=== PATIENT | female | born 1955 | race Caucasian/White ===

== ENCOUNTER 2018-01-08 11:45 | Outpatient (REF) | payer BC, SELFPAY ==
[2018-01-08 23:28] LABS: Cholesterol 207 mg/dL (50-200); HDL Cholesterol 63 mg/dL (40-60); LDL CHOLESTEROL 131 mg/dL (<100); Triglyceride 142 mg/dL (30-150)
== END 2018-01-08 12:05 ==
LOC: NCHCN 11:45
PROVIDERS: PCP Physician Assistant Medical; Visit Provider Physician Assistant Medical
DX: Z00.00 Encounter for general adult medical examination without abnormal findings (principal); Z13.220 Encounter for screening for lipoid disorders
CPT/HCPCS: 80061; 83721

== ENCOUNTER 2018-09-03 14:01 | Outpatient (CLI) | payer BC, SELFPAY ==
[2018-09-03 15:24] LABS: Ferritin 51 ng/mL (8-388)
[2018-09-04 09:58] LABS: Hepatitis C Ab w Rflx HCV PCR Negative (NEGAT)
[2018-09-04 10:57] LABS: HBs Antibody, Quant 13.7 mIU/mL; Hepatitis B Surface Ab Positive
[2018-09-04 11:11] LABS: Hep B Core Antibody Negative (NEGAT)
[2018-09-04 11:29] LABS: Hepatitis B Surface Ag Negative (NEGAT)
== END 2018-09-03 14:21 ==
PROVIDERS: PCP Physician Assistant Medical; Visit Provider Internal Medicine Gastroenterology
DX: K76.0 Fatty (change of) liver, not elsewhere classified (principal)
CPT/HCPCS: 36415; 86704; 86706; 86803; 87340; 82728

== ENCOUNTER 2018-10-24 00:35 | Outpatient (CLI) | payer BC, SELFPAY ==
--- NOTE | 2018-10-24 12:00 | DI.US_ITS ---
SYMPTOMS/DIAGNOSIS: KIDNEY STONES, N20.0, RENAL CYSTS, N28.1 RENAL ULTRASOUND: Comparison is made with CT of the abdomen dated August,. The exam is limited by patient body habitus. The right kidney measures 10.1 cm in length. The left kidney measures 10.0 cm in length. There is normal parenchymal thickness and echogenicity. There is a 10 mm cyst near the lower pole of the right kidney. No calcifications or hydronephrosis is seen. There are no perinephric collections. The prevoid bladder volume measures 238 cc. There is a 5 cc postvoid residual. Both ureteral jets were visualized. No bladder mass or wall thickening is seen. Fatty infiltration of the liver is noted. IMPRESSION: A 10 mm cyst at the lower pole of the right kidney. No stones or hydronephrosis are visible.
== END 2018-10-24 00:55 ==
PROVIDERS: PCP Physician Assistant Medical; Visit Provider Nurse Practitioner Gerontology
DX: N20.0 Calculus of kidney (principal); N28.1 Cyst of kidney, acquired; K76.0 Fatty (change of) liver, not elsewhere classified
CPT/HCPCS: 76770

== ENCOUNTER 2018-11-12 21:27 | Outpatient (REF) | payer BC, SELFPAY | END 2018-11-12 21:47 | LOC: NCHCN 21:27 | PROVIDERS: PCP Physician Assistant Medical; Visit Provider Physician Assistant Medical | DX: R10.9 Unspecified abdominal pain (principal); E03.9 Hypothyroidism, unspecified | CPT/HCPCS: 84443; 87086 ==

== ENCOUNTER 2018-11-19 00:50 | Outpatient (CLI) | payer BC, SELFPAY ==
--- NOTE | 2018-11-19 09:26 | DI.RAD_ITS ---
EXAM: XR LUMBAR SPINE COMPLETE INDICATION: BACK PAIN M54.9. COMPARISON: No exams were available for comparison TECHNIQUE: 2D digital imaging was performed. FINDINGS: There are 5 lumbar type vertebral bodies. There is normal alignment. No spondylolysis or spondyloli sthesis is present. No acute fracture or subluxation is present. There are small endplate osteophyt es present throughout the lumbar spine. Disc heights are well maintained. Mild degenerative changes are seen at the facets from L3-4 through L5-S1 IMPRESSION: Degenerative changes in the lumbar spine.
== END 2018-11-19 01:10 ==
PROVIDERS: PCP Physician Assistant Medical; Visit Provider Physician Assistant Medical
DX: M54.5 Low back pain (principal); M47.816 Spondylosis without myelopathy or radiculopathy, lumbar region
CPT/HCPCS: 72110

== ENCOUNTER 2018-11-26 08:48 | Day surgery (SDC) | payer BC, SELFPAY ==
--- NOTE | 2018-11-26 06:56 | W.COLOREPORT ---
Date of service: 11/26/18 Time of Service: 09:56 Colonoscopy Report Date of procedure: 11/26/18 Pre-op diagnosis general: Colon Cancer Screening Post-op diagnosis procedure note: same Procedure: Colonoscopy Surgeon: Dotty Street Anesthesia proc note operative: other (general/ ASA 2/Valentín Ruiz, ZEB) Estimated blood loss (mL): 0 Pathology: none sent Complications: None Disposition: same day Indications: Mrs. Marx is a pleasant 63 year old female seen in the office for a screening Colonoscopy. Risks, benefits and complications have been reviewed. Complications include but are not limited to bleeding, pain, perforation, missed small lesion/polyp, sore throat, aspiration and adverse reaction to the medications. Questions were entertained and answered to their satisfaction and they wished to proceed. No guarantees were given or implied. Prep: Miralax/Dulcolax Procedure Start Time: :56 Procedure End Time: 10:14 Retraction Time: 12 minutes Findings: Descending and sigmoid diverticulosis Procedure Description: After informed consent was obtained the patient was taken to the procedure room and placed in a left decubitous position. Monitors were applied and a time out was done. The patients name, date of , procedure, allergies to medications and metal in their body was reviewed. The patient was then sedated. Once sedated and comfortable a rectal exam was done. External exam was normal. Internal exam revealed a normal sphincter tone and no palpable masses. The scope was then introduced and retro-flexed. No internal hemorrhoids, masses or polyps were identified on retro-flexion. The scope was then advanced to the cecum without difficulty. The TI and appendiceal orifice were identified. The prep was good. The scope was then slowly retracted over 12 minutes back into the rectum. There were no polyps identified. There was moderate diverticulosis of the descending and sigmoid colon. The scope was removed and the patient was woken up and taken back to Same day surgery in stable condition. The patient tolerated the procedure well and there were no immediate complications. Follow up: The patient should follow up in 10 years unless they develop changes in bowel habits or other new gastrointestinal complaints.
--- NOTE | 2018-11-26 06:58 | W.PM.DSUDISC ---
Discharge Plan Disposition Patient Disposition: HOME Condition: Good Discharge Details Reason For Visit: Colon Cancer Screening Attending Provider: Dotty Street Primary Care Provider: Christine Fuentes Home Meds and New Rx's Prescriptions: Continued Adult 50+ Probiotic 4 billion cell capsule 4,000 mmu cells PO DAILY RF: 0 aspirin [Aspir-81] 81 MG tablet,delayed release (DR/EC) 81 mg PO DAILY RF: 0 levothyroxine 75 MCG tablet 88 mcg PO DAILY RF: 0 amitriptyline 10 MG tablet 20 mg PO DAILY RF: 0 escitalopram oxalate [Lexapro] 10 MG tablet 10 mg PO DAILY RF: 0 multivitamin [Daily Multi-Vitamin] 1 EACH tablet 1 ea PO DAILY RF: 0 fish oil-dha-epa 1 EACH capsule 1 ea PO DAILY RF: 0 cholecalciferol (vitamin D3) [Vitamin D3] 2,000 UNIT capsule 2,000 unit PO DAILY RF: 0 magnesium citrate 100 MG tablet 200 mg PO DAILY RF: 0 bupropion HCl [Wellbutrin] 75 MG tablet 100 mg PO DAILY RF: 0 Discontinued polyethylene glycol 3350 17 gram/dose powder 238 g PO ONCE Qty: 238 RF: 0 bisacodyl [Dulcolax (bisacodyl)] 5 mg tablet,delayed release (DR/EC) 5 mg PO ONCE Qty: 4 RF: 0 Discharge Instructions Instructions: Colonoscopy (DC), Diverticulosis (DC) Additional Instructions: Findings: Diverticulosis Follow up: 10 years Please call if you develop: fevers >101.5 Nausea or Vomiting Abdominal pain that is not transient DAY SURGERY UNIT POST ENDOSCOPY INSTRUCTIONS 1. Because there will be medication in your system for the next 24 hours, you may feel a little sleepy. Your coordination will be affected. Therefore: a. Do not drive or operate dangerous equipment for 24 hours. b. Do not drink alcohol beverages for 24 hours (not even beer). c. Plan to go home and rest for the day. 2. Generally there are no restrictions on your activity after a day or so has gone by, but you may feel a bit fatigued for a few days. 3 After you arrive home you may have a light meal and return to a normal diet as you can tolerate it without feeling sick to your stomach. 4. After surgery, you may feel pain or discomfort. This should be only transient, but if it persists please contact your doctor. 5. If there are any questions regarding the findings of your procedure, please feel free to contact your doctor. 6. If you are unable to contact your doctor with a problem, contact the hospital at [phone]. 7. Continue all your regular medications unless directed otherwise. I understand the above instructions and have no questions. Signature of Patient or Responsible Adult Escort Date/Time Name of Responsible Adult Escort Signature of Nurse Date/Time Activity:: Activity as Tolerated Diet:: High Fiber diet Discharge Orders Discharge Orders: Discharge Order (Routine); Ordered 11/26/18 Ordered By: Dotyt Street DS: Diagnosis Discharge Diagnosis (1) S/P colonoscopy: Status: Acute (2) Diverticulosis: Status: Acute
[2018-11-26 09:01] VITALS: BP 125/91; PULSE 86; RESP 16; TEMP 35.7; O2SAT 96
[2018-11-26] MEDS: Lactated Ringers 1,000 ML 80 ML IV (09:29)
[2018-11-26 10:52] VITALS: BP 117/87; PULSE 81; RESP 16; TEMP 36.2; O2SAT 96
== END 2018-11-26 11:10 | disposition home or self-care (01) ==
LOC: SUR 08:48
PROVIDERS: PCP Physician Assistant Medical; Visit Provider Surgery
PROC: 0DJD8ZZ Inspection of Lower Intestinal Tract, Via Natural or Artificial Opening Endoscopic (ICD-10-PCS; CPT 45378; principal; 2018-11-26 10:15)
DX: Z12.11 Encounter for screening for malignant neoplasm of colon (principal)
CPT/HCPCS: 45378; J2250; J3010

== ENCOUNTER 2019-01-14 10:44 | Outpatient (REF) | payer BC, SELFPAY ==
[2019-01-14 22:28] LABS: ALT 45 U/L (14-59); AST 26 U/L (15-37); Albumin 3.9 g/dL (3.4-5.0); Alkaline Phosphatase 74 U/L (46-116); Anion Gap 11.4 mmol/L (3-11); BUN 19 mg/dL (7-18); Bilirubin, Total 0.3 mg/dL (0.2-1.0); CO2 24.6 mmol/L (21.0-32.0); CREATININE 0.99 mg/dL (0.55-1.02); Calcium 9.2 mg/dL (8.5-10.1); Calculated LDL 142 mg/dL; Chloride 107 mmol/L (98-107); Cholesterol 228 mg/dL (<200); Estimated GFR 56.84 (mL/min/1.73m2); Glucose 95 mg/dL (74-106); HDL Cholesterol 61 mg/dL (40-60); Potassium 4.4 mmol/L (3.5-5.1); Sodium 143 mmol/L (136-145); Total Protein 7.7 g/dL (6.4-8.2); Triglyceride 129 mg/dL (<150)
== END 2019-01-14 11:04 ==
LOC: NCHCN 10:44
PROVIDERS: PCP Physician Assistant Medical; Visit Provider Physician Assistant Medical
DX: Z00.00 Encounter for general adult medical examination without abnormal findings (principal); Z13.220 Encounter for screening for lipoid disorders
CPT/HCPCS: 80053; 80061

== ENCOUNTER 2019-04-15 14:47 | Outpatient (REF) | payer BC, SELFPAY ==
[2019-04-15 19:58] LABS: Bilirubin Negative (Negative); Blood Small (Negative); Clarity Clear (Clear); Glucose Negative (Negative); Ketones Negative (Negative); Leukocyte Esterase Trace (Negative); Nitrite Negative (Negative); Specific Gravity >= 1.030 (1.005-1.025); Urobilinogen 0.2 EU/dL (Up TO 0.2)
[2019-04-15 20:00] LABS: C & S Indicated? C&S Done As Ordered
[2019-04-15 20:03] LABS: Anion Gap 12.4 mmol/L (3-11); BUN 20 mg/dL (7-18); CO2 23.6 mmol/L (21.0-32.0); Calcium 9.3 mg/dL (8.5-10.1); Calculated LDL 105 mg/dL (<100); Chloride 106 mmol/L (98-107); Cholesterol 205 mg/dL (<200); Glucose 96 mg/dL (74-106); HDL Cholesterol 65 mg/dL (40-60); Potassium 4.5 mmol/L (3.5-5.1); Sodium 142 mmol/L (136-145); Triglyceride 176 mg/dL (<150)
[2019-04-15 20:09] LABS: Bacteria Few HPF (Negative); Casts Negative LPF (Negative); Crystals Moderate Amorphous HPF (Negative); Epithelial Cells Many HPF (Negative); Mucus Negative (Negative)
== END 2019-04-15 15:07 ==
LOC: NCHCN 14:47
PROVIDERS: PCP Physician Assistant Medical; Visit Provider Nurse Practitioner Family
DX: R10.9 Unspecified abdominal pain (principal); Z13.220 Encounter for screening for lipoid disorders
CPT/HCPCS: 80048; 80061; 81003; 81015; 87086

== ENCOUNTER 2019-06-20 20:18 | Emergency (ER) | payer BC, SELFPAY ==
[2019-06-20 20:22] VITALS: BP 158/104; PULSE 94; RESP 14; TEMP 36.9; O2SAT 95
--- NOTE | 2019-06-20 20:39 | W.ED.GENAD ---
Discharge Plan Disposition Patient Disposition: HOME Condition: Stable Discharge Details Chief Complaint: EyeProblem Clinical Impression: Subconjunctival hemorrhage of left eye Primary Care Provider: Christine Fuentes ED Provider: Yael Hodge Home Meds and New Rx's Prescriptions: Continued Adult 50 Plus Probiotic 4 billion cell capsule 4,000 mmu cells PO DAILY RF: 0 aspirin [Aspir-81] 81 MG tablet,delayed release (DR/EC) 81 mg PO DAILY RF: 0 levothyroxine 75 MCG tablet 88 mcg PO DAILY RF: 0 amitriptyline 10 MG tablet 20 mg PO DAILY RF: 0 escitalopram oxalate [Lexapro] 10 MG tablet 10 mg PO DAILY RF: 0 multivitamin [Daily Multi-Vitamin] 1 EACH tablet 1 ea PO DAILY RF: 0 fish oil-dha-epa 1 EACH capsule 1 ea PO DAILY RF: 0 cholecalciferol (vitamin D3) [Vitamin D3] 2,000 UNIT capsule 2,000 unit PO DAILY RF: 0 magnesium citrate 100 MG tablet 200 mg PO DAILY RF: 0 bupropion HCl [Wellbutrin] 75 MG tablet 100 mg PO DAILY RF: 0 Liver Complex 250-250 mg Tablet PO DAILY RF: 0 Discharge Instructions Instructions: Subconjunctival Hemorrhage (ED) Additional Instructions: Consider cool compresses to your eye. Avoid irritating rubbing your eye. Expect resolution in the next 2 to 3 weeks. For any vision change, eye pain, drainage from the eye, worsening or alarming symptoms have immediate reevaluation in the emergency room as discussed. Return sooner if needed Medical Decision Making This is a 64-year-old patient presenting to the emergency room for complaints of a mild sensation of foreign body in left eye then patient rubbed her eye, looked in the mirror and noted an area of blood on the medial aspect of her left eye. Patient denies any vision changes, eye pain, headaches or dizziness. Denies any hypertensive symptoms at this time. On exam patient is a notable left subconjunctival hemorrhage with chemosis. Patient's visual acuity preformed. Patient's extraocular motions intact, PERRLA. Funduscopic exam is normal. Patient denies any history of easy bleeding or bruising. Patient does take a daily aspirin. Denies any obvious trauma outside of rubbing her eye. Patient does report feeling extremely anxious regarding coming to the emergency room and does report some underlying anxiety regarded Covid isolation. Patient's only medication change recently was increasing her magnesium from 200 mg daily to 600 mg daily to help assist with some difficulty sleeping at night due to anxiety. On initial exam patient does have a notable sub-conjunctiva hemorrhage. Patient's visual acuity is 20/40 bilaterally. Patient is noted to be mildly hypertensive at 158/104 with a heart rate of 94 on evaluation but again reports feeling quite anxious reports she is typically normotensive and takes no blood pressure medications. Her daily medications were reviewed. We will plan to recheck blood pressure. Dr. Reyes did also evaluate this patient; patient exam consistent with subconjunctival hemorrhage with chemosis. Recommended compresses and conservative treatment. Patient's blood pressure reevaluated and noted to be 140/95 heart rate improved to 88. Nothing to indicate hypertensive emergency at this time. Blood pressure improved likely mildly elevated on arrival due to anxiety. Likely spontaneous of conjunctival hemorrhage to the use of aspirin or secondary to rubbing her eye. we will plan to discharge home with recommendation for cool compresses, sensation of improvement in the next few weeks and return for any worsening or concerns. Patient refused plan of care. The patient was stable and requested discharge. Prior to discharge, my usual and customary return precautions were reviewed with the patient - this included follow-up instructions and reasons to return to the Emergency Department if conditions worsens, does not improve as expected, or other new concerns arise. HPI General Date/Time Provider Initiated Documentation: 06/20/19 20:18. HPI Narrative: Is a 64-year-old patient presenting to the emergency room for 1 hour of concerns of left eye. Patient reports she was sitting in her chair rubbed her eye after noting mild foreign body sensation. Patient looked in the mirror and noted an area of swelling and a blood spot to the medial aspect of her left eye. Patient denies any eye pain. Patient denies vision change, blurred vision or double vision. Patient denies headache or dizziness. Denies any balance changes. Patient denies chest pain, difficulty beating shortness of breath or wheezing. Patient denies history of similar. Does use daily aspirin. Denies additional blood thinners. Patient reports only medication change recently was increasing magnesium dose from 200 mg to 600 mg due to difficulty sleeping and anxiety regarding Covid isolation. Patient denies any foreign body sensation. Patient denies easy bruising, gum bleeding when brushing teeth, vaginal bleeding. Denies known GI bleeding. Related Data Home Medications Medication Instructions Recorded Confirmed amitriptyline 20 mg PO DAILY tab-cap NS 07/13/12 06/20/19 aspirin [Aspir-81] 81 mg PO DAILY tab-cap NS 07/13/12 06/20/19 escitalopram oxalate [Lexapro] 10 mg PO DAILY tab-cap NS 07/13/12 06/20/19 levothyroxine 88 mcg PO DAILY NS 07/13/12 06/20/19 bupropion HCl [Wellbutrin] 100 mg PO DAILY 09/05/17 06/20/19 cholecalciferol (vitamin D3) 2,000 unit PO DAILY 09/11/17 06/20/19 [Vitamin D3] fish oil-dha-epa 1 ea PO DAILY 09/11/17 06/20/19 magnesium citrate 200 mg PO DAILY 09/11/17 06/20/19 multivitamin [Daily Multi-Vitamin] 1 ea PO DAILY 09/11/17 06/20/19 lactobacillus combination no.9 4 4,000 mmu cells PO DAILY 11/08/18 06/20/19 billion cell capsule Liver Complex mg PO DAILY 06/20/19 Allergies Allergy/AdvReac Type Severity Reaction Status Date / Time nitrofurantoin Allergy Intermediate Rash, Verified 06/20/19 20:31 [From Macrobid] doesn't feel well nitrofurantoin Allergy Intermediate Rash, Verified 06/20/19 20:31 macrocrystalline doesn't [From Macrobid] feel well zolpidem [From Ambien] Allergy Intermediate unknown Verified 06/20/19 20:31 General Stated Complaint: EyeProblem KUSHAL: 3 Review of Systems All systems reviewed & are unremarkable except as noted in HPI and below Constitutional Constitutional: Denies fatigue, Denies frequent falls, Denies headache(s) and Denies malaise Eyes Eyes: Denies blind spots, Denies blurry vision, Denies change in vision, Denies diplopia, Denies eye discharge, Reports irritation, Denies itchy eyes, Denies other visual disturbances, Denies eye pain, Denies seeing flashes and Denies photophobia ENT Ears, Nose, Mouth, and Throat: Denies abnormal hearing, Denies vertigo, Denies dizziness, Denies headache(s), Denies neck pain and Denies disequilibrium Cardiovascular Cardiovascular: Denies chest pain, Denies syncope, Denies lightheadedness, Denies palpitations and Denies dyspnea Respiratory Respiratory: Denies chest congestion, Reports cough and Denies dyspnea Gastrointestinal Gastrointestinal: Denies nausea and Denies vomiting Musculoskeletal Musculoskeletal: Denies neck pain and Denies tingling Neurologic Neurologic: Denies abnormal hearing, Denies vertigo, Denies dizziness, Denies syncope, Denies frequent falls, Denies headache(s), Denies tingling and Denies disequilibrium Endocrine Endocrine: Denies fatigue and Denies palpitations Allergic/Immunologic Allergic/Immunologic: Denies itchy eyes [facility] Medical History Atypical hyperplasia of left breast (Acute) Diverticulosis (Acute) Diverticulosis (Acute) Ductal carcinoma in situ (DCIS) of right breast (Acute) Fatty liver disease, nonalcoholic (Acute) Hernia (Chronic) umbilical hernia History of kidney stones (Acute) IBS (irritable bowel syndrome) (Chronic) Surgical History H/O bilateral mastectomy (Acute) History of section (Chronic) S/P colonoscopy (Acute ~11/26/18) Social History Smoking/Tobacco Use Status: Never Alcohol Intake: current Alcohol Intake frequency: holidays/special occasions only Substance use type: does not use Current gender identity: female Do you feel safe at home: Yes Do you feel safe in your relationship?: Yes Exam Narrative Exam Narrative: CONST: Healthy appearing patient, in no acute distress. Well hydrated. Alert and oriented. HENMT: Head nomocephalic, normal to inspection. Atraumatic. Hearing grossly normal. TMs appear normal bilaterally, pharynx appears normal. EYES: General normal appearance. Alignment normal. Eyelids normal. Some conjunctival hemorrhage noted to the medial aspect of the left eye with chemosis. PERRLA. No peripheral field loss. Funduscopic exam normal. Extraocular motion intact. NECK: Normal visual inspection. FROM. Trachea midline. CHEST: Normal insepection of the chest. RESP: Normal respiratory effort. Speaking full sentences. No cough. No audible wheezing. No retractions. CARDIO: No JVD. SKIN: Normal. Dry. No rashes. NEURO: Alert and awake. Speech clear. PSYCH: Normal affect. Cooperative. Course Vital Signs Vital signs: Vital Signs Temperature 36.9 C 06/20/19 20:22 Pulse 94 H 06/20/19 20:22 Respiratory Rate 14 06/20/19 20:22 Blood Pressure 158/104 H 06/20/19 20:22 Pulse Oximetry 95 06/20/19 20:22 Temperature 36.9 C 06/20/19 20:22 Temperature Source Skin 06/20/19 20:22 Pulse 94 H 06/20/19 20:22 Respiratory Rate 14 06/20/19 20:22 Blood Pressure 158/104 H 06/20/19 20:22 Blood Pressure Position Sitting 06/20/19 20:22 Pulse Oximetry 95 06/20/19 20:22 Oxygen Delivery Method Room Air 06/20/19 20:22 Oxygen Flow Rate 0 06/20/19 20:22 Comment 06/20/19 20:22
[2019-06-20 21:03] VITALS: BP 140/95; PULSE 88; RESP 16; O2SAT 98
== END 2019-06-20 21:30 | disposition home or self-care (01) ==
PROVIDERS: Emergency Provider Physician Assistant; PCP Physician Assistant Medical
DX: H11.32 Conjunctival hemorrhage, left eye (principal); Z79.82 Long term (current) use of aspirin
CPT/HCPCS: 99283; 99281

== ENCOUNTER 2019-10-29 11:21 | Emergency (ER) | payer BC, SELFPAY ==
--- NOTE | 2019-10-29 11:30 | RT.EKG_ITS ---
APPROVED REPORT Exam: Resting ECG Patient Location: E HR:81 bpm ECG Measurements Heart Rate 81 AXIS TN 153 P 38 QRSd 88 QRS 24 QT 393 T 12 QTc 457 Conclusion Sinus rhythm...normal P axis, V-rate 60- 99
[2019-10-29 11:38] VITALS: BP 157/95; PULSE 78; TEMP 36.6; O2SAT 99
--- NOTE | 2019-10-29 11:45 | DI.CT_ITS ---
EXAM: CT HEAD WO CLINICAL HISTORY: Headache, vomiting. TECHNIQUE: Imaging Protocol: Axial computed tomography images with coronal and sagittal reformatted images were created and reviewed COMPARISON: No exams were available for comparison FINDINGS: Ventricles and Extra axial spaces: Normal in size and morphology for the patient's age. Hemorrhage: None. Cerebral parenchyma: Normal. Midline shift: None. Brainstem/Cerebellum: Normal. Calvarium: Normal. Visualized Paranasal sinuses/Mastoids: Clear. Soft Tissues: Unremarkable. IMPRESSION: No acute intracranial process. RADIATION DOSE DELIVERED: Total DLP DATA REPOSITORY: All CT scans at this facility are submitted to the National Radiology Data Registry (NRDR) Dose Index Registry (DIR) with the [employer] ([employer]). RADIATION OPTIMIZATION: All CT scans at this facility use at least one of these dose optimization te chniques: automated exposure control; mA and/or kV adjustment per patient size (includes targeted exa ms where dose is matched to clinical indication); or iterative reconstruction.
--- NOTE | 2019-10-29 12:15 | W.ED.GENAD ---
Discharge Plan Disposition Patient Disposition: HOME Condition: Stable Discharge Details Chief Complaint: Headache Clinical Impression: Headache Primary Care Provider: Christine Fuentes ED Provider: Anabell Nicole Home Meds and New Rx's Prescriptions: New prochlorperazine maleate 5 mg tablet 5 mg PO TID PRN (Reason: nausea and vomiting) Qty: 10 RF: 0 No Action Adult 50 Plus Probiotic 4 billion cell capsule 4,000 mmu cells PO DAILY RF: 0 aspirin [Aspir-81] 81 MG tablet,delayed release (DR/EC) 81 mg PO DAILY RF: 0 levothyroxine 75 MCG tablet 88 mcg PO DAILY RF: 0 amitriptyline 10 MG tablet 20 mg PO DAILY RF: 0 escitalopram oxalate [Lexapro] 10 MG tablet 10 mg PO DAILY RF: 0 multivitamin [Daily Multi-Vitamin] 1 EACH tablet 1 ea PO DAILY RF: 0 fish oil-dha-epa 1 EACH capsule 1 ea PO DAILY RF: 0 cholecalciferol (vitamin D3) [Vitamin D3] 2,000 UNIT capsule 2,000 unit PO DAILY RF: 0 magnesium citrate 100 MG tablet 200 mg PO DAILY RF: 0 bupropion HCl [Wellbutrin] 75 MG tablet 100 mg PO DAILY RF: 0 Liver Complex 250-250 mg Tablet 250 mg PO DAILY RF: 0 Discharge Instructions Instructions: General Headache (ED) Additional Instructions: Follow up with primary care provider in 3-5 days. Return to ED sooner if any worsening or concerns. Increase oral fluids. Please take Tylenol or Ibuprofen with food every 4-6 hours as needed for pain and swelling. Take prescribed medications as directed. Return to the ED for any worsening headache, confusion, fever, return of vomiting, any concerns. Referrals: Christine Fuentes PA [Primary Care Provider] - Discharge Data Discharge Date/Time-TO BE ENTERED AT DEPARTURE: 10/29/19 15:13 Medical Decision Making 64-year-old female presents to the ER with chief complaint of headache associated with nausea vomiting and diarrhea began at 3:00 this morning. She does have a history of migraines. She has no focal neuro deficits on exam, no facial droop no numbness tingling in her extremities. 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 At this time CT head ordered labs and will give medications. Differential diagnosis includes migraine headache, tension headache, CVA EXAM: CT HEAD WO CLINICAL HISTORY: Headache, vomiting. TECHNIQUE: Imaging Protocol: Axial computed tomography images with coronal and sagittal reformatted images were created and reviewed COMPARISON: No exams were available for comparison FINDINGS: Ventricles and Extra axial spaces: Normal in size and morphology for the patient's age. Hemorrhage: None. Cerebral parenchyma: Normal. Midline shift: None. Brainstem/Cerebellum: Normal. Calvarium: Normal. Visualized Paranasal sinuses/Mastoids: Clear. Soft Tissues: Unremarkable. IMPRESSION: No acute intracranial process. 1348: Patient reevaluation, states that her headache is better she appears much more comfortable. Discussed head CT results and labs, verbalized understanding. Discussed home care and follow-up with PCP. Patient has received approximately 800 cc of normal saline at this time. Will order 1 additional pain medications prior to discharge. Patient remained hemodynamically stable throughout stay discuss strict return instructions, verbalized understanding. This text was generated using [employer] dictation system, please disregard any oddities of phrase or misspellings. HPI General Mode of arrival: ambulatory. Date/Time Provider Initiated Documentation: 10/29/19 11:25. Limitations to Documentation: no limitations. Information obtained by: patient. HPI Narrative: 64-year-old female presents to the ER with chief complaint of headache. She does have a history of migraines but has not had one for a while. She states that the head pain awoke her up out of sleep she reports frontal headache which radiates down the sides of her face and into the back of her neck. She does usually have neck pain with her migraines. Associated with vomiting and diarrhea. Denies any fever chills or any recent illnesses. She did not take any medications prior to arrival. Related Data Home Medications Medication Instructions Recorded Confirmed amitriptyline 20 mg PO DAILY tab-cap NS 07/13/12 10/29/19 aspirin [Aspir-81] 81 mg PO DAILY tab-cap NS 07/13/12 10/29/19 escitalopram oxalate [Lexapro] 10 mg PO DAILY tab-cap NS 07/13/12 10/29/19 levothyroxine 88 mcg PO DAILY NS 07/13/12 10/29/19 bupropion HCl [Wellbutrin] 100 mg PO DAILY 09/05/17 10/29/19 cholecalciferol (vitamin D3) 2,000 unit PO DAILY 09/11/17 10/29/19 [Vitamin D3] fish oil-dha-epa 1 ea PO DAILY 09/11/17 10/29/19 magnesium citrate 200 mg PO DAILY 09/11/17 10/29/19 multivitamin [Daily Multi-Vitamin] 1 ea PO DAILY 09/11/17 10/29/19 lactobacillus combination no.9 4 4,000 mmu cells PO DAILY 11/08/18 10/29/19 billion cell capsule Liver Complex 250 mg PO DAILY 06/20/19 prochlorperazine maleate 5 mg PO TID PRN #10 tab 10/29/19 Previous Rx's Medication Instructions Recorded prochlorperazine maleate 5 mg PO TID PRN #10 tab 10/29/19 Allergies Allergy/AdvReac Type Severity Reaction Status Date / Time nitrofurantoin Allergy Intermediate Rash, Verified 10/29/19 11:45 [From Macrobid] doesn't feel well nitrofurantoin Allergy Intermediate Rash, Verified 10/29/19 11:45 macrocrystalline doesn't [From Macrobid] feel well zolpidem [From Ambien] Allergy Intermediate unknown Verified 10/29/19 11:45 General Stated Complaint: Headache KUSHAL: 3 Review of Systems Narrative: Constitutional: Negative for weight loss, alert and oriented, well groomed, normal body habitus, appears comfortable. HEENT: Denies trauma, blurry vision, nasal discharge, sore throat, trouble swallowing. Headache which began today 3 in the morning does have a history of migraines. Chest: Denies chest pain, palpitations, irregular rhythm, hypertension. Respiratory: Denies Shortness of breath, cough, hemoptysis. GI: Denies abdominal pain, constipation. Positive nausea vomiting diarrhea. : Denies dysuria, hematuria, flank pain, rectal bleeding. Neuro: Denies dizziness, blurry vision, weakness, syncope, or facial numbness. Hematologic: Denies easy bruising, intolerance to heat or cold, hair loss. 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) Fatty liver disease, nonalcoholic (Acute) Hernia (Chronic) umbilical hernia History of kidney stones (Acute) IBS (irritable bowel syndrome) (Chronic) Surgical History H/O bilateral mastectomy (Acute) History of section (Chronic) S/P colonoscopy (Acute ~11/26/18) Social History Smoking/Tobacco Use Status: Never Alcohol Intake: current Alcohol Intake frequency: holidays/special occasions only Substance use type: does not use Current gender identity: female Do you feel safe at home: Yes Do you feel safe in your relationship?: Yes Exam Narrative Exam Narrative: Constitutional: Alert and oriented x3. Appears stated age. Normal body habitus. Head: Normocephalic, no trauma. Eyes: Pupils PERRLA, Red reflex noted, EOM's intact. Eyelids symmetrical without lesions, discharge, or swelling. ENT: Bilateral TM's WNL, External ear normal to inspection, no mastoid TTP, swelling, or erythema, Nasal turbinates WNL, no nasal discharge. Normal dentition, Posterior pharynx WNL, no exudate. Chest: RRR, Normal S1, S2, distal pulses intact. Resp: Lungs clear to auscultation bilaterally, no wheezes, rales, or rhonchi. Musculoskeletal: Normal gait, 5/5 strength to all four extremities. Skin: No suspicious rashes or lesions. Capillary refill less than 2 sec. Neurologic: Cranial nerves II-XII intact. Alert and oriented x 3. DTR's intact. Hematologic/Lymphatic: No ecchymosis, no lymphadenopathy. Course Vital Signs Vital signs: Vital Signs Temperature 36.6 C 10/29/19 11:38 Pulse 78 10/29/19 11:38 Blood Pressure 157/95 H 10/29/19 11:38 Pulse Oximetry 99 10/29/19 11:38 Temperature 36.6 C 10/29/19 11:38 Temperature Source Oral 10/29/19 11:38 Pulse 78 10/29/19 11:38 Respiratory Effort Non-Labored 10/29/19 11:56 Blood Pressure 157/95 H 10/29/19 11:38 Pulse Oximetry 99 10/29/19 11:38 Oxygen Delivery Method Room Air 10/29/19 11:38 Oxygen Flow Rate 0 10/29/19 11:38 Pain Level 10 10/29/19 11:38
[2019-10-29 13:00] LABS: Abs Immature Grans 0.02 10^3/uL (0.0-0.06); Absolute Basophil Count 0.02 10^3/uL (0.0-0.2); Absolute Lymphocyte Count 1.12 10^3/uL (1.2-3.4); Absolute Monocyte Count 0.14 10^3/uL (0.1-0.8); Absolute Neutrophil Count 4.86 10^3/uL (1.2-6.7); Basophils % 0.3; HCT 43.1 % (36.0-46.0); HGB 14.7 g/dL (11.2-15.7); Immature Grans % 0.3; Lymphocytes % 18.2; MCH 31.1 pg (27.0-33.0); MCHC 34.1 % (32.0-36.0); MCV 91.3 fL (80-95); MPV 11.2 fL (8.0-11.0); Monocytes % 2.3; Neutrophils % 78.9; Nucleated RBC 0 %; Platelet Count 210 10^3/uL (130-400); RBC 4.72 10^6/uL (3.93-5.22); RDW 13.2 % (11.7-14.6); RDW-SD 44.7 fL; WBC 6.16 10^3/uL (4.4-10.8)
[2019-10-29] MEDS: Normal Saline 1,000 ML 1000 ML IV (13:16)
[2019-10-29] MEDS: diphenhydrAMINE 50 MG/ML VIAL 25 MG IVP (13:16)
[2019-10-29] MEDS: Normal Saline Flush 10 ML SYR IVP ×2 (13:16→14:12)
[2019-10-29] MEDS: Ketorolac 30 MG/ML VIAL IVP (13:16)
[2019-10-29] MEDS: Prochlorperazine 10 MG/2 ML VIAL IVP (13:17)
[2019-10-29 13:26] LABS: ALT 47 U/L (14-59); AST 27 U/L (15-37); Albumin 3.6 g/dL (3.4-5.0); Alkaline Phosphatase 74 U/L (46-116); BUN 27 mg/dL (7-18); Bilirubin, Total 0.3 mg/dL (0.2-1.0); CREATININE 0.96 mg/dL (0.55-1.02); Calcium 9.3 mg/dL (8.5-10.1); Chloride 104 mmol/L (98-107); Glucose 146 mg/dL (74-106); Potassium 4.1 mmol/L (3.5-5.1); Sodium 137 mmol/L (136-145)
[2019-10-29] MEDS: fentaNYL 100 MCG/2 ML VIAL 25 MCG IVP (14:11)
[2019-10-29 15:15] VITALS: BP 131/82; PULSE 91; O2SAT 95
== END 2019-10-29 15:13 | disposition home or self-care (01) ==
PROVIDERS: Emergency Provider Registered Nurse Emergency; PCP Physician Assistant Medical
DX: R51 Headache (principal)
CPT/HCPCS: 80053; 93005; 96361; 96374; 96375; 99284; 70450; 85025; 93010; J0780; J1200; J1885; J3010

== ENCOUNTER 2019-11-05 00:42 | Outpatient (CLI) | payer BC, SELFPAY ==
--- NOTE | 2019-11-05 08:20 | DI.RAD_ITS ---
EXAM: XR ABDOMEN FLAT PLATE CLINICAL HISTORY: MONITORING KIDNEY STONES,H/O RENAL CALCULI,Z87.442 TECHNIQUE: COMPARISON: CT ABD/PELVIS WO W CONTRAST from 09/14/2017 FINDINGS: Three views were obtained. Bowel gas pattern is unremarkable. There are faint calcifications overly ing the lower pole of the left kidney probably representing nephrolithiasis and these appear to have been present on prior CT of August 2017. No other significant findings. IMPRESSION: RADIATION DOSE DELIVERED: Total DLP
== END 2019-11-05 01:02 ==
PROVIDERS: PCP Physician Assistant Medical; Visit Provider Nurse Practitioner Gerontology
DX: N20.0 Calculus of kidney (principal)
CPT/HCPCS: 74018

== ENCOUNTER 2019-11-18 03:07 | Outpatient (CLI) | payer BC, SELFPAY ==
[2019-11-18 08:37] LABS: Hemoglobin A1C 5.4 % (<5.7)
[2019-11-18 09:47] LABS: ALT 45 U/L (14-59); AST 28 U/L (15-37); Albumin 3.5 g/dL (3.4-5.0); Alkaline Phosphatase 66 U/L (46-116); Anion Gap 10.1 mmol/L (3-11); BUN 22 mg/dL (7-18); Bilirubin, Total 0.5 mg/dL (0.2-1.0); CO2 23.9 mmol/L (21.0-32.0); CREATININE 1.13 mg/dL (0.55-1.02); Calcium 9.3 mg/dL (8.5-10.1); Chloride 106 mmol/L (98-107); Estimated GFR 48.63 (mL/min/1.73m2); Glucose 103 mg/dL (74-106); Potassium 4.6 mmol/L (3.5-5.1); Sodium 140 mmol/L (136-145); Total Protein 7.1 g/dL (6.4-8.2)
[2019-11-19 18:00] LABS: TSH 2.57 uIU/mL (0.36-3.74)
== END 2019-11-18 03:27 ==
PROVIDERS: PCP Physician Assistant Medical; Visit Provider Naturopath
DX: R73.09 Other abnormal glucose (principal); E03.9 Hypothyroidism, unspecified
CPT/HCPCS: 36415; 80053; 83036; 84443

== ENCOUNTER 2019-12-11 01:00 | Outpatient (CLI) | payer BC, SELFPAY ==
--- NOTE | 2019-12-11 | DI.CT_ITS ---
EXAM: CT ABDOMEN PELVIS W CLINICAL HISTORY: ABD PAIN, R10.9, DCIS RT BREAST, D05.11. TECHNIQUE: Imaging Protocol: Axial computed tomography images with coronal and sagittal reformatted images were created and reviewed CONTRAST MATERIAL: Intravenous: Omnipaque 350 Contrast volume:100 Oral: yes / COMPARISON: CT ABD/PELVIS WO W CONTRAST from 09/14/2017 FINDINGS: ABDOMEN: Lung Bases: Normal where visualized. Liver: Normal density. No measurable mass. Gallbladder and biliary tract: No radiodense calculus or dilation. Pancreas: Normal density, no abnormal calcifications or inflammatory process. Spleen: Normal. Kidneys: Normal size, contour and axis. No r obstructive uropathy. No masses seen. Small cyst lower p ole right kidney. Two tiny stones lower pole left kidney. Adrenal glands: No masses seen. Abdominal Aorta: Abdominal portion non-dilated. Minimal calcification. Soft tissues: There is a small hernia at the umbilicus containing mostly fat. A small portion of sma ll bowel enters the hernia and does not appear obstructed. PELVIS: Bladder: Symmetric distention, no gross wall thickening. Bowel: No obstruction or bowel wall thickening. There is mild diverticulosis of the lower descending and sigmoid colon. Normal appendix. Peritoneal cavity: No ascites, collection or mesenteric inflammatory response. Bones: Within normal limits. Reproductive organs: Within normal limits. Lymph nodes: Unremarkable. Impression: Small umbilical hernia containing a small portion of bowel.. RADIATION DOSE DELIVERED: 1,352.96mGy.cm Total DLP DATA REPOSITORY: All CT scans at this facility are submitted to the National Radiology Data Registry (NRDR) Dose Index Registry (DIR) with the [employer] (ACR). RADIATION OPTIMIZATION: All CT scans at this facility use at least one of these dose optimization te chniques: automated exposure control; mA and/or kV adjustment per patient size (includes targeted exa ms where dose is matched to clinical indication); or iterative reconstruction.
[2019-12-11] MEDS: Omnipaque 350 MG/ML 50 ML BTL IJ (09:03)
[2019-12-11] MEDS: Breeza Beverage 473 ML BTL PO ×2 (09:04→09:05)
[2019-12-11] MEDS: Omnipaque 350 MG/ML 100 ML BTL IV (09:24)
== END 2019-12-11 01:20 ==
PROVIDERS: PCP Physician Assistant Medical; Visit Provider Physician Assistant Medical
DX: K42.9 Umbilical hernia without obstruction or gangrene (principal); D05.11 Intraductal carcinoma in situ of right breast
CPT/HCPCS: 74177; J3490; Q9967

== ENCOUNTER 2020-01-13 03:37 | Outpatient (CLI) | payer BC, SELFPAY ==
[2020-01-13 10:40] LABS: ALT 32 U/L (14-59); AST 23 U/L (15-37); Albumin 3.6 g/dL (3.4-5.0); Alkaline Phosphatase 70 U/L (46-116); Anion Gap 12.1 mmol/L (3-11); BUN 21 mg/dL (7-18); Bilirubin, Total 0.3 mg/dL (0.2-1.0); CO2 24.9 mmol/L (21.0-32.0); CREATININE 0.98 mg/dL (0.55-1.02); Calcium 9.1 mg/dL (8.5-10.1); Chloride 106 mmol/L (98-107); Estimated GFR 57.32 (mL/min/1.73m2); Glucose 94 mg/dL (74-106); Potassium 4.4 mmol/L (3.5-5.1); Sodium 143 mmol/L (136-145); Total Protein 7.2 g/dL (6.4-8.2)
== END 2020-01-13 03:57 ==
PROVIDERS: PCP Physician Assistant Medical; Visit Provider Naturopath
DX: K58.8 Other irritable bowel syndrome (principal); R94.4 Abnormal results of kidney function studies; K42.9 Umbilical hernia without obstruction or gangrene
CPT/HCPCS: 36415; 80053

== ENCOUNTER 2020-04-10 19:52 | Outpatient (REF) | payer BC, SELFPAY | END 2020-04-10 19:53 | disposition home or self-care (01) | LOC: NCHCN 19:52 | PROVIDERS: PCP Physician Assistant Medical; Visit Provider Physician Assistant Medical | DX: N39.0 Urinary tract infection, site not specified (principal) | CPT/HCPCS: 87086 ==

== ENCOUNTER 2020-11-02 02:50 | Outpatient (CLI) | payer BC, SELFPAY ==
--- NOTE | 2020-11-02 07:30 | DI.RAD_ITS ---
Exam(s) XR ABDOMEN FLAT PLATE EXAM: 2D digital imaging was performed. CLINICAL HISTORY: monitoring stones/cyst, HX RENAL CALCULI, Z87.442, N28.1, N20.0. COMPARISON: CT CT ABDOMEN PELVIS W from 12/11/2019 TECHNIQUE: Supine views of the abdomen performed. FINDINGS: BOWEL GAS PATTERN: Nondistended. CALCIFICATIONS: Kidneys partially obscured by stool and bowel gas. 4 millimeter stone projects over lower pole left kidney. OSSEOUS STRUCTURES: Normal for age. OTHER FINDINGS: No organomegaly. IMPRESSION: 1. Nonobstructive bowel gas pattern. 2. Small stone lower pole left kidney. DATA REPOSITORY: RADIATION DOSE DELIVERED:
== END 2020-11-02 03:10 ==
PROVIDERS: PCP Physician Assistant Medical; Visit Provider Nurse Practitioner Gerontology
DX: N20.0 Calculus of kidney (principal); N28.1 Cyst of kidney, acquired; Z87.442 Personal history of urinary calculi
CPT/HCPCS: 74018

== ENCOUNTER 2020-12-08 13:07 | Outpatient (REF) | payer BC, SELFPAY ==
--- OUTSIDE RECORDS SUMMARY | 2020-12-08 13:19 | XMS_ITS ---
:1955 Author Organization [facility] Address [address], [address] [place] [address] Care Team Providers Name Role Phone Drea Vargas Unavailable Unavailable PROBLEMS Type Condition ICD9-CM Code [id number] Onset Condition SNOMED Code Code Dates Status Problem Postmenopausal N95.2 Active 32324 000 atrophic vaginitis Problem Rectocele N81.6 Active [id number] ALLERGIES Substance Reaction Event Type Date Status Macrobid Unknown Drug Allergy Aug, Active Ambien Unknown Drug Allergy Aug, Active ENCOUNTERS Encounter Location Date Diagnosis [facility] [address] [place] [address], [address] Aug, 2018 Rect ocele N81.6 [address] [place], [place] Postmeno pausal atrophic [address] vaginitis N95.2 IMMUNIZATIONS No Known Immunizations SOCIAL HISTORY Qualifiers Date Never Smoker REASON FOR REFERRAL FUNCTIONAL STATUS PLAN OF CARE Activity Details Follow Up prn Reason: VITAL SIGNS Height 63 in 2018-09-05 Weight 171 lbs 2018-09-05 BMI 30.29 kg/m2 2018-09-05 Blood pressure systolic 122 2018-09-05 Blood pressure diastolic 82 2018-09-05 MEDICATIONS Medication Instructions Dosage Frequency Start Date End Date Duration S tatus Fish Oil Active Multivitamin Active Hydrocortisone Active Probiotic Active Ketoconazole Active Wellbutrin Active Levothyroxine Sodium Act jorje Baby Aspirin Active Magnesium Active Lexapro Active Amitriptyline HCl Active Vitamin D Active PROCEDURES No Known procedures RESULTS No Results REASON FOR VISIT new pt; rectocele consult Insurance Providers Formerly [facility] Health Member Patient Patient Patient Patient Patient Subscriber Subscriber Subscriber Group Insurance Plan Plan Plan Plan ID Relationship Address Phone Name Date of ID Name Date of No Type Insurance Insurance Insurance Coverage to Subscriber Address Phone Name Dates [place] [phone] [place] self Cecilia [id number] [address] [address] [place] [address]
== END 2020-12-08 13:08 | disposition home or self-care (01) ==
LOC: NCHCN 13:07
PROVIDERS: PCP Physician Assistant Medical; Visit Provider Nurse Practitioner Family
DX: N39.0 Urinary tract infection, site not specified (principal)
CPT/HCPCS: 87086

== ENCOUNTER 2020-12-14 13:54 | Outpatient (REF) | payer BC, SELFPAY ==
[2020-12-14 21:50] LABS: Abs Immature Grans 0.02 10^3/uL (0.0-0.06); Absolute Basophil Count 0.04 10^3/uL (0.0-0.2); Absolute Eosinophil Count 0.09 10^3/uL (0.0-0.7); Absolute Lymphocyte Count 3.22 10^3/uL (1.2-3.4); Absolute Monocyte Count 0.41 10^3/uL (0.1-0.8); Absolute Neutrophil Count 2.59 10^3/uL (1.2-6.7); Basophils % 0.6; Eosinophils % 1.4; HCT 42.9 % (36.0-46.0); HGB 14.1 g/dL (11.2-15.7); Immature Grans % 0.3; Lymphocytes % 50.5; MCH 30.3 pg (27.0-33.0); MCHC 32.9 % (32.0-36.0); MCV 92.3 fL (80-95); MPV 11.6 fL (8.0-11.0); Monocytes % 6.4; Neutrophils % 40.8; Nucleated RBC 0 %; Platelet Count 239 10^3/uL (130-400); RBC 4.65 10^6/uL (3.93-5.22); RDW 12.9 % (11.7-14.6); RDW-SD 43.7 fL; WBC 6.37 10^3/uL (4.4-10.8)
[2020-12-14 22:23] LABS: ALT 30 U/L (14-59); AST 26 U/L (15-37); Albumin 4.2 g/dL (3.4-5.0); Alkaline Phosphatase 74 U/L (46-116); Anion Gap 11.4 mmol/L (3-11); BUN 23 mg/dL (7-18); Bilirubin, Total 0.2 mg/dL (0.2-1.0); CO2 24.6 mmol/L (21.0-32.0); CREATININE 1.2 mg/dL (0.55-1.02); Calcium 9.9 mg/dL (8.5-10.1); Chloride 104 mmol/L (98-107); Estimated GFR 45.23 (mL/min/1.73m2); Glucose 95 mg/dL (74-106); Potassium 4.4 mmol/L (3.5-5.1); Sodium 140 mmol/L (136-145); Total Protein 7.8 g/dL (6.4-8.2)
== END 2020-12-14 13:55 | disposition home or self-care (01) ==
LOC: NCHCN 13:54
PROVIDERS: PCP Physician Assistant Medical; Visit Provider Physician Assistant Medical
DX: R10.2 Pelvic and perineal pain (principal); N39.0 Urinary tract infection, site not specified
CPT/HCPCS: 80053; 85025; 87480; 87510; 87660

== ENCOUNTER 2021-01-21 10:01 | Outpatient (REF) | payer BC, SELFPAY ==
--- NOTE | 2021-01-21 09:45 | PAPFT_PTH ---
PATIENT: Cecilia Marx LOC: [facility] U#:[id number] AGE/SX: 65/F ROOM: RE01/21/[address]: Katie Gonzalez : 1955 BED: DIS: 01/21/2021 SPEC #: [id number] RECD: 01/21/21 12:38 STATUS: LENCHO REQ #: [id number] RUTH: 01/21/21 09:[address]: Katie Gonzalez DEPT: [facility] Cytology RECD BY: Barby Shafer ENTERED: 01/21/21 12:38 SP TYPE: PAPFT OTHR DR: Christine Fuentes Tissues: 1 - CX/ENDOCX FOR PAP SMEARS Procedures: PAP THIN PREP/UVM Screening HPV DNA PROBE Comments: [id number]
== END 2021-01-21 10:02 | disposition home or self-care (01) ==
LOC: LBN 10:01
PROVIDERS: PCP Physician Assistant Medical; Visit Provider Obstetrics & Gynecology Gynecology
DX: Z12.4 Encounter for screening for malignant neoplasm of cervix (principal); Z11.51 Encounter for screening for human papillomavirus (HPV)
CPT/HCPCS: 88142; 87624

== ENCOUNTER 2021-01-26 16:30 | Outpatient (REF) | payer BC, SELFPAY ==
[2021-01-26 17:43] LABS: Calculated LDL 162 mg/dL (<100); Cholesterol 252 mg/dL (<200); HDL Cholesterol 58 mg/dL (40-60); TSH 5.82 uIU/mL (0.36-3.74); Triglyceride 160 mg/dL (<150)
== END 2021-01-26 16:31 | disposition home or self-care (01) ==
LOC: NCHCN 16:30
PROVIDERS: PCP Physician Assistant Medical; Visit Provider Physician Assistant Medical
DX: E03.9 Hypothyroidism, unspecified (principal); Z00.8 Encounter for other general examination
CPT/HCPCS: 80061; 84443

== ENCOUNTER 2021-03-23 16:49 | Outpatient (REF) | payer MEDICARE, SELFPAY ==
[2021-03-23 14:33] LABS: TSH 0.73 uIU/mL (0.36-3.74)
== END 2021-03-23 16:50 | disposition home or self-care (01) ==
LOC: NCHCN 16:49
PROVIDERS: PCP Physician Assistant Medical; Visit Provider Physician Assistant Medical
DX: E03.9 Hypothyroidism, unspecified (principal)
CPT/HCPCS: 84443

== ENCOUNTER → 2021-05-11 10:21 | Outpatient (BNVA) | payer MEDICARE, SELFPAY | PROVIDERS: PCP Physician Assistant Medical; Referring Provider Physician Assistant Medical; Visit Provider Surgery | DX: K62.5 Hemorrhage of anus and rectum (principal) | CPT/HCPCS: 99213 ==

== ENCOUNTER 2021-06-25 16:20 | Outpatient (CLI) | payer MEDICARE, SELFPAY ==
--- NOTE | 2021-06-25 | DI.CT_ITS ---
Exam(s) CT ABDOMEN PELVIS WO EXAM: CT ABDOMEN PELVIS WO INDICATION: LT ABD PAIN, R10.32, HX DIVERTICULOSIS ON COLONOSCOPY. COMPARISON: CT CT ABDOMEN PELVIS W from 12/11/2019 TECHNIQUE: FINDINGS: CT examination of the abdomen and pelvis was performed without IV contrast administration, oral contr ast was administered period. Images obtained through the lung bases are unremarkable. The liver is unremarkable in appearance. Gallbladder and bile ducts are CT normal. Pancreas appears normal. Spleen is unremarkable in appearance. Adrenals appear normal. The kidneys are normal in size and shape. There is no hydronephrosis or renal mass. There is a nono bstructing left lower pole 2 millimeter renal calculus. There is a 2 millimeter in diameter stone which lies at the junction of the distal left ureter and th e urinary bladder, this may be an intramural stone in the distal ureter, or may lie within the lumen of the bladder. No other ureteral calcification identified on either side.. Abdominal aorta is of normal diameter and no major vascular abnormality is seen. No abdominal wall hernia. No abdominal or pelvic adenopathy. 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 Appendix is normal. No evidence of diverticulitis or bowel obstruction. IMPRESSION: 2 millimeter stone which appears to be nonobstructing, this may lie either in the urinary bladder or in the intramural portion of the distal left ureter period. RADIATION DOSE DELIVERED: 931.98mGy.cm Total DLP 931.98mGy.cm Total DLP !Error CTDIvol RADIATION OPTIMIZATION: All CT scans at this facility use at least one of these dose optimization te chniques: automated exposure control; mA and/or kV adjustment per patient size (includes targeted exa ms where dose is matched to clinical indication); or iterative reconstruction.
[2021-06-25] MEDS: Barium Sulfate 2% W/V-Berry Smoothie 450 ML BTL 900 ML PO (15:31)
--- NOTE | 2021-06-25 17:53 | DI.VRAD_ITS ---
PROCEDURE INFORMATION: Exam: CT Abdomen And Pelvis Without Contrast Exam date and time: 06/25/2021 17:25 Age: 66 years old Clinical indication: Localized; Left; Patient HX: L abdominal pain TECHNIQUE: Imaging protocol: Computed tomography of the abdomen and pelvis without contrast. Other contrast: Oral, Redi-Cat Barium; COMPARISON: CT ABDOMEN PELVIS W 12/11/2019 09:25 FINDINGS: Liver: No hepatic masses on noncontrast imaging. Gallbladder and bile ducts: No calcified stones. No ductal dilation. Pancreas: No gross pathology in the pancreas on noncontrast imaging. Spleen: No splenomegaly or focal lesions. Adrenal glands: No mass. Kidneys and ureters: Punctate left nephrolithiasis. No right nephrolithiasis. No right hydronephrosis. Stomach and bowel: Colonic diverticulosis without diverticulitis. No gross pathology in the small bowel on noncontrast imaging. Appendix: No evidence of appendicitis. Intraperitoneal space: No free air. No significant fluid collection. Vasculature: No abdominal aortic aneurysm. Lymph nodes: No significantly enlarged lymph nodes. Urinary bladder: 2 mm calculus in the region of the left ureteral vesicular junction versus intraluminal urinary bladder. No left hydronephrosis; favors the stone has passed into the bladder. No urinary bladder wall thickening. Reproductive: Unremarkable as visualized. Bones/joints: No acute fracture. Soft tissues: No suspicious lesions. IMPRESSION: 1. 2 mm calculus in the region of the left ureteral vesicular junction versus intraluminal urinary bladder. No left hydronephrosis; favors the stone has passed into the bladder. 2. Punctate left nephrolithiasis. 3. Incidental findings as described. Dictated and Authenticated by: Francine Hoskins MD. Ordering:WANDA Kuo MD
== END 2021-06-25 16:40 ==
PROVIDERS: PCP Physician Assistant Medical; Visit Provider Physician Assistant Medical
DX: R10.32 Left lower quadrant pain (principal); N20.1 Calculus of ureter
CPT/HCPCS: 74176

== ENCOUNTER 2021-06-25 18:19 | Outpatient (REF) | payer MEDICARE, SELFPAY ==
[2021-06-25 15:32] LABS: Abs Immature Grans 0.03 10^3/uL (0.0-0.06); Absolute Basophil Count 0.04 10^3/uL (0.0-0.2); Absolute Eosinophil Count 0.13 10^3/uL (0.0-0.7); Absolute Lymphocyte Count 2.31 10^3/uL (1.2-3.4); Absolute Monocyte Count 0.61 10^3/uL (0.1-0.8); Absolute Neutrophil Count 3.38 10^3/uL (1.2-6.7); Anion Gap 9.8 mmol/L (3-11); BUN 21 mg/dL (7-18); Basophils % 0.6; CO2 24.2 mmol/L (21.0-32.0); Calcium 9.1 mg/dL (8.5-10.1); Chloride 108 mmol/L (98-107); Estimated GFR 55.64 (mL/min/1.73m2); Glucose 107 mg/dL (74-106); HCT 41.4 % (36.0-46.0); HGB 13.8 g/dL (11.2-15.7); Immature Grans % 0.5; Lymphocytes % 35.5; MCH 30.5 pg (27.0-33.0); MCHC 33.3 % (32.0-36.0); MCV 91 fL (80-95); Monocytes % 9.4; Platelet Count 255 10^3/uL (130-400); Potassium 4.2 mmol/L (3.5-5.1); RBC 4.53 10^6/uL (3.93-5.22); RDW-SD 43.9 fL; Sodium 142 mmol/L (136-145)
== END 2021-06-25 18:20 | disposition home or self-care (01) ==
LOC: LBN 18:19
PROVIDERS: PCP Physician Assistant Medical; Visit Provider Physician Assistant Medical
DX: R31.9 Hematuria, unspecified (principal); R10.32 Left lower quadrant pain
CPT/HCPCS: 80048; 85025; 87086

== ENCOUNTER → 2021-07-12 14:56 | Outpatient (BNVA) | payer MEDICARE, SELFPAY | PROVIDERS: PCP Physician Assistant Medical; Referring Provider Physician Assistant Medical; Visit Provider Urology | DX: N20.1 Calculus of ureter (principal) | CPT/HCPCS: 81003; 99214 ==

== ENCOUNTER → 2021-07-29 09:16 | Outpatient (BNVA) | payer MEDICARE, SELFPAY | PROVIDERS: PCP Physician Assistant Medical; Referring Provider Physician Assistant Medical; Visit Provider Urology | DX: N20.1 Calculus of ureter (principal) | CPT/HCPCS: 99214 ==

== ENCOUNTER → 2021-11-16 14:11 | Outpatient (BNVA) | payer MEDICARE, SELFPAY | PROVIDERS: PCP Physician Assistant Medical; Referring Provider Physician Assistant Medical; Visit Provider Nurse Practitioner Gerontology | DX: N28.1 Cyst of kidney, acquired (principal); N20.0 Calculus of kidney; Z87.442 Personal history of urinary calculi | CPT/HCPCS: 99214 ==

== ENCOUNTER → 2021-12-24 14:46 | Outpatient (CLI) | payer MEDICARE, SELFPAY ==
--- NOTE | 2021-12-24 11:30 | DI.RAD_ITS ---
Exam(s) XR WRIST RT COMPLETE EXAM: XR WRIST RT COMPLETE CLINICAL HISTORY: WRIST SPRAIN-S63.509A. TECHNIQUE: 2D digital imaging was performed. COMPARISON: No exams were available for comparison FINDINGS: 3 views No evidence of fracture nor dislocation nor significant ulnar variance. Bone density normal. No oss eous lesions. Scaphoid appears unremarkable as does the scapholunate distance. IMPRESSION: No fracture evident. DATA REPOSITORY: RADIATION DOSE DELIVERED:
--- OUTSIDE RECORDS SUMMARY | 2021-12-24 14:48 | XMS_ITS | Encounter Summary ---
:1955 Author Organization [facility] [place] [address] Care Team Providers Name Role Phone Christine Fuentes Primary Care Provider Encounter Details Date Type Department Care Team Description 01/28/2019 Telephone Hematology [place] [address] Social History Tobacco Use Types Packs/Day Years Used Date Former Smoker Quit: 10/19/19 12 Smokeless Tobacco: Never Used Alcohol Use Standard Drinks/Week Comments Yes 1 (1 standard drink = 0.6 oz pure alcoho l) very rare Alcohol Habits Answer Date Recorded How often do you have a drink containing alcohol? Not asked How many drinks containing alcohol do you have on a typical Not asked day when you are drinking? How often do you have six or more drinks on one occasion? No t asked Comment: very rare 03/23/2017 Sex Assigned at Date Recorded Not on file documented as of this encounter Miscellaneous Notes Telephone Encounter - Serena Tran - 01/28/2019 4:35 PM EST Spoke to patient about new referral that came to us from PCP. Patient is not having any new issues. She wants to be followed in the breast program, but since Destinee retired, she wanted to make sure she was on the recall list for 07/2019. 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
--- OUTSIDE RECORDS SUMMARY | 2021-12-24 14:48 | XMS_ITS | Encounter Summary ---
:1955 Author Organization [facility] Address [address] [place] [address] Care Team Providers Name Role Phone Unavailable Primary Care Provider Unavailable Encounter Details Date Type Department Care Team Description 01/28/2010 Results Only [facility] Kane Forrester , Laboratory Services - [address] AGAPITO MORENO [address] [place] [address] [place], [place] [id number] [phone] Social History Tobacco Use Types Packs/Day Years Used Date Never Assessed Sex Assigned at Date Recorded Not on file documented as of this encounter Plan of Treatment Not on filedocumented as of this encounter Procedures Procedure Name Priority Date/Time Associated Diagnosis Comme [facility] SURGICAL PATHOLOGY Routine 01/28/2010 0:00 EST Re sults for this procedure are i n the results section. documented in this encounter Results SURGICAL PATHOLOGY (01/28/2010 0:00 EST) Pathology SURGICAL PATHOLOGY REPORT ? [facility] Report: ? LAB Reports generated via [employer] interface contain original data; ? however they are lacking the format of the original report. ? Caution should be taken when reading/interpreting unformatted reports. ? Name: ? CECILIA MARX Arian ? Accession #: ? [id number] ? : ? 1955 (Age: 54) ??F ?Collect Date: ? 01/28/2010 ? Location: ? [facility] ? Re ceive Date: ? 01/29/2010 ? Provider: KANE GUERO SON DO ? Copy to: KAYLI LUNDBERG SENIOR APPLICATIONS ANALYST ? Final Pathologic Diagnosis: ? A. ?Breast, rig ht, wire localization excisional biopsy: ? 1. ?? 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 ??See comment. ? - Specimen i ntegrity: ??Intact. ?- Tumor location: ? ?Location not specified. ?- Tumor position: ? ?Position not specified. ?- Area of involveme nt by DCIS is approximately 0.22 cm. ? - DCIS invol ves one level out a total of thirteen levels submitted ?? for microscopic evaluation. ?- Surgical resectio n margins: ??Negative; DCIS present: ?- 6.0 mm from an terior margin. ?- 8.0 mm from po sterior margin. ?- Greater than 1 .0 cm from remaining margins. ? 2. ?Fibrocystic changes including: ??Usual ductal hyperplasia, sclerosing adenosis, columnar cell zarate ge, microcyst formation, apocrine metaplasia, ? interlobular fibrosis, papil rafael. ?3. ?? Microca lcifications associated with fibrocystic changes. ? 4. ?? Prior biopsy si te identified. ? B. ??Breast, right, firm sp ecimens adjacent to specimen A, excisional biopsy: ? 1. ?? No fibrocystic change. ? - Usual duct al hyperplasia. ? - Columnar c ell change. ? - Apocrine metaplasia. ? - Microcyst formation. ? - Adenosis. ? 2. ?? Intraductal pap illoma. ? C. ?? Breast, right, two ot her firm areas inferior to specimen A, excisional ?? biopsy: ? 1. ?? Fibrocystic merrill nge including: ? - Sclerosing adenosis with microcalcifications. ? - Columnar c ell change. ? - Microcyst formation. ? 2. ?? Intraductal pap illoma. ? 3. ?? Biopsy site jose r ntified. ? Comment: ? This case has been shown at the intradepartmental consultation ? conference. ??(Dr. Cabrera )/mpl ? Document reviewed and electr onically signed by: ? LEE MIMS MD ? Report ??Date: 02/03/ 2009 16:52 ? By the signature above, the attending physician certifies that he/she has ? personally conducted a gross and/or microscopic examination of the described ? specimens and rendered or co nfirmed the above diagnosis. ? Specimen(s) Received: ? A. ?R breast ma ss ??silk suture inferior, short Prolene suture superior, and long Prolene suture late ral ? B. ? Firm specimens neva cent to specimen #1 ??silk suture adjacent to silk ? suture in #1 ? C. ? Two other firm area s inferior to specimen #1 ??sutures adjacent to ? specimen #1 ? Clinical History: ? R breast mass; atypic al ductal hyperplasia ? Gross Description: ? Received in formalin labelled Cecilia Marx and #1 breast mass, right ?? is a 46.6 gram oriented prod uct of a right lumpectomy which measures 4.7 cm from superior to inferior, 7.0 cm from medial to lateral, and 2.4 cm from anterior to posterior. ??The specimen is oriented as per the requisition, which designates ?? the silk suture as inferior, the short Prolene suture as superior, and the long Prolene suture as lateral. ? ?There is a needle localization wire which enters on the lateral aspect of the br east and has an exit clip on the medial side of the posterior aspect. ??This loc alization wire is removed. ??The specimen is inked as follows: anterior yellow, po sterior black, superior blue, inferior green, medial red, and lateral orange. ??T he specimen is sectioned from medial (level 1) to ? lateral (level 13). ??The cu t sections reveal a firm, heterogeneous area in the ?? medial aspect, in levels 1 a nd 2, with an area that may represent the biopsy ? cavity. ??This firm area has james-white fibrous areas admixed with two yellow ? nodular areas which measure 0.5 cm and 0.4 cm in greatest dimension. ??Also ? within this fibrous area, is a 0.5 cm hemorrhagic area. ??The total fibrous area measures 2.5 x 1.8 x 1.9 cm. ??It appears to abut the medial and inferior ? margins. ??The remaining livia ast tissue is primarily yellow, lobular adipose ? tissue, which is slightly fr agmented. ??[employer] sections are submitted as follows: ? BLOCK SEN ? A1-A5 ?Level 1, medial margin, perpendicular sections (inferior to ? superior) ? A6 ?Level 2, in ferior half ? A7 ?Level 2, khan perior half ? A8 ?Level 3, in ferior half ? A9 ?Level 3, khan perior half ? A10 ?Level 4, i nferior one-third ? A11 ?Level 4, m iddle one-third ? A12 ?Level 5, s uperior half ? A13 ?Level 6, i nferior half ? A14 ?Level 7, i nferior half ? A15 ?Level 8, m iddle one-third (anterior and posterior margins) ? A16 ?Level 9, i nferior half ? A17 ?Level 10, superior half ? A18 ?Level 11, inferior half ? A19 ?Level 12, superior half ? A20, A21 ? Level 13, lat eral margin, medical claims representative perpendicular sections ? Received in formalin thomas d Cecilia Marx and #2 firm specimens adjacent to specimen #1 is a 4.4 gram o riented piece of firm, yellow, focally brown tissue which measures 2.5 x 2.5 x 1 .1 cm. ??The specimen is oriented as per the ? requisition, which designate s the silk suture as adjacent to silk suture in #1 ?? (silk suture #1 represented inferior margin). ??The aspect with the suture is ? inked blue and all remaining margins are inked black. ??The specimen is serially sectioned in seven levels re vealing fibrous tissue and focal areas that are more firm than the surrounding ti ssue. ??There are no definitive nodules or masses. ?? There are focal areas of bro wn, which may represent hemorrhage. ??The specimen is submitted entirely as follow s: ? BLOCK SEN ? B1, B2 ?Level 1 , perpendicular sections ? B3 ?Level 2 ? B4 ?Level 3 ? B5 ?Level 4 ? B6 ?Level 5 ? B7 ?Level 6 ? B8, B9 ?Level 7 , perpendicular sections ? Received in formalin thomas Cecilia Regalado and #3 firm area inferior to ? specimen #1 are two pieces of tissue which weigh 0.6 grams and 0.2 grams, ? respectively. ??The specimen s are oriented as per the requisition, designating ?? the sutures are adjacent to specimen #1. ??The larger specimen measures 2.0 x 1.1 x 0.8 cm and the smaller spe cimen measures 1.0 x 0.9 x 0.7 cm. ??The larger ? specimen is yellow and lobul ated, with focal fibrous tissue and hemorrhage. ??The smaller specimen is yellow, admixed with james-brown fibrous tissue. ??The ? specimens are both inked wit h the suture aspect blue and the remaining margins ?? black. ??The larger fragment is trisected and submitted as (C1) and (C2). ??The ?? smaller fragment is bisected and submitted as (C3). ??(Dr. Cabrera)/antwon ? ESTROGEN AND PROGESTERONE RE CEPTOR IMMUNOPEROXIDASE STAINS ? Date Ordered: ? 04/07/2009 ? Status: ?? Signed Out ?Date Complete: ? 02/04/2010 ? By: ??[place] Robert Arredondo ? Date Reported: ? 02/04/2010 ? Interpretation ? Breast, right, wire l ocalization excisional biopsy: ? - Ductal carcinoma in situ. ? 1. ?Positive fo r estrogen receptors (in greater than 90% of tumor ? cells). ? 2. ?Positive fo r progesterone receptors (in greater than 90% of tumor ?? cells). ? Description ? Tissue submitted: Par affin embedded tissue block labelled [id number] (A10) ?? from [facility] are ? An immunohistochemical assay for estrogen receptors (ER1D5, Dako) and ? progesterone receptors (PgR1 294, Dako) has been performed on this specimen. ? Standard heat activated anti gen retrieval protocol (EDTA buffer at pH 8.0 and 98 C x 30 minutes) was employed followed by automated immunostaining. Intranuclear receptor complexes were visu alized on tissue sections using an HRP polymer ? immunohistochemical techniqu e. ? Results are reported as negative (no nuclear staining) or positive with the proportion of positive cells noted. ??Estrogen receptor expression in <5% of ? tumor cells may not have a s robin interaction with estrogen receptor modulators such as Tamoxifen. ??(Dr. Fabio herrera)/antwon ? NOTE: ??One or more of the reagents used in immunohistochemical testing in this case may not have been cleared or approved by the U.S. Food and Drug ? Administration (FDA). ??The FDA has determined that such clearance or approval is not necessary. ??These tests are used for clinical purposes. ??They should not be regarded as investigational or for research. ??These reagents' ??performance ? characteristics have been de termined by [facility]. ??This ? laboratory is certified unde r the Clinical Laboratory Improvement Amendments of 1988 (CLIA-88) as qualified to perform high complexity clinical laboratory ? testing. ? Document reviewed and electr onically signed by: ? NARENDRA POE MD ? Report date: 16/ 10 ? By the signature above, the attending physician certifies that he/she has ? personally conducted a gross and/or microscopic examination of the described ? specimens and rendered or co nfirmed the above diagnosis. ? End of Report ? Specimen Performing Organization Address City/State/ZIP Code Phon e Number [facility] [address] [place] [address] SERVICES [facility] [address] [place] [address] documented in this encounter Visit Diagnoses Not on filedocumented in this encounter
--- OUTSIDE RECORDS SUMMARY | 2021-12-24 14:48 | XMS_ITS | Encounter Summary ---
:1955 Author Organization [facility] Address [address] [place] [address] Care Team Providers Name Role Phone Unavailable Primary Care Provider Unavailable Encounter Details Date Type Department Care Team Description 03/27/2006 Results Only [facility] - Kayli Castanon FNP conversion [address] [place] [address] [place] [address] (Wo rk) Social History Tobacco Use Types Packs/Day Years Used Date Never Assessed Sex Assigned at Date Recorded Not on file documented as of this encounter Plan of Treatment Not on filedocumented as of this encounter Procedures Procedure Name Priority Date/Time Associated Comments Diagnosis HPV DETECTION, HIGH Routine 03/27/2006 8:18 Resul ts for this RISK TYPES EST procedure are i n the results section. CYTOPATHOLOGY Routine 03/27/2006 0:00 Results for this EST procedure are i n the results section. documented in this encounter Results HUMAN PAPILLOMA VIRUS DNA TEST (03/27/2006 8:18 EST) Specimen Description Cervix, ThinPrep [facility] AB vial Result Negative for HPV [facility] types 16, 18, 31, 33, 35, 39, 45, 51, 52, 56, 58, 59, and 68. Report Status Final [facility] [id number] Specimen Performing Organization Address City/State/ZIP Code Phon e Number [facility] [address] [place] [address] SERVICES [facility] [address] [place] [address] CYTOPATHOLOGY (03/27/2006 0:00 EST) Pathology Report: CYTOPATHOLOGY REPORT [facility] Reports generated via electronic interface contain lee ginal data; however they are lacking the format of the original re port. Caution should be taken when reading/interpreting unfo rmatted reports. Name: ? STEVE MARX ? Accession #: ? [id number] : ? 1955 (Age: 51) ??F ?Collect Date: ? 06/2006 Location: ? [facility] ? Receive Date : ? 03/29/2006 Provider: ?KAYLI LUNDBERG FLIGHT OPERATIONS ENGINEER Copy to: ? Specimen/Source: ? ThinPrep Pap Test, Cervix/Endocervix, processed on [employer] ThinPrep Imaging System, with manual evaluation Last Menstrual Period: ? DILLON Other: ? HPVDX - HPV testing requested regardless of diag nosis on current ThinPrep Pap test. ? SPECIMEN ADEQUACY ? Satisfactory for Evaluation - transformation zone component present GENERAL CATEGORIZATION ? Negative for Intraepithelial Lesion or Malignan cy ? Document reviewed and electronically signed by: ? NILDA Decker(ASCP) ? Report Date: ??03/30/2006 16:00 End of Report Specimen Performing Organization Address City/State/ZIP Code Phon e Number [facility] [address] [place] [id number] SERVICES [facility] [address] [place] [address] documented in this encounter Visit Diagnoses Not on filedocumented in this encounter
--- OUTSIDE RECORDS SUMMARY | 2021-12-24 14:48 | XMS_ITS | Encounter Summary ---
:[address] [facility] Address [address] [place] [address] Care Team Providers Name Role Phone Unknown, Provider Primary Care Provider Encounter Details Date Type Department Care Team Description 11/29/[address] [facility] Kayli Engel FNP Laboratory Services - [place] [address] [address] [place] [address] [phone] Social History Tobacco Use Types Packs/Day Years Used Date Never Assessed Sex Assigned at Date Recorded Not on file documented as of this encounter Plan of Treatment Not on filedocumented as of this encounter Procedures Procedure Name Priority Date/Time Associated Diagnosis Comme nts PAP TEST- RESULT Routine 11/29/2010 0:00 EDT Resu lts for this ONLY procedure are i n the results section. documented in this encounter Results PAP TEST- RESULT ONLY (11/29/2010 0:00 EDT) Pathology Report: CYTOPATHOLOGY REPORT [facility] Reports generated via electronic interface contain lee ginal data; however they are lacking the format of the original re port. Caution should be taken when reading/interpreting unfo rmatted reports. Name: ? STEVE MARX ? Accession #: ? [id number] ? : ? 1955 (Age: 55) ??F ?Collect Da te: ? 11/29/2010 ? Location: ? [facility] ? Receive Date: ? 011 ? Provider: KAYLI ENGEL LEGAL PROCESS SPECIALIST Copy to: ? Final Report SPECIMEN ADEQUACY ? Satisfactory for Evaluation - transformation zone component present GENERAL CATEGORIZATION ? Epithelial Cell Abnormality INTERPRETATION ? Squamous Cell Abnormality - Atypical squamous c ells, undetermined significance (ASC-US). EDUCATIONAL NOTES/RECOMMENDATIONS ? [facility] recommends sung allen the 2006 Consensus Guidelines for the Management of Women with Abnormal Cervical Cancer Screening Tests (JLGTD, 2007;11(4):201-222). ??Consensus guidelines are availa ble online at www.ASCCP.org. Last Menstural Period: 15 yrs ago Previous Gynecologic Pathology: JODI: yrs ago dysplasia Specimen/Source: ??Pap Test, Cervix/Endocervix, ThinPr ep Imaging System with manual evaluation Document reviewed and electronically signed by: ? PHILOMENA PEARL MD ? Report ??Date: 12/07/2010 16:48 HPV with Pap Test ? Date Ordered: ? 12/07/2010 ? Status: ?? Signed Out ?Date Complete: ? 12/09/2010 ? By: ??S ystem Interface ? Date Reported: ? 12/09/2010 ? Interpretation RESULT: Negative for HPV types 16, 18, 31, 33, 35, 39, 45, 51, 52, 56, 58, 59, and 68. Comments Document reviewed and electronically signed by: ? System Interface ? Report date: 12/09/2010 By the signature above, the attending physician certif ies that he/she has personally conducted a gross and/or microscopic examin ation of the described specimens and rendered or confirmed the above diagnosi s. End of Report Specimen Performing Organization Address City/State/ZIP Code Phon e Number [facility] [address] [place] [address] SERVICES [facility] [address] [place] [address] documented in this encounter Visit Diagnoses Not on filedocumented in this encounter Care Teams Solder Sprayer Relationship Specialty Start Date End Date Unknown, Provider, PCP - General 02/02/10 10/22/16 documented as of this encounter
--- OUTSIDE RECORDS SUMMARY | 2021-12-24 14:48 | XMS_ITS | Encounter Summary ---
:1955 Author Organization [facility] [place] [address] Care Team Providers Name Role Phone Christine Fuentes Primary Care Provider Encounter Details Date Type Department Care Team Description 08/29/2018 Telephone Gastroenterology at [facility] Kiersten Dean, [facility] [place] [address] Social History Tobacco Use Types Packs/Day Years [...] this encounter Miscellaneous Notes Telephone Encounter - Kiersten Dean RN - 09/03/2018 10:23 AM EDT Call placed to [facility] has lab results not scanned in. Per Danyell, patient has not come in for lab. Call placed to Diane. FLORES reminding she's due for labs. Asked her to call back or send [employer] message Telephone Encounter - Kiersten Dean RN - 08/29/2018 3:20 PM EDT Bautista Mcgrath MD sent to Kiersten Dean RN ?? Debbie, I am not sure if you are the right person to send this to. I saw this patient in clinic this week but want additional labs. She lives close to [facility] and would be reasonable to have them done there. I ordered the labs as external and called to patient to let her know. Do we fax the orders to [facility]? Is this something that I should send to the secretaries? Thanks, James Lab orders faxed to [facility] at [phone]. Reminder set to f/u on results. documented in this encounter Plan of Treatment Not on filedocumented as of this encounter Visit Diagnoses Not on filedocumented in this encounter Care Teams Hospital Admissions Officer Relationship Specialty Start Date End Date Christine Fuentes PA PCP - General Family Medicine 01/24/17 10/08/19 [address] [place] [address] documented as of this encounter
--- OUTSIDE RECORDS SUMMARY | 2021-12-24 14:48 | XMS_ITS | Encounter Summary ---
:1955 Author Organization [facility] [place] [address] Care Team Providers Name Role Phone Christine Fuentes Primary Care Provider Encounter Details Date Type Department Care Team Description 02/26/2019 Notes Only [facility] [place] [address] Social History Tobacco Use Types Packs/Day Years [...] on file documented as of this encounter Progress Notes January Davis - 02/26/2019 2:30 PM EST Cecilia comes in to day wanting a Camisole. We fit her to the [id number]. She likes it. She is ready for new bras and forms but will come back in March to do that. $50.00 Paid by CC to [facility] documented in this encounter Plan of Treatment Not on filedocumented as of this encounter Visit Diagnoses Not on filedocumented in this encounter Care Teams Special Education Aide Relationship Specialty Start Date End Date Christine Fuentes PA PCP - General Family Medicine 01/24/17 10/08/19 [address] [place] [address] documented as of this encounter
--- OUTSIDE RECORDS SUMMARY | 2021-12-24 14:48 | XMS_ITS | Encounter Summary ---
:1955 Author Organization [facility] Address [address] [place] [address] Care Team Providers Name Role Phone Unavailable Primary Care Provider Unavailable Encounter Details Date Type Department Care Team Description 11/13/2008 Orders Only [facility] Kayli Engel FNP Laboratory Services - [place] [address] [address] [place], [place] [address] [phone] Social History Tobacco Use Types Packs/Day Years Used Date Never Assessed Sex Assigned at Date Recorded Not on file documented as of this encounter Plan of Treatment Not on filedocumented as of this encounter Procedures Procedure Name Priority Date/Time Associated Diagnosis Comme [facility] CYTOPATHOLOGY Routine 11/13/2008 0:00 EDT Results for this procedure are i n the results section . documented in this encounter Results CYTOPATHOLOGY (11/13/2008 0:00 EDT) Pathology Report: CYTOPATHOLOGY REPORT ? [facility] ? LAB Reports generated via [employer] interface contain original data; ? however they are lacking the format of the original report. ? Caution should be taken when reading/interpreting unformatted reports. ? Name: ? STEVE MARX ? Accession #: ? [id number] ? : ? 1955 (Age: 53) ??F ?Collect Date: ? 11/13/2008 ? Location: ? [facility] ? Receive Date: ? 11/14/2008 ? Provider: ?KAYLI HES S STUDENT ACTIVITIES DIRECTOR ? Copy to: ? Specimen/Source: ? Pap Test, Cervix/Endocervix, ThinPrep Imaging System ? with manual evaluation ? Last Menstrual Period: ? Other: ? HPVA - HPV testing requested if ASC-US on the current ThinPrep Pap test. ? SPECIMEN ADEQUACY ? Satisfactory for Eval uation ? - transformation zone compon ent present ? GENERAL CATEGORIZATION ? Negative for Intraepi thelial Lesion or Malignancy ? Document reviewed and electr onically signed by: ? Lynan Fortunato, [place](ASCP) ? Report Date: ??10/01/ 2009 16:03 ? End of Report ? Specimen Performing Organization Address City/State/[facility] Code Phon e Number [facility] [address] [place] [address] SERVICES [facility] [address] [place] [address] documented in this encounter Visit Diagnoses Not on filedocumented in this encounter
--- OUTSIDE RECORDS SUMMARY | 2021-12-24 14:48 | XMS_ITS | Encounter Summary ---
:1955 Author Organization [facility] Address [address] [place] [address] Care Team Providers Name Role Phone Unavailable Primary Care Provider Unavailable Encounter Details Date Type Department Care Team Description 09/29/2005 Results Only [facility] - Costa Selby MD Maple conversion [address] [place] [address] [place] [address] Social History Tobacco Use Types Packs/Day Years Used Date Never Assessed Sex Assigned at Date Recorded Not on file documented as of this encounter Plan of Treatment Not on filedocumented as of this encounter Procedures Procedure Name Priority Date/Time Associated Diagnosis Comme nts SURGICAL PATHOLOGY Routine 09/29/2005 0:00 EDT Re sults for this procedure are i n the results section. documented in this encounter Results SURGICAL PATHOLOGY (09/29/2005 0:00 EDT) Pathology Report: SURGICAL PATHOLOGY REPORT [facility] Reports generated via electronic interface contain lee ginal data; LAB however they are lacking the format of the original re port. Caution should be taken when reading/interpreting unfo rmatted reports. Name: ? STEVE MARX ? Accession #: ? [id number] ? : ? 1955 (Age: 50) ??F ? Collect Date: ? 09/29/2005 ? Location: ? [facility] ? Receive Date: ? 006 ? Provider: ALONSO SELBY MD Copy to: ERNIE COTO ? Final Pathologic Diagnosis: A. ?Cervix, 12 o'clock, biopsy: 1. ?Squamous mucosa with mild to moderate chronic inflammation. 2. ?Squamous at ypia suggestive but not diagnostic of low grade squamous intraepithelial lesion. B. ?Endocervix, curettage: 1. ?Scant squamous epithelium with reacti ve changes. 2. ?No endocervical tissue seen. Comment: ? Deeper levels of (A) and (B) are also examined. Previous Pap smear ([id number]) was reviewed by Dr. Sally Pablo, and the presence of low grade squamous intraepithelial les ion was confirmed. However, the atypical cells seen on the Pap smear are not seen in the current cervical biopsy or endocervical curettage specimen. This case was reviewed by Dr. Curtis Pablo, and was also presented at the intradepartmental consultation confer ence. ??(Dr. Zambrano)/[facility] Document reviewed and electronically signed by: Jameson Zambrano MD Report ??Date: 10/05/2005 16:40 By the signature above, the attending physician certif ies that he/she has personally conducted a gross and/or microscopic examin ation of the described specimens and rendered or confirmed the above diagnosi s. Specimen(s) Received: ? A. Cx bx @ 12:00 B. Endocervical curettage Clinical History: ? Pt states h/o abnorma l Pap in 1982. ??08/25 Pap LSIL. ??Pt on Synthroid. ??LMP 1995. ?? Gross Description: ? Received in formalin labelled Araseli richardson viky cx bx @ 12:00 is a single fragment of james-pink soft tissue measuring 0.3 x 0.2 x 0.1 cm. ??Entirely submitted as (A). Received in formalin labelled Araseli a nd endocervical curettage is a scant amount of tissue which, afte r filtration, measures 0.2 x 0.1 x 0.1 cm. ??Entirely submitted as (B). ??(Dr. Swift)/[place] End of Report Specimen Performing Organization Address City/State/ZIP Code Phon e Number [facility] [address] [place] [address] SERVICES [facility] [address] [place] [address] documented in this encounter Visit Diagnoses Not on filedocumented in this encounter
--- OUTSIDE RECORDS SUMMARY | 2021-12-24 14:48 | XMS_ITS | Encounter Summary ---
:1955 Author Organization [facility] Address [address] [place] [address] Care Team Providers Name Role Phone HarishdrewChristine Arian REDD Primary Care Provider [phone] Encounter Details Date Type Department Care Team Description 04/10/2017 Results Only [facility]- [facility]ISM Arjun Ivan, [address], [place] [phone] (Wo rk) Social History Tobacco Use Types Packs/Day Years Used Date Never Smoker Smokeless Tobacco: Never Used Alcohol Use Standard Drinks/Week Comments Yes 6 (1 standard drink = 0.6 oz pure alcoho l) Sex Assigned at Date Recorded Not on file documented as of this encounter Plan of Treatment Not on filedocumented as of this encounter Procedures Procedure Name Priority Date/Time Associated Diagnosis Comme [facility] SURGICAL PATHOLOGY Routine 04/10/2017 16:02 Resul ts for this EST procedure are i n the results section. documented in this encounter Results SURGICAL PATHOLOGY (04/10/2017 16:02 EST) Pathology Report: SURGICAL PATHOLOGY REPORT [facility] Reports generated via electronic interface contain lee ginal data; LABORATORY however they are lacking the format of the original re port. SERVICES Caution should be taken when reading/interpreting unfo rmatted reports. Name: ? STEVE MARX ? Accession #: ? [id number] ? : ? 1955 (Age: [age]) ??F ? Collect Date: ? 04/10/2017 ? Location: ? [facility] ? Receive Date: ? 04/11/19 18 ? Provider: ARJUN IVAN PAC Copy to: ? Final Pathologic Diagnosis: SKIN OF NECK, LEFT, SHAVE BIOPSY: - Seborrheic keratosis. Document reviewed and electronically signed by: OG BRADSHAW MD Report ??Date: 04/12/2017 14:18 By the signature above, the attending physician certif ies that he/she has personally conducted a gross and/or microscopic examin ation of the described specimens and rendered or confirmed the above diagnosi s. Specimen(s) Received: Shave biopsy left neck Clinical History: 4.0 mm, 3D lesion, scaly, brown in color , recently increased in size after 10+ yrs monitoring per patient; likely a seborrheic kerato sis Gross Description: ? Received in formalin labelled with proper patient identification (initials R, D) and left neck lesion is an unoriented el liptical excision of james-choe keratotic skin (0.5 x 0.3 cm and is exci sed to a depth of 0.2 cm). The margins are inked blue. The specimen is bisected and entirely submitted in 1. NNAMDI Faith (ASCP) 04/11/2017 5:10 PM End of Report Specimen Performing Organization Address City/State/ZIP Code Phon e Number [facility] [address] [place] [address] SERVICES documented in this encounter Visit Diagnoses Not on filedocumented in this encounter Care Teams Entry Operator Relationship Specialty Start Date End Date Christine Fuentes PA-C PCP - General 10/23/16 [address] [place] [address] documented as of this encounter
--- OUTSIDE RECORDS SUMMARY | 2021-12-24 14:48 | XMS_ITS | Encounter Summary ---
:1955 Author Organization [facility] Address [address] [place] [address] Care Team Providers Name Role Phone Unknown, Provider Primary Care Provider Encounter Details Date Type Department Care Team Description 12/05/2011 Results Only [facility] Kayli Engel FNP Laboratory Services - [place] [address] [address] [place], [place] [address] [phone] Social History Tobacco Use Types Packs/Day Years Used Date Never Assessed Sex Assigned at Date Recorded Not on file documented as of this encounter Plan of Treatment Not on filedocumented as of this encounter Procedures Procedure Name Priority Date/Time Associated Diagnosis Comme nts PAP TEST- RESULT Routine 12/05/2011 0:00 EDT Resu lts for this ONLY procedure are i n the results section. documented in this encounter Results PAP TEST- RESULT ONLY (12/05/2011 0:00 EDT) Pathology Report: CYTOPATHOLOGY REPORT [facility] Reports generated via electronic interface contain lee ginal data; however they are lacking the format of the original re port. Caution should be taken when reading/interpreting unfo rmatted reports. Name: ? STEVE MARX ? Accession #: ? [id number] : ? 1955 (Age: 56) ??F ?Collect Date: ? 11/20 Location: ? [facility] ? Receive Date : ? 12/07/2011 Provider: ?KAYLI ENGEL STREET OPENINGS INSPECTOR Copy to: ? Specimen/Source: ? Pap Test, Cervix/Endocervix, ThinPrep Imaging System with manual evaluation Last Menstrual Period: ? DILLON Previous Gynecologic Pathology: ? ASC-US: last pap with -HPV ? SPECIMEN ADEQUACY ? Satisfactory for Evaluation - transformation zone component present GENERAL CATEGORIZATION ? Negative for Intraepithelial Lesion or Malignan cy ? Document reviewed and electronically signed by: ? NILDA De La Torre(ASCP) ? Report Date: ??12/13/2011 15:26 End of Report Specimen Performing Organization Address City/State/ZIP Code Phon e Number [facility] [address] [place] [address] SERVICES [facility] [address] [place] [address] documented in this encounter Visit Diagnoses Not on filedocumented in this encounter Care Teams Veneer Drier Feeder Relationship Specialty Start Date End Date Unknown, Provider, PCP - General 02/02/10 10/22/16 documented as of this encounter
--- OUTSIDE RECORDS SUMMARY | 2021-12-24 14:48 | XMS_ITS | Encounter Summary ---
:1955 Author Organization [facility] Address [address] [place] [address] Care Team Providers Name Role Phone Unavailable Primary Care Provider Unavailable Encounter Details Date Type Department Care Team Description 10/29/2007 Before PRISM Converted [facility] - Kayli Engel FNP Visit (Maple) Maple conversion [address] [place] [address] [place], [place] [phone] Social History Tobacco Use Types Packs/Day Years Used Date Never Assessed Sex Assigned at Date Recorded Not on file documented as of this encounter Plan of Treatment Not on filedocumented as of this encounter Procedures Procedure Name Priority Date/Time Associated Diagnosis Comme [facility] CYTOPATHOLOGY Routine 10/29/2007 0:00 EDT Results for this procedure are i n the results section . documented in this encounter Results CYTOPATHOLOGY (10/29/2007 0:00 EDT) Pathology Report: CYTOPATHOLOGY REPORT ? [facility] ? LAB Reports generated via electr onic interface contain original data; ? however they are lacking the format of the original report. ? Caution should be taken when reading/interpreting unformatted reports. ? Name: ? STEVE MARX ? Accession #: ? [id number] ? : ? 1955 (Age: 52) ??F ?Collect Date: ? 10/29/2007 ? Location: ? [facility] ? Receive Date: ? 10/30/2007 ? Provider: ?KAYLI HES S ECHOCARDIOGRAPHY TECHNOLOGIST ? Copy to: ? Specimen/Source: ? ThinPrep Pap Test, Source Not Provided, processed on ? Cytyc ThinPrep Imaging Syste m, with manual evaluation ? Last Menstrual Period: ? Previous Gynecologic Patholo gy: ? Yes: Abnormal a few yrs ago ? Treatment History: ? Colposcopy: inconclusive res ults ? Other: ? HPVA - HPV testing requested if ASC-US on the current ThinPrep Pap test. ? SPECIMEN ADEQUACY ? Satisfactory for Eval uation ? - transformation zone compon ent present ? GENERAL CATEGORIZATION ? Negative for Intraepi thelial Lesion or Malignancy ? Document reviewed and electr onically signed by: ? Sowmya B. Armando, SCT( ASCP) ? Report Date: ??09/11/ 2008 09:25 ? End of Report ? Specimen Performing Organization Address City/State/ZIP Code Phon e Number [facility] [address] [place] [address] SERVICES [facility] [address] [place] [address] documented in this encounter Visit Diagnoses Not on filedocumented in this encounter
--- OUTSIDE RECORDS SUMMARY | 2021-12-24 14:48 | XMS_ITS | Encounter Summary ---
:1955 Author Organization [facility] [place] [address] Care Team Providers Name Role Phone Unknown Primary Care Provider Unavailable Encounter Details Date Type Department Care Team Description 04/07/2021 Telephone [facility] [place] [address] Social History Tobacco Use Types Packs/Day Years [...] this encounter Miscellaneous Notes Telephone Encounter - January Davis - 04/07/2021 8:45 AM EST Returned Cecilia's call. Explained transition to [facility]. All info given and she will contact them. documented in this encounter Plan of Treatment Not on filedocumented as of this encounter Visit Diagnoses Not on filedocumented in this encounter Care Teams Special Education Para Professional Relationship Specialty Start Date End Date Unknown PCP - General 10/09/19 None documented as of this encounter
--- OUTSIDE RECORDS SUMMARY | 2021-12-24 14:48 | XMS_ITS | Encounter Summary ---
:[address] [facility] Address [address] [place] [address] Care Team Providers Name Role Phone Christine Fuentes PA-C Primary Care Provider [phone] Encounter Details Date Type Department Care Team Description 01/22/2021 Lab Requisition [facility] Katie Leyva, En counter for other Pathology & MD general examination Laboratory Medicine [address] [facility] [address] [place] [address] Social History Tobacco Use Types Packs/Day Years Used Date Never Smoker Smokeless Tobacco: Never Used Alcohol Use Standard Drinks/Week Comments Yes 6 (1 standard drink = 0.6 oz pure alcoho l) Sex Assigned at Date Recorded Not on file documented as of this encounter Plan of Treatment Not on filedocumented as of this encounter Procedures Procedure Name Priority Date/Time Associated Comments Diagnosis PAP TEST Today 01/21/2021 9:45 Encounter for other Resul ts for this EST general examination procedur e are in the results section. HUMAN PAPILLOMAVIRUS Today 01/21/2021 9:45 Encounter for oth er Results for this (HPV) DETECTION-HIGH EST general examination procedure are in RISK TYPES the results section. documented in this encounter Results HUMAN PAPILLOMAVIRUS (HPV) DETECTION-HIGH RISK TYPES (01/21/2021 9:45 EST) Human Papillomavirus NegativeComment: No Negative [facility] (HPV) Detection-High E6 or E7 mRNA is CENTER LABORATOR Y Types detected from HPV SERVICES types 16,18,31,33,35,39,45 ,51,52,56,58,59,66, and 68 by brush washer mediated amplification. Specimen Pap Test - Cervix and/or Endocervix Performing Organization Address City/State/ZIP Code Phon e Number [facility] [address] [place] [address] SERVICES PAP TEST (01/21/2021 9:45 EST) Specimens A. Cervix and/or [facility] Endocervix , ThinPrep CENTER Imaging System with LABORATORY Manual Evaluation SERVICES Specimen Adequacy Satisfactory for [facility] Evaluation - CENTER transformation zone LABORATORY component present SERVICES General Negative for [facility] intraepithelial ARVERNE lesion or malignancy LABORATORY SERVICES Attestation . [facility] Electronically CENTER signed by Anam perdomo LABORATORY NILDA Pitts(ASCP) o n SERVICES 02/02/2021 at 1 104 Clinical History See below [facility] SERVICES HPV The result for the Human Pap illomavirus (HPV) Detection-High Risk Types is Negative. No E6 or E7 mRNA is detected from HPV types 16,18,31,33,35,39,45,51,52,56,58,59,66, and 68 by brush washer mediated [facility] amplification.Testing was pe rformed on specimen [id number] and was resulted on 02/02/2021 0921 EST by IVORY, LAB INSTRUMENT RESULTS IN [facility] SERVICES Performing Lab [facility] LAB [facility] SERVICES Scanned Images [facility] SERVICES Specimen Pap Test - Cervix and/or Endocervix Performing Organization Address City/State/ZIP Code Phon e Number [facility] [address] [place] [address] SERVICES documented in this encounter Visit Diagnoses Diagnosis Encounter for other general examination documented in this encounter Care Teams Steel Placer Relationship Specialty Start Date End Date Christine Fuentes PA-C PCP - General 10/23/16 [address] [place] [address] documented as of this encounter
--- OUTSIDE RECORDS SUMMARY | 2021-12-24 14:48 | XMS_ITS | Encounter Summary ---
:1955 Author Organization [facility] Address [address] [place] [address] Care Team Providers Name Role Phone Unknown, Provider Primary Care Provider Encounter Details Date Type Department Care Team Description 08/08/2016 Hospital Encounter [facility]- [place] Unknown, Provider, [facility] [address] [place] [address] [place] [address] (Work) [phone] Social History Tobacco Use Types Packs/Day Years Used Date Never Assessed Sex Assigned at Date Recorded Not on file documented as of this encounter Discharge Disposition Disposition Code Departure Means Destination Home or Self [facility] documented in this encounter Plan of Treatment Not on filedocumented as of this encounter Visit Diagnoses Not on filedocumented in this encounter Care Teams Sweat Box Attendant Relationship Specialty Start Date End Date Unknown, Provider, PCP - General 02/02/10 10/22/16 documented as of this encounter
--- OUTSIDE RECORDS SUMMARY | 2021-12-24 14:48 | XMS_ITS | Encounter Summary ---
:1955 Author Organization [facility] [place] [address] Care Team Providers Name Role Phone Christine Fuentes Primary Care Provider Encounter Details Date Type Department Care Team Description 04/19/2019 Notes Only [facility] [place] [address] Social History Tobacco Use Types Packs/Day Years [...] this encounter Progress Notes January Davis - 04/19/2019 9:30 AM EST Cecilia Marx [id number] 1955 Referring Physician: Shazia Boyd APN Previous Fitting: [facility] 04/10/18 Insurance: of [place] Prescription: Yes Diagnoses:right breast cancer Date of Diagnoses: 02.21.18 Date of Surgery: 03.15.18 Type of Surgery: bilateral mastec Additional Treatment:no Pain/Sensitivity: none Skin Condition: Good Range of motion: Good Lymphedema: No Lymph Nodes Removed: yes Assessment for Refill: Cecilia comes in for fitting today . Her bras and forms and no longer functioning. Measurements:42 Plan: New forms and new bras. Form - Our goal is to restore balance & Symmetry and we determine with our client that the breast form described below is meeting her needs according to her type of surgery. Delivered today:04.19.[address] [facility] Manufacture Model L/R Quantity L8030 ABC [id number] L 1 L8030 ABC 39828-31 R 1 Bra - Our goal is to provide adequate measurement to reach the best comfort possible for different life styles, and we determine that with our client that the bra described below are meeting her needs according to her type of surgery and life style. Delivered today: [facility] Manufacture Model L/R Quantity L8000 ABC 960-XL-BH 1 L8000 ABC 960-XL-BK 1 L8000 ABC [id number] 1 L8000 ABC [id number] 1 L8000 ABC [id number] 1 To Order:N/A Follow up: PRN Payment Info: paid $879.19 w/ CC to [facility], This will be submitted toward deductible. Retail: $100.00 for the sonia's -paid with cc to [facility]. (This was paid all in one transaction of $979.19) Delivery date: 04.19.2019 Cecilia agrees to this plan. documented in this encounter Plan of Treatment Not on filedocumented as of this encounter Visit Diagnoses Not on filedocumented in this encounter Care Teams Dairy Equipment Repairer Relationship Specialty Start Date End Date Christine Fuentes PA PCP - General Family Medicine 01/24/17 10/08/19 [address] [place] [address] documented as of this encounter
--- OUTSIDE RECORDS SUMMARY | 2021-12-24 14:48 | XMS_ITS | Encounter Summary ---
:[address] [facility] Address [address] [place] [address] Care Team Providers Name Role Phone Ernie Marcos PA-C Primary Care Provider [phone] Encounter Details Date Type Department Care Team Description 01/06/2017 Results Only [facility]- [facility] HarishdrewMaricarmenleigh Don, [address] [place], [place] [phone] (Wo rk) Social History Tobacco Use Types [...] Diagnosis Comme nts PAP TEST- RESULT Routine 01/06/2017 0:00 EST Resu lts for this ONLY procedure are i n the results section. documented in this encounter Results PAP TEST- RESULT ONLY (01/06/2017 0:00 EST) Pathology Report: CYTOPATHOLOGY REPORT [facility] Reports generated via electronic interface contain lee ginal data; SERVICES however they are lacking the format of the original re port. Caution should be taken when reading/interpreting unfo rmatted reports. Name: ? STEVE MARX ? Accession #: ? [id number] ? : ? 1955 (Age: 7 0) ??F ?Collect Da te: ? 01/06/2017 ? Location: ? [facility] ? Receive Date: ? 017 ? Provider: ERINE MARCOS PA-C Copy to: ? Final Report SPECIMEN ADEQUACY ? Satisfactory for Evaluation - transformation zone component present GENERAL CATEGORIZATION ? Negative for Intraepithelial Lesion or Malignan cy ?? Menstrual/ Status: ??Post Menopausal Specimen/Source: ??Pap Test, Cervix/Endocervix, ThinPr ep Imaging System with manual evaluation Document reviewed and electronically signed by: ? Whitney You, [facility](ASCP) ? Report ??Date: 01/20/2017 13:37 HPV with Pap Test ? Date Ordered: ? 01/20/2017 ? Status: ?? Signed Out ?Date Complete: ? 01/23/2017 ? By: ??Sy stem Interface ? Date Reported: ? 01/23/2017 ? Interpretation RESULT: Negative for HPV. No E6 or E7 mRNA is detected from HPV types 16,18,31,3 3,35, 39,45,51,52,56,58,59,66, and 68 by roving hauler media rajiv amplification. Comments Document reviewed and electronically signed by: ? System Interface ? Report date: 01/23/2017 By the signature above, the attending physician certif ies that he/she has personally conducted a gross and/or microscopic examin ation of the described specimens and rendered or confirmed the above diagnosi s. End of Report Specimen Performing Organization Address City/State/ZIP Code Phon e Number [facility] [address] [place] [address] SERVICES documented in this encounter Visit Diagnoses Not on filedocumented in this encounter Care Teams Core Dropper Relationship Specialty Start Date End Date Ernie Marcos PA-C PCP - General 10/23/[address] [place] [phone] documented as of this encounter
--- OUTSIDE RECORDS SUMMARY | 2021-12-24 14:48 | XMS_ITS | Encounter Summary ---
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 Hx of kidney stones Encounter Details Date Type Department Care Team Description 10/23/2016 Emergency [facility] Luis Orantes MD [address] [facility], [address] [place] [address] Flank pain (Primary Emergency Department Emergency, MD Tolu Dx) - [address] [address] Social History Tobacco Use Types Packs/Day Years Used Date Never Smoker Smokeless Tobacco: Never Used Alcohol Use Standard Drinks/Week Comments Yes 6 (1 standard drink = 0.6 oz pure alcoho l) Sex Assigned at Date Recorded Not on file documented as of this encounter Last Filed Vital Signs Vital Sign Reading Time Taken Comments Blood Pressure 136/88 10/23/2016 1927 EDT Pulse 88 10/23/2016 1930 EDT Temperature 35.8 ??C (96.4 ??F) 10/23/2016 1930 EDT Respiratory Rate 18 10/23/2016 1629 EDT Oxygen Saturation 96% 10/23/2016 1927 EDT Inhaled Oxygen Concentration - - Weight 74.8 kg (165 lb) 10/23/2016 1629 EDT Height 161.3 cm (5' 3.5) 10/23/2016 1629 EDT Body Mass Index 28.77 10/23/2016 1629 EDT documented in this encounter Discharge Diagnoses Diagnosis R10.9 Unspecified abdominal pain-R10.9[I CD-10-CM] R10.32 Left lower quadrant pain-R10.32[I CD-10-CM] F32.9 Major depressive disorder, single episode, unspecified-F32.9[ICD-10-CM] Z87.442 Personal history of urinary calc sage-Z87.442[ICD-10-CM] 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 Drink plenty of fluids. Initially retrict diet to clear fluids, then add solids as tolerated. 2. Continue all of your medications as prescribed. 3. Ibuprofen 600mg every 6 hours as needed for pain. Hydromorphone 2-4 mg every 4 hours as needed for pain. Return to the Emergency Department (ED) if your condition worsens, does not improve as expected, or for any other concerns. Specifically return if you have new or uncontrolled pain, worsening fever, difficulty breathing, vomiting, or are unable to drink fluids. AttachmentsThe following attachments cannot be sent through Care Everywhere. ABDOMINAL PAIN (MONTENEGRIN)documented in this encounter Medications at Time of Discharge Medication Sig Dispensed Refills Start Date End Date AMITRIPTYLINE HCL Take by mouth 0 (AMITRIPTYLINE ORAL) daily. aspirin chewable 81 mg Take 81 mg by mouth 0 tablet daily. BUPROPION HCL ORAL Take by mouth 0 daily. ESCITALOPRAM OXALATE Take by mouth 0 (LEXAPRO ORAL) daily. escitalopram oxalate Take 10 mg by mouth 0 (LEXAPRO) 10 mg tablet daily. LEVOTHYROXINE SODIUM Take by mouth 0 (LEVOTHYROXINE ORAL) daily. documented as of this encounter Discharge Disposition Disposition Code Departure Means Destination Home or Self Care Walk-out Home documented in this encounter ED Notes Luis Orantes MD - 10/23/2016 1645 EDT DOS: 10/23/2016 Chief Complaint Patient presents with ??? 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 Hx of kidney stones HPI The patient is a 61 y.o. 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 Hx of kidney stones) HPI Comments: I, Natty Kennedy, am scribing for Luis Orantes MD while he/she is personallyperforming the service. Natty Kennedy 10/23/2016 16:46 Cecilia Marx is a 61 y.o. female with a remote history of renal colic who presents with 30 minutesof sudden onset of left flank pain. At onset, patient was in heated argument with [id number]-vs-ndi. Sheendorses several days of subjective inability to empty bladder completely. Assocaited symptoms include nausea, weakness, dry heaves, and feeling bloated. Denies fever, chills, and dysuria. Pain radiates to back. She took usual medications this morning. The history is provided by the patient and the spouse. Review of Systems Review of Systems Constitutional: Negative for chills and fever. HENT: Negative. Negative for congestion, sore throat and trouble swallowing. Eyes: Negative. Negative for visual disturbance. Respiratory: Negative. Negative for chest tightness and shortness of breath. Cardiovascular: Negative. Negative for chest pain, palpitations and leg swelling. Gastrointestinal: Positive for nausea. Negative for abdominal distention and abdominal pain. Endocrine: Negative. Genitourinary: Positive for difficulty urinating (unable to empty bladder entirely ) and flank pain.Negative for dysuria and frequency. Musculoskeletal: Positive for back pain. Negative for arthralgias. Skin: Negative. Negative for rash. Allergic/Immunologic: Negative. Negative for immunocompromised state. Neurological: Positive for weakness. Negative for dizziness and headaches. Hematological: Negative. Negative for adenopathy. Does not bruise/bleed easily. Psychiatric/Behavioral: Negative. Negative for confusion. All other systems reviewed and are negative. Allergies Allergen Reactions ??? Macrobid [Nitrofurantoin Monohyd/M-Cryst] Rash Vital Signs Temp: 35.8 ??C (96.4 ??F) Temp src: Oral Pulse: 88 Resp: 18 SpO2: 96 % BP: 136/88 BP MAP: 99 mm Hg BP Device: BP Machine Patient Position: Sitting BP Cuff Location: Left arm Physical Exam Constitutional: She is oriented to person, place, and time. She appears well- developed and well-nourished. Localized pain to left flank and left lower quadrant with no tenderness. HENT: Head: Normocephalic and atraumatic. Eyes: Conjunctivae and EOM are normal. Pupils are equal, round, and reactive to light. Right eye exhibits no discharge. Left eye exhibits no discharge. Neck: Normal range of motion. Neck supple. No tracheal deviation present. Cardiovascular: Normal rate, regular rhythm and normal heart sounds. No murmur heard. Pulmonary/Chest: Effort normal and breath sounds normal. No respiratory distress. Abdominal: Soft. Bowel sounds are normal. She exhibits no distension. There is no tenderness. Musculoskeletal: Normal range of motion. She exhibits no edema. Neurological: She is alert and oriented to person, place, and time. Skin: Skin is warm and dry. No rash noted. Psychiatric: She has a normal mood and affect. Nursing note and vitals reviewed. RESULTS EKG orders: None Radiology orders: POCT US RENAL POCT US AORTA I performed a bedside renal US which was diagnostic for equal bilateral kidneys with no obvious UVJ.Patient also had aortic US, which was negative for aortic aneurism. Images obtained, reviewed, and interpreted independently by myself. Please see formal report in the [facility] Images section. Images saved in PACS. ED Lab Results Labs Reviewed POCT URINE DIPSTICK - Abnormal Result Value Status Blood 2+ (*) Final Leuk Esterase Trace (*) Final Color YELLOW Final Clarity, UA Clear Final Glucose Neg Final Bilirubin Neg Final Ketones Neg Final Specific Neoga 1.025 Final pH 5.5 Final Protein Neg Final Urobilinogen 0.2 Final Nitrite Neg Final Tech ID [id number] Final Relevant Data Procedures ED COURSE A medical screening exam was performed. The patient is a 61 y.o. 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 She has history of passing a kidney stone years ago. On exam, she has localized pain to left flank andleft lower quadrant with no tenderness. I preformed a bedside renal US, which was diagnostic for equal bilateral kidneys with no obvious UVJ. Aortic US was negative for aortic aneurism. Clinically improved after receiving IV toradol, dilaudid, LR, and reglan. Reviewed clinical and ultrasound findings. Given hydromorphone starter pack (2mg tablets) for discharge. Reviewed opioid consent with patient prior to discharge. Pt re-evaluated immediately prior to discharge with Good symptoms, normal vital signs, and tolerating PO. Pain level prior discharge: 9. The patient feels this is appropriate for outpatient management with oral analgesia. Discussed clinical/diagnostic findings. Discharged with a clear plan for outpatient follow up. Given usual and customary return instructions prior to discharge. ASSESSMENT AND PLAN Final diagnoses: Flank pain DISPOSITION: Discharged PCP: Christine ATKINS Number of Diagnoses or Management Options new, needed workup Amount and/or Complexity of Data Reviewed Clinical lab tests: ordered and reviewed Tests in the radiology section of CPT??: ordered and reviewed Discussion of test results with the performing providers: no Decide to obtain previous medical records or to obtain history from someone other than the patient: yes Obtain history from someone other than the patient: yes Review and summarize past medical records: yes Discuss the patient with other providers: no Independent visualization of images, tracings, or specimens: yes Risk of Complications, Morbidity, and/or Mortality Presenting problems: high Diagnostic procedures: high Management options: high General comments: 5 Patient Progress Patient progress: improved 10/26/2016 11:05 No flowsheet data found. This documentation is recorded by Natty Kennedy acting as Scribe under the direction and presence of Luis Orantes MD. Luis Orantes MD: I personally performed the services recorded by the scribe in my presence. I confirm the scribe's documentation has been reviewed by me to accurately and completely record my work, treatment, procedures, and medical decision making. documented in this encounter Plan of Treatment Not on filedocumented as of this encounter Procedures Procedure Name Priority Date/Time Associated Diagnosis Comme nts POCT US AORTA STAT 10/23/2016 19:26 Results fo r this EDT procedure are i n the results section. POCT URINE STAT 10/23/2016 18:10 Results for this DIPSTICK, CLINITEK EDT procedure are in the results section. POCT US RENAL STAT 10/23/2016 17:43 Results fo r this EDT procedure are i n the results section. documented in this encounter Results POCT US AORTA (10/23/2016 19:26 EDT) Anatomical Region Laterality Modality Other Specimen Narrative [facility] - 10/25/2016 11:35 EDT [facility] - Ultrasound Exam Date: 10/23/2016 Exam Type: POCT US ARTERIAL Behavioral Therapy Coordinator: Luis Orantes MD Attending: Luis Orantes MD Worksheet: POCUS_Aorta Exam Information: Indication(s) for Exam: ?? The exam was performed with the foll owing indications: Abdominal pain Views Obtained ?? Physician Signature: ALL OF THE ABOV E VIEWS OBTAINED Findings: ?? Exam of the above structures reveale d the following findings: No aneurysm ?? Aorta, tapering: Normal Interpretation: ?? Normal abdominal aorta exam, no aneu rysm Confirmatory study: ?? What confirmatory study was done?: N ot applicable Physician Signature: ?? I review and approve of the document ation above.: Signed by Luis Orantes MD on October at 11:35:27 AM This exam was performed and interpreted by the Emergency Department Staff Procedure Note Luis Orantes MD - 10/25/2016 [facility] - Ultrasoun d Exam Date: 10/23/2016 Exam Type: POCT US ARTERIAL Behavioral Therapy Coordinator: Luis Orantes MD Attending: Luis Orantes MD Worksheet: POCUS_Aorta Exam Information: Indication(s) for Exam: The exam was performed with the followi ng indications: Abdominal pain Views Obtained Physician Signature: ALL OF THE ABOVE V IEWS OBTAINED Findings: Exam of the above structures revealed t he following findings: No aneurysm Aorta, tapering: Normal Interpretation: Normal abdominal aorta exam, no aneurys m Confirmatory study: What confirmatory study was done?: Not applicable Physician Signature: I review and approve of the documentati on above.: Signed by Luis Orantes MD on October at 11:35:27 AM This exam was performed and interpreted by the Emergency Department Staff Performing Organization Address City/State/ZIP Code Phon e Number [facility] (ABNORMAL) POCT URINE DIPSTICK (10/23/2016 18:10 EDT) Color YELLOW [facility] Clarity, UA Clear [facility] Glucose Neg Neg [facility] Bilirubin Neg Neg [facility] Ketones Neg Neg [facility] Specific [place] 1.025 1.001 - 1.035 [facility] Blood 2+ (A) [facility] LABORATORY SERVICES pH 5.5 4.6 - 8.0 [facility] Protein Neg Neg [facility] Urobilinogen 0.2 0.2 - 1.0 [facility] Nitrite Neg Neg [facility] Leuk Esterase Trace (A) [facility] LABORATORY audiology director ID [id number]: [facility] Test performed at LABORATORY Emergency SERVICES Department Specimen Urine (substance) - Urine Performing Organization Address City/State/ZIP Code Phon e Number [facility] [address] [place] [address] SERVICES POCT US RENAL (10/23/2016 17:43 EDT) Anatomical Region Laterality Modality Other Specimen Narrative [facility] - 10/25/2016 11:34 EDT [facility] - Ultrasound Exam Date: 10/23/2016 Exam Type: POCT US RENAL Behavioral Therapy Coordinator: Luis Orantes MD Attending: Luis Orantes MD Worksheet: POCUS_Renal Exam Information: ?? A focused (limited) ultrasound of th e kidneys was performed to evaluate for hydronephrosis and nephroli thiasis. ?? Exam type: Clinically indicated Indication(s) for Exam: ?? The exam was performed with the foll owing indications: Abdominal pain, Flank pain Findings: ?? Hydronephrosis of the LEFT kidney: N one ?? Hydronephrosis of the RIGHT kidney: None ?? Ureteral calculi on the RIGHT: Absen t ?? Ureteral caculi on the LEFT: Absent Interpretation: ?? Normal limited renal ultrasound, no evidence of hydronephrosis or calculi Views Obtained ?? The following structures were examin ed in two orthogonal planes from a transabdominal approach: ALL OF T HE VIEWS ABOVE WERE OBTAINED Confirmatory study: ?? What confirmatory study was done?: N ot applicable Physician Signature: ?? I review and approve of the document ation above.: Signed by Luis Orantes MD on October at 11:34:18 AM This exam was performed and interpreted by the Emergency Department Staff Procedure Note Luis Orantes MD - 10/25/2016 [facility] - Ultrasoun d Exam Date: 10/23/2016 Exam Type: POCT US RENAL Behavioral Therapy Coordinator: Luis Orantes MD Attending: Luis Orantes MD Worksheet: POCUS_Renal Exam Information: A focused (limited) ultrasound of the k idneys was performed to evaluate for hydronephrosis and nephroli thiasis. Exam type: Clinically indicated Indication(s) for Exam: The exam was performed with the followi ng indications: Abdominal pain, Flank pain Findings: Hydronephrosis of the LEFT kidney: None Hydronephrosis of the RIGHT kidney: Non e Ureteral calculi on the RIGHT: Absent Ureteral caculi on the LEFT: Absent Interpretation: Normal limited renal ultrasound, no celia dence of hydronephrosis or calculi Views Obtained The following structures were examined in two orthogonal planes from a transabdominal approach: ALL OF T HE VIEWS ABOVE WERE OBTAINED Confirmatory study: What confirmatory study was done?: Not applicable Physician Signature: I review and approve of the documentati on above.: Signed by Luis Orantes MD on October at 11:34:18 AM This exam was performed and interpreted by the Emergency Department Staff Performing Organization Address City/State/ZIP Code Phon e Number [facility] documented in this encounter Visit Diagnoses Diagnosis Flank pain - Primary Abdominal pain, unspecified site documented in this encounter Administered Medications Inactive Administered Medications - up to 3 most recent administrations Medication Order MAR Action Action Date Dose Rate Site HYDROmorphone (DILAUDID) injection 1 Given 10/23/2016 17:14 EDT 1 mg mg 1 mg, intravenous, NOW X1, 1 dose, On 10/23/16 at 1700, STAT Hydromorphone 2 mg Tab STARTER PACK Given 10/23/2016 19:35 EDT 2 Packages 2 Package, oral, NOW X1, 1 dose, On 10/23/16 at 1930, STAT ketOROLAC (TORADOL) injection 15 mg Given 10/23/2016 17:14 EDT 15 mg 15 mg, intravenous, NOW X1, 1 dose, On 10/23/16 at 1700, STAT lactated ringers BOLUS 1,000 mL New Bag 10/23/2016 18:01 EDT 1,000 mL 1,000 mL, intravenous, NOW X1, 1 dose, On 10/23/16 at 1800, STAT metoCLOPramide (REGLAN) injection 10 mg Given 10/23/2016 18:41 EDT 10 mg 10 mg, intravenous, NOW X1, 1 dose, On 10/23/16 at 1830, STAT documented in this encounter Historical Medications This list may reflect changes made after this encounter. Medication Sig Dispensed Refills Start Date End Date BUPROPION HCL ORAL Take by mouth 0 daily. aspirin chewable 81 mg Take 81 mg by mouth 0 tablet daily. ESCITALOPRAM OXALATE Take by mouth 0 (LEXAPRO ORAL) daily. escitalopram oxalate Take 10 mg by mouth 0 (LEXAPRO) 10 mg tablet daily. AMITRIPTYLINE HCL Take by mouth 0 (AMITRIPTYLINE ORAL) daily. LEVOTHYROXINE SODIUM Take by mouth 0 (LEVOTHYROXINE ORAL) daily. added in this encounter Active and Recently Administered Medications Times are shown in EDT. Scheduled Medication Order 10/21/2016 10/22/2016 10/23/2016 HYDROmorphone (DILAUDID) injection 1 mg (COMPLETED) 1713 (Given - Provider: Vahid Del Toro RN) 1 mg, intravenous, NOW X1, 1 dose, 10/23/16 at 1700, STAT Hydromorphone 2 mg Tab STARTER PACK (COMPLETED) 1934 (Given - Provider: Valentín Florez RN) 2 Package, oral, NOW X1, 1 dose, 10/23/16 at 1930, STAT ketOROLAC (TORADOL) injection 15 mg (COMPLETED) 171 (Given - Provider: Vahid Del Toro RN) 15 mg, intravenous, NOW X1, 1 dose, 10/23/16 at 1700, STAT lactated ringers BOLUS 1,000 mL (COMPLETED) 180 (New Bag - Provider: Serena Agosto RN) 1,000 mL, intravenous, NOW X1, 1 dose, 10/23/16 at 1800, STAT metoCLOPramide (REGLAN) injection 10 mg (COMPLETED) 184 (Given - Provider: Valentín Florez, RN) 10 mg, intravenous, NOW X1, 1 dose, 10/23/16 at 1830, STAT documented in this encounter Orders Nursing Count Last Ordered Date First Ordered Date INSERT PERIPHERAL IV 1 10/23/2016 documented in this encounter Care Teams Product Marketing Consultant Relationship Specialty Start Date End Date Christine Fuentes PA-C PCP - General 10/23/[address] [place] [phone] documented as of this encounter
--- OUTSIDE RECORDS SUMMARY | 2021-12-24 14:48 | XMS_ITS | Encounter Summary ---
:1955 Author Organization [facility] Address [address] [place] [address] Care Team Providers Name Role Phone Unknown, Provider Primary Care Provider Encounter Details Date Type Department Care Team Description 09/08/2005 Results Only [facility] - Paulette Sarmiento, conversion PA-C [address] [place] [address] [place] [address] [phone] (Wo rk) Social History Tobacco Use Types Packs/Day Years Used Date Never Assessed Sex Assigned at Date Recorded Not on file documented as of this encounter Plan of Treatment Not on filedocumented as of this encounter Procedures Procedure Name Priority Date/Time Associated Diagnosis Comme nts CYTOPATHOLOGY Routine 09/08/2005 0:00 EDT Results for this procedure are i n the results section . documented in this encounter Results CYTOPATHOLOGY (09/08/2005 0:00 EDT) Pathology Report: CYTOPATHOLOGY REPORT [facility] Reports generated via electronic interface contain lee ginal data; however they are lacking the format of the original re port. Caution should be taken when reading/interpreting unfo rmatted reports. Name: ? STEVE MARX ? Accession #: ? [id number] : ? 1955 (Age: 50) ??F ?Collect Date: ? 08/21 Location: ? [facility] ? Receive Date : ? 09/13/2005 Provider: ?ERNIE COTO Copy to: ? Specimen/Source: ? ThinPrep Pap Test, Cervix/Endocervix, processed on [employer] ThinPrep Imaging System, with manual evaluation Last Menstrual Period: ? DILLON Previous Gynecologic Pathology: ? Yes: abnormal x1 Other: ? HPVA - HPV testing requested if ASC-US on the current ThinPrep Pap test. ? SPECIMEN ADEQUACY ? Satisfactory for Evaluation - transformation zone component present GENERAL CATEGORIZATION ? Epithelial Cell Abnormality INTERPRETATION ? Squamous Cell Abnormality - Low grade squamous intraepithelial lesion (LSIL). EDUCATIONAL NOTES/RECOMMENDATIONS ? [facility] recommends sung wing the 2001 Consensus Guidelines for the Management of Women with Cervical Cytological Abnormalities (SAMUEL Reeves,2002;287:2120-9). Management algorithms have b een distributed by [facility] and are available online at www.ASCCP.org. ? Document reviewed and electronically signed by: ? PHILOMENA PEARL MD ? Report Date: ??09/15/2005 14:56 End of Report Specimen Performing Organization Address City/State/ZIP Code Phon e Number [facility] [address] [place] [address] SERVICES [facility] [address] [place] [address] documented in this encounter Visit Diagnoses Not on filedocumented in this encounter Care Teams Splicing Technician Relationship Specialty Start Date End Date Unknown, Provider, PCP - General 02/02/10 10/22/16 documented as of this encounter
--- OUTSIDE RECORDS SUMMARY | 2021-12-24 14:48 | XMS_ITS | Encounter Summary ---
:1955 Author Organization [facility] [place] [address] Care Team Providers Name Role Phone Christine Fuentes Primary Care Provider Encounter Details Date Type Department Care Team Description 08/29/2018 Orders Only [place] [facility] [place]ath, Fatty liver [facility] [place] [address] [facility] [phone] GASTROENTEROLOGY DEPT [place], [place] [address] (Wo rk) Social History Tobacco Use Types [...] filedocumented as of this encounter Visit Diagnoses Diagnosis Fatty liver Other chronic nonalcoholic liver disease documented in this encounter Care Teams Build Master Relationship Specialty Start Date End Date Christine Fuentes PA PCP - General Family Medicine 01/24/17 10/08/19 [address] [place] [address] documented as of this encounter
--- OUTSIDE RECORDS SUMMARY | 2021-12-24 14:48 | XMS_ITS | Encounter Summary ---
:1955 Author Organization [facility] Address [address] [place] [address] Care Team Providers Name Role Phone Unknown, Provider Primary Care Provider Encounter Details Date Type Department Care Team Description 08/08/2016 Results Only [facility]- Sirena Tellez, [address] [place], [place] [id number] (Wo rk) Social History Tobacco Use Types Packs/Day Years Used Date Never Assessed Sex Assigned at Date Recorded Not on file documented as of this encounter Plan of Treatment Not on filedocumented as of this encounter Procedures Procedure Name Priority Date/Time Associated Diagnosis Comme nts SURGICAL PATHOLOGY Routine 08/08/2016 10:58 Resul ts for this EDT procedure are i n the results section. documented in this encounter Results SURGICAL PATHOLOGY (08/08/2016 10:58 EDT) Pathology SURGICAL PATHOLOGY REPORT [facility] Report: Reports generated via electronic interface conta in original data; CENTER however they are lacking the format of the original re port. LABORATORY Caution should be taken when reading/interpretin g unformatted reports. SERVICES Name: ? STEVE MARX ? Accession #: ? [id number] ? : ? 1955 (Age: 7 0) ??F ? Collect Date: ? 08/08/2016 ? Location: ? [facility] ? Receive Date: ? 08/10/19 17 ? Provider: SIRENA TINAJERO DO Copy to: ERNIE MARCOS PA-C ? Final Pathologic Diagnosis: A. ??SKIN OF FOREHEAD, MID, SHAVE BIOPSY: - Melanocytic nevus, intradermal type. B. ??SKIN OF CHEEK, LEFT LATERAL, SHAVE BIOPSY: - Actinic keratosis. ?? Microscopic Description: A-Sections are of a papule with mild epi dermal hyperplasia and hyperkeratosis. There is a proliferation of melanocytes within the dermis. ??The proliferation consists of nests, cords, and strands that dimin callie in size with descent into the dermis. ??The melanocyte s are slightly enlarged but generally have round-oval nuclei and a moderate amount of cytoplasm. ??The melan ocytes show camera operator maturation. ? B-The stratum corneum is thickened by orthohyperkerato sis with foci of parakeratosis. ??The epidermis is focally thicke malgorzata with elongate and bulbous rete ridges. ??The basal ker atinocytes show a variable degree of atypia including nuclear enlargement, dispola rity, and hyperchromasia. ??The dermis is marked by solar elastosis, vascular ectasia and a lymphohistiocy tic infiltrate. ??(Dr. Horner)/ljn Document reviewed and electronically signed by: DINA HORNER MD Report ??Date: 08/10/2016 12:37 By the signature above, the attending physician certif ies that he/she has personally conducted a gross and/or microscopic examin ation of the described specimens and rendered or confirmed the above diagnosi s. Specimen(s) Received: A. ??Mid forehead B. ??Left lateral cheek Clinical History: Enlarging/changing skin lesion(s); clinical diagnosis code: ??D49.2 Gross Description: A. ?Received in formalin labelled with proper p atient identification (initials R, D) and mid forehead is a 0.4 x 0.3 x 0. 1 cm circular shave granular white skin. The mar gin is inked blue. The specimen is submitted in toto in A1. B. ?Received in formalin labelled with proper p atient identification (initials R, D) and left la teral cheek are two irregular shaves of choe-white skin (0.6 x 0.5 x 0.1 cm and 0.8 x 0.8 x 0.1 cm) . The smaller tissue contains slight james discoloration but is otherwise unrema rkable. The margins are inked blue. The specimen is entire ly submitted in B1 (larger tissue, trisected) and B2 (smaller tissue, bisected). NNAMDI Hoyos ([facility]) 08/09/2016 2:33 PM End of Report Specimen Performing Organization Address City/State/ZIP Code Phon e Number [facility] [address] [place] [address] SERVICES documented in this encounter Visit Diagnoses Not on filedocumented in this encounter Care Teams Heat Treat Worker Relationship Specialty Start Date End Date Unknown, Provider, PCP - General 02/02/10 10/22/16 documented as of this encounter
--- OUTSIDE RECORDS SUMMARY | 2021-12-24 14:48 | XMS_ITS | Encounter Summary ---
:1955 Author Organization [facility] [place] [address] Care Team Providers Name Role Phone Christine Fuentes Primary Care Provider Encounter Details Date Type Department Care Team Description 09/11/2018 Telephone [facility] [place] [id number] Social History Tobacco Use Types Packs/Day [...] Notes Telephone Encounter - January Davis - 09/11/2018 3:59 PM EDT Cecilia Marx comes in today and would like to purchase some new bras just like the ones we fit herwith in March. Delivered to her today: ?? 110-L-C/D- white ?? We ordered her 3 more, Desert Edge,Sivleira, and Star flower. ?? She paid for all 4 of them today with CC $145.56 ?? F/up: 08/28/18 to black pickler the 3 we ordered today. ??Desert Edge,Silveira, and Star flower were mailed to pt and she confirmed she received them. documented in this encounter Plan of Treatment Not on filedocumented as of this encounter Visit Diagnoses Not on filedocumented in this encounter Care Teams Ceo & Board Director Relationship Specialty Start Date End Date Christine Fuentes PA PCP - General Family Medicine 01/24/17 10/08/19 [address] [place] [address] documented as of this encounter
--- OUTSIDE RECORDS SUMMARY | 2021-12-24 14:48 | XMS_ITS | Clinical Summary ---
:1955 Author Organization [facility] Address [address] [place] [address] Care Team Providers Name Role Phone Christine Fuentes PA-C Primary Care Provider [phone] Allergies Active Allergy Reactions Severity Noted Date Comments Nitrofurantoin Monohyd/M-Cryst Rash 10/23/2016 Medications Medication Sig Dispensed Refills Start Date End Date Status LEVOTHYROXINE SODIUM Take by mouth 0 Active (LEVOTHYROXINE ORAL) daily. AMITRIPTYLINE HCL Take by mouth 0 Active (AMITRIPTYLINE ORAL) daily. escitalopram oxalate Take 10 mg by 0 Active (LEXAPRO) 10 mg tablet mouth daily. ESCITALOPRAM OXALATE Take by mouth 0 Active (LEXAPRO ORAL) daily. aspirin chewable 81 mg Take 81 mg by 0 Active tablet mouth daily. BUPROPION HCL ORAL Take by mouth 0 Active daily. Medical History Medical History Date Comments Depression Social History Tobacco Use Types Packs/Day Years Used Date Never Smoker Smokeless Tobacco: Never Used Alcohol Use Standard Drinks/Week Comments Yes 6 (1 standard drink = 0.6 oz pure alcoho l) Sex Assigned at Date Recorded Not on file Last Filed Vital Signs Vital Sign Reading Time Taken Comments Blood Pressure 136/88 10/23/2016 1927 EDT Pulse 88 10/23/2016 1930 EDT Temperature 35.8 ??C (96.4 ??F) 10/23/2016 1930 EDT Respiratory Rate 18 10/23/2016 162 EDT Oxygen Saturation 96% 10/23/2016 192 EDT Inhaled Oxygen Concentration - - Weight 74.8 kg (165 lb) 10/23/2016 162 EDT Height 161.3 cm (5' 3.5) 10/23/2016 162 EDT Body Mass Index 28.77 10/23/2016 1629 EDT Plan of Treatment Health Maintenance Due Date Last Done Comments Hepatitis C Screen 1955 COVID-19 Vaccine (1) 1960 Care Teams Hospital Medicine Director Relationship Specialty Start Date End Date Christine Fuentes PA-C PCP - General 10/23/[address] [place] [id number]
--- OUTSIDE RECORDS SUMMARY | 2021-12-24 14:48 | XMS_ITS | Encounter Summary ---
:1955 Author Organization [facility] Address [address] [place] [address] Care Team Providers Name Role Phone Unknown, Provider Primary Care Provider Encounter Details Date Type Department Care Team Description 12/11/2013 Results Only [facility] Kayli Engel FNP Laboratory Services - [place] [address] [address] [place], [place] [id number] [phone] Social History Tobacco Use Types Packs/Day Years Used Date Never Assessed Sex Assigned at Date Recorded Not on file documented as of this encounter Plan of Treatment Not on filedocumented as of this encounter Procedures Procedure Name Priority Date/Time Associated Diagnosis Comme nts PAP TEST- RESULT Routine 12/11/2013 0:00 EDT Resu lts for this ONLY procedure are i n the results section. documented in this encounter Results PAP TEST- RESULT ONLY (12/11/2013 0:00 EDT) Pathology Report: CYTOPATHOLOGY REPORT [facility] Reports generated via electronic interface contain lee ginal data; however they are lacking the format of the original re port. Caution should be taken when reading/interpreting unfo rmatted reports. Name: ? STEVE MARX ? Accession #: ? [id number] : ? 1955 (Age: 58) ??F ?Collect Date: ? 11/21 Location: ? [facility] ? Receive Date : ? 12/13/2013 Provider: ?KAYLI ENGEL ELECTRONICS ENGINEERING PROFESSOR Copy to: ? Specimen/Source: ? Pap Test, Cervix/Endocervix, ThinPrep Imaging System with manual evaluation Last Menstrual Period: ? Many years ago Previous Gynecologic Pathology: ? ASC-US: Hx in 2010 ? SPECIMEN ADEQUACY ? Satisfactory for Evaluation - transformation zone component present GENERAL CATEGORIZATION ? Negative for Intraepithelial Lesion or Malignan cy ? Document reviewed and electronically signed by: ? NILDA Koroma(ASCP)(IAC) ? Report Date: ??12/18/2013 11:05 End of Report Specimen Performing Organization Address City/State/ZIP Code Phon e Number [facility] [address] [place] [address] SERVICES [facility] [address] [place] [address] documented in this encounter Visit Diagnoses Not on filedocumented in this encounter Care Teams Claims Administrator Relationship Specialty Start Date End Date Unknown, Provider, PCP - General 02/02/10 10/22/16 documented as of this encounter
--- OUTSIDE RECORDS SUMMARY | 2021-12-24 14:48 | XMS_ITS | Encounter Summary ---
:1955 Author Organization [facility] [place] [address] Care Team Providers Name Role Phone Unknown Primary Care Provider Unavailable Encounter Details Date Type Department Care Team Description 11/26/2019 Office Visit General Surgery at Shazia Boyd, J[place] ory of breast [facility], [facility] [place] [facility]GERY [address] [place] [address] [phone] Social History Tobacco Use Types Packs/Day Years [...] documented as of this encounter Progress Notes Shazia Boyd, MIRIAN - 11/26/2019 11:10 AM EDT Cecilia Marx is a [address] y[address] Brice, here for annual follow up. 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 She has no complaints today. She wonders if she has to follow up annually as she has no breast tissue. PE: She has a well-healed mastectomy incisions on bilateral chest wall. No erythema or seroma. No lymphedema of arms No adenopathy. Redundant tissue laterally on the left. Small amount of soft tissue/redundant tissue medially. Not tense or fluctuant. Imp: Cecilia Marx is a 64 y.o. female with history of right breast DCIS s/p PM and RT in 2010 s/p bilateral mastectomy and right SLNB. Well healed mastectomy sites with redundant soft tissue on the left medially and laterally. No evidence of seroma or persistent hematoma. Plan: Cecilia does not wish to have scheduled follow up at this time. She has a good PCP and will get chest wall exams annually. She knows to call for any concerns in the future and I would be happy to see her. Shazia Boyd APRN documented in this encounter Plan of Treatment Not on filedocumented as of this encounter Visit Diagnoses Diagnosis History of breast cancer Personal history of malignant neoplasm o f breast documented in this encounter Care Teams Alterations Manager Relationship Specialty Start Date End Date Unknown PCP - General 10/09/19 None documented as of this encounter
--- OUTSIDE RECORDS SUMMARY | 2021-12-24 14:49 | XMS_ITS | Encounter Summary ---
:1955 Author Organization [facility] [place] [address] Care Team Providers Name Role Phone Christine Fuentes Primary Care Provider Reason for Visit Auth/Cert Specialty Diagnoses / Procedures Referred By Contact Refer red To Contact Diagnoses breast cancer Procedures PRO MASTECTOMY, SIMPLE, COMPLETE PRO BX/REMV, LYMPH NODE, DEEP AXILL PRO INTRAOP SENTINEL LYMPH ID W/DYE INJECTION MASTECTOMY, SIMPLE, COMPLETE-CARITO (WRVU 15.85) BIOPSY OR EXCISION OF LYMPH NODE(S), OPEN, DEEP AXILLARY NODE(S) (WRVU 6.43) INTRAOPERATIVE ID (MAPPING) SENTINEL LYMPH NODE,INCLUDES INJECTION (VU 2.5) Referral ID Status Reason Start Date Expiration Date Visits Requ ested Visits Authorized [id number] 1 1 Encounter Details Date Type Department Care Team Description 03/15/2018 Surgery Main Operating Room Marla Zepeda V, MASTECTOMY, SIMPLE, Ashley Shaw MD COMPLETE-CARITO ([facility] [address]) [place] [address] [place] [address] [phone] Social History Tobacco Use Types Packs/Day Years [...] Sign Reading Time Taken Comments Blood Pressure 141/82 03/15/2018 2:32 PM EST Pulse 86 03/15/2018 2:32 PM EST Temperature 36.9 ??C (98.4 ??F) 03/15/2018 2:32 PM EST Respiratory Rate 16 03/15/2018 2:32 PM EST Oxygen Saturation 99% 03/15/2018 2:32 PM EST Inhaled Oxygen Concentration - - Weight 75.8 kg (167 lb) 03/15/2018 2:32 PM EST Height 162.6 cm (5' 4) 03/15/2018 2:32 PM EST Body Mass Index 28.67 03/15/2018 2:32 PM EST documented in this encounter Discharge Summaries Aleah Vigil, PEDIATRIC PHYSICAL THERAPY ASSISTANT - 03/16/2018 10:42 AM EST General Surgery Inpatient - Discharge Summary Patient Name: Cecilia Marx Patient Age: 62 y.o. Birthdate: 1955 Admit date: 03/15/2018 Discharge date: 03/16/18 Admitting Physician: Marla Blue MD Primary Diagnosis: Breast cancer Secondary Diagnosis: Active Hospital Problems Diagnosis ??? Breast cancer Resolved Hospital Problems No resolved problems to display. Active Non-Hospital Problems Diagnosis ??? Atypical ductal hyperplasia of left breast ??? DCIS (ductal carcinoma in situ) of breast HPI: Obtained from Dr. Marla Zepeda's Office Visit Note dated 02/21/18. Reason for Visit: Cecilia Marx is a 62 y.o. female referred back to me by Christine Fuentes for evaluation of right breast DCIS. ?? 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 She has had call backs in the past without any abdnormaliites. The most recent there was a new asymmetry with associated 0.8cm spiculated mass in the left breast. She underwent biopsy which came back with path complex sclerosing lesion and intraductal papilomw, not completely sampled. She is here today to discuss next steps in management. ?? Cecilia does not self breast exams but her PCP does. Prior to breast biopsy, she denies any pain in either breast, no skin changes, no breast or axillary lumps, no nipple discharge. The patient has gone through menopause at age 41s. She did take hormonal therapy for 2-4 years. She had 2 children, one son age 36 and one daughter age 31. She did not breast feed. She does have a history of previous DCIScontralateral breast w surgery and RT. Positive family history of breast cancer in her mother (age 50s) and great aunt. ?? Overall she feels quite well. Weight is stable and appetite is good. Denies fatigue. No recent migraines. No chest pain or SOB. No abd pain or blood in the stool. No new bony pain or tenderness.stoppeddrinking wine around Elisabet time due to depression. ?? Reports a left breast infection about 2-3 weeks after biopsy. Had redness, pain and inverted nipple.She was started on augmentin for 21 days and symptoms resolved. ?? Here today with her . Operations/Major Procedures: Operations: 03/15/2018 Surgeon(s) and Role: * Marla Zepeda MD - Primary * Sera Weller MD - Resident-Director Of Consulting Services * Vu Angela MD - Resident-Surgeon Tonny * Richie Szymanski MD - Resident-Surgeon Tonny: Procedure(s): MASTECTOMY, SIMPLE, COMPLETE-CARITO (WRVU 15.85) BIOPSY OR EXCISION OF LYMPH NODE(S), OPEN, DEEP AXILLARY NODE(S) (WRVU 6.43) INTRAOPERATIVE ID (MAPPING) SENTINEL LYMPH NODE,INCLUDES INJECTION (WRVU 2.5) Operative Findings: Right mastectomy performed and a palpable axillary node taken. No hot nodes identified via radiotracer. Left mastectomy preformed. JEFFRY drains left in both mastectomy sites. Hospital Course: Cecilia Marx was taken to the operating room where the above procedures were performed. She tolerated the operation well and without complication. She was admitted post-operatively for clinical monitoring and further management. The patient's hospital course was uncomplicated and she was deemed stable for discharge on post-operative day one. Important Studies and Lab Data: See below. Pathology: Final Surgical Pathology pending. Microbiology: None. Labs: No results found for: WBC, HGB, HCT, PLATELET No results found for: NA, K, CL, CO2, BUN, CREATININE, GLUCOSE Pending Lab Data at Discharge: Final Surgical Pathology pending. Studies: NM [place] Node Injection Breast wo Imaging (03/16): IMPRESSION [place] node injections performed without complication. Discharge Exam: Last value Range last 12 hrs Temperature Temp: 37 ??C (98.6 ??F) Temp: [37 ??C (98.6 ??F)] Heart Rate Heart Rate: 95 Heart Rate: -- Blood Pressure BP: 104/58 BP: (104-110)/(58-66) Respiratory Rate Resp: 16 Resp: [16] SpO2 SpO2: 95 % SpO2: [94 %-96 %] I/Os: I/O last 3 completed shifts: In: 2251 [P.O.:460; I.V.:1781; IV Piggyback:10] Out: 940 [Urine:650; Other:220; Blood:70] I/O this shift: In: - Out: 80 [Other:80] Gen: NAD, alert & oriented x3, pain well-controlled. Pulm: CTAB, no crackles/wheezes, no SOB. IS encouraged - pt reaching 1750 on IS. Card: RRR, no CP. Abd: + flatus, LBM 03/15 prior to surgery. Wound: Bilateral CW incisions with kerlex fluff dressing and KALYN wrap dressing in place - mild soft fullness noted to right axilla; bilateral JEFFRY drains with thin, sanguinous output. Ext: no edema, 2+ peripheral pulses Discharge Plans: Discharge to: Home VNA: Yes Name of facility: [facility] Contact information: PHONE: [phone] Discharge Conditions/Prognosis: Stable Discharge Medications: The following medications have been prescribed for you. If you notice any adverse reactions to your medications, please contact your primary care physician immediately or go to the nearest Emergency Department. Your Medications New Medications Dose Details magnesium citrate 100 mg Tab Take 2 tablets by mouth daily. 200 mg Refills: 0 multivitamin Tab Commonly known as: THERAGRAN Take 1 tablet by mouth daily. 1 tablet Refills: 0 oxyCODONE 5 mg Tab Commonly known as: ROXICODONE Take 1 tablet by mouth every 6 hours as needed for Pain (FOR PAIN UNCONTROLLED BY TYLENOL). 5 mg Quantity: 5 tablet Refills: 0 Continued medications with new dosing Dose Details acetaminophen 500 mg Tab Commonly known as: TYLENOL Take 2 tablets by mouth every 8 hours as needed for Pain. Indications: Pain What changed: when to take this 1000 mg Refills: 0 amitriptyline 10 mg Tab Commonly known as: ELAVIL Take 2 tablets by mouth nightly. What changed: how much to take 20 mg Refills: 0 buPROPion 100 mg Sr12 Commonly known as: WELLBUTRIN SR Take 1 tablet by mouth daily. What changed: ?? medication strength ?? how much to take ?? when to take this 100 mg Refills: 0 cholecalciferol (Vitamin D3) 2,000 unit Cap Take 1 capsule by mouth daily. What changed: ?? how much to take ?? when to take this 1 capsule Refills: 0 escitalopram 10 mg Tab Commonly known as: LEXAPRO Take 1 tablet by mouth daily. What changed: ?? how much to take ?? how to take this ?? when to take this 10 mg Refills: 0 fish oil-omega-3 fatty acids 1,000 mg Cap Take 1 capsule by mouth daily. What changed: how much to take 1200 mg Refills: 0 levothyroxine 88 mcg Tab Commonly known as: SYNTHROID Take 1 tablet by mouth daily. What changed: ?? medication strength ?? how much to take 88 mcg Refills: 0 Continued medications, unchanged Dose Details aspirin 81 mg Tbec Take 81 mg by mouth daily. 81 mg Refills: 0 hydrocortisone 2.5 % Crea Mix with ketoconazole and apply to affected areas in the groin twice daily as needed, then decrease to twice weekly. Quantity: 30 g Refills: 3 ketoconazole 2 % Crea Commonly known as: NIZORAL Mix with hydrocortisone and apply to affected areas in the groin twice daily as needed, then decrease to twice weekly Quantity: 30 g Refills: 3 STOPPED Medications ibuprofen 200 mg Tab Commonly known as: ADVIL;MOTRIN magnesium 250 mg Tab Updated Allergies/ADRs: Allergies Allergen Reactions ??? Adhesive Rash ??? Nitrofurantoin Monohyd/M-Cryst Rash,( Macrobid) Scheduled Appointments: Future Appointments Date Time Provider Department Center 03/30/2018 1:30 PM Marla Zepeda MD [facility] 03/30/2018 2:00 PM Avi Talbot MD [facility] Hem Onc [facility] 03/30/2018 3:15 PM Magdalena Madrigal, ANNABEL PT Rehab [facility] Outpatient Services/Studies: Referral to Home Health - at DISCHARGE Order Comments: DOCUMENTATION FOR VNA SERVICES (INCLUDING THOSE PATIENTS WITH MEDICARE COVERAGE REQUIRING HOME VNA SERVICES AND/OR HOSPICE SERVICES) PATIENT'S LOCATION: Cecilia Marx [address] [place] [address] [phone] (home) [phone] (cell) [employer]er's Name: Self In discussion with the attending physician, it is certified that this patient is under their care and that they, or a Nurse Practitioner,Clinical Nurse specialist or Physician Hand Profiler who is working directly with them, had a face to face encounter that meets the physician face to face encounter requirements with this patient on 03/16 The encounter with the patient was in whole, or in part, for the following medical condition, which is the primary reason for home health care services: 03/16 In discussion with the provider, it is certified that, based on their findings, the following services are medically necessary for home health services. To provide the following care/treatments with the clinical findings supporting the need for servicesas follows: HOME CARE ORDERS: RN ORDERS:Assess wound or incision, vital signs, cardiopulmonary status, nutrition, hydration, elimination, meds effectiveness and management; reinforce education re health issues. JEFFRY Drain care x 2. PT ORDERS: Continue rehab for endurance, gait stability and strength with mobility and transfers. Home safety evaluation only. Home exercise program if appropriate. HOME HEALTH CARE AGENCY: [facility]. PHONE: [phone] FAX: [phone] Start of care: 24-48 hrs after discharge Please note that any additional orders needs or changes will need to be obtained from this patient'sPCP: NNAMDI Nicole [address] / [place] [address] All A agencies which cover the area of patient's residence have been reviewed, either verbally or in writing, and patient/family have chosen the home health care agency noted Question Response Notes Agency name and contact information [facility] Patient location post discharge Home What services are requested Registered Nurse What services are requested Physical Therapy Start date 2018 Responsible MD post discharge contact info PCP, Dr. Zepeda Instructions Given to Patient at Discharge:. An After Visit Summary was printed and given to the patient. Patient Instructions Instructions following Mastectomy Without Reconstruction You had a bilateral mastectomy with RIGHT sentinel lymph node biopsy on 03/15/18. What to Expect Following Surgery: Swelling and/or bruising under and around the incision is normal. It is usually greatest on the second or third day following surgery. If swelling continues or becomes hard with worse pain, call to discuss your symptoms. Your sutures are dissolvable. Your scar will be most visible for 1-2 months following your operation and will gradually fade. As it heals, a scar looks more pink or red than the skinaround it. You may feel a ???healing ridge?? directly under the incision. This is normal and will go away when healing is complete. The skin above and below your incision will feel numb. This will improve over several months but some patients may have long-term decrease in sensation over these areas. Incision Care: Keep dressing on your incision for the next 2 days, then you may remove dressing/surgibra and leave incision open to air. You have surgical glue on your incision which has a purplish hue. This will flake off on its own. Once dressing is removed in 2 days you may shower and get incision wet. Pat dry immediately following. Do not scrub area vigorously for the next 2 weeks. Do not soak incision under water (i.e. bath or swimming) for the next 4 weeks to prevent a wound infection. Do not use any ointments/salves/Vitamin E on the incision until after your first follow-up appointment as these may impair early wound healing. Drain Care: Strip drain(s) at least 2 times per day. Empty drain(s) twice daily and record output. Call for drain removal when output less than 30cc per day for 2 consecutive days. [phone] You may shower with the drains in place. You can put a towel around your neck and pin drains to it. [facility] Drain Nursing Discharge Instructions: Inspect the skin around the insertion site daily for signs of infection such as: ??? Redness or swelling ??? Pus or drainage ??? Fever over 100 F (38 C) or chills ??? Increased pain or discomfort at the insertion site Washing instructions: ??? Gently wash the skin with tap water and pat dry ??? Rinse and air dry the skin before wearing clothes Tube Maintenance: ??? Make sure the tube is properly secured to prevent accidental removal. ??? Strip tubing and empty your drain in the morning and evening Record the drainage amount in a chart. Contact your physician if: ??? There is a significant change in drainage amount or color. ??? If the tube becomes dislodged. ??? If you notice signs of infection (see above). Diet & Activity: No restrictions in your diet are necessary. Activity as tolerated by your comfort level. You may return to work in 7 - 14 depending on your recovery. NO DRIVING for at least 8 hours following any dose of an opioid pain medication if one was prescribed for you. Pain Management: Take acetaminophen (Tylenol) 1000mg every 8 hours for the first 3-5 days following surgery to help minimize pain. NO Ibuprofen / NSAID's due to risk of bleeding post-operatively. Use opioid (Percocet, Vicodin, Tylenol #3) pain medications for severe pain, and do not take with alcohol. To prevent Tylenol overdose do not take Tylenol doses within 4-6 hours before or after these medications (they contain Tylenol as well) Opioid medications typically cause constipation, so we suggest using a stool softener in addition (metamucil, colace...etc.) You may apply ice or cold packs to the incision for 15-20 minutes several times a day for the first 2-3 days following surgery to help with discomfort Follow-up Appointment: Will be scheduled with Dr. Zepeda in 2-3 weeks Please call [phone] to confirm date and time of your appointment if you do not hear from us in the week. Call Doctor for: Worsening redness or drainage from your incision lasting longer than 5 days following surgery Any foul-smelling drainage from the incision Fevers greater than 101 degrees F Persistent nausea or vomiting (this may be related to opioid pain medications) Phone number for questions: [phone] before 5 PM weekdays [phone] after 5 PM and on weekends/holidays Future Appointments Date Time Provider Department Center 03/30/2018 1:30 PM Marla Zepeda MD [facility] 03/30/2018 2:00 PM Avi Talbot MD [facility] 03/30/2018 3:15 PM Magdaelna Madrigal, PT PT Rehab [facility] General Instructions None Acute Opioid Prescribing: Opioid PDMP 02/23/2018 [place] PDMP Query Date 03/16/2018 [place] PDMP Query Date 03/16/2018 Opioid Risk Assessment 02/23/2018 ORT Risk Assessment Moderate (4-7) Acute Opioid Specific Questions 02/23/2018 Date Acute Consent signed 03/16/2018 Considered the risk of opioid misuse, abuse, diversion? Yes Considered options for non-pharmacological modalities and non-opioid therapy? Yes Some recent data might be hidden Cecilia aMrx is being prescribed a prescription opioid for the treatment of acute post-operative pain related to surgery. Cecilia Marx has been advised to take the smallest dose possible to controltheir pain and as their pain improves to take smaller doses and increase the time between doses.The patient's risk for opioid misuse, abuse or diversion have been considered. In addition to this medication, non-opioid therapies and non-pharmacologic modalities such as heating pad, ice, and activity modification have been recommended as appropriate for adjunct treatment of their pain. I have discussed the risks and potential side effects of opioid medications, that include but are not limited to, addiction, overdose and , dependence, tolerance, osteoporosis, constipation, sexual dysfunction, hyperalgesia and crime victimization. The patient is also informed of: - the risks of keeping unused medication -counseled on keeping opioids locked -counseled on safe disposal of unused medication -dangers of operating a motor vehicle or heavy machinery -if a renewal is required, they shall return for an in-office follow up for reevaluation. The Acute Opioid Therapy Informed Consent form has been completed and sent to medical records for scanning to chart. Follow-up Recommendations for Providers: - Routine post-operative care. CC: NNAMDI Nicole Signed: Aleah Vigil APRN [facility] Surgical Oncology Service Team Pager #[phone] 03/16/2018 11:44 AM documented in this encounter Discharge Instructions Patient InstructionsAleah VigilMIRIAN - 03/16/2018 9:03 AM EST Instructions following Mastectomy Without Reconstruction You had a bilateral mastectomy with RIGHT sentinel lymph node biopsy on 03/15/18. What to Expect Following Surgery: Swelling and/or bruising under and around the incision is normal. It is usually greatest on the second or third day following surgery. If swelling continues or becomes hard with worse pain, call to discuss your symptoms. Your sutures are dissolvable. Your scar will be most visible for 1-2 months following your operation and will gradually fade. As it heals, a scar looks more pink or red than the skinaround it. You may feel a ???healing ridge?? directly under the incision. This is normal and will go away when healing is complete. The skin above and below your incision will feel numb. This will improve over several months but some patients may have long-term decrease in sensation over these areas. Incision Care: Keep dressing on your incision for the next 2 days, then you may remove dressing/surgibra and leave incision open to air. You have surgical glue on your incision which has a purplish hue. This will flake off on its own. Once dressing is removed in 2 days you may shower and get incision wet. Pat dry immediately following. Do not scrub area vigorously for the next 2 weeks. Do not soak incision under water (i.e. bath or swimming) for the next 4 weeks to prevent a wound infection. Do not use any ointments/salves/Vitamin E on the incision until after your first follow-up appointment as these may impair early wound healing. Drain Care: Strip drain(s) at least 2 times per day. Empty drain(s) twice daily and record output. Call for drain removal when output less than 30cc per day for 2 consecutive days. [phone] You may shower with the drains in place. You can put a towel around your neck and pin drains to it. [facility] Nursing Discharge Instructions: Inspect the skin around the insertion site daily for signs of infection such as: ??? Redness or swelling ??? Pus or drainage ??? Fever over 100 F (38 C) or chills ??? Increased pain or discomfort at the insertion site Washing instructions: ??? Gently wash the skin with tap water and pat dry ??? Rinse and air dry the skin before wearing clothes Tube Maintenance: ??? Make sure the tube is properly secured to prevent accidental removal. ??? Strip tubing and empty your drain in the morning and evening Record the drainage amount in a chart. Contact your physician if: ??? There is a significant change in drainage amount or color. ??? If the tube becomes dislodged. ??? If you notice signs of infection (see above). Diet & Activity: No restrictions in your diet are necessary. Activity as tolerated by your comfort level. You may return to work in 7 - 14 depending on your recovery. NO DRIVING for at least 8 hours following any dose of an opioid pain medication if one was prescribed for you. Pain Management: Take acetaminophen (Tylenol) 1000mg every 8 hours for the first 3-5 days following surgery to help minimize pain. NO Ibuprofen / NSAID's due to risk of bleeding post-operatively. Use opioid (Percocet, Vicodin, Tylenol #3) pain medications for severe pain, and do not take with alcohol. To prevent Tylenol overdose do not take Tylenol doses within 4-6 hours before or after these medications (they contain Tylenol as well) Opioid medications typically cause constipation, so we suggest using a stool softener in addition (metamucil, colace...etc.) You may apply ice or cold packs to the incision for 15-20 minutes several times a day for the first 2-3 days following surgery to help with discomfort Follow-up Appointment: Will be scheduled with Dr. Zepeda in 2-3 weeks Please call [phone] to confirm date and time of your appointment if you do not hear from us in the week. Call Doctor for: Worsening redness or drainage from your incision lasting longer than 5 days following surgery Any foul-smelling drainage from the incision Fevers greater than 101 degrees F Persistent nausea or vomiting (this may be related to opioid pain medications) Phone number for questions: [phone] before 5 PM weekdays [phone] after 5 PM and on weekends/holidays Future Appointments Date Time Provider Department Center 03/30/2018 1:30 PM Marla Zepeda MD [facility] 03/30/2018 2:00 PM Avi Talbot MD [facility] Hem Onc [facility] 03/30/2018 3:15 PM Magdalena Madrigal, PT PT Rehab [facility] AttachmentsThe following attachments cannot be sent through Care Everywhere. Surgical Drain Care (Latvian)documented in this encounter Medications at Time of Discharge Medication Sig Dispensed Refills Start Date End Date cholecalciferol, Take 1 capsule by 0 03/16/2018 Vitamin D3, 2,000 unit mouth daily. Capsule fish oil-omega-3 fatty Take 1 capsule by 0 2018 acids 1,000 mg Capsule mouth daily. acetaminophen (TYLENOL) Take 2 tablets by 0 03/16 500 mg mouth every 8 hours as TabletIndications: pain needed for Pain. Indications: Pain amitriptyline (ELAVIL) Take 2 tablets by 0 2018 10 mg Tablet mouth nightly. buPROPion (WELLBUTRIN Take 1 tablet by mouth 0 SR) 100 mg tablet daily. sustained-release 12 hr escitalopram (LEXAPRO) Take 1 tablet by mouth 0 0 03/16/2018 10 mg Tablet daily. levothyroxine Take 1 tablet by mouth 0 03/16/2018 (SYNTHROID) 88 mcg daily. Tablet multivitamin Take 1 tablet by mouth 0 03/16/2018 (THERAGRAN) Tablet daily. oxyCODONE (ROXICODONE) Take 1 tablet by mouth 5 tablet 0 0 03/16/2018 5 mg Tablet every 6 hours as needed for Pain (FOR PAIN UNCONTROLLED BY TYLENOL). hydrocortisone 2.5 % Mix with ketoconazole 30 g 3 06/20 Cream and apply to affected areas in the groin twice daily as needed, then decrease to twice weekly. ketoconazole (NIZORAL) Mix with 30 g 3 07/03/2017 2 % Cream hydrocortisone and apply to affected areas in the groin twice daily as needed, then decrease to twice weekly aspirin 81 mg EC tablet Take 81 mg by mouth 0 daily. magnesium citrate 100 Take 2 tablets by 0 019 03/30/2018 mg Tablet mouth daily. 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 A letter describing our affiliations was reviewed with them and they were educated about their right to choose where referrals are placed. Patient requests referral to [facility] [employer]. PHONE: [phone] FAX: [phone]. Expected date of discharge: 03/16/18. Referral routed to the [employer] for matching with agency/vendor and to provide any required information. Teresa Carcamo RN - 03/16/2018 7:55 AM EST 0700 assumed care of patient Assisted with breakfast tray Self sufficient No c/o pain Resting on andoff For d/c today Seen by Dr Zepeda 1000 J/P drains emptied and pnt demonstrated ability to empty and record drainage Seen by care mgt to set up VNA services Reviewed AVS 1030 Called Aleah COTO for d/c order Will wait until RX Given 1100 instructions by Aleah reviewed IV removed Wheeled to exit with Brad Pa MD - 03/16/2018 12:45 AM EST Post-Operative Progress Note Cecilia Marx 03/16/2018 Surgery/Issue: Procedure(s): MASTECTOMY, SIMPLE, COMPLETE-CARITO (WRVU 15.85) BIOPSY OR EXCISION OF LYMPH NODE(S), OPEN, DEEP AXILLARY NODE(S) (WRVU 6.43) INTRAOPERATIVE ID (MAPPING) SENTINEL LYMPH NODE,INCLUDES INJECTION (WRVU 2.5) Attending: Marla Zepeda MD Date of surgery: 03/15/2018 Preoperative diagnosis: breast cancer Findings: Right mastectomy performed and a palpable axillary node taken. No hot nodes identified via radiotracer. Left mastectomy preformed. JEFFRY drains left in both mastectomy sites. Subjective/Events: Pt was seen and examined. Pain well controlled. Noted to have post-operative nausea, but it has improved. Denies vomiting, chest pain, shortness of breath, numbness/weakness. Objcetive: Temp: [36.5 ??C (97.7 ??F)-36.9 ??C (98.4 ??F)] Heart Rate: [86-95] Resp: [14-21] BP: (101-141)/(55-87) Intake/Output Summary (Last 24 hours) at 03/16/2018 0021 Last data filed at 03/16/2018 0000 Gross per 24 hour Intake 2011 ml Output 445 ml Net 1566 ml No results found for: WBC, HGB, HCT, MCV, PLATELET Exam: General: appears in no acute distress, A/O x 3 HEENT: NC/AT Chest: CTA b/l, Left and Right JEFFRY drain to bulb suction with serosanguinous output Cardiac: RRR Abdomen: soft, NT/ND A/P: Cecilia Marx is a 62 y.o. female patient s/p bilateral mastectomy.Pain well controlled, denies nausea / vomiting, tolerating diet, ambulating, and voiding adequate UOP. Hemodynamically stable. Continue post-op management plan per primary team. Brad Ruano MD 03/16/18 General Surgery Resident, PGY-1 [place], Mackenzie Bazan RN - 03/15/2018 10:14 PM EST 5 - pt to pacu bay 14 via bed. Monitor and o2 attached with alarms set per pacu protocols. Pt identified with id band and per anesthesia. Report received and care resumed. Pt wakes easily to voice. naida Schafer. Oriented x 4. Pain in chest describes as burning 5/10 - iv meds started. sats good on mask and weaned to rooma ir - lujngs clear. Good cough on command. Vss. ivf infusing via left arm piv.No BP right arm. bilat venodynes on. Skin intact - pale pink, warm and dry,a febrile. bilat breast dressing with kalyn wrap intact - cdi. JEFFRY x 2 - right and left - both with scant serosang, both tubings stripped. Pt denies nausea. Scop patch noted behind left ear. No fernandez. Bladder scanned for 340 cc - pt denies urge to void at this time. Will check in 30 min. Pt in bed with head up. No belongings at bedside. Family updated in waiting room by MD. obs level of care admit - bed requested. 2229 - at bedside and updated - supportive. He will be staying in the [facility] overnight and will keep all pt belongings until the am. Pt having pain in breast area - po meds given. Slight nausea - iv zofran preventative. 2244 - left for hotel 2315 - pt stable. Nausea improved. Pain tolerable. Vss. Floor ready, no beds, will board overnight her ein pacu - moved to pacu 22. 2330 - ambulated to br - voided into toilet hat - 300 cc clear light blue urine. Pt rachell well. 0200 - stable and assessment unchanged. Pt sleeping well. 0600 - ambulated to BR - voided with ease and washed up in bathroom on own. Steady on ffet. Vss. Pain controlled. Dressing cdi. Small JEFFRY drainage - serosang bilat. rachell po fluids. scopalamine patch behind left ear remains intact. 0625 - team at bedside to discuss. 0700 - report to DAVID Ghosh and care transferred. documented in this encounter H&P Notes Vu Angela MD - 03/15/2018 5:38 PM EST General Surgery Interval H&P HPI: Cecilia Marx is a 62 y.o. 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 She now presents with complex sclerosing lesion and intraductal papilloma of the left breast. She is here for right mastectomy with SLNB and prophylactic left mastectomy. She denies anychanges in her health since being seen in clinic. She denies fevers, chills, cough, cold or rashes. O: Most Recent Vitals: 03/15/18 1432 BP: 141/82 Pulse: 86 Resp: 16 Temp: 36.9 ??C (98.4 ??F) SpO2: 99% Physical Exam: General: NAD, resting comfortably, pleasant, conversant HEENT: NCAT, EOMI CVS: Regular rate Pulm: nonlabored breathing Abd: soft, nontender, nondistended Skin: warm, dry Ext: no cyanosis, cap refill <2sec Neuro: grossly intact, nonfocal, moving all four extremities spontaneously ASSESSMENT/PLAN: Cecilia Marx is a 62 y.o. here for right mastectomy with SLNB and prophylactic left mastectomy. A consent was signed all questions were answered and she would like to proceed as planned. Vu Angela MD documented in this encounter Nursing Notes Lilliam Gill RN - 03/15/2018 7:41 PM EST Contacted Andrey Cordova at the research lab at 1925 and was instructed to leave them at the chargedesk in the main OR. #1 right breast tissue #2 left breast tissue. The specimen for research were taken to the desk and verified by Noemi. Pathology: #1 right breast taken out of the room to the front end developer designer by Rachana Leary RN at 2009, verified with Noemi and lab informed at 2012. #2 right axillary node #3 left breast tissue out at 2057 and sent to the front end developer designer at 2113 on 03/15/18, verified by Luis Womack and noemi that there were two specimens in the bag , right sentinal node andleft breast tissue. Contact the patient to update him on the procedure at 2025 on 03/15/18. documented in this encounter Miscellaneous Notes Op Note - Marla Zepeda MD - 03/16/2018 11:45 AM EST [facility] Operative Note Patient Name: Cecilia Marx : [id number] MR#: [id number] Case Date: 03/15/2018 Surgeon: Surgeon(s) and Role: * Marla Zepeda MD - Primary * Sera Weller MD - Resident-Director Of Consulting Services * Vu Angela MD - Resident-Surgeon Tonny * Richie Szymanski MD - Resident-Surgeon Tonny Preoperative diagnosis: breast cancer Postoperative diagnosis: breast cancer Procedure(s) (LRB): MASTECTOMY, SIMPLE, COMPLETE-CARITO (WRVU 15.85) (Bilateral) BIOPSY OR EXCISION OF LYMPH NODE(S), OPEN, DEEP AXILLARY NODE(S) (WRVU 6.43) (Right) INTRAOPERATIVE ID (MAPPING) SENTINEL LYMPH NODE,INCLUDES INJECTION (WRVU 2.5) (Right) Anesthesia: General Estimated Blood Loss: 70 mL Specimens removed during surgery: Order Name Source Comment Collection Info Order Time SPECIMEN TO PATHOLOGY Short stitch nielsen superior, long stitch nielsen lateral. breast cancer right breast excision Yes 03/15/2018 8:06 PM Number of tissue samples (in container) 1 Time specimen removed from patient: 8:04 PM SPECIMEN TO PATHOLOGY breast cancer RIGHT AXILLARY SENTINAL NODE excision 03/15/2018 9:00 PM Number of tissue samples (in container) 1 Time specimen removed from patient: 8:37 PM SPECIMEN TO PATHOLOGY SHORT STITCH SUPERIOR; LONG STITCH LATERAL breast cancer LEFT BREAST excision 03/15/2018 9:00 PM Number of tissue samples (in container) 1 Time specimen removed from patient: 8:58 PM Drains: Drain/Device Site 03/15/182048 Left breast collapsible closed device (Active) Insertion Site clean and dry;dressing intact 03/16/2018 6:00 AM Drain Device Number 2 03/16/2018 10:00 AM Drainage Characteristics/Odor sanguineous 03/16/2018 10:00 AM Drainage Amount small 03/16/2018 6:00 AM General Output (mL) 60 03/16/2018 10:00 AM Drain/Device Site 03/15/182053 Right breast collapsible closed device (Active) Insertion Site clean and dry;dressing intact 03/16/2018 6:00 AM Drain Device Number 1 03/16/2018 10:00 AM Drainage Characteristics/Odor serosanguineous 03/16/2018 10:00 AM Drainage Amount small 03/16/2018 6:00 AM General Output (mL) 20 03/16/2018 10:00 AM Surgical Closure: Primary Closure - skin incision is completely closed without any wires, evaristo, drains or other devices Disposition: awakened from anesthesia, extubated and taken to the recovery room in a stable condition, having suffered no apparent untoward event. Condition: doing well without problems (Please see the Surgical Encounter Summary for any Implant and Specimen details pertinent to this patient.) Operative Findings: Right Simple mastectomy was performed without evidence of immediate complications. Both radiotracer and isosulfan blue was used for mapping and there were no hot of blue nodes identified. There was one large palpable node that was identified and sent as SLN. It had a count of 40. Left prophylactic mastectomy was performed without complications. Operative Indications: Cecilia Marx is a 63 y.o. with history of right breast DCIS s/p PM and RT in 2009 now with a 8mm spiculated mass in the right breast with path showing complex sclerosing lesionand intraductal papilloma concern for DCIS. Plan for mastectomy and SLN, and left prophylactic mastectomy. Risks and benefits discussed. Consent signed. Operative Procedure: Cecilia Marx was admitted through Same Day Surgery. She was brought up to Radiology where technesium was injected in the right breast. She was brought to the Operating Room and laid supine on the operating table. General anesthetics were administered, and an LMA was placed for airway protection. Lymphozurin was injected in the retroareolar breast and massage was carried out for5 minutes. The chest was prepped and draped in a sterile fashion with chloroprep. Time-out confirmedthe patient's identity, the correct surgical site, and the administration of prophylactic antibiotics. Once this had been confirmed, attention was turned to the right breast. An elliptical incision inclusive the nipple-areolar complex was made sharply. This was brought through the dermis using electrocautery. Skin flaps were elevated circumferentially inferiorly to the inframammary fold, laterally to the latissimus border, medially to the sternal border, and superiorly to the infraclavicular border. The breast was then mobilized inclusive of the underlying pectoralis major fascia. Throught the mastectomy incisions, using the gamma probe the right axilla was probed to identify an area of uptake. Dissection was carried down through the clavipectoral fascia to expose the axillary lymph node basin. The gamma probe did not identify a signal in any specific area. We did careful searhcing through level I and II and did not identify any hot or blue nodes. There was on large, palpable and distinguinable node that was removed and sent at SLN. It had a low count of 40 (not more than background) and no blue dye. The wound was irrigated and hemostasis achieced. Moist lap placed and we proceded to the other side. We brought our attention to the left breast. An elliptical incision inclusive the nipple-areolar complex was made sharply. This was brought through the dermis using electrocautery. Skin flaps were elevated circumferentially inferiorly to the inframammary fold, laterally to the latissimus border, medially to the sternal border, and superiorly to the infraclavicular border. The breast was then mobilized inclusive of the underlying pectoralis major fascia. A 15Fr bard channel drain was placed and secured with a 2-0 prolene suture to the skin on both sides, exciting out the lateral inferior flap.. The wound was irrigated and hemostasis was achieved. The dermis was reapproximated with a complex layer of numerous interrupted 3-0 Vicryl deep dermal stiches followed by running 4-0 Monocryl suture. The incisions were covered with dermabond and a sterile gauze fluffs followed by a compressive kalyn wrap dressing. A time out for closure was performed. All counts were reported to me verbally as correct. She was awakened from anesthesia, extubated in the OR and brought to the recovery room in hemodynamically stable condition. Infection Bundle used? N/A Attestation: Case Date: 03/15/2018 I was present and I participated during the entire procedure. MARLA ZEPEDA MD Brief Op Note - Marla Zepeda MD - 03/15/2018 8:53 PM EST Brief Operative Note Patient Name: Cecilia Marx : [id number] MR#: [id number] Case Date: 03/15/2018 Surgeon: Surgeon(s) and Role: * Marla Zepeda MD - Primary * Sera Weller MD - Resident-Director Of Consulting Services * Vu Angela MD - Resident-Surgeon Tonny Preoperative diagnosis: breast cancer Postoperative diagnosis: breast cancer Procedure(s) (LRB): MASTECTOMY, SIMPLE, COMPLETE-CARITO (WRVU 15.85) (Bilateral) BIOPSY OR EXCISION OF LYMPH NODE(S), OPEN, DEEP AXILLARY NODE(S) (WRVU 6.43) (Right) INTRAOPERATIVE ID (MAPPING) SENTINEL LYMPH NODE,INCLUDES INJECTION (WRVU 2.5) (Right) Anesthesia: General Findings: Right mastectomy performed and a palpable axillary node taken. No hot or blue nodes identified. Left mastectomy preformed. Complications: non apparent. Estimated Blood Loss: 75cc Specimens removed during surgery: Order Name Source Comment Collection Info Order Time SPECIMEN TO PATHOLOGY Short stitch nielsen superior, long stitch nielsen lateral. breast cancer right breast excision Yes 03/15/2018 8:06 PM Number of tissue samples (in container) 1 Time specimen removed from patient: 8:04 PM Fluids: per anesthesia record PRBCs: none (See Anesthesia Record/Report for Other Blood Products) Urine Output: No fernandez Drains: 2 15 Fr bard channel drains Disposition: awakened from anesthesia, extubated and taken to the recovery room in a stable condition, having suffered no apparent untoward event. Condition: doing well without problems (Please see the Surgical Encounter Summary for any Implant and Specimen details pertinent to this patient.) Infection Bundle used? N/A Attestation: Case Date: 03/15/2018 I was present and I participated during the entire procedure. MARLA ZEPEDA MD documented in this encounter Plan of Treatment Not on filedocumented as of this encounter Procedures Procedure Name Priority Date/Time Associated Comments Diagnosis SPECIMEN TO PATHOLOGY Routine 03/15/2018 9:00 PM Results for this EST procedure are i n the results section. SPECIMEN TO PATHOLOGY Routine 03/15/2018 9:00 PM Results for this EST procedure are i n the results section. SPECIMEN TO PATHOLOGY Routine 03/15/2018 8:06 PM Results for this EST procedure are i n the results section. SURGICAL PATHOLOGY Routine 03/15/2018 8:04 PM Res ults for this REPORT EST procedure are i n the results section. INTRAOPERATIVE ID 03/15/2018 6:17 PM breast cancer (MAPPING) SENTINEL EST LYMPH NODE,INCLUDES INJECTION (WRVU 2.5) BIOPSY OR EXCISION OF 03/15/2018 6:17 PM breast cancer LYMPH NODE(S), OPEN, EST DEEP AXILLARY NODE(S) (WRVU 6.43) MASTECTOMY, SIMPLE, 03/15/2018 6:17 PM breast cancer COMPLETE-CARITO (WRVU EST 15.85) documented in this encounter Results Specimen to Pathology (03/15/2018 9:00 PM EST) Specimen Anatomical Collection Method Collection Time Receive d Time (Source) Location / / Volume Laterality AP Specimen 03/15/2018 9:00 PM 9 9:38 EST PM [address] [facility] [place]15/2018 9:38 PM EST Specimen requisition ordered. ??Separate Pathology report to follow Resulting Agency Comment Spec In Lab Marla Blue MD PATHOLOGY/CYTOLOGY ORDERABLE S Performing Organization Address City/[facility]/[place] [address] Specimen to Pathology (03/15/2018 9:00 PM EST) Specimen Anatomical Collection Method Collection Time Receive d Time (Source) Location / / Volume Laterality AP Specimen 03/15/2018 9:00 PM 9 9:37 EST PM [address] [facility] [place] 03/15/2018 9:38 PM EST Specimen requisition ordered. ??Separate Pathology report to follow Resulting Agency Comment Spec In Lab Marla Blue MD PATHOLOGY/CYTOLOGY ORDERABLE S Performing Organization Address City/[facility] [place] [address] Specimen to Pathology (03/15/2018 8:06 PM EST) Specimen Anatomical Collection Method Collection Time Receive d Time (Source) Location / / Volume Laterality AP Specimen 03/15/2018 8:06 PM 9 8:06 EST PM [address] [facility] [place] 03/15/2018 8:06 PM EST Specimen requisition ordered. ??Separate Pathology report to follow Marla Blue MD PATHOLOGY/CYTOLOGY ORDERABLE S Performing Organization Address City/State/ZIP Code Phon e Number [place] [address] Surgical Pathology Report (03/15/2018 8:04 PM EST) Component Value Ref Test Analysis Performed At [facility] gist Range Method Time Signature Surgical [id number] ? Location: PACU; PA22; A [facility]SH[facility] Pathology YG Report The signing pathologist has (i) examined the relevant preparation(s) for the [facility] specimen(s) and (ii) rendered or confirmed the diagnosis(es) . HOSPITAL LABORATORY . ?Surgic al Pathology DIAGNOSIS A - Right breast, mastectomy: - Ductal carcinoma in-situ (see Synoptic Report and Discussi on) - Atypical ductal hyperplasia and flat epithelial atypia - Usual ductal hyperplasia - Changes consistent with prior surgical site - Recent biopsy site changes B - Right axillary sentinel node, excision: Four lymph nodes, no malignancy identified (0/4) C - Left breast, mastectomy: - Focal atypical lobular hyperplasia - Intraductal papillomas, sc lerosing adenosis, columnar cell change/hyperplasia, usual ductal hyperplasia, and apocrine cysts - Changes consistent with prior surgical site Synoptic Report Specimen ? Procedure: ??Total mastectomy ? Specimen Laterality: ?? Right Tumor ? Histologic Type: ?? Ductal carcinoma in situ ? Size (Extent) of DCIS: ?? 50 Millimeters (mm) ? Architectural Patterns: ?? [place], Micropapilla ry, Solid ? Nuclear Grade: ?? Grade II (intermediate) ? Accessory Findings ?Necrosis: ??Present, central (expans jorje comedo necrosis) ?Microcalci fications: ?? Present in DCIS, Present in nonneoplastic tissue Margins ? Margins: ??Uninvolved by DCIS ?Distance o f DCIS from Posterior Margin: ?1.5 Millimeters (mm) Lymph Nodes ? Regional Lymph Nodes: ?? Uninvolved by tumor ce lls ?Number of [place] Nodes Examined: ?4 Pathologic Stage Classification (pTNM, AJCC 8th Edition) ? Primary Tumor (pT): ?? pTis (DCIS) ? Regional Lymph Nodes (pN) ?Modifier: ??(sn): [place] node(s) evaluat ed. ?Category (pN): ?? pN0 Tumor Block(s): ?? A11 CAP eCC February 2017 Agile Release ER and MN studies (performed on prior biopsy, [id number] ): ER: Positive (>90%, strong) MN: Positive (50%, moderate to strong) Electronically signed by: ??Antonio BANGURA, Delon Lewis Verified: ??03/22/2018 ?Pathologist Performed at: ??-[facility] Dept. of Pathology, [place], [place] . DISCUSSION An admixture of atypical augusta finn hyperplasia and ductal carcinoma in-situ is present within a 5.0 cm grossly jose r ntified mass, which also contains scar and recent biopsy site changes. CLINICAL INFORMATION Specimen Submitted: A - Right breast B - Right axillary sentinel node C - Left breast Clinical History and Diagnosis: Breast cancer SPECIMEN PROCESSING A - Labeled/Fixative: Right breast, fresh. Quantity/Size/Weight: Single, 25 x 20.5 x 6.8 cm, 906 g. SPECIMEN DESCRIPTION Resection Specimen: Intact, right, simple mastectomy. A short suture designates superior and a long suture designates lateral. Skin: 16 x 7.4 cm, with no identifiable scars or lesions. Nipple: 1.0 cm diameter, rubbery, everted. Deep Margin: Focally irregul ar at the central deep margin, at the site of prior excision. LESION (1) ??Radiologic Correlation: date: 02/16/18. ??Description: 5.0 x 2.5 x 0.7 cm, red-james, firm, biopsy cavity, with ill-defined borders. ??Location: Deep central. ??Distance from nipple: 6 cm. ??Clip: Not identified. ??Margins: 0.1 cm to the deep margin. ??Distance from lesion 2: Lesion 1 appears contiguous with lesion 2. LESION (2) ??Radiologic Correlation: date: 02/16/18. ??Description: 1.5 x 1.0 x 0.7 cm, pink-red, firm, biopsy site, with ill-defined borders. ??Location: Deep central. ??Distance from nipple: 5.8 cm. ??Clip: Identified. ??Margins: 0.2 cm to the deep margin. OTHER Parenchyma: Yellow lobulated adipose tissue with scant white fibrous tissue. Ink Designation: Superficial is blue, deep is black. Sections/Processing: Cloth Cutting Machine Operator sections in 22 cassettes as follows: ? A1: ??Serially sectioned nipple ? A2: ??Cross section at base of nipple ? A3-A17: ??Entire lesi on 1 from lateral to medial, (10) cylinder clip, (9-14) with lesion 2 ? A18: ??Closest perpendicular superficial margin ? A19: ??Fibrous tissue upper outer quadrant ? A20: ??Fibrous tissue lower outer quadrant ? A21: ??Fibrous tissue lower inner quadrant ? A22: ??Fibrous tissue upper inner quadrant Ischemic Time: 1.2 hours ?chinyere B - Labeled/Fixative: Right axillary sentinel node, fresh. Quantity/Size: Fragments, aggregating 5.6 x 1.2 x 0.9 cm. Tissue Description: Adipose tissue with 4 possible nodes, up to 2.5 cm. . SPECIMEN PROCESSING Sections/Processing: ??Cloth Cutting Machine Operator sections in 6 cassette s as follows: ? B1: ??Single node ? B2: ??Single node ? B3: ??Single node ? B4-B6: ??Largest node serially sectioned with a djacent adipose tissue C - Labeled/Fixative: Left breast, fresh. Quantity/Size/Weight: Single, 25.0 x 22.0 x 5.8 cm, 1029 g. SPECIMEN DESCRIPTION Resection Specimen: Intact, left, simple ??mastectomy. Orientation: Short stitch superior, long stitch lateral. Skin: 16 x 7 cm, unremarkable, james-pink. Nipple: 1.1 cm diameter, rubbery, everted. Deep Margin: Smooth. OTHER Parenchyma: Sections reveal focally dense white breast tissue interspersed amongst lobules of adipose tissue. In some sections, soft cystic structures are noted. Ink Designation: Deep/black; superficial/blue. Sections/Processing: Cloth Cutting Machine Operator sections in 12 cassettes as follows: ? C1: ? Nipple ? C2: ? Base of nipple ? C3-C4: ?Cloth Cutting Machine Operator upper outer quadrant ? C5-C6: ?Cloth Cutting Machine Operator lower inner quadrant ? C7-C8: ?Cloth Cutting Machine Operator central ? C9-C10: ?? Cloth Cutting Machine Operator upper inner quadrant ? C11-C12: ??Cloth Cutting Machine Operator lower inner quadrant Ischemic Time: 0.8 hours ??pps Specimen (Source) Anatomical Collection Method Collection Time Re ceived Time Location / / Volume Laterality 03/15/2018 8:04 PM EST Marla Blue MD PATHOLOGY/CYTOLOGY ORDERABLE S Performing Organization Address City/State/[place] [address] documented in this encounter Visit Diagnoses Not on filedocumented in this encounter Admitting Diagnoses Diagnosis Breast cancer Malignant neoplasm of breast (female), u nspecified site documented in this encounter Administered Medications Inactive Administered Medications - up to 3 most recent administrations Medication Order MAR Action Action Date Dose Rate Site acetaminophen (TYLENOL) tablet Given 03/16/2018 6:11 AM EST 1,00 0 mg 1,000 mg 1,000 mg, Oral, EVERY 8 HOURS SCHEDULED, First dose on Arpita 03/15/18 at 2245, Until Discontinued, Maximum dose of acetaminophen is 4000 mg from all sources in 24 hours., Routine Given 03/15/2018 10:27 PM EST 1,000 mg escitalopram (LEXAPRO) tablet 10 mg Given 03/16/2018 9:00 AM EST 10 mg 10 mg, Oral, DAILY, First dose on Mon03/16/18 at 0900, Until Discontinued, Routine fentaNYL (PF) 50mcg/mL injection Given 03/15/2018 10:52 PM EST 50 mcg 25-50 mcg, Intravenous, EVERY 5 MIN PRN, Starting on Arpita 03/15/18 at 2117, Until Arpita 03/15/18 at 2319, Pain, Give 25 mcg every 5 minutes PRN for mild to moderate pain (1-5) Give 50 mcg every 5 minutes PRN for moderate to severe pain (6-10). Hold for respiratory rate less than 10 per minute. Maximum dose 250 mcg over one hour. If ordered with hydromorphone or morphine, give hydromorphone or morphine first and use fentanyl for breakthrough pain., PACU Recovery, Routine Given 03/15/2018 10:18 PM EST 25 mcg Given 03/15/2018 10:06 PM EST 25 mcg lactated Ringers infusion 1,000 New Bag 03/15/2018 10:08 PM ES T 1,000 mLs 100 mL/hr mL 1,000 mL, at 100 mL/hr, Intravenous, CONTINUOUS, Starting on Arpita 03/15/18 at 1500, Until Arpita 03/15/18 at 2220, Day of Surgery (Day of Procedure) New Bag 03/15/2018 7:30 PM EST New Bag 03/15/2018 6:13 PM EST levothyroxine (SYNTHROID) tablet 88 mcg Given 03/16/2018 9:00 AM EST 88 mcg 88 mcg, Oral, DAILY, First dose on Mon03/16/18 at 0900, Until Discontinued, Routine ondansetron (ZOFRAN) injection 4 mg Given 03/15/2018 10:31 PM EST 4 mg 4 mg, Intravenous, EVERY 30 MIN PRN, Starting on Arpita 03/15/18 at 2117, Until Arpita 03/15/18 at 2319, Nausea, May repeat 4 mg once in 30 minutes. If multiple antiemetics ordered, use ondansetron first and if ineffective use prochlorperazine second and if ineffective use promethazine, PACU Recovery ondansetron (ZOFRAN) injection 4 mg 4 mg, Intravenous, EVERY 8 HOURS PRN, St arting on Arpita 03/15/18 at 2319, Until Mon03/16/18 at 1349, Nausea, May repeat time s one in 30 minutes if ineffective. If multiple antiemetics are ordered, use ondansetron firs t, Recovery (Recovery-Hospital Unit) ondansetron (ZOFRAN) tablet 4 mg 4 mg, Oral, EVERY 8 HOURS PRN, Starting on Arpita 03/15/18 at 2319, Until Mon03/16/18 at 1349, Nausea, Vomiting, If multipl e antiemetics are ordered, use ondansetron first. PO Preferred. If patient unable to take PO, may give IV if ordered. May repeat times one in 45 minutes if ineffe ctive., Recovery (Recovery-Hospital Unit), Routine oxyCODONE (ROXICODONE) immediate release Given 03/15/2018 10:27 PM EST 5 mg tablet 5 mg 5 mg, Oral, EVERY 6 HOURS PRN, Starting on Mon03/15/18 at 2220, Until Mon03/15/18 at 2256, Pain, for severe pain (8-10), Routine oxyCODONE (ROXICODONE) immediate release tablet Given 03/16/2018 1:52 AM EST 5 mg 5-10 mg 5-10 mg, Oral, EVERY 6 HOURS PRN, Starting on Mon03/15/18 at 2220, Until Mon03/16/18 at 1349, Pain, 5mg for pain scale 5 or greater not relieved by Tylenol. Repeat 5mg if no improvement after 1 hour., Routine scopolamine (TRANSDERM-SCOP) Patch Applied 03/15/2018 6:15 PM EST 1 p atch Left Ear 1 mg over 3 days patch 1 patch 1 patch, Transdermal, EVERY 72 HOURS, First dose on Mon03/15/18 at 2000, Until Discontinued, Day of Surgery (Day of Procedure), Routine Given 03/15/2018 6:13 PM EST 1 patch scopolamine (TRANSDERM-SCOP) 1 mg over 3 days patch 1 dose, Starting on Mon03/15/18 at 1812, Until Mon03/15/18 at 1815, Francisca Olmos (lasha): cabinet override sodium chloride 0.9 % flush 5 mL Given 03/16/2018 9:00 AM EST 5 mLs 5 mL, Intravenous, 2 TIMES DAILY, First dose on Mon03/15/18 at 2345, Until Discontinued, Recovery (Recovery-Hospital Unit), Routine Given 03/15/2018 11:41 PM EST 5 mLs documented in this encounter Active and Recently Administered Medications Times are shown in EST. Scheduled Medication Order 03/14/2018 03/15/2018 03/16/2018 acetaminophen (TYLENOL) tablet 1,000 mg 2227 (Given - Provider: Mackenzie Strickland RN) 0611 (Given - Provider: Mackenzie Strickland RN) 1,000 mg, Oral, EVERY 8 HOURS SCHEDULED, First dose on Mon03/15/18 at 2245, Until Discontinued, Maximum dose of acetaminophen is 4000 mg from all sources in 24 hours., Routine aspirin EC tablet 81 mg 899 (Du e) 81 mg, Oral, DAILY, First dose on Mon at 0900, Until Discontinued, Routine buPROPion (WELLBUTRIN SR or ZYBAN) SR tablet 150 mg 899 (Due) 150 mg, Oral, DAILY, First dose on Mon at 0900, Until Discontinued, DO NOT CRUSH OR OPEN, Routine ceFAZolin (ANCEF) 2g in dextrose 5% 100 mL (COMPLETED) 1836 (Given - Provider: Francisca Olmos)2136 (Given - Provider: Francisca Olmos) 2 g, Intravenous, EVERY 3 HOURS, 1 dose, First dose on Mon03/15/18 at 1500, Administer over 30 Minutes, Intra-Operative (Intra-Procedure), Indication for (Active or Suspected): Prophylaxis escitalopram (LEXAPRO) tablet 10 mg 0900 (Given - Provider: Teresa Johnson RN) 10 mg, Oral, DAILY, First dose on Mon at 0900, Until Discontinued, Routine levothyroxine (SYNTHROID) tablet 88 mcg 899 (Given - Provider: Teresa Johnson RN) 88 mcg, Oral, DAILY, First dose on Mon at 0900, Until Discontinued, Routine scopolamine (TRANSDERM-SCOP) 1 mg over 3 days patch 1 patch (CANCELED) 1812 (Given - Provider: Francisca Olmos)1814 (Patch Applied - Provider: Francisca Olmos) 1 patch, Transdermal, EVERY 72 HOURS, Fi rst dose on Mon03/15/18 at 2000, Until Discontinued, Day of Surgery (Day of Procedure), Routine sodium chloride 0.9 % flush 5 mL 2341 (Given - P rovider: Mackenzie Strickland RN) 0900 (Given - Provider: Teresa Johnson RN) 5 mL, Intravenous, 2 TIMES DAILY, First dose on Arpita 03/15/18 at 2345, Until Discontinued, Recovery (Recovery-Hospital Unit), Routine Continuous Medication Order 03/14/2018 03/15/2018 03/16/2018 lactated Ringers infusion 1,000 mL (CANCELED) 181 (New Bag - Provider: Francisca Olmos)193 (New Bag - Provider: Francisca Olmos)2150 (Stopped - Provider: Sanjuana Loja CRNA)2207 (New Bag - Provider: Mackenzie Strickland RN) 1,000 mL, at 100 mL/hr, Intravenous, CON TINUOUS, Starting Arpita 03/15/18 at 1500, Until Arpita 03/15/18 at 2220, Day of Surgery (Day of Procedure) PRN Medication Order 03/14/2018 03/15/2018 03/16/2018 amitriptyline (ELAVIL) tablet 20 mg 20 mg, Oral, NIGHTLY PRN, Starting Arpita at 2220, Until Mon03/16/18 at 1349, Sleep, Routine fentaNYL (PF) 50mcg/mL injection (CANCELED) 2205 (Given - Provider: Mackenzie Strickland RN)221 (Given - Provider: Mackenzie Strickland RN)225 (Given - Provider: aMckenzie Strickland RN) 25-50 mcg, Intravenous, EVERY 5 MIN PRN, Starting Arpita 03/15/18 at 2117, Until Arpita 03/15/18 at 2319, Pain, Give 25 mcg every 5 minutes PRN for mild to moderate pain (1-5) Give 50 mcg every 5 minutes PRN fo r moderate to severe pain (6-10). Hold f or respiratory rate less than 10 per minute. Maximum dose 250 mcg over one hour. If ordered with hydromorphone or morphine, give hydromorphone or morphine first a nd use fentanyl for breakthrough pain., PACU Recovery, Routine ibuprofen (ADVIL;MOTRIN) tablet 600 mg 600 mg, Oral, EVERY 6 HOURS PRN, Startin g Arpita 03/15/18 at 2220, Until 03/16/18 at 1349, Pain, for moderate pain (5-7), Administer orally with milk or food to minimize GI irritation. Maximum dose of 3200 mg from all sources in 24 hours, Routine lidocaine (XYLOCAINE) 10 mg/mL (1 %) injection 3 mg 3 mg (0.3 mL), Subcutaneous, ONCE PRN, 1 dose, Starting Arpita 03/15/18 at 2319, Until Mon03/16/18 at 1349, for discomfort with PIV insertion, Recovery (Recovery-Hospital Unit), Routine ondansetron (ZOFRAN) injection 4 mg (CANCELED) 2230 (Given - Provider: Mackenzie Strickland RN) 4 mg, Intravenous, EVERY 30 MIN PRN, Sta rting Arpita 03/15/18 at 2117, Until Arpita 03/15/18 at 2319, Nausea, May repeat 4 mg once in 30 minutes. If multiple antiemetics ordered, use ondansetron first and if ineffective use prochlorperazine second and if ineffective use promethazine, PACU Recovery ondansetron (ZOFRAN) injection 4 mg(Linked Group 1) 4 mg, Intravenous, EVERY 8 HOURS PRN, St arting Arpita 03/15/18 at 2319, Until Mon03/16/18 at 1349, Nausea, May repeat times one in 30 minutes if ineffective. If multiple antiemetics are ordered, use onda nsetron first, Recovery (Recovery-Hospital Unit) ondansetron (ZOFRAN) tablet 4 mg(Linked Group 1) 4 mg, Oral, EVERY 8 HOURS PRN, Starting Arpita 03/15/18 at 2319, Until Mon03/16/18 at 1349, Nausea, Vomiting, If multiple antiemetics are ordered, use ondansetron first. PO Preferred. If patient unable to take PO, may give IV if ordered. May repeat times one in 45 minutes if ineffective., Recovery (Recovery-Hospital Unit), Routine oxyCODONE (ROXICODONE) immediate release tablet 5 mg (CANCEL ED) 2226 (Given - Provider: Mackenzie Strickland RN) 5 mg, Oral, EVERY 6 HOURS PRN, Starting Arpita 03/15/18 at 2220, Until Arpita 03/15/18 at 2256, Pain, for severe pain (8-10), Routine oxyCODONE (ROXICODONE) immediate release tablet 5-10 mg 0152 (Given - Provider: Ceferino Irvin RN) 5-10 mg, Oral, EVERY 6 HOURS PRN, Starti ng Arpita 03/15/18 at 2220, Until 03/16/18 at 1349, Pain, 5mg for pain scale 5 or greater not relieved by Tylenol. Repeat 5mg if no improvement after 1 hour., Routine sodium chloride 0.9 % flush 5-20 mL 5-20 mL, Intravenous, EVERY 1 MIN PRN, S tarting Arpita 03/15/18 at 2319, Until 03/16/18 at 1349, flush, Flush pertains to all indwelling lines. Flush per protocol found in the job aid using the link prov ided on this medication record., Recovery (Recovery-Hospital Uni t), Routine Linked Groups Order Group 1: ondansetron (ZOFRAN) tablet 4 mgJump to med 4 mg, Oral, EVERY 8 HOURS PRN, Starting Arpita 03/15/18 at 2319, Until 03/16/18 at 1349, Nausea, Vomiting
If multiple antiemetics are ordered, use ondansetron first. PO Preferred. If patient unable to take PO, may give IV if ordered. May repeat times one in 45 minutes if ineffective.
Recovery (Recovery-Hospital Unit), Routine Or ondansetron (ZOFRAN) injection 4 mgJump to med 4 mg, Intravenous, EVERY 8 HOURS PRN, St arting Arpita 03/15/18 at 2319, Until 03/16/18 at 1349, Nausea
May repeat times one in 30 minutes if ineffective. If multiple antiemetics are ordered, use ondansetron first
[facility] (Recovery-Hospital Unit) documented in this encounter Care Teams Painter Airbrush Relationship Specialty Start Date End Date Christine Fuentes PA PCP - General Family Medicine 01/24/17 10/08/19 [address] [place] [address] documented as of this encounter
--- OUTSIDE RECORDS SUMMARY | 2021-12-24 14:49 | XMS_ITS | Encounter Summary ---
:1955 Author Organization [facility] [place] [address] Care Team Providers Name Role Phone Christine Fuentes Primary Care Provider Encounter Details Date Type Department Care Team Description 03/01/2018 Orders Only Hematology and Aliyah Connors Research subject Oncology at [facility] (Primary Dx) [facility] [place] [address] [place] [address] [phone] Social History Tobacco Use Types Packs/Day Years Used Date Former Smoker Quit: 10/19/19 12 Smokeless Tobacco: Never Used Alcohol Habits Answer Date Recorded How often [...] documented as of this encounter Miscellaneous Notes Addendum Note - Aliyah Connors RN - 03/01/2018 9:19 AM EST Addended by: ALIYAH CONNORS on: 03/14/2018 11:17 AM Modules accepted: Orders documented in this encounter Plan of Treatment Not on filedocumented as of this encounter Visit Diagnoses Diagnosis Research subject - Primary 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
--- OUTSIDE RECORDS SUMMARY | 2021-12-24 14:49 | XMS_ITS | Encounter Summary ---
:1955 Author Organization [facility] [place] [address] Care Team Providers Name Role Phone Christine Fuentes Primary Care Provider Encounter Details Date Type Department Care Team Description 05/10/2018 Telephone General Surgery at [facility] Christina Fay, [place] [address] Social History Tobacco Use Types Packs/Day Years [...] this encounter Miscellaneous Notes Telephone Encounter - Christina Fay, RN - 05/10/2018 11:28 AM EDT Nursing Triage - Phone Note DATE OF CALL: 05/10/2018 TIME OF CALL: 11:29 AM PATIENT DATE OF : 1955 CALLER: Pt to the General Surgery [facility] Learning Needs Assessment Reviewed: Yes SUBJECTIVE - I had a double mastectomy and I need a root canal is that okay? PERTINENT PAST MEDICAL HISTORY: PT is s/p Patient Name: Cecilia Marx : [id number] MR#: [id number] ?? Case Date: 03/15/2018 ?? Surgeon: Surgeon(s) and Role: * Marla Brice MD - Primary * Sera Weller MD - Resident-Lead Ramp Service Man * Vu Angela MD - Resident-Surgeon Tonny * Richie Szymanski MD - Resident-Surgeon Tonny ?? Preoperative diagnosis: breast cancer ?? Postoperative diagnosis: breast cancer ?? Procedure(s) (LRB): MASTECTOMY, SIMPLE, COMPLETE-CARITO (WRVU 15.85) (Bilateral) BIOPSY OR EXCISION OF LYMPH NODE(S), OPEN, DEEP AXILLARY NODE(S) (WRVU 6.43) (Right) INTRAOPERATIVE ID (MAPPING) SENTINEL LYMPH NODE,INCLUDES INJECTION (WRVU 2.5) (Right) ?? NURSING OBJECTIVE/ASSESSMENT: Okay to have a root canal INTERVENTION/PLAN/ FOLLOW UP: left a message If your symptoms do not improve, or they worsen, report to your local emergency department. CALLER AGREES: Yes PCP: NNAMDI Nicole documented in this encounter Plan of Treatment Not on filedocumented as of this encounter Visit Diagnoses Not on filedocumented in this encounter Care Teams Dry Starch Supervisor Relationship Specialty Start Date End Date Christine Fuentes PA PCP - General Family Medicine 01/24/17 10/08/19 [address] [place] [address] documented as of this encounter
--- OUTSIDE RECORDS SUMMARY | 2021-12-24 14:49 | XMS_ITS | Encounter Summary ---
:1955 Author Organization [place] [address] Care Team Providers Name Role Phone Christine Fuentes Primary Care Provider Encounter Details Date Type Department Care Team Description 08/09/2018 Notes Only [facility] [place] [address] Social History Tobacco Use Types Packs/Day Years [...] this encounter Progress Notes January Davis - 08/09/2018 11:00 AM EDT Cecilia Marx comes in today and would like to purchase some new bras just like the ones we fit herwith in March. Delivered to her today: 110-L-C/D- white We ordered her 3 more, Regino Ramirez,Silveira, and Star flower. She paid for all 4 of them today with CC $145.56 F/up: 08/28/18 to vegetable picker the 3 we ordered today. documented in this encounter Plan of Treatment Not on filedocumented as of this encounter Visit Diagnoses Not on filedocumented in this encounter Care Teams Mini Shifter Relationship Specialty Start Date End Date Christine Fuentes PA PCP - General Family Medicine 01/24/17 10/08/19 [address] [place] [address] documented as of this encounter
--- OUTSIDE RECORDS SUMMARY | 2021-12-24 14:49 | XMS_ITS | Encounter Summary ---
:1955 Author Organization [facility] [place] [address] Care Team Providers Name Role Phone Christine Fuentes Primary Care Provider Encounter Details Date Type Department Care Team Description 02/22/2018 Telephone General Surgery at [facility] [place] [address] Social History Tobacco Use Types Packs/Day Years [...] this encounter Miscellaneous Notes Telephone Encounter - Elaine Snog - 02/22/2018 2:47 PM EST Cecilia called to inform Dr Brice she has decided not to have breast reconstruction and has cancelled her Plastic Surgery appointment. She would like to be scheduled for surgery with Dr Brice as soonas possible. Will inform Dr Brice. documented in this encounter Plan of Treatment Not on filedocumented as of this encounter Visit Diagnoses Not on filedocumented in this encounter Care Teams Yeast Fermentation Attendant Relationship Specialty Start Date End Date Christine Fuentes PA PCP - General Family Medicine 01/24/17 10/08/19 [address] [place] [address] documented as of this encounter
--- OUTSIDE RECORDS SUMMARY | 2021-12-24 14:49 | XMS_ITS | Encounter Summary ---
:1955 Author Organization [facility] [place] [address] Care Team Providers Name Role Phone Christine Fuentes Primary Care Provider Encounter Details Date Type Department Care Team Description 01/22/2018 Hospital Encounter Mammography at [facility] Rhoda Brumfield Breast cancer screening, hig h risk patient; [facility] B, DIRECTOR ALUMNI RELATIONS History of breast cancer Drive [facility] [id number] GENERAL SURGERY [phone] [place], [place] [address] Social History Tobacco Use Types Packs/Day Years [...] on file documented as of this encounter Medications at Time of Discharge Medication Sig Dispensed Refills Start Date End Date hydrocortisone 2.5 % Mix with ketoconazole 30 [...] Take 81 mg by mouth 0 daily. buPROPion (WELLBUTRIN Take by mouth. 0 03/16/2018 SR OR ZYBAN) 150 mg Tablet Sustained Release 12 hr fish oil-omega-3 fatty Take 2 g by mouth 0 03/16/2018 acids 1,000 mg Capsule daily. ibuprofen Take 200 mg by mouth 0 02/21 (ADVIL;MOTRIN) 200 mg every 6 hours as Tablet needed for Pain. magnesium 250 mg Tablet Take by mouth. 0 03/16/2018 escitalopram (LEXAPRO) 0 12/26/2016 10 mg Tablet levothyroxine Take 75 mcg by mouth 0 0 03/16/2018 (SYNTHROID) 75 mcg daily. Tablet Cholecalciferol, Take by mouth. 0 02/21 Vitamin D3, 2,000 unit Capsule amitriptyline (ELAVIL) 30mg, PO, QHS 0 05/04/2010 03/16/2018 10 mg tablet documented as of this encounter Plan of Treatment Not on filedocumented as of this encounter Procedures Procedure Name Priority Date/Time Associated Diagnosis Comme nts MAMMO SCREENING CAD Routine 01/22/2018 10:07 AM Breast cancer Results for this AND IMMANUEL BILATERAL EST screening, high risk p rocedure are in patient the results History of breast section. cancer documented in this encounter Results Mammo Screening Cad and Immanuel Bilateral (01/22/2018 10:07 AM EST) Anatomical Region Laterality Modality Breast Bilateral Mammography Specimen (Source) Anatomical Location Collection Method / Collectio n Time Received Time / Laterality Volume Impressions 01/22/2018 10:44 AM EST BIRADS CATEGORY 0: INCOMPLETE MAMMOGRAM. Needs additional imaging evaluation. RECOMMENDATION: The patient will be contacted regarding the additional imaging. Narrative 01/22/2018 10:44 AM EST REASON FOR EXAM: Screening TECHNIQUE: CC and MLO views were obtaine d of the Bilateral breast.Computer aided detection was used. 3D tomosynthesis jay ges were obtained in addition to 2D images. FINDINGS: Breast density:There are scattered areas of fibroglandular density. Left breast. ??There are no suspicious m icrocalcifications, masses, or areas of distortion. New postsurgical changes The Right breast is abnormal and additio nal imaging is required. There is a ??1.2 cm of note microcalcifications in the de ep central RIGHT breast, 8 cm from the nipple Rhoda Brumfield APRN IMG MAMMO ORDERABLES documented in this encounter Visit Diagnoses Diagnosis Breast cancer screening, high risk patie nt Screening mammogram for high-risk patien t History of breast cancer Personal history of malignant neoplasm o f breast documented in this encounter Care Teams Hospice Admitting Clerk Relationship Specialty Start Date End Date Christine Fuentes PA PCP - General Family Medicine 01/24/17 10/08/19 [address] [place] [address] documented as of this encounter
--- OUTSIDE RECORDS SUMMARY | 2021-12-24 14:49 | XMS_ITS | Encounter Summary ---
:1955 Author Organization [facility] [place] [address] Care Team Providers Name Role Phone Christine Fuentes Primary Care Provider Encounter Details Date Type Department Care Team Description 03/30/2017 Notes Only Mammography at [facility] Evans Almanzar MD [facility] [place] [address] DIAGNOSTIC RADIOLOGY [phone] [place] [id number] (Wo rk) Social History Tobacco Use Types [...] documented as of this encounter Progress Notes Evans Almanzar MD - 03/30/2017 7:59 AM EST Pre-procedure note for needle breast biopsies performed in radiology. Procedure date: Today Procedure type: left breast NLOC Allergies: Nitrofurantoin monohyd/m-cryst Medications: Current Outpatient Prescriptions: ??? buPROPion (WELLBUTRIN SR OR ZYBAN) 150 mg Tablet Sustained Release 12 hr, Take by mouth., Disp: , Rfl: ??? fish oil-omega-3 fatty acids 1,000 mg Capsule, Take 2 g by mouth daily., Disp: , Rfl: ??? ibuprofen (ADVIL;MOTRIN) 200 mg Tablet, Take 200 mg by mouth every 6 hours as needed for Pain., Disp: , Rfl: ??? magnesium 250 mg Tablet, Take by mouth., Disp: , Rfl: ??? amoxicillin-clavulanate (AUGMENTIN) 500-125 mg Tablet, take 1 tablet by mouth twice a day, Disp:, Rfl: 0 ??? escitalopram (LEXAPRO) 10 mg Tablet, , Disp: , Rfl: ??? levothyroxine (SYNTHROID) 75 mcg Tablet, Take 75 mcg by mouth daily., Disp: , Rfl: ??? Cholecalciferol, Vitamin D3, 2,000 unit Capsule, Take by mouth., Disp: , Rfl: ??? aspirin 81 mg EC tablet, Take 81 mg by mouth daily., Disp: , Rfl: ??? amitriptyline (ELAVIL) 10 mg tablet, 30mg, PO, QHS, Disp: , Rfl: Anticoagulation status: low dose aspirin stopped on: N/A Imaging reviewed and procedural plan approved by Dr. EVANS ALMANZAR MD documented in this encounter Plan of Treatment Not on filedocumented as of this encounter Visit Diagnoses Not on filedocumented in this encounter Care Teams Marine Engineer Cpvec Relationship Specialty Start Date End Date Christine Fuentes PA PCP - General Family Medicine 01/24/17 10/08/19 [address] [place] [address] documented as of this encounter
--- OUTSIDE RECORDS SUMMARY | 2021-12-24 14:49 | XMS_ITS | Encounter Summary ---
:1955 Author Organization [facility] [place] [address] Care Team Providers Name Role Phone Christine Fuentes Primary Care Provider Reason for Visit Consultation (Routine) - Closed Specialty Diagnoses / Procedures Referred By Contact Refer red To Contact Hematology and Diagnoses Breast cancer screening, high risk patient History of breast cancer Rhoda Brumfield, William Hem Onc Office Oncology MONORAIL HELPER [address] [place] [address] D R Sullivan, [place] GENERAL SURGERY [address] [place] [address] Referral ID Status Reason Start Date Expiration Date Visits V isits Requested Authorized [id number] Closed Consult, 04/13/2017 04/13/2018 1 1 Test & Treat Encounter Details Date Type Department Care Team Description 04/20/2017 Office Visit Hematology/Oncology Amaury Stack Aty pical ductal at [facility] MD hyperplasia of left [address] [place] [address] [place] [address] [phone] (Wo rk) Social History Tobacco Use Types [...] Sign Reading Time Taken Comments Blood Pressure 127/89 04/20/2017 3:06 PM EST Pulse 93 04/20/2017 3:06 PM EST Temperature 36.8 ??C (98.2 ??F) 04/20/2017 3:06 PM EST Respiratory Rate 16 04/20/2017 3:06 PM EST Oxygen Saturation 98% 04/20/2017 3:06 PM EST Inhaled Oxygen Concentration - - Weight 77.6 kg (171 lb) 04/20/2017 3:06 PM EST Height 160.5 cm (5' 3.19) 04/20/2017 3:06 PM actual, n o shoes EST Body Mass Index 30.11 04/20/2017 3:06 PM EST documented in this encounter Progress Notes Yasemin Smith, RN - 04/20/2017 3:00 PM EST MEDICAL ONCOLOGY INITIAL NURSING ASSESSMENT ADVANCE DIRECTIVES: In EDH [ ] Has documents [ ] Will bring in [ ] None IF NO: Advance Directive pamphlet provided : Referral to Care Management : PRESENTING SYSTEMS and PATHOLOGY: as per Dr. Stack REVIEW OF SYSTEMS: as per Dr. Stack Prior Radiotherapy: no[ ] Yes[ x ]Site _R breast Date 2009 Facility Prior Chemotherapy: no[x ] Yes[ ] Drug: Oncologist- LastTreatment: NO: YES: Claustrophobia or requires sedation for MRIs x Allergy to CT or MRI contrast agent or iodine or shellfish x Diabetic and on metformin x Metal in body, implanted device, worked with metal, body piercings,braces x Dentures or hearing device x Pacemaker x Difficulty breathing while lying flat x Kidney problems/creatinine x Balance difficulty: [ x ]no [ ]yes At risk for fall: [x ] no [ ] yes If yes, actions implemented to prevent fall. Patient/family instructed to avoid independent ambulation. Use wheelchair and ask for assistance of staff while in the clinic. ADL [x ] no limits [ ] needs dressing assistance [ ] needs meal assistance Assistive device:[ ]none [ ]cane [ ]walker [ ]wheelchair [ ]other: explain PAIN ASSESSMENT: [ 0 ] out of 10 Location: Description: [ ] Dull [ ] Sharp [ ] Burning [ ] Throbbing [ ] Radiating [ ] Continuous [ ]Intermittent Aggravating Factors: [ ] Movement [ ] Position [ ]Immobility [ ]Other Alleviating Factors: [ ]Medication [ ] Positioning [ ] Other Current Pain Management Plan: [ x ]Satisfied [ ] Not satisfied SOCIAL ASSESSMENT: See [facility] social assessment information entered. Support Systems: transportation plan: [ x]private vehicle [ ] RCT needs Social Work referral [ ] Unknown at this time needs Social Work referral Barriers to treatment: Referrals/Interventions: LEARNING STYLE: Visual and verbal, wants written material and verbal discussion. TEACHING: __ NCI ???Chemotherapy and You?? 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 Newly diagnosed atypical ductal hyperplasia with other atypia findings left breast Subjective: Cecilia comes in today for medical oncology discussion in regards to her newly diagnosed atypia and ductal hyperplasia. She has a good understanding of the situation and knows that she does not have cancer. She is here today to discuss whether or not she wants to consider taking tamoxifen for risk reduction as far as future development of a breast cancer. We discussed the situation in detail went over her pathology. She has questions including whether one would ever consider bilateral mastectomies in this situation which I told her I did not think that was the case. She does have a slight increase inrisk by the Shana model and as such could benefit from prophylactic tamoxifen for 5 years as far as reducing that risk. Additional subjective was whether or not she should do genetic testing. She has several relatives with breast cancer and I believe testing would be indicated but she has no interest in doing that even though she knows if she was positive for the bracketing one would consider prophylactic mastectomies but certainly one would consider oophorectomies. She has discussed this with her daughter who is also not interested in being tested or having her mother tested. She is accompanied today by her who also has very good questions is very supportive of his and I believe aftertoday's discussions they left with a very good understanding of the situation. Past Medical History: Diagnosis Date ??? Breast cancer ??? Depression ??? Headache(784.0) migraines ??? Hypothyroidism ??? Migraines ??? Sleep disturbance Past Surgical History: Procedure Laterality Date ??? BREAST LUMPECTOMY Right 2009 DCIS s/p PM and RT ??? PRO EXCISE BREAST LES W XRAY MARKER Left 03/30/2017 EXCISION LESION, BREAST W/ PREOP.MARKER (NEEDLE LOC.) (WRVU 6.69) performed by Marla Brice MD at [facility] Allergies Allergen Reactions ??? Nitrofurantoin Monohyd/M-Cryst Rash,( Macrobid) Current Outpatient Prescriptions on File Prior to Visit Medication Sig Dispense Refill ??? buPROPion (WELLBUTRIN SR OR ZYBAN) 150 mg Tablet Sustained Release 12 hr Take by mouth. ??? fish oil-omega-3 fatty acids 1,000 mg Capsule Take 2 g by mouth daily. ??? ibuprofen (ADVIL;MOTRIN) 200 mg Tablet Take 200 mg by mouth every 6 hours as needed for Pain. ??? magnesium 250 mg Tablet Take by mouth. ??? escitalopram (LEXAPRO) 10 mg Tablet ??? levothyroxine (SYNTHROID) 75 mcg Tablet Take 75 mcg by mouth daily. ??? Cholecalciferol, Vitamin D3, 2,000 unit Capsule Take by mouth. ??? aspirin 81 mg EC tablet Take 81 mg by mouth daily. ??? amitriptyline (ELAVIL) 10 mg tablet 30mg, PO, QHS (Patient taking differently: 20 mg PO at HS) No current facility-administered medications on file prior to visit. Family History Problem Relation Age of Onset ??? Breast Cancer Mother age 53 ??? Breast Cancer Maternal Aunt Social History Social History ??? Marital status: Spouse name: N/A ??? Number of children: N/A ??? Years of education: N/A Occupational History ??? Not on file. Social History Main Topics ??? Smoking status: Former Smoker Quit date: 10/19/2011 ??? Smokeless tobacco: Never Used ??? Alcohol use Not on file Comment: very rare ??? Drug use: No ??? Sexual activity: Not on file Other Topics Concern ??? Not on file Social History Narrative Review of Systems Constitutional: Negative for fever, chills, activity change, fatigue and unexpected weight change. HENT: Negative for sore throat, mouth sores and trouble swallowing. Eyes: Negative. Respiratory: Negative for cough, shortness of breath and wheezing. Cardiovascular: Negative for chest pain, palpitations and leg swelling. Gastrointestinal: Negative for nausea, vomiting, abdominal pain, diarrhea, constipation and abdominal distention. Genitourinary: Negative for dysuria and difficulty urinating. Musculoskeletal: Negative. Skin: Negative. Neurological: Negative. Hematological: Negative for adenopathy. Head: Normocephalic, without obvious abnormality, atraumatic Eyes: PERRL, conjunctiva/corneas clear, EOM's intact, fundi benign, both eyes Ears: Normal TM's and external ear canals, both ears Nose: Nares normal, septum midline, mucosa normal, no drainage or sinus tenderness Throat: Lips, mucosa, and tongue normal; teeth and gums normal Neck: Supple, symmetrical, trachea midline, no adenopathy, thyroid: not enlarged, symmetric, no tenderness/mass/nodules, no carotid bruit or JVD Back: Symmetric, no curvature, ROM normal, no CVA tenderness Lungs: Clear to auscultation bilaterally, respirations unlabored Chest Wall: No tenderness or deformity Breast exam not done today Heart: Regular rate and rhythm, S1, S2 normal, no murmur, rub or gallop Abdomen: Soft, non-tender, bowel sounds active all four quadrants, no masses, no organomegaly Extremities: Extremities normal, atraumatic, no cyanosis or edema Pulses: 2+ and symmetric Skin: Skin color, texture, turgor normal, no rashes or lesions Lymph nodes: Cervical, supraclavicular, and axillary nodes normal Neurologic: Normal INTERPRETATION OF OUTSIDE BREAST IMAGING ?? I have been asked to consult on this patient by Dr. dang because he/she believes a review of this study may change or alter the care of this patient. ?? STUDIES FROM: [facility] ?? DATES: 01/06/2017 ?? CLINICAL HISTORY: ABNORMAL IMAGIN-LEFT BREAST, CAT 3; ? BX; ? MORE IMAGING; What Modality is the exam? Mammography; Body Part (please add comments as necessary): LEFT BREAST; I believe a reinterpretation of this exam may alter care of Patient. Yes. ?? COMPARISONS: [id number] ?? FINDINGS: The breasts of scattered fiber glandular density. The patient has history of right-sided breast cancer ?? RIGHT breast: Stable postsurgical changes in the upper outer quadrant RIGHT breast with no mammographic concerns malignancy LEFT breast: In the 12:00 position 6 cm the nipple there is a 0.8 cm area of architectural distortion, possibly a small spiculated mass and punctate microcalcifications. This persists on the additional cone compression views and is suspicious for a small malignancy versus a radial scar. No Ultrasound performed. Multiple tiny well-defined masses scattered throughout the LEFT breast consistent with cysts. ?? IMPRESSION LEFT BREAST LESION #1 ?? 0.8 cm Mass deep central Quadrant 12 OClock 6 cm from the nipple ?? BI-RADS Category 4: Suspicious Finding - Biopsy Should Be Considered ?? RECOMMENDATION: ?? LEFT breast ultrasound to decide biopsy method. This is amenable to a rita guided biopsy if not visible by ultrasound ? Surgical Pathology DIAGNOSIS Left breast, excision: 1. Atypical ductal hyperplasia, two foci (see Discussion) 2. Focal atypical lobular hyperplasia 3. Flat epithelial atypia 4. Complex sclerosing lesion 5. Benign sclerosing papillary lesions 6. Columnar cell change and columnar cell hyperplasia 7. Sclerosing adenosis, usual ductal hyperplasia, and cysts 8. Biopsy site changes 9. Calcifications associated with atypical ductal hyperplasia, complex sclerosing ??lesion, and sclerosing adenosis Electronically signed by: ??Antonio BANGURA, Delon Lewis Verified: ??04/05/2017 ?Pathologist Performed at: ??-[facility] Dept. of Pathology, [place], [place] DISCUSSION Two separate foci of atypical ductal hyperplasia are seen - one adjacent to the ??previously biopsied complex sclerosing lesion (tissue slice XIV) and one in tissue ??slices VII/VIII. Assessment/plan: Cecilia has a completely resected abnormality that contained a couple areas of atypical ductal hyperplasia. Although the Shana model does not apply to her because of the previous history of DCIS if one was not to consider that she has about a 13% lifetime risk of developing a breast cancer. 5 years of tamoxifen or perhaps an aromatase inhibitor could reduce her risk by about 40%. I discussed this in detail with her and she is inclined not to take a perla or an aromatase inhibitor. She is going to talk to her about that. I went over the risks and side effects of both tamoxifen and the aromatase inhibitors and explained the difference between them so she has a good understanding of the low percentage of side effects and the difference between the side effects between the 2 types of medication. At the end of the discussion she told me she was leaning against taking treatment but would call if she changes her mind and I told her that was fine. If we do start the medication she can give a phone call and I would recommend tamoxifen in view of her history of osteoporosis. As far as genetic counseling goes I definitely would recommended in her situation but it is a valid reason not to do genetic testing if one does not want to consider the implications of a positive test. She is not interested in considering mastectomies or a oophorectomy if her BCRA testing was positive. documented in this encounter Plan of Treatment Scheduled Referrals Name Type Priority Associated Order Schedule Diagnoses Referral to Outpatient Referral Routine Breast cancer Ordered : Hematology and screening, high 04/13/2017 Oncology risk patient History of breast cancer documented as of this encounter Visit Diagnoses Diagnosis Atypical ductal hyperplasia of left sarah st documented in this encounter Care Teams Soft Metals Hand Engraver Relationship Specialty Start Date End Date Christine Fuentes PA PCP - General Family Medicine 01/24/17 10/08/19 [address] [place] [address] documented as of this encounter
--- OUTSIDE RECORDS SUMMARY | 2021-12-24 14:49 | XMS_ITS | Encounter Summary ---
:1955 Author Organization [facility] [place] [address] Care Team Providers Name Role Phone Christine Fuentes Primary Care Provider Encounter Details Date Type Department Care Team Description 01/30/2018 Notes Only Radiology at [facility] Evans Almanzar MD [place] [address] DIAGNOSTIC RADIOLOGY [phone] [place] [id number] (Wo rk) Social History Tobacco Use Types [...] encounter Progress Notes Evans Almanzar MD - 01/30/2018 12:56 PM EST Pre-procedure note for needle breast biopsies performed in radiology. Procedure date: Today Procedure type: right breast stereotactic biopsy Allergies: Nitrofurantoin monohyd/m-cryst Medications: Current Outpatient Medications: ??? hydrocortisone 2.5 % Cream, Mix with ketoconazole and apply to affected areas in the groin twicedaily as needed, then decrease to twice weekly., Disp: 30 g, Rfl: 3 ??? ketoconazole (NIZORAL) 2 % Cream, Mix with hydrocortisone and apply to affected areas in the groin twice daily as needed, then decrease to twice weekly, Disp: 30 g, Rfl: 3 ??? buPROPion (WELLBUTRIN SR OR ZYBAN) 150 [...] Take by mouth., Disp: , Rfl: ??? escitalopram (LEXAPRO) 10 mg Tablet, , Disp: , Rfl: ??? levothyroxine (SYNTHROID) 75 mcg Tablet, Take 75 mcg by mouth daily., Disp: , Rfl: ??? Cholecalciferol, Vitamin D3, 2,000 unit Capsule, Take by mouth., Disp: , Rfl: ??? aspirin 81 mg EC tablet, Take 81 mg by mouth daily., Disp: , Rfl: ??? amitriptyline (ELAVIL) 10 mg tablet, 30mg, PO, QHS (Patient taking differently: 20 mg PO at HS),Disp: , Rfl: Anticoagulation status: low dose aspirin stopped on: N/A Imaging reviewed and procedural plan approved by Dr. EVANS ALMANZAR MD documented in this encounter Plan of Treatment Not on filedocumented as of this encounter Visit Diagnoses Not on filedocumented in this encounter Care Teams Pumper Head Relationship Specialty Start Date End Date Christine Fuentes PA PCP - General Family Medicine 01/24/17 10/08/19 [address] [place] [address] documented as of this encounter
--- OUTSIDE RECORDS SUMMARY | 2021-12-24 14:49 | XMS_ITS | Encounter Summary ---
:1955 Author Organization [facility] [place] [address] Care Team Providers Name Role Phone Christine Fuentes Primary Care Provider Encounter Details Date Type Department Care Team Description 04/24/2018 Notes Only [facility] [place] [address] Social History Tobacco Use Types Packs/Day Years [...] this encounter Progress Notes January Davis - 04/24/2018 3:30 PM EST Cecilia Marx comes in for f/up today. She is here to pick out hand items ordered for her on 04/10/18 Patient Cecilia Marx 1.24.57 DX Right br ca C50.911 [facility] L8020 Products 929-08 Quantity 1 Ordering Marla Brice Self Pay steel die press set up operator date 04.24.18 Delivered today: 110 bra beige 110 bra black 929-08 X2 See 04/10/18 note for fitting details Paid with card on 04.10.18 $180.52 documented in this encounter Plan of Treatment Not on filedocumented as of this encounter Visit Diagnoses Not on filedocumented in this encounter Care Teams Shell Molder Relationship Specialty Start Date End Date Christine Fuentes PA PCP - General Family Medicine 01/24/17 10/08/19 [address] [place] [address] documented as of this encounter
--- OUTSIDE RECORDS SUMMARY | 2021-12-24 14:49 | XMS_ITS | Encounter Summary ---
:1955 Author Organization [facility] Address [facility] [place] [address] Care Team Providers Name Role Phone Christine Fuentes Primary Care Provider Reason for Visit Consultation (Routine) - Closed Specialty Diagnoses / Procedures Referred By Contact Refer red To Contact Dermatology Diagnoses intertrigo Christine Fuentes PA [facility] [address] [place] [address] [place] [address] Fax: Referral ID Status Reason Start Date Expiration Date Visits V isits Requested Authorized [id number] Closed Consult, 05/05/2017 05/05/2018 1 1 Test & Treat Connection Center Encounter Details Date Type Department Care Team Description 07/03/2017 Office Visit Dermatology at Krystyna Gerard MD [facility] [address] [facility] [place] [address] [facility] [phone] [place], [place] [address] (Wo rk) Social History Tobacco [...] documented as of this encounter Progress Notes EstradaKrystyna W - 07/03/2017 10:30 AM EDT Images from the original note were not included. DERMATOLOGY - NEW PATIENT NOTE Date of service: 07/03/2017 Cecilia Marx : 1955, 62 y.o. Chief Complaint: Rash HPI: Cecilia Marx is a 62 y.o. female referred by Christine Fuentes with the following concerns: Rash in her inguinal creases and pannus, that waxes and wanes. Today she is not flaring. She does sweat a lot in the area, and reports recent weight gain. Has tried Desitin and miconazole cream, which helps some. No personal history of diabetes. Relevant Skin History: - Skin cancer (including type): None - intertrigo Meds: Current Outpatient Prescriptions Medication Sig Dispense Refill ??? buPROPion (WELLBUTRIN [...] PO at HS) No current facility-administered medications for this visit. Allergies: Allergies Allergen Reactions ??? Nitrofurantoin Monohyd/M-Cryst Rash,( Macrobid) Review of Systems: - General: Feels well. - Skin: No other skin concerns. Examination: - Constitutional: Patient was alert, well-appearing and in no noticeable distress. - Skin: Skin examination of the abdomen, upper thighs, inguinal creases was performed. Diagnosis/Skin findings/Assessment/Plan: 1. Probable intertrigo - History of rash in the inguinal creases, but skin clear on examination today. - discussed likely diagnosis and treatment options. - recommended drying the skin with a physics department chair after bathing - Rx: ketoconazole cream - Rx: hydrocortisone 2.5% cream - Mix above medications and apply bid prn, then decrease to twice weekly for maintenance - encouraged weight loss RTC: prn Note initiated by MANOLO EDWARD LPN. I performed the above scribed service and agree with the accuracy of the documentation in this encounter. Reviewed and signed by Krystyna Estrada MD Resident in Dermatology [facility] Patient seen in conjunction with staff sheeter machine operator: Huang Keller MD Section of Dermatology [facility] Huang Keller MD - 07/03/2017 10:30 AM EDT I was the supervising physician working with Dermatology resident, Dr. Estrada, in the Dermatology Clinic during this patient visit. The level of resident supervision for this patient visit was indirect supervision with direct supervision immediately available (definition: [facility] Policy Statement on Graduate Medical Education, Supervision of Graduate Medical Trainees). I was immediately available to Dr. Estrada for questions and discussion regarding this visit. I have reviewed his encounter note details and level of service. HUANG KELLER MD [facility] Staff Physician documented in this encounter Plan of Treatment Not on filedocumented as of this encounter Visit Diagnoses Diagnosis Intertrigo Other specified erythematous condition documented in this encounter Care Teams Automobile Rental Agent Relationship Specialty Start Date End Date Christine Fuentes PA PCP - General Family Medicine 01/24/17 10/08/19 [address] [facility] [place] [address] documented as of this encounter
--- OUTSIDE RECORDS SUMMARY | 2021-12-24 14:49 | XMS_ITS | Encounter Summary ---
:1955 Author Organization [place] [address] Care Team Providers Name Role Phone Christine Fuentes Primary Care Provider Reason for Visit Reason Onset Date Comments Follow-up 04/11/2017 Encounter Details Date Type Department Care Team Description 04/11/2017 Telephone General Surgery at [facility] Rhoda Brumfield, ACCOUNTING CLERKS SUPERVISOR Follow-up [facility] [place] [address] GENERAL SURGERY [phone] [place], [place] [address] (Wo rk) Social History Tobacco [...] this encounter Miscellaneous Notes Telephone Encounter - Rhoda Brumfield, MIRIAN - 04/11/2017 8:15 AM EST I called Cecilia with herpathology report (ADH). She doing well. I answered her questions and will return for a follow up appointment on 04/13 with me. We agreed that we will talk more on about possible appointments with medical oncology to discuss chemo prevention and genetics to discuss genetic testing. She agrees. documented in this encounter Plan of Treatment Not on filedocumented as of this encounter Visit Diagnoses Not on filedocumented in this encounter Care Teams Transport Nurse Relationship Specialty Start Date End Date Christine Fuentes PA PCP - General Family Medicine 01/24/17 10/08/19 [address] [place] [address] documented as of this encounter
--- OUTSIDE RECORDS SUMMARY | 2021-12-24 14:49 | XMS_ITS | Encounter Summary ---
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, unspecified laterality Marla Brice V, [facility] [place] [place] [phone] Fax: Referral ID Status Reason Start Date Expiration Date Visits V isits Requested Authorized [id number] Closed Consult, 02/02/2018 02/02/2019 1 1 Test & Treat Encounter Details Date Type Department Care Team Description 02/02/2018 Telephone Hematology and [place]cology [place] [phone] Social History Tobacco Use Types Packs/Day [...] this encounter Miscellaneous Notes Telephone Encounter - SteveKiersten RN - 02/02/2018 11:12 AM EST Comprehensive Breast Program (CBP) Note ?? Reason for call: Contacted patient after Dr. Duvall informed her that her breast biopsy results indicated she has ductal carcinoma in situ, to introduce her to the CBP. Cecilia Marx is a 62 y.o. female with newly diagnosed ER/MN+ right breast DCIS (right breast stereotactic guided biopsy [place] [facility] PERSONAL HISTORY of BREAST CANCER Cecilia Marx has a history of right breast DCIS treated with partial mastectomy ([address] Forrester) and radiotherapy (2010 at [facility]). Cecilia has a history of left breast wide local excision 03/30/[address] Morales (for ADH, ALH, benign papillary lesion, etc.). She met with Dr. Stack in [facility] after this to discuss chemoprevention whichshe declined. We discussed whether she would want reconstruction should Cecilia decide upon or should mastectomy be recommended. She will consider this and let us know if she would like to meet with a plastic surgeon. Cecilia sounds positive and has support. Her will accompany her to appointment with Dr. Brice.She will spend some time thinking and praying about the information she recently received, including this new diagnosis. She appears to be coping well but is anxious to meet with a breast surgeon to determine a treatment plan. We discussed meeting with a genetic counselor, given her personal and family history of breast cancer, and she is in agreement. Referral for urgent apt.with P counselor sent. She prefers to be seen in [facility] over [place], but will take the earliest appt. She is interested in having a trained volunteer from [employer] ([employer] patient support corps accompany her to provider apt. Requested someone from [employer] meet with her at her consultation. Plan: Appointments for breast MRI and surgical consult with a breast surgeon have been scheduled. She was introduced to the CBP and told she would receive information about her diagnosis and treatment for her review (the Breast Cancer Treatment Handbook; link and access code to the EMMIDuctal Carcinoma in Situ (DCIS): Surgical Treatment Options program provided). Plan to meet with Cecilia on the day of her consult apt. Addressed her questions and encouraged her to contact me with any additional questions or concerns. She has our contact information. FAMILY HISTORY Breast Cancer: Mother at age 53 MGR Aunt - postmenopausally Laterality:Right Is this a recurrence:Yes Family history of breast cancer:Yes Family history of ovarian cancer: No Personal history or breast cancer:Yes Method of detection: Mammogram Method of diagnosis: Stereotactic Biopsy documented in this encounter Plan of Treatment Scheduled Referrals Name Type Priority Associated Diagnoses Order S chedule Referral to Outpatient Referral Routine Hormone receptor Orde red: Familial Cancer positive malignant 2017 neoplasm of breast, unspecified laterality documented as of this encounter Visit Diagnoses Diagnosis Hormone receptor positive malignant neop lasm of breast, unspecified laterality documented in this encounter Care Teams Delphi Programmer Relationship Specialty Start Date End Date Christine Fuentes PA PCP - General Family Medicine 01/24/17 10/08/19 [address] [place] [address] documented as of this encounter
--- OUTSIDE RECORDS SUMMARY | 2021-12-24 14:49 | XMS_ITS | Encounter Summary ---
:1955 Author Organization [facility] [place] [address] Care Team Providers Name Role Phone Christine Fuentes Primary Care Provider Encounter Details Date Type Department Care Team Description 04/10/2018 Notes Only [facility] [place] [address] Social History Tobacco Use Types Packs/Day Years [...] this encounter Progress Notes January Davis - 04/10/2018 9:30 AM EST Cecilia Marx 1955 [id number] Prescription Received:Yes Insurance: Private Previous Fitting: First Fitting Diagnosis: right breast cancer Date of Diagnosis: 02.21.18 Date of Surgery: 03.15.18 Type of Surgery: Mastectomy Bilateral Lymph Nodes: Yes Additional Treatment: no additional tx Allergies Allergen Reactions ??? Adhesive Rash ??? Nitrofurantoin Monohyd/M-Cryst Rash,( Macrobid) Skin Condition: Fair Range of Motion: Fair Pain and Sensitivity Scale: 0 [facility] Manu- facturer Model Quantity In Stock Ordered Delivery Date Type L8030 ABC [id number] 2 Y 2.19.19 Iota L8020 ABC [id number] 2 N 2.19.19 3.5.19 Iota L8000 ABC [id number] 1 Y 2.19.19 BRA L8000 ABC [id number] 1 Y 2.19.19 BRA L8000 ABC 110-L-C/D-MINT 1 Y 2.19.19 BRA Referring: Marla Brice MD Assessment and Plan: Cecilia Marx comes in today for her first mastectomy fitting following her mastectomy. Our goal is to achieve balance, symmetry, posture and overall appearance. Today we fit her with the products above. Measurement: 42 inches. Cecilia is happy with today's fitting and will call me with questions and conerns F/up: 04/24/18 documented in this encounter Plan of Treatment Not on filedocumented as of this encounter Visit Diagnoses Not on filedocumented in this encounter Care Teams Sexual Assault Nurse Relationship Specialty Start Date End Date Christine Fuentes PA PCP - General Family Medicine 01/24/17 10/08/19 [address] [place] [address] documented as of this encounter
--- OUTSIDE RECORDS SUMMARY | 2021-12-24 14:49 | XMS_ITS | Encounter Summary ---
:1955 Author Organization [place] [address] Care Team Providers Name Role Phone Christine Fuentes Primary Care Provider Encounter Details Date Type Department Care Team Description 01/30/2018 Hospital Encounter Mammography at [facility] [place], Abnormal mammogram [facility] Babs Reeves MD [facility] [phone] DIAGNOSTIC [phone] [place] [address] Social History Tobacco Use Types Packs/Day Years [...] Procedure Name Priority Date/Time Associated Comments Diagnosis MAMMO STEREOTACTIC Routine 01/30/2018 1:50 PM Abnormal mammogr am Results for this BIOPSY RIGHT EST procedure are i n the results section. SPECIMEN TO PATHOLOGY Routine 01/30/2018 1:33 PM Results for this EST procedure are i n the results section. SURGICAL PATHOLOGY Routine 01/30/2018 1:25 PM Res ults for this REPORT EST procedure are i n the results section. documented in this encounter Results Mammo Stereotactic Biopsy Right (01/30/2018 1:50 PM EST) Anatomical Region Laterality Modality Breast N/A Mammography Specimen (Source) Anatomical Location Collection Method / Collectio n Time Received Time / Laterality Volume Impressions 02/01/2018 1:30 PM EST Concordant malignant result. I suspect that the patient has more extensive DCIS since only sparse calcifi cations were harvested and the microcalcifications are associated with both DCIS and ADH. RECOMMENDATION: Definitive surgical management. I discus sed these results and recommendations with the patient, established already wi Dr. Brice, on 02/01/2018 at 1330 hours. REVIEW PATH CONFERENCE?: No Narrative 02/01/2018 1:30 PM EST STEREOTACTIC GUIDED VACUUM ASSISTED BIOPSY OF THE RIGHT BREAST CLINICAL HISTORY: abnormal mammogram rig ht breast microcalcifications deep central aspect 8.5 cm from the nipple sp anning 1 cm Procedural details: Informed consent was obtained and a davin e out procedure was performed per protocol. The patient gave permission to proceed. Using sterile technique and local anesthetic (less than 20cc's of 1% lidocaine) a biopsy was performed using tomographic guidance. Multiple core biop sy specimens were obtained using a 9g vacuum assist device. 21 core biopsy specimens were obtained u sing a Suros Eviva 9g device. Biopsy specimens were radiographed. ??Th e abnormality was present on the specimen digital radiograph. A Tap2printrk Eviva cylinder marker clip was p laced. Cranio-caudal and lateral digital mammography was performed to determine b iopsy marker placement. ??The marker was shown to be at the biopsy site. COMPLICATIONS: None. PROCEDURAL ATTESTATION: Resident: None I performed the procedure without a resi dent. IMAGING DIFFERENTIAL DIAGNOSIS: Ductal carcinoma in situ, fibrocystic ch deangelo PATHOLOGIC DIAGNOSIS: Focal ductal carcinoma in situ in a back ground of diffuse atypical duct hyperplasia. Babs Duvall MD IMG MAMMO ORDERABLES Specimen to Pathology (01/30/2018 1:33 PM EST) Specimen Anatomical Collection Method Collection Time Receive d Time (Source) Location / / Volume Laterality AP Specimen 01/30/2018 1:33 PM 8 1:33 EST PM EST Narrative [facility] - 01/30/2018 1:33 PM EST Specimen requisition ordered. ??Separate Pathology report to follow Babs Duvall MD PATHOLOGY/CYTOLOGY ORDERABLE S Performing Organization Address City/State/[place] [address] Surgical Pathology Report (01/30/2018 1:25 PM EST) Component Value Ref Test Analysis Performed At [facility] Range Method Time Signature Surgical [id number] ? Location: 3L [facility] Report The signing pathologist has (i) examined the relevant preparation(s) for the [facility]IAL specimen(s) and (ii) rendered or confirmed the diagnosis(es) . HOSPITAL LABOR[facility]ORY . ?Surgic al Pathology DIAGNOSIS Needle biopsies: ?Right breast. Diagnosis: Ductal carcinoma in-situ, focal, in a background of diffus e atypical ductal hyperplasia, flat epithelial atypia, adenosis and stromal s clerosis. (see Discussion.) Microcalcifications: ??Associated with DCIS and ADH. On A2 Immunohistochemistry Studies ER immunoreactivity: Positive ( ??>90% cancer cells with imm unostaining) Stain intensity: Strong PA immunoreactivity: Positive (~50% cancer cells with immuno staining) Stain intensity: Strong adn focal moderate ? *Diagnostic [place] for hormone receptors (ASCO/CAP GUIDELINES, 2010): ?Negative immunoreactivity: ?? <1% tumor cells with imm unostaining ?Positive immunoreactivity: ?? >=1% tumor cells with im munostaining Immunohistochemical assays w ere performed on paraffin-embedded tissue sections fixed in 10% neutral buffered for melvi for 6-72 hours using the polymer system technique with appropriate controls. The assays were performed according to the tip puncher ? 's instructions using Anti-ER (SP1) and Anti-PA (16) antibodie s. Electronically signed by: ??Kamryn Gregory DO Verified: ??02/01/2018 ?Pathologist Performed at: ??-[facility] Dept. of Pathology, [place], [place] DISCUSSION The DCIS shows a micropapillary pattern with intermediate nuclear grade and comdeonecrosis. ??A solid l ow nuclear grade pattern without necrosis is also focally present. ADDITIONAL STUDIES Immunohistochemistry Studies: Formalin-fixed, paraffin-emb edded tissue sections are studied using the polymer technique with appropriate positive and negative controls. ?These IHC studies provide the pathologist wit h adjunctive diagnostic information. Antibody specificity has been verified by testin g antibodies on a series of in-house tissues with known immunohistochemical perform ance characteristics. The clinical interpretation of any antibody positive stain ing or its absence is evaluated within the context of clinical presentation, morp hology, histopathological criteria and other diagnostic tests. Block ? Antibody ?Result (Positive /Negative) A1 ? Calponin ? Positive CLINICAL INFORMATION Specimen Submitted: A - Right breast stereo bx with and without calcs . CLINICAL INFORMATION Clinical History and Diagnosis: Right breast calcifications; DCIS, FCC SPECIMEN PROCESSING A - Received in two containers: 1 - Labeled/Fixative: Stereo biopsy with calcs, formalin Quantity/Size: Multiple, 0.2-2.2 cm. Tissue Description: Yellow-james fibrofatty needle core biopsi es. Submitted in: A1-A4 2 - Labeled/Fixative: Right breast stereo biopsy no calcs, f ormalin. Quantity/Size: Multiple, 0.2-2.5 cm. Tissue Description: Yellow-james fibrofatty needle core biopsi es. Submitted in: A5-A 10 Sections/Processing: Entirely submitted in 10 cassettes labeled A1-A10. Ischemic Time: 7 minutes ??ejr Specimen (Source) Anatomical Collection Method Collection Time Re ceived Time Location / / Volume Laterality 01/30/2018 1:25 PM EST Babs Duvall MD PATHOLOGY/CYTOLOGY ORDERABLE S Performing Organization Address City/State/[place] [address] documented in this encounter Visit Diagnoses Diagnosis Abnormal mammogram Abnormal mammogram, unspecified documented in this encounter Administered Medications Inactive Administered Medications - up to 3 most recent administrations Medication Order MAR Action Action Date Dose Rate Site lidocaine (XYLOCAINE) 10 mg/mL (1 Given 01/30/2018 1:25 PM EST 2 0 mg %) injection 20 mg 20 mg, Intradermal, ONCE, 1 dose, On Mon01/30/18 at 1400, Routine documented in this encounter Care Teams Network Planner Relationship Specialty Start Date End Date Christine Fuentes PA PCP - General Family Medicine 01/24/17 10/08/19 [address] [place] [address] documented as of this encounter
--- OUTSIDE RECORDS SUMMARY | 2021-12-24 14:49 | XMS_ITS | Encounter Summary ---
:1955 Author Organization [facility] [address] Care Team Providers Name Role Phone Christine Fuentes Primary Care Provider Encounter Details Date Type Department Care Team Description 04/10/2018 Orders Only General Surgery at [facility] neoplasm of [facility] A, RN right female breast, [facility] unspecifi ed estrogen Drive receptor status, [place] [phone] breast [phone] Social History Tobacco Use Types Packs/Day Years [...] as of this encounter Visit Diagnoses Diagnosis Malignant neoplasm of right female breas t, unspecified estrogen receptor status, unspecified site of breast documented in this encounter Care Teams Metaphysicist Relationship Specialty Start Date End Date Christine Fuentes PA PCP - General Family Medicine 01/24/17 10/08/19 [address] [place] [address] documented as of this encounter
--- OUTSIDE RECORDS SUMMARY | 2021-12-24 14:49 | XMS_ITS | Encounter Summary ---
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, unspecified laterality Marla Brice V, [facility] Hem [facility]c 3k Oncology [facility] [place] [phone] Fax: Referral ID Status Reason Start Date Expiration Date Visits V isits Requested Authorized [id number] Closed Consult, 02/02/2018 02/02/2019 1 1 Test & Treat Encounter Details Date Type Department Care Team Description 02/21/2018 Office Visit Hematology and Domenica Lama, Ductal carcinoma in situ (DCIS) of breast, unspecified laterality; Oncology at [facility] Family history of malignant neoplasm of breast [facility] [address] [place] HEMATOLOGY/ONCOLOGY [id number] DEPT. [phone] [place], [place] [address] (Wo rk) Social History Tobacco [...] documented as of this encounter Progress Notes Domenica Lama L[facility] - 02/21/2018 1:00 PM EST Ms. Marx was seen by Lazara Lama MS [facility] in consultation at the request of Dr. Marla Brice to advise regarding possible heritable predisposition to cancer. I spent 40 minutes of this face to face encounter with the patient gathering medical and family history and discussing the likelihood of a genetic predisposition to cancer and the option of genetic testing. Reason for referral/Chief complaint Personal history of ductal carcinoma in situ (DCIS) and family history of breast cancer. Medical history Cancer hx and treatment: Cecilia was diagnosed with DCIS of the right breast at age 54. At that time, she underwent a partial mastectomy and radiation therapy. More recently in March of 2017, at age 62, she was found to have ADH and ALH of the left breast which was treated with a wide excision. Hormonal therapy in the form of Tamoxifen was declined. In January of 2018, Cecilia was also found to have additional DCIS in the right breast. Cecilia is planning on having bilateral mastectomy. She would consider having her ovaries removed if she was found to carry a genetic predisposition to ovarian cancer. Age at 1st menses: ? Age at 1st child: ? Menopause status: Postmenopausal Hormone replacement therapy use: In the past, for a total of 2 years. Family History of Cancer Problem Relation Age of Onset ??? Breast Cancer Mother 50 ??? Breast Cancer Maternal Great Aunt (grandmother's sister) 45 Maternal ethnic background is [place] Citizen. Paternal ethnic background is unknown. Genetic risk assessment Panel genetic testing for an inherited predisposition to breast, gynecologic and gastrointestinal cancers was discussed. The risks, benefits and limitations of panel genetic testing were reviewed. Cecilia opted for testing with the STAT 9- gene Breast Panel, (reflex to standard 47-gene Common Hereditary Cancers Panel), a next generation sequencing panel including BRCA1 and BRCA2. Cecilia opted for testingand was consented. Her blood sample was drawn today and sent to [facility]. ?? The results of the STAT panel will be available in 5-12 calendar days. If that is normal, follow-up testing will take another 2-3 weeks. Cecilia will be contacted via telephone once her test results become available. If positive, we will schedule an in person follow-up appointment. At that time, we willdiscuss with Cecilia the implications that this test result may have for her, as well as her family members. We will also provide Cecilia with screening guidelines for cancer prevention and early detection, as well as answer any questions she may have. ?? documented in this encounter Plan of Treatment Not on filedocumented as of this encounter Results Research Venipuncture (02/21/2018 2:11 PM EST) [facility] gist Method Time Signature Research Complete [facility] Venipuncture [facility] Specimen Anatomical Collection Method Collection Time Receive d Time (Source) Location / / Volume Laterality Blood specimen 02/21/2018 2:11 PM 019 2:18 (specimen) EST PM EST Resulting Agency Comment Spec In Lab Avi Talbot MD CHEMISTRY ORDERABLES Performing Organization Address City/State/[place] [address] documented in this encounter Visit Diagnoses Diagnosis Ductal carcinoma in situ (DCIS) of breas t, unspecified laterality Family history of malignant neoplasm of breast documented in this encounter Care Teams Can Inspector Relationship Specialty Start Date End Date Christine Fuentes PA PCP - General Family Medicine 01/24/17 10/08/19 [address] [place] [address] documented as of this encounter
--- OUTSIDE RECORDS SUMMARY | 2021-12-24 14:49 | XMS_ITS | Encounter Summary ---
:1955 Author Organization [facility] [address] Care Team Providers Name Role Phone Christine Fuentes Primary Care Provider Reason for Visit Physical Therapy (Routine) - Closed Specialty Diagnoses / Procedures Referred By Contact Refer red To Contact Physical Therapy Diagnoses Breast cancer Marla Brice V [facility] Pt Rehab MD [facility] [place] [phone] Fax: Referral ID Status Reason Start Date Expiration Date Visits Requ ested Visits Authorized [id number] Closed 03/13/2018 03/13/2019 1 1 Encounter Details Date Type Department Care Team Description 03/30/2018 Office Visit Physical Therapy at Danielle Madrigal PT Decreased ROM of right shoulder; [facility] Decreased ROM of left should er; [facility] Pain of right upper arm; [facility] PHYSICAL MEDICINE & Bilateral arm weakness [place], [place] [facility] [phone] [place] [address] Social History Tobacco Use Types Packs/Day Years [...] documented as of this encounter Miscellaneous Notes Initial Evaluation - Debra Mardigal, PT - 03/30/2018 3:15 PM EST Images from the original note were not included. PHYSICAL THERAPY EVALUATION Date of Exam/First treatment: 03/30/18 Date of Onset : OR 03/15/18 Referring Provider: Marla Brice V Primary Insurance: Payor: [employer] [place] / Plan[place]ANGE / Product Type: *No Product type* / Diagnosis and pertinent co-morbidities: total treatment time: 45 minutes total timed code treatment minutes: 45 min eval CURRENT HISTORY: eCcilia Marx is a 63 y.o. female With h/o right breast cancer DCIS and partial Mastectomy and RT in 2009. now with intraductal papilloma of the left breast s/p right mastectomy with SLNB 0/4 LNP and prophylactic left mastectomy 03/15/18. Drains out today S: feels tight pulling sensation R anterior medial arm Adjuvant Treatment pending: none Social: , pt. 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 Function/exercise history: walking when weather is good or treadmill Walking distance/frequency: 1 hr 3x/week Other exercise:bicycling Hobbies: snow machining, motor cyling, bicyling, gardening Pain: R arm pulling, taught/ache FUNCTIONAL LIMITATIONS: On a difficulty scale with 0 being unable to perform an activity, and 10 being able to perform at a pre injury level she rates 6-7/10 CLINICAL FINDINGS: Posture: Sl rounded shoulders Active Range of motion: supine right left Sh flexion 140 150 Sh abduction 80 110 Sh ER 70 70 Sh IR 80 80 Strength: N/T Palpation/inspection: appropriate level of healing bilateral breast , possible axillary cord in R axilla and upper arm Flexibility: decreased at: pectoralis CLINICAL EVALUATION AND DIAGNOSIS: 63 yo female s/p bilateral mastectomy, 0/4 LNP. Pt with pain and decreased ROM shoulders limiting function. Pt would benefit from skilled PT to improve mobility and strength.Pt at low risk for lymphedema. Pt would like to FU with PT closer to home. Clinical presentation: Stable Evolving Unstable x Notes: Today Eval Pt education- education about lymphedema and precautions for those at risk Instruction in post op exercise progression. Pt instructed in 1-5 to start in 48 hrs (drain pulled today) Clinical decision making of low complexity using standardized patient assessment instrument and measurable assessment of functional outcome. The patient's rehabilitation potential is good. GOALS: Therapy Short Term Goals: 2 weeks 1. Increase ROM to allow reaching above shoulder level 2. Ind and consistent in home Ex program Therapy Usp Goals: 6 weeks 1. Full functional use of UE without discomfort 2. Begin gentle strengthening exercises INITIAL TREATMENT INCLUDED: Plan: FU closer to home Treatment: progression of HEP, soft tissue techniques to pecs bilateral, scar massage when appropriate Frequency and Duration: like 1x every 1-2 weeks x 4-5 treatments then wean as appropriate The plan has been discussed with the patient and she has agreed with it. DEBRA MADRIGAL, PT documented in this encounter Plan of Treatment Not on filedocumented as of this encounter Visit Diagnoses Diagnosis Decreased ROM of right shoulder Decreased ROM of left shoulder Pain of right upper arm Pain in limb Bilateral arm weakness Other musculoskeletal symptoms referable to limbs documented in this encounter Care Teams Roll Edge Stitcher Hand Relationship Specialty Start Date End Date Christine Fuentes PA PCP - General Family Medicine 01/24/17 10/08/19 [address] [place] [address] documented as of this encounter
--- OUTSIDE RECORDS SUMMARY | 2021-12-24 14:49 | XMS_ITS | Encounter Summary ---
:1955 Author Organization [facility] [address] Care Team Providers Name Role Phone Christine Fuentes Primary Care Provider Encounter Details Date Type Department Care Team Description 02/21/2018 Notes Only Care [place] [phone] Social History Tobacco Use Types Packs/Day Years [...] documented as of this encounter Progress Notes Olga Guan MSW - 02/21/2018 2:32 PM EST CCM met briefly with pt and introduced myself and explained my role in the breast program. Pt had anappt with the genetic counseling program and was not available to meet. I gave pt my contact information and encouraged her to call with any questions or concerns. [facility] will Continue to provide support and resources. documented in this encounter Plan of Treatment Not on filedocumented as of this encounter Visit Diagnoses Not on filedocumented in this encounter Care Teams Product Line Manager Relationship Specialty Start Date End Date Christine Fuentes PA PCP - General Family Medicine 01/24/17 10/08/19 [address] [place] [address] documented as of this encounter
--- OUTSIDE RECORDS SUMMARY | 2021-12-24 14:49 | XMS_ITS | Encounter Summary ---
:1955 Author Organization [facility] [address] Care Team Providers Name Role Phone Christine Fuentes Primary Care Provider Encounter Details Date Type Department Care Team Description 04/30/2018 Telephone General Surgery at [facility] [place] [phone] Social History Tobacco Use Types Packs/Day [...] this encounter Miscellaneous Notes Telephone Encounter - Chantelle Alcala RN - 04/30/2018 10:20 AM EDT Images from the original note were not included. I called Cecilia after she left a message on the General Surgery Nurses line. [place] in [place], [place] She notes she has an area at her sternum where she had a hematoma post operatively. She reports that area does not have any skin discoloration at this time. She reports having ridges of healing at the level of her incisions, and areas below the incisions with some pinkness that blanches with touch quickly returning with a pink flush. She denies any fever, chills, nausea or vomiting. She denies any increase in pain, warmth or any drainage. She has some cording in her right arm and has been working with physical therapy noting she has almost all of her range of motion back. She had her therapist have been using massage in her treatment. She reports when she wears her post mastectomy bra it rubs on the area where she has her ridges fromhealing. She notes wearing the bra causes the area to be reddened but it is also pink even days after going without the bra for days. Cecilia is to ester the areas where she has noted the pink flush under her incisions and to monitor theareas to see if it retracts or extends beyond the marking. She is to monitor for any signs and symptoms of infection. She is to send in pictures of what she describes in the phone conversation so it can be passed on toDr. Brice to allow for a plan of care. Cecilia has my d-h and will use the portal for this. We discussed the potential of seroma, and of resolution of hematomas. She notes the areas have remained consistent. She reports after her surgery In February she did have an episode where she had cold symptoms that coincided with a temperature of 100.3. She said she has a question of a sinus infection but is not sure because she recently has been told she needs to have a root canal at one of her upper tooth and this is the same area where she questions pressure from her sinus. I was able to speak to Dr. Brice in clinic and show her the photos Cecilia sent in. She advises to monitor the areas over the next 48 hours. If the redness increases or if she developsany signs or symptoms of infection ( increased swelling, increased pain, increased redness in intensity or extending beyond the lines drawn) she should seek care. She can go locally or she can come to [facility]. She notes some times wearing the bra can put pressure on the healing areas increasing irritation. I called Cecilia back and let her know all of this information, she agrees with the plan. I will sharethis note with Cecilia's primary care provider also. Delon Tyson MD routed this conversation to Marla Brice MD ??? [facility] General Surgery Nurse Delon Tyson MD ?? 04/29/18 11:55 AM Telephone Note - Received call from Cecilia Marx who underwent bilateral mastectomy with sentinel lymph node on 03/16/2018. Patient doing well but states she noticed new pink skin changes around andunder her incision. She states this is not warm and not painful. No fevers or drainage. As this is anew change I recommended that the patient be seen. I offered to evaluate the patient in the ED but the patient preferred to be seen in clinic tomorrow. I will route this note to appropriate secretariesand patient has been instructed to call at 0800 tomorrow. ?? She will also call back should she develop any fevers, chills, drainage, pain or with any questions or concerns. ?? Robert Tyson Vascular Surgery, PGY3 Pager #[phone] documented in this encounter Plan of Treatment Not on filedocumented as of this encounter Visit Diagnoses Not on filedocumented in this encounter Care Teams Technical Data Analyst Relationship Specialty Start Date End Date Christine Fuentes PA PCP - General Family Medicine 01/24/17 10/08/19 [address] [place] [address] documented as of this encounter
--- OUTSIDE RECORDS SUMMARY | 2021-12-24 14:49 | XMS_ITS | Encounter Summary ---
:1955 Author Organization [facility] [place] [address] Care Team Providers Name Role Phone Christine Fuentes Primary Care Provider Encounter Details Date Type Department Care Team Description 03/18/2018 Telephone General Surgery at [facility] Nick Hodges MD [place] [phone] GENERAL SURGERY [phone] [place], [place] [address] (Wo rk) Social History Tobacco [...] this encounter Miscellaneous Notes Telephone Encounter - Nick Hodges MD - 03/18/2018 1:40 PM EST I called the patient at 1:40 PM. Cecilia Marx is a 63 y.o. female who is s/p bilateral mastectomy last with Dr. Brice. She was discharged on Monday. She un-bandaged herself today. She has two round bandages which got wet in the shower. She wanted guidance on redressing it which I gave Cecilia Marx agrees with this plan. This note will be routed to the provider mentioned above. Nick Hodges MD documented in this encounter Plan of Treatment Not on filedocumented as of this encounter Visit Diagnoses Not on filedocumented in this encounter Care Teams Plant Hr Manager Relationship Specialty Start Date End Date Christine Fuentes PA PCP - General Family Medicine 01/24/17 10/08/19 [address] [place] [address] documented as of this encounter
--- OUTSIDE RECORDS SUMMARY | 2021-12-24 14:49 | XMS_ITS | Encounter Summary ---
:1955 Author Organization [facility] [place] [address] Care Team Providers Name Role Phone Christine Fuentes Primary Care Provider Encounter Details Date Type Department Care Team Description 02/21/2018 Office Visit Hematology and Babs, Aide Blue MD [facility] [place] [address] Ductal carcinoma in Oncology at [facility] Kiersten Wilson RN situ (DCIS) of [facility] [place] [phone] Social History Tobacco Use Types Packs/Day Years [...] Sign Reading Time Taken Comments Blood Pressure - - Pulse - - Temperature 37.3 ??C (99.2 ??F) 02/21/2018 10:53 AM EST Respiratory Rate - - Oxygen Saturation - - Inhaled Oxygen Concentration - - Weight - - Height - - Body Mass Index - - documented in this encounter Progress Notes Kiersten Wilson RN - 02/21/2018 10:45 AM EST Comprehensive Breast Program Note Cecilia Marx is a 62 y.o. female with right breast cancer. I met with the patient and her ,Tigre, in clinic. She is aware of plastic surgery consultation on 02/[address] Lenz and genetic counselor Today. SPECIFIC TEACHIN. Breast Cancer Treatment Handbook (Elba Rodriguez, 2012) was sent via mail. 2. Information from our Shared Decision-Marking Program on Ductal Carcinoma in Situ previously provided. 3. She understands she will meet with a medical oncologist after surgery. 4. Contact phone number for questions or concerns in the immediate post- operative period. 5. Comprehensive Breast Program Binder provided. 6. Post Breast Surgery Exercises handout created by physical therapists at [facility]. She understands shemay begin the first two to three exercises gently after mastectomy and will meet with a physical therapist post-operatively who will customize her ROM routine. 7. Breast Cancer Treatment Process care map (DCIS) provided and reviewed. 8. Things to Consider...What I Wish I Knew advice from breast cancer patients handout provided. 9. Contact information for the General Surgery Clinic Nurses was given and the Doctor brand protection manager systemexplained. 10. We discussed the recommended 150 minutes of aerobic exercise and two strength training sessions per week after a breast cancer diagnosis. She verbalized understanding of the plan of care and states all her questions were answered. Fifteenminutes was spent in education and providing support. Cecilia has our contact information. She will schedule surgery after her plastics consultation. Pre-op MRI: Yes Abnormalities detected No (other than index lesion) Referral to familial counseling: Yes Marla Butler MD - 02/21/2018 10:45 AM EST Surgical Oncology Follow Up Note - New diagnosis of DCIS Reason for Visit: Cecilia Marx is a 62 y.o. female referred back to me by Christine Fuentes for evaluation of right breast DCIS. 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).She was followed by surgeon for 5 years [...] today to discuss next steps in management. Cecilia does not self breast exams but [...] her mother (age 50s) and great aunt. Overall she feels quite well. Weight is stable and appetite is good. Denies fatigue. No recent migraines. No chest pain or SOB. No abd pain or blood in the stool. No new bony pain or tenderness.stoppeddrinking wine around [place] time due to depression. Reports a left breast infection about 2-3 weeks after biopsy. Had redness, pain and inverted nipple.She was started on augmentin for 21 days and symptoms resolved. Here today with her . Active Ambulatory Problems Diagnosis Date Noted ??? DCIS (ductal carcinoma in situ) of breast 06/14/2010 ??? Atypical ductal hyperplasia of left breast 04/13/2017 Resolved Ambulatory Problems Diagnosis Date Noted ??? No Resolved Ambulatory Problems Past Medical History: Diagnosis Date ??? Breast cancer ??? Depression ??? Headache(784.0) ??? Hypothyroidism ??? Migraines ??? Sleep disturbance Past Surgical History: Procedure Laterality Date ??? BREAST BIOPSY Right 01/06/2010 ADH 9:30 ??? BREAST BIOPSY Left 02/01/2017 Complex sclerosing lesion probably not completely removed ??? BREAST LUMPECTOMY Right 2009 DCIS s/p PM and RT ??? MAMMO STEREOTACTIC BIOPSY RIGHT N/A 01/30/2018 Mammo Stereotactic Biopsy Right 01/30/2018 Babs Duvall MD [facility] RAD MAMMOGRAPHY ??? PRO EXCISE BREAST LES W XRAY MARKER Left 03/30/2017 EXCISION LESION, BREAST W/ PREOP.MARKER (NEEDLE LOC.) (WRVU 6.69) performed by Marla Brice MD at [facility] OSC Current Outpatient Medications: ??? hydrocortisone 2.5 % [...] by mouth daily., Disp: , Rfl: ??? magnesium 250 mg [...] 20 mg PO at HS),Disp: , Rfl: ??? ibuprofen (ADVIL;MOTRIN) 200 mg Tablet, Take 200 mg by mouth every 6 hours as needed for Pain., Disp: , Rfl: DRUG ALLERGIES: Allergies as of 02/21/2018 - Review Complete 02/21/2018 Allergen Reaction Noted ??? Adhesive Rash 02/21/2018 ??? Nitrofurantoin monohyd/m-cryst SOCIAL HISTORY: Social History Socioeconomic History ??? Marital status: Spouse name: Not on file ??? Number of children: Not on file ??? Years of education: Not on file ??? Highest education level: Not on file Social Needs ??? Financial resource strain: Not on file ??? Food insecurity - worry: Not on file ??? Food insecurity - inability: Not on file ??? Transportation needs - medical: Not on file ??? Transportation needs - non-medical: Not on file Occupational History ??? Not on file Tobacco Use ??? Smoking status: Former Smoker Last attempt to quit: 10/19/2011 Years since quittin.3 ??? Smokeless tobacco: Never Used Substance and Sexual Activity ??? Alcohol use: Not on file Comment: very rare ??? Drug use: No ??? Sexual activity: Not on file Other Topics Concern ??? Not on file Social History Narrative ??? Not on file Family History Problem Relation Age of Onset ??? Breast Cancer Mother 50 ??? Breast Cancer Other 45 REVIEW OF SYSTEMS: A 12 point complete review of systems was obtained from the patient and confirmedby me. It was negative except for what was stated in the HPI She otherwise denies high blood pressure, heart disease, lung disease, diabetes, and infectious diseases. PHYSICAL EXAMINATION: Constitutional: This is a 62 y.o. female in no apparent distress Temp 37.3 ??C (99.2 ??F) (Temporal) There is no height or weight on file to calculate BMI. Eyes: anicteric, extra ocular movements are intact Neuro: No focal deficits. Hearing and speech intact Psych: the patient is alert and oriented. Normal affect. Breast Exam: radiation tattoos in place. right breast with well healed incision at upper outer breast. normal without mass, skin or nipple changes or axillary nodes, left breast with biopsy site at 12 oclock with small palpable nodule at 12 oclock, 3cm from the nipple, without dominant mass, skin or nipple changes or axillary nodes. No erythema. Heart: Regular rate and rhythm.No peripheral edema Lungs: Clear bilaterally with good air intake Nodes: No palpable lymph nodes in the groin or neck. Abdomen: Soft, non-tender, non-distended. Musculoskeletal: The patient has normal gait, range of motion, and muscle strength Skin: warm, dry, good turgor, non-icteric. DATA REVIEWED: 1) Imaging reviewed by me with the radiologist: 01/06/2017 FINDINGS: The breasts of scattered fiber glandular [...] nipple ?? BI-RADS Category 4: Suspicious Finding 2) Pathology Needle biopsies: ?Left breast Diagnosis: ?1. Complex sclerosing lesion(s) with usual ? ductal hyperplasia, sclerosing adenosis, cysts, ?columnar cell change, and apocrine metaplasia ? 2. Intraductal papilloma and clustered apocrine cysts Microcalcifications: ??Associated with complex sclerosing lesion Multiple foci of complex sclerosing lesion(s) are present in multiple tissue ??cores making it difficult to approximate an overall size. The largest microscopic ??measurement is 6.0 mm. The lesion is likely only partially sampled/excised. Impression: Cecilia Marx is a 62 y.o. 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 We had a long discussion about these biopsy results. Based on biopsy path andimaging, the lesion was partially sampled. Regarding this diagnosis, it is not cancer or precancerous, yet there could be a risk of sampling error with about a 10% risk of having ADH or DCIS in the lesion since it was a spiculated mass. We discussed options of surgical excision to confirm diagnosis versus surveillance imaging. We discussed surveillance options which include yearly mammogram (after new baseline) and possible MRI. MRI increases the risk of false positives and biopsies, but may detect cancer earlier. In addition, we discussed her family history of breast cancer in her mother and great aunt along with her personal history of DCIS at age 53. We reviewed the risk of having a genetic mutation. We reviewed what BRCA mutation is and what she would be at risk for and the possible recommendation of prophylactic breast and ovarian surgery. The patient and her had multiple questions which were answered to their satisfaction. The patient would like to take time to think about the above and let me know her decision. At this time she is leaning towards undergoing genetic counseling for possible testing. Plan: 1) Referral to familial genetics 2) referral to plastic surgery 3) right mastectomy with SLNB, possible prophylactic left mastectomy. Marla Brice MD Surgical Oncology documented in this encounter Plan of Treatment Not on filedocumented as of this encounter Visit Diagnoses Diagnosis Ductal carcinoma in situ (DCIS) of right breast documented in this encounter Care Teams Decorator Mannequin Relationship Specialty Start Date End Date Christine Fuentes PA PCP - General Family Medicine 01/24/17 10/08/19 [address] [place] [address] documented as of this encounter
--- OUTSIDE RECORDS SUMMARY | 2021-12-24 14:49 | XMS_ITS | Encounter Summary ---
:1955 Author Organization [facility] [place] [address] Care Team Providers Name Role Phone Christine Fuentes Primary Care Provider Reason for Referral Diagnostic Test (Routine) - Closed Specialty Diagnoses / Procedures Referred By Contact Refer red To Contact Radiology Diagnoses Ductal carcinoma in situ (DCIS) of right breast Marla Brice MD [facility] Rad Nuclear Med Procedures NM [place] Node Injection Breast wo Imaging [facility] [place] [address] [place] [address] Referral ID Status Reason Start Date Expiration Date Visits V isits Requested Authorized [id number] Closed Specialty 02/23/2018 02/23/2019 1 1 Service Requested Encounter Details Date Type Department Care Team Description 02/23/2018 Orders Only General Surgery at Marla Brice finn carcinoma in [facility] MD Mirza situ (DCIS) of right [facility] [address] [place], [place] GENERAL SURGERY [address] [place] [address] [phone] (Wo rk) Social History Tobacco Use Types [...] on filedocumented as of this encounter Results NM [place] Node Injection Breast wo Imaging (03/15/2018 1:11 PM EST) Anatomical Region Laterality Modality Nuclear Medicine Specimen (Source) Anatomical Location Collection Method / Collectio n Time Received Time / Laterality Volume Impressions 03/15/2018 1:50 PM EST [place] node injections performed without complication. Thank you for letting us participate in the care of this patient. For questions regarding this report, please contact e number below. ? Electronically signed by: Joshua Carney [facility] ([phone]), at 03/15/2018 1:50 PM Narrative 03/15/2018 1:50 PM EST EXAMINATION: NM SENTIN[place] NODE INJECTION BREAST WO IMAGING CLINICAL HISTORY: PLEASE INJECT THE RIGH T BREAST FOR LYMPHATIC MAPPING TECHNIQUE: Technetium-99m filtered sulfu r colloid was administered in divided doses totaling 1.4 mCi in the right [address]. COMPARISON: None FINDINGS: No imaging was performed. The patient left the department in good condition. Procedure Note Aleksandar Ibanez MD - 03/15/2018 EXAMINATION: NM SENTINEL NODE INJECTION BREAST WO IMAGING CLINICAL HISTORY: PLEASE INJECT THE RIGH T BREAST FOR LYMPHATIC MAPPING TECHNIQUE: Technetium-99m filtered sulfu r colloid was administered in divided doses totaling 1.4 mCi in the right sar[address]. COMPARISON: None FINDINGS: No imaging was performed. The patient left the department in good condition. IMPRESSION [place] node injections performed witho ut complication. Thank you for letting us participate in the care of this patient. For questions regarding this report, please contact e number below. Electronically signed by: Joshua Carney [facility] ([phone]), at 03/15/2018 1:50 PM Marla Blue MD IMG NM ORDERABLES documented in this encounter Visit Diagnoses Diagnosis Ductal carcinoma in situ (DCIS) of right breast Ductal carcinoma in situ (DCIS) of right breast documented in this encounter Care Teams Showcase Maker Relationship Specialty Start Date End Date Christine Fuentes PA PCP - General Family Medicine 01/24/17 10/08/19 [address] [place] [address] documented as of this encounter
--- OUTSIDE RECORDS SUMMARY | 2021-12-24 14:49 | XMS_ITS | Encounter Summary ---
:1955 Author Organization [facility] [place] [address] Care Team Providers Name Role Phone Christine Fuentes Primary Care Provider Reason for Referral Diagnostic Test (Routine) - Closed Specialty Diagnoses / Procedures Referred By Contact Refer red To Contact Radiology Diagnoses Malignant neoplasm of right breast in female, estrogen receptor positive, unspecified site of breast Marla Brice MD [facility] Rad Mri Procedures MRI Breast wwo Contrast Bilat [facility] GENERAL SURGERY [address] [address] Referral ID Status Reason Start Date Expiration Date Visits V isits Requested Authorized [id number] Closed Specialty 02/10/2018 04/10/2018 1 1 Service Requested Encounter Details Date Type Department Care Team Description 02/01/2018 Orders Only General Surgery at Marla Brice ign[place] [facility] [place] Mirza [place] breast in [facility] fem laura, estrogen Drive DR receptor positive, [place], [place] GENER[place] [address] [place] [address] breast [phone] (Wo rk) Social History Tobacco Use Types [...] on filedocumented as of this encounter Results MRI Breast wwo Contrast Bilat (02/16/2018 12:10 PM EST) Anatomical Region Laterality Modality Breast N/A Magnetic Resonance Specimen (Source) Anatomical Location Collection Method / Collectio n Time Received Time / Laterality Volume Addenda Addendum by Babs Duvall MD on 1 04/19/2017 1:50 PM EST --------ADDENDUM #1-------- Left breast BI-RADS Category 1: Negative --------ORIGINAL REPORT -------- BILATERAL BREAST MRI CLINICAL INDICATION: Breast staging stud y, newly diagnosed breast cancer deep central right breast spanning 1.3 cm, 8 cm posterior to the nipple. TECHNIQUE: Multiplanar sequences were obtained pre- and post- Dotarem enhancement, to include SPGR weighted dynamic run-off an d subtraction sequences obtained after the intravenous administration of 16 ccs of Dotarem. Computer algorithm analysis for lesion detection and kinetic contras t enhancement curve analysis was performed, using Ritani software. COMPARISON STUDIES: Compared and/or correlated with prior st udies including mammogram and core biopsy 01/22/2018, 01/30/2018. FINDINGS: Background Enhancement Pattern (first po st Dotarem image): Mild (25-50% breast) Amount of Fibroglandular Tissue: Predomi nantly fatty density LEFT Breast:There are scattered foci in the left breast but no abnormal enhancing masses or morphologic abnormal ities are identified. RIGHT Breast:There is a 2 cm post proced ure complex in the right breast posterior deep central aspect. Directly anterior is a 1.5 cm area of clumped nonmass enhancement, corresponding to th e area of microcalcifications mammographically. Deep central O'Clock 7.5 cm from the nip ple by MRI Non mass enhancement: Distribution: Line ar Enhancement: Initial upslope: Fast Delayed phase: Plateau Lymph Node Basins/Other: There is no celia dence of internal mammary or axillary adenopathy.. No significant abnormalitie s are seen in the chest wall or skin.. IMPRESSION: 1.5 cm area of clumped nonma ss enhancement in the biopsy bed. No evidence of multifocal or multicentric d isease. No contralateral disease. RECOMMENDATION:Definitive surgical manag ement. LEFT BREAST BIRADS RIGHT BREAST BIRADS 6. Known malignancy Impressions 02/16/2018 1:06 PM EST 1.5 cm area of clumped nonmass enhancement in the biopsy bed. No evidence of multifocal or multicentric d isease. No contralateral disease. RECOMMENDATION:Definitive surgical manag ement. LEFT BREAST BIRADS RIGHT BREAST BIRADS 6. Known malignancy Narrative 02/16/2018 1:06 PM EST BILATERAL BREAST MRI CLINICAL INDICATION: Breast staging stud y, newly diagnosed breast cancer deep central right breast spanning 1.3 cm, 8 cm posterior to the nipple. TECHNIQUE: Multiplanar sequences were obtained pre- and post- Dotarem enhancement, to include SPGR weighted dynamic run-off an d subtraction sequences obtained after the intravenous administration of 16 ccs of Dotarem. Computer algorithm analysis for lesion detection and kinetic contras t enhancement curve analysis was performed, using Ritani software. COMPARISON STUDIES: Compared and/or correlated with prior st udies including mammogram and core biopsy 01/22/2018, 01/30/2018. FINDINGS: Background Enhancement Pattern (first po st Dotarem image): Mild (25-50% breast) Amount of Fibroglandular Tissue: Predomi nantly fatty density LEFT Breast:There are scattered foci in the left breast but no abnormal enhancing masses or morphologic abnormal ities are identified. RIGHT Breast:There is a 2 [address] post proced ure complex in the right breast posterior deep central aspect. Directly anterior is a 1.5 cm area of clumped nonmass enhancement, corresponding to th e area of microcalcifications mammographically. Deep central O'Clock 7.5 cm from the nip ple by MRI Non mass enhancement: Distribution: Line ar Enhancement: Initial upslope: Fast Delayed phase: Plateau Lymph Node Basins/Other: There is no celia dence of internal mammary or axillary adenopathy.. No significant abnormalitie s are seen in the chest wall or skin.. Marla Blue MD [facility] MRI ORDERABLES documented in this encounter Visit Diagnoses Diagnosis Malignant neoplasm of right breast in fe male, estrogen receptor positive, unspecified site of breast Malignant neoplasm of right breast in fe male, estrogen receptor positive, unspecified site of breast documented in this encounter Care Teams Assistant Program Manager Relationship Specialty Start Date End Date Christine Fuentes PA PCP - General Family Medicine 01/24/17 10/08/19 [address] [place] [address] documented as of this encounter
--- OUTSIDE RECORDS SUMMARY | 2021-12-24 14:49 | XMS_ITS | Encounter Summary ---
:1955 Author Organization [facility] [place] [address] Care Team Providers Name Role Phone Christine Fuentes Primary Care Provider Encounter Details Date Type Department Care Team Description 05/08/2018 Telephone Hematology and [place] [facility] [place] [address] Social History Tobacco Use Types Packs/Day Years [...] this encounter Miscellaneous Notes Telephone Encounter - Trinh Lira - 05/08/2018 8:44 AM EDT Age at diagnosis: 62 Date of diagnosis: February 01, 2018 Place of diagnosis: Internal Date of initial appointment: 02/21/18 Surgeon: Babs Referral to Medical Oncology: yes Medical Oncologist:deshaun Referral to Radiation Oncology:Yes External Radiation Oncologist: Other Referral to Plastic Surgery: No documented in this encounter Plan of Treatment Not on filedocumented as of this encounter Visit Diagnoses Not on filedocumented in this encounter Care Teams City Planning Engineer Relationship Specialty Start Date End Date Christine Fuentes PA PCP - General Family Medicine 01/24/17 10/08/19 [address] [place] [address] documented as of this encounter
--- OUTSIDE RECORDS SUMMARY | 2021-12-24 14:49 | XMS_ITS | Encounter Summary ---
:1955 Author Organization [facility] Address [facility] [place] [address] Care Team Providers Name Role Phone Christine Fuentes Primary Care Provider Reason for Referral Physical Therapy (Routine) - Specialty Diagnoses / Procedures Referred By Contact Refer red To Contact Physical Therapy Diagnoses Decreased range of motion of shoulder, unspecified laterality Marla Brice MD [facility] [place] [address] Referral ID Status Reason Start Date Expiration Date Visits V isits Requested Authorized [id number] Evaluate and 04/09/2018 10/06/2018 1 1 Treat Encounter Details Date Type Department Care Team Description 04/09/2018 Orders Only General Surgery at Marla Brice reased range of [facility] MD Mirza motion of shoulder, [facility] [address] laterality (Primary [place], [place] GENERAL SURGERY Dx) [address] [place] [address] [phone] (Wo rk) Social History Tobacco Use Types [...] as of this encounter Plan of Treatment Scheduled Referrals Name Type Priority Associated Diagnoses Order S chedule Referral to Outpatient Referral Routine Decreased range of Or dered: Physical Therapy motion of shoulder, 03/23 unspecified laterality documented as of this encounter Visit Diagnoses Diagnosis Decreased range of motion of shoulder, u nspecified laterality - Primary documented in this encounter Care Teams Utilization Management Um Nurse Relationship Specialty Start Date End Date Christine Fuentes PA PCP - General Family Medicine 01/24/17 10/08/19 [address] [place] [address] documented as of this encounter
--- OUTSIDE RECORDS SUMMARY | 2021-12-24 14:49 | XMS_ITS | Encounter Summary ---
:1955 Author Organization [facility] [place] [address] Care Team Providers Name Role Phone Christine Fuentes Primary Care Provider Reason for Visit Reason Comments GI Problem Consultation (Routine) - Specialty Diagnoses / Procedures Referred By Contact Refer red To Contact Gastroenterology Diagnoses abdominal pain, fatty liver Christine Fuentes Tormey, Lauren K, MD Procedures consult [facility] Dr BREANN MARTIN [address] [place], [place] [id number] [place] [phone] Fax: Referral ID Status Reason Start Date Expiration Date Visits V isits Requested Authorized [id number] 07/26/2018 07/26/2019 1 1 Encounter Details Date Type Department Care Team Description 08/28/2018 Office Visit Gastroenterology at [facility] Bautista Mcgrath Fatty liver; [facility] Joshua Albarran MD Irritable [place], [place] [address] [facility] [phone] GASTROENTEROLOGY DEPT [place], [place] [address] (Wo rk) Social History Tobacco [...] Sign Reading Time Taken Comments Blood Pressure 143/97 08/28/2018 8:24 AM EDT Pulse 77 08/28/2018 8:24 AM EDT Temperature - - Respiratory Rate - - Oxygen Saturation - - Inhaled Oxygen Concentration - - Weight 77.7 kg (171 lb 6.4 oz) 08/28/2018 8:24 AM EDT Height 160.5 cm (5' 3.19) 08/28/2018 8:24 AM EDT Body Mass Index 30.18 08/28/2018 8:24 AM EDT documented in this encounter Progress Notes Bautista Mcgrath MD - 08/28/2018 8:30 AM EDT [facility] Division of Gastroenterology and Hepatology Outpatient Consultation Reason for Visit: fatty liver and diverticula seen on CT imaging Referred by Christine Fuentes History of Present Illness: Cecilia Marx is a 63 y.o. female with past medical history significantfor breast cancer (s/p bilateral mastectomy (2018) and radiation (2009), depression, hypothyroidism,and Irritable bowel syndrome (mixed) who is referred to GI for evaluation of fatty liver disease. Ms Marx presents today for evaluation of fatty liver as well as chronic abdominal pain and mixed bowel movements. Cecilia reports that she was first told she has irritable bowel syndrome about 10 yearsago. She believes that over the last 2 years she has a worsening of her underlying symptoms. She describes almost daily abdominal discomfort that is gnawing in nature, it varies in location as it can be in the upper abdomen or lower abdomen, it lasts anywhere from a few minutes to hours, it is always associated with bowel movements (pain presents before she moves her bowels and tends to improve after), it is also associated with food intake as she needs to move her bowels about 30 minutes after eating. She moves her bowels about 3 times a day (normal solid stool 60% of the time, loose stool 30%, constipation 10% of the time). She denies any blood or black stool. She has tried taking a probiotic prescribed by her doctor with some imptovement but her symptoms still persist. She had tried the FODMAP diet for a few months last year and lost about 10 lbs however when she was diagnosed with breast cancer earlier this year she stopped this diet. About a year ago she developed a sudden onset of abdominal pain that doubled her over following an emotional encounter. She was evaluated in the ED of her local hospital where her work-up was unrevealing but a CT of her abdomen (08/2017) was notable for fatty appearing liver. She has not had any work-up for this as far as she knows but had been evaluated once by a GI doctor in [place] where she was diagnosed with a rectocele. She denies any history of hematemesis, increased abdominal distension or encephalopathy. She denies any family history of liver disease. She currently drinks 1 alcoholic drink every 1-3 days on average but about 10 years ago consumed significantly more. She is not on any newmedication. She has never had an endoscopy and her last colonoscopy was in 2009. Review of Systems: 10 systems reviewed and notable for those in HPI. Past Medical History: Diagnosis Date ??? Breast [...] Stereotactic Biopsy Right 01/30/[address] [facility] RAD MAMMOGRAPHY ??? PRO BX/REMV, LYMPH NODE, DEEP AXILL Right 03/15/2018 BIOPSY OR EXCISION OF LYMPH NODE(S), OPEN, DEEP AXILLARY NODE(S) (WRVU 6.43) performed by Marla Brice MD at [facility] MAIN OR ??? PRO EXCISE BREAST LES W XRAY MARKER Left 03/30/2017 EXCISION LESION, BREAST W/ PREOP.MARKER (NEEDLE LOC.) (WRVU 6.69) performed by Marla Brice MD at [facility] OSC ??? PRO INTRAOP SENTINEL LYMPH ID W/DYE INJECTION Right 03/15/2018 INTRAOPERATIVE ID (MAPPING) SENTINEL LYMPH NODE,INCLUDES INJECTION (WRVU 2.5) performed by Marla Brice MD at [facility] MAIN OR ??? PRO MASTECTOMY, SIMPLE, COMPLETE Bilateral 03/15/2018 MASTECTOMY, SIMPLE, COMPLETE-CARITO (WRVU 15.85) performed by Marla Brice MD at [facility] MAIN OR -- section x 2 in the Social History: reports that she quit smoking about 6 years ago. She has never used smokeless tobacco. She reports that she drinks about 0.6 oz of alcohol per week. She reports that she does not use drugs. never smoker, No IVDU or marijuanna use Family History: family history includes Breast Cancer (age of onset: 45) in an other family member; Breast Cancer (age of onset: 50) in her mother. Current Outpatient Medications Medication Sig Dispense Refill ??? magnesium citrate 100 mg Tablet Take by mouth nightly. ??? cholecalciferol, Vitamin D3, 2,000 unit Capsule Take 1 capsule by mouth daily. ??? fish oil-omega-3 fatty acids 1,000 mg Capsule Take 1 capsule by mouth daily. ??? acetaminophen (TYLENOL) 500 mg Tablet Take 2 tablets by mouth every 8 hours as needed for Pain. Indications: Pain ??? amitriptyline (ELAVIL) 10 mg Tablet Take 2 tablets by mouth nightly. ??? buPROPion (WELLBUTRIN SR) 100 mg tablet sustained-release 12 hr Take 1 tablet by mouth daily. ??? escitalopram (LEXAPRO) 10 mg Tablet Take 1 tablet by mouth daily. ??? levothyroxine (SYNTHROID) 88 mcg Tablet Take 1 tablet by mouth daily. ??? multivitamin (THERAGRAN) Tablet Take 1 tablet by mouth daily. ??? oxyCODONE (ROXICODONE) 5 mg Tablet Take 1 tablet by mouth every 6 hours as needed for Pain (FOR PAIN UNCONTROLLED BY TYLENOL). 5 tablet 0 ??? hydrocortisone 2.5 % Cream Mix with ketoconazole and apply to affected areas in the groin twice daily as needed, then decrease to twice weekly. (Patient not taking: Reported on 03/30/2018) 30 g 3 ??? ketoconazole (NIZORAL) 2 % Cream Mix with hydrocortisone and apply to affected areas in the groin twice daily as needed, then decrease to twice weekly (Patient not taking: Reported on 03/30/2018) 30 g 3 ??? aspirin 81 mg EC tablet Take 81 mg by mouth daily. No current facility-administered medications for this visit. Allergies Allergen Reactions ??? Adhesive Rash ??? Nitrofurantoin Monohyd/M-Cryst Rash,( Macrobid) Physical Examination: There were no vitals taken for this visit. General: Pleasant, cooperative, no acute distress HEENT: NC/AT, anicteric sclera, MMM Chest: CTAB, no wheeze, rale or rhonchi CVS: Regular rate and rhythm, normal s1/s2, No murmurs, rubs or gallops ABD: soft, normoactive bowel sounds, non-tender, non-distended, no hepatosplenomegaly appreciated Rectal: patient deferred Extremities: Warm and well perfused. No edema Skin: No rash or lesion, no jaundice Neuro: Grossly intact, moves all extremities. No asterixis Labs: Reviewed in EDH/Scan Docs No results found for: WBC, HGB, HCT, MCV, PLATELET Chemistry No results found for: NA, K, CL, CO2, BUN, CREATININE No results found for: CALCIUM, ALKPHOS, AST, ALT, BILITOT TTG-IgA - negative 2017 Fecal calprotectin - negative 2017 Past Endoscopy: Last colonoscopy 2009 (no records available) Relevant Studies/Imaging: CT abdomen and pelvis 08/2017 notable for fatty appearing liver IMPRESSION: Cecilia Marx is a 63 y.o. female with past medical history significant for breast cancer (s/p bilateral mastectomy (2018) and radiation (2010), depression, hypothyroidism, and Irritable bowel syndrome (mixed) who is referred to GI for evaluation of fatty liver disease as well as chronic a bdominal pain and mixed bowel movements. These are two separate problems and we have discussed both in detail. She has evidence of fatty liver on CT imaging and likely has metabolic syndrome. We have thoroughly reviewed, drug, herbal supplement, alcohol histories. We will obtain labs today to assess liver function as well as insulin sensitivity and lipids. FIB-4 score 1.46 based on today's labs. She has been fasting for this exam and therefore we are able to perform a fibroscan today in the office. We discussed weight loss and diet are the initial approaches to fatty liver disease. She has had somesuccess with the FODMAP diet and is willing to explore this again but if not this diet she will ultimately try to limit carbohydrates. Her other symptoms fit the [place] IV criteria for irritable bowel syndrome based on the abdominal pain on average of 1 day a week for at least the last 3 months that is related to defecation and associated with change in stool form. We discussed trial of peppermint oil (such as IBgard) following meals for postprandial symptoms. She has had some improvement with the FODMAP diet although this diet is challenging, she can consider. She is already on amitriptyline for migraines and may benefit from increasing the dose to help control her abdominal pain. RECOMMENDATIONS: --Labs today: CMP, BMP, INR, PTT, lipids, HA1C --Fibroscan today in office --Restart FODMAP diet or low carbohydrate diet aiming for 7-10% body weight loss --Physical activity 20 to 60 minutes a day of moderate to vigorous activity 3-5 days a week (has been shown to improve IBS symptoms in a small study) --Screening colonoscopy (she is due for screening colonoscopy, she would like to set this up closer to her home) --Peppermint or IBgard (encapsulated peppermint) for postprandial symptoms. --Consider increase in amitriptyline from 10 mg to 25 mg This case was discussed with Dr Nella Mcgrath MD Fellow in Gastroenterology and Hepatology [place] [id number] P: [phone] F: [phone] CC NNAMDI Nicole [address] [place] [address] Nella Acevedo MD - 08/28/2018 8:30 AM EDT I have seen and evaluated the patient with Dr. Mcgrath and agree with his note. Fibroscan fortunately showed no fibrosis. For fatty liver we recommend working on weight loss, treating features of the metabolic syndrome if present (diabetes, hyperlipidemia, htn). Her gi symptoms are not related to fatty liver as noted in Dr. Mcgrath' note. Nella Acevedo MD Section of Gastroenterology & Hepatology [address] [place] [phone] documented in this encounter Procedure Notes Nella Acevedo MD - 08/28/2018 8:30 AM EDTAssociated Order(s): FIBROSCAN Procedure(s): FIBROSCAN Pre-Procedure Diagnose(s): Fatty liver [facility] Liver Fibrosis Assessment Report Indication: Fatty liver on imaging Performed by: Nella Acevedo MD Procedure: Vibration Controlled Transient Elastography (VCTE) or Fibroscan Pratt Protocol: Patient's identity, procedure and site were verified, confirmatory pause performed. Discussed procedure including risks and potential complications. Questions answered. Patient verbalizes understanding and wishes to proceed with Fibroscan assessment. Patient was placed in the supine position with right arm in maximum abduction to allow optimal exposure of right lateral abdomen. Patient was briefly assessed. Testing was performed in the mid-axillarylocation. 50Hz Shear Wave pulses were applied and the resulting Shear Wave and Propagation Speed wasdetected with a 3.5MHz ultrasonic signal, using the Fibroscan probe. Skin to liver capsule distance and liver parenchyma were accessed during the entire examination with the Fibroscan probe. Patient was instructed to breathe normally and abstain from sudden movements during the procedure. At least tenSheer Waves were produced; individual measurements of each Shear Wave were calculated. Patient tolerated the procedure well with no complications. Fibroscan Results: Median kPa: 3.6 Mean IQR: 17% (goal is <30 %) Number of valid measurements: 10 (at least 10 required) Number of invalid measurements: 1 Predicted fibrosis stage: F0 CAP (dB/m): 346 Estimated steatosis grade:3 /3 % hepatocytes affected: > 66 % Interpretation: Based on this Fibroscan result, history, clinical examination and review of laboratory and radiological data, this patient likely has stage 0 liver fibrosis with significant steatosis. documented in this encounter Plan of Treatment Not on filedocumented as of this encounter Procedures Procedure Name Priority Date/Time Associated Comments Diagnosis HEMOGRAM Routine 08/28/2018 10:30 Fatty liver Results for this AM EDT procedure are i n the results section. DIFFERENTIAL, Routine 08/28/2018 10:30 Fatty liver Results fo r this AUTOMATED AM EDT procedure are i n the results section. IRON AND TIBC Routine 08/28/2018 10:30 Results fo r this AM EDT procedure are i n the results section. PROTHROMBIN TIME Routine 08/28/2018 10:30 Fatty liver Results for this AM EDT procedure are i n the results section. CBC (WITH DIFF) Routine 08/28/2018 10:30 Fatty liver AM EDT HEMOGLOBIN A1C Routine 08/28/2018 10:30 Fatty liver Results f or this AM EDT procedure are i n the results section. HEPATIC FUNCTION Routine 08/28/2018 10:30 Fatty liver Results for this PANEL AM EDT procedure are i n the results section. LIPID PANEL (REFLEX Routine 08/28/2018 10:30 Fatty liver Resu lts for this DIRECT LDL) AM EDT procedure are i n the results section. BASIC METABOLIC PANEL Routine 08/28/2018 10:30 Fatty liver Re sults for this (NON-FASTING) AM EDT procedure are in the results section. EGI003 Routine 08/28/2018 8:30 AM Fatty liver Results f or this EDT procedure are i n the results section. documented in this encounter Results Iron and TIBC (08/28/2018 10:30 AM EDT) P athologist Signature Iron 118 30 - 150 [facility]/dL [facility] TIBC 342 250 - 450 [facility]/dL [facility] Iron Saturation 35 20 - 50 % [facility] Specimen Anatomical Collection Method Collection Time Receive d Time (Source) Location / / Volume Laterality Blood specimen Venous Draw / 08/28/2018 10:30 08/29/19 19 1:12 (specimen) Unknown AM EDT PM EDT Resulting Agency Comment Spec In Lab Bautista Mcgrath MD CHEMISTRY ORDERABLES Performing Organization Address City/State/[place] [address] Differential, Automated (08/28/2018 10:30 AM EDT) P athologist Signature Neutrophils % 44.8 % [facility] Neutr Abs (ANC) 2.50 1.70 - [facility] 6.10 [facility] x10(3)/[facility] LABORATORY Lymphocytes % 43.9 % [facility] Lymphocytes Abs 2.4 0.9 - 3.2 [facility] x10(3)/[facility] LABORATORY Monocytes % 7.7 % [facility] Monocyte Abs 0.4 0.3 - 0.9 [facility] x10(3)/[facility] LABORATORY Eosinophils % 2.3 % [facility] Eosinophils Abs 0.1 0.0 - 0.4 [facility] x10(3)/[facility] LABORATORY Basophils % 0.9 % [facility] Basophils Abs 0.0 0.0 - 0.1 [facility] x10(3)/[facility] LABORATORY Immature Gran % 0.40 % [facility] Comment: Immature granulocytes(IG's)percentage an d absolute count will include metamyelocytes, myelocytes, and promyelo cytes. Blood smears from CBCs yielding IG's will be scanned manually for concor dance. If this scan disagrees with the automated IG or if promyelocytes are not ed, a manual differential will be performed. Kendy Gran Abs 0.02 0.00 - 0.04 x10(3)/[facility] Specimen Anatomical Collection Method Collection Time Receive d Time (Source) Location / / Volume Laterality Blood specimen 08/28/2018 10:30 9 (specimen) AM EDT 10:39 AM EDT Resulting Agency Comment Spec In Lab Bautista Mcgrath MD HEMATOLOGY ORDERABLES Performing Organization Address City/State/[place] [address] (ABNORMAL) Hemogram (08/28/2018 10:30 AM EDT) Analysis Performed At Patho logist Time Signature WBC 5.6 4.0 - 9.5 [facility] x10(3)/[facility] LABORATORY RBC 4.68 4.00 - [place] [place] 5.21 [facility] x10(6)/[facility] LABORATORY Hemoglobin 13.7 11.7 - [facility] YG 15.5 gm/dL [facility] Hematocrit 42.8 35.7 - [facility] YG 45.8 % [facility] MCV 91.5 82.6 - [facility] 94.4 [facility] MCH 29.3 27.1 - [facility] YG 32.0 pg [facility] MCHC 32.0 31.7 - [facility] YG 35.0 gm/dL [facility] Platelets 229 145 - 357 [facility] x10(3)/[facility] LABORATORY RDWSD 50.4 (H) 37.0 - [facility] YG 46.0 [facility] LABOR[facility]ORY RDWCV 14.9 (H) 11.5 - [facility] 14.1 % [facility] MPV 10.5 7.6 - 12.9 [facility] LABORATORY nRBC % Auto 0.0 % [facility] nRBC Abs Auto 0.000 0.000 - [place] YG 0.000 [facility] x10(3)/[facility] LABORATORY Specimen Anatomical Collection Method Collection Time Receive d Time (Source) Location / / Volume Laterality Blood specimen 08/28/2018 10:30 9 (specimen) AM EDT 10:39 AM EDT Resulting Agency Comment Spec In Lab Bautista Mcgrath MD HEMATOLOGY ORDERABLES Performing Organization Address City/State/[place] [address] Prothrombin Time (08/28/2018 10:30 AM EDT) P athologist Signature PT 11.1 9.4 - 12.5 [facility]ORATORY INR 1.0 [facility] Comment: An INR <2.0 indicates adequate procoagul ant activity for hemostasis in most patients without underlying bleeding dis orders, though the INR may not adequately reflect hemostatic capacity i n patients with liver disease and synthetic impairment. The recommended ta rget INR range for therapeutic anticoagulation is 2.0 ? 3.0 for most applications, though lower and higher ranges may be appropriate depending on c linical circumstances. Specimen Anatomical Collection Method Collection Time Receive d Time (Source) Location / / Volume Laterality Blood specimen 08/28/2018 10:30 9 (specimen) AM EDT 10:39 AM EDT Resulting Agency Comment Spec In Lab Nella Acevedo MD HEMATOLOGY ORDERABLES Performing Organization Address City/State/[place] [address] Lipid Panel (08/28/2018 10:30 AM EDT) athologist Signature Chol, Total 220 mg/dL [facility] Comment: Lower Risk: <200 mg/dL Average Risk: 200-239 mg/dL Higher Risk: >zn=377 mg/dL Triglycerides 172 mg/dL [facility] Comment: Average Risk/Lower Risk: <150 mg/dL Borderline High Risk: 150-199 mg/dL High Risk: 200-499 mg/dL Very High Risk: >ss=062 mg/dL HDL 62 mg/dL [facility] Comment: Males: ?? Higher Risk: <40 mg/dL Females: ?? HIgher Risk: <50 mg/dL LDL Cholesterol 124 mg/dL [facility] Comment: Lowest Risk: <100 mg/dL Lower Risk: 100-129 mg/dL Borderline High Risk: 130-159 mg/dL High Risk: 160-189 mg/dL Very High Risk: >yg=005 mg/dL Chol/HDL Ratio 3.5 ratio [facility] Lipid Interpretation See Note [facility] Comment: Lipid management should be guided by a p atient? s ASCVD risk, goals and preferences. ACC/AHA Guidelines recommend high intens ity statin if clinical ASCVD or LDL greater than or equal to 190 mg/dL. http://tinyurl.com/YTZ-TYR-Frqluazkc Adults aged 40-75 with LDL 70-189 mg/dL should have their 10 year ASCVD risk estimated with the ACC/AHA ASCVD risk es timator http://tools.acc.org/STPBH-Ries-Hmsgedmm r/ Statin should be discussed if risk great er than or equal to 7.5% in non-diabetics. With diabetes, moderate i ntensity statin is recommended if risk less than 7.5%, high intensity if risk g reater than or equal to 7.5%. Annual lipid monitoring on statins is no t necessary. Evaluate secondary causes of Triglycerid es greater than 500 mg/dL or LDL greater than 190 mg/dL: See table 6 of A CC/AHA Guideline. Lifestyle modification is a critical com ponent of ASCVD risk reduction. Specimen Anatomical Collection Method Collection Time Receive d Time (Source) Location / / Volume Laterality Blood specimen 08/28/2018 10:30 9 (specimen) AM EDT 10:39 AM EDT Resulting Agency Comment Spec In Lab Nella Acevedo MD CHEMISTRY ORDERABLES Performing Organization Address City/State/[place] [address] Hemoglobin A1c (08/28/2018 10:30 AM EDT) athologist Signature Hemoglobin A1C 5.4 4.3 - 5.6 [facility] Comment: Reference Range: 4.3 - 5.6% 5.7 - 6.4% - Increased Risk of Developin g Diabetes Mellitus >= 6.5% - Consistent with diagnosis of D iabetes Mellitus In the absence of hyperglycemia (i.e. pl asma glucose > 200 mg/dL) or classic symptoms of hyperglycemia a repeat measu rement of HbA1c should be performed on a separate sample to confirm the diagnos is. Diagnosis and Classification of Diabetes Mellitus, Diabetes Care 2013; 36: Suppl. 1, S67-74 Est Avg Gluc 109 mg/dL [facility] Comment: eAG equivalents for HbA1c percentages: HbA1c(%) ?eAG(mg/dL) 6.0 ?126 6.5 ?140 7.0 ?154 7.5 ?169 8.0 ?183 8.5 ?197 9.0 ?212 9.5 ?226 10.0 ? 240 Limitations: The eAG calculation has not been validated on women, individuals below 18 years old and above 70 years old, and individuals with hemoglobinopathies. Additional resources are available on [facility] ADA website. Willie KAUFMAN, Trenton J, Dorothy R, et al. ??Tr anslating the A1C assay into estimated average glucose values. ??Diabetes Care 2008:31(8):3192-2487. Specimen Anatomical Collection Method Collection Time Receive d Time (Source) Location / / Volume Laterality Blood specimen 08/28/2018 10:30 9 (specimen) AM EDT 10:39 AM EDT Resulting Agency Comment Spec In Lab Nella Acevedo MD CHEMISTRY ORDERABLES Performing Organization Address City/State/[place] [address] (ABNORMAL) Basic Metabolic Panel (non-fasting) (08/28/2018 10:30 AM EDT) P athologist Signature Glucose Lvl 102 65 - 199 [facility] mg/dL [facility] Comment: Diabetes: >=200 mg/dL plus symp toms BUN 21 (H) 8 - 18 mg/dL [facility] Creatinine 0.93 0.70 - 1.20 mg/dL [facility] Sodium 142 135 - 145 mmol/L [facility] Potassium 4.5 3.5 - 5.0 mmol/L [facility] Comment: Please note: ??Patients with WBC >100,00 0 may have falsely elevated Potassium levels. ??For accurate Potassium quantif ication in these patients send serum separator tube (gold top) for subsequent determinations. ??Contact the Clinical Chemistry Laboratory if there are any qu estions. Chloride 107 98 - 107 mmol/L [facility] CO2 22 22 - 31 mmol/L [facility] Anion Gap 13 5 - 15 mmol/L [facility] Calcium 9.3 8.5 - 10.5 mg/dL [facility] Estimated GFR 66 >=60 mL/min/1.73 m?? [facility] Comment: The eGFR was calculated using the CKD-EP I equation. As with all creatinine based estimates of kidney function, eGFR values calculated with the CKD-EPI equation are not accurate in patients wi th acute kidney failure, extremes of body mass or the acutely ill. http://GLSS/[facility] eGFR 76 >=60 mL/min/1.73 m?? [facility] Comment: The eGFR was calculated using the CKD-EP I equation. As with all creatinine based estimates of kidney function, eGFR values calculated with the CKD-EPI equation are not accurate in patients wi th acute kidney failure, extremes of body mass or the acutely ill. http://GLSS/[facility]LL[facility]f Specimen Anatomical Collection Method Collection Time Receive d Time (Source) Location / / Volume Laterality Blood specimen 08/28/2018 10:30 9 (specimen) AM EDT 10:39 AM EDT Resulting Agency Comment Spec In Lab Nella Acevedo MD CHEMISTRY ORDERABLES Performing Organization Address City/State/[place] [address] (ABNORMAL) Hepatic Function Panel (08/28/2018 10:30 AM EDT) P athologist Signature Total Protein 7.7 6.1 - 8.0 [facility] Albumin 4.3 3.2 - 5.2 [facility] YG gm/dL [facility] AST 31 (H) 0 - 30 [facility] unit/L [facility] ALT 33 (H) 0 - 30 [facility] YG unit/L [facility] Alk Phos 74 40 - 104 [facility]L [facility] Total 0.4 0.2 - 1.3 [facility] Bilirubin mg/dL [facility] Bili, Direct 0.1 0.0 - 0.3 [facility] mg/dL [facility] Specimen Anatomical Collection Method Collection Time Receive d Time (Source) Location / / Volume Laterality Blood specimen 08/28/2018 10:30 9 (specimen) AM EDT 10:39 AM EDT Resulting Agency Comment Spec In Lab Nella Acevedo MD CHEMISTRY ORDERABLES Performing Organization Address City/State/[place] [address] [id number] (08/28/2018 8:30 AM EDT) Narrative Bautista Mcgrath MD - 08/28/2018 8: 30 AM EDT Nella Acevedo MD ? 08/28/2018 ??1:08 PM [facility] Liver Fibrosis Asses sment Report Indication: ??Fatty liver on imaging Performed by: ??Nella Acevedo MD Procedure: Vibration Controlled Transien t Elastography (VCTE) or Fibroscan Pratt Protocol: Patient's identity, procedure and site were verified, confirmatory pause performed. Discussed procedure including risks and potential complicati ons. Questions answered. Patient verbalizes understanding and wis hes to proceed with Fibroscan assessment. Patient was placed in the supine positio n with right arm in maximum abduction to allow optimal expos ure of right lateral abdomen. Patient was briefly assessed. T esting was performed in the mid-axillary location. 50Hz Shear Wa ve pulses were applied and the resulting Shear Wave and Propaga tion Speed was detected with a 3.5MHz ultrasonic signal, using t he Fibroscan probe. Skin to liver capsule distance and liver pare nchyma were accessed during the entire examination with the F ibroscan probe. Patient was instructed to breathe normally and a bstain from sudden movements during the procedure. At least ten Sheer Waves were produced; individual measurements of eac h Shear Wave were calculated. Patient tolerated the proced ure well with no complications. Fibroscan Results: Median kPa: 3.6 Mean IQR: 17% (goal is <30 %) Number of valid measurements: ??10 (at l east 10 required) Number of invalid measurements: 1 Predicted fibrosis stage: F0 CAP (dB/m): 346 Estimated steatosis grade:3 /3 % hepatocytes affected: > 66 % Interpretation: Based on this Fibroscan result, history, clinical examination and review of laboratory and radiological da ta, this patient likely has stage 0 liver fibrosis with signific ant steatosis. Nella Acevedo MD PROCEDURE/MINOR SURGICAL ORD ERABLES documented in this encounter Visit Diagnoses Diagnosis Fatty liver Other chronic nonalcoholic liver disease Irritable bowel syndrome, unspecified ty pe documented in this encounter Care Teams Drug Abuse Program Coordinator Relationship Specialty Start Date End Date Christine Fuentes PA PCP - General Family Medicine 01/24/17 10/08/19 [address] [place] [address] documented as of this encounter
--- OUTSIDE RECORDS SUMMARY | 2021-12-24 14:49 | XMS_ITS | Encounter Summary ---
:1955 Author Organization [place] [address] Care Team Providers Name Role Phone Christine [...] (MAPPING) SENTINEL LYMPH NODE,INCLUDES INJECTION (WRVU 2.5) Referral ID Status Reason Start Date Expiration Date Visits Requ ested Visits Authorized [id number] 1 1 Encounter Details Date Type Department Care Team Description 03/15/2018 - Hospital Encounter PACU at [facility], Malignant neoplasm 03/16/2018 [facility] Marla Blue MD of female breast, [facility] unspecified [facility] DR dalila Munoz GENERAL SURGERY status, unspecified [place], [place] [address] laterality, [id number] unspecified site of breast Social History Tobacco Use Types Packs/Day Years [...] Sign Reading Time Taken Comments Blood Pressure 104/58 03/16/2018 10:00 AM EST Pulse 95 03/15/2018 11:15 PM EST Temperature 37 ??C (98.6 ??F) 03/16/2018 6:00 AM EST Respiratory Rate 16 03/16/2018 10:00 AM EST Oxygen Saturation 95% 03/16/2018 10:00 AM EST Inhaled Oxygen Concentration - - Weight 75.8 kg (167 lb) 03/15/2018 2:32 PM EST Height 162.6 cm (5' 4) 03/15/2018 2:32 PM EST Body Mass Index 28.67 03/15/2018 2:32 PM EST documented in this encounter Discharge Summaries Aleah Vigil APRN - 03/16/2018 10:42 AM EST General Surgery [...] s/p partial mastectomy and RT in 2009 ([facility]).She was followed by surgeon for 5 years [...] new bony pain or tenderness.stoppeddrinking wine around [place] time due to depression. ?? Reports a left breast infection about 2-3 weeks after biopsy. Had redness, pain and inverted nipple.She was started on augmentin for 21 days and symptoms resolved. ?? Here today with her . Operations/Major Procedures: Operations: 03/15/2018 Surgeon(s) and Role: * Marla Zepeda MD - Primary * Sera Weller MD - Resident-Sailing Officer * Vu Angela MD - Resident-Surgeon Tonny [...] Discharge: Final Surgical Pathology pending. Studies: NM [place] Node Injection Breast wo Imaging (03/16): IMPRESSION [place] node injections performed without complication. Discharge Exam: [...] to: Home VNA: Yes Name of facility: [facility] Contact information: PHONE: [phone] Discharge Conditions/Prognosis: Stable Discharge Medications: The following [...] Avi Talbot MD Leb Hem Onc [facility] 03/30/2018 3:15 PM Magdalena Madrigal, PT PT Rehab [facility] Outpatient Services/Studies: Referral to Home Health - at DISCHARGE Order Comments: DOCUMENTATION FOR VNA SERVICES (INCLUDING THOSE PATIENTS WITH MEDICARE COVERAGE REQUIRING HOME VNA SERVICES AND/OR HOSPICE SERVICES) PATIENT'S LOCATION: Cecilia Marx [address] [place] [id number] (home) [phone] (cell) Thermal Technician's Name: Self In discussion with the attending physician, it is certified that this patient is under their care and that they, or a Nurse Practitioner,Clinical Nurse specialist or Physician Steel Rigger who is working directly with them, had [...] program if appropriate. HOME HEALTH CARE AGENCY: [facility]. PHONE: [phone] FAX: [phone] Start of care: 24-48 hrs after discharge Please note that any additional orders needs or changes will need to be obtained from this patient'sPCP: NNAMDI Nicole [address] / [place] [id number] All VNA agencies which cover the area of patient's residence have been reviewed, either verbally or in writing, and patient/family have chosen the home health care agency noted Question Response Notes Agency name and contact information [facility] Patient location post discharge Home What [...] 30cc per day for 2 consecutive days. [phone] You may shower with the drains in [...] Dr. Zepeda in 2-3 weeks Please call [phone] to confirm date and time of your appointment if you do not hear from us in the week. Call Doctor for: Worsening redness or drainage from your incision lasting longer than 5 days following surgery Any foul-smelling drainage from the incision Fevers greater than 101 degrees F Persistent nausea or vomiting (this may be related to opioid pain medications) Phone number for questions: [phone] before 5 PM weekdays [phone] after 5 PM and on weekends/holidays Future Appointments Date Time Provider Department Center 03/30/2018 1:30 PM Marla Zepeda MD Leb Surg [facility] 03/30/2018 2:00 PM Avi Talbot MD Leb Hem Onc [facility] 03/30/2018 3:15 PM Magdalena Madrigal, PT PT Rehab [facility] General Instructions None Acute Opioid Prescribing: [...] Some recent data might be hidden Cecilia Marx is being prescribed a prescription opioid for [...] CC: NNAMDI Nicole Signed: Aleah Vigil APRN [facility] Surgical Oncology Service Team Pager #[phone] 03/16/2018 11:44 AM documented in this encounter Discharge Instructions Patient InstructionsAleah Vigil APRN - 03/16/2018 9:03 AM EST Instructions following [...] 30cc per day for 2 consecutive days. [phone] You may shower with the drains in [...] Dr. Zepeda in 2-3 weeks Please call [phone] to confirm date and time of your appointment if you do not hear from us in the week. Call Doctor for: Worsening redness or drainage from your incision lasting longer than 5 days following surgery Any foul-smelling drainage from the incision Fevers greater than 101 degrees F Persistent nausea or vomiting (this may be related to opioid pain medications) Phone number for questions: [phone] before 5 PM weekdays [phone] after 5 PM and on weekends/holidays Future Appointments Date Time Provider Department Center 03/30/2018 1:30 PM Marla Zepeda MD Leb Surg [facility] 03/30/2018 2:00 PM Avi Talbot MD Leb Hem Onc [facility] 03/30/2018 3:15 PM Magdalena Madrigal, PT PT Rehab [facility] AttachmentsThe following attachments cannot be sent through Care Everywhere. 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 A letter describing our affiliations was reviewed with them and they were educated about their right to choose where referrals are placed. Patient requests referral to [facility] [place]. PHONE: [phone] FAX: [phone]. Expected date of discharge: 03/16/18. Referral routed to the Account Resolution Expert for matching with agency/vendor and to provide [...] Ruano MD 03/16/18 General Surgery Resident, PGY-1 Mackenzie Strickland RN - 03/15/2018 10:14 PM EST 2155 - pt to pacu bay 14 via [...] and dry,a febrile. bilat breast dressing with klayn wrap intact - cdi. JEFFRY x 2 [...] level of care admit - bed requested. 0 - at bedside and updated - supportive. He will be staying in the [facility] hot overnight and will keep all pt belongings until the am. Pt having pain in breast area - po meds given. Slight nausea - iv zofran preventative. 2245 - left for hotel 2315 - pt [...] Andrey Cordova at the research lab at 1926 and was instructed to leave them at the chargedesk in the main OR. #1 right breast tissue #2 left breast tissue. The specimen for research were taken to the desk and verified by Noemi. Pathology: #1 right breast taken out of the room to the front end software developer by Rachana Leary RN at 2009, verified with Noemi and lab informed at 2012. #2 right axillary node #3 left breast tissue out at 2057 and sent to the front end software developer at 2113 on 03/15/18, verified by Luis Womack and noemi that there were two specimens in the bag , right sentinal node andleft breast tissue. Contact the patient to update him on the procedure at 2025 on 03/15/18. documented in this encounter Miscellaneous Notes Op Note - Marla Zepeda MD - 03/16/2018 11:45 AM EST [facility] Operative Note Patient Name: Cecilia Marx : [id number] MR#: [id number] Case Date: 03/15/2018 Surgeon: Surgeon(s) and Role: * Marla Zepeda MD - Primary * Sera Weller MD - Resident-Sailing Officer * Vu Angela MD - Resident-Surgeon Tonny [...] Operative Note Patient Name: Cecilia Marx : [id number] MR#: [id number] Case Date: 03/15/2018 Surgeon: Surgeon(s) and Role: * Marla Zepeda MD - Primary * Sera Weller MD - Resident-Sailing Officer * Vu Angela MD - Resident-Surgeon Tonny [...] PM 9 9:38 EST PM EST Narrative [facility] - 03/15/2018 9:38 PM EST Specimen requisition ordered. ??Separate Pathology report to follow Resulting Agency Comment Spec In Lab Marla Blue MD PATHOLOGY/CYTOLOGY ORDERABLE S Performing Organization Address City/[facility]/[place] [address] Specimen to Pathology (03/15/2018 9:00 PM EST) Specimen Anatomical Collection Method Collection Time Receive d Time (Source) Location / / Volume Laterality AP Specimen 03/15/2018 9:00 PM 9 9:37 EST PM EST Narrative [facility] - 03/15/2018 9:38 PM EST Specimen requisition ordered. ??Separate Pathology report to follow Resulting Agency Comment Spec In Lab Marla Blue MD PATHOLOGY/CYTOLOGY ORDERABLE S Performing Organization Address City/[facility] [place] [address] Specimen to Pathology (03/15/2018 8:06 PM EST) Specimen Anatomical Collection Method Collection Time Receive d Time (Source) Location / / Volume Laterality AP Specimen 03/15/2018 8:06 PM 9 8:06 EST PM EST Narrative [facility] - 03/15/2018 8:06 PM EST Specimen requisition ordered. ??Separate Pathology report to follow Marla Blue MD PATHOLOGY/CYTOLOGY ORDERABLE S Performing Organization Address City/State/ZIP Code Phon e Number [place] [address] Surgical Pathology Report (03/15/2018 8:04 PM EST) Component Value Ref Test Analysis Performed At [facility] gist Range Method Time Signature Surgical [id number] ? Location: PACU; [facility]; [facility] Pathology ELEROY Report The signing pathologist has (i) examined [...] Uninvolved by tumor ce lls ?Number of [place] Nodes Examined: ?4 Pathologic Stage Classification (pTNM, AJCC 8th Edition) ? Primary Tumor (pT): ?? pTis (DCIS) ? Regional Lymph Nodes (pN) ?Modifier: ??(sn): [place] node(s) evaluat ed. ?Category (pN): ?? pN0 Tumor Block(s): ?? A11 CAP eCC February 2017 Agile Release ER and RI studies (performed on prior biopsy, [id number] ): ER: Positive (>90%, strong) RI: Positive (50%, moderate to strong) Electronically signed by: ??Antonio BANGURA, Delon Lewis Verified: ??03/22/2018 ?Pathologist Performed at: ??-[facility] Dept. of Pathology, [place], [place] . DISCUSSION An admixture of atypical [...] Superficial is blue, deep is black. Sections/Processing: Cashier Receptionist sections in 22 cassettes as follows: ? [...] to 2.5 cm. . SPECIMEN PROCESSING Sections/Processing: ??Cashier Receptionist sections in 6 cassette s as follows: [...] are noted. Ink Designation: Deep/black; superficial/blue. Sections/Processing: Cashier Receptionist sections in 12 cassettes as follows: ? C1: ? Nipple ? C2: ? Base of nipple ? C3-C4: ?Cashier Receptionist upper outer quadrant ? C5-C6: ?Cashier Receptionist lower inner quadrant ? C7-C8: ?Cashier Receptionist central ? C9-C10: ?? Cashier Receptionist upper inner quadrant ? C11-C12: ??Cashier Receptionist lower inner quadrant Ischemic Time: 0.8 hours ??pps Specimen (Source) Anatomical Collection Method Collection Time Re ceived Time Location / / Volume Laterality 03/15/2018 8:04 PM EST Marla Blue MD PATHOLOGY/CYTOLOGY ORDERABLE S Performing Organization Address City/State/ZIP Code Phon e Number [address] documented in this encounter Visit Diagnoses Diagnosis Breast cancer - Primary Malignant neoplasm of breast (female), u nspecified site Malignant neoplasm of female breast, uns pecified estrogen receptor status, unspecified laterality, unspecified site of breast documented in this encounter Admitting Diagnoses Diagnosis Breast [...] Oral, EVERY 6 HOURS PRN, Starting on Arpita 03/15/18 at 2220, Until Mon03/16/18 at 1349, Pain, [...] 03/15/2018 03/16/2018 acetaminophen (TYLENOL) tablet 1,000 mg 2226 (Given - Provider: Mackenzie Strickland, RN) 0611 (Given - Provider: Mackenzie Strickland , RN) 1,000 mg, Oral, EVERY 8 HOURS [...] 3 HOURS, 1 dose, First dose on Arpita 03/15/18 at 1500, Administer over 30 Minutes, Intra-Operative (Intra-Procedure), Indication for (Active or Suspected): Prophylaxis escitalopram (LEXAPRO) tablet 10 mg 899 (Given - Provider: Teresa Johnson, DAVID) 10 mg, Oral, DAILY, First dose on Mon at 0900, Until Discontinued, Routine levothyroxine (SYNTHROID) tablet 88 mcg 899 (Given - Provider: Teresa Johnson, DAVID) 88 mcg, Oral, DAILY, First dose on Mon at 0900, Until Discontinued, Routine scopolamine (TRANSDERM-SCOP) 1 mg over 3 days patch 1 patch (CANCELED) 1812 (Given - Provider: Francisca Olmos)1815 (Patch Applied - Provider: Francisca Olmos) 1 patch, Transdermal, EVERY 72 HOURS, Fi rst dose on Arpita 03/15/18 at 2000, Until Discontinued, Day of Surgery (Day of Procedure), Routine sodium chloride 0.9 % flush 5 mL 2341 (Given - P rovider: Mackenzie Strickland RN) 0900 (Given - Provider: Teresa Johnson, DAVID) 5 mL, Intravenous, 2 TIMES DAILY, First dose on Arpita 03/15/18 at 2345, Until Discontinued, Recovery (Recovery-Hospital Unit), Routine Continuous Medication Order 03/14/2018 03/15/2018 03/16/2018 lactated Ringers infusion 1,000 mL (CANCELED) 1812 (New Bag - Provider: Francisca Olmos)193 (New [...] injection (CANCELED) 2205 (Given - Provider: Mackenzie Strickland, DAVID)2217 (Given - Provider: Mackenzie Strickland, RN)2251 (Given - Provider: Mackenzie Strickland, RN) 25-50 mcg, Intravenous, EVERY 5 MIN [...] Startin g Arpita 03/15/18 at 2220, Until Mon03/16/18 at 1349, Pain, for moderate pain (5-7), [...] at 2319, Until 03/16/18 at 1349, Nausea, Vomiting, If multiple antiemetics are ordered, use ondansetron first. PO Preferred. If patient unable to take PO, may give IV if ordered. May repeat times one in 45 minutes if ineffective., Recovery (Recovery-Hospital Unit), Routine oxyCODONE (ROXICODONE) immediate release tablet 5 mg (CANCEL ED) 2227 (Given - Provider: Mackenzie Strickland RN) 5 [...] S tarting Arpita 03/15/18 at 2319, Until Mon03/16/18 at 1349, flush, Flush pertains to all [...] Unit) documented in this encounter Care Teams Cotton Cleaner Relationship Specialty Start Date End Date Christine Fuentes PA PCP - General Family Medicine 01/24/17 10/08/19 [address] [place] [address] documented as of this encounter
--- OUTSIDE RECORDS SUMMARY | 2021-12-24 14:49 | XMS_ITS | Encounter Summary ---
:1955 Author Organization [facility] [place] [address] Care Team Providers Name Role Phone Christine Fuentes Primary Care Provider Encounter Details Date Type Department Care Team Description 02/21/2018 Notes Only [facility] [place] [address] [place] [address] [phone] (Wo rk) Social History Tobacco Use Types [...] Pressure - - Pulse - - Temperature - - Respiratory Rate - - Oxygen Saturation - - Inhaled Oxygen Concentration - - Weight 76 kg (167 lb 8 oz) 02/21/2018 12:17 PM EST Height 161.9 cm (5' 3.75) 02/21/2018 12:17 PM EST Body Mass Index 28.98 02/21/2018 12:17 PM EST documented in this encounter Progress Notes Aliyah Maynard RN - 02/21/2018 12:17 PM EST [id number]: Preclinical study of the aryl hydrocarbon receptor and other biomarkers in human adipose tissue and their potential links among obesity and breast cancer Date: 02/21/2018 Objective of visit: Meet with patient in 3K clinic to provide information regarding protocol [id number],answer questions or concerns about study plan and evaluate interest in study participation. Information Provided: Protocol was reviewed with patient including, a description of the proposed blood, tissue and questionnaires and follow-up including duration of subject???s participation in study. Potential discomforts and risks were reviewed. The patient was informed regarding the uncertainties, both in terms of benefit as well as risks that are part of participation in this clinical trial. Discussed confidentiality of patient???s health information as specified in the protocol. Pt was advised that she may discontinue treatment at any time and that refusing to participate or discontinuing treatment will not compromise the patient???s access to treatment options or care. The patient was given written information regarding the protocol and was offered adequate time to review the information. The patient was given adequate time to ask questions and review concerns, all of which were answeredto the patient???s satisfaction. She asked if Dr. Brice is supportive of this study and I assured her that she is there is just a lot already for her to discuss with patients. Oncology Vitals 02/21/2018 Weight (kg) 75.978 kg Weight (lb) 167 lb 8 oz Height 161.9 cm BSA (Calculated - sq m) 1.85 BMI (Calculated) 28.97 Temp 99.2 Temp src 101 Pulse Heart Rate Source Resp BP BP Location Patient Position SpO2 Pain Level 0 Karnofsky Score Motor Neuropathy Sensory Neuropathy 6.1 Inclusion Criteria A. Male or female patients Female B. Age of 18 years to 75 years old 62 yo C. A clinical indication for breast or abdominal surgery breast ca D. A body mass index (BMI) equal to or greater than 19 30.1 E. Medical condition and performance status appropriate for surgery. yes 6.2 Exclusion Criteria A. Current diagnosis of unresected GI malignancy No B. Inability or unwillingness to have surgery No C. Unable to consent No D. or lactating female patients No E. Ongoing or active systemic infection No F. Subjects who have had a >10% weight loss in the previous 3 months or have received chemotherapy in the previous month so as to minimize perturbed metabolic states. No G. Men who are having surgery for breast cancer.n/a Assessment/Outcome: Consent to participate language: Patient verbalized understanding of protocol and consents for treatment. Patient signed and dated consent, copy given to patient. She consents to have a tissue sample from the affected breast biopsy from bilateral sites. After signing consent she completed study questionnaire. Waist measurement was 40.5 inches. Original, signed informed consent document scanned into patient???s electronic medical record and original hard copy given to Eleonora Mercedes, CRC. Written informed consent was obtained prior to any study procedures being done. Plan: 1. Eligibility will be reviewed and patient will be enrolled on study [id number] per her consent. 2. Orders will be placed for study lab and tissue sample to be taken day of procedure; which will conclude her participation in the study. Dr. Cordova's lab notified. documented in this encounter Plan of Treatment Not on filedocumented as of this encounter Visit Diagnoses Not on filedocumented in this encounter Care Teams Presser Automatic Relationship Specialty Start Date End Date Christine Fuentes PA PCP - General Family Medicine 01/24/17 10/08/19 [address] [place] [address] documented as of this encounter
--- OUTSIDE RECORDS SUMMARY | 2021-12-24 14:49 | XMS_ITS | Encounter Summary ---
:1955 [place] [address] Care Team Providers Name Role Phone Christine [...] Expiration Date Visits Requ ested Visits Authorized [id number] 1 1 Encounter Details Date Type Department Care Team Description 03/15/2018 Anesthesia Event Main Operating Room Zhou Edge MD [facility] [address] [facility] (Former[facility])[3] Natty Henriquez MD [facility] [place] [address] [facility] [place] [address] Anesthesia Record Procedure Summary Procedure Name Responsible Anesthesia Start Anesthesia Stop Time Anesthesiologist Time MASTECTOMY, SIMPLE, Zhou De Jesus MD 03/15/18 1813 01/24/19 2156 COMPLETE-CARITO (WRVU 15.85) (Bilateral Breast) Events Date Time Event Comment 03/15/2018 1501 1813 Start 1818 AN Verify 1818 An Start Data 182 An Induction 1824 An Intubation 1830 Quick Note Bilateral pector arnulfo blocks performed per block team 1845 Anesthesia Ready 1907 Procedure Start 2142 Extubation/LMA Out 2145 an stop data 2149 an stop data 2152 Recovery or ICU Handoff Patient care was transferred to the destination unit staff after review of the patient's medica l history, current anesthetic/surgi chel status and plan, according to the Provider Handoff Checklist. 2155 Stop Name Total Propofol 150 mg Propofol INF 685.99 mg fentaNYL 100 mcg Midazolam 2 mg IV Lidocaine 80 mg Dexamethasone 8 mg Ondansetron 8 mg ePHEDrine 20 mg PHENYLephrine 600 mcg ceFAZolin (ANCEF) 2g in dextrose 5% 100 mL 4 g BUpivacaine 0.25% 40 mL PHENYLephrine INF 4,420 mcg scopolamine (TRANSDERM-SCOP) 1 mg over 3 days patch 1 patch 1 patch Dexmedetomidine 12 mcg lactated Ringers infusion 1,000 mL 1,600 mL Agents Name O2 Air N2O Sevoflurane (et) Blood No blood administrations on file. Lines, Drains, and Airways Type Details Placement Removal Drain/Device Site 03/15/18; 2048; Left; 03/15/182048 by breast; Lilliam Craig RN closed device (15 fr. drain); Dr. Brice Drain/Device Site 03/15/18; 2053; Right; 03/15/182053 by breast; Lilliam Craig RN closed device (15 fr. drain); Dr. Brice Incision 03/30/17; 1304; breast; 03/30/17 1304 by 2 1715 by 10/18/21 (LDA cleanup Francesca Mead, [place] Patricio utility RA#[id number]); 1715 (LDA cleanup utility RA#[id number]) Supraglottic Mask Ventilation: Easy 03/15/189 by 03/15/182142 by (1); LMA Type: iGel; LMA Francisca Olmos, Sanjuana Gann, Size: 3; Inserted by: ZEB Saini SRNA Incision 03/15/18; 1841; breast; 03/15/18 1841 by 2 1715 by 10/18/21 (LDA cleanup Lilliam Gill, RN Jina Sherleyrubina Don utility RA#[id number]); 1715 (LDA cleanup utility RA#[id number]) PIV 03/15/18; 1856; 03/15/18 1856 by 03/16/18 1121 b y metacarpal vein (top of [place], Francisca Lewis, OFFICE MOVER Teresa Babcock, hand), left; RN utuh-otf-[id number] catheter system; 20 gauge; 03/16/18; 1121 documented in this encounter Social History Tobacco Use Types Packs/Day Years [...] on file documented as of this encounter OR Notes Anesthesia Postprocedure Evaluation - Zhou De Jesus MD - 03/15/2018 11:23 PM EST [facility] Department of Anesthesiology Post-procedure Note Patient: Cecilia Marx Procedure Summary Date: 03/15/18 Room / Location: [facility] OR [address] [place] [address] MAIN OR Anesthesia Start: 1812 Anesthesia Stop: 2155 Procedures: MASTECTOMY, SIMPLE, COMPLETE-CARITO (WRVU 15.85) (Bilateral Breast) BIOPSY OR EXCISION OF LYMPH NODE(S), OPEN, DEEP AXILLARY NODE(S) (WRVU 6.43) (Right Axilla) INTRAOPERATIVE ID (MAPPING) SENTINEL LYMPH NODE,INCLUDES INJECTION (WRVU 2.5) (Right ) Diagnosis: (breast cancer) Surgeon: Marla Brice MD Responsible Provider: Zhou De Jesus MD Anesthesia Type: general ASA Status: 2 All Anesthesia Providers: Anesthesiologist: David Weston MD; Zhou De Jesus MD OFFICE MOVER: Sanjuana Loja CRNA Student Nurse Fine Dining Server: Francisca Olmos Vitals Value Taken Time BP 129/87 03/15/2018 11:15 PM Temp 36.8 ??C (98.2 ??F) 03/15/2018 11:15 PM Pulse 95 03/15/2018 11:15 PM Resp 16 03/15/2018 11:15 PM SpO2 97 % 03/15/2018 11:17 PM Pain Level 5 03/15/2018 10:52 PM Vitals shown include unvalidated device data. Patient Location: PACU/[facility] Level of Consciousness: Awake and Alert Pain Management: PONV: Ongoing PONV/Being Treated Cardiovascular Status: At Baseline Respiratory Status: At Baseline Postoperative Fluid Status: Intravascular EUvolemia Possible Anesthetic Complications: NONE apparent at time of evaluation Final Primary Anesthesia Type: General (The anesthetic type performed was the same as planned.) Comments: I have evaluated the patient in the postoperative period. The time of my evaluation may not match the note time. The patient is getting opioid therapy for pain. There are no serious complications evident. Anesthesia Procedure Notes - Spike Miranda - 03/15/2018 7:27 PM EST Associated Order(s): Anesthesia Block Anesthesia Block Performed by: Spike Miranda DO Authorized by: Zhou De Jesus MD Start Time: 03/15/2018 6:30 PM End Time: 03/15/2018 6:45 PM Patient Location: Main OR Indication: Post-op Pain Control Post-op pain management at the request of surgeon. Block Type: PEC block Laterality: Bilateral Position: Supine Prep: Chlorhexidine, patient draped, gown and mask, cap, sterile gloves, hand hygeine W-eghjs-eyibi 21 10 cm Ultrasound Guided: Live and in-plane Ultrasound guidance was used to identify the targeted neuronal structure. Ultrasound was also used to identify needle position and to identify tissue (bone, muscle, and blood vessels) to prevent inadvertent intraneural or intravascular needle placement and injection. The spread of local anesthetic was confirmed with live ultrasound imaging. Single-Shot: Single-shot BUpivacaine 0.25%, 40 mL no complications Resident/OFFICE MOVER:: Spike Miranda DO Attending Physician:: Zhou De Jesus MD 20cc 0.25% infiltrated each side. 10cc for PEC 1 block and 10cc for PEC 2 block. Anesthesia Preprocedure Evaluation - David Weston MD - 03/15/2018 12:10 PM EST Pre-Anesthesia Evaluation for: Cecilia Marx a 62 y.o. female. Procedure(s): MASTECTOMY, SIMPLE, COMPLETE-CARITO (WRVU 15.85) BIOPSY OR EXCISION OF LYMPH NODE(S), OPEN, DEEP AXILLARY NODE(S) (WRVU 6.43) INTRAOPERATIVE ID (MAPPING) SENTINEL LYMPH NODE,INCLUDES INJECTION (WRVU 2.5) Patient Active Problem List Diagnosis ??? Atypical ductal hyperplasia of left breast ??? DCIS (ductal carcinoma in situ) of breast Past Medical History: Diagnosis Date ??? Breast [...] Stereotactic Biopsy Right 01/30/2018 Babs Duvall MD [facility] RAD MAMMOGRAPHY ??? PRO EXCISE BREAST LES W XRAY MARKER Left 03/30/2017 EXCISION LESION, BREAST W/ PREOP.MARKER (NEEDLE LOC.) (WRVU 6.69) performed by Marla Brice MD at [facility] Social History Tobacco Use ??? Smoking status: Former Smoker Last attempt to quit: 10/19/2011 Years since quittin.4 ??? Smokeless tobacco: Never Used Substance Use Topics ??? Alcohol use: Not on file Comment: very rare Social History Substance and Sexual Activity Drug Use No Allergies Allergen Reactions ??? Adhesive Rash ??? Nitrofurantoin Monohyd/M-Cryst Rash,( Macrobid) Medications: MAR and/or home medications have been reviewed. Physical Exam: There were no vitals filed for this visit. There is no height or weight on file to calculate BMI. Airway Assessment: Mallampati: II TM distance: >3 FB Neck ROM: full Cardiovascular Assessment: Pulmonary Assessment: Dental Assessment: - normal exam Misc Assessment: Anesthesia Plan: ASA 2 general, with a(n) intravenous induction Attending Assessment: Patient personally seen and examined. 62yo F with DCIS of right breast, presenting for b/l simple mastectomy and right sentinel lymph nodedissection. PMH: former smoker (quit 2011), hypothyroidism, migraines No cardiac or pulmonary problems. No recent URI. No GERD (asymptomatic in preop). No problems with anesthesia in the past. Tolerated MAC for L breast lesion excision in 03/2017. Meds: reviewed, includes amitriptyline, lexapro, ASA 81 (has held for ~3 weeks, patient was started on it by PCP for migraines) NPO status adequate Plan: - preop Tylenol, b/l pectoralis block post-induction - standard ASA monitors, PIV - GA with LMA The patient was informed of the risks, benefits and alternatives of anesthesia. These risks included, but were not limited to, post-operative nausea and/or vomiting, pain, sore throat, dental/lip injury, and other rare but serious complications such as cardiac instability/arrest, neurologic event, awareness, severe allergic reactions, position-related nerve injuries, and need blood transfusions. All questions sought and answered. Consent was signed and placed in chart. David Weston MD 03/15/2018 Region - Other Informed Consent: Anesthetic plan and risks discussed with patient. Plan discussed with OFFICE MOVER. PAT Staff Note documented in this encounter Plan of Treatment Not on filedocumented as of this encounter Procedures Procedure Name Priority Date/Time Associated Diagnosis Comme nts ANESTHESIA BLOCK Routine 03/15/2018 7:27 PM Resul ts for this EST procedure are i n the results section. documented in this encounter Results Anesthesia Block (03/15/2018 7:27 PM EST) Narrative Sites, Zhou Lewis MD - 03/15/2018 7:27 PM EST Spike Miranda, DO ? 03/15/2018 ??7:29 PM Anesthesia Block Performed by: Spike Miranda DO Authorized by: Zhou De Jesus MD Start Time: ??03/15/2018 6:30 PM End Time: ??03/15/2018 6:45 PM Patient Location: ??Main OR Indication: ??Post-op Pain Control Post-op pain management at the request o f surgeon. ?? Block Type: ??PEC block Laterality: ??Bilateral Position: ??Supine Prep: ??Chlorhexidine, patient draped, g own and mask, cap, sterile gloves, hand hygeine A-ryfgr-tngrl 21 10 cm Ultrasound Guided: ??Live and in-plane Ultrasound guidance was used to identify the targeted neuronal structure. Ultrasound was also used to identify nee dle position and to identify tissue (bone, muscle, and blood vessels) to prevent inadvertent intraneural or intravascular needle plac ement and injection. The spread of local anesthetic was confirmed with live ultrasound imaging. ?? Single-Shot: ??Single-shot BUpivacaine 0.25%, 40 mL no complications ?? Resident/OFFICE MOVER:: ??Spike Miranda DO Attending Physician:: ??Zhou De Jesus MD 20cc 0.25% infiltrated each side. 10cc for PEC 1 block and 10cc for PEC 2 block. Zhou De Jesus MD BOATBUILDER SUPERVIS[employer] documented in this encounter Visit Diagnoses Not on filedocumented in this encounter Administered Medications Inactive Administered Medications - up to 3 most recent administrations Medication Order MAR Action Action Date Dose Rate Site BUpivacaine (MARACAINE) 0.25% Given 03/15/2018 7:27 PM EST 40 mL s bolus injection (Anesthesia) Epidural, Starting on Arpita 03/15/18 at 1927, Until Arpita 03/15/18 at 1927, Anesthesia Intra-op, Routine ceFAZolin (ANCEF) 2g in dextrose 5% 100 mL Given 03/15/2018 9:37 PM EST 2 g 2 g, Intravenous, EVERY 3 HOURS, 1 dose, First dose on Arpita 03/15/18 at 1500, Administer over 30 Minutes, Intra-Operative (Intra-Procedure), Indication for (Active or Suspected): Prophylaxis Given 03/15/2018 6:37 PM EST 2 g dexamethasone (DECADRON) injection Given 03/15/2018 6:24 PM EST 8 mg Intravenous, PRN, Starting on Arpita 03/15/18 at 1824, Until Arpita 03/15/18 at 2200, Anesthesia Intra-op, Routine dexmedetomidine (PRECEDEX) injection Given 03/15/2018 7:48 PM EST 4 mcg PRN, Starting on Arpita 03/15/18 at 1948, Until Arpita 03/15/18 at 2200, Anesthesia Intra-op, Routine Given 03/15/2018 7:09 PM EST 4 mcg Given 03/15/2018 6:33 PM EST 4 mcg ePHEDrine 5 mg/mL multi-dose injection Given 03/15/2018 7:29 PM EST 10 mg Intravenous, PRN, Starting on Arpita 03/15/18 at 1900, Until Arpita 03/15/18 at 2200, Anesthesia Intra-op, Routine Given 03/15/2018 7:18 PM EST 5 mg Given 03/15/2018 7:00 PM EST 5 mg fentaNYL 50 mcg/mL multi-dose injection Given 03/15/2018 7:54 PM EST 25 mcg Intravenous, PRN, Starting on Arpita 03/15/18 at 1829, Until Arpita 03/15/18 at 2200, Anesthesia Intra-op, Routine Given 03/15/2018 7:41 PM EST 25 mcg Given 03/15/2018 7:08 PM EST 25 mcg lactated Ringers infusion 1,000 New Bag 03/15/2018 10:08 PM ES T 1,000 mLs 100 mL/hr mL 1,000 mL, at 100 mL/hr, Intravenous, CONTINUOUS, Starting on Arpita 03/15/18 at 1500, Until Arpita 03/15/18 at 2220, Day of Surgery (Day of Procedure) New Bag 03/15/2018 7:30 PM EST New Bag 03/15/2018 6:13 PM EST lidocaine (PF) (XYLOCAINE) 100 mg/5 mL (2 %) Given 9 6:22 PM EST 80 mg injection Intravenous, PRN, Starting on Arpita 03/15/18 at 1822, Until Arpita 03/15/18 at 2200, Anesthesia Intra-op, Routine midazolam (PF) (VERSED) multi-dose injec tion Given 03/15/2018 6:13 PM EST 2 mg Intravenous, PRN, Starting on Arpita 03/15/18 at 1813, Until Arpita 03/15/18 at 2200, Anesthesia Intra-op, Routine ondansetron (ZOFRAN) injection Given 03/15/2018 9:11 PM EST 8 mg Intravenous, PRN, Starting on Arpita 03/15/18 at 2111, Until Arpita 03/15/18 at 2200, Anesthesia Intra-op, Routine PHENYLephrine Rate/Dose Change 03/15/2018 9:22 PM 20 mcg/min 15 mL/hr (ALAYNA-SYNEPHRINE) 20 mg in EST sodium chloride 250 mL (standard ADULT & Pedi greater than 20kg) infusion CONTINUOUS PRN, Starting on Arpita 03/15/18 at 1918, Until Arpita 03/15/18 at 2200, Anesthesia Intra-op, Routine Rate/Dose Change 03/15/2018 8:49 PM EST 40 mcg/min 30 mL/hr Rate/Dose Change 03/15/2018 7:58 PM EST 30 mcg/min 22.5 mL/hr PHENYLephrine in NS (PF) (ALAYNA-SYNEPHRINE) 0.8 Given 8:00 PM EST 40 mcg mg/10 mL (80 mcg/mL) multi-dose injection Syrg Intravenous, PRN, Starting on Arpita 03/15/18 at 1845, Until Arpita 03/15/18 at 2200, Anesthesia Intra-op, Routine Given 03/15/2018 7:18 PM EST 160 mcg Given 03/15/2018 7:00 PM EST 160 mcg propofol (DIPRIVAN) 10 mg/mL bolus injection Given 6:23 PM EST 150 mg (Anesthesia) Intravenous, PRN, Starting on Arpita 03/15/18 at 1823, Until Arpita 03/15/18 at 2200, Anesthesia Intra-op propofol (DIPRIVAN) infusion Rate/Dose 03/15/2018 6:45 50 mcg/kg/min 22.7 mL/hr Intravenous, CONTINUOUS PRN, Change PM EST Starting on Arpita 03/15/18 at 1824, Until Arpita 03/15/18 at 2200, Anesthesia Intra-op, Routine New Bag 03/15/2018 6:24 PM EST 100 mcg/kg/min 45.5 mL/hr scopolamine (TRANSDERM-SCOP) Patch Applied 03/15/2018 6:15 PM EST 1 p atch Left Ear 1 mg over 3 days patch 1 patch 1 patch, Transdermal, EVERY 72 HOURS, First dose on Arpita 03/15/18 at 2000, Until Discontinued, Day of Surgery (Day of Procedure), Routine Given 03/15/2018 6:13 PM EST 1 patch documented in this encounter Care Teams Antique Collector Relationship Specialty Start Date End Date Christine Fuentes PA PCP - General Family Medicine 01/24/17 10/08/19 [address] [place] [address] documented as of this encounter
--- OUTSIDE RECORDS SUMMARY | 2021-12-24 14:49 | XMS_ITS | Encounter Summary ---
:1955 Author Organization [facility] [place] [address] Care Team Providers Name Role Phone Christine Fuentes Primary Care Provider Reason for Referral Diagnostic Test (Routine) - Closed Specialty Diagnoses / Procedures Referred By Contact Refer red To Contact Radiology Diagnoses Ductal carcinoma in situ (DCIS) of right breast Marla Brice MD [facility] Rad Nuclear Med Procedures NM [place] Node [place] [address] [place] [address] Referral ID Status Reason Start Date Expiration Date Visits V isits Requested Authorized [id number] Closed Specialty 02/23/2018 02/23/2019 1 1 Service Requested Reason for Visit Diagnostic Test (Routine) - Closed Specialty Diagnoses / Procedures Referred By Contact Refer red To Contact Radiology Diagnoses Ductal carcinoma in situ (DCIS) of right breast Marla Brice MD [facility] Rad Nuclear Med Procedures NM [place] Node [place] [address] [place] [address] Referral ID Status Reason Start Date Expiration Date Visits V isits Requested Authorized [id number] Closed Specialty 02/23/2018 02/23/2019 1 1 Service Requested Encounter Details Date Type Department Care Team Description 03/15/2018 Hospital Encounter Nuclear Medicine at [facility] Ductal carcinoma in Ashley Shaw MD Mirza situ (DCIS) of [facility] rig ht breast Drive [address] [place], [place] [facility]ERY [address] [place] [address] [phone] Social History Tobacco Use Types Packs/Day Years [...] 0 019 03/30/2018 mg Tablet mouth daily. acetaminophen (TYLENOL) Take 1,000 mg by mouth 0 03/16/2018 500 mg every 6 hours as TabletIndications: pain needed for Pain. Indications: Pain buPROPion (WELLBUTRIN Take by mouth. 0 03/16/2018 [...] Name Priority Date/Time Associated Diagnosis Comme nts NM SENTINEL NODE Routine 03/15/2018 1:11 PM Ductal carcinoma i n Results for this INJECTION BREAST EST situ (DCIS) of right pro cedure are in WITHOUT IMAGING breast the results section. documented in this encounter Results NM [place] Node Injection Breast wo Imaging (03/15/2018 1:11 PM EST) Anatomical Region Laterality Modality Nuclear Medicine Specimen (Source) Anatomical Location Collection Method / Collectio n Time Received Time / Laterality Volume Impressions 03/15/2018 1:50 PM EST [place] node injections performed without complication. Thank you for letting us participate in the care of this patient. For questions regarding this report, please contact e number below. ? Narrative 03/15/2018 1:50 PM EST EXAMINATION: NM [...] left the department in good condition. IMPRESSION [place] node injections performed witho ut complication. Thank you for letting us participate in the care of this patient. For questions regarding this report, please contact e number below. Marla Blue MD IM [place] ORDERABLES documented in this encounter Visit Diagnoses Diagnosis Ductal carcinoma in situ (DCIS) of right breast documented in this encounter Administered Medications Inactive Administered Medications - up to 3 most recent administrations Medication Order MAR Action Action Date Dose Rate Site technetium (Tc-99m) sulfur Given 03/15/2018 1:05 PM EST 1.4 mCi colloid injection 1.4 mCi 1.4 mCi, Intravenous, ONCE PRN, 1 dose, Starting on Arpita 03/15/18 at 1305, Until Arpita 03/15/18 at 1305, Per Protocol, RT Breast, Routine documented in this encounter Care Teams Camera Control Operator Relationship Specialty Start Date End Date Christine Fuentes PA PCP - General Family Medicine 01/24/17 10/08/19 [address] [place] [address] documented as of this encounter
--- OUTSIDE RECORDS SUMMARY | 2021-12-24 14:49 | XMS_ITS | Encounter Summary ---
:1955 Author Organization [facility] [place] [address] Care Team Providers Name Role Phone Christine Fuentes Primary Care Provider Encounter Details Date Type Department Care Team Description 08/09/2018 Office Visit General Surgery at [facility] of breast cancer; [facility] Silvia, MIRIAN Seroma of breast [facility] [place] [address] [place] [address] [phone] (Wo rk) Social History Tobacco Use Types [...] documented as of this encounter Progress Notes Rhoda Brumfield APRN - 08/09/2018 9:30 AM EDT Cecilia returns for today for evaluation of a possible seroma over the medial aspect of her left mastectomy site . She is a patient of Dr Brice who is s/p bilateral mastectomy and right SLNB. She healed well after surgery but did develop a small hematoma over the medial aspect of her left mastectomy site.She was advised by Dr Brice that it would take time to break down and resorb. She has been monitoring the area and reports that it is smaller but still causes her some awareness and wonders if it can be aspirated. She wears prostheses without any trouble. No skin irritation or redness. Breast Cancer Summary Right breast DCIS s/p bilateral mastectomy (no recon) and right SLNB Date: 03/15/18 5 cm, intermediate grade 0 of 4 LNs positive cells,, ER+/IA+ pTNM: ---(m)Tis N0 (AJCC) RIght breast DCIS s/p partial mastectomy and RT in 2009 ([facility]) Left breast, mastectomy: - Focal atypical lobular hyperplasia - Intraductal papillomas, sclerosing adenosis, columnar cell change/hyperplasia, ??usual ductal hyperplasia, and apocrine cysts - Changes consistent with prior surgical site PE: She has a well-healed mastectomy incisions on bilateral chest wall. No erythema or seroma. Skin flaps healthy and pink with good cap refill. No lymphedema of arms No adenopathy. Redundant tissue laterally on the left.Small amount of soft tissue/redundant tissue medially.Not tense or fluctuant. Imp: Cecilia Marx is a 63 y.o. female with history of right breast DCIS s/p PM and RT in 2010 s/p bilateral mastectomy and right SLNB. Well healed mastectomy sites with redundant soft tissue on the left medially and laterally. No evidence of seroma or persistent hematoma. Plan: I reviewed my assessment with Cecilia. Suggest massage and or heat as she may have a small amount of associated edema but no clear evidenceof seroma so no indication for aspiration.Return in 12 months for CBE. I told Cecilia that I will be retiring in December and that her next follow up surgical appointment will be with a new provider.She knows that Dr Brice will be leaving at the end of July as well.She agrees. documented in this encounter Plan of Treatment Not on filedocumented as of this encounter Visit Diagnoses Diagnosis History of breast cancer Personal history of malignant neoplasm o f breast Seroma of breast documented in this encounter Care Teams [employer] Supervisor Relationship Specialty Start Date End Date Christine Fuentes PA PCP - General Family Medicine 01/24/17 10/08/19 [address] [place] [address] documented as of this encounter
--- OUTSIDE RECORDS SUMMARY | 2021-12-24 14:49 | XMS_ITS | Encounter Summary ---
:1955 Author Organization [facility] [place] [address] Care Team Providers Name Role Phone Christine Fuentes Primary Care Provider Encounter Details Date Type Department Care Team Description 03/01/2018 Telephone Hematology and Oncology at Domenica Lama L[facility] Joshua pineda HEMATOLOGY/[place] [address] [place] [address] [phone] (Wo rk) Social History Tobacco Use Types [...] this encounter Miscellaneous Notes Telephone Encounter - Domenica Lama LGC - 03/01/2018 12:46 PM EST This test result was discussed with the patient by phone. A copy of a letter sent to the patient containing these results is provided below. Please be advised that [place] law requires that all health care workers respect the confidentiality of this information and not pass it along to other health care providers, insurance companies, or individuals without the written permission of the patient. The [facility] welcomes any questions about these matters. Our phone number is: [phone]. On February 21, 2018, Cecilia underwent genetic testing for a hereditary predisposition to common hereditary cancers, including breast, gynecologic and gastrointestinal. Following are the results of this test. Result: [facility]'s Common Hereditary Cancers Panel showed no mutation was detected. This means that Cecilia does not carry a mutation in the genes detectable by this test. The following genes were evaluated for sequence changes and exonic deletions/duplications: APC, MARTINA, AXIN2, BARD1, BMPR1A, BRCA1, BRCA2, BRIP1, CDH1, CDK4, CDKN2A (p14ARF), CDKN2A ([id number]), CHEK2, CTNNA1, DICER1, EPCAM (EPCAM: Deletion/duplication testing only ([id number]), GREM1 (GREM1: Promoter region deletion/duplication testing only.), KIT, MEN1, MLH1, MSH2, MSH3, MSH6, MUTYH, NBN, NF1, PALB2, PDGFRA, PMS2, POLD1, POLE, PTEN, RAD50, RAD51C, RAD51D, SDHB, SDHC, SDHD, SMAD4, SMARCA4, STK11, TP53, TSC1, TSC2, VHL. The following genes were evaluated for sequence changes only: HOXB13 (c.251G>A, p.Vbs97Lya variant only), NTHL1 (NTHL1:Deletion/duplication analysis is not offered for this gene ([id number]), and SDHA. A variant of uncertain significance in the STK11 gene, specifically c.992G>A ([id number]), was detected. We are enclosing a printed copy of Cecilia's test results. Interpretation: It is unclear at this time whether the STK11 variant of uncertain significance identified in Cecilia is a cancer associated mutation or is a benign change in the gene with no increased cancer risks. [facility] is continually collecting and analyzing their data, in an effort to reclassify these variants as either cancer causing mutations or benign changes in a gene (also called polymorphisms). We will be contacted by the laboratory when reclassification is made and we would then notify Cecilia. Because the genetic basis, if any, of the breast cancers in Cecilia and her family has not been identified, this negative test result does not necessarily mean that Cecilia's cancers were sporadic (i.e. not attributable to an inherited predisposition). This is because of two important limitations of the test. First, not all inherited predisposition to cancer is attributable to the genes tested by this panel. Research has identified other genes that when mutated can increase one???s risk of cancer. Second, a small percentage of mutations in genes tested by this panel may be missed by current technology.Additional genetic testing for Cecilia or other family members is not recommended at this time. Specifically, family members should NOT be tested for the STK11 variant of uncertain significance identified to find out their cancer risk. However, we recommend that Cecilia recontact us from time to time to see if additional information has become available that could clarify her personal and family history. Screening Recommendations Based on genetic test results and personal and family history, upon completion of treatment, we recommend: Breast cancer screening ?? No established breast cancer screening recommended is post bilateral mastectomy which you are scheduled to have on March 15, 2018. Ovarian cancer screening ?? We do not recommend any special screening studies in addition to an annual SENIOR ACCOUNTS PAYABLE SPECIALIST exam at this time. Other cancer screening ?? Periodic colonoscopy screening as recommended by Cecilia's benzene operator. ?? Periodic skin exams documented in this encounter Plan of Treatment Not on filedocumented as of this encounter Visit Diagnoses Not on filedocumented in this encounter Care Teams Program Engagement Director Relationship Specialty Start Date End Date Christine Fuentes PA PCP - General Family Medicine 01/24/17 10/08/19 [address] [place] [address] documented as of this encounter
--- OUTSIDE RECORDS SUMMARY | 2021-12-24 14:49 | XMS_ITS | Encounter Summary ---
:1955 Author Organization [facility] [place] [address] Care Team Providers Name Role Phone Christine Fuentes Primary Care Provider Encounter Details Date Type Department Care Team Description 01/22/2018 Office Visit [facility] at [facility] [employer]ADER AND MARKER screening, high risk [facility] [address] [place] GENERAL SURGERY [id number] [place] [address] [phone] (Wo rk) Social History Tobacco Use Types [...] encounter Progress Notes Rhoda Brumfield APRN - 01/22/2018 10:45 AM EST Ms. Marx returns to clinic today for a post operative Check.On 03/30/17 she underwent a left breast wide local excision with after having a stereotactic biopsy for a complex sclerosing lesion (01/2017). Her pathology report was consistent with: Left breast, excision: 1. Atypical ductal hyperplasia, two foci (see Discussion) 2. Focal atypical lobular hyperplasia 3. Flat epithelial atypia 4. Complex sclerosing lesion 5. Benign sclerosing papillary lesions 6. Columnar cell change and columnar cell hyperplasia 7. Sclerosing adenosis, usual ductal hyperplasia, and cysts 8. Biopsy site changes 9. Calcifications associated with atypical ductal hyperplasia, complex sclerosing ??lesion, and sclerosing adenosis Her post operative course was uneventful. She met with Dr Stack to discuss chemoprevention and they mutually agreed to no chemoprevention She declined an appt with genetics despite a family history of breast cancer On physical exam, her incision is intact,without disruption. No axillary adenopathy. Good ROM both arms. Left breast with a well healed incision, no masses. Right breast soft,no masses. Mammogram today pending Assessment/Plan: Doing well after left breast WLE for ADH. We discussed risks associated with an ADH pathology To be an increase by 1% per year. We discussed high risk follow up in light of ADH pathology to include semi annual breast exams, annual mammography and consideration of a med onc referral to discuss chemo prevention. In light of her family and personal history we discussed genetics appt. We will see her back in January 2019 for a mammogram and CBE. Her PCP will Perform an alternate CBE. She agrees. documented in this encounter Plan of Treatment Not on filedocumented as of this encounter Visit Diagnoses Diagnosis Breast cancer screening, high risk patie nt Screening mammogram for high-risk patien t documented in this encounter Care Teams Document Scanner Relationship Specialty Start Date End Date Christine Fuentes PA PCP - General Family Medicine 01/24/17 10/08/19 [address] [place] [address] documented as of this encounter
--- OUTSIDE RECORDS SUMMARY | 2021-12-24 14:49 | XMS_ITS | Encounter Summary ---
:1955 Author Organization [facility] [place] [address] Care Team Providers Name Role Phone Christine Fuentes Primary Care Provider Encounter Details Date Type Department Care Team Description 03/11/2018 Telephone Pediatric General Fraire Concetta Johnson MD [facility] [place] [address] GENERAL SURGERY [phone] [place] [id number] (Wo rk) Social History Tobacco Use Types [...] this encounter Miscellaneous Notes Telephone Encounter - Concetta Mullen MD - 03/11/2018 12:20 PM EST Mrs. Marx called in today concerned that she has a tooth infection for which her dentist is prescribing her an antibiotic and that this might have an effect on her mastectomy scheduled for this week.I explained that this should not effect on her surgery, especially since she is not planning on having reconstruction or prosthesis implanted. I also explained that if the infection were to get worse then she might want to consider postponing the mastectomy, but that we could wait and see how she doesover the next couple of days. She voiced understanding. Concetta Mullen MD 03/11/2018 documented in this encounter Plan of Treatment Not on filedocumented as of this encounter Visit Diagnoses Not on filedocumented in this encounter Care Teams Provider Relations Manager Relationship Specialty Start Date End Date Christine Fuentes PA PCP - General Family Medicine 01/24/17 10/08/19 [address] [place] [address] documented as of this encounter
--- OUTSIDE RECORDS SUMMARY | 2021-12-24 14:49 | XMS_ITS | Encounter Summary ---
:1955 Author Organization [facility] [place] [address] Care Team Providers Name Role Phone Christine Fuentes Primary Care Provider Encounter Details Date Type Department Care Team Description 02/27/2018 Telephone Hematology and Oncology at Domenica Lama L[facility] Joshua pineda HEMATOLOGY/[place] [address] [place] [address] [phone] (Wo rk) Social History Tobacco Use Types [...] Telephone Encounter - Domenica Lama LGC - 02/27/2018 12:47 PM EST Informed Cecilia of her negative or normal STAT Breast Cancer Panel (MARTINA, BRCA1, BRCA2, CDH1, CHEK2, PALB2, PTEN, STK11, TP53) genetic test results. STK11 c.992G>A (p.[id number]) variant of uncertain significance was identified. It is unclear at this time whether the STK11 variant of uncertain significance identified is a cancer associated mutation or is a benign change in the gene with no increased cancer risks. [facility] is continually collecting and analyzing their data, in an effort to reclassify these variants as either cancer causing mutations or benign changes in a gene (also called polymorphisms). We will be contacted by the laboratory when reclassification is made and we would then notify Cecilia. Cecilia is aware that I reflexed to a larger panel that includes other genes known to be associated with a moderate increased risk for breast cancer. I will contact Cecilia as soon as additional genetic test results become available. documented in this encounter Plan of Treatment Not on filedocumented as of this encounter Visit Diagnoses Not on filedocumented in this encounter Care Teams Full Time Relationship Specialty Start Date End Date Christine Fuentes PA PCP - General Family Medicine 01/24/17 10/08/19 [address] [place] [address] documented as of this encounter
--- OUTSIDE RECORDS SUMMARY | 2021-12-24 14:50 | XMS_ITS | Encounter Summary ---
:1955 [place] [address] Care Team Providers Name Role Phone Unavailable Primary Care Provider Unavailable Encounter Details Date Type Department Care Team Description 12/04/2009 Hospital Encounter Radiology Library at Landen Nicolas, [facility] [place] [address] DIAGNOSIC RADIOLOGY [phone] [place], [place] [address] (Wo rk) Social History Tobacco Use Types Packs/Day Years Used Date Never Assessed Sex Assigned at Date Recorded Not on file documented as of this encounter Plan of Treatment Not on filedocumented as of this encounter Procedures Procedure Name Priority Date/Time Associated Diagnosis Comme nts FILM LIBRARY Routine 12/04/2009 12:00 AM Results for this STORAGE ONLY MAMMO EDT procedure are in the results section. documented in this encounter Results Film Library- Storage Only Mammo (12/04/2009 12:00 AM EDT) Specimen (Source) Anatomical Location Collection Method / Collectio n Time Received Time / Laterality Volume Narrative RAD - 01/13/2017 9:15 AM EST This exam is for storage only and is aut o-finalizing. Spike Nicolas MD G FILM LIBRARY ORDERABLES Performing Organization Address City/State/ZIP Code Phon e Number RAD [place], [place] documented in this encounter Visit Diagnoses Not on filedocumented in this encounter
--- OUTSIDE RECORDS SUMMARY | 2021-12-24 14:50 | XMS_ITS | Encounter Summary ---
:1955 Author [place] [address] Care Team Providers Name Role Phone Spike Sierra MD Primary Care Provider Encounter Details Date Type Department Care Team Description 12/31/2014 Hospital Encounter Radiology Library Spike Nicolas creening breast at [facility] BMD examination [facility] [address] [place] DIAGNOSIC [address] RADIOLOGY [phone] [place] [address] Social History Tobacco Use Types Packs/Day Years Used Date Former Smoker Quit: 10/19/19 12 Sex Assigned at Date Recorded Not on file documented as of this encounter Medications at Time of Discharge Medication Sig Dispensed Refills Start Date End Date aspirin 81 mg EC tablet Take 81 mg by 0 mouth daily. levothyroxine (SYNTHROID) Take 75 mcg by 0 03/16/2018 75 mcg Tablet mouth daily. Cholecalciferol, Vitamin Take by mouth. 0 03/16/2018 D3, 2,000 unit Capsule amitriptyline (ELAVIL) 10 30mg, PO, QHS 0 011 03/16/2018 mg tablet escitalopram (LEXAPRO) 10 0 05/04/2010 03/08/2017 mg tablet alendronate (FOSAMAX) 70 mg 0 05/05/19 11 03/08/2017 tablet documented as of this encounter Plan of Treatment Not on filedocumented as of this encounter Procedures Procedure Name Priority Date/Time Associated Diagnosis Comme nts FILM LIBRARY Routine 12/31/2014 12:05 AM Screening breast Resu lts for this STORAGE ONLY MAMMO EST examination procedure are in the results section. documented in this encounter Results Film Library- Storage Only Mammo (12/31/2014 12:05 AM EST) Specimen (Source) Anatomical Location Collection Method / Collectio n Time Received Time / Laterality Volume Narrative DH RAD - 01/11/2017 4:48 PM EST This exam is for storage only and is aut o-finalizing. Spike Nicolas MD G FILM LIBRARY ORDERABLES Performing Organization Address City/State/ZIP Code Phon e Number RAD [place], [place] documented in this encounter Visit Diagnoses Diagnosis Screening breast examination (Not by Delores tristan) Other screening breast examination documented in this encounter Care Teams Groover And Turner Relationship Specialty Start Date End Date Spike Sierra MD PCP - General 01/12/10 01/23/17 [address] [place] [address] documented as of this encounter
--- OUTSIDE RECORDS SUMMARY | 2021-12-24 14:50 | XMS_ITS | Encounter Summary ---
:1955 [place] [address] Care Team Providers Name Role Phone Spike Sierra MD Primary Care Provider Encounter Details Date Type Department Care Team Description 05/04/2010 [facility] [address] RADIATION ONCOLOGY [place], [place] [address] [phone] Social History Tobacco Use Types Packs/Day Years Used Date Never Assessed Sex Assigned at Date Recorded Not on file documented as of this encounter Plan of Treatment Not on filedocumented as of this encounter Visit Diagnoses Not on filedocumented in this encounter Care Teams Skill Training Program Coordinator Relationship Specialty Start Date End Date Spike Sierra MD PCP - General 01/12/10 01/23/17 [address] [place] [address] documented as of this encounter
--- OUTSIDE RECORDS SUMMARY | 2021-12-24 14:50 | XMS_ITS | Encounter Summary ---
:1955 Author Organization [facility] [place] [address] Care Team Providers Name Role Phone Spike Sierra MD Primary Care Provider Encounter Details Date Type Department Care Team Description 03/31/2010 Follow-Up ZLEB DEP Ema Durbin MD [facility] [place] [address] RADIATION ONCO [place] [id number] (Wo rk) Social History Tobacco Use Types Packs/Day Years Used Date Never Assessed Sex Assigned at Date Recorded Not on file documented as of this encounter Plan of Treatment Not on filedocumented as of this encounter Visit Diagnoses Not on filedocumented in this encounter Care Teams Community Engagement Manager Relationship Specialty Start Date End Date Spike Sierra MD PCP - General 01/12/10 01/23/17 [address] [place] [address] documented as of this encounter
--- OUTSIDE RECORDS SUMMARY | 2021-12-24 14:50 | XMS_ITS | Encounter Summary ---
:1955 Author Organization [facility] [place] [address] Care Team Providers Name Role Phone Spike Sierra MD Primary Care Provider Encounter Details Date Type Department Care Team Description 03/07/2014 Ancillary Appointment Hematology Oncology at Denzel Payne [facility] [address] [place] [id number] Social History Tobacco Use Types Packs/Day Years Used Date Former Smoker Quit: 10/19/19 12 Sex Assigned at Date Recorded Not on file documented as of this encounter Progress Notes Denzel Payne, MUMTAZ - 03/07/2014 8:59 AM EST [facility] Dietitian Follow Up Assessment Seen By: Elida Payne, , RD, SERVICES COORDINATOR, LD Reason for visit: Wanting to lose weight. Patient and diagnosis: Cecilia Marx is a 58 y.o. female who was treated with lumpectomy followed by radiation therapy for breast cancer. Assessment: HPI: Dx in Oct 2009, surgery in Jan and treatment in Feb 2010. Patient Active Problem List Diagnosis Code ??? 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 Previous Wts: Down 3 lbs last week, weighed today and was the same (163 lbs) on 01/31/14. Weighing herself at home. Went from 173 lbs on 01/10/14 to 166 lbs on 01/17/14. Wt Hx: UBW: Slender during younger years, weight gain w/ menopause. Lifetime member of [employer] and comfort eater. Doesn't want to be a fat old lady. Would like to get 140 - 145 lbs. Happy with 150 lbs. % UBW: IBW: 50.9 kg +/- 10% % IBW: BMI: ___ Edema ___ Ascites ___Muscle wasting Calorie needs: 1200 kcals Protein needs: 57 g Fluid needs: 1.5 - 2 L Food Intake: Her Thanksgiving was good. Spent it with friends. Had small portions of everything offered. Am: cereal (Life) skim milk, raspberries, herbal tea. May have eggs and toast Noon: can of Shuttersongo lite soup and pickels Pm: lean cuisine and milk Snacks: typically 2 snacks/d. Fluids: Forces it when she has to. May take 3, 8 oz/d. Drinks 5-6 herbal teas/d. Milk with two meals, at least. Supplements/Frequency: ___ Ensure/Plus ___ Boost/Plus ___ CIB ___ Other: Teas, vitamins, or other nutritional supplements: Vit D3, Gummy MVI Food allergies or avoidances: nkfa Bowels: change somewhat, has had IBS in the past and fluctuates. The healthier she eats the better. When eating sweets/poor choices it will flare up. Food availability/purchasing, meal planning and preparation: Shares with , Tigre. He's a wonderful cook and loves to do it. Physical Activity: Jignesh treadmill, but has gotten up to 15 min. Wants to get up to 30 min. Walked Caesar T. 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 Level of Motivation/Readiness to Change: Contemplation/Action Nutrition Diagnosis: Weighing herself at home. Lost 10 lbs total. Her has lost 16 lbs so far. (now up to 17 min/treadmill). Logging calories, likes [place] and [place] and the meal suggestions, but didn't feel she could follow it to the T. She likes the suggestions, but wants more of the control (i.e. Menu says salmon, but she wants left overs). Walking on the treadmill (l8 min/X 4 d), wine only on the weekends, not logging food, but trying to be more aware. Wants to increase her exercise. We discussed the concept of food as fuel for metabolism the importance of eating small, frequent, calorically dense, protein-rich meals and snacks throughout the day not only to meet her body's needs, but also to help with weight loss. Also discussed the benefits of physical activity, 20-30 minutes, most days of the week to help with fatigue, stimulate appetite, and preserve muscle mass during treatment. We also discussed healthy weight loss parameters of no greater that 2 pounds of loss/week. Reviewed ACS' survivorship guidelines for reducing risk of cancer recurrance: -- Obtain and maintain a healthy weight. -- Physical activity: 150 min/wk of moderate-vigorous physical activity with 2 days resistance/strength training. -- Adopt a plant-based diet: this would include lean meat sources (fish, skinless poultry, eggs, low-fat dairy), fruits, vegetables, and whole grains. Minimize processed foods. -- Dietary Fat Restriction - the WINS study showed a 10% decreased risk of breast cancer recurrencein women with ER positive breast cancer who were randomized to cut their dietary fat intake from 30%to 20% of calories as fat -- Alcohol in moderation (one drink for women, 1-2 for males/d) -- Soy is safe to consume, yet choose foods in whole, most-complete form (i.e. Soy milk, tofu, edemame) -- Daily multivitamin use is also safe. -- Vitamin D3 levels has been shown to be low in BrCa patients, thus recommended getting levels checked (either by PCP or oncologists) supplementing 1,000 IU/d and then retesting levels, if suboptimal in 3-6 mos. The [facility] series from [facility] September 2008 showed a lower risk of breast cancer recurrence in women with 25-hydroxy Vitamin D levels of 35 ng/mL or higher Nutrition Intervention: ? Decrease caloric needs: reviewed small changes in daily diet to reduce intake ? Modify diet consistency: ? Increase frequency of meals and snacks ? Need for supplements Nutrition Goals: -- Continue to drink up water intake to 4 glasses/d. -- Snacks: will eat fruit. This is hard for her, and she is doing better -- She lost 1 lb during [place] holidays, which her goal was to maintain. Would like to be out of the 160s when she returns in Mar. -- Increasing time on treadmill. She wants to move more. We reviewed workout dvds, websites with videos. -- Holding herself accountable -- Reviewed NAP challenge, which starts on 03/17. Educational Handouts provided: -- Healthier substitutions: A Dietitian's Guide -- Healthy holiday substitutions chart -- smart snacking for Adults and Teens (AND) -- Stop Stress Eating -- Healthy service worker helper (Parature) Other Recommendations: Monitoring and Evaluation: Will follow up with Mrs. Marx in one week (s) to re-evaluate. documented in this encounter Plan of Treatment Not on filedocumented as of this encounter Visit Diagnoses Not on filedocumented in this encounter Care Teams Behavioral Scientist Relationship Specialty Start Date End Date Spike Sierra MD PCP - General 01/12/10 01/23/17 [address] [place] [address] documented as of this encounter
--- OUTSIDE RECORDS SUMMARY | 2021-12-24 14:50 | XMS_ITS | Encounter Summary ---
:1955 Author Organization [facility] [place] [address] Care Team Providers Name Role Phone Christine Fuentes Primary Care Provider Reason for Visit Auth/Cert Specialty Diagnoses / Procedures Referred By Contact Refer red To Contact Diagnoses LEFT BREAST COMPLEX SCLEROSING LESION Procedures PRO EXCISE BREAST LES W XRAY MARKER EXCISION LESION, BREAST W/ PREOP.MARKER (NEEDLE LOC.) (WRVU 6.69) MODIFIER WITH NEEDLE LOC., LESION #1 Referral ID Status Reason Start Date Expiration Date Visits Requ ested Visits Authorized [id number] 1 1 Encounter Details Date Type Department Care Team Description 03/30/2017 Surgery Outpatient Surgery Savana Zepeda V, EXCISION LESION, BREAST Center Ashley Shwa MD W/ PREOP.MARKER ([facility] DR LOC.) (WRVU 6.69) [place] [address] [place] [address] [phone] Social History Tobacco Use Types Packs/Day Years [...] Sign Reading Time Taken Comments Blood Pressure 143/89 03/30/2017 9:57 AM EST Pulse 86 03/30/2017 9:57 AM EST Temperature 36.9 ??C (98.4 ??F) 03/30/2017 9:57 AM EST Respiratory Rate 18 03/30/2017 9:57 AM EST Oxygen Saturation 98% 03/30/2017 9:57 AM EST Inhaled Oxygen Concentration - - Weight 77.1 kg (170 lb) 03/30/2017 9:57 AM EST Height 161.3 cm (5' 3.5) 03/30/2017 9:57 AM EST Body Mass Index 29.64 03/30/2017 9:57 AM EST documented in this encounter Discharge Instructions Discharge InstructionsVahid Jurado RN - 03/30/2017 9:53 AM EST General Anesthesia Discharge Instructions Go home and rest. You may be sleepy for several hours. Take it easy as sudden position changes may cause nausea and/or dizziness. Use caution on stairs. Do not smoke if you are alone. Follow a light to regular diet as tolerated today. If nausea occurs, start with clear liquids, and progress slowly to a regular diet. Do not drive, operate machinery, drink alcoholic beverages or make any legal decisions after having general anesthesia. The medications given change your reaction time and alter your judgement. IV site -- slight redness is normal, you can use warm compresses. If tenderness and redness increases or foul drainage occurs, please contact your M.D. Patients who have had endotracheal tubes/LMA (tubes used by the anesthesia staff to ensure a safe airway during your operation) may have a sore throat. This is normal and cold liquids or soothing lozengers will help ease this discomfort. Narcotic pain medications can cause constipation, please ask the surgeons office what they recommendfor prevention of this. Some non-pharmaceutical means of constipation prevention include increasing intake of fluids, eating more fruits and vegetables as well as fruit juices. If you are uncomfortable and/or unable to urinate within 8 hours of discharge and it is before 5 pm,call your physician. If it is after 5pm go to the closest emergency room or call the hospital grinder set up operator at [phone] and ask for physician community recreation programmer covering for your physician. Questions or problems after 5pm or on a weekend: Call the [facility] grinder set up operator at and ask for the physician community recreation programmer covering for your doctor. Patient Iris Pedro MD - 03/30/2017 1:54 PM EST Instructions following Breast Surgery What to Expect Following Surgery: Swelling and/or bruising under and around the incision is normal. It is usually greatest on the second or third day following surgery. If swelling continue or becomes hard with worse pain, call to discuss your symptoms. Your sutures are dissolvable. Your scar will be most visible for 1-2 months following your operation and will gradually fade. As it heals, a scar looks more pink or red than the skin around it. You may feel a ???healing ridge?? directly under the incision. This is normal and will goaway when healing is complete. The skin above and below your incision will feel numb. This will improve over several months but some patients may have long-term decrease in sensation over these areas. Incision Care: Keep dressing on your incision for the next 2 days, then you may remove dressing/surgibra and leave incision open to air. If there are pieces of tape directly on the skin (steri-strips), please leave them on until they fall off on their own. You may trim them back as they peel up, or just remove them after 2 weeks. Or youmay have surgical glue on your incision which has a purplish hue. Once dressing is removed in 2 days [...] as these may impair early wound healing. Diet & Activity: No restrictions in your diet are necessary. Activity as tolerated by your comfort level. NO repetitive movements with left arm for one week. You may return to work in 3-5 days or sooner depending on your recovery. NO DRIVING for at least 8 hours following any dose of an opioid pain medication if one was prescribed for you. Pain Management: Take acetaminophen (Tylenol) 1000mg every 8 hours for the first 3-5 days following surgery to help minimize pain. You may also use NSAIDS like ibuprofen (motrin, advil), naproxen (Naprosyn, Aleve). You may apply ice or cold packs to the incision for 15-20 minutes several times a day for the first 2-3 days following surgery to help with discomfort Follow-up Appointment: Future Appointments Date Time Provider Department Center 04/13/2017 10:45 AM Rhoda Brumfield APRN [facility] Call Doctor for: Worsening redness or drainage from your incision lasting longer than 5 days following surgery Any foul-smelling drainage from the incision Fevers greater than 101 degrees F Persistent nausea or vomiting (this may be related to opioid pain medications) Phone number for questions: [phone] before 5 PM weekdays [phone] after 5 PM and on weekends/holidays documented in this encounter Medications at Time of Discharge Medication Sig Dispensed Refills Start Date End Date aspirin 81 mg EC tablet Take 81 mg by mouth 0 daily. buPROPion (WELLBUTRIN SR Take by mouth. 0 03/16/2018 OR ZYBAN) 150 mg Tablet Sustained Release 12 hr fish oil-omega-3 fatty Take 2 g by mouth 0 03/16/2018 acids 1,000 mg Capsule daily. ibuprofen (ADVIL;MOTRIN) Take 200 mg by 0 03/16/2018 200 mg Tablet mouth every 6 hours as needed for Pain. magnesium 250 mg Tablet Take by mouth. 0 03/16/2018 amoxicillin-clavulanate take 1 tablet by 0 201704/20/2017 (AUGMENTIN) 500-125 mg mouth twice a day Tablet escitalopram (LEXAPRO) 10 0 12/26/2016 03/16/2018 mg Tablet levothyroxine (SYNTHROID) Take 75 mcg by 0 03/16/2018 75 mcg Tablet mouth daily. Cholecalciferol, Vitamin Take by mouth. 0 03/16/2018 D3, 2,000 unit Capsule amitriptyline (ELAVIL) 10 30mg, PO, QHS 0 011 03/16/2018 mg tablet documented as of this encounter H&P Notes Iris Macdonald MD - 03/30/2017 12:24 PM EST Surgery Interval H&P ID: Cecilia Marx is a 62 y.o. female with a history of 0.8cm spiculated mass of LEFT breast that biopsy showed intraductal papilloma but was incompletely sampled who is here for left breast partial mastectomy with needle localization. No changes in health since her last clinic visit. Patient Vitals for the past 24 hrs: BP Temp Temp src Pulse Resp SpO2 Height Weight 03/30/17 0957 143/89 36.9 ??C (98.4 ??F) Temporal 86 18 98 % 161.3 cm (5' 3.5) 77.1 kg (170 lb) NAD, A&O Regular rate Unlabored on RA Soft, NTND Well perfused extremities A/P: Cecilia Marx is a 62 y.o. female who presents for the reasons listed above. Procedure and risks have been explained to the patient and all questions were answered. Informed consent has been obtained. Pt is ready for the OR. Iris Macdonald MD documented in this encounter Miscellaneous Notes Op Note - Savana Zepeda MD - 03/30/2017 1:48 PM EST [facility] [place] Patient Name: Cecilia Marx : [id number] MR#: [id number] Case Date: 03/30/2017 Surgeon: Surgeon(s) and Role: * Savana Zepeda MD - Primary * Iris Macdonald MD Preoperative diagnosis: LEFT BREAST COMPLEX SCLEROSING LESION Postoperative diagnosis: LEFT BREAST COMPLEX SCLEROSING LESION Procedure(s) (LRB): EXCISION LESION, BREAST W/ PREOP.MARKER (NEEDLE LOC.) (WRVU 6.69) (Left) MODIFIER WITH NEEDLE LOC., LESION #1 (Left) Anesthesia: MAC Estimated Blood Loss: 20cc Specimens removed during surgery: Order Name Source Comment Collection Info Order Time SPECIMEN TO PATHOLOGY LEFT BREAST COMPLEX SCLEROSING LESION, LEFT BREAST COMPLEX SCLEROSING LESION Left Breast Lesion Other (enter in comments) Yes 03/30/2017 1:24 PM Time removed from patient: 1:22 PM Drains: Surgical Closure: Primary Closure - closure of ALL tissue levels during the original surgery regardless of wires, wickes, drains, or other devices extruding through the incision Disposition: aroused from sedation, and taken to the recovery room in a stable condition Condition: doing well without problems (Please see the Surgical Encounter Summary for any Implant and Specimen details pertinent to this patient.) Operative Indications: Cecilia Marx is a 61 y.o. 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 Plan for wide excision with needle localization. I explained the implications, indications and alternatives to the proposed treatment plan as well as the risks, including infection, bleeding/hematoma, need for additional surgery, seroma. Consent was signed. Operative Procedure: Cecilia Marx was admitted through Same-Day Surgery. She was brought up to Radiology where wire localization was performed in the left breast. She was then brought to the Operating Room and laid supine on the operating table. The correct site and allergies were reviewed with the patient prior to sedation. Sedation was administered. The left breast was prepped and draped in sterile fashion. Time-out confirmed the patient's identity, the correct surgical site, and the administration of prophylactic antibiotics. Once this had been confirmed, attention was turned to the left breast. Lidocaine 1% and Marcaine 0.5% mixed 1:1 was injected into the area and an incision was made at 12oclock radially. The wire was brought into the wound and a core of tissue circumferential was widelyexcised. The wire had fallen out of the specimen while removing it from the breast. The tissue was inked on the anatomic margins and sent to Radiology where the lesion and clip were confirmed to be in the surgical specimen. The wound was irrigated and hemostasis was achieved with electrocautery. Additional Lidocaine 1% and Marcaine 0.5% mixed 1:1 was injected into the surrounding tissue. The wound was closed in multiple layers: 3-0 vicryl interrupted to reconstruct the form of the breast tissue, followed by 3-0 vicryl deep dermal sutures followed by 4-0 running monocryl. The surgical areas were cleaned and dried. Surgical glue was applied to the wounds and allowed to dry. A sterile compressive dressing was applied. All counts reported to me as correct at the end of thecase. Infection Bundle used? N/A Attestation: Case Date: 03/30/2017 I was present and I participated during the entire procedure (does not need to include opening and closing). SAVANA ZEPEDA MD 03/30/2017 Brief Op Note - Savana Zepeda MD - 03/30/2017 1:46 PM EST Brief Operative Note Patient Name: Cecilia Marx : [id number] MR#: [id number] Case Date: 03/30/2017 Surgeon: Surgeon(s) and Role: * Savana Zepeda MD - Primary * Iris Macdonald MD Preoperative diagnosis: LEFT BREAST COMPLEX SCLEROSING LESION Postoperative diagnosis: LEFT BREAST COMPLEX SCLEROSING LESION Procedure(s) (LRB): EXCISION LESION, BREAST W/ PREOP.MARKER (NEEDLE LOC.) (WRVU 6.69) (Left) MODIFIER WITH NEEDLE LOC., LESION #1 (Left) Anesthesia: MAC Findings: left breast mammo specimen with clip and adequate margins. Complications: none Intake: 950cc Output: Estimated Blood Loss: 20cc Drains: NA Specimens removed during surgery: Order Name Source Comment Collection Info Order Time SPECIMEN TO PATHOLOGY LEFT BREAST COMPLEX SCLEROSING LESION, LEFT BREAST COMPLEX SCLEROSING LESION Left Breast Lesion Other (enter in comments) Yes 03/30/2017 1:24 PM Time removed from patient: 1:22 PM Disposition: awakened from anesthesia, extubated and taken to the recovery room in a stable condition, having suffered no apparent untoward event. Condition: doing well without problems Attestation: Case Date: 03/30/2017 I was present and I participated during the entire procedure (does not need to include opening and closing). (Please see the Surgical Encounter Summary for any Implant and Specimen details pertinent to this patient.) documented in this encounter Plan of Treatment Not on filedocumented as of this encounter Procedures Procedure Name Priority Date/Time Associated Diagnosis Comme nts SPECIMEN TO Routine 03/30/2017 1:24 PM Results f or this PATHOLOGY EST procedure are i n the results section. SURGICAL PATHOLOGY Routine 03/30/2017 1:22 PM Res ults for this REPORT EST procedure are i n the results section. MODIFIER WITH 03/30/2017 12:45 PM LEFT BREAST COMPLEX NEEDLE LOC., LESION EST SCLEROSING LESION #1 EXCISION LESION, 03/30/2017 12:45 PM LEFT BREAST COMPL EX BREAST W/ EST SCLEROSING LESION PREOP.MARKER (NEEDLE LOC.) (WRVU 6.69) documented in this encounter Results Specimen to Pathology (03/30/2017 1:24 PM EST) Specimen Anatomical Collection Method Collection Time Receive d Time (Source) Location / / Volume Laterality AP Specimen 03/30/2017 1:24 PM 8 2:20 EST PM EST Narrative [facility] - 03/30/2017 2:20 PM EST Specimen requisition ordered. ??Separate Pathology report to follow Resulting Agency Comment Spec In Lab Savana Blue MD PATHOLOGY/CYTOLOGY ORDERABLE S Performing Organization Address City/State/[place] [address] Surgical Pathology Report (03/30/2017 1:22 PM EST) Component Value Ref Test Analysis Performed At [facility] gist Range Method Time Signature Surgical [id number] ? Location: [facility] Report The signing pathologist has (i) examined the relevant preparation(s) for the [facility] specimen(s) and (ii) rendered or confirmed the diagnosis(es) . H[facility] . ?Surgic al Pathology DIAGNOSIS Left breast, excision: 1. Atypical ductal hyperplasia, two foci (see Discussion) 2. Focal atypical lobular hyperplasia 3. Flat epithelial atypia 4. Complex sclerosing lesion 5. Benign sclerosing papillary lesions 6. Columnar cell change and columnar cell hyperplasia 7. Sclerosing adenosis, usual ductal hyperplasia, and cysts 8. Biopsy site changes 9. Calcifications associated with atypical ductal hyperplasia, complex sclerosing lesion, and sclerosing adenosis Electronically signed by: ??Antonio BANGURA, Delon Lewis Verified: ??04/05/2017 ?Pathologist Performed at: ??[place] [place], [place], [place] DISCUSSION Two separate foci of atypica l ductal hyperplasia are seen - one adjacent to the previously biopsied complex sclerosing lesion (tissue slice XIV) and one in tissue slices VII/VIII. ADDITIONAL STUDIES Immunohistochemistry Studies: Formalin-fixed, paraffin-emb edded [...] tests. Block ? Antibody ?Result (Positive /Negative) A2 ? E-cadherin ? Negative in focal A LH A9 ? E-cadherin ? Positive CLINICAL INFORMATION Specimen Submitted: A - Left breast lesion Clinical History: Left breast complex sclerosing lesion Clinical Diagnosis: Same SPECIMEN PROCESSING A - ??Labeled/Fixative: Left breast lesion, fresh. SPECIMEN DESCRIPTION Resection Specimen: Intact, inked and oriented partial mas tectomy specimen. Qty/Size/Weight: Single, 5.2 cm (cranial to caudal) x 3.3 cm (medial to lateral) x 1.7 cm (superficial to deep), 18 grams. Radiograph: The intact wire and clip are in the specimen. . SPECIMEN PROCESSING Specimen Description: Accord ing to the established protocol the ink designations are red (medial), yellow (later al), orange (cranial), green (caudal), black (deep) and blue (superficial). Tissue Sections: The specime n is serially sectioned perpendicular to the long axis from cranial-orange to caudal-green int o XV slices, each averaging 0.35 cm in thickness. LESION Description: Mass. Size: 0.8 x 0.5 x 0.3 cm. Color: Yellow-white. Consistency: Firm. Location: Slice XIII-XIV. Nearest Margin: 0.5 cm to the caudal margin. Other Margins: 0.6 cm to the deep margin, 1.0 cm to the lateral margin, 1.7 cm to the medial margin, 1.8 cm to th e superficial margin, 4.2 cm to the cranial margin. OTHER Parenchyma: Focally hemorrhagic white fibrous ti ssue admixed with soft yellow lobulated adipose tissue. T he entire lesion and entire area of hemorrhagic fibrous tissue is submitted. Wire/Clip: The needle locali zation wire enters the superficial-medial aspect of the specimen, with the tip cranial. The cylinder clip is within slice XII. SECTIONS/PROCESSING: (1) rep resentative perpendicular slice I, orange-cranial margin; (2) financial sales representative slice II; (3) financial sales representative slice IX; (4) financial sales representative slice X; (5) financial sales representative slice XI; (6) financial sales representative slice XII, with cylinder clip; (7) slice XIII, with lesion; (8) slice XIV, with lesion; (9) financial sales representative perpendicular slice XV. (R9) Ischemic Time: 85 minutes ??chinyere Additional sections: (10) re maining slice VIII; (11) slice III; (12) fibrous tissue central slice V; (13-14) bisected slice VII. (R14) chinyere Specimen (Source) Anatomical Collection Method Collection Time Re ceived Time Location / / Volume Laterality 03/30/2017 1:22 PM EST Savana Blue MD PATHOLOGY/CYTOLOGY ORDERABLE S Performing Organization Address City/State/[place] [address] documented in this encounter Visit Diagnoses Not on filedocumented in this encounter Administered Medications Inactive Administered Medications - up to 3 most recent administrations Medication Order MAR Action Action Date Dose Rate Site BUpivacaine (PF) Given 03/30/2017 1:45 PM 3.5 mLs 19- Surgical Site (MARCAINE) 0.5 % (5 EST mg/mL) injection ONCE PRN, Starting on Arpita 03/30/17 at 1304, Until Arpita 03/30/17 at 1702, Intra-Operative (Intra-Procedure), Routine Given 03/30/2017 1:04 PM EST 10 mLs 19- S urgical Site lactated Ringers infusion 1,000 mL New Bag 03/30/2017 1:51 PM EST 1,000 mL, at 100 mL/hr, Intravenous, CONTINUOUS, Starting on Arpita 03/30/17 at 1030, Until Arpita 03/30/17 at 1702, Day of Surgery (Day of Procedure) New Bag 03/30/2017 10:23 AM EST 1,000 mLs 100 mL/hr New Bag 03/30/2017 10:14 AM EST 1,000 mLs 100 mL/hr lidocaine (XYLOCAINE) 10 mg/mL (1 %) inj ection 3 mg 3 mg (0.3 mL), Subcutaneous, ONCE PRN, 1 dose, Startin g on Arpita 03/30/17 at 1002, Until Arpita 03/30/17 at 1702, for discomfort with PIV insertion, Day of Surgery (Day of Procedure), Routine lidocaine (XYLOCAINE) 10 mg/mL Given 03/30/2017 1:45 PM 3.5 mLs 19- Surgical Site (1 %) injection EST ONCE PRN, Starting on Arpita 03/30/17 at 1304, Until Arpita 03/30/17 at 1702, Intra-Operative (Intra-Procedure), Routine Given 03/30/2017 1:04 PM EST 10 mLs 19- S urgical Site sodium chloride 0.9 % flush 5-20 mL 5-20 mL, Intravenous, EVERY 1 MIN PRN, S tarting on Arpita 03/30/17 at 1002, Until Arpita 03/30/17 at 1702, flush, Flush pertains to all indwelling lines. Flush per protocol found in the job aid using the link provided on this m edication record., Day of Surgery (Day of Procedure), Routine documented in this encounter Active and Recently Administered Medications Times are shown in EST. Scheduled Medication Order 03/28/2017 03/29/2017 03/30/2017 ceFAZolin (ANCEF) 2g in dextrose 5% 100 mL (COMPLETED) 1246 (Given - Provider: Chapis Santoro CRNA) 2 g, Intravenous, INSPECTOR PAWNSHOP DETAIL TO O.R., 1 dos e, Arpita 03/30/17 at 1300, Administer over 30 Minutes, Indication for (Active or Suspected): Prophylaxis Continuous Medication Order 03/28/2017 03/29/2017 03/30/2017 lactated Ringers infusion 1,000 mL 1014 (New Bag - Provider: Vahid Jurado RN)1023 (New Bag - Provider: Vahid Jurado RN)1306 (Anesthesia Volume Adjustment - Provider: Chapis Santoro CRNA)1351 (New Bag - Provider: Chapis Santoro CRNA) 1,000 mL, at 100 mL/hr, Intravenous, CON TINUOUS, Starting Arpita 28/18 at 1030, Until Arpita 28/18 at 1702, Day of Surgery (Day of Procedure) PRN Medication Order 03/28/2017 03/29/2017 03/30/2017 BUpivacaine (PF) (MARCAINE) 0.5 % (5 mg/mL) injection (CANCELED) 1304 (Given - Provider: Savana Blue MD - Comment: 1% lidocaine mixed 1:1 with 0.5% bupivacaine, Total of 20 ml's given at this time.)1345 (Given - Provider: Savana Blue MD) ONCE PRN, Starting Arpita 2/8/18 at 1304, U ntil Arpita 2/8/18 at 1702, Intra-Operative (Intra-Procedure), Routine lidocaine (XYLOCAINE) 10 mg/mL (1 %) injection 3 mg 3 mg (0.3 mL), Subcutaneous, ONCE PRN, 1 dose, Starting Arpita 218 at 1002, Until Arpita 2/8/18 at 1702, for discomfort with PIV insertion, Day of Surgery (Day of Procedure), Routine lidocaine (XYLOCAINE) 10 mg/mL (1 %) injection (CANCELED) 1304 (Given - Provider: Savana Blue MD - Comment: 1% lidocaine mixed 1:1 with 0.5% bupivacaine, Total of 20 ml's given at this time.)1345 (Given - Provider: Savana Blue MD) ONCE PRN, Starting Arpita 2/8/18 at 1304, U ntil Arpita 2/8/18 at 1702, Intra-Operative (Intra-Procedure), Routine sodium chloride 0.9 % flush 5-20 mL 5-20 mL, Intravenous, EVERY 1 MIN PRN, S tarting Arpita 28/18 at 1002, Until Arpita 03/30/17 at 1702, flush, Flush pertains to all indwelling lines. Flush per protocol found in the job aid using the link provid ed on this medication record., Day of Surgery (Day of Procedure) , Routine documented in this encounter Care Teams Stock Layer Relationship Specialty Start Date End Date Christine Fuentes PA PCP - General Family Medicine 01/24/17 10/08/19 [address] [place] [address] documented as of this encounter
--- OUTSIDE RECORDS SUMMARY | 2021-12-24 14:50 | XMS_ITS | Encounter Summary ---
:1955 Author Organization [facility] [place] [address] Care Team Providers Name Role Phone Spike Sierra MD Primary Care Provider Reason for Visit Reason Comments Radiation Follow-up Encounter Details Date Type Department Care Team Description 12/13/2010 Follow-Up Radiation Oncology at Danielle Fair MD Breast ca (Primary Dx) [address] [place], [place] RADIATION ONCOL OGY [address] [place] [address] [phone] (Wo rk) Social History Tobacco Use Types Packs/Day Years Used Date Never Assessed Sex Assigned at Date Recorded Not on file documented as of this encounter Last Filed Vital Signs Vital Sign Reading Time Taken Comments Blood Pressure 115/73 12/13/2010 1:00 PM EDT Pulse 84 12/13/2010 1:00 PM EDT Temperature - - Respiratory Rate - - Oxygen Saturation 96% 12/13/2010 1:00 PM EDT room ai r Inhaled Oxygen Concentration - - Weight - - Height - - Body Mass Index - - documented in this encounter Progress Notes Ivana Armstrong - 01/28/2011 11:35 AM EST Ema Fair MD - 12/13/2010 1:52 PM EDT Subjective: Patient ID: Cecilia Marx is a 55 y.o. female who is 7 mos s/p xrt. 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 Hormonal tx not rec'd. MRI not rec'd. Sched'd FU today. 11/08/10 B mmg: No evidence for malignancy. Yearly mmg rec'd. Review of Systems: Periodic sense of pulling @ lumpectomy scar when moves a certain way; not intolerable; not interested in PT referral. R breast also smaller. Energy level good. Objective: Physical Exam Constitutional: She is oriented to person, place, and time. She appears well- developed and well-nourished. No distress. HENT: Head: Normocephalic. Eyes: Conjunctivae and EOM are normal. Right eye exhibits no discharge. Left eye exhibits no discharge. No scleral icterus. Pulmonary/Chest: Effort normal and breath sounds normal. No stridor. No respiratory distress. She has no wheezes. She has no rales. She exhibits no tenderness. Right breast exhibits no inverted nipple,no mass, no nipple discharge, no skin change and no tenderness. Left breast exhibits no inverted nipple, no mass, no nipple discharge, no skin change and no tenderness. R breast is smaller than L, but there is no hyperpigmentation/fibrosis of R breast. Abdominal: Soft. She exhibits no distension and no mass. No tenderness. She has no rebound and no guarding. Musculoskeletal: Normal range of motion. She exhibits no edema and no tenderness. Lymphadenopathy: She has no cervical adenopathy. She has no axillary adenopathy. Right: No supraclavicular adenopathy present. Left: No supraclavicular adenopathy present. Neurological: She is alert and oriented to person, place, and time. No cranial nerve deficit. She exhibits normal muscle tone. Coordination normal. Skin: She is not diaphoretic. Psychiatric: She has a normal mood and affect. Her behavior is normal. Judgment and thought content normal. Assessment and Plan: MILEY. FU 6 mos. No problem-specific visit notes found for this encounter. documented in this encounter Plan of Treatment Not on filedocumented as of this encounter Visit Diagnoses Diagnosis Breast CA - Primary Malignant neoplasm of breast (female), u nspecified site documented in this encounter Care Teams Director Of Women'S Services Relationship Specialty Start Date End Date Spike Sierra MD PCP - General 01/12/10 01/23/17 [address] [place] [address] documented as of this encounter
--- OUTSIDE RECORDS SUMMARY | 2021-12-24 14:50 | XMS_ITS | Encounter Summary ---
:1955 [place] [address] Care Team Providers Name Role Phone Spike Sierra MD Primary Care Provider Encounter Details Date Type Department Care Team Description 03/09/2010 [facility] [address] RADIATION ONCOLOGY [place], [place] [id number] [phone] Social History Tobacco Use Types Packs/Day Years Used Date Never Assessed Sex Assigned at Date Recorded Not on file documented as of this encounter Plan of Treatment Not on filedocumented as of this encounter Visit Diagnoses Not on filedocumented in this encounter Care Teams Portable Trackman Relationship Specialty Start Date End Date Spike Sierra MD PCP - General 01/12/10 01/23/17 [address] [place] [address] documented as of this encounter
--- OUTSIDE RECORDS SUMMARY | 2021-12-24 14:50 | XMS_ITS | Encounter Summary ---
:1955 Author Organization [facility] [place] [address] Care Team Providers Name Role Phone Unavailable Primary Care Provider Unavailable Encounter Details Date Type Department Care Team Description 01/06/2010 Procedure visit [place] [address] Social History Tobacco Use Types Packs/Day Years Used Date Never Assessed Sex Assigned at Date Recorded Not on file documented as of this encounter Plan of Treatment Not on filedocumented as of this encounter Visit Diagnoses Not on filedocumented in this encounter
--- OUTSIDE RECORDS SUMMARY | 2021-12-24 14:50 | XMS_ITS | Encounter Summary ---
:1955 Author Organization [facility] [address] Care Team Providers Name Role Phone Spike Sierra MD Primary Care Provider Encounter Details Date Type Department Care Team Description 01/17/2014 Unscheduled Encounter Hematology Oncology Denzel Payne Dietary surveillance at [facility] MUMTAZ Marrero and counseling [address] [place] [phone] Social History Tobacco Use Types Packs/Day Years Used Date Former Smoker Quit: 10/19/19 12 Sex Assigned at Date Recorded Not on file documented as of this encounter Progress Notes Denzel Payne RD - 01/17/2014 1:00 PM EST [facility] Dietitian Follow Up Assessment Seen By: Elida Payne MS, RD, HEAD GREENSKEEPER, LD Reason for visit: Wanting to lose [...] 12/26/2013 Weight 77.565 kg Temp 97.9 Wt: Weighing herself at home. Went from 173 [...] have eggs and toast Noon: can of progresso lite soup and pickels Pm: lean cuisine [...] Nutrition Diagnosis: Weighing herself at home. Lost 7 lbs this week. Stopped drinking wine at night, increased water intake, and physical activity (now up to 17 min/treadmill). Logging calories, likes [employer] and [employer] and the meal suggestions, but didn't feel she could follow it to the T. She likes the suggestions, but wants more of the control (i.e. Menu says salmon, but she wants left overs We discussed the concept of food as [...] levels, if suboptimal in 3-6 mos. The [facility] series from [facility] September 2008 showed a lower risk of breast cancer recurrence in women with 25-hydroxy Vitamin D levels of 35 ng/mL or higher Nutrition Intervention: ? Decrease caloric needs: reviewed small changes in daily diet to reduce intake ? Modify diet consistency: ? Increase frequency of meals and snacks ? Need for supplements Nutrition Goals: -- Up water intake to 4 glasses/d. -- Snacks: will eat fruit. This is hard for her, but she will do it. Educational Handouts provided: -- Healthier substitutions: A Dietitian's Guide -- Healthy holiday substitutions chart -- smart snacking for Adults and Teens (AND) -- Stop Stress Eating Other Recommendations: Monitoring and Evaluation: Will follow up with Mrs. Marx in one week (s) to re-evaluate. documented in this encounter Plan of Treatment Not on filedocumented as of this encounter Visit Diagnoses Diagnosis Dietary surveillance and counseling documented in this encounter Care Teams Train Conductor Relationship Specialty Start Date End Date Spike Sierra MD PCP - General 01/12/10 01/23/17 [address] [place] [address] documented as of this encounter
--- OUTSIDE RECORDS SUMMARY | 2021-12-24 14:50 | XMS_ITS | Encounter Summary ---
:1955 Author Organization [facility] [place] [address] Care Team Providers Name Role Phone Spike Sierra MD Primary Care Provider Reason for Visit Reason Comments Radiation Follow-up breast cancer Encounter Details Date Type Department Care Team Description 12/13/2012 Follow-Up Radiation Oncology at Molly Waldrop APRN Breast cancer (Primary [address] Dx) [address] [place] [address] [place] [phone] (Wo rk) Social History Tobacco Use Types Packs/Day Years Used Date Former Smoker Quit: 10/19/19 12 Sex Assigned at Date Recorded Not on file documented as of this encounter Last Filed Vital Signs Vital Sign Reading Time Taken Comments Blood Pressure 125/65 12/13/2012 1:57 PM EDT Pulse 78 12/13/2012 1:57 PM EDT Temperature 36.8 ??C (98.2 ??F) 12/13/2012 1:57 PM EDT Respiratory Rate 18 12/13/2012 1:57 PM EDT Oxygen Saturation 99% 12/13/2012 1:57 PM EDT Inhaled Oxygen Concentration - - Weight 62.6 kg (138 lb) 12/13/2012 1:57 PM EDT Height - - Body Mass Index - - documented in this encounter Progress Notes Yolette Waldrop APRN - 12/13/2012 2:17 PM EDT Subjective: Patient ID: Cecilia Marx is a 57 y.o. female who was treated with lumpectomy followed by radiationtherapy for breast cancer. She is in clinic for scheduled follow up. HPI At age 54 y/o Ms Marx underwent B screening mmg 12/03/09: A couple of new microcalcs associated w/a group of otherwise largely unchanged microcalcs in UOQ R breast. Grouping of microcalcs now numbers6 or 7 & contains some conor shaped microcalcs. 12/04/09 spot mag views R breast & R breast U/S: Spot mag views show increase in number of several calcs. Coarse calcs again noted. Also an area of generalized increased density in UOQ R breast in area of calcs. U/S shows no mass. Cyst identified by U/S. 12/15/[address] Forrester & he referred her to [facility] for stereotactic bx. 01/06/10 limited U/S R breast: FINDINGS: Ultrasound of the upper, outer aspect of the Right breast showed clusters of multiple cysts ranging in size from 2mm to 7mm, a couple of which contained calcifications. There was no solid mass seen. Review of the patient's mammogram shows that many of these calcifications are very coarse and clearly dystrophic and as I wished to obtain sampling of the more fine and pleomorphic microcalcifications I elected to perform a stereotactic biopsy as detailed in a separate note. 01/06/10 vacuum assisted stereotactic bx R breast: of calcifications in the upper, outer quadrant [id number], 8.5cm from the nipple. Size: 37mm. The specimen was X-rayed. The calcifications are present on specimen X-ray Path: Sclerosing papillary lesion. ADH. 01/28/10 excision of mass using wire localization. 01/28/10 specimen xray showed calcs & bx clip to be in specimen. Path: DCIS, 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 Dr. Forrester has spoken w/Dr. Stack,who does not rec hormonal tx. Dr. Forrester has spoken w/Dr. Anita Valentine, who does not rec MRI. 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 1st child @ age 29 yrs. Menopause age 37 yrs. Was on HRT for several yrs, & has been off of it for several yrs. Dyspareunia. Migraines. Hypothyroidism. Xrt to R breast after lumpectomy for DCIS, ERPR+. STAGE: 0, pTis cN0 GRADE: low TREATMENT STARTED: 03/17/10 TREATMENT COMPLETED: 05/04/10 TREATMENT: The total maximum dose was 6040 cGy in 33 fractions to tumor cavity. 5040 cGy in 28 fractions to R breast. Hormonal tx not rec'd. Surveillance: ----11/21/11 B mmg, done @ [facility], requested by Dr. Forrester, whom she recently saw in . She reportsthat the mmg was ok. Patient Active Problem List Diagnosis Code ??? DCIS (ductal carcinoma in situ) of breast 233.0 Past Medical History Diagnosis Date ??? Breast cancer ??? Headache migraines ??? Hypothyroidism Allergies Allergen Reactions ??? Nitrofurantoin Monohyd/M-Cryst Rash,( Macrobid) Current Outpatient Prescriptions on File Prior to Visit Medication Sig Dispense Refill ??? amitriptyline (ELAVIL) 10 mg tablet 30mg, PO, QHS ??? levothyroxine (SYNTHROID) 100 mcg tablet ??? escitalopram (LEXAPRO) 10 mg tablet ??? alendronate (FOSAMAX) 70 mg tablet Advance Directive: Not on file. Interim History: Mrs Marx reports that she is doing well at this time. She has no complaints.She denies any issues with her breast. She has no lymphedema, no restriction in ROM, no tenderness, no pain, no shortness of breath, no chest tightness, no persistent headaches or skeletal pain. 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 She doesnot have other regular exercise. She wants to limit the number of appointments that she has due to her insurance limitations and her high deductible. Review of Systems Constitutional: Negative. Negative for fever, chills, diaphoresis, activity change, appetite change,fatigue and unexpected weight change. HENT: Negative. Eyes: Negative. Respiratory: Negative. Cardiovascular: Negative. Gastrointestinal: Negative. Genitourinary: Negative. Musculoskeletal: Negative. Skin: Negative. Neurological: Negative. Hematological: Negative. Psychiatric/Behavioral: Negative. Oncology Vitals 12/13/2012 Weight 62.596 kg Temp 98.2 Temp src 1 Pulse 78 Heart Rate Source Left;NIBP Resp 18 BP 125/65 BP Location Left arm Patient Position Sitting SpO2 99 Pain Level 0 Karnofsky Score Physical Exam Constitutional: She is oriented to person, place, and time. She appears well- developed and well-nourished. HENT: Head: Normocephalic and atraumatic. Eyes: Conjunctivae normal and EOM are normal. No scleral icterus. Neck: Normal range of motion. Neck supple. Cardiovascular: Normal rate, regular rhythm and normal heart sounds. Exam reveals no gallop and no friction rub. No murmur heard. Pulmonary/Chest: Effort normal and breath sounds normal. No respiratory distress. She has no wheezes. She has no rales. She exhibits no tenderness. Abdominal: Soft. Bowel sounds are normal. Musculoskeletal: Normal range of motion. She exhibits no edema and no tenderness. Lymphadenopathy: Head (right side): No submental, no submandibular, no tonsillar, no preauricular, no posterior auricular and no occipital adenopathy present. Head (left side): No submental, no submandibular, no tonsillar, no preauricular, no posterior auricular and no occipital adenopathy present. She has no cervical adenopathy. She has no axillary adenopathy. Right: No supraclavicular adenopathy present. Left: No supraclavicular adenopathy present. Neurological: She is alert and oriented to person, place, and time. She exhibits normal muscle tone.Coordination normal. Skin: Skin is warm and dry. No rash noted. No erythema. No pallor. Psychiatric: She has a normal mood and affect. Her behavior is normal. Judgment and thought content normal. Breast___X_ no nipple discharge, no dryness, no erythema, no lymphedema, no tendernss Treated site: __X__Right or ____Left, __X__Breast or Chest wall Telangectasias: __X__None, ____Few; Moderate; Many and confluent Hypopigmentation: __X__None; ____Slight or localized; ____Marked or generalized Hyperpigmentation: __X__None; ____Slight or localized; ____Marked or generalized Fibrosis: _X____None; Increased density; ____Marked increased density + retraction; ____ Very marked Dry skin: __X__None; ____Asymptomatic; symptomatic; Interferes with ADL Cosmetic Result: Excellent; _X____Good;____ Fair; ____Poor Assessment Plan: Ms Marx was treated for right breast cancer. She reports she is doing well. She had a normal mammogram at [facility] (we will request a copy). We reviewed signs and symptoms of late effect of radiation therapy including tissue fibrosis, need to do regular stretching exercises, need to report edema to breast or arm and any persistent symptoms including persistent cough, headache, skeletal pain, skin changes. We discussed the survivor benefitsof regular exercise and weight control. We will see her again in one year. She is to call if she hasany questions or concerns in the interim. We discussed the benefit of vitamin D and she has not had it checked. Next mammogram in November 2013. She will be seeing Dr Forrester in the interim. Addendum: serum vitamin D is 27. Instructed patient to start vitamin D 3 at 2000 IU a day. documented in this encounter Procedure Notes Provider, Scanning - 12/20/2012 6:04 AM EDTAssociated Order(s): SCAN DOC: LAB documented in this encounter Plan of Treatment Not on filedocumented as of this encounter Procedures Procedure Name Priority Date/Time Associated Diagnosis Comme nts LAB SCAN 12/20/2012 6:04 AM Results f or this EDT procedure are i n the results section . documented in this encounter Results SCAN DOC: LAB (12/20/2012 6:04 AM EDT) Narrative 12/20/2012 6:04 AM EDT Procedure Note Provider, Scanning - 12/20/2012 6:04 AM EDT Scanning Provider MEDIA MGR SCAN EXT ORDR/RSLT documented in this encounter Visit Diagnoses Diagnosis Breast cancer - Primary Malignant neoplasm of breast (female), u nspecified site documented in this encounter Care Teams Manager Material Relationship Specialty Start Date End Date Spike Sierra MD PCP - General 01/12/10 01/23/17 [address] [place] [address] documented as of this encounter
--- OUTSIDE RECORDS SUMMARY | 2021-12-24 14:50 | XMS_ITS | Encounter Summary ---
:1955 Author Organization [facility] [place] [address] Care Team Providers Name Role Phone Spike Sierra MD Primary Care Provider Encounter Details Date Type Department Care Team Description 03/09/2010 Initial consult Hematology Oncology at [address] [phone] Social History Tobacco Use Types Packs/Day Years Used Date Never Assessed Sex Assigned at Date Recorded Not on file documented as of this encounter Plan of Treatment Not on filedocumented as of this encounter Visit Diagnoses Not on filedocumented in this encounter Care Teams Hand Worker Relationship Specialty Start Date End Date Spike Sierra MD PCP - General 01/12/10 01/23/17 [address] [place] [address] documented as of this encounter
--- OUTSIDE RECORDS SUMMARY | 2021-12-24 14:50 | XMS_ITS | Encounter Summary ---
:1955 Author Organization [facility] [place] [address] Care Team Providers Name Role Phone Spike Sierra MD Primary Care Provider Encounter Details Date Type Department Care Team Description 04/14/2010 [facility] [address] RADIATION ONCOLOGY [place], [place] [phone] [place] [address] [phone] (Wo rk) Social History Tobacco Use Types Packs/Day Years Used Date Never Assessed Sex Assigned at Date Recorded Not on file documented as of this encounter Plan of Treatment Not on filedocumented as of this encounter Visit Diagnoses Not on filedocumented in this encounter Care Teams Medical Review Specialist Relationship Specialty Start Date End Date Spike Sierra MD PCP - General 01/12/10 01/23/17 [address] [place] [address] documented as of this encounter
--- OUTSIDE RECORDS SUMMARY | 2021-12-24 14:50 | XMS_ITS | Encounter Summary ---
:1955 Author Organization [facility] [place] [address] Care Team Providers Name Role Phone Spike Sierra MD Primary Care Provider Encounter Details Date Type Department Care Team Description 01/02/2014 Telephone Radiation Oncology at Yolette Pritchard APRN [address] [place] [address] [place] [address] [phone] (Wo rk) Social History Tobacco Use Types Packs/Day Years Used Date Former Smoker Quit: 10/19/19 12 Sex Assigned at Date Recorded Not on file documented as of this encounter Miscellaneous Notes Telephone Encounter - Yolette Waldrop APRN - 01/02/2014 11:53 AM EST Call to patient. He serum vitamin D level was 27. Goal is 35-45. We will increase her vitamin D3 to 3000 IU a day. documented in this encounter Plan of Treatment Not on filedocumented as of this encounter Visit Diagnoses Not on filedocumented in this encounter Care Teams Dub Room Engineer Relationship Specialty Start Date End Date Spike Sierra MD PCP - General 01/12/10 01/23/17 [address] [place], [place] [address] (work) documented as of this encounter
--- OUTSIDE RECORDS SUMMARY | 2021-12-24 14:50 | XMS_ITS | Encounter Summary ---
:1955 Author Organization [facility] [place] [address] Care Team Providers Name Role Phone Christine [...] Expiration Date Visits Requ ested Visits Authorized [id number] 1 1 Encounter Details Date Type Department Care Team Description 03/30/2017 Hospital Encounter Outpatient Surgery Aide Zepeda V, [place] Ashley Shaw MD [place], [place] [id number] [place] [phone] Social History Tobacco Use Types Packs/Day Years [...] Sign Reading Time Taken Comments Blood Pressure 128/72 03/30/2017 2:46 PM EST Pulse 79 03/30/2017 2:46 PM EST Temperature 36.8 ??C (98.2 ??F) 03/30/2017 2:04 PM EST Respiratory Rate 16 03/30/2017 2:46 PM EST Oxygen Saturation 94% 03/30/2017 2:46 PM EST Inhaled Oxygen Concentration - - [...] closest emergency room or call the hospital semiautomatic stitcher operator at [phone] and ask for physician instrumentation and controls technician covering for your physician. Questions or problems after 5pm or on a weekend: Call the [facility] semiautomatic stitcher operator at and ask for the physician instrumentation and controls technician covering for your doctor. Patient Iris Pedro [...] 04/13/2017 10:45 AM Rhoda Brumfield APRN [facility] Call Doctor for: Worsening redness or drainage from your incision lasting longer than 5 days following surgery Any foul-smelling drainage from the incision Fevers greater than 101 degrees F Persistent nausea or vomiting (this may be related to opioid pain medications) Phone number for questions: [phone] before 5 PM weekdays [phone] after 5 PM and on weekends/holidays documented [...] Zepeda MD - 03/30/2017 1:48 PM EST [facility] [place] Note Patient Name: Cecilia Marx : [id number] MR#: [id number] Case Date: 03/30/2017 Surgeon: Surgeon(s) and Role: [...] Operative Note Patient Name: Cecilia Marx : [id number] MR#: [id number] Case Date: 03/30/2017 Surgeon: Surgeon(s) and Role: [...] PM 8 2:20 EST PM EST Narrative [facility] - 03/30/2017 2:20 PM EST Specimen requisition ordered. ??Separate Pathology report to follow Resulting Agency Comment Spec In Lab Savana Blue MD PATHOLOGY/CYTOLOGY ORDERABLE S Performing Organization Address City/State/[place] [address] Surgical Pathology Report (03/30/2017 1:22 PM EST) Component Value Ref Test Analysis Performed At [facility] Range Method Time Signature Surgical [id number] ? Location: [facility] Report The signing pathologist has (i) examined the relevant preparation(s) for the [facility] specimen(s) and (ii) rendered or confirmed the [...] sclerosing adenosis Electronically signed by: ??Antonio BANGURA, Dleon Lewis Verified: ??04/05/2017 ?Pathologist Performed at: ??-[facility] [place]. [place], [place], [place] DISCUSSION Two separate foci of atypica [...] resentative perpendicular slice I, orange-cranial margin; (2) utility sales representative slice II; (3) utility sales representative slice IX; (4) utility sales representative slice X; (5) utility sales representative slice XI; (6) utility sales representative slice XII, with cylinder clip; (7) slice XIII, with lesion; (8) slice XIV, with lesion; (9) utility sales representative perpendicular slice XV. (R9) Ischemic [...] Organization Address City/State/[place] [address] documented in this encounter Visit Diagnoses Not on filedocumented in this encounter Administered Medications Inactive Administered Medications - up to 3 most recent administrations Medication Order MAR Action Action Date Dose Rate Site lactated Ringers infusion 1,000 mL New Bag 03/30/2017 1:51 PM EST 1,000 mL, at 100 mL/hr, Intravenous, CONTINUOUS, Starting on Arpita 03/30/17 at 1030, Until Arpita 18 at 1702, Day of Surgery (Day of Procedure) New Bag 03/30/2017 10:23 AM EST 1,000 mLs 100 mL/hr New Bag 03/30/2017 10:14 AM EST 1,000 mLs 100 mL/hr lidocaine (XYLOCAINE) 10 mg/mL (1 %) inj ection 3 mg 3 mg (0.3 mL), Subcutaneous, ONCE PRN, 1 dose, Startin g on Arpita 03/30/17 at 1002, Until Arpita 218 at 1702, for discomfort with PIV insertion, Day of Surgery (Day of Procedure), Routine sodium chloride 0.9 % flush 5-20 mL 5-20 mL, Intravenous, EVERY 1 MIN PRN, S tarting on Arpita 03/30/17 at 1002, Until Arpita 218 at 1702, flush, Flush pertains to all [...] Provider: Chapis Santoro CRNA) 2 g, Intravenous, ROTATING FIELD ASSEMBLER TO O.R., 1 dos e, Arpita 03/30/17 [...] 100 mL/hr, Intravenous, CON TINUOUS, Starting Arpita 03/30/17 at 1030, Until Arpita 18 at 1702, Day of Surgery (Day of Procedure) PRN Medication Order 03/28/2017 03/29/2017 03/30/2017 BUpivacaine (PF) (MARCAINE) 0.5 % (5 mg/mL) injection (CANCELED) 1304 (Given - Provider: Savana Blue MD - Comment: 1% lidocaine mixed 1:1 with 0.5% bupivacaine, Total of 20 ml's given at this time.)1345 (Given - Provider: Savana Blue MD) ONCE PRN, Starting Arpita 218 at 1304, U ntil Arpita 2//18 at 1702, Intra-Operative (Intra-Procedure), Routine lidocaine (XYLOCAINE) 10 mg/mL (1 %) injection 3 mg 3 mg (0.3 mL), Subcutaneous, ONCE PRN, 1 dose, Starting Arpita 03/30/17 at 1002, Until Arpita 218 at 1702, for discomfort with PIV insertion, Day of Surgery (Day of Procedure), Routine lidocaine (XYLOCAINE) 10 mg/mL (1 %) injection (CANCELED) 1304 (Given - Provider: Savana Blue MD - Comment: 1% lidocaine mixed 1:1 with 0.5% bupivacaine, Total of 20 ml's given at this time.)1345 (Given - Provider: Savana Blue MD) ONCE PRN, Starting Arpita 18 at 1304, U ntil Arpita 218 at 1702, Intra-Operative (Intra-Procedure), Routine sodium chloride 0.9 % flush 5-20 mL 5-20 mL, Intravenous, EVERY 1 MIN PRN, S tarting Arpita 18 at 1002, Until Arpita 18 at 1702, flush, Flush pertains to all indwelling lines. Flush per protocol found in the job aid using the link provid ed on this medication record., Day of Surgery (Day of Procedure) , Routine documented in this encounter Care Teams Regional Sales Consultant Relationship Specialty Start Date End Date Christine Fuentes PA PCP - General Family Medicine 01/24/17 10/08/19 [address] [place] [address] documented as of this encounter
--- OUTSIDE RECORDS SUMMARY | 2021-12-24 14:50 | XMS_ITS | Encounter Summary ---
:1955 Author Organization [place] [address] Care Team Providers Name Role Phone Christine Fuentes Primary Care Provider Encounter Details Date Type Department Care Team Description 03/10/2017 Orders Only General Surgery at [facility] Marla Brice V, Breast lesion [facility] [place] [address] [facility] [phone] GENERAL SURGERY [place], [place] [address] (Wo rk) Social History Tobacco Use Types Packs/Day Years Used Date Former Smoker Quit: 10/19/19 12 Sex Assigned at Date Recorded Not on file documented as of this encounter Plan of Treatment Not on filedocumented as of this encounter Results Mammo Specimen (03/30/2017 1:34 PM EST) Anatomical Region Laterality Modality Breast N/A Mammography Specimen (Source) Anatomical Location Collection Method / Collectio n Time Received Time / Laterality Volume Impressions 03/30/2017 1:40 PM EST Positive specimen x-ray as described. Results phoned to the operating surgeon intraoperatively. Narrative 03/30/2017 1:40 PM EST EXAMINATION: Specimen x-ray INDICATION: Intraoperative specimen imag e for adequacy of lesion and/or clip removal TECHNIQUE: A single projection specimen x-ray from the left breast is obtained superimposed on alphanumeric grid COMPARISON: This is correlated with preo perative imaging FINDINGS: The intact wire and clip are i n the specimen. There are no close margins. MD NIGEL Ryder MAMMO ORDERABLES Mammo Needle Localization Left (03/30/2017 9:11 AM EST) Anatomical Region Laterality Modality Breast Left Mammography Specimen (Source) Anatomical Location Collection Method / Collectio n Time Received Time / Laterality Volume Impressions 03/30/2017 9:41 AM EST Status post successful preoperative wire placement for cylinder clip associated with complex sclerosing lesion left sarah st. Preliminary report signed by: Asher donovan at 03/30/2017 9:32 AM I have personally reviewed the image(s) and the residents interpretation and agree with the findings, EVANS Bazan at 03/30/2017 9:41 AM Narrative 03/30/2017 9:41 AM EST Examination: NEEDLE LOCALIZATION OF ??LEFT BREAST Indication: PLEASE NEEDLE LOCALIZE LEFT BREAST SCLEROSING LESION. Technique:Informed consent was confirmed and a timeout procedure was performed per protocol. Using sterile technique and local anesth etic ??(less than 5 cc's of 1% lidocaine) a needle localization of the clip and ma ss ??in the deep central left breast was performed from the cranial approach with mammographic guidance. The wire was deployed. After confirming satisfactory positionin g in orthogonal views the wire was deployed and a final image was obtained. There were no complications. Images were annotated on PACS for the op erating surgeon. Procedural attestation: Resident: Asher Marrero I was present with the resident for the salamanca component(s) of the procedure and otherwise remained immediately available for the duration of the procedure. I attest to having personally viewed the i mages/test and approve the above interpretation. MD NIGEL Ryder MAMMO ORDERABLES documented in this encounter Visit Diagnoses Diagnosis Breast lesion Unspecified breast disorder Breast lesion Unspecified breast disorder Breast lesion Unspecified breast disorder documented in this encounter Care Teams Offset Assistant Press Operator Relationship Specialty Start Date End Date Christine Fuentes PA PCP - General Family Medicine 01/24/17 10/08/19 [address] [place] [address] (work) documented as of this encounter
--- OUTSIDE RECORDS SUMMARY | 2021-12-24 14:50 | XMS_ITS | Encounter Summary ---
:1955 Author Organization [facility] [place] [address] Care Team Providers Name Role Phone Christine Fuentes Primary Care Provider Encounter Details Date Type Department Care Team Description 03/30/2017 Hospital Encounter Mammography at [facility] Marla Brice Breast lesion [facility] [place] [address] GENERAL SURGERY [place], [place] [address] (Wo rk) Social History Tobacco [...] mg tablet documented as of this encounter Progress Notes Asher Marrero, DO - 03/30/2017 7:41 AM EST Pre-procedure note for needle breast [...] PO, QHS, Disp: , Rfl: Anticoagulation status: none stopped on: N/A Imaging reviewed and procedural plan approved by Dr. ASHER MARRERO DO documented in this encounter Plan of Treatment Not on filedocumented as of this encounter Procedures Procedure Name Priority Date/Time Associated Comments Diagnosis MAMMO NEEDLE Routine 03/30/2017 9:11 AM Breast lesion Results for this LOCALIZATION LEFT EST procedure are in the results section. documented in this encounter Results Mammo Needle Localization Left (03/30/2017 9:11 AM [...] i mages/test and approve the above interpretation. Marla Blue MD IMG MAMMO ORDERABLES documented in this encounter Visit Diagnoses Diagnosis Breast lesion Unspecified breast disorder documented in this encounter Administered Medications Inactive Administered Medications - up to 3 most recent administrations Medication Order MAR Action Action Date Dose Rate Site lidocaine (XYLOCAINE) 10 mg/mL (1 Given 03/30/2017 9:04 AM EST 1 0 mg %) injection 10 mg 10 mg, Intradermal, ONCE, 1 dose, On Arpita 03/30/17 at 0915, Routine documented in this encounter Care Teams Inside Sales Account Manager Relationship Specialty Start Date End Date Christine Fuentes PA PCP - General Family Medicine 01/24/17 10/08/19 [address] [place] [address] documented as of this encounter
--- OUTSIDE RECORDS SUMMARY | 2021-12-24 14:50 | XMS_ITS | Encounter Summary ---
:1955 [place] [address] Care Team Providers Name Role Phone Spike Sierra MD Primary Care Provider Encounter Details Date Type Department Care Team Description 11/28/2011 Hospital Encounter Radiology Library Spike Nicolas creening breast at [facility] BMD examination [facility] [address] [place] [phone] RADIOLOGY [phone] [place] [address] Social History Tobacco Use Types Packs/Day Years Used Date Never Assessed Sex Assigned at Date Recorded Not on file documented as of this encounter Medications at Time of Discharge Medication Sig Dispensed Refills Start Date End Date Estradiol (VAGIFEM) 10 Place 10 mcg 0 12/19/2011 mcg vaginal tablet vaginally twice a week. CIS Free Text Med - 0 05/04/201012/13 Aspirin amitriptyline (ELAVIL) 10 30mg, PO, QHS 0 011 03/16/2018 mg tablet levothyroxine (SYNTHROID) 0 05/04/2010 12/26/2013 100 mcg tablet escitalopram (LEXAPRO) 10 0 05/04/2010 03/08/2017 mg tablet SUMAtriptan (IMITREX) 100 0 05/04/2010 12/13/2012 mg tablet alendronate (FOSAMAX) 70 0 05/04/2010 03/08/2017 mg tablet documented as of this encounter Plan of Treatment Not on filedocumented as of this encounter Procedures Procedure Name Priority Date/Time Associated Diagnosis Comme nts FILM LIBRARY Routine 11/28/2011 12:00 AM Screening breast Resu lts for this STORAGE ONLY MAMMO EDT examination procedure are in the results section. documented in this encounter Results Film Library- Storage Only Mammo (11/28/2011 12:00 AM EDT) Specimen (Source) Anatomical Location Collection Method / Collectio n Time Received Time / Laterality Volume Narrative RAD - 01/11/2017 4:30 PM EST This exam is for storage only and is aut o-finalizing. Spike Nicolas MD [facility] FILM LIBRARY ORDERABLES Performing Organization Address City/State/ZIP Code Phon e Number [place], [place] documented in this encounter Visit Diagnoses Diagnosis Screening breast examination (Not by Delores tristan) Other screening breast examination documented in this encounter Care Teams Grade And Center Marker Relationship Specialty Start Date End Date Spike Sierra MD PCP - General 01/12/10 01/23/17 [address] [place] [address] documented as of this encounter
--- OUTSIDE RECORDS SUMMARY | 2021-12-24 14:50 | XMS_ITS | Encounter Summary ---
:1955 Author Organization [facility] [place] [address] Care Team Providers Name Role Phone Spike Sierra MD Primary Care Provider Reason for Referral Consultation (Routine) - Closed Specialty Diagnoses / Procedures Referred By Contact Refer red To Contact Hematology and Oncology Diagnoses Breast cancer, right Yolette Waldrop APRN [facility] [address] RADIATION ONCOLOGY [phone] [place] [address] Referral ID Status Reason Start Date Expiration Visits Visits Date Requested Authorized [id number] Closed Continuity of 12/27/2013 06/25/2014 1 1 Care Reason for Visit Reason Comments Radiation Follow-up breast cancer Encounter Details Date Type Department Care Team Description 12/26/2013 Follow-Up Radiation Oncology at Molly Waldrop APRN Breast cancer, right [address] (Primary Dx) [address] [place] [address] [place] [address] [phone] (Wo rk) Social History Tobacco Use Types Packs/Day Years Used Date Former Smoker Quit: 10/19/19 12 Sex Assigned at Date Recorded Not on file documented as of this encounter Last Filed Vital Signs Vital Sign Reading Time Taken Comments Blood Pressure 124/82 12/26/2013 8:47 AM EST Pulse 87 12/26/2013 8:47 AM EST Temperature 36.6 ??C (97.9 ??F) 12/26/2013 8:47 AM EST Respiratory Rate 18 12/26/2013 8:47 AM EST Oxygen Saturation 96% 12/26/2013 8:47 AM EST Inhaled Oxygen Concentration - - Weight 77.6 kg (171 lb) 12/26/2013 8:47 AM EST Height - - Body Mass Index - - documented in this encounter Patient Instructions Patient InstructionsPaYolette donnelly APRN - 12/26/2013 9:10 AM EST Please go to the lab to get the serum Vitamin D level done and call here after you have it drawn so I can check for results Take vitamin D3 2000 units a day ongoing. Filed Vitals: 12/26/13 0847 BP: 124/82 Pulse: 87 Temp: 36.6 ??C (97.9 ??F) TempSrc: Oral Resp: 18 Weight: 77.565 kg (171 lb) SpO2: 96% documented in this encounter Progress Notes Yolette Waldrop APRN - 12/26/2013 8:27 AM EST Subjective: Patient ID: Cecilia Marx is a 58 y.o. female [...] Dr. Forrester & he referred her to [facility] for stereotactic bx. 01/06/10 limited U/S R [...] of calcifications in the upper, outer quadrant [id number], 8.5cm from the nipple. Size: 37mm. The [...] Valentine, who does not rec MRI. Prior TRACK PATROL history: w/4 miscarriages. 1st child @ age [...] to R breast. Hormonal tx not rec'd. + ca - breast in mo, dx'd @ age 54 yrs. Breast cancer summary BREAST CANCER NOTES 12/26/2013 Method of Cancer Detection abnormal mammogram Date of Diagnostic Biopsy 01/06/2010 --vacuum stereotactic biopsy Local Surgery Lumpectomy 01/28/2010 Radiotherapy Radiotherapy was planned Axillary Management None--you had no lymph nodes removed Histology DCIS--ductal carcinoma in situ Tumor Staging from Staging System [id number] You had stage 0 breast cancer with a good prognosis Size of Primary Malignancy 0.22 cm Grade Low grade Margin Negative--localized breast cancer ER positive [facility] positive Family history Mother with history of breast cancer at age 53 Hormone therapy none Chemotherapy none Radiation therapy Total dose of radiation 60.4 Gy Surveillance: ----11/21/11 B mmg, done @ [facility], requested by Dr. Forrester, whom she [...] to Visit Medication Sig Dispense Refill ??? 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 HENT: Negative. Eyes: Negative. Respiratory: Negative. Negative for cough. Cardiovascular: Negative. Negative for chest pain and leg swelling. Gastrointestinal: Negative. Genitourinary: Negative. Negative for vaginal bleeding. Currently being treated for UTI Taking septra Musculoskeletal: Positive for arthralgias. Negative for back pain. Intermittent arthralgias Skin: Negative. Neurological: Negative. Hematological: Negative. Psychiatric/Behavioral: Negative. Filed Vitals: 12/26/13 0847 BP: 124/82 Pulse: 87 Temp: 36.6 ??C (97.9 ??F) TempSrc: Oral Resp: 18 Weight: 77.565 kg (171 lb) SpO2: 96% KPS: 100 Physical Exam Vitals reviewed. Constitutional: She is oriented to person, place, [...] no dryness, no erythema, no lymphedema, no tenderness Treated site: __X__Right or ____Left, __X__Breast or Chest wall Telangectasias: __X__None, ____Few; Moderate; Many and confluent Hypopigmentation: __X__None; ____Slight or localized; ____Marked or generalized Hyperpigmentation: __X__None; ____Slight or localized; ____Marked or generalized Fibrosis: _X____None; Increased density; ____Marked increased density + retraction; ____ Very marked Dry skin: __X__None; ____Asymptomatic; symptomatic; Interferes with ADL Cosmetic Result: Excellent; _X____Good;____ Fair; ____Poor Assessment Plan: Ms Marx is a very pleasant 58 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 She was treated with adjuvant XRT for total dose of 60.4 Gy completed on 05/04/2010. She reports she is doing well. She had a normal mammogram at [facility] (we will request a copy). We reviewed signs and symptoms of late effect of radiation therapy including tissue fibrosis, need to do regular stretching exercises, need to report edema to breast or arm and any persistent symptoms including persistent cough, headache, skeletal pain, skin changes. We discussed the survivor benefitsof regular exercise and weight control. Due to insurance issues we will not plan additional follow up in radiation oncology. Patient will have her vitamin D level rechecked--we again reviewed the benefit of keeping this between 35 and 45 given that she is a breast cancer survivor. We will main her breast cancer summary to her. Patient will call if she has any questions or concerns. She would like to meet with solder making laborer to discuss weight loss --referral made. documented in this encounter Plan of Treatment Scheduled Referrals Name Type Priority Associated Diagnoses Order S chedule Referral to Outpatient Referral Routine Breast Cancer, Right Ordered: Nutrition Services 4 documented as of this encounter Visit Diagnoses Diagnosis Breast cancer, right - Primary Malignant neoplasm of breast (female), u nspecified site documented in this encounter Care Teams Chicken Tender Relationship Specialty Start Date End Date Spike Sierra MD PCP - General 01/12/10 01/23/17 [address] [place] [address] documented as of this encounter
--- OUTSIDE RECORDS SUMMARY | 2021-12-24 14:50 | XMS_ITS | Encounter Summary ---
:1955 [place] [address] Care Team Providers Name Role Phone Spike Sierra MD Primary Care Provider Encounter Details Date Type Department Care Team Description 12/24/2013 Hospital Encounter Radiology Library Spike Nicolas creening breast [place] [facility] [place] [facility] [address] [place] DIAGNOSIC [phone] RADIOLOGY [phone] [place] [address] Social History Tobacco Use Types Packs/Day Years Used Date Former Smoker Quit: 10/19/19 12 Sex Assigned at Date Recorded Not on file documented as of this encounter Medications at Time of Discharge Medication Sig Dispensed Refills Start Date End Date aspirin 81 mg EC tablet Take 81 mg by 0 mouth daily. amitriptyline (ELAVIL) 10 30mg, PO, QHS 0 011 03/16/2018 mg tablet levothyroxine (SYNTHROID) 0 05/04/2010 12/26/2013 100 mcg tablet escitalopram (LEXAPRO) 10 0 05/04/2010 03/08/2017 mg tablet alendronate (FOSAMAX) 70 mg 0 05/05/19 11 03/08/2017 tablet documented as of this encounter Plan of Treatment Not on filedocumented as of this encounter Procedures Procedure Name Priority Date/Time Associated Diagnosis Comme nts FILM LIBRARY Routine 12/24/2013 12:00 AM Screening breast Resu lts for this STORAGE ONLY MAMMO EST examination procedure are in the results section. documented in this encounter Results Film Library- Storage Only Mammo (12/24/2013 12:00 AM EST) Specimen (Source) Anatomical Location Collection Method / Collectio n Time Received Time / Laterality Volume Narrative RAD - 01/11/2017 4:45 PM EST This exam is for storage only and is aut o-finalizing. Spike Nicolas MD IMG FILM LIBRARY ORDERABLES Performing Organization Address City/State/ZIP Code Phon e Number [place], [place] documented in this encounter Visit Diagnoses Diagnosis Screening breast examination (Not by Delores mogram) Other screening breast examination documented in this encounter Care Teams Credit Negotiator Relationship Specialty Start Date End Date Spike Sierra MD PCP - General 01/12/10 01/23/17 [address] [place] [address] documented as of this encounter
--- OUTSIDE RECORDS SUMMARY | 2021-12-24 14:50 | XMS_ITS | Encounter Summary ---
:1955 [place] [address] Care Team Providers Name Role Phone Spike Sierra MD Primary Care Provider Reason for Visit Reason Comments Breast Cancer f/u Encounter Details Date Type Department Care Team Description 06/14/2010 Follow-Up Radiation Oncology at Danielle Fair MD DCIS (duct[facility] [place] [facility] [place] [facility] of [address] (Primary Dx) [place], [place] RADIATION ONCOL OGY [address] [place] [address] [phone] (Wo rk) Social History Tobacco Use Types Packs/Day Years Used Date Never Assessed Sex Assigned at Date Recorded Not on file documented as of this encounter Last Filed Vital Signs Vital Sign Reading Time Taken Comments Blood Pressure 130/86 06/14/2010 10:58 AM EDT Pulse 74 06/14/2010 10:58 AM EDT Temperature - - Respiratory Rate - - Oxygen Saturation 98% 06/14/2010 10:58 AM EDT ROOM A IR Inhaled Oxygen Concentration - - Weight 69.9 kg (154 lb) 06/14/2010 10:58 AM EDT Height - - Body Mass Index - - documented in this encounter Progress Notes Ivana Armstrong - 08/24/2010 7:39 PM EDT Ema Fair MD - 06/14/2010 11:17 AM EDT Subjective: Patient ID: Cecilia Marx is a 55 y.o. female who is here for FU, now 1 mo s/p xrt to R breast. 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 Hormonal tx not rec'd. MRI not rec'd. Review of Systems: Occasional discomfort when bumps irradiated breast; no pain. Energy level good. No swelling of hand. Good ROM of arms around shoulders. Objective: Physical Exam Constitutional: She is oriented to person, place, and time. She appears well- developed and well-nourished. No distress. HENT: Head: Normocephalic and atraumatic. Eyes: EOM are normal. Right eye exhibits no discharge. Left eye exhibits no discharge. No scleral icterus. Neck: Normal range of motion. Neck supple. No tracheal deviation present. No thyromegaly present. Pulmonary/Chest: Effort normal and breath sounds normal. No stridor. No respiratory distress. She has no wheezes. She has no rales. She exhibits no tenderness. Right breast exhibits skin change (Mild hyperpigmentation of R breast; skin intact.). Right breast exhibits no inverted nipple (R nipple invert ed during xrt, is no longer inverted.), no mass, no nipple discharge and no tenderness. Left breast exhibits no inverted nipple, no mass, no nipple discharge, no skin change and no tenderness. Breasts are symmetrical. Abdominal: Soft. Bowel sounds are normal. She exhibits no distension and no mass. No tenderness. Shehas no rebound and no guarding. Musculoskeletal: Normal range of motion. She exhibits no edema and no tenderness. Lymphadenopathy: She has no cervical adenopathy. Neurological: She is alert and oriented to person, place, and time. No cranial nerve deficit. She exhibits normal muscle tone. Coordination normal. Skin: Skin is warm and dry. No rash noted. She is not diaphoretic. No erythema. Psychiatric: She has a normal mood and affect. Her behavior is normal. Judgment and thought content normal. Assessment and Plan: No problem-specific visit notes found for this encounter. MILEY. She has FU w/Dr. Forrester in near future & will return to see me in 6 mos. documented in this encounter Procedure Notes Provider, Scanning - 11/09/2010 9:10 AM EDTAssociated Order(s): SCAN DOC: MAMMOGRAM documented in this encounter Plan of Treatment Not on filedocumented as of this encounter Procedures Procedure Name Priority Date/Time Associated Diagnosis Comme nts MAMMOGRAM SCAN 11/09/2010 9:10 AM Results for this EDT procedure are i n the results section . documented in this encounter Results SCAN DOC: MAMMOGRAM (11/09/2010 9:10 AM EDT) Narrative 11/09/2010 9:22 AM EDT Procedure Note Provider, Scanning - 11/09/2010 9:10 AM EDT Scanning Provider MEDIA MGR SCAN EXT ORDR/RSLT documented in this encounter Visit Diagnoses Diagnosis DCIS (ductal carcinoma in situ) of breas t - Primary Carcinoma in situ of breast documented in this encounter Care Teams Lsw Relationship Specialty Start Date End Date Spike Sierra MD PCP - General 01/12/10 01/23/17 [address] [place] [address] documented as of this encounter
--- OUTSIDE RECORDS SUMMARY | 2021-12-24 14:50 | XMS_ITS | Encounter Summary ---
:1955 [place] [address] Care Team Providers Name Role Phone Spike Sierra MD Primary Care Provider Encounter Details Date Type Department Care Team Description 03/08/2010 [facility] [address] RADIATION ONCOLOGY [place], [place] [id number] [phone] Social History Tobacco Use Types Packs/Day Years Used Date Never Assessed Sex Assigned at Date Recorded Not on file documented as of this encounter Plan of Treatment Not on filedocumented as of this encounter Visit Diagnoses Not on filedocumented in this encounter Care Teams Product Specialist Relationship Specialty Start Date End Date Spike Sierra MD PCP - General 01/12/10 01/23/17 [address] [place] [address] documented as of this encounter
--- OUTSIDE RECORDS SUMMARY | 2021-12-24 14:50 | XMS_ITS | Encounter Summary ---
:1955 Author Organization [facility] [place] [address] Care Team Providers Name Role Phone Christine Fuentes Primary Care Provider Encounter Details Date Type Department Care Team Description 03/30/2017 Hospital Encounter Mammography at [facility] Marla Brice Breast lesion [facility] [place] [address] GENERAL SURGERY [place], [place] [address] (Wo rk) Social History Tobacco [...] Priority Date/Time Associated Diagnosis Comme nts MAMMO SPECIMEN Routine 03/30/2017 1:34 PM Breast lesion Result s for this EST procedure are i n the results section . documented in this encounter Results Mammo Specimen (03/30/2017 1:34 [...] the specimen. There are no close margins. Marla Blue MD [facility] MAMMO ORDERABLES documented in this encounter Visit Diagnoses Diagnosis Breast lesion Unspecified breast disorder documented in this encounter Care Teams Mcat Tutor Relationship Specialty Start Date End Date Christine Fuentes PA PCP - General Family Medicine 01/24/17 10/08/19 [address] [place] [address] documented as of this encounter
--- OUTSIDE RECORDS SUMMARY | 2021-12-24 14:50 | XMS_ITS | Encounter Summary ---
:1955 Author Organization [facility] [place] [address] Care Team Providers Name Role Phone Spike Sierra MD Primary Care Provider Encounter Details Date Type Department Care Team Description 01/31/2014 Ancillary Appointment Hematology Oncology at Denzel Payne [facility] [address] [place] [phone] Social History Tobacco Use Types Packs/Day Years Used Date Former Smoker Quit: 10/19/19 12 Sex Assigned at Date Recorded Not on file documented as of this encounter Progress Notes Denzel Payne, MUMTAZ - 01/31/2014 9:02 AM EST [facility] Dietitian Follow Up Assessment Seen By: Elida Payne, , RD, MOLD TECHNICIAN, LD Reason for visit: Wanting to lose [...] 12/26/2013 Weight 77.565 kg Temp 97.9 Wt: Previous Wts: Down 3 lbs last week, weighed today and was the same (163 bls) on 01/31/14. Weighing herself at home. Went [...] up to 17 min/treadmill). Logging calories, likes [employer] and [employer] and the meal suggestions, but didn't feel she could follow it to the T. She likes the suggestions, but wants more of the control (i.e. Menu says salmon, but she wants left overs). Walking on the treadmill (l7 min/d), wine only on the weekends, not logging food, but trying to be more aware. We discussed the concept of food as [...] levels, if suboptimal in 3-6 mos. The [facility] series from [facility] September 2008 showed a lower risk of [...] for her, but she will do it. -- Maintain wt (163 lbs) during Elisabet holidays. -- Increasing time on treadmill -- Holding herself accountable Educational Handouts provided: -- Healthier substitutions: A [...] on filedocumented in this encounter Care Teams Business Continuity Consultant Relationship Specialty Start Date End Date Spike Sierra MD PCP - General 01/12/10 01/23/17 [address] [place] [address] documented as of this encounter
--- OUTSIDE RECORDS SUMMARY | 2021-12-24 14:50 | XMS_ITS | Encounter Summary ---
:1955 Author Organization [facility] [place] [address] Care Team Providers Name Role Phone Spike Sierra MD Primary Care Provider Reason for Visit Reason Onset Date Comments Other 03/07/2011 question regarding h ormone suppository Encounter Details Date Type Department Care Team Description 03/07/2011 Telephone Radiation Oncology at Jessica Boyer er (question [facility] Arian RN regarding hormone [address] [facility] suppository) [place] [phone] Social History Tobacco Use Types Packs/Day Years Used Date Never Assessed Sex Assigned at Date Recorded Not on file documented as of this encounter Miscellaneous Notes Telephone Encounter - Jessica Womack RN - 03/07/2011 5:51 PM EST Radiation Oncology Nurse Phone Note Patient calls stating that she recently saw her OPERATIONS CLERK physician, Dr Yasemin Selby, for c/o vaginal dryness and painful intercourse. She is recommending a low dose estrogen suppository for this, but stressed that she check with her oncologist first due to her H/O breast cancer ( DCIS) This was shared with Dr Fair who recommend that she see Dr Stack regarding this. This patient hasnot seen Dr Stack in the past, but her surgeon, Dr Forrester, did consult with Dr Stack prior to Radiation oncology consult and was told that this patient did not require hormonal therapy to treat her breast cancer. I called patient and left a brief message on her answer machine that Dr Fair has suggested that she meet with Dr Stack here at [facility] to discuss her question. Will ask typing secretary to contact pt w/ this appt. documented in this encounter Plan of Treatment Not on filedocumented as of this encounter Visit Diagnoses Not on filedocumented in this encounter Care Teams Catalyst Operator Gasoline Relationship Specialty Start Date End Date Spike Sierra MD PCP - General 01/12/10 01/23/17 [address] [place] [address] documented as of this encounter
--- OUTSIDE RECORDS SUMMARY | 2021-12-24 14:50 | XMS_ITS | Encounter Summary ---
:1955 Author Organization [facility] [place] [address] Care Team Providers Name Role Phone Spike Sierra MD Primary Care Provider Reason for Visit Reason Onset Date Comments Other 07/05/2011 answer patient quest ion Encounter Details Date Type Department Care Team Description 07/05/2011 Telephone Radiation Oncology at Daniel Boyer [facility] er (answer patient [facility] Arian RN question) [address] [place] [phone] Social History Tobacco Use Types Packs/Day Years Used Date Never Assessed Sex Assigned at Date Recorded Not on file documented as of this encounter Miscellaneous Notes Telephone Encounter - Daniel Jimenez RN - 07/05/2011 8:50 AM EDT Radiation Oncology Nurse Phone Note Message copied by DANIEL JIMENEZ on MonJuly 05, 2011 8:50 AM ------ Message from: RAQUEL LOWRY Created: MonJuly 04, 2011 11:53 AM Regarding: re:upcoming appt Contact: [phone] Please call pt back. She said there was some confusion with what she thought the upcoming appt was going to be about. I called patient and she confirmed that she received appt to see the nurse practitioner,Yolette Coon 07/13, but she feels it is too soon after seeing Dr Fair in May. She states she is now seeing a Gnosticism counselor through her worship and this is helping with her depression. She is agreeable toseeing the nurse practitioner, but prefers to wait until the routine follow up appt would be. She wishes to cancel the 07/13 appointment. She voiced that she will call this clinic if she feels the current arrangement w/ her worship is not helpful. Plan: Will cancel the 07/13 appt w/ C. Pace. I will ask Dr Fair in this week's team meeting, when she wishes for the appt to be rescheduled to. documented in this encounter Plan of Treatment Not on filedocumented as of this encounter Visit Diagnoses Not on filedocumented in this encounter Care Teams Engineering Librarian Relationship Specialty Start Date End Date Spike Sierra MD PCP - General 01/12/10 01/23/17 [address] [place] [address] documented as of this encounter
--- OUTSIDE RECORDS SUMMARY | 2021-12-24 14:50 | XMS_ITS | Encounter Summary ---
:1955 Author Organization [facility] [place] [address] Care Team Providers Name Role Phone Spike Sierra MD Primary Care Provider Encounter Details Date Type Department Care Team Description 01/20/2017 Hospital Encounter Radiology Library Ashwin Fuentes finding on [place] [facility] breast imaging [facility] [address] [place] [phone] Social History Tobacco Use Types Packs/Day Years Used Date Former Smoker Quit: 10/19/19 12 Sex Assigned at Date Recorded Not on file documented as of this encounter Medications at Time of Discharge Medication Sig Dispensed Refills Start Date End Date aspirin 81 mg EC tablet Take 81 mg by 0 mouth daily. escitalopram (LEXAPRO) 10 0 12/26/2016 03/16/2018 mg [...] Name Priority Date/Time Associated Diagnosis Comme nts REQUEST FOR 2ND Routine 01/20/2017 4:53 PM Abnormal finding on Results for this READ MAMMO EST breast imaging procedure are in the results section. documented in this encounter Results Request for 2nd read Mammo (01/20/2017 4:53 PM EST) Anatomical Region Laterality Modality SO Specimen (Source) Anatomical Location Collection Method / Collectio n Time Received Time / Laterality Volume Impressions 01/23/2017 5:03 PM EST LEFT BREAST LESION #1 0.8 cm Mass ??deep central Quadrant 12 O Clock 6 cm from the nipple BI-RADS Category 4: Suspicious Finding - Biopsy Should Be Considered RECOMMENDATION: LEFT breast ultrasound to decide biopsy method. This is amenable to a rita guided biopsy if not visible by ultrasou nd Please note: The interpretation of the [facility] Breast Imaging Radiologist subspecialist may differ fro m the original radiologists interpretation. This is usually not due to a deficiency of the original interpreting radiologist, rather due to the greater skill level afforded by sub-specialization in the field and/or r easonable variations in interpretations. If you have a concern regarding the [facility] interpretation you may contact the [facility] Breast Pocket Creaser Office at . Narrative 01/23/2017 5:03 PM EST INTERPRETATION OF OUTSIDE BREAST IMAGING I have been asked to consult on this pat ient by Dr. dang because he/she believes a review of this study may zarate ge or alter the care of this patient. STUDIES FROM: [facility] DATES: 01/06/2017 ? CLINICAL HISTORY: ABNORMAL IMAGIN-LEFT B REAST, CAT 3; ? BX; ? MORE IMAGING; What Modality is the exam? Mammography; Body Part (please add comments as necessary): LEFT BREAST; I believe a reinterpretatio n of this exam may alter care of Patient. Yes. ?? COMPARISONS: [id number] FINDINGS: The breasts of scattered fiber glandular density. The patient has history of right-sided breast cancer RIGHT breast: Stable postsurgical change s in the upper outer quadrant RIGHT breast with no mammographic concerns mal ignancy LEFT breast: In the 12:00 position 6 cm the nipple there is a 0.8 cm area of architectural distortion, possibly a sma ll spiculated mass and punctate microcalcifications. This persists on th e additional cone compression views and is suspicious for a small malignancy sonia justin a radial scar. No Ultrasound performed. Multiple tiny well-defined ma sses scattered throughout the LEFT breast consistent with cysts. Procedure Note Anita Valentine MD - 01/23/2017Formattin g of this note might be different from the original. INTERPRETATION OF OUTSIDE BREAST IMAGING I have been asked to consult on this pat ient by Dr. dang because he/she believes a review of this study may zarate ge or alter the care of this patient. STUDIES FROM: [facility] DATES: 01/06/2017 CLINICAL HISTORY: ABNORMAL IMAGIN-LEFT B REAST, CAT 3; ? BX; ? MORE IMAGING; What Modality is the exam? Mammography; Body Part (please add comments as necessary): LEFT BREAST; I believe a reinterpretatio n of this exam may alter care of Patient. Yes. COMPARISONS: [id number] FINDINGS: The breasts of scattered fiber glandular density. The patient has history of right-sided breast cancer RIGHT breast: Stable postsurgical change s in the upper outer quadrant RIGHT breast with no mammographic concerns mal ignancy LEFT breast: In the 12:00 position 6 cm the nipple there is a 0.8 cm area of architectural distortion, possibly a sma ll spiculated mass and punctate microcalcifications. This persists on th e additional cone compression views and is suspicious for a small malignancy sonia justin a radial scar. No Ultrasound performed. Multiple tiny well-defined ma sses scattered throughout the LEFT breast consistent with cysts. IMPRESSION LEFT BREAST LESION #1 0.8 cm Mass deep central Quadrant 12 OCl ock 6 cm from the nipple BI-RADS Category 4: Suspicious Finding - Biopsy Should Be Considered RECOMMENDATION: LEFT breast ultrasound to decide biopsy method. This is amenable to a rita guided biopsy if not visible by ultrasou nd Please note: The interpretation of the [facility] Breast Imaging Radiologist subspecialist may differ fro m the original radiologists interpretation. This is usually not due to a deficiency of the original interpreting radiologist, rather due to the greater skill level afforded by sub-specialization in the field and/or r easonable variations in interpretations. If you have a concern regarding the [facility] interpretation you may contact the [facility] Breast Pocket Creaser Office at . Christine COTO [facility] OUTSIDE INTERPRETATION O RDERABLES documented in this encounter Visit Diagnoses Diagnosis Abnormal finding on breast imaging Other (abnormal) findings on radiologica l examination of breast documented in this encounter Care Teams Layboy Operator Relationship Specialty Start Date End Date Spike Sierra MD PCP - General 01/12/10 01/23/17 [address] [place] [address] documented as of this encounter
--- OUTSIDE RECORDS SUMMARY | 2021-12-24 14:50 | XMS_ITS | Encounter Summary ---
:1955 Author Organization [facility] [address] Care Team Providers Name Role Phone Spike Sierra MD Primary Care Provider Encounter Details Date Type Department Care Team Description 03/30/2010 Follow-Up ZLEB DEP Ema Durbin MD Canceled (DH Cancelled) [facility] [place] [address] RADIATION ONCO [place] [phone] (Wo rk) Social History Tobacco Use Types Packs/Day Years Used Date Never Assessed Sex Assigned at Date Recorded Not on file documented as of this encounter Plan of Treatment Not on filedocumented as of this encounter Visit Diagnoses Not on filedocumented in this encounter Care Teams Dairy Farm Manager Relationship Specialty Start Date End Date Spike Sierra MD PCP - General 01/12/10 01/23/17 [address] [place] [address] documented as of this encounter
--- OUTSIDE RECORDS SUMMARY | 2021-12-24 14:50 | XMS_ITS | Encounter Summary ---
:1955 [place] [address] Care Team Providers Name Role Phone Spike Sierra MD Primary Care Provider Encounter Details Date Type Department Care Team Description 01/06/2017 Hospital Encounter Radiology Library at Landen Nicolas, [facility] [place] [address] DIAGNOSIC RADIOLOGY [phone] [place] [phone] (Wo rk) Social History Tobacco Use Types [...] Associated Diagnosis Comme nts FILM LIBRARY Routine 01/06/2017 12:00 AM Results for this STORAGE ONLY MAMMO EST procedure are in the results section. documented in this encounter Results Film Library- Storage Only Mammo (01/06/2017 12:00 AM EST) Specimen (Source) Anatomical Location Collection Method / Collectio n Time Received Time / Laterality Volume Narrative RAD - 01/10/2017 4:30 PM EST This exam is for storage only and is aut o-finalizing. Spike Nicolas MD [facility] FILM LIBRARY ORDERABLES Performing Organization Address City/State/ZIP Code Phon e Number [place], [place] documented in this encounter Visit Diagnoses Not on filedocumented in this encounter Care Teams Stock Fitter Relationship Specialty Start Date End Date Spike Sierra MD PCP - General 01/12/10 01/23/17 [address] [place] [address] documented as of this encounter
--- OUTSIDE RECORDS SUMMARY | 2021-12-24 14:50 | XMS_ITS | Encounter Summary ---
:1955 Author Organization [facility] [place] [address] Care Team Providers Name Role Phone Christine Fuentes Primary Care Provider Encounter Details Date Type Department Care Team Description 03/08/2017 Office Visit Hematology and Marla Brice ing adenosis Oncology at [facility] [place] Mirza of left breast [facility] [address] [place], [place] GENERAL SURGERY [address] [place] [address] [phone] (Wo rk) Social History Tobacco Use Types Packs/Day Years Used Date Former Smoker Quit: 10/19/19 12 Sex Assigned at Date Recorded Not on file documented as of this encounter Last Filed Vital Signs Vital Sign Reading Time Taken Comments Blood Pressure 138/95 03/08/2017 10:12 AM EST Pulse 85 03/08/2017 10:12 AM EST Temperature 36.8 ??C (98.2 ??F) 03/08/2017 10:12 AM EST Respiratory Rate 18 03/08/2017 10:12 AM EST Oxygen Saturation 97% 03/08/2017 10:12 AM EST Inhaled Oxygen Concentration - - Weight 77.6 kg (171 lb) 03/08/2017 10:12 AM EST Height 162 cm (5' 3.78) 03/08/2017 10:12 AM EST Body Mass Index 29.55 03/08/2017 10:12 AM EST documented in this encounter Progress Notes Marla Brice MD - 03/08/2017 10:15 AM EST Surgical Oncology New Visit Note Reason for Visit: Cecilia Marx is a 61 y.o. female was referred by Christine Fuentes for evaluation of left breast sclerosing lesion. 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 Reports a left breast infection about 2-3 weeks after biopsy. Had redness, pain and inverted nipple.She was started on augmentin for 21 days and symptoms resolved. Here today with her . Active Ambulatory Problems Diagnosis Date Noted ??? DCIS (ductal carcinoma in situ) of breast 06/14/2010 Resolved Ambulatory Problems Diagnosis Date Noted ??? No Resolved Ambulatory Problems Past Medical History: Diagnosis Date ??? Breast cancer ??? Depression ??? Headache(784.0) ??? Hypothyroidism ??? Migraines ??? Sleep disturbance Past Surgical History: Procedure Laterality Date ??? BREAST LUMPECTOMY Right 2009 DCIS s/p PM and RT Current Outpatient Prescriptions: ??? buPROPion (WELLBUTRIN SR [...] Take by mouth., Disp: , Rfl: ??? levothyroxine (SYNTHROID) 75 mcg Tablet, Take 75 mcg by mouth daily., Disp: , Rfl: ??? Cholecalciferol, Vitamin D3, 2,000 unit Capsule, Take by mouth., Disp: , Rfl: ??? aspirin 81 mg EC tablet, Take 81 mg by mouth daily., Disp: , Rfl: ??? amitriptyline (ELAVIL) 10 mg tablet, 30mg, PO, QHS, Disp: , Rfl: ??? amoxicillin-clavulanate (AUGMENTIN) 500-125 mg Tablet, take 1 tablet by mouth twice a day, Disp:, Rfl: 0 ??? escitalopram (LEXAPRO) 10 mg Tablet, , Disp: , Rfl: DRUG ALLERGIES: Allergies as of 03/08/2017 - Review Complete 03/08/2017 Allergen Reaction Noted ??? Nitrofurantoin monohyd/m-cryst SOCIAL HISTORY: Social History Social History ??? Marital status: Spouse name: N/A ??? Number of children: N/A ??? Years of education: N/A Occupational History ??? Not on file. Social History Main Topics ??? Smoking status: Former Smoker Quit date: 10/19/2011 ??? Smokeless tobacco: Not on file ??? Alcohol use Not on file ??? Drug use: Not on file ??? Sexual activity: Not on file Other Topics Concern ??? Not on file Social History Narrative Family History Problem Relation Age of Onset ??? Breast Cancer Mother age 53 ??? Breast Cancer Maternal Aunt REVIEW OF SYSTEMS: A 12 point complete review of systems was obtained from the patient and confirmedby me. It was negative except for what was stated in the HPI She otherwise denies high blood pressure, heart disease, lung disease, diabetes, and infectious diseases. PHYSICAL EXAMINATION: Constitutional: This is a 61 y.o. female in no apparent distress BP (!) 138/95 (Patient Position: Sitting) Pulse 85 Temp 36.8 ??C (98.2 ??F) (Temporal) Resp 18 Ht 162 cm (5' 3.78) Wt 77.6 kg (171 lb) SpO2 97% BMI 29.55 kg/m2 Body mass index is 29.55 kg/(m^2). Eyes: anicteric, extra ocular movements are intact [...] partially sampled/excised. Impression: Cecilia Marx is a 61 y.o. female [...] Plan: 1) Referral to familial genetics 2) patient to decide in regards to surgical excision biopsy vs surveillance and let me know. If she wants excsion, plant for left breast wide excision with needle localizaton. Same day surgery. Marla Brice MD Surgical Oncology documented in this encounter Plan of Treatment Not on filedocumented as of this encounter Visit Diagnoses Diagnosis Sclerosing adenosis of left breast documented in this encounter Care Teams Turpentine Distiller Relationship Specialty Start Date End Date Christine Fuentes PA PCP - General Family Medicine 01/24/17 10/08/19 [address] [place] [address] documented as of this encounter
--- OUTSIDE RECORDS SUMMARY | 2021-12-24 14:50 | XMS_ITS | Encounter Summary ---
:1955 Author Organization [facility] [place] [address] Care Team Providers Name Role Phone Christine Fuentes Primary Care Provider Encounter Details Date Type Department Care Team Description 02/01/2017 Hospital Encounter Mammography at [facility] [place] Anita Valentine, Abnormal finding on [facility] MD breast imaging [facility] [address] NUCLEAR MEDICINE [phone] [place] [address] Social History Tobacco Use Types Packs/Day Years [...] 03/08/2017 tablet documented as of this encounter Progress Notes Britney Swanson MD - 02/01/2017 11:59 PM EST Patient called at 6:30pm on 02/27/2017 to report new erythema and inversion of the L nipple at the site of prior biopsy. She states the breast had always been sore following the procedure, today it became bright red with nipple inversion. She does not have a fever or fluctuant mass at the site. This does not sound like an abscess and I explained it is unlikely to require emergent intervention, but she should be seen by her primary physician as soon as possible. Patient would like to see her physician Dr. Fuentes tomorrow rather than come to or go to the ER. She also has an appointment with Dr. Brice on 03/08/2017 for her biopsied breast lesion. She knows to call again if symptoms progress. documented in this encounter Plan of Treatment Not on filedocumented as of this encounter Procedures Procedure Name Priority Date/Time Associated Diagnosis Comme nts SURGICAL PATHOLOGY Routine 02/01/2017 1:46 PM Res ults for this REPORT EST procedure are i n the results section. MAMMO BREAST US Routine 02/01/2017 1:09 PM Abnormal finding on Results for this LIMITED LEFT EST breast imaging procedure are in the results section. documented in this encounter Results Surgical Pathology Report (02/01/2017 1:46 PM EST) Component Value Ref Test Analysis Performed At [facility] Method Time Signature Surgical [id number] ? Location: [address] [place] [address] Pathology [place] Report The signing pathologist has (i) examined the relevant preparation(s) for the [facility] specimen(s) and (ii) rendered or confirmed the diagnosis(es) . HOSPITAL LABORATORY . ?Surgic al Pathology DIAGNOSIS Needle biopsies: ?Left breast Diagnosis: ?1. Complex sclerosing lesion(s) with usual ?ductal hyperplasia, sclerosing adeno sis, cysts, ? columnar cell change, and apocrine metaplasia ? (see Discussion) ?2. Intraductal papilloma and clustered apocrine cysts Microcalcifications: ??Associated with complex sclerosing le elvira Electronically signed by: ??Alayna Muro DO Verified: ??02/02/2017 ?Pathologist Performed at: ??-[facility] Dept. of Pathology, [place], [place] DISCUSSION Multiple foci of complex sclerosing lesion(s) are pres ent in multiple tissue cores making it difficult t o approximate an overall size. The largest microscopic measurement is 6.0 mm. The lesion is likely only part ially sampled/excised. CLINICAL INFORMATION Specimen Submitted: A - Left breast stereo bx 9g Clinical History: Architectural distortion Clinical Diagnosis: 1. CA, 2. Radial scar SPECIMEN PROCESSING A - ??Labeled/Fixative: Left breast stereo BX, 9G, formalin. Quantity/Size: Six, averaging 3.5 x 0.3 cm. Tissue Description: Varigate d pink to yellow-white, fibrofatty needle core biopsies. Ischemic Time: 5 minutes. Sections/Processing: (T2) ??shb Specimen (Source) Anatomical Collection Method Collection Time Re ceived Time Location / / Volume Laterality 02/01/2017 1:46 PM EST Evans Duvall MD PATHOLOGY/CYTOLOGY ORDERABLE S Performing Organization Address City/State/[place] [address] Mammo Breast Us Limited Left (02/01/2017 1:09 PM EST) Anatomical Region Laterality Modality Breast Left Mammography Specimen (Source) Anatomical Location Collection Method / Collectio n Time Received Time / Laterality Volume Addenda Addendum by Evans Duvall MD on 1 04/12/2016 2:34 PM EST ADDENDUM #1 EXAMINATION: MAMMO BREAST US LIMITED LEF T CLINICAL HISTORY: abnormal finding. 4 di rected ultrasound to establish best modality for guiding core biopsy. TECHNIQUE: High-resolution ultrasound wa s performed of the left breast 12:00 radian middle third. COMPARISON: Breast, FINDINGS: There is no evidence of discrete solid l esion, abnormal acoustical shadowing, or cyst. IMPRESSION: No sonographic correlate for mammographi c finding. Recommend rita guided core biopsy perfor med and dictated below. BI-RADS Category 4: Suspicious Finding - Biopsy Should Be Considered ORIGINAL REPORT STEREOTACTIC GUIDED VACUUM ASSISTED BIOP SY OF THE LEFT BREAST(S) CLINICAL HISTORY: abnormal finding. ??Ma ss/distortion left breast 12:00 radian 6 cm from the nipple measuring 0.8 cm. Procedural details: Informed consent was obtained and a davin e out procedure was performed per hospital protocol. The patient gave perm ission to proceed. Using sterile technique and local anesthetic (less aissatou n 20 cc's of 1% lidocaine) a biopsy was performed from the craniocaudal approach using tomographic guidance and direct digital imaging. The patient was in the upright position. Multiple core biopsy specimens were obta ined using a [employer] Eviva 9g 20mm device. A specimen radiograph confirms the mass with distorted edges to be contained within it. This also contains the incide ntal microcalcifications associated with the area of concern. A [employer] Eviva cylinder marker clip was d eployed. A follow-up mammogram was performed in t he CC and True Lateral projections and demonstrates the clip in the biopsy bed COMPLICATIONS: None. PROCEDURAL ATTESTATION: Resident: None I performed the procedure without a resi dent. IMAGING DIFFERENTIAL DIAGNOSIS: Radial scar, invasive carcinoma, focal f ibrosis PATHOLOGIC DIAGNOSIS: Complex sclerosing lesion probably not c ompletely removed IMPRESSION: Concordant result RECOMMENDATION: Surgical consultation. I discussed these results and recommendations with the patient on 02/03/2017 at 0915 hours. REVIEW PATH CONFERENCE?: No Impressions 02/03/2017 9:17 AM EST Concordant result RECOMMENDATION: Surgical consultation. I discussed these results and recommendations with the patient on 02/03/2017 at 0915 hours. REVIEW PATH CONFERENCE?: No Narrative 02/03/2017 9:17 AM EST STEREOTACTIC GUIDED VACUUM ASSISTED BIOPSY OF THE LEFT BREAST(S) CLINICAL HISTORY: abnormal finding. ??Ma ss/distortion left breast 12:00 radian 6 cm from the nipple measuring 0.8 cm. Procedural details: Informed consent was obtained and a davin e out procedure was performed per hospital protocol. The patient gave perm ission to proceed. Using sterile technique and local anesthetic (less aissatou n 20 cc's of 1% lidocaine) a biopsy was performed from the craniocaudal approach using tomographic guidance and direct digital imaging. The patient was in the upright position. Multiple core biopsy specimens were obta ined using a [employer] Eviva 9g 20mm device. A specimen radiograph confirms the mass with distorted edges to be contained within it. This also contains the incide ntal microcalcifications associated with the area of concern. A [employer] Eviva cylinder marker clip was d eployed. A follow-up mammogram was performed in t he CC and True Lateral projections and demonstrates the clip in the biopsy bed COMPLICATIONS: None. PROCEDURAL ATTESTATION: Resident: None I performed the procedure without a resi dent. IMAGING DIFFERENTIAL DIAGNOSIS: Radial scar, invasive carcinoma, focal f ibrosis PATHOLOGIC DIAGNOSIS: Complex sclerosing lesion probably not c ompletely removed Procedure Note Evans Duvall MD - 02/03/2017Form atting of this note might be different from the original. STEREOTACTIC GUIDED VACUUM ASSISTED BIOP SY OF THE LEFT BREAST(S) CLINICAL HISTORY: abnormal finding. Mass /distortion left breast 12:00 radian 6 cm from the nipple measuring 0.8 cm. Procedural details: Informed consent was obtained and a davin e out procedure was performed per hospital protocol. The patient gave perm ission to proceed. Using sterile technique and local anesthetic (less aissatou n 20 cc's of 1% lidocaine) a biopsy was performed from the craniocaudal approach using tomographic guidance and direct digital imaging. The patient was in the upright position. Multiple core biopsy specimens were obta ined using a S[employer] Eviva 9g 20mm device. A specimen radiograph confirms the mass with distorted edges to be contained within it. This also contains the incide ntal microcalcifications associated with the area of concern. A [employer] Eviva cylinder marker clip was d eployed. A follow-up mammogram was performed in t he CC and True Lateral projections and demonstrates the clip in the biopsy bed COMPLICATIONS: None. PROCEDURAL ATTESTATION: Resident: None I performed the procedure without a resi dent. IMAGING DIFFERENTIAL DIAGNOSIS: Radial scar, invasive carcinoma, focal f ibrosis PATHOLOGIC DIAGNOSIS: Complex sclerosing lesion probably not c ompletely removed IMPRESSION Concordant result RECOMMENDATION: Surgical consultation. I discussed these results and recommendations with the patient on 02/03/2017 at 0915 hours. REVIEW PATH CONFERENCE?: No Anita Valentine MD IMG MAMMO ORDERABLES documented in this encounter Visit Diagnoses Diagnosis Abnormal finding on breast imaging Other (abnormal) findings on radiologica l examination of breast documented in this encounter Care Teams Pipe Threading Machine Operator Relationship Specialty Start Date End Date Christine Fuentes PA PCP - General Family Medicine 01/24/17 10/08/19 [address] [place] [address] documented as of this encounter
--- OUTSIDE RECORDS SUMMARY | 2021-12-24 14:50 | XMS_ITS | Encounter Summary ---
:1955 [place] [address] Care Team Providers Name Role Phone Unavailable Primary Care Provider Unavailable Encounter Details Date Type Department Care Team Description 12/03/2009 Hospital Encounter Radiology Library at [facility], [facility] [place] [address] DIAGNOSIC RADIOLOGY [phone] [place], [place] [address] (Wo rk) Social History Tobacco Use Types Packs/Day Years Used Date Never Assessed Sex Assigned at Date Recorded Not on file documented as of this encounter Plan of Treatment Not on filedocumented as of this encounter Procedures Procedure Name Priority Date/Time Associated Diagnosis Comme nts FILM LIBRARY Routine 12/03/2009 12:00 AM Results for this STORAGE ONLY MAMMO EDT procedure are in the results section. documented in this encounter Results Film Library- Storage Only Mammo (12/03/2009 12:00 AM EDT) Specimen (Source) Anatomical Location Collection Method / Collectio n Time Received Time / Laterality Volume Narrative RAD - 01/13/2017 9:12 AM EST This exam is for storage only and is aut o-finalizing. Spike Nicolas MD G FILM LIBRARY ORDERABLES Performing Organization Address City/State/ZIP Code Phon e Number RAD [place], [place] documented in this encounter Visit Diagnoses Not on filedocumented in this encounter
--- OUTSIDE RECORDS SUMMARY | 2021-12-24 14:50 | XMS_ITS | Encounter Summary ---
:1955 Author Organization [facility] [place] [address] Care Team Providers Name Role Phone Spike Sierra MD Primary Care Provider Encounter Details Date Type Department Care Team Description 04/20/2010 [facility] [address] RADIATION ONCOLOGY [place], [place] [address] [place] [address] [phone] (Wo rk) Social History Tobacco Use Types Packs/Day Years Used Date Never Assessed Sex Assigned at Date Recorded Not on file documented as of this encounter Plan of Treatment Not on filedocumented as of this encounter Visit Diagnoses Not on filedocumented in this encounter Care Teams Stitch Rubber Relationship Specialty Start Date End Date Spike Sierra MD PCP - General 01/12/10 01/23/17 [address] [place] [address] documented as of this encounter
--- OUTSIDE RECORDS SUMMARY | 2021-12-24 14:50 | XMS_ITS | Encounter Summary ---
:1955 Author Organization [facility] [place] [address] Care Team Providers Name Role Phone Christine Fuentes Primary Care Provider Reason for Visit Consultation (Routine) - Closed Specialty Diagnoses / Procedures Referred By Contact Refer red To Contact Hematology and Oncology Diagnoses Abnormal magnetic resonance imaging of left breast Christine Fuentes, [facility] c Hem Onc 3k PA [facility] [address] [place] [address] [place] [address] Phone: Fax: Referral ID Status Reason Start Date Expiration Date Visits V isits Requested Authorized [id number] Closed Consult, Test 01/20/2017 01/20/2018 1 1 & Treat PCP Updated and/or Approved Encounter Details Date Type Department Care Team Description 02/01/2017 Hospital Encounter Mammography at [facility] [place] Anita Valentine, Abnormal finding on [facility] breast imaging [place], [place] [address] NUCLEAR MEDICINE [phone] [place] [address] Social History Tobacco Use Types Packs/Day Years [...] documented as of this encounter Progress Notes Richie Grant DO - 02/01/2017 8:16 AM EST Pre-procedure note for needle breast biopsies performed in radiology. Procedure date: Today Procedure type: left breast stereotactic biopsy Allergies: Nitrofurantoin monohyd/m-cryst Medications: Current Outpatient Prescriptions: ??? levothyroxine (SYNTHROID) 75 mcg Tablet, Take 75 mcg by mouth daily., Disp: , Rfl: ??? Cholecalciferol, Vitamin D3, 2,000 unit Capsule, Take by mouth., Disp: , Rfl: ??? aspirin 81 mg EC tablet, Take 81 mg by mouth daily., Disp: , Rfl: ??? amitriptyline (ELAVIL) 10 mg tablet, 30mg, PO, QHS, Disp: , Rfl: ??? escitalopram (LEXAPRO) 10 mg tablet, , Disp: , Rfl: ??? alendronate (FOSAMAX) 70 mg tablet, , Disp: , Rfl: Anticoagulation status: none stopped on: N/A Imaging reviewed and procedural plan approved by Dr. Richie Grant DO documented in this encounter Plan of Treatment Not on filedocumented as of this encounter Procedures Procedure Name Priority Date/Time Associated Comments Diagnosis MAMMO STEREOTACTIC Routine 02/01/2017 1:59 PM Abnormal finding on Results for this BIOPSY EST breast imaging procedure are in the results section. SPECIMEN TO PATHOLOGY Routine 02/01/2017 1:46 PM Results for this EST procedure are i n the results section. documented in this encounter Results Mammo Stereotactic (02/01/2017 1:59 PM EST) Anatomical Region Laterality Modality Breast [...] biopsy specimens were obta ined using a [employer] Eviva 9g 20mm device. A specimen radiograph confirms the mass with distorted edges to be contained within it. This also contains the incide ntal microcalcifications associated with the area of concern. A [employer] Eviva cylinder marker clip was d eployed. [...] biopsy specimens were obta ined using a [employer] Systemsiva 9g 20mm device. A specimen radiograph confirms the mass with distorted edges to be contained within it. This also contains the incide ntal microcalcifications associated with the area of concern. A Baros[employer] Eviva cylinder marker clip was d eployed. [...] biopsy specimens were obta ined using a [employer] Eviva 9g 20mm device. A specimen radiograph confirms the mass with distorted edges to be contained within it. This also contains the incide ntal microcalcifications associated with the area of concern. A [employer] Eviva cylinder marker clip was d eployed. [...] No Anita Valentine MD IMG MAMMO ORDERABLES Specimen to Pathology (surgical or derm) (02/01/2017 1:46 PM EST) Specimen Anatomical Collection Method Collection Time Receive d Time (Source) Location / / Volume Laterality AP Specimen 02/01/2017 1:46 PM 7 1:46 EST PM EST Narrative [facility] - 02/01/2017 1:46 PM EST Specimen requisition ordered. ??Separate Pathology report to follow Evans Duvall MD PATHOLOGY/CYTOLOGY ORDERABLE S Performing Organization Address City/State/[place] [address] documented in this encounter Visit Diagnoses Diagnosis Abnormal finding on breast imaging Other (abnormal) findings on radiologica l examination of breast documented in this encounter Administered Medications Inactive Administered Medications - up to 3 most recent administrations Medication Order MAR Action Action Date Dose Rate Site lidocaine (XYLOCAINE) 10 mg/mL (1 Given 02/01/2017 1:35 PM EST 1 0 mg %) injection 10 mg 10 mg, Intradermal, ONCE, 1 dose, On Mon02/01/17 at 1345, Routine documented in this encounter Care Teams Activity Aid Relationship Specialty Start Date End Date Christine Fuentes PA PCP - General Family Medicine 01/24/17 10/08/19 [address] [place] [address] documented as of this encounter
--- OUTSIDE RECORDS SUMMARY | 2021-12-24 14:50 | XMS_ITS | Encounter Summary ---
:1955 Author Organization [facility] [place] [address] Care Team Providers Name Role Phone Unavailable Primary Care Provider Unavailable Encounter Details Date Type Department Care Team Description 01/06/2010 Procedure visit [place] [address] Social History Tobacco Use Types Packs/Day Years Used Date Never Assessed Sex Assigned at Date Recorded Not on file documented as of this encounter Plan of Treatment Not on filedocumented as of this encounter Visit Diagnoses Not on filedocumented in this encounter
--- OUTSIDE RECORDS SUMMARY | 2021-12-24 14:50 | XMS_ITS | Encounter Summary ---
:1955 Author Organization [facility] [place] [address] Care Team Providers Name Role Phone Spike Sierra MD Primary Care Provider Encounter Details Date Type Department Care Team Description 03/08/2010 Office Visit [facility] DEP TBD Rad Nurse, [place] [address] Social History Tobacco Use Types Packs/Day Years Used Date Never Assessed Sex Assigned at Date Recorded Not on file documented as of this encounter Plan of Treatment Not on filedocumented as of this encounter Visit Diagnoses Not on filedocumented in this encounter Care Teams Moulder Operator Relationship Specialty Start Date End Date Spike Sierra MD PCP - General 01/12/10 01/23/17 [address] [place] [address] documented as of this encounter
--- OUTSIDE RECORDS SUMMARY | 2021-12-24 14:50 | XMS_ITS | Encounter Summary ---
:1955 [place] [address] Care Team Providers Name Role Phone Spike Sierra MD Primary Care Provider Encounter Details Date Type Department Care Team Description 12/04/2012 Hospital Encounter Radiology Library Spike Nicolas [place] [facility] [place] [facility] [address] [place] [phone] RADIOLOGY [phone] [place] [address] Social History Tobacco Use Types Packs/Day Years Used Date Former Smoker Quit: 10/19/19 12 Sex Assigned at Date Recorded Not on file documented as of this encounter Medications at Time of Discharge Medication Sig Dispensed Refills Start Date End Date CIS Free Text Med - Aspirin 0 05/05/19 11 12/13/2012 amitriptyline (ELAVIL) 10 mg 30mg, PO, QHS 0 04/2003/16/2018 tablet levothyroxine (SYNTHROID) 100 0 201012/26/2013 mcg tablet escitalopram (LEXAPRO) 10 mg 0 011 03/08/2017 tablet SUMAtriptan (IMITREX) 100 mg 0 011 12/13/2012 tablet alendronate (FOSAMAX) 70 mg 0 05/05/19 11 03/08/2017 tablet documented as of this encounter Plan of Treatment Not on filedocumented as of this encounter Procedures Procedure Name Priority Date/Time Associated Diagnosis Comme nts FILM LIBRARY Routine 12/04/2012 12:00 AM Screening breast Resu lts for this STORAGE ONLY MAMMO EDT examination procedure are in the results section. documented in this encounter Results Film Library- Storage Only Mammo (12/04/2012 12:00 AM EDT) Specimen (Source) Anatomical Location Collection Method / Collectio n Time Received Time / Laterality Volume Narrative RAD - 01/11/2017 4:43 PM EST This exam is for storage only and is aut o-finalizing. Spike Nicolas [place] [facility] [place] ORDERABLES Performing Organization Address City/State/ZIP Code Phon e Number [place], [place] documented in this encounter Visit Diagnoses Diagnosis Screening breast examination (Not by Delores tristan) Other screening breast examination documented in this encounter Care Teams Pcb Design Engineer Relationship Specialty Start Date End Date Spike Sierra MD PCP - General 01/12/10 01/23/17 [address] [place] [address] documented as of this encounter
--- OUTSIDE RECORDS SUMMARY | 2021-12-24 14:50 | XMS_ITS | Encounter Summary ---
:1955 Author Organization [facility] [address] Care Team Providers Name Role Phone Spike Sierra MD Primary Care Provider Encounter Details Date Type Department Care Team Description 01/23/2014 Ancillary Appointment Hematology Oncology at Denzel Payne [facility] [address] [place] [address] Social History Tobacco Use Types Packs/Day Years Used Date Former Smoker Quit: 10/19/19 12 Sex Assigned at Date Recorded Not on file documented as of this encounter Progress Notes Denzel Payne RD - 01/23/2014 10:57 AM EST Pt cx appointment. Will follow up in one week. documented in this encounter Plan of Treatment Not on filedocumented as of this encounter Visit Diagnoses Not on filedocumented in this encounter Care Teams Unemployment Benefits Claims Taker Relationship Specialty Start Date End Date Spike Sierra MD PCP - General 01/12/10 01/23/17 [address] [place] [address] documented as of this encounter
--- OUTSIDE RECORDS SUMMARY | 2021-12-24 14:50 | XMS_ITS | Encounter Summary ---
:1955 [place] [address] Care Team Providers Name Role Phone Christine [...] Expiration Date Visits Requ ested Visits Authorized [id number] 1 1 Encounter Details Date Type Department Care Team Description 03/30/2017 Anesthesia Event Outpatient Surgery Joey Pham MD [facility] [place] [address] [place] Vahid Roe MD [facility] [place] [address] [facility] [place] [address] Anesthesia Record Procedure Summary Procedure Name Responsible Anesthesia Start Anesthesia Stop Time Anesthesiologist Time EXCISION LESION, Joey Pham MD 03/30/17 1244 03/30/17 140 8 BREAST W/ PREOP.MARKER (NEEDLE LOC.) (WRVU 6.69) (Left Axilla) Events Date Time Event Comment 03/30/2017 1107 1244 Start 1245 AN Verify 1245 An Start Data 1249 Anesthesia Ready 1305 Skin Incision Local infiltrate d by surgeon prior to incision 1401 an stop data 1407 Recovery or ICU Handoff Patient care was transferred to the destination unit staff after review of the patient's medica l history, current anesthetic/surgi chel status and plan, according to the Provider Handoff Checklist. 1408 Stop Name Total Midazolam 2 mg fentaNYL 100 mcg Propofol INF 589.82 mg ceFAZolin (ANCEF) 2g in dextrose 5% 100 mL 2 g Dexmedetomidine 16 mcg PHENYLephrine 320 mcg lactated Ringers infusion 1,000 mL 1,000 mL Agents Name O2 Air N2O O2 Auxiliary Flowmeter 1 Blood No blood administrations on file. Lines, Drains, and Airways Type Details Placement Removal PIV 03/30/17; 1011; median 03/30/17 1011 by 03/30/17 1450 by cubital vein (antecubital Vahid Jurado R N MacDonald, Kenneth A, fossa), right; 20 gauge; RN intradermal injection, tolerated well; 03/30/17; 1450 Incision 03/30/17; 1304; breast; 03/30/17 1304 by [place], 10/18/21 1715 by 10/18/21 (LDA cleanup DAVID Barragan Di erdre L utility RA#[id number]); 1715 (LDA cleanup utility RA#[id number]) documented in this encounter Social History Tobacco [...] encounter OR Notes Anesthesia Postprocedure Evaluation - Joey Pham MD - 03/30/2017 2:19 PM EST [facility] [place] Department of Anesthesiology Post-procedure Note Patient: Cecilia Marx Procedure Summary Date Anesthesia Start Anesthesia Stop Room / Location 03/30/17 1244 1408 [facility] OR / [facility] Procedure Diagnosis Surgeon Responsible Provider EXCISION LESION, BREAST W/ PREOP.MARKER (NEEDLE LOC.) (WRVU 6.69) (Left Axilla); MODIFIER WITH NEEDLE LOC., LESION #1 (Left Breast) (LEFT BREAST COMPLEX SCLEROSING LESION) Marla Brice MD Nguyen, Tung T, MD All Anesthesia Providers: Anesthesiologist: Joey Pham MD SOFTWARE COMPUTER SPECIALIST: Chapis Santoro CRNA Most Recent Vitals: 03/30/17 1404 BP: 115/79 Pulse: 89 Resp: 16 Temp: 36.8 ??C (98.2 ??F) SpO2: 93% Pain 0 (03/30/17 1404) Patient Location: PACU/[facility] Level of Consciousness: Awake and Alert Pain Management: Satisfactory Analgesia PONV: None Cardiovascular Status: At Baseline Respiratory Status: At Baseline Postoperative Fluid Status: Intravascular EUvolemia Possible Anesthetic Complications: NONE apparent at time of evaluation Final Primary Anesthesia Type: MAC (The anesthetic type performed was the same as planned.) Comments: Anesthesia Preprocedure Evaluation - Joey Pham MD - 03/30/2017 10:47 AM EST Pre-Anesthesia Evaluation for: Cecilia Marx a 62 y.o. female. Procedure(s): EXCISION LESION, BREAST W/ PREOP.MARKER (NEEDLE LOC.) (WRVU 6.69) MODIFIER WITH NEEDLE LOC., LESION #1 Past Surgical History: Procedure Laterality Date ??? 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 Smoking status: Former Smoker Quit date: 10/19/2011 ??? Smokeless tobacco: Never Used ??? Alcohol use Not on file Comment: very rare History Drug Use No Allergies Allergen Reactions ??? Nitrofurantoin Monohyd/M-Cryst Rash,( Macrobid) Medications: MAR and/or home medications have been reviewed. Physical Exam: Most Recent Vitals: 03/30/17 0957 BP: 143/89 Pulse: 86 Resp: 18 Temp: 36.9 ??C (98.4 ??F) SpO2: 98% Body mass index is 29.64 kg/(m^2). Height: 161.3 cm (5' 3.5) Weight: 77.1 kg (170 lb) Airway Assessment: Mallampati: II TM distance: >3 FB Neck ROM: full Cardiovascular Assessment: Rhythm: regular Rate: normal Pulmonary Assessment: breath sounds clear to auscultation Dental Assessment: - normal exam Misc Assessment: Patient is wearing No contact(s). IV access: Peripheral line Anesthesia Plan: ASA 2 MAC, with a(n) intravenous induction Region - Other Informed Consent: Anesthetic plan and risks discussed with patient and spouse. Plan discussed with SOFTWARE COMPUTER SPECIALIST. PAT Staff Note Attending NOTE Brief HPI: 62 y.o. with LEFT breast lesion to OR for excision Diagnosis ??? Breast cancer ??? Depression ??? Hypothyroidism ??? Migraines METS:>4 Cardiac Symptoms: denies EKG: none ECHO: none LABS: none Type and Screen: No results found for: ABORH Past anesthetic problems: denies Previous airway notes (on eDH): none NPO status: Reviewed and appropriate Anesthetic Plan: MAC; GA backup Monitoring: Standard ASA monitors documented in this encounter Plan of Treatment Not on filedocumented as of this encounter Visit Diagnoses Not on filedocumented in this encounter Administered Medications Inactive Administered Medications - up to 3 most recent administrations Medication Order MAR Action Action Date Dose Rate Site ceFAZolin (ANCEF) 2g in dextrose 5% Given 03/30/2017 12:46 PM ES T 2 g 100 mL 2 g, Intravenous, BLACK TOP ROLLER TO O.R., 1 dose, On Arpita 03/30/17 at 1300, Administer over 30 Minutes, Indication for (Active or Suspected): Prophylaxis dexmedetomidine (PRECEDEX) injection Given 03/30/2017 1:01 PM EST 4 mcg PRN, Starting on Arpita 218 at 1246, Until Arpita 2 at 1412, Anesthesia Intra-op, Routine Given 03/30/2017 12:58 PM EST 4 mcg Given 03/30/2017 12:51 PM EST 4 mcg fentaNYL 50 mcg/mL multi-dose injection Given 03/30/2017 1:01 PM EST 25 mcg PRN, Starting on Arpita 18 at 1246, Until Arpita 03/30/17 at 1412, Pain, Anesthesia Intra-op, Routine Given 03/30/2017 12:58 PM EST 25 mcg Given 03/30/2017 12:51 PM EST 25 mcg lactated Ringers infusion 1,000 mL New Bag 03/30/2017 1:51 PM EST 1,000 mL, at 100 mL/hr, Intravenous, CONTINUOUS, Starting on Arpita 03/30/17 at 1030, Until Arpita 03/30/17 at 1702, Day of Surgery (Day of Procedure) New Bag 03/30/2017 10:23 AM EST 1,000 mLs 100 mL/hr New Bag 03/30/2017 10:14 AM EST 1,000 mLs 100 mL/hr midazolam (PF) (VERSED) 1 mg/mL multi-dose Given 03/30/2017 12:5 4 PM EST 2 mg injection PRN, Starting on Arpita 03/30/17 at 1254, Until Arpita 18 at 1412, Sleep, Anesthesia Intra-op, Routine PHENYLephrine in NS (PF) (ALAYNA-SYNEPHRINE) Given 03/30/2017 1:41 PM EST 160 mcg 0.8 mg/10 mL (80 mcg/mL) multi-dose injection Syrg PRN, Starting on Arpita 218 at 1313, Until Arpita 18 at 1412, Anesthesia Intra-op, Routine Given 03/30/2017 1:13 PM EST 160 mcg propofol (DIPRIVAN) Rate/Dose 03/30/2017 1:36 75 mcg/kg/min 34.7 mL/ hr infusion Change PM EST CONTINUOUS PRN, Starting on Arpita 03/30/17 at 1247, Until Arpita 2/8/18 at 1412, Anesthesia Intra-op, Routine Rate/Dose Change 03/30/2017 1:16 PM EST 100 mcg/kg/min 46.3 mL/hr Rate/Dose Change 03/30/2017 1:07 PM EST 125 mcg/kg/min 57.8 mL/hr documented in this encounter Care Teams Print Finisher Relationship Specialty Start Date End Date Christine Fuentes PA PCP - General Family Medicine 01/24/17 10/08/19 [address] [place] [address] documented as of this encounter
--- OUTSIDE RECORDS SUMMARY | 2021-12-24 14:50 | XMS_ITS | Encounter Summary ---
:1955 Author Organization [facility] [place] [address] Care Team Providers Name Role Phone Spike Sierra MD Primary Care Provider Reason for Visit Reason Comments Radiation Follow-up Encounter Details Date Type Department Care Team Description 12/19/2011 Follow-Up Radiation Oncology at Danielle Fair MD Breast CA (Primary Dx) [address] [place], [place] RADIATION ONCOL OGY [address] [place] [address] [phone] (Wo rk) Social History Tobacco Use Types Packs/Day Years Used Date Former Smoker Quit: 10/19/19 12 Sex Assigned at Date Recorded Not on file documented as of this encounter Last Filed Vital Signs Vital Sign Reading Time Taken Comments Blood Pressure 116/80 12/19/2011 3:00 PM EDT Pulse 76 12/19/2011 3:00 PM EDT Temperature - - Respiratory Rate - - Oxygen Saturation 97% 12/19/2011 3:00 PM EDT Inhaled Oxygen Concentration - - Weight - - Height - - Body Mass Index - - documented in this encounter Patient Instructions Patient InstructionsEma Fair MD - 12/19/2011 3:40 PM EDT Your exam today is good. We will mail you a letter in 11 months with an appointment to see me in 1 year. documented in this encounter Progress Notes Nathaniel, Project Manager Senior - 12/20/2011 7:11 PM EDT Ema Fair MD - 12/19/2011 3:23 PM EDT Subjective: Patient ID: Cecilia Marx is a 56 y.o. female who is 19.5 mos s/p xrt. 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 Hormonal tx not rec'd. MRI not rec'd. Sched'd FU today. 11/21/11 B mmg, done @ [facility], requested by Dr. Forrester, whom she recently saw in FU. She reports that the mmg was ok. Review of Systems: No pain. No problem w/breasts. Appetite ok. Energy level ok. Objective: Physical Exam Constitutional: She is oriented [...] discharge, no skin change and no tenderness. Minimal hyperpigmentation of R breast. Abdominal: Soft. She exhibits [...] thought content normal. Assessment and Plan: [place]. Request mmg report from [facility]. I rec'd FU in 6 mos, however, she says she will be seeing Dr. Forrester in 6 mos & asks if she can return to see me in 1 yr, & I informed her this would be ok provided she is doing well & continues FU w/Dr. Forrester. No problem-specific visit notes found for this encounter. documented in this encounter Plan of Treatment Not on filedocumented as of this encounter Visit Diagnoses Diagnosis Breast CA - Primary Malignant neoplasm of breast (female), u nspecified site documented in this encounter Care Teams Crosstie Inspector Relationship Specialty Start Date End Date Spike Sierra MD PCP - General 01/12/10 01/23/17 [address] [place] [address] documented as of this encounter
--- OUTSIDE RECORDS SUMMARY | 2021-12-24 14:50 | XMS_ITS | Encounter Summary ---
:1955 [place] [address] Care Team Providers Name Role Phone Spike Sierra MD Primary Care Provider Encounter Details Date Type Department Care Team Description 07/01/2015 Hospital Encounter Radiology Library at Landen Nicolas [facility] [place] [facility] [address] DIAGNOSIC RADIOLOGY [phone] [place] [address] (Wo rk) Social History Tobacco Use Types [...] Associated Diagnosis Comme nts FILM LIBRARY Routine 07/01/2015 12:00 AM Results for this STORAGE ONLY MAMMO EDT procedure are in the results section. documented in this encounter Results Film Library- Storage Only Mammo (07/01/2015 12:00 AM EDT) Specimen (Source) Anatomical Location Collection Method / Collectio n Time Received Time / Laterality Volume Narrative RAD - 01/13/2017 9:05 AM EST This exam is for storage only and is aut o-finalizing. Spike Nicolas MD IMG FILM LIBRARY ORDERABLES Performing Organization Address City/State/ZIP Code Phon e Number [place], [place] documented in this encounter Visit Diagnoses Not on filedocumented in this encounter Care Teams Trial Attorney Relationship Specialty Start Date End Date Spike Sierra MD PCP - General 01/12/10 01/23/17 [address] [place] [address] documented as of this encounter
--- OUTSIDE RECORDS SUMMARY | 2021-12-24 14:50 | XMS_ITS | Encounter Summary ---
:1955 [place] [address] Care Team Providers Name Role Phone Spike Sierra MD Primary Care Provider Encounter Details Date Type Department Care Team Description 01/06/2017 Hospital Encounter Radiology Library at Landen Nicolas, [facility] [place] [place] [place] [address] DIAGNOSIC RADIOLOGY [phone] [place] [address] (Wo rk) Social History Tobacco Use Types [...] Diagnosis Comme nts FILM LIBRARY Routine 01/06/2017 12:05 AM Results for this STORAGE ONLY MAMMO EST procedure are in the results section. documented in this encounter Results Film Library- Storage Only Mammo (01/06/2017 12:05 AM EST) Specimen (Source) Anatomical Location Collection Method / Collectio n Time Received Time / Laterality Volume Narrative RAD - 01/10/2017 4:31 PM EST This exam is for storage only and is aut o-finalizing. Spike Nicolas MD [facility] FILM LIBRARY ORDERABLES Performing Organization Address City/State/ZIP Code Phon e Number [place], [place] documented in this encounter Visit Diagnoses Not on filedocumented in this encounter Care Teams Temporary Help Agency Referral Clerk Relationship Specialty Start Date End Date Spike Sierra MD PCP - General 01/12/10 01/23/17 [address] [place] [address] documented as of this encounter
--- OUTSIDE RECORDS SUMMARY | 2021-12-24 14:50 | XMS_ITS | Encounter Summary ---
:1955 Author Organization [facility] [place] [address] Care Team Providers Name Role Phone Spike Sierra MD Primary Care Provider Encounter Details Date Type Department Care Team Description 04/08/2014 Ancillary Appointment Hematology Oncology at [facility]zel Payne [facility] [address] [place] [id number] Social History Tobacco Use Types Packs/Day Years Used Date Former Smoker Quit: 10/19/19 12 Sex Assigned at Date Recorded Not on file documented as of this encounter Progress Notes Denzel Payne, MUMTAZ - 04/08/2014 1:10 PM EST [facility] Dietitian Follow Up Assessment Seen By: Elida Payne, , RD, INCENDIARY POWDER MIXER, LD Reason for visit: Wanting to lose [...] 12/26/2013 Weight 77.565 kg Temp 97.9 Wt: 160 lbs on 04/08/14; down 2 lbs Previous Wts: 162 lbs on 03/07/14; down 1 lbs. Down 3 lbs last week, weighed today [...] needs: 1.5 - 2 L Food Intake: [place] she fell off the wagon in February with her birthday, super bowl, and winter. She then got the flu for 2 weeks and hasn't been moving. She is also depressed and this doesn't help. Am: cereal (Life) skim milk, raspberries, herbal tea. May have eggs and toast. Noon: can of Anti-Microbial Solutionso lite soup and pickels Pm: lean cuisine [...] Jignesh treadmill, but has gotten up to 20 min. Wants to get up to 30 min. Walked Caesar T. 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 Level of Motivation/Readiness to Change: Contemplation/Action Nutrition Diagnosis: Weighing herself at home. Lost 13 lbs total. Her has lost 16 lbs so far. Wants to get back on track with eating and exercise (now up to 20 min/treadmill). She was logging calories for about thest , likes BringIt and LookSharp (powering InternMatch) and the meal suggestions, but didn't feel she could follow it to the T. She likes the suggestions, but wants more of the control (i.e. Menu says shelley eduardo wants left overs). Walking on the treadmill [...] levels, if suboptimal in 3-6 mos. The [facility] series from [facility] [place] September 2008 showed a lower risk of [...] her, and she is doing better -- Would like to be out of the 160s when she returns in April. -- Increasing time on treadmill. She wants to move more. We reviewed workout dvds, websites with videos (Snap Fitness) -- Holding herself accountable. Log/Count calories (using calorieking) - will try for 1200 and if too hungry will go to 1400. -- pedometer was given on 04/08/14. She will track 3 days of steps and build from there for steps to a goal of 10,000. Educational Handouts provided: -- Healthier substitutions: A Dietitian's Guide -- Healthy holiday substitutions chart -- Smart snacking for Adults and Teens (AND) -- Stop Stress Eating -- Healthy millwright helper (PrivateFly) -- pedometer Other Recommendations: Monitoring and Evaluation: Will follow up with Mrs. Marx in one week (s) to re-evaluate. documented in this encounter Plan of Treatment Not on filedocumented as of this encounter Visit Diagnoses Not on filedocumented in this encounter Care Teams Director Music Relationship Specialty Start Date End Date Spike Sierra MD PCP - General 01/12/10 01/23/17 [address] [place] [address] documented as of this encounter
--- OUTSIDE RECORDS SUMMARY | 2021-12-24 14:53 | XMS_ITS ---
:1955 Author Organization [facility] Address [address], [address] [place] [address] Care Team Providers Name Role Phone Drea Argueta Unavailable Unavailable PROBLEMS Type Condition ICD9-CM Code [id number] Onset Condition SNOMED Code Code Dates Status Problem Postmenopausal N95.2 Active 48151 000 atrophic vaginitis Problem Rectocele N81.6 Active [id number] ALLERGIES Substance Reaction Event Type Date Status Macrobid Unknown Drug Allergy Aug, Active Ambien Unknown Drug Allergy Aug, Active ENCOUNTERS Encounter Location Date Diagnosis [facility] [address] [place] [address], [address] Aug, 2018 Rect ocele N81.6 [address] [place], [place] Postmenop ausal atrophic [id number] vaginitis N95.2 IMMUNIZATIONS No Known Immunizations SOCIAL [...] VISIT new pt; rectocele consult Insurance Providers [facility] Member Patient Patient Patient Patient Patient Subscriber Subscriber Subscriber Group Insurance Plan Plan Plan Plan ID Relationship Address Phone Name Date of ID Name Date of No Type Insurance Insurance Insurance Coverage to Subscriber Address Phone Name Dates [place] [phone] [place] self Cecilia [id number] [address] [place] [address]
== END ==
PROVIDERS: PCP Physician Assistant Medical; Visit Provider Physician Assistant
DX: S63.501A Unspecified sprain of right wrist, initial encounter (principal); X58.XXXA Exposure to other specified factors, initial encounter
CPT/HCPCS: 73110

== ENCOUNTER 2022-01-10 09:10 | Outpatient (CLI) | payer MEDICARE, SELFPAY ==
--- NOTE | 2022-01-10 08:30 | DI.RAD_ITS ---
Exam(s) XR WRIST RT COMPL NAVICULAR EXAM: XR WRIST RT COMPL NAVICULAR CLINICAL HISTORY: RIGHT WRIST INJURY. TECHNIQUE: 2D digital imaging was performed. Three views. COMPARISON: CR XR WRIST RT COMPLETE from 12/24/2021 FINDINGS: BONES: No acute fracture is present. Navicular appears intact. No bony destructive lesion is seen. JOINTS: The carpal bones are normally aligned. SOFT TISSUE: Normal. IMPRESSION: Unremarkable radiographs of the right wrist. DATA REPOSITORY: RADIATION DOSE DELIVERED:
== END 2022-01-10 09:11 | disposition home or self-care (01) ==
LOC: DIORS 09:10
PROVIDERS: PCP Physician Assistant Medical; Referring Provider Physician Assistant Medical; Visit Provider Student in an Organized Health Care Education/Training Program
DX: S69.91XA Unspecified injury of right wrist, hand and finger(s), initial encounter (principal); W19.XXXA Unspecified fall, initial encounter
CPT/HCPCS: 99213; 73110

== ENCOUNTER 2022-02-10 10:06 | Outpatient (CLI) | payer MEDICARE, SELFPAY ==
--- NOTE | 2022-02-10 08:00 | DI.RAD_ITS ---
Exam(s) XR WRIST RT COMPL NAVICULAR EXAM: XR WRIST RT COMPL NAVICULAR CLINICAL HISTORY: right wrist f/u. TECHNIQUE: 2D digital imaging was performed. Three views. COMPARISON: CR XR WRIST RT COMPL NAVICULAR from 01/10/2022 FINDINGS: BONES: There is mildly increased sclerosis in the distal radius which is consistent with some callus formation around a nondisplaced fracture. The navicular appears normal. No bony destructive lesion is seen. JOINTS: The carpal bones are normally aligned. SOFT TISSUE: Normal. IMPRESSION: Healing subacute fracture distal radius. DATA REPOSITORY: RADIATION DOSE DELIVERED:
== END 2022-02-10 10:07 | disposition home or self-care (01) ==
LOC: DIORS 10:07
PROVIDERS: PCP Physician Assistant Medical; Referring Provider Physician Assistant Medical; Visit Provider Student in an Organized Health Care Education/Training Program
DX: S69.91XD Unspecified injury of right wrist, hand and finger(s), subsequent encounter (principal); X58.XXXD Exposure to other specified factors, subsequent encounter
CPT/HCPCS: 99213; 73110

== ENCOUNTER 2022-02-22 04:04 | Outpatient (CLI) | payer MEDICARE, SELFPAY ==
[2022-02-22 08:44] LABS: HCT 42.5 % (36.0-46.0); HGB 14.1 g/dL (11.2-15.7); MCH 30.3 pg (27.0-33.0); MCHC 33.2 % (32.0-36.0); MCV 91 fL (80-95); MPV 10.3 fL (8.0-11.0); Platelet Count 226 10^3/uL (130-400); RBC 4.65 10^6/uL (3.93-5.22); RDW 12.3 % (11.7-14.6); RDW-SD 41.5 fL; WBC 5.08 10^3/uL (4.4-10.8)
[2022-02-22 09:22] LABS: ALT 22 U/L (14-59); AST 19 U/L (15-37); Albumin 3.8 g/dL (3.4-5.0); Alkaline Phosphatase 80 U/L (46-116); Anion Gap 7.5 mmol/L (3-11); BUN 16 mg/dL (7-18); Bilirubin, Total 0.4 mg/dL (0.2-1.0); CO2 28.5 mmol/L (21.0-32.0); CREATININE 1.1 mg/dL (0.55-1.02); Calcium 9.6 mg/dL (8.5-10.1); Calculated LDL 170 mg/dL (<100); Chloride 105 mmol/L (98-107); Cholesterol 276 mg/dL (<200); Estimated GFR 55.76 (mL/min/1.73m2); Glucose 105 mg/dL (74-106); HDL Cholesterol 64 mg/dL (40-60); Potassium 4.3 mmol/L (3.5-5.1); Sodium 141 mmol/L (136-145); TSH 0.21 uIU/mL (0.36-3.74); Total Protein 7.7 g/dL (6.4-8.2); Triglyceride 214 mg/dL (<150)
[2022-02-22 10:31] LABS: Hemoglobin A1C 5.6 % (<5.7)
== END 2022-02-22 04:05 | disposition home or self-care (01) ==
LOC: LBO 04:04
PROVIDERS: PCP Physician Assistant Medical; Visit Provider Physician Assistant Medical
DX: R79.89 Other specified abnormal findings of blood chemistry (principal); E03.9 Hypothyroidism, unspecified
CPT/HCPCS: 36415; 80053; 80061; 85027; 83036; 84443

== ENCOUNTER → 2022-03-10 08:02 | Outpatient (BNVA) | payer MEDICARE, SELFPAY | PROVIDERS: PCP Physician Assistant Medical; Referring Provider Physician Assistant Medical; Visit Provider Student in an Organized Health Care Education/Training Program | DX: S52.501D Unspecified fracture of the lower end of right radius, subsequent encounter for closed fracture with routine healing (principal); W19.XXXD Unspecified fall, subsequent encounter | CPT/HCPCS: 99212 ==

== ENCOUNTER 2022-04-20 16:35 | Outpatient (REF) | payer MEDICARE, SELFPAY ==
[2022-04-20 15:11] LABS: TSH (W/Ref FT4) 0.25 uIU/mL (0.36-3.74)
[2022-04-20 15:31] LABS: FREE T4 0.96 ng/dL (0.76-1.46)
== END 2022-04-20 16:36 | disposition home or self-care (01) ==
LOC: NCHCN 16:35
PROVIDERS: PCP Physician Assistant Medical; Visit Provider Family Medicine
DX: E03.9 Hypothyroidism, unspecified (principal)
CPT/HCPCS: 84439; 84443

== ENCOUNTER 2022-06-30 10:49 | Outpatient (CLI) | payer MEDICARE, SELFPAY ==
[2022-06-30 11:15] LABS: TSH 0.41 uIU/mL (0.36-3.74)
== END 2022-06-30 10:50 | disposition home or self-care (01) ==
LOC: LBO 10:56
PROVIDERS: PCP Family Medicine; Visit Provider Family Medicine
DX: E03.9 Hypothyroidism, unspecified (principal)
CPT/HCPCS: 36415; 84443

== ENCOUNTER 2022-08-31 09:57 | Outpatient (REF) | payer MEDICARE, SELFPAY ==
--- NOTE | 2022-08-31 08:30 | SKI_PTH ---
PATIENT: Cecilia Marx LOC: NCN #:[id number] AGE/SX: 67/F ROOM: RE08/31/[address]: Treva De Jesus : 1955 BED: DIS: 08/31/2022 SPEC #: [id number] RECD: 08/31/22 16:56 STATUS: LENCHO MARTIN #: [id number] RUTH: 08/31/22 08:[address]: Treva De Jesus DEPT: Surgical Specimen RECD BY: Barby Shafer Tissues: 1 - SKIN BIOPSY(SHAVE/PUNCH) 2 - SKIN BIOPSY(SHAVE/PUNCH) Procedures: SKIN LEVEL 4 Comments: [id number]
[2022-08-31 15:40] LABS: TSH (W/Ref FT4) 0.57 uIU/mL (0.36-3.74)
== END 2022-08-31 09:58 | disposition home or self-care (01) ==
LOC: NCHCN 09:57
PROVIDERS: PCP Family Medicine; Visit Provider Family Medicine
DX: L82.1 Other seborrheic keratosis (principal); E03.9 Hypothyroidism, unspecified; D22.5 Melanocytic nevi of trunk
CPT/HCPCS: 84443; 88305

== ENCOUNTER 2023-02-08 13:21 | Outpatient (REF) | payer MEDICARE, SELFPAY ==
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
[2023-02-08 21:13] LABS: ALT 31 U/L (14-59); AST 19 U/L (15-37); Albumin 3.9 g/dL (3.4-5.0); Alkaline Phosphatase 75 U/L (46-116); Anion Gap 8.7 mmol/L (3-11); BUN 24 mg/dL (7-18); Bilirubin, Total 0.2 mg/dL (0.2-1.0); CO2 25.3 mmol/L (21.0-32.0); Calcium 9.4 mg/dL (8.5-10.1); Calculated LDL 148 mg/dL (<100); Chloride 105 mmol/L (98-107); Cholesterol 255 mg/dL (<200); Estimated GFR 62.13 (mL/min/1.73m2); Glucose 96 mg/dL (74-106); HDL Cholesterol 55 mg/dL (40-60); Potassium 4.4 mmol/L (3.5-5.1); Sodium 139 mmol/L (136-145); TSH (W/Ref FT4) 1.12 uIU/mL (0.36-3.74); Total Protein 7.6 g/dL (6.4-8.2); Triglyceride 263 mg/dL (<150)
[2023-02-08 21:29] LABS: Vitamin D 25 Total 22.4 ng/mL (30-100)
== END 2023-02-08 13:22 | disposition home or self-care (01) ==
LOC: NCHCN 13:21
PROVIDERS: PCP Family Medicine; Visit Provider Family Medicine
DX: E03.9 Hypothyroidism, unspecified (principal); M81.0 Age-related osteoporosis without current pathological fracture; R10.9 Unspecified abdominal pain; Z13.220 Encounter for screening for lipoid disorders
CPT/HCPCS: 80053; 80061; 82306; 84443

== ENCOUNTER → 2023-03-08 01:47 | Outpatient (CLI) | payer MEDICARE, SELFPAY ==
--- OUTSIDE RECORDS SUMMARY | 2023-03-07 15:56 | XMS_ITS | Patient Health Record ---
Author Name Unknown Organization [facility] Address [address] [place] [address] Care Team Providers Care Sales Producer Name Role Phone Christine Fuentes Primary Care Provider Unavaila Drea Vogel MD Unavailable ALLERGIES Allergen (clinical drug ingredient) Drug/Non Drug [...] confirmed Everette iation of rectum into vagina ([id number]) Problem Postmenopausal atrophic vaginitis (N95.2) Active confirmed Postmenopa usal atrophic vaginitis ([id number]) PLAN OF TREATMENT No Information Insurance Providers Payer Name Payer Address Payer Phone Subscriber Number Group Number Insured Name Patient Relationship to Insured Coverage Start Date Coverage End Date [place] [address] [place] [phone] [id number] 1000 Araseli Cecilia Self - patient is [...]
--- NOTE | 2023-03-08 | DI.MRI_ITS ---
Exam(s) MR BRAIN WO EXAM: MR BRAIN WO CLINICAL HISTORY: R90.82 White matter disease,unspecified TECHNIQUE: Multiplanar multisequence MRI of the brain was performed. COMPARISON: CT CT HEAD WO from 10/29/2019 FINDINGS: CEREBRAL PARENCHYMA: There is no evidence of intracranial hemorrhage, mass effect, or shift of midline structures. There are no extra-axial fluid collections. Ventricles are not enlarged or shifted. There is no significant focal signal abnormality in the cerebellar hemispheres nor within the lachelle, m idbrain, and thalami. There are bilateral areas of FLAIR bright signal abnormality in the periventricular regions, not asso ciated with hemorrhage, surrounding edema, nor restricted diffusion. The largest of these abnormal s ignal foci correspond to subtle areas of bilateral hypodensity on brain CT scan of 10/29/2019. Appea rs similar size to that CT scan. There is no significant focal signal abnormality evident on diffusion imaging to suggest acute ischem ic event. PITUITARY GLAND: No mass nor parasellar abnormality. No obvious abnormality in the cavernous sinuses. FLOW VOIDS: The expected flow void are noted. No evidence of obvious aneurysm nor obvious vascular ma lformation. PARANASAL SINUSES: The visualized paranasal sinuses appear unremarkable. No obvious finding ORBITS: No obvious findings. IMPRESSION: There are bilateral FLAIR bright foci of periventricular white matter which are not associated with h emorrhage, surrounding edema nor restricted diffusion to suggest acute ischemic event. Indeed, these findings appear to have been present on CT scan of 10/29/2019. probably related to chronic ischemic changes. Demyelinating disease starting at this age group would be somewhat unconventional. Recommend follow-up MRI in 6 months. DATA REPOSITORY:
== END ==
PROVIDERS: PCP Family Medicine; Visit Provider Family Medicine
DX: R90.82 White matter disease, unspecified (principal)
CPT/HCPCS: 70551

== ENCOUNTER → 2023-03-09 01:30 | Outpatient (CLI) | payer MEDICARE, SELFPAY ==
--- NOTE | 2023-03-09 | ETT_ITS ---
APPROVED REPORT Exam: Pharmacologic Patient Location: Out-Patient Room/Bed: Stress Nurse: Deb Austin RN Ordering Provider:YEHUDA MERY, Contact Number: [phone] BMI: 27.45 Baseline Rhythm: Sinus Rhythm Indications: RODRIGUEZ Medical History Medical History: IBS, Diverticulosis, hypoglycemia, depression, non-alcoholic fatty liver disease, ki dney stones, hypothyroidism, HLD, bilateral masectomy, exertional dizziness Cardiac Medications: Amitriptyline, buproprion, escitalopram, estradiol, levothyroxine, magnesium Allergies: Nitrofurantoin, zolpidem Cardiac Risk Factors: HLD Previous Cardiac Procedures: None Pretest Chest Pain Characteristics: None Exercise History: Indeterminate Physical Disabilities: None Lung Sounds: Clear to auscultation Heart Sounds: Regular Stress Test Details Test: Exercise stress testing was performed using a Lupillo protocol. Rest Stress HR Resting HR Supine: 72 bpm Max Heart Rate (APMHR): 154 bpm Resting HR Standin bpm Target HR (85% APMHR): 131 bpm Max HR Achieved: 135 bpm % of APMHR: 88 Recovery HR: 83 bpm HR response to stress: Normal HR response to stress BP Resting BP Supine: 110/80 mmHg Resting BP Standin/86 mmHg Max BP: 162/90 mmHg Recovery BP: 120/84 mmHg BP response to stress: Normal blood pressure response to stress. ECG Resting ECG: Sinus Rhythm Ectopy: None Stress ECG: Sinus Rhythm, Sinus Tachycardia ST Change: No significant ST segment changes noted Arrhythmia: None Recovery ECG: Sinus Rhythm Recovery ST Change: No significant ST segment changes noted Recovery Arrhythmia: None Clinical Reason for Termination: Fatigue Stress Symptoms: None Exercise duration: 7 min11 sec Highest Stage Reached: Stage 3: 3.4 mph at 14% grade. Exercise capacity: 8.88 METs Angina Score: None Haider Treadmill Score: 6.1 Rate Pressure Product: 31588 Stress ECG Conclusion 1. Normal clinical,HR,BP and ECG responses to exercise. 2. Impression: Negative for inducible ischemia. Haider Treadmill Score is 6.1 which is Low risk. Stress Test Summary STAGE Time (mins) Speed (mph) Grade (%) HR BP SpO2 SYMPTOMS METS Supine 72 110/80 96 Standing 80 124/86 1 3 1.7 10 106 112/86 97 4.5 2 6 2.5 12 120 138/84 96 7 1 min recovery 125 140/82 94 3 min recovery 94 162/90 98 6 min recovery 83 120/84 98
--- OUTSIDE RECORDS SUMMARY | 2023-03-10 11:20 | XMS_ITS | Patient Health Record ---
Author Name Unknown Organization [facility] Address [address] [place] [address] Care Team Providers Care Wire Rigger Name Role Phone Christine Fuentes Primary Care [...] confirmed Everette iation of rectum into vagina ([id number]) Problem Postmenopausal atrophic vaginitis (N95.2) Active confirmed Postmenopa usal atrophic vaginitis ([id number]) PLAN OF TREATMENT No Information Insurance Providers Payer Name Payer Address Payer Phone Subscriber Number Group Number Insured Name Patient Relationship to Insured Coverage Start Date Coverage End Date [place] [address] [place] [phone] [id number] [address]eli Cecilia Self - patient is [...]
== END ==
PROVIDERS: PCP Family Medicine; Visit Provider Family Medicine
DX: R06.09 Other forms of dyspnea (principal)
CPT/HCPCS: 93016; 93018; 93017

== ENCOUNTER 2023-05-10 14:50 | Outpatient (REF) | payer MEDICARE, SELFPAY ==
[2023-05-10 14:29] LABS: HCT 42.8 % (36.0-46.0); HGB 14.2 g/dL (11.2-15.7); MCH 30.3 pg (27.0-33.0); MCHC 33.2 % (32.0-36.0); MCV 92 fL (80-95); MPV 11.3 fL (8.0-11.0); Platelet Count 233 10^3/uL (130-400); RBC 4.68 10^6/uL (3.93-5.22); RDW 13.2 % (11.7-14.6); RDW-SD 44.2 fL; WBC 6.12 10^3/uL (4.4-10.8)
[2023-05-10 14:36] LABS: Iron 67 ug/dL (50-170); Total Iron Binding Capacity 340 ug/dL (250-450); Transferrin Sat 20 % (15-50)
[2023-05-10 15:00] LABS: Ferritin 135 ng/mL (8-252); TSH 2.73 uIU/Ml (0.36-3.74)
[2023-05-10 16:26] LABS: FREE T4 0.86 ng/dL (0.76-1.46)
[2023-05-10 22:28] LABS: T3, Total 119 ng/dL (97-169)
== END 2023-05-10 14:51 | disposition home or self-care (01) ==
LOC: NCHCN 14:50
PROVIDERS: PCP Family Medicine; Visit Provider Family Medicine
DX: E03.9 Hypothyroidism, unspecified (principal)
CPT/HCPCS: 85027; 82728; 83540; 83550; 84439; 84443; 84480

== ENCOUNTER 2023-06-29 13:35 | Outpatient (REF) | payer MEDICARE, SELFPAY ==
[2023-06-29 21:19] LABS: Abs Immature Grans 0.06 10^3/uL (0.0-0.06); Absolute Basophil Count 0.06 10^3/uL (0.0-0.2); Absolute Eosinophil Count 0.09 10^3/uL (0.0-0.7); Absolute Lymphocyte Count 3.27 10^3/uL (1.2-3.4); Absolute Monocyte Count 0.52 10^3/uL (0.1-0.8); Absolute Neutrophil Count 4.53 10^3/uL (1.2-6.7); Basophils % 0.7 %; Eosinophils % 1.1 %; HCT 38.7 % (36.0-46.0); HGB 13.1 g/dL (11.2-15.7); Immature Grans % 0.7 %; Lymphocytes % 38.3 %; MCH 30.5 pg (27.0-33.0); MCHC 33.9 % (32.0-36.0); MCV 90 fL (80-95); Monocytes % 6.1 %; Neutrophils % 53.1 %; Platelet Count 356 10^3/uL (130-400); RDW 12.6 % (11.7-14.6); WBC 8.53 10^3/uL (4.4-10.8)
[2023-06-29 21:50] LABS: ALT 32 U/L (14-59); AST 22 U/L (15-37); Albumin 3.6 g/dL (3.4-5.0); Alkaline Phosphatase 75 U/L (46-116); Anion Gap 10.9 mmol/L (3-11); BUN 25 mg/dL (7-18); Bilirubin, Total 0.2 mg/dL (0.2-1.0); C-Reactive Protein 0.79 mg/dL (<or=0.5); CO2 25.1 mmol/L (21.0-32.0); CREATININE 0.9 mg/dL (0.55-1.02); Calcium 9.2 mg/dL (8.5-10.1); Chloride 107 mmol/L (98-107); Estimated GFR 70.07 (mL/min/1.73m2); Glucose 95 mg/dL (74-106); Potassium 4.1 mmol/L (3.5-5.1); Sodium 143 mmol/L (136-145); Total Protein 7.2 g/dL (6.4-8.2)
== END 2023-06-29 13:36 | disposition home or self-care (01) ==
LOC: NCHCN 13:35
PROVIDERS: PCP Family Medicine; Visit Provider Family Medicine
DX: R10.9 Unspecified abdominal pain (principal); E03.9 Hypothyroidism, unspecified
CPT/HCPCS: 80053; 84443; 85025; 86140

== ENCOUNTER → 2023-09-06 13:42 | Outpatient (BNVA) | payer MEDICARE, SELFPAY | PROVIDERS: PCP Family Medicine; Referring Provider Family Medicine; Visit Provider Psychiatry & Neurology Neurology | DX: G25.0 Essential tremor (principal) | CPT/HCPCS: 99214 ==

== ENCOUNTER 2023-12-26 13:08 | Outpatient (REF) | payer MEDICARE, SELFPAY ==
--- OUTSIDE RECORDS SUMMARY | 2023-12-26 13:16 | XMS_ITS | Encounter Summary ---
Author Organization [facility] Address [address] [place] [address] Care Team Providers Care Manager Collection Name Role Phone Christine Fuentes PA-C Primary Care Provider + Encounter Details Date Type Department Care Team (Late st Contact Info) Description 04/10/2017 Results Only [facility] [phone] Luis Ivan PA-C [address] [place] [address] Social History Tobacco Use Types Packs/Day Years Used Date Smoking Tobacco: Never Smokeless Tobacco: Never Alcohol Use Standard Drinks/Week Comments Yes 6 (1 standard drink = 0.6 oz pur e alcohol) Sex and Gender Information Value Date Recorded Sex Assigned at Not on file Gender Identity Not on file Sexual Orientation Not on file documented as of this encounter Plan of Treatment Not on file documented as of this encounter Procedures Procedure Name Priority Date/Time Associated Diagnosis Comments SURGICAL PATHOLOGY Routine 04/10/2017 16 :02 EST documented in this encounter Results * SURGICAL PATHOLOGY (04/10/2017 16:02 EST) Pathology Report: SURGICAL PATHOLOGY REPORT Reports generated via electronic interface contain original data; however they are lacking the format of the original report. Caution should be taken when reading/interpret ing unformatted reports. Name: ? STEVE MARX ? Accession #: ? [id number] ? : ? 1955 (Age: 62) ??F ? Collect Date: ? 04/10/2017 ? Location: ? [facility] ? Receive Date: ? 04/11/2017 ? Provider: LUIS IVAN PAC Copy to: ? Final Pathologic Diagnosis: SKIN OF NECK, LEFT, SHAVE BIOPSY: - Seborrheic keratosis. Document reviewed and electronically signed by: OG BRADSHAW MD Report ??Date: 04/12/2017 14:18 By the signature above, the attending physician certifies that he/she has personally conducted a gross and/or microscopic examination of the described specimens and rendered or confirmed the above diagnosis. Specimen(s) Received: Shave biopsy left neck Clinical History: 4.0 mm, 3D lesion, scaly, brown in color, recently increased in size after 10+ yrs monitoring per patient; likely a seborrheic keratosis Gross Description: ? Received in formalin labelled with proper patient identification (initials R, D) and left neck lesion is an unoriented elliptical excision of james-choe keratotic skin (0.5 x 0.3 cm and is excised to a depth of 0.2 cm). The margins are inked blue. The specimen is bisected and entirely submitted in 1. NNAMDI Faith (ASCP) 04/11/2017 5:10 PM End of Report [facility] 04/10/2017 16:0 2 EST 04/11/2017 16:02 EST Luis Ivan PA-C PATHOLOGY ORDERAB LES [facility] [address] [place] [address] documented in this encounter Visit Diagnoses Not on filedocumented in this encounter Care Teams Manager Collection Relationship Specialty Start Date End Date Christine Fuentes PA-C [address] [place] [address] PCP - General 10/23/16 documented as of this encounter
--- OUTSIDE RECORDS SUMMARY | 2023-12-26 13:16 | XMS_ITS | Encounter Summary ---
Author Organization [facility] Address [address] [place] [address] Care Team Providers Care Hotel Or Motel Cleaning Supervisor Name Role Phone Unknown, Provider Primary Care Provider Unausha ilable Encounter Details Date Type Department Care Team (Late st Contact Info) Description 12/05/2011 Results Only [facility] - [facility] [place] [address] [place], [place] [address] Kayli Engel FNP [address] [place], [place] [address] Social History Tobacco Use Types Packs/Day Years Used Date Smoking Tobacco: Never Assessed Sex and Gender Information Value Date Recorded Sex Assigned at Not on file Gender Identity Not on file Sexual Orientation Not on file documented as of this encounter Plan of Treatment Not on file documented as of this encounter Procedures Procedure Name Priority Date/Time Associated Diagnosis Comments PAP TEST- RESULT ONLY Routine 12/05/2011 0:00 EDT documented in this encounter Results * PAP TEST- RESULT ONLY (12/05/2011 0:00 EDT) Pathology Report: CYTOPATHOLOGY REPORT Reports generated via electronic interface contain original data; however they are lacking the format of the original report. Caution should be taken when reading/interpreti ng unformatted reports. Name: ? STEVE MARX ? Accession #: ? [id number] : ? 1955 (Age: 56) ??F ?Collect Date: ? 12/05/2011 Location: ? [facility] ? Receive Date: ? 12/07/2011 Provider: ?[facility] Copy to: ? Specimen/Source: ?Pap Test, Cervix/Endocervix, ThinPrep Imaging System with manual evaluation Last Menstrual Period: ? DILLON Previous Gynecologic Pathology: ? ASC-US: last pap with -HPV ? SPECIMEN ADEQUACY ? Satisfactory for Evaluation - transformation zone component present GENERAL CATEGORIZATION ? Negative for Intraepithelial Lesion or Malignancy ? Document reviewed and electronically signed by: ? Sharonda Sumner, [place](ASCP) ? Report Date: ??12/13/2011 15:26 End of Report [facility] 12/05/2011 12/07/2011 Kayli Engel [facility] PATHOLOGY ORDERABLES [facility] [address] [place] [address] documented in this encounter Visit Diagnoses Not on filedocumented in this encounter Care Teams Hotel Or Motel Cleaning Supervisor Relationship Specialty Start Date End Date Unknown, Provider, PCP - General 02/02/10 10/22/16 documented as of this encounter
--- OUTSIDE RECORDS SUMMARY | 2023-12-26 13:16 | XMS_ITS | Encounter Summary ---
Author Organization [facility] Address [address] [place] [address] Care Team Providers Care Medical Review Coordinator Name Role Phone Unavailable Primary Care Provider Unavailabl e Encounter Details Date Type Department Care Team (Late st Contact Info) Description 01/28/2010 Results Only [facility] Laboratory Services - [facility] [place] [address] [place], [place] [address] Bautista Emerson, DO [address] [facility] [address] [place], [place] [id number] Social History Tobacco Use Types Packs/Day Years Used Date Smoking Tobacco: Never Assessed Sex and Gender Information Value Date Recorded Sex Assigned at Not on file Gender Identity Not on file Sexual Orientation Not on file documented as of this encounter Plan of Treatment Not on file documented as of this encounter Procedures Procedure Name Priority Date/Time Associated Diagnosis Comments SURGICAL PATHOLOGY Routine 01/28/2010 0:00 EST documented in this encounter Results * SURGICAL PATHOLOGY (01/28/2010 0:00 EST) Pathology Report: SURGICAL PATHOLOGY REPORT ? Reports generated via electronic interface contain original data; ? however they are lacking the format of the original report. ? Caution should be taken when reading/interpreting unformatted reports. ? Name: ? STEVE MARX ? Accession #: ? [id number] ? : ? 1955 (Age: 54) ??F ?Collect Date: ? 01/28/2010 ? Location: ? [facility] ? Receive Date: ? 01/29/2010 ? Provider: BAUTISTA EMERSON DO ? Copy to: KAYLI LUNDBERG MACHINE CLOTH TRIMMER ? Final Pathologic Diagnosis: ? A. ?Breast, right, wire localization excisional biopsy: ? 1. ?? 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 ??See comment. ? - Specimen integrity: ??Intact. ?- Tumor location: ??Location not specified. ?- Tumor position: ??Position not specified. ?- Area of involvement by DCIS is approximately 0.22 cm. ? - DCIS involves one level out a total of thirteen levels submitted ?? for microscopic evaluation. ?- Surgical resection margins: ??Negative; DCIS present: ?- 6.0 mm from anterior margin. ?- 8.0 mm from posterior margin. ?- Greater than 1.0 cm from remaining margins. ? 2. ?Fibrocystic changes including: ??Usual ductal hyperplasia, sclerosing adenosis, columnar cell change, microcyst formation, apocrine metaplasia, ? interlobular fibrosis, papilloma. ?3. ?? Microcalcifications associated with fibrocystic changes. ? 4. ?? Prior biopsy site identified. ? B. ??Breast, right, firm specimens adjacent to specimen A, excisional biopsy: ? 1. ?? No fibrocystic change. ? - Usual ductal hyperplasia. ? - Columnar cell change. ? - Apocrine metaplasia. ? - Microcyst formation. ? - Adenosis. ? 2. ?? Intraductal papilloma. ? C. ?? Breast, right, two other firm areas inferior to specimen A, excisional ?? biopsy: ? 1. ?? Fibrocystic change including: ? - Sclerosing adenosis with microcalcifications. ? - Columnar cell change. ? - Microcyst formation. ? 2. ?? Intraductal papilloma. ? 3. ?? Biopsy site identified. ? Comment: ? This case has been shown at the intradepartmental consultation ? conference. ??( Threlkeld)/mpl ? Document reviewed and electronically signed by: ? LEE MIMS MD ? Report ??Date: 02/03/2010 16:52 ? By the signature above, the attending physician certifies that he/she has ? personally conducted a gross and/or microscopic examination of the described ? specimens and rendered or confirmed the above diagnosis. ? Specimen(s) Received: ? A. ?R breast mass ??silk suture inferior, short Prolene suture superior, and long Prolene suture lateral ? B. ? Firm specimens adjacent to specimen #1 ??silk suture adjacent to silk ? suture in #1 ? C. ? Two other firm areas inferior to specimen #1 ??sutures adjacent to ? specimen #1 ? Clinical History: ? R breast mass; atypical ductal hyperplasia ? Gross Description: ? Received in formalin labelled Steve Marx and #1 breast mass, right ?? is a 46.6 gram oriented product of a right lumpectomy which measures 4.7 cm from superior to inferior, 7.0 cm from medial to lateral, and 2.4 cm from anterior to posterior. ??The specimen is oriented as per the requisition, which designates ?? the silk suture as inferior, the short Prolene suture as superior, and the long Prolene suture as lateral. ??There is a needle localization wire which enters on the lateral aspect of the breast and has an exit clip on the medial side of the posterior aspect. ??This localization wire is removed. ??The specimen is inked as follows: anterior yellow, posterior black, superior blue, inferior green, medial red, and lateral orange. ??The specimen is sectioned from medial (level 1) to ? lateral (level 13). ??The cut sections reveal a firm, heterogeneous area in the ?? medial aspect, in levels 1 and 2, with an area that may represent [...] medial and inferior ? margins. ??The remaining breast tissue is primarily yellow, lobular adipose ? tissue, which is slightly fragmented. ??Leather Softener sections are submitted as follows: ? BLOCK SEN ? A1-A5 ?Level 1, medial margin, perpendicular sections (inferior to ? superior) ? A6 ?Level 2, inferior half ? A7 ?Level 2, superior half ? A8 ?Level 3, inferior half ? A9 ?Level 3, superior half ? A10 ?Level 4, inferior one-third ? A11 ?Level 4, middle one-third ? A12 ?Level 5, superior half ? A13 ?Level 6, inferior half ? A14 ?Level 7, inferior half ? A15 ?Level 8, middle one-third (anterior and posterior margins) ? A16 ?Level 9, inferior half ? A17 ?Level 10, superior half ? A18 ?Level 11, inferior half ? A19 ?Level 12, superior half ? A20, A21 ? Level 13, lateral margin, sales representatives perpendicular sections ? Received in formalin labelled Steve Marx and #2 firm specimens adjacent to specimen #1 is a 4.4 gram oriented piece of firm, yellow, focally brown tissue which measures 2.5 x 2.5 x 1.1 cm. ??The specimen is oriented as per the ? requisition, which designates the silk suture as adjacent to silk suture in #1 ?? (silk suture #1 represented inferior margin). ??The aspect with the suture is ? inked blue and all remaining margins are inked black. ??The specimen is serially sectioned in seven levels revealing fibrous tissue and focal areas that are more firm than the surrounding tissue. ??There are no definitive nodules or masses. ?? There are focal areas of brown, which may represent hemorrhage. ??The specimen is submitted entirely as follows: ? BLOCK SEN ? B1, B2 ?Level 1, perpendicular sections ? B3 ?Level 2 ? B4 ?Level 3 ? B5 ?Level 4 ? B6 ?Level 5 ? B7 ?Level 6 ? B8, B9 ?Level 7, perpendicular sections ? Received in formalin labelled Araseli, Steve and #3 firm area inferior to ? specimen #1 are two pieces of tissue which weigh 0.6 grams and 0.2 grams, ? respectively. ??The specimens are oriented as per the requisition, designating ?? the sutures are adjacent to specimen #1. ??The larger specimen measures 2.0 x 1.1 x 0.8 cm and the smaller specimen measures 1.0 x 0.9 x 0.7 cm. ??The larger ? specimen is yellow and lobulated, with focal fibrous tissue and hemorrhage. ??The smaller specimen is yellow, admixed with james-brown fibrous tissue. ??The ? specimens are both inked with the suture aspect blue and the remaining margins ?? black. ??The larger fragment is trisected and submitted as (C1) and (C2). ??The ?? smaller fragment is bisected and submitted as (C3). ??(Dr. Cabrera)/antwon ? ESTROGEN AND PROGESTERONE RECEPTOR IMMUNOPEROXIDASE STAINS ? Date Ordered: ? 02/04/2010 ? Status: ?? Signed Out ?Date Complete: ? 02/04/2010 ? By: ??Michelle Arredondo ? Date Reported: ? 02/04/2010 ? Interpretation ? Breast, right, wire localization excisional biopsy: ? - Ductal carcinoma in situ. ? 1. ?Positive for estrogen receptors (in greater than 90% of tumor ? cells). ? 2. ?Positive for progesterone receptors (in greater than 90% of tumor ?? cells). ? Description ? Tissue submitted: Paraffin embedded tissue block labelled [id number] (A10) ?? from [facility] ? An immunohistochemical assay for estrogen receptors (ER1D5, Dako) and ? progesterone receptors ([id number], Dako) has been performed on this specimen. ? Standard heat activated antigen retrieval protocol (EDTA buffer at pH 8.0 and 98 C x 30 minutes) was employed followed by automated immunostaining. Intranuclear receptor complexes were visualized on tissue sections using an HRP polymer ? immunohistochemical technique. ? Results are reported as negative (no nuclear staining) or positive with the proportion of positive cells noted. ??Estrogen receptor expression in <5% of ? tumor cells may not have a strong interaction with estrogen receptor modulators such as Tamoxifen. ??(Dr. Lobato)/antwon ? NOTE: ??One or more of the [...] ??These reagents' ??performance ? characteristics have been determined by [facility]. ??This ? laboratory is certified under the Clinical Laboratory Improvement Amendments of 1988 (CLIA-88) as qualified to perform high complexity clinical laboratory ? testing. ? Document reviewed and electronically signed by: ? NARENDRA LOBATO MD ? Report date: 02/04/2010 ? By the signature above, the attending physician certifies that he/she has ? personally conducted a gross and/or microscopic examination of the described ? specimens and rendered or confirmed the above diagnosis. ? End of Report ? [facility] 01/28/2010 01/29/2010 17: 05 EST Bautista Emerson DO PATHOLOGY ORDER HAIDER [facility] [address] [place] [address] documented in this encounter Visit Diagnoses Not on filedocumented in this encounter
--- OUTSIDE RECORDS SUMMARY | 2023-12-26 13:16 | XMS_ITS | Encounter Summary ---
Author Organization [facility] Address [address] [place] [address] Care Team Providers Care Slunk Skin Curer Name Role Phone Unknown, Provider Primary Care Provider Unava ilable Encounter Details Date Type Department Care Team (Late st Contact Info) Description 11/29/2010 Results Only [facility] Laboratory Services - [facility] ([facility]) [address] [place], [place] [id number] Kayli Engel FNP [address] [place], [place] [address] Social History Tobacco Use Types Packs/Day Years [...] Diagnosis Comments PAP TEST- RESULT ONLY Routine 11/29/2010 0:00 EDT documented in this encounter Results * PAP TEST- RESULT ONLY (11/29/2010 0:00 EDT) Pathology Report: CYTOPATHOLOGY REPORT Reports generated via electronic interface contain original data; however they are lacking the format of the original report. Caution should be taken when reading/interpreti ng unformatted reports. Name: ? STEVE MARX ? Accession #: ? [id number] ? : ? 1955 (Age: 55) ??F ?Collect Date: ? 11/29/2010 ? Location: ? [facility] ? Receive Date: ? 11/30/2010 ? Provider: KAYLI ENGEL AIR DUCT MECHANIC Copy to: ? Final Report SPECIMEN ADEQUACY ? Satisfactory for Evaluation - transformation zone component present GENERAL CATEGORIZATION ? Epithelial Cell Abnormality INTERPRETATION ? Squamous Cell Abnormality - Atypical squamous cells, undetermined significance (ASC-US). EDUCATIONAL NOTES/RECOMMENDATI ONS ? [facility] recommends following the 2006 Consensus Guidelines for the Management of Women with Abnormal Cervical Cancer Screening Tests (JLGTD, 2007;11(4):201-222 ). ??Consensus guidelines are available online at www.ASCCP.org. Last Menstural Period: 15 yrs ago Previous Gynecologic Pathology: JODI: yrs ago dysplasia Specimen/Source: ??Pap Test, Cervix/Endocervix, ThinPrep Imaging System with manual evaluation Document reviewed and electronically signed by: ? PHILOMENA PEARL MD ? Report ??Date: 12/07/2010 16:48 HPV with Pap Test ? Date Ordered: ? 12/07/2010 ? Status: ?? Signed Out ?Date Complete: ? 12/09/2010 ? By: ??System Interface ? Date Reported: ? 12/09/2010 ? [...] and rendered or confirmed the above diagnosis. End of Report [facility] 11/29/2010 11/30/2010 Kayli Engel [facility] PATHOLOGY ORDERABLES Performing Organization Address City/State/[facility] Co de Phone Number DAMON DER[facility] [address] [place] [address] documented in this encounter Visit Diagnoses Not on filedocumented in this encounter Care Teams Slunk Skin Curer Relationship Specialty Start Date End Date Unknown, Provider, PCP - General 02/02/10 10/22/16 documented as of this encounter
--- OUTSIDE RECORDS SUMMARY | 2023-12-26 13:16 | XMS_ITS | Continuity of Care Document ---
Author Organization [facility] Address [address] [place] [address] Care Team Providers Care Cycle Liaison Name Role Phone Treva De Jesus Primary Care Physician [facility] [id number] Date(s): 09/20/23 - 09/20/23 [facility] [address] [place] [address] Discharge Disposition: Home Allergies, Adverse Reactions, Alerts Substance Reaction Severity Status Ambien Mild Active Macrobid Mild Active Assessment and Plan Future Appointments Medications buPROPion 150 mg/24 hours (XL) oral tablet, extended release 150 mg 1 tab, Oral, every 24 hr, # 30 tab, 0 Refill(s) Start Date: 08/21/23 Status: Ordered escitalopram 10 mg oral tablet 10 mg = 1 tab, Oral, Daily, # 30 tab, 0 Refill(s) Start Date: 08/21/23 Status: Ordered Fish Oil oral capsule 1 cap, Oral, Daily, # 100 cap, 0 Refill(s) Start Date: 09/20/23 Status: Ordered Gummi vitamins Gummi vitamins, 4, Daily, 0 Refill(s) Start Date: 09/20/23 Status: Ordered ketoconazole 2% topical cream 1 feliciano, Topical, BID, 0 Refill(s) Start Date: 08/21/23 Status: Ordered levothyroxine 88 mcg (0.088 mg) oral capsule 100 mcg =, Oral, Daily, # 30 cap, 0 Refill(s) Start Date: 08/21/23 Status: Ordered magnesium oxide 400 mg (241.3 mg elemental magnesium) oral tablet 200 mg =, Oral, BID Start Date: 08/21/23 Status: Ordered Vitamin D3 1000 intl units oral capsule 25 mcg = 1 cap, Oral, Daily, # 75 cap, 0 Refill(s) Start Date: 09/20/23 Status: Ordered Problem List Condition Confirmation Course Effective Dates Status H ealth Status Informant Atrophic vaginitis Confirmed Active Daytime somnolence Confirmed Active Depressive disorder Confirmed Active Hyperlipemia Confirmed Active Hypothyroidism Confirmed Active Insomnia Confirmed Active IBS (irritable bowel syndrome) Confirmed Active Kidney stone Confirmed Active Overweight Confirmed Active Restless legs syndrome (RLS) Confirmed Active Senile osteoporosis Confirmed Active Snoring Confirmed Active Social History Social History Type Response Tobacco Never tobacco user T obacco Use:. Sex Female Patient Care team information Care Team Personnel Name: Treva De Jesus MD Position: No Access Member Role: Primary Care Physician Address: Address: [address] [place] [id number]- Care Team Related Persons Name: JANN MCCULLOUGH Address: Home [address] [place], [place] [id number] Address: Mailing [address] [place], [place] [id number]
--- OUTSIDE RECORDS SUMMARY | 2023-12-26 13:16 | XMS_ITS | Encounter Summary ---
[place] [address] Care Team Providers Care Ui Lead Developer Name Role Phone Christine Fuentes Primary Care Provider +1- [phone] Encounter Details Date Type Department Care Team (Late st Contact Info) Description 04/19/2019 Orders [place] [address] Christina Fay, RN Malignant neoplasm of right female breast, unspecified estrogen receptor status, unspecified site of breast Social History Tobacco Use Types Packs/Day Years Used Date Smoking Tobacco: Former Cigarettes Q uit: 10/19/2011 Smokeless Tobacco: Never Alcohol Use Standard Drinks/Week Comments Yes 1 (1 standard drink = 0.6 oz pur e alcohol) very rare Sex and Gender Information Value Date Recorded Sex Assigned at Not on file Gender Identity Not on file Sexual Orientation Not on file documented as of this encounter Plan of Treatment Not on file documented as of this encounter Visit Diagnoses Diagnosis Malignant neoplasm of right female breast, unspecified estrogen receptor status, unspecified site of breast documented in this encounter Care Teams Ui Lead Developer Relationship Specialty Start Date End Date Christine Fuentes PA [address] [place] [address] PCP - General Family Medicine 01/24/17 10/08/19 documented as of this encounter
--- OUTSIDE RECORDS SUMMARY | 2023-12-26 13:16 | XMS_ITS | Encounter Summary ---
[place] [address] Care Team Providers Care Bridge Club Manager Name Role Phone Christine Fuentes Primary Care Provider +1- [phone] Encounter Details Date Type Department Care Team (Late st Contact Info) Description 04/19/2019 9:30 AM [place] [address] January Davis Social History Tobacco Use Types Packs/Day Years [...] documented as of this encounter Progress Notes * January Davis - 04/19/2019 9:30 AM EST Cecilia Marx [id number] Referring Physician: Shazia Boyd APN Previous Fitting: [facility] 04/10/18 Insurance: of [place] Prescription: Yes Diagnoses:right breast cancer Date of [...] to her type of surgery. Delivered today:04.19.2019 [facility] Manufacture Model L/R Quantity L8030 ABC 50705-82 L 1 L8030 ABC 23215-37 R 1 Bra - Our goal is to provide adequate measurement to reach the best comfort possible for different life styles, and we determine that with our client that the bra described below are meeting her needs according to her type of surgery and life style. Delivered today: [facility] Manufacture Model L/R Quantity L8000 ABC 960-XL-BH 1 L8000 ABC 960-XL-BK 1 L8000 ABC [id number] 1 L8000 ABC 525-42B-BK 1 L8000 ABC [id number] 1 To Order:N/A Follow up: PRN Payment Info: paid $879.19 w/ CC to [facility], This will be submitted toward deductible. Retail: $100.00 for the sonia's -paid with cc to [facility]. (This was paid all in one transaction of $979.19) Delivery date: 04.19.2019 Cecilia agrees to this plan. documented in this encounter Plan of Treatment Not on file documented as of this encounter Visit Diagnoses Not on filedocumented in this encounter Care Teams Bridge Club Manager Relationship Specialty Start Date End Date Christine Fuentes PA [address] [place] [address] PCP - General Family Medicine 01/24/17 10/08/19 documented as of this encounter
--- OUTSIDE RECORDS SUMMARY | 2023-12-26 13:16 | XMS_ITS | Encounter Summary ---
[place] [address] Care Team Providers Care Sliver Lap Tender Name Role Phone Unknown Primary Care Provider Unavailabl e Reason for Referral * Consultation (Routine) - Closed Specialty Diagnoses / Procedures Referred By Contac t Referred To Contact Neurology Diagnoses Tremor Treva De Jesus MD [address] [place] [address] [facility] Neurology [address] [place] [phone] Referral ID Status Reason Start Date Expiration Date V isits Requested Visits Authorized [id number] Closed Consult, Test & Treat PCP Updated and/or Approved 03/16/2023 03/15/2024 6 6 Encounter Details Date Type Department Care Team (Late st Contact Info) Description 03/16/2023 Transcribe Orders eDH Incoming Referrals [phone] Treva De Jesus MD [address] [place] [address] Tremor Social History Tobacco Use Types Packs/Day Years [...] Scheduled Referrals Name Type Priority Associated Diagnoses Orde r Schedule Referral to Neurology Outpatient Referral Routine Tremor Ordered: 03/16/2023 documented as of this encounter Visit Diagnoses Diagnosis Tremor Abnormal involuntary movements documented in this encounter Care Teams Sliver Lap Tender Relationship Specialty Start Date End Date Unknown None PCP - General 10/09/19 documented as of this encounter
--- OUTSIDE RECORDS SUMMARY | 2023-12-26 13:16 | XMS_ITS | Encounter Summary ---
Author Organization [facility] Address [address] [place] [address] Care Team Providers Care Urban And Regional Planner Name Role Phone Christine Fuentes PA-C Primary Care Provider + Encounter Details Date Type Department Care Team (Late st Contact Info) Description 09/01/2022 Lab Requisition [facility] Pathology & Laboratory Medicine - [address] [address] Treva De Jesus MD [address] [place] [phone] Encounter for other general examination Social History Tobacco Use Types Packs/Day Years Used Date Smoking Tobacco: Never Smokeless Tobacco: Never Alcohol Use Standard Drinks/Week Comments Yes 6 (1 standard drink = 0.6 oz pur e alcohol) Interpersonal Safety Answer Date Record ed Physically Hurt Never 09/22/2019 Verbally Threaten Not on file 09/22/2019 Sex and Gender Information Value Date Recorded Sex Assigned at Not on file Gender Identity Not on file Sexual Orientation Not on file documented as of this encounter Plan of Treatment Not on file documented as of this encounter Procedures Procedure Name Priority Date/Time Associated Diagnosis Comments SURGICAL PATHOLOGY Today 08/31/2022 8: 30 EDT Encounter for other general examination documented in this encounter Results * SURGICAL PATHOLOGY (08/31/2022 8:30 EDT) Note to Patient The following pathology results have been interpreted by your pathologist and may be available to you before your health provider has had the opportunity to review them. Please allow time for your provider to receive these results and explore management options, if applicable. 09/02/2022 8:16 [facility] Final Diagnosis A. SKIN OF UMBILICUS, LEFT SIDE, SHAVE BIOPSY: - Seborrheic keratosis. B. SKIN OF THIGH, LEFT, SHAVE BIOPSY: - Squamous cell carcinoma, well-differentiat ed, superficially invasive, encompassed within the examined sections. 09/02/2022 8:16 [facility] Attestation By the signature below, the attending physician certifies that they have 1) personally conducted a gross and/or microscopic examination of the described specimen(s), and/or personally interpreted the results of laboratory testing of the described specimen(s), and 2) personally rendered or confirmed the above diagnosis. 09/02/2022 8:16 [facility] at 0816 Clinical History Nevus L side umbilicus, pedunculated; Neoplasm of uncertain behavior L thigh 09/02/2022 8:16 [facility] Gross Description A. Received in formalin labelled with proper patient identification (initials R, D) and 1. Umbilicus is a shave biopsy of choe-james verrucoid to mammillated skin (0.6 x 0.5 x 0.4 cm). The margin is inked blue. The tissue is bisected and entirely submitted in A1. B. Received in formalin labelled with proper patient identification (initials R, D) and 2. L thigh is a shave biopsy of james-choe skin (0.8 x 0.8 x 0.2 cm). There is a white centrally brown and speckled black keratotic papule (0.6 x 0.6 x 0.4 cm). The margin is inked black. The tissue is trisected and entirely submitted in B1. NNAMDI JONES(ASCP) 09/01/2022 11:51 09/02/2022 8:16 [facility] Performing Lab [facility] 09/02/2022 8:16 [facility] Scanned Images 09/02/2022 8:16 EDT [facility] Tissue TISSUE SPECIMEN FROM SKIN / Unknown 08/31/2022 8:30 EDT 09/01/2022 7:50 EDT Tissue specimen (specimen) SPECIMEN FROM SKIN / Unknown 08/31/2022 8:30 EDT 09/01/2022 7:50 EDT Treva De Jesus MD PATHOLOGY ORDERABLES [facility] [address] [place] [address] documented in this encounter Visit Diagnoses Diagnosis Encounter for other general examination documented in this encounter Care Teams Urban And Regional Planner Relationship Specialty Start Date End Date Christine Fuentes PA-C [address] [place] [phone] PCP - General 10/23/16 documented as of this encounter
--- OUTSIDE RECORDS SUMMARY | 2023-12-26 13:16 | XMS_ITS | Encounter Summary ---
[place] [address] Care Team Providers Care Director Technical Name Role Phone Christine Fuentes Primary Care Provider +1- [phone] Encounter Details Date Type Department Care Team (Late st Contact Info) Description 08/29/2018 Telephone [place] [phone] Kiersten Dean RN Social History Tobacco Use Types Packs/Day Years [...] documented as of this encounter Miscellaneous Notes * Telephone Encounter - Kiersten Dean RN - 09/03/2018 10:23 AM EDT Call placed to [facility] has lab results not scanned in. Per Danyell, patient has not come in for lab. Call placed to Diane. FLORES reminding she's due for labs. Asked her to call back or send [facility] message * Telephone Encounter - Kiersten Dean RN - 08/29/2018 3:20 PM EDT Bautista Mcgrath MD sent to Kiersten Dean RN ?? Dbebie, I am not sure if you are the right person to send this to. I saw this patient in clinic this week but want additional labs. She lives close to [facility] and would be reasonable to have them done there. I ordered the labs as external and called to patient to let her know. Do we fax the orders to [facility]? Isthis something that I should send to the secretaries? Thanks, James Lab orders faxed to [facility] at [phone]. Reminder set to f/u on results. documented in this encounter Plan of Treatment Not on file documented as of this encounter Visit Diagnoses Not on filedocumented in this encounter Care Teams Director Technical Relationship Specialty Start Date End Date Christine Fuentes PA [address] [place] [address] PCP - General Family Medicine 01/24/17 10/08/19 documented as of this encounter
--- OUTSIDE RECORDS SUMMARY | 2023-12-26 13:16 | XMS_ITS | Encounter Summary ---
[place] [address] Care Team Providers Care Shipper/Receiver Name Role Phone Christine Fuentes Primary Care Provider +1- [phone] Encounter Details Date Type Department Care Team (Late st Contact Info) Description 09/11/2018 [place] [phone] January Davis Social History Tobacco Use Types [...] encounter Miscellaneous Notes * Telephone Encounter - January Davis - 09/11/2018 3:59 PM EDT Cecilia Marx comes in today and would like to purchase some new bras just like the ones we fit her with in March. Delivered to her today: ?? 110-L-C/D- white ?? We ordered her 3 more, [place],Silveira, and Star flower. ?? She paid for all 4 of them today with CC $145.56 ?? F/up: 08/28/18 to picker packer the 3 we ordered today. ??[place],Silveira, and Star flower were mailed to pt and she confirmed she received them. documented in this encounter Plan of Treatment Not on file documented as of this encounter Visit Diagnoses Not on filedocumented in this encounter Care Teams Shipper/Receiver Relationship Specialty Start Date End Date Christine Fuentes PA [address] [place] [address] PCP - General Family Medicine 01/24/17 10/08/19 documented as of this encounter
--- OUTSIDE RECORDS SUMMARY | 2023-12-26 13:16 | XMS_ITS | Encounter Summary ---
Author Organization [facility] Address [address] [place] [address] Care Team Providers Care Child Development Director Name Role Phone Unknown, Provider Primary Care Provider Unava ilable Encounter Details Date Type Department Care Team ([facility] st Contact Info) Description 09/08/2005 Results Only [facility] [address] [place] [address] Ernie Fuentes PA-C [address] [place] [address] Social History Tobacco Use Types Packs/Day Years Used Date Smoking Tobacco: Never Assessed Sex and Gender Information Value Date Recorded Sex Assigned at Not on file Gender Identity Not on file Sexual Orientation Not on file documented as of this encounter Plan of Treatment Not on file documented as of this encounter Procedures Procedure Name Priority Date/Time Associated Diagnosis Comments CYTOPATHOLOGY Routine 09/08/2005 0:00 EDT documented in this encounter Results * CYTOPATHOLOGY (09/08/2005 0:00 EDT) Pathology Report: CYTOPATHOLOGY REPORT Reports generated via electronic interface contain original data; however they are lacking the format of the original report. Caution should be taken when reading/interpreti ng unformatted reports. Name: ? STEVE MARX ? Accession #: ? [id number] : ? 1955 (Age: 50) ??F ?Collect Date: ? 09/08/2005 Location: ? [facility] ? Receive Date: ? 09/13/2005 Provider: ?ERNIE COTO Copy to: ? Specimen/Source: ?ThinPrep Pap Test, Cervix/Endocervix, processed on [employer] ThinPrep Imaging System, with manual evaluation Last [...] Low grade squamous intraepithelial lesion (LSIL). EDUCATIONAL NOTES/RECOMMENDATI ONS ? [facility] recommends following the 2001 Consensus Guidelines for the Management of Women with Cervical Cytological Abnormalities (UGO,2002;287:212 0-9). Management algorithms have been distributed by [facility] and are available online at www.ASCCP.org. ? Document reviewed and electronically signed by: ? PHILOMENA PEARL MD ? Report Date: ??09/15/2005 14:56 End of Report [facility] 09/08/2005 09/13/2005 Ernie Fuentes PA-C [facility]Y [facility] [address] [place] [address] documented in this encounter Visit Diagnoses Not on filedocumented in this encounter Care Teams Child Development Director Relationship Specialty Start Date End Date Unknown, Provider, PCP - General 02/02/10 10/22/16 documented as of this encounter
--- OUTSIDE RECORDS SUMMARY | 2023-12-26 13:16 | XMS_ITS | Encounter Summary ---
Author Organization [facility] Address [address] [place] [address] Care Team Providers Care Expanded Function Dental Assistant Name Role Phone Christine Fuentes PA-C Primary Care Provider + Reason for Visit * Reason Comments Flank Pain sudden onset 20 min PRODUCT ARCHITECT of severe L flank pain. 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 Hx of kidney stones Encounter Details Date Type Department Care Team (Late st Contact Info) Description 10/23/2016 16:20 EDT - 10/23/2016 19:42 EDT Emergency [facility] Emergency Department - [address] [address] Luis Orantes MD [address] [place] [address], [address] [place] [address] Emergency, MD Tolu Flank pain (Primary Dx) Discharge Disposition: Home or Self Care Social History Tobacco Use Types Packs/Day Years [...] encounter Discharge Diagnoses Diagnosis R10.9 Unspecified abdominal pain-R10.9[ICD-10-CM] R10.32 Left lower quadrant pain-R10.32[ICD-10-CM] F32.9 Major depressive disorder, single episode, unspecified-F32.9[ICD-10-CM] Z87.442 Personal history of urinary calculi-Z87.442[ICD-10-CM] Z79.899 Other alf (current) drug therapy-Z79.899[ICD-10-CM] Z79.82 senior care (current) use of aspirin-Z79.82[ICD-10-CM] Z88.3 Allergy status to other anti-infective agents status-Z88.3[ICD-10-CM] documented in this encounter Discharge Instructions * Discharge Instructions* Luis Orantes MD - 10/23/2016 19:26 EDT 1. Drink plenty of fluids. Initially retrict diet to clear fluids, then add solids as tolerated. 2. Continue all of your medications as prescribed. 3. Ibuprofen 600mg every 6 hours as needed for pain. Hydromorphone 2-4 mg every 4 hours as needed for pain. Return to the Emergency Department (ED) if your condition worsens, does not improve as expected, orfor any other concerns. Specifically return if you have new or uncontrolled pain, worsening fever, difficulty breathing, vomiting, or are unable to drink fluids. * Attachments The following attachments cannot be sent through Care Everywhere. * ABDOMINAL PAIN (CAMEROONIAN) documented in this encounter Medications at Time of Discharge Medication Sig Dispensed Refills Start Date End Date AMITRIPTYLINE HCL (AMITRIPTYLINE ORAL) Take by mouth daily. aspirin chewable 81 mg tablet Take 81 mg by mouth daily. BUPROPION HCL ORAL Take by mouth daily. ESCITALOPRAM OXALATE (LEXAPRO ORAL) Take by mouth daily. escitalopram oxalate (LEXAPRO) 10 mg tablet Take 10 mg by mouth daily. LEVOTHYROXINE SODIUM (LEVOTHYROXINE ORAL) Take by mouth daily. documented as of this encounter Discharge Disposition Disposition Code Departure Means Destination Home or Self Care Walk-out Home documented in this encounter ED Notes * Luis Orantes MD - 10/23/2016 1645 EDT DOS: 10/23/2016 Chief Complaint Patient presents with ??? Flank Pain sudden onset 20 min PRODUCT ARCHITECT of severe L flank pain. 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 Hx of kidney stones HPI The patient is a 61 y.o. female who presents today with Flank Pain (sudden onset 20 min PRODUCT ARCHITECT of severe L flank pain. 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 Hx of kidney stones) HPI Comments: I, Natty Kennedy, am scribing for Luis Orantes MD while he/she is personally performing the service. Natty Kennedy 10/23/2016 16:46 Cecilia Marx is a 61 y.o. female with a remote history of renal colic who presents with 30 minutes of sudden onset of left flank pain. At onset, patient was in heated argument with [id number]. She endorses several days of subjective inability to empty [...] to empty bladder entirely ) and flank pain. Negative for dysuria and frequency. Musculoskeletal: Positive for [...] equal bilateral kidneys with no obvious UVJ. Patient also had aortic US, which was negative for aortic aneurism. Images obtained, reviewed, andinterpreted independently by myself. Please see formal report in the [facility] Images section. Images saved in PACS. ED Lab Results Labs Reviewed POCT URINE DIPSTICK - Abnormal Result Value Status Blood 2+ (*) Final Leuk Esterase Trace (*) Final Color YELLOW Final Clarity, UA Clear Final Glucose Neg Final Bilirubin Neg Final Ketones Neg Final Specific [place] 1.025 Final pH 5.5 Final Protein Neg Final Urobilinogen 0.2 Final Nitrite Neg Final Tech ID [id number] Final Relevant Data Procedures ED COURSE A medical screening exam was performed. The patient is a 61 y.o. female, who presents with sudden onset of left flank pain 30 minutes PRODUCT ARCHITECT. She has history of passing a kidney stone years ago. On exam, she has localized pain to left flank and left lower quadrant with no tenderness. I preformed [...] obtain history from someone other than the patient:yes Obtain history from someone other than the [...] as Scribe under the direction and presence ofLuis Orantes MD. Luis Orantes MD: I personally performed the services recorded by the scribe in my presence. I confirm the scribe's documentation has been reviewed by me to accurately and completely recordmy work, treatment, procedures, and medical decision making. documented in this encounter Plan of Treatment Not on file documented as of this encounter Procedures Procedure Name Priority Date/Time Associated Diagnosis Comments POCT US AORTA STAT 10/23/2016 19:26 EDT POCT URINE DIPSTICK, CLINITEK STAT 10/23/2016 18:10 EDT POCT US RENAL STAT 10/23/2016 17:43 EDT documented in this encounter Results * POCT US AORTA (10/23/2016 19:26 EDT) Anatomical Region Laterality Modality Other 10/23/2016 19:2 6 EDT 10/25/2016 11:35 EDT Narrative 10/25/2016 11:35 EDT [facility] - Ultrasound Exam Date: 10/23/2016 Exam Type: POCT US ARTERIAL Hand Tool Filer: Luis Orantes MD Attending: Luis Orantes MD Worksheet: POCUS_Aorta Exam Information: Indication(s) for Exam: ?? The exam was performed with the following indications: Abdominal pain Views Obtained ?? Physician Signature: ALL OF THE ABOVE VIEWS OBTAINED Findings: ?? Exam of the above structures revealed the following findings: No aneurysm ?? Aorta, tapering: Normal Interpretation: ?? Normal abdominal aorta exam, no aneurysm Confirmatory study: ?? What confirmatory study was done?: Not applicable Physician Signature: ?? I review and approve of the documentation above.: Signed by Luis Orantes MD on Tuesday, October 25, 2016 at 11:35:27 AM This exam was performed and interpreted by the Emergency Department Staff Procedure Note Luis Orantes MD - 10/25/2016 [facility] - Ultrasound Exam Date: 10/23/2016 Exam Type: POCT US ARTERIAL Hand Tool Filer: Luis Orantes MD Attending: Luis Orantes MD Worksheet: POCUS_Aorta Exam Information: Indication(s) for Exam: The exam was performed with the following indications: Abdominal pain Views Obtained Physician Signature: ALL OF THE ABOVE VIEWS OBTAINED Findings: Exam of the above structures revealed the following findings: No aneurysm Aorta, tapering: Normal Interpretation: Normal abdominal aorta exam, no aneurysm Confirmatory study: What confirmatory study was done?: Not applicable Physician Signature: I review and approve of the documentation above.: Signed by Luis Orantes MD on Tuesday, October 25, 2016 at 11:35:27 AM This exam was performed and interpreted by the Emergency Department Staff Luis Orantes MD IMG POCT US ORDER HAIDER * (ABNORMAL) POCT URINE DIPSTICK (10/23/2016 18:10 EDT) Color YELLOW 10/23/2016 18:19 T [facility] Clarity, UA Clear 10/23/2016 18:19 T [facility] Glucose Neg Neg 10/23/2016 18:19 [facility] Bilirubin Neg Neg 10/23/2016 18:19 [facility] Ketones Neg Neg 10/23/2016 18:19 [facility] Specific [place] 1.025 1.001 - 1.035 10/23/2016 18:19 [facility] Blood 2+(A) Neg 10/23/2016 18:19 [facility] pH 5.5 4.6 - 8.0 10/23/2016 18:19 [facility] Protein Neg Neg 10/23/2016 18:19 [facility] Urobilinogen 0.2 0.2 - 1.0 E.U./dl 10/23/2016 18:19 [facility] Nitrite Neg Neg 10/23/2016 18:19 [facility] Leuk Esterase Trace(A) Neg 10/23/2016 18:19 [facility] elderly caregiver ID [id number] 10/23/2016 18:19 [facility] Comment:Test performed at Em ergency Department Urine specimen (specimen) URINE / Unknown 10/23/2016 18:10 EDT 10/23/2016 18:19 EDT Luis Orantes MD POINT OF CARE CAMILA T ORDERABLES [facility] [address] [place] [id number] * POCT US RENAL (10/23/2016 17:43 EDT) Anatomical Region Laterality Modality Other 10/23/2016 17:4 3 EDT 10/25/2016 11:34 EDT Narrative 10/25/2016 11:34 EDT [facility] - Ultrasound Exam Date: 10/23/2016 Exam Type: POCT US RENAL Hand Tool Filer: Luis Orantes MD Attending: Luis Orantes MD Worksheet: POCUS_Renal Exam Information: ?? A focused (limited) ultrasound of the kidneys was performed to evaluate for hydronephrosis and nephrolithiasis. ?? Exam type: Clinically indicated Indication(s) for Exam: ?? The exam was performed with the following indications: Abdominal pain, Flank pain Findings: ?? Hydronephrosis of the LEFT kidney: None ?? Hydronephrosis of the RIGHT kidney: None ?? Ureteral calculi on the RIGHT: Absent ?? Ureteral caculi on the LEFT: Absent Interpretation: ?? Normal limited renal ultrasound, no evidence of hydronephrosis or calculi Views Obtained ?? The following structures were examined in two orthogonal planes from a transabdominal approach: ALL OF THE VIEWS ABOVE WERE OBTAINED Confirmatory study: ?? What confirmatory study was done?: Not applicable Physician Signature: ?? I review and approve of the documentation above.: Signed by Luis Orantes MD on Tuesday, October 25, 2016 at 11:34:18 AM This exam was performed and interpreted by the Emergency Department Staff Procedure Note Luis Orantes MD - 10/25/2016 [facility] - Ultrasound Exam Date: 10/23/2016 Exam Type: POCT US RENAL Hand Tool Filer: Luis Orantes MD Attending: Luis Orantes MD Worksheet: POCUS_Renal Exam Information: A focused (limited) ultrasound of the kidneys was performed to evaluate for hydronephrosis and nephrolithiasis. Exam type: Clinically indicated Indication(s) for Exam: The exam was performed with the following indications: Abdominal pain, Flank pain Findings: Hydronephrosis of the LEFT kidney: None Hydronephrosis of the RIGHT kidney: None Ureteral calculi on the RIGHT: Absent Ureteral caculi on the LEFT: Absent Interpretation: Normal limited renal ultrasound, no evidence of hydronephrosis or calculi Views Obtained The following structures were examined in two orthogonal planes from a transabdominal approach: ALL OF THE VIEWS ABOVE WERE OBTAINED Confirmatory study: What confirmatory study was done?: Not applicable Physician Signature: I review and approve of the documentation above.: Signed by Luis Orantes MD on Tuesday, October 25, 2016 at 11:34:18 AM This exam was performed and interpreted by the Emergency Department Staff Luis Orantes MD IMG POCT US ORDER HAIDER documented in this encounter Visit Diagnoses Diagnosis Flank pain- Primary Abdominal pain, unspecified site documented in this encounter Administered Medications Inactive Administered Medications - up to 3 most recent administrations Medication Order MAR Action Action Date Dose Rate Site HYDROmorphone (DILAUDID) injection 1 mg 1 mg, intravenous, NOW X1, 1 dose, On 10/23/16 at 1700, STAT Given 10/23/2016 17:14 EDT 1 mg Hydromorphone 2 mg Tab STARTER PACK 2 Package, oral, NOW X1, 1 dose, On 10/23/16 at 1930, STAT Given 10/23/2016 19:35 EDT 2 Packages ketOROLAC (TORADOL) injection 15 mg 15 mg, intravenous, NOW X1, 1 dose, On 10/23/16 at 1700, STAT Given 10/23/2016 17:14 EDT 15 mg lactated ringers BOLUS 1,000 mL 1,000 mL, intravenous, NOW X1, 1 dose, On 10/23/16 at 1800, STAT New Bag 10/23/2016 18:01 EDT 1,000 mL metoCLOPramide (REGLAN) injection 10 mg 10 mg, intravenous, NOW X1, 1 dose, On 10/23/16 at 1830, STAT Given 10/23/2016 18:41 EDT 10 mg documented in this encounter Historical Medications * This list may reflect changes made after this encounter. Medication Sig Dispensed Refills Start Date End Date BUPROPION HCL ORAL Take by mouth daily. aspirin chewable 81 mg tablet Take 81 mg by mouth daily. ESCITALOPRAM OXALATE (LEXAPRO ORAL) Take by mouth daily. escitalopram oxalate (LEXAPRO) 10 mg tablet Take 10 mg by mouth daily. AMITRIPTYLINE HCL (AMITRIPTYLINE ORAL) Take by mouth daily. LEVOTHYROXINE SODIUM (LEVOTHYROXINE ORAL) Take by mouth daily. added in this encounter Active and Recently Administered Medications Times are shown in EDT. Scheduled Medication Order 10/21/2016 10/22/2016 10/23/2016 HYDROmorphone (DILAUDID) injection 1 mg (COMPLETED) 1 mg, intravenous, NOW X1, 1 dose, On 10/23/16 at 1700, STAT 1714 (Given - Provid er: Vahid Del Toro RN) Hydromorphone 2 mg Tab STARTER PACK (COMPLETED) 2 Package, oral, NOW X1, 1 dose, On 10/23/16 at 1930, STAT 1935 (Given - Provid er: Valentín Florez RN) ketOROLAC (TORADOL) injection 15 mg (COMPLETED) 15 mg, intravenous, NOW X1, 1 dose, On 10/23/16 at 1700, STAT 1714 (Given - Provid er: Vahid Del Toro RN) lactated ringers BOLUS 1,000 mL (COMPLETED) 1,000 mL, intravenous, NOW X1, 1 dose, On 10/23/16 at 1800, STAT 1801 (New Bag - Prov ider: Serena Agosto RN) metoCLOPramide (REGLAN) injection 10 mg (COMPLETED) 10 mg, intravenous, NOW X1, 1 dose, On 10/23/16 at 1830, STAT 1841 (Given - Provid er: Valentín Florez RN) documented in this encounter Orders Nursing Count Last Ordered Date First Orde red Date INSERT PERIPHERAL IV 1 10/23/2016 documented in this encounter Care Teams Expanded Function Dental Assistant Relationship Specialty Start Date End Date Christine Fuentes PA-C [address] [place] [id number] PCP - General 10/23/16 documented as of this encounter
--- OUTSIDE RECORDS SUMMARY | 2023-12-26 13:16 | XMS_ITS | Encounter Summary ---
Author Organization [facility] Address [address] [place] [address] Care Team Providers Care Television News Video Editor Name Role Phone Unknown, Provider Primary Care Provider Unava ilable Encounter Details Date Type Department Care Team (Latest Contact Info) Description 08/08/2016 8:25 EDT - 08/08/2016 23:59 EDT Hospital Encounter [address] [address] Unknown, Provider, Discharge Disposition: Home or Self Care Social History Tobacco Use Types Packs/Day Years Used Date Smoking Tobacco: Never Assessed Sex and Gender Information Value Date Recorded Sex Assigned at Not on file Gender Identity Not on file Sexual Orientation Not on file documented as of this encounter Discharge Disposition Disposition Code Departure Means Destination Home or Self Group Home documented in this encounter Plan of Treatment Not on file documented as of this encounter Visit Diagnoses Not on filedocumented in this encounter Care Teams Television News Video Editor Relationship Specialty Start Date End Date Unknown, ProviderMD PCP - General 02/02/10 10/22/16 documented as of this encounter
--- OUTSIDE RECORDS SUMMARY | 2023-12-26 13:16 | XMS_ITS | Clinical Summary ---
Author Organization [facility] Address [address] [place] [address] Care Team Providers Care Synthetic Filament Extruder Name Role Phone Christine Fuentes PA-C Primary Care Provider + Allergies Active Allergy Reactions Criticality Noted Date Comments Nitrofurantoin Monohyd/M-Cryst Rash 10/23 Medications Medication Sig Dispensed Refills Start Date End Date Status LEVOTHYROXINE SODIUM (LEVOTHYROXINE ORAL) Take by mouth daily. Active AMITRIPTYLINE HCL (AMITRIPTYLINE ORAL) Take by mouth daily. Active escitalopram oxalate (LEXAPRO) 10 mg tablet Take 10 mg by mouth daily. Active ESCITALOPRAM OXALATE (LEXAPRO ORAL) Take by mouth daily. Active aspirin chewable 81 mg tablet Take 81 mg by mouth daily. Active BUPROPION HCL ORAL Take by mouth daily. Active Medical History Medical History Date Comments Depression [...] on file Sexual Orientation Not on file Obstetrics History Last Filed Vital Signs Vital Sign Reading [...] Last Done Comments Hepatitis C Screen 1955 RSV Immunization ( o r 60+ Years) (1 - 1-dose 60+ series) 2016 Fall Risk Screening 2021 COVID-19 Vaccine (2022-24 season) 2022 Care Teams Synthetic Filament Extruder Relationship Specialty Start Date End Date Christine Fuentes PA-C [address] [place] [address] PCP - General 10/23/16
--- OUTSIDE RECORDS SUMMARY | 2023-12-26 13:16 | XMS_ITS | Encounter Summary ---
Author Organization [facility] [place] [address] Care Team Providers Care Food Beverage Server Name Role Phone Christine Fuentes Primary Care Provider [phone] Encounter Details Date Type Department Care Team (Late st Contact Info) Description 08/29/2018 Orders [place] [address] Bautista Mishra MD [facility] [address] [place] [address] Fatty liver Social History Tobacco Use Types Packs/Day Years [...] as of this encounter Miscellaneous Notes * Addendum Note - Bautista Mishra - 08/29/2018 2:58 PM EDTAddended by: BAUTISTA MISHRA on: 08/29/2018 03:05 PM Modules accepted: Orders documented in this encounter Plan of Treatment Not on file documented as of this encounter Visit Diagnoses Diagnosis Fatty liver Other chronic nonalcoholic liver disease documented in this encounter Care Teams Food Beverage Server Relationship Specialty Start Date End Date Christine Fuentes PA [address] [place] [address] PCP - General Family Medicine 01/24/17 10/08/19 documented as of this encounter
--- OUTSIDE RECORDS SUMMARY | 2023-12-26 13:16 | XMS_ITS | Encounter Summary ---
Author Organization [facility] Address [address] [place] [address] Care Team Providers Care Director Translational Name Role Phone Unavailable Primary Care Provider Unavailabl e Encounter Details Date Type Department Care Team (Late st Contact Info) Description 10/10/2006 Results Only [facility] [address] [place] [address] Kayli Engel FNP [address] [place], [place] [id number] Social History Tobacco Use Types Packs/Day Years Used Date Smoking Tobacco: Never Assessed Sex and Gender Information Value Date Recorded Sex Assigned at Not on file Gender Identity Not on file Sexual Orientation Not on file documented as of this encounter Plan of Treatment Not on file documented as of this encounter Procedures Procedure Name Priority Date/Time Associated Diagnosis Comments CYTOPATHOLOGY Routine 10/10/2006 0:00 EDT documented in this encounter Results * CYTOPATHOLOGY (10/10/2006 0:00 EDT) Pathology Report: CYTOPATHOLOGY REPORT Reports generated via electronic interface contain original data; however they are lacking the format of the original report. Caution should be taken when reading/interpreti ng unformatted reports. Name: ? STEVE MARX ? Accession #: ? [id number] : ? 1955 (Age: 51) ??F ?Collect Date: ? 10/10/2006 Location: ? [facility] ? Receive Date: ? 10/12/2006 Provider: ?KAYLI ENGEL BLASTING ENTRY SPECIALIST Copy to: ? Specimen/Source: ?ThinPrep Pap Test, Cervix/Endocervix, processed on [employer] ThinPrep Imaging System, with manual evaluation Last Menstrual Period: ? DILLON Previous Gynecologic Pathology: ? JODI: hx of with colpo. and bx Treatment History: ? Colposcopy: and bx Other: ? HPVA - HPV testing requested if ASC-US on the current ThinPrep Pap test. ? SPECIMEN ADEQUACY ? Satisfactory for Evaluation - transformation zone component present GENERAL CATEGORIZATION ? Negative for Intraepithelial Lesion or Malignancy INTERPRETATION ? Reactive cellular changes associated with inflammation present (includes repair). ? Document reviewed and electronically signed by: ? Aliyah Griffiths MD ? Report Date: ??10/18/2006 15:40 End of Report [facility] 10/10/2006 10/12/2006 Kayli Engel [facility] PATH[facility] ORDERABLES [facility] [address] [place] [address] documented in this encounter Visit Diagnoses Not on filedocumented in this encounter
--- OUTSIDE RECORDS SUMMARY | 2023-12-26 13:16 | XMS_ITS | Encounter Summary ---
Author Organization [facility] Address [address] [place] [address] Care Team Providers Care Teacher Education Director Name Role Phone Unknown, Provider Primary Care Provider Unava ilable Encounter Details Date Type Department Care Team (Late st Contact Info) Description 08/08/2016 Results Only [facility] [phone] Sirena Tinajero, [address] [place], [place] [id number] Social History Tobacco Use Types Packs/Day Years Used Date Smoking Tobacco: Never Assessed Sex and Gender Information Value Date Recorded Sex Assigned at Not on file Gender Identity Not on file Sexual Orientation Not on file documented as of this encounter Plan of Treatment Not on file documented as of this encounter Procedures Procedure Name Priority Date/Time Associated Diagnosis Comments SURGICAL PATHOLOGY Routine 08/08/2016 10 :58 EDT documented in this encounter Results * SURGICAL PATHOLOGY (08/08/2016 10:58 EDT) Pathology Report: SURGICAL PATHOLOGY REPORT Reports generated via electronic interface contain original data; however they are lacking the format of the original report. Caution should be taken when reading/interpreting unformatted reports. Name: ? STEVE MARX ? Accession #: ? [id number] ? : ? 1955 (Age: 61) ??F ? Collect Date: ? 08/08/2016 ? Location: ? [facility] ? Receive Date: ? 08/09/2016 ? Provider: SIRENA TINAJERO DO Copy to: ERNIE MARCOS PA-C ? Final Pathologic Diagnosis: A. ??SKIN OF FOREHEAD, MID, SHAVE BIOPSY: - Melanocytic nevus, intradermal type. B. ??SKIN OF CHEEK, LEFT LATERAL, SHAVE BIOPSY: - Actinic keratosis. ?? Microscopic Description: A-Sections are of a papule with mild epidermal hyperplasia and hyperkeratosis. There is a proliferation of melanocytes within the dermis. ??The proliferation consists of nests, cords, and strands that diminish in size with descent into the dermis. ??The melanocytes are slightly enlarged but generally have round-oval nuclei and a moderate amount of cytoplasm. ??The melanocytes show packing and final assembly supervisor maturation. ? B-The stratum corneum is thickened by orthohyperkeratosis with foci of parakeratosis. ??The epidermis is focally thickened with elongate and bulbous rete ridges. ??The basal keratinocytes show a variable degree of atypia including nuclear enlargement, dispolarity, and hyperchromasia. ??The dermis is marked by solar elastosis, vascular ectasia and a lymphohistiocytic infiltrate. ??(Dr. Horner)/ljn Document reviewed and electronically signed by: DINA HORNER MD Report ??Date: 08/10/2016 12:37 By the signature above, the attending physician certifies that he/she has personally conducted a gross and/or microscopic examination of the described specimens and rendered or confirmed the above diagnosis. Specimen(s) Received: A. ??Mid forehead B. ??Left lateral cheek Clinical History: Enlarging/changing skin lesion(s); clinical diagnosis code: ??D49.2 Gross Description: A. ?Received in formalin labelled with proper patient identification (initials R, D) and mid forehead is a 0.4 x 0.3 x 0.1 cm circular shave granular white skin. The margin is inked blue. The specimen is submitted in toto in A1. B. ?Received in formalin labelled with proper patient identification (initials R, D) and left lateral cheek are two irregular shaves of choe-white skin (0.6 x 0.5 x 0.1 cm and 0.8 x 0.8 x 0.1 cm). The smaller tissue contains slight james discoloration but is otherwise unremarkable. The margins are inked blue. The specimen is entirely submitted in B1 (larger tissue, trisected) and B2 (smaller tissue, bisected). NNAMDI Hoyos (ASCP) 08/09/2016 2:33 PM End of Report [facility] 08/08/2016 10:5 8 EDT 08/09/2016 10:58 EDT Sirena Tinajero DO PATHOLOGY ORDER HAIDER [facility] [address] [place] [address] documented in this encounter Visit Diagnoses Not on filedocumented in this encounter Care Teams Teacher Education Director Relationship Specialty Start Date End Date Unknown, Provider, PCP - General 02/02/10 10/22/16 documented as of this encounter
--- OUTSIDE RECORDS SUMMARY | 2023-12-26 13:16 | XMS_ITS | Encounter Summary ---
Author Organization [facility] Address [address] [place] [address] Care Team Providers Care Supervisor Wet End Name Role Phone Unavailable Primary Care Provider Unavailabl e Encounter Details Date Type Department Care Team (Late st Contact Info) Description 09/29/2005 Results Only [facility] [address] [place] [address] Yasemin Selby MD [address] [place] [address] [place] [address] Social History Tobacco Use Types Packs/Day Years Used Date Smoking Tobacco: Never Assessed Sex and Gender Information Value Date Recorded Sex Assigned at Not on file Gender Identity Not on file Sexual Orientation Not on file documented as of this encounter Plan of Treatment Not on file documented as of this encounter Procedures Procedure Name Priority Date/Time Associated Diagnosis Comments SURGICAL PATHOLOGY Routine 09/29/2005 0:00 EDT documented in this encounter Results * SURGICAL PATHOLOGY (09/29/2005 0:00 EDT) Pathology Report: SURGICAL PATHOLOGY REPORT Reports generated via electronic interface contain original data; however they are lacking the format of the original report. Caution should be taken when reading/interpreting unformatted reports. Name: ? STEVE MARX ? Accession #: ? [id number] ? : ? 1955 (Age: 50) ??F ? Collect Date: ? 09/29/2005 ? Location: ? [facility] ? Receive Date: ? 09/29/2005 ? Provider: YASEMIN SELBY MD Copy to: ERNIE COTO ? Final Pathologic Diagnosis: A. ?Cervix, 12 o'clock, biopsy: 1. ?Squamous mucosa with mild to moderate chronic inflammation. 2. ?Squamous atypia suggestive but not diagnostic of low grade squamous intraepithelial lesion. B. ?Endocervix, curettage: 1. ?Scant squamous epithelium with reactive changes. 2. ?No endocervical tissue seen. Comment: ? Deeper levels of (A) and (B) are also examined. Previous Pap smear ([id number]) was reviewed by Dr. Sally Pablo, and the presence of low grade squamous intraepithelial lesion was confirmed. However, the atypical cells seen on the Pap smear are not seen in the current cervical biopsy or endocervical curettage specimen. This case was reviewed by Dr. Sally Pablo, and was also presented at the intradepartmental consultation conference. ??(Dr. Zambrano)/[facility] Document reviewed and electronically signed by: Jameson Zambrano MD Report ??Date: 10/05/2005 16:40 By the signature above, the attending physician certifies that he/she has personally conducted a gross and/or microscopic examination of the described specimens and rendered or confirmed the above diagnosis. Specimen(s) Received: ? A. Cx bx @ 12:00 B. Endocervical curettage Clinical History: ? Pt states h/o abnormal Pap in 1982. ??08/25 Pap LSIL. ??Pt on Synthroid. ??LMP 1995. ?? Gross Description: ? Received in formalin labelled Araseli and cx bx @ 12:00 is a single fragment of james-pink soft tissue measuring 0.3 x 0.2 x 0.1 cm. ??Entirely submitted as (A). Received in formalin labelled Araseli and endocervical curettage is a scant amount of tissue which, after filtration, measures 0.2 x 0.1 x 0.1 cm. ??Entirely submitted as (B). ??(Dr. Swift)/lgk End of Report [facility] 09/29/2005 09/29/2005 10: 00 EDT Yasemin Selby MD PATHOLOGY ORDERABLES [facility] [address] [place] [address] documented in this encounter Visit Diagnoses Not on filedocumented in this encounter
--- OUTSIDE RECORDS SUMMARY | 2023-12-26 13:16 | XMS_ITS | Encounter Summary ---
[place] [address] Care Team Providers Care Electrical Mechanic Name Role Phone Christine Fuentes Primary Care Provider +1- [phone] Encounter Details Date Type Department Care Team (Late st Contact Info) Description 02/26/2019 2:30 [place] [address] January Davis Social History Tobacco Use Types [...] encounter Progress Notes * January Davis - 02/26/2019 2:30 PM EST Cecilia comes in to day wanting a Camisole. We fit her to the [id number]. She likes it. She is ready for new bras and forms but will come back in March to do that. $50.00 Paid by to [facility] documented in this encounter Plan of Treatment Not on file documented as of this encounter Visit Diagnoses Not on filedocumented in this encounter Care Teams Electrical Mechanic Relationship Specialty Start Date End Date Christine Fuentes PA [address] [place] [address] PCP - General Family Medicine 01/24/17 10/08/19 documented as of this encounter
--- OUTSIDE RECORDS SUMMARY | 2023-12-26 13:16 | XMS_ITS | Encounter Summary ---
Author Organization [facility] Address [address] [place] [address] Care Team Providers Care Director Of Business Continuity Name Role Phone Unavailable Primary Care Provider Unavailabl e Encounter Details Date Type Department Care Team (Late st Contact Info) Description 11/13/2008 Orders Only [facility] - [facility] ([facility] [address] [place], [place] [address] Kayli Engel FNP [address] [place], [place] [id number] Social History Tobacco Use Types Packs/Day Years Used Date Smoking Tobacco: Never Assessed Sex and Gender Information Value Date Recorded Sex Assigned at Not on file Gender Identity Not on file Sexual Orientation Not on file documented as of this encounter Plan of Treatment Not on file documented as of this encounter Procedures Procedure Name Priority Date/Time Associated Diagnosis Comments CYTOPATHOLOGY Routine 11/13/2008 0:00 EDT documented in this encounter Results * CYTOPATHOLOGY (11/13/2008 0:00 EDT) Pathology Report: CYTOPATHOLOGY REPORT ? Reports generated via electronic interface contain original data; ? however they are lacking the format of the original report. ? Caution should be taken when reading/interpreti ng unformatted reports. ? Name: ? STEVE MARX ? Accession #: ? [id number] ? : ? 1955 (Age: 53) ??F ?Collect Date: ? 11/13/2008 ? Location: ? [facility] ? Receive Date: ? 11/14/2008 ? Provider: ?KAYLI OSULLIVAN ? Copy to: ? Specimen/Source: ?Pap Test, Cervix/Endocervix, ThinPrep Imaging System ? with manual evaluation ? Last Menstrual Period: ? Other: ? HPVA - HPV testing requested if ASC-US on the current ThinPrep Pap test. ? SPECIMEN ADEQUACY ? Satisfactory for Evaluation ? - transformation zone component present ? GENERAL CATEGORIZATION ? Negative for Intraepithelial Lesion or Malignancy ? Document reviewed and electronically signed by: ? Lynan Fortunato, CT(ASCP) ? Report Date: ??11/20/2008 16:03 ? End of Report ? [facility] 11/13/2008 11/14/2008 Kayli Engel [employer] PATHOLOGY ORDERABLES [facility] [address] [place] [address] documented in this encounter Visit Diagnoses Not on filedocumented in this encounter"
--- OUTSIDE RECORDS SUMMARY | 2023-12-26 13:16 | XMS_ITS | Encounter Summary ---
[place] [address] Care Team Providers Care Shower Room Attendant Name Role Phone Christine Fuentes Primary Care Provider +1- [phone] Encounter Details Date Type Department Care Team (Late st Contact Info) Description 01/28/2019 Telephone Hematology [place] [phone] Serena Tran Social History Tobacco Use Types Packs/Day Years [...] encounter Miscellaneous Notes * Telephone Encounter - Serena Tran - 01/28/2019 4:35 PM EST Spoke to patient about new referral that came to us from PCP. Patient is not having any new issues. She wants to be followed in the breast program, but since Barbara has retired, she wanted to make sure she was on the recall list for 07/2019. documented in this encounter Plan of Treatment Not on file documented as of this encounter Visit Diagnoses Not on filedocumented in this encounter Care Teams Shower Room Attendant Relationship Specialty Start Date End Date Christine Fuentes PA [address] [place] [address] PCP - General Family Medicine 01/24/17 10/08/19 documented as of this encounter
--- OUTSIDE RECORDS SUMMARY | 2023-12-26 13:16 | XMS_ITS | Encounter Summary ---
Author Organization [facility] Address [address] [place] [address] Care Team Providers Care Auto Hiker Name Role Phone Christine Fuentes PA-C Primary Care Provider + Encounter Details Date Type Department Care Team (Late st Contact Info) Description 01/22/2021 Lab Requisition [facility] Pathology & Laboratory Medicine - [address] [address] Katie Leyva MD [address] [place] [address] [address] [place], [place] [address] Encounter for other general examination Social History [...] Name Priority Date/Time Associated Diagnosis Comments PAP TEST Today 01/21/2021 9:45 EST Encounter for other general examination HPV DNA DETECTION WITH GENOTYPING, PCR Today 01/21/2021 9:45 EST Encounter for other general examination documented in this encounter Results * HUMAN PAPILLOMAVIRUS (HPV) DETECTION-HIGH RISK TYPES (01/21/2021 9:45 EST) HPV other High Risk types, PCR Negative Negative 02/02/2021 11:04 [facility] Comment:No E6 or E7 mRNA is detected from HPV types 16,18,31,33,35,39,45,51,52,56,58,59,66, and 68 by farmworker turkey farm mediated amplification. Papanicolaou smear specimen (specimen) CERVIX UTERI STRUCTURE / Unknown 01/21/2021 9:45 EST 01/28/2021 12:05 EST Katie Leyva MD MICROBIOLOGY - GENER AL ORDERABLES [facility] [address] [place] [address] * PAP TEST (01/21/2021 9:45 EST) Specimens A. Cervix and/or Endocervix , ThinPrep Imaging System with Manual Evaluation 02/02/2021 11:04 [facility] Specimen Adequacy Satisfactory for Evaluation - transformation zone component present 02/02/2021 11:04 [facility] General Categorization Negative for intraepithelial lesion or malignancy 02/02/2021 11:04 [facility] Attestation . 02/02/2021 11:04 [facility] at [address] Clinical History See below 02/03/20 11:04 [facility] HPV The result for the Human Papillomavirus (HPV) Detection-High Risk Types is Negative. No E6 or E7 mRNA is detected from HPV types 16,18,31,33,35,39 ,45,51,52,56,58,5 9,66, and 68 by farmworker turkey farm mediated amplification.Harriett ting was performed on specimen [id number] and was resulted on 02/02/2021 0921 EST by IVORY, LAB INSTRUMENT RESULTS IN 02/02/2021 11:04 [facility] Performing Lab [facility] 02/02/2021 11:04 [facility] Scanned Images 02/02/2021 11:04 EST [facility] Papanicolaou smear specimen (specimen) CERVIX UTERI STRUCTURE / Unknown 01/21/2021 9:45 EST 01/22/2021 13:54 EST Katie Leyva MD PATHOLOGY ORDERABLES [facility] [address] [place] [address] documented in this encounter Visit Diagnoses Diagnosis Encounter for other general examination documented in this encounter Care Teams Auto Hiker Relationship Specialty Start Date End Date Christine Fuentes PA-C [address] [place] [address] PCP - General 10/23/16 documented as of this encounter
--- OUTSIDE RECORDS SUMMARY | 2023-12-26 13:16 | XMS_ITS | Encounter Summary ---
Author Organization [facility] [place] [address] Care Team Providers Care Hydraulic Repairer Name Role Phone Christine Fuentes Primary Care Provider +1- [phone] Encounter Details Date Type Department Care Team (Late st Contact Info) Description 08/29/2018 Orders [place] [address] Bautista Mcgrath MD [facility] [place] [address] Fatty liver Social History Tobacco Use Types [...] disease documented in this encounter Care Teams Hydraulic Repairer Relationship Specialty Start Date End Date Christine Fuentes PA [address] [place] [address] PCP - General Family Medicine 01/24/17 10/08/19 documented as of this encounter
--- OUTSIDE RECORDS SUMMARY | 2023-12-26 13:16 | XMS_ITS | Referral Summary ---
Author Organization [facility] Address [address] [place] [address] Care Team Providers Care Sleep Manager Name Role Phone Christine Fuentes PA-C Primary [...] HCL ORAL Take by mouth daily. Active Social History Tobacco Use Types Packs/Day Years [...] on file Sexual Orientation Not on file Last Filed Vital Signs Vital Sign Reading Time Taken Comments Blood Pressure 136/88 10/23/2016 1927 EDT Pulse 88 10/23/2016 1930 EDT Temperature 35.8 ??C (96.4 ??F) 10/23/2016 1930 EDT Respiratory Rate 18 10/23/2016 1629 EDT Oxygen Saturation 96% 10/23/20161926 EDT Inhaled Oxygen Concentration - - Weight 74.8 kg (165 lb) 10/23/2016 1629 EDT Height 161.3 cm (5' 3.5) 10/23/2016 1629 EDT Body Mass Index 28.77 10/23/2016 1629 EDT Plan of Treatment Not on file Care Teams Sleep Manager Relationship Specialty Start Date End Date Christine Fuentes PA-C [address] [place] [address] PCP - General 10/23/16
--- OUTSIDE RECORDS SUMMARY | 2023-12-26 13:16 | XMS_ITS | Encounter Summary ---
Author Organization [facility] Address [address] [place] [address] Care Team Providers Care Morgue Librarian Name Role Phone Christine Fuentes PA-C Primary Care Provider + Encounter Details Date Type Department Care Team (Latest Contact Info) Description 04/10/2017 9:46 EST - 04/10/2017 23:59 EST Hospital Encounter [address] [address] Unknown, Provider, MD Discharge Disposition: Home or Self Care Social [...] Code Departure Means Destination Home or Self Prison documented in this encounter Plan of Treatment Not on file documented as of this encounter Visit Diagnoses Not on filedocumented in this encounter Care Teams Morgue Librarian Relationship Specialty Start Date End Date Christine Fuentes PA-C [address] [place] [address] PCP - General 10/23/16 documented as of this encounter
--- OUTSIDE RECORDS SUMMARY | 2023-12-26 13:16 | XMS_ITS | Encounter Summary ---
Author Organization [facility] Address [address] [place] [address] Care Team Providers Care Asphalt Blender Name Role Phone Ernie Marcos PA-C Primary Care Provider + Encounter Details Date Type Department Care Team ([facility] st Contact Info) Description 01/06/2017 Results Only [facility] [phone] Ernie Marcos PA-C [address] [place] [address] Social History Tobacco Use Types Packs/Day Years [...] Diagnosis Comments PAP TEST- RESULT ONLY Routine 01/06/2017 0:00 EST documented in this encounter Results * PAP TEST- RESULT ONLY (01/06/2017 0:00 EST) Pathology Report: CYTOPATHOLOGY REPORT Reports generated via electronic interface contain original data; however they are lacking the format of the original report. Caution should be taken when reading/interpreti ng unformatted reports. Name: ? STEVE MARX ? Accession #: ? [id number] ? : ? 1955 (Age: 61) ??F ?Collect Date: ? 01/06/2017 ? Location: ? [facility] ? Receive Date: ? 01/10/2017 ? Provider: ERNIE MARCOS PA-C Copy to: ? Final Report SPECIMEN ADEQUACY ? Satisfactory for Evaluation - transformation zone component present GENERAL CATEGORIZATION ? Negative for Intraepithelial Lesion or Malignancy ?? Menstrual/Pregnanc y Status: ??Post Menopausal Specimen/Source: ??Pap Test, Cervix/Endocervix, ThinPrep Imaging System with manual evaluation Document reviewed and electronically signed by: ? Whitney You RUST(ASCP) ? Report ??Date: 01/20/2017 13:37 HPV with Pap Test ? Date Ordered: ? 01/20/2017 ? Status: ?? Signed Out ?Date Complete: ? 01/23/2017 ? By: ??System Interface ? Date Reported: ? 01/23/2017 ? Interpretation RESULT: Negative for HPV. No E6 or E7 mRNA is detected from HPV types 16,18,31,33,35, 39,45,51,52,56,58, 59,66, and 68 by buckle sewer mediated amplification. Comments Document reviewed and electronically signed by: ? System Interface ? Report date: 01/23/2017 By the signature above, the attending physician certifies that he/she has personally conducted a gross and/or microscopic examination of the described specimens and rendered or confirmed the above diagnosis. End of Report [facility] 01/06/2017 01/10/2017 Ernie Marcos PA-C PATHOLOGY ORDERA [facility] [address] [place] [address] documented in this encounter Visit Diagnoses Not on filedocumented in this encounter Care Teams Asphalt Blender Relationship Specialty Start Date End Date Ernie Marcos PA-C [address] [place] [address] PCP - General 10/23/16 documented as of this encounter
--- OUTSIDE RECORDS SUMMARY | 2023-12-26 13:16 | XMS_ITS | Clinical Summary ---
Author Organization [facility] Address [facility] [place] [address] Care Team Providers Care Operating Room Technologist Name Role Phone Unknown Primary Care Provider Unavailabl e Allergies Active Allergy Reactions Criticality Noted Date Comments Adhesive Rash High 02/21/2018 Nitrofurantoin Monohyd/M-Cryst Medium Rash,( Macrobid) Medications Medication Sig Dispensed Refills Start Date End Date Status aspirin 81 mg EC tablet Take 81 mg by mouth daily. Active hydrocortisone 2.5 % Cream Mix with ketoconazole and apply to affected areas in the groin twice daily as needed, then decrease to twice weekly. 30 g 3 07/03/2017 Active Additional Information Patient not taking.Reported on 03/30/2018 ketoconazole (NIZORAL) 2 % Cream Mix with hydrocortisone and apply to affected areas in the groin twice daily as needed, then decrease to twice weekly 30 g 3 07/03/2017 Active Additional Information Patient not taking.Reported on 03/30/2018 cholecalciferol, Vitamin D3, 2,000 unit Capsule Take 1 capsule by mouth daily. 03/16/2018 Active fish oil-omega-3 fatty acids 1,000 mg Capsule Take 1 capsule by mouth daily. 03/16/2018 Active acetaminophen (TYLENOL) 500 mg TabletIndications: pain Take 2 tablets by mouth every 8 hours as needed for Pain. Indications: Pain 03/16/2018 Active Additional Information Patient not taking.Reported on 08/28/2018 amitriptyline (ELAVIL) 10 mg Tablet Take 2 tablets by mouth nightly. 03/16/2018 Active buPROPion (WELLBUTRIN SR) 100 mg tablet sustained-release 12 hr Take 1 tablet by mouth daily. 03/16/2018 Active escitalopram (LEXAPRO) 10 mg Tablet Take 1 tablet by mouth daily. 03/16/2018 Active levothyroxine (SYNTHROID) 88 mcg Tablet Take 1 tablet by mouth daily. 03/16/2018 Active multivitamin (THERAGRAN) Tablet Take 1 tablet by mouth daily. 03/16/2018 Active oxyCODONE (ROXICODONE) 5 mg Tablet Take 1 tablet by mouth every 6 hours as needed for Pain (FOR PAIN UNCONTROLLED BY TYLENOL). 5 tablet 03/16/2018 Active Additional Information Patient not taking.Reported on 08/28/2018 magnesium citrate 100 mg Tablet Take by mouth nightly. Active lactobacillus rhamnosus, GG, (CULTURELLE) 10 billion cell Capsule Take 1 capsule by mouth daily. Active Active Problems Problem Noted Date Diagnosed Date Breast cancer 03/15/2018 Atypical ductal hyperplasia of left breast 04/13 DCIS (ductal carcinoma in situ) of breast 2010 Family History Medical History Relation Comments Breast Cancer Mother Breast Cancer Other Relation Status Comments Brother Alive Father (Age 85) Maternal Grandfather (Age 45) Maternal Grandmother (Age 75) Mother (Age 68) Other (Age 70) Paternal Grandfather (Age 45) Paternal Grandmother (Age 80) Sister Alive Social History Tobacco Use Types Packs/Day Years [...] Pulse 77 08/28/2018 8:24 AM EDT Temperature 36.8 ??C (98.3 ??F) 03/30/2018 1:59 PM ES T Respiratory Rate 16 03/30/2018 1:59 PM EST Oxygen Saturation 98% 03/30/2018 1:59 PM EST Inhaled Oxygen Concentration - - Weight 77.7 kg (171 lb 6.4 oz) 08/28/2018 8:24 A M EDT Height 160.5 cm (5' 3.19) 08/28/2018 8:24 AM ED T Body Mass Index 30.18 08/28/2018 8:24 AM EDT Plan of Treatment Health Maintenance Due Date Last Done Comments CT Colonography 1955 Colonoscopy 1955 Colorectal Cancer Screening 1955 FIT DNA 1955 FIT 1955 Sigmoidoscopy (10 year) with FIT yearly 1955 Sigmoidoscopy 1955 Hepatitis C Screening 1974 Tetanus/Diphtheria/Pertussis Vaccines (1 - Tdap) 1975 Breast Cancer Share Decision Needed 1996 Zoster vaccine (1 of 2) 2006 Advance Directive 2011 Breast Cancer screening 01/23/2020 01/22/2018 Bone Density Scan 2021 Pneumoccocal Vaccine: 65+ (1 of 1 - PCV) 2021 Covid-19 Vaccine (4 - 2022-2 4 season) 2023 12/28/2022, 11/29/2021, 12/28/2020 Influenza (Flu) vaccine (1 o f 1 - Influenza standard series) 10/22/2023 Diabetes Screening (HgbA1C o r Glucose) Discontinued 08/28/2018, 08/28/2018 Lipid Screening Discontinued 08/28/2018 Medical Devices Implanted Type Area Addiction Specialist Device Identifier Shelf Expiration Date Model / Serial / Lot Breast Clip-02/02/20 17 Implanted: by Babs Duvall MD (Quantity not on file) Breast Clip Left: Breast [employer] - [employer] FOR EVIVA TITANIUM BIOPSY SITE MARKER / / [id number] Description:cylinder Breast Clip-01/31/20 18 Implanted:12/2017 by Babs Duvall MD (Quantity not on file) Breast Clip Breast Cylinder 09/14/2018 SMARK-EVIVA- 13 / [id number] Procedures Procedure Name Priority Date/Time Associated Diagnosis Comments LIPID PANEL (REFLEX DIRECT LDL) Routine 08/28/2018 10:30 AM EDT Fatty liver HEMOGLOBIN A1C Routine 08/28/2018 10:30 AM EDT Fatty liver MAMMO SCREENING CAD AND IMMANUEL BILATERAL Routine 01/22/2018 10:07 AM EST Breast cancer screening, high risk patient History of breast cancer from Last 3 Months or Most Recently Relevant to Health Maintenance Results * Hemoglobin A1c (08/28/2018 10:30 AM EDT) Hemoglobin A1c 5.4 4.3 - 5.6 % [facility] Comment: Reference Range: 4.3 - 5.6% 5.7 - 6.4% - Increased Risk of Developing Diabetes Mellitus >= 6.5% - Consistent with diagnosis of Diabetes Mellitus In the absence of hyperglycemia (i.e. plasma glucose > 200 mg/dL) or classic symptoms of hyperglycemia a repeat measurement of HbA1c should be performed on a separate sample to confirm the diagnosis. Diagnosis and Classification of Diabetes Mellitus, Diabetes Care 2013; 36: Suppl. 1, N57-61 Estimated Average Glucose 109 mg/dL [facility] Comment: eAG equivalents for HbA1c percentages: HbA1c(%) ?eAG(mg/dL) 6.0 ?126 6.5 ?140 7.0 ?154 7.5 ?169 8.0 ?183 8.5 ?197 9.0 ?212 9.5 ?226 10.0 ? 240 Limitations: The eAG calculation has not been validated on women, individuals below 18 years old and above 70 years old, and individuals with hemoglobinopathies. Additional resources are available on the ADA website. Willie KAUFMAN, Trenton J, Dorothy R, et al. ??Translating the A1C assay into estimated average glucose values. ??Diabetes Care 2008:31(8):9574-0157. Blood specimen (specimen) 08/28/2018 10:30 AM EDT 08/28/2018 10:39 AM EDT Narrative Resulting Agency Comment Spec In Lab Nella Acevedo MD CHEMISTRY ORDERABLES [facility] [place] [address] * Lipid Panel (08/28/2018 10:30 AM EDT) Cholesterol, Total 220 mg/dL [facility] Comment: Lower Risk: <200 mg/dL Average Risk: 200-239 mg/dL Higher Risk: >gk=667 mg/dL Triglyceride 172 mg/dL [facility] Comment: Average Risk/Lower Risk: <150 mg/dL Borderline High Risk: 150-199 mg/dL High Risk: 200-499 mg/dL Very High Risk: >sd=152 mg/dL HDL Cholesterol 62 mg/dL [facility] Comment: Males: ?? Higher Risk: <40 mg/dL Females: ?? HIgher Risk: <50 mg/dL LDL Cholesterol 124 mg/dL [facility] Comment: Lowest Risk: <100 mg/dL Lower Risk: 100-129 mg/dL Borderline High Risk: 130-159 mg/dL High Risk: 160-189 mg/dL Very High Risk: >sl=241 mg/dL Cholesterol/HDL Ratio 3.5 ratio [facility] Lipid Interpretation See Note [facility] Comment: Lipid management should be guided by a patient? s ASCVD risk, goals and preferences. ACC/AHA Guidelines recommend high intensity statin if clinical ASCVD or LDL greater than or equal to 190 mg/dL. http://CADFORCEurl.com/BRG-XAY-Nolcmyfkx Adults aged 40-75 with LDL 70-189 mg/dL should have their 10 year ASCVD risk estimated with the ACC/AHA ASCVD risk steel estimator http://tools.acc.org/EJXET-Jhpq-Bknofjmgp/ Statin should be discussed if risk greater than or equal to 7.5% in non-diabetics. With diabetes, moderate intensity statin is recommended if risk less than 7.5%, high intensity if risk greater than or equal to 7.5%. Annual lipid monitoring on statins is not necessary. Evaluate secondary causes of Triglycerides greater than 500 mg/dL or LDL greater than 190 mg/dL: See table 6 of ACC/AHA Guideline. Lifestyle modification is a critical component of ASCVD risk reduction. Blood specimen (specimen) 08/28/2018 10:30 AM EDT 08/28/2018 10:39 AM EDT Narrative Resulting Agency Comment Spec In Lab Nella Acevedo MD CHEMISTRY ORDERABLES [facility] [place] [address] * Mammo Screening Cad and Immanuel Bilateral (01/22/2018 10:07 AM EST) Anatomical Region Laterality Modality Breast Bilateral Mammography Impressions 01/22/2018 10:44 AM EST BIRADS CATEGORY 0: INCOMPLETE MAMMOGRAM. Needs additional imaging evaluation. RECOMMENDATION: The patient will be contacted regarding the additional imaging. Narrative 01/22/2018 10:44 AM EST REASON FOR EXAM: Screening TECHNIQUE: CC and MLO views were obtained of the Bilateral breast.Computer aided detection was used. 3D tomosynthesis images were obtained in addition to 2D images. FINDINGS: Breast density:There are scattered areas of fibroglandular density. Left breast. ??There are no suspicious microcalcifications, masses, or areas of distortion. New postsurgical changes The Right breast is abnormal and additional imaging is required. There is a ??1.2 cm of note microcalcifications in the deep central RIGHT breast, 8 cm from the nipple Rhoda Brumfield APRN IMG MAMMO ORDERA BLES from Last 3 Months or Most Recently Relevant to Health Maintenance Advance Directives * Full Code (Latest Code Status on File) Date Activated Date Inactivated Comments 03/15/2018 10:21 PM 03/16/2018 1:55 PM Question Answer Comments Does patient have capacity to make decision: Yes * Full Code Date Activated Date Inactivated Comments 03/15/2018 5:59 PM 03/15/2018 10:20 PM Question Answer Comments Does patient have capacity to make decision: Yes * Full Code Date Activated Date Inactivated Comments 03/30/2017 12:31 PM 03/30/2017 5:07 PM Question Answer Comments Does patient have capacity to make decision: Yes Care Teams Operating Room Technologist Relationship Specialty Start Date End Date Unknown None PCP - General 10/09/19
--- OUTSIDE RECORDS SUMMARY | 2023-12-26 13:16 | XMS_ITS | Encounter Summary ---
Author Organization [facility] Address [address] [place] [address] Care Team Providers Care Drywall Taper Helper Name Role Phone Unavailable Primary Care Provider Unavailabl e Encounter Details Date Type Department Care Team (Late st Contact Info) Description 10/29/2007 Before PRISM Converted Visit (Maple) [facility] - Maple conversion [address] [place] [address] Kayli Engel FNP [address] [place], [place] [id number] Social History Tobacco Use Types Packs/Day Years Used Date Smoking Tobacco: Never Assessed Sex and Gender Information Value Date Recorded Sex Assigned at Not on file Gender Identity Not on file Sexual Orientation Not on file documented as of this encounter Plan of Treatment Not on file documented as of this encounter Procedures Procedure Name Priority Date/Time Associated Diagnosis Comments CYTOPATHOLOGY Routine 10/29/2007 0:00 EDT documented in this encounter Results * CYTOPATHOLOGY (10/29/2007 0:00 EDT) Pathology Report: CYTOPATHOLOGY REPORT ? Reports generated via electronic interface contain original data; ? however they are lacking the format of the original report. ? Caution should be taken when reading/interpreti ng unformatted reports. ? Name: ? STEVE MARX ? Accession #: ? [id number] ? : ? 1955 (Age: 52) ??F ?Collect Date: ? 10/29/2007 ? Location: ? [facility] ? Receive Date: ? 10/30/2007 ? Provider: ?KAYLI OSULLIVAN ? Copy to: ? Specimen/Source: ?ThinPrep Pap Test, Source Not Provided, processed on ? Cytyc ThinPrep Imaging System, with manual evaluation ? Last Menstrual Period: ? Previous Gynecologic Pathology: ? Yes: Abnormal a few yrs ago ? Treatment History: ? Colposcopy: inconclusive results ? Other: ? HPVA - HPV testing requested if ASC-US on the current ThinPrep Pap test. ? SPECIMEN ADEQUACY ? Satisfactory for Evaluation ? - transformation zone component present ? GENERAL CATEGORIZATION ? Negative for Intraepithelial Lesion or Malignancy ? Document reviewed and electronically signed by: ? Sowmya Roberts, SCT(ASCP) ? Report Date: ??11/01/2007 09:25 ? End of Report ? [facility] 10/29/2007 10/30/2007 Kayli Engel STIFF LEG DERRICK OPERATOR PATHOLOGY ORDERABLES [facility] [address] [place] [address] documented in this encounter Visit Diagnoses Not on filedocumented in this encounter
--- OUTSIDE RECORDS SUMMARY | 2023-12-26 13:16 | XMS_ITS | Encounter Summary ---
Author Organization [facility] Address [address] [place] [address] Care Team Providers Care Timber Repairer Name Role Phone Unknown, Provider Primary Care Provider Unausha ilable Encounter Details Date Type Department Care Team (Late st Contact Info) Description 12/11/2013 Results Only [facility] - [facility] ([facility]) [address] [place], [place] [address] Kayli Engel FNP [address] [place], [place] [address] Social History Tobacco Use Types Packs/Day Years [...] Diagnosis Comments PAP TEST- RESULT ONLY Routine 12/11/2013 0:00 EDT documented in this encounter Results * PAP TEST- RESULT ONLY (12/11/2013 0:00 EDT) Pathology Report: CYTOPATHOLOGY REPORT Reports generated via electronic interface contain original data; however they are lacking the format of the original report. Caution should be taken when reading/interpreti ng unformatted reports. Name: ? STEVE MARX ? Accession #: ? [id number] : ? 1955 (Age: 58) ??F ?Collect Date: ? 12/11/2013 Location: ? [facility] ? Receive Date: ? 12/13/2013 Provider: ?KAYLI ENGEL CRAFT DEMONSTRATOR Copy to: ? Specimen/Source: ?Pap Test, Cervix/Endocervix, ThinPrep Imaging System with manual evaluation Last Menstrual Period: ? Many years ago Previous Gynecologic Pathology: ? ASC-US: Hx in 2010 ? SPECIMEN ADEQUACY ? Satisfactory for Evaluation - transformation zone component present GENERAL CATEGORIZATION ? Negative for Intraepithelial Lesion or Malignancy ? Document reviewed and electronically signed by: ? Olga Marquez, CT(ASCP)(IAC) ? Report Date: ??12/18/2013 11:05 End of Report [facility] 12/11/2013 12/13/2013 Kaylijuan f Engel CRAFT DEMONSTRATOR PATHOLOGY ORDERABLES Performing Organization Address City/State/[facility] Co de Phone Number [facility] [address] [place] [address] documented in this encounter Visit Diagnoses Not on filedocumented in this encounter Care Teams Timber Repairer Relationship Specialty Start Date End Date Unknown, Provider, PCP - General 02/02/10 10/22/16 documented as of this encounter
--- OUTSIDE RECORDS SUMMARY | 2023-12-26 13:16 | XMS_ITS | Encounter Summary ---
Author Organization [facility] Address [address] [place] [address] Care Team Providers Care Market Development Director Name Role Phone Christine Fuentes PA-C Primary Care Provider + Encounter Details Date Type Department Care Team (Late st Contact Info) Description 05/10/2023 Lab Requisition [facility] - [address] [address] Outr Resulting Lab, Provider Social History Tobacco Use Types Packs/Day Years [...] Procedure Name Priority Date/Time Associated Diagnosis Comments T3, TOTAL Routine 05/10/2023 9:05 EDT documented in this encounter Results * T3, TOTAL (05/10/2023 9:05 EDT) T3, Total 119 97 - 169 ng/dL 05/10/2023 22:23 EDT [facility] Blood VENOUS BLOOD / Unknown 05/10/2023 9:05 EDT 05/10/2023 21:33 EDT Provider Outr Resulting Lab CHEMISTRY & BLOOD GAS ORDERABLES [facility] [address] [place] [address] documented in this encounter Visit Diagnoses Not on filedocumented in this encounter Care Teams Market Development Director Relationship Specialty Start Date End Date Christine Fuentes PA-C [address] [place] [phone] PCP - General 10/23/16 documented as of this encounter
--- OUTSIDE RECORDS SUMMARY | 2023-12-26 13:16 | XMS_ITS | Encounter Summary ---
[place] [address] Care Team Providers Care Skin Fitter Name Role Phone Unknown Primary Care Provider Unavailabl e Encounter Details Date Type Department Care Team (Late st Contact Info) Description 04/07/2021 [place] [phone] January Davis Social History Tobacco Use Types [...] * Telephone Encounter - January Davis - 04/07/2021 8:45 AM EST Returned Cecilia's call. Explained transition to ATB. All info given and she will contact them. documented in this encounter Plan of Treatment Not on file documented as of this encounter Visit Diagnoses Not on filedocumented in this encounter Care Teams Skin Fitter Relationship Specialty Start Date End Date Unknown None PCP - General 10/09/19 documented as of this encounter
--- OUTSIDE RECORDS SUMMARY | 2023-12-26 13:16 | XMS_ITS | Encounter Summary ---
Author Organization [facility] [place] [address] Care Team Providers Care Electric Motor Control Assembler Name Role Phone Unknown Primary Care Provider Unavailabl e Encounter Details Date Type Department Care Team (Late st Contact Info) Description 11/26/2019 11:10 AM EDT Office [place] [address] Shazia Boyd, UNIFORM CAP OPERATOR [facility] [place] [address] History of breast cancer Social History Tobacco Use Types Packs/Day Years [...] as of this encounter Progress Notes * Shazia Boyd, MIRIAN - 11/26/2019 11:10 AM EDT Cecilia Marx is a [address] y[address] Brice, here for annual follow up. Breast Cancer Summary Right breast DCIS s/p bilateral mastectomy (no recon) and right SLNB Date: 03/15/18 5 cm, intermediate grade 0 of 4 LNs positive cells,, ER+/TX+ pTNM: ---(m)Tis N0 ([facility]) Left breast, mastectomy: - Focal atypical lobular hyperplasia - Intraductal papillomas, sclerosing adenosis, columnar cell change/hyperplasia, ??usual ductal hyperplasia, and apocrine cysts - Changes consistent with prior surgical site History of Right breast DCIS s/p partial mastectomy and RT in 2010 ([facility]) Cecilia has been feeling well. She has [...] DCIS s/p PM and RT in 2010 s/pbilateral mastectomy and right SLNB. Well healed mastectomy sites with redundant soft tissue on the left medially and laterally. No evidence of seroma or persistent hematoma. Plan: Cecilia does not wish to have scheduled follow up at this time. She has a good PCP and will getchest wall exams annually. She knows to call for any concerns in the future and I would be happy tosee her. Shazia Boyd APRN documented in this encounter Plan of Treatment Not on file documented as of this encounter Visit Diagnoses Diagnosis History of breast cancer Personal history of malignant neoplasm of breast documented in this encounter Care Teams Electric Motor Control Assembler Relationship Specialty Start Date End Date Unknown None PCP - General 10/09/19 documented as of this encounter
--- OUTSIDE RECORDS SUMMARY | 2023-12-26 13:17 | XMS_ITS | Encounter Summary ---
Author Organization [facility] Address [facility] [place] [address] Care Team Providers Care Lip Cutter And Scorer Name Role Phone Christine Fuentes Primary Care Provider [phone] Encounter Details Date Type Department Care Team (Latest Contact Info) Description 01/30/2018 12:39 PM EST - 01/30/2018 1:02 PM EST Hospital [place] [address] Anita Valentine MD [facility] DR DIAGNOST[place] [address] Abnormal finding on breast imaging Discharge Disposition: Home Social History Tobacco Use Types Packs/Day Years Used Date Smoking Tobacco: Former Cigarettes Q uit: 10/19/2011 Smokeless Tobacco: Never Sex and Gender Information Value Date Recorded Sex Assigned at Not on file Gender Identity Not on file Sexual Orientation Not on file documented as of this encounter Medications at Time of Discharge Medication Sig Dispensed Refills Start Date End Date hydrocortisone 2.5 % Cream Mix with ketoconazole and apply to affected areas in the groin twice daily as needed, then decrease to twice weekly. 30 g 3 07/03/2017 ketoconazole (NIZORAL) 2 % Cream Mix with hydrocortisone and apply to affected areas in the groin twice daily as needed, then decrease to twice weekly 30 g 3 07/03/2017 aspirin 81 mg EC tablet Take 81 mg by mouth daily. buPROPion (WELLBUTRIN SR OR ZYBAN) 150 mg Tablet Sustained Release 12 hr Take by mouth. 03/16/2018 fish oil-omega-3 fatty acids 1,000 mg Capsule Take 2 g by mouth daily. ibuprofen (ADVIL;MOTRIN) 200 mg Tablet Take 200 mg by mouth every 6 hours as needed for Pain. 03/16/2018 magnesium 250 mg Tablet Take by mouth. 03/16/2018 escitalopram (LEXAPRO) 10 mg Tablet 12/26/2016 03/16/2018 levothyroxine (SYNTHROID) 75 mcg Tablet Take 75 mcg by mouth daily. 03/16/2018 Cholecalciferol, Vitamin D3, 2,000 unit Capsule Take by mouth. 03/16/2018 amitriptyline (ELAVIL) 10 mg tablet 30mg, PO, QHS 05/04/201003/16 documented as of this encounter Plan of Treatment Not on file documented as of this encounter Procedures Procedure Name Priority Date/Time Associated Diagnosis Comments MAMMO CALL BACK DIAGNOSTIC CAD RIGHT Routine 01/30/2018 1:05 PM EST Abnormal finding on breast imaging documented in this encounter Results * Mammo Call Back Diagnostic Cad Right (01/30/2018 1:05 PM EST) Anatomical Region Laterality Modality Breast Right Mammography Impressions 01/30/2018 3:27 PM EST Suspicious fine pleomorphic calcifications right deep central breast for which core biopsy is recommended. This is performed and dictated separately on the day of the patient's visit. BI-RADS Category 4: Suspicious Finding - Biopsy Should Be Considered Narrative 01/30/2018 3:27 PM EST EXAMINATION: MAMMO CALL BACK DIAGNOSTIC CAD RIGHT CLINICAL HISTORY: abnormal finding TECHNIQUE: True lateral, spot compression magnification CC and spot compression magnification true lateral views were obtained of the right breast deep central aspect. COMPARISON: This study was compared with prior images. FINDINGS: There are fine pleomorphic calcifications in a linear distribution in the deep central right breast, difficult to identify due to the location of the far posterior breast. These span 1 cm and there may be a faint grouping of sparse particles just lateral and posterior, within 1 cm. The aggregate diameter of this grouping is 1.3 cm. These are 8 cm posterior to the nipple. Anita Valentine MD IMG MAMMO ORDERABLES documented in this encounter Visit Diagnoses Diagnosis Abnormal finding on breast imaging Other (abnormal) findings on radiological examination of breast documented in this encounter Care Teams Lip Cutter And Scorer Relationship Specialty Start Date End Date Christine Fuentes PA [address] [place] [address] PCP - General Family Medicine 01/24/17 10/08/19 documented as of this encounter
--- OUTSIDE RECORDS SUMMARY | 2023-12-26 13:17 | XMS_ITS | Encounter Summary ---
Author Organization Formerly [facility], [facility] [place] [address] Care Team Providers Care Resident Care Supervisor Name Role Phone Christine Fuentes Primary Care Provider +1- [phone] Encounter Details Date Type Department Care Team (Latest Contact Info) Description 02/21/2018 1:54 PM EST - 02/21/2018 11:59 PM EST Hospital Encounter Hematology [place] [address] Ductal carcinoma in situ (DCIS) of breast, unspecified laterality; Family history of malignant neoplasm of breast Discharge Disposition: Home Social History Tobacco Use [...] Procedure Name Priority Date/Time Associated Diagnosis Comments RESEARCH VENIPUNCTURE Routine 02/21/2018 2:11 PM EST Ductal carcinoma in situ (DCIS) of breast, unspecified laterality Family history of malignant neoplasm of breast documented in this encounter Results * Research Venipuncture (02/21/2018 2:11 PM EST) Research Venipuncture Complete [facility] Blood specimen (specimen) 02/21/2018 2:11 PM EST 02/21/2018 2:18 PM EST Narrative Resulting Agency Comment Spec In Lab Avi Talbot MD CHEMISTRY ORDERABLES [facility] [place] [address] documented in this encounter Visit Diagnoses Diagnosis Ductal carcinoma in situ (DCIS) of breast, unspecified laterality Family history of malignant neoplasm of breast documented in this encounter Care Teams Resident Care Supervisor Relationship Specialty Start Date End Date Christine Fuentes PA [address] [place] [address] PCP - General Family Medicine 01/24/17 10/08/19 documented as of this encounter
--- OUTSIDE RECORDS SUMMARY | 2023-12-26 13:17 | XMS_ITS | Encounter Summary ---
[place] [address] Care Team Providers Care Executive Producer Name Role Phone Christine Fuentes Primary Care Provider +1- [phone] Encounter Details Date Type Department Care Team (Late st Contact Info) Description 04/10/2018 9:30 [place] [address] January Davis Social History Tobacco Use Types [...] encounter Progress Notes * January Davis - 04/10/2018 9:30 AM EST Cecilia Marx 1955 [id number] Prescription Received:Yes Insurance: Private Previous Fitting: First Fitting Diagnosis: right breast cancer Date of Diagnosis: 02.21.18 Date of Surgery: 03.15.18 Type of Surgery: Mastectomy Bilateral Lymph Nodes: Yes Additional Treatment: no additional tx Allergies Allergen Reactions ??? Adhesive Rash ??? Nitrofurantoin Monohyd/M-Cryst Rash,( Macrobid) Skin Condition: Fair Range of Motion: Fair Pain and Sensitivity Scale: 0 [facility] Manu- facturer Model Quantity In Stock Ordered Delivery Date Type L8030 ABC [id number] 2 Y 2.19.19 Sublimity L8020 ABC [id number] 2 N 2.19.19 3.5.19 Sublimity L8000 ABC [id number] 1 Y 2.19.19 BRA L8000 ABC [id number] 1 Y 2.19.19 BRA L8000 ABC 110-L-C/D-MINT [...] on filedocumented in this encounter Care Teams Executive Producer Relationship Specialty Start Date End Date Christine Fuentes PA [address] [place] [address] PCP - General Family Medicine 01/24/17 10/08/19 documented as of this encounter
--- OUTSIDE RECORDS SUMMARY | 2023-12-26 13:17 | XMS_ITS | Encounter Summary ---
[place] [address] Care Team Providers Care Surplus Property Disposal Agent Name Role Phone Christine Fuentes Primary Care Provider +1- [phone] Reason for Referral * Consultation (Urgent) - Closed Specialty Diagnoses / Procedures Referred By Contperez t Referred To Contact Hematology and Oncology Diagnoses Hormone receptor positive malignant neoplasm of breast, unspecified laterality Marla Brice MD [facility] [place] [address] [facility] [address] [place] [address] Referral ID Status Reason Start Date Expiration Date V isits Requested Visits Authorized [id number] Closed Consult, Test & Treat 02/02/2018 02/02/2019 1 1 Encounter Details Date Type Department Care Team (Late st Contact Info) Description 02/02/2018 Telephone Hematology [place] [address] Kiersten Wilson RN Social History Tobacco Use Types Packs/Day Years Used Date Smoking Tobacco: Former Cigarettes Q uit: 10/19/2011 Smokeless Tobacco: Never Sex and Gender Information Value Date Recorded Sex Assigned at Not on file Gender Identity Not on file Sexual Orientation Not on file documented as of this encounter Miscellaneous Notes * Telephone Encounter - Kiersten Wilson RN - 02/02/2018 11:12 AM EST Comprehensive Breast Program (CBP) Note ?? Reason for call: Contacted patient after Dr. Duvall informed her that her breast biopsy results indicated she has ductal carcinoma in situ, to introduce her to the CBP. Cecilia Marx is a 62 y.o. female with newly diagnosed ER/PA+ right breast DCIS (right breast stereotactic guided biopsy 01/30/2018 at [facility]). PERSONAL HISTORY of BREAST CANCER Cecilia Marx has a history of right breast DCIS treated with partial mastectomy ([address] Forrester) and radiotherapy (2010 at [facility], [facility]). Cecilia has a history of left breast wide local excision 03/30/[address] Morales (for ADH, ALH, benignpapillary lesion, etc.). She met with Dr. Stack in [facility] after this to discuss chemoprevention which she declined. We discussed whether she would want reconstruction should Cecilia decide upon or should mastectomy berecommended. She will consider this and let us [...] sent. She prefers to be seen in [facility] over [facility], but will take the earliest appt. She is interested in having a trained volunteer from [employer] patient support[employer] accompany her to provider apt. Requested someone [...] contact me with any additional questions or concerns.She has our contact information. FAMILY HISTORY Breast [...] Associated Diagnoses Orde r Schedule Referral to Familial Cancer Outpatient Referral Routine Hormone receptor positive malignant neoplasm of breast, unspecified laterality Ordered: 02/02/2018 documented as of this encounter Visit Diagnoses Diagnosis Hormone receptor positive malignant neoplasm of breast, unspecified laterality documented in this encounter Care Teams Surplus Property Disposal Agent Relationship Specialty Start Date End Date Christine Fuentes PA [address] [place] [address] PCP - General Family Medicine 01/24/17 10/08/19 documented as of this encounter
--- OUTSIDE RECORDS SUMMARY | 2023-12-26 13:17 | XMS_ITS | Encounter Summary ---
Author Organization [facility] [place] [address] Care Team Providers Care Coal Carrier Name Role Phone Christine Fuentes Primary Care Provider +1- [phone] Reason for Referral * Diagnostic Test (Routine) - Closed Specialty Diagnoses / Procedures Referred By Cherie abdul Referred To Contact Radiology Diagnoses Malignant neoplasm of right breast in female, estrogen receptor positive, unspecified site of breast Procedures MRI Breast wwo Contrast Marla Pearce MD [facility] [place] [address] [place] [address] Referral ID Status Reason Start Date Expiration Date V isits Requested Visits Authorized [id number] Closed Specialty Service Requested 02/10/2018 04/10/2018 1 1 Encounter Details Date Type Department Care Team (Late st Contact Info) Description 02/01/2018 Orders [place] [address] Marla Brice MD [facility] [place] [address] Malignant neoplasm of right breast in female, estrogen receptor positive, unspecified site of breast Social History Tobacco Use Types Packs/Day Years Used Date Smoking Tobacco: Former Cigarettes Q uit: 10/19/2011 Smokeless Tobacco: Never Sex and Gender Information Value Date Recorded Sex Assigned at Not on file Gender Identity Not on file Sexual Orientation Not on file documented as of this encounter Plan of Treatment Not on file documented as of this encounter Results * MRI Breast wwo Contrast Bilat (02/16/2018 12:10 PM EST) Anatomical Region Laterality Modality Breast Bilateral Magnetic Resonan ce Addenda Addendum by Babs Duvall MD on 02/16/2018 1:50 PM EST --------ADDENDUM #1-------- Left breast BI-RADS Category 1: Negative --------ORIGINAL REPORT -------- BILATERAL BREAST MRI CLINICAL INDICATION: Breast staging study, newly diagnosed breast cancer deep central right breast spanning 1.3 cm, 8 cm posterior to the nipple. TECHNIQUE: Multiplanar sequences were obtained pre- and post- Dotarem enhancement, to include SPGR weighted dynamic run-off and subtraction sequences obtained after the intravenous administration of 16 ccs of Dotarem. Computer algorithm analysis for lesion detection and kinetic contrast enhancement curve analysis was performed, using R[employer] software. COMPARISON STUDIES: Compared and/or correlated with prior studies including mammogram and core biopsy 01/22/2018, 01/30/2018. FINDINGS: Background Enhancement Pattern (first post Dotarem image): Mild (25-50% breast) Amount of Fibroglandular Tissue: Predominantly fatty density LEFT Breast:There are scattered foci in the left breast but no abnormal enhancing masses or morphologic abnormalities are identified. RIGHT Breast:There is a 2 cm post procedure complex in the right breast posterior deep central aspect. Directly anterior is a 1.5 cm area of clumped nonmass enhancement, corresponding to the area of microcalcifications mammographically. Deep central O'Clock 7.5 cm from the nipple by MRI Non mass enhancement: Distribution: Linear Enhancement: Initial upslope: Fast Delayed phase: Plateau Lymph Node Basins/Other: There is no evidence of internal mammary or axillary adenopathy.. No significant abnormalities are seen in the chest wall or skin.. IMPRESSION: 1.5 cm area of clumped nonmass enhancement in the biopsy bed. No evidence of multifocal or multicentric disease. No contralateral disease. RECOMMENDATION:Definitive surgical management. LEFT BREAST BIRADS RIGHT BREAST BIRADS 6. Known malignancy Impressions 02/16/2018 1:06 PM EST 1.5 cm area of clumped nonmass enhancement in the biopsy bed. No evidence of multifocal or multicentric disease. No contralateral disease. RECOMMENDATION:Definitive surgical management. LEFT BREAST BIRADS RIGHT BREAST BIRADS 6. Known malignancy Narrative 02/16/2018 1:06 PM EST BILATERAL BREAST MRI CLINICAL INDICATION: Breast staging study, newly diagnosed breast cancer deep central right breast spanning 1.3 cm, 8 cm posterior to the nipple. TECHNIQUE: Multiplanar sequences were obtained pre- and post- Dotarem enhancement, to include SPGR weighted dynamic run-off and subtraction sequences obtained after the intravenous administration of 16 ccs of Dotarem. Computer algorithm analysis for lesion detection and kinetic contrast enhancement curve analysis was performed, using RNDOMN software. COMPARISON STUDIES: Compared and/or correlated with prior studies including mammogram and core biopsy 01/22/2018, 01/30/2018. FINDINGS: Background Enhancement Pattern (first post Dotarem image): Mild (25-50% breast) Amount of Fibroglandular Tissue: Predominantly fatty density LEFT Breast:There are scattered foci in the left breast but no abnormal enhancing masses or morphologic abnormalities are identified. RIGHT Breast:There is a 2 cm post procedure complex in the right breast posterior deep central aspect. Directly anterior is a 1.5 cm area of clumped nonmass enhancement, corresponding to the area of microcalcifications mammographically. Deep central O'Clock 7.5 cm from the nipple by MRI Non mass enhancement: Distribution: Linear Enhancement: Initial upslope: Fast Delayed phase: Plateau Lymph Node Basins/Other: There is no evidence of internal mammary or axillary adenopathy.. No significant abnormalities are seen in the chest wall or skin.. Marla Blue MD IMG MRI ORDERABL ES documented in this encounter Visit Diagnoses Diagnosis Malignant neoplasm of right breast in female, estrogen receptor positive, unspecified site of breast Malignant neoplasm of right breast in female, estrogen receptor positive, unspecified site of breast documented in this encounter Care Teams Coal Carrier Relationship Specialty Start Date End Date Christine Fuentes PA [address] [place] [address] PCP - General Family Medicine 01/24/17 10/08/19 documented as of this encounter
--- OUTSIDE RECORDS SUMMARY | 2023-12-26 13:17 | XMS_ITS | Encounter Summary ---
Author Organization [place] [address] Care Team Providers Care Head Refrigeration Engineer Name Role Phone Christine Fuentes Primary Care Provider +1- [phone] Encounter Details Date Type Department Care Team (Late st Contact Info) Description 04/29/2018 Telephone [place] [address] Delon Tyson MD [facility] [place] [address] Social History Tobacco Use Types Packs/Day Years [...] encounter Miscellaneous Notes * Telephone Encounter - Delon Tyson MD - 04/29/2018 11:55 AM EDT Telephone Note Received call from Cecilia Arian Araseli who underwent bilateral mastectomy with sentinel lymph node on 03/16/2018. Patient doing well but states she noticed new pink skin changes around and under her incision. She states this is not warm and not painful. No fevers or drainage. As this is a new change I recommended that the patient be seen. I offered to evaluate the patient in the ED but the patient preferred to be seen in clinic tomorrow. I will route this note to appropriate secretaries and patienthas been instructed to call at [phone] tomorrow. She will also call back should she develop any fevers, chills, drainage, pain or with any questionsor concerns. Robert Tyson Vascular Surgery, PGY3 Pager #[phone] documented in this encounter Plan of Treatment Not on file documented as of this encounter Visit Diagnoses Not on filedocumented in this encounter Care Teams Head Refrigeration Engineer Relationship Specialty Start Date End Date Christine Fuentes PA [address] [place] [address] PCP - General Family Medicine 01/24/17 10/08/19 documented as of this encounter
--- OUTSIDE RECORDS SUMMARY | 2023-12-26 13:17 | XMS_ITS | Encounter Summary ---
[place] [address] Care Team Providers Care Ager Operator Name Role Phone Christine Fuentes Primary Care Provider +1- [phone] Encounter Details Date Type Department Care Team (Late st Contact Info) Description 05/08/2018 Telephone [place]ology [place] [id number] Trinh Lira Social History Tobacco Use Types Packs/Day Years [...] encounter Miscellaneous Notes * Telephone Encounter - Trinh Lira - 05/08/2018 [...] on filedocumented in this encounter Care Teams Ager Operator Relationship Specialty Start Date End Date Christine Fuentes PA [address] [place] [address] PCP - General Family Medicine 01/24/17 10/08/19 documented as of this encounter
--- OUTSIDE RECORDS SUMMARY | 2023-12-26 13:17 | XMS_ITS | Encounter Summary ---
Author Organization [facility] Address [facility] [place] [address] Care Team Providers Care Emissions Technician Name Role Phone Christine Fuentes Primary Care Provider +1- [phone] Reason for Visit * Reason Comments Follow-up Encounter Details Date Type Department Care Team (Late st Contact Info) Description 03/30/2018 1:30 PM EST Office [place] [address] Marla Brice MD [facility] [place] [address] Ductal carcinoma in situ (DCIS) of right breast Social History Tobacco Use Types Packs/Day [...] Sign Reading Time Taken Comments Blood Pressure 140/81 03/30/2018 1:59 PM EST Pulse 104 03/30/2018 1:59 PM EST Temperature 36.8 ??C (98.3 ??F) 03/30/2018 1:59 PM ES T Respiratory Rate 16 03/30/2018 1:59 PM EST Oxygen Saturation 98% 03/30/2018 1:59 PM EST Inhaled Oxygen Concentration - - Weight 75.3 kg (166 lb) 03/30/2018 1:59 PM EST Height - - Body Mass Index 28.49 03/15/2018 2:32 PM EST documented in this encounter Progress Notes * Marla Brice MD - 03/30/2018 1:30 PM EST [facility] Breast [facility] Surgical Oncology Postop Visit Reason for Visit: Cecilia Marx returns for postoperative visit. s/p bilateral mastectomy and right SLNB Breast Cancer Summary Right breast DCIS s/p bilateral mastectomy (no recon) and right SLNB Date: 03/15/18 5 cm, intermediate grade 0 of 4 LNs positive cells,, ER+/PA+ pTNM: ---(m)Tis N0 (AJCC) RIght breast DCIS s/p partial mastectomy and RT in 2009 ([facility]) Left breast, mastectomy: - Focal atypical lobular hyperplasia - Intraductal papillomas, sclerosing adenosis, columnar cell change/hyperplasia, ??usual ductal hyperplasia, and apocrine cysts - Changes consistent with prior surgical site History of Present Illness: Cecilia Marx has done well s/p surgery. Has drains in place puttin gout about 25-25 per day of serous fluid. Some discomfort. Not using narcotics. No fevers or chills. No redness. Current Outpatient Medications on File Prior to Visit Medication Sig Dispense Refill ??? magnesium citrate 100 mg Tablet Take by mouth nightly. ??? cholecalciferol, Vitamin D3, 2,000 unit Capsule Take 1 capsule by mouth daily. ??? fish oil-omega-3 fatty acids 1,000 mg Capsule Take 1 capsule by mouth daily. ??? acetaminophen (TYLENOL) 500 mg Tablet Take 2 tablets by mouth every 8 hours as needed for Pain.Indications: Pain ??? amitriptyline (ELAVIL) 10 mg Tablet [...] every 6 hours as needed for Pain (FORPAIN UNCONTROLLED BY TYLENOL). 5 tablet 0 ??? aspirin 81 mg EC tablet Take 81 mg by mouth daily. ??? hydrocortisone 2.5 % Cream Mix with ketoconazole and apply to affected areas in the groin twicedaily as needed, then decrease to twice weekly. (Patient not taking: Reported on 03/30/2018) 30 g 3 ??? ketoconazole (NIZORAL) 2 % Cream Mix with hydrocortisone and apply to affected areas in the groin twice daily as needed, then decrease to twice weekly (Patient not taking: Reported on 03/30/2018) 30 g 3 No current facility-administered medications on file prior to visit. Allergies as of 03/30/2018 - Review Complete 03/16/2018 Allergen Reaction Noted ??? Adhesive Rash 02/21/2018 ??? Nitrofurantoin monohyd/m-cryst PE: Cecilia has a well-healing mastectomy incisions on bilateral chest wall. Drains bilatearl with serousfluid. Left drain site with mild erythema. Incisions with surgical glue in place. No erythema or seroma. Skin flaps healthy and pink with good cap refill. Healing well. No lymphedema of bl arms Imp: Cecilia Marx is a 62 y.o. female with history of right breast DCIS s/p PM and RT in 2009 nowwith possible recurrence of DCIS in the right breast s/p bilateral mastectomy and right SLNB. 5cm of DCIS found, negative SLNB. Healing well. We discussed no role for radiation. In discussion with medical oncologist, would not recommend anti-estrogen as well. Plan: - Return in 6 months for CBE with Barbara Brumfield PERINATAL COORDINATOR - drains to be removed today - physical therapy Marla Brice MD Surgical Oncology documented in this encounter Plan of Treatment Not on file documented as of this encounter Visit Diagnoses Diagnosis Ductal carcinoma in situ (DCIS) of right breast documented in this encounter Care Teams Emissions Technician Relationship Specialty Start Date End Date Christine Fuentes PA [address] [place] [address] PCP - General Family Medicine 01/24/17 10/08/19 documented as of this encounter
--- OUTSIDE RECORDS SUMMARY | 2023-12-26 13:17 | XMS_ITS | Encounter Summary ---
[place] [address] Care Team Providers Care Palm And Back Forger Name Role Phone Christine Fuentes Primary Care Provider +1- [phone] Reason for Referral * Diagnostic Test (Routine) - Closed Specialty Diagnoses / Procedures Referred By Contac t Referred To Contact Radiology Diagnoses Malignant neoplasm of right breast in female, estrogen receptor positive, unspecified site of breast Procedures MRI Breast wwo Contrast Marla Pearce MD [facility] [place] [address] [place] [address] Referral ID Status Reason Start Date Expiration Date V isits Requested Visits Authorized [id number] Closed Specialty Service Requested 02/10/2018 04/10/2018 1 1 Reason for Visit * Diagnostic Test (Routine) - Closed Specialty Diagnoses / Procedures Referred By Contperez t Referred To Contact Radiology Diagnoses Malignant neoplasm of right breast in female, estrogen receptor positive, unspecified site of breast Procedures MRI Breast wwo Contrast Marla Pearce MD [facility] [place] [address] [place] [address] Referral ID Status Reason Start Date Expiration Date V isits Requested Visits Authorized [id number] Closed Specialty Service Requested 02/10/2018 04/10/2018 1 1 Encounter Details Date Type Department Care Team (Late st Contact Info) Description 02/16/2018 10:27 AM EST - 02/16/2018 11:59 PM EST Hospital Encounter MRI at [facility] [place] [address] Marla Brice MD [facility] [place] [address] Malignant neoplasm of right breast in female, estrogen receptor positive, unspecified site of breast Discharge Disposition: Home Social History [...] Procedure Name Priority Date/Time Associated Diagnosis Comments MRI BREAST WWO CONTRAST BILAT Routine 02/16/2018 12:10 PM EST Malignant neoplasm of right breast in female, estrogen receptor positive, unspecified site of breast documented in this encounter Results * MRI Breast wwo [...] contrast enhancement curve analysis was performed, using [employer] software. COMPARISON STUDIES: Compared and/or correlated with [...] contrast enhancement curve analysis was performed, using [employer] software. COMPARISON STUDIES: Compared and/or correlated with [...] site of breast documented in this encounter Administered Medications Inactive Administered Medications - up to 3 most recent administrations Medication Order MAR Action Action Date Dose Rate Site gadoterate meglumine (DOTAREM) 0.5 mmol/mL (376.9 mg/mL) injection 0-100 mL 0-100 mL, Intravenous, ONCE PRN, 1 dose, Starting on Mon02/16/18 at 1145, Until Mon02/16/18 at 1147, Per Protocol, Radiology Contrast, Routine Given 02/16/2018 11:47 AM EST 16 mLs documented in this encounter Care Teams Palm And Back Forger Relationship Specialty Start Date End Date Christine Fuentes PA [address] [place] [address] PCP - General Family Medicine 01/24/17 10/08/19 documented as of this encounter
--- OUTSIDE RECORDS SUMMARY | 2023-12-26 13:17 | XMS_ITS | Encounter Summary ---
[place] [address] Care Team Providers Care Pipe Finishing Supervisor Name Role Phone Christine Fuentes Primary Care Provider +1- [phone] Reason for Referral * Diagnostic Test (Routine) - Closed Specialty Diagnoses / Procedures Referred By Contac t Referred To Contact Radiology Diagnoses Ductal carcinoma in situ (DCIS) of right breast Procedures NM [place] Node Injection Breast Marla Reed MD [facility] [place] [address] [place] [address] Referral ID Status Reason Start Date Expiration Date V isits Requested Visits Authorized [id number] Closed Specialty Service Requested 02/23/2018 02/23/2019 1 1 Reason for Visit * Diagnostic Test (Routine) - Closed Specialty Diagnoses / Procedures Referred By Contac t Referred To Contact Radiology Diagnoses Ductal carcinoma in situ (DCIS) of right breast Procedures NM [place] Node Injection Breast Marla Reed MD [facility] [place] [address] [place] [address] Referral ID Status Reason Start Date Expiration Date V isits Requested Visits Authorized [id number] Closed Specialty Service Requested 02/23/2018 02/23/2019 1 1 Encounter Details Date Type Department Care Team (Late st Contact Info) Description 03/15/2018 12:28 PM EST - 03/15/2018 1:10 PM [facility] Hospital [place] [address] Marla Brice MD [facility] [place] [address] Ductal carcinoma in situ (DCIS) of right breast Discharge Disposition: Home Social History Tobacco [...] Dispensed Refills Start Date End Date cholecalciferol, Vitamin D3, 2,000 unit Capsule Take 1 capsule by mouth daily. 03/16/2018 fish oil-omega-3 fatty acids 1,000 mg Capsule Take 1 capsule by mouth daily. 03/16/2018 acetaminophen (TYLENOL) 500 mg TabletIndications:pa in Take 2 tablets by mouth every 8 hours as needed for Pain. Indications: Pain 03/16/2018 amitriptyline (ELAVIL) 10 mg Tablet Take 2 tablets by mouth nightly. 03/16/2018 buPROPion (WELLBUTRIN SR) 100 mg tablet sustained-release 12 hr Take 1 tablet by mouth daily. 03/16/2018 escitalopram (LEXAPRO) 10 mg Tablet Take 1 tablet by mouth daily. 03/16/2018 levothyroxine (SYNTHROID) 88 mcg Tablet Take 1 tablet by mouth daily. 03/16/2018 multivitamin (THERAGRAN) Tablet Take 1 tablet by mouth daily. 03/16/2018 oxyCODONE (ROXICODONE) 5 mg Tablet Take 1 tablet by mouth every 6 hours as needed for Pain (FOR PAIN UNCONTROLLED BY TYLENOL). 5 tablet 03/16/2018 hydrocortisone 2.5 % Cream Mix with ketoconazole [...] tablet Take 81 mg by mouth daily. magnesium citrate 100 mg Tablet Take 2 tablets by mouth daily. 03/16/2018 03/30/2018 acetaminophen (TYLENOL) 500 mg TabletIndications:pa in Take 1,000 mg by mouth every 6 hours as needed for Pain. Indications: Pain 03/16/2018 buPROPion (WELLBUTRIN SR OR ZYBAN) 150 mg [...] (ELAVIL) 10 mg tablet 30mg, PO, QHS 05/04/2010 03/16/2018 documented as of this encounter Plan of Treatment Not on file documented as of this encounter Procedures Procedure Name Priority Date/Time Associated Diagnosis Comments NM SENTINEL NODE INJECTION BREAST WITHOUT IMAGING Routine 03/15/2018 1:11 PM EST Ductal carcinoma in situ (DCIS) of right breast documented in this encounter Results * NM [place] Node Injection Breast wo Imaging (03/15/2018 1:11 PM EST) Anatomical Region Laterality Modality Nuclear Medicine Impressions 03/15/2018 1:50 PM EST [place] node injections performed without complication. Thank you for letting us participate in the care of this patient. For questions regarding this report, please contact the number below. ? Narrative 03/15/2018 1:50 PM EST EXAMINATION: NM SENTINEL NODE INJECTION BREAST WO IMAGING CLINICAL HISTORY: PLEASE INJECT THE RIGHT BREAST FOR LYMPHATIC MAPPING TECHNIQUE: Technetium-99m filtered sulfur colloid was administered in divided doses totaling 1.4 mCi in the right breast. COMPARISON: None FINDINGS: No imaging was performed. The patient left the department in good condition. Procedure Note Aleksandar Ibanez MD - 03/15/2018 EXAMINATION: NM SENTINEL NODE INJECTION BREAST WO IMAGING CLINICAL HISTORY: PLEASE INJECT THE RIGHT BREAST FOR LYMPHATIC MAPPING TECHNIQUE: Technetium-99m filtered sulfur colloid was administered individed doses totaling 1.4 mCi in the right breast. COMPARISON: None FINDINGS: No imaging was performed. The patient left the department ingood condition. IMPRESSION [place] node injections performed without complication. Thank you for letting us participate in the care of this patient. Forquestions regarding this report, please contact the number below. MD OCTAVIA Ryder NM ORDERABLE S documented in this encounter Visit Diagnoses Diagnosis Ductal carcinoma in situ (DCIS) of right breast documented in this encounter Administered Medications Inactive Administered Medications - up to 3 most recent administrations Medication Order MAR Action Action Date Dose Rate Site technetium (Tc-99m) sulfur colloid injection 1.4 mCi 1.4 mCi, Intravenous, ONCE PRN, 1 dose, Starting on Arpita 03/15/18 at 1305, Until Arpita 03/15/18 at 1305, Per Protocol, RT Breast, Routine Given 03/15/2018 1:05 PM EST 1.4 mCi documented in this encounter Care Teams Pipe Finishing Supervisor Relationship Specialty Start Date End Date Christine Fuentes PA [address] [place] [address] PCP - General Family Medicine 01/24/17 10/08/19 documented as of this encounter
--- OUTSIDE RECORDS SUMMARY | 2023-12-26 13:17 | XMS_ITS | Encounter Summary ---
Author Organization [facility] [place] [address] Care Team Providers Care Kiln Door Builder Name Role Phone Christine Fuentes Primary Care Provider +1- [phone] Reason for Visit * Auth/Cert Specialty Diagnoses / Procedures Referred By Cherie abdul Referred To Contact Diagnoses breast cancer Procedures PRO MASTECTOMY, SIMPLE, COMPLETE PRO BX/REMV, LYMPH NODE, DEEP AXILL PRO INTRAOP SENTINEL LYMPH ID W/DYE INJECTION MASTECTOMY, SIMPLE, COMPLETE-CARITO (WRVU 15.85) BIOPSY OR EXCISION OF LYMPH NODE(S), OPEN, DEEP AXILLARY NODE(S) (WRVU 6.43) INTRAOPERATIVE ID (MAPPING) SENTINEL LYMPH NODE,INCLUDES INJECTION (WRVU 2.5) Referral ID Status Reason Start Date Expiration Date Visits Re quested Visits Authorized [id number] 1 1 Encounter Details Date Type Department Care Team (Late st Contact Info) Description 03/15/2018 6:13 PM EST Anesthesia Event [place] [address] [facility] [place] [address] [facility] [place] [address] Anesthesia Record Procedure Summary Procedure Name Responsible Anesthesiologist Anesthesia Start Time Anesthesia Stop Time MASTECTOMY, SIMPLE, COMPLETE-CARITO (WRVU 15) (Bilateral: Breast) Sites, Zhou Lewis MD 03/15/18 1813 03/15/182155 Events Date Time Event Comment 03/15/2018 1501 1813 Start 1818 AN Verify 1818 An Start Data 1822 An Induction 1824 An Intubation 1830 Quick Note Bilateral pecto ralis blocks performed per block team 1845 Anesthesia Ready 1907 Procedure Start 214 Extubation/LMA Out 214 an stop data 2149 an stop data 2152 Recovery or ICU Handoff Rivka ent care was transferred to the destination unit staff after review of the patient's medical history, current anesthetic/surgical status and plan, according to the Provider Handoff Checklist. 2155 Stop Meds Name Total Propofol 150 mg Propofol INF [...] lactated Ringers infusion 1,000 mL 1,600 mL * Agents Name O2 Air N2O Sevoflurane (et) * Blood No blood administrations on file. Lines, Drains, and Airways Type Details Placement Removal Drain/Device Site 03/15/18; 2048; Left ; breast; collapsible closed device (15 fr. drain); Dr. Brice 03/15/182048 by Lilliam Gill RN Drain/Device Site 03/15/18; 2053; Righ t; breast; collapsible closed device (15 fr. drain); Dr. Brice 03/15/182053 by Lilliam Gill RN Incision 03/30/17; 1304; [address]ah [address]; 10/18/21 (LDA cleanup utility RA#[id number]); 1715 (LDA cleanup utility RA#[id number]) 03/30/17 1304 by Francesca Mead RN 10/18/21 1715 by Glen Muro Supraglottic Mask Ventilation: Ea sy (1); LMA Type: iGel; LMA Size: 3; Inserted by: Yeny BENNETT; Removal Date: 03/15/18; Removal Time: 214203/15/18 1829 by Francisca Olmos, MECHANICAL DESIGN TECHNICIAN 03/15/18 2143 by Sanjuana Loja CRNA Incision 03/15/18; 184; [address]ah st; 10/18/21 (LDA cleanup utility RA#[id number]); 1715 (LDA cleanup utility RA#[id number]) 03/15/18 1841 by Lilliam Gill RN 10/18/21 171 by Glen Muro (RETIRED) Peripheral IV Line - Single Lumen 03/15/18; 185; metacarpal vein (top of hand), left; [id number] catheter system; 20 gauge; 03/16/18; 1121 03/15/18 185 by Francisca Olmos, MECHANICAL DESIGN TECHNICIAN 03/16/18 112 by Teresa Johnson RN documented in this encounter Social History Tobacco [...] documented as of this encounter OR Notes * Anesthesia Postprocedure Evaluation - Zhou De Jesus MD - 03/15/2018 11:23 PM EST [facility] [place] Department of Anesthesiology Post-procedure Note Patient: Cecilia Marx Procedure Summary Date: 03/15/18 Room / Location: [address] MAIN OR Anesthesia Start: 1812 Anesthesia Stop: 2155 Procedures: MASTECTOMY, SIMPLE, COMPLETE-CARITO (WRVU 15.85) (Bilateral Breast) BIOPSY OR EXCISION OF LYMPH NODE(S), OPEN, DEEP AXILLARY NODE(S) (WRVU 6.43) (Right Axilla) INTRAOPERATIVE ID (MAPPING) SENTINEL LYMPH NODE,INCLUDES INJECTION (WRVU 2.5) (Right ) Diagnosis: (breast cancer) Surgeon: Marla Brice MD Responsible Provider: Zhuo De Jesus MD Anesthesia Type: general ASA Status: 2 All Anesthesia Providers: Anesthesiologist: David Weston MD; Zhou De Jesus MD MECHANICAL DESIGN TECHNICIAN: Sanjuana Loja CRNA Student Nurse Agricultural Equipment Mechanic: Francisca Olmos Vitals Value Taken Time BP 129/87 03/15/2018 11:15 PM Temp 36.8 ??C (98.2 ??F) 03/15/2018 11:15 PM Pulse 95 03/15/2018 11:15 PM Resp 16 03/15/2018 11:15 PM SpO2 97 % 03/15/2018 11:17 PM Pain Level 5 03/15/2018 10:52 PM Vitals shown include unvalidated device data. Patient Location: PACU/[facility] Level of Consciousness: Awake and Alert Pain [...] pain. There are no serious complications evident. * Anesthesia Procedure Notes - Spike Miranda - [...] and mask, cap, sterile gloves, hand hygeine [id number] 21 10 cm Ultrasound Guided: Live and [...] Single-shot BUpivacaine 0.25%, 40 mL no complications Resident/MECHANICAL DESIGN TECHNICIAN:: Spike Miranda DO Attending Physician:: Liza, Zhou Lewis MD 20cc 0.25% infiltrated each side. 10cc for PEC 1 block and 10cc for PEC 2 block. * Anesthesia Preprocedure Evaluation - David Weston MD [...] Stereotactic Biopsy Right 01/30/2018 Babs Duvall MD [facility] RAD MAMMOGRAPHY ??? PRO EXCISE BREAST LES W XRAY MARKER Left 03/30/2017 EXCISION LESION, BREAST W/ PREOP.MARKER (NEEDLE LOC.) (WRVU 6.69) performed by Marla Brice MD at [facility] Social History Tobacco Use ??? Smoking [...] b/l simple mastectomy and right sentinel lymph node dissection. PMH: former smoker (quit 2011), hypothyroidism, migraines No cardiac or pulmonary problems. No recent URI. No GERD (asymptomatic in preop). No problems with anesthesia in the past. Tolerated MAC for L breast lesion excision in 03/2017. Meds: reviewed, includes amitriptyline, lexapro, ASA 81 (has held for ~3 weeks, patient was startedon it by PCP for migraines) NPO status [...] risks discussed with patient. Plan discussed with MECHANICAL DESIGN TECHNICIAN. PAT Staff Note documented in this encounter Plan of Treatment Not on file documented as of this encounter Procedures Procedure Name Priority Date/Time Associated Diagnosis Comments ANESTHESIA BLOCK Routine 03/15/2018 7:27 PM EST documented in this encounter Results * Anesthesia Block (03/15/2018 7:27 PM EST) Narrative Sites, Zhou Lewis MD - 03/15/2018 7:27 PM EST Spike Miranda, DO ? 03/15/2018 ??7:29 PM Anesthesia Block Performed by: Spike Miranda DO Authorized by: Zhou De Jesus MD Start Time: ??03/15/2018 6:30 PM End Time: ??03/15/2018 6:45 PM Patient Location: ??Main OR Indication: ??Post-op Pain Control Post-op pain management at the request of surgeon. ?? Block Type: ??PEC block Laterality: ??Bilateral Position: ??Supine Prep: ??Chlorhexidine, patient draped, gown and mask, cap, sterile gloves, hand hygeine [id number] 21 10 cm Ultrasound Guided: ??Live and [...] BUpivacaine 0.25%, 40 mL no complications ?? Resident/MECHANICAL DESIGN TECHNICIAN:: ??Spike Miranda, Attending Physician:: ??Zhou De Jesus MD 20cc 0.25% infiltrated each side. 10cc for PEC 1 block and 10cc for PEC 2 block. Zhou De Jesus MD TOWER CRANE OPERATOR [facility] documented in this encounter Visit Diagnoses Not on filedocumented in this encounter Administered Medications Inactive Administered Medications - up to 3 most recent administrations Medication Order MAR Action Action Date Dose Rate Site BUpivacaine (MARACAINE) 0.25% bolus injection (Anesthesia) Epidural, Starting on Arpita 03/15/18 at 1927, Until Arpita 03/15/18 at 192, Anesthesia Intra-op, Routine Given 03/15/2018 7:27 PM EST 40 mLs ceFAZolin (ANCEF) 2g in dextrose 5% 100 mL 2 g, Intravenous, EVERY 3 HOURS, 1 dose, First dose on Arpita 03/15/18 at 1500, Administer over 30 Minutes, Intra-Operative (Intra-Procedure), Indication for (Active or Suspected): Prophylaxis Given 03/15/2018 9:37 PM EST 2 g Given 03/15/2018 6:37 PM EST 2 g dexamethasone (DECADRON) injection Intravenous, PRN, Starting on Arpita 03/15/18 at 1824, Until Arpita 03/15/18 at 2200, Anesthesia Intra-op, Routine Given 03/15/2018 6:24 PM EST 8 mg dexmedetomidine (PRECEDEX) injection PRN, Starting on Arpita 03/15/18 at 1948, Until Arpita 03/15/18 at 2200, Anesthesia Intra-op, Routine Given 03/15/2018 7:48 PM EST 4 mcg Given 03/15/2018 7:09 PM EST 4 mcg Given 03/15/2018 6:33 PM EST 4 mcg ePHEDrine 5 mg/mL multi-dose injection Intravenous, PRN, Starting on Arpita 03/15/18 at 1900, Until Arpita 03/15/18 at 2200, Anesthesia Intra-op, Routine Given 03/15/2018 7:29 PM EST 10 mg Given 03/15/2018 7:18 PM EST 5 mg Given 03/15/2018 7:00 PM EST 5 mg fentaNYL 50 mcg/mL multi-dose injection Intravenous, PRN, Starting on Arpita 03/15/18 at 1829, Until Arpita 03/15/18 at 2200, Anesthesia Intra-op, Routine Given 03/15/2018 7:54 PM EST 25 mcg Given 03/15/2018 7:41 PM EST 25 mcg Given 03/15/2018 7:08 PM EST 25 mcg lactated Ringers infusion 1,000 mL 1,000 mL, at 100 mL/hr, Intravenous, CONTINUOUS, Starting on Arpita 03/15/18 at 1500, Until Arpita 03/15/18 at 2220, Day of Surgery (Day of Procedure) New Bag 03/15/2018 10:08 PM EST 1,000 mLs 100 mL/hr New Bag 03/15/2018 7:30 PM EST New Bag 03/15/2018 6:13 PM EST lidocaine (PF) (XYLOCAINE) 100 mg/5 mL (2 %) injection Intravenous, PRN, Starting on Arpita 03/15/18 at 1822, Until Arpita 03/15/18 at 2200, Anesthesia Intra-op, Routine Given 03/15/2018 6:22 PM EST 80 mg midazolam (PF) (VERSED) multi-dose injection Intravenous, PRN, Starting on Arpita 03/15/18 at 1813, Until Arpita 03/15/18 at 2200, Anesthesia Intra-op, Routine Given 03/15/2018 6:13 PM EST 2 mg ondansetron (ZOFRAN) injection Intravenous, PRN, Starting on Arpita 03/15/18 at 2111, Until Arpita 03/15/18 at 2200, Anesthesia Intra-op, Routine Given 03/15/2018 9:11 PM EST 8 mg PHENYLephrine (ALAYNA-SYNEPHRINE) 20 mg in sodium chloride 250 mL (standard ADULT & Pedi greater than 20kg) infusion CONTINUOUS PRN, Starting on Arpita 03/15/18 at 1918, Until Arpita 03/15/18 at 2200, Anesthesia Intra-op, Routine Rate/Dose Change 03/15/2018 9:22 PM EST 20 mcg/min 15 mL/hr Rate/Dose Change 03/15/2018 8:49 PM EST 40 mcg/min 30 mL/h r Rate/Dose Change 03/15/2018 7:58 PM EST 30 mcg/min 22.5 mL /hr PHENYLephrine in NS (PF) (ALAYNA-SYNEPHRINE) 0.8 mg/10 mL (80 mcg/mL) multi-dose injection Syrg Intravenous, PRN, Starting on Arpita 03/15/18 at 1845, Until Arpita 03/15/18 at 2200, Anesthesia Intra-op, Routine Given 03/15/2018 8:00 PM EST 40 mcg Given 03/15/2018 7:18 PM EST 160 mcg Given 03/15/2018 7:00 PM EST 160 mcg propofol (DIPRIVAN) 10 mg/mL bolus injection (Anesthesia) Intravenous, PRN, Starting on Arpita 03/15/18 at 1823, Until Arpita 03/15/18 at 2200, Anesthesia Intra-op Given 03/15/2018 6:23 PM EST 150 mg propofol (DIPRIVAN) infusion Intravenous, CONTINUOUS PRN, Starting on Arpita 03/15/18 at 1824, Until Arpita 03/15/18 at 2200, Anesthesia Intra-op, Routine Rate/Dose Change 03/15/2018 6:45 PM EST 50 mcg/kg/min 22.7 mL/hr New Bag 03/15/2018 6:24 PM EST 100 mcg/kg/min 45.5 mL/h r scopolamine (TRANSDERM-SCOP) 1 mg over 3 days patch 1 patch 1 patch, Transdermal, EVERY 72 HOURS, First dose on Arpita 03/15/18 at 2000, Until Discontinued, Day of Surgery (Day of Procedure), Routine Patch Applied 03/15/2018 6:15 PM EST 1 patch Left Ear Given 03/15/2018 6:13 PM EST 1 patch documented in this encounter Care Teams Kiln Door Builder Relationship Specialty Start Date End Date Christine Fuentes PA [address] [place] [address] PCP - General Family Medicine 01/24/17 10/08/19 documented as of this encounter
--- OUTSIDE RECORDS SUMMARY | 2023-12-26 13:17 | XMS_ITS | Encounter Summary ---
[place] [address] Care Team Providers Care Healthcare Corporate Account Director Name Role Phone Christine Fuentes Primary Care Provider +1- [phone] Reason for Visit * Physical Therapy (Routine) - Closed Specialty Diagnoses / Procedures Referred By Cherie abdul Referred To Contact Physical Therapy Diagnoses Breast cancer Marla Brice MD [facility] [place] [address] [facility] [place] [address] Referral ID Status Reason Start Date Expiration Date Visits Re quested Visits Authorized [id number] Closed 03/13/2018 03/13/2019 1 1 Encounter Details Date Type Department Care Team (Late st Contact Info) Description 03/30/2018 3:15 PM EST Office Visit [place] [address] Debra Madrigal, PT [facility] PHYSICAL MEDICINE & [place] [address] Decreased ROM of right shoulder; Decreased ROM of left shoulder; Pain of right upper arm; Bilateral arm weakness Social History Tobacco Use Types Packs/Day Years [...] as of this encounter Miscellaneous Notes * Initial Evaluation - Debra Madrigal, PT - 03/30/2018 3:15 PM EST Images from the original note were not included. PHYSICAL THERAPY EVALUATION Date of Exam/First treatment: 03/30/18 Date of Onset : OR 03/15/18 Referring Provider: Marla Brice V Primary Insurance: Payor: [employer] [place] / Plan: [place] EX[place]ANGE / Product Type: *No Product type* / Diagnosis and pertinent co-morbidities: total treatment time: 45 minutes total timed code treatment minutes: 45 min eval CURRENT HISTORY: Cecilia Marx is a 63 y.o. female With h/o right breast cancer DCIS and partial Mastectomy and RT in 2009. now with intraductal papilloma of the left breast s/p right mastectomy with SLNB 0/4 LNP and prophylactic left mastectomy 03/15/18. Drains out today S: feels tight pulling sensation R anterior medial arm Adjuvant Treatment pending: none Social: , pt. 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 Pt with pain anddecreased ROM shoulders limiting function. Pt would benefit from skilled PT to improve mobility andstrength.Pt at low risk for lymphedema. Pt would [...] and consistent in home Ex program Therapy [facility] Goals: 6 weeks 1. Full functional use [...] limbs documented in this encounter Care Teams Healthcare Corporate Account Director Relationship Specialty Start Date End Date Christine Fuentes PA [address] [place] [address] PCP - General Family Medicine 01/24/17 10/08/19 documented as of this encounter
--- OUTSIDE RECORDS SUMMARY | 2023-12-26 13:17 | XMS_ITS | Encounter Summary ---
[place] [address] Care Team Providers Care Manager Of Compliance Name Role Phone Christine Fuentes Primary Care Provider +1- [phone] Encounter Details Date Type Department Care Team (Late st Contact Info) Description 02/22/2018 Telephone [place] [address] Elaine Song Social History Tobacco Use Types Packs/Day Years Used Date Smoking Tobacco: Former Cigarettes Q uit: 10/19/2011 Smokeless Tobacco: Never Sex and Gender Information Value Date Recorded Sex Assigned at Not on file Gender Identity Not on file Sexual Orientation Not on file documented as of this encounter Miscellaneous Notes * Telephone Encounter - Elaine Song - 02/22/2018 2:47 PM EST Cecilia called to inform Dr Brice she has decided not to have breast reconstruction and has cancelled her Plastic Surgery appointment. She would like to be scheduled for surgery with Dr Brice as soon as possible. Will inform Dr Brice. documented in this encounter Plan of Treatment Not on file documented as of this encounter Visit Diagnoses Not on filedocumented in this encounter Care Teams Manager Of Compliance Relationship Specialty Start Date End Date Christine Fuentes PA [address] [place], [place] [address] PCP - General Family Medicine 01/24/17 10/08/19 documented as of this encounter
--- OUTSIDE RECORDS SUMMARY | 2023-12-26 13:17 | XMS_ITS | Encounter Summary ---
Author Organization [facility] [place] [address] Care Team Providers Care Offset Platemaker Name Role Phone Christine Fuentes Primary Care Provider [phone]- [phone] Encounter Details Date Type Department Care Team (Late st Contact Info) Description 03/01/2018 Telephone Hematology [place] [address] [facility] [address] HEMATOLOGY/[place] [address] Social History Tobacco Use Types Packs/Day Years Used Date Smoking Tobacco: Former Cigarettes Q uit: 10/19/2011 Smokeless Tobacco: Never Sex and Gender Information Value Date Recorded Sex Assigned at Not on file Gender Identity Not on file Sexual Orientation Not on file documented as of this encounter Miscellaneous Notes * Telephone Encounter - Domenica Lama [facility] - 03/01/2018 12:46 PM EST This test result was discussed with the patient by phone. A copy of a letter sent to the patient containing these results is provided below. Please be advised that [place] law requires that allhealth care workers respect the confidentiality of this information and not pass it along to other health care providers, insurance companies, or individuals without the written permission of the patient. The [facility] welcomes any questions about these matters. Our phone number is: [phone]. On February 21, 2018, Cecilia underwent genetic testing for a hereditary predisposition to common hereditary cancers, including breast, gynecologic and gastrointestinal. Following are the results of thistest. Result: [facility] Common Hereditary Cancers Panel showed no mutation was detected. This means that Cecilia does not carry a mutation in the genes detectable by this test. The following genes were evaluated forsequence changes and exonic deletions/duplications: APC, MARTINA, AXIN2, BARD1, BMPR1A, BRCA1, BRCA2, BRIP1, CDH1, CDK4, CDKN2A (p14ARF), CDKN2A ([id number]), CHEK2, CTNNA1, DICER1, EPCAM (EPCAM: Deletion/duplication testing only ([id number]), GREM1 (GREM1: Promoter region deletion/duplication testing only.), KIT, MEN1, MLH1, MSH2, MSH3, MSH6, MUTYH, NBN, NF1, PALB2, PDGFRA, PMS2, POLD1, POLE, PTEN, RAD50, RAD51C, RAD51D, SDHB, SDHC, SDHD, SMAD4, SMARCA4, STK11, TP53, TSC1, TSC2, VHL. The following g saira were evaluated for sequence changes only: HOXB13 (c.251G>A, p.Uup80Aat variant only), NTHL1(NTHL1: Deletion/duplication analysis is not offered for this gene ([id number]), and SDHA. A variant of uncertain significance in the STK11 gene, specifically c.992G>A (p.Zss157Xqj), was detected. We are enclosing a printed copy of Cecilia's test results. Interpretation: It is unclear at this time whether the STK11 variant of uncertain significance identified in Cecilia is a cancer associated mutation or is a benign change in the gene with no increased cancer risks. [facility] is continually collecting and analyzing their data, [...] this panel may be missed by current technology. Additional genetic testing for Cecilia or other family members is not recommended at this time.Specifically, family members should NOT be tested for [...] screening studies in addition to an annual CONTINUOUS IMPROVEMENT CONSULTANT exam at this time. Other cancer screening ?? Periodic colonoscopy screening as recommended by Cecilia's chief nurse. ?? Periodic skin exams documented in this encounter Plan of Treatment Not on file documented as of this encounter Visit Diagnoses Not on filedocumented in this encounter Care Teams Offset Platemaker Relationship Specialty Start Date End Date Christine Fuentes PA [address] [place] [address] PCP - General Family Medicine 01/24/17 10/08/19 documented as of this encounter
--- OUTSIDE RECORDS SUMMARY | 2023-12-26 13:17 | XMS_ITS | Encounter Summary ---
Author Organization [facility] Address [facility] [place] [address] Care Team Providers Care Educational Aide Name Role Phone Christine Fuentes Primary Care Provider [phone]- [phone] Reason for Referral * Physical Therapy (Routine) - Specialty Diagnoses / Procedures Referred By Cherie abdul Referred To Contact Physical Therapy Diagnoses Decreased range of motion of shoulder, unspecified laterality Marla Brice MD [facility] [address] Referral ID Status Reason Start Date Expiration Date V isits Requested Visits Authorized [id number] Evaluate and Treat 04/09/2018 10/06/2018 1 1 Encounter Details Date Type Department Care Team (Late st Contact Info) Description 04/09/2018 Orders [place] [address] Marla Brice MD [facility] [place] [address] Decreased range of motion of shoulder, unspecified laterality (Primary Dx) Social History Tobacco Use Types Packs/Day Years [...] Associated Diagnoses Orde r Schedule Referral to Physical Therapy Outpatient Referral Routine Decreased range of motion of shoulder, unspecified laterality Ordered: 04/09/2018 documented as of this encounter Visit Diagnoses Diagnosis Decreased range of motion of shoulder, unspecified laterality- Primary documented in this encounter Care Teams Educational Aide Relationship Specialty Start Date End Date Christine Fuentes PA [address] [place] [address] PCP - General Family Medicine 01/24/17 10/08/19 documented as of this encounter
--- OUTSIDE RECORDS SUMMARY | 2023-12-26 13:17 | XMS_ITS | Encounter Summary ---
Author Organization [facility] Address [facility] [place] [address] Care Team Providers Care Co Founder And Ceo Name Role Phone Christine Fuentes Primary Care Provider [phone] Reason for Visit * Auth/Cert Specialty Diagnoses [...] Expiration Date Visits Re quested Visits Authorized [id number] 1 1 Encounter Details Date Type Department Care Team (Late st Contact Info) Description 03/15/2018 1:11 PM EST - 03/16/2018 11:45 AM [facility] Encounter [place] [address] Marla Zepeda MD [facility] [place] [address] Malignant neoplasm of female breast, unspecified estrogen receptor status, unspecified laterality, unspecified site of breast Discharge Disposition: Home with VNA Social History Tobacco Use Types Packs/Day Years [...] EST documented in this encounter Discharge Summaries * Aleah Vigil, CAN FILLER - 03/16/2018 10:42 AM EST General Surgery [...] female referred back to me by Christine Fuetnes forevaluation of right breast DCIS. ?? 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 She was followed by surgeon for 5 years [...] She does have a history of previous DCIS contralateral breast w surgery and RT. Positive family history of breast cancer in her mother (age 50s) and great aunt. ?? Overall she feels quite well. Weight is stable and appetite is good. Denies fatigue. No recent migraines. No chest pain or SOB. No abd pain or blood in the stool. No new bony pain or tenderness.stopped drinking wine around Elisabet time due to depression. ?? Reports a left breast infection about 2-3 weeks after biopsy. Had redness, pain and inverted nipple. She was started on augmentin for 21 days and symptoms resolved. ?? Here today with her . Operations/Major Procedures: Operations: 03/15/2018 Surgeon(s) and Role: * Marla Zepeda MD - Primary * Sera Weller MD - Resident-Drop Forger Helper * Vu Angela MD - Resident-Surgeon Tonny [...] well and without complication. She was admitted post-operativelyfor clinical monitoring and further management. The patient's hospital course was uncomplicated andshe was deemed stable for discharge on post-operative day one. Important Studies and Lab Data: See below. Pathology: Final Surgical Pathology pending. Microbiology: None. Labs: No results found for: WBC, HGB, HCT, PLATELET No results found for: NA, K, CL, CO2, BUN, CREATININE, GLUCOSE Pending Lab Data at Discharge: Final Surgical Pathology pending. Studies: NM Varney Node Injection Breast wo Imaging (03/16): IMPRESSION Varney node injections performed without complication. Discharge Exam: [...] KALYN wrap dressing in place - mild softfullness noted to right axilla; bilateral JEFFRY drains with thin, sanguinous output. Ext: no edema, 2+ peripheral pulses Discharge Plans: Discharge to: Home VNA: Yes Name of facility: [facility] Contact information: PHONE: [phone] Discharge Conditions/Prognosis: Stable Discharge Medications: The following medications have been prescribed for you. If you notice any adverse reactions to your medications, please contact your primary care physician immediately or go tothe nearest Emergency Department. Your Medications New Medications [...] the groin twice daily as needed, then decreaseto twice weekly. Quantity: 30 g Refills: 3 [...] PM Avi Talbot MD Leb [facility] 03/30/2018 3:15 PM Magdalena Madrigal, PT PT Rehab [facility] Outpatient Services/Studies: Referral to Home Health - at DISCHARGE Order Comments: DOCUMENTATION FOR VNA SERVICES (INCLUDING THOSE PATIENTS WITH MEDICARE COVERAGE REQUIRING HOME VNA SERVICES AND/OR HOSPICE SERVICES) PATIENT'S LOCATION: Cecilia Marx [address] [place] [id number] (home) [phone] (cell) Hvac Manager's Name: Self In discussion with the attending physician, it is certified that this patient is under their care and that they, or a Nurse Practitioner,Clinical Nurse specialist or Physician Day Trader who is working directly with them, had a face to face encounter that meets the physician face to face encounter requirements with this patient on 03/16 The encounter with the patient was in whole, or in part, for the following medical condition, whichis the primary reason for home health care services: 03/16 In discussion with the provider, it is certified that, based on their findings, the following services are medically necessary for home health services. To provide the following care/treatments with the clinical findings supporting the need for services as follows: HOME CARE ORDERS: RN ORDERS:Assess wound or incision, vital signs, cardiopulmonary status, nutrition, hydration, elimination, meds effectiveness and management; reinforce education re health issues. JEFFRY Drain care x 2. PT ORDERS: Continue rehab for endurance, gait stability and strength with mobility and transfers. Home safety evaluation only. Home exercise program if appropriate. HOME HEALTH CARE AGENCY: [facility]. PHONE: [phone] FAX: [phone] Start of care: 24-48 hrs after discharge Please note that any additional orders needs or changes will need to be obtained from this patient's PCP: NNAMDI Nicole [address] / [place] [address] All A agencies which cover the area of patient's residence have been reviewed, either verbally stacia writing, and patient/family have chosen the home health care agency noted Question Response Notes Agency name and contact information [facility] Patient location post discharge Home [...] days, then you may remove dressing/surgibra and leaveincision open to air. You have surgical glue [...] drain removal when output less than 30cc perday for 2 consecutive days. [phone] You may shower with the drains in [...] doses within 4-6 hours before or after thesemedications (they contain Tylenol as well) Opioid medications typically cause constipation, so we suggest using a stool softener in addition (metamucil, colace...etc.) You may apply ice or cold packs to the incision for 15-20 minutes several times a day for the first2-3 days following surgery to help with discomfort Follow-up Appointment: Will be scheduled with Dr. Zepeda in 2-3 weeks Please call [phone] to confirm date and time of your appointment if you do not hear from us inthe week. Call Doctor for: Worsening redness or drainage from your incision lasting longer than 5 days following surgery Any foul-smelling drainage from the incision Fevers greater than 101 degrees F Persistent nausea or vomiting (this may be related to opioid pain medications) Phone number for questions: [phone] before 5 PM weekdays [phone] after 5 PM and on weekends/holidays Future Appointments Date Time Provider Department Center 03/30/2018 1:30 PM Marla Zepeda MD Leb Surg [facility] 03/30/2018 2:00 PM Avi Talbot MD Leb Hem Onc [facility] 03/30/2018 3:15 PM Magdalena Madrigal, PT PT Rehab [facility] General Instructions None Acute Opioid Prescribing: [...] to take the smallest dose possible to control their pain and as their pain improves to take smaller doses and increase the time between doses.The patient's risk for opioid misuse, abuse or diversion have been considered. In addition to this medication, non-opioid therapies and non-pharmacologic modalities such as heating pad, ice, and activity modification have been recommended as appropriate for adjunct treatment oftheir pain. I have discussed the risks and [...] CC: NNAMDI Nicole Signed: Aleah Vigil APRN [facility] Surgical Oncology Service Team Pager #[phone] 03/16/2018 11:44 AM documented in this encounter Discharge Instructions * Patient Instructions* Aleah Vigil APRN - 03/16/2018 9:03 AM EST [...] days, then you may remove dressing/surgibra and leaveincision open to air. You have surgical glue [...] drain removal when output less than 30cc perday for 2 consecutive days. [phone] You may shower with the drains in [...] doses within 4-6 hours before or after thesemedications (they contain Tylenol as well) Opioid medications typically cause constipation, so we suggest using a stool softener in addition (metamucil, colace...etc.) You may apply ice or cold packs to the incision for 15-20 minutes several times a day for the first2-3 days following surgery to help with discomfort Follow-up Appointment: Will be scheduled with Dr. Zepeda in 2-3 weeks Please call [phone] to confirm date and time of your appointment if you do not hear from us inthe week. Call Doctor for: Worsening redness or drainage from your incision lasting longer than 5 days following surgery Any foul-smelling drainage from the incision Fevers greater than 101 degrees F Persistent nausea or vomiting (this may be related to opioid pain medications) Phone number for questions: [phone] before 5 PM weekdays [phone] after 5 PM and on weekends/holidays Future Appointments Date Time Provider Department Center 03/30/2018 1:30 PM Marla Zepeda MD Leb Surg [facility] 03/30/2018 2:00 PM Avi Talbot MD Leb Hem [facility]c [facility] 03/30/2018 3:15 PM Magdalena Madrigal, PT PT Rehab [facility] * Attachments The following attachments cannot be sent through Care Everywhere. * Surgical Drain Care (Bermudian) documented in this encounter Medications at Time [...] 2 tablets by mouth daily. 03/16/2018 03/30/2018 documented as of this encounter Progress Notes * Yolette Lares RN - 03/16/2018 9:46 AM EST The patient/factory representative has been provided a list of Home Health Agencies which serve their preferred geographic area. A letter describing our affiliations was reviewed with them and they were educated about their right to choose where referrals are placed. Patient requests referral to [facility]. PHONE: [phone] FAX: [phone]. Expected date of discharge: 03/16/18. Referral routed to the Service Station Attendant for matching with agency/vendor and to provide any required information. * Teresa Johnson RN - 03/16/2018 7:55 AM EST 0700 assumed care of patient Assisted with breakfast tray Self sufficient No c/o pain Resting on and off For d/c today Seen by Dr Zepeda 1000 J/P drains emptied and pnt demonstrated ability to empty and record drainage Seen by care mgt to set up VNA services Reviewed AVS 1030 Called Aleah COTO for d/c order Will wait until RX Given 1100 instructions by Aleah reviewed IV removed Wheeled to exit with * Brad Ruano MD - 03/16/2018 12:45 AM EST Post-Operative [...] 03/16/2018 0000 Gross per 24 hour Intake 2010 ml Output 445 ml Net 1566 ml [...] diet, ambulating, and voiding adequate UOP. Hemodynamically stable.Continue post-op management plan per primary team. Brad Ruano MD 03/16/18 General Surgery Resident, PGY-1 * Mackenzie Strickland RN - 03/15/2018 10:14 PM [...] command. Vss. ivf infusing via left arm piv. No BP right arm. bilat venodynes on. Skin [...] supportive. He will be staying in the [facility] overnight and will keep all pt belongings until the am. Pt having pain in breast area - po meds given. Slight nausea - iv zofran preventative. 5 - left for hotel 2315 - pt [...] transferred. documented in this encounter H&P Notes * Vu Angela MD - 03/15/2018 5:38 PM EST General Surgery Interval H&P HPI: Cecilia Marx is a 62 y.o. with a history of DCIS of right breast s/p right partial mastectomy and RT in 2009. She now presents with complex sclerosing lesion and intraductal papilloma of the left breast. She is here for right mastectomy with SLNB and prophylactic left mastectomy. She denies any changes in her health since being seen in [...] MD documented in this encounter Nursing Notes * Lilliam Gill RN - 03/15/2018 7:41 PM EST Contacted Andrey Cordova at the research lab at 1925 and was instructed to leave them at the charge desk in the main OR. #1 right breast tissue #2 left breast tissue. The specimen for research were taken to the desk and verified by Noemi. Pathology: #1 right breast taken out of the room to the front tender by Rachana Leary RN at 2009, verified with Noemi and lab informed at 2012. #2 right axillary node #3 left breast tissue out at 2057 and sent to the front tender at 2113 on 03/15/18, verified by Luis Womack and noemi that there were two specimens in the bag , right sentinal node and left breast tissue. Contact the patient to update him on the procedure at 2025 on 03/15/18. documented in this encounter Miscellaneous Notes * Op Note - Marla Zepeda MD - 03/16/2018 11:45 AM EST [facility] [place] Patient Name: Cecilia Marx : [id number] MR#: [id number] Case Date: 03/15/2018 Surgeon: Surgeon(s) and Role: * Marla Zepeda MD - Primary * Sera Weller MD - Resident-Drop Forger Helper * Vu Angela MD - Resident-Surgeon Tonny [...] right breast with path showing complex sclerosing lesion and intraductal papilloma concern for DCIS. Plan for mastectomy and SLN, and left prophylactic mastectomy. Risks and benefits discussed. Consent signed. Operative Procedure: Cecilia Marx was admitted through Same Day Surgery. She was brought up to Radiology where technesium was injected in the right breast. She was brought to the Operating Room andlaid supine on the operating table. General anesthetics were administered, and an LMA was placed for airway protection. Lymphozurin was injected in the retroareolar breast and massage was carried outfor 5 minutes. The chest was prepped and draped in a sterile fashion with chloroprep. Time-out confirmed the patient's identity, the correct [...] the right axilla was probed to identify anarea of uptake. Dissection was carried down through the clavipectoral fascia to expose the axillarylymph node basin. The gamma probe did not [...] irrigated and hemostasis achieced. Moist lap placed andwe proceded to the other side. We brought [...] wound was irrigated and hemostasis was achieved. Thedermis was reapproximated with a complex layer of [...] during the entire procedure. MARLA ZEPEDA MD * Brief Op Note - Marla Zepeda MD - 03/15/2018 8:53 PM EST Brief Operative Note Patient Name: Cecilia Marx : [id number] MR#: [id number] Case Date: 03/15/2018 Surgeon: Surgeon(s) and Role: * Marla Zepeda MD - Primary * Sera Weller MD - Resident-Drop Forger Helper * Vu Angela MD - Resident-Surgeon Tonny [...] Procedure Name Priority Date/Time Associated Diagnosis Comments SPECIMEN TO PATHOLOGY Routine 03/15/2018 9:00 PM EST SPECIMEN TO PATHOLOGY Routine 03/15/2018 9:00 PM EST SPECIMEN TO PATHOLOGY Routine 03/15/2018 8:06 PM EST SURGICAL PATHOLOGY REPORT Routine 03/15/2018 8:04 PM EST INTRAOPERATIVE ID (MAPPING) SENTINEL LYMPH NODE,INCLUDES INJECTION (WRVU 2.5) 03/15/2018 6:17 PM EST breast cancer BIOPSY OR EXCISION OF LYMPH NODE(S), OPEN, DEEP AXILLARY NODE(S) (WRVU 6.43) 03/15/2018 6:17 PM EST breast cancer MASTECTOMY, SIMPLE, COMPLETE-CARITO (WRVU 15) 03/15/2018 6:17 PM EST breast cancer documented in this encounter Results * Specimen to Pathology (03/15/2018 9:00 PM EST) AP Specimen 03/15/2018 9:00 PM EST 03/15/2018 9:38 PM EST Narrative [facility] - 03/15/2018 9:38 PM EST Specimen requisition ordered. ??Separate Pathology report to follow Resulting Agency Comment Spec In Lab Marla Blue MD PATHOLOGY/CYTOLO GY ORDERABLES Performing Organization Address [facility] Co de Phone Number [facility] [place] [address] * Specimen to Pathology (03/15/2018 9:00 PM EST) AP Specimen 03/15/2018 9:00 PM EST 03/15/2018 9:37 PM EST Narrative [facility] - 03/15/2018 9:38 PM EST Specimen requisition ordered. ??Separate Pathology report to follow Resulting Agency Comment Spec In Lab Marla Blue MD PATHOLOGY/CYTOLO GY ORDERABLES Performing Organization Address [facility] Co de Phone Number [facility] [place] [address] * Specimen to Pathology (03/15/2018 8:06 PM EST) AP Specimen 03/15/2018 8:06 PM EST 03/15/2018 8:06 PM EST Narrative [facility] - 03/15/2018 8:06 PM EST Specimen requisition ordered. ??Separate Pathology report to follow Marla Blue MD PATHOLOGY/CYTOLO GY ORDERABLES Performing Organization Address [facility] Co de Phone Number [facility] [place] [address] * Surgical Pathology Report (03/15/2018 8:04 PM EST) Final Diagnosis [id number] ? [facility]; A The signing pathologist has (i) examined the relevant preparation(s) for the specimen(s) and (ii) rendered or confirmed the diagnosis(es). . ?Surgical Pathology DIAGNOSIS A - Right breast, mastectomy: - Ductal carcinoma in-situ (see Synoptic Report and Discussion) - Atypical ductal hyperplasia and flat epithelial atypia - Usual ductal hyperplasia - Changes consistent with prior surgical site - Recent biopsy site changes B - Right axillary sentinel node, excision: Four lymph nodes, no malignancy identified (0/4) C - Left breast, mastectomy: - Focal atypical lobular hyperplasia - Intraductal papillomas, sclerosing adenosis, columnar cell change/hyperplasi a, usual ductal hyperplasia, and apocrine cysts - Changes consistent with prior surgical site Synoptic Report Specimen ? Procedure: ??Total mastectomy ? Specimen Laterality: ?? Right Tumor ? Histologic Type: ?? Ductal carcinoma in situ ? Size (Extent) of DCIS: ?? 50 Millimeters (mm) ? Architectural Patterns: ?? Comedo, Micropapillary, Solid ? Nuclear Grade: ?? Grade II (intermediate) ? Accessory Findings ?Necrosis: ??Present, central (expansive comedo necrosis) ?Microcalcificat ions: ?? Present in DCIS, Present in nonneoplastic tissue Margins ? Margins: ??Uninvolved by DCIS ?Distance of DCIS from Posterior Margin: ?1.5 Millimeters (mm) Lymph Nodes ? Regional Lymph Nodes: ?? Uninvolved by tumor cells ?Number of Varney Nodes Examined: ?4 Pathologic Stage Classification (pTNM, AJCC 8th Edition) ? Primary Tumor (pT): ?? pTis (DCIS) ? Regional Lymph Nodes (pN) ?Modifier: ??(sn): Varney node(s) evaluated. ?Category (pN): ?? pN0 Tumor Block(s): ?? A11 CAP eCC February 2017 Agile Release ER and MD studies (performed on prior biopsy, [id number]): ER: Positive (>90%, strong) MD: Positive (50%, moderate to strong) Electronically signed by: ??Antonio BANGURA, Delon Lewis Verified: ??03/22/2018 ?Pathologist Performed at: ??[facility]. [place], [place], [place] . DISCUSSION An admixture of atypical ductal hyperplasia and ductal carcinoma in-situ is present within a 5.0 cm grossly identified mass, which also contains scar and recent biopsy site changes. CLINICAL INFORMATION Specimen Submitted: A - Right breast B - Right axillary sentinel node C - Left breast Clinical History and Diagnosis: Breast cancer SPECIMEN PROCESSING A - Labeled/Fixative: Right breast, fresh. Quantity/Size/[place] ght: Single, 25 x 20.5 x 6.8 cm, 906 g. SPECIMEN DESCRIPTION Resection Specimen: Intact, right, simple mastectomy. A short suture designates superior and a long suture designates lateral. Skin: 16 x 7.4 cm, with no identifiable scars or lesions. Nipple: 1.0 cm diameter, rubbery, everted. Deep Margin: Focally irregular at the central deep margin, at the [...] Designation: Superficial is blue, deep is black. Sections/Processi ng: Blueprint Cutter sections in 22 cassettes as follows: ? A1: ??Serially sectioned nipple ? A2: ??Cross section at base of nipple ? A3-A17: ??Entire lesion 1 from lateral to medial, (10) cylinder [...] up to 2.5 cm. . SPECIMEN PROCESSING Sections/Processi ng: ??Blueprint Cutter sections in 6 cassettes as follows: ? B1: ??Single node ? B2: ??Single node ? B3: ??Single node ? B4-B6: ??Largest node serially sectioned with adjacent adipose tissue C - Labeled/Fixative: Left breast, fresh. Quantity/Size/[place] ght: Single, 25.0 x 22.0 x 5.8 cm, [...] structures are noted. Ink Designation: Deep/black; superficial/blue. Sections/Processi ng: Blueprint Cutter sections in 12 cassettes as follows: ? C1: ? Nipple ? C2: ? Base of nipple ? C3-C4: ?Blueprint Cutter upper outer quadrant ? C5-C6: ?Blueprint Cutter lower inner quadrant ? C7-C8: ?Blueprint Cutter central ? C9-C10: ?? Blueprint Cutter upper inner quadrant ? C11-C12: ??Blueprint Cutter lower inner quadrant Ischemic Time: 0.8 hours ??pps 03/22/2018 4:03 PM EST [facility] BREAST STRUCTURE / Unknown 03/15/2018 8:04 PM EST 03/15/2018 8:04 PM EST SENTINEL LYMPH NODE / Unknown 03/15/2018 8:04 PM EST 03/15/2018 8:04 PM EST BREAST STRUCTURE / Unknown 03/15/2018 8:04 PM EST 03/15/2018 8:04 PM EST Marla Blue MD PATHOLOGY/CYTOLO GY ORDERABLES Performing Organization Address City/State/[facility] Co de Phone Number [facility] [place] [address] documented in this encounter Visit Diagnoses Diagnosis Breast cancer- Primary Malignant neoplasm of breast (female), unspecified site Malignant neoplasm of female breast, unspecified estrogen receptor status, unspecified laterality, unspecified site of breast documented in this encounter Admitting Diagnoses Diagnosis Breast cancer Malignant neoplasm of breast (female), unspecified site documented in this encounter Administered Medications Inactive Administered Medications - up to 3 most recent administrations Medication Order MAR Action Action Date Dose Rate Site acetaminophen (TYLENOL) tablet 1,000 mg 1,000 mg, Oral, EVERY 8 HOURS SCHEDULED, First dose on Arpita 03/15/18 at 2245, Until Discontinued, Maximum dose of acetaminophen is 4000 mg from all sources in 24 hours., Routine Given 03/16/2018 6:11 AM EST 1,000 mg Given 03/15/2018 10:27 PM EST 1,000 mg escitalopram (LEXAPRO) tablet 10 mg 10 mg, Oral, DAILY, First dose on Mon03/16/18 at 0900, Until Discontinued, Routine Given 03/16/2018 9:00 AM EST 10 mg fentaNYL (PF) 50mcg/mL injection 25-50 mcg, Intravenous, EVERY 5 MIN PRN, [...] breakthrough pain., PACU Recovery, Routine Given 03/15/2018 10:52 PM EST 50 mcg Given 03/15/2018 10:18 PM EST 25 mcg [...] PM EST levothyroxine (SYNTHROID) tablet 88 mcg 88 mcg, Oral, DAILY, First dose on Mon03/16/18 at 0900, Until Discontinued, Routine Given 03/16/2018 9:00 AM EST 88 mcg ondansetron (ZOFRAN) injection 4 mg 4 mg, Intravenous, EVERY 30 MIN PRN, Starting on Arpita 03/15/18 at 2117, Until Arpita 03/15/18 at 2319, Nausea, May repeat 4 mg once in 30 minutes. If multiple antiemetics ordered, use ondansetron first and if ineffective use prochlorperazine second and if ineffective use promethazine, PACU Recovery Given 03/15/2018 10:31 PM EST 4 mg ondansetron (ZOFRAN) injection 4 mg 4 mg, Intravenous, EVERY 8 HOURS PRN, Starting on Arpita 03/15/18 at 2319, Until Mon03/16/18 at 1349, Nausea, May repeat times one in 30 minutes if ineffective. If multiple antiemetics are ordered, use ondansetron first, Recovery (Recovery-Hospital Unit) ondansetron (ZOFRAN) tablet [...] oxyCODONE (ROXICODONE) immediate release tablet 5 mg 5 mg, Oral, EVERY 6 HOURS PRN, Starting on Arpita 03/15/18 at 2220, Until Arpita 03/15/18 at 2256, Pain, for severe pain (8-10), Routine Given 03/15/2018 10:27 PM EST 5 mg oxyCODONE (ROXICODONE) immediate release tablet 5-10 mg 5-10 mg, Oral, EVERY 6 HOURS PRN, Starting on Arpita 03/15/18 at 2220, Until Mon03/16/18 at 1349, Pain, 5mg for pain scale 5 or greater not relieved by Tylenol. Repeat 5mg if no improvement after 1 hour., Routine Given 03/16/2018 1:52 AM EST 5 mg scopolamine (TRANSDERM-SCOP) 1 mg over 3 days [...] 1812, Until Mon03/15/18 at 1815, Francisca Olmos (srna): cabinet override sodium chloride 0.9 % flush 5 mL 5 mL, Intravenous, 2 TIMES DAILY, First dose on Arpita 03/15/18 at 2345, Until Discontinued, Recovery (Recovery-Hospital Unit), Routine Given 03/16/2018 9:00 AM EST 5 mLs Given 03/15/2018 11:41 PM EST 5 mLs documented in this encounter Active and Recently Administered Medications Times are shown in EST. Scheduled Medication Order 03/14/2018 03/15/2018 03/16/2018 acetaminophen (TYLENOL) tablet 1,000 mg 1,000 mg, Oral, EVERY 8 HOURS SCHEDULED, First dose on Arpita 03/15/18 at 2245, Until Discontinued, Maximum dose of acetaminophen is 4000 mg from all sources in 24 hours., Routine 2227 (Given - Provider: Mackenzie Strickland RN) 0611 (Given - Provider: Mackenzie Strickland RN) aspirin EC tablet 81 mg 81 mg, Oral, DAILY, First dose on Mon03/16/18 at 0900, Until Discontinued, Routine 0900 (Due) buPROPion (WELLBUTRIN SR or ZYBAN) SR tablet 150 mg 150 mg, Oral, DAILY, First dose on Mon03/16/18 at 0900, Until Discontinued, DO NOT CRUSH OR OPEN, Routine 0900 (Due) ceFAZolin (ANCEF) 2g in dextrose 5% 100 mL (COMPLETED) 2 g, Intravenous, EVERY 3 HOURS, 1 dose, First dose on Arpita 03/15/18 at 1500, Administer over 30 Minutes, Intra-Operative (Intra-Procedure), Indication for (Active or Suspected): Prophylaxis 1836 (Given - Provider: Francisca Olmos)2136 (Given - Provider: Francisca Olmos) escitalopram (LEXAPRO) tablet 10 mg 10 mg, Oral, DAILY, First dose on Mon03/16/18 at 0900, Until Discontinued, Routine 0900 (Given - Provid er: Teresa Johnson RN) levothyroxine (SYNTHROID) tablet 88 mcg 88 mcg, Oral, DAILY, First dose on Mon03/16/18 at 0900, Until Discontinued, Routine 0900 (Given - Provid er: Teresa Johnson RN) scopolamine (TRANSDERM-SCOP) 1 mg over 3 days patch 1 patch (CANCELED) 1 patch, Transdermal, EVERY 72 HOURS, First dose on Arpita 03/15/18 at 2000, Until Discontinued, Day of Surgery (Day of Procedure), Routine 181 (Given - Provider: Francisca Olmos)181 (Patch Applied - Provider: Francisca Olmos) sodium chloride 0.9 % flush 5 mL 5 mL, Intravenous, 2 TIMES DAILY, First dose on Arpita 03/15/18 at 2345, Until Discontinued, Recovery (Recovery-Hospital Unit), Routine 2341 (Given - Provider: Mackenzie Strickland, DAVID) 0900 (Given - Provider: Teresa Johnson RN) Continuous Medication Order 03/14/2018 03/15/2018 03/16/2018 lactated Ringers infusion 1,000 mL (CANCELED) 1,000 mL, at 100 mL/hr, Intravenous, CONTINUOUS, Starting on Arpita 03/15/18 at 1500, Until Arpita 03/15/18 at 2220, Day of Surgery (Day of Procedure) 181 (New Bag - Provider: Francisca Olmos)193 (New Bag - Provider: Francisca Olmos)215 (Stopped - Provider: Sanjuana Loja CRNA)2207 (New Bag - Provider: Mackenzie Strickland, DAVID) PRN Medication Order 03/14/2018 03/15/2018 03/16/2018 amitriptyline (ELAVIL) tablet 20 mg 20 mg, Oral, NIGHTLY PRN, Starting on Arpita 03/15/18 at 2220, Until Mon03/16/18 at 1349, Sleep, Routine fentaNYL (PF) 50mcg/mL injection (CANCELED) 25-50 mcg, Intravenous, EVERY 5 MIN PRN, [...] fentanyl for breakthrough pain., PACU Recovery, Routine 2205 (Given - Provider: Mackenzie Strickland RN)2217 (Given - Provider: Mackenzie Strickland, RN)2251 (Given - Provider: Mackenzie Strickland RN) ibuprofen (ADVIL;MOTRIN) tablet 600 mg 600 mg, Oral, EVERY 6 HOURS PRN, Starting on Arpita 03/15/18 at 2220, Until 03/16/18 at 1349, Pain, for moderate pain (5-7), Administer orally with milk or food to minimize GI irritation. Maximum dose of 3200 mg from all sources in 24 hours, Routine lidocaine (XYLOCAINE) 10 mg/mL (1 %) injection 3 mg 3 mg (0.3 mL), Subcutaneous, ONCE PRN, 1 dose, Starting on Arpita 03/15/18 at 2319, Until Mon03/16/18 at 1349, for discomfort with PIV insertion, Recovery (Recovery-Hospital Unit), Routine ondansetron (ZOFRAN) injection 4 mg (CANCELED) 4 mg, Intravenous, EVERY 30 MIN PRN, Starting on Arpita 03/15/18 at 2117, Until Arpita 03/15/18 at 2319, Nausea, May repeat 4 mg once in 30 minutes. If multiple antiemetics ordered, use ondansetron first and if ineffective use prochlorperazine second and if ineffective use promethazine, PACU Recovery 2230 (Given - Provider: Mackenzie Strickland RN) ondansetron (ZOFRAN) injection 4 mg(Linked Group 1) 4 mg, Intravenous, EVERY 8 HOURS PRN, Starting on Arpita 03/15/18 at 2319, Until Mon03/16/18 at 1349, Nausea, May repeat times one in 30 minutes if ineffective. If multiple antiemetics are ordered, use ondansetron first, Recovery (Recovery-Hospital Unit) ondansetron (ZOFRAN) tablet 4 mg(Linked Group 1) 4 mg, Oral, EVERY 8 HOURS PRN, Starting on Arpita 03/15/18 at 2319, Until 03/16/18 at 1349, Nausea, Vomiting, If multiple antiemetics are ordered, use ondansetron first. PO Preferred. If patient unable to take PO, may give IV if ordered. May repeat times one in 45 minutes if ineffective., Recovery (Recovery-Hospital Unit), Routine oxyCODONE (ROXICODONE) immediate release tablet 5 mg (CANCELED) 5 mg, Oral, EVERY 6 HOURS PRN, Starting on Arpita 03/15/18 at 2220, Until Arpita 03/15/18 at 2256, Pain, for severe pain (8-10), Routine 2227 (Given - Provider: Mackenzie Strickland RN) oxyCODONE (ROXICODONE) immediate release tablet 5-10 mg 5-10 mg, Oral, EVERY 6 HOURS PRN, Starting on Arpita 03/15/18 at 2220, Until 03/16/18 at 1349, Pain, 5mg for pain scale 5 or greater not relieved by Tylenol. Repeat 5mg if no improvement after 1 hour., Routine 0152 (Given - Provider: Ceferino Irvin RN) sodium chloride 0.9 % flush 5-20 mL 5-20 mL, Intravenous, EVERY 1 MIN PRN, Starting on Arpita 03/15/18 at 2319, Until Mon03/16/18 at 1349, flush, Flush pertains to all indwelling lines. Flush per protocol found in the job aid using the link provided on this medication record., Recovery (Recovery-Hospital Unit), Routine Linked Groups Order Group 1: ondansetron (ZOFRAN) tablet 4 mgJump to med 4 mg, Oral, EVERY 8 HOURS PRN, Starting on Arpita 03/15/18 at 2319, Until 03/16/18 at 1349, Nausea, Vomiting, If multiple antiemetics are ordered, use ondansetron first. PO Preferred. If patient unable to take PO, may give IV if ordered. May repeat times one in 45 minutes if ineffective., Recovery (Recovery-Hospital Unit), Routine Or ondansetron (ZOFRAN) injection 4 mgJump to med 4 mg, Intravenous, EVERY 8 HOURS PRN, Starting on Arpita 03/15/18 at 2319, Until 03/16/18 at 1349, Nausea, May repeat times one in 30 minutes if ineffective. If multiple antiemetics are ordered, use ondansetron first, Recovery (Recovery-Hospital Unit) documented in this encounter Care Teams Co Founder And Ceo Relationship Specialty Start Date End Date Christine Fuentes PA [address] [place] [address] PCP - General Family Medicine 01/24/17 10/08/19 documented as of this encounter
--- OUTSIDE RECORDS SUMMARY | 2023-12-26 13:17 | XMS_ITS | Encounter Summary ---
[place] [address] Care Team Providers Care Wardrobe Attendant Name Role Phone Christine Fuentes Primary Care Provider +1- [phone] Encounter Details Date Type Department Care Team (Late st Contact Info) Description 04/10/2018 Orders Only [place] [address] Whitney Lewis RN Malignant neoplasm of right female breast, [...] breast documented in this encounter Care Teams Wardrobe Attendant Relationship Specialty Start Date End Date Christine Fuentes PA [address] [place] [address] PCP - General Family Medicine 01/24/17 10/08/19 documented as of this encounter
--- OUTSIDE RECORDS SUMMARY | 2023-12-26 13:17 | XMS_ITS | Encounter Summary ---
[place] [address] Care Team Providers Care General Manager Road Production Name Role Phone Christine Fuentes Primary Care Provider +1- [phone] Encounter Details Date Type Department Care Team (Late st Contact Info) Description 08/09/2018 9:30 AM EDT Office [place] [address] Rhoda Brumfield, COMPUTER EDUCATION TEACHER [facility] [place] [address] History of breast cancer; Seroma of breast Social History Tobacco Use Types [...] as of this encounter Progress Notes * Rhoda Brumfield, MIRIAN - 08/09/2018 9:30 AM EDT Cecilia returns [...] is smaller but still causes her some awarenessand wonders if it can be aspirated. She wears prostheses without any trouble. No skin irritation or redness. 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 No erythema or seroma. Skinflaps healthy and pink with good cap refill. [...] amount of associated edema but no clear evidence of seroma so no indication for aspiration.Return in [...] Personal history of malignant neoplasm of breast Seroma of breast documented in this encounter Care Teams General Manager Road Production Relationship Specialty Start Date End Date Christine Fuentes PA [address] [place] [address] PCP - General Family Medicine 01/24/17 10/08/19 documented as of this encounter
--- OUTSIDE RECORDS SUMMARY | 2023-12-26 13:17 | XMS_ITS | Encounter Summary ---
Author Organization [facility] [place] [address] Care Team Providers Care Infectious Disease Physician Name Role Phone Christine Fuentes Primary Care Provider +1- [phone] Encounter Details Date Type Department Care Team (Late st Contact Info) Description 02/27/2018 Telephone [place]ematology [place] [address] [facility] [facility] [address] Social History Tobacco Use Types Packs/Day Years Used Date Smoking Tobacco: Former Cigarettes Q uit: 10/19/2011 Smokeless Tobacco: Never Sex and Gender Information Value Date Recorded Sex Assigned at Not on file Gender Identity Not on file Sexual Orientation Not on file documented as of this encounter Miscellaneous Notes * Telephone Encounter - Domenica Lama [facility] - 02/27/2018 12:47 PM EST Informed Cecilia of her negative or normal STAT Breast Cancer Panel (MARTINA, BRCA1, BRCA2, CDH1, CHEK2, PALB2, PTEN, STK11, TP53) genetic test results. 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 It is unclear at this time whether the STK11 variant of uncertain significance identified is a cancer associated mutation or is a benign change in the gene with no increased cancer risks. [facility] is continually collecting and analyzing their data, in an effort to reclassify these variants as either cancer causing mutations or benign changes in a gene (also called polymorphisms). We will be contacted by the laboratory when reclassification is made and we would then no [place]. Cecilia is aware that I reflexed to [...] on filedocumented in this encounter Care Teams Infectious Disease Physician Relationship Specialty Start Date End Date Christine Fuentes PA [address] [place] [address] PCP - General Family Medicine 01/24/17 10/08/19 documented as of this encounter
--- OUTSIDE RECORDS SUMMARY | 2023-12-26 13:17 | XMS_ITS | Encounter Summary ---
[place] [address] Care Team Providers Care Assistant Professor Of German Name Role Phone Christine Fuentes Primary Care Provider +1- [phone] Encounter Details Date Type Department Care Team (Late st Contact Info) Description 03/12/2018 Telephone Hematology [place] [address] Kiersten Wilson RN Social History Tobacco Use Types Packs/Day Years Used Date Smoking Tobacco: Former Cigarettes Q uit: 10/19/2011 Smokeless Tobacco: Never Sex and Gender Information Value Date Recorded Sex Assigned at Not on file Gender Identity Not on file Sexual Orientation Not on file documented as of this encounter Miscellaneous Notes * Telephone Encounter - Kiersten Wilson RN - 03/12/2018 3:36 PM EST Comprehensive Breast Program ([facility]) Note ?? Cecilia Marx is a 62 y.o. female with recently diagnosed right breast DCIS with history of right breast DCIS in 2010 and left breast ADH, ALH in 2018. Bilateral mastectomy and SLNB is planned for 03/15/[address] Brice. ?? Reason for call: Contacted patient to check in with her before upcoming surgery. Plan: Cecilia Marx plans for surgery on 03/15/18 and states she has the information she needs at this time. She understands she will receive a call from one of our SDP nurse this Monday to discuss time/where to report and when to stop eating/drinking. She would like [facility] to come to her home postoperatively and will discuss this prior to her discharge. She plans for one overnight stay. Cecilia states she has been in touch with Dr. Brice' office and they are aware that she will undergo root canal (in [facility]) on 03/13. She has been on penicillin and Tylenol for pain for toothache since 03/10. She is aware [facility] will schedule her post operative appts. with Dr. Birce, a medical oncologist, and PT. Cecilia has our contact numbers. documented in this encounter Plan of Treatment Not on file documented as of this encounter Visit Diagnoses Not on filedocumented in this encounter Care Teams Assistant Professor Of German Relationship Specialty Start Date End Date Christine Fuentes PA [address] [place] [address] PCP - General Family Medicine 01/24/17 10/08/19 documented as of this encounter
--- OUTSIDE RECORDS SUMMARY | 2023-12-26 13:17 | XMS_ITS | Encounter Summary ---
Author Organization [facility] [place] [address] Care Team Providers Care Contaminated Land Consultant Name Role Phone Christine Fuentes Primary Care Provider +1- [phone] Encounter Details Date Type Department Care Team (Late st Contact Info) Description 03/18/2018 Telephone [place] [address] Nick [place] MD [facility] [place] [address] Social History Tobacco Use Types Packs/Day Years [...] encounter Miscellaneous Notes * Telephone Encounter - Nick [place] MD - [...] on filedocumented in this encounter Care Teams Contaminated Land Consultant Relationship Specialty Start Date End Date Christine Fuentes PA [address] [place] [address] PCP - General Family Medicine 01/24/17 10/08/19 documented as of this encounter
--- OUTSIDE RECORDS SUMMARY | 2023-12-26 13:17 | XMS_ITS | Encounter Summary ---
Author Organization [facility] Address [facility] [place] [address] Care Team Providers Care Project Crew Worker Name Role Phone Christine Fuentes Primary Care Provider +1- [phone] Reason for Visit * Consultation (Routine) - Closed Specialty Diagnoses / Procedures Referred By Cherie abdul Referred To Contact Dermatology Diagnoses intertrigo Christine Fuentes PA [address] [place] [address] [facility] Dermatology [address] [place] [address] Referral ID Status Reason Start Date Expiration Date V isits Requested Visits Authorized [id number] Closed Consult, Test & Treat Connection Center 05/05/2017 05/05/2018 1 1 Encounter Details Date Type Department Care Team (Late st Contact Info) Description 07/03/2017 10:30 AM EDT Office Visit Dermatology at [facility] [address] [place] [address] Krystyna Estrada MD [facility] [address] [place] [address] [facility] Social History Tobacco Use Types Packs/Day Years Used Date Smoking Tobacco: Former Cigarettes Q uit: 10/19/2011 Smokeless Tobacco: Never Sex and Gender Information Value Date Recorded Sex Assigned at Not on file Gender Identity Not on file Sexual Orientation Not on file documented as of this encounter Progress Notes * Krystyna Estrada W - 07/03/2017 10:30 AM EDT Images [...] - recommended drying the skin with a chair and couch maker after bathing - Rx: ketoconazole cream - [...] by Krystyna Estrada MD Resident in Dermatology [facility] Patient seen in conjunction with staff bet taker: Huang Keller MD Section of Dermatology [facility] * Huang Keller MD - 07/03/2017 10:30 AM EDT I was the supervising physician working with Dermatology resident, Dr. Estrada, in the Dermatology Clinic during this patient visit. The level of resident supervision for this patient visit was indirect supervision with direct supervision immediately available (definition: [facility] GME Policy Statement on Graduate Medical Education, Supervision of Graduate Medical Trainees). I was immediately available to Dr. Estrada for questions and discussion regarding this visit. I have reviewed his encounter note details and level of service. HUANG KELLER MD [facility] Staff Physician documented in this encounter Plan of Treatment Not on file documented as of this encounter Visit Diagnoses Diagnosis Intertrigo Other specified erythematous condition documented in this encounter Care Teams Project Crew Worker Relationship Specialty Start Date End Date Christine Fuentes PA [address] [place] [address] PCP - General Family Medicine 01/24/17 10/08/19 documented as of this encounter
--- OUTSIDE RECORDS SUMMARY | 2023-12-26 13:17 | XMS_ITS | Encounter Summary ---
Author Organization [facility] [place] [address] Care Team Providers Care Warehouse Order Picker Name Role Phone Christine Fuentes Primary Care Provider +1- [phone] Encounter Details Date Type Department Care Team (Late st Contact Info) Description 03/11/2018 Telephone Pediatric [place] [address] Concetta Mullen MD [facility] [place] [address] Social History Tobacco Use Types Packs/Day Years Used Date Smoking Tobacco: Former Cigarettes Q uit: 10/19/2011 Smokeless Tobacco: Never Sex and Gender Information Value Date Recorded Sex Assigned at Not on file Gender Identity Not on file Sexual Orientation Not on file documented as of this encounter Miscellaneous Notes * Telephone Encounter - Concetta Mullen MD - 03/11/2018 12:20 PM EST Mrs. Marx called in today concerned that she has a tooth infection for which her dentist is prescribing her an antibiotic and that this might have an effect on her mastectomy scheduled for this week. I explained that this should not effect on her surgery, especially since she is not planning on having reconstruction or prosthesis implanted. I also explained that if the infection were to get worse then she might want to consider postponing the mastectomy, but that we could wait and see how shedoes over the next couple of days. She voiced understanding. Concetta Mullen MD 03/11/2018 documented in this encounter Plan of Treatment Not on file documented as of this encounter Visit Diagnoses Not on filedocumented in this encounter Care Teams Warehouse Order Picker Relationship Specialty Start Date End Date Christine Fuentes PA [address] [place] [address] PCP - General Family Medicine 01/24/17 10/08/19 documented as of this encounter
--- OUTSIDE RECORDS SUMMARY | 2023-12-26 13:17 | XMS_ITS | Encounter Summary ---
[place] [address] Care Team Providers Care Control Operator Flow Coat Name Role Phone Christine Fuentes Primary Care Provider +1- [phone] Encounter Details Date Type Department Care Team (Late st Contact Info) Description 05/10/2018 Telephone [place] [phone] Christina Fay, RN Social History Tobacco Use Types Packs/Day [...] encounter Miscellaneous Notes * Telephone Encounter - Christina Fay, RN - 05/10/2018 11:28 AM EDT Nursing Triage - Phone Note DATE OF CALL: 05/10/2018 TIME OF CALL: 11:29 AM PATIENT DATE OF : 1955 CALLER: Pt to the General Surgery [facility] Learning Needs Assessment Reviewed: Yes SUBJECTIVE - I had a double mastectomy and I need a root canal is that okay? PERTINENT PAST MEDICAL HISTORY: PT is s/p Patient Name: Cecilia Lazaroell : [id number] MR#: [id number] ?? Case Date: 03/15/2018 ?? Surgeon: Surgeon(s) and Role: * Marla Brice MD - Primary * Sera Weller MD - Resident-Workday Manager * Vu Angela MD - Resident-Surgeon Tonny [...] on filedocumented in this encounter Care Teams Control Operator Flow Coat Relationship Specialty Start Date End Date Christine Fuentes PA [address] [place] [address] PCP - General Family Medicine 01/24/17 10/08/19 documented as of this encounter
--- OUTSIDE RECORDS SUMMARY | 2023-12-26 13:17 | XMS_ITS | Encounter Summary ---
Author Organization [facility] Address [facility] [place] [address] Care Team Providers Care Prisoner Classification Interviewer Name Role Phone Christine Fuentes Primary Care Provider +1- [phone] Reason for Visit * Reason Comments GI Problem * Consultation (Routine) - Specialty Diagnoses / Procedures Referred By Cherie abdul Referred To Contact Gastroenterology Diagnoses abdominal pain, fatty liver Procedures consult Christine Fuentes PA [address] [place] [address] Concetta Adan MD [facility] [place] [address] Referral ID Status Reason Start Date Expiration Date V isits Requested Visits Authorized [id number] 07/26/2018 07/26/2019 1 1 Encounter Details Date Type Department Care Team (Late st Contact Info) Description 08/28/2018 8:30 AM EDT Office [place] [address] Bautista Mcgrath MD [facility] [place] [address] Fatty liver; Irritable bowel syndrome, unspecified type Social History Tobacco Use Types Packs/Day Years [...] EDT documented in this encounter Progress Notes * Bautista Mcgrath - 08/28/2018 8:30 AM EDT [facility] Division of Gastroenterology and Hepatology Outpatient Consultation Reason for Visit: fatty liver and diverticula seen on CT imaging Referred by Christine Fuentes History of Present Illness: Cecilia Marx is a 63 y.o. female with past medical history significant for breast cancer (s/p bilateral mastectomy (2018) and radiation (2009), depression, hypothyroidism, and Irritable bowel syndrome (mixed) who is referred to GI for evaluation of fatty liver disease. Ms Marx presents today for evaluation of fatty liver as well as chronic abdominal pain and mixed bowel movements. Cecilia reports that she was first told she has irritable bowel syndrome about 10 years ago. She believes that over the last 2 [...] she moves her bowels and tends to improveafter), it is also associated with food intake as she needs to move her bowels about 30 minutes after eating. She moves her bowels about 3 times a day (normal solid stool 60% of the time, loose stool30%, constipation 10% of the time). She denies any blood or black stool. She has tried taking a probiotic prescribed by her doctor with some imptovement but her symptoms still persist. She had tried the FODMAP diet for a few months last year and lost about 10 lbs however when she was diagnosed withbreast cancer earlier this year she stopped this [...] evaluated once by a GI doctor in [place] where she w as diagnosed with a rectocele. She denies any history of hematemesis, increased abdominal distension or encephalopathy. She denies any family history of liver disease. She currently drinks 1 alcoholic drink every 1-3 days on average but about 10 years ago consumed significantly more. She is not on any new medication. She has never had an endoscopy and [...] Stereotactic Biopsy Right 01/30/2018 Babs Duvall MD [facility] RAD MAMMOGRAPHY ??? PRO BX/REMV, LYMPH NODE, DEEP AXILL Right 03/15/2018 BIOPSY OR EXCISION OF LYMPH NODE(S), OPEN, DEEP AXILLARY NODE(S) (WRVU 6.43) performed by Marla Brice MD at [facility] MAIN OR ??? PRO EXCISE BREAST LES W XRAY MARKER Left 03/30/2017 EXCISION LESION, BREAST W/ PREOP.MARKER (NEEDLE LOC.) (WRVU 6.69) performed by Marla Brice MD at [facility] OSC ??? PRO INTRAOP SENTINEL LYMPH ID W/DYE INJECTION Right 03/15/2018 INTRAOPERATIVE ID (MAPPING) SENTINEL LYMPH NODE,INCLUDES INJECTION (WRVU 2.5) performed by Marla Brice MD at [facility] MAIN OR ??? PRO MASTECTOMY, SIMPLE, COMPLETE Bilateral 03/15/2018 MASTECTOMY, SIMPLE, COMPLETE-CARITO (WRVU 15.85) performed by Marla Brice MD at [facility] MAIN OR -- section x 2 in [...] of onset: 46) in an other family member;Breast Cancer (age of onset: 51) in her [...] bilateral mastectomy (2018) and radiation (2009), depression, hypothyroidism, and Irritablebowel syndrome (mixed) who is referred to GI for evaluation of fatty liver disease as well as chronic abdominal pain and mixed bowel movements. These are [...] initial approaches to fatty liver disease. She hashad some success with the FODMAP diet and is willing to explore this again but if not this diet shewill ultimately try to limit carbohydrates. Her other symptoms fit the Irvin IV criteria for irritable bowel syndrome based [...] she would like to set this up closerto her home) --Peppermint or IBgard (encapsulated peppermint) for postprandial symptoms. --Consider increase in amitriptyline from 10 mg to 25 mg This case was discussed with Dr Nella Mcgrath MD Fellow in Gastroenterology and Hepatology [place] [id number] P: [phone] F: [phone] CC NNAMDI Nicole [address] [place] [address] * Nella Acevedo MD - 08/28/2018 8:30 AM EDT I have seen and evaluated the patient with Dr. Mcgrath and agree with his note. Fibroscan fortunatelyshowed no fibrosis. For fatty liver we recommend working on weight loss, treating features of the metabolic syndrome if present (diabetes, hyperlipidemia, htn). Her gi symptoms are not related to fatty liver as noted in Dr. Mcgrath' note. Nella Acevedo MD Section of Gastroenterology & Hepatology [address] [place], [place] [id number] documented in this encounter Procedure Notes * Nella Acevedo MD - 08/28/2018 8:30 AM EDTAssociated Order(s): FIBROSCAN Procedure(s): FIBROSCAN Pre-Procedure Diagnose(s): Fatty liver [facility] Liver Fibrosis Assessment Report Indication: Fatty liver on imaging Performed by: Nella Acevedo MD Procedure: Vibration Controlled Transient Elastography (VCTE) or Fibroscan [place] Protocol: Patient's identity, procedure and site were verified, confirmatory pause performed. Discussed procedure including risks and potential complications. Questions answered. Patient verbalizes understanding and wishes to proceed with Fibroscan assessment. Patient was placed in the supine position with right arm in maximum abduction to allow optimal exposure of right lateral abdomen. Patient was briefly assessed. Testing was performed in the mid-axillary location. 50Hz Shear Wave pulses were applied and the resulting Shear Wave and Propagation Speed was detected with a 3.5MHz ultrasonic signal, using the Fibroscan probe. Skin to liver capsule distance and liver parenchyma were accessed during the entire examination with the Fibroscan probe. Patient was instructed to breathe normally and abstain from sudden movements during the procedure. At least ten Sheer Waves were produced; individual measurements of each [...] Procedure Name Priority Date/Time Associated Diagnosis Comments HEMOGRAM Routine 08/28/2018 10:30 AM EDT Fatty liver DIFFERENTIAL, AUTOMATED Routine 08/28/2018 10:30 AM EDT Fatty liver IRON AND TIBC Routine 08/28/2018 10:30 AM EDT PROTHROMBIN TIME Routine 08/28/2018 10:3 0 AM EDT Fatty liver CBC (WITH DIFF) Routine 08/28/2018 10:30 AM EDT Fatty liver HEMOGLOBIN A1C Routine 08/28/2018 10:30 AM EDT Fatty liver HEPATIC FUNCTION PANEL Routine 08/28/2018 10:30 AM EDT Fatty liver LIPID PANEL (REFLEX DIRECT LDL) Routine 08/28/2018 10:30 AM EDT Fatty liver BASIC METABOLIC PANEL Routine 08/28/2018 10:30 AM EDT Fatty liver [id number] Routine 08/28/2018 8:30 AM EDT Fatty liver documented in this encounter Results * Iron and TIBC (08/28/2018 10:30 AM EDT) Iron 118 30 - 150 mcg/dL [facility] TIBC 342 250 - 450 mcg/dL [facility] Iron Saturation 35 20 - 50 % [facility] Blood specimen (specimen) Venous Draw / Unknown 08/28/2018 10:30 AM EDT 08/28/2018 1:12 PM EDT Narrative Resulting Agency Comment Spec In Lab Bautista Mcgrath MD CHEMISTRY ORDERAB LES [facility] [place] [address] * Differential, Automated (08/28/2018 10:30 AM EDT) Neutrophil % 44.8 % [facility] Neutrophil Absolute 2.50 1.70 - 6.10 x10(3)/[facility] LABORATORY Lymph % 43.9 % [facility] Lymphocytes Abs 2.4 0.9 - 3.2 x10(3)/[facility]ORATORY Monocyte % 7.7 % [facility] Monocyte Abs 0.4 0.3 - 0.9 x10(3)/[facility] Eos % 2.3 % [facility] Eosinophils Abs 0.1 0.0 - 0.4 x10(3)/[facility]ATORY Basophil % 0.9 % [facility] Baso Absolute 0.0 0.0 - 0.1 x10(3)/[facility] Immature Gran % 0.40 % [facility] Comment: Immature granulocytes(IG's)percentage and absolute count will include metamyelocytes, myelocytes, and promyelocytes. Blood smears from CBCs yielding IG's will be scanned manually for concordance. If this scan disagrees with the automated IG or if promyelocytes are noted, a manual differential will be performed. Immature Gran Absolute 0.02 0.00 - 0.04 x10(3)/[facility] Blood specimen (specimen) 08/28/2018 10:30 AM EDT 08/28/2018 10:39 AM EDT Narrative Resulting Agency Comment Spec In Lab Bautista Mcgrath MD HEMATOLOGY ORDERA BLES [facility] [place] [address] * (ABNORMAL) Hemogram (08/28/2018 10:30 AM EDT) White Blood Cell 5.6 4.0 - 9.5 x10(3)/[facility]ORAT[facility] Red Blood Cell 4.68 4.00 - 5.21 x10(6)/[facility]ATORY Hemoglobin 13.7 11.7 - 15.5 gm/dL [facility] Hematocrit 42.8 35.7 - 45.8 % [facility] Mean Cell Volume 91.5 82.6 - 94.4 fL [facility] Mean Cell Hemoglobin 29.3 27.1 - 32.0 pg [facility] Mean Cell Hemoglobin Concentration 32.0 31.7 - 35.0 gm/dL [facility] Platelet 229 145 - 357 x10(3)/mc L [facility] RDW Standard Deviation 50.4(H) 37.0 - 46.0 fL [facility] RDW coefficient of variation 14.9(H) 11.5 - 14.1 % [facility] Mean Platelet Volume 10.5 7.6 - 12.9 fL [facility] NRBC% auto 0.0 % [facility] NRBC Absolute 0.000 0.000 - 0.000 x10(3)/mc L [facility] Blood specimen (specimen) 08/28/2018 10:30 AM EDT 08/28/2018 10:39 AM EDT Narrative Resulting Agency Comment Spec In Lab Bautista Mcgrath MD HEMATOLOGY ORDERA BLES [facility] [place] [address] * Prothrombin Time (08/28/2018 10:30 AM EDT) Prothrombin Time 11.1 9.4 - 12.5 sec [facility] International Normalization Ratio 1.0 [facility] Comment: An INR <2.0 indicates adequate procoagulant activity for hemostasis in most patients without underlying bleeding disorders, though the INR may not adequately reflect hemostatic capacity in patients with liver disease and synthetic impairment. The recommended target INR range for therapeutic anticoagulation is 2.0 ? 3.0 for most applications, though lower and higher ranges may be appropriate depending on clinical circumstances. Blood specimen (specimen) 08/28/2018 10:30 AM EDT 08/28/2018 10:39 AM EDT Narrative Resulting Agency Comment Spec In Lab Nella Acevedo MD HEMATOLOGY ORDERABLE S [facility] [place] [address] * Lipid Panel (08/28/2018 10:30 AM EDT) Cholesterol, Total 220 mg/dL [facility] Comment: Lower Risk: <200 mg/dL Average Risk: 200-239 mg/dL Higher Risk: >nd=305 mg/dL Triglyceride 172 mg/dL [facility] Comment: Average Risk/Lower Risk: <150 mg/dL Borderline High Risk: 150-199 mg/dL High Risk: 200-499 mg/dL Very High Risk: >ts=368 mg/dL HDL Cholesterol 62 mg/dL [facility] Comment: Males: ?? Higher Risk: <40 mg/dL Females: ?? HIgher Risk: <50 mg/dL LDL Cholesterol 124 mg/dL [facility] Comment: Lowest Risk: <100 mg/dL Lower Risk: 100-129 mg/dL Borderline High Risk: 130-159 mg/dL High Risk: 160-189 mg/dL Very High Risk: >qr=216 mg/dL Cholesterol/HDL Ratio 3.5 ratio [facility] Lipid Interpretation See Note [facility] Comment: Lipid management should be guided by a patient? s ASCVD risk, goals and preferences. ACC/AHA Guidelines recommend high intensity statin if clinical ASCVD or LDL greater than or equal to 190 mg/dL. http://tinyurl.com/EXH-OUF-Zhwzuiume Adults aged 40-75 with LDL 70-189 mg/dL should have their 10 year ASCVD risk estimated with the ACC/AHA ASCVD risk school leader http://tools.acc.org/EAZCN-Kjji-Alvmoyaor/ Statin should be discussed if risk greater [...] In Lab Nella Acevedo MD CHEMISTRY ORDERABLES [facility] [place] [address] * Hemoglobin A1c (08/28/2018 10:30 AM EDT) Hemoglobin A1c 5.4 4.3 - 5.6 % [facility] Comment: Reference Range: 4.3 - [...] Mellitus, Diabetes Care 2013; 36: Suppl. 1, H77-79 Estimated Average Glucose 109 mg/dL [facility] Comment: eAG equivalents for HbA1c [...] into estimated average glucose values. ??Diabetes Care 2008:31(8):9883-8142. Blood specimen (specimen) 08/28/2018 10:30 AM EDT 08/28/2018 10:39 AM EDT Narrative Resulting Agency Comment Spec In Lab Nella Acevedo MD CHEMISTRY ORDERABLES [facility] [address] * (ABNORMAL) Basic Metabolic Panel (non-fasting) (08/28/2018 10:30 AM EDT) Glucose 102 65 - 199 mg/dL [facility] Comment:Diabetes: >=200 mg/d L plus symptoms Blood Urea Nitrogen 21(H) 8 - 18 mg/dL [facility] Creatinine 0.93 0.70 - 1.20 mg/dL [facility] Sodium 142 135 - 145 mmol/L [facility] Potassium 4.5 3.5 - 5.0 mmol/L [facility] Comment: Please note: ??Patients with WBC >100,000 may have falsely elevated Potassium levels. ??For accurate Potassium quantification in these patients send serum separator tube (gold top) for subsequent determinations. ??Contact the Clinical Chemistry Laboratory if there are any questions. Chloride 107 98 - 107 mmol/L [facility] Carbon Dioxide 22 22 - 31 mmol/L [facility] Anion Gap 13 5 - 15 mmol/L [facility] Calcium 9.3 8.5 - 10.5 mg/dL [facility] Est Glomerular Filtration Rate 66 >=60 mL/min/1. 73 m?? [facility] Comment: The eGFR was calculated using the CKD-EPI equation. As with all creatinine based estimates of kidney function, eGFR values calculated with the CKD-EPI equation are not accurate in patients with acute kidney failure, extremes of body mass or the acutely ill. http://[employer]/[facility]STERnkf eGFR 76 >=60 mL/min/1. 73 m?? [facility] Comment: The eGFR was calculated using the CKD-EPI equation. As with all creatinine based estimates of kidney function, eGFR values calculated with the CKD-EPI equation are not accurate in patients with acute kidney failure, extremes of body mass or the acutely ill. http://[employer]/[facility]f Blood specimen (specimen) 08/28/2018 10:30 AM EDT 08/28/2018 10:39 AM EDT Narrative Resulting Agency Comment Spec In Lab Nella Acevedo MD CHEMISTRY ORDERABLES Performing Organization Address [facility] Co de Phone Number [facility] [place] [address] * (ABNORMAL) Hepatic Function Panel (08/28/2018 10:30 AM EDT) Protein, Total 7.7 6.1 - 8.0 gm/dL [facility] Albumin 4.3 3.2 - 5.2 gm/dL [facility] Aspartate Aminotransferase 31(H) 0 - 30 unit/L [facility] Alanine Aminotransferase 33(H) 0 - 30 unit/L [facility] Alkaline Phosphatase 74 40 - 104 unit/L [facility] Bilirubin, Total 0.4 0.2 - 1.3 mg/dL [facility] Bilirubin, Direct 0.1 0.0 - 0.3 mg/dL [facility] Blood specimen (specimen) 08/28/2018 10:30 AM EDT 08/28/2018 10:39 AM EDT Narrative Resulting Agency Comment Spec In Lab Nella Acevedo MD CHEMISTRY ORDERABLES Performing Organization Address City/[facility] Co de Phone Number [facility] [place] [address] * [id number] (08/28/2018 8:30 AM EDT) Bautista Pendleton - 08/28/2018 8:30 AM EDT Nella Acevedo MD ? 08/28/2018 ??1:08 PM [facility] Liver Fibrosis Assessment Report Indication: ??Fatty liver on imaging Performed by: ??Nella Acevedo MD Procedure: Vibration Controlled Transient Elastography (VCTE) or Fibroscan [place] Protocol: Patient's identity, procedure and site were verified, confirmatory pause performed. Discussed procedure including risks and potential complications. Questions answered. Patient verbalizes understanding and wishes to proceed with Fibroscan assessment. Patient was placed in the supine position with right arm in maximum abduction to allow optimal exposure of right lateral abdomen. Patient was briefly assessed. Testing was performed in the mid-axillary location. 50Hz Shear Wave pulses were applied and the resulting Shear Wave and Propagation Speed was detected with a 3.5MHz ultrasonic signal, using the Fibroscan probe. Skin to liver capsule distance and liver parenchyma were accessed during the entire examination with the Fibroscan probe. Patient was instructed to breathe normally and abstain from sudden movements during the procedure. At least ten Sheer Waves were produced; individual measurements of each Shear Wave were calculated. Patient tolerated the procedure well with no complications. Fibroscan Results: Median kPa: 3.6 Mean IQR: 17% (goal is <30 %) Number of valid measurements: ??10 (at least 10 required) Number of invalid measurements: 1 Predicted fibrosis stage: F0 CAP (dB/m): 346 Estimated steatosis grade:3 /3 % hepatocytes affected: > 66 % Interpretation: Based on this Fibroscan result, history, clinical examination and review of laboratory and radiological data, this patient likely has stage 0 liver fibrosis with significant steatosis. Nella Acevedo MD PROCEDURE/MINOR SURG ICAL ORDERABLES documented in this encounter Visit Diagnoses Diagnosis Fatty liver Other chronic nonalcoholic liver disease Irritable bowel syndrome, unspecified type documented in this encounter Care Teams Prisoner Classification Interviewer Relationship Specialty Start Date End Date Christine Fuentes PA [address] [place] [address] PCP - General Family Medicine 01/24/17 10/08/19 documented as of this encounter
--- OUTSIDE RECORDS SUMMARY | 2023-12-26 13:17 | XMS_ITS | Encounter Summary ---
Author Organization [facility] [place] [address] Care Team Providers Care Automotive Power Electronics Engineer Name Role Phone Christine Fuentes Primary Care Provider +1- [phone] Encounter Details Date Type Department Care Team (Late st Contact Info) Description 01/22/2018 9:23 AM EST - 01/22/2018 11:59 PM EST Hospital Encounter [place] [address] Rhoda Brumfield, BOND TRADER [facility] [place] [address] Breast cancer screening, high risk patient; History of breast cancer Discharge Disposition: Home Social History Tobacco Use [...] Name Priority Date/Time Associated Diagnosis Comments MAMMO SCREENING CAD AND IMMANUEL BILATERAL Routine 01/22/2018 10:07 AM EST Breast cancer screening, high risk patient History of breast cancer documented in this encounter Results * Mammo Screening Cad and Immanuel Bilateral [...] Rhoda Brumfield APRN IMG MAMMO ORDERA BLES documented in this encounter Visit Diagnoses Diagnosis Breast cancer screening, high risk patient Screening mammogram for high-risk patient History of breast cancer Personal history of malignant neoplasm of breast documented in this encounter Care Teams Automotive Power Electronics Engineer Relationship Specialty Start Date End Date Christine Fuentes PA [address] [place] [address] PCP - General Family Medicine 01/24/17 10/08/19 documented as of this encounter
--- OUTSIDE RECORDS SUMMARY | 2023-12-26 13:17 | XMS_ITS | Encounter Summary ---
Author Organization [facility] [place] [address] Care Team Providers Care Transmission Calibration Engineer Name Role Phone Christine Fuentes Primary Care Provider +1- [phone] Encounter Details Date Type Department Care Team (Late st Contact Info) Description 02/21/2018 Notes Only [place] [address] Aliyah Maynard, [facility] DR [place] [address] Social History Tobacco Use Types Packs/Day Years [...] (167 lb 8 oz) 02/21/2018 12:[address] Height 161.9 cm (5' 3.75) 02/21/2018 12:[address] Body Mass Index 28.98 02/21/2018 12:17 PM EST documented in this encounter Progress Notes * Aliyah Maynard, RN - 02/21/2018 12:17 PM EST [id number]: Preclinical study of the aryl hydrocarbon receptor and other biomarkers in human adipose tissue and their potential links among obesity and breast cancer Date: 02/21/2018 Objective of visit: Meet with patient in 3K clinic to provide information regarding protocol [id number], answer questions or concerns about study plan and [...] and review concerns, all of which were answered to the patient???s satisfaction. She asked if Dr. [...] consent she completed study questionnaire. Waist measurement was40.5 inches. Original, signed informed consent document scanned into patient???s electronic medical record and original hard copy given to Eleonora Mercedes, CRC. Written informed consent was obtained prior to any study procedures being done. Plan: 1. Eligibility will be reviewed and patient will be enrolled on study [id number] per her consent. 2. Orders will be placed for study lab and tissue sample to be taken day of procedure; which will conclude her participation in the study. Dr. Cordova's lab notified. documented in this encounter Plan of Treatment Not on file documented as of this encounter Visit Diagnoses Not on filedocumented in this encounter Care Teams Transmission Calibration Engineer Relationship Specialty Start Date End Date Christine Fuentes PA [address] [place] [address] PCP - General Family Medicine 01/24/17 10/08/19 documented as of this encounter
--- OUTSIDE RECORDS SUMMARY | 2023-12-26 13:17 | XMS_ITS | Encounter Summary ---
[place] [address] Care Team Providers Care Plugger Man Name Role Phone Christine Fuentes Primary Care Provider +1- [phone] Encounter Details Date Type Department Care Team (Late st Contact Info) Description 08/09/2018 11:00 [place] [address] January Davis Social History Tobacco Use Types [...] encounter Progress Notes * January Davis - 08/09/2018 11:00 AM EDT Cecilia Marx comes in today and would like to purchase some new bras just like the ones we fit her with in March. Delivered to her today: 110-L-C/D- white We ordered her 3 more, [place], and [place]. She paid for all 4 of them today with [employer] $145.56 F/up: 08/28/18 to oyster picker the 3 we ordered today. documented in this encounter Plan of Treatment Not on file documented as of this encounter Visit Diagnoses Not on filedocumented in this encounter Care Teams Plugger Man Relationship Specialty Start Date End Date Christine Fuentes PA [address] [place] [address] PCP - General Family Medicine 01/24/17 10/08/19 documented as of this encounter
--- OUTSIDE RECORDS SUMMARY | 2023-12-26 13:17 | XMS_ITS | Encounter Summary ---
Author Organization [facility] [place] [address] Care Team Providers Care Credit Administrator Name Role Phone Christine Fuentes Primary Care Provider +1- [phone] Encounter Details Date Type Department Care Team (Late st Contact Info) Description 03/01/2018 Orders Only [place] [address] Aliyah Connors, WELDER APPRENTICE COMBINATION [facility] [place] [address] Research subject (Primary Dx) Social History Tobacco Use Types Packs/Day Years Used Date Smoking Tobacco: Former Cigarettes Q uit: 10/19/2011 Smokeless Tobacco: Never Sex and Gender Information Value Date Recorded Sex Assigned at Not on file Gender Identity Not on file Sexual Orientation Not on file documented as of this encounter Miscellaneous Notes * Addendum Note - Aliyah Connors, RN - 03/01/2018 9:19 AM ESTAddended by: ALIYAH CONNORS on: 03/14/2018 11:17 AM Modules accepted: Orders documented in this encounter Plan of Treatment Not on file documented as of this encounter Visit Diagnoses Diagnosis Research subject- Primary Reserved for inherently not codable concepts WITHOUT codable children documented in this encounter Care Teams Credit Administrator Relationship Specialty Start Date End Date Christine Fuentes PA [address] [place] [address] PCP - General Family Medicine 01/24/17 10/08/19 documented as of this encounter
--- OUTSIDE RECORDS SUMMARY | 2023-12-26 13:17 | XMS_ITS | Encounter Summary ---
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 [address] Ductal carcinoma in situ (DCIS) of breast, unspecified laterality; Family history of malignant neoplasm of breast Social History Tobacco Use Types Packs/Day Years Used Date Smoking Tobacco: Former Cigarettes Q uit: 10/19/2011 Smokeless Tobacco: Never Sex and Gender Information Value Date Recorded Sex Assigned at Not on file Gender Identity Not on file Sexual Orientation Not on file documented as of this encounter Progress Notes * Domenica Lama LGC - 02/21/2018 1:00 PM EST Ms. Marx was seen by Lazara Lama MS [facility] in consultation at the request of [...] right breast at age 54. At that time,she underwent a partial mastectomy and radiation therapy. 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 Hormonal therapy in the form of Tamoxifen was declined. In January of 2018, Cecilia was also found to have additional DCIS in the right breast. Cecilia is planning on having bilateral mastectomy. She wouldconsider having her ovaries removed if she was [...] (grandmother's sister) 45 Maternal ethnic background is [place]. Paternal ethnic background is unknown. Genetic risk [...] including BRCA1 and BRCA2. Cecilia opted for testing and was consented. Her blood sample was drawn today and sent to [facility]. ?? The results of the STAT panel will be available in 5-12 calendar days. If that is normal, follow-uptesting will take another 2-3 weeks. Cecilia will be contacted via telephone once her test results become available. If positive, we will schedule an in person follow-up appointment. At that time, we will discuss with Cecilia the implications that this test result may have for her, as well as her family members. We will also provide Cecilia with screening guidelines for cancer prevention and early detection, as well as answer any questions she may have. ?? documented in this encounter Plan of Treatment Not on file documented as of this encounter Results * Research Venipuncture (02/21/2018 2:11 PM EST) Research Venipuncture Complete [facility] Blood specimen (specimen) 02/21/2018 2:11 PM EST 02/21/2018 2:18 PM EST Narrative Resulting Agency Comment Spec In Lab Avi Talbot MD CHEMISTRY ORDERABLES [facility] [place] [address] documented in this encounter Visit Diagnoses Diagnosis Ductal carcinoma in situ (DCIS) of breast, unspecified laterality Family history of malignant neoplasm of breast documented in this encounter Care Teams Transport Conductor Relationship Specialty Start Date End Date Christine Fuentes PA [address] [place] [address] PCP - General Family Medicine 01/24/17 10/08/19 documented as of this encounter
--- OUTSIDE RECORDS SUMMARY | 2023-12-26 13:17 | XMS_ITS | Encounter Summary ---
[place] [address] Care Team Providers Care Soa Integration Developer Name Role Phone Christine Fuentes Primary Care Provider +1- [phone] Reason for Referral * Diagnostic Test (Routine) - Closed Specialty Diagnoses / Procedures Referred By Cherie abdul Referred To Contact Radiology Diagnoses Ductal carcinoma in situ (DCIS) of right breast Procedures NM Aurora Node Injection Breast wo Imaging Marla Brice MD [facility] [address] [place] [address] Referral ID Status Reason Start Date Expiration Date V isits Requested Visits Authorized [id number] Closed Specialty Service Requested 02/23/2018 02/23/2019 1 1 Encounter Details Date Type Department Care Team (Late st Contact Info) Description 02/23/2018 Orders Only [place] [address] Marla Brice MD [facility] [place] [address] Ductal carcinoma in situ (DCIS) of right [...] documented as of this encounter Results * NM Aurora Node Injection Breast wo Imaging (03/15/2018 1:11 PM EST) Anatomical Region Laterality Modality Nuclear Medicine Impressions 03/15/2018 1:50 PM EST Aurora node injections performed without complication. Thank you for letting us participate in the care of this patient. For questions regarding this report, please contact the number below. ? Electronically signed by: Aleksandar Ibanez [facility] ([phone]), at 03/15/2018 1:50 PM Narrative 03/15/2018 1:50 [...] patient left the department ingood condition. IMPRESSION Aurora node injections performed without complication. Thank you for letting us participate in the care of this patient. Forquestions regarding this report, please contact the number below. 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
--- OUTSIDE RECORDS SUMMARY | 2023-12-26 13:17 | XMS_ITS | Encounter Summary ---
[place] [address] Care Team Providers Care Integrated Pest Management Technician Name Role Phone Christine Fuentes Primary Care Provider +1- [phone] Encounter Details Date Type Department Care Team (Late st Contact Info) Description 02/22/2018 Telephone Hematology [place] [address] Kiersten Wilson RN Social History Tobacco Use Types Packs/Day Years Used Date Smoking Tobacco: Former Cigarettes Q uit: 10/19/2011 Smokeless Tobacco: Never Sex and Gender Information Value Date Recorded Sex Assigned at Not on file Gender Identity Not on file Sexual Orientation Not on file documented as of this encounter Miscellaneous Notes * Telephone Encounter - Kiersten Wilson RN - 02/22/2018 5:55 PM EST Comprehensive Breast Program (CBP) Note Cecilia Marx is a 62 y.o. female with newly diagnosed ER/MN+ right breast DCIS (biopsy 01/30/2018at [facility]). She has a history of right breast partial mastectomy for DCIS and left breast wide local excision. She met with Dr. Brice on 02/21 in surgical consultation. Reason for call: Returned Cecilia's call. After thinking it over, Cecilia decided upon bilateral mastectomies without reconstruction. She cancelled her plastic surgery consultation scheduled for 02/26. She does not need to wait for the results of genetic testing to set up surgery date and requested we proceed with same. Cecilia understood that Dr. Brice would admit her for one overnight admission. She would like to have VNA set up for her at home prior to her discharge. Plan: Her request is communicated to Dr. Brice and to our OR schedulers. Cecilia is interested in post mastectomy bras and prostheses. We discussed that typically fitting would take place 6 weeks or later post surgery and that she may meet with our mastectomy fitter in [place] or someone closer to her home. Will provide information to her on [facility] in [place].. documented in this encounter Plan of Treatment Not on file documented as of this encounter Visit Diagnoses Not on filedocumented in this encounter Care Teams Integrated Pest Management Technician Relationship Specialty Start Date End Date Christine Fuentes PA [address] [place] [address] PCP - General Family Medicine 01/24/17 10/08/19 documented as of this encounter
--- OUTSIDE RECORDS SUMMARY | 2023-12-26 13:17 | XMS_ITS | Encounter Summary ---
[place] [address] Care Team Providers Care Supervisor Pipeline Name Role Phone Christine Fuentes Primary Care Provider +1- [phone] Encounter Details Date Type Department Care Team (Late st Contact Info) Description 04/24/2018 3:30 [place] [address] January Davis Social History Tobacco Use Types [...] encounter Progress Notes * January Davis - 04/24/2018 3:30 PM EST Cecilia Marx comes in for f/up today. She is here to picking supervisor items ordered for her on 04/10/18 Patient Cecilia Marx 1.24.57 DX Right br ca C50.911 [facility] [id number] Products 929-08 Quantity 1 Ordering Marla Brice Self Pay tipple supervisor date 04.24.18 Delivered today: 110 bra beige 110 bra black 929-08 X2 See 04/10/18 note for fitting details Paid with card on 04.10.18 $180.52 documented in this encounter Plan of Treatment Not on file documented as of this encounter Visit Diagnoses Not on filedocumented in this encounter Care Teams Supervisor Pipeline Relationship Specialty Start Date End Date Christine Fuentes PA [address] [place] [address] PCP - General Family Medicine 01/24/17 10/08/19 documented as of this encounter
--- OUTSIDE RECORDS SUMMARY | 2023-12-26 13:17 | XMS_ITS | Encounter Summary ---
Author Organization [facility] [place] [address] Care Team Providers Care Gravity Prospecting Supervisor Name Role Phone Christine Fuentes Primary Care Provider +1- [phone] Encounter Details Date Type Department Care Team (Late st Contact Info) Description 02/21/2018 10:45 AM EST Office Visit Hematology [place] [address] Marla Brice MD [facility] [place] [address] Kiersten Wilson RN Ductal carcinoma in situ (DCIS) of right [...] 37.3 ??C (99.2 ??F) 02/21/2018 10:[address] Respiratory Rate - - Oxygen Saturation - - Inhaled Oxygen Concentration - - Weight - - Height - - Body Mass Index - - documented in this encounter Progress Notes * Kiersten Wilson RN - 02/21/2018 10:45 AM EST Comprehensive Breast Program Note Cecilia Marx is a 62 y.o. female with right breast cancer. I met with the patient and her , Tigre, in clinic. She is aware of plastic surgery consultation on 02/[address] Lenz and genetic counselor neeta. Today. SPECIFIC TEACHIN. Breast Cancer Treatment Handbook [...] Exercises handout created by physical therapists at [facility]. She understands she may begin the first two to three exercises [...] Clinic Nurses was given and the Doctor salmon troll fisher system explained. 10. We discussed the recommended 150 minutes of aerobic exercise and two strength training sessionsper week after a breast cancer diagnosis. She verbalized understanding of the plan of care and states all her questions were answered. Fifteen minutes was spent in education and providing support. Cecilia has our contact information. She will schedule surgery after her plastics consultation. Pre-op MRI: Yes Abnormalities detected No (other than index lesion) Referral to familial counseling: Yes Marla Snell MD - 02/21/2018 10:45 AM EST Surgical Oncology Follow Up Note - New diagnosis of DCIS Reason for Visit: Cecilia Marx is a 62 y.o. female referred back to me by Christine Fuentes for evaluation of right breast DCIS. HPI:Cecilia Marx is a 61F with PMH right breast DCIS s/p partial mastectomy and RT in 2009 ([facility]). She was followed by surgeon [...] bony pain or tenderness.stopped drinking wine around [place] time due to depression. Reports a left [...] Stereotactic Biopsy Right 01/30/2018 Babs Duvall MD [facility] RAD MAMMOGRAPHY ??? PRO EXCISE BREAST LES W XRAY MARKER Left 03/30/2017 EXCISION LESION, BREAST W/ PREOP.MARKER (NEEDLE LOC.) (WRVU 6.69) performed by Marla Brice MD at [facility] OSC Current Outpatient Medications: ??? hydrocortisone 2.5 % Cream, Mix with ketoconazole and apply to affected areas in the groin twice daily as needed, then decrease to twice weekly., Disp: 30 g, Rfl: 3 ??? ketoconazole (NIZORAL) 2 % Cream, Mix with hydrocortisone and apply to affected areas in the groin twice daily as needed, then decrease to twice weekly, Disp: 30 g, Rfl: 3 ??? buPROPion (WELLBUTRIN SR OR ZYBAN) 150 mg Tablet Sustained Release 12 hr, Take by mouth., Disp:, Rfl: ??? fish oil-omega-3 fatty acids 1,000 [...] (Patient taking differently: 20 mg PO at HS), Disp: , Rfl: ??? ibuprofen (ADVIL;MOTRIN) 200 mg Tablet, Take 200 mg by mouth every 6 hours as needed for Pain.,Disp: , Rfl: DRUG ALLERGIES: Allergies as of [...] systems was obtained from the patient and confirmed by me. It was negative except for what [...] these biopsy results. Based on biopsy path and imaging, the lesion was partially sampled. Regarding this [...] risk of false positives and biopsies, but maydetect cancer earlier. In addition, we discussed her [...] time to think about the above and letme know her decision. At this time she [...] breast documented in this encounter Care Teams Gravity Prospecting Supervisor Relationship Specialty Start Date End Date Christine Fuentes PA [address] [place] [address] PCP - General Family Medicine 01/24/17 10/08/19 documented as of this encounter
--- OUTSIDE RECORDS SUMMARY | 2023-12-26 13:17 | XMS_ITS | Encounter Summary ---
Author Organization [facility] [place] [address] Care Team Providers Care Adjunct Trainer Name Role Phone Chirstine Fuentes Primary Care Provider +1- [phone] Encounter Details Date Type Department Care Team (Late st Contact Info) Description 04/30/2018 Telephone [place] [id number] Chantelle Foote RN Social History Tobacco Use Types Packs/Day [...] encounter Miscellaneous Notes * Telephone Encounter - Chantelle Alcala RN - 04/30/2018 10:20 AM EDT Images from the original note were not included. I called Cecilia after she left a message on the General Surgery Nurses line. Cecilia lives in [place], [place] ~ [place] She [...] the area where she has her ridges from healing. She notes wearing the bra causes the area to be reddened but it is also pink even days after going without the bra for days. Cecilia is to ester the areas where she has noted the pink flush under her incisions and to monitor the areas to see if it retracts or extends beyond the marking. She is to monitor for any signs and symptoms of infection. She is to send in pictures of what she describes in the phone conversation so it can be passed on to Dr. Brice to allow for a plan of [...] not sure because she recently has been toldshe needs to have a root canal at one of her upper tooth and this is the same area where she questions pressure from her sinus. I was able to speak to Dr. Brice in clinic and show her the photos Cecilia sent in. She advises to monitor the areas over the next 48 hours. If the redness increases or if she develops any signs or symptoms of infection ( increased swelling, increased pain, increased redness in intensity or extending beyond the lines drawn) she should seek care. She can go locally or she can come to [facility]. She notes some times wearing the bra can put pressure on the healing areas increasing irritation. I called Cecilia back and let her know all of this information, she agrees with the plan. I will share this note with Cecliia's primary care provider also. Delon Tyson MD routed this conversation to Marla Brice MD ??? [facility] [place] Delon Tyson MD ?? 04/29/18 11:55 AM Telephone Note - Received call from Cecilia Marx who underwent bilateral mastectomy with sentinellymph node on 03/16/2018. Patient doing well but [...] route this note to appropriate secretaries and patient has been instructed to call at 0800 tomorrow. ?? She will also call back should she develop any fevers, chills, drainage, pain or with any questionsor concerns. ?? Robert Tyson Vascular Surgery, PGY3 Pager #[phone] documented in this encounter Plan of Treatment Not on file documented as of this encounter Visit Diagnoses Not on filedocumented in this encounter Care Teams Adjunct Trainer Relationship Specialty Start Date End Date Christine Fuentes PA [address] [place] [address] PCP - General Family Medicine 01/24/17 10/08/19 documented as of this encounter
--- OUTSIDE RECORDS SUMMARY | 2023-12-26 13:17 | XMS_ITS | Encounter Summary ---
Author Organization [facility] [place] [address] Care Team Providers Care Bar Supervisor Name Role Phone Christine Fuentes Primary Care Provider +1- [phone] Encounter Details Date Type Department Care Team (Latest Contact Info) Description 01/30/2018 1:03 PM EST - 01/30/2018 11:59 PM EST Hospital En[place] [address] Babs Duvall MD [facility] [place] [address] Abnormal mammogram Discharge Disposition: Home Social History Tobacco Use [...] Name Priority Date/Time Associated Diagnosis Comments MAMMO STEREOTACTIC BIOPSY RIGHT Routine 01/30/2018 1:50 PM EST Abnormal mammogram SPECIMEN TO PATHOLOGY Routine 01/30/2018 1:33 PM EST SURGICAL PATHOLOGY REPORT Routine 01/30/2018 1:25 PM EST documented in this encounter Results * Mammo Stereotactic Biopsy Right (01/30/2018 1:50 PM EST) Anatomical Region Laterality Modality Breast N/A Mammography Impressions 02/01/2018 1:30 PM EST Concordant malignant result. I suspect that the patient has more extensive DCIS since only sparse calcifications were harvested and the microcalcifications are associated with both DCIS and ADH. RECOMMENDATION: Definitive surgical management. I discussed these results and recommendations with the patient, established already with Dr. Brice, on 02/01/2018 at 1330 hours. REVIEW PATH CONFERENCE?: No Narrative 02/01/2018 1:30 PM EST STEREOTACTIC GUIDED VACUUM ASSISTED BIOPSY OF THE RIGHT BREAST CLINICAL HISTORY: abnormal mammogram right breast microcalcifications deep central aspect 8.5 cm from the nipple spanning 1 cm Procedural details: Informed consent was obtained and a time out procedure was performed per protocol. The patient gave permission to proceed. Using sterile technique and local anesthetic (less than 20cc's of 1% lidocaine) a biopsy was performed using tomographic guidance. Multiple core biopsy specimens were obtained using a 9g vacuum assist device. 21 core biopsy specimens were obtained using a Bandwidth Eviva 9g device. Biopsy specimens were radiographed. ??The abnormality was present on the specimen digital radiograph. A Smark Eviva cylinder marker clip was placed. Cranio-caudal and lateral digital mammography was performed to determine biopsy marker placement. ??The marker was shown to be at the biopsy site. COMPLICATIONS: None. PROCEDURAL ATTESTATION: Resident: None I performed the procedure without a resident. IMAGING DIFFERENTIAL DIAGNOSIS: Ductal carcinoma in situ, fibrocystic change PATHOLOGIC DIAGNOSIS: Focal ductal carcinoma in situ in a background of diffuse atypical duct hyperplasia. Babs Duvall MD IMG MAMMO ORDERABL ES * Specimen to Pathology (01/30/2018 1:33 PM EST) AP Specimen 01/30/2018 1:33 PM EST 01/30/2018 1:33 PM EST Narrative [facility] - 01/30/2018 1:33 PM EST Specimen requisition ordered. ??Separate Pathology report to follow Babs Duvall MD PATHOLOGY/CYTOLOGY ORDERABLES Performing Organization Address City/State/[facility] Co de Phone Number [facility] [place] [place] [address] * Surgical Pathology Report (01/30/2018 1:25 PM EST) Final Diagnosis [id number] ? Location: 3L The signing pathologist has (i) examined the relevant preparation(s) for the specimen(s) and (ii) rendered or confirmed the diagnosis(es). . ?Surgical Pathology DIAGNOSIS Needle biopsies: ?Right breast. Diagnosis: Ductal carcinoma in-situ, focal, in a background of diffuse atypical ductal hyperplasia, flat epithelial atypia, adenosis and stromal sclerosis. (see Discussion.) Microcalcifications: ??Associated with DCIS and ADH. On A2 Immunohistochemistry Studies ER immunoreactivity: Positive ( ??>90% cancer cells with immunostaining) Stain intensity: Strong ID immunoreactivity: Positive (~50% cancer cells with immunostaining) Stain intensity: Strong adn focal moderate ? ------ *Diagnostic [place]am[place] for hormone receptors (ASCO/CAP GUIDELINES, 2010): ?Negative immunoreactivity: ?? <1% tumor cells with immunostaining ?Positive immunoreactivity: ?? >=1% tumor cells with immunostaining Immunohistochemical assays were performed on paraffin-embedded tissue sections fixed in 10% neutral buffered formalin for 6-72 hours using the polymer system technique with appropriate controls. The assays were performed according to the executive steward ? 's instructions using Anti-ER (SP1) and Anti-ID (16) antibodies. Electronically signed by: ??Kamryn Gregory DO Verified: ??02/01/2018 ?Pathologist Performed at: ??-[facility]. [place], [place], [place] DISCUSSION The DCIS shows a micropapillary pattern with intermediate nuclear grade and comdeonecrosis. ??A solid low nuclear grade pattern without necrosis is also focally present. ADDITIONAL STUDIES Immunohistochemistry Studies: Formalin-fixed, paraffin-embedded tissue sections are studied using the polymer technique with appropriate positive and negative controls. ?These IHC studies provide the pathologist with adjunctive diagnostic information. Antibody specificity has been verified by testing antibodies on a series of in-house tissues with known immunohistochemical performance characteristics. The clinical interpretation of any antibody positive staining or its absence is evaluated within the context of clinical presentation, morphology, histopathological criteria and other diagnostic tests. Block ? Antibody ?Result (Positive/Negative) A1 ? Calponin ? Positive CLINICAL INFORMATION Specimen Submitted: A - Right breast stereo bx with and without calcs . CLINICAL INFORMATION Clinical History and Diagnosis: Right breast calcifications; DCIS, FCC SPECIMEN PROCESSING A - Received in two containers: 1 - Labeled/Fixative: Stereo biopsy with calcs, formalin Quantity/Size: Multiple, 0.2-2.2 cm. Tissue Description: Yellow-james fibrofatty needle core biopsies. Submitted in: A1-A4 2 - Labeled/Fixative: Right breast stereo biopsy no calcs, formalin. Quantity/Size: Multiple, 0.2-2.5 cm. Tissue Description: Yellow-james fibrofatty needle core biopsies. Submitted in: A5-A 10 Sections/Processing: Entirely submitted in 10 cassettes labeled A1-A10. Ischemic Time: 7 minutes ??ejr 02/01/2018 9:15 AM EST [facility] BREAST STRUCTURE / Unknown 01/30/2018 1:25 PM EST 01/30/2018 1:25 PM EST Babs Duvall MD PATHOLOGY/CYTOLOGY ORDERABLES [facility] [place] [address] documented in this encounter Visit Diagnoses Diagnosis Abnormal mammogram Abnormal mammogram, unspecified documented in this encounter Administered Medications Inactive Administered Medications - up to 3 most recent administrations Medication Order MAR Action Action Date Dose Rate Site lidocaine (XYLOCAINE) 10 mg/mL (1 %) injection 20 mg 20 mg, Intradermal, ONCE, 1 dose, On Mon01/30/18 at 1400, Routine Given 01/30/2018 1:25 PM EST 20 mg documented in this encounter Care Teams Bar Supervisor Relationship Specialty Start Date End Date Christine Fuentes PA [address] [place] [address] PCP - General Family Medicine 01/24/17 10/08/19 documented as of this encounter
--- OUTSIDE RECORDS SUMMARY | 2023-12-26 13:17 | XMS_ITS | Encounter Summary ---
Author Organization [facility] Address [facility] [place] [address] Care Team Providers Care Attic Blower Name Role Phone Christine Fuentes Primary Care Provider +1- [phone] Encounter Details Date Type Department Care Team (Late st Contact Info) Description 01/30/2018 [place] [address] Evans Almanzar MD [facility] [place] [address] Social History Tobacco Use Types Packs/Day Years Used Date Smoking Tobacco: Former Cigarettes Q uit: 10/19/2011 Smokeless Tobacco: Never Sex and Gender Information Value Date Recorded Sex Assigned at Not on file Gender Identity Not on file Sexual Orientation Not on file documented as of this encounter Progress Notes * Evans Almanzar MD - 01/30/2018 12:56 PM [...] hours as needed for Pain.,Disp: , Rfl: ??? magnesium 250 mg Tablet, [...] mg PO at HS), Disp: , Rfl: Anticoagulation status: low dose aspirin stopped on: N/A Imaging reviewed and procedural plan approved by Dr. EVANS ALMANZAR MD documented in this encounter Plan of Treatment Not on file documented as of this encounter Visit Diagnoses Not on filedocumented in this encounter Care Teams Attic Blower Relationship Specialty Start Date End Date Christine Fuentes PA [address] [place] [address] PCP - General Family Medicine 01/24/17 10/08/19 documented as of this encounter
--- OUTSIDE RECORDS SUMMARY | 2023-12-26 13:17 | XMS_ITS | Encounter Summary ---
[place] [address] Care Team Providers Care Preschool Assistant Name Role Phone Christine Fuentes Primary Care Provider +1- [phone] Encounter Details Date Type Department Care Team (Late st Contact Info) Description 01/22/2018 10:45 AM EST Office [place] [address] Rhoda Brumfield, SPORTS NUTRITIONIST [facility] [place] [address] Breast cancer screening, high risk patient Social History Tobacco Use Types Packs/Day Years Used Date Smoking Tobacco: Former Cigarettes Q uit: 10/19/2011 Smokeless Tobacco: Never Sex and Gender Information Value Date Recorded Sex Assigned at Not on file Gender Identity Not on file Sexual Orientation Not on file documented as of this encounter Progress Notes * Rhoda Brumfield, SPORTS NUTRITIONIST - 01/22/2018 10:45 AM EST Ms. Marx [...] to discuss chemo prevention. In light of herfamily and personal history we discussed genetics appt. We will see her back in January 2019 for a mammogram and CBE. Her PCP will Perform an alternate CBE. She agrees. documented in this encounter Plan of Treatment Not on file documented as of this encounter Visit Diagnoses Diagnosis Breast cancer screening, high risk patient Screening mammogram for high-risk patient documented in this encounter Care Teams Preschool Assistant Relationship Specialty Start Date End Date Christine Fuentes PA [address] [place] [address] PCP - General Family Medicine 01/24/17 10/08/19 documented as of this encounter
--- OUTSIDE RECORDS SUMMARY | 2023-12-26 13:17 | XMS_ITS | Encounter Summary ---
Author Organization [facility] [place] [address] Care Team Providers Care Microbiology Analyst Name Role Phone Christine Fuentes Primary Care Provider +1- [phone] Reason for Visit * Auth/Cert Specialty Diagnoses [...] Expiration Date Visits Re quested Visits Authorized [id number] 1 1 Encounter Details Date Type Department Care Team (Late st Contact Info) Description 03/15/2018 2:41 PM EST - 03/15/2018 5:54 PM EST Surgery [place] [address] Marla Zepeda MD [facility] [place] [address] MASTECTOMY, SIMPLE, COMPLETE-CARITO (WRVU 15) Social History Tobacco Use Types Packs/Day Years [...] 36.9 ??C (98.4 ??F) 03/15/2018 2:32 PM ES T Respiratory Rate 16 03/15/2018 2:32 PM EST Oxygen Saturation 99% 03/15/2018 2:32 PM EST Inhaled Oxygen Concentration - - Weight 75.8 kg (167 lb) 03/15/2018 2:32 PM EST Height 162.6 cm (5' 4) 03/15/2018 2:32 PM EST Body Mass Index 28.67 03/15/2018 2:32 PM EST documented in this encounter Discharge Summaries * Aleah Vigil, REORDERING CLERK - 03/16/2018 10:42 AM EST General Surgery [...] referred back to me by Christine Fuentes forevaluation of right breast DCIS. ?? 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 She was followed by surgeon for 5 [...] Operations: 03/15/2018 Surgeon(s) and Role: * Marla Zepdea MD - Primary * Sera Weller MD - Resident-Burr Grinder * Vu Angela MD - Resident-Surgeon Tonny [...] Discharge: Final Surgical Pathology pending. Studies: NM Oatman Node Injection Breast wo Imaging (03/16): IMPRESSION Oatman node injections performed without complication. Discharge Exam: [...] to: Home VNA: Yes Name of facility: [facility] Contact information: PHONE: [phone] Discharge Conditions/Prognosis: Stable Discharge Medications: The following [...] 1:30 PM Marla Zepeda MD Leb Surg [facility] 03/30/2018 2:00 PM Avi Talbot MD Leb Hem Onc [facility] 03/30/2018 3:15 PM Magdalena Madrigal, PT PT Rehab [facility] Outpatient Services/Studies: Referral to Home Health - at DISCHARGE Order Comments: DOCUMENTATION FOR VNA SERVICES (INCLUDING THOSE PATIENTS WITH MEDICARE COVERAGE REQUIRING HOME VNA SERVICES AND/OR HOSPICE SERVICES) PATIENT'S LOCATION: Cecilia Marx [place] [facility] [id number] (home) [phone] (cell) Orchard Sprayer's Name: Self In discussion with the attending physician, it is certified that this patient is under their care and that they, or a Nurse Practitioner,Clinical Nurse specialist or Physician Clam Dredger who is working directly with them, had [...] program if appropriate. HOME HEALTH CARE AGENCY: [facility]. PHONE: [phone] FAX: [phone] Start of care: 24-48 hrs after discharge Please note that any additional orders needs or changes will need to be obtained from this patient's PCP: NNAMDI Nicole [address] / [place] [address] All VNA agencies which cover the area of patient's residence have been reviewed, either verbally stacia writing, and patient/family have chosen the home health care agency noted Question Response Notes Agency name and contact information [facility] Patient location post discharge Home What [...] than 30cc perday for 2 consecutive days. [phone] You may shower with the drains in [...] Dr. Zepeda in 2-3 weeks Please call [phone] to confirm date and time of your appointment if you do not hear from us inthe week. Call Doctor for: Worsening redness or drainage from your incision lasting longer than 5 days following surgery Any foul-smelling drainage from the incision Fevers greater than 101 degrees F Persistent nausea or vomiting (this may be related to opioid pain medications) Phone number for questions: [phone] before 5 PM weekdays [phone] after 5 PM and on weekends/holidays Future Appointments Date Time Provider Department Center 03/30/2018 1:30 PM Marla Zepeda MD Le[facility]urg [facility] 03/30/2018 2:00 PM Avi Talbot MD Leb Hem Onc [facility] 03/30/2018 3:15 PM Magdalena Madrigal, PT PT Rehab [facility] General Instructions None Acute [...] CC: NNAMDI Nicole Signed: Aleah Vigil APRN [facility] Surgical Oncology Service Team Pager #[phone] 03/16/2018 11:44 AM documented in this encounter [...] than 30cc perday for 2 consecutive days. [phone] You may shower with the drains in [...] Dr. Zepeda in 2-3 weeks Please call [phone] to confirm date and time of your appointment if you do not hear from us inthe week. Call Doctor for: Worsening redness or drainage from your incision lasting longer than 5 days following surgery Any foul-smelling drainage from the incision Fevers greater than 101 degrees F Persistent nausea or vomiting (this may be related to opioid pain medications) Phone number for questions: [phone] before 5 PM weekdays [phone] after 5 PM and on weekends/holidays Future Appointments Date Time Provider Department Center 03/30/2018 1:30 PM Marla Zepeda MD Le[facility]urg [facility] 03/30/2018 2:00 PM Avi Talbot MD Leb Hem Onc [facility] 03/30/2018 3:15 PM Magdalena Madrigal, PT PT Rehab [facility] * Attachments The following attachments cannot be sent through Care Everywhere. * Surgical Drain Care (Belarusian) documented in this encounter Medications at Time [...] - 03/16/2018 9:46 AM EST The patient/sales representative advertising has been provided a list of Home Health Agencies which serve their preferred geographic area. A letter describing our affiliations was reviewed with them and they were educated about their right to choose where referrals are placed. Patient requests referral to [facility]. PHONE: [phone] FAX: [phone]. Expected date of discharge: 03/16/18. Referral routed to the Domestic Travel Consultant for matching with agency/vendor and to provide [...] supportive. He will be staying in the [facility] overnight and will keep all pt belongings [...] Andrey Cordova at the research lab at 192 and was instructed to leave them at the charge desk in the main OR. #1 right breast tissue #2 left breast tissue. The specimen for research were taken to the desk and verified by Noemi. Pathology: #1 right breast taken out of the room to the front office assistant by Rachana Leary RN at 2009, verified with Noemi and lab informed at 2012. #2 right axillary node #3 left breast tissue out at 2057 and sent to the front office assistant at 2113 on 03/15/18, verified by Luis Womack and noemi that there were two specimens in the bag , right sentinal node and left breast tissue. Contact the patient to update him on the procedure at 2025 on 03/15/18. documented in this encounter Miscellaneous Notes * Op Note - Marla Zepeda MD - 03/16/2018 11:45 AM EST [facility] Operative Note Patient Name: Cecilia Marx : [id number] MR#: [id number] Case Date: 03/15/2018 Surgeon: Surgeon(s) and Role: * Marla Zepeda MD - Primary * Sera Weller MD - Resident-Burr Grinder * Vu Angela MD - Resident-Surgeon Tonny [...] Operative Note Patient Name: Cecilia Marx : [id number] MR#: [id number] Case Date: 03/15/2018 Surgeon: Surgeon(s) and Role: * Marla Zepeda MD - Primary * Sera Weller MD - Resident-Burr Grinder * Vu Angela MD - Resident-Surgeon Tonny [...] PM EST 03/15/2018 9:38 PM EST Narrative [facility] - 03/15/2018 9:38 PM EST Specimen requisition ordered. ??Separate Pathology report to follow Resulting Agency Comment Spec In Lab Marla Blue MD PATHOLOGY/CYTOLO GY ORDERABLES Performing Organization Address City/[facility]/[place] [address] * Specimen to Pathology (03/15/2018 9:00 PM EST) AP Specimen 03/15/2018 9:00 PM EST 03/15/2018 9:37 PM EST Narrative [facility] - 03/15/2018 9:38 PM EST Specimen requisition ordered. ??Separate Pathology report to follow Resulting Agency Comment Spec In Lab Marla Blue MD PATHOLOGY/CYTOLO GY ORDERABLES Performing Organization Address City/[facility]/ZIP Co de Phone Number [facility] [place] [address] * Specimen to Pathology (03/15/2018 8:06 PM EST) AP Specimen 03/15/2018 8:06 PM EST 03/15/2018 8:06 PM EST Narrative [facility] - 03/15/2018 8:06 PM EST Specimen requisition ordered. ??Separate Pathology report to follow Marla Blue MD PATHOLOGY/CYTOLO [place] [address] * Surgical Pathology Report (03/15/2018 8:04 PM EST) Final Diagnosis [id number] ? Location: [facility]; A The signing pathologist has (i) [...] ?? Uninvolved by tumor cells ?Number of Oatman Nodes Examined: ?4 Pathologic Stage Classification (pTNM, AJCC 8th Edition) ? Primary Tumor (pT): ?? pTis (DCIS) ? Regional Lymph Nodes (pN) ?Modifier: ??(sn): Oatman node(s) evaluated. ?Category (pN): ?? pN0 Tumor Block(s): ?? A11 CAP eCC February 2017 Agile Release ER and RI studies (performed on prior biopsy, [id number]): ER: Positive (>90%, strong) RI: Positive (50%, moderate to strong) Electronically signed by: ??Antonio BANGURA, Delon Lewis Verified: ??03/22/2018 ?Pathologist Performed at: ??-[facility] Dept. of Pathology, [place], [place] . DISCUSSION An admixture of atypical [...] is blue, deep is black. Sections/Processi ng: Cook Helper Juice sections in 22 cassettes as follows: ? [...] 2.5 cm. . SPECIMEN PROCESSING Sections/Processi ng: ??Cook Helper Juice sections in 6 cassettes as follows: ? [...] noted. Ink Designation: Deep/black; superficial/blue. Sections/Processi ng: Cook Helper Juice sections in 12 cassettes as follows: ? C1: ? Nipple ? C2: ? Base of nipple ? C3-C4: ?Cook Helper Juice upper outer quadrant ? C5-C6: ?Cook Helper Juice lower inner quadrant ? C7-C8: ?Cook Helper Juice central ? C9-C10: ?? Cook Helper Juice upper inner quadrant ? C11-C12: ??Cook Helper Juice lower inner quadrant Ischemic Time: 0.8 hours ??pps 03/22/2018 4:03 PM EST [facility] BREAST STRUCTURE / Unknown 03/15/2018 8:04 PM EST 03/15/2018 8:04 PM EST SENTINEL LYMPH NODE / Unknown 03/15/2018 8:04 PM EST 03/15/2018 8:04 PM EST BREAST STRUCTURE / Unknown 03/15/2018 8:04 PM EST 03/15/2018 8:04 PM EST Marla Blue MD PATHOLOGY/CYTOLO GY ORDERABLES [facility] [place] [id number] documented in this encounter Visit Diagnoses Not [...] PRN, Starting on Mon03/15/18 at 2220, Until Arpita 03/15/18 at 2256, [...] Procedure), Routine 181 (Given - Provider: Francisca Olmos)1815 (Patch Applied - Provider: Francisca Olmos) sodium chloride 0.9 % flush 5 mL 5 mL, Intravenous, 2 TIMES DAILY, First dose on Arpita 03/15/18 at 2345, Until Discontinued, Recovery (Recovery-Hospital Unit), Routine 2341 (Given - Provider: Mackenzie Strickland RN) 0900 (Given - Provider: Teresa Johnson RN) Continuous Medication Order 03/14/2018 03/15/2018 03/16/2018 lactated Ringers infusion 1,000 mL (CANCELED) 1,000 mL, at 100 mL/hr, Intravenous, CONTINUOUS, Starting on Arpita 03/15/18 at 1500, Until Arpita 03/15/18 at 2220, Day of Surgery (Day of Procedure) 181 (New Bag - Provider: Francisca Olmos)1930 (New Bag - Provider: Francisca Olmos)215 (Stopped - Provider: Sanjuana Loja CRNA)2207 (New Bag - Provider: Mackenzie Strickland RN) PRN Medication Order 03/14/2018 03/15/2018 03/16/2018 amitriptyline [...] Routine 2205 (Given - Provider: Mackenzie Strickland RN)2218 (Given - Provider: Mackenzie Strickland RN)2252 (Given - Provider: Mackenzie Strickland RN) ibuprofen [...] and if ineffective use promethazine, PACU Recovery 223 (Given - Provider: Mackenzie Strickland RN) ondansetron [...] (8-10), Routine 2227 (Given - Provider: Mackenzie Strickland, DAVID) oxyCODONE (ROXICODONE) immediate release tablet 5-10 mg [...] Unit) documented in this encounter Care Teams Microbiology Analyst Relationship Specialty Start Date End Date Christine Fuentes PA [address] [place] [address] PCP - General Family Medicine 01/24/17 10/08/19 documented as of this encounter
--- OUTSIDE RECORDS SUMMARY | 2023-12-26 13:18 | XMS_ITS | Encounter Summary ---
Author Organization [facility] [place] [address] Care Team Providers Care Cleaning Validation Consultant Name Role Phone Spike Sierra MD Primary Care Provider Encounter Details Date Type Department Care Team (Late st Contact Info) Description 04/08/2014 1:00 PM EST Ancillary Appointment Hematology Oncology at [address] [phone] [facility] [address] [place] [address] Social History Tobacco Use Types Packs/Day Years Used Date Smoking Tobacco: Former Cigarettes Q uit: 10/19/2011 Sex and Gender Information Value Date Recorded Sex Assigned at Not on file Gender Identity Not on file Sexual Orientation Not on file documented as of this encounter Progress Notes * Denzel Payne RD - 04/08/2014 1:10 PM EST [facility] Dietitian Follow Up Assessment Seen By: Elida Payne, MS, RD, CARDIOVASCULAR INVASIVE SPECIALIST, LD Reason for visit: Wanting to lose [...] needs: 1.5 - 2 L Food Intake: [place] she fell off the wagon in February with her birthday, super bowl, and winter. She then got the flu for 2 weeks and hasn't been moving. She is also depressed and this doesn't help. Am: cereal (Life) skim milk, raspberries, herbal tea. May have eggs and toast. Noon: can of progresso lite soup and [...] and fluctuates. The healthier she eats the better.When eating sweets/poor choices it will flare up. Food availability/purchasing, meal planning and preparation: Shares with , [employer]. He's a wonderful cook and loves to do it. Physical Activity: Jignesh treadmill, but has gotten up to 20 min. Wants to get up to 30 min. Walked M and T. 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 Level of Motivation/Readiness to Change: Contemplation/Action Nutrition Diagnosis: Weighing herself at home. Lost 13 lbs total. Her has lost 16 lbs so far. Wants to get back on track with eating and exercise (now up to 20 min/treadmill). She was logging calories for about the first , likes Dot[employer] and Store[employer]ix and the meal suggestions, but didn't feel she could follow it to the T. She likes the suggestions, but wants more of the control (i.e. Menu says salmon,but she wants left overs). Walking on the treadmill (l8 min/X 4 d), wine only on the weekends, not logging food, but trying jesi more aware. Wants to increase her exercise. We discussed the concept of food as fuel for metabolism the importance of eating small, frequent, calorically dense, protein-rich meals and snacks throughout the day not only to meet her body's needs, but also to help with weight loss. Also discussed the benefits of physical activity, 20-30 minutes, most days of the week to help withfatigue, stimulate appetite, and preserve muscle mass during [...] to cut their dietary fat intake from 30% to 20% of calories as fat -- Alcohol in moderation (one drink for women, 1-2 for males/d) -- Soy is safe to consume, yet choose foods in whole, most-complete form (i.e. Soy milk, tofu, edema me) -- Daily multivitamin use is also safe. -- Vitamin D3 levels has been shown to be low in BrCa patients, thus recommended getting levels checked (either by PCP or oncologists) supplementing 1,000 IU/d and then retesting levels, if suboptimal in 3-6 mos. The [facility] series from [facility] 2008 showed a lower risk of breast cancerrecurrence in women with 25-hydroxy Vitamin D levels [...] We reviewed workout dvds, websites with videos (Medaxion) -- Holding herself accountable. Log/Count calories (using calorieking) - will try for 1200 and if too hungry will go to 1400. -- pedometer was given on 04/08/14. She will track 3 days of steps and build from there for steps toa goal of 10,000. Educational Handouts provided: -- Healthier substitutions: A Dietitian's Guide -- Healthy holiday substitutions chart -- Smart snacking for Adults and Teens (AND) -- Stop Stress Eating -- Healthy kitchen operator (Medisse) -- pedometer Other Recommendations: Monitoring and Evaluation: Will follow up with Mrs. Marx in one week (s) to re-evaluate. documented in this encounter Plan of Treatment Not on file documented as of this encounter Visit Diagnoses Not on filedocumented in this encounter Care Teams Cleaning Validation Consultant Relationship Specialty Start Date End Date Spike Sierra MD [address] [place] [address] PCP - General 01/12/10 01/23/17 documented as of this encounter
--- OUTSIDE RECORDS SUMMARY | 2023-12-26 13:18 | XMS_ITS | Encounter Summary ---
[place] [address] Care Team Providers Care Dinkey Engine Firer/Fireman Name Role Phone Spike Sierra MD Primary Care Provider [phone] Encounter Details Date Type Department Care Team (Late st Contact Info) Description 03/09/2010 8:30 AM EST Follow[place] [address] Rad NurseSt Christianson Social History Tobacco Use Types Packs/Day Years Used Date Smoking Tobacco: Never Assessed Sex and Gender Information Value Date Recorded Sex Assigned at Not on file Gender Identity Not on file Sexual Orientation Not on file documented as of this encounter Plan of Treatment Not on file documented as of this encounter Visit Diagnoses Not on filedocumented in this encounter Care Teams Dinkey Engine Firer/Fireman Relationship Specialty Start Date End Date Spike Sierra MD [address] [place] [address] PCP - General 01/12/10 01/23/17 documented as of this encounter
--- OUTSIDE RECORDS SUMMARY | 2023-12-26 13:18 | XMS_ITS | Encounter Summary ---
[facility] [place] [address] Care Team Providers Care Beauty Artist Name Role Phone Christine Fuentes Primary Care Provider [phone] Encounter Details Date Type Department Care Team (Late st Contact Info) Description 03/10/2017 Orders Only [place] [address] Marla Brice MD [facility] [place] [address] Breast lesion Social History Tobacco Use Types Packs/Day Years Used Date Smoking Tobacco: Former Cigarettes Q uit: 10/19/2011 Sex and Gender Information Value Date Recorded Sex Assigned at Not on file Gender Identity Not on file Sexual Orientation Not on file documented as of this encounter Plan of Treatment Not on file documented as of this encounter Results * Mammo Specimen (03/30/2017 1:34 PM EST) Anatomical Region Laterality Modality Breast N/A Mammography Impressions 03/30/2017 1:40 PM EST Positive specimen x-ray as described. Results phoned to the operating surgeon intraoperatively. Narrative 03/30/2017 1:40 PM EST EXAMINATION: Specimen x-ray INDICATION: Intraoperative specimen image for adequacy of lesion and/or clip removal TECHNIQUE: A single projection specimen x-ray from the left breast is obtained superimposed on alphanumeric grid COMPARISON: This is correlated with preoperative imaging FINDINGS: The intact wire and clip are in the specimen. There are no close margins. MD NIGEL Ryder MAMMO LAUREN MIKE * Mammo Needle Localization Left (03/30/2017 9:11 AM EST) Anatomical Region Laterality Modality Breast Left Mammography Impressions 03/30/2017 9:41 AM EST Status post successful preoperative wire placement for cylinder clip associated with complex sclerosing lesion left breast. Preliminary report signed by: Asher Marrero at 03/30/2017 9:32 AM I have personally reviewed the image(s) and the residents interpretation and agree with the findings, EVANS ALMANZAR at 03/30/2017 9:41 AM Narrative 03/30/2017 9:41 AM EST Examination: NEEDLE LOCALIZATION OF ??LEFT BREAST Indication: PLEASE NEEDLE LOCALIZE LEFT BREAST SCLEROSING LESION. Technique:Informed consent was confirmed and a timeout procedure was performed per protocol. Using sterile technique and local anesthetic ??(less than 5 cc's of 1% lidocaine) a needle localization of the clip and mass ??in the deep central left breast was performed from the cranial approach with mammographic guidance. The wire was deployed. After confirming satisfactory positioning in orthogonal views the wire was deployed and a final image was obtained. There were no complications. Images were annotated on PACS for the operating surgeon. Procedural attestation: Resident: Asher Marrero I was present with the resident for the salamanca component(s) of the procedure and otherwise remained immediately available for the duration of the procedure. I attest to having personally viewed the images/test and approve the above interpretation. MD NIGEL Ryder documented in this encounter Visit Diagnoses Diagnosis Breast lesion Unspecified breast disorder Breast lesion Unspecified breast disorder Breast lesion Unspecified breast disorder documented in this encounter Care Teams Beauty Artist Relationship Specialty Start Date End Date Christine Fuentes PA [address] [place] [address] PCP - General Family Medicine 01/24/17 10/08/19 documented as of this encounter
--- OUTSIDE RECORDS SUMMARY | 2023-12-26 13:18 | XMS_ITS | Encounter Summary ---
[place] [address] Care Team Providers Care Eeg Technician Name Role Phone Spike Sierra MD Primary Care Provider [phone] Encounter Details Date Type Department Care Team (Late st Contact Info) Description 03/09/2010 9:00 AM EST Initial consult Hematology Oncology at [address] [phone] Social History Tobacco Use Types Packs/Day Years Used Date Smoking Tobacco: Never Assessed Sex and Gender Information Value Date Recorded Sex Assigned at Not on file Gender Identity Not on file Sexual Orientation Not on file documented as of this encounter Plan of Treatment Not on file documented as of this encounter Visit Diagnoses Not on filedocumented in this encounter Care Teams Eeg Technician Relationship Specialty Start Date End Date Spike Sierra MD [address] [place] [address] PCP - General 01/12/10 01/23/17 documented as of this encounter
--- OUTSIDE RECORDS SUMMARY | 2023-12-26 13:18 | XMS_ITS | Encounter Summary ---
Author Organization [facility] Address [facility] [place] [address] Care Team Providers Care Web Content Producer Name Role Phone Christine Fuentes Primary Care Provider [phone] Encounter Details Date Type Department Care Team (Late st Contact Info) Description 03/08/2017 10:15 AM EST Office Visit Hematology [place] [address] Marla Brice MD [facility] [place] [address] Sclerosing adenosis of left breast Social History Tobacco Use Types Packs/Day [...] 36.8 ??C (98.2 ??F) 03/08/2017 10:[address] Respiratory Rate 18 03/08/2017 10:12 AM EST Oxygen Saturation 97% 03/08/2017 10:12 AM EST Inhaled Oxygen Concentration - - Weight 77.6 kg (171 lb) 03/08/2017 10:12 AM EST Height 162 cm (5' 3.78) 03/08/2017 10:12 AM EST Body Mass Index 29.55 03/08/2017 10:12 AM EST documented in this encounter Progress Notes * Marla Brice MD - 03/08/2017 10:15 AM EST Surgical Oncology New Visit Note Reason for Visit: Cecilia Marx is a 61 y.o. female was referred by Christine Fuentes for evaluation of left breast sclerosing lesion. 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 She was followed by surgeon for 5 [...] wine around Elisabet time due to depression. Reports a left [...] Right 2010 DCIS s/p PM and RT Current Outpatient [...] 1 tablet by mouth twice a day, Disp: , Rfl: 0 ??? escitalopram (LEXAPRO) 10 mg [...] vs surveillance and let me know. If shewants excsion, plant for left breast wide excision with needle localizaton. Same day surgery. Marla Brice MD Surgical Oncology documented in this encounter Plan of Treatment Not on file documented as of this encounter Visit Diagnoses Diagnosis Sclerosing adenosis of left breast documented in this encounter Care Teams Web Content Producer Relationship Specialty Start Date End Date Christine Fuentes PA [address] [place] [address] PCP - General Family Medicine 01/24/17 10/08/19 documented as of this encounter
--- OUTSIDE RECORDS SUMMARY | 2023-12-26 13:18 | XMS_ITS | Encounter Summary ---
Author Organization [facility] Address [facility] [place] [address] Care Team Providers Care Home Care Associate Name Role Phone Spike Sierra MD Primary Care Provider [phone] Encounter Details Date Type Department Care Team (Latest Contact Info) Description 01/06/2017 - 01/06/2017 12:04 AM [facility] Hospital Encounter Radiology Library at [facility] [place] [address] Spike Nicolas MD [facility] [place] [address] Discharge Disposition: Home Social History Tobacco Use [...] tablet Take 81 mg by mouth daily. escitalopram (LEXAPRO) 10 mg Tablet 12/26/2016 03/16/2018 levothyroxine (SYNTHROID) 75 mcg Tablet Take 75 mcg by mouth daily. 03/16/2018 Cholecalciferol, Vitamin D3, 2,000 unit Capsule Take by mouth. amitriptyline (ELAVIL) 10 mg tablet 30mg, PO, QHS 05/04/2010 03/16/2018 escitalopram (LEXAPRO) 10 mg tablet 05/04/2010 03/08/2017 alendronate (FOSAMAX) 70 mg tablet 05/04/2010 03/08/2017 documented as of this encounter Plan of Treatment Not on file documented as of this encounter Procedures Procedure Name Priority Date/Time Associated Diagnosis Comments FILM LIBRARY STORAGE ONLY MAMMO Routine 01/06/2017 12:00 AM EST documented in this encounter Results * Film Library- Storage Only Mammo (01/06/2017 12:00 AM EST) Narrative [facility] - 01/10/2017 4:30 PM EST This exam is for storage only and is auto-finalizing. Spike Nicolas MD IMG FILM LIBRARY ORD ERABLES Performing Organization Address City/State/[facility] Co de Phone Number [place], [place] documented in this encounter Visit Diagnoses Not on filedocumented in this encounter Care Teams Home Care Associate Relationship Specialty Start Date End Date Spike Sierra MD [address] [place] [address] PCP - General 01/12/10 01/23/17 documented as of this encounter
--- OUTSIDE RECORDS SUMMARY | 2023-12-26 13:18 | XMS_ITS | Encounter Summary ---
Author Organization [facility] [place] [address] Care Team Providers Care Melangeur Operator Name Role Phone Spike Sierra MD Primary Care Provider Encounter Details Date Type Department Care Team (Latest Contact Info) Description 11/28/2011 - 11/28/2011 11:59 PM EDT Hospital Encounter Radiology Library at [facility] [place] [address] Spike Nicolas MD [facility] [place] [address] Screening breast examination Discharge Disposition: Home Social History Tobacco Use Types Packs/Day Years Used Date Smoking Tobacco: Never Assessed Sex and Gender Information Value Date Recorded Sex Assigned at Not on file Gender Identity Not on file Sexual Orientation Not on file documented as of this encounter Medications at Time of Discharge Medication Sig Dispensed Refills Start Date End Date Estradiol (VAGIFEM) [address] 10 mcg vaginally twice a week. 12/19/2011 CIS Free Text Med - Aspirin 05/04/2010 12/13/2012 amitriptyline (ELAVIL) 10 mg tablet 30mg, PO, QHS 05/04/2010 03/16/2018 levothyroxine (SYNTHROID) 100 mcg tablet 05/04/2010 12/26/2013 escitalopram (LEXAPRO) 10 mg tablet 05/04/2010 03/08/2017 SUMAtriptan (IMITREX) 100 mg tablet 05/04/2010 12/13/2012 alendronate (FOSAMAX) 70 mg tablet 05/04/2010 03/08/2017 documented as of this encounter Plan of Treatment Not on file documented as of this encounter Procedures Procedure Name Priority Date/Time Associated Diagnosis Comments FILM LIBRARY STORAGE ONLY MAMMO Routine 11/28/2011 12:00 AM EDT Screening breast examination documented in this encounter Results * Film Library- Storage Only Mammo (11/28/2011 12:00 AM EDT) Narrative [facility] - 01/11/2017 4:30 PM EST This exam is for storage only and is auto-finalizing. Spike Nicolas MD G FILM LIBRARY ORD ERABLES [place], [place] documented in this encounter Visit Diagnoses Diagnosis Screening breast examination Other screening breast examination documented in this encounter Care Teams Melangeur Operator Relationship Specialty Start Date End Date Spike Sierra MD [address] [place] [address] PCP - General 01/12/10 01/23/17 documented as of this encounter
--- OUTSIDE RECORDS SUMMARY | 2023-12-26 13:18 | XMS_ITS | Encounter Summary ---
Author Organization [facility] [place] [address] Care Team Providers Care Race And Sports Book Writer Name Role Phone Christine Fuentes Primary Care Provider [phone] Encounter Details Date Type Department Care Team (Late st Contact Info) Description 03/30/2017 8:41 AM EST - 03/30/2017 9:23 AM EST Hospital En[place] [address] Marla Brice MD [facility] [place] [address] Breast lesion Discharge Disposition: Home Social History Tobacco Use [...] Sustained Release 12 hr Take by mouth. fish oil-omega-3 fatty acids 1,000 mg Capsule Take 2 g by mouth daily. 03/16/2018 ibuprofen (ADVIL;MOTRIN) 200 mg Tablet Take 200 mg by mouth every 6 hours as needed for Pain. 03/16/2018 magnesium 250 mg Tablet Take by mouth. amoxicillin-clavulanate (AUGMENTIN) 500-125 mg Tablet take 1 tablet by mouth twice a day 0 02/28/2017 04/20/2017 escitalopram (LEXAPRO) 10 mg Tablet 12/26/2016 03/16/2018 levothyroxine (SYNTHROID) 75 mcg Tablet Take 75 mcg by mouth daily. 03/16/2018 Cholecalciferol, Vitamin D3, 2,000 unit Capsule Take by mouth. amitriptyline (ELAVIL) 10 mg tablet 30mg, PO, QHS 05/04/2010 03/16/2018 documented as of this encounter Progress Notes * Asher Marrero, DO - 03/30/2017 7:41 AM [...] and procedural plan approved by Dr. ASHER MARRERO, DO documented in this encounter Plan of Treatment Not on file documented as of this encounter Procedures Procedure Name Priority Date/Time Associated Diagnosis Comments MAMMO NEEDLE LOCALIZATION LEFT Routine 03/30/2017 9:11 AM EST Breast lesion documented in this encounter Results * Mammo Needle Localization Left (03/30/2017 9:11 [...] the images/test and approve the above interpretation. Marla Blue MD [facility] MAMMO ORDERA BLES documented in this encounter Visit Diagnoses Diagnosis Breast lesion Unspecified breast disorder documented in this encounter Administered Medications Inactive Administered Medications - up to 3 most recent administrations Medication Order MAR Action Action Date Dose Rate Site lidocaine (XYLOCAINE) 10 mg/mL (1 %) injection 10 mg 10 mg, Intradermal, ONCE, 1 dose, On Arpita 03/30/17 at 0915, Routine Given 03/30/2017 9:04 AM EST 10 mg documented in this encounter Care Teams Race And Sports Book Writer Relationship Specialty Start Date End Date Christine Fuentes PA [address] [place] [address] PCP - General Family Medicine 01/24/17 10/08/19 documented as of this encounter
--- OUTSIDE RECORDS SUMMARY | 2023-12-26 13:18 | XMS_ITS | Encounter Summary ---
Author Organization [facility] Address [facility] [place] [address] Care Team Providers Care After School Caregiver Name Role Phone Spike Sierra MD Primary Care Provider [phone] Encounter Details Date Type Department Care Team (Latest Contact Info) Description 12/04/2012 - 12/04/2012 11:59 PM EDT Hospital Encounter Radiology Library at [facility] [place] [address] Spike Nicolas MD [facility] [place] [address] Screening breast examination Discharge Disposition: Home Social [...] Date CIS Free Text Med - Aspirin 05/04/2010 [...] Comments FILM LIBRARY STORAGE ONLY MAMMO Routine 12/04/2012 12:00 AM EDT Screening breast examination documented in this encounter Results * Film Library- Storage Only Mammo (12/04/2012 12:00 AM EDT) Narrative [facility] - 01/11/2017 4:43 PM EST This exam is for storage only and is auto-finalizing. Spike Nicolas MD IMG FILM LIBRARY ORD ERABLES [place], [place] documented in this encounter Visit Diagnoses Diagnosis Screening breast examination Other screening breast examination documented in this encounter Care Teams After School Caregiver Relationship Specialty Start Date End Date Spike Sierra MD [address] [place] [address] PCP - General 01/12/10 01/23/17 documented as of this encounter
--- OUTSIDE RECORDS SUMMARY | 2023-12-26 13:18 | XMS_ITS | Encounter Summary ---
[place] [address] Care Team Providers Care Crystalizer Operator Name Role Phone Christine Fuentes Primary Care Provider +1- [phone] Reason for Visit * Auth/Cert Specialty Diagnoses / Procedures Referred By Cherie abdul Referred To Contact Diagnoses LEFT BREAST COMPLEX SCLEROSING LESION Procedures PRO EXCISE BREAST LES W XRAY MARKER EXCISION LESION, BREAST W/ PREOP.MARKER (NEEDLE LOC.) (WRVU 6.69) MODIFIER WITH NEEDLE LOC., LESION #1 Referral ID Status Reason Start Date Expiration Date Visits Re quested Visits Authorized [id number] 1 1 Encounter Details Date Type Department Care Team (Late st Contact Info) Description 03/30/2017 11:40 AM EST - 03/30/2017 1:17 PM EST Surgery [facility] [place] [address] Savana Zepeda MD [facility] [place] [address] EXCISION LESION, BREAST W/ PREOP.MARKER (NEEDLE LOC.) (WRVU 6.69) Social History Tobacco Use Types Packs/Day Years [...] 36.9 ??C (98.4 ??F) 03/30/2017 9:57 AM ES T Respiratory Rate 18 03/30/2017 9:57 AM EST Oxygen Saturation 98% 03/30/2017 9:57 AM EST Inhaled Oxygen Concentration - - Weight 77.1 kg (170 lb) 03/30/2017 9:57 AM EST Height 161.3 cm (5' 3.5) 03/30/2017 9:57 AM EST Body Mass Index 29.64 03/30/2017 9:57 AM EST documented in this encounter Discharge Instructions * Discharge Instructions* Vahid Jurado RN - 03/30/2017 9:53 AM EST [...] beverages or make any legal decisions after havinggeneral anesthesia. The medications given change your reaction [...] please ask the surgeons office what they recommend for prevention of this. Some non-pharmaceutical means of constipation prevention include increasing intake of fluids, eating more fruits and vegetables as well as fruit juices. If you are uncomfortable and/or unable to urinate within 8 hours of discharge and it is before 5 pm, call your physician. If it is after 5pm go to the closest emergency room or call the hospital chain forming machine operator at [phone] and ask for physician coconut jelly roller covering for your physician. Questions or problems after 5pm or on a weekend: Call the [facility] chain forming machine operator at and ask for the physician coconut jelly roller covering for your doctor. * Patient Instructions* Iris Macdonald MD - 03/30/2017 1:54 PM EST Instructions [...] remove dressing/surgibra and leaveincision open to air. If there are pieces of tape directly on the skin (steri-strips), please leave them on until they fall off on their own. You may trim them back as they peel up, or just remove them after 2 weeks. Or you may have surgical glue on your incision which [...] 04/13/2017 10:45 AM Rhoda Brumfield APRN [facility] Call Doctor for: Worsening redness or drainage from your incision lasting longer than 5 days following surgery Any foul-smelling drainage from the incision Fevers greater than 101 degrees F Persistent nausea or vomiting (this may be related to opioid pain medications) Phone number for questions: [phone] before 5 PM weekdays [phone] after 5 PM and on weekends/holidays documented [...] 05/04/2010 03/16/2018 documented as of this encounter H&P Notes * Iris Macdonald MD - 03/30/2017 12:24 PM EST Surgery Interval H&P ID: Cecilia Marx is a 62 y.o. female with a history of 0.8cm spiculated mass of LEFT breast that biopsy showed intraductal papilloma but was incompletely sampled who is here for left breast partialmastectomy with needle localization. No changes in health [...] MD documented in this encounter Miscellaneous Notes * Op Note - Savana Zepeda MD - 03/30/2017 1:48 PM EST [facility] [place] Patient Name: Cecilia Marx : [id number] MR#: [id number] Case Date: 03/30/2017 Surgeon: Surgeon(s) and Role: [...] details pertinent to this patient.) Operative Indications: Ceiclia Marx is a 61 y.o. female with [...] been confirmed, attention was turned to the leftbreast. Lidocaine 1% and Marcaine 0.5% mixed 1:1 was injected into the area and an incision was made at 12 oclock radially. The wire was brought into the wound and a core of tissue circumferential was widely excised. The wire had fallen out of the specimen while removing it from the breast. The tissue was inked on the anatomic margins and sent to Radiology where the lesion and clip were confirmedto be in the surgical specimen. The wound [...] me as correct at the end of the case. Infection Bundle used? N/A Attestation: Case Date: 03/30/2017 I was present and I participated during the entire procedure (does not need to include opening and closing). SAVANA ZEPEDA MD 03/30/2017 * Brief Op Note - Savana Zepeda MD - 03/30/2017 1:46 PM EST Brief Operative Note Patient Name: Cecilia Marx : [id number] MR#: [id number] Case Date: 03/30/2017 Surgeon: Surgeon(s) and Role: [...] Associated Diagnosis Comments SPECIMEN TO PATHOLOGY Routine 03/30/2017 1:24 PM EST SURGICAL PATHOLOGY REPORT Routine 03/30/2017 1:22 PM EST MODIFIER WITH NEEDLE LOC., LESION #1 03/30/2017 12:45 PM EST LEFT BREAST COMPLEX SCLEROSING LESION EXCISION LESION, BREAST W/ PREOP.MARKER (NEEDLE LOC.) (WRVU 6.69) 03/30/2017 12:45 PM EST LEFT BREAST COMPLEX SCLEROSING LESION documented in this encounter Results * Specimen to Pathology (03/30/2017 1:24 PM EST) AP Specimen 03/30/2017 1:24 PM EST 03/30/2017 2:20 PM EST Narrative [facility] - 03/30/2017 2:20 PM EST Specimen requisition ordered. ??Separate Pathology report to follow Resulting Agency Comment Spec In Lab Savana Blue MD PATHOLOGY/CYTOLO GY ORDERABLES Performing Organization Address City/State/[facility] Co de Phone Number [facility] [place] [address] * Surgical Pathology Report (03/30/2017 1:22 PM EST) Final Diagnosis [id number] ? Location: [facility] The signing pathologist has (i) examined the relevant preparation(s) for the specimen(s) and (ii) rendered or confirmed the diagnosis(es). . ?Surgical Pathology DIAGNOSIS Left breast, excision: 1. Atypical [...] Delon Lewis Verified: ??04/05/2017 ?Pathologist Performed at: ??[place] [place], [place], [place] DISCUSSION Two separate foci of atypical ductal hyperplasia are seen - one adjacent to the previously biopsied complex sclerosing lesion (tissue slice XIV) and one in tissue slices VII/VIII. ADDITIONAL STUDIES Immunohistochemistry Studies: Formalin-fixed, paraffin-embedded tissue [...] diagnostic tests. Block ? Antibody ?Result (Positive/Negative) A2 ? E-cadherin ? Negative in focal ALH A9 ? E-cadherin ? Positive CLINICAL INFORMATION Specimen Submitted: A - Left breast lesion Clinical History: Left breast complex sclerosing lesion Clinical Diagnosis: Same SPECIMEN PROCESSING A - ??Labeled/Fixative: Left breast lesion, fresh. SPECIMEN DESCRIPTION Resection Specimen: Intact, inked and oriented partial mastectomy specimen. Qty/Size/Weight: Single, 5.2 cm (cranial to caudal) x 3.3 cm (medial to lateral) x 1.7 cm (superficial to deep), 18 grams. Radiograph: The intact wire and clip are in the specimen. . SPECIMEN PROCESSING Specimen Description: According to the established protocol the ink designations are red (medial), yellow (lateral), orange (cranial), green (caudal), black (deep) and blue (superficial). Tissue Sections: The specimen is serially sectioned perpendicular to the long axis from cranial-orange to caudal-green into XV slices, each averaging 0.35 cm in thickness. LESION Description: Mass. Size: 0.8 x 0.5 x 0.3 cm. Color: Yellow-white. Consistency: Firm. Location: Slice XIII-XIV. Nearest Margin: 0.5 cm to the caudal margin. Other Margins: 0.6 cm to the deep margin, 1.0 cm to the lateral margin, 1.7 cm to the medial margin, 1.8 cm to the superficial margin, 4.2 cm to the cranial margin. OTHER Parenchyma: Focally hemorrhagic white fibrous tissue admixed with soft yellow lobulated adipose tissue. The entire lesion and entire area of hemorrhagic fibrous tissue is submitted. Wire/Clip: The needle localization wire enters the superficial-medial aspect of the specimen, with the tip cranial. The cylinder clip is within slice XII. SECTIONS/PROCESSING: (1) entry level account representative perpendicular slice I, orange-cranial margin; (2) entry level account representative slice VIII; (3) entry level account representative slice IX; (4) entry level account representative slice X; (5) entry level account representative slice XI; (6) entry level account representative slice XII, with cylinder clip; (7) slice XIII, with lesion; (8) slice XIV, with lesion; (9) entry level account representative perpendicular slice XV. (R9) Ischemic Time: 85 minutes ??chinyere Additional sections: (10) remaining slice VIII; (11) slice III; (12) fibrous tissue central slice V; (13-14) bisected slice VII. (R14) chinyere 04/05/2017 9:19 AM EST [facility] BREAST STRUCTURE / Unknown 03/30/2017 1:22 PM EST 03/30/2017 1:22 PM EST Savana Blue MD PATHOLOGY/CYTOLO GY ORDERABLES Performing Organization Address City/State/[facility] Co de Phone Number [facility] [place] [address] documented in this encounter Visit Diagnoses Not on filedocumented in this encounter Administered Medications Inactive Administered Medications - up to 3 most recent administrations Medication Order MAR Action Action Date Dose Rate Site BUpivacaine (PF) (MARCAINE) 0.5 % (5 mg/mL) injection ONCE PRN, Starting on Arpita 03/30/17 at 1304, Until Arpita 03/30/17 at 1702, Intra-Operative (Intra-Procedure), Routine Given 03/30/2017 1:45 PM EST 3.5 mLs 19- Surgical Site Given 03/30/2017 1:04 PM EST 10 mLs 19 - Surgical Site lactated Ringers infusion 1,000 mL 1,000 mL, at 100 mL/hr, Intravenous, CONTINUOUS, Starting on Arpita 03/30/17 at 1030, Until Arpita 03/30/17 at 1702, Day of Surgery (Day of Procedure) New Bag 03/30/2017 1:51 PM EST New Bag 03/30/2017 10:23 AM EST 1,000 mLs 100 mL/hr New Bag 03/30/2017 10:14 AM EST 1,000 mLs 100 mL/hr lidocaine (XYLOCAINE) 10 mg/mL (1 %) injection 3 mg 3 mg (0.3 mL), Subcutaneous, ONCE PRN, 1 dose, Starting on Arpita 03/30/17 at 1002, Until Arpita 03/30/17 at 1702, for discomfort with PIV insertion, Day of Surgery (Day of Procedure), Routine lidocaine (XYLOCAINE) 10 mg/mL (1 %) injection ONCE PRN, Starting on Arpita 03/30/17 at 1304, Until Arpita 03/30/17 at 1702, Intra-Operative (Intra-Procedure), Routine Given 03/30/2017 1:45 PM EST 3.5 mLs 19- Surgical Site Given 03/30/2017 1:04 PM EST 10 mLs 19 - Surgical Site sodium chloride 0.9 % flush 5-20 mL 5-20 mL, Intravenous, EVERY 1 MIN PRN, Starting on Arpita 03/30/17 at 1002, Until Arpita 03/30/17 at 1702, flush, Flush pertains to all indwelling lines. Flush per protocol found in the job aid using the link provided on this medication record., Day of Surgery (Day of Procedure), Routine documented in this encounter Active and Recently Administered Medications Times are shown in EST. Scheduled Medication Order 03/28/2017 03/29/2017 03/30/2017 ceFAZolin (ANCEF) 2g in dextrose 5% 100 mL (COMPLETED) 2 g, Intravenous, WEATHERIZATION SPECIALIST TO O.R., 1 dose, On Arpita 03/30/17 at 1300, Administer over 30 Minutes, Indication for (Active or Suspected): Prophylaxis 1246 (Given - Provid er: Chapis Santoro CRNA) Continuous Medication Order 03/28/2017 03/29/2017 03/30/2017 lactated Ringers infusion 1,000 mL 1,000 mL, at 100 mL/hr, Intravenous, CONTINUOUS, Starting on Arpita 2/8/18 at 1030, Until Arpita 18 at 1702, Day of Surgery (Day of Procedure) 1014 (New Bag - Prov ider: Vahid Jurado RN)1023 (New Bag - Provider: Vahid Jurado RN)1306 (Anesthesia Volume Adjustment - Provider: Chapis Santoro CRNA)1351 (New Bag - Provider: Chapis Santoro CRNA) PRN Medication Order 03/28/2017 03/29/2017 03/30/2017 BUpivacaine (PF) (MARCAINE) 0.5 % (5 mg/mL) injection (CANCELED) ONCE PRN, Starting on Arpita 18 at 1304, Until Arpita 18 at 1702, Intra-Operative (Intra-Procedure), Routine 1304 (Given - Provid er: Savana Blue MD - Comment: 1% lidocaine mixed 1:1 with 0.5% bupivacaine, Total of 20 ml's given at this time.)1345 (Given - Provider: Savana Blue MD) lidocaine (XYLOCAINE) 10 mg/mL (1 %) injection 3 mg 3 mg (0.3 mL), Subcutaneous, ONCE PRN, 1 dose, Starting on Arpita 18 at 1002, Until Arpita 18 at 1702, for discomfort with PIV insertion, Day of Surgery (Day of Procedure), Routine lidocaine (XYLOCAINE) 10 mg/mL (1 %) injection (CANCELED) ONCE PRN, Starting on Arpita 2/18 at 1304, Until Arpita 03/30/18 at 1702, Intra-Operative (Intra-Procedure), Routine 1304 (Given - Provid er: Savana Blue MD - Comment: 1% lidocaine mixed 1:1 with 0.5% bupivacaine, Total of 20 ml's given at this time.)1345 (Given - Provider: Savana Blue MD) sodium chloride 0.9 % flush 5-20 mL 5-20 mL, Intravenous, EVERY 1 MIN PRN, Starting on Arpita 218 at 1002, Until Arpita 2/18 at 1702, flush, Flush pertains to all indwelling lines. Flush per protocol found in the job aid using the link provided on this medication record., Day of Surgery (Day of Procedure), Routine documented in this encounter Care Teams Crystalizer Operator Relationship Specialty Start Date End Date Christine Fuentes PA [address] [place] [address] PCP - General Family Medicine 01/24/17 10/08/19 documented as of this encounter
--- OUTSIDE RECORDS SUMMARY | 2023-12-26 13:18 | XMS_ITS | Encounter Summary ---
Author Organization [facility] [place] [address] Care Team Providers Care Inside Sales Engineer Name Role Phone Spike Sierra MD Primary Care Provider Encounter Details Date Type Department Care Team (Latest Contact Info) Description 12/24/2013 - 12/24/2013 11:59 PM [facility] Hospital Encounter Radiology Library at [facility] [place] [address] Spike Nicolas MD [facility] DI[facility]NO[facility] [address] Screening breast examination Discharge Disposition: Home Social [...] tablet Take 81 mg by mouth daily. amitriptyline (ELAVIL) 10 mg tablet 30mg, PO, QHS 05/04/2010 03/16/2018 levothyroxine (SYNTHROID) 100 mcg tablet 05/04/2010 12/26/2013 escitalopram (LEXAPRO) 10 mg tablet 05/04/2010 03/08/2017 alendronate (FOSAMAX) 70 mg tablet 05/04/2010 03/08/2017 documented as of this encounter Plan of Treatment Not on file documented as of this encounter Procedures Procedure Name Priority Date/Time Associated Diagnosis Comments FILM LIBRARY STORAGE ONLY MAMMO Routine 12/24/2013 12:00 AM EST Screening breast examination documented in this encounter Results * Film Library- Storage Only Mammo (12/24/2013 12:00 AM EST) Narrative RAD - 01/11/2017 4:45 PM EST This exam is for storage only and is auto-finalizing. Spike Nicolas MD G FILM LIBRARY ORD ERABLES [place], [place] documented in this encounter Visit Diagnoses Diagnosis Screening breast examination Other screening breast examination documented in this encounter Care Teams Inside Sales Engineer Relationship Specialty Start Date End Date Spike Sierra MD [address] [place] [address] PCP - General 01/12/10 01/23/17 documented as of this encounter
--- OUTSIDE RECORDS SUMMARY | 2023-12-26 13:18 | XMS_ITS | Encounter Summary ---
Author Organization [facility] [place] [address] Care Team Providers Care Social Media Manager Name Role Phone Christine Fuentes Primary Care Provider +1- [phone] Reason for Visit * Auth/Cert Specialty Diagnoses / Procedures Referred By Cherie abdul Referred To Contact Diagnoses LEFT BREAST COMPLEX SCLEROSING LESION Procedures PRO EXCISE BREAST LES W XRAY MARKER EXCISION LESION, BREAST W/ PREOP.MARKER (NEEDLE LOC.) (WRVU 6.69) MODIFIER WITH NEEDLE LOC., LESION #1 Referral ID Status Reason Start Date Expiration Date Visits Re quested Visits Authorized [id number] 1 1 Encounter Details Date Type Department Care Team (Late st Contact Info) Description 03/30/2017 12:44 PM EST Anesthesia Event [place] [address] Joey Pham MD [facility] [place] [address] Vahid Osorio MD [facility] [place] [address] Anesthesia Record Procedure Summary Procedure Name Responsible Anesthesiologist Anesthesia Start Time Anesthesia Stop Time EXCISION LESION, BREAST W/ PREOP.MARKER (NEEDLE LOC.) (WRVU 6.69) (Left: Axilla) Joey Pham MD 03/30/17 1244 03/30/17 1408 Events Date Time Event Comment 03/30/2017 1107 1244 Start 1245 AN Verify 1245 An Start Data 1249 Anesthesia Ready 1305 Skin Incision Local infiltra rajiv by surgeon prior to incision 1401 an stop data 1407 Recovery or ICU Handoff Rivka ent care was transferred to the destination unit staff after review of the patient's medical history, current anesthetic/surgical status and plan, according to the Provider Handoff Checklist. 1408 Stop Meds Name Total Midazolam 2 mg fentaNYL 100 mcg Propofol INF 589.82 mg ceFAZolin (ANCEF) 2g in dextrose 5% 100 mL 2 g Dexmedetomidine 16 mcg PHENYLephrine 320 mcg lactated Ringers infusion 1,000 mL 1,000 mL * Agents Name O2 Air N2O O2 Auxiliary Flowmeter 1 * Blood No blood administrations on file. Lines, Drains, and Airways Type Details Placement Removal (RETIRED) Peripheral IV Line - Single Lumen 03/30/17; 1011; median cubital vein (antecubital fossa), right; 20 gauge; intradermal injection, tolerated well; 03/30/17; 1450 03/30/17 1011 by Vahid Jurado 03/30/17 1450 by Claudy Hodge RN Incision 03/30/17; 1304; sarah st; 10/18/21 (LDA cleanup utility RA#[id number]); 1715 (LDA cleanup utility RA#[id number]) 03/30/17 1304 by Francesca Mead RN 10/18/21 1715 by Glen Muro documented in this encounter Social History Tobacco Use Types Packs/Day Years Used Date Smoking Tobacco: Former Cigarettes Q uit: 10/19/2011 Smokeless Tobacco: Never Sex and Gender Information Value Date Recorded Sex Assigned at Not on file Gender Identity Not on file Sexual Orientation Not on file documented as of this encounter OR Notes * Anesthesia Postprocedure Evaluation - Joey Pham MD - 03/30/2017 2:19 PM EST [facility] [place] Department of Anesthesiology Post-procedure Note Patient: Cecilia Marx Procedure Summary Date Anesthesia Start Anesthesia Stop Room / Location 03/30/17 1244 1408 [facility] OR / [facility] Procedure Diagnosis Surgeon Responsible Provider EXCISION LESION, BREAST W/ PREOP.MARKER (NEEDLE LOC.) (WRVU 6.69) (Left Axilla); MODIFIER WITH NEEDLE LOC., LESION #1 (Left Breast) (LEFT BREAST COMPLEX SCLEROSING LESION) Marla Brice MD Nguyen, Tung T, MD All Anesthesia Providers: Anesthesiologist: Joey Pham MD CAR MANAGER: Chapis Santoro CRNA Most Recent Vitals: 03/30/17 1404 BP: 115/79 Pulse: 89 Resp: 16 Temp: 36.8 ??C (98.2 ??F) SpO2: 93% Pain 0 (03/30/17 1404) Patient Location: PACU/[facility] Level of Consciousness: Awake and Alert Pain Management: Satisfactory Analgesia PONV: None Cardiovascular Status: At Baseline Respiratory Status: At Baseline Postoperative Fluid Status: Intravascular EUvolemia Possible Anesthetic Complications: NONE apparent at time of evaluation Final Primary Anesthesia Type: MAC (The anesthetic type performed was the same as planned.) Comments: * Anesthesia Preprocedure Evaluation - Joey Pham MD [...] with patient and spouse. Plan discussed with CAR MANAGER. PAT Staff Note Attending NOTE Brief HPI: [...] Site ceFAZolin (ANCEF) 2g in dextrose 5% 100 mL 2 g, Intravenous, SCREW MACHINE SETTER TO O.R., 1 dose, On Arpita 03/30/17 at 1300, Administer over 30 Minutes, Indication for (Active or Suspected): Prophylaxis Given 03/30/2017 12:46 PM EST 2 g dexmedetomidine (PRECEDEX) injection PRN, Starting on Arpita 03/30/17 at 1246, Until Arpita 03/30/17 at 1412, Anesthesia Intra-op, Routine Given 03/30/2017 1:01 PM EST 4 mcg Given 03/30/2017 12:58 PM EST 4 mcg Given 03/30/2017 12:51 PM EST 4 mcg fentaNYL 50 mcg/mL multi-dose injection PRN, Starting on Arpita 03/30/17 at 1246, Until Arpita 03/30/17 at 1412, Pain, Anesthesia Intra-op, Routine Given 03/30/2017 1:01 PM EST 25 mcg Given 03/30/2017 12:58 PM EST 25 mcg [...] mL/hr midazolam (PF) (VERSED) 1 mg/mL multi-dose injection PRN, Starting on Aprita 03/30/17 at 1254, Until Arpita 03/30/17 at 1412, Sleep, Anesthesia Intra-op, Routine Given 03/30/2017 12:54 PM EST 2 mg PHENYLephrine in NS (PF) (ALAYNA-SYNEPHRINE) 0.8 mg/10 mL (80 mcg/mL) multi-dose injection Syrg PRN, Starting on Arpita 03/30/17 at 1313, Until Arpita 03/30/17 at 1412, Anesthesia Intra-op, Routine Given 03/30/2017 1:41 PM EST 160 mcg Given 03/30/2017 1:13 PM EST 160 mcg propofol (DIPRIVAN) infusion CONTINUOUS PRN, Starting on Arpita 03/30/17 at 1247, Until Arpita 03/30/17 at 1412, Anesthesia Intra-op, Routine Rate/Dose Change 03/30/2017 1:36 PM EST 75 mcg/kg/min 34.7 mL/hr Rate/Dose Change 03/30/2017 1:16 PM EST 100 mcg/kg/min 46. 3 mL/hr Rate/Dose Change 03/30/2017 1:07 PM EST 125 mcg/kg/min 57. 8 mL/hr documented in this encounter Care Teams Social Media Manager Relationship Specialty Start Date End Date Christine Fuentes PA [address] [place] [address] PCP - General Family Medicine 01/24/17 10/08/19 documented as of this encounter
--- OUTSIDE RECORDS SUMMARY | 2023-12-26 13:18 | XMS_ITS | Encounter Summary ---
Author Organization [facility] Address [facility] [place] [address] Care Team Providers Care Junior Account Manager Name Role Phone Christine Fuentes Primary Care Provider [phone]- [phone] Encounter Details Date Type Department Care Team (Latest Contact Info) Description 02/01/2017 12:40 PM EST - 02/01/2017 11:59 PM EST Hospital [place] [address] Anita Valentine MD [facility] [place] [address] Abnormal finding on breast imaging Discharge Disposition: [...] 05/04/2010 03/08/2017 documented as of this encounter Progress Notes * Britney Swanson MD - 02/01/2017 11:59 PM [...] Priority Date/Time Associated Diagnosis Comments SURGICAL PATHOLOGY REPORT Routine 02/01/2017 1:46 PM EST MAMMO BREAST US LIMITED LEFT Routine 02/01/2017 1:09 PM EST Abnormal finding on breast imaging documented in this encounter Results * Surgical Pathology Report (02/01/2017 1:46 PM EST) Final Diagnosis [id number] ? Location: 3L The signing pathologist has (i) examined the relevant preparation(s) for the specimen(s) and (ii) rendered or confirmed the diagnosis(es). . ?Surgical Pathology DIAGNOSIS Needle biopsies: ?Left breast Diagnosis: ?1. Complex sclerosing lesion(s) with usual ?ductal hyperplasia, sclerosing adenosis, cysts, ? columnar cell change, and apocrine metaplasia ? (see Discussion) ?2. Intraductal papilloma and clustered apocrine cysts Microcalcificat ions: ??Associated with complex sclerosing lesion Electronically signed by: ??Jina BENITO, Alayna Valdes Verified: ??02/02/2017 ?Pathologist Performed at: ??-[facility] [place] Dept. [place]ology, [place], [place] DISCUSSION Multiple foci of complex sclerosing lesion(s) are present in multiple tissue cores making it difficult to approximate an overall size. The largest microscopic measurement is 6.0 mm. The lesion is likely only partially sampled/excised . CLINICAL INFORMATION Specimen Submitted: A - Left breast stereo bx 9g Clinical History: Architectural distortion Clinical Diagnosis: 1. CA, 2. Radial scar SPECIMEN PROCESSING A - ??Labeled/Fixat jorje: Left breast stereo BX, 9G, formalin. Quantity/Size: Six, averaging 3.5 x 0.3 cm. Tissue Description: Varigated pink to yellow-white, fibrofatty needle core biopsies. Ischemic Time: 5 minutes. Sections/Proces sing: (T2) ??shb 02/02/2017 2:27 PM EST [facility] BREAST STRUCTURE / Unknown 02/01/2017 1:46 PM EST 02/01/2017 1:46 PM EST Evans Almanzar MD PATHOLOGY/CYTOLOGY ORDERABLES [facility] [place] [address] * Mammo Breast Us Limited Left (02/01/2017 1:09 PM EST) Anatomical Region Laterality Modality Breast Left Mammography Addenda Addendum by Evans Almanzar MD on 02/09/2017 2:34 PM EST ADDENDUM #1 EXAMINATION: MAMMO BREAST US LIMITED LEFT CLINICAL HISTORY: abnormal finding. 4 directed ultrasound to establish best modality for guiding core biopsy. TECHNIQUE: High-resolution ultrasound was performed of the left breast 12:00 radian middle third. COMPARISON: Breast, FINDINGS: There is no evidence of discrete solid lesion, abnormal acoustical shadowing, or cyst. IMPRESSION: No sonographic correlate for mammographic finding. Recommend rita guided core biopsy performed and dictated below. BI-RADS Category 4: Suspicious Finding - Biopsy Should Be Considered ORIGINAL REPORT STEREOTACTIC GUIDED VACUUM ASSISTED BIOPSY OF THE LEFT BREAST(S) CLINICAL HISTORY: abnormal finding. ??Mass/distortion left breast 12:00 radian 6 cm from the nipple measuring 0.8 cm. Procedural details: Informed consent was obtained and a time out procedure was performed per hospital protocol. The patient gave permission to proceed. Using sterile technique and local anesthetic (less than 20 cc's of 1% lidocaine) a biopsy was performed from the craniocaudal approach using tomographic guidance and direct digital imaging. The patient was in the upright position. Multiple core biopsy specimens were obtained using a [employer] Eviva 9g 20mm device. A specimen radiograph confirms the mass with distorted edges to be contained within it. This also contains the incidental microcalcifications associated with the area of concern. A [employer] Eviva cylinder marker clip was deployed. A follow-up mammogram was performed in the CC and True Lateral projections and demonstrates the clip in the biopsy bed COMPLICATIONS: None. PROCEDURAL ATTESTATION: Resident: None I performed the procedure without a resident. IMAGING DIFFERENTIAL DIAGNOSIS: Radial scar, invasive carcinoma, focal fibrosis PATHOLOGIC DIAGNOSIS: Complex sclerosing lesion probably not completely removed IMPRESSION: Concordant result RECOMMENDATION: Surgical consultation. [...] THE LEFT BREAST(S) CLINICAL HISTORY: abnormal finding. ??Mass/distortion left breast 12:00 radian 6 cm from the nipple measuring 0.8 cm. Procedural details: Informed consent was obtained and a time out procedure was performed per hospital protocol. The patient gave permission to proceed. Using sterile technique and local anesthetic (less than 20 cc's of 1% lidocaine) a biopsy was performed from the craniocaudal approach using tomographic guidance and direct digital imaging. The patient was in the upright position. Multiple core biopsy specimens were obtained using a [employer] Eviva 9g 20mm device. A specimen radiograph confirms the mass with distorted edges to be contained within it. This also contains the incidental microcalcifications associated with the area of concern. A [employer] Eviva cylinder marker clip was deployed. A follow-up mammogram was performed in the CC and True Lateral projections and demonstrates the clip in the biopsy bed COMPLICATIONS: None. PROCEDURAL ATTESTATION: Resident: None I performed the procedure without a resident. IMAGING DIFFERENTIAL DIAGNOSIS: Radial scar, invasive carcinoma, focal fibrosis PATHOLOGIC DIAGNOSIS: Complex sclerosing lesion probably not completely removed Procedure Note Evans Almanzar MD - 02/03/2017 STEREOTACTIC GUIDED VACUUM ASSISTED BIOPSY OF THE LEFT BREAST(S) CLINICAL HISTORY: abnormal finding. Mass/distortion left breast 12:00radian 6 cm from the nipple measuring 0.8 cm. Procedural details: Informed consent was obtained and a time out procedure was performedper hospital protocol. The patient gave permission to proceed. Using sterile technique and local anesthetic (less than 20 cc's of 1% lidocaine) abiopsy was performed from the craniocaudal approach using tomographic guidance anddirect digital imaging. The patient was in the upright position. Multiple core biopsy specimens were obtained using a [employer] Eviva 9g 20mmdevice. A specimen radiograph confirms the mass with distorted edges to becontained within it. This also contains the incidental microcalcificationsassociated with the area of concern. A [employer] Eviva cylinder marker clip was deployed. A follow-up mammogram was performed in the CC and True Lateral projectionsand demonstrates the clip in the biopsy bed COMPLICATIONS: None. PROCEDURAL ATTESTATION: Resident: None I performed the procedure without a resident. IMAGING DIFFERENTIAL DIAGNOSIS: Radial scar, invasive carcinoma, focal fibrosis PATHOLOGIC DIAGNOSIS: Complex sclerosing lesion probably not completely removed IMPRESSION Concordant result RECOMMENDATION: Surgical consultation. I discussed these results and recommendations withthe patient on 02/03/2017 at 0915 hours. REVIEW PATH CONFERENCE?: No 9:17 AM Anita Valentine MD IMG MAMMO ORDERABLES documented in this encounter Visit Diagnoses Diagnosis Abnormal finding on breast imaging Other (abnormal) findings on radiological examination of breast documented in this encounter Care Teams Junior Account Manager Relationship Specialty Start Date End Date Christine Fuentes PA [address] [place] [address] PCP - General Family Medicine 01/24/17 10/08/19 documented as of this encounter
--- OUTSIDE RECORDS SUMMARY | 2023-12-26 13:18 | XMS_ITS | Encounter Summary ---
Author Organization [facility] [place] [address] Care Team Providers Care Hvac Sales Representative Name Role Phone Spike Sierra MD Primary Care Provider [phone] Encounter Details Date Type Department Care Team (Late st Contact Info) Description 04/27/2010 8:00 AM EST Follow-Up Radiation Oncology at [address] [phone] Ema Fair MD [facility] [place] [address] Social History Tobacco Use Types Packs/Day Years Used Date Smoking Tobacco: Never Assessed Sex and Gender Information Value Date Recorded Sex Assigned at Not on file Gender Identity Not on file Sexual Orientation Not on file documented as of this encounter Plan of Treatment Not on file documented as of this encounter Visit Diagnoses Not on filedocumented in this encounter Care Teams Hvac Sales Representative Relationship Specialty Start Date End Date Spike Sierra MD [address] [place], [place] [address] PCP - General 01/12/10 01/23/17 documented as of this encounter
--- OUTSIDE RECORDS SUMMARY | 2023-12-26 13:18 | XMS_ITS | Encounter Summary ---
[place] [address] Care Team Providers Care Transfer Controller Name Role Phone Spike Sierra MD Primary Care Provider Encounter Details Date Type Department Care Team (Late st Contact Info) Description 01/02/2014 Telephone [place] [address] Yolette Waldrop APRN [address] [place] [address] DR RADIATION ONCOLOGY [place], [place] [id number] Social History Tobacco Use Types Packs/Day Years Used Date Smoking Tobacco: Former Cigarettes Q uit: 10/19/2011 Sex and Gender Information Value Date Recorded Sex Assigned at Not on file Gender Identity Not on file Sexual Orientation Not on file documented as of this encounter Miscellaneous Notes * Telephone Encounter - Yolette Waldrop APRN - 01/02/2014 11:53 AM EST Call to patient. He serum vitamin D level was 27. Goal is 35-45. We will increase her vitamin D3 [id number] IU a day. documented in this encounter Plan of Treatment Not on file documented as of this encounter Visit Diagnoses Not on filedocumented in this encounter Care Teams Transfer Controller Relationship Specialty Start Date End Date Spike Sierra MD [address] [place] [address] PCP - General 01/12/10 01/23/17 documented as of this encounter
--- OUTSIDE RECORDS SUMMARY | 2023-12-26 13:18 | XMS_ITS | Encounter Summary ---
Author Organization [facility] [place] [address] Care Team Providers Care Continuous Process Coffee Roaster Name Role Phone Spike Sierra MD Primary Care Provider Encounter Details Date Type Department Care Team (Late st Contact Info) Description 04/20/2010 8:00 AM EST Follow-Up Radiation Oncology at [address] [phone] Ema Fair MD [facility] [place] [address] Social History Tobacco Use Types Packs/Day Years Used Date Smoking Tobacco: Never Assessed Sex and Gender Information Value Date Recorded Sex Assigned at Not on file Gender Identity Not on file Sexual Orientation Not on file documented as of this encounter Plan of Treatment Not on file documented as of this encounter Visit Diagnoses Not on filedocumented in this encounter Care Teams Continuous Process Coffee Roaster Relationship Specialty Start Date End Date Spike Sierra MD [address] [place], [place] [address] PCP - General 01/12/10 01/23/17 documented as of this encounter
--- OUTSIDE RECORDS SUMMARY | 2023-12-26 13:18 | XMS_ITS | Encounter Summary ---
Author Organization [facility] Address [facility] [place] [address] Care Team Providers Care Service Greeter Name Role Phone Christine Fuentes Primary Care Provider [phone] Encounter Details Date Type Department Care Team (Late st Contact Info) Description 03/30/2017 Notes [place] [address] Evans Almanzar MD [facility] [place] [place] [address] Social History Tobacco Use Types Packs/Day Years Used Date Smoking Tobacco: Former Cigarettes Q uit: 10/19/2011 Smokeless Tobacco: Never Sex and Gender Information Value Date Recorded Sex Assigned at Not on file Gender Identity Not on file Sexual Orientation Not on file documented as of this encounter Progress Notes * Evans Almanzar MD - 03/30/2017 7:59 AM [...] on filedocumented in this encounter Care Teams Service Greeter Relationship Specialty Start Date End Date Christine Fuentes PA [address] [place] [address] PCP - General Family Medicine 01/24/17 10/08/19 documented as of this encounter
--- OUTSIDE RECORDS SUMMARY | 2023-12-26 13:18 | XMS_ITS | Encounter Summary ---
Author Organization [facility] Address [facility] [place] [address] Care Team Providers Care Reception Agent Name Role Phone Spike Sierra MD Primary Care Provider Encounter Details Date Type Department Care Team (Latest Contact Info) Description 01/04/2016 - 01/04/2016 11:59 PM EST Hospital Encounter Radiology Library [place] [address] Spike Nicolas MD [facility] [place] [address] Discharge Disposition: Home Social History Tobacco Use [...] tablet Take 81 mg by mouth daily. levothyroxine (SYNTHROID) 75 mcg Tablet Take 75 [...] Comments FILM LIBRARY STORAGE ONLY MAMMO Routine 01/04/2016 12:00 AM EST documented in this encounter Results * Film Library- Storage Only Mammo (01/04/2016 12:00 AM EST) Narrative [facility] - 01/13/2017 9:06 AM EST This exam is for storage only and is auto-finalizing. Spike Nicolas MD IMG FILM LIBRARY ORD ERABLES Performing Organization Address City/State/[facility] Co de Phone Number [place], [place] documented in this encounter Visit Diagnoses Not on filedocumented in this encounter Care Teams Reception Agent Relationship Specialty Start Date End Date Spike Sierra MD [address] [place] [address] PCP - General 01/12/10 01/23/17 documented as of this encounter
--- OUTSIDE RECORDS SUMMARY | 2023-12-26 13:18 | XMS_ITS | Encounter Summary ---
Author Organization [facility] [place] [address] Care Team Providers Care Cattle Rancher Name Role Phone Spike Sierra MD Primary Care Provider Encounter Details Date Type Department Care Team (Late st Contact Info) Description 05/04/2010 8:00 AM EDT Office Visit Radiation Oncology at [address] [phone] Ema Fair MD [facility] [place] [address] Discharge Disposition: Home Social History Tobacco Use [...] on filedocumented in this encounter Care Teams Cattle Rancher Relationship Specialty Start Date End Date Spike Sierra MD [address] [place], [place] [address] PCP - General 01/12/10 01/23/17 documented as of this encounter
--- OUTSIDE RECORDS SUMMARY | 2023-12-26 13:18 | XMS_ITS | Encounter Summary ---
Author Organization [facility] [place] [address] Care Team Providers Care Change Management Coordinator Name Role Phone Spike Sierra MD Primary Care Provider [phone] Encounter Details Date Type Department Care Team (Latest Contact Info) Description 01/20/2017 4:53 PM EST - 01/20/2017 11:59 PM EST Hospital Encounter Radiology Library at [facility] [place] [address] Christine Fuentes PA [address] [place] [address] Abnormal finding on breast imaging Discharge Disposition: [...] Procedure Name Priority Date/Time Associated Diagnosis Comments REQUEST FOR 2ND READ MAMMO Routine 01/20/2017 4:53 PM EST Abnormal finding on breast imaging documented in this encounter Results * Request for 2nd read Mammo (01/20/2017 4:53 PM EST) Anatomical Region Laterality Modality SO Impressions 01/23/2017 5:03 PM EST LEFT BREAST LESION #1 0.8 cm Mass ??deep central Quadrant 12 OClock 6 cm from the nipple BI-RADS Category 4: Suspicious Finding - Biopsy Should Be Considered RECOMMENDATION: LEFT breast ultrasound to decide biopsy method. This is amenable to a rita guided biopsy if not visible by ultrasound Please note: The interpretation of the [facility] Breast Imaging Radiologist subspecialist may differ from the original radiologists interpretation. This is usually not due to a deficiency of the original interpreting radiologist, rather due to the greater skill level afforded by sub-specialization in the field and/or reasonable variations in interpretations. If you have a concern regarding the [facility] interpretation you may contact the [facility] Breast Transmissions Systems Operator Office at . Narrative 01/23/2017 5:03 PM EST INTERPRETATION OF OUTSIDE BREAST IMAGING I have been asked to consult on this patient by Dr. dang because he/she believes a review of this study may change or alter the care of this patient. STUDIES FROM: [facility] DATES: 01/06/2017 ? CLINICAL HISTORY: ABNORMAL IMAGIN-LEFT BREAST, CAT 3; ? BX; ? MORE IMAGING; What Modality is the exam? Mammography; Body Part (please add comments as necessary): LEFT BREAST; I believe a reinterpretation of this exam may alter care of Patient. Yes. ?? COMPARISONS: [id number] FINDINGS: The breasts of scattered fiber glandular density. The patient has history of right-sided breast cancer RIGHT breast: Stable postsurgical changes in the [...] cysts. Procedure Note Anita Valentine MD - 01/23/2017 INTERPRETATION OF OUTSIDE BREAST IMAGING I have been asked to consult on this patient by Dr. dang becausehe/she believes a review of this study may change or alter the care of thispatient. STUDIES FROM: [facility] DATES: 01/06/2017 CLINICAL HISTORY: ABNORMAL IMAGIN-LEFT BREAST, CAT 3; ? BX; ? MOREIMAGING; What Modality is the exam? Mammography; Body Part (please add comments asnecessary): LEFT BREAST; I believe a reinterpretation of this exam may alter care of Patient. Yes. COMPARISONS: [id number] FINDINGS: The breasts of scattered fiber glandular density. The patient has historyof right-sided breast cancer RIGHT breast: Stable postsurgical changes in the upper outer quadrantRIGHT breast with no mammographic concerns malignancy LEFT breast: In the 12:00 position 6 cm the nipple there is a 0.8 cm areaof architectural distortion, possibly a small spiculated mass and punctate microcalcifications. This persists on the additional cone compressionviews and is suspicious for a small malignancy versus a radial scar. No Ultrasound performed. Multiple tiny well-defined masses scattered throughout theLEFT breast consistent with cysts. IMPRESSION LEFT BREAST LESION #1 0.8 cm Mass deep central Quadrant 12 OClock 6 cm from the nipple BI-RADS Category 4: Suspicious Finding - Biopsy Should Be Considered RECOMMENDATION: LEFT breast ultrasound to decide biopsy method. This is amenable to atomo guided biopsy if not visible by ultrasound Please note: The interpretation of the [facility] BreastImaging Radiologist subspecialist may differ from the original radiologists interpretation. This is usually not due to a deficiency of the original interpreting radiologist, rather due to the greater skill level affordedby sub-specialization in the field and/or reasonable variations ininterpretations. If you have a concern regarding the [facility] interpretation [facility] Transmissions Systems Operator [facility] at . Christine COTO IMG OUTSIDE INTERP RETATION ORDERABLES documented in this encounter Visit Diagnoses Diagnosis Abnormal finding on breast imaging Other (abnormal) findings on radiological examination of breast documented in this encounter Care Teams Change Management Coordinator Relationship Specialty Start Date End Date Spike Sierra MD [address] [place] [address] PCP - General 01/12/10 01/23/17 documented as of this encounter
--- OUTSIDE RECORDS SUMMARY | 2023-12-26 13:18 | XMS_ITS | Encounter Summary ---
Author Organization [facility] Address [facility] [place] [address] Care Team Providers Care Block Out Machine Operator Name Role Phone Spike Sierra MD Primary Care Provider [phone] Encounter Details Date Type Department Care Team (Latest Contact Info) Description 07/01/2015 - 07/01/2015 11:59 PM EDT Hospital Encounter Radiology Library [place] [facility] [place] [phone] Spike Nicolas MD [facility] DIAGNOSTERI [place] [address] Discharge Disposition: Home Social History Tobacco Use [...] Comments FILM LIBRARY STORAGE ONLY MAMMO Routine 07/01/2015 12:00 AM EDT documented in this encounter Results * Film Library- Storage Only Mammo (07/01/2015 12:00 AM EDT) Narrative RAD - 01/13/2017 9:05 AM EST This exam is for storage only and is auto-finalizing. Spike Nicolas MD IMG FILM LIBRARY ORD ERABLES [place], [place] documented in this encounter Visit Diagnoses Not on filedocumented in this encounter Care Teams Block Out Machine Operator Relationship Specialty Start Date End Date Spike Sierra MD [address] [place] [address] PCP - General 01/12/10 01/23/17 documented as of this encounter
--- OUTSIDE RECORDS SUMMARY | 2023-12-26 13:18 | XMS_ITS | Encounter Summary ---
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 Right breast exhibits skin change (Mildhyperpigmentation of R breast; skin intact.). Right breast exhibits no inverted nipple (R nipple inv erted during xrt, is no longer inverted.), no [...] Her behavior is normal. Judgment and thought contentnormal. Assessment and Plan: No problem-specific visit notes found for this encounter. MILEY. She has FU w/Dr. Forrester in near future & will return to see me in 6 mos. documented in this encounter Procedure Notes * Provider, Scanning - 11/09/2010 9:10 AM EDTAssociated Order(s): SCAN DOC: MAMMOGRAM documented in this encounter Plan of Treatment Not on file documented as of this encounter Procedures Procedure Name Priority Date/Time Associated Diagnosis Comments MAMMOGRAM SCAN 11/09/2010 9:10 AM EDT documented in this encounter Results * SCAN DOC: MAMMOGRAM (11/09/2010 9:10 AM EDT) Anatomical Region Laterality Modality Other Narrative 11/09/2010 9:22 AM EDT Procedure Note Provider, Scanning - 11/09/2010 9:10 AM EDT Scanning Provider MEDIA MGR SCAN EXT O RDR/RSLT documented in this encounter Visit Diagnoses Diagnosis DCIS (ductal carcinoma in situ) of breast- Primary Carcinoma in situ of breast documented in this encounter Care Teams Cow Trimmer Relationship Specialty Start Date End Date Spike Sierra MD [address] [place] [address] PCP - General 01/12/10 01/23/17 documented as of this encounter
--- OUTSIDE RECORDS SUMMARY | 2023-12-26 13:18 | XMS_ITS | Encounter Summary ---
Author Organization [facility] [place] [address] Care Team Providers Care Drainage Design Coordinator Name Role Phone Spike Sierra MD Primary Care Provider Encounter Details Date Type Department Care Team (Latest Contact Info) Description 01/17/2014 Unscheduled Encounter Hematology Oncology at [address] [phone] [facility] [place] [address] Dietary surveillance and counseling Social History Tobacco Use Types Packs/Day Years Used Date Smoking Tobacco: Former Cigarettes Q uit: 10/19/2011 Sex and Gender Information Value Date Recorded Sex Assigned at Not on file Gender Identity Not on file Sexual Orientation Not on file documented as of this encounter Progress Notes * Denzel Payne, MUMTAZ - 01/17/2014 1:00 PM EST [facility] Dietitian Follow Up Assessment Seen By: Elida Payne, MS, RD, SUPERVISOR PRECISION OPTICAL ELEMENTS, LD Reason for visit: Wanting to lose [...] have eggs and toast Noon: can of Zalandoo lite soup and pickels Pm: lean cuisine [...] up to 17 min/treadmill). Logging calories, likes [employer] and the meal suggestions, but didn't feel [...] if suboptimal in 3-6 mos. The [facility] series from [facility] [place] 2008 showed a lower risk of [...] counseling documented in this encounter Care Teams Drainage Design Coordinator Relationship Specialty Start Date End Date Spike Sierra MD [address] [place] [address] PCP - General 01/12/10 01/23/17 documented as of this encounter
--- OUTSIDE RECORDS SUMMARY | 2023-12-26 13:18 | XMS_ITS | Encounter Summary ---
Author Organization [facility] [place] [address] Care Team Providers Care Software Client Architect Name Role Phone Spike Sierra MD Primary Care Provider Reason for Referral * Consultation (Routine) - Closed Specialty Diagnoses / Procedures Referred By Cherie abdul Referred To Contact Hematology and Oncology Diagnoses Breast cancer, right Yolette Waldrop HEADER UP [facility] [place] [address] Stj Hem Onc Infusion [address] [place] [phone] Referral ID Status Reason Start Date Expiration Date V isits Requested Visits Authorized [id number] Closed Continuity of Care 12/27/2013 06/25/2014 1 1 Reason for Visit * Reason Comments Radiation Follow-up breast cancer Encounter Details Date Type Department Care Team (Late st Contact Info) Description 12/26/2013 9:00 AM EST Follow-Up Radiation Oncology at [address] [phone] Yolette Waldrop [address] [place] [address] Breast cancer, right (Primary Dx) Discharge Disposition: Home Social History [...] 36.6 ??C (97.9 ??F) 12/26/2013 8:47 AM ES T Respiratory Rate 18 12/26/2013 8:47 AM EST Oxygen Saturation 96% 12/26/2013 8:47 AM EST Inhaled Oxygen Concentration - - Weight 77.6 kg (171 lb) 12/26/2013 8:47 AM EST Height - - Body Mass Index - - documented in this encounter Patient Instructions * Patient Instructions* Yolette Waldrop APRN - 12/26/2013 9:10 AM EST Please go to the lab to get the serum Vitamin D level done and call here after you have it drawn soI can check for results Take vitamin D3 2000 units a day ongoing. Filed Vitals: 12/26/13 0847 BP: 124/82 Pulse: 87 Temp: 36.6 ??C (97.9 ??F) TempSrc: Oral Resp: 18 Weight: 77.565 kg (171 lb) SpO2: 96% documented in this encounter Progress Notes * Yolette Waldrop APRN - 12/26/2013 8:27 AM EST Subjective: Patient ID: Cecilia Marx is a 58 y.o. female who was treated with lumpectomy followed by radiation therapy for breast cancer. She is in clinic for scheduled follow up. HPI At age 54 y/o Ms Marx underwent B screening mmg 12/03/09: A couple of new microcalcs associated w/a group of otherwise largely unchanged microcalcs in UOQ R breast. Grouping of microcalcs now numbers 6 or 7 & contains some conor shaped [...] Dr. Forrester & he referred her to [facility] for stereotactic bx. 01/06/10 limited U/S R [...] and pleomorphic microcalcifications I elected to perform astereotactic biopsy as detailed in a separate note. 01/06/10 vacuum assisted stereotactic bx R breast: of calcifications in the upper, outer quadrant at 0930, 8.5cm from the nipple. Size: 37mm. The [...] Stack,who does not rec hormonal tx. Dr. oFrrester has spoken w/Dr. Anita Valentine, who does not rec MRI. 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 1st child @ age [...] in situ Tumor Staging from Staging System [id number] You had stage 0 breast cancer with a good prognosis Size of Primary Malignancy 0.22 cm Grade Low grade Margin Negative--localized breast cancer ER positive [place] positive Family history Mother with history of breast cancer at age 53 Hormone therapy none Chemotherapy none Radiation therapy Total dose of radiation 60.4 Gy Surveillance: ----11/21/11 B mmg, done @ [facility], requested by Dr. Forrester, whom she recently saw in . She reports that the mmg was ok. Patient Active Problem [...] time. She has no complaints.She denies any issueswith her breast. She has no lymphedema, no restriction in ROM, no tenderness, no pain, no shortnessof breath, no chest tightness, no persistent headaches or skeletal pain. 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 She does not have other regular exercise. She wants to limit the number of appointments that she has due to her insurance limitations and herhigh deductible. Review of Systems Constitutional: Negative. Negative for fever, chills, diaphoresis, activity change, appetite change, fatigue and unexpected weight change. HENT: Negative. Eyes: [...] place, and time. She exhibits normal muscle tone. Coordination normal. Skin: Skin is warm and dry. No rash noted. No erythema. No pallor. Psychiatric: She has a normal mood and affect. Her behavior is normal. Judgment and thought contentnormal. Breast___X_ no nipple discharge, no dryness, no [...] well. She had a normal mammogram at [facility] (we will request a copy). We reviewed signs and symptoms of late effect of radiation therapy including tissue fibrosis, need to do regular stretching exercises, need to report edema to breast or arm and any persistent symptoms including persistent cough, headache, skeletal pain, skin changes. We discussed the survivor benefits of regular exercise and weight control. Due to [...] concerns. She would like to meet with stand in todiscuss weight loss --referral made. documented in this encounter Plan of Treatment Scheduled Referrals Name Type Priority Associated Diagnoses Orde r Schedule Referral to Nutrition Services Outpatient Referral Routine Breast Cancer, Right Ordered: 12/27/2013 documented as of this encounter Visit Diagnoses Diagnosis Breast cancer, right- Primary Malignant neoplasm of breast (female), unspecified site documented in this encounter Care Teams Software Client Architect Relationship Specialty Start Date End Date Spike Sierra MD [address] [place] [id number] PCP - General 01/12/10 01/23/17 documented as of this encounter
--- OUTSIDE RECORDS SUMMARY | 2023-12-26 13:18 | XMS_ITS | Encounter Summary ---
Author Organization [facility] [place] [address] Care Team Providers Care Ecg Technician Name Role Phone Spike Sierra MD Primary Care Provider [phone] Encounter Details Date Type Department Care Team (Latest Contact Info) Description 11/08/2010 - 11/08/2010 11:59 PM EDT Hospital Encounter Radiology Library at [facility] [place] [phone] Spike Nicolas MD [facility] [place] [address] Pain Discharge Disposition: Home Social History Tobacco Use [...] alendronate (FOSAMAX) 70 mg tablet 05/04/2010 03/08/2017 hydrocortisone 1 % cream 05/04/2010 documented as of this encounter Plan of Treatment Not on file documented as of this encounter Procedures Procedure Name Priority Date/Time Associated Diagnosis Comments FILM LIBRARY STORAGE ONLY MAMMO Routine 11/08/2010 12:00 AM EDT Pain documented in this encounter Results * Film Library- Storage Only Mammo (11/08/2010 12:00 AM EDT) Narrative [facility] - 01/11/2017 4:26 PM EST This exam is for storage only and is auto-finalizing. Spike Nicolas MD IMG FILM LIBRARY ORD ERABLES Performing Organization Address City/State/[facility] Co de Phone Number [place], [place] documented in this encounter Visit Diagnoses Diagnosis Pain Generalized pain documented in this encounter Care Teams Ecg Technician Relationship Specialty Start Date End Date Spike Sierra MD [address] [place] [address] PCP - General 01/12/10 01/23/17 documented as of this encounter
--- OUTSIDE RECORDS SUMMARY | 2023-12-26 13:18 | XMS_ITS | Encounter Summary ---
[place] [address] Care Team Providers Care Molding Machine Setter Name Role Phone Spike Sierra MD Primary Care Provider [phone] Reason for Visit * Reason Onset Date Comments Other 03/07/2011 question regardi ng hormone suppository Encounter Details Date Type Department Care Team (Late st Contact Info) Description 03/07/2011 Telephone Radiation Oncology at [address] [phone] Jessica Boyer, RN Other (question regarding hormone suppository) Social History Tobacco Use Types Packs/Day Years Used Date Smoking Tobacco: Never Assessed Sex and Gender Information Value Date Recorded Sex Assigned at Not on file Gender Identity Not on file Sexual Orientation Not on file documented as of this encounter Miscellaneous Notes * Telephone Encounter - Jessica Womack RN - 03/07/2011 5:51 PM EST Radiation Oncology Nurse Phone Note Patient calls stating that she recently saw her MONITOR AND STORAGE BIN TENDER physician, Dr Yasemin Selby, for c/o vaginal dryness and painful intercourse. She is recommending a low dose estrogen suppository for this, but stressed that she check with her oncologist first due to her H/O breast cancer ( DCIS) This was shared with Dr Fair who recommend that she see Dr Stack regarding this. This patient has not seen Dr Stack in the past, but her surgeon, Dr Forrester, did consult with Dr Satck prior toRadiation oncology consult and was told that this patient did not require hormonal therapy to treather breast cancer. I called patient and left a brief message on her answer machine that Dr Fair has suggested that she meet with Dr Stack here at [facility] to discuss her question. Will ask secretary to the vice president to contact pt w/ this appt. documented in this encounter Plan of Treatment Not on file documented as of this encounter Visit Diagnoses Not on filedocumented in this encounter Care Teams Molding Machine Setter Relationship Specialty Start Date End Date Spike Sierra MD [address] [place] [address] PCP - General 01/12/10 01/23/17 documented as of this encounter
--- OUTSIDE RECORDS SUMMARY | 2023-12-26 13:18 | XMS_ITS | Encounter Summary ---
Author Organization [facility] [place] [address] Care Team Providers Care Forest Engineer Name Role Phone Spike Sierra MD Primary Care Provider Reason for Visit * Reason Comments Radiation Follow-up Encounter Details Date Type Department Care Team (Late st Contact Info) Description 06/13/2011 3:30 PM EDT Follow-Up Radiation Oncology at [address] [phone] Ema Fair MD [facility] [place] [address] Breast CA (Primary Dx) Discharge Disposition: Home Social History Tobacco Use Types Packs/Day Years Used Date Smoking Tobacco: Never Assessed Sex and Gender Information Value Date Recorded Sex Assigned at Not on file Gender Identity Not on file Sexual Orientation Not on file documented as of this encounter Last Filed Vital Signs Vital Sign Reading Time Taken Comments Blood Pressure 119/89 06/13/2011 3:00 PM EDT Pulse 76 06/13/2011 3:00 PM EDT Temperature - - Respiratory Rate - - Oxygen Saturation 95% 06/13/2011 3:00 PM EDT Inhaled Oxygen Concentration - - Weight - - Height - - Body Mass Index - - documented in this encounter Patient Instructions * Patient Instructions* Ema Fair MD - 06/13/2011 4:20 PM EDT We honey contact you with more information about the Survivorship Program & will discuss followup@ that time. documented in this encounter Progress Notes * Yolette Waldrop APRN - 06/29/2011 11:52 AM EDT Leslee, Can you please schedule this patient to be seen by Chula Gonsalez or Pedro for survivorship follow up. * Ema Fair MD - 06/13/2011 3:40 PM EDT Subjective: Patient ID: Cecilia Marx is a 56 y.o. female who is 13.5 mos s/p xrt. 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 Hormonal tx not rec'd. MRI not rec'd. Sched'd FU today. 11/08/10 B mmg: No evidence for malignancy. Yearly mmg rec'd. Review of Systems: Tired & depressed, which she doesn't understand as she held up so well during the xrt. Yearly checkup w/PCP in fall & all fine; went back fo rcheckup due to depression & no conclusions reached. Knows that if she needs to see a counselor, she could do so. She plans to start exercising more. Sharp pain in R breast that can reach a level 10, but quickly resolves; does not wake her. Appetite fine. She continues FU w/Dr. Forrester, & he will be obtaining FU mmgs inAug. She was given ok by Dr. Stack to use vagifem for vaginal dryness. Objective: Physical Exam Constitutional: She is oriented [...] no tenderness. Right breast exhibits no inverted nipple, no mass, no nipple discharge, no skin change and no tenderness. Left breast exhibits no inverted n ipple, no mass, no nipple discharge, no skin [...] Judgment and thought contentnormal. Assessment and Plan: MILEY. I discussed w/her the Survivorship Program, & this may be a way for her feelings of depression & fatigue to be addressed. She is interested in minimizing cost of her care & the number of medical apts, & it is possible that her Rad Onc FU could be done via JoseJ uan Waldrop APRN, who is involved w/the Survivorship Program. Ms. Marx would like further information regarding whether her insurance would cover apts/FU w/the Survivorship Program &/or how much the visits would cost relative to a regular Rad Onc FU. I will pursue this information for her. FU will be arranged once we decide whether she will follow w/Survivorship Program &/or me. We discussed her possibly becoming enrolled in the program & seeing me on a prn basis. No problem-specific visit notes found for this encounter. documented in this encounter Plan of Treatment Not on file documented as of this encounter Visit Diagnoses Diagnosis Breast CA- Primary Malignant neoplasm of breast (female), unspecified site documented in this encounter Care Teams Forest Engineer Relationship Specialty Start Date End Date Spike Sierra MD [address] [place] [id number] PCP - General 01/12/10 01/23/17 documented as of this encounter
--- OUTSIDE RECORDS SUMMARY | 2023-12-26 13:18 | XMS_ITS | Encounter Summary ---
[place] [address] Care Team Providers Care Vice President Of Nursing Name Role Phone Spike Sierra MD Primary Care Provider Reason for Visit * Reason Onset Date Comments Other 07/05/2011 answer patient q uestion Encounter Details Date Type Department Care Team (Late st Contact Info) Description 07/05/2011 Telephone Radiation Oncology at [address] [phone] Daniel Boyer, RN Other (answer patient question) Social History Tobacco Use Types Packs/Day Years Used Date Smoking Tobacco: Never Assessed Sex and Gender Information Value Date Recorded Sex Assigned at Not on file Gender Identity Not on file Sexual Orientation Not on file documented as of this encounter Miscellaneous Notes * Telephone Encounter - Daniel Jimenez RN - 07/05/2011 8:50 AM EDT Radiation Oncology Nurse Phone Note Message copied by DANIEL JIMENEZ on MonJuly 05, 2011 8:50 AM ------ Message from: RAQUEL LOWRY Created: MonJuly 04, 2011 11:53 AM Regarding: re:upcoming appt Contact: [phone] Please call pt back. She said there was some confusion with what she thought the upcoming appt was going to be about. I called patient and she confirmed that she received appt to see the nurse practitioner,Yolette Coon 07/13, but she feels it is too soon after seeing Dr Fair in May. She states she is now seeinga Shinto counselor through her hindu and this is helping with her depression. She is agreeable to seeing the nurse practitioner, but prefers to wait until the routine follow up appt would be. Shewishes to cancel the 07/13 appointment. She voiced that she will call this clinic if she feels the current arrangement w/ her hindu is not helpful. Plan: Will cancel the 07/13 appt w/ C. Pace. I will ask Dr Fair in this week's team meeting, when she wishes for the appt to be rescheduled to. documented in this encounter Plan of Treatment Not on file documented as of this encounter Visit Diagnoses Not on filedocumented in this encounter Care Teams Vice President Of Nursing Relationship Specialty Start Date End Date Spike Sierra MD [address] [place] [id number] PCP - General 01/12/10 01/23/17 documented as of this encounter
--- OUTSIDE RECORDS SUMMARY | 2023-12-26 13:18 | XMS_ITS | Encounter Summary ---
Author Organization [facility] [place] [address] Care Team Providers Care Steam Flattener Name Role Phone Spike Sierra MD Primary Care Provider [phone] Encounter Details Date Type Department Care Team (Late st Contact Info) Description 03/07/2014 9:00 AM EST Ancillary Appointment Hematology Oncology at [address] [phone] [facility] [place] [address] Social History Tobacco Use Types Packs/Day Years Used Date Smoking Tobacco: Former Cigarettes Q uit: 10/19/2011 Sex and Gender Information Value Date Recorded Sex Assigned at Not on file Gender Identity Not on file Sexual Orientation Not on file documented as of this encounter Progress Notes * Denzel Payne RD - 03/07/2014 8:59 AM EST [facility] Dietitian Follow Up Assessment Seen By: Elida Payne, MS, RD, PROFESSOR OF FOOD BIOCHEMISTRY, LD Reason for visit: Wanting to lose [...] up to 17 min/treadmill). Logging calories, likes [employer] and the meal suggestions, but didn't feel [...] levels, if suboptimal in 3-6 mos. The [facility] series from [facility] September 2008 showed a lower risk of [...] better -- She lost 1 lb during Elisabet holidays, which her goal was to maintain. Would like to be out ofthe 160s when she returns in Mar. -- Increasing time on treadmill. She wants to move more. We reviewed workout dvds, websites with videos. -- Holding herself accountable -- Reviewed NAP challenge, which starts on 03/17. Educational Handouts provided: -- Healthier substitutions: A Dietitian's Guide -- Healthy holiday substitutions chart -- smart snacking for Adults and Teens (AND) -- Stop Stress Eating -- Healthy wallpaper embosser helper ([employer]) Other Recommendations: Monitoring and Evaluation: Will follow up with Mrs. Marx in one week (s) to re-evaluate. documented in this encounter Plan of Treatment Not on file documented as of this encounter Visit Diagnoses Not on filedocumented in this encounter Care Teams Steam Flattener Relationship Specialty Start Date End Date Spike Sierra MD [address] [place] [address] PCP - General 01/12/10 01/23/17 documented as of this encounter
--- OUTSIDE RECORDS SUMMARY | 2023-12-26 13:18 | XMS_ITS | Encounter Summary ---
Author Organization [facility] Address [facility] [place] [address] Care Team Providers Care Medical Laboratory Technicians Name Role Phone Christine Fuentes Primary Care Provider [phone] Reason for Visit * Consultation (Routine) - Closed Specialty Diagnoses / Procedures Referred By Cherie abdul Referred To Contact Hematology and Oncology Diagnoses Abnormal magnetic resonance imaging of left breast Christine Fuentes PA [address] [place] [address] [facility] Hem Onc [address] [place] [address] Referral ID Status Reason Start Date Expiration Date V isits Requested Visits Authorized [id number] Closed Consult, Test & Treat PCP Updated and/or Approved 01/20/2017 01/20/2018 1 1 Encounter Details Date Type Department Care Team (Latest Contact Info) Description 02/01/2017 12:38 PM EST - 02/01/2017 12:39 PM EST Hospital [place] [phone] Anita Valentine MD [facility] [address] Abnormal finding on breast imaging Discharge Disposition: [...] as of this encounter Progress Notes * Richie Grant DO - 02/01/2017 8:16 AM [...] Date/Time Associated Diagnosis Comments MAMMO STEREOTACTIC BIOPSY Routine 02/01/2017 1:59 PM EST Abnormal finding on breast imaging SPECIMEN TO PATHOLOGY Routine 02/01/2017 1:46 PM EST documented in this encounter Results * Mammo Stereotactic (02/01/2017 1:59 PM EST) Anatomical Region Laterality Modality Breast N/A Mammography Addenda Addendum by Evans Almanzar MD [...] core biopsy specimens were obtained using a [employer] SPORTSiva 9g 20mm device. A specimen radiograph confirms [...] core biopsy specimens were obtained using a Lore Eviva 9g 20mm device. A specimen radiograph [...] core biopsy specimens were obtained using a Lore Eviva 9g 20mmdevice. A specimen radiograph confirms [...] AM Anita Valentine MD IMG MAMMO ORDERABLES * Specimen to Pathology (surgical or derm) (02/01/2017 1:46 PM EST) AP Specimen 02/01/2017 1:46 PM EST 02/01/2017 1:46 PM EST Narrative [facility] - 02/01/2017 1:46 PM EST Specimen requisition ordered. ??Separate Pathology report to follow Evans Almanzar MD PATHOLOGY/CYTOLOGY ORDERABLES [facility] [place] [address] documented in this encounter Visit Diagnoses Diagnosis [...] 1 dose, On Mon02/01/17 at 1345, Routine Given 02/01/2017 1:35 PM EST 10 mg documented in this encounter Care Teams Medical Laboratory Technicians Relationship Specialty Start Date End Date Christine Fuentes PA [address] [place] [address] PCP - General Family Medicine 01/24/17 10/08/19 documented as of this encounter
--- OUTSIDE RECORDS SUMMARY | 2023-12-26 13:18 | XMS_ITS | Encounter Summary ---
Author Organization [facility] Address [facility] [place] [address] Care Team Providers Care Youth Development Specialist Name Role Phone Spike Sierra MD Primary Care Provider Encounter Details Date Type Department Care Team (Latest Contact Info) Description 12/31/2014 - 12/31/2014 12:04 AM [facility] Hospital Encounter Radiology Library at [facility] [place] [phone] Spike Nicolas MD [facility] [place] [address] Screening breast examination Discharge Disposition: Home Social [...] Comments FILM LIBRARY STORAGE ONLY MAMMO Routine 12/31/2014 12:00 AM EST Screening breast examination documented in this encounter Results * Film Library- Storage Only Mammo (12/31/2014 12:00 AM EST) Narrative [facility] - 01/11/2017 4:47 PM EST This exam is for storage only and is auto-finalizing. Spike Nicolas MD IMG FILM LIBRARY ORD ERABLES [place], [place] documented in this encounter Visit Diagnoses Diagnosis Screening breast examination Other screening breast examination documented in this encounter Care Teams Youth Development Specialist Relationship Specialty Start Date End Date Spike Sierra MD [address] [place] [address] PCP - General 01/12/10 01/23/17 documented as of this encounter
--- OUTSIDE RECORDS SUMMARY | 2023-12-26 13:18 | XMS_ITS | Encounter Summary ---
Author Organization [facility] Address [facility] [place] [address] Care Team Providers Care Woodworking Machine Feeder Name Role Phone Christine Fuentes Primary Care Provider [phone] Encounter Details Date Type Department Care Team (Late st Contact Info) Description 03/30/2017 8:40 AM [facility] Hospital [place] [address] Marla Brice MD [facility] [place] [address] Breast lesion Discharge Disposition: Home Social History [...] Name Priority Date/Time Associated Diagnosis Comments MAMMO SPECIMEN Routine 03/30/2017 1:34 PM EST Breast lesion documented in this encounter Results * Mammo Specimen (03/30/2017 [...] are no close margins. Marla Blue MD IMG MAMMO ORDERA BLES documented in this encounter Visit Diagnoses Diagnosis Breast lesion Unspecified breast disorder documented in this encounter Care Teams Woodworking Machine Feeder Relationship Specialty Start Date End Date Christine Fuentes PA [address] [place] [address] PCP - General Family Medicine 01/24/17 10/08/19 documented as of this encounter
--- OUTSIDE RECORDS SUMMARY | 2023-12-26 13:18 | XMS_ITS | Encounter Summary ---
Author Organization [facility] Address [facility] [place] [address] Care Team Providers Care Automation Developer Name Role Phone Spike Sierra MD Primary Care Provider Encounter Details Date Type Department Care Team (Latest Contact Info) Description 12/31/2014 12:05 AM EST - 12/31/2014 11:59 PM EST Hospital Encounter Radiology Library [place] [address] Spike Nicolas MD [facility] [place] [address] Screening breast examination Discharge Disposition: Home Social [...] FILM LIBRARY STORAGE ONLY MAMMO Routine 12/31/2014 12:05 AM EST Screening breast examination documented in this encounter Results * Film Library- Storage Only Mammo (12/31/2014 12:05 AM EST) Narrative [facility] - 01/11/2017 4:48 PM EST This exam is for storage only and is auto-finalizing. Sipke Nicolas MD IMG FILM LIBRARY ORD ERABLES [place], [place] documented in this encounter Visit Diagnoses Diagnosis Screening breast examination Other screening breast examination documented in this encounter Care Teams Automation Developer Relationship Specialty Start Date End Date Spike Sierra MD [address] [place] [address] PCP - General 01/12/10 01/23/17 documented as of this encounter
--- OUTSIDE RECORDS SUMMARY | 2023-12-26 13:18 | XMS_ITS | Encounter Summary ---
Author Organization [facility] [place] [address] Care Team Providers Care Oncology Physician Name Role Phone Spike Sierra MD Primary Care Provider [phone] Encounter Details Date Type Department Care Team (Late st Contact Info) Description 01/09/2014 2:00 PM EST Ancillary Appointment Hematology Oncology at [address] [phone] [facility] [place] [address] Social History Tobacco Use Types Packs/Day Years Used Date Smoking Tobacco: Former Cigarettes Q uit: 10/19/2011 Sex and Gender Information Value Date Recorded Sex Assigned at Not on file Gender Identity Not on file Sexual Orientation Not on file documented as of this encounter Progress Notes * Denzel Payne RD - 01/09/2014 2:21 PM EST [facility] Initial Dietitian Assessment Seen By: Elida Payne MS, RD, CRITICAL CARE RN, LD Referred by: Yolette Waldrop APRN Reason for visit: Wanting to lose weight. Patient and diagnosis: Cecilia Marx is a 58 y.o. female who was treated with lumpectomy followed by radiation therapy for breast cancer. Assessment: HPI: Dx in Oct 2009, surgery in Jan and treatment in Feb 2010. Patient Active Problem List Diagnosis Code ??? 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 May have eggs and toast Noon: can of Spreakero lite soup and pickels Pm: lean cuisine [...] of Motivation/Readiness to Change: Contemplation/Action Nutrition Diagnosis: We discussed the concept of food as [...] levels, if suboptimal in 3-[address] [facility] series from [facility] September 2008 showed a lower risk of [...] Marx in one week (s) to re-evaluate. I have provided him/her with my card and contact information should s/he have any questions in the mean time. Thank you for this consult. documented in this encounter Plan of Treatment Not on file documented as of this encounter Visit Diagnoses Not on filedocumented in this encounter Care Teams Oncology Physician Relationship Specialty Start Date End Date Spike Sierra MD [address] [place] [address] PCP - General 01/12/10 01/23/17 documented as of this encounter
--- OUTSIDE RECORDS SUMMARY | 2023-12-26 13:18 | XMS_ITS | Encounter Summary ---
Author Organization [facility] Address [facility] [place] [address] Care Team Providers Care Vp Business Development Name Role Phone Spike Sierra MD Primary Care Provider Reason for Visit * Reason Comments Radiation Follow-up Encounter Details Date Type Department Care Team (Late st Contact Info) Description 12/13/2010 1:30 PM EDT Follow-Up Radiation Oncology at [address] [phone] Ema Fair MD [facility] [place] [address] Breast ca (Primary Dx) Discharge Disposition: Home Social History [...] Saturation 96% 12/13/2010 1:00 PM EDT room air Inhaled Oxygen Concentration - - Weight - - Height - - Body Mass Index - - documented in this encounter Progress Notes * Ivana Armstrong - 01/28/2011 11:35 AM EST Ema Hernandez MD - 12/13/2010 1:52 PM EDT Subjective: [...] and thought contentnormal. Assessment and Plan: MILEY. FU 6 mos. No problem-specific visit notes found for this encounter. documented in this encounter Plan of Treatment Not on file documented as of this encounter Visit Diagnoses Diagnosis Breast CA- Primary Malignant neoplasm of breast (female), unspecified site documented in this encounter Care Teams Vp Business Development Relationship Specialty Start Date End Date Spike Sierra MD [address] [place] [address] PCP - General 01/12/10 01/23/17 documented as of this encounter
--- OUTSIDE RECORDS SUMMARY | 2023-12-26 13:18 | XMS_ITS | Encounter Summary ---
Author Organization [facility] [place] [address] Care Team Providers Care Cafe Lead Name Role Phone Spike Sierra MD Primary Care Provider Encounter Details Date Type Department Care Team (Latest Contact Info) Description 03/09/2010 9:00 AM EST Procedure visit Radiation Oncology at [address] [phone] Ema Fair MD [facility] [place] [address] Discharge Disposition: Home Social History Tobacco Use [...] on filedocumented in this encounter Care Teams Cafe Lead Relationship Specialty Start Date End Date Spike Sierra MD [address] [place] [address] PCP - General 01/12/10 01/23/17 documented as of this encounter
--- OUTSIDE RECORDS SUMMARY | 2023-12-26 13:18 | XMS_ITS | Encounter Summary ---
Author Organization [facility] [place] [address] Care Team Providers Care Polisher And Sander Name Role Phone Spike Sierra MD Primary Care Provider Encounter Details Date Type Department Care Team (Late st Contact Info) Description 03/23/2010 8:00 AM EST Follow-[place] [address] Colin Cotto MD [facility] [place] [address] Social History Tobacco Use Types Packs/Day Years Used Date Smoking Tobacco: Never Assessed Sex and Gender Information Value Date Recorded Sex Assigned at Not on file Gender Identity Not on file Sexual Orientation Not on file documented as of this encounter Plan of Treatment Not on file documented as of this encounter Visit Diagnoses Not on filedocumented in this encounter Care Teams Polisher And Sander Relationship Specialty Start Date End Date Spike Sierra MD [address] [place] [address] PCP - General 01/12/10 01/23/17 documented as of this encounter
--- OUTSIDE RECORDS SUMMARY | 2023-12-26 13:18 | XMS_ITS | Encounter Summary ---
Author Organization [place] [address] Care Team Providers Care Fingerprinter Name Role Phone Christine Fuentes Primary Care Provider [phone]- [phone] Reason for Visit * Consultation (Routine) - Closed Specialty Diagnoses / Procedures Referred By Cherie abdul Referred To Contact Hematology and Oncology Diagnoses Breast cancer screening, high risk patient History of breast cancer Rhoda Brumfield, MIRINA [facility] [place] [address] Stj Hem Onc Office [address] [place] [phone] Referral ID Status Reason Start Date Expiration Date V isits Requested Visits Authorized [id number] Closed Consult, Test & Treat 04/13/2017 04/13/2018 1 1 Encounter Details Date Type Department Care Team (Late st Contact Info) Description 04/20/2017 3:00 PM EST Office Visit Hematology/Oncology at [address] [phone] Amaury Stack MD [address] [place] [address] Atypical ductal hyperplasia of left breast Social History Tobacco Use [...] EST Temperature 36.8 ??C (98.2 ??F) 04/20/2017 3 :06 PM EST Respiratory Rate 16 04/20/2017 3:06 PM EST Oxygen Saturation 98% 04/20/2017 3:0 6 PM EST Inhaled Oxygen Concentration - - Weight 77.6 kg (171 lb) 04/20/2017 3:06 PM EST Height 160.5 cm (5' 3.19) 04/20/2017 3 :06 PM EST actual, no shoes Body Mass Index 30.11 04/20/2017 3:06 PM EST documented in this encounter Progress Notes * Yasemin Smith, RN - 04/20/2017 3:00 PM [...] [ ] Not satisfied SOCIAL ASSESSMENT: See [facility] social assessment information entered. Support Systems: transportation plan: [ x]private vehicle [ ] RCT needs Social Work referral [ ] Unknown at this time needs Social Work referral Barriers to treatment: Referrals/Interventions: LEARNING STYLE: Visual and verbal, wants written material and verbal discussion. TEACHING: __ NCI ???Chemotherapy and You?? and folder given NA __ Specific chemotherapy literature provided and reviewed with patient NA * Amaury Stack MD - 04/20/2017 3:00 PM [...] case. She does have a slight increase in risk by the Shana model and as such [...] very supportive of his and I believe after today's discussions they left with a very good [...] 6.69) performed by Marla Brice MD at [facility] Allergies Allergen Reactions ??? Nitrofurantoin Monohyd/M-Cryst [...] care of this patient. ?? STUDIES FROM: [facility] ?? DATES: 01/06/2017 ?? CLINICAL HISTORY: ABNORMAL IMAGIN-LEFT BREAST, CAT 3; ? BX; ? MORE IMAGING; What Modality is the exam? Mammography; Body Part (please add comments as necessary): LEFT BREAST; I believe a reinterpretation of this exam may alter care of Patient. Yes. ?? COMPARISONS: [id number] ?? FINDINGS: The breasts of scattered fiber [...] ??lesion, and sclerosing adenosis Electronically signed by: ??Delon Alvarez MD Verified: ??04/05/2017 ?Pathologist Performed at: ??-[facility] Dept. of Pathology, [place], [place] DISCUSSION Two separate foci of atypical [...] of developing a breast cancer. 5 years oftamoxifen or perhaps an aromatase inhibitor could reduce her risk by about 40%. I discussed this indetail with her and she is inclined not to take a perla or an aromatase inhibitor. She is going to talk to her about that. I went over the risks and side effects of both tamoxifen and the aromatase inhibitors and explained the difference between them so she has a good understanding of thelow percentage of side effects and the difference [...] situation but it is a valid reason notto do genetic testing if one does not want to consider the implications of a positive test. She is not interested in considering mastectomies or a oophorectomy if her BCRA testing was positive. documented in this encounter Plan of Treatment Scheduled Referrals Name Type Priority Associated Diagnoses Order Schedule Referral to Hematology and Oncology Outpatient Referral Routine Breast cancer screening, high risk patient History of breast cancer Ordered: 04/13/2017 documented as of this encounter Visit Diagnoses Diagnosis Atypical ductal hyperplasia of left breast documented in this encounter Care Teams Fingerprinter Relationship Specialty Start Date End Date Christine Fuentes PA [address] [place] [address] PCP - General Family Medicine 01/24/17 10/08/19 documented as of this encounter
--- OUTSIDE RECORDS SUMMARY | 2023-12-26 13:18 | XMS_ITS | Encounter Summary ---
[place] [address] Care Team Providers Care Slasher Name Role Phone Christine Fuentes Primary Care Provider +1- [phone] Reason for Visit * Auth/Cert Specialty Diagnoses / Procedures Referred By Cherie abdul Referred To Contact Diagnoses LEFT BREAST COMPLEX SCLEROSING LESION Procedures PRO EXCISE BREAST LES W XRAY MARKER EXCISION LESION, BREAST W/ PREOP.MARKER (NEEDLE LOC.) (WRVU 6.69) MODIFIER WITH NEEDLE LOC., LESION #1 Referral ID Status Reason Start Date Expiration Date Visits Re quested Visits Authorized [id number] 1 1 Encounter Details Date Type Department Care Team (Late st Contact Info) Description 03/30/2017 9:24 AM EST - 03/30/2017 3:00 PM [facility] Hospital Encounter [place] [address] Savana Zepeda MD [facility] [place] [address] Discharge Disposition: Home Social History Tobacco Use [...] 36.8 ??C (98.2 ??F) 03/30/2017 2:04 PM ES T Respiratory Rate 16 03/30/2017 2:46 PM EST [...] closest emergency room or call the hospital final block press operator at [phone] and ask for physician jewelry salesperson covering for your physician. Questions or problems after 5pm or on a weekend: Call the [facility] final block press operator at and ask for the physician jewelry salesperson covering for your doctor. * Patient Instructions* [...] 04/13/2017 10:45 AM Rhoda Brumfield APRN [facility] Call Doctor for: Worsening redness or drainage from your incision lasting longer than 5 days following surgery Any foul-smelling drainage from the incision Fevers greater than 101 degrees F Persistent nausea or vomiting (this may be related to opioid pain medications) Phone number for questions: [phone] before 5 PM weekdays [phone] after 5 PM and on weekends/holidays documented [...] Zepeda MD - 03/30/2017 1:48 PM EST [facility] Operative Note Patient Name: Cecilia Marx : [id number] MR#: [id number] Case Date: 03/30/2017 Surgeon: Surgeon(s) and Role: [...] Operative Note Patient Name: Cecilia Marx : [id number] MR#: [id number] Case Date: 03/30/2017 Surgeon: Surgeon(s) and Role: [...] PM EST 03/30/2017 2:20 PM EST Narrative [facility] - 03/30/2017 2:20 PM EST Specimen requisition ordered. ??Separate Pathology report to follow Resulting Agency Comment Spec In Lab Savana Blue MD PATHOLOGY/CYTOLO GY ORDERABLES Performing Organization Address City/State/[facility] Co de Phone Number [facility] [place] [address] * Surgical Pathology Report (03/30/2017 1:22 PM EST) Final Diagnosis [id number] ? Location: [facility] The signing pathologist has [...] Delon Lewis Verified: ??04/05/2017 ?Pathologist Performed at: ??-[facility] Dept. of Pathology, [place], [place] DISCUSSION Two separate foci of atypical [...] clip is within slice XII. SECTIONS/PROCESSING: (1) loan representative perpendicular slice I, orange-cranial margin; (2) loan representative slice VIII; (3) loan representative slice IX; (4) loan representative slice X; (5) loan representative slice XI; (6) loan representative slice XII, with cylinder clip; (7) slice XIII, with lesion; (8) slice XIV, with lesion; (9) loan representative perpendicular slice XV. (R9) Ischemic Time: 85 minutes ??chinyere Additional sections: (10) remaining slice VIII; (11) slice III; (12) fibrous tissue central slice V; (13-14) bisected slice VII. (R14) chinyere 04/05/2017 9:19 AM EST [facility] BREAST STRUCTURE / Unknown 03/30/2017 1:22 PM EST 03/30/2017 1:22 PM EST Savana Blue MD PATHOLOGY/CYTOLO GY ORDERABLES Performing Organization Address City/State/[facility] Co de Phone Number [facility] [place] [address] documented in this encounter Visit Diagnoses Not on filedocumented in this encounter Administered Medications Inactive Administered Medications - up to 3 most recent administrations Medication Order MAR Action Action Date Dose Rate Site lactated Ringers infusion 1,000 mL 1,000 mL, at 100 mL/hr, Intravenous, CONTINUOUS, Starting on Arpita 03/30/17 at 1030, Until Arpita 2 at 1702, Day of Surgery (Day of Procedure) New Bag 03/30/2017 1:51 PM EST New Bag 03/30/2017 10:23 AM EST 1,000 mLs 100 mL/hr New Bag 03/30/2017 10:14 AM EST 1,000 mLs 100 mL/hr lidocaine (XYLOCAINE) 10 mg/mL (1 %) injection 3 mg 3 mg (0.3 mL), Subcutaneous, ONCE PRN, 1 dose, Starting on Arpita 28/18 at 1002, Until Arpita 2/8/18 at 1702, for discomfort with PIV insertion, Day of Surgery (Day of Procedure), Routine sodium chloride 0.9 % flush 5-20 mL 5-20 mL, Intravenous, EVERY 1 MIN PRN, Starting on Arpita 2/8/18 at 1002, Until Arpita 2/8/18 at 1702, flush, Flush pertains to all [...] 5% 100 mL (COMPLETED) 2 g, Intravenous, ACCESS RN TO O.R., 1 dose, On Arpita 03/30/17 at 1300, Administer over 30 Minutes, Indication for (Active or Suspected): Prophylaxis 1246 (Given - Provid er: Chapis Santoro CRNA) Continuous Medication Order 03/28/2017 03/29/2017 03/30/2017 lactated Ringers infusion 1,000 mL 1,000 mL, at 100 mL/hr, Intravenous, CONTINUOUS, Starting on Arpita 03/30/17 at 1030, Until Arpita 218 at 1702, Day of Surgery (Day of Procedure) 1014 (New Bag - Prov ider: Vahid Jurado RN)1023 (New Bag - Provider: Vahid Jurado RN)1306 (Anesthesia Volume Adjustment - Provider: Chapis Santoro CRNA)1351 (New Bag - Provider: Chapis Santoro CRNA) PRN Medication Order 03/28/2017 03/29/2017 03/30/2017 BUpivacaine (PF) (MARCAINE) 0.5 % (5 mg/mL) injection (CANCELED) ONCE PRN, Starting on Arpita 2818 at 1304, Until Arpita 28/18 at 1702, Intra-Operative (Intra-Procedure), Routine 1304 (Given - Provid er: Savana Blue MD - Comment: 1% lidocaine mixed 1:1 with 0.5% bupivacaine, Total of 20 ml's given at this time.)1345 (Given - Provider: Savana Blue MD) lidocaine (XYLOCAINE) 10 mg/mL (1 %) injection 3 mg 3 mg (0.3 mL), Subcutaneous, ONCE PRN, 1 dose, Starting on Arpita 218 at 1002, Until Arpita 218 at 1702, for discomfort with PIV insertion, Day of Surgery (Day of Procedure), Routine lidocaine (XYLOCAINE) 10 mg/mL (1 %) injection (CANCELED) ONCE PRN, Starting on Arpita 218 at 1304, Until Arpita 218 at 1702, Intra-Operative (Intra-Procedure), Routine 1304 (Given - Provid er: Savana Blue MD - Comment: 1% lidocaine mixed 1:1 with 0.5% bupivacaine, Total of 20 ml's given at this time.)1345 (Given - Provider: Savana Blue MD) sodium chloride 0.9 % flush 5-20 mL 5-20 mL, Intravenous, EVERY 1 MIN PRN, Starting on Arpita 18 at 1002, Until Arpita 218 at 1702, flush, Flush pertains to all indwelling lines. Flush per protocol found in the job aid using the link provided on this medication record., Day of Surgery (Day of Procedure), Routine documented in this encounter Care Teams Slasher Relationship Specialty Start Date End Date Christine Fuentes PA [address] [place] [address] PCP - General Family Medicine 01/24/17 10/08/19 documented as of this encounter
--- OUTSIDE RECORDS SUMMARY | 2023-12-26 13:18 | XMS_ITS | Encounter Summary ---
Author Organization [facility] [place] [address] Care Team Providers Care Mold Forms Builder Name Role Phone Spike Sierra MD Primary Care Provider [phone] Reason for Visit * Reason Comments Radiation Follow-up Encounter Details Date Type Department Care Team (Late st Contact Info) Description 12/19/2011 3:00 PM EDT Follow-Up Radiation Oncology at [address] [phone] Ema Fair MD [facility] [place] [address] Breast CA (Primary Dx) Discharge Disposition: Home [...] * Patient Instructions* Ema Fair MD - 12/19/2011 3:40 PM EDT Your exam today is good. We will mail you a letter in 11 months with an appointment to see me in 1 year. documented in this encounter Progress Notes * Ivana Armstrong - 12/20/2011 7:11 PM EDT * Ema Fair MD - 12/19/2011 3:23 PM EDT Subjective: Patient ID: Cecilia Marx is a 56 y.o. female who is 19.5 mos s/p xrt. 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 Hormonal tx not rec'd. MRI not rec'd. Sched'd FU today. 11/21/11 B mmg, done @ [facility], requested by Dr. Forrester, whom she recently [...] and thought contentnormal. Assessment and Plan: MILEY. Request mmg report from [facility]. I rec'd FU in 6 mos, however, she says she will be seeing Dr. Forrester in 6 mos & asks if she can return to see me in 1 yr, & I informed her this would be ok provided she is doing well &continues FU w/Dr. Forrester. No problem-specific visit notes found for this encounter. documented in this encounter Plan of Treatment Not on file documented as of this encounter Visit Diagnoses Diagnosis Breast CA- Primary Malignant neoplasm of breast (female), unspecified site documented in this encounter Care Teams Mold Forms Builder Relationship Specialty Start Date End Date Spike Sierra MD [address] [place] [address] PCP - General 01/12/10 01/23/17 documented as of this encounter
--- OUTSIDE RECORDS SUMMARY | 2023-12-26 13:18 | XMS_ITS | Encounter Summary ---
Author Organization [facility] [place] [address] Care Team Providers Care Ride Attendant Name Role Phone Spike Sierra MD Primary Care Provider [phone] Encounter Details Date Type Department Care Team (Late st Contact Info) Description 03/31/2010 11:00 AM EST Follow-[place] [address] Ema Fair MD [facility] [place] [address] Social History Tobacco Use Types Packs/Day Years Used Date Smoking Tobacco: Never Assessed Sex and Gender Information Value Date Recorded Sex Assigned at Not on file Gender Identity Not on file Sexual Orientation Not on file documented as of this encounter Plan of Treatment Not on file documented as of this encounter Visit Diagnoses Not on filedocumented in this encounter Care Teams Ride Attendant Relationship Specialty Start Date End Date Spike Sierra MD [address] [place] [address] PCP - General 01/12/10 01/23/17 documented as of this encounter
--- OUTSIDE RECORDS SUMMARY | 2023-12-26 13:18 | XMS_ITS | Encounter Summary ---
Author Organization [facility] [place] [address] Care Team Providers Care Boarding Machine Operator Name Role Phone Spike Sierra MD Primary Care Provider Encounter Details Date Type Department Care Team (Late st Contact Info) Description 04/14/2010 7:15 AM EST Follow-Up Radiation Oncology at [address] [phone] Ema Fair MD [facility] [place] [address] Social History Tobacco Use Types Packs/Day Years Used Date Smoking Tobacco: Never Assessed Sex and Gender Information Value Date Recorded Sex Assigned at Not on file Gender Identity Not on file Sexual Orientation Not on file documented as of this encounter Plan of Treatment Not on file documented as of this encounter Visit Diagnoses Not on filedocumented in this encounter Care Teams Boarding Machine Operator Relationship Specialty Start Date End Date Spike Sierra MD [address] [place], [place] [address] PCP - General 01/12/10 01/23/17 documented as of this encounter
--- OUTSIDE RECORDS SUMMARY | 2023-12-26 13:18 | XMS_ITS | Encounter Summary ---
Author Organization [facility] Address [facility] [place] [address] Care Team Providers Care Nurse Quality Name Role Phone Spike Sierra MD Primary Care Provider Encounter Details Date Type Department Care Team (Latest Contact Info) Description 01/06/2017 12:05 AM EST - 01/06/2017 11:59 PM EST Hospital Encounter Radiology Library at [facility] [place] [address] Spike Nicolas MD [facility] [address] [place] [address] Discharge Disposition: Home Social History Tobacco Use [...] FILM LIBRARY STORAGE ONLY MAMMO Routine 01/06/2017 12:05 AM EST documented in this encounter Results * Film Library- Storage Only Mammo (01/06/2017 12:05 AM EST) Narrative [facility] - 01/10/2017 4:31 PM EST This exam is for storage only and is auto-finalizing. Spike Nicolas MD G FILM LIBRARY ORD ERABLES [place], [place] documented in this encounter Visit Diagnoses Not on filedocumented in this encounter Care Teams Nurse Quality Relationship Specialty Start Date End Date Spike Sierra MD [address] [place] [address] PCP - General 01/12/10 01/23/17 documented as of this encounter
--- OUTSIDE RECORDS SUMMARY | 2023-12-26 13:18 | XMS_ITS | Encounter Summary ---
Author Organization [facility] [place] [address] Care Team Providers Care Broadcast Maintenance Technician Name Role Phone Spike Sierra MD Primary Care Provider [phone] Encounter Details Date Type Department Care Team (Late st Contact Info) Description 01/31/2014 9:00 AM EST Ancillary Appointment Hematology Oncology at [address] [phone] [facility] [place] [address] Social History Tobacco Use Types Packs/Day Years Used Date Smoking Tobacco: Former Cigarettes Q uit: 10/19/2011 Sex and Gender Information Value Date Recorded Sex Assigned at Not on file Gender Identity Not on file Sexual Orientation Not on file documented as of this encounter Progress Notes * Denzel Payne RD - 01/31/2014 9:02 AM EST [facility] Dietitian Follow Up Assessment Seen By: Elida Payne, MS, RD, MARINE HABITAT RESOURCE SPECIALIST, LD Reason for visit: Wanting to [...] up to 17 min/treadmill). Logging calories, likes [employer] and [employer] and the meal suggestions, but didn't feel [...] levels, if suboptimal in 3-[address] [facility] series from [facility] September 2008 showed a lower risk of [...] on filedocumented in this encounter Care Teams Broadcast Maintenance Technician Relationship Specialty Start Date End Date Spike Sierra MD [address] [place] [address] PCP - General 01/12/10 01/23/17 documented as of this encounter
--- OUTSIDE RECORDS SUMMARY | 2023-12-26 13:18 | XMS_ITS | Encounter Summary ---
Author Organization [facility] [place] [address] Care Team Providers Care Junior Assistant Manager Name Role Phone Spike Sierra MD Primary Care Provider [phone] Reason for Visit * Reason Comments Radiation Follow-up breast cancer Encounter Details Date Type Department Care Team (Late st Contact Info) Description 12/13/2012 2:00 PM EDT Follow-Up Radiation Oncology at [address] [phone] Yolette Waldrop APRN [address] [place] [address] [place] [address] Breast cancer (Primary Dx) Discharge Disposition: Home Social History [...] 36.8 ??C (98.2 ??F) 12/13/2012 1:57 PM ED T Respiratory Rate 18 12/13/2012 1:57 PM EDT Oxygen Saturation 99% 12/13/2012 1:57 PM EDT Inhaled Oxygen Concentration - - Weight 62.6 kg (138 lb) 12/13/2012 1:57 PM EDT Height - - Body Mass Index - - documented in this encounter Progress Notes * Yolette Waldrop, ART HISTORY INSTRUCTOR - 12/13/2012 2:17 PM EDT Subjective: Patient [...] Dr. Forrester & he referred her to [facility] for stereotactic bx. 01/06/10 limited U/S R [...] Valentine, who does not rec MRI. 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 1st child @ age [...] rec'd. Surveillance: ----11/21/11 B mmg, done @ [facility], requested by Dr. 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 She had a normal mammogram at [facility] (we will request a copy). We reviewed signs and symptoms of late effect of radiation therapy including tissue fibrosis, need to do regular stretching exercises, need to report edema to breast or arm and any persistent symptoms including persistent cough, headache, skeletal pain, skin changes. We discussed the survivor benefits of regular exercise and weight control. We will see her again in one year. She is to call if shehas any questions or concerns in the interim. We discussed the benefit of vitamin D and she has nothad it checked. Next mammogram in November 2013. She will be seeing Dr Forrester in the interim. Addendum: serum vitamin D is 27. Instructed patient to start vitamin D 3 at 2000 IU a day. documented in this encounter Procedure Notes * Provider, Scanning - 12/20/2012 6:04 AM EDTAssociated Order(s): SCAN DOC: LAB documented in this encounter Plan of Treatment Not on file documented as of this encounter Procedures Procedure Name Priority Date/Time Associated Diagnosis Comments LAB SCAN 12/20/2012 6:04 AM EDT documented in this encounter Results * SCAN DOC: LAB (12/20/2012 6:04 AM EDT) Narrative 12/20/2012 6:04 AM EDT Procedure Note Provider, Scanning - 12/20/2012 6:04 AM EDT Scanning Provider MEDIA MGR SCAN EXT O RDR/RSLT documented in this encounter Visit Diagnoses Diagnosis Breast cancer- Primary Malignant neoplasm of breast (female), unspecified site documented in this encounter Care Teams Junior Assistant Manager Relationship Specialty Start Date End Date Spike Sierra MD [address] [place] [address] PCP - General 01/12/10 01/23/17 documented as of this encounter
--- OUTSIDE RECORDS SUMMARY | 2023-12-26 13:18 | XMS_ITS | Encounter Summary ---
Author Organization [facility] [place] [address] Care Team Providers Care Asphalt Tamping Machine Operator Name Role Phone Christine Fuentes Primary Care Provider [phone] Reason for Referral * Consultation (Routine) - Closed Specialty Diagnoses / Procedures Referred By Cherie abdul Referred To Contact Hematology and Oncology Diagnoses Breast cancer screening, high risk patient History of breast cancer Rhoda Brumfield APRN [facility] [place] [address] St Hem Onc Office [address] [place] [phone] Referral ID Status Reason Start Date Expiration Date V isits Requested Visits Authorized [id number] Closed Consult, Test & Treat 04/13/2017 04/13/2018 1 1 Reason for Visit * Reason Comments Follow Up Surgery Encounter Details Date Type Department Care Team (Late st Contact Info) Description 04/13/2017 10:45 AM EST Office [place] [address] Rhoda Brumfield APRN [facility] [place] [address] Breast cancer screening, high risk patient; History of breast cancer Social History Tobacco Use Types Packs/Day Years Used Date Smoking Tobacco: Former Cigarettes Q uit: 10/19/2011 Smokeless Tobacco: Never Sex and Gender Information Value Date Recorded Sex Assigned at Not on file Gender Identity Not on file Sexual Orientation Not on file documented as of this encounter Progress Notes * Rhoda Brumfield, MIRIAN - 04/13/2017 10:45 AM EST Ms. Marx returns to [...] Her post operative course was uneventful. She did bruise over her incision but that is better with the exception of some fullness. She denies fever or chills. On physical exam, her incision is intact,without disruption. There is resolving ecchymosis over herincision with a small, firm hematoma. Her left breast is otherwise soft,without erythema or ecchymosis.Her axilla is concave. Assessment/Plan: Doing well after left breast WLE for ADH.Small resolving hematoma, no cellulitis. We discussed risks associated with an ADH pathology To be an increase by 1% per year. We discussed high risk follow up in light of ADH pathology to include semi annual breast exams, annual mammography and consideration of a med onc referral to discuss chemo prevention. In light of herfamily and personal history we discussed genetics appt. She is interested in seeing a medical oncologist and requests a referral to Dr Stack in [facility]. She declines an appt with genetics at this time. I will make the med onc referral. We will see her back in January for a mammogram and CBE. Her PCP will Perform an alternate CBE. She agrees. documented in this encounter Plan of Treatment Scheduled Referrals Name Type Priority Associated Diagnoses Order Schedule Referral to Hematology and Oncology Outpatient Referral Routine Breast cancer screening, high risk patient History of breast cancer Ordered: 04/13/2017 documented as of this encounter Results * Mammo Screening Cad and Trev Bilateral (01/22/2018 10:07 AM EST) Anatomical Region [...] Personal history of malignant neoplasm of breast Breast cancer screening, high risk patient Screening mammogram for high-risk patient History of breast cancer Personal history of malignant neoplasm of breast documented in this encounter Care Teams Asphalt Tamping Machine Operator Relationship Specialty Start Date End Date Christine Fuentes PA [address] [place] [address] PCP - General Family Medicine 01/24/17 10/08/19 documented as of this encounter
--- OUTSIDE RECORDS SUMMARY | 2023-12-26 13:18 | XMS_ITS | Encounter Summary ---
Author Organization [facility] [place] [address] Care Team Providers Care Safety Security Officer Name Role Phone Spike Sierra MD Primary Care Provider [phone] Encounter Details Date Type Department Care Team (Late st Contact Info) Description 04/06/2010 1:30 PM EST Follow-Up Radiation Oncology at [address] [phone] Ema Fair MD [facility] [place] [address] Social History Tobacco Use Types Packs/Day Years Used Date Smoking Tobacco: Never Assessed Sex and Gender Information Value Date Recorded Sex Assigned at Not on file Gender Identity Not on file Sexual Orientation Not on file documented as of this encounter Plan of Treatment Not on file documented as of this encounter Visit Diagnoses Not on filedocumented in this encounter Care Teams Safety Security Officer Relationship Specialty Start Date End Date Spike Sierra MD [address] [place], [place] [address] PCP - General 01/12/10 01/23/17 documented as of this encounter
--- OUTSIDE RECORDS SUMMARY | 2023-12-26 13:19 | XMS_ITS | Encounter Summary ---
Author Organization [facility] [place] [address] Care Team Providers Care Secondary Spanish Teacher Name Role Phone Unavailable Primary Care Provider Unavailabl e Encounter Details Date Type Department Care Team (Latest Contact Info) Description 12/04/2009 12:05 AM EDT - 12/04/2009 11:59 PM EDT Hospital Encounter Radiology Library at [facility] [place] [phone] Spike Nicolas MD [facility] [place] [address] Discharge Disposition: Home Social History Tobacco Use [...] Comments FILM LIBRARY STORAGE ONLY MAMMO Routine 12/04/2009 12:05 AM EDT documented in this encounter Results * Film Library- Storage Only Mammo (12/04/2009 12:05 AM EDT) Narrative [facility] - 01/13/2017 9:16 AM EST This exam is for storage only and is auto-finalizing. Spike Nicolas MD G FILM LIBRARY ORD ERABLES [facility] [place] [place] documented in this encounter Visit Diagnoses Not on filedocumented in this encounter
--- OUTSIDE RECORDS SUMMARY | 2023-12-26 13:19 | XMS_ITS | Encounter Summary ---
[place] [address] Care Team Providers Care Casework Manager Name Role Phone Spike Sierra MD Primary Care Provider [phone] Encounter Details Date Type Department Care Team (Late st Contact Info) Description 03/08/2010 9:30 AM EST Office Visit [place] [address] Rad [facility] [facility] Social History Tobacco Use [...] on filedocumented in this encounter Care Teams Casework Manager Relationship Specialty Start Date End Date Spike Sierra MD [address] [place] [address] PCP - General 01/12/10 01/23/17 documented as of this encounter
--- OUTSIDE RECORDS SUMMARY | 2023-12-26 13:19 | XMS_ITS | Encounter Summary ---
Author Organization [facility] [place] [address] Care Team Providers Care Infection Preventionist Name Role Phone Unknown Primary Care Provider Unavailabl e Encounter Details Date Type Department Care Team (Late st Contact Info) Description 01/06/2010 [place] [address] Anita Valentine MD [facility] DR DIAGNOSTIC [place] [address] Social History Tobacco Use Types Packs/Day Years [...] Associated Diagnosis Comments SURGICAL PATHOLOGY REPORT Routine 01/06/2010 11:19 AM EST documented in this encounter Results * Surgical Pathology Report (01/06/2010 11:19 AM EST) Surgical Pathology Report [id number] ? Location: OPW The signing pathologist has (i) examined the relevant preparation(s) for the specimen(s) and (ii) rendered or confirmed the diagnosis(es). . ?Pathology Surgical Pathology Final Report Clinical Information Specimen Submitted: A - Right breast, stereo bx Clinical History: Calcs, coarse, low suspicion Clinical Diagnosis: Fat necrosis, FA change, CA unlikely Gross Description Specimen: ?Received in two containers. 1 - Labeled/Fixativ e: ??Right breast lesion 1 calcs, formalin. Qty/Size/Weight : ? Three needle core biopsies, ranging from ? 1.0 x 0.4 cm to 3.8 x 0.4 cm. ??Yellow and red, ? hemorrhagic, fatty. Sections/Proces sing: ?? Submitted in (A1). 2 - Labeled/Fixativ e: ??Right breast lesion 1 no calcs, formalin. Qty/Size/Weight : ? Six needle core biopsies, ranging from 2.0 x 0.6 cm ? to 4.0 x 0.5 cm. ??[employer] [place]-yellow, hemorrhagic, ? fibrofatty. Sections/Proces sing: ?? Submitted in (A2-A3). ??(T3) ??aje/SNS Microscopic Description Slides reviewed, microscopic description not recorded. Diagnosis Needle biopsies: ?Right breast. Diagnosis: ?Sclerosing papillary lesion ?Atypical ductal hyperplasia ?Benign ductal hyperplasia, cysts, apocrine metaplasia and adenosis Microcalcificat ions: ??Identified in papilloma CR-0 01/07/10 VAM 01/07/10 Verified by: ? Jose Elena MD ?Pathologist ?(Electronic Signature) The attending pathologist whose signature appears on this report has reviewed all diagnostic slides and has edited the gross and/or microscopic portion of the report in rendering the final pathologic diagnosis. [facility] 01/06/2010 11:1 9 AM EST Anita Valentine MD PATHOLOGY/CYTOLOGY O JUNG Performing Organization Address City/State/[facility] Co de Phone Number [facility] documented in this encounter Visit Diagnoses Not on filedocumented in this encounter Care Teams Infection Preventionist Relationship Specialty Start Date End Date Unknown None PCP - General 10/09/19 documented as of this encounter
--- OUTSIDE RECORDS SUMMARY | 2023-12-26 13:19 | XMS_ITS | Encounter Summary ---
Author Organization [facility] [place] [address] Care Team Providers Care Wood Boatbuilder Name Role Phone Unavailable Primary Care Provider Unavailabl e Encounter Details Date Type Department Care Team (Latest Contact Info) Description 12/04/2009 - 12/04/2009 12:04 AM EDT Hospital Encounter Radiology Library at [facility] [place] [phone] Spike Nicolas MD [facility] [address] [place] [address] Discharge Disposition: Home Social History Tobacco Use [...] FILM LIBRARY STORAGE ONLY MAMMO Routine 12/04/2009 12:00 AM EDT documented in this encounter Results * Film Library- Storage Only Mammo (12/04/2009 12:00 AM EDT) Narrative [facility] - 01/13/2017 9:15 AM EST This exam is for storage only and is auto-finalizing. Spike Nicolas MD G FILM [facility]RARY ORD [facility]LES [facility] [place] documented in this encounter Visit Diagnoses Not on filedocumented in this encounter
--- OUTSIDE RECORDS SUMMARY | 2023-12-26 13:19 | XMS_ITS | Encounter Summary ---
Author Organization [facility] [place] [address] Care Team Providers Care Pearl Technician Name Role Phone Spike Sierra MD Primary Care Provider [phone] Encounter Details Date Type Department Care Team (Late st Contact Info) Description 03/08/2010 10:00 AM EST Office Visit Radiation Oncology at [address] [phone] Ema Fair MD [facility] [place] [address] Discharge Disposition: Home Social History Tobacco Use [...] on filedocumented in this encounter Care Teams Pearl Technician Relationship Specialty Start Date End Date Spike Sierra MD [address] [place] [address] PCP - General 01/12/10 01/23/17 documented as of this encounter
--- OUTSIDE RECORDS SUMMARY | 2023-12-26 13:19 | XMS_ITS | Encounter Summary ---
[place] [address] Care Team Providers Care Tufting Creeler Name Role Phone Unavailable Primary Care Provider Unavailabl e Encounter Details Date Type Department Care Team (Late st Contact Info) Description 01/06/2010 10:00 AM EST Procedure visit [place] [address] Social History Tobacco Use Types Packs/Day Years [...]
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
--- OUTSIDE RECORDS SUMMARY | 2023-12-26 13:19 | XMS_ITS | Encounter Summary ---
Author Organization [facility] [place] [address] Care Team Providers Care Exchange Clerk Name Role Phone Unavailable Primary Care Provider Unavailabl e Encounter Details Date Type Department Care Team (Latest Contact Info) Description 12/03/2009 - 12/03/2009 11:59 PM EDT Hospital Encounter Radiology Library at [facility] [place] [address] Spike Nicolas MD [facility] [place] [address] Discharge Disposition: Home Social History Tobacco Use [...] Comments FILM LIBRARY STORAGE ONLY MAMMO Routine 12/03/2009 12:00 AM EDT documented in this encounter Results * Film Library- Storage Only Mammo (12/03/2009 12:00 AM EDT) Narrative [facility] - 01/13/2017 9:12 AM EST This exam is for storage only and is auto-finalizing. Spike Nicolas MD G FILM LIBRARY ORD ERABLES [facility] [place] documented in this encounter Visit Diagnoses Not on filedocumented in this encounter
--- OUTSIDE RECORDS SUMMARY | 2023-12-26 13:19 | XMS_ITS | Encounter Summary ---
Author Organization [facility] [place] [address] Care Team Providers Care Judge'S Clerk Name Role Phone Spike Sierra MD Primary Care Provider [phone] Encounter Details Date Type Department Care Team (Late st Contact Info) Description 01/06/2010 [place] [address] Kwasi Valentine MD [facility] [place] [address] Social History Tobacco Use Types Packs/Day Years [...] EST documented in this encounter Results * PATHOLOGY SURGICAL PATHOLOGY FINAL REPORT (01/06/2010 11:19 AM EST) Surgical Pathology Report ? [facility] ? Provider: ?? KWASI VALENTINE ?Pt. Name: ?? CECILIA MARX ? Acc #: ?[id number] ?Pt. ? Col Date: ?? 01/06/2010 ?/Sex: ?1955,(54 years),Female ? Rec Date: ?? 01/06/2010 ?LOC: ?OPW ? SURGICAL PATHOLOGY ? ---Pathologic Diagnosis--- ? Needle biopsies: ?Right breast. ? Diagnosis: ?Sclerosing papillary lesion ? Atypical ductal hyperplasia ? Benign ductal hyperplasia, cysts, apocrine metaplasia ? and adenosis ? Microcalcificat ions: ??Identified in papilloma ? CR-0 ? 01/07/10 ? VAM ? 01/07/10 Verified by: ? Ulices BANGURA, Jose Reeves ? Pathologist ? (Electronic Signature) ? The attending pathologist whose signature appears on this report has ? reviewed all diagnostic slides and has edited the gross and/or ? microscopic portion of the report in rendering the final pathologic ? diagnosis. ? ---Microscopic Description--- ? Slides reviewed, microscopic description not recorded. ? ---Gross Description--- ? Specimen: ?Received in two containers. ? 1 - Labeled/Fixativ e: ??Right breast lesion 1 calcs, formalin. ? Qty/Size/Weight : ? Three needle core biopsies, ranging from ?1.0 x 0.4 cm to 3.8 x 0.4 cm. ??Yellow and red, ?hemorrhagic, fatty. ? Sections/Proces sing: ?? Submitted in (A1). ? 2 - Labeled/Fixativ e: ??Right breast lesion 1 no calcs, formalin. ? Qty/Size/Weight : ? Six needle core biopsies, ranging from 2.0 x 0.6 cm ?to 4.0 x 0.5 cm. ??Hartrandt-yellow, hemorrhagic, ?fibrofatty. ? Sections/Proces sing: ?? Submitted in (A2-A3). ??(T3) ??aje/SNS ? ---Clinical Information--- ? Specimen Submitted: ? A - Right breast, stereo bx ? Clinical History: ? [facility] ? Provider: ?? KWASI VALENTINE ?Pt. Name: ?? CECILIA MARX ? Acc #: ?[id number] ?Pt. ? Col Date: ?? 01/06/2010 ?/Sex: ?1955,(54 years),Female ? Rec Date: ?? 01/06/2010 ?LOC: ?OPW ? SURGICAL PATHOLOGY ? Calcs, coarse, low suspicion ? Clinical Diagnosis: ? Fat necrosis, FA change, CA unlikely CERNER MILLENNIUM 01/06/2010 11:1 9 AM EST Kwasi Valentine MD PATHOLOGY/CYTOLOGY O RDERABLES [facility] documented in this encounter Visit Diagnoses Not on filedocumented in this encounter Care Teams Judge'S Clerk Relationship Specialty Start Date End Date Spike Sierra MD [address] [place] [address] PCP - General 01/12/10 01/23/17 documented as of this encounter
[2023-12-26 16:08] LABS: TSH (W/Ref FT4) 0.73 uIU/mL (0.36-3.74)
== END 2023-12-26 13:09 | disposition home or self-care (01) ==
LOC: NCHCN 13:08
PROVIDERS: PCP Family Medicine; Visit Provider Family Medicine
DX: E03.9 Hypothyroidism, unspecified (principal)
CPT/HCPCS: 84443

== ENCOUNTER 2024-02-02 00:38 | Outpatient (CLI) | payer MEDICARE, SELFPAY ==
--- OUTSIDE RECORDS SUMMARY | 2024-02-02 00:43 | XMS_ITS | Encounter Summary ---
[place] [address] Care Team Providers Care Flatwork Supervisor Name Role Phone Christine Fuentes Primary Care Provider [phone] Encounter Details Date Type Department Care Team (Late st Contact Info) Description 04/19/2019 Orders [place] [address] Christina Fay, RN Malignant neoplasm of right [...] breast documented in this encounter Care Teams Flatwork Supervisor Relationship Specialty Start Date End Date Christine Fuentes PA [address] [place] [address] PCP - General Family Medicine 01/24/17 10/08/19 documented as of this encounter
--- OUTSIDE RECORDS SUMMARY | 2024-02-02 00:43 | XMS_ITS | Encounter Summary ---
Author Organization [facility] Address [address] [place] [address] Care Team Providers Care Excellence Leader Name Role Phone Christine Fuentes PA-C Primary Care Provider + Encounter Details Date Type Department Care Team (Late st Contact Info) Description 09/01/2022 Lab Requisition [facility] Pathology & Laboratory Medicine - [address] [address] Treva De Jesus MD [address] [place] [phone] Encounter for other general examination Social History Tobacco Use Types Packs/Day Years Used Date Smoking Tobacco: Never Smokeless Tobacco: Never Alcohol Use Standard Drinks/Week Comments Yes 6 (1 standard drink = 0.6 oz pur e alcohol) Interpersonal Safety Answer Date Record ed Physically Hurt Never 09/22/2019 Verbally Threaten Not on file 09/22/2019 Comments Unknown Sex and Gender Information Value Date Recorded Sex Assigned at Not on file Legal Sex Female 17:34 EST Gender Identity Not on file Sexual Orientation [...] explore management options, if applicable. 09/02/2022 8:16 [facility] Final Diagnosis A. SKIN OF UMBILICUS, LEFT SIDE, SHAVE BIOPSY: - Seborrheic keratosis. B. SKIN OF THIGH, LEFT, SHAVE BIOPSY: - Squamous cell carcinoma, well-differentiat ed, superficially invasive, encompassed within the examined sections. 09/02/2022 8:16 [facility] Attestation By the signature below, the attending physician certifies that they have 1) personally conducted a gross and/or microscopic examination of the described specimen(s), and/or personally interpreted the results of laboratory testing of the described specimen(s), and 2) personally rendered or confirmed the above diagnosis. 09/02/2022 8:16 [facility] at 0816 Clinical History Nevus L side umbilicus, pedunculated; Neoplasm of uncertain behavior L thigh 09/02/2022 8:16 [facility] Gross Description A. Received in [...] B1. NNAMDI JONES(ASCP) 09/01/2022 11:51 09/02/2022 8:16 [facility] Performing Lab [facility] 09/02/2022 8:16 [facility] Scanned Images 09/02/2022 8:16 EDT [facility] Tissue TISSUE SPECIMEN FROM SKIN / Unknown 08/31/2022 8:30 EDT 09/01/2022 7:50 EDT Tissue specimen (specimen) SPECIMEN FROM SKIN / Unknown 08/31/2022 8:30 EDT 09/01/2022 7:50 EDT us Treva D eJesus MD PATHOLOGY ORDERABLES Final Res ult [facility] [address] [place] [address] documented in this encounter Visit Diagnoses Diagnosis Encounter for other general examination documented in this encounter Care Teams Excellence Leader Relationship Specialty Start Date End Date Christine Fuentes PA-C [address] [place] [phone] PCP - General 10/23/16 documented as of this encounter
--- OUTSIDE RECORDS SUMMARY | 2024-02-02 00:43 | XMS_ITS | Encounter Summary ---
Author Organization [facility] [place] [address] Care Team Providers Care Long Term Care Pharmacist Name Role Phone Unknown Primary Care Provider Unavailabl e Encounter Details Date Type Department Care Team (Late st Contact Info) Description 11/26/2019 11:10 AM EDT Office Visit [place] [address] Shazia Boyd, FASHION MODEL [facility] [place] [address] History of breast cancer Social History Tobacco [...] grade 0 of 4 LNs positive cells,, ER+/AL+ pTNM: ---(m)Tis N0 (AJCC) Left breast, mastectomy: [...] breast documented in this encounter Care Teams Long Term Care Pharmacist Relationship Specialty Start Date End Date Unknown None PCP - General 10/09/19 documented as of this encounter
--- OUTSIDE RECORDS SUMMARY | 2024-02-02 00:43 | XMS_ITS | Encounter Summary ---
Author Organization [facility] Address [address] [place] [address] Care Team Providers Care Community Product Specialist Name Role Phone Unknown, Provider Primary Care Provider Unava ilable Encounter Details Date Type Department Care Team (Late st Contact Info) Description 08/08/2016 Results Only [facility] [place] [phone] Sirena Tinajero, [address] [place], [place] [phone] Social History Tobacco Use Types Packs/Day Years Used Date Smoking Tobacco: Never Assessed Comments Unknown Sex and Gender Information Value [...] ? STEVE MARX ? Accession #: ? [id number] ? : ? 1955 (Age: 61) ??F [...] moderate amount of cytoplasm. ??The melanocytes show drug safety coordinator maturation. ? B-The stratum corneum is thickened [...] (ASCP) 08/09/2016 2:33 PM End of Report [facility] 08/08/2016 10:5 8 EDT 08/09/2016 10:58 EDT us Sirena Tinajero DO PATHOLOGY ORDERABLES Fi nal Result [facility] [address] [place] [address] documented in this encounter Visit Diagnoses Not on filedocumented in this encounter Care Teams Community Product Specialist Relationship Specialty Start Date End Date Unknown, Provider, PCP - General 02/02/10 10/22/16 documented as of this encounter
--- OUTSIDE RECORDS SUMMARY | 2024-02-02 00:43 | XMS_ITS | Encounter Summary ---
Author Organization [facility] Address [address] [place] [address] Care Team Providers Care Mail Teller Name Role Phone Unknown, Provider Primary Care Provider Unava ilable Encounter Details Date Type Department Care Team (Late st Contact Info) Description 12/11/2013 Results Only [facility] Laboratory Services - [facility] ([facility]) [address] [place], [place] [phone] Kayli Engel FNP [address] [place], [place] [address] Social History Tobacco Use Types Packs/Day Years [...] ? STEVE MARX ? Accession #: ? [id number] : ? 1955 (Age: 58) ??F ?Collect Date: ? 12/11/2013 Location: ? [facility] ? Receive Date: ? 12/13/2013 Provider: ?KAYLI ENGEL SUPERVISOR DIAGNOSTIC Copy to: ? Specimen/Source: ?Pap Test, Cervix/Endocervix, ThinPrep Imaging System with manual evaluation Last Menstrual Period: ? Many years ago Previous Gynecologic Pathology: ? ASC-US: Hx in 2010 ? SPECIMEN ADEQUACY ? Satisfactory for Evaluation - transformation zone component present GENERAL CATEGORIZATION ? Negative for Intraepithelial Lesion or Malignancy ? Document reviewed and electronically signed by: ? Olga Marquez, NILDA(ASCP)(IAC) ? Report Date: ??12/18/2013 11:05 End of Report [facility] 12/11/2013 12/13/2013 us Kayli Engel SUPERVISOR DIAGNOSTIC PATHOLOGY ORDERABLES Final Resul t [facility] [address] [place] [address] documented in this encounter Visit Diagnoses Not on filedocumented in this encounter Care Teams Mail Teller Relationship Specialty Start Date End Date Unknown, Provider, PCP - General 02/02/10 10/22/16 documented as of this encounter
--- OUTSIDE RECORDS SUMMARY | 2024-02-02 00:43 | XMS_ITS | Encounter Summary ---
Author Organization [facility] Address [address] [place] [address] Care Team Providers Care Lay Out Carpenter Name Role Phone Unknown, Provider Primary Care Provider Unava ilable Encounter Details Date Type Department Care Team (Late st Contact Info) Description 11/29/2010 Results Only [facility] - [facility] ([facility]) [address] [place], [place] [phone] Kayli Engel FNP [address] [place], [place] [address] Social History Tobacco Use Types Packs/Day Years [...] ? STEVE MARX ? Accession #: ? [id number] ? : ? 1955 (Age: 55) ??F ?Collect Date: ? 11/29/2010 ? Location: ? [facility] ? Receive Date: ? 11/30/2010 ? Provider: KAYLI ENGEL MICROWAVE RADIO TECHNICIAN Copy to: ? Final Report SPECIMEN ADEQUACY ? Satisfactory for Evaluation - transformation zone component present GENERAL CATEGORIZATION ? Epithelial Cell Abnormality INTERPRETATION ? Squamous Cell Abnormality - Atypical squamous cells, undetermined significance (ASC-US). EDUCATIONAL NOTES/RECOMMENDATI ONS ? [facility] recommends following the 2006 Consensus Guidelines for [...] Report [facility] 11/29/2010 11/30/2010 Kayli Engel [facility] PATHOLOGY ORDERABLES Final Resul t [facility] [address] [place] [address] documented in this encounter Visit Diagnoses Not on filedocumented in this encounter Care Teams Lay Out Carpenter Relationship Specialty Start Date End Date Unknown, Provider, PCP - General 02/02/10 10/22/16 documented as of this encounter
--- OUTSIDE RECORDS SUMMARY | 2024-02-02 00:43 | XMS_ITS | Encounter Summary ---
Author Organization [facility] Address [address] [place] [address] Care Team Providers Care Dice Person Name Role Phone Unavailable Primary Care Provider Unavailabl e Encounter Details Date Type Department Care Team (Late st Contact Info) Description 11/13/2008 Orders Only [facility] Laboratory Services - [facility] ([facility]) [address] [place], [place] [address] Kayli Engel FNP [address] [place], [place] [phone] Social History Tobacco Use Types Packs/Day Years [...] ? STEVE MARX ? Accession #: ? [id number] ? : ? 1955 (Age: 53) ??F [...] of Report ? [facility] 11/13/2008 11/14/2008 us Kayli Engel GEOINT ANALYST PATHOLOGY ORDERABLES Final Resul t [facility] [address] [place] [address] documented in this encounter Visit Diagnoses Not on filedocumented in this encounter
--- OUTSIDE RECORDS SUMMARY | 2024-02-02 00:43 | XMS_ITS | Referral Summary ---
Author Organization [facility] Address [address] [place] [address] Care Team Providers Care Groover And Turner Name Role Phone Christine Fuentes PA-C Primary Care Provider + Allergies Active Allergy Reactions Criticality Noted Date Comments Nitrofurantoin Monohyd/M-Cryst Rash 10/23 Medications LEVOTHYROXINE SODIUM (LEVOTHYROXINE ORAL) Take by mouth [...] EDT Plan of Treatment Not on file [place] [phone] Care Teams Groover And Turner Relationship Specialty Start Date End Date Christine Fuentes PA-C [address] [place] [phone] PCP - General 10/23/16
--- OUTSIDE RECORDS SUMMARY | 2024-02-02 00:43 | XMS_ITS | Encounter Summary ---
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 Hx of kidney stones Encounter Details Date Type Department Care Team (Late st Contact Info) Description 10/23/2016 16:20 EDT - 10/23/2016 19:42 EDT Emergency [facility] Emergency Department - [address] [address] Luis Orantes MD [address] [place] [address], [address] [place] [address] Emergency, MD Tolu Flank pain (Primary Dx) Discharge Disposition: Home or Self Care Social History Tobacco Use Types Packs/Day Years Used Date Smoking Tobacco: Never Smokeless Tobacco: Never Alcohol Use Standard Drinks/Week Comments Yes 6 (1 standard drink = 0.6 oz pur e alcohol) Comments Unknown Sex and Gender Information Value [...] Personal history of urinary calculi-Z87.442[ICD-10-CM] Z79.899 Other ocean transportation intermediary (current) drug therapy-Z79.899[ICD-10-CM] Z79.82 correction (current) use of aspirin-Z79.82[ICD-10-CM] Z88.3 Allergy status [...] this encounter Medications at Time of Discharge AMITRIPTYLINE HCL (AMITRIPTYLINE ORAL) Take by mouth [...] ??? 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 Hx of kidney stones HPI The patient is a 61 y.o. 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 Skin [...] onset, patient was in heated argument with [id number]. She endorses several days of subjective inability [...] Bilirubin Neg Final Ketones Neg Final Specific Rosebud 1.025 Final pH 5.5 Final Protein Neg Final Urobilinogen 0.2 Final Nitrite Neg Final Tech ID [id number] Final Relevant Data Procedures ED COURSE A medical screening exam was performed. The patient is a 61 y.o. 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 She has history of passing a [...] diagnoses: Flank pain DISPOSITION: Discharged PCP: Christine Fuenets [facility] Number of Diagnoses or Management Options new, [...] 11:35 EDT Narrative 10/25/2016 11:35 EDT [facility] - Ultrasound Exam Date: 10/23/2016 Exam Type: POCT US ARTERIAL Registry Rn: Lusi Orantes MD Attending: Luis Orantes MD Worksheet: [...] Note Luis Orantes MD - 10/25/2016 [facility] - Ultrasound Exam Date: 10/23/2016 Exam Type: POCT US ARTERIAL Registry Rn: Luis Orantes MD Attending: Luis Orantes MD [...] and interpreted by the Emergency Department Staff us Luis Orantes MD IMG POCT US ORDERABLES Fi nal Result * (ABNORMAL) POCT URINE DIPSTICK (10/23/2016 18:10 EDT) Color YELLOW 10/23/2016 18:19 [facility] Clarity, UA Clear 10/23/2016 18:19 [facility] Glucose Neg Neg 10/23/2016 18:19 [facility] Bilirubin Neg Neg 10/23/2016 18:19 [facility] Ketones Neg Neg 10/23/2016 18:19 [facility] Specific Rosebud 1.025 1.001 - 1.035 10/23/2016 18:19 [facility] Blood 2+(A) Neg 10/23/2016 18:19 [facility] pH 5.5 4.6 - 8.0 10/23/2016 18:19 [facility] Protein Neg Neg 10/23/2016 18:19 [facility] Urobilinogen 0.2 0.2 - 1.0 E.U./dl 10/23/2016 18:19 [facility] Nitrite Neg Neg 10/23/2016 18:19 [facility] Leuk Esterase Trace(A) Neg 10/23/2016 18:19 [facility] rodeo rider ID [id number] 10/23/2016 18:19 [facility] Comment:Test performed at Em ergency Department Urine specimen (specimen) URINE / Unknown 10/23/2016 18:10 EDT 10/23/2016 18:19 EDT us Luis Orantes MD POINT OF CARE TEST ORDERA BLES Final Result [facility] [address] [place] [address] * POCT US RENAL (10/23/2016 17:43 EDT) Anatomical Region Laterality Modality Other 10/23/2016 17:4 3 EDT 10/25/2016 11:34 EDT Narrative 10/25/2016 11:34 EDT [facility] - Ultrasound Exam Date: 10/23/2016 Exam Type: POCT US RENAL Registry Rn: Luis Orantes MD Attending: Luis Orantes MD [...] Note Luis Orantes MD - 10/25/2016 [facility] - Ultrasound Exam Date: 10/23/2016 Exam Type: POCT US RENAL Registry Rn: Luis Orantes MD Attending: Luis Orantes MD [...] and interpreted by the Emergency Department Staff us Luis Orantes MD IMG POCT US ORDERABLES Fi nal Result documented in this encounter Visit Diagnoses Diagnosis [...] may reflect changes made after this encounter. BUPROPION HCL ORAL Take by mouth daily. [...] 10/23/2016 documented in this encounter Care Teams Polishing Machine Tender Relationship Specialty Start Date End Date Christine Fuentes PA-C [address] [place] [phone] PCP - General 10/23/16 documented as of this encounter
--- OUTSIDE RECORDS SUMMARY | 2024-02-02 00:43 | XMS_ITS | Encounter Summary ---
Author Organization [facility] Address [address] [place] [address] Care Team Providers Care Big Data Software Engineer Name Role Phone Unavailable Primary Care Provider Unavailabl e Encounter Details Date Type Department Care Team (Late st Contact Info) Description 03/27/2006 Results Only [facility] - Maple conversion [address] [place] [address] Kayli Engel FNP [address] [place], [place] [phone] Social History Tobacco Use Types Packs/Day Years [...] Procedure Name Priority Date/Time Associated Diagnosis Comments HPV DETECTION, HIGH RISK TYPES Routine 03/27/2006 8:18 EST CYTOPATHOLOGY Routine 03/27/2006 0:00 EST documented in this encounter Results * HUMAN PAPILLOMA VIRUS DNA TEST (03/27/2006 8:18 EST) Specimen Description Cervix, ThinPrep vial [facility] Result Negative for HPV types 16, 18, 31, 33, 35, 39, 45, 51, 52, 56, 58, 59, and 68. [facility] Report Status Final [id number] [facility] 03/27/2006 8:18 EST 03/31/2006 8:18 EST us Kayli Engel ENGINEER SOILS MICROBIOLOGY - GENERAL ORDERABLE S Final Result [facility] [address] [place] [address] * CYTOPATHOLOGY (03/27/2006 0:00 EST) Pathology Report: CYTOPATHOLOGY REPORT Reports generated via electronic interface contain original data; however they are lacking the format of the original report. Caution should be taken when reading/interpreti ng unformatted reports. Name: ? JAMEL STEVE L ? Accession #: ? [id number] : ? 1955 (Age: 51) ??F ?Collect Date: ? 03/27/2006 Location: ? [facility] ? Receive Date: ? 03/29/2006 Provider: ?KAYLI ENGEL ENGINEER SOILS Copy to: ? Specimen/Source: ?ThinPrep Pap Test, Cervix/Endocervix, processed on [employer] ThinPrep Imaging System, with manual evaluation Last Menstrual Period: ? DILLON Other: ? HPVDX - HPV testing requested regardless of diagnosis on current ThinPrep Pap test. ? SPECIMEN ADEQUACY ? Satisfactory for Evaluation - transformation zone component present GENERAL CATEGORIZATION ? Negative for Intraepithelial Lesion or Malignancy ? Document reviewed and electronically signed by: ? NILDA Decker(ASCP) ? Report Date: ??03/30/2006 16:00 End of Report [facility] 03/27/2006 03/29/2006 us Kayli OSULLIVAN PATHOLOGY ORDERABLES Final Resul t [facility] [address] [place] [address] documented in this encounter Visit Diagnoses Not on filedocumented in this encounter
--- OUTSIDE RECORDS SUMMARY | 2024-02-02 00:43 | XMS_ITS | Encounter Summary ---
Author Organization [facility] Address [address] [place] [address] Care Team Providers Care Sap Gatherer Name Role Phone Unknown, Provider Primary Care Provider Unava ilable Encounter Details Date Type Department Care Team (Latest Contact Info) Description 08/08/2016 8:25 EDT - 08/08/2016 23:59 EDT Hospital Encounter [address] [address] Unknown, Provider, Discharge Disposition: Home or Self [...] on filedocumented in this encounter Care Teams Sap Gatherer Relationship Specialty Start Date End Date Unknown, Provider, PCP - General 02/02/10 10/22/16 documented as of this encounter
--- OUTSIDE RECORDS SUMMARY | 2024-02-02 00:43 | XMS_ITS | Encounter Summary ---
Author Organization [facility] Address [address] [place] [address] Care Team Providers Care Perfect Bind Machine Operator Name Role Phone Unknown, Provider Primary Care Provider Unava ilable Encounter Details Date Type Department Care Team ([facility] st Contact Info) Description 09/08/2005 Results Only [facility] - [place] conversion [address] [place] [address] Ernie Fuentes PA-C [address] [place] [address] Social History Tobacco Use Types Packs/Day Years [...] ? STEVE MARX ? Accession #: ? [id number] : ? 1955 (Age: 50) ??F ?Collect Date: ? 09/08/2005 Location: ? [facility] ? Receive Date: ? 09/13/2005 Provider: ?ERNIE COTO Copy to: ? Specimen/Source: ?ThinPrep Pap Test, Cervix/Endocervix, processed on PagerDuty ThinPrep Imaging System, with manual evaluation Last [...] intraepithelial lesion (LSIL). EDUCATIONAL NOTES/RECOMMENDATI ONS ? [facility] recommends following the 2001 Consensus Guidelines for the Management of Women with Cervical Cytological Abnormalities (UGO,2002;287:212 0-9). Management algorithms have been distributed by [facility] and are available online at www.ASCCP.org. ? Document reviewed and electronically signed by: ? PHILOMENA PEARL MD ? Report Date: ??09/15/2005 14:56 End of Report [facility] 09/08/2005 09/13/2005 us Ernie Fuentes PA-C PATHOLOGY ORDERABLES Fin al Result [facility] [address] [place] [address] documented in this encounter Visit Diagnoses Not on filedocumented in this encounter Care Teams Perfect Bind Machine Operator Relationship Specialty Start Date End Date Unknown, Provider, PCP - General 02/02/10 10/22/16 documented as of this encounter
--- OUTSIDE RECORDS SUMMARY | 2024-02-02 00:43 | XMS_ITS | Encounter Summary ---
Author Organization [facility] Address [address] [place] [address] Care Team Providers Care Field Traffic Investigator Name Role Phone Unavailable Primary Care Provider Unavailabl e Encounter Details Date Type Department Care Team (Late st Contact Info) Description 10/29/2007 Before PRISM Converted Visit ([place]) [facility] - [place] conversion [address] [place] [address] Kayli Engel FNP [address] [place], [place] [id number] Social History Tobacco Use Types Packs/Day Years [...] ? STEVE MARX ? Accession #: ? [id number] ? : ? 1955 (Age: 52) ??F [...] reviewed and electronically signed by: ? Sowmya B. Armando, SCT(ASCP) ? Report Date: ??11/01/2007 09:25 ? End of Report ? [facility] 10/29/2007 10/30/2007 us Kayli Engel EARTH MOVING TECHNICIAN PATHOLOGY ORDERABLES Final Resul t [facility] [address] [place] [address] documented in this encounter Visit Diagnoses Not on filedocumented in this encounter
--- OUTSIDE RECORDS SUMMARY | 2024-02-02 00:43 | XMS_ITS | Encounter Summary ---
Author Organization [facility] Address [address] [place] [address] Care Team Providers Care Manager Home Name Role Phone Ernie Marcos PA-C Primary Care Provider + Encounter Details Date Type Department Care Team ([facility] st Contact Info) Description 01/06/2017 Results Only [facility] [phone] Ernie Marcos PA-C [address] [place] [address] Social History Tobacco Use Types Packs/Day Years [...] ? STEVE MARX ? Accession #: ? [id number] ? : ? 1955 (Age: 61) ??F [...] and electronically signed by: ? Whitney You [facility](ASCP) ? Report ??Date: 01/20/2017 13:37 HPV with Pap Test ? Date Ordered: ? 01/20/2017 ? Status: ?? Signed Out ?Date Complete: ? 01/23/2017 ? By: ??System Interface ? Date Reported: ? 01/23/2017 ? Interpretation RESULT: Negative for HPV. No E6 or E7 mRNA is detected from HPV types 16,18,31,33,35, 39,45,51,52,56,58, 59,66, and 68 by qa engineer mediated amplification. Comments Document reviewed and electronically signed by: ? System Interface ? Report date: 01/23/2017 By the signature above, the attending physician certifies that he/she has personally conducted a gross and/or microscopic examination of the described specimens and rendered or confirmed the above diagnosis. End of Report [facility] 01/06/2017 01/10/2017 us Ernie Marcos PA-C PATHOLOGY ORDERABLES Fin al Result [facility] [address] [place] [address] documented in this encounter Visit Diagnoses Not on filedocumented in this encounter Care Teams Manager Home Relationship Specialty Start Date End Date Ernie Marcos PA-C [address] [place] [phone] PCP - General 10/23/16 documented as of this encounter
--- OUTSIDE RECORDS SUMMARY | 2024-02-02 00:43 | XMS_ITS | Encounter Summary ---
[place] [address] Care Team Providers Care Comptometrist Name Role Phone Unknown Primary Care Provider Unavailabl e Encounter Details Date Type Department Care Team (Late st Contact Info) Description 04/07/2021 [place] [phone] January Davis Social History Tobacco Use Types [...] on filedocumented in this encounter Care Teams Comptometrist Relationship Specialty Start Date End Date Unknown None PCP - General 10/09/19 documented as of this encounter
--- OUTSIDE RECORDS SUMMARY | 2024-02-02 00:43 | XMS_ITS | Encounter Summary ---
Author Organization [facility] Address [address] [place] [address] Care Team Providers Care Husker Operator Name Role Phone Unavailable Primary Care Provider Unavailabl e Encounter Details Date Type Department Care Team (Late st Contact Info) Description 01/28/2010 Results Only [facility] ([facility] [address] [place], [place] [address] Bautista Forrester, DO [address] [facility] [address] [place], [place] [id number] Social History Tobacco Use Types Packs/Day Years [...] ? STEVE MARX ? Accession #: ? [id number] ? : ? 1955 (Age: 54) ??F ?Collect Date: ? 01/28/2010 ? Location: ? [facility] ? Receive Date: ? 01/29/2010 ? Provider: CHRISTOPHER KI DO ? Copy to: KAYLI LUNDBERG ASSISTANT FRONT END MANAGER ? Final Pathologic Diagnosis: ? A. ?Breast, [...] at the intradepartmental consultation ? conference. ??(Dr. Cabrera)/mpl ? Document reviewed and electronically signed by: ? LEE S FELICITA MD ? Report ??Date: 02/03/2010 16:52 ? [...] adipose ? tissue, which is slightly fragmented. ??Radiation Therapist sections are submitted as follows: ? BLOCK [...] A20, A21 ? Level 13, lateral margin, industrial relations representative perpendicular sections ? Received in formalin labelled [...] Tissue submitted: Paraffin embedded tissue block labelled [id number] (A10) ?? from [facility] ? An immunohistochemical assay for estrogen receptors (ER1D5, Dako) and ? progesterone receptors (HtY6781, Dako) has been performed on this specimen. [...] ??performance ? characteristics have been determined by [facility]. ??This ? laboratory is certified under the Clinical Laboratory Improvement Amendments of 1988 (CLIA-88) as qualified to perform high complexity clinical laboratory ? testing. ? Document reviewed and electronically signed by: ? NARENDRA J LOBATO MD ? Report date: 02/04/2010 ? By the signature above, the attending physician certifies that he/she has ? personally conducted a gross and/or microscopic examination of the described ? specimens and rendered or confirmed the above diagnosis. ? End of Report ? [facility] 01/28/2010 01/29/2010 17: 05 EST us Franklynbobo Montezuma DO PATHOLOGY ORDERABLES Fi nal Result [facility] [address] [place] [address] documented in this encounter Visit Diagnoses Not on filedocumented in this encounter
--- OUTSIDE RECORDS SUMMARY | 2024-02-02 00:43 | XMS_ITS | Encounter Summary ---
Author Organization [facility] Address [address] [place] [address] Care Team Providers Care Franchise Development Manager Name Role Phone Christine Fuentes PA-C Primary Care Provider + Encounter Details Date Type Department Care Team (Late st Contact Info) Description 05/10/2023 Lab Requisition [facility] Pathology & Laboratory Medicine - [address] [address] Outr Resulting Lab, Provider Social History Tobacco [...] 97 - 169 ng/dL 05/10/2023 22:23 EDT [facility] Blood VENOUS BLOOD / Unknown 05/10/2023 9:05 EDT 05/10/2023 21:33 EDT us Provider Outr Resulting Lab CHEMISTRY & BLOOD GA S ORDERABLES Final Result [facility] [address] [place], [place] [phone] documented in this encounter Visit Diagnoses Not on filedocumented in this encounter Care Teams Franchise Development Manager Relationship Specialty Start Date End Date Christine Fuentes PA-C [address] [place] [phone] PCP - General 10/23/16 documented as of this encounter
--- OUTSIDE RECORDS SUMMARY | 2024-02-02 00:43 | XMS_ITS | Encounter Summary ---
Author Organization [facility] Address [address] [place] [address] Care Team Providers Care Test Center Administrator Name Role Phone Christine Fuentes PA-C Primary Care Provider + Encounter Details Date Type Department Care Team (Late st Contact Info) Description 01/22/2021 Lab Requisition [facility] Pathology & Laboratory Medicine - [address] [address] Katie Leyva MD [address] [place] [address] [address] [place], [place] [address] Encounter for other general examination Social History [...] Risk types, PCR Negative Negative 02/02/2021 11:04 [facility] Comment:No E6 or E7 mRNA is detected from HPV types 16,18,31,33,35,39,45,51,52,56,58,59,66, and 68 by what job titles mean mediated amplification. Papanicolaou smear specimen (specimen) CERVIX UTERI STRUCTURE / Unknown 01/21/2021 9:45 EST 01/28/2021 12:05 EST us Katie Leyva MD MICROBIOLOGY - GENERAL ORDERAB LES Final Result [facility] [address] [place] [address] * PAP TEST (01/21/2021 9:45 EST) Specimens A. Cervix and/or Endocervix , ThinPrep Imaging System with Manual Evaluation 02/02/2021 11:04 [facility] Specimen Adequacy Satisfactory for Evaluation - transformation zone component present 02/02/2021 11:04 [facility] General Categorization Negative for intraepithelial lesion or malignancy 02/02/2021 11:04 [facility] Attestation . 02/02/2021 11:04 [facility] at 1104 Clinical History See below 02/03/20 11:04 [facility] HPV The result for the Human Papillomavirus (HPV) Detection-High Risk Types is Negative. No E6 or E7 mRNA is detected from HPV types 16,18,31,33,35,39 ,45,51,52,56,58,5 9,66, and 68 by what job titles mean mediated amplification.Harriett ting was performed on specimen [id number] and was resulted on 02/02/2021 0921 EST by IVORY, LAB INSTRUMENT RESULTS IN 02/02/2021 11:04 [facility] Performing Lab [facility] 02/02/2021 11:04 EST [facility] Scanned Images 02/02/2021 11:04 EST [facility] Papanicolaou smear specimen (specimen) CERVIX UTERI STRUCTURE / Unknown 01/21/2021 9:45 EST 01/22/2021 13:54 EST us Katie Leyva MD PATHOLOGY ORDERABLES Final Res ult [facility] [address] [place] [address] documented in this encounter Visit Diagnoses Diagnosis Encounter for other general examination documented in this encounter Care Teams Test Center Administrator Relationship Specialty Start Date End Date Christine Fuentes PA-C [address] [place] [phone] PCP - General 10/23/16 documented as of this encounter
--- OUTSIDE RECORDS SUMMARY | 2024-02-02 00:43 | XMS_ITS | Clinical Summary ---
Author Organization [facility] Address [place] [address] Care Team Providers Care Warehouse Operations Manager Name Role Phone Unknown Primary Care Provider [...] - PCV) 2021 Covid-19 Vaccine (4 - 2023-2 5 season) 2023 12/28/2022, 11/29/2021, 12/28/2020 Influenza (Flu) vaccine (1 o f 1 - Influenza standard series) 10/22/2023 Diabetes Screening (HgbA1C o r Glucose) Discontinued 08/28/2018, 08/28/2018 Lipid Screening Discontinued 08/28/2018 Medical Devices Implanted Type Area Emergency Worker Device Identifier Shelf Expiration Date Model / Serial / Lot Breast Clip-02/02/20 17 Implanted: by Babs Duvall MD (Quantity not on file) Breast Clip Left: Breast HOLOGIC - [facility] SECURMARK FOR EVIVA TITANIUM BIOPSY SITE MARKER / / [id number] Description:cylinder Breast Clip-01/31/20 18 Implanted:12/2017 by Babs Duvall MD (Quantity not on file) Breast Clip Breast Cylinder 09/14/2018 SMARK-EVIVA- 13 / [id number] Procedures Procedure Name Priority Date/Time Associated [...] Hemoglobin A1c 5.4 4.3 - 5.6 % [facility] Comment: Reference Range: 4.3 [...] Mellitus, Diabetes Care 2013; 36: Suppl. 1, J77-92 Estimated Average Glucose 109 mg/dL [facility] Comment: eAG equivalents for HbA1c percentages: [...] into estimated average glucose values. ??Diabetes Care 2008:31(8):4141-8448. Blood specimen (specimen) 08/28/2018 10:30 AM EDT 08/28/2018 10:39 AM EDT Narrative Resulting Agency Comment Spec In Lab Nella Acevedo MD CHEMISTRY ORDERABLES [facility] [place] [address] * Lipid Panel (08/28/2018 10:30 AM EDT) Cholesterol, Total 220 mg/dL [facility] Comment: Lower Risk: <200 mg/dL Average Risk: 200-239 mg/dL Higher Risk: >qm=154 mg/dL Triglyceride 172 mg/dL [facility] Comment: Average Risk/Lower Risk: <150 mg/dL Borderline High Risk: 150-199 mg/dL High Risk: 200-499 mg/dL Very High Risk: >ls=382 mg/dL HDL Cholesterol 62 mg/dL [facility] Comment: Males: ?? Higher Risk: <40 mg/dL Females: ?? HIgher Risk: <50 mg/dL LDL Cholesterol 124 mg/dL [facility] Comment: Lowest Risk: <100 mg/dL Lower Risk: 100-129 mg/dL Borderline High Risk: 130-159 mg/dL High Risk: 160-189 mg/dL Very High Risk: >rs=754 mg/dL Cholesterol/HDL Ratio 3.5 ratio [facility] Lipid Interpretation See Note [facility] Comment: Lipid management should be guided by a patient? s ASCVD risk, goals and preferences. ACC/AHA Guidelines recommend high intensity statin if clinical ASCVD or LDL greater than or equal to 190 mg/dL. http://GeneTexurl.com/WBH-XCP-Hnjeuecwh Adults aged 40-75 with LDL 70-189 mg/dL should have their 10 year ASCVD risk estimated with the ACC/AHA ASCVD risk meat cooler http://tools.acc.org/WSEHH-Xqyu-Puibpzuda/ Statin should be discussed if risk greater [...] In Lab Nella Acevedo MD CHEMISTRY ORDERABLES [facility] [place] [address] * Mammo Screening Cad and Immanuel Bilateral [...] capacity to make decision: Yes Care Teams Warehouse Operations Manager Relationship Specialty Start Date End Date Unknown None PCP - General 10/09/19
--- OUTSIDE RECORDS SUMMARY | 2024-02-02 00:43 | XMS_ITS | Encounter Summary ---
Author Organization [facility] Address [address] [place] [address] Care Team Providers Care Face Man Name Role Phone Christine Fuentes PA-C Primary Care Provider + Encounter Details Date Type Department Care Team (Late st Contact Info) Description 04/10/2017 Results Only [facility] [phone] Luis Ivan PA-C [address] [place] [address] Social History Tobacco Use Types [...] ? STEVE MARX ? Accession #: ? [id number] ? : ? 1955 (Age: 62) ??F [...] (ASCP) 04/11/2017 5:10 PM End of Report [facility] 04/10/2017 16:0 2 EST 04/11/2017 16:02 EST us Luis COTO-Jaden PATHOLOGY ORDERABLES Sapna l Result [facility] [address] [place] [address] documented in this encounter Visit Diagnoses Not on filedocumented in this encounter Care Teams Face Man Relationship Specialty Start Date End Date Christine Fuentes PA-C [address] [place] [phone] PCP - General 10/23/16 documented as of this encounter
--- OUTSIDE RECORDS SUMMARY | 2024-02-02 00:43 | XMS_ITS | Encounter Summary ---
[place] [address] Care Team Providers Care Box Toe Maker Name Role Phone Christine Fuentes Primary Care Provider [phone] Encounter Details Date Type Department Care Team (Late st Contact Info) Description 04/19/2019 9:30 [place] [address] January Davis Social History Tobacco Use Types [...] - 04/19/2019 9:30 AM EST Cecilia Marx [id number] 1955 Referring Physician: Shazia Boyd APN Previous Fitting: [facility] 04/10/18 Insurance: of [place] Prescription: Yes Diagnoses:right breast cancer Date of [...] to her type of surgery. Delivered today:04.19.2019 [facility] Manufacture Model L/R Quantity L8030 ABC 92532-86 L 1 L8030 ABC 76556-50 R 1 Bra - Our goal is to provide adequate measurement to reach the best comfort possible for different life styles, and we determine that with our client that the bra described below are meeting her needs according to her type of surgery and life style. Delivered today: [facility] Manufacture Model L/R Quantity L8000 ABC 960-XL-BH 1 L8000 ABC 960-XL-BK 1 L8000 ABC 525-42B-WH 1 L8000 ABC 525-42B-BK 1 L8000 ABC 525-42B-BE 1 To Order:N/A Follow up: PRN Payment Info: paid $879.19 w/ CC to [employer], This will be submitted toward deductible. Retail: $100.00 for the sonia's -paid with cc to [facility]. (This was paid all in one transaction of $979.19) Delivery date: 04.19.2019 Cecilia agrees to this plan. documented in this encounter Plan of Treatment Not on file documented as of this encounter Visit Diagnoses Not on filedocumented in this encounter Care Teams Box Toe Maker Relationship Specialty Start Date End Date Christine Fuentes PA [address] [place] [address] PCP - General Family Medicine 01/24/17 10/08/19 documented as of this encounter
--- OUTSIDE RECORDS SUMMARY | 2024-02-02 00:43 | XMS_ITS | Encounter Summary ---
Author Organization [facility] Address [address] [place] [address] Care Team Providers Care Lead Technical Architect Name Role Phone Unknown, Provider Primary Care Provider Unava ilable Encounter Details Date Type Department Care Team (Late st Contact Info) Description 12/05/2011 Results Only [facility] [place] [address] [place], [place] [id number] Kayli Engel FNP [address] [place], [place] [address] Social History Tobacco Use Types Packs/Day Years [...] ? STEVE MARX ? Accession #: ? [id number] : ? 1955 (Age: 56) ??F ?Collect Date: ? 12/05/2011 Location: ? [facility] ? Receive Date: ? 12/07/2011 Provider: ?KAYLI ENGEL WORKERS COMPENSATION LEGAL SECRETARY Copy to: ? Specimen/Source: ?Pap Test, Cervix/Endocervix, [...] End of Report [facility] 12/05/2011 12/07/2011 us Kayli Engel WORKERS COMPENSATION LEGAL SECRETARY PATHOLOGY ORDERABLES Final Resul t [facility] [address] [place] [address] documented in this encounter Visit Diagnoses Not on filedocumented in this encounter Care Teams Lead Technical Architect Relationship Specialty Start Date End Date Unknown, Provider, PCP - General 02/02/10 10/22/16 documented as of this encounter
--- OUTSIDE RECORDS SUMMARY | 2024-02-02 00:43 | XMS_ITS | Encounter Summary ---
[place] [address] Care Team Providers Care Wax Molder Name Role Phone Unknown Primary Care Provider Unavailabl e Reason for Referral * Consultation (Routine) - Closed Specialty Diagnoses / Procedures Referred By Contac t Referred To Contact Neurology Diagnoses Tremor Treva De Jesus MD [address] [place] [address] [facility] [address] [place] [phone] Referral ID Status Reason Start Date Expiration Date V isits Requested Visits Authorized [id number] Closed Consult, Test & Treat PCP Updated and/or Approved 03/16/2023 03/15/2024 6 6 Encounter Details Date Type Department Care Team (Late st Contact Info) Description 03/16/2023 Transcribe Orders eDH Incoming Referrals [phone] Treva De Jesus MD [address] [place] [address] Tremor Social History Tobacco Use [...] movements documented in this encounter Care Teams Wax Molder Relationship Specialty Start Date End Date Unknown None PCP - General 10/09/19 documented as of this encounter
--- OUTSIDE RECORDS SUMMARY | 2024-02-02 00:43 | XMS_ITS | Clinical Summary ---
Author Organization [facility] Address [address] [place] [address] Care Team Providers Care Pss Delivery Professional Name Role Phone Christine Fuentes PA-C Primary [...] Last Done Comments Hepatitis C Screen 1955 Fall Risk Screening 2021 COVID-19 Vaccine (2023- season) 2023 RSV Immunization ( o r 60+ Years) (1 - 1-dose 75+ series) 2031 [place] [address] MEDICARE ACO [place] Care Teams Pss Delivery Professional Relationship Specialty Start Date End Date Christine Fuentes PA-C [address] [place] [phone] PCP - General 10/23/16
--- OUTSIDE RECORDS SUMMARY | 2024-02-02 00:43 | XMS_ITS | Encounter Summary ---
Author Organization [facility] Address [address] [place] [address] Care Team Providers Care Manager Golf Name Role Phone Christine Fuentes PA-C Primary Care Provider + Encounter Details Date Type Department Care Team (Latest Contact Info) Description 04/10/2017 9:46 EST - 04/10/2017 23:59 EST Hospital Encounter [address] [address] Unknown, Provider, MD Discharge Disposition: Home or [...] Code Departure Means Destination Home or Self Long-Term documented in this encounter Plan of Treatment Not on file documented as of this encounter Visit Diagnoses Not on filedocumented in this encounter Care Teams Manager Golf Relationship Specialty Start Date End Date Christine Fuentes PA-C [address] [place] [phone] PCP - General 10/23/16 documented as of this encounter
--- OUTSIDE RECORDS SUMMARY | 2024-02-02 00:43 | XMS_ITS | Encounter Summary ---
Author Organization [facility] Address [address] [place] [address] Care Team Providers Care Vessel Builder Name Role Phone Unavailable Primary Care Provider Unavailabl e Encounter Details Date Type Department Care Team (Late st Contact Info) Description 09/29/2005 Results Only [facility] - [place] conversion [address] [place] [address] Yasemin Selby MD [address] [place] [address] [place] [address] Social History Tobacco Use Types Packs/Day Years [...] ? STEVE MARX ? Accession #: ? [id number] ? : ? 1955 (Age: 50) ??F [...] (B) are also examined. Previous Pap smear ([id number]) was reviewed by Dr. Sally Pablo, and the presence of low grade squamous intraepithelial lesion was confirmed. However, the atypical cells seen on the Pap smear are not seen in the current cervical biopsy or endocervical curettage specimen. This case was reviewed by Dr. Sally Pablo, and was also presented at the intradepartmental consultation conference. ??(Dr. Zambrano)/[facility] Document reviewed and electronically signed by: Jameson [...] [facility] 09/29/2005 09/29/2005 10: 00 EDT us Yasemin Selby MD PATHOLOGY ORDERABLES Final Resu lt [facility] [address] [place] [address] documented in this encounter Visit Diagnoses Not on filedocumented in this encounter
--- OUTSIDE RECORDS SUMMARY | 2024-02-02 00:43 | XMS_ITS | Encounter Summary ---
Author Organization [facility] Address [address] [place] [address] Care Team Providers Care Timber Poisoner Name Role Phone Unavailable Primary Care Provider Unavailabl e Encounter Details Date Type Department Care Team (Late st Contact Info) Description 10/10/2006 Results Only [facility] conversion [address] [place] [address] Kayli Engel FNP [address] [place], [place] [id number] Social History Tobacco Use Types Packs/Day Years [...] ? STEVE MARX ? Accession #: ? [id number] : ? 1955 (Age: 51) ??F ?Collect Date: ? 10/10/2006 Location: ? [facility] ? Receive Date: ? 10/12/2006 Provider: ?KAYLI ENGEL COFFEE BREWER Copy to: ? Specimen/Source: ?ThinPrep Pap Test, Cervix/Endocervix, processed on Marco Vasco ThinPrep Imaging System, with manual evaluation Last [...] Date: ??10/18/2006 15:40 End of Report DAMON DERSA 10/10/2006 10/12/2006 us Kayli AVERYP PATHOLOGY ORDERABLES Final Resul t DAMON DERAS [address] [place] [address] documented in this encounter Visit Diagnoses Not on filedocumented in this encounter
--- OUTSIDE RECORDS SUMMARY | 2024-02-02 00:44 | XMS_ITS | Encounter Summary ---
Author Organization [facility] Address [facility] [place] [address] Care Team Providers Care Comedian Name Role Phone Christine Fuentes Primary Care Provider +1- [phone] Reason for Referral * Physical Therapy (Routine) - Specialty Diagnoses / Procedures Referred By Cherie abdul Referred To Contact Physical Therapy Diagnoses Decreased range of motion of shoulder, unspecified laterality Marla Brice MD [facility] [place] [address] Referral ID Status Reason Start Date Expiration Date V isits Requested Visits Authorized [id number] Evaluate and Treat 04/09/2018 10/06/2018 1 1 Encounter Details Date Type Department Care Team (Late st Contact Info) Description 04/09/2018 Orders [place] [address] Marla Brice MD [facility] [place] [address] Decreased range of motion of shoulder, unspecified [...] Primary documented in this encounter Care Teams Comedian Relationship Specialty Start Date End Date Christine Fuentes PA [address] [place] [address] PCP - General Family Medicine 01/24/17 10/08/19 documented as of this encounter
--- OUTSIDE RECORDS SUMMARY | 2024-02-02 00:44 | XMS_ITS | Encounter Summary ---
[place] [address] Care Team Providers Care Manager Of Clinical Name Role Phone Christine Fuentes Primary Care Provider +1- [phone] Reason for Visit * Physical Therapy (Routine) - Closed Specialty Diagnoses / Procedures Referred By Cherie abdul Referred To Contact Physical Therapy Diagnoses Breast cancer Marla Brice MD [facility] [place] [address] [facility] [place] [address] Referral ID Status Reason Start Date Expiration Date Visits Re quested Visits Authorized [id number] Closed 03/13/2018 03/13/2019 1 1 Encounter Details Date Type Department Care Team (Late st Contact Info) Description 03/30/2018 3:15 PM EST Office [place] [address] Debra Madrigal, PT [facility] PHYSICAL MEDICINE & [place] [address] Decreased ROM of right shoulder; Decreased ROM [...] Provider: Marla Brice V Primary Insurance: Payor: [employer] [place] / Plan[place] / [...] pending: none Social: , pt. 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 Full functional use [...] limbs documented in this encounter Care Teams Manager Of Clinical Relationship Specialty Start Date End Date Christine Fuentes PA [address] [place] [address] PCP - General Family Medicine 01/24/17 10/08/19 documented as of this encounter
--- OUTSIDE RECORDS SUMMARY | 2024-02-02 00:44 | XMS_ITS | Encounter Summary ---
Author Organization [facility] Address [facility] [place] [address] Care Team Providers Care Adult Education Professional Name Role Phone Christine Fuentes Primary Care Provider +1- [phone] Reason for Visit * Auth/Cert Specialty Diagnoses [...] Expiration Date Visits Re quested Visits Authorized [id number] 1 1 Encounter Details Date Type Department Care Team (Late st Contact Info) Description 03/15/2018 1:11 PM EST - 03/16/2018 11:45 AM [facility] Hospital [place] [address] Marla Zepeda MD [facility] [place] [address] Malignant neoplasm of female breast, unspecified estrogen [...] this encounter Discharge Summaries * Aleah Vigil, SENIOR PROGRAMMER - 03/16/2018 10:42 AM EST General Surgery [...] s/p partial mastectomy and RT in 2009 ([facility]). She was followed by surgeon for 5 [...] - Primary * Sera Weller MD - Resident-Electric Gas Appliances Demonstrator * Vu Angela MD - Resident-Surgeon Tonny [...] Discharge: Final Surgical Pathology pending. Studies: NM Fletcher Node Injection Breast wo Imaging (03/16): IMPRESSION Fletcher node injections performed without complication. Discharge Exam: [...] to: Home VNA: Yes Name of facility: [facility] Contact information: PHONE: [phone] Discharge Conditions/Prognosis: Stable Discharge Medications: The following [...] PM Avi Talbot MD Leb Hem Onc [facility] 03/30/2018 3:15 PM Magdalena Madrigal, PT PT Rehab [facility] Outpatient Services/Studies: Referral to Home Health - at DISCHARGE Order Comments: DOCUMENTATION FOR VNA SERVICES (INCLUDING THOSE PATIENTS WITH MEDICARE COVERAGE REQUIRING HOME VNA SERVICES AND/OR HOSPICE SERVICES) PATIENT'S LOCATION: Cecilia Marx [address] [place] [id number] (home) [phone] (cell) Denture Technician's Name: Self In discussion with the attending physician, it is certified that this patient is under their care and that they, or a Nurse Practitioner,Clinical Nurse specialist or Physician Mr Teacher who is working directly with them, had [...] program if appropriate. HOME HEALTH CARE AGENCY: [facility]. PHONE: [phone] FAX: [phone] Start of care: 24-48 hrs after discharge Please note that any additional orders needs or changes will need to be obtained from this patient's PCP: NNAMDI Nicole [address] / [place] [address] All A agencies which cover the area of patient's residence have been reviewed, either verbally stacia writing, and patient/family have chosen the home health care agency noted Question Response Notes Agency name and contact information [facility] Patient location post discharge Home What [...] than 30cc perday for 2 consecutive days. [phone] You may shower with the drains in [...] Dr. Zepeda in 2-3 weeks Please call [phone] to confirm date and time of your appointment if you do not hear from us inthe week. Call Doctor for: Worsening redness or drainage from your incision lasting longer than 5 days following surgery Any foul-smelling drainage from the incision Fevers greater than 101 degrees F Persistent nausea or vomiting (this may be related to opioid pain medications) Phone number for questions: [phone] before 5 PM weekdays [phone] after 5 PM and on weekends/holidays Future Appointments Date Time Provider Department Center 03/30/2018 1:30 PM Marla Zepeda MD Leb Surg [facility] 03/30/2018 2:00 PM Avi Talbot MD Leb Hem Onc [facility] 03/30/2018 3:15 PM Magdalena Madrigal, PT PT Rehab [facility] General Instructions None Acute Opioid Prescribing: [...] CC: NNAMDI Nicole Signed: Aleah Vigil APRN [facility] Surgical Oncology Service Team Pager #[phone] 03/16/2018 11:44 AM documented in this encounter Discharge Instructions * Patient Instructions* lAeah Vigil APRN - 03/16/2018 9:03 AM EST [...] than 30cc perday for 2 consecutive days. [phone] You may shower with the drains in [...] Dr. Zepeda in 2-3 weeks Please call [phone] to confirm date and time of your appointment if you do not hear from us inthe week. Call Doctor for: Worsening redness or drainage from your incision lasting longer than 5 days following surgery Any foul-smelling drainage from the incision Fevers greater than 101 degrees F Persistent nausea or vomiting (this may be related to opioid pain medications) Phone number for questions: [phone] before 5 PM weekdays [phone] after 5 PM and on weekends/holidays Future Appointments Date Time Provider Department Center 03/30/2018 1:30 PM Marla Zepeda MD Leb Surg [facility] 03/30/2018 2:00 PM Avi Talbot MD Leb Hem Onc [facility] 03/30/2018 3:15 PM Magdalena Madrigal, PT PT Rehab [facility] * Attachments The following attachments cannot be sent through Care Everywhere. * Surgical Drain Care (Bolivian) documented in this encounter Medications at Time [...] RN - 03/16/2018 9:46 AM EST The patient/strategic partnership representative has been provided a list of Home Health Agencies which serve their preferred geographic area. A letter describing our affiliations was reviewed with them and they were educated about their right to choose where referrals are placed. Patient requests referral to [facility] PHONE: [phone] FAX: [phone]. Expected date of discharge: 03/16/18. Referral routed to the Catalyst Manufacturing Operator for matching with agency/vendor and to provide [...] supportive. He will [facility] [place] overnight and will keep all pt belongings [...] taken out of the room to the senior front end engineer by Rachana Leary RN at 2009, verified with Noemi and lab informed at 2012. #2 right axillary node #3 left breast tissue out at 2057 and sent to the senior front end engineer at 2113 on 03/15/18, verified by Luis Womack and noemi that there were two specimens in the bag , right sentinal node and left breast tissue. Contact the patient to update him on the procedure at 2025 on 03/15/18. documented in this encounter Miscellaneous Notes * Op Note - Marla Zepeda MD - 03/16/2018 11:45 AM EST [facility] Operative Note Patient Name: Cecilia Marx : [id number] MR#: [id number] Case Date: 03/15/2018 Surgeon: Surgeon(s) and Role: * Marla Zepeda MD - Primary * Sera Weller MD - Resident-Electric Gas Appliances Demonstrator * Vu Angela MD - Resident-Surgeon Tonny [...] Operative Note Patient Name: Cecilia Marx : [id number] MR#: [id number] Case Date: 03/15/2018 Surgeon: Surgeon(s) and Role: * Marla Zepeda MD - Primary * Sera eWller MD - Resident-Electric Gas Appliances Demonstrator * Vu Angela MD - Resident-Surgeon Tonny [...] PM EST 03/15/2018 9:38 PM EST Narrative [facility] - 03/15/2018 9:38 PM EST Specimen requisition ordered. ??Separate Pathology report to follow Resulting Agency Comment Spec In Lab Marla Blue MD PATHOLOGY/CYTOLO GY ORDERABLES Performing Organization Address [facility] Co de Phone Number [facility] [place] [address] * Specimen to Pathology (03/15/2018 9:00 PM EST) AP Specimen 03/15/2018 9:00 PM EST 03/15/2018 9:37 PM EST Narrative [facility] - 03/15/2018 9:38 PM EST Specimen requisition ordered. ??Separate Pathology report to follow Resulting Agency Comment Spec In Lab Marla Blue MD PATHOLOGY/CYTOLO GY ORDERABLES Performing Organization Address [facility] Co de Phone Number [facility] [place] [address] * Specimen to Pathology (03/15/2018 8:06 PM EST) AP Specimen 03/15/2018 8:06 PM EST 03/15/2018 8:06 PM EST Narrative [facility] - 03/15/2018 8:06 PM EST Specimen requisition ordered. ??Separate Pathology report to follow Marla Blue MD PATHOLOGY/CYTOLO GY ORDERABLES Performing Organization Address [facility] Co de Phone Number [facility] [place] [address] * Surgical Pathology Report (03/15/2018 8:04 PM EST) Final Diagnosis [id number] ? [facility]; A The signing pathologist has (i) [...] ?? Uninvolved by tumor cells ?Number of Fletcher Nodes Examined: ?4 Pathologic Stage Classification (pTNM, AJCC 8th Edition) ? Primary Tumor (pT): ?? pTis (DCIS) ? Regional Lymph Nodes (pN) ?Modifier: ??(sn): Fletcher node(s) evaluated. ?Category (pN): ?? pN0 Tumor Block(s): ?? A11 CAP eCC February 2017 Agile Release ER and TN studies (performed on prior biopsy, [id number]): ER: Positive (>90%, strong) TN: Positive (50%, moderate to strong) Electronically signed by: ??Antonio BANGURA, Delon Lewis Verified: ??03/22/2018 ?Pathologist Performed at: ??-[facility] Dept. of Pathology, [place], [place] . DISCUSSION An admixture of atypical [...] is blue, deep is black. Sections/Processi ng: Procurement Agent sections in 22 cassettes as follows: ? [...] 2.5 cm. . SPECIMEN PROCESSING Sections/Processi ng: ??Procurement Agent sections in 6 cassettes as follows: ? [...] noted. Ink Designation: Deep/black; superficial/blue. Sections/Processi ng: Procurement Agent sections in 12 cassettes as follows: ? C1: ? Nipple ? C2: ? Base of nipple ? C3-C4: ?Procurement Agent upper outer quadrant ? C5-C6: ?Procurement Agent lower inner quadrant ? C7-C8: ?Procurement Agent central ? C9-C10: ?? Procurement Agent upper inner quadrant ? C11-C12: ??Procurement Agent lower inner quadrant Ischemic Time: 0.8 hours ??pps 03/22/2018 4:03 PM EST [facility] BREAST STRUCTURE / Unknown 03/15/2018 8:04 PM EST 03/15/2018 8:04 PM EST SENTINEL LYMPH NODE / Unknown 03/15/2018 8:04 PM EST 03/15/2018 8:04 PM EST BREAST STRUCTURE / Unknown 03/15/2018 8:04 PM EST 03/15/2018 8:04 PM EST Marla Blue MD PATHOLOGY/CYTOLO GY ORDERABLES Performing Organization Address City/State/[facility] Co de Phone Number [facility] [place] [address] documented in this encounter Visit Diagnoses Diagnosis [...] Unit) documented in this encounter Care Teams Adult Education Professional Relationship Specialty Start Date End Date Christine Fuentes PA [address] [place] [address] PCP - General Family Medicine 01/24/17 10/08/19 documented as of this encounter
--- OUTSIDE RECORDS SUMMARY | 2024-02-02 00:44 | XMS_ITS | Encounter Summary ---
Author Organization [facility] [place] [address] Care Team Providers Care Hyperion Essbase Developer Name Role Phone Christine Fuentes Primary Care Provider +1- [phone] Encounter Details Date Type Department Care Team (Late st Contact Info) Description 03/18/2018 Telephone [place] [address] Nick Hodges MD [facility] [place] [address] Social History Tobacco Use Types Packs/Day Years [...] on filedocumented in this encounter Care Teams Hyperion Essbase Developer Relationship Specialty Start Date End Date Christine Fuentes PA [address] [place] [address] PCP - General Family Medicine 01/24/17 10/08/19 documented as of this encounter
--- OUTSIDE RECORDS SUMMARY | 2024-02-02 00:44 | XMS_ITS | Encounter Summary ---
Author Organization [facility] [place] [address] Care Team Providers Care Flight Paramedic Name Role Phone Christine Fuentes Primary Care Provider +1- [phone] Reason for Visit * Auth/Cert Specialty Diagnoses [...] Expiration Date Visits Re quested Visits Authorized [id number] 1 1 Encounter Details Date Type Department Care Team (Late st Contact Info) Description 03/15/2018 6:13 PM EST Anesthesia [place] [address] Zhou De Jesus MD [facility] [place] [address] Natty Henriquez MD [facility] [place] [address] Anesthesia Record Procedure Summary Procedure Name Responsible [...] Removal Time: 214203/15/18 1829 by Francisca Olmos, HAND TIER 03/15/18 2143 by Sanjuana Loja CRNA Incision 03/15/18; 184; sarah st; 10/18/21 (LDA cleanup utility RA#[id number]); 1715 (LDA cleanup utility RA#[id number]) 03/15/18 1841 by Lilliam Gill RN 10/18/21 171 by Glen Muro (RETIRED) Peripheral IV Line - Single Lumen 03/15/18; 185; metacarpal vein (top of hand), left; rjzt-hqz-scycdu catheter system; 20 gauge; 03/16/18; 1121 03/15/18 185 by Francisca Olmos, HAND TIER 03/16/18 112 by Teresa Johnson RN documented [...] Jesus MD - 03/15/2018 11:23 PM EST [facility] Department of Anesthesiology Post-procedure Note Patient: Cecilia Marx Procedure Summary Date: 03/15/18 Room / Location: [address] MAIN OR Anesthesia Start: 1812 Anesthesia [...] David Weston MD; Zhou De Jesus MD HAND TIER: Sanjuana Loja CRNA Student Nurse Fiscal Manager: Francisca Olmos Vitals Value Taken Time BP 129/87 03/15/2018 11:15 PM Temp 36.8 ??C (98.2 ??F) 03/15/2018 11:15 PM Pulse 95 03/15/2018 11:15 PM Resp 16 03/15/2018 11:15 PM SpO2 97 % 03/15/2018 11:17 PM Pain Level 5 03/15/2018 10:52 PM Vitals shown include unvalidated device data. Patient Location: PACU/[facility] Level of Consciousness: Awake and Alert [...] and mask, cap, sterile gloves, hand hygeine R-osyhp-vxafg 21 10 cm Ultrasound Guided: Live and [...] Single-shot BUpivacaine 0.25%, 40 mL no complications Resident/HAND TIER:: Spike Miranda DO Attending Physician:: Liza, Zhou [...] Brice MD at [facility] O[facility] Social History Tobacco Use ??? [...] risks discussed with patient. Plan discussed with HAND TIER. PAT Staff Note documented in this encounter [...] and mask, cap, sterile gloves, hand hygeine C-biiqa-wiqfn 21 10 cm Ultrasound Guided: ??Live and [...] BUpivacaine 0.25%, 40 mL no complications ?? Resident/HAND TIER:: ??Spike Miranda, Attending Physician:: ??Zhou De Jesus MD 20cc 0.25% infiltrated each side. 10cc for PEC 1 block and 10cc for PEC 2 block. Zhou De Jesus MD DISTRIBUTOR SALES CONSULTANT [facility] documented in this encounter Visit Diagnoses [...] patch documented in this encounter Care Teams Flight Paramedic Relationship Specialty Start Date End Date Christine Fuentes PA [address] [place] [address] PCP - General Family Medicine 01/24/17 10/08/19 documented as of this encounter
--- OUTSIDE RECORDS SUMMARY | 2024-02-02 00:44 | XMS_ITS | Encounter Summary ---
Author Organization [facility] Address [facility] [place] [address] Care Team Providers Care Ethologist Name Role Phone Christine Fuentes Primary Care Provider +1- [phone] Reason for Visit * Reason Comments GI Problem * Consultation (Routine) - Specialty Diagnoses / Procedures Referred By Cherie abdul Referred To Contact Gastroenterology Diagnoses abdominal pain, fatty liver Procedures consult Christine Fuentes PA [address] [place] [address] Concetta Adan MD [facility] [place] [address] Referral ID Status Reason Start Date Expiration Date V isits Requested Visits Authorized [id number] 07/26/2018 07/26/2019 1 1 Encounter Details Date Type Department Care Team (Late st Contact Info) Description 08/28/2018 8:30 AM EDT Office Visit [place] [address] Bautista Mcgrath MD [facility] [place] [address] Fatty liver; Irritable bowel syndrome, unspecified type [...] Bautista Mcgrath - 08/28/2018 8:30 AM EDT [facility] Division of Gastroenterology and Hepatology Outpatient Consultation [...] evaluated once by a GI doctor in [place] where she w as diagnosed with a [...] Stereotactic Biopsy Right 01/30/2018 Babs Duvall MD [facility] RAD MAMMOGRAPHY ??? PRO BX/REMV, LYMPH NODE, DEEP AXILL Right 03/15/2018 BIOPSY OR EXCISION OF LYMPH NODE(S), OPEN, DEEP AXILLARY NODE(S) (WRVU 6.43) performed by Marla Brice MD at [facility] MAIN OR ??? PRO EXCISE BREAST LES W XRAY MARKER Left 03/30/2017 EXCISION LESION, BREAST W/ PREOP.MARKER (NEEDLE LOC.) (WRVU 6.69) performed by Marla Brice MD at [facility] OSC ??? PRO INTRAOP SENTINEL LYMPH ID W/DYE INJECTION Right 03/15/2018 INTRAOPERATIVE ID (MAPPING) SENTINEL LYMPH NODE,INCLUDES INJECTION (WRVU 2.5) performed by Marla Brice MD at [facility] MAIN OR ??? PRO MASTECTOMY, SIMPLE, COMPLETE Bilateral 03/15/2018 MASTECTOMY, SIMPLE, COMPLETE-CARITO (WRVU 15.85) performed by Marla Brice MD at [facility] MAIN OR -- section x 2 [...] limit carbohydrates. Her other symptoms fit the [place] IV criteria for irritable bowel syndrome based [...] Mcgrath MD Fellow in Gastroenterology and Hepatology [place] [id number] P: [phone] F: [phone] CC NNAMDI Nicole [address] [place] [address] * Nella Acevedo MD - 08/28/2018 8:30 [...] Acevedo MD Section of Gastroenterology & Hepatology [address] [place], [place] [id number] documented in this encounter Procedure Notes * Nella Acevedo MD - 08/28/2018 8:30 AM EDTAssociated Order(s): FIBROSCAN Procedure(s): FIBROSCAN Pre-Procedure Diagnose(s): Fatty liver [facility] Liver Fibrosis Assessment Report Indication: Fatty liver on imaging Performed by: Nella Acevedo MD Procedure: Vibration Controlled Transient Elastography (VCTE) or Fibroscan [place] Protocol: Patient's identity, procedure and site were [...] Routine 08/28/2018 10:30 AM EDT Fatty liver [id number] Routine 08/28/2018 8:30 AM EDT Fatty liver documented in this encounter Results * Iron and TIBC (08/28/2018 10:30 AM EDT) Iron 118 30 - 150 mcg/dL [facility] TIBC 342 250 - 450 mcg/dL [facility] Iron Saturation 35 20 - 50 % [facility] Blood specimen (specimen) Venous Draw / Unknown 08/28/2018 10:30 AM EDT 08/28/2018 1:12 PM EDT Narrative Resulting Agency Comment Spec In Lab Bautista Mcgrath MD CHEMISTRY ORDERAB LES [facility] [place] [address] * Differential, Automated (08/28/2018 10:30 AM EDT) Neutrophil % 44.8 % [facility] Neutrophil Absolute 2.50 1.70 - 6.10 x10(3)/[facility] Lymph % 43.9 % [facility] Lymphocytes Abs 2.4 0.9 - 3.2 x10(3)/[facility] Monocyte % 7.7 % [facility] Monocyte Abs 0.4 0.3 - 0.9 x10(3)/[facility] Eos % 2.3 % [facility] Eosinophils Abs 0.1 0.0 - 0.4 x10(3)/[facility] Basophil % 0.9 % [facility] Baso Absolute 0.0 0.0 - 0.1 x10(3)/[facility] Immature Gran % 0.40 % [facility] Comment: Immature granulocytes(IG's)percentage and absolute count will include metamyelocytes, myelocytes, and promyelocytes. Blood smears from CBCs yielding IG's will be scanned manually for concordance. If this scan disagrees with the automated IG or if promyelocytes are noted, a manual differential will be performed. Immature Gran Absolute 0.02 0.00 - 0.04 x10(3)/[facility] Blood specimen (specimen) 08/28/2018 10:30 AM EDT 08/28/2018 10:39 AM EDT Narrative Resulting Agency Comment Spec In Lab Bautista Mcgrath MD HEMATOLOGY ORDERA BLES [facility] [place] [address] * (ABNORMAL) Hemogram (08/28/2018 10:30 AM EDT) White Blood Cell 5.6 4.0 - 9.5 x10(3)/[facility] Red Blood Cell 4.68 4.00 - 5.21 x10(6)/[facility] Hemoglobin 13.7 11.7 - 15.5 gm/dL [facility] Hematocrit 42.8 35.7 - 45.8 % [facility] Mean Cell Volume 91.5 82.6 - 94.4 fL [facility] Mean Cell Hemoglobin 29.3 27.1 - 32.0 pg [facility] Mean Cell Hemoglobin Concentration 32.0 31.7 - 35.0 gm/dL [facility] Platelet 229 145 - 357 x10(3)/mc L [facility] RDW Standard Deviation 50.4(H) 37.0 - 46.0 fL [facility] RDW coefficient of variation 14.9(H) 11.5 - 14.1 % [facility] Mean Platelet Volume 10.5 7.6 - 12.9 fL [facility] NRBC% auto 0.0 % [facility] NRBC Absolute 0.000 0.000 - 0.000 x10(3)/mc L [facility] Blood specimen (specimen) 08/28/2018 10:30 AM EDT 08/28/2018 10:39 AM EDT Narrative Resulting Agency Comment Spec In Lab Bautista Mcgrath MD HEMATOLOGY ORDERA BLES [facility] [place] [address] * Prothrombin Time (08/28/2018 10:30 AM EDT) Prothrombin Time 11.1 9.4 - 12.5 sec [facility] International Normalization Ratio 1.0 [facility] Comment: An [...] Lab Nella Acevedo MD HEMATOLOGY ORDERABLE S [facility] [place] [address] * Lipid Panel (08/28/2018 10:30 AM EDT) Cholesterol, Total 220 mg/dL [facility] Comment: Lower Risk: <200 mg/dL Average Risk: 200-239 mg/dL Higher Risk: >jd=522 mg/dL Triglyceride 172 mg/dL [facility] Comment: Average Risk/Lower Risk: <150 mg/dL Borderline High Risk: 150-199 mg/dL High Risk: 200-499 mg/dL Very High Risk: >rq=235 mg/dL HDL Cholesterol 62 mg/dL [facility] Comment: Males: ?? Higher Risk: <40 mg/dL Females: ?? HIgher Risk: <50 mg/dL LDL Cholesterol 124 mg/dL [facility] Comment: Lowest Risk: <100 mg/dL Lower Risk: 100-129 mg/dL Borderline High Risk: 130-159 mg/dL High Risk: 160-189 mg/dL Very High Risk: >tp=322 mg/dL Cholesterol/HDL Ratio 3.5 ratio [facility] Lipid Interpretation See Note [facility] Comment: Lipid management should be guided by a patient? s ASCVD risk, goals and preferences. ACC/AHA Guidelines recommend high intensity statin if clinical ASCVD or LDL greater than or equal to 190 mg/dL. http://tinyurl.com/XHD-XYN-Istdkwxgk Adults aged 40-75 with LDL 70-189 mg/dL should have their 10 year ASCVD risk estimated with the ACC/AHA ASCVD risk auto body repair estimator http://tools.acc.org/MRNHS-Ugch-Wnlppofbn/ Statin should be discussed if risk greater [...] In Lab Nella Acevedo MD CHEMISTRY ORDERABLES [facility] [place] [address] * Hemoglobin A1c (08/28/2018 10:30 AM EDT) Hemoglobin A1c 5.4 4.3 - 5.6 % [facility] Comment: Reference Range: 4.3 - [...] Mellitus, Diabetes Care 2013; 36: Suppl. 1, D37-64 Estimated Average Glucose 109 mg/dL [facility] Comment: eAG equivalents for HbA1c [...] into estimated average glucose values. ??Diabetes Care 2008:31(8):2203-9510. Blood specimen (specimen) 08/28/2018 10:30 AM EDT 08/28/2018 10:39 AM EDT Narrative Resulting Agency Comment Spec In Lab Nella Acevedo MD CHEMISTRY ORDERABLES [facility] [place] [address] * (ABNORMAL) Basic Metabolic Panel (non-fasting) (08/28/2018 10:30 AM EDT) Glucose 102 65 - 199 mg/dL [facility] Comment:Diabetes: >=200 mg/d L plus symptoms Blood Urea Nitrogen 21(H) 8 - 18 mg/dL [facility] Creatinine 0.93 0.70 - 1.20 mg/dL [facility] Sodium 142 135 - 145 mmol/L [facility] Potassium 4.5 3.5 - 5.0 mmol/L [facility] Comment: Please note: ??Patients with WBC >100,000 may have falsely elevated Potassium levels. ??For accurate Potassium quantification in these patients send serum separator tube (gold top) for subsequent determinations. ??Contact the Clinical Chemistry Laboratory if there are any questions. Chloride 107 98 - 107 mmol/L [facility] Carbon Dioxide 22 22 - 31 mmol/L [facility] Anion Gap 13 5 - 15 mmol/L [facility] Calcium 9.3 8.5 - 10.5 mg/dL [facility] Est Glomerular Filtration Rate 66 >=60 mL/min/1. 73 m?? [facility] Comment: The eGFR was calculated using the CKD-EPI equation. As with all creatinine based estimates of kidney function, eGFR values calculated with the CKD-EPI equation are not accurate in patients with acute kidney failure, extremes of body mass or the acutely ill. http://Gidsy/[facility] eGFR 76 >=60 mL/min/1. 73 m?? [facility] Comment: The eGFR was calculated using the CKD-EPI equation. As with all creatinine based estimates of kidney function, eGFR values calculated with the CKD-EPI equation are not accurate in patients with acute kidney failure, extremes of body mass or the acutely ill. http://Gidsy/[facility]LE[facility] Blood specimen (specimen) 08/28/2018 10:30 AM EDT 08/28/2018 10:39 AM EDT Narrative Resulting Agency Comment Spec In Lab Nella Acevedo MD CHEMISTRY ORDERABLES Performing Organization Address [facility] Co de Phone Number [facility] [place] [address] * (ABNORMAL) Hepatic Function Panel (08/28/2018 10:30 AM EDT) Protein, Total 7.7 6.1 - 8.0 gm/dL [facility] Albumin 4.3 3.2 - 5.2 gm/dL [facility] Aspartate Aminotransferase 31(H) 0 - 30 unit/L [facility] Alanine Aminotransferase 33(H) 0 - 30 unit/L [facility] Alkaline Phosphatase 74 40 - 104 unit/L [facility] Bilirubin, Total 0.4 0.2 - 1.3 mg/dL [facility] Bilirubin, Direct 0.1 0.0 - 0.3 mg/dL [facility] Blood specimen (specimen) 08/28/2018 10:30 AM EDT 08/28/2018 10:39 AM EDT Narrative Resulting Agency Comment Spec In Lab Nella Acevedo MD CHEMISTRY ORDERABLES Performing Organization Address City/[facility] Co de Phone Number [facility] [place] [address] * [id number] (08/28/2018 8:30 AM EDT) Bautista Pendleton - 08/28/2018 8:30 AM EDT Nella Acevedo MD ? 08/28/2018 ??1:08 PM [facility] Liver Fibrosis Assessment Report Indication: ??Fatty liver on imaging Performed by: ??Nella Acevedo MD Procedure: Vibration Controlled Transient Elastography (VCTE) or Fibroscan [place] Protocol: Patient's identity, procedure and site were [...] type documented in this encounter Care Teams Ethologist Relationship Specialty Start Date End Date Christine Fuentes PA [address] [place] [address] PCP - General Family Medicine 01/24/17 10/08/19 documented as of this encounter
--- OUTSIDE RECORDS SUMMARY | 2024-02-02 00:44 | XMS_ITS | Encounter Summary ---
[place] [address] Care Team Providers Care Polisher Eyeglass Frames Name Role Phone Christine Fuentes Primary Care Provider +1- [phone] Encounter Details Date Type Department Care Team (Late st Contact Info) Description 03/12/2018 Telephone Hematology [place] [address] Kiersten Wilson RN Social History Tobacco Use [...] that she will undergo root canal (in [facility]) on 03/13. She has been on penicillin and Tylenol for pain for toothache since 03/10. She is aware [facility] will schedule her post operative appts. with Dr. Brice, a medical oncologist, and PT. Cecilia has our contact numbers. documented in this encounter Plan of Treatment Not on file documented as of this encounter Visit Diagnoses Not on filedocumented in this encounter Care Teams Polisher Eyeglass Frames Relationship Specialty Start Date End Date Christine Fuentes PA [address] [place] [address] PCP - General Family Medicine 01/24/17 10/08/19 documented as of this encounter
--- OUTSIDE RECORDS SUMMARY | 2024-02-02 00:44 | XMS_ITS | Encounter Summary ---
Author Organization [place] [address] Care Team Providers Care Reporting Lead Name Role Phone Christine Fuentes Primary Care Provider +1- [phone] Encounter Details Date Type Department Care Team (Late st Contact Info) Description 02/21/2018 Notes [place] [address] Olga Guan MSW Social History Tobacco Use Types Packs/Day Years Used Date Smoking Tobacco: Former Cigarettes Q uit: 10/19/2011 Smokeless Tobacco: Never Sex and Gender Information Value Date Recorded Sex Assigned at Not on file Gender Identity Not on file Sexual Orientation Not on file documented as of this encounter Progress Notes * Olga Guan MSW - 02/21/2018 2:32 PM EST [facility] met briefly with pt and introduced myself and explained my role in the breast program. Pt had an appt with the genetic counseling program and was not available to meet. I gave pt my contact information and encouraged her to call with any questions or concerns. P- [facility] will Continue to provide support and resources. documented in this encounter Plan of Treatment Not on file documented as of this encounter Visit Diagnoses Not on filedocumented in this encounter Care Teams Reporting Lead Relationship Specialty Start Date End Date Christine Fuentes PA [address] [place] [address] PCP - General Family Medicine 01/24/17 10/08/19 documented as of this encounter
--- OUTSIDE RECORDS SUMMARY | 2024-02-02 00:44 | XMS_ITS | Encounter Summary ---
Author Organization [facility] [place] [address] Care Team Providers Care Senior Formulation Scientist Name Role Phone Christine Fuentes Primary Care Provider +1- [phone] Reason for Referral * Diagnostic Test (Routine) - Closed Specialty Diagnoses / Procedures Referred By Cherie abdul Referred To Contact Radiology Diagnoses Malignant neoplasm of right breast in female, estrogen receptor positive, unspecified site of breast Procedures MRI Breast wwo Contrast Marla Pearce MD [facility] [place] [address] [place] [address] Referral ID Status Reason Start Date Expiration Date V isits Requested Visits Authorized [id number] Closed Specialty Service Requested 02/10/2018 04/10/2018 1 1 Encounter Details Date Type Department Care Team (Late st Contact Info) Description 02/01/2018 Orders [place] [address] Marla Brice MD [facility] [place] [address] Malignant neoplasm of right breast in female, [...] contrast enhancement curve analysis was performed, using OrangeSlyce software. COMPARISON STUDIES: Compared and/or correlated with [...] contrast enhancement curve analysis was performed, using OrangeSlyce software. COMPARISON STUDIES: Compared and/or correlated with [...] breast documented in this encounter Care Teams Senior Formulation Scientist Relationship Specialty Start Date End Date Christine Fuentes PA [address] [place] [address] PCP - General Family Medicine 01/24/17 10/08/19 documented as of this encounter
--- OUTSIDE RECORDS SUMMARY | 2024-02-02 00:44 | XMS_ITS | Encounter Summary ---
[place] [address] Care Team Providers Care Servomechanism Assembler Name Role Phone Christine Fuentes Primary Care Provider +1- [phone] Reason for Referral * Diagnostic Test (Routine) - Closed Specialty Diagnoses / Procedures Referred By Contac t Referred To Contact Radiology Diagnoses Ductal carcinoma in situ (DCIS) of right breast Procedures NM [place] Node Injection Breast Marla Reed MD [facility] [place] [address] [place] [address] Referral ID Status Reason Start Date Expiration Date V isits Requested Visits Authorized [id number] Closed Specialty Service Requested 02/23/2018 02/23/2019 1 1 Reason for Visit * Diagnostic Test (Routine) - Closed Specialty Diagnoses / Procedures Referred By Contac t Referred To Contact Radiology Diagnoses Ductal carcinoma in situ (DCIS) of right breast Procedures NM [place] Node Injection Breast Marla Reed MD [facility] [place] [address] [place] [address] Referral ID Status Reason Start Date Expiration Date V isits Requested Visits Authorized [id number] Closed Specialty Service Requested 02/23/2018 02/23/2019 1 1 Encounter Details Date Type Department Care Team (Late st Contact Info) Description 03/15/2018 12:28 PM EST - 03/15/2018 1:10 PM [facility] Hospital Encounter [place] [address] Marla Brice MD [facility] [place] [address] Ductal carcinoma in situ (DCIS) of right [...] documented in this encounter Results * NM [place] Node Injection Breast wo Imaging (03/15/2018 1:11 PM EST) Anatomical Region Laterality Modality Nuclear Medicine Impressions 03/15/2018 1:50 PM EST Bruington node injections performed without complication. Thank you for letting us participate in the care of this patient. For questions regarding this report, please contact the number below. ? Electronically signed by: Aleksandar Ibanez [facility] ([phone]), at 03/15/2018 1:50 PM Narrative 03/15/2018 1:50 [...] patient left the department ingood condition. IMPRESSION Bru[place] node injections performed without complication. Thank you [...] mCi documented in this encounter Care Teams Servomechanism Assembler Relationship Specialty Start Date End Date Christine Fuentes PA [address] [place] [address] PCP - General Family Medicine 01/24/17 10/08/19 documented as of this encounter
--- OUTSIDE RECORDS SUMMARY | 2024-02-02 00:44 | XMS_ITS | Encounter Summary ---
Author Organization [facility] [place] [address] Care Team Providers Care Talent Acquisition Administrator Name Role Phone Christine Fuentes Primary Care Provider +1- [phone] Reason for Visit * Reason Comments Genetic Evaluation DCIS and fam hx of b reast cancer * Consultation (Urgent) - Closed Specialty Diagnoses / Procedures Referred By Cherie abdul Referred To Contact Hematology and Oncology Diagnoses Hormone receptor positive malignant neoplasm of breast, unspecified laterality Marla Brice MD [facility] [place] [address] [facility] Hem [address]c [address] [place] [address] Referral ID Status Reason Start Date Expiration Date V isits Requested Visits Authorized [id number] Closed Consult, Test & Treat 02/02/2018 02/02/2019 1 1 Encounter Details Date Type Department Care Team (Late st Contact Info) Description 02/21/2018 1:00 PM EST Office Visit Hematology [place] [address] Domenica Lama, [facility] HEMATOLOGY/[place] [address] Ductal carcinoma in situ (DCIS) [...] Marx was seen by Lazara Lama [facility] in consultation at the request of [...] (grandmother's sister) 45 Maternal ethnic background is Sweetie. Paternal ethnic background is unknown. Genetic risk [...] sample was drawn today and sent to [employer]. ?? The results of the STAT panel [...] (02/21/2018 2:11 PM EST) Research Venipuncture Complete [facility] Blood specimen (specimen) 02/21/2018 2:11 PM EST 02/21/2018 2:18 PM EST Narrative Resulting Agency Comment Spec In Lab Avi Talbot MD CHEMISTRY ORDERABLES [facility] [place] [address] documented in this encounter Visit Diagnoses Diagnosis Ductal carcinoma in situ (DCIS) of breast, unspecified laterality Family history of malignant neoplasm of breast documented in this encounter Care Teams Talent Acquisition Administrator Relationship Specialty Start Date End Date Christine Fuentes PA [address] [place] [address] PCP - General Family Medicine 01/24/17 10/08/19 documented as of this encounter
--- OUTSIDE RECORDS SUMMARY | 2024-02-02 00:44 | XMS_ITS | Encounter Summary ---
Author Organization [facility] [place] [address] Care Team Providers Care Log Hooker Name Role Phone Christine Fuentes Primary Care Provider +1- [phone] Encounter Details Date Type Department Care Team (Late st Contact Info) Description 03/01/2018 Orders Only [place] [address] Aliyah Connors, OUTCOMES MANAGER [facility] [place] [address] Research subject (Primary Dx) Social History Tobacco [...] children documented in this encounter Care Teams Log Hooker Relationship Specialty Start Date End Date Christine Fuentes PA [address] [place] [address] PCP - General Family Medicine 01/24/17 10/08/19 documented as of this encounter
--- OUTSIDE RECORDS SUMMARY | 2024-02-02 00:44 | XMS_ITS | Encounter Summary ---
Author Organization [facility] [place] [address] Care Team Providers Care Case Manager Name Role Phone Christine Fuentes Primary Care Provider +1- [phone] Encounter Details Date Type Department Care Team (Late st Contact Info) Description 04/30/2018 Telephone [place] [address] Chantelle Foote RN Social History Tobacco Use [...] General Surgery Nurses line. Cecilia lives in [place], [place]. She [...] go locally or she can come to [facility]. She notes some times wearing the bra can put pressure on the healing areas increasing irritation. I called Cecilia back and let her know all of this information, she agrees with the plan. I will share this note with Cecilia's primary care provider also. Delon Tyson MD routed this conversation to Marla Brice MD ??? [facility] Delon Tyson MD ?? 04/29/18 11:55 AM [...] ?? Robert Tyson Vascular Surgery, PGY3 Pager #[phone] documented in this encounter Plan of Treatment Not on file documented as of this encounter Visit Diagnoses Not on filedocumented in this encounter Care Teams Case Manager Relationship Specialty Start Date End Date Christine Fuentes PA [address] [place] [address] PCP - General Family Medicine 01/24/17 10/08/19 documented as of this encounter
--- OUTSIDE RECORDS SUMMARY | 2024-02-02 00:44 | XMS_ITS | Encounter Summary ---
Author Organization [facility] Address [facility] [place] [address] Care Team Providers Care Director Of Environmental Services Name Role Phone Christine Fuentes Primary Care Provider +1- [phone] Reason for Visit * Reason Comments Follow-up Encounter Details Date Type Department Care Team (Late st Contact Info) Description 03/30/2018 1:30 PM EST Office [place] [address] Marla Brice MD [facility] [place] [address] Ductal carcinoma in situ (DCIS) of right [...] Brice MD - 03/30/2018 1:30 PM EST [facility] Breast [facility] Surgical Oncology Postop Visit Reason for Visit: Cecilia Marx returns for postoperative visit. s/p bilateral mastectomy and right SLNB Breast Cancer Summary Right breast DCIS s/p bilateral mastectomy (no recon) and right SLNB Date: 03/15/18 5 cm, intermediate grade 0 of 4 LNs positive cells,, ER+/CA+ pTNM: ---(m)Tis N0 (AJCC) RIght breast DCIS s/p partial mastectomy and RT in 2009 ([facility]) Left breast, mastectomy: - Focal atypical lobular [...] 6 months for CBE with Barbara Brumfield MOLD DESIGNER - drains to be removed today - physical therapy Marla Brice MD Surgical Oncology documented in this encounter Plan of Treatment Not on file documented as of this encounter Visit Diagnoses Diagnosis Ductal carcinoma in situ (DCIS) of right breast documented in this encounter Care Teams Director Of Environmental Services Relationship Specialty Start Date End Date Christine Fuentes PA [address] [place] [address] PCP - General Family Medicine 01/24/17 10/08/19 documented as of this encounter
--- OUTSIDE RECORDS SUMMARY | 2024-02-02 00:44 | XMS_ITS | Encounter Summary ---
Author Organization [facility] [place] [address] Care Team Providers Care Youth Minister Name Role Phone Christine Fuentes Primary Care Provider +1- [phone] Encounter Details Date Type Department Care Team (Latest Contact Info) Description 01/30/2018 1:03 PM EST - 01/30/2018 11:59 PM EST Hospital [place] [address] Babs Duvall MD [facility] [place] [address] Abnormal mammogram Discharge Disposition: Home Social History [...] core biopsy specimens were obtained using a [employer] Eviva 9g device. Biopsy specimens were radiographed. [...] PM EST 01/30/2018 1:33 PM EST Narrative [facility] - 01/30/2018 1:33 PM EST Specimen requisition ordered. ??Separate Pathology report to follow Babs Duvall MD PATHOLOGY/CYTOLOGY ORDERABLES Performing Organization Address City/State/RUST Co de Phone Number [facility] [place] [address] * Surgical Pathology Report (01/30/2018 1:25 PM EST) Final Diagnosis [id number] ? Location: 3L The signing pathologist has [...] cancer cells with immunostaining) Stain intensity: Strong VA immunoreactivity: Positive (~50% cancer cells with immunostaining) [...] The assays were performed according to the data center technician ? 's instructions using Anti-ER (SP1) and Anti-VA (16) antibodies. Electronically signed by: ??Kamryn Gregory DO Verified: ??02/01/2018 ?Pathologist Performed at: ??-[facility] Dept. of Pathology, [place], [place] DISCUSSION The DCIS shows a micropapillary [...] 7 minutes ??ejr 02/01/2018 9:15 AM EST [facility] BREAST STRUCTURE / Unknown 01/30/2018 1:25 PM EST 01/30/2018 1:25 PM EST Babs Duvall MD PATHOLOGY/CYTOLOGY ORDERABLES [facility] [place] [address] documented in this encounter Visit Diagnoses Diagnosis [...] mg documented in this encounter Care Teams Youth Minister Relationship Specialty Start Date End Date Christine Fuentes PA [address] [place] [address] PCP - General Family Medicine 01/24/17 10/08/19 documented as of this encounter
--- OUTSIDE RECORDS SUMMARY | 2024-02-02 00:44 | XMS_ITS | Encounter Summary ---
Author Organization [facility] [place] [address] Care Team Providers Care Ops Manager Name Role Phone Christine Fuentes Primary Care Provider +1- [phone] Encounter Details Date Type Department Care Team (Late st Contact Info) Description 03/01/2018 Telephone Hematology [place] [address] Domenica Lama [facility] HEMATOLOGY/[place] [address] Social History Tobacco Use Types Packs/Day Years Used Date Smoking Tobacco: Former Cigarettes Q uit: 10/19/2011 Smokeless Tobacco: Never Sex and Gender Information Value Date Recorded Sex Assigned at Not on file Gender Identity Not on file Sexual Orientation Not on file documented as of this encounter Miscellaneous Notes * Telephone Encounter - Domenica Lama [facility] - 03/01/2018 12:46 PM EST This test result was discussed with the patient by phone. A copy of a letter sent to the patient containing these results is provided below. Please be advised that [place] law requires that allhealth care workers respect the confidentiality of this information and not pass it along to other health care providers, insurance companies, or individuals without the written permission of the patient. The Familial Cancer Program welcomes any questions about these matters. Our phone number is: [phone]. On February 21, 2018, Cecilia underwent genetic testing for a hereditary predisposition to common hereditary cancers, including breast, gynecologic and gastrointestinal. Following are the results of thistest. Result: [employer]'s Common Hereditary Cancers Panel showed no mutation was detected. This means that Cecilia does not carry a mutation in the genes detectable by this test. The following genes were evaluated forsequence changes and exonic deletions/duplications: APC, MARTINA, AXIN2, BARD1, BMPR1A, BRCA1, BRCA2, BRIP1, CDH1, CDK4, CDKN2A (p14ARF), CDKN2A (b71JHW0d), CHEK2, CTNNA1, DICER1, EPCAM (EPCAM: Deletion/duplication testing only ([id number]), GREM1 (GREM1: Promoter region deletion/duplication testing only.), KIT, MEN1, MLH1, MSH2, MSH3, MSH6, MUTYH, NBN, NF1, PALB2, PDGFRA, PMS2, POLD1, POLE, PTEN, RAD50, RAD51C, RAD51D, SDHB, SDHC, SDHD, SMAD4, SMARCA4, STK11, TP53, TSC1, TSC2, VHL. The following g saira were evaluated for sequence changes only: HOXB13 (c.251G>A, p.Gvx34Xia variant only), NTHL1(NTHL1: Deletion/duplication analysis is not offered for this gene (NM_[id number]), and SDHA. A variant of uncertain significance in the STK11 gene, specifically c.992G>A (p.Eyk351Hwb), was detected. We are enclosing a printed copy of Cecilia's test results. Interpretation: It is unclear at this time whether the STK11 variant of uncertain significance identified in Cecilia is a cancer associated mutation or is a benign change in the gene with no increased cancer risks. [employer] is continually collecting and analyzing their data, [...] screening studies in addition to an annual POWER TECHNICIAN exam at this time. Other cancer screening ?? Periodic colonoscopy screening as recommended by Cecilia's carton marker machine. ?? Periodic skin exams documented in this encounter Plan of Treatment Not on file documented as of this encounter Visit Diagnoses Not on filedocumented in this encounter Care Teams Ops Manager Relationship Specialty Start Date End Date Christine Fuentes PA [address] [place] [address] PCP - General Family Medicine 01/24/17 10/08/19 documented as of this encounter
--- OUTSIDE RECORDS SUMMARY | 2024-02-02 00:44 | XMS_ITS | Encounter Summary ---
[place] [address] Care Team Providers Care Category Consultant Name Role Phone Christine Fuentes Primary Care Provider +1- [phone] Encounter Details Date Type Department Care Team (Late st Contact Info) Description 09/11/2018 [place] [address] January Davis Social History Tobacco Use Types [...] white ?? We ordered her 3 more, Gu [place],Silveira, and Star flower. ?? She paid for all 4 of them today with CC $145.56 ?? F/up: 08/28/18 to lemon picker the 3 we ordered today. ??Gu [place],Silveira, and Star flower were mailed to pt and she confirmed she received them. documented in this encounter Plan of Treatment Not on file documented as of this encounter Visit Diagnoses Not on filedocumented in this encounter Care Teams Category Consultant Relationship Specialty Start Date End Date Christine Fuentes PA [address] [place] [address] PCP - General Family Medicine 01/24/17 10/08/19 documented as of this encounter
--- OUTSIDE RECORDS SUMMARY | 2024-02-02 00:44 | XMS_ITS | Encounter Summary ---
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
--- OUTSIDE RECORDS SUMMARY | 2024-02-02 00:44 | XMS_ITS | Encounter Summary ---
Author Organization [facility] [place] [address] Care Team Providers Care Pouch Making Machine Operator Name Role Phone Christine Fuentes Primary Care Provider +1- [phone] Encounter Details Date Type Department Care Team (Late st Contact Info) Description 02/21/2018 10:45 AM EST Office Visit Hematology [place] [address] Marla Brice MD [facility] [place] [address] Kiersten Wilson RN Ductal carcinoma in situ [...] Exercises handout created by physical therapists at [facility]. She understands she may begin the first [...] Clinic Nurses was given and the Doctor operator control room system explained. 10. We discussed the recommended [...] s/p partial mastectomy and RT in 2009 ([facility]). She was followed by surgeon for [...] Stereotactic Biopsy Right 01/30/2018 Babs Duvall MD [facility] RAD MAMMOGRAPHY ??? PRO EXCISE BREAST LES W XRAY MARKER Left 03/30/2017 EXCISION LESION, BREAST W/ PREOP.MARKER (NEEDLE LOC.) (WRVU 6.69) performed by Marla Brice MD at [facility] OSC Current Outpatient Medications: ??? hydrocortisone 2.5 [...] breast documented in this encounter Care Teams Pouch Making Machine Operator Relationship Specialty Start Date End Date Christine Fuentes PA [address] [place] [address] PCP - General Family Medicine 01/24/17 10/08/19 documented as of this encounter
--- OUTSIDE RECORDS SUMMARY | 2024-02-02 00:44 | XMS_ITS | Encounter Summary ---
[place] [address] Care Team Providers Care Rn Medication Name Role Phone Christine Fuentes Primary Care Provider +1- [phone] Encounter Details Date Type Department Care Team (Late st Contact Info) Description 02/22/2018 Telephone [place] [address] Elaine Song Social History Tobacco Use Types [...] on filedocumented in this encounter Care Teams Rn Medication Relationship Specialty Start Date End Date Christine Fuentes PA [address] [place], [place] [address] PCP - General Family Medicine 01/24/17 10/08/19 documented as of this encounter
--- OUTSIDE RECORDS SUMMARY | 2024-02-02 00:44 | XMS_ITS | Encounter Summary ---
Author Organization [facility] [place] [address] Care Team Providers Care Intensive Care Unit Registered Nurse Name Role Phone Christine Fuentes Primary Care Provider +1- [phone] Encounter Details Date Type Department Care Team (Late st Contact Info) Description 02/27/2018 Telephone Hematology [place] [address] [address] [facility] [address] Social History Tobacco Use Types Packs/Day Years Used Date Smoking Tobacco: Former Cigarettes Q uit: 10/19/2011 Smokeless Tobacco: Never Sex and Gender Information Value Date Recorded Sex Assigned at Not on file Gender Identity Not on file Sexual Orientation Not on file documented as of this encounter Miscellaneous Notes * Telephone Encounter - Domenica Lama [facility] - 02/27/2018 12:47 PM EST Informed Ceiclia of her negative or normal STAT Breast Cancer Panel (MARTINA, BRCA1, BRCA2, CDH1, CHEK2, PALB2, PTEN, STK11, TP53) genetic test results. STK11 c.992G>A (p.Fyk255Dzm) variant of uncertainsignificance was identified. It is unclear at this time whether the STK11 variant of uncertain significance identified is a cancer associated mutation or is a benign change in the gene with no increased cancer risks. [facility] is continually collecting and analyzing [...] on filedocumented in this encounter Care Teams Intensive Care Unit Registered Nurse Relationship Specialty Start Date End Date Christine Fuentes PA [address] [place] [address] PCP - General Family Medicine 01/24/17 10/08/19 documented as of this encounter
--- OUTSIDE RECORDS SUMMARY | 2024-02-02 00:44 | XMS_ITS | Encounter Summary ---
[place] [address] Care Team Providers Care Wire Brush Maker Name Role Phone Christine Fuentes Primary Care Provider +1- [phone] Encounter Details Date Type Department Care Team (Late st Contact Info) Description 05/10/2018 Telephone [place] [address] Christina Fay, RN Social History Tobacco Use [...] 1955 CALLER: Pt to the General Surgery [facility] Learning Needs Assessment Reviewed: Yes SUBJECTIVE - I had a double mastectomy and I need a root canal is that okay? PERTINENT PAST MEDICAL HISTORY: PT is s/p Patient Name: Cecilia Marx : [id number] MR#: [id number] ?? Case Date: 03/15/2018 ?? Surgeon: Surgeon(s) and Role: * Marla Brice MD - Primary * Sera Weller MD - Resident-Commercial Lines Sales Executive * Vu Angela MD - Resident-Surgeon Tonny [...] on filedocumented in this encounter Care Teams Wire Brush Maker Relationship Specialty Start Date End Date Christine Fuentes PA [address] [place] [address] PCP - General Family Medicine 01/24/17 10/08/19 documented as of this encounter
--- OUTSIDE RECORDS SUMMARY | 2024-02-02 00:44 | XMS_ITS | Encounter Summary ---
[place] [address] Care Team Providers Care Front Services Agent Name Role Phone Christine Fuentes Primary Care Provider +1- [phone] Encounter Details Date Type Department Care Team (Late st Contact Info) Description 04/10/2018 9:30 AM [place] [address] January Davis Social History Tobacco Use Types [...] 04/10/2018 9:30 AM EST Cecilia Marx 1955 [id number] Prescription Received:Yes Insurance: Private Previous Fitting: First [...] Stock Ordered Delivery Date Type L8030 ABC [id number] 2 Y 2.19.19 [place] L8020 ABC [id number] 2 N 2.19.19 3.5.19 [place] L8000 ABC [id number] 1 Y 2.19.19 [place] L8000 ABC [id number] 1 Y 2.19.19 BRA L8000 ABC 110-L-C/D-MINT [...] on filedocumented in this encounter Care Teams Front Services Agent Relationship Specialty Start Date End Date Christine Fuentes PA [address] [place] [address] PCP - General Family Medicine 01/24/17 10/08/19 documented as of this encounter
--- OUTSIDE RECORDS SUMMARY | 2024-02-02 00:44 | XMS_ITS | Encounter Summary ---
[place] [address] Care Team Providers Care Rda Name Role Phone Christine Fuentes Primary Care Provider +1- [phone] Reason for Referral * Diagnostic Test (Routine) - Closed Specialty Diagnoses / Procedures Referred By Cherie abdul Referred To Contact Radiology Diagnoses Ductal carcinoma in situ (DCIS) of right breast Procedures NM Wilcox Node Injection Breast wo Imaging Marla Brice MD [facility] [place] [address] [place] [address] Referral ID Status Reason Start Date Expiration Date V isits Requested Visits Authorized [id number] Closed Specialty Service Requested 02/23/2018 02/23/2019 1 1 Encounter Details Date Type Department Care Team (Late st Contact Info) Description 02/23/2018 Orders [place] [address] Marla Brice MD [facility] [place] [address] Ductal carcinoma in situ (DCIS) [...] as of this encounter Results * NM Wilcox Node Injection Breast wo Imaging (03/15/2018 1:11 PM EST) Anatomical Region Laterality Modality Nuclear Medicine Impressions 03/15/2018 1:50 PM EST Wilcox node injections performed without complication. Thank you for letting us participate in the care of this patient. For questions regarding this report, please contact the number below. ? Electronically signed by: Aleksandar Ibanez [facility] ([phone]), at 03/15/2018 1:50 PM Narrative 03/15/2018 1:50 [...] patient left the department ingood condition. IMPRESSION Wilcox node injections performed without complication. Thank you for letting us participate in the care of this patient. Forquestions regarding this report, please contact the number below. 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
--- OUTSIDE RECORDS SUMMARY | 2024-02-02 00:44 | XMS_ITS | Encounter Summary ---
[place] [address] Care Team Providers Care Job Site Supervisor Name Role Phone Christine Fuentes Primary Care Provider +1- [phone] Encounter Details Date Type Department Care Team (Late st Contact Info) Description 08/29/2018 Telephone [place] [address] Kiersten Hodges RN Social History Tobacco Use Types Packs/Day [...] 09/03/2018 10:23 AM EDT Call placed to [facility] has lab results not scanned in. Per Danyell, patient has not come in for lab. Call placed to Diane. FLORES reminding she's due for labs. Asked her to call back or send Mommy Nearest message * Telephone Encounter - Kiersten Dean RN - 08/29/2018 3:20 PM EDT Bautista Mcgrath MD sent to Kiersten Dean, DAVID ?? Debbie, I am not sure if you are the right person to send this to. I saw this patient in clinic this week but want additional labs. She lives close to [facility] and would be reasonable to have them done there. I ordered the labs as external and called to patient to let her know. Do we fax the orders to [facility]? Isthis something that I should send to the secretaries? Thanks, James Lab orders faxed to [facility] at [phone]. Reminder set to f/u on results. documented in this encounter Plan of Treatment Not on file documented as of this encounter Visit Diagnoses Not on filedocumented in this encounter Care Teams Job Site Supervisor Relationship Specialty Start Date End Date Christine Fuentes PA [address] [place] [address] PCP - General Family Medicine 01/24/17 10/08/19 documented as of this encounter
--- OUTSIDE RECORDS SUMMARY | 2024-02-02 00:44 | XMS_ITS | Encounter Summary ---
[place] [address] Care Team Providers Care Mounter Automatic Name Role Phone Christine Fuentes Primary Care Provider +1- [phone] Encounter Details Date Type Department Care Team (Late st Contact Info) Description 04/10/2018 Orders Only [place] [address] Whitney Lewis RN Malignant neoplasm of right [...] breast documented in this encounter Care Teams Mounter Automatic Relationship Specialty Start Date End Date Christine Fuentes PA [address] [place] [address] PCP - General Family Medicine 01/24/17 10/08/19 documented as of this encounter
--- OUTSIDE RECORDS SUMMARY | 2024-02-02 00:44 | XMS_ITS | Encounter Summary ---
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 female with newly diagnosed ER/DC+ right breast DCIS (right breast stereotactic guided biopsy 01/30/2018 at [facility]). PERSONAL HISTORY of BREAST CANCER Cecilia Maxr has a history of right breast DCIS treated with partial mastectomy ([address] Forrester) and radiotherapy (2010 at [facility], [facility]). Cecilia has a history of left breast wide local excision 03/30/[address] Morales (for ADH, ALH, benignpapillary lesion, etc.). She met with Dr. Stack in [facility] after this to discuss chemoprevention which she [...] sent. She prefers to be seen in [facility] over [place], but will take the earliest appt. She [...] laterality documented in this encounter Care Teams Nursing Instructor Relationship Specialty Start Date End Date Christine Fuentes PA [address] [place] [address] PCP - General Family Medicine 01/24/17 10/08/19 documented as of this encounter
--- OUTSIDE RECORDS SUMMARY | 2024-02-02 00:44 | XMS_ITS | Encounter Summary ---
[place] [address] Care Team Providers Care Die Press Operator Name Role Phone Christine Fuentes Primary Care Provider +1- [phone] Encounter Details Date Type Department Care Team (Late st Contact Info) Description 02/26/2019 2:30 [place] [address] January Davis Social History Tobacco Use Types [...] a Camisole. We fit her to the [id number]. She likes it. She is ready for new bras and forms but will come back in March to do that. $50.00 Paid by to [facility] documented in this encounter Plan of Treatment Not on file documented as of this encounter Visit Diagnoses Not on filedocumented in this encounter Care Teams Die Press Operator Relationship Specialty Start Date End Date Christine Fuentes PA [address] [place] [address] PCP - General Family Medicine 01/24/17 10/08/19 documented as of this encounter
--- OUTSIDE RECORDS SUMMARY | 2024-02-02 00:44 | XMS_ITS | Encounter Summary ---
Author Organization [facility] [place] [address] Care Team Providers Care Welcome Hostess Name Role Phone Christine Fuentes Primary Care Provider +1- [phone] Encounter Details Date Type Department Care Team (Latest Contact Info) Description 02/21/2018 1:54 PM EST - 02/21/2018 11:59 PM EST Hospital Encounter [place] [address] Ductal carcinoma in situ (DCIS) of breast, [...] (02/21/2018 2:11 PM EST) Research Venipuncture Complete [facility] Blood specimen (specimen) 02/21/2018 2:11 PM EST 02/21/2018 2:18 PM EST Narrative Resulting Agency Comment Spec In Lab Avi Talbot MD CHEMISTRY ORDERABLES [facility] [place] [address] documented in this encounter Visit Diagnoses Diagnosis Ductal carcinoma in situ (DCIS) of breast, unspecified laterality Family history of malignant neoplasm of breast documented in this encounter Care Teams Welcome Hostess Relationship Specialty Start Date End Date Christine Fuentes PA [address] [place] [address] PCP - General Family Medicine 01/24/17 10/08/19 documented as of this encounter
--- OUTSIDE RECORDS SUMMARY | 2024-02-02 00:44 | XMS_ITS | Encounter Summary ---
Author Organization [facility] [place] [address] Care Team Providers Care Paint Factory Worker Name Role Phone Christine Fuentes Primary Care Provider +1- [phone] Encounter Details Date Type Department Care Team (Late st Contact Info) Description 08/29/2018 Orders [place] [address] Bautista Mcgrath MD [facility] [place] [address] Fatty liver Social History Tobacco Use Types [...] disease documented in this encounter Care Teams Paint Factory Worker Relationship Specialty Start Date End Date Christine Fuetnes PA [address] [place] [address] PCP - General Family Medicine 01/24/17 10/08/19 documented as of this encounter
--- OUTSIDE RECORDS SUMMARY | 2024-02-02 00:44 | XMS_ITS | Encounter Summary ---
[place] [address] Care Team Providers Care Head Paper Tester Name Role Phone Christine Fuentes Primary Care Provider +1- [phone] Encounter Details Date Type Department Care Team (Late st Contact Info) Description 05/08/2018 Telephone Hematology [place] [address] Trinh Lira Social History Tobacco Use Types [...] filedocumented in this encounter Care Teams Head Paper Tester Relationship Specialty Start Date End Date Christine Fuentes PA [address] [place] [address] PCP - General Family Medicine 01/24/17 10/08/19 documented as of this encounter
--- OUTSIDE RECORDS SUMMARY | 2024-02-02 00:44 | XMS_ITS | Encounter Summary ---
Author Organization [facility] [address] Care Team Providers Care Human Geography Instructor Name Role Phone Chritsine Fuentes Primary Care Provider +1- [phone] Encounter Details Date Type Department Care Team (Late st Contact Info) Description 02/21/2018 Notes Only Hematology [place] [address] Aliyah Maynard, CHIMNEY SUPERVISOR [facility] [place] [address] Social History Tobacco Use Types Packs/Day Years [...] Maynard, RN - 02/21/2018 12:17 PM EST [id number]: Preclinical study of the aryl hydrocarbon receptor and other biomarkers in human adipose tissue and their potential links among obesity and breast cancer Date: 02/21/2018 Objective of visit: Meet with patient in 3K clinic to provide information regarding protocol L60290, answer questions or concerns about study plan [...] and patient will be enrolled on study [id number] per her consent. 2. Orders will be placed for study lab and tissue sample to be taken day of procedure; which will conclude her participation in the study. Dr. Cordova's lab notified. documented in this encounter Plan of Treatment Not on file documented as of this encounter Visit Diagnoses Not on filedocumented in this encounter Care Teams Human Geography Instructor Relationship Specialty Start Date End Date Christine Fuentes PA [address] [place] [address] PCP - General Family Medicine 01/24/17 10/08/19 documented as of this encounter
--- OUTSIDE RECORDS SUMMARY | 2024-02-02 00:44 | XMS_ITS | Encounter Summary ---
[place] [address] Care Team Providers Care Hydrologic Engineer Name Role Phone Christine Fuentes Primary Care Provider +1- [phone] Encounter Details Date Type Department Care Team (Late st Contact Info) Description 01/28/2019 Telephone Hematology [place] [address] Serena Tran Social History Tobacco Use Types [...] on filedocumented in this encounter Care Teams Hydrologic Engineer Relationship Specialty Start Date End Date Christine Fuentes PA [address] [place] [address] PCP - General Family Medicine 01/24/17 10/08/19 documented as of this encounter
--- OUTSIDE RECORDS SUMMARY | 2024-02-02 00:44 | XMS_ITS | Encounter Summary ---
[place] [address] Care Team Providers Care Mechanical Shop Laborer Name Role Phone Christine Fuentes Primary Care Provider +1- [phone] Reason for Referral * Diagnostic Test (Routine) - Closed Specialty Diagnoses / Procedures Referred By Contac t Referred To Contact Radiology Diagnoses Malignant neoplasm of right breast in female, estrogen receptor positive, unspecified site of breast Procedures MRI Breast wwo Contrast Marla Pearce MD [facility] [place] [address] [place] [address] Referral ID Status Reason Start Date Expiration Date V isits Requested Visits Authorized [id number] Closed Specialty Service Requested 02/10/2018 04/10/2018 1 1 Reason for Visit * Diagnostic Test (Routine) - Closed Specialty Diagnoses / Procedures Referred By Contperez t Referred To Contact Radiology Diagnoses Malignant neoplasm of right breast in female, estrogen receptor positive, unspecified site of breast Procedures MRI Breast wwo Contrast Marla Pearce MD [facility] [place] [address] [place] [address] Referral ID Status Reason Start Date Expiration Date V isits Requested Visits Authorized [id number] Closed Specialty Service Requested 02/10/2018 04/10/2018 1 1 Encounter Details Date Type Department Care Team (Late st Contact Info) Description 02/16/2018 10:27 AM EST - 02/16/2018 11:59 PM EST Hospital Encounter MRI at [facility] [place] [address] Marla Brice MD [facility] [place] [address] Malignant neoplasm of right breast in female, [...] contrast enhancement curve analysis was performed, using myBarrister software. COMPARISON STUDIES: Compared and/or correlated with [...] contrast enhancement curve analysis was performed, using myBarrister software. COMPARISON STUDIES: Compared and/or correlated with [...] mLs documented in this encounter Care Teams Mechanical Shop Laborer Relationship Specialty Start Date End Date Christine Fuentes PA [address] [place] [address] PCP - General Family Medicine 01/24/17 10/08/19 documented as of this encounter
--- OUTSIDE RECORDS SUMMARY | 2024-02-02 00:44 | XMS_ITS | Encounter Summary ---
[place] [address] Care Team Providers Care Payroll Benefits Administrator Name Role Phone Christine Fuentes Primary Care Provider +1- [phone] Encounter Details Date Type Department Care Team (Late st Contact Info) Description 04/24/2018 3:30 [place] [address] January Davis Social History Tobacco Use Types [...] for f/up today. She is here to worm picker items ordered for her on 04/10/18 Patient Cecliia Marx 1.24.57 DX Right br ca C50.911 [facility] L8020 Products 929-08 Quantity 1 Ordering Marla Brice Self Pay pipelines superintendent date 04.24.18 Delivered today: 110 bra beige 110 bra black 929-08 X2 See 04/10/18 note for fitting details Paid with card on 04.10.18 $180.52 documented in this encounter Plan of Treatment Not on file documented as of this encounter Visit Diagnoses Not on filedocumented in this encounter Care Teams Payroll Benefits Administrator Relationship Specialty Start Date End Date Christine Fuentes PA [address] [place] [address] PCP - General Family Medicine 01/24/17 10/08/19 documented as of this encounter
--- OUTSIDE RECORDS SUMMARY | 2024-02-02 00:44 | XMS_ITS | Encounter Summary ---
Author Organization [facility] [place] [address] Care Team Providers Care Meat Molder Name Role Phone Christine Fuentes Primary Care Provider +1- [phone] Encounter Details Date Type Department Care Team (Late st Contact Info) Description 03/11/2018 Telephone Pediatric [place] [address] Concetta Mullen MD [facility] [place] [address] Social History Tobacco Use Types Packs/Day Years [...] on filedocumented in this encounter Care Teams Meat Molder Relationship Specialty Start Date End Date Christine Fuentes PA [address] [place] [address] PCP - General Family Medicine 01/24/17 10/08/19 documented as of this encounter
--- OUTSIDE RECORDS SUMMARY | 2024-02-02 00:44 | XMS_ITS | Encounter Summary ---
Author Organization [facility] [place] [address] Care Team Providers Care Electric Meter Installer Name Role Phone Christine Fuentes Primary Care Provider +1- [phone] Reason for Visit * Auth/Cert Specialty Diagnoses [...] Expiration Date Visits Re quested Visits Authorized [id number] 1 1 Encounter Details Date Type Department Care Team (Late st Contact Info) Description 03/15/2018 2:41 PM EST - 03/15/2018 5:54 PM EST [place] [address] Marla Zepeda MD [facility] [place] [address] MASTECTOMY, SIMPLE, COMPLETE-CARITO (WRVU 15) Social History [...] this encounter Discharge Summaries * Aleah Vigil, FLIGHT ENGINEER PERFORMANCE QUALIFIED - 03/16/2018 10:42 AM EST General Surgery [...] s/p partial mastectomy and RT in 2009 ([facility]). She was followed by surgeon [...] bony pain or tenderness.stopped drinking wine around Buhl time due to depression. ?? Reports a left breast infection about 2-3 weeks after biopsy. Had redness, pain and inverted nipple. She was started on augmentin for 21 days and symptoms resolved. ?? Here today with her . Operations/Major Procedures: Operations: 03/15/2018 Surgeon(s) and Role: * Marla Zepeda MD - Primary * Sera Weller MD - Resident-Experimental Welder * Vu Angela MD - Resident-Surgeon Tonny [...] Discharge: Final Surgical Pathology pending. Studies: NM Saint Joe Node Injection Breast wo Imaging (03/16): IMPRESSION Saint Joe node injections performed without complication. Discharge Exam: [...] to: Home VNA: Yes Name of facility: [facility] Contact information: PHONE: [phone] Discharge Conditions/Prognosis: Stable Discharge Medications: The following [...] PM Avi Talbot MD Leb Hem Onc [facility] 03/30/2018 3:15 PM Magdalena Madrigal, PT PT Rehab [facility] Outpatient Services/Studies: Referral to Home Health - at DISCHARGE Order Comments: DOCUMENTATION FOR VNA SERVICES (INCLUDING THOSE PATIENTS WITH MEDICARE COVERAGE REQUIRING HOME VNA SERVICES AND/OR HOSPICE SERVICES) PATIENT'S LOCATION: Cecilia Marx [facility] [id number] (home) [phone] (cell) Residential Treatment Counselor's Name: Self In discussion with the attending physician, it is certified that this patient is under their care and that they, or a Nurse Practitioner,Clinical Nurse specialist or Physician Line Assembler who is working directly with them, had [...] program if appropriate. HOME HEALTH CARE AGENCY: [facility]. PHONE: [phone] FAX: [phone] Start of care: 24-48 hrs after discharge Please note that any additional orders needs or changes will need to be obtained from this patient's PCP: NNAMDI Nicole [address] / [place] [address] All VNA agencies which cover the area of patient's residence have been reviewed, either verbally stacia writing, and patient/family have chosen the home health care agency noted Question Response Notes Agency name and contact information [facility] Patient location post discharge Home [...] than 30cc perday for 2 consecutive days. [phone] You may shower with the drains in [...] Dr. Zepeda in 2-3 weeks Please call [phone] to confirm date and time of your appointment if you do not hear from us inthe week. Call Doctor for: Worsening redness or drainage from your incision lasting longer than 5 days following surgery Any foul-smelling drainage from the incision Fevers greater than 101 degrees F Persistent nausea or vomiting (this may be related to opioid pain medications) Phone number for questions: [phone] before 5 PM weekdays [phone] after 5 PM and on weekends/holidays Future Appointments Date Time Provider Department Center 03/30/2018 1:30 PM Marla Zepeda MD Leb Surg [facility] 03/30/2018 2:00 PM Avi Talbot MD Leb Hem Onc [facility] 03/30/2018 3:15 PM Magdalena Madrigal, PT PT Rehab [facility] General Instructions None Acute Opioid Prescribing: [...] CC: NNAMDI Nicole Signed: Aleah Vigil APRN [facility] Surgical Oncology Service Team Pager #[phone] 03/16/2018 11:44 AM documented in this encounter [...] than 30cc perday for 2 consecutive days. [phone] You may shower with the drains in [...] Dr. Zepeda in 2-3 weeks Please call [phone] to confirm date and time of your appointment if you do not hear from us inthe week. Call Doctor for: Worsening redness or drainage from your incision lasting longer than 5 days following surgery Any foul-smelling drainage from the incision Fevers greater than 101 degrees F Persistent nausea or vomiting (this may be related to opioid pain medications) Phone number for questions: [phone] before 5 PM weekdays [phone] after 5 PM and on weekends/holidays Future Appointments Date Time Provider Department Center 03/30/2018 1:30 PM Marla Zepeda MD Leb Surg [facility] 03/30/2018 2:00 PM Avi Talbot MD Leb Hem Onc [facility] 03/30/2018 3:15 PM Magdalena Madrigal, PT PT Rehab [facility] * Attachments The following attachments cannot be sent through Care Everywhere. * Surgical Drain Care (Cymro) documented in this encounter Medications at Time [...] RN - 03/16/2018 9:46 AM EST The patient/technical services representative has been provided a list of Home Health Agencies which serve their preferred geographic area. A letter describing our affiliations was reviewed with them and they were educated about their right to choose where referrals are placed. Patient requests referral to [facility]. PHONE: [phone] FAX: [phone]. Expected date of discharge: 03/16/18. Referral routed to the Tile Grinder for matching with agency/vendor and to provide [...] supportive. He will be staying in the [facility] overnight and will keep all pt [...] taken out of the room to the assignment desk editor by Rachana Leary RN at 2009, verified with Noemi and lab informed at 2012. #2 right axillary node #3 left breast tissue out at 2057 and sent to the assignment desk editor at 2113 on 03/15/18, verified by Luis Womack and noemi that there were two specimens in the bag , right sentinal node and left breast tissue. Contact the patient to update him on the procedure at 2025 on 03/15/18. documented in this encounter Miscellaneous Notes * Op Note - Marla Zepeda MD - 03/16/2018 11:45 AM EST [facility] Operative Note Patient Name: Cecilia Marx : [id number] MR#: [id number] Case Date: 03/15/2018 Surgeon: Surgeon(s) and Role: * Marla Zepeda MD - Primary * Sera Weller MD - Resident-Experimental Welder * Vu Angela MD - Resident-Surgeon Tonny [...] Operative Note Patient Name: Cecilia Marx : [id number] MR#: [id number] Case Date: 03/15/2018 Surgeon: Surgeon(s) and Role: * Marla Zepeda MD - Primary * Sera Weller MD - Resident-Experimental Welder * Vu Angela MD - Resident-Surgeon Tonny [...] PM EST 03/15/2018 9:38 PM EST Narrative [facility] - 03/15/2018 9:38 PM EST Specimen requisition ordered. ??Separate Pathology report to follow Resulting Agency Comment Spec In Lab Marla Blue MD PATHOLOGY/CYTOLO GY ORDERABLES Performing Organization Address City/[facility]/[place] [address] * Specimen to Pathology (03/15/2018 9:00 PM EST) AP Specimen 03/15/2018 9:00 PM EST 03/15/2018 9:37 PM EST Narrative [facility] - 03/15/2018 9:38 PM EST Specimen requisition ordered. ??Separate Pathology report to follow Resulting Agency Comment Spec In Lab Marla Blue MD PATHOLOGY/CYTOLO GY ORDERABLES Performing Organization Address City/[facility]/ZIP Co de Phone Number [facility] [place] [address] * Specimen to Pathology (03/15/2018 8:06 PM EST) AP Specimen 03/15/2018 8:06 PM EST 03/15/2018 8:06 PM EST Narrative [facility] - 03/15/2018 8:06 PM EST Specimen requisition ordered. ??Separate Pathology report to follow Marla Blue MD PATHOLOGY/CYTOLO GY [place] [address] * Surgical Pathology Report (03/15/2018 8:04 PM EST) Final Diagnosis [id number] ? [facility]; A The signing pathologist [...] ?? Uninvolved by tumor cells ?Number of Saint Joe Nodes Examined: ?4 Pathologic Stage Classification (pTNM, AJCC 8th Edition) ? Primary Tumor (pT): ?? pTis (DCIS) ? Regional Lymph Nodes (pN) ?Modifier: ??(sn): Saint Joe node(s) evaluated. ?Category (pN): ?? pN0 Tumor Block(s): ?? A11 CAP eCC February 2017 Agile Release ER and MA studies (performed on prior biopsy, [id number]): ER: Positive (>90%, strong) MA: Positive (50%, moderate to strong) Electronically signed by: ??Antonio BANGURA, Delon Lewis Verified: ??03/22/2018 ?Pathologist Performed at: ??-[facility] Dept. of Pathology, [place], [place] . DISCUSSION An admixture of atypical [...] is blue, deep is black. Sections/Processi ng: Research Investigator sections in 22 cassettes as follows: ? [...] 2.5 cm. . SPECIMEN PROCESSING Sections/Processi ng: ??Research Investigator sections in 6 cassettes as follows: ? [...] noted. Ink Designation: Deep/black; superficial/blue. Sections/Processi ng: Research Investigator sections in 12 cassettes as follows: ? C1: ? Nipple ? C2: ? Base of nipple ? C3-C4: ?Research Investigator upper outer quadrant ? C5-C6: ?Research Investigator lower inner quadrant ? C7-C8: ?Research Investigator central ? C9-C10: ?? Research Investigator upper inner quadrant ? C11-C12: ??Research Investigator lower inner quadrant Ischemic Time: 0.8 hours ??pps 03/22/2018 4:03 PM EST [facility] BREAST STRUCTURE / Unknown 03/15/2018 8:04 PM EST 03/15/2018 8:04 PM EST SENTINEL LYMPH NODE / Unknown 03/15/2018 8:04 PM EST 03/15/2018 8:04 PM EST BREAST STRUCTURE / Unknown 03/15/2018 8:04 PM EST 03/15/2018 8:04 PM EST Marla Blue MD PATHOLOGY/CYTOLO GY ORDERABLES [facility] [place] [id number] documented in this encounter Visit Diagnoses Not [...] 24 hours., Routine 2227 (Given - Provider: Maceknzie Strickland RN) 0611 (Given - Provider: Mackenzie [...] Unit) documented in this encounter Care Teams Electric Meter Installer Relationship Specialty Start Date End Date Christine Fuentes PA [address] [place] [address] PCP - General Family Medicine 01/24/17 10/08/19 documented as of this encounter
--- OUTSIDE RECORDS SUMMARY | 2024-02-02 00:44 | XMS_ITS | Encounter Summary ---
[place] [address] Care Team Providers Care File Drawer Finisher Name Role Phone Christine Fuentes Primary Care Provider +1- [phone] Encounter Details Date Type Department Care Team (Late st Contact Info) Description 08/09/2018 11:00 AM [place] [address] January Davis Social History Tobacco Use Types [...] 110-L-C/D- white We ordered her 3 more, [place], and [place]. She paid for all 4 of them today with CC $145.56 F/up: 08/28/18 to crab picker the 3 we ordered today. documented in this encounter Plan of Treatment Not on file documented as of this encounter Visit Diagnoses Not on filedocumented in this encounter Care Teams File Drawer Finisher Relationship Specialty Start Date End Date Christine Fuentes PA [address] [place] [address] PCP - General Family Medicine 01/24/17 10/08/19 documented as of this encounter
--- OUTSIDE RECORDS SUMMARY | 2024-02-02 00:44 | XMS_ITS | Encounter Summary ---
Author Organization [facility] [place] [address] Care Team Providers Care Lawn Mower Mechanic Name Role Phone Christine Fuentes Primary Care Provider +1- [phone] Encounter Details Date Type Department Care Team (Late st Contact Info) Description 04/29/2018 Telephone [place] [address] Delon Tyson MD [facility] [place] [address] Social History Tobacco Use Types Packs/Day Years [...] concerns. Robert Tyson Vascular Surgery, PGY3 Pager #[phone] documented in this encounter Plan of Treatment Not on file documented as of this encounter Visit Diagnoses Not on filedocumented in this encounter Care Teams Lawn Mower Mechanic Relationship Specialty Start Date End Date Christine Fuentes PA [address] [place] [address] PCP - General Family Medicine 01/24/17 10/08/19 documented as of this encounter
--- OUTSIDE RECORDS SUMMARY | 2024-02-02 00:44 | XMS_ITS | Encounter Summary ---
[place] [address] Care Team Providers Care Aeronautical Engineering Professor Name Role Phone Christine Fuentes Primary Care Provider +1- [phone] Encounter Details Date Type Department Care Team (Late st Contact Info) Description 02/22/2018 Telephone Hematology [place] [address] Kiersten Wilson RN Social History Tobacco Use [...] a 62 y.o. female with newly diagnosed ER/MI+ right breast DCIS ([facility]2018[facility] She has a history of right breast [...] may meet with our mastectomy fitter in [place] or someone closer to her home. Will provide information to her on [facility] M[facility] in [place].. documented in this encounter Plan of Treatment Not on file documented as of this encounter Visit Diagnoses Not on filedocumented in this encounter Care Teams Aeronautical Engineering Professor Relationship Specialty Start Date End Date Christine Fuentes PA [address] [place] [address] PCP - General Family Medicine 01/24/17 10/08/19 documented as of this encounter
--- OUTSIDE RECORDS SUMMARY | 2024-02-02 00:44 | XMS_ITS | Encounter Summary ---
[facility] [place] [address] Care Team Providers Care Photonic Laboratory Technician Name Role Phone Christine Fuentes Primary Care Provider +1- [phone] Encounter Details Date Type Department Care Team (Late st Contact Info) Description 08/29/2018 Orders [place] [address] [facility] [place] [address] Fatty liver Social History Tobacco Use Types [...] disease documented in this encounter Care Teams Photonic Laboratory Technician Relationship Specialty Start Date End Date Christine Fuentes PA [address] [place] [address] PCP - General Family Medicine 01/24/17 10/08/19 documented as of this encounter
--- OUTSIDE RECORDS SUMMARY | 2024-02-02 00:45 | XMS_ITS | Encounter Summary ---
Author Organization [facility] Address [facility] [place] [address] Care Team Providers Care Sales Technician Home Theater Name Role Phone Spike Sierra MD Primary Care Provider Encounter Details Date Type Department Care Team (Latest Contact Info) Description 12/31/2014 12:05 AM EST - 12/31/2014 11:59 PM EST Hospital Encounter Radiology Library at [facility] [place] [address] Spike Nicolas MD [facility] [place] [address] Screening breast examination Discharge Disposition: Home Social [...] Only Mammo (12/31/2014 12:05 AM EST) Narrative [facility] - 01/11/2017 4:48 PM EST This exam is for storage only and is auto-finalizing. Spike Nicolas MD IMG FILM LIBRARY ORD ERABLES [place], [place] documented in this encounter Visit Diagnoses Diagnosis Screening breast examination Other screening breast examination documented in this encounter Care Teams Sales Technician Home Theater Relationship Specialty Start Date End Date Spike Sierra MD [address] [place] [address] PCP - General 01/12/10 01/23/17 documented as of this encounter
--- OUTSIDE RECORDS SUMMARY | 2024-02-02 00:45 | XMS_ITS | Encounter Summary ---
Author Organization [facility] Address [facility] [place] [address] Care Team Providers Care Heavy Antiarmor Weapons Infantryman Name Role Phone Spike Sierra MD Primary Care Provider Encounter Details Date Type Department Care Team (Latest Contact Info) Description 12/04/2012 - 12/04/2012 11:59 PM EDT Hospital Encounter Radiology Library at [facility] [place] [address] Spike Nicolas MD [facility] [place] [address] Screening breast examination Discharge Disposition: Home Social [...] Only Mammo (12/04/2012 12:00 AM EDT) Narrative [facility] - 01/11/2017 4:43 PM EST This exam is for storage only and is auto-finalizing. Spike Nicolas MD IMG FILM LIBRARY ORD ERABLES [place], [place] documented in this encounter Visit Diagnoses Diagnosis Screening breast examination Other screening breast examination documented in this encounter Care Teams Heavy Antiarmor Weapons Infantryman Relationship Specialty Start Date End Date Spike Sierra MD [address] [place] [address] PCP - General 01/12/10 01/23/17 documented as of this encounter
--- OUTSIDE RECORDS SUMMARY | 2024-02-02 00:45 | XMS_ITS | Encounter Summary ---
[place] [address] Care Team Providers Care Seed Collector Name Role Phone Spike Sierra MD Primary Care Provider [phone] Reason for Visit * Reason Onset Date Comments Other 03/07/2011 question regardi ng hormone suppository Encounter Details Date Type Department Care Team (Late st Contact Info) Description 03/07/2011 Telephone Radiation Oncology at [address] [address] Jessica Boyer, RN Other (question [...] calls stating that she recently saw her ASSISTANT DIRECTOR OF [employer]ENCE [employer] physician, Dr Yasemin Selby, for c/o vaginal [...] Forrester, did consult with Dr Stack prior toRadiation oncology consult and was told that this patient did not require hormonal therapy to treather breast cancer. I called patient and left a brief message on her answer machine that Dr Fair has suggested that she meet with Dr Stack here at [facility] to discuss her question. Will ask membership secretary to contact pt w/ this appt. documented in this encounter Plan of Treatment Not on file documented as of this encounter Visit Diagnoses Not on filedocumented in this encounter Care Teams Seed Collector Relationship Specialty Start Date End Date Spike Sierra MD [address] [place] [address] PCP - General 01/12/10 01/23/17 documented as of this encounter
--- OUTSIDE RECORDS SUMMARY | 2024-02-02 00:45 | XMS_ITS | Encounter Summary ---
Author Organization [facility] Address [facility] [place] [address] Care Team Providers Care Branch Examiner Name Role Phone Christine Fuentes Primary Care Provider +1- [phone] Reason for Visit * Consultation (Routine) - Closed Specialty Diagnoses / Procedures Referred By Cherie abdul Referred To Contact Dermatology Diagnoses intertrigo Christine Fuentes PA [address] [place] [address] [facility] Dermatology [address] [place] [address] Referral ID Status Reason Start Date Expiration Date V isits Requested Visits Authorized [id number] Closed Consult, Test & Treat Connection Center 05/05/2017 05/05/2018 1 1 Encounter Details Date Type Department Care Team (Late st Contact Info) Description 07/03/2017 10:30 AM EDT Office Visit Dermatology at [facility] [address] [place] [phone] Krystyna Estrada MD [facility] [address] [place] [address] Intertrigo Social History Tobacco Use Types Packs/Day [...] - recommended drying the skin with a department of mathematics chair after bathing - Rx: ketoconazole cream [...] by Krystyna Estrada MD Resident in Dermatology [facility] Patient seen in conjunction with staff tavern keeper: Huang Keller MD Section of Dermatology [facility] * Huang Keller MD - 07/03/2017 10:30 AM EDT I was the supervising physician working with Dermatology resident, Dr. Estrada, in the Dermatology Clinic during this patient visit. The level of resident supervision for this patient visit was indirect supervision with direct supervision immediately available (definition: [facility] Policy Statement on Graduate Medical Education, Supervision of Graduate Medical Trainees). I was immediately available to Dr. Estrada for questions and discussion regarding this visit. I have reviewed his encounter note details and level of service. HUANG KELLER MD [facility] Staff Physician documented in this encounter Plan of Treatment Not on file documented as of this encounter Visit Diagnoses Diagnosis Intertrigo Other specified erythematous condition documented in this encounter Care Teams Branch Examiner Relationship Specialty Start Date End Date Christine Fuentes PA [address] [place] [address] PCP - General Family Medicine 01/24/17 10/08/19 documented as of this encounter
--- OUTSIDE RECORDS SUMMARY | 2024-02-02 00:45 | XMS_ITS | Encounter Summary ---
[place] [address] Care Team Providers Care Nanotechnician Name Role Phone Christine Fuentes Primary Care Provider [phone]- [phone] Reason for Visit * Auth/Cert Specialty Diagnoses / Procedures Referred By Cherie abdul Referred To Contact Diagnoses LEFT BREAST COMPLEX SCLEROSING LESION Procedures PRO EXCISE BREAST LES W XRAY MARKER EXCISION LESION, BREAST W/ PREOP.MARKER (NEEDLE LOC.) (WRVU 6.69) MODIFIER WITH NEEDLE LOC., LESION #1 Referral ID Status Reason Start Date Expiration Date Visits Re quested Visits Authorized [id number] 1 1 Encounter Details Date Type Department Care Team (Late st Contact Info) Description 03/30/2017 9:24 AM EST - 03/30/2017 3:00 PM [facility] Hospital Encounter Outpatient [place] [address] Savana Zepeda MD [facility] [place] [address] Discharge Disposition: Home Social History Tobacco Use [...] closest emergency room or call the hospital projector booth operator at [phone] and ask for physician consumer analyst covering for your physician. Questions or problems after 5pm or on a weekend: Call the [facility] projector booth operator at and ask for the physician consumer analyst covering for your doctor. * Patient Instructions* [...] 04/13/2017 10:45 AM Rhoda Brumfield APRN [facility] Call Doctor for: Worsening redness or drainage from your incision lasting longer than 5 days following surgery Any foul-smelling drainage from the incision Fevers greater than 101 degrees F Persistent nausea or vomiting (this may be related to opioid pain medications) Phone number for questions: [phone] before 5 PM weekdays [phone] after 5 PM and on weekends/holidays documented [...] Zepeda MD - 03/30/2017 1:48 PM EST [facility] [place]ative Note Patient Name: Cecilia Marx : [id number] MR#: [id number] Case Date: 03/30/2017 Surgeon: Surgeon(s) and Role: [...] Operative Note Patient Name: Cecilia Marx : [id number] MR#: [id number] Case Date: 03/30/2017 Surgeon: Surgeon(s) and Role: [...] PM EST 03/30/2017 2:20 PM EST Narrative [facility] - 03/30/2017 2:20 PM EST Specimen requisition ordered. ??Separate Pathology report to follow Resulting Agency Comment Spec In Lab Savana Blue MD PATHOLOGY/CYTOLO GY ORDERABLES Performing Organization Address City/State/[facility] Co de Phone Number [facility] [place] [address] * Surgical Pathology Report (03/30/2017 1:22 PM EST) Final Diagnosis [id number] ? Location: [facility] The signing pathologist has [...] Delon Lewis Verified: ??04/05/2017 ?Pathologist Performed at: ??-[facility] [place]. [place], [place], [place] DISCUSSION Two separate foci of atypical [...] clip is within slice XII. SECTIONS/PROCESSING: (1) pharmaceutical representative perpendicular slice I, orange-cranial margin; (2) pharmaceutical representative slice VIII; (3) pharmaceutical representative slice IX; (4) pharmaceutical representative slice X; (5) pharmaceutical representative slice XI; (6) pharmaceutical representative slice XII, with cylinder clip; (7) slice XIII, with lesion; (8) slice XIV, with lesion; (9) pharmaceutical representative perpendicular slice XV. (R9) Ischemic Time: 85 minutes ??chinyere Additional sections: (10) remaining slice VIII; (11) slice III; (12) fibrous tissue central slice V; (13-14) bisected slice VII. (R14) chinyere 04/05/2017 9:19 AM EST [facility] BREAST STRUCTURE / Unknown 03/30/2017 1:22 PM EST 03/30/2017 1:22 PM EST Savana Blue MD PATHOLOGY/CYTOLO GY ORDERABLES Performing Organization Address City/State/[facility] Co de Phone Number [facility] [place] [address] documented in this encounter Visit Diagnoses Not [...] 5% 100 mL (COMPLETED) 2 g, Intravenous, CHILD CARE TO O.R., 1 dose, On Arpita 03/30/17 [...] Routine documented in this encounter Care Teams Nanotechnician Relationship Specialty Start Date End Date Christine Fuentes PA [address] [place] [address] PCP - General Family Medicine 01/24/17 10/08/19 documented as of this encounter
--- OUTSIDE RECORDS SUMMARY | 2024-02-02 00:45 | XMS_ITS | Encounter Summary ---
Author Organization [facility] Address [facility] [place] [address] Care Team Providers Care Hand Drawer In Name Role Phone Christine Fuentes Primary Care Provider +1- [phone] Encounter Details Date Type Department Care Team (Late st Contact Info) Description 01/30/2018 Notes [place] [address] Evans Almanzar MD [facility] [place] [place] [address] Social History Tobacco Use Types Packs/Day Years [...] filedocumented in this encounter Care Teams Hand Drawer In Relationship Specialty Start Date End Date Christine Fuentes PA [address] [place] [address] PCP - General Family Medicine 01/24/17 10/08/19 documented as of this encounter
--- OUTSIDE RECORDS SUMMARY | 2024-02-02 00:45 | XMS_ITS | Encounter Summary ---
Author Organization [facility] [place] [address] Care Team Providers Care Vascular Surgeon Name Role Phone Christine Fuentes Primary Care Provider +1- [phone] Reason for Referral * Consultation (Routine) - Closed Specialty Diagnoses / Procedures Referred By Cherie abdul Referred To Contact Hematology and Oncology Diagnoses Breast cancer screening, high risk patient History of breast cancer Rhoda Brumfield APRN [facility] [address] St Hem Onc Office [address] [place] [phone] Referral ID Status Reason Start Date Expiration Date V isits Requested Visits Authorized [id number] Closed Consult, Test & Treat 04/13/2017 04/13/2018 1 1 Reason for Visit * Reason Comments Follow Up Surgery Encounter Details Date Type Department Care Team (Late st Contact Info) Description 04/13/2017 10:45 AM EST Office [place] [address] Rhoda Brumfield APRN [facility] [place] [address] Breast cancer screening, high risk patient; History [...] requests a referral to Dr Stack in [facility]. She declines an appt with genetics at [...] breast documented in this encounter Care Teams Vascular Surgeon Relationship Specialty Start Date End Date Christine Fuentes PA [address] [place] [address] PCP - General Family Medicine 01/24/17 10/08/19 documented as of this encounter
--- OUTSIDE RECORDS SUMMARY | 2024-02-02 00:45 | XMS_ITS | Encounter Summary ---
Author Organization [facility] Address [facility] [place] [address] Care Team Providers Care Recorder Helper Gravity Prospecting Name Role Phone Christine Fuentes Primary Care Provider +1- [phone] Encounter Details Date Type Department Care Team (Late st Contact Info) Description 03/08/2017 10:15 AM EST Office Visit Hematology [place] [address] Marla Brice MD [facility] [place] [address] Sclerosing adenosis of left breast Social History [...] s/p partial mastectomy and RT in 2009 ([facility] She was followed by surgeon for 5 [...] breast documented in this encounter Care Teams Recorder Helper Gravity Prospecting Relationship Specialty Start Date End Date Christine Fuentes PA [address] [place] [address] PCP - General Family Medicine 01/24/17 10/08/19 documented as of this encounter
--- OUTSIDE RECORDS SUMMARY | 2024-02-02 00:45 | XMS_ITS | Encounter Summary ---
Author Organization [facility] [place] [address] Care Team Providers Care Paste Plant Supervisor Name Role Phone Spike Sierra MD Primary Care Provider [phone] Encounter Details Date Type Department Care Team (Late st Contact Info) Description 04/14/2010 7:15 AM EST Follow-Up Radiation Oncology at [address] [phone] Ema Fiar MD [facility] DR [place] [address] Social History Tobacco Use Types Packs/Day Years Used Date Smoking Tobacco: Never Assessed Sex and Gender Information Value Date Recorded Sex Assigned at Not on file Gender Identity Not on file Sexual Orientation Not on file documented as of this encounter Plan of Treatment Not on file documented as of this encounter Visit Diagnoses Not on filedocumented in this encounter Care Teams Paste Plant Supervisor Relationship Specialty Start Date End Date Spike Sierra MD [address] [place], [place] [address] PCP - General 01/12/10 01/23/17 documented as of this encounter
--- OUTSIDE RECORDS SUMMARY | 2024-02-02 00:45 | XMS_ITS | Encounter Summary ---
Author Organization [place] [address] Care Team Providers Care Jig Inspector Name Role Phone Christine Fuentes Primary Care Provider +1- [phone] Reason for Visit * Consultation (Routine) - Closed Specialty Diagnoses / Procedures Referred By Cherie abdul Referred To Contact Hematology and Oncology Diagnoses Breast cancer screening, high risk patient History of breast cancer Rhoda Brumfield, [facility] [place] [address] Stj Hem Onc Office [address] [place] [phone] Referral ID Status Reason Start Date Expiration Date V isits Requested Visits Authorized [id number] Closed Consult, Test & Treat 04/13/2017 04/13/2018 1 1 Encounter Details Date Type Department Care Team (Late st Contact Info) Description 04/20/2017 3:00 PM EST Office Visit Hematology/Oncology at [address] [address] Amaury Stack MD [address] [place] [address] Atypical ductal hyperplasia of left breast [...] [ ] Not satisfied SOCIAL ASSESSMENT: See [facility] social assessment information entered. Support Systems: transportation [...] provided and reviewed with patient NA * Amauyr Stack MD - 04/20/2017 3:00 PM EST [...] by Marla Brice MD at [facility] Allergies Allergen Reactions ??? Nitrofurantoin [...] alter care of Patient. Yes. ?? COMPARISONS: [id number] ?? FINDINGS: The breasts of scattered fiber [...] Alvarez MD Verified: ??04/05/2017 ?Pathologist Performed at: ??-[facility] [place]. [place], [place], [place] DISCUSSION Two separate foci of atypical [...] breast documented in this encounter Care Teams Jig Inspector Relationship Specialty Start Date End Date Christine Fuentes PA [address] [place] [address] PCP - General Family Medicine 01/24/17 10/08/19 documented as of this encounter
--- OUTSIDE RECORDS SUMMARY | 2024-02-02 00:45 | XMS_ITS | Encounter Summary ---
Author Organization [facility] [place] [address] Care Team Providers Care Protein Specialist Name Role Phone Spike Sierra MD Primary Care Provider [phone] Encounter Details Date Type Department Care Team (Late st Contact Info) Description 04/27/2010 8:00 AM EST Follow-Up Radiation Oncology at [address] [phone] Ema Fair MD [facility] [place] [address] Social History Tobacco Use Types Packs/Day Years Used Date Smoking Tobacco: Never Assessed Sex and Gender Information Value Date Recorded Sex Assigned at Not on file Gender Identity Not on file Sexual Orientation Not on file documented as of this encounter Plan of Treatment Not on file documented as of this encounter Visit Diagnoses Not on filedocumented in this encounter Care Teams Protein Specialist Relationship Specialty Start Date End Date Spike Sierra MD [address] [place], [place] [address] PCP - General 01/12/10 01/23/17 documented as of this encounter
--- OUTSIDE RECORDS SUMMARY | 2024-02-02 00:45 | XMS_ITS | Encounter Summary ---
Author Organization [facility] Address [facility] [place] [address] Care Team Providers Care Woodworker Name Role Phone Spike Sierra MD Primary Care Provider Encounter Details Date Type Department Care Team (Latest Contact Info) Description 01/06/2017 - 01/06/2017 12:04 AM [facility] Hospital Encounter Radiology Library at [facility] [place] [address] Spike Nicolas MD [facility] [place] [address] Discharge Disposition: Home Social History Tobacco Use [...] Only Mammo (01/06/2017 12:00 AM EST) Narrative [facility] - 01/10/2017 4:30 PM EST This exam is for storage only and is auto-finalizing. Spike Nicolas MD IMG FILM LIBRARY ORD ERABLES Performing Organization Address City/State/[facility] Co de Phone Number [place], [place] documented in this encounter Visit Diagnoses Not on filedocumented in this encounter Care Teams Woodworker Relationship Specialty Start Date End Date Spike Sierra MD [address] [place] [address] PCP - General 01/12/10 01/23/17 documented as of this encounter
--- OUTSIDE RECORDS SUMMARY | 2024-02-02 00:45 | XMS_ITS | Encounter Summary ---
Author Organization [facility] [place] [address] Care Team Providers Care Bricklayer Tender Name Role Phone Spike Sierra MD Primary Care Provider Encounter Details Date Type Department Care Team (Late st Contact Info) Description 05/04/2010 8:00 AM EDT Office Visit Radiation Oncology at [address] [phone] Ema Fair MD [facility] [place] [address] Discharge Disposition: Home Social History Tobacco Use [...] on filedocumented in this encounter Care Teams Bricklayer Tender Relationship Specialty Start Date End Date Spike Sierra MD [address] [place], [place] [address] PCP - General 01/12/10 01/23/17 documented as of this encounter
--- OUTSIDE RECORDS SUMMARY | 2024-02-02 00:45 | XMS_ITS | Encounter Summary ---
[place] [address] Care Team Providers Care Software Design Engineer Name Role Phone Christine Fuentes Primary Care Provider +1- [phone] Encounter Details Date Type Department Care Team (Late st Contact Info) Description 01/22/2018 10:45 AM EST Office [place] [address] Rhoda Brumfield, GENERATION TECHNICIAN [facility] [place] [address] Breast cancer screening, high risk patient Social History Tobacco Use Types Packs/Day Years Used Date Smoking Tobacco: Former Cigarettes Q uit: 10/19/2011 Smokeless Tobacco: Never Sex and Gender Information Value Date Recorded Sex Assigned at Not on file Gender Identity Not on file Sexual Orientation Not on file documented as of this encounter Progress Notes * Rhoda Brumfield, GENERATION TECHNICIAN - 01/22/2018 10:45 AM EST Ms. Marx [...] patient documented in this encounter Care Teams Software Design Engineer Relationship Specialty Start Date End Date Christine Fuentes PA [address] [place] [address] PCP - General Family Medicine 01/24/17 10/08/19 documented as of this encounter
--- OUTSIDE RECORDS SUMMARY | 2024-02-02 00:45 | XMS_ITS | Encounter Summary ---
[place] [address] Care Team Providers Care Developer Support Engineer Name Role Phone Christine Fuentes Primary Care Provider [phone] Reason for Visit * Auth/Cert Specialty Diagnoses / Procedures Referred By Cherie abdul Referred To Contact Diagnoses LEFT BREAST COMPLEX SCLEROSING LESION Procedures PRO EXCISE BREAST LES W XRAY MARKER EXCISION LESION, BREAST W/ PREOP.MARKER (NEEDLE LOC.) (WRVU 6.69) MODIFIER WITH NEEDLE LOC., LESION #1 Referral ID Status Reason Start Date Expiration Date Visits Re quested Visits Authorized [id number] 1 1 Encounter Details Date Type Department Care Team (Late st Contact Info) Description 03/30/2017 11:40 AM EST - 03/30/2017 1:17 PM EST Surgery [place] [address] Savana Zepeda MD [facility] [place] [address] EXCISION LESION, BREAST W/ PREOP.MARKER (NEEDLE LOC.) [...] closest emergency room or call the hospital shell trim operator at [phone] and ask for physician stone circular sawyer covering for your physician. Questions or problems after 5pm or on a weekend: Call the [facility] shell trim operator at and ask for the physician stone circular sawyer covering for your doctor. * Patient Instructions* [...] 04/13/2017 10:45 AM Rhoda Brumfield APRN [facility] Call Doctor for: Worsening redness or drainage from your incision lasting longer than 5 days following surgery Any foul-smelling drainage from the incision Fevers greater than 101 degrees F Persistent nausea or vomiting (this may be related to opioid pain medications) Phone number for questions: [phone] before 5 PM weekdays [phone] after 5 PM and on weekends/holidays documented [...] Zepeda MD - 03/30/2017 1:48 PM EST [facility] Operative Note Patient Name: Cecilia Marx : [id number] MR#: [id number] Case Date: 03/30/2017 Surgeon: Surgeon(s) and Role: [...] Operative Note Patient Name: Cecilia Marx : [id number] MR#: [id number] Case Date: 03/30/2017 Surgeon: Surgeon(s) and Role: [...] PM EST 03/30/2017 2:20 PM EST Narrative [facility] - 03/30/2017 2:20 PM EST Specimen requisition ordered. ??Separate Pathology report to follow Resulting Agency Comment Spec In Lab Savana Blue MD PATHOLOGY/CYTOLO GY ORDERABLES Performing Organization Address City/State/[facility] Co de Phone Number [facility] [place] [place] [address] * Surgical Pathology Report (03/30/2017 1:22 PM EST) Final Diagnosis [id number] ? Location: [facility] The signing pathologist has [...] Delon Lewis Verified: ??04/05/2017 ?Pathologist Performed at: ??-[facility] Dept. of Pathology, [place], [place] DISCUSSION Two separate foci of atypical [...] clip is within slice XII. SECTIONS/PROCESSING: (1) artist representative perpendicular slice I, orange-cranial margin; (2) artist representative slice VIII; (3) artist representative slice IX; (4) artist representative slice X; (5) artist representative slice XI; (6) artist representative slice XII, with cylinder clip; (7) slice XIII, with lesion; (8) slice XIV, with lesion; (9) artist representative perpendicular slice XV. (R9) Ischemic Time: 85 minutes ??chinyere Additional sections: (10) remaining slice VIII; (11) slice III; (12) fibrous tissue central slice V; (13-14) bisected slice VII. (R14) chinyere 04/05/2017 9:19 AM EST [facility] BREAST STRUCTURE / Unknown 03/30/2017 1:22 PM EST 03/30/2017 1:22 PM EST Savana Blue MD PATHOLOGY/CYTOLO GY ORDERABLES Performing Organization Address City/State/[facility] Co de Phone Number [facility] [place] [address] documented in this encounter Visit Diagnoses Not [...] 5% 100 mL (COMPLETED) 2 g, Intravenous, REGULATORY INTERN TO O.R., 1 dose, On Arpita 03/30/17 [...] Routine documented in this encounter Care Teams Developer Support Engineer Relationship Specialty Start Date End Date Christine Fuentes PA [address] [place] [address] PCP - General Family Medicine 01/24/17 10/08/19 documented as of this encounter
--- OUTSIDE RECORDS SUMMARY | 2024-02-02 00:45 | XMS_ITS | Encounter Summary ---
[place] [address] Care Team Providers Care Senior Partner Name Role Phone Spike Sierra MD Primary Care Provider [phone] Encounter Details Date Type Department Care Team (Late st Contact Info) Description 01/02/2014 Telephone [place] [address] Yloette Waldrop APRN [address] [place] [address] DR RADIATION ONCOLOGY [place], [place] [id number] Social History Tobacco Use Types Packs/Day Years [...] 35-45. We will increase her vitamin D3 ay5901 IU a day. documented in this encounter Plan of Treatment Not on file documented as of this encounter Visit Diagnoses Not on filedocumented in this encounter Care Teams Senior Partner Relationship Specialty Start Date End Date Spike Sierra MD [address] [place] [address] PCP - General 01/12/10 01/23/17 documented as of this encounter
--- OUTSIDE RECORDS SUMMARY | 2024-02-02 00:45 | XMS_ITS | Encounter Summary ---
Author Organization [facility] [place] [address] Care Team Providers Care Rn Complex Care Name Role Phone Spike Sierra MD Primary Care Provider Reason for Visit * Reason Comments Radiation Follow-up Encounter Details Date Type Department Care Team (Late st Contact Info) Description 06/13/2011 3:30 PM EDT Follow-Up Radiation Oncology at [address] [phone] Ema Fair MD [facility] [place] [address] Breast CA (Primary Dx) Discharge Disposition: Home [...] Rad Onc FU could be done via Jose Juan Waldrop APRN, who is involved w/the Survivorship [...] site documented in this encounter Care Teams Rn Complex Care Relationship Specialty Start Date End Date Spike Sierra MD [address] [place] [address] PCP - General 01/12/10 01/23/17 documented as of this encounter
--- OUTSIDE RECORDS SUMMARY | 2024-02-02 00:45 | XMS_ITS | Encounter Summary ---
Author Organization [facility] Address [facility] [place] [address] Care Team Providers Care Residential Insurance Inspector Name Role Phone Spike Sierra MD Primary Care Provider Encounter Details Date Type Department Care Team (Latest Contact Info) Description 01/20/2017 4:53 PM EST - 01/20/2017 11:59 PM EST Hospital Encounter Radiology Library at [facility] [place] [address] Christine Fuentes PA [address] [place] [address] Abnormal finding on breast imaging Discharge Disposition: [...] ultrasound Please note: The interpretation of the [facility] Breast Imaging Radiologist subspecialist may differ from the original radiologists interpretation. This is usually not due to a deficiency of the original interpreting radiologist, rather due to the greater skill level afforded by sub-specialization in the field and/or reasonable variations in interpretations. If you have a concern regarding the [facility] interpretation you may contact the [facility] Breast Dust Box Worker Office at . Narrative 01/23/2017 5:03 PM [...] alter care of Patient. Yes. ?? COMPARISONS: [phone] FINDINGS: The breasts of scattered fiber glandular [...] alter the care of thispatient. STUDIES FROM: [facility] DATES: 01/06/2017 CLINICAL HISTORY: ABNORMAL IMAGIN-LEFT BREAST, CAT 3; ? BX; ? MOREIMAGING; What Modality is the exam? Mammography; Body Part (please add comments asnecessary): LEFT BREAST; I believe a reinterpretation of this exam may alter care of Patient. Yes. COMPARISONS: [phone] FINDINGS: The breasts of scattered fiber glandular [...] ultrasound Please note: The interpretation of the [facility] Radiologist subspecialist may differ from the original radiologists interpretation. This is usually not due to a deficiency of the original interpreting radiologist, rather due to the greater skill level affordedby sub-specialization in the field and/or reasonable variations ininterpretations. If you have a concern regarding the [facility] interpretation you may [facility] Breast Dust Box Worker Office at . Christine COTO IMG OUTSIDE INTERP RETATION ORDERABLES documented in this encounter Visit Diagnoses Diagnosis Abnormal finding on breast imaging Other (abnormal) findings on radiological examination of breast documented in this encounter Care Teams Residential Insurance Inspector Relationship Specialty Start Date End Date Spike Sierra MD [address] [place] [address] PCP - General 01/12/10 01/23/17 documented as of this encounter
--- OUTSIDE RECORDS SUMMARY | 2024-02-02 00:45 | XMS_ITS | Encounter Summary ---
Author Organization [facility] [place] [address] Care Team Providers Care Sustainability Manager Name Role Phone Spike Sierra MD Primary Care Provider Reason for Visit * Reason Comments Breast Cancer f/u Encounter Details Date Type Department Care Team (Late st Contact Info) Description 06/14/2010 11:00 AM EDT Follow-Up Radiation Oncology at [address] [phone] Ema Fair MD [facility] [place] [address] DCIS (ductal carcinoma in situ) of breast [...] in this encounter Progress Notes * Nathaniel, Sr. Vendor Management Associate - 08/24/2010 7:39 PM EDT * Ema [...] breast documented in this encounter Care Teams Sustainability Manager Relationship Specialty Start Date End Date Spike Sierra MD [address] [place] [address] PCP - General 01/12/10 01/23/17 documented as of this encounter
--- OUTSIDE RECORDS SUMMARY | 2024-02-02 00:45 | XMS_ITS | Encounter Summary ---
Author Organization [facility] [place] [address] Care Team Providers Care Bench Mechanic Name Role Phone Spike Sierra MD Primary Care Provider Reason for Visit * Reason Comments Radiation Follow-up breast cancer Encounter Details Date Type Department Care Team (Late st Contact Info) Description 12/13/2012 2:00 PM EDT Follow-Up Radiation Oncology at [address] [phone] Yolette Waldrop APRN [address] [place] [address] [place] [address] Breast cancer (Primary Dx) Discharge [...] this encounter Progress Notes * Yolette Waldrop, VOLLEYBALL ASSEMBLER - 12/13/2012 2:17 PM EDT Subjective: Patient [...] Dr. Forrester & he referred her [place] [facility] [place] stereotactic bx. 01/06/10 limited U/S R [...] Valentine, who does not rec MRI. 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 1st child @ age [...] rec'd. Surveillance: ----11/21/11 B mmg, done @ [facility], requested by Dr. 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 She had a normal mammogram at [facility] (we will request a copy). We [...] site documented in this encounter Care Teams Bench Mechanic Relationship Specialty Start Date End Date Spike Sierra MD [address] [place] [address] PCP - General 01/12/10 01/23/17 documented as of this encounter
--- OUTSIDE RECORDS SUMMARY | 2024-02-02 00:45 | XMS_ITS | Encounter Summary ---
Author Organization [facility] [place] [address] Care Team Providers Care Maritime Officer Name Role Phone Christine Fuentes Primary Care Provider [phone]- [phone] Reason for Visit * Auth/Cert Specialty Diagnoses / Procedures Referred By Cherie abdul Referred To Contact Diagnoses LEFT BREAST COMPLEX SCLEROSING LESION Procedures PRO EXCISE BREAST LES W XRAY MARKER EXCISION LESION, BREAST W/ PREOP.MARKER (NEEDLE LOC.) (WRVU 6.69) MODIFIER WITH NEEDLE LOC., LESION #1 Referral ID Status Reason Start Date Expiration Date Visits Re quested Visits Authorized [id number] 1 1 Encounter Details Date Type Department Care Team (Late st Contact Info) Description 03/30/2017 12:44 PM EST Anesthesia Event [facility] [place] [address] Joey Pham MD [facility] [place] [address] Vahid Osorio MD [facility] [place] [address] Anesthesia Record Procedure Summary Procedure Name Responsible [...] Pham MD - 03/30/2017 2:19 PM EST [facility] Department of Anesthesiology Post-procedure Note Patient: Cecilia Marx Procedure Summary Date Anesthesia Start Anesthesia Stop Room / Location 03/30/17 1244 1408 [facility] OR / [facility] Procedure Diagnosis Surgeon Responsible Provider EXCISION LESION, BREAST W/ PREOP.MARKER (NEEDLE LOC.) (WRVU 6.69) (Left Axilla); MODIFIER WITH NEEDLE LOC., LESION #1 (Left Breast) (LEFT BREAST COMPLEX SCLEROSING LESION) Marla Brice MD Nguyen, Tung T, MD All Anesthesia Providers: Anesthesiologist: Joey Pham MD FACILITY ADMINISTRATOR: Chapis Santoro CRNA Most Recent Vitals: 03/30/17 1404 BP: 115/79 Pulse: 89 Resp: 16 Temp: 36.8 ??C (98.2 ??F) SpO2: 93% Pain 0 (03/30/17 1404) Patient Location: PACU/[facility] Level of Consciousness: Awake and Alert Pain [...] with patient and spouse. Plan discussed with FACILITY ADMINISTRATOR. PAT Staff Note Attending NOTE Brief HPI: [...] dextrose 5% 100 mL 2 g, Intravenous, PUMP INSTALLER TO O.R., 1 dose, On Arpita 03/30/17 [...] 1 mg/mL multi-dose injection PRN, Starting on Arpita 03/30/17 at 1254, Until Arpita 03/30/17 at [...] mL/hr documented in this encounter Care Teams Maritime Officer Relationship Specialty Start Date End Date Christine Fuentes PA [address] [place] [address] PCP - General Family Medicine 01/24/17 10/08/19 documented as of this encounter
--- OUTSIDE RECORDS SUMMARY | 2024-02-02 00:45 | XMS_ITS | Encounter Summary ---
Author Organization [facility] [place] [address] Care Team Providers Care Executive Community Planning Name Role Phone Spike Sierra MD Primary Care Provider [phone] Encounter Details Date Type Department Care Team (Latest Contact Info) Description 01/17/2014 Unscheduled Encounter Hematology Oncology at [address] [phone] [facility] [place] [address] Dietary surveillance and counseling Social History Tobacco Use Types Packs/Day Years Used Date Smoking Tobacco: Former Cigarettes Q uit: 10/19/2011 Sex and Gender Information Value Date Recorded Sex Assigned at Not on file Gender Identity Not on file Sexual Orientation Not on file documented as of this encounter Progress Notes * Denzel Payne, MUMTAZ - 01/17/2014 1:00 PM EST [facility] Dietitian Follow Up Assessment Seen By: Elida Payne, MS, RD, CASING OPERATOR, LD Reason for visit: Wanting to lose [...] have eggs and toast Noon: can of FlyCleanerso lite soup and pickels Pm: lean cuisine [...] up to 17 min/treadmill). Logging calories, likes [employer] and the meal suggestions, but didn't feel [...] if suboptimal in 3-6 mos. The [facility] series from [facility] September 2008 showed a lower risk of [...] counseling documented in this encounter Care Teams Executive Community Planning Relationship Specialty Start Date End Date Spike Sierra MD [address] [place] [address] PCP - General 01/12/10 01/23/17 documented as of this encounter
--- OUTSIDE RECORDS SUMMARY | 2024-02-02 00:45 | XMS_ITS | Encounter Summary ---
Author Organization [facility] Address [facility] [place] [address] Care Team Providers Care Passenger Tire Builder Name Role Phone Spike Sierra MD Primary Care Provider Reason for Visit * Reason Comments Radiation Follow-up Encounter Details Date Type Department Care Team (Late st Contact Info) Description 12/13/2010 1:30 PM EDT Follow-Up Radiation Oncology at [address] [phone] Ema Fair MD [facility] [place] [address] Breast ca (Primary Dx) Discharge Disposition: Home [...] site documented in this encounter Care Teams Passenger Tire Builder Relationship Specialty Start Date End Date Spike Sierra MD [address] [place] [address] PCP - General 01/12/10 01/23/17 documented as of this encounter
--- OUTSIDE RECORDS SUMMARY | 2024-02-02 00:45 | XMS_ITS | Encounter Summary ---
Author Organization [facility] Address [facility] [place] [address] Care Team Providers Care Asphalt Blender Name Role Phone Spike Sierra MD Primary Care Provider Encounter Details Date Type Department Care Team (Latest Contact Info) Description 01/04/2016 - 01/04/2016 11:59 PM EST Hospital Encounter Radiology Library at [facility] [place] [place] [address] Spike Nicolas MD [facility] [place] [address] Discharge Disposition: Home Social History Tobacco Use [...] Only Mammo (01/04/2016 12:00 AM EST) Narrative [facility] - 01/13/2017 9:06 AM EST This exam is for storage only and is auto-finalizing. Spike Nicolas MD IMG FILM LIBRARY ORD ERABLES Performing Organization Address City/State/[facility] Co de Phone Number [place], [place] documented in this encounter Visit Diagnoses Not on filedocumented in this encounter Care Teams Asphalt Blender Relationship Specialty Start Date End Date Spike Sierra MD [address] [place] [address] PCP - General 01/12/10 01/23/17 documented as of this encounter
--- OUTSIDE RECORDS SUMMARY | 2024-02-02 00:45 | XMS_ITS | Encounter Summary ---
Author Organization [facility] [place] [address] Care Team Providers Care Director Of Vocational Guidance Name Role Phone Spike Sierra MD Primary Care Provider [phone] Encounter Details Date Type Department Care Team (Late st Contact Info) Description 03/07/2014 9:00 AM EST Ancillary Appointment Hematology Oncology at [address] [phone] [facility] [place] [address] Social History Tobacco Use Types Packs/Day Years Used Date Smoking Tobacco: Former Cigarettes Q uit: 10/19/2011 Sex and Gender Information Value Date Recorded Sex Assigned at Not on file Gender Identity Not on file Sexual Orientation Not on file documented as of this encounter Progress Notes * Denzel Payne RD - 03/07/2014 8:59 AM EST [facility] Dietitian Follow Up Assessment Seen By: Elida Payne, MS, RD, INTERNAL COMBUSTION ENGINE SUBASSEMBLER, LD Reason for visit: Wanting to lose [...] meal planning and preparation: Shares with , Tiger. He's a wonderful cook and loves to [...] up to 17 min/treadmill). Logging calories, likes [employer] and [employer]Now and the meal suggestions, but didn't feel [...] levels, if suboptimal in 3-6 mos. The [facility] series from [facility] September 2008 showed a lower [...] better -- She lost 1 lb during [place] holidays, which her goal was to maintain. [...] (AND) -- Stop Stress Eating -- Healthy food service kitchen supervisor (Fore[employer]) Other Recommendations: Monitoring and Evaluation: Will follow up with Mrs. Marx in one week (s) to re-evaluate. documented in this encounter Plan of Treatment Not on file documented as of this encounter Visit Diagnoses Not on filedocumented in this encounter Care Teams Director Of Vocational Guidance Relationship Specialty Start Date End Date Spike Sierra MD [address] [place] [address] PCP - General 01/12/10 01/23/17 documented as of this encounter
--- OUTSIDE RECORDS SUMMARY | 2024-02-02 00:45 | XMS_ITS | Encounter Summary ---
Author Organization [facility] [place] [address] Care Team Providers Care Foot Miter Operator Name Role Phone Spike Sierra MD Primary Care Provider [phone] Encounter Details Date Type Department Care Team (Late st Contact Info) Description 04/08/2014 1:00 PM EST Ancillary Appointment Hematology Oncology at [address] [phone] [facility] [place] [address] Social History Tobacco Use Types Packs/Day Years Used Date Smoking Tobacco: Former Cigarettes Q uit: 10/19/2011 Sex and Gender Information Value Date Recorded Sex Assigned at Not on file Gender Identity Not on file Sexual Orientation Not on file documented as of this encounter Progress Notes * Denzel Payne RD - 04/08/2014 1:10 PM EST [facility] Dietitian Follow Up Assessment Seen By: Elida Payne, MS, RD, FARMWORKER CRANBERRY, LD Reason for visit: Wanting to lose [...] needs: 1.5 - 2 L Food Intake: [place] she fell off the wagon in February [...] calories for about the first , likes [employer] and InfoRem[employer] and the meal suggestions, but didn't feel [...] levels, if suboptimal in 3-6 mos. The [facility] series from [facility] September 2008 showed a lower risk of [...] We reviewed workout dvds, websites with videos ([employer]) -- Holding herself accountable. Log/Count calories (using [...] (AND) -- Stop Stress Eating -- Healthy pilot plant operator helper (Jump[employer]ter) -- pedometer Other Recommendations: Monitoring and Evaluation: Will follow up with Mrs. Marx in one week (s) to re-evaluate. documented in this encounter Plan of Treatment Not on file documented as of this encounter Visit Diagnoses Not on filedocumented in this encounter Care Teams Foot Miter Operator Relationship Specialty Start Date End Date Spike Sierra MD [address] [place] [address] PCP - General 01/12/10 01/23/17 documented as of this encounter
--- OUTSIDE RECORDS SUMMARY | 2024-02-02 00:45 | XMS_ITS | Encounter Summary ---
Author Organization [facility] Address [facility] [place] [address] Care Team Providers Care Lute Packer Or Applier Name Role Phone Spike Sierra MD Primary Care Provider Encounter Details Date Type Department Care Team (Latest Contact Info) Description 12/31/2014 - 12/31/2014 12:04 AM [facility] Hospital Encounter Radiology Library [place] [facility] [address] Spike Nicolas MD [facility] [place] [address] Screening breast examination Discharge Disposition: Home Social [...] Only Mammo (12/31/2014 12:00 AM EST) Narrative [facility] - 01/11/2017 4:47 PM EST This exam is for storage only and is auto-finalizing. Spike Nicolas MD IMG FILM LIBRARY ORD ERABLES [place], [place] documented in this encounter Visit Diagnoses Diagnosis Screening breast examination Other screening breast examination documented in this encounter Care Teams Lute Packer Or Applier Relationship Specialty Start Date End Date Spike Sierra MD [address] [place] [address] PCP - General 01/12/10 01/23/17 documented as of this encounter
--- OUTSIDE RECORDS SUMMARY | 2024-02-02 00:45 | XMS_ITS | Encounter Summary ---
Author Organization Formerly [facility] Address [facility] [place] [address] Care Team Providers Care Brancher Name Role Phone Christine Fuentes Primary Care Provider +1- [phone] Encounter Details Date Type Department Care Team (Latest Contact Info) Description 02/01/2017 12:40 PM EST - 02/01/2017 11:59 PM EST Hospital [place] [address] Anita Valentine MD [facility] [place] [address] Abnormal finding on breast imaging Discharge Disposition: [...] Report (02/01/2017 1:46 PM EST) Final Diagnosis [id number] ? Location: 3L The signing pathologist has [...] Alayna Valdes Verified: ??02/02/2017 ?Pathologist Performed at: ??-[facility] Dept. of Pathology, [place], [place] DISCUSSION Multiple foci of complex sclerosing [...] sing: (T2) ??shb 02/02/2017 2:27 PM EST [facility] BREAST STRUCTURE / Unknown 02/01/2017 1:46 PM EST 02/01/2017 1:46 PM EST Evans Almanzar MD PATHOLOGY/CYTOLOGY ORDERABLES [facility] [place] [address] * Mammo Breast Us Limited Left (02/01/2017 [...] core biopsy specimens were obtained using a Syncronex Eviva 9g 20mm device. A specimen radiograph confirms the mass with distorted edges to be contained within it. This also contains the incidental microcalcifications associated with the area of concern. A M[employer]is Republic[employer] Eviva cylinder marker clip was deployed. A [...] breast documented in this encounter Care Teams Brancher Relationship Specialty Start Date End Date Christine Fuentes PA [address] [place] [address] PCP - General Family Medicine 01/24/17 10/08/19 documented as of this encounter
--- OUTSIDE RECORDS SUMMARY | 2024-02-02 00:45 | XMS_ITS | Encounter Summary ---
Author Organization [facility] [place] [address] Care Team Providers Care Nps Name Role Phone Christine Fuentes Primary Care Provider +1- [phone] Encounter Details Date Type Department Care Team (Late st Contact Info) Description 03/30/2017 8:41 AM EST - 03/30/2017 9:23 AM EST Hospital [place] [address] Marla Brice MD [facility] [place] [place] [address] Breast lesion Discharge Disposition: Home Social History [...] mg documented in this encounter Care Teams Nps Relationship Specialty Start Date End Date Christine Fuentes PA [address] [place] [address] PCP - General Family Medicine 01/24/17 10/08/19 documented as of this encounter
--- OUTSIDE RECORDS SUMMARY | 2024-02-02 00:45 | XMS_ITS | Encounter Summary ---
[place] [address] Care Team Providers Care Fish Peddler Name Role Phone Spike Sierra MD Primary Care Provider Reason for Visit * Reason Onset Date Comments Other 07/05/2011 answer patient q uestion Encounter Details Date Type Department Care Team (Late st Contact Info) Description 07/05/2011 Telephone Radiation Oncology at [address] [phone] Daniel Boyer, RN Other (answer patient question) [...] 05, 2011 8:50 AM ------ Message from: RQAUEL LOWRY Created: MonJuly 04, 2011 11:53 AM Regarding: re:upcoming appt Contact: [phone] Please call pt back. She said there was some confusion with what she thought the upcoming appt was going to be about. I called patient and she confirmed that she received appt to see the nurse practitioner,Yolette Coon 07/13, but she feels it is too soon after seeing Dr Fair in May. She states she is now seeinga Zoroastrianism counselor through her mu-ism and this is helping with her depression. She is agreeable to seeing the nurse practitioner, but prefers to wait until the routine follow up appt would be. Shewishes to cancel the 07/13 appointment. She voiced that she will call this clinic if she feels the current arrangement w/ her mu-ism is not helpful. Plan: Will cancel the 07/13 appt w/ C. Pace. I will ask Dr Fair in this week's team meeting, when she wishes for the appt to be rescheduled to. documented in this encounter Plan of Treatment Not on file documented as of this encounter Visit Diagnoses Not on filedocumented in this encounter Care Teams Fish Peddler Relationship Specialty Start Date End Date Spike Sierra MD [address] [place] [address] PCP - General 01/12/10 01/23/17 documented as of this encounter
--- OUTSIDE RECORDS SUMMARY | 2024-02-02 00:45 | XMS_ITS | Encounter Summary ---
Author Organization [facility] Address [facility] [place] [address] Care Team Providers Care Grocery Associate Name Role Phone Christine Fuentes Primary Care Provider +1- [phone] Encounter Details Date Type Department Care Team (Late st Contact Info) Description 03/30/2017 Notes [place] [address] Evans Almanzar MD [facility] [place] [address] Social History Tobacco Use Types Packs/Day Years [...] on filedocumented in this encounter Care Teams Grocery Associate Relationship Specialty Start Date End Date Christine Fuentes PA [address] [place] [address] PCP - General Family Medicine 01/24/17 10/08/19 documented as of this encounter
--- OUTSIDE RECORDS SUMMARY | 2024-02-02 00:45 | XMS_ITS | Encounter Summary ---
Author Organization [facility]ly [facility] [place] [address] Care Team Providers Care Station Baggage Porter Name Role Phone Spike Sierra MD Primary Care Provider [phone] Encounter Details Date Type Department Care Team (Latest Contact Info) Description 11/28/2011 - 11/28/2011 11:59 PM EDT Hospital Encounter Radiology Library [place] [address] Spike Nicolas MD [facility] [place] [address] Screening breast examination Discharge Disposition: Home Social [...] Only Mammo (11/28/2011 12:00 AM EDT) Narrative [facility] - 01/11/2017 4:30 PM EST This exam is for storage only and is auto-finalizing. Spike Nicolas MD G FILM LIBRARY ORD ERABLES [place], [place] documented in this encounter Visit Diagnoses Diagnosis Screening breast examination Other screening breast examination documented in this encounter Care Teams Station Baggage Porter Relationship Specialty Start Date End Date Spike Sierra MD [address] [place] [address] PCP - General 01/12/10 01/23/17 documented as of this encounter
--- OUTSIDE RECORDS SUMMARY | 2024-02-02 00:45 | XMS_ITS | Encounter Summary ---
Author Organization [facility] Address [facility] [place] [address] Care Team Providers Care Integrated Circuit Design Engineer Name Role Phone Christine Fuentes Primary Care Provider +1- [phone] Reason for Visit * Consultation (Routine) - Closed Specialty Diagnoses / Procedures Referred By Cherie abdul Referred To Contact Hematology and Oncology Diagnoses Abnormal magnetic resonance imaging of left breast Christine Fuentes PA [address] [place] [address] [facility] Hem [place]c [address] [place] [address] Referral ID Status Reason Start Date Expiration Date V isits Requested Visits Authorized [id number] Closed Consult, Test & Treat PCP Updated and/or Approved 01/20/2017 01/20/2018 1 1 Encounter Details Date Type Department Care Team (Latest Contact Info) Description 02/01/2017 12:38 PM EST - 02/01/2017 12:39 PM EST Hospital Encounter [place] [address] Anita Valentine MD [facility] DIAGNOSTIC [place] [address] Abnormal finding on breast imaging [...] core biopsy specimens were obtained using a Lingohubiva 9g 20mm device. A specimen radiograph confirms [...] core biopsy specimens were obtained using a Surfwax Media Eviva 9g 20mm device. A specimen radiograph [...] core biopsy specimens were obtained using a Sur[employer] Media Eviva 9g 20mmdevice. A specimen radiograph confirms [...] PM EST 02/01/2017 1:46 PM EST Narrative [facility] - 02/01/2017 1:46 PM EST Specimen requisition ordered. ??Separate Pathology report to follow Evans Almanzar MD PATHOLOGY/CYTOLOGY ORDERABLES [facility] [place] [address] documented in this encounter Visit Diagnoses Diagnosis [...] mg documented in this encounter Care Teams Integrated Circuit Design Engineer Relationship Specialty Start Date End Date Christine Fuentes PA [address] [place] [address] PCP - General Family Medicine 01/24/17 10/08/19 documented as of this encounter
--- OUTSIDE RECORDS SUMMARY | 2024-02-02 00:45 | XMS_ITS | Encounter Summary ---
Author Organization [facility] Address [facility] [place] [address] Care Team Providers Care Revenue Cycle Analyst Name Role Phone Christine Fuentes Primary Care Provider +1- [phone] Encounter Details Date Type Department Care Team (Late st Contact Info) Description 03/10/2017 Orders Only [place] [address] Marla Brice MD [facility] [place] [address] Breast lesion Social History Tobacco Use Types [...] disorder documented in this encounter Care Teams Revenue Cycle Analyst Relationship Specialty Start Date End Date Christine Fuentes PA [address] [place] [address] PCP - General Family Medicine 01/24/17 10/08/19 documented as of this encounter
--- OUTSIDE RECORDS SUMMARY | 2024-02-02 00:45 | XMS_ITS | Encounter Summary ---
Author Organization [facility] Address [facility] [place] [address] Care Team Providers Care Clinical Practice Consultant Name Role Phone Christine Fuentes Primary Care Provider +1- [phone] Encounter Details Date Type Department Care Team (Latest Contact Info) Description 01/30/2018 12:39 PM EST - 01/30/2018 1:02 PM EST Hospital En[place] [address] Anita Valentine MD [facility] [place] [address] Abnormal finding on breast imaging Discharge Disposition: [...] breast documented in this encounter Care Teams Clinical Practice Consultant Relationship Specialty Start Date End Date Christine Fuentes PA [address] [place] [address] PCP - General Family Medicine 01/24/17 10/08/19 documented as of this encounter
--- OUTSIDE RECORDS SUMMARY | 2024-02-02 00:45 | XMS_ITS | Encounter Summary ---
Author Organization [facility] Address [facility] [place] [address] Care Team Providers Care Environmental Conservation Officer Name Role Phone Spike Sierra MD Primary Care Provider [phone] Encounter Details Date Type Department Care Team (Latest Contact Info) Description 07/01/2015 - 07/01/2015 11:59 PM EDT Hospital Encounter Radiology Library [place] [address] Spike Nicolas MD [facility] [place] [address] Discharge Disposition: Home Social History Tobacco Use [...] Nicolas MD IMG FILM LIBRARY ORD ERABLES [place], [place] documented in this encounter Visit Diagnoses Not on filedocumented in this encounter Care Teams Environmental Conservation Officer Relationship Specialty Start Date End Date Spike Sierra MD [address] [place] [address] PCP - General 01/12/10 01/23/17 documented as of this encounter
--- OUTSIDE RECORDS SUMMARY | 2024-02-02 00:45 | XMS_ITS | Encounter Summary ---
Author Organization [facility] [place] [address] Care Team Providers Care Gripper Machine Operator Name Role Phone Spike Sierra MD Primary Care Provider [phone] Encounter Details Date Type Department Care Team (Late st Contact Info) Description 01/31/2014 9:00 AM EST Ancillary Appointment Hematology Oncology at [address] [phone] [facility] DR [place] [address] Social History Tobacco Use Types Packs/Day Years Used Date Smoking Tobacco: Former Cigarettes Q uit: 10/19/2011 Sex and Gender Information Value Date Recorded Sex Assigned at Not on file Gender Identity Not on file Sexual Orientation Not on file documented as of this encounter Progress Notes * Denzel Payne RD - 01/31/2014 9:[address] [facility] Dietitian Follow Up Assessment Seen By: Elida Payne, MS, RD, TENANT COORDINATOR, LD Reason for visit: Wanting to [...] up to 17 min/treadmill). Logging calories, likes [employer] and the meal suggestions, but didn't feel [...] levels, if suboptimal in 3-6 mos. [facility] series from [facility] September 2008 showed a lower risk of [...] on filedocumented in this encounter Care Teams Gripper Machine Operator Relationship Specialty Start Date End Date Spike Sierra MD [address] [place] [address] PCP - General 01/12/10 01/23/17 documented as of this encounter
--- OUTSIDE RECORDS SUMMARY | 2024-02-02 00:45 | XMS_ITS | Encounter Summary ---
Author Organization [facility] Address [facility] [place] [address] Care Team Providers Care Tire Bagger Name Role Phone Christine Fuentes Primary Care Provider +1- [phone] Encounter Details Date Type Department Care Team (Late st Contact Info) Description 03/30/2017 8:[address] [facility] Hospital En[place] [address] Marla Brice MD [facility] [place] [address] Breast lesion Discharge Disposition: Home Social History [...] disorder documented in this encounter Care Teams Tire Bagger Relationship Specialty Start Date End Date Christine Fuentes PA [address] [place] [address] PCP - General Family Medicine 01/24/17 10/08/19 documented as of this encounter
--- OUTSIDE RECORDS SUMMARY | 2024-02-02 00:45 | XMS_ITS | Encounter Summary ---
Author Organization [facility] [place] [address] Care Team Providers Care Rn Resource Nurse Name Role Phone Spike Sierra MD Primary Care Provider [phone] Reason for Visit * Reason Comments Radiation Follow-up Encounter Details Date Type Department Care Team (Late st Contact Info) Description 12/19/2011 3:00 PM EDT Follow-Up Radiation Oncology at [address] [phone] Ema Fair MD [facility] [place] [address] Breast CA (Primary Dx) Discharge Disposition: Home [...] FU today. 11/21/11 B mmg, done @ [facility], requested by Dr. Forrester, whom she [...] and Plan: [place]. Request mmg report from [facility]. I rec'd FU in 6 mos, [...] documented in this encounter Care Teams Rn Resource Nurse Relationship Specialty Start Date End Date Spike Sierra MD [address] [place] [address] PCP - General 01/12/10 01/23/17 documented as of this encounter
--- OUTSIDE RECORDS SUMMARY | 2024-02-02 00:45 | XMS_ITS | Encounter Summary ---
Author Organization [facility] [place] [address] Care Team Providers Care Lacer And Tier Name Role Phone Spike Sierra MD Primary Care Provider Encounter Details Date Type Department Care Team (Latest Contact Info) Description 11/08/2010 - 11/08/2010 11:59 PM EDT Hospital Encounter Radiology Library at [facility] [place] [address] Spike Nicolas MD [facility] [place] [address] Pain Discharge Disposition: Home Social History Tobacco [...] Only Mammo (11/08/2010 12:00 AM EDT) Narrative [facility] - 01/11/2017 4:26 PM EST This exam is for storage only and is auto-finalizing. Spike Nicolas MD IMG FILM LIBRARY ORD ERABLES Performing Organization Address City/State/[facility] Co de Phone Number [place], [place] documented in this encounter Visit Diagnoses Diagnosis Pain Generalized pain documented in this encounter Care Teams Lacer And Tier Relationship Specialty Start Date End Date Spike Sierra MD [address] [place] [address] PCP - General 01/12/10 01/23/17 documented as of this encounter
--- OUTSIDE RECORDS SUMMARY | 2024-02-02 00:45 | XMS_ITS | Encounter Summary ---
Author Organization [facility] Address [facility] [place] [address] Care Team Providers Care Cash Processor Name Role Phone Spike Sierra MD Primary Care Provider [phone] Encounter Details Date Type Department Care Team (Latest Contact Info) Description 01/06/2017 12:05 AM EST - 01/06/2017 11:59 PM EST Hospital Encounter Radiology Library at [facility] [place] [place] [address] Spike Nicolas MD [facility] [place] [address] Discharge Disposition: Home Social History Tobacco Use [...] Only Mammo (01/06/2017 12:05 AM EST) N[facility]ative [facility] - 01/10/2017 4:31 PM EST This exam is for storage only and is auto-finalizing. Spike Nicolas MD G FILM LIBRARY ORD ERABLES [place], [place] documented in this encounter Visit Diagnoses Not on filedocumented in this encounter Care Teams Cash Processor Relationship Specialty Start Date End Date Spike Sierra MD [address] [place] [address] PCP - General 01/12/10 01/23/17 documented as of this encounter
--- OUTSIDE RECORDS SUMMARY | 2024-02-02 00:45 | XMS_ITS | Encounter Summary ---
Author Organization [place] [address] Care Team Providers Care Auditing Control Clerk Name Role Phone Christine Fuentes Primary Care Provider +1- [phone] Encounter Details Date Type Department Care Team (Late st Contact Info) Description 01/22/2018 9:23 AM EST - 01/22/2018 11:59 PM EST Hospital [place] [address] Rhoda Brumfield, CERTIFIED ENERGY MANAGER [facility] [address] Breast cancer screening, high risk patient; History [...] breast documented in this encounter Care Teams Auditing Control Clerk Relationship Specialty Start Date End Date Christine Fuentes PA [address] [place] [address] PCP - General Family Medicine 01/24/17 10/08/19 documented as of this encounter
--- OUTSIDE RECORDS SUMMARY | 2024-02-02 00:45 | XMS_ITS | Encounter Summary ---
Author Organization [facility] Address [facility] [place] [place] [address] Care Team Providers Care Technical Maintenance Specialist Name Role Phone Spike Sierra MD Primary Care Provider [phone] Encounter Details Date Type Department Care Team (Latest Contact Info) Description 12/24/2013 - 12/24/2013 11:59 PM [facility] Hospital Encounter Radiology Library [place] [address] Spike Nicolas MD [facility] DIAGNO[place] [address] Screening breast examination Discharge Disposition: Home Social [...] Nicolas MD G FILM LIBRARY ORD ERABLES [place], [place] documented in this encounter Visit Diagnoses Diagnosis Screening breast examination Other screening breast examination documented in this encounter Care Teams Technical Maintenance Specialist Relationship Specialty Start Date End Date Spike Sierra MD [address] [place] [address] PCP - General 01/12/10 01/23/17 documented as of this encounter
--- OUTSIDE RECORDS SUMMARY | 2024-02-02 00:45 | XMS_ITS | Encounter Summary ---
Author Organization [facility] [place] [address] Care Team Providers Care Vice President Of Product Marketing Name Role Phone Spike Sierra MD Primary Care Provider [phone] Encounter Details Date Type Department Care Team (Late st Contact Info) Description 04/20/2010 8:00 AM EST Follow-Up Radiation Oncology at [address] [phone] Ema Fair MD [facility] [place] [address] Social History Tobacco Use Types Packs/Day Years [...] this encounter Care Teams Vice President Of Product Marketing Relationship Specialty Start Date End Date Spike Sierra MD [address] [place], [place] [address] PCP - General 01/12/10 01/23/17 documented as of this encounter
--- OUTSIDE RECORDS SUMMARY | 2024-02-02 00:45 | XMS_ITS | Encounter Summary ---
Author Organization [facility] [place] [address] Care Team Providers Care Trestle Mainternance Laborer Name Role Phone Spike Sierra MD Primary Care Provider Reason for Referral * Consultation (Routine) - Closed Specialty Diagnoses / Procedures Referred By Cherie abdul Referred To Contact Hematology and Oncology Diagnoses Breast cancer, right Yolette Waldrop PRODUCT DEVELOPMENT SPECIALIST [facility] [place] [address] Stj Hem Onc Infusion [address] [place] [phone] Referral ID Status Reason Start Date Expiration Date V isits Requested Visits Authorized [id number] Closed Continuity of Care 12/27/2013 06/25/2014 1 1 Reason for Visit * Reason Comments Radiation Follow-up breast cancer Encounter Details Date Type Department Care Team (Late st Contact Info) Description 12/26/2013 9:00 AM EST Follow-Up Radiation Oncology at [address] [address] Yolette Waldrop [address] [place] [address] Breast cancer, right (Primary Dx) [...] Dr. Forrester & he referred her to [facility] for stereotactic bx. 01/06/10 limited U/S R [...] Valentine, who does not rec MRI. Prior SHORTHAND REPORTER history: w/4 miscarriages. 1st child @ age [...] in situ Tumor Staging from Staging System [id number] You had stage 0 breast cancer with a good prognosis Size of Primary Malignancy 0.22 cm Grade Low grade Margin Negative--localized breast cancer ER positive [place] positive Family history Mother with history of breast cancer at age 53 Hormone therapy none Chemotherapy none Radiation therapy Total dose of radiation 60.4 Gy Surveillance: ----11/21/11 B mmg, done @ [facility], requested by Dr. 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 She had a normal mammogram at [facility] (we will request a copy). We reviewed [...] concerns. She would like to meet with capacitor repairer todiscuss weight loss --referral made. documented in this encounter Plan of Treatment Scheduled Referrals Name Type Priority Associated Diagnoses Orde r Schedule Referral to Nutrition Services Outpatient Referral Routine Breast Cancer, Right Ordered: 12/27/2013 documented as of this encounter Visit Diagnoses Diagnosis Breast cancer, right- Primary Malignant neoplasm of breast (female), unspecified site documented in this encounter Care Teams Trestle Mainternance Laborer Relationship Specialty Start Date End Date Spike Sierra MD [address] [place] [address] PCP - General 01/12/10 01/23/17 documented as of this encounter
--- OUTSIDE RECORDS SUMMARY | 2024-02-02 00:45 | XMS_ITS | Encounter Summary ---
[place] [address] Care Team Providers Care Workforce Management Consultant Name Role Phone Christine Fuentes Primary Care Provider [phone] Reason for Visit * Reason Onset Date Comments Follow-up 04/11/2017 Encounter Details Date Type Department Care Team (Late st Contact Info) Description 04/11/2017 Telephone [place] [address] Rhoda Brumfield APRN [facility] [place] [address] Follow-up Social History Tobacco Use Types Packs/Day Years Used Date Smoking Tobacco: Former Cigarettes Q uit: 10/19/2011 Smokeless Tobacco: Never Sex and Gender Information Value Date Recorded Sex Assigned at Not on file Gender Identity Not on file Sexual Orientation Not on file documented as of this encounter Miscellaneous Notes * Telephone Encounter - Rhoda Brumfield APRN - 04/11/2017 8:15 AM EST I called [...] on filedocumented in this encounter Care Teams Workforce Management Consultant Relationship Specialty Start Date End Date Christine Fuentes PA [address] [place] [address] PCP - General Family Medicine 01/24/17 10/08/19 documented as of this encounter
--- OUTSIDE RECORDS SUMMARY | 2024-02-02 00:45 | XMS_ITS | Encounter Summary ---
Author Organization [facility] [place] [address] Care Team Providers Care Lpn Or Medical Assistant Name Role Phone Spike Sierra MD Primary Care Provider [phone] Encounter Details Date Type Department Care Team (Late st Contact Info) Description 01/09/2014 2:00 PM EST Ancillary Appointment Hematology Oncology at [address] [phone] [facility] [place] [address] Social History Tobacco Use Types Packs/Day Years Used Date Smoking Tobacco: Former Cigarettes Q uit: 10/19/2011 Sex and Gender Information Value Date Recorded Sex Assigned at Not on file Gender Identity Not on file Sexual Orientation Not on file documented as of this encounter Progress Notes * Denzel Payne RD - 01/09/2014 2:21 PM EST [facility] Initial Dietitian Assessment Seen By: Elida Payne MS, RD, FARE COLLECTOR, LD Referred by: Yolette Waldrop APRN Reason [...] have eggs and toast Noon: can of DinnDinno lite soup and pickels Pm: lean cuisine [...] levels, if suboptimal in 3-6 mos. The [facility] series from [facility] – [...] on filedocumented in this encounter Care Teams Lpn Or Medical Assistant Relationship Specialty Start Date End Date Spike Sierra MD [address] [place] [address] PCP - General 01/12/10 01/23/17 documented as of this encounter
--- OUTSIDE RECORDS SUMMARY | 2024-02-02 00:46 | XMS_ITS | Encounter Summary ---
Author Organization [facility] [place] [address] Care Team Providers Care Boiler Helper Name Role Phone Spike Sierra MD Primary Care Provider [phone] Encounter Details Date Type Department Care Team (Late st Contact Info) Description 01/06/2010 [place] [address] Kwasi Valentine MD [facility] [place] [address] Social History Tobacco Use Types Packs/Day Years [...] 11:19 AM EST) Surgical Pathology Report ? [facility] ? Provider: ?? KWASI VALENTINE ?Pt. Name: ?? CECILIA MARX ? Acc #: ?[id number] ?Pt. ? Col Date: ?? 01/06/2010 ?/Sex: [...] 0.6 cm ?to 4.0 x 0.5 cm. ??[place]-yellow, hemorrhagic, ?fibrofatty. ? Sections/Proces sing: ?? Submitted in (A2-A3). ??(T3) ??aje/SNS ? ---Clinical Information--- ? Specimen Submitted: ? A - Right breast, stereo bx ? Clinical History: ? [facility] ? Provider: ?? KWASI VALENTINE ?Pt. Name: ?? CECILIA MARX ? Acc #: ?[id number] ?Pt. ? Col Date: ?? 01/06/2010 ?/Sex: ?1955,(54 years),Female ? Rec Date: ?? 01/06/2010 ?LOC: ?OP[facility] ? SURGICAL PATHOLOGY ? Calcs, coarse, low suspicion ? Clinical Diagnosis: ? Fat necrosis, FA change, CA unlikely CERNER MILLENNIUM 01/06/2010 11:1 9 AM EST Kwasi Valentine MD PATHOLOGY/CYTOLOGY O RDERABLES [facility] documented in this encounter Visit Diagnoses Not on filedocumented in this encounter Care Teams Boiler Helper Relationship Specialty Start Date End Date Spike Sierra MD [address] [place] [address] PCP - General 01/12/10 01/23/17 documented as of this encounter
--- OUTSIDE RECORDS SUMMARY | 2024-02-02 00:46 | XMS_ITS | Encounter Summary ---
[place] [address] Care Team Providers Care Cigarette Tester Name Role Phone Unavailable Primary Care Provider Unavailabl e Encounter Details Date Type Department Care Team (Late st Contact Info) Description 01/06/2010 10:00 AM EST Procedure visit [place] [address] Social History Tobacco Use Types Packs/Day Years [...]
--- OUTSIDE RECORDS SUMMARY | 2024-02-02 00:46 | XMS_ITS | Encounter Summary ---
[place] [address] Care Team Providers Care Planer Setter Name Role Phone Unavailable Primary Care Provider Unavailabl e Encounter Details Date Type Department Care Team (Late st Contact Info) Description 01/06/2010 9:10 AM EST Procedure visit [place] [address] Social History Tobacco Use Types Packs/Day Years [...]
--- OUTSIDE RECORDS SUMMARY | 2024-02-02 00:46 | XMS_ITS | Encounter Summary ---
Author Organization [facility] [place] [address] Care Team Providers Care Lining Repairer Name Role Phone Spike Sierra MD Primary Care Provider [phone] Encounter Details Date Type Department Care Team (Late st Contact Info) Description 04/06/2010 1:30 PM EST Follow-Up Radiation Oncology at [address] [phone] Ema Fair MD [facility] DR [place] [address] Social History Tobacco Use Types Packs/Day Years Used Date Smoking Tobacco: Never Assessed Sex and Gender Information Value Date Recorded Sex Assigned at Not on file Gender Identity Not on file Sexual Orientation Not on file documented as of this encounter Plan of Treatment Not on file documented as of this encounter Visit Diagnoses Not on filedocumented in this encounter Care Teams Lining Repairer Relationship Specialty Start Date End Date Spike Sierra MD [address] [place], [place] [address] PCP - General 01/12/10 01/23/17 documented as of this encounter
--- OUTSIDE RECORDS SUMMARY | 2024-02-02 00:46 | XMS_ITS | Encounter Summary ---
Author Organization [facility] [address] Care Team Providers Care Ammonia Still Operator Name Role Phone Unavailable Primary Care Provider Unavailabl e Encounter Details Date Type Department Care Team (Latest Contact Info) Description 12/04/2009 12:05 AM EDT - 12/04/2009 11:59 PM EDT Hospital Encounter Radiology Library at [facility] [place] [address] Spike Nicolas MD [facility] [place] [address] Discharge Disposition: Home Social History Tobacco Use [...] G FILM LIBR[facility]D [facility]LES [facility] [place] documented in this encounter Visit Diagnoses Not on filedocumented in this encounter
--- OUTSIDE RECORDS SUMMARY | 2024-02-02 00:46 | XMS_ITS | Encounter Summary ---
Author Organization [facility] [place] [address] Care Team Providers Care Superintendent Storage Area Name Role Phone Unknown Primary Care Provider Unavailabl e Encounter Details Date Type Department Care Team (Late st Contact Info) Description 01/06/2010 [place] [address] [place] Valentine MD [facility] [place] [address] Social History Tobacco Use Types Packs/Day Years [...] 11:19 AM EST) Surgical Pathology Report [id number] ? Location: [facility]W The signing pathologist has [...] cm ? to 4.0 x 0.5 cm. ??[place]-yellow, hemorrhagic, ? fibrofatty. Sections/Proces sing: ?? Submitted [...] in rendering the final pathologic diagnosis. [facility] 01/06/2010 11:1 9 AM EST [place] Valentine MD PATHOLOGY/CYTOLOGY O JUNG Performing Organization Address City/State/[facility] Co de Phone Number [facility] documented in this encounter Visit Diagnoses Not on filedocumented in this encounter Care Teams Superintendent Storage Area Relationship Specialty Start Date End Date Unknown None PCP - General 10/09/19 documented as of this encounter
--- OUTSIDE RECORDS SUMMARY | 2024-02-02 00:46 | XMS_ITS | Encounter Summary ---
[place] [address] Care Team Providers Care Social Service Manager Name Role Phone Spike Sierra MD Primary Care Provider [phone] Encounter Details Date Type Department Care Team (Late st Contact Info) Description 03/08/2010 9:30 AM EST Office Visit [place] [address] Rad NurseSt Christianson Social History Tobacco Use [...] on filedocumented in this encounter Care Teams Social Service Manager Relationship Specialty Start Date End Date Spike Sierra MD [address] [place] [address] PCP - General 01/12/10 01/23/17 documented as of this encounter
--- OUTSIDE RECORDS SUMMARY | 2024-02-02 00:46 | XMS_ITS | Encounter Summary ---
Author Organization [facility] [place] [address] Care Team Providers Care Yard Rigger Name Role Phone Unavailable Primary Care Provider Unavailabl e Encounter Details Date Type Department Care Team (Latest Contact Info) Description 12/03/2009 - 12/03/2009 11:59 PM EDT Hospital Encounter Radiology Library at [facility] [place] [address] Spike Nicolas MD [facility] [place] [address] Discharge Disposition: Home Social History Tobacco Use [...] Nicolas MD G FILM LIBRARY ORD ERABLES [facility] [place] documented in this encounter Visit Diagnoses Not on filedocumented in this encounter
--- OUTSIDE RECORDS SUMMARY | 2024-02-02 00:46 | XMS_ITS | Patient Health Record ---
Author Organization [facility] Address [address] [place] [address] Care Team Providers Care Kelly Machine Operator Name Role Phone Christine Fuentes [...] Notes Problem Herniation of rectum into vagina (169012479) Rectocele (N81.6) Active confirmed Problem Postmenopausal atrophic vaginitis (12131663) Postmenopausal atrophic vaginitis (N95.2) Active confirmed Plan Of Treatment No Information Insurance Providers Payer Name Payer Address Payer Phone Subscriber Number Group Number Insured Name Patient Relationship to Insured Coverage Start Date Coverage End Date [place] [address] [place] [phone] [id number] Cecilia Marx Self - patient is [...]
--- OUTSIDE RECORDS SUMMARY | 2024-02-02 00:46 | XMS_ITS | Encounter Summary ---
Author [place] [address] Care Team Providers Care Pharmacy Grad Intern Name Role Phone Spike Sierra MD Primary Care Provider [phone] Encounter Details Date Type Department Care Team (Late st Contact Info) Description 03/23/2010 8:00 AM EST Follow-[place] [address] Colin Cotto MD Social History Tobacco Use Types Packs/Day Years Used Date Smoking Tobacco: Never Assessed Sex and Gender Information Value Date Recorded Sex Assigned at Not on file Gender Identity Not on file Sexual Orientation Not on file documented as of this encounter Plan of Treatment Not on file documented as of this encounter Visit Diagnoses Not on filedocumented in this encounter Care Teams Pharmacy Grad Intern Relationship Specialty Start Date End Date Spike Sierra MD [address] [place] [address] PCP - General 01/12/10 01/23/17 documented as of this encounter
--- OUTSIDE RECORDS SUMMARY | 2024-02-02 00:46 | XMS_ITS | Encounter Summary ---
Author Organization [facility] [place] [address] Care Team Providers Care Trade Analyst Name Role Phone Unavailable Primary Care Provider Unavailabl e Encounter Details Date Type Department Care Team (Latest Contact Info) Description 12/04/2009 - 12/04/2009 12:04 AM EDT Hospital Encounter Radiology Library at [facility] [place] [address] Spike Nicolas MD [facility] [place] [address] Discharge Disposition: Home Social History Tobacco Use [...] Only Mammo (12/04/2009 12:00 AM EDT) Narrative INOCENCAI - 01/13/2017 9:15 AM EST This exam is for storage only and is auto-finalizing. Spike Nicolas MD G FILM LIBRARY ORD ERABLES [facility] [place] documented in this encounter Visit Diagnoses Not on filedocumented in this encounter
--- OUTSIDE RECORDS SUMMARY | 2024-02-02 00:46 | XMS_ITS | Encounter Summary ---
Author Organization [facility] [place] [address] Care Team Providers Care Emanations Analysis Technician Name Role Phone Spike Sierra MD Primary Care Provider [phone] Encounter Details Date Type Department Care Team (Late st Contact Info) Description 03/31/2010 11:00 AM EST Follow-Up [place] [address] Ema Fair MD [facility] [place] [address] Social History Tobacco Use Types Packs/Day Years Used Date Smoking Tobacco: Never Assessed Sex and Gender Information Value Date Recorded Sex Assigned at Not on file Gender Identity Not on file Sexual Orientation Not on file documented as of this encounter Plan of Treatment Not on file documented as of this encounter Visit Diagnoses Not on filedocumented in this encounter Care Teams Emanations Analysis Technician Relationship Specialty Start Date End Date Spike Sierra MD [address] [place] [address] PCP - General 01/12/10 01/23/17 documented as of this encounter
--- OUTSIDE RECORDS SUMMARY | 2024-02-02 00:46 | XMS_ITS | Encounter Summary ---
Author Organization [facility] [place] [address] Care Team Providers Care Associate Professor Of Music Name Role Phone Spike Sierra MD Primary Care Provider [phone] Encounter Details Date Type Department Care Team (Late st Contact Info) Description 03/08/2010 10:00 AM EST Office Visit Radiation Oncology at [address] [phone] Ema Fair MD [facility] [place] [address] Discharge Disposition: Home Social History Tobacco Use [...] on filedocumented in this encounter Care Teams Associate Professor Of Music Relationship Specialty Start Date End Date Spike Sierra MD [address] [place] [address] PCP - General 01/12/10 01/23/17 documented as of this encounter
--- OUTSIDE RECORDS SUMMARY | 2024-02-02 00:46 | XMS_ITS | Encounter Summary ---
[place] [address] Care Team Providers Care Professor Of Art History Name Role Phone Spike Sierra MD Primary Care Provider Encounter Details Date Type Department Care Team (Late st Contact Info) Description 03/09/2010 9:00 AM EST Initial consult Hematology Oncology at [address] [phone] Social History Tobacco Use Types Packs/Day Years Used Date Smoking Tobacco: Never Assessed Sex and Gender Information Value Date Recorded Sex Assigned at Not on file Gender Identity Not on file Sexual Orientation Not on file documented as of this encounter Plan of Treatment Not on file documented as of this encounter Visit Diagnoses Not on filedocumented in this encounter Care Teams Professor Of Art History Relationship Specialty Start Date End Date Spike Sierra MD [address] [place] [address] PCP - General 01/12/10 01/23/17 documented as of this encounter
--- OUTSIDE RECORDS SUMMARY | 2024-02-02 00:46 | XMS_ITS | Encounter Summary ---
[place] [address] Care Team Providers Care Stopper Maker Name Role Phone Spike Sierra MD Primary Care Provider Encounter Details Date Type Department Care Team (Late st Contact Info) Description 03/09/2010 8:30 AM EST Follow-Up [place] [address] Rad NurseSt Christianson Social History Tobacco Use [...] on filedocumented in this encounter Care Teams Stopper Maker Relationship Specialty Start Date End Date Spike Sierra MD [address] [place] [address] PCP - General 01/12/10 01/23/17 documented as of this encounter
--- OUTSIDE RECORDS SUMMARY | 2024-02-02 00:46 | XMS_ITS | Encounter Summary ---
Author Organization [facility] [place] [address] Care Team Providers Care Zinc Miner Blasting Name Role Phone Spike Sierra MD Primary Care Provider [phone] Encounter Details Date Type Department Care Team (Latest Contact Info) Description 03/09/2010 9:00 AM EST Procedure visit Radiation Oncology at [address] [phone] Ema Fair MD [facility] [place] [address] Discharge Disposition: Home Social History Tobacco Use [...] on filedocumented in this encounter Care Teams Zinc Miner Blasting Relationship Specialty Start Date End Date Spike Sierra MD [address] [place] [address] PCP - General 01/12/10 01/23/17 documented as of this encounter
[2024-02-02] MEDS: Barium Sulfate 2% W/V-Berry Smoothie 450 ML BTL PO ×2 (08:05→08:06)
[2024-02-02 08:43] LABS: Estimated GFR 61.75 (mL/min/1.73m2); TSH (W/Ref FT4) 6.69 uIU/mL (0.36-3.74)
[2024-02-02 08:59] LABS: FREE T4 0.78 ng/dL (0.76-1.46)
[2024-02-02] MEDS: Omnipaque 350 MG/ML 100 ML BTL IJ (10:13)
[2024-02-02] MEDS: Normal Saline - Diluent 50 ML VIAL IJ (10:15)
--- NOTE | 2024-02-02 10:25 | DI.CT_ITS ---
Exam(s) CT ABDOMEN PELVIS W EXAM: CT ABDOMEN PELVIS W CLINICAL HISTORY: ABD PAIN R10.9 CRAMPING, RADIATING TO BACK, MOSTLY PELVIC AREA. TECHNIQUE: Imaging Protocol: Axial computed tomography images with coronal and sagittal reformatted images were created and reviewed CONTRAST MATERIAL: Intravenous: Omnipaque-350 75cc Oral: Yes. Oral contrast was also administered for bowel opacification COMPARISON: CT CT ABDOMEN PELVIS WO from 06/25/2021 FINDINGS: VISUALIZED LUNG BASES: No nodules nor pleural effusions evident. There appear to have been bilateral mastectomies. ABDOMEN: There is no ascites. LIVER: There are no focal hepatic lesions evident. No dilated intrahepatic ducts. GALLBLADDER/BILIARY: No obvious gallbladder pathology. CBD is not dilated. PANCREAS: No evidence of pancreatic mass nor dilatation of the pancreatic duct. SPLEEN: Spleen is not enlarged. No obvious intrasplenic lesions. Splenic and portal veins are paten t. ADRENALS: There are no significant adrenal masses. KIDNEYS:No cysts evident. No solid renal masses. No calculi nor hydronephrosis.. ABDOMINAL AORTA: Abdominal aorta is not enlarged. LYMPH NODES:There is no retroperitoneal nor paraaortic adenopathy. ABDOMINAL WALL: No evidence of significant anterior abdominal wall nor inguinal hernia. GI: The administered oral contrast has reached the distal sigmoid. There are few slightly dilated pr oximal left-sided jejunal loops which measure up to 2.8 cm but without evidence of obvious stricture nor obvious fold thickening of these jejunal loops evident. There is no mesenteric streaking nor abn ormal fluid around these proximal jejunal loops and they do not appear to be edematous. Celiac and superior mesenteric arteries are patent as is the inferior mesenteric artery. PELVIS: GI: No evidence of appendicitis.There are diverticuli noted in the left side of the colon as well as within the sigmoid but there is no evidence of acute diverticulitis. LYMPH NODES: There is no intrapelvic nor inguinal adenopathy. REPRODUCTIVE: Uterus and adnexal regions appear unremarkable and there is no free fluid in the pelvis . URINARY BLADDER: Urinary bladder appears unremarkable. The previously present calculus in the urinar y bladder is seen on the 2021 study is no longer seen. OSSEOUS: No fractures and no significant osseous lesions. No disc space narrowing. No listhesis. IMPRESSION: 1. Sigmoid and left colon diverticulosis but no evidence of acute diverticulitis. Also no evidence o f appendicitis. 2. Uterus and adnexal regions appear age-appropriate. There are no abnormal adnexal masses nor free fluid in the abdomen and pelvis. 3. There is minimal dilatation of a few proximal left-sided jejunal loops just distal to the ligament of Treitz, these measuring up to 2.8 cm (2.5 cm is upper normal). These bowel loops do not appear e dematous and there is no adjacent mesenteric streaking nor surrounding fluid. There is no bowel obst ruction, and the administered oral contrast has reached the left side of the colon at time of image a cquisition. 4. No evidence of urinary tract calculi (as was evident on the left side on the CT scan of June 2021). There are no focal renal findings. Also no sense of radiopaque calculi in the urinary bladder. RADIATION DOSE DELIVERED: 478.12mGy.cm Total DLP DATA REPOSITORY: All CT scans at this facility are submitted to the National Radiology Data Registry (NRDR) Dose Index Registry (DIR) with the [employer] (ACR). RADIATION OPTIMIZATION: All CT scans at this facility use at least one of these dose optimization te chniques: automated exposure control; mA and/or kV adjustment per patient size (includes targeted exa ms where dose is matched to clinical indication); or iterative reconstruction.
== END 2024-02-02 00:58 ==
PROVIDERS: PCP Family Medicine; Visit Provider Family Medicine
DX: E03.9 Hypothyroidism, unspecified (principal); K57.30 Diverticulosis of large intestine without perforation or abscess without bleeding
CPT/HCPCS: 74177; 82565; 84439; 84443; J3490

== ENCOUNTER 2024-02-06 19:38 | Outpatient (REF) | payer MEDICARE, SELFPAY ==
--- OUTSIDE RECORDS SUMMARY | 2024-02-06 19:41 | XMS_ITS | Encounter Summary ---
[place] [address] Care Team Providers Care Divine Healer Name Role Phone Christine Fuentes Primary Care Provider [phone] Encounter Details Date Type Department Care Team (Late st Contact Info) Description 04/10/2018 9:30 AM [place] [address] January Davis Social History Tobacco Use Types [...] 04/10/2018 9:30 AM EST Cecilia Marx 1955 [id number] Prescription Received:Yes Insurance: Private Previous Fitting: First [...] Stock Ordered Delivery Date Type L8030 ABC [id number] 2 Y 2.19.19 [place] L8020 ABC [id number] 2 N 2.19.19 3.5.19 [place] L8000 ABC [id number] 1 Y 2.19.19 [place] L8000 ABC [id number] 1 Y 2.19.19 [place] L8000 ABC [id number]-[id number] [...] on filedocumented in this encounter Care Teams Divine Healer Relationship Specialty Start Date End Date Christine Fuentes PA [address] [place] [address] PCP - General Family Medicine 01/24/17 10/08/19 documented as of this encounter
--- OUTSIDE RECORDS SUMMARY | 2024-02-06 19:41 | XMS_ITS | Clinical Summary ---
Author Organization [facility] Address [facility] [place] [address] Care Team Providers Care Fire Dispatcher Name Role Phone Unknown Primary Care Provider [...] Discontinued 08/28/2018 Medical Devices Implanted Type Area Plate Glass Grinder Device Identifier Shelf Expiration Date Model / Serial / Lot Breast Clip-02/02/20 17 Implanted: by Babs Duvall MD (Quantity not on file) Breast Clip Left: Breast HOLOGIC - [facility] SECURMARK FOR EVIVA TITANIUM BIOPSY SITE MARKER / / [id number] Description:cylinder Breast Clip-01/31/20 18 Implanted:12/2017 by Babs Duvall MD (Quantity not on file) Breast Clip Breast Cylinder 09/14/2018 SMARK-EVIVA- 13 / [id number] Procedures Procedure Name Priority Date/Time Associated [...] Hemoglobin A1c 5.4 4.3 - 5.6 % [facility] Comment: Reference Range: 4.3 - [...] Mellitus, Diabetes Care 2013; 36: Suppl. 1, M47-87 Estimated Average Glucose 109 mg/dL [facility] Comment: eAG equivalents for HbA1c [...] into estimated average glucose values. ??Diabetes Care 2008:31(8):3194-4854. Blood specimen (specimen) 08/28/2018 10:30 AM EDT 08/28/2018 10:39 AM EDT Narrative Resulting Agency Comment Spec In Lab Nella Acevedo MD CHEMISTRY ORDERABLES [facility] [place] [address] * Lipid Panel (08/28/2018 10:30 AM EDT) Cholesterol, Total 220 mg/dL [facility] Comment: Lower Risk: <200 mg/dL Average Risk: 200-239 mg/dL Higher Risk: >bk=371 mg/dL Triglyceride 172 mg/dL [facility] Comment: Average Risk/Lower Risk: <150 mg/dL Borderline High Risk: 150-199 mg/dL High Risk: 200-499 mg/dL Very High Risk: >xx=848 mg/dL HDL Cholesterol 62 mg/dL [facility] Comment: Males: ?? Higher Risk: <40 mg/dL Females: ?? HIgher Risk: <50 mg/dL LDL Cholesterol 124 mg/dL [facility] Comment: Lowest Risk: <100 mg/dL Lower Risk: 100-129 mg/dL Borderline High Risk: 130-159 mg/dL High Risk: 160-189 mg/dL Very High Risk: >ag=062 mg/dL Cholesterol/HDL Ratio 3.[address] [facility] Lipid Interpretation See Note [facility] Comment: Lipid management should be guided by a patient? s ASCVD risk, goals and preferences. ACC/AHA Guidelines recommend high intensity statin if clinical ASCVD or LDL greater than or equal to 190 mg/dL. http://Climeworksurl.com/PUD-LOP-Wqmnyjxnc Adults aged 40-75 with LDL 70-189 mg/dL should have their 10 year ASCVD risk estimated with the ACC/AHA ASCVD risk precision instrument maker and repairer http://tools.acc.org/UGLRL-Zcbe-Ymcauvmzk/ Statin should be discussed if risk greater [...] In Lab Nella Acevedo MD CHEMISTRY ORDERABLES [facility] [place] [address] * Mammo Screening Cad and Immanuel Bilateral [...] capacity to make decision: Yes Care Teams Fire Dispatcher Relationship Specialty Start Date End Date Unknown None PCP - General 10/09/19
--- OUTSIDE RECORDS SUMMARY | 2024-02-06 19:41 | XMS_ITS | Encounter Summary ---
[place] [address] Care Team Providers Care Battery Plate Assembler Name Role Phone Christine Fuentes Primary Care Provider +1- [phone] Encounter Details Date Type Department Care Team (Late st Contact Info) Description 04/24/2018 3:30 [place] [address] January Davis Social History Tobacco Use Types [...] f/up today. 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 ordered for her on 04/10/18 Patient Cecilia Marx 1.24.57 DX Right br ca C50.911 [facility] L8020 Products 929-08 Quantity 1 Ordering Marla Brice Self Pay supervisor properties date 04.24.18 Delivered today: 110 bra beige 110 bra black 929-08 X2 See 04/10/18 note for fitting details Paid with card on 04.10.18 $180.52 documented in this encounter Plan of Treatment Not on file documented as of this encounter Visit Diagnoses Not on filedocumented in this encounter Care Teams Battery Plate Assembler Relationship Specialty Start Date End Date Christine Fuentes PA [address] [place] [address] PCP - General Family Medicine 01/24/17 10/08/19 documented as of this encounter
--- OUTSIDE RECORDS SUMMARY | 2024-02-06 19:41 | XMS_ITS | Encounter Summary ---
Author Organization [facility] Address [address] [place] [address] Care Team Providers Care Design Printer Balloon Name Role Phone Unavailable Primary Care Provider Unavailabl e Encounter Details Date Type Department Care Team (Late st Contact Info) Description 03/27/2006 Results Only [facility] - Maple conversion [address] [place] [address] Kayli Engel FNP [address] [place], [place] [id number] Social History Tobacco Use Types Packs/Day Years [...] 51, 52, 56, 58, 59, and 68. [facility] Report Status Final [id number] [facility] 03/27/2006 8:18 EST 03/31/2006 8:18 EST us Kayli Engel ERECTOR OPERATOR MICROBIOLOGY - GENERAL ORDERABLE S Final Result [facility] [address] [place] [address] * CYTOPATHOLOGY (03/27/2006 0:00 EST) Pathology Report: CYTOPATHOLOGY REPORT Reports generated via electronic interface contain original data; however they are lacking the format of the original report. Caution should be taken when reading/interpreti ng unformatted reports. Name: ? JAMEL STEVE L ? Accession #: ? [id number] : ? 1955 (Age: 51) ??F ?Collect Date: ? 03/27/2006 Location: ? [facility] ? Receive Date: ? 03/29/2006 Provider: ?KAYLI ENGEL ERECTOR OPERATOR Copy to: ? Specimen/Source: ?ThinPrep Pap Test, Cervix/Endocervix, processed on [employer] ThinPrep Imaging System, with manual evaluation Last [...] Final Resul t [facility] [address] [place] [address] documented in this encounter Visit Diagnoses Not on filedocumented in this encounter
--- OUTSIDE RECORDS SUMMARY | 2024-02-06 19:41 | XMS_ITS | Encounter Summary ---
[place] [address] Care Team Providers Care Branch Controller Name Role Phone Christine Fuentes Primary Care Provider +1- [phone] Encounter Details Date Type Department Care Team (Late st Contact Info) Description 04/10/2018 Orders [place] [address] Whitney Lewis RN Malignant neoplasm of right [...] breast documented in this encounter Care Teams Branch Controller Relationship Specialty Start Date End Date Christine Fuentes PA [address] [place] [address] PCP - General Family Medicine 01/24/17 10/08/19 documented as of this encounter
--- OUTSIDE RECORDS SUMMARY | 2024-02-06 19:41 | XMS_ITS | Encounter Summary ---
Author Organization [facility] Address [address] [place] [address] Care Team Providers Care Industrial Waste Inspector Name Role Phone Unknown, Provider Primary Care Provider Unava ilable Encounter Details Date Type Department Care Team (Late st Contact Info) Description 12/11/2013 Results Only [facility] Laboratory Services - [facility] [address] [place], [place] [id number] Kayli Engel FNP [address] [place], [place] [address] Social History Tobacco Use Types Packs/Day Years [...] ? STEVE MARX ? Accession #: ? [id number] : ? 1955 (Age: 58) ??F ?Collect Date: ? 12/11/2013 Location: ? [facility] ? Receive Date: ? 12/13/2013 Provider: ?KAYLI ENGEL WET CHEMISTRY ANALYST Copy to: ? Specimen/Source: ?Pap Test, Cervix/Endocervix, [...] [facility] 12/11/2013 12/13/2013 us Kayli Engel WET CHEMISTRY ANALYST PATHOLOGY ORDERABLES Final Resul t [facility] [address] [place] [address] documented in this encounter Visit Diagnoses Not on filedocumented in this encounter Care Teams Industrial Waste Inspector Relationship Specialty Start Date End Date Unknown, Provider, PCP - General 02/02/10 10/22/16 documented as of this encounter
--- OUTSIDE RECORDS SUMMARY | 2024-02-06 19:41 | XMS_ITS | Encounter Summary ---
Author Organization [facility] Address [address] [place] [address] Care Team Providers Care Loan Underwriter Name Role Phone Christine Fuentes PA-C Primary Care Provider + Encounter Details Date Type Department Care Team (Late st Contact Info) Description 04/10/2017 Results Only [facility] [phone] Luis Ivan PA-C [address] [place] [address] Social History Tobacco Use Types [...] ? STEVE MARX ? Accession #: ? [id number] ? : ? 1955 (Age: 62) ??F [...] (ASCP) 04/11/2017 5:10 PM End of Report [facility] 04/10/2017 16:0 2 EST 04/11/2017 16:02 EST us Luis COTO-Jaden PATHOLOGY ORDERABLES Sapna l Result [facility] [address] [place] [address] documented in this encounter Visit Diagnoses Not on filedocumented in this encounter Care Teams Loan Underwriter Relationship Specialty Start Date End Date Christine Fuentes PA-C [address] [place] [phone] PCP - General 10/23/16 documented as of this encounter
--- OUTSIDE RECORDS SUMMARY | 2024-02-06 19:41 | XMS_ITS | Encounter Summary ---
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
--- OUTSIDE RECORDS SUMMARY | 2024-02-06 19:41 | XMS_ITS | Encounter Summary ---
Author Organization [facility] Address [address] [place] [address] Care Team Providers Care Sheep Shearer Name Role Phone Ernie Marcos PA-C Primary Care Provider + Encounter Details Date Type Department Care Team ([facility] st Contact Info) Description 01/06/2017 Results Only [facility] [phone] Ernie Marcos PA-C [address] [place] [address] Social History Tobacco Use Types Packs/Day Years [...] ? STEVE MARX ? Accession #: ? [id number] ? : ? 1955 (Age: 61) ??F [...] and electronically signed by: ? Whitney You [facility](ASCP) ? Report ??Date: 01/20/2017 13:37 HPV with Pap Test ? Date Ordered: ? 01/20/2017 ? Status: ?? Signed Out ?Date Complete: ? 01/23/2017 ? By: ??System Interface ? Date Reported: ? 01/23/2017 ? Interpretation RESULT: Negative for HPV. No E6 or E7 mRNA is detected from HPV types 16,18,31,33,35, 39,45,51,52,56,58, 59,66, and 68 by flame annealing machine operator mediated amplification. Comments Document reviewed and electronically signed by: ? System Interface ? Report date: 01/23/2017 By the signature above, the attending physician certifies that he/she has personally conducted a gross and/or microscopic examination of the described specimens and rendered or confirmed the above diagnosis. End of Report [facility] 01/06/2017 01/10/2017 us Ernie Marcos PA-C PATHOLOGY ORDERABLES Fin al Result [facility] [address] [place] [address] documented in this encounter Visit Diagnoses Not on filedocumented in this encounter Care Teams Sheep Shearer Relationship Specialty Start Date End Date Ernie Marcos PA-C [address] [place] [phone] PCP - General 10/23/16 documented as of this encounter
--- OUTSIDE RECORDS SUMMARY | 2024-02-06 19:41 | XMS_ITS | Encounter Summary ---
Author Organization [facility] [place] [address] Care Team Providers Care Lean Sensei Name Role Phone Christine Fuentes Primary Care Provider +1- [phone] Encounter Details Date Type Department Care Team (Late st Contact Info) Description 08/29/2018 Orders [place] [address] Bautista Mcgrath MD [facility] [place] [address] Fatty liver Social History Tobacco Use Types [...] disease documented in this encounter Care Teams Lean Sensei Relationship Specialty Start Date End Date Christine Fuentes PA [address] [place] [address] PCP - General Family Medicine 01/24/17 10/08/19 documented as of this encounter
--- OUTSIDE RECORDS SUMMARY | 2024-02-06 19:41 | XMS_ITS | Encounter Summary ---
Author Organization [facility] Address [address] [place] [address] Care Team Providers Care Parachute Accessories Attacher Name Role Phone Unavailable Primary Care Provider Unavailabl e Encounter Details Date Type Department Care Team (Late st Contact Info) Description 10/10/2006 Results Only [facility] - Maple conversion [address] [place] [address] Kayli Engel FNP [address] [place], [place] [phone] Social History Tobacco Use Types Packs/Day Years [...] ? STEVE MARX ? Accession #: ? [id number] : ? 1955 (Age: 51) ??F ?Collect Date: ? 10/10/2006 Location: ? [facility] ? Receive Date: ? 10/12/2006 Provider: ?KAYLI ENGEL CONSUMER MARKETING ANALYST Copy to: ? Specimen/Source: ?ThinPrep Pap Test, Cervix/Endocervix, processed on [employer] ThinPrep Imaging System, with manual evaluation Last [...] End of Report [facility] 10/10/2006 10/12/2006 us Kayli AVERYP PATHOLOGY ORDERABLES Final Resul t [facility] [address] [place] [address] documented in this encounter Visit Diagnoses Not on filedocumented in this encounter
--- OUTSIDE RECORDS SUMMARY | 2024-02-06 19:41 | XMS_ITS | Encounter Summary ---
Author Organization [facility] Address [address] [place] [address] Care Team Providers Care Associate Professor Of Library Science Name Role Phone Unknown, Provider Primary Care Provider Unava ilable Encounter Details Date Type Department Care Team ([facility] st Contact Info) Description 09/08/2005 Results Only [facility] - Maple conversion [address] [place] [address] Ernie Fuentes PA-C [address] [place] [address] Social History Tobacco Use Types Packs/Day Years [...] ? STEVE MARX ? Accession #: ? [id number] : ? 1955 (Age: 50) ??F ?Collect Date: ? 09/08/2005 Location: ? [facility] ? Receive Date: ? 09/13/2005 Provider: ?ERNIE COTO Copy to: ? Specimen/Source: ?ThinPrep Pap Test, Cervix/Endocervix, processed on [employer] ThinPrep Imaging System, with manual evaluation Last [...] intraepithelial lesion (LSIL). EDUCATIONAL NOTES/RECOMMENDATI ONS ? [facility] recommends following the 2001 Consensus Guidelines for the Management of Women with Cervical Cytological Abnormalities (UGO,2002;287:212 0-9). Management algorithms have been distributed by [facility] and are available online at www.ASCCP.org. ? Document reviewed and electronically signed by: ? PHILOMENA PEARL MD ? Report Date: ??09/15/2005 14:56 End of Report [facility] 09/08/2005 09/13/2005 us Ernie Fuentes PA-C PATHOLOGY ORDERABLES Fin al Result [facility] [address] [place] [address] documented in this encounter Visit Diagnoses Not on filedocumented in this encounter Care Teams Associate Professor Of Library Science Relationship Specialty Start Date End Date Unknown, Provider, PCP - General 02/02/10 10/22/16 documented as of this encounter
--- OUTSIDE RECORDS SUMMARY | 2024-02-06 19:41 | XMS_ITS | Encounter Summary ---
[place] [address] Care Team Providers Care Forest Engineer Name Role Phone Christine Fuentes Primary Care Provider +1- [phone] Encounter Details Date Type Department Care Team (Late st Contact Info) Description 05/10/2018 Telephone [place] [phone] Christina Fay, RN Social History Tobacco Use [...] 1955 CALLER: Pt to the General Surgery [facility] Learning Needs Assessment Reviewed: Yes SUBJECTIVE - I had a double mastectomy and I need a root canal is that okay? PERTINENT PAST MEDICAL HISTORY: PT is s/p Patient Name: Cecilia Marx : [id number] MR#: [id number] ?? Case Date: 03/15/2018 ?? Surgeon: Surgeon(s) and Role: * Marla Brice MD - Primary * Sera Weller MD - Resident-Marketing Technology Coordinator * Vu Angela MD - Resident-Surgeon Tonny [...] on filedocumented in this encounter Care Teams Forest Engineer Relationship Specialty Start Date End Date Christine Fuentes PA [address] [place] [address] PCP - General Family Medicine 01/24/17 10/08/19 documented as of this encounter
--- OUTSIDE RECORDS SUMMARY | 2024-02-06 19:41 | XMS_ITS | Encounter Summary ---
Author Organization [facility] Address [address] [place] [address] Care Team Providers Care Park Services Specialist Name Role Phone Unavailable Primary Care Provider Unavailabl e Encounter Details Date Type Department Care Team (Late st Contact Info) Description 09/29/2005 Results Only [facility] - Maple conversion [address] [place] [address] Yasemin Selby MD [address] [place] [address] [place] [address] Social History Tobacco Use Types Packs/Day Years [...] ? STEVE MARX ? Accession #: ? [id number] ? : ? 1955 (Age: 50) ??F ? Collect Date: ? 09/29/2005 ? Location: ? [facility] ? Receive Date: ? 09/29/2005 ? Provider: YASEMIN SLEBY MD Copy to: ERNIE COTO ? Final [...] (B) are also examined. Previous Pap smear ([id number]) was reviewed by Dr. Sally Pablo, and the presence of low grade squamous intraepithelial lesion was confirmed. However, the atypical cells seen on the Pap smear are not seen in the current cervical biopsy or endocervical curettage specimen. This case was reviewed by Dr. Sally Pablo, and was also presented at the intradepartmental consultation conference. ??(Dr. Zambrano)/[facility] Document reviewed and electronically signed [...] Final Resu lt [facility] [address] [place] [address] documented in this encounter Visit Diagnoses Not on filedocumented in this encounter
--- OUTSIDE RECORDS SUMMARY | 2024-02-06 19:41 | XMS_ITS | Encounter Summary ---
[place] [address] Care Team Providers Care Grease Maker Head Name Role Phone Christine Fuentes Primary Care Provider +1- [phone] Encounter Details Date Type Department Care Team (Late st Contact Info) Description 04/19/2019 9:30 [place] [address] January Davis Social History Tobacco Use Types [...] - 04/19/2019 9:30 AM EST Cecilia Marx [id number] 1955 Referring Physician: Shazia Boyd APN Previous Fitting: [facility] [place] [place] 04/10/18 Insurance: of [place] Prescription: Yes Diagnoses:right breast cancer Date of [...] to her type of surgery. Delivered today:04.19.2019 [facility] Manufacture Model L/R Quantity L8030 ABC 50660-70 L 1 L8030 ABC 39607-61 R 1 Bra - Our goal is to provide adequate measurement to reach the best comfort possible for different life styles, and we determine that with our client that the bra described below are meeting her needs according to her type of surgery and life style. Delivered today: [facility] Manufacture Model L/R Quantity L8000 ABC 960-XL-BH 1 L8000 ABC 960-XL-BK 1 L8000 ABC 525-42B-WH 1 L8000 ABC 525-42B-BK 1 L8000 ABC 525-42B-BE 1 To Order:N/A Follow up: PRN Payment Info: paid $879.19 w/ CC to [employer], This will be submitted toward deductible. Retail: $100.00 for the sonia's -paid with cc to [employer]. (This was paid all in one transaction of $979.19) Delivery date: 04.19.2019 Cecilia agrees to this plan. documented in this encounter Plan of Treatment Not on file documented as of this encounter Visit Diagnoses Not on filedocumented in this encounter Care Teams Grease Maker Head Relationship Specialty Start Date End Date Christine Fuentes PA [address] [place] [address] PCP - General Family Medicine 01/24/17 10/08/19 documented as of this encounter
--- OUTSIDE RECORDS SUMMARY | 2024-02-06 19:41 | XMS_ITS | Encounter Summary ---
[place] [address] Care Team Providers Care Ballroom Dance Instructor Name Role Phone Christine Fuentes Primary Care Provider +1- [phone] Encounter Details Date Type Department Care Team (Late st Contact Info) Description 08/29/2018 Telephone [place] [phone] Kiersten Hodges RN Social History Tobacco Use [...] 09/03/2018 10:23 AM EDT Call placed to [facility] has lab results not scanned in. Per Danyell, patient has not come in for lab. Call placed to Diane. FLORES reminding she's due for labs. Asked her to call back or send [email or web address] message * Telephone Encounter - Kiersten Dean RN - 08/29/2018 3:20 PM EDT Bautista Mcgrath MD sent to Kiersten Dean, DAVID ?? Debbie, I am not sure if you are the right person to send this to. I saw this patient in clinic this week but want additional labs. She lives close to [facility] and would be reasonable to have them done there. I ordered the labs as external and called to patient to let her know. Do we fax the orders to [facility]? Isthis something that I should send to the secretaries? Thanks, James Lab orders faxed to [facility] at [phone]. Reminder set to f/u on results. documented in this encounter Plan of Treatment Not on file documented as of this encounter Visit Diagnoses Not on filedocumented in this encounter Care Teams Ballroom Dance Instructor Relationship Specialty Start Date End Date Christine Fuentes PA [address] [place] [address] PCP - General Family Medicine 01/24/17 10/08/19 documented as of this encounter
--- OUTSIDE RECORDS SUMMARY | 2024-02-06 19:41 | XMS_ITS | Encounter Summary ---
Author Organization [facility] Address [address] [place] [address] Care Team Providers Care Cold Strip Feeder Name Role Phone Christine Fuentes PA-C Primary Care Provider + Encounter Details Date Type Department Care Team (Late st Contact Info) Description 01/22/2021 Lab Requisition [facility] Pathology & Laboratory Medicine - [address] [address] Katie Leyva MD [address] [place] [address] [address] [place], [place] [id number] Encounter for other general examination Social History [...] Risk types, PCR Negative Negative 02/02/2021 11:04 [facility] Comment:No E6 or E7 mRNA is detected from HPV types 16,18,31,33,35,39,45,51,52,56,58,59,66, and 68 by technicians and trades workers mediated amplification. Papanicolaou smear specimen (specimen) CERVIX UTERI STRUCTURE / Unknown 01/21/2021 9:45 EST 01/28/2021 12:05 EST us Katie Leyva MD MICROBIOLOGY - GENERAL ORDERAB LES Final Result [facility] [address] [place] [address] * PAP TEST (01/21/2021 9:45 EST) Specimens A. Cervix and/or Endocervix , ThinPrep Imaging System with Manual Evaluation 02/02/2021 11:04 [facility] Specimen Adequacy Satisfactory for Evaluation - transformation zone component present 02/02/2021 11:04 [facility] General Categorization Negative for intraepithelial lesion or malignancy 02/02/2021 11:04 [facility] Attestation . 02/02/2021 11:04 [facility] at 1104 Clinical History See below 02/03/20 11:04 [facility] HPV The result for the Human Papillomavirus (HPV) Detection-High Risk Types is Negative. No E6 or E7 mRNA is detected from HPV types 16,18,31,33,35,39 ,45,51,52,56,58,5 9,66, and 68 by technicians and trades workers mediated amplification.Harriett ting was performed on specimen [id number] and was resulted on 02/02/2021 0921 EST by IVORY, LAB INSTRUMENT RESULTS IN 02/02/2021 11:04 [facility] Performing Lab [facility] 02/02/2021 11:04 EST [facility] Scanned Images 02/02/2021 11:04 EST [facility] Papanicolaou smear specimen (specimen) CERVIX UTERI STRUCTURE / Unknown 01/21/2021 9:45 EST 01/22/2021 13:54 EST us Katie Leyva MD PATHOLOGY ORDERABLES Final Res ult [facility] [address] [place] [address] documented in this encounter Visit Diagnoses Diagnosis Encounter for other general examination documented in this encounter Care Teams Cold Strip Feeder Relationship Specialty Start Date End Date Christine Fuentes PA-C [address] [place] [phone] PCP - General 10/23/16 documented as of this encounter
--- OUTSIDE RECORDS SUMMARY | 2024-02-06 19:41 | XMS_ITS | Encounter Summary ---
Author Organization [facility] Address [address] [place] [address] Care Team Providers Care Sales Development Consultant Name Role Phone Unavailable Primary Care Provider Unavailabl e Encounter Details Date Type Department Care Team (Late st Contact Info) Description 10/29/2007 Before PRISM Converted Visit (Maple) [facility] - Maple conversion [address] [place] [address] Kayli Engel FNP [address] [place], [place] [id number] Social History Tobacco Use Types Packs/Day Years [...] ? STEVE MARX ? Accession #: ? [id number] ? : ? 1955 (Age: 52) ??F [...] [facility] 10/29/2007 10/30/2007 us Kayli Engel SENIOR FIRE PROTECTION ENGINEER PATHOLOGY ORDERABLES Final Resul t [facility] [address] [place] [address] documented in this encounter Visit Diagnoses Not on filedocumented in this encounter
--- OUTSIDE RECORDS SUMMARY | 2024-02-06 19:41 | XMS_ITS | Encounter Summary ---
Author Organization [facility] Address [address] [place] [address] Care Team Providers Care Knowledge Management Advisor Name Role Phone Christine Fuentes PA-C Primary Care Provider + Encounter Details Date Type Department Care Team (Latest Contact Info) Description 04/10/2017 9:46 EST - 04/10/2017 23:59 EST Hospital Encounter [address] [address] Unknown, Provider, MD Discharge Disposition: Home or [...] Code Departure Means Destination Home or Self Retirement documented in this encounter Plan of Treatment Not on file documented as of this encounter Visit Diagnoses Not on filedocumented in this encounter Care Teams Knowledge Management Advisor Relationship Specialty Start Date End Date Christine Fuentes PA-C [address] [place] [phone] PCP - General 10/23/16 documented as of this encounter
--- OUTSIDE RECORDS SUMMARY | 2024-02-06 19:41 | XMS_ITS | Referral Summary ---
Author Organization [facility] Address [address] [place] [address] Care Team Providers Care Director Money Name Role Phone Christine Fuentes PA-C Primary [...] file [place] [id number] Care Teams Director Money Relationship Specialty Start Date End Date Christine Fuentes PA-C [address] [place] [phone] PCP - General 10/23/16
--- OUTSIDE RECORDS SUMMARY | 2024-02-06 19:41 | XMS_ITS | Encounter Summary ---
[place] [address] Care Team Providers Care Assistant Merchandise Manager Name Role Phone Unknown Primary Care Provider Unavailabl e Reason for Referral * Consultation (Routine) - Closed Specialty Diagnoses / Procedures Referred By Contac t Referred To Contact Neurology Diagnoses Tremor Treva De Jesus MD [address] [place] [address] [facility] [address] [place] [phone] Referral ID Status Reason Start Date Expiration Date V isits Requested Visits Authorized [id number] Closed Consult, Test & Treat PCP Updated and/or Approved 03/16/2023 03/15/2024 6 6 Encounter Details Date Type Department Care Team (Late st Contact Info) Description 03/16/2023 Transcribe Orders eDH Incoming Referrals [phone] Treva De Jesus MD [address] [place] [address] Tremor Social History Tobacco Use [...] movements documented in this encounter Care Teams Assistant Merchandise Manager Relationship Specialty Start Date End Date Unknown None PCP - General 10/09/19 documented as of this encounter
--- OUTSIDE RECORDS SUMMARY | 2024-02-06 19:41 | XMS_ITS | Encounter Summary ---
Author Organization [facility] Address [facility] [place] [address] Care Team Providers Care Toe Stapler Name Role Phone Christine Fuentes Primary Care Provider +1- [phone] Reason for Referral * Physical Therapy (Routine) - Specialty Diagnoses / Procedures Referred By Cherie abdul Referred To Contact Physical Therapy Diagnoses Decreased range of motion of shoulder, unspecified laterality Marla Brice MD [facility] [place] [address] Referral ID Status Reason Start Date Expiration Date V isits Requested Visits Authorized [id number] Evaluate and Treat 04/09/2018 10/06/2018 1 1 Encounter Details Date Type Department Care Team (Late st Contact Info) Description 04/09/2018 Orders [place] [address] Marla Brice MD [facility] [place] [address] Decreased range of motion of shoulder, unspecified [...] Primary documented in this encounter Care Teams Toe Stapler Relationship Specialty Start Date End Date Christine Fuentes PA [address] [place] [address] PCP - General Family Medicine 01/24/17 10/08/19 documented as of this encounter
--- OUTSIDE RECORDS SUMMARY | 2024-02-06 19:41 | XMS_ITS | Encounter Summary ---
[place] [address] Care Team Providers Care Lead Front Desk Agent Name Role Phone Christine Fuentes Primary Care Provider +1- [phone] Encounter Details Date Type Department Care Team (Late st Contact Info) Description 08/09/2018 11:00 AM [place] [address] January Davis Social History Tobacco Use Types [...] 110-L-C/D- white We ordered her 3 more, [place]street,Silveira, and Star flower. She paid for all 4 of them today with CC $145.56 F/up: 08/28/18 to pick pack worker the 3 we ordered today. documented in this encounter Plan of Treatment Not on file documented as of this encounter Visit Diagnoses Not on filedocumented in this encounter Care Teams Lead Front Desk Agent Relationship Specialty Start Date End Date Christine Fuentes PA [address] [place] [address] PCP - General Family Medicine 01/24/17 10/08/19 documented as of this encounter
--- OUTSIDE RECORDS SUMMARY | 2024-02-06 19:41 | XMS_ITS | Encounter Summary ---
Author Organization [facility] [place] [address] Care Team Providers Care Strap Folding Machine Operator Name Role Phone Christine Fuentes Primary Care Provider +1- [phone] Encounter Details Date Type Department Care Team (Late st Contact Info) Description 04/29/2018 Telephone [place] [address] Delon Tyson MD [facility] [place] [address] Social History Tobacco Use Types Packs/Day Years [...] concerns. Robert Tyson Vascular Surgery, PGY3 Pager #[phone] documented in this encounter Plan of Treatment Not on file documented as of this encounter Visit Diagnoses Not on filedocumented in this encounter Care Teams Strap Folding Machine Operator Relationship Specialty Start Date End Date Christine Fuentes PA [address] [place] [address] PCP - General Family Medicine 01/24/17 10/08/19 documented as of this encounter
--- OUTSIDE RECORDS SUMMARY | 2024-02-06 19:41 | XMS_ITS | Encounter Summary ---
Author Organization [facility] [place] [address] Care Team Providers Care Roll On Worker Name Role Phone Christine Fuentes Primary Care Provider +1- [phone] Encounter Details Date Type Department Care Team (Late st Contact Info) Description 04/30/2018 Telephone [place] [phone] Chantelle Foote RN Social History Tobacco Use [...] General Surgery Nurses line. Cecilia lives in [place], [place]. She [...] go locally or she can come to [facility]. She notes some times wearing the bra can put pressure on the healing areas increasing irritation. I called Cecilia back and let her know all of this information, she agrees with the plan. I will share this note with Cecilia's primary care provider also. Delon Tyson MD routed this conversation to Marla Brice MD ?[facility] [place] [facility]on Tyson MD ?? 04/29/18 11:55 AM [...] ?? Robert Tyson Vascular Surgery, PGY3 Pager #[phone] documented in this encounter Plan of Treatment Not on file documented as of this encounter Visit Diagnoses Not on filedocumented in this encounter Care Teams Roll On Worker Relationship Specialty Start Date End Date Christine Fuentes PA [address] [place] [address] PCP - General Family Medicine 01/24/17 10/08/19 documented as of this encounter
--- OUTSIDE RECORDS SUMMARY | 2024-02-06 19:41 | XMS_ITS | Encounter Summary ---
[place] [address] Care Team Providers Care Fixed Wing Aircraft Crew Chief Name Role Phone Christine Fuentes Primary Care Provider +1- [phone] Encounter Details Date Type Department Care Team (Late st Contact Info) Description 01/28/2019 Telephone [place] [phone] Serena Tran Social History Tobacco Use Types [...] on filedocumented in this encounter Care Teams Fixed Wing Aircraft Crew Chief Relationship Specialty Start Date End Date Christine Fuentes PA [address] [place] [address] PCP - General Family Medicine 01/24/17 10/08/19 documented as of this encounter
--- OUTSIDE RECORDS SUMMARY | 2024-02-06 19:41 | XMS_ITS | Encounter Summary ---
Author Organization [facility] [place] [address] Care Team Providers Care Pharmacy Aide Name Role Phone Unknown Primary Care Provider Unavailabl e Encounter Details Date Type Department Care Team (Late st Contact Info) Description 11/26/2019 11:10 AM EDT Office [place] [address] Shazia Boyd, [employer] DEVELOPER [facility] [place] [address] History of breast cancer Social History Tobacco [...] grade 0 of 4 LNs positive cells,, ER+/[place]+ pTNM: ---(m)Tis N0 (AJCC) Left breast, mastectomy: [...] breast documented in this encounter Care Teams Pharmacy Aide Relationship Specialty Start Date End Date Unknown None PCP - General 10/09/19 documented as of this encounter
--- OUTSIDE RECORDS SUMMARY | 2024-02-06 19:41 | XMS_ITS | Encounter Summary ---
Author Organization [facility] Address [address] [place] [address] Care Team Providers Care Senior Office Support Assistant Sosa Name Role Phone Christine Fuentes PA-C Primary Care Provider + Encounter Details Date Type Department Care Team (Late st Contact Info) Description 09/01/2022 Lab Requisition [facility] Pathology & Laboratory Medicine - [address] [address] Treva De Jesus MD [address] [place] [phone] Encounter for other general examination Social History [...] explore management options, if applicable. 09/02/2022 8:16 [facility] Final Diagnosis A. SKIN OF UMBILICUS, LEFT SIDE, SHAVE BIOPSY: - Seborrheic keratosis. B. SKIN OF THIGH, LEFT, SHAVE BIOPSY: - Squamous cell carcinoma, well-differentiat ed, superficially invasive, encompassed within the examined sections. 09/02/2022 8:16 [facility] Attestation By the signature below, the attending physician certifies that they have 1) personally conducted a gross and/or microscopic examination of the described specimen(s), and/or personally interpreted the results of laboratory testing of the described specimen(s), and 2) personally rendered or confirmed the above diagnosis. 09/02/2022 8:16 [facility] at 0816 Clinical History Nevus L side umbilicus, pedunculated; Neoplasm of uncertain behavior L thigh 09/02/2022 8:16 [facility] Gross Description A. [...] B1. NNAMDI JONES(ASCP) 09/01/2022 11:51 09/02/2022 8:16 [facility] Performing Lab [facility] 09/02/2022 8:16 [facility] Scanned Images 09/02/2022 8:16 EDT [facility] Tissue TISSUE SPECIMEN FROM SKIN / Unknown 08/31/2022 8:30 EDT 09/01/2022 7:50 EDT Tissue specimen (specimen) SPECIMEN FROM SKIN / Unknown 08/31/2022 8:30 EDT 09/01/2022 7:50 EDT us Treva De Jesus MD PATHOLOGY ORDERABLES Final Res ult [facility] [address] [place] [address] documented in this encounter Visit Diagnoses Diagnosis Encounter for other general examination documented in this encounter Care Teams Senior Office Support Assistant Sosa Relationship Specialty Start Date End Date Christine Fuentes PA-C [address] [place] [phone] PCP - General 10/23/16 documented as of this encounter
--- OUTSIDE RECORDS SUMMARY | 2024-02-06 19:41 | XMS_ITS | Encounter Summary ---
[place] [address] Care Team Providers Care Systems Integrator Name Role Phone Christine Fuentes Primary Care Provider +1- [phone] Reason for Visit * Physical Therapy (Routine) - Closed Specialty Diagnoses / Procedures Referred By Cherie abdul Referred To Contact Physical Therapy Diagnoses Breast cancer Marla Brice MD [facility] [place] [address] [facility] [place] [address] Referral ID Status Reason Start Date Expiration Date Visits Re quested Visits Authorized [id number] Closed 03/13/2018 03/13/2019 1 1 Encounter Details Date Type Department Care Team (Late st Contact Info) Description 03/30/2018 3:15 PM EST Office Visit [place] [address] Debra Madrigal, PT [facility] PHYSICAL MEDICINE & [place] [address] Decreased ROM of right shoulder; Decreased ROM [...] Provider: Marla Brice V Primary Insurance: Payor: [employer] [place] / Plan[place] / [...] pending: none Social: , pt. 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
--- OUTSIDE RECORDS SUMMARY | 2024-02-06 19:41 | XMS_ITS | Encounter Summary ---
Author Organization [facility] [place] [address] Care Team Providers Care Oral And Maxillofacial Surgeon Name Role Phone Christine Fuentes Primary Care Provider +1- [phone] Encounter Details Date Type Department Care Team (Late st Contact Info) Description 08/29/2018 Orders [place] [address] Bautista Mishra MD [facility] [place] [address] Fatty liver Social History Tobacco Use Types [...] disease documented in this encounter Care Teams Oral And Maxillofacial Surgeon Relationship Specialty Start Date End Date Christine Fuentes PA [address] [place] [address] PCP - General Family Medicine 01/24/17 10/08/19 documented as of this encounter
--- OUTSIDE RECORDS SUMMARY | 2024-02-06 19:41 | XMS_ITS | Encounter Summary ---
[place] [address] Care Team Providers Care Care Coordination Manager Name Role Phone Christine Fuentes Primary Care Provider +1- [phone] Encounter Details Date Type Department Care Team (Late st Contact Info) Description 05/08/2018 Telephone Hematology [place] [phone] Trinh Lira Social History Tobacco Use Types [...] on filedocumented in this encounter Care Teams Care Coordination Manager Relationship Specialty Start Date End Date Christine Fuentes PA [address] [place] [address] PCP - General Family Medicine 01/24/17 10/08/19 documented as of this encounter
--- OUTSIDE RECORDS SUMMARY | 2024-02-06 19:41 | XMS_ITS | Encounter Summary ---
[place] [address] Care Team Providers Care Cad Intern Name Role Phone Christine Fuentes Primary Care Provider +1- [phone] Encounter Details Date Type Department Care Team (Late st Contact Info) Description 02/26/2019 2:30 PM [place] [address] January Davis Social History Tobacco Use Types [...] a Camisole. We fit her to the [id number]. She likes it. She is ready for new bras and forms but will come back in March to do that. $50.00 Paid by to [facility] documented in this encounter Plan of Treatment Not on file documented as of this encounter Visit Diagnoses Not on filedocumented in this encounter Care Teams Cad Intern Relationship Specialty Start Date End Date Christine Fuentes PA [address] [place] [address] PCP - General Family Medicine 01/24/17 10/08/19 documented as of this encounter
--- OUTSIDE RECORDS SUMMARY | 2024-02-06 19:41 | XMS_ITS | Encounter Summary ---
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 s/p bilateral mastectomy and right SLNB Breast Cancer Summary Right breast DCIS s/p bilateral mastectomy (no recon) and right SLNB Date: 03/15/18 5 cm, intermediate grade 0 of 4 LNs positive cells,, ER+/SD+ pTNM: ---(m)Tis N0 (AJCC) RIght breast DCIS s/p partial mastectomy and RT in 2009 ([facility]) Left breast, mastectomy: - Focal atypical lobular [...] 6 months for CBE with Barbara Brumfield SOCIAL MEDIA SENIOR ASSOCIATE - drains to be removed today - physical therapy Marla Brice MD Surgical Oncology documented in this encounter Plan of Treatment Not on file documented as of this encounter Visit Diagnoses Diagnosis Ductal carcinoma in situ (DCIS) of right breast documented in this encounter Care Teams Patient Services Assistant Relationship Specialty Start Date End Date Christine Fuentes PA [address] [place] [address] PCP - General Family Medicine 01/24/17 10/08/19 documented as of this encounter
--- OUTSIDE RECORDS SUMMARY | 2024-02-06 19:41 | XMS_ITS | Encounter Summary ---
Author Organization [facility] Address [address] [place] [address] Care Team Providers Care Complex Director Name Role Phone Unknown, Provider Primary Care Provider Unava ilable Encounter Details Date Type Department Care Team (Late st Contact Info) Description 11/29/2010 Results Only [facility] Services - [facility] [address], [place] [id number] Kayli Engel FNP [address] [place], [place] [address] Social History Tobacco Use Types Packs/Day Years [...] ? STEVE MARX ? Accession #: ? [id number] ? : ? 1955 (Age: 55) ??F ?Collect Date: ? 11/29/2010 ? Location: ? [facility] ? Receive Date: ? 11/30/2010 ? Provider: KAYLI ENGEL SHAMPOO TECHNICIAN Copy to: ? Final Report SPECIMEN ADEQUACY ? Satisfactory for Evaluation - transformation zone component present GENERAL CATEGORIZATION ? Epithelial Cell Abnormality INTERPRETATION ? Squamous Cell Abnormality - Atypical squamous cells, undetermined significance (ASC-US). EDUCATIONAL NOTES/RECOMMENDATI ONS ? [facility] recommends following the 2006 Consensus Guidelines for [...] Report [facility] 11/29/2010 11/30/2010 Kayli Engel [facility] PATHOLOGY ORDERABLES Final Resul t [facility] [address] [place] [address] documented in this encounter Visit Diagnoses Not on filedocumented in this encounter Care Teams Complex Director Relationship Specialty Start Date End Date Unknown, Provider, PCP - General 02/02/10 10/22/16 documented as of this encounter
--- OUTSIDE RECORDS SUMMARY | 2024-02-06 19:41 | XMS_ITS | Encounter Summary ---
[place] [address] Care Team Providers Care Open Cut Examiner Name Role Phone Christine Fuentes Primary Care Provider +1- [phone] Encounter Details Date Type Department Care Team (Late st Contact Info) Description 09/11/2018 [place] [phone] January Davis Social History Tobacco Use Types [...] white ?? We ordered her 3 more, [place],Silveira, and Star flower. ?? She paid for all 4 of them today with CC $145.56 ?? F/up: 08/28/18 to pickle processor the 3 we ordered today. ??Kicking Horse,Silveira, and Star flower were mailed to pt and she confirmed she received them. documented in this encounter Plan of Treatment Not on file documented as of this encounter Visit Diagnoses Not on filedocumented in this encounter Care Teams Open Cut Examiner Relationship Specialty Start Date End Date Christine Fuentes PA [address] [place] [address] PCP - General Family Medicine 01/24/17 10/08/19 documented as of this encounter
--- OUTSIDE RECORDS SUMMARY | 2024-02-06 19:41 | XMS_ITS | Encounter Summary ---
Author Organization [facility] Address [address] [place] [address] Care Team Providers Care Educational Speech Language Clinician Name Role Phone Christine Fuentes PA-C Primary Care Provider + Encounter Details Date Type Department Care Team (Late st Contact Info) Description 05/10/2023 Lab Requisition [facility] Pathology & Laboratory Medicine - [address] [address] Outr Resulting Lab, Provider Social History Tobacco [...] 97 - 169 ng/dL 05/10/2023 22:23 EDT [facility] Blood VENOUS BLOOD / Unknown 05/10/2023 9:05 EDT 05/10/2023 21:33 EDT us Provider Outr Resulting Lab CHEMISTRY & BLOOD GA S ORDERABLES Final Result [facility] [address] [place], [place] [id number] documented in this encounter Visit Diagnoses Not on filedocumented in this encounter Care Teams Educational Speech Language Clinician Relationship Specialty Start Date End Date Christine Fuentes PA-C [address] [place] [phone] PCP - General 10/23/16 documented as of this encounter
--- OUTSIDE RECORDS SUMMARY | 2024-02-06 19:41 | XMS_ITS | Encounter Summary ---
[place] [address] Care Team Providers Care Technology Development Intern Name Role Phone Christine Fuentes Primary Care Provider +1- [phone] Encounter Details Date Type Department Care Team (Late st Contact Info) Description 04/19/2019 Orders [place] [address] Christina Fay, RN Malignant neoplasm of right [...] breast documented in this encounter Care Teams Technology Development Intern Relationship Specialty Start Date End Date Christine Fuentes PA [address] [place] [address] PCP - General Family Medicine 01/24/17 10/08/19 documented as of this encounter
--- OUTSIDE RECORDS SUMMARY | 2024-02-06 19:41 | XMS_ITS | Encounter Summary ---
Author Organization [facility] Address [facility] [place] [address] Care Team Providers Care Envelope Sealing Machine Operator Name Role Phone Christine Fuentes Primary Care Provider +1- [phone] Reason for Visit * Reason Comments GI Problem * Consultation (Routine) - Specialty Diagnoses / Procedures Referred By Cherie abdul Referred To Contact Gastroenterology Diagnoses abdominal pain, fatty liver Procedures consult Christine Fuentes PA [address] [place] [address] Concetta Adan MD [facility] [place] [address] Referral ID Status Reason Start Date Expiration Date V isits Requested Visits Authorized [id number] 07/26/2018 07/26/2019 1 1 Encounter Details Date Type Department Care Team (Late st Contact Info) Description 08/28/2018 8:30 AM EDT Office [place] [address] Bautista Mcgrath MD [facility] [place] [address] Fatty liver; Irritable bowel syndrome, unspecified type [...] Bautista Mcgrath - 08/28/2018 8:30 AM EDT [facility] Division of Gastroenterology and Hepatology [...] evaluated once by a GI doctor in [place] where she w as diagnosed with a [...] Stereotactic Biopsy Right 01/30/2018 Babs Duvall MD [facility] RAD MAMMOGRAPHY ??? PRO BX/REMV, LYMPH NODE, DEEP AXILL Right 03/15/2018 BIOPSY OR EXCISION OF LYMPH NODE(S), OPEN, DEEP AXILLARY NODE(S) (WRVU 6.43) performed by Marla Brice MD at [facility] MAIN OR ??? PRO EXCISE BREAST LES W XRAY MARKER Left 03/30/2017 EXCISION LESION, BREAST W/ PREOP.MARKER (NEEDLE LOC.) (WRVU 6.69) performed by Marla Brice MD at [facility] OSC ??? PRO INTRAOP SENTINEL LYMPH ID W/DYE INJECTION Right 03/15/2018 INTRAOPERATIVE ID (MAPPING) SENTINEL LYMPH NODE,INCLUDES INJECTION (WRVU 2.5) performed by Marla Brice MD at [facility] MAIN OR ??? PRO MASTECTOMY, SIMPLE, COMPLETE Bilateral 03/15/2018 MASTECTOMY, SIMPLE, COMPLETE-CARITO (WRVU 15.85) performed by Marla Brice MD at [facility] MAIN OR -- section x 2 [...] limit carbohydrates. Her other symptoms fit the [place] IV criteria for irritable bowel syndrome based [...] Mcgrath MD Fellow in Gastroenterology and Hepatology [place] [id number] P: [phone] F: [phone] CC NNAMDI Nicole [address] [place] [address] * Nella Acevedo MD - 08/28/2018 8:30 [...] Acevedo MD Section of Gastroenterology & Hepatology [address] [place], [place] [id number] documented in this encounter Procedure Notes * Nella Acevedo MD - 08/28/2018 8:30 AM EDTAssociated Order(s): FIBROSCAN Procedure(s): FIBROSCAN Pre-Procedure Diagnose(s): Fatty liver [facility] Liver Fibrosis Assessment Report Indication: Fatty liver on imaging Performed by: Nella Acevedo MD Procedure: Vibration Controlled Transient Elastography (VCTE) or Fibroscan Reeds Protocol: Patient's identity, procedure and site were [...] Routine 08/28/2018 10:30 AM EDT Fatty liver [id number] Routine 08/28/2018 8:30 AM EDT Fatty liver documented in this encounter Results * Iron and TIBC (08/28/2018 10:30 AM EDT) Iron 118 30 - 150 mcg/dL [facility] TIBC 342 250 - 450 mcg/dL [facility] Iron Saturation 35 20 - 50 % [facility] Blood specimen (specimen) Venous Draw / Unknown 08/28/2018 10:30 AM EDT 08/28/2018 1:12 PM EDT Narrative Resulting Agency Comment Spec In Lab Bautista Mcgrath MD CHEMISTRY ORDERAB LES [facility] [place] [address] * Differential, Automated (08/28/2018 10:30 AM EDT) Neutrophil % 44.8 % [facility] Neutrophil Absolute 2.50 1.70 - 6.10 x10(3)/[facility] Lymph % 43.9 % [facility] Lymphocytes Abs 2.4 0.9 - 3.2 x10(3)/[facility] Monocyte % 7.7 % [facility] Monocyte Abs 0.4 0.3 - 0.9 x10(3)/[facility] Eos % 2.3 % [facility] Eosinophils Abs 0.1 0.0 - 0.4 x10(3)/[facility] Basophil % 0.9 % [facility] Baso Absolute 0.0 0.0 - 0.1 x10(3)/[facility] Immature Gran % 0.40 % [facility] Comment: Immature granulocytes(IG's)percentage and absolute count will include metamyelocytes, myelocytes, and promyelocytes. Blood smears from CBCs yielding IG's will be scanned manually for concordance. If this scan disagrees with the automated IG or if promyelocytes are noted, a manual differential will be performed. Immature Gran Absolute 0.02 0.00 - 0.04 x10(3)/[facility] Blood specimen (specimen) 08/28/2018 10:30 AM EDT 08/28/2018 10:39 AM EDT Narrative Resulting Agency Comment Spec In Lab Bautista Mcgrath MD HEMATOLOGY ORDERA BLES [facility] [place] [address] * (ABNORMAL) Hemogram (08/28/2018 10:30 AM EDT) White Blood Cell 5.6 4.0 - 9.5 x10(3)/[facility] Red Blood Cell 4.68 4.00 - 5.21 x10(6)/[facility] Hemoglobin 13.7 11.7 - 15.5 gm/dL [facility] Hematocrit 42.8 35.7 - 45.8 % [facility] Mean Cell Volume 91.5 82.6 - 94.4 fL [facility] Mean Cell Hemoglobin 29.3 27.1 - 32.0 pg [facility] Mean Cell Hemoglobin Concentration 32.0 31.7 - 35.0 gm/dL [facility] Platelet 229 145 - 357 x10(3)/mc L [facility] RDW Standard Deviation 50.4(H) 37.0 - 46.0 fL [facility] RDW coefficient of variation 14.9(H) 11.5 - 14.1 % [facility] Mean Platelet Volume 10.5 7.6 - 12.9 fL [facility] NRBC% auto 0.0 % [facility] NRBC Absolute 0.000 0.000 - 0.000 x10(3)/mc L [facility] Blood specimen (specimen) 08/28/2018 10:30 AM EDT 08/28/2018 10:39 AM EDT Narrative Resulting Agency Comment Spec In Lab Bautista Mcgrath MD HEMATOLOGY ORDERA BLES [facility] [place] [address] * Prothrombin Time (08/28/2018 10:30 AM EDT) Prothrombin Time 11.1 9.4 - 12.5 sec [facility] International Normalization Ratio 1.0 [facility] Comment: An INR <2.0 indicates [...] Lab Nella Acevedo MD HEMATOLOGY ORDERABLE S [facility] [place] [address] * Lipid Panel (08/28/2018 10:30 AM EDT) Cholesterol, Total 220 mg/dL [facility] Comment: Lower Risk: <200 mg/dL Average Risk: 200-239 mg/dL Higher Risk: >pb=461 mg/dL Triglyceride 172 mg/dL [facility] Comment: Average Risk/Lower Risk: <150 mg/dL Borderline High Risk: 150-199 mg/dL High Risk: 200-499 mg/dL Very High Risk: >ob=845 mg/dL HDL Cholesterol 62 mg/dL [facility] Comment: Males: ?? Higher Risk: <40 mg/dL Females: ?? HIgher Risk: <50 mg/dL LDL Cholesterol 124 mg/dL [facility] Comment: Lowest Risk: <100 mg/dL Lower Risk: 100-129 mg/dL Borderline High Risk: 130-159 mg/dL High Risk: 160-189 mg/dL Very High Risk: >rc=872 mg/dL Cholesterol/HDL Ratio 3.5 ratio [facility] Lipid Interpretation See Note [facility] Comment: Lipid management should be guided by a patient? s ASCVD risk, goals and preferences. ACC/AHA Guidelines recommend high intensity statin if clinical ASCVD or LDL greater than or equal to 190 mg/dL. http://tinyurl.com/ABD-DCJ-Ocksrtyfs Adults aged 40-75 with LDL 70-189 mg/dL should have their 10 year ASCVD risk estimated with the ACC/AHA ASCVD risk sales estimator http://tools.acc.org/ESJES-Ucjk-Rarpyzfij/ Statin should be discussed if risk greater [...] In Lab Nella Acevedo MD CHEMISTRY ORDERABLES [facility] [place] [address] * Hemoglobin A1c (08/28/2018 10:30 AM EDT) Hemoglobin A1c 5.4 4.3 - 5.6 % [facility] Comment: Reference Range: 4.3 - [...] Mellitus, Diabetes Care 2013; 36: Suppl. 1, R77-37 Estimated Average Glucose 109 mg/dL [facility] [...] into estimated average glucose values. ??Diabetes Care 2008:31(8):1222-5229. Blood specimen (specimen) 08/28/2018 10:30 AM EDT 08/28/2018 10:39 AM EDT Narrative Resulting Agency Comment Spec In Lab Nella Acevedo MD CHEMISTRY ORDERABLES [facility] [place] [address] * (ABNORMAL) Basic Metabolic Panel (non-fasting) (08/28/2018 10:30 AM EDT) Glucose 102 65 - 199 mg/dL [facility] Comment:Diabetes: >=200 mg/d L plus symptoms Blood Urea Nitrogen 21(H) 8 - 18 mg/dL [facility] Creatinine 0.93 0.70 - 1.20 mg/dL [facility] Sodium 142 135 - 145 mmol/L [facility] Potassium 4.5 3.5 - 5.0 mmol/L [facility] Comment: Please note: ??Patients with WBC >100,000 may have falsely elevated Potassium levels. ??For accurate Potassium quantification in these patients send serum separator tube (gold top) for subsequent determinations. ??Contact the Clinical Chemistry Laboratory if there are any questions. Chloride 107 98 - 107 mmol/L [facility] Carbon Dioxide 22 22 - 31 mmol/L [facility] Anion Gap 13 5 - 15 mmol/L [facility] Calcium 9.3 8.5 - 10.5 mg/dL [facility] Est Glomerular Filtration Rate 66 >=60 mL/min/1. 73 m?? [facility] Comment: The eGFR was calculated using the CKD-EPI equation. As with all creatinine based estimates of kidney function, eGFR values calculated with the CKD-EPI equation are not accurate in patients with acute kidney failure, extremes of body mass or the acutely ill. http://Brainsway/[facility] CITYnkf eGFR 76 >=60 mL/min/1. 73 m?? [facility] Comment: The eGFR was calculated using the CKD-EPI equation. As with all creatinine based estimates of kidney function, eGFR values calculated with the CKD-EPI equation are not accurate in patients with acute kidney failure, extremes of body mass or the acutely ill. http://Brainsway/[facility] CITYnkf Blood specimen (specimen) 08/28/2018 10:30 AM EDT 08/28/2018 10:39 AM EDT Narrative Resulting Agency Comment Spec In Lab Nella Acevedo MD CHEMISTRY ORDERABLES Performing Organization Address [facility] [[email or web address]] Co de Phone Number [facility] [place] [address] * (ABNORMAL) Hepatic Function Panel (08/28/2018 10:30 AM EDT) Protein, Total 7.7 6.1 - 8.0 gm/dL [facility] Albumin 4.3 3.2 - 5.2 gm/dL [facility] Aspartate Aminotransferase 31(H) 0 - 30 unit/L [facility] Alanine Aminotransferase 33(H) 0 - 30 unit/L [facility] Alkaline Phosphatase 74 40 - 104 unit/L [facility] Bilirubin, Total 0.4 0.2 - 1.3 mg/dL [facility] Bilirubin, Direct 0.1 0.0 - 0.3 mg/dL [facility] Blood specimen (specimen) 08/28/2018 10:30 AM EDT 08/28/2018 10:39 AM EDT Narrative Resulting Agency Comment Spec In Lab Nella Acevedo MD CHEMISTRY ORDERABLES Performing Organization Address City/[facility] [[email or web address]] Co de Phone Number [facility] [place] [address] * [id number] (08/28/2018 8:30 AM EDT) Bautista Pendleton - 08/28/2018 8:30 AM EDT Nella Acevedo MD ? 08/28/2018 ??1:08 PM [facility] Liver Fibrosis Assessment Report Indication: ??Fatty liver on imaging Performed by: ??Nella Acevedo MD Procedure: Vibration Controlled Transient Elastography (VCTE) or Fibroscan Reeds Protocol: Patient's identity, procedure and site were [...] type documented in this encounter Care Teams Envelope Sealing Machine Operator Relationship Specialty Start Date End Date Christine Fuentes PA [address] [place] [address] PCP - General Family Medicine 01/24/17 10/08/19 documented as of this encounter
--- OUTSIDE RECORDS SUMMARY | 2024-02-06 19:41 | XMS_ITS | Encounter Summary ---
Author Organization [facility] Address [address] [place] [address] Care Team Providers Care Harp Maker Name Role Phone Unknown, Provider Primary Care Provider Unava ilable Encounter Details Date Type Department Care Team (Latest Contact Info) Description 08/08/2016 8:25 EDT - 08/08/2016 23:59 EDT Hospital Encounter [address] [address] Unknown, Provider, Discharge Disposition: Home or Self [...] Code Departure Means Destination Home or Self [place] documented in this encounter Plan of Treatment Not on file documented as of this encounter Visit Diagnoses Not on filedocumented in this encounter Care Teams Harp Maker Relationship Specialty Start Date End Date Unknown, Provider, PCP - General 02/02/10 10/22/16 documented as of this encounter
--- OUTSIDE RECORDS SUMMARY | 2024-02-06 19:41 | XMS_ITS | Encounter Summary ---
Author Organization [facility] Address [address] [place] [address] Care Team Providers Care Back Pad Inspector Name Role Phone Unknown, Provider Primary Care Provider Unava ilable Encounter Details Date Type Department Care Team (Late st Contact Info) Description 08/08/2016 Results Only [facility] [phone] Sirena Tinajero, [address] [place], [place] [id number] Social History Tobacco Use Types Packs/Day Years [...] ? STEVE MARX ? Accession #: ? [id number] ? : ? 1955 (Age: 61) ??F [...] moderate amount of cytoplasm. ??The melanocytes show electrical designer maturation. ? B-The stratum corneum is thickened [...] (ASCP) 08/09/2016 2:33 PM End of Report [facility] 08/08/2016 10:5 8 EDT 08/09/2016 10:58 EDT us Sirena Tinajero DO PATHOLOGY ORDERABLES Fi nal Result [facility] [address] [place] [address] documented in this encounter Visit Diagnoses Not on filedocumented in this encounter Care Teams Back Pad Inspector Relationship Specialty Start Date End Date Unknown, Provider, PCP - General 02/02/10 10/22/16 documented as of this encounter
--- OUTSIDE RECORDS SUMMARY | 2024-02-06 19:41 | XMS_ITS | Clinical Summary ---
Author Organization [facility] Address [address] [place] [address] Care Team Providers Care Instrument And Control Service Person Name Role Phone Christine Fuentes PA-C Primary [...] - 1-dose 75+ series) 2031 Insurance [employer] MEDICARE [place] Care Teams Instrument And Control Service Person Relationship Specialty Start Date End Date Christine Fuentes PA-C [address] [place] [phone] PCP - General 10/23/16
--- OUTSIDE RECORDS SUMMARY | 2024-02-06 19:41 | XMS_ITS | Encounter Summary ---
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 Hx of kidney stones Encounter Details Date Type Department Care Team (Late st Contact Info) Description 10/23/2016 16:20 EDT - 10/23/2016 19:42 EDT Emergency [facility] Emergency Department - [address] [address] Luis Orantes MD [address] [place] [address], [address] [place] [address] Emergency, MD Tolu Flank pain [...] Personal history of urinary calculi-Z87.442[ICD-10-CM] Z79.899 Other predatory animal exterminator (current) drug therapy-Z79.899[ICD-10-CM] Z79.82 halfway (current) use of aspirin-Z79.82[ICD-10-CM] Z88.3 Allergy status [...] sent through Care Everywhere. * ABDOMINAL PAIN ([place]) documented in this encounter Medications at Time [...] ??? 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 Hx of kidney stones HPI The patient is a 61 y.o. 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 Skin pale, [...] onset, patient was in heated argument with [id number]. She endorses several days of subjective inability [...] Bilirubin Neg Final Ketones Neg Final Specific Cocoa 1.025 Final pH 5.5 Final Protein Neg Final Urobilinogen 0.2 Final Nitrite Neg Final Tech ID [id number] Final Relevant Data Procedures ED COURSE A medical screening exam was performed. The patient is a 61 y.o. female, who presents with sudden onset of left flank pain 30 minutes COLLECTION ADVISOR. She has history of passing a kidney [...] diagnoses: Flank pain DISPOSITION: Discharged PCP: Christine Fuentes [facility] Number of Diagnoses or Management Options new, [...] 11:35 EDT Narrative 10/25/2016 11:35 EDT [facility] - Ultrasound Exam Date: 10/23/2016 Exam Type: POCT US ARTERIAL Rotary Drier Feeder: Luis Orantes MD Attending: Luis Orantes MD [...] Note Luis Orantes MD - 10/25/2016 [facility] - Ultrasound Exam Date: 10/23/2016 Exam Type: POCT US ARTERIAL Rotary Drier Feeder: Luis Orantes MD Attending: Luis Orantes MD [...] (10/23/2016 18:10 EDT) Color YELLOW 10/23/2016 18:19 [facility] Clarity, UA Clear 10/23/2016 18:19 [facility] Glucose Neg Neg 10/23/2016 18:19 [facility] Bilirubin Neg Neg 10/23/2016 18:19 [facility] Ketones Neg Neg 10/23/2016 18:19 [facility] Specific Cocoa 1.025 1.001 - 1.035 10/23/2016 18:19 [facility] Blood 2+(A) Neg 10/23/2016 18:19 [facility] pH 5.5 4.6 - 8.0 10/23/2016 18:19 [facility] Protein Neg Neg 10/23/2016 18:19 [facility] Urobilinogen 0.2 0.2 - 1.0 E.U./dl 10/23/2016 18:19 [facility] Nitrite Neg Neg 10/23/2016 18:19 [facility] Leuk Esterase Trace(A) Neg 10/23/2016 18:19 [facility] tower technician ID [id number] 10/23/2016 18:19 [facility] Comment:Test performed at [facility] Department Urine specimen (specimen) URINE / Unknown 10/23/2016 18:10 EDT 10/23/2016 18:19 EDT us Luis Orantes MD POINT OF CARE TEST ORDERA BLES Final Result [facility] [address] [place] [address] * POCT US RENAL (10/23/2016 17:43 EDT) Anatomical Region Laterality Modality Other 10/23/2016 17:4 3 EDT 10/25/2016 11:34 EDT Narrative 10/25/2016 11:34 EDT [facility] - Ultrasound Exam Date: 10/23/2016 Exam Type: POCT US RENAL Rotary Drier Feeder: Luis Orantes MD Attending: Luis Orantes MD [...] Note Luis Orantes MD - 10/25/2016 [facility] - Ultrasound Exam Date: 10/23/2016 Exam Type: POCT US RENAL Rotary Drier Feeder: Luis Orantes MD Attending: Luis Orantes MD [...] 10/23/2016 documented in this encounter Care Teams Bulk Intake Worker Relationship Specialty Start Date End Date Christine Fuentes PA-C [address] [place] [phone] PCP - General 10/23/16 documented as of this encounter
--- OUTSIDE RECORDS SUMMARY | 2024-02-06 19:41 | XMS_ITS | Encounter Summary ---
[place] [address] Care Team Providers Care Installation Superintendent Name Role Phone Unknown Primary Care Provider Unavailabl e Encounter Details Date Type Department Care Team (Late st Contact Info) Description 04/07/2021 [place] [phone] January Davis Social History Tobacco Use Types [...] on filedocumented in this encounter Care Teams Installation Superintendent Relationship Specialty Start Date End Date Unknown None PCP - General 10/09/19 documented as of this encounter
--- OUTSIDE RECORDS SUMMARY | 2024-02-06 19:41 | XMS_ITS | Encounter Summary ---
Author Organization [facility] Address [address] [place] [address] Care Team Providers Care Diversional Therapist Name Role Phone Unknown, Provider Primary Care Provider Unava ilable Encounter Details Date Type Department Care Team (Late st Contact Info) Description 12/05/2011 Results Only [facility] - [facility] ([facility]) [address] [place], [place] [id number] Kayli Engel FNP [address] [place], [place] [address] Social History Tobacco Use Types Packs/Day Years [...] ? STEVE MARX ? Accession #: ? [id number] : ? 1955 (Age: 56) ??F ?Collect Date: ? 12/05/2011 Location: ? [facility] ? Receive Date: ? 12/07/2011 Provider: ?KAYLI ENGEL CHEESE COOKER Copy to: ? Specimen/Source: ?Pap Test, Cervix/Endocervix, [...] DAMON DERAS 12/05/2011 12/07/2011 us Kayli Engel CHEESE COOKER PATHOLOGY ORDERABLES Final Resul t DAMON DERAS [address] [place] [address] documented in this encounter Visit Diagnoses Not on filedocumented in this encounter Care Teams Diversional Therapist Relationship Specialty Start Date End Date Unknown, Provider, PCP - General 02/02/10 10/22/16 documented as of this encounter
--- OUTSIDE RECORDS SUMMARY | 2024-02-06 19:41 | XMS_ITS | Encounter Summary ---
Author Organization [facility] Address [address] [place] [address] Care Team Providers Care Gyro Mechanic Name Role Phone Unavailable Primary Care Provider Unavailabl e Encounter Details Date Type Department Care Team (Late st Contact Info) Description 11/13/2008 Orders Only [facility] Laboratory Services - [facility] ([facility]) [address] [place], [place] [address] Kayli Engel FNP [address] [place], [place] [id number] Social History Tobacco Use Types Packs/Day Years [...] ? STEVE MARX ? Accession #: ? [id number] ? : ? 1955 (Age: 53) ??F [...] [facility]ON [facility]ER[facility] 11/13/2008 11/14/2008 us Kayli Engel NUCLEAR CARDIOLOGY TECHNOLOGIST PATHOLOGY ORDERABLES Final Resul t DAMON DERAS [address] [place] [address] documented in this encounter Visit Diagnoses Not on filedocumented in this encounter
--- OUTSIDE RECORDS SUMMARY | 2024-02-06 19:41 | XMS_ITS | Encounter Summary ---
Author Organization [facility] Address [address] [place] [address] Care Team Providers Care Test Kitchen Home Economist Name Role Phone Unavailable Primary Care Provider Unavailabl e Encounter Details Date Type Department Care Team (Late st Contact Info) Description 01/28/2010 Results Only [facility] Laboratory Services - [facility] ([facility]) [address] [place], [place] [address] Bautista Forrester, DO [address] [facility] [address] [place], [place] [id number] Social History Tobacco Use Types Packs/Day Years [...] ? STEVE MARX ? Accession #: ? [id number] ? : ? 1955 (Age: 54) ??F ?Collect Date: ? 01/28/2010 ? Location: ? [facility] ? Receive Date: ? 01/29/2010 ? Provider: CHRISTOPHER KI DO ? Copy to: KAYLI LUNDBERG MUSHROOM LABORER ? Final Pathologic Diagnosis: ? A. ?Breast, [...] adipose ? tissue, which is slightly fragmented. ??Loss Prevention Specialist sections are submitted as follows: ? BLOCK [...] A20, A21 ? Level 13, lateral margin, major account representative perpendicular sections ? Received in formalin [...] Tissue submitted: Paraffin embedded tissue block labelled [id number] (A10) ?? from [facility] ? An immunohistochemical assay for estrogen receptors (ER1D5, Dako) and ? progesterone receptors ([id number], Dako) has been performed on this specimen. [...] ? characteristics have been determined by [facility]. ??This ? laboratory is certified under the [...] 01/28/2010 01/29/2010 17: 05 EST us Franklynbobo Rush DO PATHOLOGY ORDERABLES Fi nal Result [facility] [address] [place] [address] documented in this encounter Visit Diagnoses Not on filedocumented in this encounter
--- OUTSIDE RECORDS SUMMARY | 2024-02-06 19:42 | XMS_ITS | Encounter Summary ---
Author Organization [facility] [place] [address] Care Team Providers Care Bone Puller Name Role Phone Christine Fuentes Primary Care Provider +1- [phone] Encounter Details Date Type Department Care Team (Late st Contact Info) Description 02/21/2018 Notes Only Hematology [place] [address] Aliyah Maynard, INSTRUCTIONAL DEVELOPER [facility] DR HEMATOLOGY [place] [address] Social History Tobacco Use Types Packs/Day Years [...] Maynard, RN - 02/21/2018 12:17 PM EST [id number]: Preclinical study of the aryl hydrocarbon receptor and other biomarkers in human adipose tissue and their potential links among obesity and breast cancer Date: 02/21/2018 Objective of visit: Meet with patient in 3K clinic to provide information regarding protocol [id number], answer questions or concerns about study plan [...] and patient will be enrolled on study [id number] per her consent. 2. Orders will be placed for study lab and tissue sample to be taken day of procedure; which will conclude her participation in the study. Dr. Cordova's lab notified. documented in this encounter Plan of Treatment Not on file documented as of this encounter Visit Diagnoses Not on filedocumented in this encounter Care Teams Bone Puller Relationship Specialty Start Date End Date Christine Fuentes PA [address] [place] [address] PCP - General Family Medicine 01/24/17 10/08/19 documented as of this encounter
--- OUTSIDE RECORDS SUMMARY | 2024-02-06 19:42 | XMS_ITS | Encounter Summary ---
Author Organization [facility] Address [facility] [place] [address] Care Team Providers Care Bronzer Name Role Phone Christine Fuentes Primary Care Provider +1- [phone] Encounter Details Date Type Department Care Team (Late st Contact Info) Description 03/30/2017 Notes [place] [address] Evans Almanzar MD [facility] [place] [address] Social History Tobacco Use Types Packs/Day Years [...] on filedocumented in this encounter Care Teams Bronzer Relationship Specialty Start Date End Date Christine Fuentes PA [address] [place] [address] PCP - General Family Medicine 01/24/17 10/08/19 documented as of this encounter
--- OUTSIDE RECORDS SUMMARY | 2024-02-06 19:42 | XMS_ITS | Encounter Summary ---
Author Organization [facility] Address [facility] [place] [address] Care Team Providers Care Ship Fitter Name Role Phone Christine Fuentes Primary Care Provider +1- [phone] Reason for Visit * Consultation (Routine) - Closed Specialty Diagnoses / Procedures Referred By Cherie abdul Referred To Contact Dermatology Diagnoses intertrigo Christine Fuentes PA [address] [place] [address] [facility] [address] [place] [address] Referral ID Status Reason Start Date Expiration Date V isits Requested Visits Authorized [id number] Closed Consult, Test & Treat Connection Center 05/05/2017 05/05/2018 1 1 Encounter Details Date Type Department Care Team (Late st Contact Info) Description 07/03/2017 10:30 AM EDT Office Visit Dermatology at [facility] [address] [place] [address] [facility] [address] [place] [address] Intertrigo Social History Tobacco Use Types Packs/Day [...] a 62 y.o. female referred by Christine Fuetnes with the following concerns: Rash in her [...] - recommended drying the skin with a business administration program chair after bathing - Rx: ketoconazole cream [...] by Krystyna Estrada MD Resident in Dermatology [facility] Patient seen in conjunction with staff communications field technician: Huang Keller MD Section of Dermatology [facility] * Huang Keller MD - 07/03/2017 10:30 AM EDT I was the supervising physician working with Dermatology resident, Dr. Estrada, in the Dermatology Clinic during this patient visit. The level of resident supervision for this patient visit was indirect supervision with direct supervision immediately available (definition: [facility] Policy Statement on Graduate Medical Education, Supervision of Graduate Medical Trainees). I was immediately available to Dr. Estrada for questions and discussion regarding this visit. I have reviewed his encounter note details and level of service. HUANG KELLER MD [facility] Staff Physician documented in this encounter Plan of Treatment Not on file documented as of this encounter Visit Diagnoses Diagnosis Intertrigo Other specified erythematous condition documented in this encounter Care Teams Ship Fitter Relationship Specialty Start Date End Date Christine Fuentes PA [address] [place] [address] PCP - General Family Medicine 01/24/17 10/08/19 documented as of this encounter
--- OUTSIDE RECORDS SUMMARY | 2024-02-06 19:42 | XMS_ITS | Encounter Summary ---
[place] [address] Care Team Providers Care Gift Basket Packer Name Role Phone Christine Fuentes Primary Care Provider +1- [phone] Encounter Details Date Type Department Care Team (Late st Contact Info) Description 02/22/2018 Telephone [place] [address] Elaine Song Social History Tobacco Use Types [...] on filedocumented in this encounter Care Teams Gift Basket Packer Relationship Specialty Start Date End Date Christine Fuentes PA [address] [place], [place] [address] PCP - General Family Medicine 01/24/17 10/08/19 documented as of this encounter
--- OUTSIDE RECORDS SUMMARY | 2024-02-06 19:42 | XMS_ITS | Encounter Summary ---
[place] [address] Care Team Providers Care Scratcher Name Role Phone Christine Fuentes Primary Care Provider +1- [phone] Encounter Details Date Type Department Care Team (Late st Contact Info) Description 03/12/2018 Telephone Hematology [place] [address] Kiersten Wilson RN Social History Tobacco Use [...] that she will undergo root canal (in [facility] on 03/13. She has been on penicillin and Tylenol for pain for toothache since 03/10. She is aware [facility] will schedule her post operative appts. with Dr. Brice, a medical oncologist, and PT. Cecilia has our contact numbers. documented in this encounter Plan of Treatment Not on file documented as of this encounter Visit Diagnoses Not on filedocumented in this encounter Care Teams Scratcher Relationship Specialty Start Date End Date Christine Fuentes PA [address] [place] [address] PCP - General Family Medicine 01/24/17 10/08/19 documented as of this encounter
--- OUTSIDE RECORDS SUMMARY | 2024-02-06 19:42 | XMS_ITS | Encounter Summary ---
Author Organization [facility] [place] [address] Care Team Providers Care Field Consultant Name Role Phone Christine Fuentes Primary Care Provider +1- [phone] Reason for Referral * Consultation (Routine) - Closed Specialty Diagnoses / Procedures Referred By Cherie abdul Referred To Contact Hematology and Oncology Diagnoses Breast cancer screening, high risk patient History of breast cancer Rhoda Brumfield APRN [facility] [place] [address] St Hem Onc Office [address] [place] [id number] Referral ID Status Reason Start Date Expiration Date V isits Requested Visits Authorized [id number] Closed Consult, Test & Treat 04/13/2017 04/13/2018 1 1 Reason for Visit * Reason Comments Follow Up Surgery Encounter Details Date Type Department Care Team (Late st Contact Info) Description 04/13/2017 10:45 AM EST Office [place] [address] Rhoda Brumfield APRN [facility] [place] [address] Breast cancer screening, high risk patient; History [...] requests a referral to Dr Stack in [facility]. She declines an appt [...] breast documented in this encounter Care Teams Field Consultant Relationship Specialty Start Date End Date Christine Fuentes PA [address] [place] [address] PCP - General Family Medicine 01/24/17 10/08/19 documented as of this encounter
--- OUTSIDE RECORDS SUMMARY | 2024-02-06 19:42 | XMS_ITS | Encounter Summary ---
[place] [address] Care Team Providers Care Spiral Winding Machine Helper Name Role Phone Christine Fuentes Primary Care Provider +1- [phone] Reason for Referral * Diagnostic Test (Routine) - Closed Specialty Diagnoses / Procedures Referred By Contac t Referred To Contact Radiology Diagnoses Malignant neoplasm of right breast in female, estrogen receptor positive, unspecified site of breast Procedures MRI Breast wwo Contrast Marla Pearce MD [facility] [place] [address] [place] [address] Referral ID Status Reason Start Date Expiration Date V isits Requested Visits Authorized [id number] Closed Specialty Service Requested 02/10/2018 04/10/2018 1 1 Reason for Visit * Diagnostic Test (Routine) - Closed Specialty Diagnoses / Procedures Referred By Contperez t Referred To Contact Radiology Diagnoses Malignant neoplasm of right breast in female, estrogen receptor positive, unspecified site of breast Procedures MRI Breast wwo Contrast Marla Pearce MD [facility] [place] [address] [place] [address] Referral ID Status Reason Start Date Expiration Date V isits Requested Visits Authorized [id number] Closed Specialty Service Requested 02/10/2018 04/10/2018 1 1 Encounter Details Date Type Department Care Team (Late st Contact Info) Description 02/16/2018 10:27 AM EST - 02/16/2018 11:59 PM EST Hospital Encounter MRI at [facility] [place] [address] Marla Brice MD [facility] [place] [address] Malignant neoplasm of right breast in female, [...] contrast enhancement curve analysis was performed, using WaveRx software. COMPARISON STUDIES: Compared and/or correlated with [...] contrast enhancement curve analysis was performed, using WaveRx software. COMPARISON STUDIES: Compared and/or correlated with [...] mLs documented in this encounter Care Teams Spiral Winding Machine Helper Relationship Specialty Start Date End Date Christine Fuentes PA [address] [place] [address] PCP - General Family Medicine 01/24/17 10/08/19 documented as of this encounter
--- OUTSIDE RECORDS SUMMARY | 2024-02-06 19:42 | XMS_ITS | Encounter Summary ---
[place] [address] Care Team Providers Care Practice Representative Name Role Phone Christine Fuentes Primary Care Provider +1- [phone] Encounter Details Date Type Department Care Team (Late st Contact Info) Description 01/22/2018 10:45 AM EST Office [place] [address] Rhoda Brumfield, PROJECT PLANNER [facility] [place] [address] Breast cancer screening, high risk patient Social History Tobacco Use Types Packs/Day Years Used Date Smoking Tobacco: Former Cigarettes Q uit: 10/19/2011 Smokeless Tobacco: Never Sex and Gender Information Value Date Recorded Sex Assigned at Not on file Gender Identity Not on file Sexual Orientation Not on file documented as of this encounter Progress Notes * Rhoda Brumfield, PROJECT PLANNER - 01/22/2018 10:45 AM EST Ms. Marx [...] patient documented in this encounter Care Teams Practice Representative Relationship Specialty Start Date End Date Christine Fuentes PA [address] [place] [address] PCP - General Family Medicine 01/24/17 10/08/19 documented as of this encounter
--- OUTSIDE RECORDS SUMMARY | 2024-02-06 19:42 | XMS_ITS | Encounter Summary ---
Author Organization [facility] Address [facility] [place] [address] Care Team Providers Care Accounts Clerk Name Role Phone Christine Fuentes Primary Care Provider +1- [phone] Encounter Details Date Type Department Care Team (Late st Contact Info) Description 03/30/2017 8:[address] [facility] Hospital [place] [address] Marla Brice MD [facility] [place] [address] Breast lesion Discharge Disposition: Home Social History [...] disorder documented in this encounter Care Teams Accounts Clerk Relationship Specialty Start Date End Date Christine Fuentes PA [address] [place] [address] PCP - General Family Medicine 01/24/17 10/08/19 documented as of this encounter
--- OUTSIDE RECORDS SUMMARY | 2024-02-06 19:42 | XMS_ITS | Encounter Summary ---
[place] [address] Care Team Providers Care Residential Designer Name Role Phone Christine Fuentes Primary Care Provider +1- [phone] Reason for Referral * Consultation (Urgent) - Closed Specialty Diagnoses / Procedures Referred By Contperez t Referred To Contact Hematology and Oncology Diagnoses Hormone receptor positive malignant neoplasm of breast, unspecified laterality Marla Brice MD [facility] [place] [address] [facility] Hem Onc [address] [place] [address] Referral ID Status Reason Start Date Expiration Date V isits Requested Visits Authorized [id number] Closed Consult, Test & Treat 02/02/2018 02/02/2019 1 1 Encounter Details Date Type Department Care Team (Late st Contact Info) Description 02/02/2018 Telephone Hematology [place] [address] Kiersten Wilson RN Social History [...] a 62 y.o. female with newly diagnosed ER/AZ+ right breast DCIS (right breast stereotactic guided biopsy 01/30/2018 at [facility]). PERSONAL HISTORY of BREAST CANCER Cecilia Marx has a history of right breast DCIS treated with partial mastectomy ([address] Forrester) and radiotherapy (2010 at [facility], [facility]). Cecilia has a history of left breast wide local excision 03/30/[address] Morales (for ADH, ALH, benignpapillary lesion, etc.). She met with Dr. Stack in [facility] after this to discuss chemoprevention which [...] sent. She prefers to be seen in [facility] over [place], but will take the earliest appt. She [...] laterality documented in this encounter Care Teams Residential Designer Relationship Specialty Start Date End Date Christine Fuentes PA [address] [place] [address] PCP - General Family Medicine 01/24/17 10/08/19 documented as of this encounter
--- OUTSIDE RECORDS SUMMARY | 2024-02-06 19:42 | XMS_ITS | Encounter Summary ---
Author Organization [facility] [place] [address] Care Team Providers Care Deployment Technician Name Role Phone Christine Fuentes Primary Care Provider +1- [phone] Encounter Details Date Type Department Care Team (Late st Contact Info) Description 03/01/2018 Orders Only Hematology [place] [address] Aliyah Connors, ORDER MANAGER [facility] [place] [address] Research subject (Primary Dx) Social History Tobacco [...] children documented in this encounter Care Teams Deployment Technician Relationship Specialty Start Date End Date Christine Fuentes PA [address] [place] [address] PCP - General Family Medicine 01/24/17 10/08/19 documented as of this encounter
--- OUTSIDE RECORDS SUMMARY | 2024-02-06 19:42 | XMS_ITS | Encounter Summary ---
Author Organization [facility] Address [facility] [place] [address] Care Team Providers Care Psychiatric Aide Name Role Phone Christine Fuentes Primary Care Provider +1- [phone] Reason for Visit * Auth/Cert Specialty Diagnoses [...] Expiration Date Visits Re quested Visits Authorized [id number] 1 1 Encounter Details Date Type Department Care Team (Late st Contact Info) Description 03/15/2018 1:11 PM EST - 03/16/2018 11:45 AM [facility] Hospital [place] [address] Marla Zepeda MD [facility] [place] [address] Malignant neoplasm of female breast, unspecified estrogen [...] this encounter Discharge Summaries * Aleah Vigil, HOUSE DECORATOR - 03/16/2018 10:42 AM EST General Surgery [...] s/p partial mastectomy and RT in 2009 ([facility]). She was followed by surgeon for 5 [...] - Primary * Sera Weller MD - Resident-Waste Removalist * Vu Angela MD - Resident-Surgeon Tonny [...] Discharge: Final Surgical Pathology pending. Studies: NM [place] Node Injection Breast wo Imaging (03/16): IMPRESSION [place] node injections performed without complication. Discharge Exam: [...] to: Home VNA: Yes Name of facility: [facility] Contact information: PHONE: [phone] Discharge Conditions/Prognosis: Stable Discharge Medications: The following [...] PM Avi Talbot MD Leb Hem Onc [facility] 03/30/2018 3:15 PM Magdalena Madrigal, PT PT Rehab [facility] Outpatient Services/Studies: Referral to Home Health - at DISCHARGE Order Comments: DOCUMENTATION FOR VNA SERVICES (INCLUDING THOSE PATIENTS WITH MEDICARE COVERAGE REQUIRING HOME VNA SERVICES AND/OR HOSPICE SERVICES) PATIENT'S LOCATION: Cecilia Marx [address] [place] [address] (home) [phone] (cell) Rehab Liaison's Name: Self In discussion with the attending physician, it is certified that this patient is under their care and that they, or a Nurse Practitioner,Clinical Nurse specialist or Physician Senior Science Consultant who is working directly with them, had [...] program if appropriate. HOME HEALTH CARE AGENCY: [facility]. PHONE: [phone] FAX: [phone] Start of care: 24-48 hrs after discharge Please note that any additional orders needs or changes will need to be obtained from this patient's PCP: NNAMDI Nicole [address] / [place] [address] All A agencies which cover the area of patient's residence have been reviewed, either verbally stacia writing, and patient/family have chosen the home health care agency noted Question Response Notes Agency name and contact information [facility] Patient location post discharge Home [...] than 30cc perday for 2 consecutive days. [phone] You may shower with the drains in [...] Dr. Zepeda in 2-3 weeks Please call [phone] to confirm date and time of your appointment if you do not hear from us inthe week. Call Doctor for: Worsening redness or drainage from your incision lasting longer than 5 days following surgery Any foul-smelling drainage from the incision Fevers greater than 101 degrees F Persistent nausea or vomiting (this may be related to opioid pain medications) Phone number for questions: [phone] before 5 PM weekdays [phone] after 5 PM and on weekends/holidays Future Appointments Date Time Provider Department Center 03/30/2018 1:30 PM Marla Zepeda MD Leb Surg [facility] 03/30/2018 2:00 PM Avi Talbot MD [facility] Hem Onc [facility] 03/30/2018 3:15 PM Magdalena Madrigal, PT PT Rehab [facility] General Instructions None Acute Opioid [...] CC: NNAMDI Nicole Signed: Aleah Vigil APRN [facility] Surgical Oncology Service Team Pager #[phone] [...] than 30cc perday for 2 consecutive days. [phone] You may shower with the drains in [...] Dr. Zepeda in 2-3 weeks Please call [phone] to confirm date and time of your appointment if you do not hear from us inthe week. Call Doctor for: Worsening redness or drainage from your incision lasting longer than 5 days following surgery Any foul-smelling drainage from the incision Fevers greater than 101 degrees F Persistent nausea or vomiting (this may be related to opioid pain medications) Phone number for questions: [phone] before 5 PM weekdays [phone] after 5 PM and on weekends/holidays Future Appointments Date Time Provider Department Center 03/30/2018 1:30 PM Marla Zepeda MD Leb Surg [facility] 03/30/2018 2:00 PM Avi Talbot MD Leb Hem Onc [facility] 03/30/2018 3:15 PM Magdalena Madrigal, PT PT Rehab [facility] * Attachments The following attachments cannot be sent through Care Everywhere. 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 A letter describing our affiliations was reviewed with them and they were educated about their right to choose where referrals are placed. Patient requests referral to [facility] [employer]. PHONE: [phone] FAX: [phone]. Expected date of discharge: 03/16/18. Referral routed to the Commodity Analyst for matching with agency/vendor and to provide [...] supportive. He will be staying in the [facility] overnight and will keep all pt [...] tender at 2113 on 03/15/18, verified by uLis Womack and noemi that there were two specimens in the bag , right sentinal node and left breast tissue. Contact the patient to update him on the procedure at 2025 on 03/15/18. documented in this encounter Miscellaneous Notes * Op Note - Marla Zepeda MD - 03/16/2018 11:45 AM EST [facility] Operative Note Patient Name: Cecilia Marx : [id number] MR#: [id number] Case Date: 03/15/2018 Surgeon: Surgeon(s) and Role: * Marla Zepeda MD - Primary * Sera Weller MD - Resident-Waste Removalist * Vu Angela MD - Resident-Surgeon Tonny [...] Operative Note Patient Name: Cecilia Marx : [id number] MR#: [id number] Case Date: 03/15/2018 Surgeon: Surgeon(s) and Role: * Marla Zepeda MD - Primary * Sera Weller MD - Resident-Waste Removalist * Vu Angela MD - Resident-Surgeon Tonny [...] PM EST 03/15/2018 9:38 PM EST Narrative [facility] - 03/15/2018 9:38 PM EST Specimen requisition ordered. ??Separate Pathology report to follow Resulting Agency Comment Spec In Lab Marla Blue MD PATHOLOGY/CYTOLO GY ORDERABLES Performing Organization Address [facility] Co de Phone Number [facility] [place] [address] * Specimen to Pathology (03/15/2018 9:00 PM EST) AP Specimen 03/15/2018 9:00 PM EST 03/15/2018 9:37 PM EST Narrative [facility] - 03/15/2018 9:38 PM EST Specimen requisition ordered. ??Separate Pathology report to follow Resulting Agency Comment Spec In Lab Marla Blue MD PATHOLOGY/CYTOLO GY ORDERABLES Performing Organization Address [facility] Co de Phone Number [facility] [place] [address] * Specimen to Pathology (03/15/2018 8:06 PM EST) AP Specimen 03/15/2018 8:06 PM EST 03/15/2018 8:06 PM EST Narrative [facility] - 03/15/2018 8:06 PM EST Specimen requisition ordered. ??Separate Pathology report to follow Marla Blue MD PATHOLOGY/CYTOLO GY ORDERABLES Performing Organization Address [facility] Co de Phone Number [facility] [place] [address] * Surgical Pathology Report (03/15/2018 8:04 PM EST) Final Diagnosis [id number] ? [facility]; A The signing pathologist has (i) examined [...] ?? Uninvolved by tumor cells ?Number of [place] Nodes Examined: ?4 Pathologic Stage Classification (pTNM, AJCC 8th Edition) ? Primary Tumor (pT): ?? pTis (DCIS) ? Regional Lymph Nodes (pN) ?Modifier: ??(sn): [place] node(s) evaluated. ?Category (pN): ?? pN0 Tumor Block(s): ?? A11 CAP eCC February 2017 Agile Release ER and MS studies (performed on prior biopsy, [id number]): ER: Positive (>90%, strong) MS: Positive (50%, moderate to strong) Electronically signed by: ??Antonio BANGURA, Delon Lewis Verified: ??03/22/2018 ?Pathologist Performed at: ??-[facility] Dept. of Pathology, [place], [place] . DISCUSSION An admixture of atypical [...] is blue, deep is black. Sections/Processi ng: Administrative Job Titles sections in 22 cassettes as follows: ? [...] 2.5 cm. . SPECIMEN PROCESSING Sections/Processi ng: ??Administrative Job Titles sections in 6 cassettes as follows: ? [...] noted. Ink Designation: Deep/black; superficial/blue. Sections/Processi ng: Administrative Job Titles sections in 12 cassettes as follows: ? C1: ? Nipple ? C2: ? Base of nipple ? C3-C4: ?Administrative Job Titles upper outer quadrant ? C5-C6: ?Administrative Job Titles lower inner quadrant ? C7-C8: ?Administrative Job Titles central ? C9-C10: ?? Administrative Job Titles upper inner quadrant ? C11-C12: ??Administrative Job Titles lower inner quadrant Ischemic Time: 0.8 hours ??pps 03/22/2018 4:03 PM EST [facility] BREAST STRUCTURE / Unknown 03/15/2018 8:04 PM EST 03/15/2018 8:04 PM EST SENTINEL LYMPH NODE / Unknown 03/15/2018 8:04 PM EST 03/15/2018 8:04 PM EST BREAST STRUCTURE / Unknown 03/15/2018 8:04 PM EST 03/15/2018 8:04 PM EST Marla Blue MD PATHOLOGY/CYTOLO GY ORDERABLES Performing Organization Address City/State/[facility] Co de Phone Number [facility] [place] [address] documented in this encounter Visit Diagnoses Diagnosis [...] Unit) documented in this encounter Care Teams Psychiatric Aide Relationship Specialty Start Date End Date Christine Fuentes PA [address] [place] [address] PCP - General Family Medicine 01/24/17 10/08/19 documented as of this encounter
--- OUTSIDE RECORDS SUMMARY | 2024-02-06 19:42 | XMS_ITS | Encounter Summary ---
[place] [address] Care Team Providers Care Wall Man Name Role Phone Christine Fuentes Primary Care Provider +1- [phone] Reason for Referral * Diagnostic Test (Routine) - Closed Specialty Diagnoses / Procedures Referred By Cherie abdul Referred To Contact Radiology Diagnoses Ductal carcinoma in situ (DCIS) of right breast Procedures NM [place] Node Injection Breast wo Imaging Marla Brice MD [facility] [place] [address] [place] [address] Referral ID Status Reason Start Date Expiration Date V isits Requested Visits Authorized [id number] Closed Specialty Service Requested 02/23/2018 02/23/2019 1 1 Encounter Details Date Type Department Care Team (Late st Contact Info) Description 02/23/2018 Orders [place] [address] Marla Brice MD [facility] [place] [address] Ductal carcinoma in situ (DCIS) [...] as of this encounter Results * NM [place] Node Injection Breast wo Imaging (03/15/2018 1:11 PM EST) Anatomical Region Laterality Modality Nuclear Medicine Impressions 03/15/2018 1:50 PM EST [place] node injections performed without complication. Thank you for letting us participate in the care of this patient. For questions regarding this report, please contact the number below. ? Electronically signed by: Aleksandar Ibanez [facility] ([phone]), at 03/15/2018 1:50 PM Narrative 03/15/2018 1:50 [...] patient left the department ingood condition. IMPRESSION [place] node injections performed without complication. Thank you for letting us participate in the care of this patient. Forquestions regarding this report, please contact the number below. 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
--- OUTSIDE RECORDS SUMMARY | 2024-02-06 19:42 | XMS_ITS | Encounter Summary ---
Author Organization [facility] [place] [address] Care Team Providers Care Veterans Adviser Name Role Phone Christine Fuentes Primary Care Provider +1- [phone] Reason for Referral * Diagnostic Test (Routine) - Closed Specialty Diagnoses / Procedures Referred By Cherie abdul Referred To Contact Radiology Diagnoses Malignant neoplasm of right breast in female, estrogen receptor positive, unspecified site of breast Procedures MRI Breast wwo Contrast Marla Pearce MD [facility] [place] [place] [address] [place] [address] Referral ID Status Reason Start Date Expiration Date V isits Requested Visits Authorized [id number] Closed Specialty Service Requested 02/10/2018 04/10/2018 1 1 Encounter Details Date Type Department Care Team (Late st Contact Info) Description 02/01/2018 Orders Only [place] [address] Marla Brice MD [facility] [place] [address] Malignant neoplasm of right breast in female, [...] contrast enhancement curve analysis was performed, using [employer] software. COMPARISON STUDIES: Compared and/or correlated with [...] contrast enhancement curve analysis was performed, using [employer] software. COMPARISON STUDIES: Compared and/or correlated with [...] breast documented in this encounter Care Teams Veterans Adviser Relationship Specialty Start Date End Date Christine Fuentes PA [address] [place] [address] PCP - General Family Medicine 01/24/17 10/08/19 documented as of this encounter
--- OUTSIDE RECORDS SUMMARY | 2024-02-06 19:42 | XMS_ITS | Encounter Summary ---
Author Organization [facility] [place] [address] Care Team Providers Care Ncr Operator Name Role Phone Christine Fuentes Primary Care Provider +1- [phone] Reason for Visit * Auth/Cert Specialty Diagnoses [...] Expiration Date Visits Re quested Visits Authorized [id number] 1 1 Encounter Details Date Type Department Care Team (Late st Contact Info) Description 03/15/2018 2:41 PM EST - 03/15/2018 5:54 PM EST Surgery [place] [address] Marla Zepeda MD [facility] [place] [address] MASTECTOMY, SIMPLE, COMPLETE-CARITO (WRVU 15) Social History [...] this encounter Discharge Summaries * Aleah Vigil, SALON COORDINATOR - 03/16/2018 10:42 AM EST General Surgery [...] s/p partial mastectomy and RT in 2009 ([facility]). She was followed by surgeon for 5 [...] bony pain or tenderness.stopped drinking wine around [place] time due to depression. ?? Reports a left breast infection about 2-3 weeks after biopsy. Had redness, pain and inverted nipple. She was started on augmentin for 21 days and symptoms resolved. ?? Here today with her . Operations/Major Procedures: Operations: 03/15/2018 Surgeon(s) and Role: * Marla Zepeda MD - Primary * Sera Weller MD - Resident-Feed House Supervisor * Vu Angela MD - Resident-Surgeon Tonny [...] Discharge: Final Surgical Pathology pending. Studies: NM [place] Node Injection Breast wo Imaging (03/16): IMPRESSION [place] node injections performed without complication. Discharge Exam: [...] to: Home VNA: Yes Name of facility: [facility] Contact information: PHONE: [phone] Discharge Conditions/Prognosis: Stable Discharge Medications: The following [...] HOSPICE SERVICES) PATIENT'S LOCATION: Cecilia Marx [facility] [id number] (home) [phone] (cell) Call Out Operator's Name: Self In discussion with the attending physician, it is certified that this patient is under their care and that they, or a Nurse Practitioner,Clinical Nurse specialist or Physician Dural Mechanic who is working directly with them, had [...] program if appropriate. HOME HEALTH CARE AGENCY: [facility]. PHONE: [phone] FAX: [phone] Start of care: 24-48 hrs after discharge Please note that any additional orders needs or changes will need to be obtained from this patient's PCP: NNAMDI Nicole [address] / [place] [address] All VNA agencies which cover the area of patient's residence have been reviewed, either verbally stacia writing, and patient/family have chosen the home health care agency noted Question Response Notes Agency name and contact information [facility] Patient location post discharge Home [...] than 30cc perday for 2 consecutive days. [phone] You may shower with the drains in [...] Dr. Zepeda in 2-3 weeks Please call [phone] to confirm date and time of your appointment if you do not hear from us inthe week. Call Doctor for: Worsening redness or drainage from your incision lasting longer than 5 days following surgery Any foul-smelling drainage from the incision Fevers greater than 101 degrees F Persistent nausea or vomiting (this may be related to opioid pain medications) Phone number for questions: [phone] before 5 PM weekdays [phone] after 5 PM and on weekends/holidays Future [...] CC: NNAMDI Nicole Signed: Aleah Vigil APRN [facility] Surgical Oncology Service Team Pager #[phone] 03/16/2018 11:44 AM documented in this encounter [...] than 30cc perday for 2 consecutive days. [phone] You may shower with the drains in [...] Dr. Zepeda in 2-3 weeks Please call [phone] to confirm date and time of your appointment if you do not hear from us inthe week. Call Doctor for: Worsening redness or drainage from your incision lasting longer than 5 days following surgery Any foul-smelling drainage from the incision Fevers greater than 101 degrees F Persistent nausea or vomiting (this may be related to opioid pain medications) Phone number for questions: [phone] before 5 PM weekdays [phone] after 5 PM and on weekends/holidays Future [...] through Care Everywhere. * Surgical Drain Care (Togolese) documented in this encounter Medications at Time [...] RN - 03/16/2018 9:46 AM EST The patient/community health representative has been provided a list of Home Health Agencies which serve their preferred geographic area. A letter describing our affiliations was reviewed with them and they were educated about their right to choose where referrals are placed. Patient requests referral to [facility] [place]. PHONE: [phone] FAX: [phone]. Expected date of discharge: 03/16/18. Referral routed to the Tubular Riveter for matching with agency/vendor and to provide [...] supportive. He will be staying [facility] overnight and will keep all pt [...] Zepeda MD - 03/16/2018 11:45 AM EST [facility] Operative Note Patient Name: Cecilia Marx : [id number] MR#: [id number] Case Date: 03/15/2018 Surgeon: Surgeon(s) and Role: * Marla Zepeda MD - Primary * Sera Weller MD - Resident-Feed House Supervisor * Vu Angela MD - Resident-Surgeon Tonny [...] Operative Note Patient Name: Cecilia Marx : [id number] MR#: [id number] Case Date: 03/15/2018 Surgeon: Surgeon(s) and Role: * Marla Zepeda MD - Primary * Sera Weller MD - Resident-Feed House Supervisor * Vu Angela MD - Resident-Surgeon Tonny [...] PM EST 03/15/2018 9:[address] [facility] - 03/15/2018 9:38 PM EST Specimen requisition ordered. ??Separate Pathology report to follow Resulting Agency Comment Spec In Lab Marla Blue MD PATHOLOGY/CYTOLO GY ORDERABLES Performing Organization Address City/[facility]/[place] [address] * Specimen to Pathology (03/15/2018 9:00 PM EST) AP Specimen 03/15/2018 9:00 PM EST 03/15/2018 9:[address] [facility] - 03/15/2018 9:38 PM EST Specimen requisition ordered. ??Separate Pathology report to follow Resulting Agency Comment Spec In Lab Marla Blue MD PATHOLOGY/CYTOLO GY ORDERABLES Performing Organization Address City/[facility]/ZIP Co de Phone Number [facility] [place] [address] * Specimen to Pathology (03/15/2018 8:06 PM EST) AP Specimen 03/15/2018 8:06 PM EST 03/15/2018 8:[address] [facility] - 03/15/2018 8:06 PM EST Specimen requisition ordered. ??Separate Pathology report to follow Marla Blue MD PATHOLOGY/CYTOLO [place] [address] * Surgical Pathology Report (03/15/2018 8:04 PM EST) Final Diagnosis [id number] ? [facility]; A The signing [...] ?? Uninvolved by tumor cells ?Number of [place] Nodes Examined: ?4 Pathologic Stage Classification (pTNM, AJCC 8th Edition) ? Primary Tumor (pT): ?? pTis (DCIS) ? Regional Lymph Nodes (pN) ?Modifier: ??(sn): [place] node(s) evaluated. ?Category (pN): ?? pN0 Tumor Block(s): ?? A11 CAP eCC February 2017 Agile Release ER and MN studies (performed on prior biopsy, [id number]): ER: Positive (>90%, strong) MN: Positive (50%, moderate to strong) Electronically signed by: ??Antonio BANGURA, Delon Lewis Verified: ??03/22/2018 ?Pathologist Performed at: ??-[facility] Dept. of Pathology, [place], [place] . DISCUSSION An admixture of atypical [...] is blue, deep is black. Sections/Processi ng: Flue Dust Laborer sections in 22 cassettes as follows: ? [...] 2.5 cm. . SPECIMEN PROCESSING Sections/Processi ng: ??Flue Dust Laborer sections in 6 cassettes as follows: ? [...] noted. Ink Designation: Deep/black; superficial/blue. Sections/Processi ng: Flue Dust Laborer sections in 12 cassettes as follows: ? C1: ? Nipple ? C2: ? Base of nipple ? C3-C4: ?Flue Dust Laborer upper outer quadrant ? C5-C6: ?Flue Dust Laborer lower inner quadrant ? C7-C8: ?Flue Dust Laborer central ? C9-C10: ?? Flue Dust Laborer upper inner quadrant ? C11-C12: ??Flue Dust Laborer lower inner quadrant Ischemic Time: 0.8 hours ??pps 03/22/2018 4:[address] [facility] BREAST STRUCTURE / Unknown 03/15/2018 8:04 PM EST 03/15/2018 8:04 PM EST SENTINEL LYMPH NODE / Unknown 03/15/2018 8:04 PM EST 03/15/2018 8:04 PM EST BREAST STRUCTURE / Unknown 03/15/2018 8:04 PM EST 03/15/2018 8:04 PM EST Marla Blue MD PATHOLOGY/CYTOLO GY ORDERABLES [facility] [place] [id number] documented in this encounter Visit Diagnoses Not [...] Unit) documented in this encounter Care Teams Ncr Operator Relationship Specialty Start Date End Date Christine Fuentes PA [address] [place] [address] PCP - General Family Medicine 01/24/17 10/08/19 documented as of this encounter
--- OUTSIDE RECORDS SUMMARY | 2024-02-06 19:42 | XMS_ITS | Encounter Summary ---
Author Organization [facility] [place] [address] Care Team Providers Care Chart Writer Name Role Phone Christine Fuentes Primary Care Provider +1- [phone] Encounter Details Date Type Department Care Team (Late st Contact Info) Description 03/11/2018 Telephone [place] [id number] Concetta Mullen MD [facility] [place] [address] Social History Tobacco Use Types Packs/Day Years [...] on filedocumented in this encounter Care Teams Chart Writer Relationship Specialty Start Date End Date Christine Fuentes PA [address] [place] [address] PCP - General Family Medicine 01/24/17 10/08/19 documented as of this encounter
--- OUTSIDE RECORDS SUMMARY | 2024-02-06 19:42 | XMS_ITS | Encounter Summary ---
[place] [address] Care Team Providers Care Mechanical Product Design Engineer Name Role Phone Christine Fuentes Primary Care Provider +1- [phone] Reason for Visit * Auth/Cert Specialty Diagnoses / Procedures Referred By Cherie abdul Referred To Contact Diagnoses LEFT BREAST COMPLEX SCLEROSING LESION Procedures PRO EXCISE BREAST LES W XRAY MARKER EXCISION LESION, BREAST W/ PREOP.MARKER (NEEDLE LOC.) (WRVU 6.69) MODIFIER WITH NEEDLE LOC., LESION #1 Referral ID Status Reason Start Date Expiration Date Visits Re quested Visits Authorized [id number] 1 1 Encounter Details Date Type Department Care Team (Late st Contact Info) Description 03/30/2017 11:40 AM EST - 03/30/2017 1:17 PM EST Surgery [place] [address] Savana Zepeda MD [facility] [place] [address] EXCISION LESION, BREAST W/ PREOP.MARKER (NEEDLE LOC.) [...] closest emergency room or call the hospital mixer crane operator at [phone] and ask for physician telecommunications sales representative covering for your physician. Questions or problems after 5pm or on a weekend: Call the [facility] mixer crane operator at and ask for the physician telecommunications sales representative covering for your doctor. * Patient Instructions* [...] 04/13/2017 10:45 AM Rhoda Brumfield APRN [facility] CLIN Call Doctor for: Worsening redness or drainage from your incision lasting longer than 5 days following surgery Any foul-smelling drainage from the incision Fevers greater than 101 degrees F Persistent nausea or vomiting (this may be related to opioid pain medications) Phone number for questions: [phone] before 5 PM weekdays [phone] after 5 PM and on weekends/holidays documented [...] Zepeda MD - 03/30/2017 1:48 PM EST [facility] Operative Note Patient Name: Cecilia Marx : [id number] MR#: [id number] Case Date: 03/30/2017 Surgeon: Surgeon(s) and Role: [...] Operative Note Patient Name: Cecilia Marx : [id number] MR#: [id number] Case Date: 03/30/2017 Surgeon: Surgeon(s) and Role: [...] PM EST 03/30/2017 2:20 PM EST Narrative [facility] - 03/30/2017 2:20 PM EST Specimen requisition ordered. ??Separate Pathology report to follow Resulting Agency Comment Spec In Lab Savana Blue MD PATHOLOGY/CYTOLO GY ORDERABLES Performing Organization Address City/State/[facility] [[email or web address]] Co de Phone Number [facility] [place] [address] * Surgical Pathology Report (03/30/2017 1:22 PM EST) Final Diagnosis [id number] ? Location: [facility] The signing pathologist has [...] Delon Lewis Verified: ??04/05/2017 ?Pathologist Performed at: ??-[facility] Dept. of Pathology, [place], [place] DISCUSSION Two separate foci of atypical [...] clip is within slice XII. SECTIONS/PROCESSING: (1) outside sales representative perpendicular slice I, orange-cranial margin; (2) outside sales representative slice VIII; (3) outside sales representative slice IX; (4) outside sales representative slice X; (5) outside sales representative slice XI; (6) outside sales representative slice XII, with cylinder clip; (7) slice XIII, with lesion; (8) slice XIV, with lesion; (9) outside sales representative perpendicular slice XV. (R9) Ischemic Time: 85 minutes ??chinyere Additional sections: (10) remaining slice VIII; (11) slice III; (12) fibrous tissue central slice V; (13-14) bisected slice VII. (R14) chinyere 04/05/2017 9:19 AM EST [facility] BREAST STRUCTURE / Unknown 03/30/2017 1:22 PM EST 03/30/2017 1:22 PM EST Savana Blue MD PATHOLOGY/CYTOLO GY ORDERABLES Performing Organization Address City/State/[facility] [[email or web address]] Co de Phone Number [facility] [place] [address] documented in this encounter Visit Diagnoses Not [...] 5% 100 mL (COMPLETED) 2 g, Intravenous, CHIP DRIER TO O.R., 1 dose, On Arpita 03/30/17 [...] Routine documented in this encounter Care Teams Mechanical Product Design Engineer Relationship Specialty Start Date End Date Christine Fuentes PA [address] [place] [address] PCP - General Family Medicine 01/24/17 10/08/19 documented as of this encounter
--- OUTSIDE RECORDS SUMMARY | 2024-02-06 19:42 | XMS_ITS | Encounter Summary ---
Author Organization [facility] [place] [address] Care Team Providers Care Fur Trimming Machine Operator Name Role Phone Christine Fuentes Primary Care Provider +1- [phone] Encounter Details Date Type Department Care Team (Late st Contact Info) Description 01/22/2018 9:23 AM EST - 01/22/2018 11:59 PM EST Hospital [place] [address] Rhoda Brumfield, CLINICAL APPLICATION SPECIALIST [facility] [place] [address] Breast cancer screening, high risk patient; History [...] breast documented in this encounter Care Teams Fur Trimming Machine Operator Relationship Specialty Start Date End Date Christine Fuentes PA [address] [place] [address] PCP - General Family Medicine 01/24/17 10/08/19 documented as of this encounter
--- OUTSIDE RECORDS SUMMARY | 2024-02-06 19:42 | XMS_ITS | Encounter Summary ---
Author Organization [facility] [place] [address] Care Team Providers Care Hydraulic Tester Name Role Phone Christine Fuentes Primary Care Provider +1- [phone] Reason for Visit * Reason Comments Genetic Evaluation DCIS and fam hx of b reast cancer * Consultation (Urgent) - Closed Specialty Diagnoses / Procedures Referred By Cherie abdul Referred To Contact Hematology and Oncology Diagnoses Hormone receptor positive malignant neoplasm of breast, unspecified laterality Marla Brice MD [facility] [place] [address] [facility] [address] [place] [address] Referral ID Status Reason Start Date Expiration Date V isits Requested Visits Authorized [id number] Closed Consult, Test & Treat 02/02/2018 02/02/2019 1 1 Encounter Details Date Type Department Care Team (Late st Contact Info) Description 02/21/2018 1:00 PM EST Office Visit Hematology [place] [address] Domenica Lama, [facility] HEMATOLOGY/[place] [address] Ductal carcinoma in situ (DCIS) [...] Marx was seen by Lazara Lama MS [facility] in consultation at the request of [...] sample was drawn today and sent to [facility]. ?? The results of the STAT panel [...] (02/21/2018 2:11 PM EST) Research Venipuncture Complete [facility] Blood specimen (specimen) 02/21/2018 2:11 PM EST 02/21/2018 2:18 PM EST Narrative Resulting Agency Comment Spec In Lab Avi Talbot MD CHEMISTRY ORDERABLES [facility] [place] [address] documented in this encounter Visit Diagnoses Diagnosis Ductal carcinoma in situ (DCIS) of breast, unspecified laterality Family history of malignant neoplasm of breast documented in this encounter Care Teams Hydraulic Tester Relationship Specialty Start Date End Date Christine Fuentes PA [address] [place] [address] PCP - General Family Medicine 01/24/17 10/08/19 documented as of this encounter
--- OUTSIDE RECORDS SUMMARY | 2024-02-06 19:42 | XMS_ITS | Encounter Summary ---
Author Organization [facility] [place] [address] Care Team Providers Care Web Analytics Developer Name Role Phone Christine Fuentes Primary Care Provider +1- [phone] Encounter Details Date Type Department Care Team (Latest Contact Info) Description 02/21/2018 1:54 PM EST - 02/21/2018 11:59 PM EST Hospital Encounter Hematology [place] [address] Ductal carcinoma in situ (DCIS) of breast, [...] (02/21/2018 2:11 PM EST) Research Venipuncture Complete [facility] Blood specimen (specimen) 02/21/2018 2:11 PM EST 02/21/2018 2:18 PM EST Narrative Resulting Agency Comment Spec In Lab Avi Talbot MD CHEMISTRY ORDERABLES [facility] [place] [address] documented in this encounter Visit Diagnoses Diagnosis Ductal carcinoma in situ (DCIS) of breast, unspecified laterality Family history of malignant neoplasm of breast documented in this encounter Care Teams Web Analytics Developer Relationship Specialty Start Date End Date Christine Fuentes PA [address] [place] [address] PCP - General Family Medicine 01/24/17 10/08/19 documented as of this encounter
--- OUTSIDE RECORDS SUMMARY | 2024-02-06 19:42 | XMS_ITS | Encounter Summary ---
[place] [address] Care Team Providers Care Biodiesel Plant Manager Name Role Phone Christine Fuentes Primary Care Provider +1- [phone] Reason for Visit * Auth/Cert Specialty Diagnoses / Procedures Referred By Cherie abdul Referred To Contact Diagnoses LEFT BREAST COMPLEX SCLEROSING LESION Procedures PRO EXCISE BREAST LES W XRAY MARKER EXCISION LESION, BREAST W/ PREOP.MARKER (NEEDLE LOC.) (WRVU 6.69) MODIFIER WITH NEEDLE LOC., LESION #1 Referral ID Status Reason Start Date Expiration Date Visits Re quested Visits Authorized [id number] 1 1 Encounter Details Date Type Department Care Team (Late st Contact Info) Description 03/30/2017 9:24 AM EST - 03/30/2017 3:00 PM [facility] Hospital Encounter [place] [address] [facility] [place] [address] Discharge Disposition: Home Social History Tobacco Use [...] closest emergency room or call the hospital steam frame operator at [phone] and ask for physician avionics installer covering for your physician. Questions or problems after 5pm or on a weekend: Call the [facility] steam frame operator at and ask for the physician avionics installer covering for your doctor. * Patient Instructions* [...] 04/13/2017 10:45 AM Rhoda Brumfield APRN [facility] CLIN Call Doctor for: Worsening redness or drainage from your incision lasting longer than 5 days following surgery Any foul-smelling drainage from the incision Fevers greater than 101 degrees F Persistent nausea or vomiting (this may be related to opioid pain medications) Phone number for questions: [phone] before 5 PM weekdays [phone] after 5 PM and on weekends/holidays documented [...] Zepeda MD - 03/30/2017 1:48 PM EST [facility] Operative Note Patient Name: Cecilia Marx : [id number] MR#: [id number] Case Date: 03/30/2017 Surgeon: Surgeon(s) and Role: [...] Operative Note Patient Name: Cecilia Marx : [id number] MR#: [id number] Case Date: 03/30/2017 Surgeon: Surgeon(s) and Role: [...] PM EST 03/30/2017 2:[address] [facility] - 03/30/2017 2:20 PM EST Specimen requisition ordered. ??Separate Pathology report to follow Resulting Agency Comment Spec In Lab Savana Blue MD PATHOLOGY/CYTOLO GY ORDERABLES Performing Organization Address City/State/[facility] Co de Phone Number [facility] [place] [address] * Surgical Pathology Report (03/30/2017 1:22 PM EST) Final Diagnosis [id number] ? Location: [facility] The signing pathologist has [...] Delon Lewis Verified: ??04/05/2017 ?Pathologist Performed at: ??-[facility] Dept. of Pathology, [place], [place] DISCUSSION Two separate foci of atypical [...] within slice XII. SECTIONS/PROCESSING: (1) outside sales account representative perpendicular slice I, orange-cranial margin; (2) outside sales account representative slice VIII; (3) outside sales account representative slice IX; (4) outside sales account representative slice X; (5) outside sales account representative slice XI; (6) outside sales account representative slice XII, with cylinder clip; (7) slice XIII, with lesion; (8) slice XIV, with lesion; (9) outside sales account representative perpendicular slice XV. (R9) Ischemic Time: 85 minutes ??chinyere Additional sections: (10) remaining slice VIII; (11) slice III; (12) fibrous tissue central slice V; (13-14) bisected slice VII. (R14) chinyere 04/05/2017 9:[address] [facility] BREAST STRUCTURE / Unknown 03/30/2017 1:22 PM EST 03/30/2017 1:22 PM EST Savana Blue MD PATHOLOGY/CYTOLO GY ORDERABLES Performing Organization Address City/State/[facility] Co de Phone Number [facility] [place] [address] documented in this encounter Visit Diagnoses Not [...] 5% 100 mL (COMPLETED) 2 g, Intravenous, MEMBER OF TECHNICAL STAFF TO O.R., 1 dose, On Arpita 03/30/17 [...] given at this time.)1345 (Given - Provider: Savaan Blue MD) lidocaine (XYLOCAINE) 10 mg/mL (1 [...] Routine documented in this encounter Care Teams Biodiesel Plant Manager Relationship Specialty Start Date End Date Christine Fuentes PA [address] [place] [address] PCP - General Family Medicine 01/24/17 10/08/19 documented as of this encounter
--- OUTSIDE RECORDS SUMMARY | 2024-02-06 19:42 | XMS_ITS | Encounter Summary ---
Author Organization [facility] [place] [address] Care Team Providers Care Television Station Manager Name Role Phone Christine Fuentes Primary Care Provider +1- [phone] Encounter Details Date Type Department Care Team (Late st Contact Info) Description 03/01/2018 Telephone Hematology [place] [address] Domenica Lama [facility] HEMATOLOGY/[place] [address] Social History Tobacco Use Types Packs/Day Years Used Date Smoking Tobacco: Former Cigarettes Q uit: 10/19/2011 Smokeless Tobacco: Never Sex and Gender Information Value Date Recorded Sex Assigned at Not on file Gender Identity Not on file Sexual Orientation Not on file documented as of this encounter Miscellaneous Notes * Telephone Encounter - Domenica Lama [facility] - 03/01/2018 12:46 PM EST This test result was discussed with the patient by phone. A copy of a letter sent to the patient containing these results is provided below. Please be advised that [place] law requires that allhealth care workers respect the confidentiality of this information and not pass it along to other health care providers, insurance companies, or individuals without the written permission of the patient. The [facility] welcomes any questions about these matters. Our phone number is: [phone]. On February 21, 2018, Cecilia underwent genetic testing for a hereditary predisposition to common hereditary cancers, including breast, gynecologic and gastrointestinal. Following are the results of thistest. Result: [employer] Common Hereditary Cancers Panel showed no mutation was detected. This means that Cecilia does not carry a mutation in the genes detectable by this test. The following genes were evaluated forsequence changes and exonic deletions/duplications: APC, MARTINA, AXIN2, BARD1, BMPR1A, BRCA1, BRCA2, BRIP1, CDH1, CDK4, CDKN2A (p14ARF), CDKN2A (a32KMH0e), CHEK2, CTNNA1, DICER1, EPCAM (EPCAM: Deletion/duplication testing only (NM_[id number]), GREM1 (GREM1: Promoter region deletion/duplication testing only.), KIT, MEN1, MLH1, MSH2, MSH3, MSH6, MUTYH, NBN, NF1, PALB2, PDGFRA, PMS2, POLD1, POLE, PTEN, RAD50, RAD51C, RAD51D, SDHB, SDHC, SDHD, SMAD4, SMARCA4, STK11, TP53, TSC1, TSC2, VHL. The following g saira were evaluated for sequence changes only: HOXB13 (c.251G>A, p.Zla43Qmo variant only), NTHL1(NTHL1: Deletion/duplication analysis is not offered for this gene (NM_002528.6), and SDHA. A variant of uncertain significance in the STK11 gene, specifically c.992G>A (p.Zmh174Exw), was detected. We are enclosing a printed copy of Cecilia's test results. Interpretation: It is unclear at this time whether the STK11 variant of uncertain significance identified in Cecilia is a cancer associated mutation or is a benign change in the gene with no increased cancer risks. [employer] is continually collecting and analyzing their data, [...] screening studies in addition to an annual SITE DAMAGE PREVENTION TECHNICIAN exam at this time. Other cancer screening ?? Periodic colonoscopy screening as recommended by Cecilia's vb net developer. ?? Periodic skin exams documented in this encounter Plan of Treatment Not on file documented as of this encounter Visit Diagnoses Not on filedocumented in this encounter Care Teams Television Station Manager Relationship Specialty Start Date End Date Christine Fuentes PA [address] [place] [address] PCP - General Family Medicine 01/24/17 10/08/19 documented as of this encounter
--- OUTSIDE RECORDS SUMMARY | 2024-02-06 19:42 | XMS_ITS | Encounter Summary ---
Author Organization [facility] [place] [address] Care Team Providers Care Certified Pharmacy Tech Name Role Phone Christine Fuentes Primary Care Provider +1- [phone] Encounter Details Date Type Department Care Team (Late st Contact Info) Description 03/30/2017 8:41 AM EST - 03/30/2017 9:23 AM EST Hospital [place] [address] Marla Brice MD [facility] [address] Breast lesion Discharge Disposition: Home Social History [...] mg documented in this encounter Care Teams Certified Pharmacy Tech Relationship Specialty Start Date End Date Christine Fuentes PA [address] [place] [address] PCP - General Family Medicine 01/24/17 10/08/19 documented as of this encounter
--- OUTSIDE RECORDS SUMMARY | 2024-02-06 19:42 | XMS_ITS | Encounter Summary ---
[place] [address] Care Team Providers Care Cartography/Mapping Technician Name Role Phone Christine Fuentes Primary Care Provider +1- [phone] Encounter Details Date Type Department Care Team (Late st Contact Info) Description 02/22/2018 Telephone [place]ology [place] [address] Kiersten Wilson RN Social History Tobacco Use [...] a 62 y.o. female with newly diagnosed ER/CT+ right breast DCIS ([place]/2018[place] [facility] She has a history of right breast [...] may meet with our mastectomy fitter in [place] or someone closer to her home. Will provide information to her on [facility] Mastectomy [facility] in [place].. documented in this encounter Plan of Treatment Not on file documented as of this encounter Visit Diagnoses Not on filedocumented in this encounter Care Teams Cartography/Mapping Technician Relationship Specialty Start Date End Date Christine Fuentes PA [address] [place] [address] PCP - General Family Medicine 01/24/17 10/08/19 documented as of this encounter
--- OUTSIDE RECORDS SUMMARY | 2024-02-06 19:42 | XMS_ITS | Encounter Summary ---
Author Organization [facility] [place] [address] Care Team Providers Care Public Services Librarian Name Role Phone Christine Fuentes Primary Care Provider +1- [phone] Encounter Details Date Type Department Care Team (Latest Contact Info) Description 01/30/2018 1:03 PM EST - 01/30/2018 11:59 PM EST Hospital [place] [address] Babs Duvall MD [facility] [place] [address] Abnormal mammogram Discharge Disposition: Home Social History [...] core biopsy specimens were obtained using a [employer] Eviva 9g device. Biopsy specimens were radiographed. [...] PM EST 01/30/2018 1:33 PM EST Narrative [facility] - 01/30/2018 1:33 PM EST Specimen requisition ordered. ??Separate Pathology report to follow Babs Duvall MD PATHOLOGY/CYTOLOGY ORDERABLES Performing Organization Address City/State/[facility] Co de Phone Number [facility] [place] [address] * Surgical Pathology Report (01/30/2018 1:25 PM EST) Final Diagnosis [id number] ? Location: 3L The signing pathologist has [...] cancer cells with immunostaining) Stain intensity: Strong NV immunoreactivity: Positive (~50% cancer cells with immunostaining) [...] The assays were performed according to the candle pourer ? 's instructions using Anti-ER (SP1) and Anti-NV (16) antibodies. Electronically signed by: ??Kamryn Gregory DO Verified: ??02/01/2018 ?Pathologist Performed at: ??-[facility] Dept. of Pathology, [place], [place] DISCUSSION The DCIS shows a micropapillary [...] 7 minutes ??ejr 02/01/2018 9:15 AM EST [facility] BREAST STRUCTURE / Unknown 01/30/2018 1:25 PM EST 01/30/2018 1:25 PM EST Babs Duvall MD PATHOLOGY/CYTOLOGY ORDERABLES [facility] [place] [place] [address] documented in this encounter Visit Diagnoses Diagnosis [...] mg documented in this encounter Care Teams Public Services Librarian Relationship Specialty Start Date End Date Christine Fuentes PA [address] [place] [address] PCP - General Family Medicine 01/24/17 10/08/19 documented as of this encounter
--- OUTSIDE RECORDS SUMMARY | 2024-02-06 19:42 | XMS_ITS | Encounter Summary ---
Author Organization [facility] [place] [address] Care Team Providers Care Warranty Administrator Name Role Phone Christine Fuentes Primary Care Provider +1- [phone] Reason for Visit * Auth/Cert Specialty Diagnoses / Procedures Referred By Cherie abdul Referred To Contact Diagnoses LEFT BREAST COMPLEX SCLEROSING LESION Procedures PRO EXCISE BREAST LES W XRAY MARKER EXCISION LESION, BREAST W/ PREOP.MARKER (NEEDLE LOC.) (WRVU 6.69) MODIFIER WITH NEEDLE LOC., LESION #1 Referral ID Status Reason Start Date Expiration Date Visits Re quested Visits Authorized [id number] 1 1 Encounter Details Date Type Department Care Team (Late st Contact Info) Description 03/30/2017 12:44 PM EST Anesthesia Event Outpatient [place] [address] [facility] [place] [address] [facility] [place] [address] Anesthesia Record Procedure Summary Procedure Name Responsible [...] Pham MD - 03/30/2017 2:19 PM EST [facility] Department of Anesthesiology Post-procedure Note Patient: Cecilia Marx Procedure Summary Date Anesthesia Start Anesthesia Stop Room / Location 03/30/17 1244 1408 [facility] OR / [facility] Procedure Diagnosis Surgeon Responsible Provider EXCISION LESION, BREAST W/ PREOP.MARKER (NEEDLE LOC.) (WRVU 6.69) (Left Axilla); MODIFIER WITH NEEDLE LOC., LESION #1 (Left Breast) (LEFT BREAST COMPLEX SCLEROSING LESION) Marla Brice MD Nguyen, Tung T, MD All Anesthesia Providers: Anesthesiologist: Joey Pham MD CD REACTOR OPERATOR HEAD: Chapis Santoro CRNA Most Recent Vitals: 03/30/17 1404 BP: 115/79 Pulse: 89 Resp: 16 Temp: 36.8 ??C (98.2 ??F) SpO2: 93% Pain 0 (03/30/17 1404) Patient Location: PACU/[facility] Level of Consciousness: Awake and Alert [...] with patient and spouse. Plan discussed with CD REACTOR OPERATOR HEAD. PAT Staff Note Attending NOTE Brief HPI: [...] dextrose 5% 100 mL 2 g, Intravenous, SLIVER HANDLER TO O.R., 1 dose, On Arpita 03/30/17 [...] mL/hr documented in this encounter Care Teams Warranty Administrator Relationship Specialty Start Date End Date Christine Fuentes PA [address] [place] [address] PCP - General Family Medicine 01/24/17 10/08/19 documented as of this encounter
--- OUTSIDE RECORDS SUMMARY | 2024-02-06 19:42 | XMS_ITS | Encounter Summary ---
[place] [address] Care Team Providers Care Senior Ux Designer Name Role Phone Christine Fuentes Primary Care Provider +1- [phone] Reason for Visit * Reason Onset Date Comments Follow-up 04/11/2017 Encounter Details Date Type Department Care Team (Late st Contact Info) Description 04/11/2017 Telephone [place] [address] Rhoda Brumfield APRN [facility] [place] [address] Follow-up Social History Tobacco Use Types Packs/Day [...] filedocumented in this encounter Care Teams Senior Ux Designer Relationship Specialty Start Date End Date Christine Fuentes PA [address] [place] [address] PCP - General Family Medicine 01/24/17 10/08/19 documented as of this encounter
--- OUTSIDE RECORDS SUMMARY | 2024-02-06 19:42 | XMS_ITS | Encounter Summary ---
[place] [address] Care Team Providers Care Distributor Sales Consultant Name Role Phone Christine Fuentes Primary Care Provider +1- [phone] Reason for Referral * Diagnostic Test (Routine) - Closed Specialty Diagnoses / Procedures Referred By Contac t Referred To Contact Radiology Diagnoses Ductal carcinoma in situ (DCIS) of right breast Procedures NM Beaufort Node Injection Breast Marla Reed MD [facility] [place] [address] [place] [address] Referral ID Status Reason Start Date Expiration Date V isits Requested Visits Authorized [id number] Closed Specialty Service Requested 02/23/2018 02/23/2019 1 1 Reason for Visit * Diagnostic Test (Routine) - Closed Specialty Diagnoses / Procedures Referred By Contac t Referred To Contact Radiology Diagnoses Ductal carcinoma in situ (DCIS) of right breast Procedures NM Beaufort Node Injection Breast Marla Reed MD [facility] [place] [address] [place] [address] Referral ID Status Reason Start Date Expiration Date V isits Requested Visits Authorized [id number] Closed Specialty Service Requested 02/23/2018 02/23/2019 1 1 Encounter Details Date Type Department Care Team (Late st Contact Info) Description 03/15/2018 12:28 PM EST - 03/15/2018 1:10 PM [facility] Hospital Encounter [place] [address] Marla Brice MD [facility] [place] [address] Ductal carcinoma in situ (DCIS) of right [...] documented in this encounter Results * NM Beaufort Node Injection Breast wo Imaging (03/15/2018 1:11 PM EST) Anatomical Region Laterality Modality Nuclear Medicine Impressions 03/15/2018 1:50 PM EST Beaufort node injections performed without complication. Thank you for letting us participate in the care of this patient. For questions regarding this report, please contact the number below. ? Electronically signed by: Aleksandar Ibanez [facility] ([phone]), at 03/15/2018 1:50 PM Narrative 03/15/2018 1:50 [...] patient left the department ingood condition. IMPRESSION Beaufort node injections performed without complication. Thank you [...] mCi documented in this encounter Care Teams Distributor Sales Consultant Relationship Specialty Start Date End Date Christine Fuentes PA [address] [place] [address] PCP - General Family Medicine 01/24/17 10/08/19 documented as of this encounter
--- OUTSIDE RECORDS SUMMARY | 2024-02-06 19:42 | XMS_ITS | Encounter Summary ---
Author Organization [facility] [place] [address] Care Team Providers Care Machining Department Supervisor Name Role Phone Christine Fuentes Primary Care Provider +1- [phone] Encounter Details Date Type Department Care Team (Late st Contact Info) Description 02/21/2018 10:45 AM EST Office Visit Hematology [place] [address] Marla Brice MD [facility] [place] [address] Kiersten Wilson RN Ductal carcinoma in situ [...] handout created by physical therapists at [facility]. She understands she may begin [...] Clinic Nurses was given and the Doctor independent agent music education system explained. 10. We discussed the recommended [...] s/p partial mastectomy and RT in 2009 ([facility]). She was followed by surgeon for [...] Stereotactic Biopsy Right 01/30/2018 Babs Duvall MD [facility] RAD MAMMOGRAPHY ??? PRO EXCISE BREAST LES W XRAY MARKER Left 03/30/2017 EXCISION LESION, BREAST W/ PREOP.MARKER (NEEDLE LOC.) (WRVU 6.69) performed by Marla Brice MD at [facility] Current Outpatient Medications: ??? hydrocortisone 2.5 [...] breast documented in this encounter Care Teams Machining Department Supervisor Relationship Specialty Start Date End Date Christine Fuentes PA [address] [place] [address] PCP - General Family Medicine 01/24/17 10/08/19 documented as of this encounter
--- OUTSIDE RECORDS SUMMARY | 2024-02-06 19:42 | XMS_ITS | Encounter Summary ---
Author Organization [facility] [place] [address] Care Team Providers Care Lubrication Technician Name Role Phone Christine Fuentes Primary Care Provider +1- [phone] Encounter Details Date Type Department Care Team (Late st Contact Info) Description 03/18/2018 Telephone General [place] [address] Nick Hodges MD [facility] [place] [address] Social History Tobacco Use Types Packs/Day Years [...] on filedocumented in this encounter Care Teams Lubrication Technician Relationship Specialty Start Date End Date Christine Fuentes PA [address] [place] [address] PCP - General Family Medicine 01/24/17 10/08/19 documented as of this encounter
--- OUTSIDE RECORDS SUMMARY | 2024-02-06 19:42 | XMS_ITS | Encounter Summary ---
Author Organization [facility] Address [facility] [place] [address] Care Team Providers Care Repair Technician Name Role Phone Christine Fuentes Primary Care Provider +1- [phone] Encounter Details Date Type Department Care Team (Latest Contact Info) Description 01/30/2018 12:39 PM EST - 01/30/2018 1:02 PM EST Hospital En[place] [address] Anita Valentine MD [facility] [place] [address] Abnormal finding on breast imaging Discharge Disposition: [...] breast documented in this encounter Care Teams Repair Technician Relationship Specialty Start Date End Date Christine Fuentes PA [address] [place] [address] PCP - General Family Medicine 01/24/17 10/08/19 documented as of this encounter
--- OUTSIDE RECORDS SUMMARY | 2024-02-06 19:42 | XMS_ITS | Encounter Summary ---
Author Organization [facility] [place] [address] Care Team Providers Care Foot Setter Name Role Phone Christine Fuentes Primary Care Provider +1- [phone] Reason for Visit * Auth/Cert Specialty Diagnoses [...] Expiration Date Visits Re quested Visits Authorized [id number] 1 1 Encounter Details Date Type Department Care Team (Late st Contact Info) Description 03/15/2018 6:13 PM EST Anesthesia Event [place] [address] Zhou De Jesus MD [facility] [place] [address] Natty Henriquez MD [facility] [place] [address] Anesthesia Record Procedure Summary Procedure Name Responsible [...] Removal Time: 214203/15/18 1829 by Francisca Olmos, WARPMAN 03/15/18 2143 by Sanjuana Loja CRNA Incision 03/15/18; 184; sarah st; 10/18/21 (LDA cleanup utility RA#[id number]); 1715 (LDA cleanup utility RA#[id number]) 03/15/18 1841 by Lilliam Gill RN 10/18/21 171 by Glen Muro (RETIRED) Peripheral IV Line - Single Lumen 03/15/18; 185; metacarpal vein (top of hand), left; lxbt-gul-gdybwu catheter system; 20 gauge; 03/16/18; 1121 03/15/18 185 by Francisca Olmos, WARPMAN 03/16/18 112 by Teresa Johnson RN documented [...] MD - 03/15/2018 11:23 PM EST [facility] Department of Anesthesiology Post-procedure Note Patient: Cecilia Marx Procedure Summary Date: 03/15/18 Room / Location: [address] MAIN OR Anesthesia Start: 1812 Anesthesia [...] David Weston MD; Zhou De Jesus MD WARPMAN: Sanjuana Loja CRNA Student Nurse General Internist: Francisca Olmos Vitals Value Taken Time BP 129/87 03/15/2018 11:15 PM Temp 36.8 ??C (98.2 ??F) 03/15/2018 11:15 PM Pulse 95 03/15/2018 11:15 PM Resp 16 03/15/2018 11:15 PM SpO2 97 % 03/15/2018 11:17 PM Pain Level 5 03/15/2018 10:52 PM Vitals shown include unvalidated device data. Patient Location: PACU/[facility] Level of Consciousness: Awake and Alert Pain [...] and mask, cap, sterile gloves, hand hygeine W-tsltf-svqvc 21 10 cm Ultrasound Guided: Live and [...] Single-shot BUpivacaine 0.25%, 40 mL no complications Resident/WARPMAN:: Spike Miranda DO Attending Physician:: Liza, Zhou [...] Stereotactic Biopsy Right 01/30/2018 Babs Duvall MD [facility] RAD MAMMOGRAPHY ??? PRO EXCISE BREAST LES W XRAY MARKER Left 03/30/2017 EXCISION LESION, BREAST W/ PREOP.MARKER (NEEDLE LOC.) (WRVU 6.69) performed by Marla Brice MD at [facility] Social History Tobacco Use ??? Smoking [...] risks discussed with patient. Plan discussed with WARPMAN. PAT Staff Note documented in this encounter [...] and mask, cap, sterile gloves, hand hygeine M-olkju-xigmb 21 10 cm Ultrasound Guided: ??Live and [...] BUpivacaine 0.25%, 40 mL no complications ?? Resident/WARPMAN:: ??Spike Miranda, Attending Physician:: ??Zhou De Jesus MD 20cc 0.25% infiltrated each side. 10cc for PEC 1 block and 10cc for PEC 2 block. Zhou De Jesus MD VAT WASHER [facility] documented in this encounter Visit Diagnoses [...] patch documented in this encounter Care Teams Foot Setter Relationship Specialty Start Date End Date Christine Fuentes PA [address] [place] [address] PCP - General Family Medicine 01/24/17 10/08/19 documented as of this encounter
--- OUTSIDE RECORDS SUMMARY | 2024-02-06 19:42 | XMS_ITS | Encounter Summary ---
Author Organization [facility] Address [facility] [place] [address] Care Team Providers Care House Designer Name Role Phone Christine Fuentes Primary Care Provider +1- [phone] Encounter Details Date Type Department Care Team (Late st Contact Info) Description 01/30/2018 Notes [place] [address] Evans Almanzar MD [facility] [place] [address] Social History Tobacco Use Types Packs/Day Years [...] on filedocumented in this encounter Care Teams House Designer Relationship Specialty Start Date End Date Christine Fuentes PA [address] [place] [address] PCP - General Family Medicine 01/24/17 10/08/19 documented as of this encounter
--- OUTSIDE RECORDS SUMMARY | 2024-02-06 19:42 | XMS_ITS | Encounter Summary ---
Author Organization [facility] Address [facility] [place] [address] Care Team Providers Care Supervisor Finish End Name Role Phone Christine Fuentes Primary Care Provider +1- [phone] Encounter Details Date Type Department Care Team (Late st Contact Info) Description 03/10/2017 Orders [place] [address] Marla Brice MD [facility] [place] [address] Breast lesion Social History Tobacco Use Types [...] no close margins. MD NIGEL Ryder MAMMO LAUERN MIKE * Mammo Needle Localization Left (03/30/2017 [...] disorder documented in this encounter Care Teams Supervisor Finish End Relationship Specialty Start Date End Date Christine Fuentes PA [address] [place] [address] PCP - General Family Medicine 01/24/17 10/08/19 documented as of this encounter
--- OUTSIDE RECORDS SUMMARY | 2024-02-06 19:42 | XMS_ITS | Encounter Summary ---
Author Organization [facility] [place] [address] Care Team Providers Care Plumbing Manager Name Role Phone Christine Fuentes Primary Care Provider +1- [phone] Encounter Details Date Type Department Care Team (Late st Contact Info) Description 02/21/2018 Notes [place] [address] Olga Guan MSW Social History Tobacco Use Types Packs/Day Years Used Date Smoking Tobacco: Former Cigarettes Q uit: 10/19/2011 Smokeless Tobacco: Never Sex and Gender Information Value Date Recorded Sex Assigned at Not on file Gender Identity Not on file Sexual Orientation Not on file documented as of this encounter Progress Notes * Olga Guan MSW - 02/21/2018 2:32 PM EST [facility] met briefly with pt and introduced myself and explained my role in the breast program. Pt had an appt with the genetic counseling program and was not available to meet. I gave pt my contact information and encouraged her to call with any questions or concerns. P- [facility] will Continue to provide support and resources. documented in this encounter Plan of Treatment Not on file documented as of this encounter Visit Diagnoses Not on filedocumented in this encounter Care Teams Plumbing Manager Relationship Specialty Start Date End Date Christine Fuentes PA [address] [place] [address] PCP - General Family Medicine 01/24/17 10/08/19 documented as of this encounter
--- OUTSIDE RECORDS SUMMARY | 2024-02-06 19:42 | XMS_ITS | Encounter Summary ---
Author Organization [facility] [place] [address] Care Team Providers Care Aircraft Engine Assembler Name Role Phone Christine Fuentes Primary Care Provider +1- [phone] Encounter Details Date Type Department Care Team (Late st Contact Info) Description 02/27/2018 Telephone Hematology [place] [address] [facility]/[place] [address] Social History Tobacco Use Types Packs/Day Years Used Date Smoking Tobacco: Former Cigarettes Q uit: 10/19/2011 Smokeless Tobacco: Never Sex and Gender Information Value Date Recorded Sex Assigned at Not on file Gender Identity Not on file Sexual Orientation Not on file documented as of this encounter Miscellaneous Notes * Telephone Encounter - Domenica Lama [facility] - 02/27/2018 12:47 PM EST Informed Cecilia of her negative or normal STAT Breast Cancer Panel (MARTINA, BRCA1, BRCA2, CDH1, CHEK2, PALB2, PTEN, STK11, TP53) genetic test results. STK11 c.992G>A (p.[id number]) variant of uncertainsignificance was identified. It is unclear at this time whether the STK11 variant of uncertain significance identified is a cancer associated mutation or is a benign change in the gene with no increased cancer risks. [facility] is continually collecting and analyzing their data, [...] on filedocumented in this encounter Care Teams Aircraft Engine Assembler Relationship Specialty Start Date End Date Christine Fuentes PA [address] [place] [address] PCP - General Family Medicine 01/24/17 10/08/19 documented as of this encounter
--- OUTSIDE RECORDS SUMMARY | 2024-02-06 19:42 | XMS_ITS | Encounter Summary ---
Author Organization [facility] [place] [address] Care Team Providers Care Maintenance Equipment Operator Name Role Phone Christine Fuentes Primary Care Provider +1- [phone] Reason for Visit * Consultation (Routine) - Closed Specialty Diagnoses / Procedures Referred By Cherie abdul Referred To Contact Hematology and Oncology Diagnoses Breast cancer screening, high risk patient History of breast cancer Rhoda Brumfield, [facility] [place] [address] Stj Hem Onc Office [address] [place] [phone] Referral ID Status Reason Start Date Expiration Date V isits Requested Visits Authorized [id number] Closed Consult, Test & Treat 04/13/2017 04/13/2018 1 1 Encounter Details Date Type Department Care Team (Late st Contact Info) Description 04/20/2017 3:00 PM EST Office Visit Hematology/Oncology at [address] [address] Amaury Stack MD [address] [place] [address] Atypical ductal hyperplasia of left breast [...] [ ] Not satisfied SOCIAL ASSESSMENT: See [facility] social assessment information entered. Support Systems: transportation [...] 6.69) performed by Marla Brice MD at [facility] Allergies Allergen Reactions ??? [...] alter care of Patient. Yes. ?? COMPARISONS: [phone] ?? FINDINGS: The breasts of scattered fiber [...] Alvarez MD Verified: ??04/05/2017 ?Pathologist Performed at: ??-[facility] Dept. of Pathology, [place], [place] DISCUSSION Two separate foci of atypical [...] breast documented in this encounter Care Teams Maintenance Equipment Operator Relationship Specialty Start Date End Date Christine Fuentes PA [address] [place] [address] PCP - General Family Medicine 01/24/17 10/08/19 documented as of this encounter
--- OUTSIDE RECORDS SUMMARY | 2024-02-06 19:43 | XMS_ITS | Encounter Summary ---
Author Organization [facility] [place] [address] Care Team Providers Care Grinding And Spraying Supervisor Name Role Phone Spike Sierra MD Primary Care Provider Encounter Details Date Type Department Care Team (Latest Contact Info) Description 11/28/2011 - 11/28/2011 11:59 PM EDT Hospital Encounter Radiology Library at [facility] [place] [address] Spike Nicolas MD [facility] DR [place] [address] Screening breast examination Discharge Disposition: Home Social [...] Only Mammo (11/28/2011 12:00 AM EDT) Narrative [facility] - 01/11/2017 4:30 PM EST This exam is for storage only and is auto-finalizing. Spike Nicolas MD G FILM LIBRARY ORD ERABLES [place], [place] documented in this encounter Visit Diagnoses Diagnosis Screening breast examination Other screening breast examination documented in this encounter Care Teams Grinding And Spraying Supervisor Relationship Specialty Start Date End Date Spike Sierra MD [address] [place] [address] PCP - General 01/12/10 01/23/17 documented as of this encounter
--- OUTSIDE RECORDS SUMMARY | 2024-02-06 19:43 | XMS_ITS | Encounter Summary ---
Author Organization [facility] [place] [address] Care Team Providers Care Psychiatric Assistant Name Role Phone Spike Sierra MD Primary Care Provider [phone] Reason for Visit * Reason Comments Radiation Follow-up Encounter Details Date Type Department Care Team (Late st Contact Info) Description 06/13/2011 3:30 PM EDT Follow-Up Radiation Oncology at [address] [phone] Ema Fair MD [facility] [place] [address] Breast CA (Primary Dx) Discharge Disposition: Home [...] site documented in this encounter Care Teams Psychiatric Assistant Relationship Specialty Start Date End Date Spike Sierra MD [address] [place] [address] PCP - General 01/12/10 01/23/17 documented as of this encounter
--- OUTSIDE RECORDS SUMMARY | 2024-02-06 19:43 | XMS_ITS | Encounter Summary ---
Author Organization [facility] Address [facility] [place] [address] Care Team Providers Care Pen And Pencil Repairer Name Role Phone Spike Sierra MD Primary Care Provider Encounter Details Date Type Department Care Team (Latest Contact Info) Description 01/06/2017 - 01/06/2017 12:04 AM [facility] Hospital Encounter Radiology Library at [facility] [place] [address] Spike Nicolas MD [facility] [place] [address] Discharge Disposition: Home Social History Tobacco Use [...] Only Mammo (01/06/2017 12:00 AM EST) Narrative [facility] - 01/10/2017 4:30 PM EST This exam is for storage only and is auto-finalizing. Spike Nicolas MD IMG FILM LIBRARY ORD ERABLES Performing Organization Address City/State/[facility] Co de Phone Number [place], [place] documented in this encounter Visit Diagnoses Not on filedocumented in this encounter Care Teams Pen And Pencil Repairer Relationship Specialty Start Date End Date Spike Sierra MD [address] [place] [address] PCP - General 01/12/10 01/23/17 documented as of this encounter
--- OUTSIDE RECORDS SUMMARY | 2024-02-06 19:43 | XMS_ITS | Encounter Summary ---
Author Organization [facility] [place] [address] Care Team Providers Care Drafter Landscape Name Role Phone Spike Sierra MD Primary Care Provider [phone] Encounter Details Date Type Department Care Team (Late st Contact Info) Description 04/08/2014 1:00 PM EST Ancillary Appointment Hematology Oncology at [address] [phone] [facility] [place] [address] Social History Tobacco Use Types Packs/Day Years Used Date Smoking Tobacco: Former Cigarettes Q uit: 10/19/2011 Sex and Gender Information Value Date Recorded Sex Assigned at Not on file Gender Identity Not on file Sexual Orientation Not on file documented as of this encounter Progress Notes * Denzel Payne RD - 04/08/2014 1:10 PM EST [facility] Dietitian Follow Up Assessment Seen By: Elida Payne, MS, RD, QUALITY CONTROL MICROBIOLOGIST, LD Reason for visit: Wanting to lose [...] needs: 1.5 - 2 L Food Intake: [place] she fell off the wagon in February [...] calories for about the first , likes [employer] and [employer] and the meal suggestions, but didn't feel [...] 3-6 mos. The [facility] series from [facility] September 2008 showed a lower risk of [...] We reviewed workout dvds, websites with videos ([employer]) -- Holding herself accountable. 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 Marx in one week (s) to re-evaluate. documented in this encounter Plan of Treatment Not on file documented as of this encounter Visit Diagnoses Not on filedocumented in this encounter Care Teams Drafter Landscape Relationship Specialty Start Date End Date Spike Sierra MD [address] [place] [address] PCP - General 01/12/10 01/23/17 documented as of this encounter
--- OUTSIDE RECORDS SUMMARY | 2024-02-06 19:43 | XMS_ITS | Encounter Summary ---
Author Organization [facility] [place] [address] Care Team Providers Care Mangle Tender Cloth Name Role Phone Unavailable Primary Care Provider Unavailabl e Encounter Details Date Type Department Care Team (Latest Contact Info) Description 12/03/2009 - 12/03/2009 11:59 PM EDT Hospital Encounter Radiology Library [place] [facility] [address] Spike Nicolas MD [facility] [address] [place] [address] Discharge Disposition: Home Social History Tobacco Use [...] Nicolas MD G FILM LIBRARY ORD ERABLES [facility] [place] documented in this encounter Visit Diagnoses Not on filedocumented in this encounter
--- OUTSIDE RECORDS SUMMARY | 2024-02-06 19:43 | XMS_ITS | Encounter Summary ---
Author Organization [facility] [place] [address] Care Team Providers Care Director Sales Name Role Phone Spike Sierra MD Primary Care Provider Encounter Details Date Type Department Care Team (Late st Contact Info) Description 04/14/2010 7:15 AM EST Follow-Up Radiation Oncology at [address] [phone] Ema Fair MD [facility] [place] [address] Social History Tobacco Use Types Packs/Day Years Used Date Smoking Tobacco: Never Assessed Sex and Gender Information Value Date Recorded Sex Assigned at Not on file Gender Identity Not on file Sexual Orientation Not on file documented as of this encounter Plan of Treatment Not on file documented as of this encounter Visit Diagnoses Not on filedocumented in this encounter Care Teams Director Sales Relationship Specialty Start Date End Date Spike Sierra MD [address] [place], [place] [address] PCP - General 01/12/10 01/23/17 documented as of this encounter
--- OUTSIDE RECORDS SUMMARY | 2024-02-06 19:43 | XMS_ITS | Encounter Summary ---
Author Organization [facility] [place] [address] Care Team Providers Care Sas Developer Analyst Name Role Phone Spike Sierra MD Primary Care Provider Encounter Details Date Type Department Care Team (Late st Contact Info) Description 03/31/2010 11:00 AM EST Follow-[place] [address] Ema Fair MD [facility] [place] [address] Social History Tobacco Use Types Packs/Day Years Used Date Smoking Tobacco: Never Assessed Sex and Gender Information Value Date Recorded Sex Assigned at Not on file Gender Identity Not on file Sexual Orientation Not on file documented as of this encounter Plan of Treatment Not on file documented as of this encounter Visit Diagnoses Not on filedocumented in this encounter Care Teams Sas Developer Analyst Relationship Specialty Start Date End Date Spike Sierra MD [address] [place] [address] PCP - General 01/12/10 01/23/17 documented as of this encounter
--- OUTSIDE RECORDS SUMMARY | 2024-02-06 19:43 | XMS_ITS | Encounter Summary ---
Author Organization [facility] [place] [address] Care Team Providers Care Flatcar Whacker Name Role Phone Spike Sierra MD Primary Care Provider Encounter Details Date Type Department Care Team (Late st Contact Info) Description 04/06/2010 1:30 PM EST Follow-Up Radiation Oncology at [address] [phone] Ema Fair MD [facility] [place] [address] Social History Tobacco Use Types Packs/Day Years Used Date Smoking Tobacco: Never Assessed Sex and Gender Information Value Date Recorded Sex Assigned at Not on file Gender Identity Not on file Sexual Orientation Not on file documented as of this encounter Plan of Treatment Not on file documented as of this encounter Visit Diagnoses Not on filedocumented in this encounter Care Teams Flatcar Whacker Relationship Specialty Start Date End Date Spike Sierra MD [address] [place], [place] [address] PCP - General 01/12/10 01/23/17 documented as of this encounter
--- OUTSIDE RECORDS SUMMARY | 2024-02-06 19:43 | XMS_ITS | Encounter Summary ---
Author Organization [facility] Address [facility] [place] [address] Care Team Providers Care Briquette Operator Name Role Phone Spike Sierra MD Primary Care Provider [phone] Encounter Details Date Type Department Care Team (Latest Contact Info) Description 01/06/2017 12:05 AM EST - 01/06/2017 11:59 PM EST Hospital Encounter Radiology Library at [facility] [place] [address] Spike Nicolas MD [facility] [place] [address] Discharge Disposition: Home Social History Tobacco Use [...] Only Mammo (01/06/2017 12:05 AM EST) Narrative [facility] - 01/10/2017 4:31 PM EST This exam is for storage only and is auto-finalizing. Spike Nicolas MD G FILM LIBRARY ORD ERABLES [place], [place] documented in this encounter Visit Diagnoses Not on filedocumented in this encounter Care Teams Briquette Operator Relationship Specialty Start Date End Date Spike Sierra MD [address] [place] [address] PCP - General 01/12/10 01/23/17 documented as of this encounter
--- OUTSIDE RECORDS SUMMARY | 2024-02-06 19:43 | XMS_ITS | Encounter Summary ---
[place] [address] Care Team Providers Care Marketing Communication Manager Name Role Phone Spike Sierra MD Primary Care Provider Encounter Details Date Type Department Care Team (Late st Contact Info) Description 03/09/2010 9:00 AM EST Initial consult Hematology Oncology at [address] [phone] Social History Tobacco Use Types Packs/Day Years Used Date Smoking Tobacco: Never Assessed Sex and Gender Information Value Date Recorded Sex Assigned at Not on file Gender Identity Not on file Sexual Orientation Not on file documented as of this encounter Plan of Treatment Not on file documented as of this encounter Visit Diagnoses Not on filedocumented in this encounter Care Teams Marketing Communication Manager Relationship Specialty Start Date End Date Spike Sierra MD [address] [place] [address] PCP - General 01/12/10 01/23/17 documented as of this encounter
--- OUTSIDE RECORDS SUMMARY | 2024-02-06 19:43 | XMS_ITS | Encounter Summary ---
Author Organization [facility] Address [facility] [place] [address] Care Team Providers Care Hogshead Salvage Name Role Phone Spike Sierra MD Primary Care Provider Encounter Details Date Type Department Care Team (Latest Contact Info) Description 01/20/2017 4:53 PM EST - 01/20/2017 11:59 PM EST Hospital Encounter Radiology Library at [facility] [place] [address] Christien Fuentes PA [address] [place] [address] Abnormal finding on breast imaging Discharge Disposition: [...] ultrasound Please note: The interpretation of the [facility] Breast Imaging Radiologist subspecialist may differ from the original radiologists interpretation. This is usually not due to a deficiency of the original interpreting radiologist, rather due to the greater skill level afforded by sub-specialization in the field and/or reasonable variations in interpretations. If you have a concern regarding the [facility] interpretation you may contact the [facility] Breast Supercalender Operator Helper Office at . Narrative 01/23/2017 5:03 PM [...] alter care of Patient. Yes. ?? COMPARISONS: [id number] FINDINGS: The breasts of scattered fiber glandular [...] alter the care of thispatient. STUDIES FROM: [facility] DATES: 01/06/2017 CLINICAL HISTORY: ABNORMAL IMAGIN-LEFT BREAST, CAT 3; ? BX; ? MOREIMAGING; What Modality is the exam? Mammography; Body Part (please add comments asnecessary): LEFT BREAST; I believe a reinterpretation of this exam may alter care of Patient. Yes. COMPARISONS: [phone] FINDINGS: The breasts of scattered fiber glandular [...] ultrasound Please note: The interpretation of the [facility] BreastImaging Radiologist subspecialist may differ from the original radiologists interpretation. This is usually not due to a deficiency of the original interpreting radiologist, rather due to the greater skill level affordedby sub-specialization in the field and/or reasonable variations ininterpretations. If you have a concern regarding the -H interpretation you may contact the[facility] Breast Supercalender Operator Helper Office at . Christine COTO IMG OUTSIDE INTERP RETATION ORDERABLES documented in this encounter Visit Diagnoses Diagnosis Abnormal finding on breast imaging Other (abnormal) findings on radiological examination of breast documented in this encounter Care Teams Hogshead Salvage Relationship Specialty Start Date End Date Spike Sierra MD [address] [place] [address] PCP - General 01/12/10 01/23/17 documented as of this encounter
--- OUTSIDE RECORDS SUMMARY | 2024-02-06 19:43 | XMS_ITS | Encounter Summary ---
Author Organization [facility] Address [facility] [place] [address] Care Team Providers Care Auditor Internal Name Role Phone Spike Sierra MD Primary Care Provider Encounter Details Date Type Department Care Team (Latest Contact Info) Description 12/31/2014 12:05 AM EST - 12/31/2014 11:59 PM EST Hospital Encounter Radiology Library at [facility] [address] Spike Nicolas MD [facility] [place] [address] Screening breast examination Discharge Disposition: Home Social [...] Only Mammo (12/31/2014 12:05 AM EST) Narrative [facility] - 01/11/2017 4:48 PM EST This exam is for storage only and is auto-finalizing. Spike Nicolas MD IMG FILM LIBRARY ORD ERABLES [place], [place] documented in this encounter Visit Diagnoses Diagnosis Screening breast examination Other screening breast examination documented in this encounter Care Teams Auditor Internal Relationship Specialty Start Date End Date Spike Sierra MD [address] [place] [address] PCP - General 01/12/10 01/23/17 documented as of this encounter
--- OUTSIDE RECORDS SUMMARY | 2024-02-06 19:43 | XMS_ITS | Encounter Summary ---
Author Organization [facility] Address [facility] [place] [address] Care Team Providers Care Edge Trimmer Name Role Phone Spike Sierra MD Primary Care Provider [phone] Reason for Visit * Reason Comments Radiation Follow-up Encounter Details Date Type Department Care Team (Late st Contact Info) Description 12/13/2010 1:30 PM EDT Follow-Up Radiation Oncology at [address] [phone] Ema Fair MD [facility] [place] [address] Breast ca (Primary Dx) Discharge Disposition: Home [...] site documented in this encounter Care Teams Edge Trimmer Relationship Specialty Start Date End Date Spike Sierra MD [address] [place] [address] PCP - General 01/12/10 01/23/17 documented as of this encounter
--- OUTSIDE RECORDS SUMMARY | 2024-02-06 19:43 | XMS_ITS | Patient Health Record ---
Author Organization [facility] Address [address] [place] [address] Care Team Providers Care Organic Extractions Technician Name Role Phone Christine Fuentes Primary [...] Notes Problem Herniation of rectum into vagina (611356315) Rectocele (N81.6) Active confirmed Problem Postmenopausal atrophic vaginitis (10084725) Postmenopausal atrophic vaginitis (N95.2) Active confirmed Plan Of Treatment No Information Insurance Providers Payer Name Payer Address Payer Phone Subscriber Number Group Number Insured Name Patient Relationship to Insured Coverage Start Date Coverage End Date [place] [address] [place] [phone] [id number] Cecilia Marx Self - patient is [...]
--- OUTSIDE RECORDS SUMMARY | 2024-02-06 19:43 | XMS_ITS | Encounter Summary ---
[place] [address] Care Team Providers Care Network Operations Project Manager Name Role Phone Unavailable Primary Care Provider Unavailabl e Encounter Details Date Type Department Care Team (Late st Contact Info) Description 01/06/2010 10:00 AM EST Procedure visit ZLE[place] [address] Social History Tobacco Use Types Packs/Day Years [...]
--- OUTSIDE RECORDS SUMMARY | 2024-02-06 19:43 | XMS_ITS | Encounter Summary ---
[place] [address] Care Team Providers Care Edge Sawyer Name Role Phone Spike Sierra MD Primary Care Provider Encounter Details Date Type Department Care Team (Late st Contact Info) Description 01/02/2014 Telephone [place] [address] Yolette Waldrop APRN [address] [place] [address] DR RADIATION ONCOLOGY [place], [place] [phone] Social History Tobacco Use Types Packs/Day Years [...] 35-45. We will increase her vitamin D3 [id number] IU a day. documented in this encounter Plan of Treatment Not on file documented as of this encounter Visit Diagnoses Not on filedocumented in this encounter Care Teams Edge Sawyer Relationship Specialty Start Date End Date Spike Seirra MD [address] [place] [address] PCP - General 01/12/10 01/23/17 documented as of this encounter
--- OUTSIDE RECORDS SUMMARY | 2024-02-06 19:43 | XMS_ITS | Encounter Summary ---
Author Organization [facility] Address [facility] [place] [address] Care Team Providers Care Residential Counselor Name Role Phone Spike Sierra MD Primary Care Provider Encounter Details Date Type Department Care Team (Latest Contact Info) Description 12/24/2013 - 12/24/2013 11:59 PM [facility] Hospital Encounter Radiology Library at [facility] [place] [address] Spike Nicolas MD [facility] [place] [address] Screening breast examination Discharge Disposition: Home Social [...] Nicolas MD G FILM LIBRARY ORD ERABLES [place], [place] documented in this encounter Visit Diagnoses Diagnosis Screening breast examination Other screening breast examination documented in this encounter Care Teams Residential Counselor Relationship Specialty Start Date End Date Spike Sierra MD [address] [place] [address] PCP - General 01/12/10 01/23/17 documented as of this encounter
--- OUTSIDE RECORDS SUMMARY | 2024-02-06 19:43 | XMS_ITS | Encounter Summary ---
Author Organization [facility] Address [facility] [place] [address] Care Team Providers Care Partition Assembly Machine Operator Name Role Phone Spike Sierra MD Primary Care Provider Encounter Details Date Type Department Care Team (Latest Contact Info) Description 12/04/2012 - 12/04/2012 11:59 PM EDT Hospital Encounter Radiology Library at [facility] [place] [address] Spike Nicolas MD [facility] DIAGNOSTER[place] [address] Screening breast examination Discharge Disposition: Home Social [...] Only Mammo (12/04/2012 12:00 AM EDT) Narrative [facility] - 01/11/2017 4:43 PM EST This exam is for storage only and is auto-finalizing. Spike Nicolas MD IMG FILM LIBRARY ORD ERABLES [place], [place] documented in this encounter Visit Diagnoses Diagnosis Screening breast examination Other screening breast examination documented in this encounter Care Teams Partition Assembly Machine Operator Relationship Specialty Start Date End Date Spike Sierra MD [address] [place] [address] PCP - General 01/12/10 01/23/17 documented as of this encounter
--- OUTSIDE RECORDS SUMMARY | 2024-02-06 19:43 | XMS_ITS | Encounter Summary ---
Author Organization [facility] [place] [address] Care Team Providers Care Cafe Or Restaurant Manager Name Role Phone Spike Sierra MD Primary Care Provider Encounter Details Date Type Department Care Team (Latest Contact Info) Description 11/08/2010 - 11/08/2010 11:59 PM EDT Hospital Encounter Radiology Library at [facility] [place] [address] Spike Nicolas MD [facility] [place] [address] Pain Discharge Disposition: Home Social History Tobacco [...] Only Mammo (11/08/2010 12:00 AM EDT) Narrative [facility] - 01/11/2017 4:26 PM EST This exam is for storage only and is auto-finalizing. Spike Nicolas MD IMG FILM LIBRARY ORD ERABLES Performing Organization Address City/State/[facility] Co de Phone Number [place], [place] documented in this encounter Visit Diagnoses Diagnosis Pain Generalized pain documented in this encounter Care Teams Cafe Or Restaurant Manager Relationship Specialty Start Date End Date Spike Sierra MD [address] [place] [address] PCP - General 01/12/10 01/23/17 documented as of this encounter
--- OUTSIDE RECORDS SUMMARY | 2024-02-06 19:43 | XMS_ITS | Encounter Summary ---
Author Organization [facility] [place] [address] Care Team Providers Care Stubber Name Role Phone Spike Sierra MD Primary Care Provider Reason for Visit * Reason Comments Breast Cancer f/u Encounter Details Date Type Department Care Team (Late st Contact Info) Description 06/14/2010 11:00 AM EDT Follow-Up Radiation Oncology at [address] [phone] Ema Fair MD [facility] [place] [address] DCIS (ductal carcinoma in situ) of breast [...] in this encounter Progress Notes * Nathaniel, Instrument Lens Grinder - 08/24/2010 7:39 PM EDT * Ema [...] breast documented in this encounter Care Teams Stubber Relationship Specialty Start Date End Date Spike Sierra MD [address] [place] [address] PCP - General 01/12/10 01/23/17 documented as of this encounter
--- OUTSIDE RECORDS SUMMARY | 2024-02-06 19:43 | XMS_ITS | Encounter Summary ---
Author Organization [facility] Address [facility] [place] [address] Care Team Providers Care Pickle Sorter Name Role Phone Spike Sierra MD Primary Care Provider [phone] Encounter Details Date Type Department Care Team (Latest Contact Info) Description 07/01/2015 - 07/01/2015 11:59 PM EDT Hospital Encounter Radiology Library at [facility] [place] [address] Spike Nicolas MD [facility] [place] [address] Discharge Disposition: Home Social History Tobacco Use [...] Nicolas MD IMG FILM LIBRARY ORD ERABLES [place], [place] documented in this encounter Visit Diagnoses Not on filedocumented in this encounter Care Teams Pickle Sorter Relationship Specialty Start Date End Date Spike Sierra MD [address] [place] [address] PCP - General 01/12/10 01/23/17 documented as of this encounter
--- OUTSIDE RECORDS SUMMARY | 2024-02-06 19:43 | XMS_ITS | Encounter Summary ---
Author Organization [facility] Address [facility] [place] [address] Care Team Providers Care Metalizing Machine Operator Automatic Name Role Phone Christine Fuentes Primary Care Provider [phone] Encounter Details Date Type Department Care Team (Late st Contact Info) Description 03/08/2017 10:15 AM EST Office Visit [place]emat[place] [address] Marla Brice MD [facility] [place] [address] Sclerosing adenosis of left breast Social History [...] partial mastectomy and RT in 2009 ([facility]). She was followed by surgeon for [...] breast documented in this encounter Care Teams Metalizing Machine Operator Automatic Relationship Specialty Start Date End Date Christine Fuentes PA [address] [place] [address] PCP - General Family Medicine 01/24/17 10/08/19 documented as of this encounter
--- OUTSIDE RECORDS SUMMARY | 2024-02-06 19:43 | XMS_ITS | Encounter Summary ---
Author Organization [facility] [place] [address] Care Team Providers Care Air Brakes Inspector Name Role Phone Spike Sierra MD Primary Care Provider [phone] Reason for Visit * Reason Comments Radiation Follow-up Encounter Details Date Type Department Care Team (Late st Contact Info) Description 12/19/2011 3:00 PM EDT Follow-Up Radiation Oncology at [address] [phone] Ema Fair MD [facility] [place] [address] Breast CA (Primary Dx) Discharge Disposition: Home [...] FU today. 11/21/11 B mmg, done @ [facility], requested by Dr. Forrester, whom [...] and Plan: [place]. Request mmg report from [facility]. I rec'd FU in 6 mos, [...] site documented in this encounter Care Teams Air Brakes Inspector Relationship Specialty Start Date End Date Spike Sierra MD [address] [place] [address] PCP - General 01/12/10 01/23/17 documented as of this encounter
--- OUTSIDE RECORDS SUMMARY | 2024-02-06 19:43 | XMS_ITS | Encounter Summary ---
Author Organization [facility] [place] [address] Care Team Providers Care Hydrogenation Operator Name Role Phone Spike Sierra MD Primary Care Provider [phone] Encounter Details Date Type Department Care Team (Late st Contact Info) Description 05/04/2010 8:00 AM EDT Office Visit Radiation Oncology at [address] [phone] Ema Fair MD [facility] [place] [address] Discharge Disposition: Home Social History Tobacco Use [...] on filedocumented in this encounter Care Teams Hydrogenation Operator Relationship Specialty Start Date End Date Spike Sierra MD [address] [place], [place] [address] PCP - General 01/12/10 01/23/17 documented as of this encounter
--- OUTSIDE RECORDS SUMMARY | 2024-02-06 19:43 | XMS_ITS | Encounter Summary ---
Author Organization Formerly [facility] [place] [address] Care Team Providers Care Wincher Name Role Phone Spike Sierra MD Primary Care Provider Encounter Details Date Type Department Care Team (Late st Contact Info) Description 04/27/2010 8:00 AM EST Follow-Up Radiation Oncology at [address] [phone] Ema Fair MD [facility] [place] [address] Social History Tobacco Use Types Packs/Day Years Used Date Smoking Tobacco: Never Assessed Sex and Gender Information Value Date Recorded Sex Assigned at Not on file Gender Identity Not on file Sexual Orientation Not on file documented as of this encounter Plan of Treatment Not on file documented as of this encounter Visit Diagnoses Not on filedocumented in this encounter Care Teams Wincher Relationship Specialty Start Date End Date Spike Sierra MD [address] [place], [place] [address] PCP - General 01/12/10 01/23/17 documented as of this encounter
--- OUTSIDE RECORDS SUMMARY | 2024-02-06 19:43 | XMS_ITS | Encounter Summary ---
[place] [address] Care Team Providers Care Cementing Machine Operator Name Role Phone Spike Sierra MD Primary Care Provider [phone] Reason for Visit * Reason Onset Date Comments Other 03/07/2011 question regardi ng hormone suppository Encounter Details Date Type Department Care Team (Late st Contact Info) Description 03/07/2011 Telephone Radiation Oncology at [address] [phone] Jessica Boyer, RN Other (question [...] calls stating that she recently saw her TOOL MAINTENANCE TECHNICIAN physician, Dr Yasemin Selby, for c/o vaginal [...] she meet with Dr Stack here at [facility] to discuss her question. Will ask elementary secretary to contact pt w/ this appt. documented in this encounter Plan of Treatment Not on file documented as of this encounter Visit Diagnoses Not on filedocumented in this encounter Care Teams Cementing Machine Operator Relationship Specialty Start Date End Date Spike Sierra MD [address] [place] [address] PCP - General 01/12/10 01/23/17 documented as of this encounter
--- OUTSIDE RECORDS SUMMARY | 2024-02-06 19:43 | XMS_ITS | Encounter Summary ---
Author Organization Formerly [facility] [place] [address] Care Team Providers Care Soap Drier Tender Name Role Phone Unknown Primary Care Provider Unavailabl e Encounter Details Date Type Department Care Team (Late st Contact Info) Description 01/06/2010 [place] [address] Anita Valentine MD [facility] [place] [address] Social History Tobacco Use Types Packs/Day Years [...] 11:19 AM EST) Surgical Pathology Report [id number] ? Location: OPW The signing pathologist has [...] cm ? to 4.0 x 0.5 cm. ??Ringgold-yellow, hemorrhagic, ? fibrofatty. Sections/Proces sing: ?? Submitted [...] in rendering the final pathologic diagnosis. [facility] 01/06/2010 11:1 9 AM EST Anita Valentine MD PATHOLOGY/CYTOLOGY O JUNG Performing Organization Address City/State/[facility] Co de Phone Number [facility] documented in this encounter Visit Diagnoses Not on filedocumented in this encounter Care Teams Soap Drier Tender Relationship Specialty Start Date End Date Unknown None PCP - General 10/09/19 documented as of this encounter
--- OUTSIDE RECORDS SUMMARY | 2024-02-06 19:43 | XMS_ITS | Encounter Summary ---
Author Organization Formerly [facility] [place] [address] Care Team Providers Care Leaf Binner Name Role Phone Unavailable Primary Care Provider Unavailabl e Encounter Details Date Type Department Care Team (Latest Contact Info) Description 12/04/2009 12:05 AM EDT - 12/04/2009 11:59 PM EDT Hospital Encounter Radiology Library at [facility] [place] [address] Spike Nicolas MD [facility] [place] [address] Discharge Disposition: Home Social History Tobacco Use [...] Nicolas MD G FILM LIBRARY [facility]D [facility] [place] documented in this encounter Visit Diagnoses Not on filedocumented in this encounter
--- OUTSIDE RECORDS SUMMARY | 2024-02-06 19:43 | XMS_ITS | Encounter Summary ---
Author Organization [facility] [place] [address] Care Team Providers Care Audio Visual Aids Director Name Role Phone Spike Sierra MD Primary Care Provider [phone] Encounter Details Date Type Department Care Team (Late st Contact Info) Description 01/31/2014 9:00 AM EST Ancillary Appointment Hematology Oncology at [address] [phone] [facility] [place] [address] Social History Tobacco Use Types Packs/Day Years Used Date Smoking Tobacco: Former Cigarettes Q uit: 10/19/2011 Sex and Gender Information Value Date Recorded Sex Assigned at Not on file Gender Identity Not on file Sexual Orientation Not on file documented as of this encounter Progress Notes * Denzel Payne RD - 01/31/2014 9:02 AM EST [facility] Dietitian Follow Up Assessment Seen By: Elida Payne, MS, RD, COMMUNICATION CONSULTANT, LD Reason for visit: Wanting to lose [...] up to 17 min/treadmill). Logging calories, likes [employer] and [employer] and the meal suggestions, but didn't feel [...] levels, if suboptimal in 3-6 mos. The [facility] series from [facility] September 2008 showed a [...] on filedocumented in this encounter Care Teams Audio Visual Aids Director Relationship Specialty Start Date End Date Spike Sierra MD [address] [place] [address] PCP - General 01/12/10 01/23/17 documented as of this encounter
--- OUTSIDE RECORDS SUMMARY | 2024-02-06 19:43 | XMS_ITS | Encounter Summary ---
Author Organization [facility] Address [facility] [place] [address] Care Team Providers Care Gallery Host Name Role Phone Spike Sierra MD Primary Care Provider Encounter Details Date Type Department Care Team (Latest Contact Info) Description 12/31/2014 - 12/31/2014 12:04 AM [facility] Hospital Encounter Radiology Library at [facility] [place] [address] Spike Nicolas MD [facility] DIAGNOSTERI [place] [address] Screening breast examination Discharge Disposition: Home Social [...] Only Mammo (12/31/2014 12:00 AM EST) Narrative [facility] - 01/11/2017 4:47 PM EST This exam is for storage only and is auto-finalizing. Spike Nicolas MD IMG FILM LIBRARY ORD ERABLES [place], [place] documented in this encounter Visit Diagnoses Diagnosis Screening breast examination Other screening breast examination documented in this encounter Care Teams Gallery Host Relationship Specialty Start Date End Date Spike Sierra MD [address] [place] [address] PCP - General 01/12/10 01/23/17 documented as of this encounter
--- OUTSIDE RECORDS SUMMARY | 2024-02-06 19:43 | XMS_ITS | Encounter Summary ---
Author Organization Formerly [facility] Address [facility] [place] [address] Care Team Providers Care Hogshead Mat Inspector Name Role Phone Christine Fuentes Primary Care Provider [phone] Reason for Visit * Consultation (Routine) - Closed Specialty Diagnoses / Procedures Referred By Cherie abdul Referred To Contact Hematology and Oncology Diagnoses Abnormal magnetic resonance imaging of left breast Christine Fuentes PA [address] [place] [address] [facility] Hem Onc [address] [place] [address] Referral ID Status Reason Start Date Expiration Date V isits Requested Visits Authorized [id number] Closed Consult, Test & Treat PCP Updated and/or Approved 01/20/2017 01/20/2018 1 1 Encounter Details Date Type Department Care Team (Latest Contact Info) Description 02/01/2017 12:38 PM EST - 02/01/2017 12:39 PM EST Hospital [place] [address] Anita Valentine MD [facility] [place] [address] Abnormal finding on breast imaging [...] core biopsy specimens were obtained using a Ocean[employer]iva 9g 20mm device. A specimen radiograph confirms [...] core biopsy specimens were obtained using a [employer] Eviva 9g 20mm device. A specimen radiograph [...] core biopsy specimens were obtained using a [employer] Eviva 9g 20mmdevice. A specimen radiograph confirms [...] PM EST 02/01/2017 1:46 PM EST Narrative [facility] - 02/01/2017 1:46 PM EST Specimen requisition ordered. ??Separate Pathology report to follow Evans Almanzar MD PATHOLOGY/CYTOLOGY ORDERABLES [facility] [place] [address] documented in this encounter Visit Diagnoses Diagnosis [...] mg documented in this encounter Care Teams Hogshead Mat Inspector Relationship Specialty Start Date End Date Christine Fuentes PA [address] [place] [address] PCP - General Family Medicine 01/24/17 10/08/19 documented as of this encounter
--- OUTSIDE RECORDS SUMMARY | 2024-02-06 19:43 | XMS_ITS | Encounter Summary ---
[place] [address] Care Team Providers Care Sewing Machine Adjuster Name Role Phone Unavailable Primary Care Provider Unavailabl e Encounter Details Date Type Department Care Team (Late st Contact Info) Description 01/06/2010 9:10 AM EST Procedure visit [place] [address] Social History Tobacco Use Types Packs/Day Years [...]
--- OUTSIDE RECORDS SUMMARY | 2024-02-06 19:43 | XMS_ITS | Encounter Summary ---
Author Organization [facility] [place] [address] Care Team Providers Care Fitter Placer Name Role Phone Unavailable Primary Care Provider Unavailabl e Encounter Details Date Type Department Care Team (Latest Contact Info) Description 12/04/2009 - 12/04/2009 12:04 AM EDT Hospital Encounter Radiology Library at [facility] [place] [address] Spike Nicolas MD [facility] [place] [address] Discharge Disposition: Home Social History Tobacco Use [...] G FILM LIBRARY ORD ERABLES [facility] [place] documented in this encounter Visit Diagnoses Not on filedocumented in this encounter
--- OUTSIDE RECORDS SUMMARY | 2024-02-06 19:43 | XMS_ITS | Encounter Summary ---
Author Organization [facility] [place] [address] Care Team Providers Care Nurse Liaison Name Role Phone Spike Sierra MD Primary Care Provider [phone] Reason for Visit * Reason Comments Radiation Follow-up breast cancer Encounter Details Date Type Department Care Team (Late st Contact Info) Description 12/13/2012 2:00 PM EDT Follow-Up Radiation Oncology at [address] [phone] Yolette Waldrop APRN [address] [place] [address] [place] [address] Breast cancer (Primary Dx) Discharge [...] this encounter Progress Notes * Yolette Waldrop, DAY TRADER - 12/13/2012 2:17 PM EDT Subjective: Patient [...] Dr. Forrester & he referred her to [facility] for stereotactic bx. 01/06/10 limited U/S R [...] Valentine, who does not rec MRI. 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 1st child @ age [...] rec'd. Surveillance: ----11/21/11 B mmg, done @ [facility], requested by Dr. 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 She had a normal mammogram at [facility] (we will request a copy). We reviewed [...] site documented in this encounter Care Teams Nurse Liaison Relationship Specialty Start Date End Date Spike Sierra MD [address] [place] [address] PCP - General 01/12/10 01/23/17 documented as of this encounter
--- OUTSIDE RECORDS SUMMARY | 2024-02-06 19:43 | XMS_ITS | Encounter Summary ---
[place] [address] Care Team Providers Care Program Proposals Coordinator Name Role Phone Spike Sierra MD Primary Care Provider Encounter Details Date Type Department Care Team (Late st Contact Info) Description 03/08/2010 9:30 AM EST Office Visit [place] [address] Rad NurseSt Christianson Social History Tobacco Use [...] filedocumented in this encounter Care Teams Program Proposals Coordinator Relationship Specialty Start Date End Date Spike Sierra MD [address] [place] [address] PCP - General 01/12/10 01/23/17 documented as of this encounter
--- OUTSIDE RECORDS SUMMARY | 2024-02-06 19:43 | XMS_ITS | Encounter Summary ---
Author Organization [facility] Address [facility] [place] [address] Care Team Providers Care Senior Cobol Developer Name Role Phone Spike Sierra MD Primary Care Provider Encounter Details Date Type Department Care Team (Latest Contact Info) Description 01/04/2016 - 01/04/2016 11:59 PM EST Hospital Encounter Radiology Library [place] [facility] [place] [address] Spike Nicolas MD [facility] [place] [address] Discharge Disposition: Home Social History Tobacco Use [...] Only Mammo (01/04/2016 12:00 AM EST) Narrative [facility] - 01/13/2017 9:06 AM EST This exam is for storage only and is auto-finalizing. Spike Nicolas MD IMG FILM LIBRARY ORD ERABLES Performing Organization Address City/State/[facility] Co de Phone Number [place], [place] documented in this encounter Visit Diagnoses Not on filedocumented in this encounter Care Teams Senior Cobol Developer Relationship Specialty Start Date End Date Spike Sierra MD [address] [place] [address] PCP - General 01/12/10 01/23/17 documented as of this encounter
--- OUTSIDE RECORDS SUMMARY | 2024-02-06 19:43 | XMS_ITS | Encounter Summary ---
Author Organization [facility] [place] [address] Care Team Providers Care Basketball Assembler Name Role Phone Spike Sierra MD Primary Care Provider Encounter Details Date Type Department Care Team (Late st Contact Info) Description 03/08/2010 10:00 AM EST Office Visit Radiation Oncology at [address] [phone] Ema Fair MD [facility] [place] [address] Discharge Disposition: Home Social History Tobacco Use [...] on filedocumented in this encounter Care Teams Basketball Assembler Relationship Specialty Start Date End Date Spike Sierra MD [address] [place] [address] PCP - General 01/12/10 01/23/17 documented as of this encounter
--- OUTSIDE RECORDS SUMMARY | 2024-02-06 19:43 | XMS_ITS | Encounter Summary ---
Author Organization [facility] Address [facility] [place] [address] Care Team Providers Care Practice Manager Name Role Phone Christnie Fuentes Primary Care Provider [phone]- [phone] Encounter Details Date Type Department Care Team (Latest Contact Info) Description 02/01/2017 12:40 PM EST - 02/01/2017 11:59 PM EST Hospital En[place] [address] Anita Valentine MD [facility] [place] [address] Abnormal finding on breast imaging Discharge Disposition: [...] Report (02/01/2017 1:46 PM EST) Final Diagnosis [id number] ? Location: 3L The signing pathologist has [...] Alayna Valdes Verified: ??02/02/2017 ?Pathologist Performed at: ??-[facility] Dept. of Pathology, [place], [place] DISCUSSION Multiple foci of complex sclerosing [...] sing: (T2) ??shb 02/02/2017 2:27 PM EST [facility] BREAST STRUCTURE / Unknown 02/01/2017 1:46 PM EST 02/01/2017 1:46 PM EST Evans Almanzar MD PATHOLOGY/CYTOLOGY ORDERABLES [facility] [place] [address] * Mammo Breast Us Limited Left (02/01/2017 [...] core biopsy specimens were obtained using a [employer] Eviva 9g 20mm device. A specimen radiograph confirms the mass with distorted edges to be contained within it. This also contains the incidental microcalcifications associated with the area of concern. A Micks[employer] Eviva cylinder marker clip was deployed. A [...] breast documented in this encounter Care Teams Practice Manager Relationship Specialty Start Date End Date Christine Fuentes [address] [place] [address] PCP - General Family Medicine 01/24/17 10/08/19 documented as of this encounter
--- OUTSIDE RECORDS SUMMARY | 2024-02-06 19:43 | XMS_ITS | Encounter Summary ---
[place] [address] Care Team Providers Care Recycling Director Name Role Phone Spike Sierra MD Primary Care Provider Encounter Details Date Type Department Care Team (Late st Contact Info) Description 03/23/2010 8:00 AM EST Follow-Up [place] [address] Colin Cotto MD Social History Tobacco Use [...] on filedocumented in this encounter Care Teams Recycling Director Relationship Specialty Start Date End Date Spike Sierra MD [address] [place] [address] PCP - General 01/12/10 01/23/17 documented as of this encounter
--- OUTSIDE RECORDS SUMMARY | 2024-02-06 19:43 | XMS_ITS | Encounter Summary ---
[place] [address] Care Team Providers Care Automatic Oven Operator Name Role Phone Spike Sierra MD Primary Care Provider [phone] Reason for Visit * Reason Onset Date Comments Other 07/05/2011 answer patient q uestion Encounter Details Date Type Department Care Team (Late st Contact Info) Description 07/05/2011 Telephone Radiation Oncology at [address] [phone] Daniel Boyer, RN Other (answer patient question) [...] 2011 11:53 AM Regarding: re:upcoming appt Contact: [phone] Please call pt back. She said there was some confusion with what she thought the upcoming appt was going to be about. I called patient and she confirmed that she received appt to see the nurse practitioner,Yolette Coon 07/13, but she feels it is too soon after seeing Dr Fair in May. She states she is now seeinga Amish counselor through her confucianist and this is helping with her depression. She is agreeable to seeing the nurse practitioner, but prefers to wait until the routine follow up appt would be. Shewishes to cancel the 07/13 appointment. She voiced that she will call this clinic if she feels the current arrangement w/ her confucianist is not helpful. Plan: Will cancel the 07/13 appt w/ C. Pace. I will ask Dr Fair in this week's team meeting, when she wishes for the appt to be rescheduled to. documented in this encounter Plan of Treatment Not on file documented as of this encounter Visit Diagnoses Not on filedocumented in this encounter Care Teams Automatic Oven Operator Relationship Specialty Start Date End Date Spike Sierra MD [address] [place] [address] PCP - General 01/12/10 01/23/17 documented as of this encounter
--- OUTSIDE RECORDS SUMMARY | 2024-02-06 19:43 | XMS_ITS | Encounter Summary ---
Author Organization [facility] [place] [address] Care Team Providers Care At&T Retailer Sales Consultant Name Role Phone Spike Sierra MD Primary Care Provider Encounter Details Date Type Department Care Team (Latest Contact Info) Description 01/17/2014 Unscheduled Encounter Hematology Oncology at [address] [phone] [facility] [place] [address] Dietary surveillance and counseling Social History Tobacco Use Types Packs/Day Years Used Date Smoking Tobacco: Former Cigarettes Q uit: 10/19/2011 Sex and Gender Information Value Date Recorded Sex Assigned at Not on file Gender Identity Not on file Sexual Orientation Not on file documented as of this encounter Progress Notes * Denzel Payne, MUMTAZ - 01/17/2014 1:00 PM EST [facility] Dietitian Follow Up Assessment Seen By: Elida Payne, MS, RD, POLICY SERVICE COORDINATOR, LD Reason for visit: Wanting to [...] have eggs and toast Noon: can of The RealRealo lite soup and pickels Pm: lean cuisine [...] up to 17 min/treadmill). Logging calories, likes [employer] and the meal suggestions, but didn't feel [...] levels, if suboptimal in 3-6 mos. The [facility] series from [facility] September 2008 showed a lower risk of [...] counseling documented in this encounter Care Teams At&T Retailer Sales Consultant Relationship Specialty Start Date End Date Spike Sierra MD [address] [place] [address] PCP - General 01/12/10 01/23/17 documented as of this encounter
--- OUTSIDE RECORDS SUMMARY | 2024-02-06 19:43 | XMS_ITS | Encounter Summary ---
Author Organization [facility] [place] [address] Care Team Providers Care Med Care Manager Name Role Phone Spike Sierra MD Primary Care Provider Reason for Referral * Consultation (Routine) - Closed Specialty Diagnoses / Procedures Referred By Cherie abdul Referred To Contact Hematology and Oncology Diagnoses Breast cancer, right Yolette Waldrop BUFFING WHEEL FORMER MACHINE [facility] [place] [address] Stj Hem Onc Infusion [address] [place] [phone] Referral ID Status Reason Start Date Expiration Date V isits Requested Visits Authorized [id number] Closed Continuity of Care 12/27/2013 06/25/2014 1 1 Reason for Visit * Reason Comments Radiation Follow-up breast cancer Encounter Details Date Type Department Care Team (Late st Contact Info) Description 12/26/2013 9:00 AM EST Follow-Up Radiation Oncology at [address] [phone] Yolette Waldrop [address] [place] [address] Breast cancer, right (Primary Dx) [...] Dr. Forrester & he referred her to [facility] for stereotactic bx. 01/06/10 [...] Valentine, who does not rec MRI. 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 1st child @ age [...] in situ Tumor Staging from Staging System [id number] You had stage 0 breast cancer with a good prognosis Size of Primary Malignancy 0.22 cm Grade Low grade Margin Negative--localized breast cancer ER positive [place] positive Family history Mother with history of breast cancer at age 53 Hormone therapy none Chemotherapy none Radiation therapy Total dose of radiation 60.4 Gy Surveillance: ----11/21/11 B mmg, done @ [facility], requested by Dr. 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 She had a normal mammogram at [facility] (we will request a copy). We [...] concerns. She would like to meet with balloon tester todiscuss weight loss --referral made. documented in this encounter Plan of Treatment Scheduled Referrals Name Type Priority Associated Diagnoses Orde r Schedule Referral to Nutrition Services Outpatient Referral Routine Breast Cancer, Right Ordered: 12/27/2013 documented as of this encounter Visit Diagnoses Diagnosis Breast cancer, right- Primary Malignant neoplasm of breast (female), unspecified site documented in this encounter Care Teams Med Care Manager Relationship Specialty Start Date End Date Spike Sierra MD [address] [place] [address] PCP - General 01/12/10 01/23/17 documented as of this encounter
--- OUTSIDE RECORDS SUMMARY | 2024-02-06 19:43 | XMS_ITS | Encounter Summary ---
Author Organization [facility] [place] [address] Care Team Providers Care Nurse Paralegal Name Role Phone Spike Sierra MD Primary Care Provider [phone] Encounter Details Date Type Department Care Team (Late st Contact Info) Description 01/06/2010 [place] [address] Kwasi Valentine MD [facility] [place] [address] Social History Tobacco Use Types Packs/Day Years [...] 11:19 AM EST) Surgical Pathology Report ? [facility] ? Provider: ?? KWASI VALENTINE ?Pt. Name: ?? CECILIA MARX ? Acc #: ?[id number] ?Pt. ? Col Date: ?? 01/06/2010 ?/Sex: [...] 0.6 cm ?to 4.0 x 0.5 cm. ??Dermott-yellow, hemorrhagic, ?fibrofatty. ? Sections/Proces sing: ?? Submitted in (A2-A3). ??(T3) ??aje/SNS ? ---Clinical Information--- ? Specimen Submitted: ? A - Right breast, stereo bx ? Clinical History: ? [facility] ? Provider: ?? KWASI VALENTINE ?Pt. Name: ?? CECILIA MARX ? Acc #: ?[id number] ?Pt. ? Col Date: ?? 01/06/2010 ?/Sex: ?1955,(54 years),Female ? Rec Date: ?? 01/06/2010 ?LOC: ?OPW ? SURGICAL PATHOLOGY ? Calcs, coarse, low suspicion ? Clinical Diagnosis: ? Fat necrosis, FA change, CA unlikely CERNER MILLENNIUM 01/06/2010 11:1 9 AM EST Kwasi Valentine MD PATHOLOGY/CYTOLOGY O RDERABLES [facility] documented in this encounter Visit Diagnoses Not on filedocumented in this encounter Care Teams Nurse Paralegal Relationship Specialty Start Date End Date Spike Sierra MD [address] [place] [address] PCP - General 01/12/10 01/23/17 documented as of this encounter
--- OUTSIDE RECORDS SUMMARY | 2024-02-06 19:43 | XMS_ITS | Encounter Summary ---
Author Organization [facility] [place] [address] Care Team Providers Care Health Education Teacher Name Role Phone Spike Sierra MD Primary Care Provider [phone] Encounter Details Date Type Department Care Team (Late st Contact Info) Description 03/07/2014 9:00 AM EST Ancillary Appointment Hematology Oncology at [address] [phone] [facility] [place] [address] Social History Tobacco Use Types Packs/Day Years Used Date Smoking Tobacco: Former Cigarettes Q uit: 10/19/2011 Sex and Gender Information Value Date Recorded Sex Assigned at Not on file Gender Identity Not on file Sexual Orientation Not on file documented as of this encounter Progress Notes * Denzel Payne RD - 03/07/2014 8:59 AM EST [facility] Dietitian Follow Up Assessment Seen By: Elida Payne, MS, RD, PAPER TESTING SUPERVISOR, LD Reason for visit: Wanting to lose [...] up to 17 min/treadmill). Logging calories, likes [employer] and the meal suggestions, but didn't feel [...] suboptimal in 3-[address] [facility] series from [facility] [place] better -- She lost 1 lb during [place] holidays, which her goal was to maintain. 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 Marx in one week (s) to re-evaluate. documented in this encounter Plan of Treatment Not on file documented as of this encounter Visit Diagnoses Not on filedocumented in this encounter Care Teams Health Education Teacher Relationship Specialty Start Date End Date Spike Sierra MD [address] [place] [address] PCP - General 01/12/10 01/23/17 documented as of this encounter
--- OUTSIDE RECORDS SUMMARY | 2024-02-06 19:43 | XMS_ITS | Encounter Summary ---
Author Organization [facility] [place] [address] Care Team Providers Care Cattle Inspector Name Role Phone Spike Sierra MD Primary Care Provider Encounter Details Date Type Department Care Team (Late st Contact Info) Description 04/20/2010 8:00 AM EST Follow-Up Radiation Oncology at [address] [phone] Ema Fair MD [facility] [place] [address] Social History Tobacco Use Types Packs/Day Years Used Date Smoking Tobacco: Never Assessed Sex and Gender Information Value Date Recorded Sex Assigned at Not on file Gender Identity Not on file Sexual Orientation Not on file documented as of this encounter Plan of Treatment Not on file documented as of this encounter Visit Diagnoses Not on filedocumented in this encounter Care Teams Cattle Inspector Relationship Specialty Start Date End Date Spike Sierra MD [address] [place], [place] [address] PCP - General 01/12/10 01/23/17 documented as of this encounter
--- OUTSIDE RECORDS SUMMARY | 2024-02-06 19:43 | XMS_ITS | Encounter Summary ---
[place] [address] Care Team Providers Care Centerless Grinder Tender Name Role Phone Spike Sierra MD Primary Care Provider [phone] Encounter Details Date Type Department Care Team (Late st Contact Info) Description 03/09/2010 8:30 AM EST Follow-[place] [address] Rad NurseSt Christianson Social History Tobacco Use [...] on filedocumented in this encounter Care Teams Centerless Grinder Tender Relationship Specialty Start Date End Date Spike Sierra MD [address] [place] [address] PCP - General 01/12/10 01/23/17 documented as of this encounter
--- OUTSIDE RECORDS SUMMARY | 2024-02-06 19:43 | XMS_ITS | Encounter Summary ---
Author Organization [facility] [place] [address] Care Team Providers Care Foreign Student Adviser Teacher Name Role Phone Spike Sierra MD Primary Care Provider Encounter Details Date Type Department Care Team (Latest Contact Info) Description 03/09/2010 9:00 AM EST Procedure visit Radiation Oncology at [address] [phone] Ema Fair MD [facility] [place] [address] Discharge Disposition: Home Social History Tobacco Use [...] on filedocumented in this encounter Care Teams Foreign Student Adviser Teacher Relationship Specialty Start Date End Date Spike Sierra MD [address] [place] [address] PCP - General 01/12/10 01/23/17 documented as of this encounter
--- OUTSIDE RECORDS SUMMARY | 2024-02-06 19:43 | XMS_ITS | Encounter Summary ---
Author Organization [facility] [place] [address] Care Team Providers Care Soa Integration Architect Name Role Phone Spike Sierra MD Primary Care Provider [phone] Encounter Details Date Type Department Care Team (Late st Contact Info) Description 01/09/2014 2:00 PM EST Ancillary Appointment Hematology Oncology at [address] [phone] [facility] [place] [address] Social History Tobacco Use Types Packs/Day Years Used Date Smoking Tobacco: Former Cigarettes Q uit: 10/19/2011 Sex and Gender Information Value Date Recorded Sex Assigned at Not on file Gender Identity Not on file Sexual Orientation Not on file documented as of this encounter Progress Notes * Denzel Payne RD - 01/09/2014 2:21 PM EST [facility] Initial Dietitian Assessment Seen By: Elida Payne MS, RD, LIGHT INDUSTRIAL, LD Referred by: Yolette Waldrop APRN Reason [...] have eggs and toast Noon: can of Flexiroamo lite soup and pickels Pm: lean cuisine [...] levels, if suboptimal in 3-6 mos. The [facility] series from [facility] [place] 2008 showed a lower risk of [...] on filedocumented in this encounter Care Teams Soa Integration Architect Relationship Specialty Start Date End Date Spike Sierra MD [address] [place] [address] PCP - General 01/12/10 01/23/17 documented as of this encounter
[2024-02-06 21:02] LABS: Abs Immature Grans 0.03 10^3/uL (0.0-0.06); Absolute Basophil Count 0.05 10^3/uL (0.0-0.2); Absolute Eosinophil Count 0.05 10^3/uL (0.0-0.7); Absolute Lymphocyte Count 2.09 10^3/uL (1.2-3.4); Basophils % 0.4 %; Eosinophils % 0.4 %; HCT 41.7 % (36.0-46.0); HGB 13.8 g/dL (11.2-15.7); Immature Grans % 0.2 %; Lymphocytes % 16.1 %; MCH 30.9 pg (27.0-33.0); MCHC 33.1 % (32.0-36.0); MCV 93 fL (80-95); MPV 11.5 fL (8.0-11.0); Monocytes % 7.2 %; Neutrophils % 75.7 %; Platelet Count 222 10^3/uL (130-400); RBC 4.47 10^6/uL (3.93-5.22); RDW 12.7 % (11.7-14.6); RDW-SD 43.3 fL; WBC 12.97 10^3/uL (4.4-10.8)
[2024-02-06 21:05] LABS: ALT 36 U/L (14-59); AST 20 U/L (15-37); Albumin 3.6 g/dL (3.4-5.0); Alkaline Phosphatase 93 U/L (46-116); Anion Gap 11.2 mmol/L (3-11); BUN 20 mg/dL (7-18); C-Reactive Protein 10.21 mg/dL (<or=0.5); CO2 27.8 mmol/L (21.0-32.0); Calcium 9.9 mg/dL (8.5-10.1); Chloride 104 mmol/L (98-107); Estimated GFR 61.75 (mL/min/1.73m2); Glucose 110 mg/dL (74-106); Potassium 4.2 mmol/L (3.5-5.1); Sodium 143 mmol/L (136-145); Total Protein 7.7 g/dL (6.4-8.2)
[2024-02-06 21:09] LABS: Absolute Monocyte Count 0.93 10^3/uL (0.1-0.8); Absolute Neutrophil Count 9.82 10^3/uL (1.2-6.7)
== END 2024-02-06 19:39 | disposition home or self-care (01) ==
LOC: LBN 19:38
PROVIDERS: PCP Family Medicine; Visit Provider Nurse Practitioner Family
DX: R10.30 Lower abdominal pain, unspecified (principal)
CPT/HCPCS: 80053; 85025; 86140

== ENCOUNTER 2024-02-08 17:02 | Outpatient (REF) | payer MEDICARE, SELFPAY ==
[2024-02-08 14:43] LABS: Abs Immature Grans 0.01 10^3/uL (0.0-0.06); Absolute Basophil Count 0.03 10^3/uL (0.0-0.2); Absolute Eosinophil Count 0.11 10^3/uL (0.0-0.7); Absolute Lymphocyte Count 2.34 10^3/uL (1.2-3.4); Absolute Monocyte Count 0.45 10^3/uL (0.1-0.8); Absolute Neutrophil Count 3.18 10^3/uL (1.2-6.7); Basophils % 0.5 %; Eosinophils % 1.8 %; HCT 40.7 % (36.0-46.0); HGB 13.8 g/dL (11.2-15.7); Immature Grans % 0.2 %; Lymphocytes % 38.2 %; MCH 30.9 pg (27.0-33.0); MCHC 33.9 % (32.0-36.0); MCV 91 fL (80-95); MPV 11.3 fL (8.0-11.0); Monocytes % 7.4 %; Neutrophils % 51.9 %; Platelet Count 243 10^3/uL (130-400); RBC 4.47 10^6/uL (3.93-5.22); RDW 12.3 % (11.7-14.6); RDW-SD 41.2 fL; WBC 6.12 10^3/uL (4.4-10.8)
[2024-02-08 15:18] LABS: ALT 35 U/L (14-59); AST 24 U/L (15-37); Albumin 3.6 g/dL (3.4-5.0); Alkaline Phosphatase 86 U/L (46-116); Anion Gap 11.7 mmol/L (3-11); BUN 18 mg/dL (7-18); Bilirubin, Total 0.42 mg/dL (0.2-1.0); C-Reactive Protein 7.79 mg/dL (<or=0.5); CO2 25.3 mmol/L (21.0-32.0); Calcium 9.6 mg/dL (8.5-10.1); Chloride 105 mmol/L (98-107); Estimated GFR 61.75 (mL/min/1.73m2); Glucose 95 mg/dL (74-106); Potassium 4.4 mmol/L (3.5-5.1); Sodium 142 mmol/L (136-145); Total Protein 7.7 g/dL (6.4-8.2)
--- OUTSIDE RECORDS SUMMARY | 2024-02-08 17:10 | XMS_ITS | Encounter Summary ---
Author [facility] [place] [address] Care Team Providers Care Prefabricator Name Role Phone Christine Fuentes Primary Care Provider [phone] Encounter Details Date Type Department Care Team (Late st Contact Info) Description 08/29/2018 Orders [place] [address] Bautista Mcgrath MD [facility] [place] [address] Fatty liver Social History Tobacco Use Types [...] disease documented in this encounter Care Teams Prefabricator Relationship Specialty Start Date End Date Christine Fuentes PA [address] [place] [address] PCP - General Family Medicine 01/24/17 10/08/19 documented as of this encounter
--- OUTSIDE RECORDS SUMMARY | 2024-02-08 17:10 | XMS_ITS | Encounter Summary ---
Author Organization [facility] Address [address] [place] [address] Care Team Providers Care Assignment Agent Name Role Phone Christine Fuentes PA-C Primary Care Provider + Encounter Details Date Type Department Care Team (Latest Contact Info) Description 04/10/2017 9:46 EST - 04/10/2017 23:59 EST Hospital Encounter [address] [address] Unknown, Provider, MD Discharge Disposition: Home or [...] Code Departure Means Destination Home or Self Correction documented in this encounter Plan of Treatment Not on file documented as of this encounter Visit Diagnoses Not on filedocumented in this encounter Care Teams Assignment Agent Relationship Specialty Start Date End Date Christine Fuentes PA-C [address] [place] [phone] PCP - General 10/23/16 documented as of this encounter
--- OUTSIDE RECORDS SUMMARY | 2024-02-08 17:10 | XMS_ITS | Encounter Summary ---
Author Organization [facility] Address [address] [place] [address] Care Team Providers Care Trouble Dispatcher Name Role Phone Unavailable Primary Care Provider Unavailabl e Encounter Details Date Type Department Care Team (Late st Contact Info) Description 01/28/2010 Results Only [facility] Laboratory Services - [facility] ([facility] [address] [place], [place] [phone] Bautista Forrester, DO [address] [facility] [address] [place], [place] [id number] Social History Tobacco Use Types Packs/Day Years [...] ? STEVE MARX ? Accession #: ? [id number] ? : ? 1955 (Age: 54) ??F ?Collect Date: ? 01/28/2010 ? Location: ? [facility] ? Receive Date: ? 01/29/2010 ? Provider: CHRISTOPHER KI DO ? Copy to: KAYLI LUNDBERG RISK MANAGEMENT SPECIALIST ? Final Pathologic Diagnosis: ? A. ?Breast, [...] adipose ? tissue, which is slightly fragmented. ??Screen Room Operator sections are submitted as follows: ? BLOCK [...] A20, A21 ? Level 13, lateral margin, direct customer service representative perpendicular sections ? Received in formalin [...] Tissue submitted: Paraffin embedded tissue block labelled [id number] (A10) ?? from [facility] ? An immunohistochemical assay for estrogen receptors (ER1D5, Dako) and ? progesterone receptors (EiM3501, Dako) has been performed on this specimen. [...] ??performance ? characteristics have been determined by [facility]. ??This ? laboratory is certified [...] 01/28/2010 01/29/2010 17: 05 EST us Franklynbobo Lafitte DO PATHOLOGY ORDERABLES Fi nal Result [facility] [address] [place] [address] documented in this encounter Visit Diagnoses Not on filedocumented in this encounter
--- OUTSIDE RECORDS SUMMARY | 2024-02-08 17:10 | XMS_ITS | Encounter Summary ---
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
--- OUTSIDE RECORDS SUMMARY | 2024-02-08 17:10 | XMS_ITS | Encounter Summary ---
[place] [address] Care Team Providers Care Media Consultant Name Role Phone Christine Fuentes Primary Care Provider [phone] Encounter Details Date Type Department Care Team (Late st Contact Info) Description 08/09/2018 11:00 [place] [address] Janaury Davis Social History Tobacco Use Types Packs/Day [...] 110-L-C/D- white We ordered her 3 more, [place],Silveira, and Star flower. 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 documented in this encounter Plan of Treatment Not on file documented as of this encounter Visit Diagnoses Not on filedocumented in this encounter Care Teams Media Consultant Relationship Specialty Start Date End Date Christine Fuentes PA [address] [place] [address] PCP - General Family Medicine 01/24/17 10/08/19 documented as of this encounter
--- OUTSIDE RECORDS SUMMARY | 2024-02-08 17:10 | XMS_ITS | Encounter Summary ---
[place] [address] Care Team Providers Care Press Set Up Name Role Phone Christine Fuentes Primary Care Provider [phone] Encounter Details Date Type Department Care Team (Late st Contact Info) Description 05/08/2018 Telephone Hematology [place] [phone] Trinh Lira Social History Tobacco Use Types [...] on filedocumented in this encounter Care Teams Press Set Up Relationship Specialty Start Date End Date Christine Fuentes PA [address] [place] [address] PCP - General Family Medicine 01/24/17 10/08/19 documented as of this encounter
--- OUTSIDE RECORDS SUMMARY | 2024-02-08 17:10 | XMS_ITS | Encounter Summary ---
Author Organization [facility] Address [address] [place] [address] Care Team Providers Care License Clerk Name Role Phone Unknown, Provider Primary Care Provider Unava ilable Encounter Details Date Type Department Care Team (Latest Contact Info) Description 08/08/2016 8:25 EDT - 08/08/2016 23:59 EDT Hospital Encounter [address] [address] Unknown, Provider, Discharge Disposition: Home or Self [...] Code Departure Means Destination Home or Self Senior Living documented in this encounter Plan of Treatment Not on file documented as of this encounter Visit Diagnoses Not on filedocumented in this encounter Care Teams License Clerk Relationship Specialty Start Date End Date Unknown, Provider, PCP - General 02/02/10 10/22/16 documented as of this encounter
--- OUTSIDE RECORDS SUMMARY | 2024-02-08 17:10 | XMS_ITS | Encounter Summary ---
[place] [address] Care Team Providers Care Branch Services Manager Name Role Phone Christine Fuentes Primary Care Provider +[phone]- [phone] Encounter Details Date Type Department Care Team (Late st Contact Info) Description 08/29/2018 Telephone [place] [phone] Kiersten Hodges RN Social History Tobacco Use [...] 10:23 AM EDT Call placed to [facility] has lab results not scanned in. Per Danyell, patient has not come in for lab. Call placed to Diane. FLORES reminding she's due for labs. Asked her to call back or send Rexly message * Telephone Encounter - Kiersten Dean RN - 08/29/2018 3:20 PM EDT Bautista Mcgrath MD sent to Kiersten Dean, DAVID ?? Debbie, I am not sure if you are the right person to send this to. I saw this patient in clinic this week but want additional labs. She lives close to [facility] and would be reasonable to have them done there. I ordered the labs as external and called to patient to let her know. Do we fax the orders to [facility]? Isthis something that I should send to the secretaries? Thanks, James Lab orders faxed to [facility] at [phone]. Reminder set to f/u on results. documented in this encounter Plan of Treatment Not on file documented as of this encounter Visit Diagnoses Not on filedocumented in this encounter Care Teams Branch Services Manager Relationship Specialty Start Date End Date Christine Fuentes PA [address] [place] [address] PCP - General Family Medicine 01/24/17 10/08/19 documented as of this encounter
--- OUTSIDE RECORDS SUMMARY | 2024-02-08 17:10 | XMS_ITS | Encounter Summary ---
Author Organization [facility] Address [address] [place] [address] Care Team Providers Care Ground Support Equipment Fitter Name Role Phone Unknown, Provider Primary Care Provider Unava ilable Encounter Details Date Type Department Care Team (Late st Contact Info) Description 08/08/[address] [facility] [phone] Sirena Tinajero, [address] [place], [place] [phone] Social History Tobacco Use Types Packs/Day Years [...] ? STEVE MARX ? Accession #: ? [id number] ? : ? 1955 (Age: 61) ??F [...] moderate amount of cytoplasm. ??The melanocytes show engraver steel plate maturation. ? B-The stratum corneum is thickened [...] (ASCP) 08/09/2016 2:33 PM End of Report [facility] 08/08/2016 10:5 8 EDT 08/09/2016 10:58 EDT us Sirena Tinajero DO PATHOLOGY ORDERABLES Fi nal Result [facility] [address] [place] [address] documented in this encounter Visit Diagnoses Not on filedocumented in this encounter Care Teams Ground Support Equipment Fitter Relationship Specialty Start Date End Date Unknown, Provider, PCP - General 02/02/10 10/22/16 documented as of this encounter
--- OUTSIDE RECORDS SUMMARY | 2024-02-08 17:10 | XMS_ITS | Encounter Summary ---
Author Organization [facility] Address [address] [place] [address] Care Team Providers Care Dental Claims Processor Name Role Phone Unavailable Primary Care Provider Unavailabl e Encounter Details Date Type Department Care Team (Late st Contact Info) Description 03/27/2006 Results Only [facility] - [facility] [address] [place] [address] Kayli Engel FNP [address] [place], [place] [phone] Social History Tobacco Use Types Packs/Day Years [...] [address]. [facility] Report Status Final [id number] [facility] 03/27/2006 8:18 EST 03/31/2006 8:18 EST us Kayli Engel REPORTING MANAGER MICROBIOLOGY - GENERAL ORDERABLE S Final Result [facility] [address] [place] [address] * CYTOPATHOLOGY (03/27/2006 0:00 EST) Pathology Report: CYTOPATHOLOGY REPORT Reports generated via electronic interface contain original data; however they are lacking the format of the original report. Caution should be taken when reading/interpreti ng unformatted reports. Name: ? JAMEL STEVE L ? Accession #: ? [id number] : ? 1955 (Age: 51) ??F ?Collect Date: ? 03/27/2006 Location: ? [facility] ? Receive Date: ? 03/29/2006 Provider: ?KAYLI ENGEL REPORTING MANAGER Copy to: ? Specimen/Source: ?ThinPrep Pap Test, Cervix/Endocervix, processed on Stick and Play ThinPrep Imaging System, with manual evaluation Last [...] Final Resul t [facility] [address] [place] [address] documented in this encounter Visit Diagnoses Not on filedocumented in this encounter
--- OUTSIDE RECORDS SUMMARY | 2024-02-08 17:10 | XMS_ITS | Clinical Summary ---
Author Organization [facility] Address [address] [place] [address] Care Team Providers Care Medical Appointment Clerk Name Role Phone Christine Fuentes PA-C Primary [...] Insurance [employer] MEDICARE [employer] Care Teams Medical Appointment Clerk Relationship Specialty Start Date End Date Christine Fuentes PA-C [address] [place] [phone] PCP - General 10/23/16
--- OUTSIDE RECORDS SUMMARY | 2024-02-08 17:10 | XMS_ITS | Encounter Summary ---
[place] [address] Care Team Providers Care Data Analyst Name Role Phone Unknown Primary Care Provider Unavailabl e Encounter Details Date Type Department Care Team (Late st Contact Info) Description 04/07/2021 [place] [phone] January Davis Social History Tobacco Use Types [...] on filedocumented in this encounter Care Teams Data Analyst Relationship Specialty Start Date End Date Unknown None PCP - General 10/09/19 documented as of this encounter
--- OUTSIDE RECORDS SUMMARY | 2024-02-08 17:10 | XMS_ITS | Encounter Summary ---
Author Organization [facility] Address [address] [place] [address] Care Team Providers Care Cook Helper Name Role Phone Unknown, Provider Primary Care Provider Unava ilable Encounter Details Date Type Department Care Team (Late st Contact Info) Description 11/29/2010 Results Only [facility] Laboratory Services - [facility] [place] [address] [place], [place] [phone] Kayli Engel FNP [address] [place], [place] [address] Social History Tobacco Use Types Packs/Day Years [...] ? STEVE MARX ? Accession #: ? [id number] ? : ? 1955 (Age: 55) ??F ?Collect Date: ? 11/29/2010 ? Location: ? [facility] ? Receive Date: ? 11/30/2010 ? Provider: KAYLI ENGEL RISK MANAGEMENT DIRECTOR Copy to: ? Final Report SPECIMEN ADEQUACY ? Satisfactory for Evaluation - transformation zone component present GENERAL CATEGORIZATION ? Epithelial Cell Abnormality INTERPRETATION ? Squamous Cell Abnormality - Atypical squamous cells, undetermined significance (ASC-US). EDUCATIONAL NOTES/RECOMMENDATI ONS ? [facility] recommends following the 2006 Consensus Guidelines for [...] Kayli Engel [facility] PATHOLOGY ORDERABLES Final Resul t [facility] [address] [place] [address] documented in this encounter Visit Diagnoses Not on filedocumented in this encounter Care Teams Cook Helper Relationship Specialty Start Date End Date Unknown, Provider, PCP - General 02/02/10 10/22/16 documented as of this encounter
--- OUTSIDE RECORDS SUMMARY | 2024-02-08 17:10 | XMS_ITS | Encounter Summary ---
Author Organization [facility] Address [address] [place] [address] Care Team Providers Care Freight Sales Broker Name Role Phone Christine Fuentes PA-C Primary Care Provider + Encounter Details Date Type Department Care Team (Late st Contact Info) Description 04/10/2017 Results Only [facility] [phone] Luis Ivan PA-C [address] [place] [address] Social History Tobacco Use Types [...] ? STEVE MARX ? Accession #: ? [id number] ? : ? 1955 (Age: 62) ??F [...] (ASCP) 04/11/2017 5:10 PM End of Report [facility] 04/10/2017 16:0 2 EST 04/11/2017 16:02 EST us Luis COTO-Jaden PATHOLOGY ORDERABLES Sapna l Result [facility] [address] [place] [address] documented in this encounter Visit Diagnoses Not on filedocumented in this encounter Care Teams Freight Sales Broker Relationship Specialty Start Date End Date Christine Fuentes PA-C [address] [place] [phone] PCP - General 10/23/16 documented as of this encounter
--- OUTSIDE RECORDS SUMMARY | 2024-02-08 17:10 | XMS_ITS | Encounter Summary ---
Author Organization [facility] Address [address] [place] [address] Care Team Providers Care Child Care Development Specialist Name Role Phone Unavailable Primary Care Provider Unavailabl e Encounter Details Date Type Department Care Team (Late st Contact Info) Description 11/13/2008 Orders Only [facility] Laboratory Services - [facility] ([facility]) [address], [place] [address] Kayli Engel FNP [address] [place], [place] [id number] Social History Tobacco Use Types Packs/Day Years [...] ? STEVE MARX ? Accession #: ? [id number] ? : ? 1955 (Age: 53) ??F [...] DAMON DERAS 11/13/2008 11/14/2008 us Kayli Engel TABLE SAW OPERATOR PATHOLOGY ORDERABLES Final Resul t DAMON DERAS [address] [place] [address] documented in this encounter Visit Diagnoses Not on filedocumented in this encounter
--- OUTSIDE RECORDS SUMMARY | 2024-02-08 17:10 | XMS_ITS | Encounter Summary ---
Author Organization [facility] Address [address] [place] [address] Care Team Providers Care Restrooms Or Lounges Maid Name Role Phone Unknown, Provider Primary Care Provider Unava ilable Encounter Details Date Type Department Care Team (Late st Contact Info) Description 12/05/2011 Results Only [facility] Laboratory Services - [facility] ([facility]) [address], [place] [id number] Kayli Engel FNP [address] [place], [place] [address] Social History Tobacco Use Types Packs/Day Years [...] ? STEVE MARX ? Accession #: ? [id number] : ? 1955 (Age: 56) ??F ?Collect Date: ? 12/05/2011 Location: ? [facility] ? Receive Date: ? 12/07/2011 Provider: ?KAYLI ENGEL SHRINK PIT OPERATOR Copy to: ? Specimen/Source: ?Pap Test, Cervix/Endocervix, [...] DAMON DERAS 12/05/2011 12/07/2011 us Kayli Engel SHRINK PIT OPERATOR PATHOLOGY ORDERABLES Final Resul t DAMON DERAS [address] [place] [address] documented in this encounter Visit Diagnoses Not on filedocumented in this encounter Care Teams Restrooms Or Lounges Maid Relationship Specialty Start Date End Date Unknown, Provider, PCP - General 02/02/10 10/22/16 documented as of this encounter
--- OUTSIDE RECORDS SUMMARY | 2024-02-08 17:10 | XMS_ITS | Clinical Summary ---
Author Organization [facility] Address [facility] [place] [address] Care Team Providers Care Drill Grinder Name Role Phone Unknown Primary Care Provider [...] Discontinued 08/28/2018 Medical Devices Implanted Type Area Collar Closer Lockstitch Device Identifier Shelf Expiration Date Model / Serial / Lot Breast Clip-02/02/20 17 Implanted: by Babs Duvall MD (Quantity not on file) Breast Clip Left: Breast HOLOGIC - [facility] SECURMARK FOR EVIVA TITANIUM BIOPSY SITE MARKER / / [id number] Description:cylinder Breast Clip-01/31/20 18 Implanted:12/2017 by Babs Duvall MD (Quantity not on file) Breast Clip Breast Cylinder 09/14/2018 SMARK-EVIVA- 13 / [id number] Procedures Procedure Name Priority Date/Time Associated [...] Hemoglobin A1c 5.4 4.3 - 5.6 % [facility] Comment: Reference Range: 4.3 [...] Mellitus, Diabetes Care 2013; 36: Suppl. 1, I57-59 Estimated Average Glucose 109 mg/dL [facility] Comment: eAG equivalents for [...] into estimated average glucose values. ??Diabetes Care 2008:31(8):4958-6819. Blood specimen (specimen) 08/28/2018 10:30 AM EDT 08/28/2018 10:39 AM EDT Narrative Resulting Agency Comment Spec In Lab Nella Acevedo MD CHEMISTRY ORDERABLES [facility] [place] [address] * Lipid Panel (08/28/2018 10:30 AM EDT) Cholesterol, Total 220 mg/dL [facility] Comment: Lower Risk: <200 mg/dL Average Risk: 200-239 mg/dL Higher Risk: >hz=627 mg/dL Triglyceride 172 mg/dL [facility] Comment: Average Risk/Lower Risk: <150 mg/dL Borderline High Risk: 150-199 mg/dL High Risk: 200-499 mg/dL Very High Risk: >ou=720 mg/dL HDL Cholesterol 62 mg/dL [facility] Comment: Males: ?? Higher Risk: <40 mg/dL Females: ?? HIgher Risk: <50 mg/dL LDL Cholesterol 124 mg/dL [facility] Comment: Lowest Risk: <100 mg/dL Lower Risk: 100-129 mg/dL Borderline High Risk: 130-159 mg/dL High Risk: 160-189 mg/dL Very High Risk: >eo=821 mg/dL Cholesterol/HDL Ratio 3.5 ratio [facility] Lipid Interpretation See Note [facility] Comment: Lipid management should be guided by a patient? s ASCVD risk, goals and preferences. ACC/AHA Guidelines recommend high intensity statin if clinical ASCVD or LDL greater than or equal to 190 mg/dL. http://[employer]url.com/TVZ-TPG-Vsovpvgbb Adults aged 40-75 with LDL 70-189 mg/dL should have their 10 year ASCVD risk estimated with the ACC/AHA ASCVD risk senior electrical estimator http://tools.acc.org/WMXQC-Geay-Jlswxjakz/ Statin should be discussed if risk greater [...] In Lab Nella Acevedo MD CHEMISTRY ORDERABLES [facility] [place] [address] * Mammo Screening Cad and Immanuel Bilateral [...] capacity to make decision: Yes Care Teams Drill Grinder Relationship Specialty Start Date End Date Unknown None PCP - General 10/09/19
--- OUTSIDE RECORDS SUMMARY | 2024-02-08 17:10 | XMS_ITS | Encounter Summary ---
[place] [address] Care Team Providers Care Inverted Block Operator Name Role Phone Christine Fuentes Primary Care Provider +1- [phone] Encounter Details Date Type Department Care Team (Late st Contact Info) Description 09/11/2018 [place] [phone] January Davis Social History Tobacco Use Types [...] white ?? We ordered her 3 more, [place],Silveira, and Star flower. ?? She paid for all 4 of them today with CC $145.56 ?? F/up: 08/28/18 to fruit picker machine operator the 3 we ordered today. ??[place],Silveira, and Star flower were mailed to pt and she confirmed she received them. documented in this encounter Plan of Treatment Not on file documented as of this encounter Visit Diagnoses Not on filedocumented in this encounter Care Teams Inverted Block Operator Relationship Specialty Start Date End Date Christine Fuentes PA [address] [place] [address] PCP - General Family Medicine 01/24/17 10/08/19 documented as of this encounter
--- OUTSIDE RECORDS SUMMARY | 2024-02-08 17:10 | XMS_ITS | Encounter Summary ---
Author Organization [facility] Address [address] [place] [address] Care Team Providers Care Detail Maker And Fitter Name Role Phone Unavailable Primary Care Provider Unavailabl e Encounter Details Date Type Department Care Team (Late st Contact Info) Description 10/10/2006 Results Only [facility] - Maple conversion [address] [place] [address] Kayli Engel FNP [address] [place], [place] [id number] Social History Tobacco Use Types Packs/Day Years [...] ? STEVE MARX ? Accession #: ? [id number] : ? 1955 (Age: 51) ??F ?Collect Date: ? 10/10/2006 Location: ? [facility] ? Receive Date: ? 10/12/2006 Provider: ?KAYLI ENGEL WICK TENDER Copy to: ? Specimen/Source: ?ThinPrep Pap Test, Cervix/Endocervix, processed on [employer] ThinPrep Imaging System, with manual evaluation Last [...] ORDERABLES Final Resul t DAMON DERAS [address] [place] [address] documented in this encounter Visit Diagnoses Not on filedocumented in this encounter
--- OUTSIDE RECORDS SUMMARY | 2024-02-08 17:10 | XMS_ITS | Encounter Summary ---
Author Organization [facility] Address [facility] [place] [address] Care Team Providers Care Sterilization Tech Name Role Phone Christine Fuentes Primary Care Provider +1- [phone] Reason for Visit * Reason Comments GI Problem * Consultation (Routine) - Specialty Diagnoses / Procedures Referred By Cherie abdul Referred To Contact Gastroenterology Diagnoses abdominal pain, fatty liver Procedures consult Christine Fuentes PA [address] [place] [address] Concetta Adan MD [facility] [place] [address] Referral ID Status Reason Start Date Expiration Date V isits Requested Visits Authorized [id number] 07/26/2018 07/26/2019 1 1 Encounter Details Date Type Department Care Team (Late st Contact Info) Description 08/28/2018 8:30 AM EDT Office Visit [place] [address] Bautista Mcgrath MD [facility] [place] [address] Fatty liver; Irritable bowel syndrome, unspecified type [...] Bautista Mcgrath - 08/28/2018 8:30 AM EDT [facility] Division of Gastroenterology and Hepatology Outpatient Consultation [...] evaluated once by a GI doctor in [place] where she w as diagnosed with a [...] Stereotactic Biopsy Right 01/30/2018 Babs Duvall MD [facility] RAD MAMMOGRAPHY ??? PRO BX/REMV, LYMPH NODE, DEEP AXILL Right 03/15/2018 BIOPSY OR EXCISION OF LYMPH NODE(S), OPEN, DEEP AXILLARY NODE(S) (WRVU 6.43) performed by Marla Brice MD at [facility] MAIN OR ??? PRO EXCISE BREAST LES W XRAY MARKER Left 03/30/2017 EXCISION LESION, BREAST W/ PREOP.MARKER (NEEDLE LOC.) (WRVU 6.69) performed by Marla Brice MD at [facility] OSC ??? PRO INTRAOP SENTINEL LYMPH ID W/DYE INJECTION Right 03/15/2018 INTRAOPERATIVE ID (MAPPING) SENTINEL LYMPH NODE,INCLUDES INJECTION (WRVU 2.5) performed by Marla Brice MD at [facility] MAIN OR ??? PRO MASTECTOMY, SIMPLE, COMPLETE Bilateral 03/15/2018 MASTECTOMY, SIMPLE, COMPLETE-CARITO (WRVU 15.85) performed by Marla Brice MD at [facility] MAIN OR -- section x [...] limit carbohydrates. Her other symptoms fit the [place] IV criteria for irritable bowel syndrome based [...] This case was discussed with Dr Nella Mcgraht MD Fellow in Gastroenterology and Hepatology [place] [id number] P: [phone] F: [phone] CC NNAMDI Nicole [address] [place] [address] * Nella Acevedo MD - 08/28/2018 8:30 [...] Acevedo MD Section of Gastroenterology & Hepatology [address] [place], [place] [address] documented in this encounter Procedure Notes * Nella Acevedo MD - 08/28/2018 8:30 AM EDTAssociated Order(s): FIBROSCAN Procedure(s): FIBROSCAN Pre-Procedure Diagnose(s): Fatty liver [facility] Liver Fibrosis Assessment Report Indication: Fatty liver on imaging Performed by: Nella Acevedo MD Procedure: Vibration Controlled Transient Elastography (VCTE) or Fibroscan [place] Protocol: Patient's identity, procedure and site were [...] Routine 08/28/2018 10:30 AM EDT Fatty liver [id number] Routine 08/28/2018 8:30 AM EDT Fatty liver documented in this encounter Results * Iron and TIBC (08/28/2018 10:30 AM EDT) Iron 118 30 - 150 mcg/dL [facility] TIBC 342 250 - 450 mcg/dL [facility] Iron Saturation 35 20 - 50 % [facility] Blood specimen (specimen) Venous Draw / Unknown 08/28/2018 10:30 AM EDT 08/28/2018 1:12 PM EDT Narrative Resulting Agency Comment Spec In Lab Bautista Mcgrath MD CHEMISTRY ORDERAB LES [facility] [place] [address] * Differential, Automated (08/28/2018 10:30 AM EDT) Neutrophil % 44.8 % [facility] Neutrophil Absolute 2.50 1.70 - 6.10 x10(3)/[facility] Lymph % 43.9 % [facility] Lymphocytes Abs 2.4 0.9 - 3.2 x10(3)/[facility] Monocyte % 7.7 % [facility] Monocyte Abs 0.4 0.3 - 0.9 x10(3)/[facility] Eos % 2.3 % [facility] Eosinophils Abs 0.1 0.0 - 0.4 x10(3)/[facility] Basophil % 0.9 % [facility] Baso Absolute 0.0 0.0 - 0.1 x10(3)/[facility] Immature Gran % 0.40 % [facility] Comment: Immature granulocytes(IG's)percentage and absolute count will include metamyelocytes, myelocytes, and promyelocytes. Blood smears from CBCs yielding IG's will be scanned manually for concordance. If this scan disagrees with the automated IG or if promyelocytes are noted, a manual differential will be performed. Immature Gran Absolute 0.02 0.00 - 0.04 x10(3)/[facility] Blood specimen (specimen) 08/28/2018 10:30 AM EDT 08/28/2018 10:39 AM EDT Narrative Resulting Agency Comment Spec In Lab Bautista Mcgrath MD HEMATOLOGY ORDERA BLES [facility] [place] [address] * (ABNORMAL) Hemogram (08/28/2018 10:30 AM EDT) White Blood Cell 5.6 4.0 - 9.5 x10(3)/[facility] Red Blood Cell 4.68 4.00 - 5.21 x10(6)/[facility] Hemoglobin 13.7 11.7 - 15.5 gm/dL [facility] Hematocrit 42.8 35.7 - 45.8 % [facility] Mean Cell Volume 91.5 82.6 - 94.4 fL [facility] Mean Cell Hemoglobin 29.3 27.1 - 32.0 pg [facility] Mean Cell Hemoglobin Concentration 32.0 31.7 - 35.0 gm/dL [facility] Platelet 229 145 - 357 x10(3)/mc L [facility] RDW Standard Deviation 50.4(H) 37.0 - 46.0 fL [facility] RDW coefficient of variation 14.9(H) 11.5 - 14.1 % [facility] Mean Platelet Volume 10.5 7.6 - 12.9 fL [facility] NRBC% auto 0.0 % [facility] NRBC Absolute 0.000 0.000 - 0.000 x10(3)/mc L [facility] Blood specimen (specimen) 08/28/2018 10:30 AM EDT 08/28/2018 10:39 AM EDT Narrative Resulting Agency Comment Spec In Lab Bautista Mcgrath MD HEMATOLOGY ORDERA BLES [facility] [place] [address] * Prothrombin Time (08/28/2018 10:30 AM EDT) Prothrombin Time 11.1 9.4 - 12.5 sec [facility] International Normalization Ratio 1.0 [facility] Comment: An INR <2.0 [...] Lab Nella Acevedo MD HEMATOLOGY ORDERABLE S [facility] [address] * Lipid Panel (08/28/2018 10:30 AM EDT) Cholesterol, Total 220 mg/dL [facility] Comment: Lower Risk: <200 mg/dL Average Risk: 200-239 mg/dL Higher Risk: >qn=413 mg/dL Triglyceride 172 mg/dL [facility] Comment: Average Risk/Lower Risk: <150 mg/dL Borderline High Risk: 150-199 mg/dL High Risk: 200-499 mg/dL Very High Risk: >sf=208 mg/dL HDL Cholesterol 62 mg/dL [facility] Comment: Males: ?? Higher Risk: <40 mg/dL Females: ?? HIgher Risk: <50 mg/dL LDL Cholesterol 124 mg/dL [facility] Comment: Lowest Risk: <100 mg/dL Lower Risk: 100-129 mg/dL Borderline High Risk: 130-159 mg/dL High Risk: 160-189 mg/dL Very High Risk: >lm=266 mg/dL Cholesterol/HDL Ratio 3.5 ratio [facility] Lipid Interpretation See Note [facility] Comment: Lipid management should be guided by a patient? s ASCVD risk, goals and preferences. ACC/AHA Guidelines recommend high intensity statin if clinical ASCVD or LDL greater than or equal to 190 mg/dL. http://tinyurl.com/CWI-WOU-Pcysasvko Adults aged 40-75 with LDL 70-189 mg/dL should have their 10 year ASCVD risk estimated with the ACC/AHA ASCVD risk mat inspector http://tools.acc.org/WWAHX-Fxkk-Sqbozxubu/ Statin should be discussed if risk greater [...] In Lab Nella Acevedo MD CHEMISTRY ORDERABLES [facility] [place] [address] * Hemoglobin A1c (08/28/2018 10:30 AM EDT) Hemoglobin A1c 5.4 4.3 - 5.6 % [facility] Comment: Reference Range: 4.3 [...] Mellitus, Diabetes Care 2013; 36: Suppl. 1, A47-39 Estimated Average Glucose 109 mg/dL [facility] Comment: eAG equivalents for [...] into estimated average glucose values. ??Diabetes Care 2008:31(8):5435-0719. Blood specimen (specimen) 08/28/2018 10:30 AM EDT 08/28/2018 10:39 AM EDT Narrative Resulting Agency Comment Spec In Lab Nella Acevedo MD CHEMISTRY ORDERABLES [facility] [address] * (ABNORMAL) Basic Metabolic Panel (non-fasting) (08/28/2018 10:30 AM EDT) Glucose 102 65 - 199 mg/dL [facility] Comment:Diabetes: >=200 mg/d L plus symptoms Blood Urea Nitrogen 21(H) 8 - 18 mg/dL [facility] Creatinine 0.93 0.70 - 1.20 mg/dL [facility] Sodium 142 135 - 145 mmol/L [facility] Potassium 4.5 3.5 - 5.0 mmol/L [facility] Comment: Please note: ??Patients with WBC >100,000 may have falsely elevated Potassium levels. ??For accurate Potassium quantification in these patients send serum separator tube (gold top) for subsequent determinations. ??Contact the Clinical Chemistry Laboratory if there are any questions. Chloride 107 98 - 107 mmol/L [facility] Carbon Dioxide 22 22 - 31 mmol/L [facility] Anion Gap 13 5 - 15 mmol/L [facility] Calcium 9.3 8.5 - 10.5 mg/dL [facility] Est Glomerular Filtration Rate 66 >=60 mL/min/1. 73 m?? [facility] Comment: The eGFR was calculated using the CKD-EPI equation. As with all creatinine based estimates of kidney function, eGFR values calculated with the CKD-EPI equation are not accurate in patients with acute kidney failure, extremes of body mass or the acutely ill. http://Consumer Agent Portal (CAP)/[facility] eGFR 76 >=60 mL/min/1. 73 m?? [facility] Comment: The eGFR was calculated using the CKD-EPI equation. As with all creatinine based estimates of kidney function, eGFR values calculated with the CKD-EPI equation are not accurate in patients with acute kidney failure, extremes of body mass or the acutely ill. http://Consumer Agent Portal (CAP)/[facility] Blood specimen (specimen) 08/28/2018 10:30 AM EDT 08/28/2018 10:39 AM EDT Narrative Resulting Agency Comment Spec In Lab Nella Acevedo MD CHEMISTRY ORDERABLES Performing Organization Address [facility] Co de Phone Number [facility] [place] [address] * (ABNORMAL) Hepatic Function Panel (08/28/2018 10:30 AM EDT) Protein, Total 7.7 6.1 - 8.0 gm/dL [facility] Albumin 4.3 3.2 - 5.2 gm/dL [facility] Aspartate Aminotransferase 31(H) 0 - 30 unit/L [facility] Alanine Aminotransferase 33(H) 0 - 30 unit/L [facility] Alkaline Phosphatase 74 40 - 104 unit/L [facility] Bilirubin, Total 0.4 0.2 - 1.3 mg/dL [facility] Bilirubin, Direct 0.1 0.0 - 0.3 mg/dL [facility] Blood specimen (specimen) 08/28/2018 10:30 AM EDT 08/28/2018 10:39 AM EDT Narrative Resulting Agency Comment Spec In Lab Nella Acevedo MD CHEMISTRY ORDERABLES Performing Organization Address City/[facility] Co de Phone Number [facility] [place] [address] * [id number] (08/28/2018 8:30 AM EDT) Bautista Pendleton - 08/28/2018 8:30 AM EDT Nella Acevedo MD ? 08/28/2018 ??1:08 PM [facility] Liver Fibrosis Assessment Report Indication: ??Fatty liver on imaging Performed by: ??Nella Acevedo MD Procedure: Vibration Controlled Transient Elastography (VCTE) or Fibroscan [place] Protocol: Patient's identity, procedure and site were [...] type documented in this encounter Care Teams Sterilization Tech Relationship Specialty Start Date End Date Christine Fuentes PA [address] [place] [address] PCP - General Family Medicine 01/24/17 10/08/19 documented as of this encounter
--- OUTSIDE RECORDS SUMMARY | 2024-02-08 17:10 | XMS_ITS | Encounter Summary ---
[place] [address] Care Team Providers Care Manager Environmental Health Name Role Phone Christine Fuentes Primary Care Provider +1- [phone] Encounter Details Date Type Department Care Team (Late st Contact Info) Description 04/19/2019 9:30 [place] [address] January Davis Social History Tobacco Use Types [...] - 04/19/2019 9:30 AM EST Cecilia Marx [id number] 1955 Referring Physician: Shazia Boyd APN Previous Fitting: [facility] 04/10/18 Insurance: of [place] Prescription: Yes Diagnoses:right breast cancer Date of [...] of surgery. Delivered today:04.19.[address] [facility] Manufacture Model L/R Quantity L8030 ABC 93494-49 L 1 L8030 ABC 28741-96 R 1 Bra - Our goal is to provide adequate measurement to reach the best comfort possible for different life styles, and we determine that with our client that the bra described below are meeting her needs according to her type of surgery and life style. Delivered today: [facility] Manufacture Model L/R Quantity L8000 ABC 960-XL-BH 1 L8000 ABC 960-XL-BK 1 L8000 ABC 525-42B-WH 1 L8000 ABC 525-42B-BK 1 L8000 ABC [id number] 1 To Order:N/A Follow up: PRN Payment Info: paid $879.19 w/ CC to [facility], This will be submitted toward deductible. Retail: $100.00 for the sonia's -paid with cc to [facility]. (This was paid all in one transaction of $979.19) Delivery date: 04.19.2019 Cecilia agrees to this plan. documented in this encounter Plan of Treatment Not on file documented as of this encounter Visit Diagnoses Not on filedocumented in this encounter Care Teams Manager Environmental Health Relationship Specialty Start Date End Date Christine Fuentes PA [address] [place] [address] PCP - General Family Medicine 01/24/17 10/08/19 documented as of this encounter
--- OUTSIDE RECORDS SUMMARY | 2024-02-08 17:10 | XMS_ITS | Encounter Summary ---
[place] [address] Care Team Providers Care Manager Bar Name Role Phone Christine Fuentes Primary Care Provider +1- [phone] Encounter Details Date Type Department Care Team (Late st Contact Info) Description 01/28/2019 Telephone Hematology [place] [phone] Serena Tran Social History Tobacco Use Types [...] filedocumented in this encounter Care Teams Manager Bar Relationship Specialty Start Date End Date Christine Fuentes PA [address] [place] [address] PCP - General Family Medicine 01/24/17 10/08/19 documented as of this encounter
--- OUTSIDE RECORDS SUMMARY | 2024-02-08 17:10 | XMS_ITS | Encounter Summary ---
Author Organization [facility] [place] [address] Care Team Providers Care Canal Lock Tender Chief Operator Name Role Phone Unknown Primary Care Provider Unavailabl e Encounter Details Date Type Department Care Team (Late st Contact Info) Description 11/26/2019 11:10 AM EDT Office [place] [address] Shazia Boyd, PROFESSIONAL SPORTS SCOUT [facility] [place] [address] History of breast cancer Social History Tobacco [...] positive cells,, ER+/IA+ pTNM: ---(m)Tis N0 (AJCC) Left breast, mastectomy: [...] breast documented in this encounter Care Teams Canal Lock Tender Chief Operator Relationship Specialty Start Date End Date Unknown None PCP - General 10/09/19 documented as of this encounter
--- OUTSIDE RECORDS SUMMARY | 2024-02-08 17:10 | XMS_ITS | Referral Summary ---
Author Organization [facility] Address [address] [place] [address] Care Team Providers Care Ad Copy Writer Name Role Phone Christine Fuentes PA-C Primary [...] file [place] [id number] Care Teams Ad Copy Writer Relationship Specialty Start Date End Date Christine Fuentes PA-C [address] [place] [phone] PCP - General 10/23/16
--- OUTSIDE RECORDS SUMMARY | 2024-02-08 17:10 | XMS_ITS | Encounter Summary ---
[place] [address] Care Team Providers Care Recreational Therapy Technician Name Role Phone Christine Fuentes Primary Care Provider +1- [phone] Encounter Details Date Type Department Care Team (Late st Contact Info) Description 04/19/2019 Orders [place] [address] Christina Fay, RN Malignant neoplasm of right [...] breast documented in this encounter Care Teams Recreational Therapy Technician Relationship Specialty Start Date End Date Christine Fuentes PA [address] [place] [address] PCP - General Family Medicine 01/24/17 10/08/19 documented as of this encounter
--- OUTSIDE RECORDS SUMMARY | 2024-02-08 17:10 | XMS_ITS | Encounter Summary ---
Author Organization [facility] Address [address] [place] [address] Care Team Providers Care Supervisor Winding Department Name Role Phone Christine Fuentes PA-C Primary Care Provider + Encounter Details Date Type Department Care Team (Late st Contact Info) Description 01/22/2021 Lab Requisition [facility] Pathology & Laboratory Medicine - [address] [address] Katie Leyva MD [address] [place] [address] [address] [place], [place] [address] Encounter for other general examination Social History [...] Risk types, PCR Negative Negative 02/02/2021 11:04 [facility] Comment:No E6 or E7 mRNA is detected from HPV types 16,18,31,33,35,39,45,51,52,56,58,59,66, and 68 by supervisor metal furniture assembly mediated amplification. Papanicolaou smear specimen (specimen) CERVIX UTERI STRUCTURE / Unknown 01/21/2021 9:45 EST 01/28/2021 12:05 EST us Katie Leyva MD MICROBIOLOGY - GENERAL ORDERAB LES Final Result [facility] [address] [place] [address] * PAP TEST (01/21/2021 9:45 EST) Specimens A. Cervix and/or Endocervix , ThinPrep Imaging System with Manual Evaluation 02/02/2021 11:04 [facility] Specimen Adequacy Satisfactory for Evaluation - transformation zone component present 02/02/2021 11:04 [facility] General Categorization Negative for intraepithelial lesion or malignancy 02/02/2021 11:04 [facility] Attestation . 02/02/2021 11:04 [facility] at 1104 Clinical History See below 02/03/20 11:04 [facility] HPV The result for the Human Papillomavirus (HPV) Detection-High Risk Types is Negative. No E6 or E7 mRNA is detected from HPV types 16,18,31,33,35,39 ,45,51,52,56,58,5 9,66, and 68 by supervisor metal furniture assembly mediated amplification.Harriett ting was performed on specimen [id number] and was resulted on 02/02/2021 0921 EST by IVORY, LAB INSTRUMENT RESULTS IN 02/02/2021 11:04 [facility] Performing Lab [facility] 02/02/2021 11:04 EST [facility] Scanned Images 02/02/2021 11:04 EST [facility] Papanicolaou smear specimen (specimen) CERVIX UTERI STRUCTURE / Unknown 01/21/2021 9:45 EST 01/22/2021 13:54 EST us Katie Leyva MD PATHOLOGY ORDERABLES Final Res ult [facility] [address] [place] [address] documented in this encounter Visit Diagnoses Diagnosis Encounter for other general examination documented in this encounter Care Teams Supervisor Winding Department Relationship Specialty Start Date End Date Christine Fuentes PA-C [address] [place] [phone] PCP - General 10/23/16 documented as of this encounter
--- OUTSIDE RECORDS SUMMARY | 2024-02-08 17:10 | XMS_ITS | Encounter Summary ---
Author Organization [facility] Address [address] [place] [address] Care Team Providers Care Dynamo Repairer Name Role Phone Unavailable Primary Care Provider Unavailabl e Encounter Details Date Type Department Care Team (Late st Contact Info) Description 09/29/2005 Results Only [facility] - Maple conversion [address] [place] [address] Yasemin Selby MD [address] [place] [address] [place] [address] Social History Tobacco Use Types Packs/Day Years [...] ? STEVE MARX ? Accession #: ? [id number] ? : ? 1955 (Age: 50) ??F [...] (B) are also examined. Previous Pap smear ([id number]) was reviewed by Dr. Sally Pablo, and the presence of low grade squamous intraepithelial lesion was confirmed. However, the atypical cells seen on the Pap smear are not seen in the current cervical biopsy or endocervical curettage specimen. This case was reviewed by Dr. Sally Pablo, and was also presented at the intradepartmental consultation conference. ??(Dr. Zambrano)/[facility] Document reviewed and electronically signed by: Jameson [...] Final Resu lt [facility] [address] [place] [address] documented in this encounter Visit Diagnoses Not on filedocumented in this encounter
--- OUTSIDE RECORDS SUMMARY | 2024-02-08 17:10 | XMS_ITS | Encounter Summary ---
Author Organization [facility] Address [address] [place] [address] Care Team Providers Care Testing And Regulating Chief Name Role Phone Ernie Marcos PA-C Primary Care Provider + Encounter Details Date Type Department Care Team ([facility] st Contact Info) Description 01/06/2017 Results Only [facility] [phone] Ernie Marcos PA-C [address] [place] [address] Social History Tobacco Use Types Packs/Day Years [...] ? STEVE MARX ? Accession #: ? [id number] ? : ? 1955 (Age: 61) ??F [...] and electronically signed by: ? Whitney You [facility](ASCP) ? Report ??Date: 01/20/2017 13:37 HPV with Pap Test ? Date Ordered: ? 01/20/2017 ? Status: ?? Signed Out ?Date Complete: ? 01/23/2017 ? By: ??System Interface ? Date Reported: ? 01/23/2017 ? Interpretation RESULT: Negative for HPV. No E6 or E7 mRNA is detected from HPV types 16,18,31,33,35, 39,45,51,52,56,58, 59,66, and 68 by policy advisor mediated amplification. Comments Document reviewed and electronically signed by: ? System Interface ? Report date: 01/23/2017 By the signature above, the attending physician certifies that he/she has personally conducted a gross and/or microscopic examination of the described specimens and rendered or confirmed the above diagnosis. End of Report [facility] 01/06/2017 01/10/2017 us Ernie Marcos PA-C PATHOLOGY ORDERABLES Fin al Result [facility] [address] [place] [address] documented in this encounter Visit Diagnoses Not on filedocumented in this encounter Care Teams Testing And Regulating Chief Relationship Specialty Start Date End Date Ernie Marcos PA-C [address] [place] [phone] PCP - General 10/23/16 documented as of this encounter
--- OUTSIDE RECORDS SUMMARY | 2024-02-08 17:10 | XMS_ITS | Encounter Summary ---
Author Organization [facility] [place] [address] Care Team Providers Care Staff Radiographer Name Role Phone Christine Fuentes Primary Care Provider +1- [phone] Encounter Details Date Type Department Care Team (Late st Contact Info) Description 08/29/2018 Orders [place] [address] [facility] [place] [address] Fatty liver Social History Tobacco Use Types [...] disease documented in this encounter Care Teams Staff Radiographer Relationship Specialty Start Date End Date Christine Fuentes PA [address] [place] [address] PCP - General Family Medicine 01/24/17 10/08/19 documented as of this encounter
--- OUTSIDE RECORDS SUMMARY | 2024-02-08 17:10 | XMS_ITS | Encounter Summary ---
Author Organization [facility] Address [address] [place] [address] Care Team Providers Care Meal Grinder Tender Name Role Phone Christine Fuentes PA-C Primary Care Provider + Encounter Details Date Type Department Care Team (Late st Contact Info) Description 09/01/2022 Lab Requisition [facility] Pathology & Laboratory Medicine - [address] [address] Treva De Jesus MD [address] [place] [phone] Encounter for other general examination Social History [...] explore management options, if applicable. 09/02/2022 8:16 [facility] Final Diagnosis A. SKIN OF UMBILICUS, LEFT SIDE, SHAVE BIOPSY: - Seborrheic keratosis. B. SKIN OF THIGH, LEFT, SHAVE BIOPSY: - Squamous cell carcinoma, well-differentiat ed, superficially invasive, encompassed within the examined sections. 09/02/2022 8:16 [facility] Attestation By the signature below, the attending physician certifies that they have 1) personally conducted a gross and/or microscopic examination of the described specimen(s), and/or personally interpreted the results of laboratory testing of the described specimen(s), and 2) personally rendered or confirmed the above diagnosis. 09/02/2022 8:16 [facility] at 0816 Clinical History Nevus L side umbilicus, pedunculated; Neoplasm of uncertain behavior L thigh 09/02/2022 8:16 [facility] Gross Description A. [...] is trisected and entirely submitted in B1. NANMDI JONES(ASCP) 09/01/2022 11:51 09/02/2022 8:16 [facility] Performing Lab [facility] 09/02/2022 8:16 [facility] Scanned Images 09/02/2022 8:16 EDT [facility] Tissue TISSUE SPECIMEN FROM SKIN / Unknown 08/31/2022 8:30 EDT 09/01/2022 7:50 EDT Tissue specimen (specimen) SPECIMEN FROM SKIN / Unknown 08/31/2022 8:30 EDT 09/01/2022 7:50 EDT us Treva De Jesus MD PATHOLOGY ORDERABLES Final Res ult [facility] [address] [place] [address] documented in this encounter Visit Diagnoses Diagnosis Encounter for other general examination documented in this encounter Care Teams Meal Grinder Tender Relationship Specialty Start Date End Date Christine Fuentes PA-C [address] [place] [phone] PCP - General 10/23/16 documented as of this encounter
--- OUTSIDE RECORDS SUMMARY | 2024-02-08 17:10 | XMS_ITS | Encounter Summary ---
[place] [address] Care Team Providers Care Dust Collector Ore Crushing Name Role Phone Christine Fuentes Primary Care Provider +1- [phone] Encounter Details Date Type Department Care Team (Late st Contact Info) Description 04/10/2018 9:30 [place] [address] January Davis Social History Tobacco Use Types [...] 04/10/2018 9:30 AM EST Cecilia Marx 1955 [id number] Prescription Received:Yes Insurance: Private Previous Fitting: First [...] Stock Ordered Delivery Date Type L8030 ABC [id number] 2 Y 2.19.19 Naselle L8020 ABC 929-08-BH 2 N 2.19.19 3.5.19 Naselle L8000 ABC [id number]-BE 1 Y 2.19.19 BRA L8000 ABC [id number]-Tewfxj 1 Y 2.19.19 BRA L8000 ABC 110-L-C/D-MINT [...] on filedocumented in this encounter Care Teams Dust Collector Ore Crushing Relationship Specialty Start Date End Date Christine Fuentes PA [address] [place] [address] PCP - General Family Medicine 01/24/17 10/08/19 documented as of this encounter
--- OUTSIDE RECORDS SUMMARY | 2024-02-08 17:10 | XMS_ITS | Encounter Summary ---
Author Organization [facility] [place] [address] Care Team Providers Care Wheel Of Fortune Dealer Name Role Phone Christine Fuentes Primary Care Provider +1- [phone] Encounter Details Date Type Department Care Team (Late st Contact Info) Description 04/30/2018 Telephone [place] [address] Chantelle Foote RN Social History Tobacco Use [...] General Surgery Nurses line. Cec[place]. She [...] or she can come [place] [facility] She notes some times wearing the bra can put pressure on the healing areas increasing irritation. I called Cecilia back and let her know all of this information, she agrees with the plan. I will share this note with Cecilia's primary care provider also. Delon Tyson MD routed this conversation to Marla Brice MD ??? [facility] Delon Tyson MD ?? 04/29/18 11:55 AM [...] ?? Robert Tyson Vascular Surgery, PGY3 Pager #[phone] documented in this encounter Plan of Treatment Not on file documented as of this encounter Visit Diagnoses Not on filedocumented in this encounter Care Teams Wheel Of Fortune Dealer Relationship Specialty Start Date End Date Christine Fuentes PA [address] [place] [address] PCP - General Family Medicine 01/24/17 10/08/19 documented as of this encounter
--- OUTSIDE RECORDS SUMMARY | 2024-02-08 17:10 | XMS_ITS | Encounter Summary ---
[place] [address] Care Team Providers Care Proposal Manager Writer Name Role Phone Christine Fuentes Primary Care Provider +1- [phone] Encounter Details Date Type Department Care Team (Late st Contact Info) Description 04/10/2018 Orders [place] [address] Whitney Lewis RN Malignant neoplasm of right [...] breast documented in this encounter Care Teams Proposal Manager Writer Relationship Specialty Start Date End Date Christine Fuentes PA [address] [place] [address] PCP - General Family Medicine 01/24/17 10/08/19 documented as of this encounter
--- OUTSIDE RECORDS SUMMARY | 2024-02-08 17:10 | XMS_ITS | Encounter Summary ---
Author Organization [facility] Address [address] [place] [address] Care Team Providers Care Geophysical Data Technician Name Role Phone Unknown, Provider Primary Care Provider Unava ilable Encounter Details Date Type Department Care Team (Late st Contact Info) Description 12/11/2013 Results Only [facility] - [facility] [address] [place], [place] [id number] Kayli Engel FNP [address] [place], [place] [address] Social History Tobacco Use Types Packs/Day Years [...] ? STEVE MARX ? Accession #: ? [id number] : ? 1955 (Age: 58) ??F ?Collect Date: ? 12/11/2013 Location: ? [facility] ? Receive Date: ? 12/13/2013 Provider: ?KAYLI ENGEL RESIDENCE LIFE COORDINATOR Copy to: ? Specimen/Source: ?Pap Test, Cervix/Endocervix, [...] [facility] 12/11/2013 12/13/2013 us Kayli Engel RESIDENCE LIFE COORDINATOR PATHOLOGY ORDERABLES Final Resul t [facility] [address] [place] [address] documented in this encounter Visit Diagnoses Not on filedocumented in this encounter Care Teams Geophysical Data Technician Relationship Specialty Start Date End Date Unknown, Provider, PCP - General 02/02/10 10/22/16 documented as of this encounter
--- OUTSIDE RECORDS SUMMARY | 2024-02-08 17:10 | XMS_ITS | Encounter Summary ---
Author Organization [facility] Address [address] [place] [address] Care Team Providers Care Shed Boss Name Role Phone Christine Fuentes PA-C Primary Care Provider + Encounter Details Date Type Department Care Team (Late st Contact Info) Description 05/10/2023 Lab Requisition [facility] Pathology & Laboratory Medicine - [address] [address] Outr Resulting Lab, Provider Social History Tobacco [...] 97 - 169 ng/dL 05/10/2023 22:23 EDT [facility] Blood VENOUS BLOOD / Unknown 05/10/2023 9:05 EDT 05/10/2023 21:33 EDT us Provider Outr Resulting Lab CHEMISTRY & BLOOD GA S ORDERABLES Final Result [facility] [address] [place], [place] [phone] documented in this encounter Visit Diagnoses Not on filedocumented in this encounter Care Teams Shed Boss Relationship Specialty Start Date End Date Christine Fuentes PA-C [address] [place] [phone] PCP - General 10/23/16 documented as of this encounter
--- OUTSIDE RECORDS SUMMARY | 2024-02-08 17:10 | XMS_ITS | Encounter Summary ---
Author Organization [facility] Address [address] [place] [address] Care Team Providers Care Bladder Trimmer Name Role Phone Unknown, Provider Primary Care Provider Unava ilable Encounter Details Date Type Department Care Team ([facility] st Contact Info) Description 09/08/2005 Results Only [facility] - Maple conversion [address] [place] [address] Ernie Fuentes PA-C [address] [place] [address] Social History Tobacco Use Types Packs/Day Years [...] ? STEVE MARX ? Accession #: ? [id number] : ? 1955 (Age: 50) ??F ?Collect Date: ? 09/08/2005 Location: ? [facility] ? Receive Date: ? 09/13/2005 Provider: ?ERNIE COTO Copy to: ? Specimen/Source: ?ThinPrep Pap Test, Cervix/Endocervix, processed on Well[employer] ThinPrep Imaging System, with manual evaluation Last [...] intraepithelial lesion (LSIL). EDUCATIONAL NOTES/RECOMMENDATI ONS ? [facility] recommends following the 2001 Consensus Guidelines for the Management of Women with Cervical Cytological Abnormalities (UGO,2002;287:212 0-9). Management algorithms have been distributed by [facility] and are available online at www.ASCCP.org. ? Document reviewed and electronically signed by: ? PHILOMENA PEARL MD ? Report Date: ??09/15/2005 14:56 End of Report [facility] 09/08/2005 09/13/2005 us Ernie Fuentes PA-C PATHOLOGY ORDERABLES Fin al Result [facility] [address] [place] [address] documented in this encounter Visit Diagnoses Not on filedocumented in this encounter Care Teams Bladder Trimmer Relationship Specialty Start Date End Date Unknown, Provider, PCP - General 02/02/10 10/22/16 documented as of this encounter
--- OUTSIDE RECORDS SUMMARY | 2024-02-08 17:10 | XMS_ITS | Encounter Summary ---
[place] [address] Care Team Providers Care Deputy Juvenile Officer Name Role Phone Christine Fuentes Primary Care Provider +1- [phone] Encounter Details Date Type Department Care Team (Late st Contact Info) Description 05/10/2018 Telephone [place] [phone] Christina Fay, RN Social History Tobacco Use [...] 1955 CALLER: Pt to the General Surgery [facility] Learning Needs Assessment Reviewed: Yes SUBJECTIVE - I had a double mastectomy and I need a root canal is that okay? PERTINENT PAST MEDICAL HISTORY: PT is s/p Patient Name: Cecilia Marx : [id number] MR#: [id number] ?? Case Date: 03/15/2018 ?? Surgeon: Surgeon(s) and Role: * Marla Brice MD - Primary * Sera Weller MD - Resident-Fire Warden * Vu Angela MD - Resident-Surgeon Tonny [...] on filedocumented in this encounter Care Teams Deputy Juvenile Officer Relationship Specialty Start Date End Date Christine Fuentes PA [address] [place] [address] PCP - General Family Medicine 01/24/17 10/08/19 documented as of this encounter
--- OUTSIDE RECORDS SUMMARY | 2024-02-08 17:10 | XMS_ITS | Encounter Summary ---
[place] [address] Care Team Providers Care Chain Maker Machine Name Role Phone Unknown Primary Care Provider Unavailabl e Reason for Referral * Consultation (Routine) - Closed Specialty Diagnoses / Procedures Referred By Contac t Referred To Contact Neurology Diagnoses Tremor Treva De Jesus MD [address] [place] [address] [facility] [address] [place] [phone] Referral ID Status Reason Start Date Expiration Date V isits Requested Visits Authorized [id number] Closed Consult, Test & Treat PCP Updated and/or Approved 03/16/2023 03/15/2024 6 6 Encounter Details Date Type Department Care Team (Late st Contact Info) Description 03/16/2023 Transcribe Orders eDH Incoming Referrals [phone] Treva De Jesus MD [address] [place] [address] Tremor Social History Tobacco Use [...] movements documented in this encounter Care Teams Chain Maker Machine Relationship Specialty Start Date End Date Unknown None PCP - General 10/09/19 documented as of this encounter
--- OUTSIDE RECORDS SUMMARY | 2024-02-08 17:10 | XMS_ITS | Encounter Summary ---
[place] [address] Care Team Providers Care Floor Scraper Name Role Phone Christine Fuentes Primary Care Provider +1- [phone] Encounter Details Date Type Department Care Team (Late st Contact Info) Description 04/24/2018 3:30 PM [place] [address] January Davis Social History Tobacco Use Types [...] for f/up today. She is here to picker and packer items ordered for her on 04/10/18 Patient Cecilia Marx 1.24.57 DX Right br ca C50.911 [facility] L8020 Products 929-08 Quantity 1 Ordering Marla Brice Self Pay petroleum inspector supervisor date 04.24.18 Delivered today: 110 bra beige 110 bra black 929-08 X2 See 04/10/18 note for fitting details Paid with card on 04.10.18 $180.52 documented in this encounter Plan of Treatment Not on file documented as of this encounter Visit Diagnoses Not on filedocumented in this encounter Care Teams Floor Scraper Relationship Specialty Start Date End Date Christine Fuentes PA [address] [place] [address] PCP - General Family Medicine 01/24/17 10/08/19 documented as of this encounter
--- OUTSIDE RECORDS SUMMARY | 2024-02-08 17:10 | XMS_ITS | Encounter Summary ---
[place] [address] Care Team Providers Care Machine Builder Name Role Phone Christine Fuentes Primary Care Provider +1- [phone] Encounter Details Date Type Department Care Team (Late st Contact Info) Description 02/26/2019 2:30 PM [place] [address] January Davis Social History Tobacco Use Types [...] a Camisole. We fit her to the [id number]. She likes it. She is ready for new bras and forms but will come back in March to do that. $50.00 Paid by to [facility] documented in this encounter Plan of Treatment Not on file documented as of this encounter Visit Diagnoses Not on filedocumented in this encounter Care Teams Machine Builder Relationship Specialty Start Date End Date Christine Fuentes PA [address] [place] [address] PCP - General Family Medicine 01/24/17 10/08/19 documented as of this encounter
--- OUTSIDE RECORDS SUMMARY | 2024-02-08 17:10 | XMS_ITS | Encounter Summary ---
Author Organization [facility] [place] [address] Care Team Providers Care Measurement Supervisor Name Role Phone Christine Fuentes Primary Care Provider +1- [phone] Encounter Details Date Type Department Care Team (Late st Contact Info) Description 04/29/2018 Telephone [place] [phone] Delon Tyson MD Social History Tobacco Use Types Packs/Day [...] concerns. Robert Tyson Vascular Surgery, PGY3 Pager #[phone] documented in this encounter Plan of Treatment Not on file documented as of this encounter Visit Diagnoses Not on filedocumented in this encounter Care Teams Measurement Supervisor Relationship Specialty Start Date End Date Christine Fuentes PA [address] [place] [address] PCP - General Family Medicine 01/24/17 10/08/19 documented as of this encounter
--- OUTSIDE RECORDS SUMMARY | 2024-02-08 17:10 | XMS_ITS | Encounter Summary ---
Author Organization [facility] Address [address] [place] [address] Care Team Providers Care Extruder Operator Multiple Name Role Phone Christine Fuentes PA-C Primary Care Provider + Reason for Visit * Reason Comments Flank Pain sudden onset 20 min WIRE SAWYER of severe L flank pain. 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 Hx of kidney stones Encounter Details Date Type Department Care Team (Late st Contact Info) Description 10/23/2016 16:20 EDT - 10/23/2016 19:42 EDT Emergency [facility] Emergency Department - [address] [address] Luis Orantes MD [address] [place] [address], Level [address] [place] [address] Emergency, MD Tolu Flank pain [...] Personal history of urinary calculi-Z87.442[ICD-10-CM] Z79.899 Other coin dealer (current) drug therapy-Z79.899[ICD-10-CM] Z79.82 half-way (current) use of aspirin-Z79.82[ICD-10-CM] Z88.3 Allergy status [...] sent through Care Everywhere. * ABDOMINAL PAIN (CZECH) documented in this encounter Medications at Time [...] ??? Flank Pain sudden onset 20 min WIRE SAWYER of severe L flank pain. 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 Hx of kidney stones HPI The patient is a 61 y.o. female who presents today with Flank Pain (sudden onset 20 min WIRE SAWYER of severe L flank pain. Skin pale, [...] onset, patient was in heated argument with [id number]. She endorses several days of subjective inability [...] Bilirubin Neg Final Ketones Neg Final Specific [place] 1.025 Final pH 5.5 Final Protein Neg Final Urobilinogen 0.2 Final Nitrite Neg Final Tech ID [id number] Final Relevant Data Procedures ED COURSE A medical screening exam was performed. The patient is a 61 y.o. female, who presents with sudden onset of left flank pain 30 minutes WIRE SAWYER. She has history of passing a kidney [...] Christine Fuentes [facility] Number of Diagnoses or Management Options new, [...] 11:35 EDT Narrative 10/25/2016 11:35 EDT [facility] - Ultrasound Exam Date: 10/23/2016 Exam Type: POCT US ARTERIAL Airport Skilled Maintenance Supervisor: Luis Orantes MD Attending: Luis Orantes MD [...] Note Luis Orantes MD - 10/25/2016 [facility] - Ultrasound Exam Date: 10/23/2016 Exam Type: POCT US ARTERIAL Airport Skilled Maintenance Supervisor: Luis Orantes MD Attending: Luis Orantes MD [...] (10/23/2016 18:10 EDT) Color YELLOW 10/23/2016 18:19 [facility] Clarity, UA Clear 10/23/2016 18:19 [facility] Glucose Neg Neg 10/23/2016 18:19 [facility] Bilirubin Neg Neg 10/23/2016 18:19 [facility] Ketones Neg Neg 10/23/2016 18:19 [facility] Specific [place] 1.025 1.001 - 1.035 10/23/2016 18:19 [facility] Blood 2+(A) Neg 10/23/2016 18:19 [facility] pH 5.5 4.6 - 8.0 10/23/2016 18:19 [facility] Protein Neg Neg 10/23/2016 18:19 [facility] Urobilinogen 0.2 0.2 - 1.0 E.U./dl 10/23/2016 18:19 [facility] Nitrite Neg Neg 10/23/2016 18:19 [facility] Leuk Esterase Trace(A) Neg 10/23/2016 18:19 [facility] police inspector ID [id number] 10/23/2016 18:19 [facility] Comment:Test performed at Em ergency Department Urine specimen (specimen) URINE / Unknown 10/23/2016 18:10 EDT 10/23/2016 18:19 EDT us Luis Orantes MD POINT OF CARE TEST ORDERA BLES Final Result [facility] [address] [place] [address] * POCT US RENAL (10/23/2016 17:43 EDT) Anatomical Region Laterality Modality Other 10/23/2016 17:4 3 EDT 10/25/2016 11:34 EDT Narrative 10/25/2016 11:34 EDT [facility] - Ultrasound Exam Date: 10/23/2016 Exam Type: POCT US RENAL Airport Skilled Maintenance Supervisor: Luis Orantes MD Attending: Luis Orantes MD [...] Note Luis Orantes MD - 10/25/2016 [facility] - Ultrasound Exam Date: 10/23/2016 Exam Type: POCT US RENAL Airport Skilled Maintenance Supervisor: Luis Orantes MD Attending: Luis Orantes MD [...] 10/23/2016 documented in this encounter Care Teams Extruder Operator Multiple Relationship Specialty Start Date End Date Christine Fuentes PA-C [address] [place] [phone] PCP - General 10/23/16 documented as of this encounter
--- OUTSIDE RECORDS SUMMARY | 2024-02-08 17:10 | XMS_ITS | Encounter Summary ---
Author Organization [facility] Address [address] [place] [address] Care Team Providers Care Marking Stitcher Name Role Phone Unavailable Primary Care Provider Unavailabl e Encounter Details Date Type Department Care Team (Late st Contact Info) Description 10/29/2007 Before PRISM Converted Visit (Maple) [facility] Maple conversion [address] [place] [address] Kayli Engel FNP [address] [place], [place] [id number] Social History Tobacco Use Types Packs/Day Years [...] ? STEVE MARX ? Accession #: ? [id number] ? : ? 1955 (Age: 52) ??F [...] [facility] 10/29/2007 10/30/2007 us Kayli Engel FAMILY RESOURCE SPECIALIST PATHOLOGY ORDERABLES Final Resul t [facility] [address] [place] [address] documented in this encounter Visit Diagnoses Not on filedocumented in this encounter
--- OUTSIDE RECORDS SUMMARY | 2024-02-08 17:11 | XMS_ITS | Encounter Summary ---
[place] [address] Care Team Providers Care Pediatric Cardiologist Name Role Phone Christine Fuentes Primary Care Provider +1- [phone] Reason for Visit * Auth/Cert Specialty Diagnoses [...] Expiration Date Visits Re quested Visits Authorized [id number] 1 1 Encounter Details Date Type Department Care Team (Late st Contact Info) Description 03/15/2018 2:41 PM EST - 03/15/2018 5:54 PM EST Surgery [place] [address] Marla Zepeda MD MASTECTOMY, SIMPLE, COMPLETE-CARITO (WRVU 15) Social History [...] this encounter Discharge Summaries * Aleah Vigil, MIRIAN - 03/16/2018 10:42 AM EST General Surgery [...] s/p partial mastectomy and RT in 2009 ([facility]). She was followed by surgeon [...] bony pain or tenderness.stopped drinking wine around [place] time due to depression. ?? Reports a left breast infection about 2-3 weeks after biopsy. Had redness, pain and inverted nipple. She was started on augmentin for 21 days and symptoms resolved. ?? Here today with her . Operations/Major Procedures: Operations: 03/15/2018 Surgeon(s) and Role: * Marla Zepeda MD - Primary * Sera Weller MD - Resident-Fence Gate Assembler * Vu Angela MD - Resident-Surgeon Tonny [...] Discharge: Final Surgical Pathology pending. Studies: NM Afton Node Injection Breast wo Imaging (03/16): IMPRESSION Afton node injections performed without complication. Discharge Exam: [...] to: Home VNA: Yes Name of facility: [facility]. Contact information: PHONE: [phone] Discharge Conditions/Prognosis: Stable Discharge Medications: The following [...] 1:30 PM Marla Zepeda MD [facility] 03/30/2018 2:00 PM Avi Talbot MD Leb Hem Onc [facility] 03/30/2018 3:15 PM Magdalena Madrigal, PT PT Rehab [facility] Outpatient Services/Studies: Referral to Home Health - at DISCHARGE Order Comments: DOCUMENTATION FOR VNA SERVICES (INCLUDING THOSE PATIENTS WITH MEDICARE COVERAGE REQUIRING HOME VNA SERVICES AND/OR HOSPICE SERVICES) PATIENT'S LOCATION: Cecilia Marx [address] [facility] [address] (home) [phone] (cell) Finished Goods Inspector's Name: Self In discussion with the attending physician, it is certified that this patient is under their care and that they, or a Nurse Practitioner,Clinical Nurse specialist or Physician Phlebotomy Services Representative who is working directly with them, had [...] program if appropriate. HOME HEALTH CARE AGENCY: [facility]. PHONE: [phone] FAX: [phone] Start of care: 24-48 hrs after discharge Please note that any additional orders needs or changes will need to be obtained from this patient's PCP: NNAMDI Nicole [address] / [place] [address] All A agencies which cover the area of patient's residence have been reviewed, either verbally stacia writing, and patient/family have chosen the home health care agency noted Question Response Notes Agency name and contact information [facility] Patient location post discharge Home [...] than 30cc perday for 2 consecutive days. [phone] You may shower with the drains in [...] Dr. Zepeda in 2-3 weeks Please call [phone] to confirm date and time of your appointment if you do not hear from us inthe week. Call Doctor for: Worsening redness or drainage from your incision lasting longer than 5 days following surgery Any foul-smelling drainage from the incision Fevers greater than 101 degrees F Persistent nausea or vomiting (this may be related to opioid pain medications) Phone number for questions: [phone] before 5 PM weekdays [phone] after 5 PM and on weekends/holidays Future Appointments Date Time Provider Department Center 03/30/2018 1:30 PM Marla Zepeda MD Leb Surg [facility] 03/30/2018 2:00 PM Avi Talbot MD [...] post-operative care. CC: NNAMDI Nicole Signed: Aleah E Yaritza, BIOMASS FACILITATOR [facility] Surgical Oncology Service Team Pager #[phone] 03/16/2018 11:44 AM documented in this encounter Discharge Instructions * Patient Instructions* Aleah Vigil MIRIAN - 03/16/2018 9:03 AM EST Instructions following [...] than 30cc perday for 2 consecutive days. [phone] You may shower with the drains in [...] Dr. Zepeda in 2-3 weeks Please call [phone] to confirm date and time of your appointment if you do not hear from us inthe week. Call Doctor for: Worsening redness or drainage from your incision lasting longer than 5 days following surgery Any foul-smelling drainage from the incision Fevers greater than 101 degrees F Persistent nausea or vomiting (this may be related to opioid pain medications) Phone number for questions: [phone] before 5 PM weekdays [phone] after 5 PM and on weekends/holidays Future Appointments Date Time Provider Department Center 03/30/2018 1:30 PM Marla Zepeda MD Leb Surg [facility] 03/30/2018 2:00 PM Avi Talbot MD Leb Hem Onc [facility] 03/30/2018 3:15 PM Magdalena Madrigal, PT PT Rehab [facility] * Attachments The following attachments cannot be sent through Care Everywhere. * Surgical Drain Care ([place]) documented in this encounter Medications at Time [...] RN - 03/16/2018 9:46 AM EST The patient/manufacturer representative has been provided a list of Home Health Agencies which serve their preferred geographic area. A letter describing our affiliations was reviewed with them and they were educated about their right to choose where referrals are placed. Patient requests referral to [facility] [place]. PHONE: [phone] FAX: [phone]. Expected date of discharge: 03/16/18. Referral routed to the Heater Helper for matching with agency/vendor and to provide [...] supportive. He will [facility] overnight and will keep all [...] out of the room to the front man by Rachana Leary RN at 2009, verified with Noemi and lab informed at 2012. #2 right axillary node #3 left breast tissue out at 2057 and sent to the front man at 2113 on 03/15/18, verified by Luis Womack and noemi that there were two specimens in the bag , right sentinal node and left breast tissue. Contact the patient to update him on the procedure at 2025 on 03/15/18. documented in this encounter Miscellaneous Notes * Op Note - Marla Zepeda MD - 03/16/2018 11:45 AM EST [facility] [place] Note Patient Name: Cecilia Marx : [id number] MR#: [id number] Case Date: 03/15/2018 Surgeon: Surgeon(s) and Role: * Marla Zepeda MD - Primary * Sera Weller MD - Resident-Fence Gate Assembler * Vu Angela MD - Resident-Surgeon Tonny [...] Operative Note Patient Name: Cecilia Marx : [id number] MR#: [id number] Case Date: 03/15/2018 Surgeon: Surgeon(s) and Role: * Marla Zepeda MD - Primary * Sera Weller MD - Resident-Fence Gate Assembler * Vu Angela MD - Resident-Surgeon Tonny [...] MD PATHOLOGY/CYTOLO GY ORDERABLES Performing Organization Address City/[facility]/ZIP Co de Phone Number [facility] [place] [address] * Specimen to Pathology (03/15/2018 9:00 PM EST) AP Specimen 03/15/2018 9:00 PM EST 03/15/2018 9:37 PM EST Narrative [facility] - 03/15/2018 9:38 PM EST Specimen requisition ordered. ??Separate Pathology report to follow Resulting Agency Comment Spec In Lab Marla Blue MD PATHOLOGY/CYTOLO GY ORDERABLES Performing Organization Address [facility]/ZIP Co de Phone Number [facility] [place] [address] * Specimen to Pathology (03/15/2018 8:06 PM EST) AP Specimen 03/15/2018 8:06 PM EST 03/15/2018 8:06 PM EST Narrative [facility] - 03/15/2018 8:06 PM EST Specimen requisition ordered. ??Separate Pathology report to follow Marla Blue MD PATHOLOGY/CYTOLO GY ORDERABLES Performing Organization Address [facility]/ZIP Co de Phone Number [facility] [place] [address] * Surgical Pathology Report (03/15/2018 8:04 PM EST) Final Diagnosis [id number] ? Location: [facility]; [facility]; A The signing pathologist has (i) [...] ?? Uninvolved by tumor cells ?Number of Afton Nodes Examined: ?4 Pathologic Stage Classification (pTNM, AJCC 8th Edition) ? Primary Tumor (pT): ?? pTis (DCIS) ? Regional Lymph Nodes (pN) ?Modifier: ??(sn): Afton node(s) evaluated. ?Category (pN): ?? pN0 Tumor Block(s): ?? A11 CAP eCC February 2017 Agile Release ER and AR studies (performed on prior biopsy, [id number]): ER: Positive (>90%, strong) AR: Positive (50%, moderate to strong) Electronically signed by: ??Antonio BANGURA, Delon Lewis Verified: ??03/22/2018 ?Pathologist Performed at: ??-[facility] [place], [place], [place] . DISCUSSION An admixture of atypical [...] is blue, deep is black. Sections/Processi ng: Tap Out Operator sections in 22 cassettes as follows: [...] 2.5 cm. . SPECIMEN PROCESSING Sections/Processi ng: ??Tap Out Operator sections in 6 cassettes as follows: ? [...] noted. Ink Designation: Deep/black; superficial/blue. Sections/Processi ng: Tap Out Operator sections in 12 cassettes as follows: ? C1: ? Nipple ? C2: ? Base of nipple ? C3-C4: ?Tap Out Operator upper outer quadrant ? C5-C6: ?Tap Out Operator lower inner quadrant ? C7-C8: ?Tap Out Operator central ? C9-C10: ?? Tap Out Operator upper inner quadrant ? C11-C12: ??Tap Out Operator lower inner quadrant Ischemic Time: 0.8 [...] PATHOLOGY/CYTOLO GY ORDERABLES [facility] [place] [address] documented in this encounter Visit Diagnoses Not [...] on Mon03/16/18 at 0900, Until Discontinued, Routine 09 (Given - Provid er: Teresa Johnson RN) [...] Day of Surgery (Day of Procedure), Routine 1812 (Given - Provider: Francisca Olmos)1814 (Patch Applied - Provider: Francisca Olmos) sodium [...] 2220, Day of Surgery (Day of Procedure) 1813 (New Bag - Provider: Francisca Olmos)1930 (New [...] Mackenzie Strickland RN)2217 (Given - Provider: Mackenzie Strickland RN)2251 (Given - Provider: Mackenzie Strickland RN) [...] 03/15/18 at 2319, Until 03/16/18 at 1349, for discomfort with PIV insertion, [...] Unit) documented in this encounter Care Teams Pediatric Cardiologist Relationship Specialty Start Date End Date Christine Fuentes PA [address] [place] [address] PCP - General Family Medicine 01/24/17 10/08/19 documented as of this encounter
--- OUTSIDE RECORDS SUMMARY | 2024-02-08 17:11 | XMS_ITS | Encounter Summary ---
Author Organization [facility] [place] [address] Care Team Providers Care Community Specialist Name Role Phone Christine Fuentes Primary Care Provider +1- [phone] Encounter Details Date Type Department Care Team (Latest Contact Info) Description 02/21/2018 1:54 PM EST - 02/21/2018 11:59 PM EST Hospital Encounter [place]ematology [place] [address] Ductal carcinoma in situ (DCIS) of breast, [...] ORDERABLES [facility] [place] [address] documented in this encounter Visit Diagnoses Diagnosis Ductal carcinoma in situ (DCIS) of breast, unspecified laterality Family history of malignant neoplasm of breast documented in this encounter Care Teams Community Specialist Relationship Specialty Start Date End Date Christine Fuentes PA [address] [place] [address] PCP - General Family Medicine 01/24/17 10/08/19 documented as of this encounter
--- OUTSIDE RECORDS SUMMARY | 2024-02-08 17:11 | XMS_ITS | Encounter Summary ---
Author Organization [facility] [place] [address] Care Team Providers Care Residential Subcontractor Name Role Phone HarishChristine russell Primary Care Provider +1- [phone] Encounter Details Date Type Department Care Team (Late st Contact Info) Description 03/11/2018 Telephone Pediatric [place] [phone] Concetta Mullen MD Social History Tobacco Use Types Packs/Day [...] on filedocumented in this encounter Care Teams Residential Subcontractor Relationship Specialty Start Date End Date Christine Fuentes PA [address] [place] [address] PCP - General Family Medicine 01/24/17 10/08/19 documented as of this encounter
--- OUTSIDE RECORDS SUMMARY | 2024-02-08 17:11 | XMS_ITS | Encounter Summary ---
[place] [address] Care Team Providers Care Pressroom Supervisor Name Role Phone Christine Fuentes Primary Care Provider +1- [phone] Reason for Visit * Auth/Cert Specialty Diagnoses / Procedures Referred By Cherie abdul Referred To Contact Diagnoses LEFT BREAST COMPLEX SCLEROSING LESION Procedures PRO EXCISE BREAST LES W XRAY MARKER EXCISION LESION, BREAST W/ PREOP.MARKER (NEEDLE LOC.) (WRVU 6.69) MODIFIER WITH NEEDLE LOC., LESION #1 Referral ID Status Reason Start Date Expiration Date Visits Re quested Visits Authorized [id number] 1 1 Encounter Details Date Type Department Care Team (Late st Contact Info) Description 03/30/2017 11:40 AM EST - 03/30/2017 1:17 PM EST Surgery [place]patient [place] [phone] Savana Zepeda MD EXCISION LESION, BREAST W/ PREOP.MARKER (NEEDLE LOC.) [...] encounter Discharge Instructions * Discharge Instructions* Vahid Jurado, RN - 03/30/2017 9:53 AM EST General [...] closest emergency room or call the hospital travograph operator at [phone] and ask for physician rail transportation tabeler covering for your physician. Questions or problems after 5pm or on a weekend: Call the [facility] travograph operator at and ask for the physician rail transportation tabeler covering for your doctor. * Patient Instructions* [...] 04/13/2017 10:45 AM Rhoda Brumfield APRN [facility] Call Doctor for: Worsening redness or drainage from your incision lasting longer than 5 days following surgery Any foul-smelling drainage from the incision Fevers greater than 101 degrees F Persistent nausea or vomiting (this may be related to opioid pain medications) Phone number for questions: [phone] before 5 PM weekdays [phone] after 5 PM and on weekends/holidays documented [...] MD - 03/30/2017 1:48 PM EST [facility] [place] Patient Name: Cecilia Marx : [id number] MR#: [id number] Case Date: 03/30/2017 Surgeon: Surgeon(s) and Role: [...] Operative Note Patient Name: Cecilia Marx : [id number] MR#: [id number] Case Date: 03/30/2017 Surgeon: Surgeon(s) and Role: [...] PM EST 03/30/2017 2:20 PM EST Narrative [facility] - 03/30/2017 2:20 PM EST Specimen requisition ordered. ??Separate Pathology report to follow Resulting Agency Comment Spec In Lab Savana Blue MD PATHOLOGY/CYTOLO GY ORDERABLES [facility] [place] [address] * Surgical Pathology Report (03/30/2017 1:22 PM EST) Final Diagnosis [id number] ? Location: [facility] The signing pathologist has [...] Lewis Verified: ??04/05/2017 ?Pathologist Performed at: ??-[facility] [place], [place], [place] DISCUSSION Two separate foci of atypical [...] clip is within slice XII. SECTIONS/PROCESSING: (1) business banking representative perpendicular slice I, orange-cranial margin; (2) business banking representative slice VIII; (3) business banking representative slice IX; (4) business banking representative slice X; (5) business banking representative slice XI; (6) business banking representative slice XII, with cylinder clip; (7) slice XIII, with lesion; (8) slice XIV, with lesion; (9) business banking representative perpendicular slice XV. (R9) Ischemic Time: 85 minutes ??[email or web address] Additional sections: (10) remaining slice VIII; (11) slice III; (12) fibrous tissue central slice V; (13-14) bisected slice VII. (R14) chinyere 04/05/2017 9:19 AM EST [facility] BREAST STRUCTURE / Unknown 03/30/2017 1:22 PM EST 03/30/2017 1:22 PM EST Savana Blue MD PATHOLOGY/CYTOLO GY ORDERABLES [facility] [place] [address] documented in this encounter Visit Diagnoses Not [...] on Arpita 218 at 1002, Until Arpita 03/30/17 at 1702, [...] on Arpita 03/30/17 at 1002, Until Arpita 18 at 1702, [...] 5% 100 mL (COMPLETED) 2 g, Intravenous, PLAYGROUND OFFICIAL TO O.R., 1 dose, On Arpita 03/30/17 [...] on Arpita 2/18 at 1304, Until Arpita 2/18 at 1702, Intra-Operative (Intra-Procedure), Routine 1304 (Given - Provid er: Savana Blue MD - Comment: 1% lidocaine mixed 1:1 with 0.5% bupivacaine, Total of 20 ml's given at this time.)1345 (Given - Provider: Savana Blue MD) lidocaine (XYLOCAINE) 10 mg/mL (1 %) injection 3 mg 3 mg (0.3 mL), Subcutaneous, ONCE PRN, 1 dose, Starting on Arpita 2/18 at 1002, Until Arpita 218 at 1702, for discomfort with PIV insertion, Day of Surgery (Day of Procedure), Routine lidocaine (XYLOCAINE) 10 mg/mL (1 %) injection (CANCELED) ONCE PRN, Starting on Arpita 2/18 at 1304, Until Arpita 2/18 at 1702, Intra-Operative (Intra-Procedure), Routine 1304 (Given - Provid er: Savana Blue MD - Comment: 1% lidocaine mixed 1:1 with 0.5% bupivacaine, Total of 20 ml's given at this time.)1345 (Given - Provider: Savana Blue MD) sodium chloride 0.9 % flush 5-20 mL 5-20 mL, Intravenous, EVERY 1 MIN PRN, Starting on Arpita 2/18 at 1002, Until Arpita 218 at 1702, flush, Flush pertains to all indwelling lines. Flush per protocol found in the job aid using the link provided on this medication record., Day of Surgery (Day of Procedure), Routine documented in this encounter Care Teams Pressroom Supervisor Relationship Specialty Start Date End Date Christine Fuentes PA [address] [place] [address] PCP - General Family Medicine 01/24/17 10/08/19 documented as of this encounter
--- OUTSIDE RECORDS SUMMARY | 2024-02-08 17:11 | XMS_ITS | Encounter Summary ---
Author Organization [facility] [place] [address] Care Team Providers Care Sanitary Napkin Machine Tender Name Role Phone Christine Fuentes Primary Care Provider +1- [phone] Reason for Visit * Consultation (Routine) - Closed Specialty Diagnoses / Procedures Referred By Cherie abdul Referred To Contact Hematology and Oncology Diagnoses Breast cancer screening, high risk patient History of breast cancer Rhoda Brumfield, [facility] [place] [address] St Hem Onc Office [address] [place] [phone] Referral ID Status Reason Start Date Expiration Date V isits Requested Visits Authorized [id number] Closed Consult, Test & Treat 04/13/2017 04/13/2018 1 1 Encounter Details Date Type Department Care Team (Late st Contact Info) Description 04/20/2017 3:00 PM EST Office Visit Hematology/Oncology at [address] [address] Amaury Stack MD Atypical ductal hyperplasia of left breast Social [...] [ ] Not satisfied SOCIAL ASSESSMENT: See [facility] social assessment information entered. Support Systems: [...] Right 2010 DCIS s/p PM and RT ??? PRO EXCISE BREAST LES W XRAY MARKER Left 03/30/2017 EXCISION LESION, BREAST W/ PREOP.MARKER (NEEDLE LOC.) (WRVU 6.69) performed by Marla Brice MD at [facility] Allergies Allergen Reactions ??? Nitrofurantoin [...] alter care of Patient. Yes. ?? COMPARISONS: [id number] ?? FINDINGS: The breasts of scattered fiber [...] Delon Lewis Verified: ??04/05/2017 ?Pathologist Performed at: ??-[facility] Dept. of Pathology, [place], [place] DISCUSSION Two separate foci of atypical [...] breast documented in this encounter Care Teams Sanitary Napkin Machine Tender Relationship Specialty Start Date End Date Christine Fuentes PA [address] [place] [address] PCP - General Family Medicine 01/24/17 10/08/19 documented as of this encounter
--- OUTSIDE RECORDS SUMMARY | 2024-02-08 17:11 | XMS_ITS | Encounter Summary ---
[place] [address] Care Team Providers Care Detacker Name Role Phone Christine Fuentes Primary Care Provider +1- [phone] Reason for Referral * Diagnostic Test (Routine) - Closed Specialty Diagnoses / Procedures Referred By Cherie abdul Referred To Contact Radiology Diagnoses Ductal carcinoma in situ (DCIS) of right breast Procedures NM Ages [place] Node Injection Breast wo Imaging Marla Brice MD [facility] [place] [address] [place] [address] Referral ID Status Reason Start Date Expiration Date V isits Requested Visits Authorized [id number] Closed Specialty Service Requested 02/23/2018 02/23/2019 1 1 Encounter Details Date Type Department Care Team (Late st Contact Info) Description 02/23/2018 Orders [place] [address] Marla Brice MD Ductal carcinoma in situ (DCIS) of right [...] as of this encounter Results * NM Ages [place]side Node Injection Breast wo Imaging (03/15/2018 1:11 PM EST) Anatomical Region Laterality Modality Nuclear Medicine Impressions 03/15/2018 1:50 PM EST Ages Brookside node injections performed without complication. Thank you [...] patient left the department ingood condition. IMPRESSION Ages Brookside node injections performed without complication. Thank you for letting us participate in the care of this patient. Forquestions regarding this report, please contact the number below. 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
--- OUTSIDE RECORDS SUMMARY | 2024-02-08 17:11 | XMS_ITS | Encounter Summary ---
Author Organization [facility] [place] [address] Care Team Providers Care Kid Club Attendant Name Role Phone Christine Fuentes Primary Care Provider +1- [phone] Encounter Details Date Type Department Care Team (Late st Contact Info) Description 03/30/2017 8:40 AM [facility] Hospital [place] [address] Marla Brice MD Breast lesion Discharge Disposition: Home Social History [...] disorder documented in this encounter Care Teams Kid Club Attendant Relationship Specialty Start Date End Date Christine Fuentes PA [address] [place] [address] PCP - General Family Medicine 01/24/17 10/08/19 documented as of this encounter
--- OUTSIDE RECORDS SUMMARY | 2024-02-08 17:11 | XMS_ITS | Encounter Summary ---
Author Organization [facility] [place] [address] Care Team Providers Care Dance Artist Name Role Phone Christine Fuentes Primary Care Provider +1- [phone] Encounter Details Date Type Department Care Team (Latest Contact Info) Description 01/30/2018 1:03 PM EST - 01/30/2018 11:59 PM EST Hospital En[place] [address] Babs Duvall MD [facility] [place] [address] Abnormal mammogram Discharge Disposition: Home Social History [...] core biopsy specimens were obtained using a Opti[employer] Eviva 9g device. Biopsy specimens were radiographed. [...] PM EST 01/30/2018 1:33 PM EST Narrative [facility] - 01/30/2018 1:33 PM EST Specimen requisition ordered. ??Separate Pathology report to follow Babs Duvall MD PATHOLOGY/CYTOLOGY ORDERABLES Performing Organization Address City/State/[facility] Co de Phone Number [facility] [place] [address] * Surgical Pathology Report (01/30/2018 1:25 PM EST) Final Diagnosis [id number] ? Location: 3L The signing pathologist has [...] cancer cells with immunostaining) Stain intensity: Strong OK immunoreactivity: Positive (~50% cancer cells with immunostaining) [...] The assays were performed according to the national opelint analyst ? 's instructions using Anti-ER (SP1) and Anti-OK (16) antibodies. Electronically signed by: ??Kamryn Gregory DO Verified: ??02/01/2018 ?Pathologist Performed at: ??-[facility] Dept. of Pathology, [place], [place] DISCUSSION The DCIS shows a micropapillary [...] 7 minutes ??ejr 02/01/2018 9:15 AM EST [facility] BREAST STRUCTURE / Unknown 01/30/2018 1:25 PM EST 01/30/2018 1:25 PM EST Babs Duvall MD PATHOLOGY/CYTOLOGY ORDERABLES [facility] [place] [address] documented in this encounter Visit Diagnoses Diagnosis [...] mg documented in this encounter Care Teams Dance Artist Relationship Specialty Start Date End Date Christine Fuentes PA [address] [place] [address] PCP - General Family Medicine 01/24/17 10/08/19 documented as of this encounter
--- OUTSIDE RECORDS SUMMARY | 2024-02-08 17:11 | XMS_ITS | Encounter Summary ---
Author Organization [facility] [place] [address] Care Team Providers Care Engineering Project Designer Name Role Phone Christine Fuentes Primary Care Provider +1- [phone] Reason for Visit * Auth/Cert Specialty Diagnoses [...] Expiration Date Visits Re quested Visits Authorized [id number] 1 1 Encounter Details Date Type Department Care Team (Late st Contact Info) Description 03/15/2018 1:11 PM EST - 03/16/2018 11:45 AM [facility] Hospital [place] [address] Marla Zepeda MD Malignant neoplasm of female breast, unspecified estrogen [...] this encounter Discharge Summaries * Aleah Vigil, AUTO WINDER - 03/16/2018 10:42 AM EST General Surgery [...] s/p partial mastectomy and RT in 2009 ([facility]). She was followed by surgeon for 5 [...] bony pain or tenderness.stopped drinking wine around [place] time due to depression. ?? Reports a left breast infection about 2-3 weeks after biopsy. Had redness, pain and inverted nipple. She was started on augmentin for 21 days and symptoms resolved. ?? Here today with her . Operations/Major Procedures: Operations: 03/15/2018 Surgeon(s) and Role: * Marla Zepeda MD - Primary * Sera Weller MD - Resident-Anesthesia Resident * Vu Angela MD - Resident-Surgeon Tonny * Richie Szymanski MD - Resident-Surgeon Tonny: Procedure(s): MASTECTOMY, SIMPLE, COMPLETE-CARITO (WRVU 15.85) BIOPSY OR EXCISION OF LYMPH NODE(S), OPEN, DEEP AXILLARY NODE(S) (WRVU 6.43) INTRAOPERATIVE ID (MAPPING) SENTINEL LYMPH NODE,INCLUDES INJECTION (WRVU 2.5) Operative Findings: Right mastectomy performed and a palpable axillary node taken. No hot nodes identified via radiotracer. Left mastectomy preformed. EJFFRY drains left in both mastectomy sites. Hospital [...] Discharge: Final Surgical Pathology pending. Studies: NM [place] Node Injection Breast wo Imaging (03/16): IMPRESSION [place] node injections performed without complication. Discharge Exam: [...] to: Home VNA: Yes Name of facility: [facility]. Contact information: PHONE: [phone] Discharge Conditions/Prognosis: Stable Discharge Medications: The following [...] PM Avi Talbot MD Leb Hem Onc [facility] 03/30/2018 3:15 PM Magdalena Madrigal, PT PT Rehab [facility] Outpatient Services/Studies: Referral to Home Health - at DISCHARGE Order Comments: DOCUMENTATION FOR VNA SERVICES (INCLUDING THOSE PATIENTS WITH MEDICARE COVERAGE REQUIRING HOME VNA SERVICES AND/OR HOSPICE SERVICES) PATIENT'S LOCATION: Cecilia Marx [place] [facility] [id number] (home) [phone] (cell) Green Plumber's Name: Self In discussion with the attending physician, it is certified that this patient is under their care and that they, or a Nurse Practitioner,Clinical Nurse specialist or Physician Sandwich Counter Attendant who is working directly with them, had [...] program if appropriate. HOME HEALTH CARE AGENCY: [facility]. PHONE: [phone] FAX: [phone] Start of care: 24-48 hrs after discharge Please note that any additional orders needs or changes will need to be obtained from this patient's PCP: NNAMDI Nicole [address] / [place] [address] All VNA agencies which cover the area of patient's residence have been reviewed, either verbally tsacia writing, and patient/family have chosen the home health care agency noted Question Response Notes Agency name and contact information [facility] Patient location post discharge Home [...] than 30cc perday for 2 consecutive days. [phone] You may shower with the drains in [...] Dr. Zepeda in 2-3 weeks Please call [phone] to confirm date and time of your appointment if you do not hear from us inthe week. Call Doctor for: Worsening redness or drainage from your incision lasting longer than 5 days following surgery Any foul-smelling drainage from the incision Fevers greater than 101 degrees F Persistent nausea or vomiting (this may be related to opioid pain medications) Phone number for questions: [phone] before 5 PM weekdays [phone] after 5 PM and on weekends/holidays Future Appointments Date Time Provider Department Center 03/30/2018 1:30 PM Marla Zepeda MD Leb Surg [facility] 03/30/2018 2:00 PM Avi Talbot MD Leb Hem Onc [facility] 03/30/2018 3:15 PM Magdalena Madrigal, PT PT Rehab [facility] General Instructions None Acute Opioid Prescribing: [...] CC: NNAMDI Nicole Signed: Aleah Vigil APRN [facility] Surgical Oncology Service Team Pager #[phone] 03/16/2018 11:44 AM documented in this encounter [...] than 30cc perday for 2 consecutive days. [phone] You may shower with the drains in [...] Dr. Zepeda in 2-3 weeks Please call [phone] to confirm date and time of your appointment if you do not hear from us inthe week. Call Doctor for: Worsening redness or drainage from your incision lasting longer than 5 days following surgery Any foul-smelling drainage from the incision Fevers greater than 101 degrees F Persistent nausea or vomiting (this may be related to opioid pain medications) Phone number for questions: [phone] before 5 PM weekdays [phone] after 5 PM and on weekends/holidays Future Appointments Date Time Provider Department Center 03/30/2018 1:30 PM Marla Zepeda MD Leb Surg [facility] 03/30/2018 2:00 PM Avi Talbot MD Le[facility] Hem Onc [facility] 03/30/2018 3:15 PM Magdalena Madrigal, PT PT Rehab [facility] * Attachments The following attachments cannot be sent through Care Everywhere. * Surgical Drain Care (Gambian) documented in this encounter Medications at Time [...] - 03/16/2018 9:46 AM EST The patient/sales support representative has been provided a list of Home Health Agencies which serve their preferred geographic area. A letter describing our affiliations was reviewed with them and they were educated about their right to choose where referrals are placed. Patient requests referral to [facility]. PHONE: [phone] FAX: [phone]. Expected date of discharge: 03/16/18. Referral routed to the Binding Printer for matching with agency/vendor and to provide [...] supportive. He will be staying in the [facility] overnight and will keep all pt [...] the room to the front end developer by Rachana Leary RN at 2009, verified with Noemi and lab informed at 2012. #2 right axillary node #3 left breast tissue out at 2057 and sent to the front end developer at 2113 on 03/15/18, verified by Luis Womack and noemi that there were two specimens in the bag , right sentinal node and left breast tissue. Contact the patient to update him on the procedure at 2025 on 03/15/18. documented in this encounter Miscellaneous Notes * Op Note - Marla Zepeda MD - 03/16/2018 11:45 AM EST [facility] Operative Note Patient Name: Cecilia Marx : [id number] MR#: [id number] Case Date: 03/15/2018 Surgeon: Surgeon(s) and Role: * Marla Zepeda MD - Primary * Sera Weller MD - Resident-Anesthesia Resident * Vu Angela MD - Resident-Surgeon Tonny [...] Order Time SPECIMEN TO PATHOLOGY Short stitch inelsen superior, long stitch nielsen lateral. breast cancer [...] Operative Note Patient Name: Cecilia Marx : [id number] MR#: [id number] Case Date: 03/15/2018 Surgeon: Surgeon(s) and Role: * Marla Zepeda MD - Primary * Sera Weller MD - Resident-Anesthesia Resident * Vu Angela MD - Resident-Surgeon Tonny [...] PM EST 03/15/2018 9:38 PM EST Narrative [facility] - 03/15/2018 9:38 PM EST Specimen requisition ordered. ??Separate Pathology report to follow Resulting Agency Comment Spec In Lab Marla Blue MD PATHOLOGY/CYTOLO GY ORDERABLES [facility] [place] [address] * Specimen to Pathology (03/15/2018 9:00 PM EST) AP Specimen 03/15/2018 9:00 PM EST 03/15/2018 9:37 PM EST Narrative [facility] - 03/15/2018 9:38 PM EST Specimen requisition ordered. ??Separate Pathology report to follow Resulting Agency Comment Spec In Lab Marla Blue MD PATHOLOGY/CYTOLO GY ORDERABLES [facility] [place] [address] * Specimen to Pathology (03/15/2018 8:06 PM EST) AP Specimen 03/15/2018 8:06 PM EST 03/15/2018 8:06 PM EST Narrative [facility] - 03/15/2018 8:06 PM EST Specimen requisition ordered. ??Separate Pathology report to follow Marla Blue MD PATHOLOGY/CYTOLO GY ORDERABLES [facility] [place] [address] * Surgical Pathology Report (03/15/2018 8:04 PM EST) Final Diagnosis [id number] ? [facility]; A The signing pathologist has (i) examined [...] ?? Uninvolved by tumor cells ?Number of Canton Nodes Examined: ?4 Pathologic Stage Classification (pTNM, AJCC 8th Edition) ? Primary Tumor (pT): ?? pTis (DCIS) ? Regional Lymph Nodes (pN) ?Modifier: ??(sn): [place] node(s) evaluated. ?Category (pN): ?? pN0 Tumor Block(s): ?? A11 CAP eCC February 2017 Agile Release ER and VA studies (performed on prior biopsy, [id number]): ER: Positive (>90%, strong) VA: Positive (50%, moderate to strong) Electronically signed by: ??Antonio BANGURA, Delon Lewis Verified: ??03/22/2018 ?Pathologist Performed at: ??-[facility] Dept. of Pathology, [place], [place] . DISCUSSION An admixture of atypical [...] is blue, deep is black. Sections/Processi ng: Relationship Management Lead sections in 22 cassettes as follows: ? [...] 2.5 cm. . SPECIMEN PROCESSING Sections/Processi ng: ??Relationship Management Lead sections in 6 cassettes as follows: ? [...] noted. Ink Designation: Deep/black; superficial/blue. Sections/Processi ng: Relationship Management Lead sections in 12 cassettes as follows: ? C1: ? Nipple ? C2: ? Base of nipple ? C3-C4: ?Relationship Management Lead upper outer quadrant ? C5-C6: ?Relationship Management Lead lower inner quadrant ? C7-C8: ?Relationship Management Lead central ? C9-C10: ?? Relationship Management Lead upper inner quadrant ? C11-C12: ??Relationship Management Lead lower inner quadrant Ischemic Time: 0.8 hours ??pps 03/22/2018 4:03 PM EST [facility] BREAST STRUCTURE / Unknown 03/15/2018 8:04 PM EST 03/15/2018 8:04 PM EST SENTINEL LYMPH NODE / Unknown 03/15/2018 8:04 PM EST 03/15/2018 8:04 PM EST BREAST STRUCTURE / Unknown 03/15/2018 8:04 PM EST 03/15/2018 8:04 PM EST Marla Blue MD PATHOLOGY/CYTOLO GY ORDERABLES Performing Organization Address City/State/[place] Co de Phone Number [facility] [place] [address] documented in this encounter Visit Diagnoses Diagnosis [...] Intravenous, 2 TIMES DAILY, First dose on 03/15/18 at 2345, Until Discontinued, Recovery (Recovery-Hospital [...] EVERY 72 HOURS, First dose on Arpita 1/24/19 at 2000, Until Discontinued, Day of Surgery (Day of Procedure), Routine 1813 (Given - Provider: Francisca Olmos)1815 (Patch Applied [...] Routine 2205 (Given - Provider: Mackenzie Strickland RN)221 (Given - Provider: Mackenzie Strickland RN)225 (Given - Provider: Mackenzie R [place], RN) ibuprofen (ADVIL;MOTRIN) tablet 600 mg 600 [...] and if ineffective use promethazine, PACU Recovery 2231 (Given - Provider: Mackenzie Strickland RN) ondansetron [...] Routine 2227 (Given - Provider: Mackenzie Strickland, RN) oxyCODONE (ROXICODONE) immediate release tablet 5-10 [...] Unit) documented in this encounter Care Teams Engineering Project Designer Relationship Specialty Start Date End Date Christine Fuentes PA [address] [place] [address] PCP - General Family Medicine 01/24/17 10/08/19 documented as of this encounter
--- OUTSIDE RECORDS SUMMARY | 2024-02-08 17:11 | XMS_ITS | Encounter Summary ---
[place] [address] Care Team Providers Care Ice House Supervisor Name Role Phone Christine Fuentes Primary Care Provider +1- [phone] Encounter Details Date Type Department Care Team (Late st Contact Info) Description 02/21/2018 10:45 AM EST Office Visit [place] [address] Marla Brice MD Maynard, Kimberly J, RN Ductal carcinoma in situ (DCIS) of [...] in this encounter Progress Notes * Kiersten Wilson, RN - 02/21/2018 10:45 AM EST Comprehensive [...] Exercises handout created by physical therapists at [facility]. She understands she may begin the first [...] Clinic Nurses was given and the Doctor cotton grower system explained. 10. We discussed the recommended [...] index lesion) Referral to familial counseling: Yes * Marla Brice MD - 02/21/2018 10:45 AM EST Surgical Oncology Follow Up Note - New diagnosis of DCIS Reason for Visit: Cecilia Marx is a 62 y.o. female referred back to me by Christine Fuentes for evaluation of right breast DCIS. 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 She was followed by surgeon for [...] Stereotactic Biopsy Right 01/30/2018 Babs Duvall MD [facility] RAD MAMMOGRAPHY ??? PRO EXCISE BREAST LES W XRAY MARKER Left 03/30/2017 EXCISION LESION, BREAST W/ PREOP.MARKER (NEEDLE LOC.) (WRVU 6.69) performed by Marla Brice MD at [facility] Current Outpatient Medications: ??? hydrocortisone [...] breast documented in this encounter Care Teams Ice House Supervisor Relationship Specialty Start Date End Date Christine Fuentes PA [address] [place] [address] PCP - General Family Medicine 01/24/17 10/08/19 documented as of this encounter
--- OUTSIDE RECORDS SUMMARY | 2024-02-08 17:11 | XMS_ITS | Encounter Summary ---
Author Organization [facility] Address [facility] [place] [address] Care Team Providers Care Provisioning Specialist Name Role Phone Christine Fuentes Primary Care Provider +1- [phone] Encounter Details Date Type Department Care Team (Late st Contact Info) Description 03/30/2017 Notes [place] [address] Evans Almanzar MD [facility] [place] [address] Social History Tobacco Use Types Packs/Day Years [...] on filedocumented in this encounter Care Teams Provisioning Specialist Relationship Specialty Start Date End Date Christine Fuentes PA [address] [place] [address] PCP - General Family Medicine 01/24/17 10/08/19 documented as of this encounter
--- OUTSIDE RECORDS SUMMARY | 2024-02-08 17:11 | XMS_ITS | Encounter Summary ---
Author Organization Counts Include [facility] Address [facility] [place] [address] Care Team Providers Care Desktop Manager Name Role Phone Christine Fuentes Primary Care Provider +1- [phone] Encounter Details Date Type Department Care Team (Late st Contact Info) Description 01/30/2018 Notes [place] [address] Evans Almanzar MD [facility] [place] [address] Social History Tobacco Use Types Packs/Day Years [...] on filedocumented in this encounter Care Teams Desktop Manager Relationship Specialty Start Date End Date Christine Fuentes PA [address] [place] [address] PCP - General Family Medicine 01/24/17 10/08/19 documented as of this encounter
--- OUTSIDE RECORDS SUMMARY | 2024-02-08 17:11 | XMS_ITS | Encounter Summary ---
Author Organization [facility] [place] [address] Care Team Providers Care Director Service Name Role Phone Christine Fuentes Primary Care Provider +1- [phone] Encounter Details Date Type Department Care Team (Late st Contact Info) Description 03/01/2018 Orders Only Hematology [place] [address] Aliyah Connors, CHISEL GRINDER [facility] [place] [address] Research subject (Primary Dx) Social History Tobacco [...] children documented in this encounter Care Teams Director Service Relationship Specialty Start Date End Date Christine Fuentes PA [address] [place] [address] PCP - General Family Medicine 01/24/17 10/08/19 documented as of this encounter
--- OUTSIDE RECORDS SUMMARY | 2024-02-08 17:11 | XMS_ITS | Encounter Summary ---
[place] [address] Care Team Providers Care Hoop Riveting Machine Operator Helper Name Role Phone Christine Fuentes Primary Care Provider +1- [phone] Encounter Details Date Type Department Care Team (Late st Contact Info) Description 02/27/2018 Telephone Hematology [place] [address] Domenica Lama LGC Social History Tobacco Use Types Packs/Day Years Used Date Smoking Tobacco: Former Cigarettes Q uit: 10/19/2011 Smokeless Tobacco: Never Sex and Gender Information Value Date Recorded Sex Assigned at Not on file Gender Identity Not on file Sexual Orientation Not on file documented as of this encounter Miscellaneous Notes * Telephone Encounter - Domenica Lama LGC - 02/27/2018 12:47 PM EST Informed Cecilia of her negative or normal STAT Breast Cancer Panel (MARTINA, BRCA1, BRCA2, CDH1, CHEK2, PALB2, PTEN, STK11, TP53) genetic test results. 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 It is unclear at this time whether the STK11 variant of uncertain significance identified is a cancer associated mutation or is a benign change in the gene with no increased cancer risks. [facility] is continually collecting and analyzing [...] on filedocumented in this encounter Care Teams Hoop Riveting Machine Operator Helper Relationship Specialty Start Date End Date Christine Fuentes PA [address] [place] [address] PCP - General Family Medicine 01/24/17 10/08/19 documented as of this encounter
--- OUTSIDE RECORDS SUMMARY | 2024-02-08 17:11 | XMS_ITS | Encounter Summary ---
[place] [address] Care Team Providers Care Car Dumper Name Role Phone Christine Fuentes Primary Care Provider +1- [phone] Encounter Details Date Type Department Care Team (Late st Contact Info) Description 01/22/2018 10:45 AM EST Office [place] [address] Rhoda Brumfield, MIRIAN Breast cancer screening, high risk patient Social History Tobacco Use Types Packs/Day Years Used Date Smoking Tobacco: Former Cigarettes Q uit: 10/19/2011 Smokeless Tobacco: Never Sex and Gender Information Value Date Recorded Sex Assigned at Not on file Gender Identity Not on file Sexual Orientation Not on file documented as of this encounter Progress Notes * Rhoda Brumfield APRN - 01/22/2018 10:45 AM [...] patient documented in this encounter Care Teams Car Dumper Relationship Specialty Start Date End Date Christine Fuentes PA [address] [place] [address] PCP - General Family Medicine 01/24/17 10/08/19 documented as of this encounter
--- OUTSIDE RECORDS SUMMARY | 2024-02-08 17:11 | XMS_ITS | Encounter Summary ---
Author Organization [facility] [place] [address] Care Team Providers Care Chemical Recovery Operator Name Role Phone Christine Fuentes Primary Care Provider +1- [phone] Encounter Details Date Type Department Care Team (Late st Contact Info) Description 01/22/2018 9:23 AM EST - 01/22/2018 11:59 PM EST Hospital En[place] [address] Rhoda Brumfield APRN Breast cancer screening, high risk patient; History [...] breast documented in this encounter Care Teams Chemical Recovery Operator Relationship Specialty Start Date End Date Christine Fuentes PA [address] [place] [address] PCP - General Family Medicine 01/24/17 10/08/19 documented as of this encounter
--- OUTSIDE RECORDS SUMMARY | 2024-02-08 17:11 | XMS_ITS | Encounter Summary ---
[place] [address] Care Team Providers Care Blockman Name Role Phone Christine Fuentes Primary Care Provider +1- [phone] Reason for Visit * Reason Onset Date Comments Follow-up 04/11/2017 Encounter Details Date Type Department Care Team (Late st Contact Info) Description 04/11/2017 Telephone [place] [address] Rhoda Brumfield APRN Follow-up Social History Tobacco Use Types Packs/Day [...] on filedocumented in this encounter Care Teams Blockman Relationship Specialty Start Date End Date Christine Fuentes PA [address] [place] [address] PCP - General Family Medicine 01/24/17 10/08/19 documented as of this encounter
--- OUTSIDE RECORDS SUMMARY | 2024-02-08 17:11 | XMS_ITS | Encounter Summary ---
[place] [address] Care Team Providers Care Mixer Operator Tablets Name Role Phone Christine Fuentes Primary Care Provider +1- [phone] Reason for Visit * Reason Comments Follow-up Encounter Details Date Type Department Care Team (Late st Contact Info) Description 03/30/2018 1:30 PM EST Office [place] [address] Marla Brice MD Ductal carcinoma in situ [...] Brice MD - 03/30/2018 1:30 PM EST Comprehensive Breast Program Surgical Oncology Postop Visit Reason for Visit: Cecilia Marx returns for postoperative visit. s/p bilateral mastectomy and right SLNB Breast Cancer Summary Right breast DCIS s/p bilateral mastectomy (no recon) and right SLNB Date: 03/15/18 5 cm, intermediate grade 0 of 4 LNs positive cells,, ER+/SC+ pTNM: ---(m)Tis N0 (AJCC) RIght breast DCIS s/p partial mastectomy and RT in 2009 ([facility]) Left breast, mastectomy: - Focal atypical lobular [...] DCIS s/p PM and RT in 2010 nowwith possible recurrence of DCIS in the right breast s/p bilateral mastectomy and right SLNB. 5cm of DCIS found, negative SLNB. Healing well. We discussed no role for radiation. In discussion with medical oncologist, would not recommend anti-estrogen as well. Plan: - Return in 6 months for CBE with Barbara Brumfield BREADMAN - drains to be removed today - physical therapy Marla Brice MD Surgical Oncology documented in this encounter Plan of Treatment Not on file documented as of this encounter Visit Diagnoses Diagnosis Ductal carcinoma in situ (DCIS) of right breast documented in this encounter Care Teams Mixer Operator Tablets Relationship Specialty Start Date End Date Christine Fuentes PA [address] [place] [address] PCP - General Family Medicine 01/24/17 10/08/19 documented as of this encounter
--- OUTSIDE RECORDS SUMMARY | 2024-02-08 17:11 | XMS_ITS | Encounter Summary ---
[place] [address] Care Team Providers Care Drawbench Operator Name Role Phone Christine Fuentes Primary Care Provider +1- [phone] Encounter Details Date Type Department Care Team (Late st Contact Info) Description 02/22/2018 Telephone Hematology [place] [address] Kiersten Wilson RN Social History Tobacco Use [...] a 62 y.o. female with newly diagnosed ER/MO+ right breast DCIS (biopsy 01/30/2018at [facility]). She has a history of right breast [...] may meet with our mastectomy fitter in [place] or someone closer to her home. Will provide information to her on [facility] M[facility]ctomy [facility] in [place].. documented in this encounter Plan of Treatment Not on file documented as of this encounter Visit Diagnoses Not on filedocumented in this encounter Care Teams Drawbench Operator Relationship Specialty Start Date End Date Christine Fuentes PA [address] [place] [address] PCP - General Family Medicine 01/24/17 10/08/19 documented as of this encounter
--- OUTSIDE RECORDS SUMMARY | 2024-02-08 17:11 | XMS_ITS | Encounter Summary ---
Author Organization [facility] [place] [address] Care Team Providers Care Animal [facility] Office Supervisor Name Role Phone Christine Fuentes Primary Care Provider +1- [phone] Encounter Details Date Type Department Care Team (Late st Contact Info) Description 02/21/2018 Notes Only Hematology [place] [address] Aliyah Maynard, ACADEMIC ASSISTANT [facility] DR [place] [address] Social History Tobacco Use Types Packs/Day Years [...] Maynard, RN - 02/21/2018 12:17 PM EST [id number]: Preclinical study of the aryl hydrocarbon receptor and other biomarkers in human adipose tissue and their potential links among obesity and breast cancer Date: 02/21/2018 Objective of visit: Meet with patient in 3K clinic to provide information regarding protocol [id number], answer questions or concerns about study plan [...] and patient will be enrolled on study [id number] per her consent. 2. Orders will be placed for study lab and tissue sample to be taken day of procedure; which will conclude her participation in the study. Dr. Cordova's lab notified. documented in this encounter Plan of Treatment Not on file documented as of this encounter Visit Diagnoses Not on filedocumented in this encounter Care Teams Animal Hospital Office Supervisor Relationship Specialty Start Date End Date Christine Fuentes PA [address] [place] [address] PCP - General Family Medicine 01/24/17 10/08/19 documented as of this encounter
--- OUTSIDE RECORDS SUMMARY | 2024-02-08 17:11 | XMS_ITS | Encounter Summary ---
[place] [address] Care Team Providers Care Plastic Extrusion Operator Name Role Phone Christine Fuentes Primary Care Provider +1- [phone] Reason for Visit * Physical Therapy (Routine) - Closed Specialty Diagnoses / Procedures Referred By Cherie abdul Referred To Contact Physical Therapy Diagnoses Breast cancer Marla Brice MD [facility] [address] [facility] [place] [address] Referral ID Status Reason Start Date Expiration Date Visits Re quested Visits Authorized [id number] Closed 03/13/2018 03/13/2019 1 1 Encounter Details Date Type Department Care Team (Late st Contact Info) Description 03/30/2018 3:15 PM EST Office Visit [place] [address] Debra Madrigal, PT [facility] PHYSICAL MEDICINE & [place] [address] Decreased ROM of right shoulder; Decreased ROM [...] Provider: Marla Brice V Primary Insurance: Payor: [employer] [place] / Plan: [place]ANGE / [...] pending: none Social: , pt. lives in [place], [place] Work: retired from [email or web address] Function/exercise history: walking when weather is good [...] and consistent in home Ex program Therapy Mining Captain Goals: 6 weeks 1. Full functional use [...] she has agreed with it. DEBRA MADRIGAL, ANNABEL documented in this encounter Plan of Treatment Not on file documented as of this encounter Visit Diagnoses Diagnosis Decreased ROM of right shoulder Decreased ROM of left shoulder Pain of right upper arm Pain in limb Bilateral arm weakness Other musculoskeletal symptoms referable to limbs documented in this encounter Care Teams Plastic Extrusion Operator Relationship Specialty Start Date End Date Christine Fuentes PA [address] [place] [address] PCP - General Family Medicine 01/24/17 10/08/19 documented as of this encounter
--- OUTSIDE RECORDS SUMMARY | 2024-02-08 17:11 | XMS_ITS | Encounter Summary ---
[place] [address] Care Team Providers Care Laboratory Inspector Name Role Phone Christine Fuentes Primary Care Provider +1- [phone] Encounter Details Date Type Department Care Team (Late st Contact Info) Description 02/22/2018 Telephone [place] [address] Elaine Song Social History Tobacco Use Types [...] on filedocumented in this encounter Care Teams Laboratory Inspector Relationship Specialty Start Date End Date Christine Fuentes PA [address] [place], [place] [address] PCP - General Family Medicine 01/24/17 10/08/19 documented as of this encounter
--- OUTSIDE RECORDS SUMMARY | 2024-02-08 17:11 | XMS_ITS | Encounter Summary ---
Author Organization [facility] [place] [address] Care Team Providers Care Well Drill Operator Name Role Phone Christine Fuentes Primary Care Provider +1- [phone] Reason for Visit * Auth/Cert Specialty Diagnoses [...] Expiration Date Visits Re quested Visits Authorized [id number] 1 1 Encounter Details Date Type Department Care Team (Late st Contact Info) Description 03/15/2018 6:13 PM EST Anesthesia Event [place] [address] Zhou De Jesus MD [facility] [place] [address] Natty Henriquez MD Anesthesia Record Procedure Summary Procedure Name Responsible Anesthesiologist Anesthesia Start Time Anesthesia Stop Time MASTECTOMY, SIMPLE, COMPLETE-CARITO (WRVU 15) (Bilateral: Breast) Zhou De Jesus MD 03/15/18 1813 03/15/18 2156 Events Date Time Event Comment 03/15/2018 1501 1813 Start 1818 AN Verify 1818 An Start Data 1822 An Induction 1824 An Intubation 1830 Quick Note Bilateral pecto ralis blocks performed per block team 1845 Anesthesia Ready 190 Procedure Start 2142 Extubation/LMA Out 2145 an [...] Yeny BENNETT; Removal Date: 03/15/18; Removal Time: 214203/15/181828 by Francisca Olmos CRNA 03/15/182142 by Sanjuana Loja CRNA Incision 03/15/18; 1841; sarah st; 10/18/21 (LDA cleanup utility RA#[id number]); 1715 (LDA cleanup utility RA#[id number]) 03/15/18 1841 by Lilliam Gill RN 10/18/21 171 by Glen Muro (RETIRED) Peripheral IV Line - Single Lumen 03/15/18; 1856; metacarpal vein (top of hand), left; zflv-xil-xpzosz catheter system; 20 gauge; 03/16/18; 1121 03/15/18 1856 by Francisca Olmos, SALES COUNSELOR 03/16/18 112 by Teresa Johnson RN documented [...] Jesus MD - 03/15/2018 11:23 PM EST [facility] Department of Anesthesiology Post-procedure Note Patient: Cecilia Marx Procedure Summary Date: 03/15/18 Room / Location: [facility] OR [address] [place] [address] MAIN OR Anesthesia Start: 1812 Anesthesia Stop: [...] David Weston MD; Zhou De Jesus MD SALES COUNSELOR: Sanjuana Loja CRNA Student Nurse Baggage And Mail Agent: Francisca Olmos Vitals Value Taken Time BP 129/87 03/15/2018 11:15 PM Temp 36.8 ??C (98.2 ??F) 03/15/2018 11:15 PM Pulse 95 03/15/2018 11:15 PM Resp 16 03/15/2018 11:15 PM SpO2 97 % 03/15/2018 11:17 PM Pain Level 5 03/15/2018 10:52 PM Vitals shown include unvalidated device data. Patient Location: PACU/[facility] Level of Consciousness: Awake and [...] and mask, cap, sterile gloves, hand hygeine V-effdd-qsfau 21 10 cm Ultrasound Guided: Live and [...] Single-shot BUpivacaine 0.25%, 40 mL no complications Resident/SALES COUNSELOR:: Spike Miranda DO Attending Physician:: Zhou De [...] Stereotactic Biopsy Right 01/30/2018 Babs Duvall MD [facility] RAD MAMMOGRAPHY ??? PRO EXCISE BREAST LES W XRAY MARKER Left 03/30/2017 EXCISION LESION, BREAST W/ PREOP.MARKER (NEEDLE LOC.) (WRVU 6.69) performed by Marla Brice MD at [facility] OSC Social History Tobacco Use ??? [...] risks discussed with patient. Plan discussed with SALES COUNSELOR. PAT Staff Note documented in this encounter Plan of Treatment Not on file documented as of this encounter Procedures Procedure Name Priority Date/Time Associated Diagnosis Comments ANESTHESIA BLOCK Routine 03/15/2018 7:27 PM EST documented in this encounter Results * Anesthesia Block (03/15/2018 7:27 PM EST) Narrative Zhou De Jesus MD - 03/15/2018 7:27 PM EST Spike Miranda DO ? 03/15/2018 ??7:29 PM Anesthesia Block [...] and mask, cap, sterile gloves, hand hygeine G-aozmq-kejlr 21 10 cm Ultrasound Guided: ??Live and [...] BUpivacaine 0.25%, 40 mL no complications ?? Resident/SALES COUNSELOR:: ??Spike Miranda, DO Attending Physician:: ??Liza, Zhou Lewis MD 20cc 0.25% infiltrated each side. 10cc for PEC 1 block and 10cc for PEC 2 block. Zhou De Jesus MD PRODUCTION PATTERN MAKER [facility] documented in this encounter Visit Diagnoses Not on filedocumented in this encounter Administered Medications Inactive Administered Medications - up to 3 most recent administrations Medication Order MAR Action Action Date Dose Rate Site BUpivacaine (MARACAINE) 0.25% bolus injection (Anesthesia) Epidural, Starting on Arpita 03/15/18 at 1927, Until Arpita 03/15/18 at 1927, Anesthesia Intra-op, Routine Given 03/15/2018 7:27 PM [...] patch documented in this encounter Care Teams Well Drill Operator Relationship Specialty Start Date End Date Christine Fuentes PA [address] [place] [address] PCP - General Family Medicine 01/24/17 10/08/19 documented as of this encounter
--- OUTSIDE RECORDS SUMMARY | 2024-02-08 17:11 | XMS_ITS | Encounter Summary ---
[place] [address] Care Team Providers Care Hog Cutter Name Role Phone Christine Fuentes Primary Care Provider +1- [phone] Encounter Details Date Type Department Care Team (Late st Contact Info) Description 03/01/2018 Telephone Hematology [place] [address] Domenica Lama LGC Social History Tobacco Use [...] is provided below. Please be advised that [place] law requires that allhealth care workers respect the confidentiality of this information and not pass it along to other health care providers, insurance companies, or individuals without the written permission of the patient. The [facility] welcomes any questions about these matters. Our phone number is: [phone]. On February 21, 2018, Cecilia underwent genetic testing for a hereditary predisposition to common hereditary cancers, including breast, gynecologic and gastrointestinal. Following are the results of thistest. Result: [facility] Common Hereditary Cancers Panel showed no mutation was detected. This means that Cecilia does not carry a mutation in the genes detectable by this test. The following genes were evaluated forsequence changes and exonic deletions/duplications: APC, MARTNIA, AXIN2, BARD1, BMPR1A, BRCA1, BRCA2, BRIP1, CDH1, CDK4, CDKN2A (p14ARF), CDKN2A (l42YRI0s), CHEK2, CTNNA1, DICER1, EPCAM (EPCAM: Deletion/duplication testing only (NM_[id number]), GREM1 (GREM1: Promoter region deletion/duplication testing only.), KIT, MEN1, MLH1, MSH2, MSH3, MSH6, MUTYH, NBN, NF1, PALB2, PDGFRA, PMS2, POLD1, POLE, PTEN, RAD50, RAD51C, RAD51D, SDHB, SDHC, SDHD, SMAD4, SMARCA4, STK11, TP53, TSC1, TSC2, VHL. The following g saira were evaluated for sequence changes only: HOXB13 (c.251G>A, p.Obq46Xpx variant only), NTHL1(NTHL1: Deletion/duplication analysis is not offered for this gene (NM_002528.6), and SDHA. A variant of uncertain significance in the STK11 gene, specifically c.992G>A (p.Vlw483Nwh), was detected. We are enclosing a printed copy of Cecilia's test results. Interpretation: It is unclear at this time whether the STK11 variant of uncertain significance identified in Cecilia is a cancer associated mutation or is a benign change in the gene with no increased cancer risks. [facility] is continually collecting and analyzing their data, [...] screening studies in addition to an annual BASTING MACHINE OPERATOR exam at this time. Other cancer screening ?? Periodic colonoscopy screening as recommended by Cecilia's cook manager. ?? Periodic skin exams documented in this encounter Plan of Treatment Not on file documented as of this encounter Visit Diagnoses Not on filedocumented in this encounter Care Teams Hog Cutter Relationship Specialty Start Date End Date Christine Fuentes PA [address] [place] [address] PCP - General Family Medicine 01/24/17 10/08/19 documented as of this encounter
--- OUTSIDE RECORDS SUMMARY | 2024-02-08 17:11 | XMS_ITS | Encounter Summary ---
[place] [address] Care Team Providers Care Bootmaker Hand Name Role Phone Christine Fuentes Primary Care Provider +1- [phone] Reason for Referral * Diagnostic Test (Routine) - Closed Specialty Diagnoses / Procedures Referred By Contac t Referred To Contact Radiology Diagnoses Ductal carcinoma in situ (DCIS) of right breast Procedures NM [place] Node Injection Breast Marla Reed MD [facility] [address] [place] [address] Referral ID Status Reason Start Date Expiration Date V isits Requested Visits Authorized [id number] Closed Specialty Service Requested 02/23/2018 02/23/2019 1 1 Reason for Visit * Diagnostic Test (Routine) - Closed Specialty Diagnoses / Procedures Referred By Cherie abdul Referred To Contact Radiology Diagnoses Ductal carcinoma in situ (DCIS) of right breast Procedures NM [place] Node Injection Breast Marla Reed MD [facility] [address] [place] [address] Referral ID Status Reason Start Date Expiration Date V isits Requested Visits Authorized [id number] Closed Specialty Service Requested 02/23/2018 02/23/2019 1 1 Encounter Details Date Type Department Care Team (Late st Contact Info) Description 03/15/2018 12:28 PM EST - 03/15/2018 1:10 PM EST Hospital Encounter [place] [address] Marla Brice MD Ductal carcinoma in situ [...] documented in this encounter Results * NM [place] Node Injection Breast wo Imaging (03/15/2018 1:11 PM EST) Anatomical Region Laterality Modality Nuclear Medicine Impressions 03/15/2018 1:50 PM EST [place] node injections performed without complication. Thank you for letting us participate in the care of this patient. For questions regarding this report, please contact the number below. ? Electronically signed by: Aleksandar Ibanez [facility] ([phone]), at 03/15/2018 1:50 PM Narrative 03/15/2018 1:50 [...] patient left the department ingood condition. IMPRESSION [place] node injections performed without complication. Thank you for letting us participate in the care of this patient. Forquestions regarding this report, please contact the number below. Electronically signed by: Aleksandar Ibanez [facility]([phone]), at 03/15/2018 1:50 PM Marla Blue MD [...] mCi documented in this encounter Care Teams Bootmaker Hand Relationship Specialty Start Date End Date Christine Fuentes PA [address] [place] [address] PCP - General Family Medicine 12/5/17 8/18/20 documented as of this encounter
--- OUTSIDE RECORDS SUMMARY | 2024-02-08 17:11 | XMS_ITS | Encounter Summary ---
Author Organization [facility] [place] [address] Care Team Providers Care Cutting Machine Tender Helper Name Role Phone Chrisitne Fuentes Primary Care Provider +1- [phone] Reason for Referral * Consultation (Routine) - Closed Specialty Diagnoses / Procedures Referred By Cherie abdul Referred To Contact Hematology and Oncology Diagnoses Breast cancer screening, high risk patient History of breast cancer Rhoda Brumfield APRN [facility] [place] [address] [facility] Hem Onc Office [address] [place] [address] Referral ID Status Reason Start Date Expiration Date V isits Requested Visits Authorized [id number] Closed Consult, Test & Treat 04/13/2017 04/13/2018 1 1 Reason for Visit * Reason Comments Follow Up Surgery Encounter Details Date Type Department Care Team (Late st Contact Info) Description 04/13/2017 10:45 AM EST Office [place] [address] Rhoda Brumfield APRN Breast cancer screening, high [...] Progress Notes * Rhoda Brumfield APRN - 04/13/2017 10:45 AM EST Ms. Marx [...] requests a referral to Dr Stack in [facility]. She declines an appt with genetics [...] breast documented in this encounter Care Teams Cutting Machine Tender Helper Relationship Specialty Start Date End Date Christine Fuentes PA [address] [place] [address] PCP - General Family Medicine 01/24/17 10/08/19 documented as of this encounter
--- OUTSIDE RECORDS SUMMARY | 2024-02-08 17:11 | XMS_ITS | Encounter Summary ---
Author Organization [place] [address] Care Team Providers Care Health Promoter Name Role Phone Christine Fuentes Primary Care Provider +1- [phone] Encounter Details Date Type Department Care Team (Late st Contact Info) Description 03/30/2017 8:41 AM EST - 03/30/2017 9:23 AM EST Hospital En[place] [address] Marla Brice MD Breast lesion Discharge Disposition: [...] of this encounter Progress Notes * Asher Marrero DO - 03/30/2017 7:41 AM EST Pre-procedure [...] mg documented in this encounter Care Teams Health Promoter Relationship Specialty Start Date End Date Christine Fuentes PA [address] [place] [address] PCP - General Family Medicine 01/24/17 10/08/19 documented as of this encounter
--- OUTSIDE RECORDS SUMMARY | 2024-02-08 17:11 | XMS_ITS | Encounter Summary ---
Author Organization Formerly [facility] [place] [address] Care Team Providers Care Ring Conductor Name Role Phone Christine Fuentes Primary Care Provider +1- [phone] Encounter Details Date Type Department Care Team (Late st Contact Info) Description 02/21/2018 [place] [address] Olga Guan MSW Social History Tobacco Use Types Packs/Day Years Used Date Smoking Tobacco: Former Cigarettes Q uit: 10/19/2011 Smokeless Tobacco: Never Sex and Gender Information Value Date Recorded Sex Assigned at Not on file Gender Identity Not on file Sexual Orientation Not on file documented as of this encounter Progress Notes * Olga Guan MSW - 02/21/2018 2:32 PM EST [facility] met briefly with pt and introduced myself and explained my role in the breast program. Pt had an appt with the genetic counseling program and was not available to meet. I gave pt my contact information and encouraged her to call with any questions or concerns. P- [facility] will Continue to provide support and resources. documented in this encounter Plan of Treatment Not on file documented as of this encounter Visit Diagnoses Not on filedocumented in this encounter Care Teams Ring Conductor Relationship Specialty Start Date End Date Christine Fuentes PA [address] [place] [address] PCP - General Family Medicine 01/24/17 10/08/19 documented as of this encounter
--- OUTSIDE RECORDS SUMMARY | 2024-02-08 17:11 | XMS_ITS | Encounter Summary ---
Author Organization Formerly [facility], [facility] [place] [address] Care Team Providers Care German Instructor Name Role Phone Christine Fuentes Primary Care Provider +1- [phone] Reason for Referral * Diagnostic Test (Routine) - Closed Specialty Diagnoses / Procedures Referred By Cherie abdul Referred To Contact Radiology Diagnoses Malignant neoplasm of right breast in female, estrogen receptor positive, unspecified site of breast Procedures MRI Breast wwo Contrast Marla Pearce MD [facility] [place] [address] [facility] [place] [address] Referral ID Status Reason Start Date Expiration Date V isits Requested Visits Authorized [id number] Closed Specialty Service Requested 02/10/2018 04/10/2018 1 1 Encounter Details Date Type Department Care Team (Late st Contact Info) Description 02/01/2018 Orders [place] [address] Marla Brice MD Malignant neoplasm of right breast in female, [...] contrast enhancement curve analysis was performed, using [employer] software. COMPARISON STUDIES: Compared and/or correlated with [...] contrast enhancement curve analysis was performed, using [employer] software. COMPARISON STUDIES: Compared and/or correlated with [...] or skin.. Marla Blue MD [facility] MRI ORDERABL ES documented in this encounter Visit Diagnoses Diagnosis Malignant neoplasm of right breast in female, estrogen receptor positive, unspecified site of breast Malignant neoplasm of right breast in female, estrogen receptor positive, unspecified site of breast documented in this encounter Care Teams German Instructor Relationship Specialty Start Date End Date Christine Fuentes PA [address] [place] [address] PCP - General Family Medicine 01/24/17 10/08/19 documented as of this encounter
--- OUTSIDE RECORDS SUMMARY | 2024-02-08 17:11 | XMS_ITS | Encounter Summary ---
Author Organization [facility] Address [facility] [place] [address] Care Team Providers Care Filament Welder Name Role Phone Christine Fuentes Primary Care Provider +1- [phone] Reason for Visit * Consultation (Routine) - Closed Specialty Diagnoses / Procedures Referred By Cherie abdul Referred To Contact Dermatology Diagnoses intertrigo Christine Fuentes PA [address] [place] [address] [facility] Dermatology [address] [place] [address] Referral ID Status Reason Start Date Expiration Date V isits Requested Visits Authorized [id number] Closed Consult, Test & Treat Connection Center 05/05/2017 05/05/2018 1 1 Encounter Details Date Type Department Care Team (Late st Contact Info) Description 07/03/2017 10:30 AM EDT Office Visit Dermatology at [facility] [address] [place] [address] Krystyna Estrada MD [facility] [address] [address] Intertrigo Social History Tobacco Use Types Packs/Day [...] - recommended drying the skin with a assistant hairstylist after bathing - Rx: ketoconazole cream - [...] by Krystyna Estrada MD Resident in Dermatology [facility] Patient seen in conjunction with staff tying machine operator: Huang Keller MD Section of Dermatology [facility] * Huang Keller MD - 07/03/2017 10:30 AM EDT I was the supervising physician working with Dermatology resident, Dr. Estrada, in the Dermatology Clinic during this patient visit. The level of resident supervision for this patient visit was indirect supervision with direct supervision immediately available (definition: [facility] Policy Statement on Graduate Medical Education, Supervision of Graduate Medical Trainees). I was immediately available to Dr. Estrada for questions and discussion regarding this visit. I have reviewed his encounter note details and level of service. HUANG KELLER MD [facility] Staff Physician documented in this encounter Plan of Treatment Not on file documented as of this encounter Visit Diagnoses Diagnosis Intertrigo Other specified erythematous condition documented in this encounter Care Teams Filament Welder Relationship Specialty Start Date End Date Christine Feuntes PA [address] [place] [address] PCP - General Family Medicine 01/24/17 10/08/19 documented as of this encounter
--- OUTSIDE RECORDS SUMMARY | 2024-02-08 17:11 | XMS_ITS | Encounter Summary ---
Author Organization Formerly [facility] [place] [address] Care Team Providers Care Car Wrecker Name Role Phone Christine Fuentes Primary Care Provider +1- [phone] Reason for Visit * Auth/Cert Specialty Diagnoses / Procedures Referred By Cherie abdul Referred To Contact Diagnoses LEFT BREAST COMPLEX SCLEROSING LESION Procedures PRO EXCISE BREAST LES W XRAY MARKER EXCISION LESION, BREAST W/ PREOP.MARKER (NEEDLE LOC.) (WRVU 6.69) MODIFIER WITH NEEDLE LOC., LESION #1 Referral ID Status Reason Start Date Expiration Date Visits Re quested Visits Authorized [id number] 1 1 Encounter Details Date Type Department Care Team (Late st Contact Info) Description 03/30/2017 12:44 PM EST Anesthesia Event Outpatient [place] [address] Joey Pham MD [facility] [place] [address] Vahid Osorio MD [facility] [place] [address] Anesthesia Record Procedure Summary Procedure Name Responsible [...] Pham MD - 03/30/2017 2:19 PM EST [facility] Department of Anesthesiology Post-procedure Note Patient: Ceiclia Marx Procedure Summary Date Anesthesia Start Anesthesia Stop Room / Location 03/30/17 1244 1408 [facility] OR / [facility] Procedure Diagnosis Surgeon Responsible Provider EXCISION LESION, BREAST W/ PREOP.MARKER (NEEDLE LOC.) (WRVU 6.69) (Left Axilla); MODIFIER WITH NEEDLE LOC., LESION #1 (Left Breast) (LEFT BREAST COMPLEX SCLEROSING LESION) Marla Brice MD Nguyen, Tung T, MD All Anesthesia Providers: Anesthesiologist: Joey Pham MD SALES AND MARKETING ASSOCIATE: Chapis Santoro CRNA Most Recent Vitals: 03/30/17 1404 BP: 115/79 Pulse: 89 Resp: 16 Temp: 36.8 ??C (98.2 ??F) SpO2: 93% Pain 0 (03/30/17 1404) Patient Location: PACU/[facility] Level of Consciousness: Awake and Alert [...] with patient and spouse. Plan discussed with SALES AND MARKETING ASSOCIATE. PAT Staff Note Attending NOTE Brief HPI: [...] dextrose 5% 100 mL 2 g, Intravenous, SHIP SURVEYOR TO O.R., 1 dose, On Arpita 03/30/17 [...] mL/hr documented in this encounter Care Teams Car Wrecker Relationship Specialty Start Date End Date Christine Fuentes PA [address] [place] [address] PCP - General Family Medicine 01/24/17 10/08/19 documented as of this encounter
--- OUTSIDE RECORDS SUMMARY | 2024-02-08 17:11 | XMS_ITS | Encounter Summary ---
[place] [address] Care Team Providers Care Skein Straightener Name Role Phone Christine Fuentes Primary Care Provider +1- [phone] Encounter Details Date Type Department Care Team (Late st Contact Info) Description 03/18/2018 Telephone [place] [phone] Nick Hodges MD Social History Tobacco Use Types Packs/Day [...] on filedocumented in this encounter Care Teams Skein Straightener Relationship Specialty Start Date End Date Christine Fuentes PA [address] [place] [address] PCP - General Family Medicine 01/24/17 10/08/19 documented as of this encounter
--- OUTSIDE RECORDS SUMMARY | 2024-02-08 17:11 | XMS_ITS | Encounter Summary ---
[place] [address] Care Team Providers Care Service Liaison Representative Name Role Phone Christine Fuentes Primary Care Provider +1- [phone] Reason for Referral * Diagnostic Test (Routine) - Closed Specialty Diagnoses / Procedures Referred By Contac t Referred To Contact Radiology Diagnoses Malignant neoplasm of right breast in female, estrogen receptor positive, unspecified site of breast Procedures MRI Breast wwo Contrast Marla Pearce MD [facility] [place] [place] [address] [place] [address] Referral ID Status Reason Start Date Expiration Date V isits Requested Visits Authorized [id number] Closed Specialty Service Requested 02/10/2018 04/10/2018 1 1 Reason for Visit * Diagnostic Test (Routine) - Closed Specialty Diagnoses / Procedures Referred By Contac t Referred To Contact Radiology Diagnoses Malignant neoplasm of right breast in female, estrogen receptor positive, unspecified site of breast Procedures MRI Breast wwo Contrast Marla Pearce MD [facility] [place] [place] [address] [place] [address] Referral ID Status Reason Start Date Expiration Date V isits Requested Visits Authorized [id number] Closed Specialty Service Requested 02/10/2018 04/10/2018 1 1 Encounter Details Date Type Department Care Team (Late st Contact Info) Description 02/16/2018 10:27 AM EST - 02/16/2018 11:59 PM EST [place] [address] Marla Brice MD Malignant neoplasm of right [...] contrast enhancement curve analysis was performed, using [employer] software. COMPARISON STUDIES: Compared and/or correlated with [...] contrast enhancement curve analysis was performed, using [employer] software. COMPARISON STUDIES: Compared and/or correlated with [...] mLs documented in this encounter Care Teams Service Liaison Representative Relationship Specialty Start Date End Date Christine Fuentes PA [address] [place] [address] PCP - General Family Medicine 01/24/17 10/08/19 documented as of this encounter
--- OUTSIDE RECORDS SUMMARY | 2024-02-08 17:11 | XMS_ITS | Encounter Summary ---
[place] [address] Care Team Providers Care Journeyman Electrician Pv Installer Name Role Phone Christine Fuentes Primary Care Provider +1- [phone] Reason for Referral * Consultation (Urgent) - Closed Specialty Diagnoses / Procedures Referred By Contperez abdul Referred To Contact Hematology and Oncology Diagnoses Hormone receptor positive malignant neoplasm of breast, unspecified laterality Marla Brice MD [facility] [place] [address] [facility] [address] [place] [address] Referral ID Status Reason Start Date Expiration Date V isits Requested Visits Authorized [id number] Closed Consult, Test & Treat 02/02/2018 02/02/2019 1 1 Encounter Details Date Type Department Care Team (Late st Contact Info) Description 02/02/2018 Telephone Hematology [place] [address] Kiersten Wilson RN Social History [...] a 62 y.o. female with newly diagnosed ER/ME+ right breast DCIS (right breast stereotactic guided biopsy [place]30/2018 at [facility] PERSONAL HISTORY of BREAST CANCER Cecilia Marx has a history of right breast DCIS treated with partial mastectomy ([address] Forrester) and radiotherapy (2010 at [facility], [facility]). Cecilia has a history of left breast wide local excision 03/30/[address] Morales (for ADH, ALH, benignpapillary lesion, etc.). She met with Dr. Stack in [facility] after this to discuss chemoprevention which she [...] is in agreement. Referral for urgent apt.with [facility] counselor sent. She prefers to be seen in [facility] over [place], but will take the earliest appt. She [...] laterality documented in this encounter Care Teams Journeyman Electrician Pv Installer Relationship Specialty Start Date End Date Christine Fuentes PA [address] [place] [address] PCP - General Family Medicine 01/24/17 10/08/19 documented as of this encounter
--- OUTSIDE RECORDS SUMMARY | 2024-02-08 17:11 | XMS_ITS | Encounter Summary ---
[place] [address] Care Team Providers Care And Rescue Fire Fighter Crash Fire Name Role Phone Christine Fuentes Primary Care Provider +1- [phone] Encounter Details Date Type Department Care Team (Late st Contact Info) Description 03/12/2018 Telephone Hematology [place] [address] Kiersten Wilson RN Social History Tobacco Use [...] that she will undergo root canal (in [facility]) on 03/13. She has been on penicillin and Tylenol for pain for toothache since 03/10. She is aware [facility] will schedule her post operative appts. with Dr. Brice, a medical oncologist, and PT. Cecilia has our contact numbers. documented in this encounter Plan of Treatment Not on file documented as of this encounter Visit Diagnoses Not on filedocumented in this encounter Care Teams And Rescue Fire Fighter Crash Fire Relationship Specialty Start Date End Date Christine Fuentes PA [address] [place] [address] PCP - General Family Medicine 01/24/17 10/08/19 documented as of this encounter
--- OUTSIDE RECORDS SUMMARY | 2024-02-08 17:11 | XMS_ITS | Encounter Summary ---
Author Organization [facility] [place] [address] Care Team Providers Care History Card Clerk Name Role Phone Christine Fuentes Primary Care Provider +1- [phone] Reason for Referral * Physical Therapy (Routine) - Specialty Diagnoses / Procedures Referred By Cherie abdul Referred To Contact Physical Therapy Diagnoses Decreased range of motion of shoulder, unspecified laterality Marla Brice MD [facility] [place] [address] Referral ID Status Reason Start Date Expiration Date V isits Requested Visits Authorized [id number] Evaluate and Treat 04/09/2018 10/06/2018 1 1 Encounter Details Date Type Department Care Team (Late st Contact Info) Description 04/09/2018 Orders [place] [address] Marla Brice MD Decreased range of motion of shoulder, unspecified [...] Primary documented in this encounter Care Teams History Card Clerk Relationship Specialty Start Date End Date Christine Fuentes PA [address] [place] [address] PCP - General Family Medicine 01/24/17 10/08/19 documented as of this encounter
--- OUTSIDE RECORDS SUMMARY | 2024-02-08 17:11 | XMS_ITS | Encounter Summary ---
Author Organization [facility] Address [facility] [place] [address] Care Team Providers Care Construction Technician Name Role Phone Christine Fuentes Primary Care Provider +1- [phone] Encounter Details Date Type Department Care Team (Latest Contact Info) Description 01/30/2018 12:39 PM EST - 01/30/2018 1:02 PM EST Hospital [place] [address] Anita Valentine MD [facility] [place] [address] Abnormal finding on breast imaging Discharge Disposition: [...] breast documented in this encounter Care Teams Construction Technician Relationship Specialty Start Date End Date Christine Fuentes PA [address] [place] [address] PCP - General Family Medicine 01/24/17 10/08/19 documented as of this encounter
--- OUTSIDE RECORDS SUMMARY | 2024-02-08 17:11 | XMS_ITS | Encounter Summary ---
Author Organization [facility] [place] [address] Care Team Providers Care Pressurizer Name Role Phone Christine Fuentes Primary Care Provider +1- [phone] Reason for Visit * Reason Comments Genetic Evaluation DCIS and fam hx of b reast cancer * Consultation (Urgent) - Closed Specialty Diagnoses / Procedures Referred By Cherie abdul Referred To Contact Hematology and Oncology Diagnoses Hormone receptor positive malignant neoplasm of breast, unspecified laterality Marla Brice MD [facility] [place] [address] [facility] [address] [place] [address] Referral ID Status Reason Start Date Expiration Date V isits Requested Visits Authorized [id number] Closed Consult, Test & Treat 02/02/2018 02/02/2019 1 1 Encounter Details Date Type Department Care Team (Late st Contact Info) Description 02/21/2018 1:00 PM EST Office Visit [place] [address] Domenica Lama, LGC Ductal carcinoma in situ (DCIS) of breast, [...] this encounter Progress Notes * Domenica Lama [facility] - 02/21/2018 1:00 PM EST Ms. Marx was seen by Lazara Lama MS, [facility] in consultation at the request of [...] (grandmother's sister) 45 Maternal ethnic background is [place]. Paternal ethnic background is unknown. Genetic risk [...] sample was drawn today and sent to [place]. ?? The results of the STAT panel [...] Talbot MD CHEMISTRY ORDERABLES Performing Organization Address City/State/[facility] Co de Phone Number [facility] [address] documented in this encounter Visit Diagnoses Diagnosis Ductal carcinoma in situ (DCIS) of breast, unspecified laterality Family history of malignant neoplasm of breast documented in this encounter Care Teams Pressurizer Relationship Specialty Start Date End Date Christine Fuentes PA [address] [place] [address] PCP - General Family Medicine 01/24/17 10/08/19 documented as of this encounter
--- OUTSIDE RECORDS SUMMARY | 2024-02-08 17:12 | XMS_ITS | Encounter Summary ---
Author Organization [facility] [place] [address] Care Team Providers Care Lumber Buyer Name Role Phone Spike Sierra MD Primary Care Provider Reason for Visit * Reason Comments Breast Cancer f/u Encounter Details Date Type Department Care Team (Late st Contact Info) Description 06/14/2010 11:00 AM EDT Follow-Up Radiation Oncology at [address] [phone] Ema Fair MD [facility] [place] [address] DCIS (ductal carcinoma in situ) of breast [...] in this encounter Progress Notes * Nathaniel, Development Assistant - 08/24/2010 7:39 PM EDT * Ema [...] breast documented in this encounter Care Teams Lumber Buyer Relationship Specialty Start Date End Date Spike Sierra MD [address] [place] [address] PCP - General 01/12/10 01/23/17 documented as of this encounter
--- OUTSIDE RECORDS SUMMARY | 2024-02-08 17:12 | XMS_ITS | Encounter Summary ---
[place] [address] Care Team Providers Care Scenery Builder Name Role Phone Spike Sierra MD Primary Care Provider [phone] Reason for Visit * Reason Comments Radiation Follow-up breast cancer Encounter Details Date Type Department Care Team (Late st Contact Info) Description 12/13/2012 2:00 PM EDT Follow-Up Radiation Oncology at [address] [phone] Yolette Waldrop, MIRIAN Breast cancer (Primary Dx) Discharge Disposition: Home [...] this encounter Progress Notes * Yolette Waldrop, MIRIAN - 12/13/2012 2:17 PM EDT Subjective: Patient [...] Forrester & he referred her to [facility] for stereotactic bx. 01/06/10 limited [...] Valentine, who does not rec MRI. Prior MONOTYPE OPERATOR history: w/4 miscarriages. 1st child @ age [...] rec'd. Surveillance: ----11/21/11 B mmg, done @ [facility], requested by Dr. 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 She had a normal mammogram at [facility] (we will request a copy). We reviewed [...] site documented in this encounter Care Teams Scenery Builder Relationship Specialty Start Date End Date Spike Sierra MD [address] [place] [address] PCP - General 01/12/10 01/23/17 documented as of this encounter
--- OUTSIDE RECORDS SUMMARY | 2024-02-08 17:12 | XMS_ITS | Encounter Summary ---
[place] [address] Care Team Providers Care Road Freight Conductor Name Role Phone Spike Sierra MD Primary Care Provider [phone] Encounter Details Date Type Department Care Team (Late st Contact Info) Description 03/09/2010 9:00 AM EST Initial consult Hematology Oncology at [address] [phone] Social History Tobacco Use Types Packs/Day Years Used Date Smoking Tobacco: Never Assessed Sex and Gender Information Value Date Recorded Sex Assigned at Not on file Gender Identity Not on file Sexual Orientation Not on file documented as of this encounter Plan of Treatment Not on file documented as of this encounter Visit Diagnoses Not on filedocumented in this encounter Care Teams Road Freight Conductor Relationship Specialty Start Date End Date Spike Sierra MD [address] [place] [address] PCP - General 01/12/10 01/23/17 documented as of this encounter
--- OUTSIDE RECORDS SUMMARY | 2024-02-08 17:12 | XMS_ITS | Encounter Summary ---
Author Organization [facility] [place] [address] Care Team Providers Care Repairer Typewriter Name Role Phone Unknown Primary Care Provider Unavailabl e Encounter Details Date Type Department Care Team (Late st Contact Info) Description 01/06/2010 [place] [address] Anita Valentine MD [facility] [place] [address] Social History Tobacco Use Types Packs/Day Years [...] 11:19 AM EST) Surgical Pathology Report [id number] ? Location: [facility] The signing pathologist has [...] cm ? to 4.0 x 0.5 cm. ??Amoret-yellow, hemorrhagic, ? fibrofatty. Sections/Proces sing: ?? Submitted [...] in rendering the final pathologic diagnosis. [facility] 01/06/2010 11:1 9 AM EST Anita Valentine MD PATHOLOGY/CYTOLOGY [facility] [place] Performing Organization Address City/State/[facility] Co de Phone Number [facility] documented in this encounter Visit Diagnoses Not on filedocumented in this encounter Care Teams Repairer Typewriter Relationship Specialty Start Date End Date Unknown None PCP - General 10/09/19 documented as of this encounter
--- OUTSIDE RECORDS SUMMARY | 2024-02-08 17:12 | XMS_ITS | Encounter Summary ---
Author Organization [facility] [place] [address] Care Team Providers Care Crimping Press Operator Name Role Phone Spike Sierra MD Primary Care Provider Encounter Details Date Type Department Care Team (Late st Contact Info) Description 03/08/2010 10:00 AM EST Office Visit Radiation Oncology at [address] [phone] Ema Fair MD [facility] [place] [address] Discharge Disposition: Home Social History Tobacco Use [...] on filedocumented in this encounter Care Teams Crimping Press Operator Relationship Specialty Start Date End Date Spike Sierra MD [address] [place] [address] PCP - General 01/12/10 01/23/17 documented as of this encounter
--- OUTSIDE RECORDS SUMMARY | 2024-02-08 17:12 | XMS_ITS | Encounter Summary ---
[place] [address] Care Team Providers Care Policy Writer Name Role Phone Spike Sierra MD Primary Care Provider [phone] Encounter Details Date Type Department Care Team (Late st Contact Info) Description 03/08/2010 9:30 AM EST Office Visit [place] [address] Rad NurseSt Christianson Social History Tobacco Use [...] on filedocumented in this encounter Care Teams Policy Writer Relationship Specialty Start Date End Date Spike Sierra MD [address] [place] [address] PCP - General 01/12/10 01/23/17 documented as of this encounter
--- OUTSIDE RECORDS SUMMARY | 2024-02-08 17:12 | XMS_ITS | Encounter Summary ---
Author Organization [facility] Address [place] [address] Care Team Providers Care Property Underwriter Name Role Phone Spike Sierra MD Primary Care Provider [phone] Encounter Details Date Type Department Care Team (Latest Contact Info) Description 01/04/2016 - 01/04/2016 11:59 PM [facility] Hospital Encounter Radiology Library at [place] [address] Spike Nicolas MD Discharge Disposition: Home Social History Tobacco Use [...] Only Mammo (01/04/2016 12:00 AM EST) Narrative [facility] - 01/13/2017 9:06 AM EST This exam is for storage only and is auto-finalizing. Spike Nicolas MD [facility] FILM LIBRARY ORD ERABLES Performing Organization Address City/State/[facility] Co de Phone Number [place], [place] documented in this encounter Visit Diagnoses Not on filedocumented in this encounter Care Teams Property Underwriter Relationship Specialty Start Date End Date Spike Sierra MD [address] [place] [address] PCP - General 01/12/10 01/23/17 documented as of this encounter
--- OUTSIDE RECORDS SUMMARY | 2024-02-08 17:12 | XMS_ITS | Encounter Summary ---
Author Organization [facility] [place] [address] Care Team Providers Care Spring Assembler Supervisor Name Role Phone Spike Sierra MD Primary Care Provider [phone] Encounter Details Date Type Department Care Team (Late st Contact Info) Description 04/27/2010 8:00 AM EST Follow-Up Radiation Oncology at [address] [phone] Ema Fair MD [facility] [place] [address] Social History Tobacco Use Types Packs/Day Years Used Date Smoking Tobacco: Never Assessed Sex and Gender Information Value Date Recorded Sex Assigned at Not on file Gender Identity Not on file Sexual Orientation Not on file documented as of this encounter Plan of Treatment Not on file documented as of this encounter Visit Diagnoses Not on filedocumented in this encounter Care Teams Spring Assembler Supervisor Relationship Specialty Start Date End Date Spike Sierra MD [address] [place], [place] [address] PCP - General 01/12/10 01/23/17 documented as of this encounter
--- OUTSIDE RECORDS SUMMARY | 2024-02-08 17:12 | XMS_ITS | Encounter Summary ---
Author Organization [facility] [place] [address] Care Team Providers Care Antitank Assault Gunner Name Role Phone Spike Sierra MD Primary Care Provider Reason for Visit * Reason Comments Radiation Follow-up Encounter Details Date Type Department Care Team (Late st Contact Info) Description 06/13/2011 3:30 PM EDT Follow-Up Radiation Oncology at [address] [phone] Ema Fair MD [facility] [place] [address] Breast CA (Primary Dx) Discharge Disposition: Home [...] site documented in this encounter Care Teams Antitank Assault Gunner Relationship Specialty Start Date End Date Spike Sierra MD [address] [place] [address] PCP - General 01/12/10 01/23/17 documented as of this encounter
--- OUTSIDE RECORDS SUMMARY | 2024-02-08 17:12 | XMS_ITS | Encounter Summary ---
Author Organization [facility] [place] [address] Care Team Providers Care Solution Sales Senior Executive Name Role Phone Spike Sierra MD Primary Care Provider [phone] Encounter Details Date Type Department Care Team (Late st Contact Info) Description 03/07/2014 9:00 AM EST Ancillary Appointment Hematology Oncology at [address] [phone] [facility] [place] [address] Social History Tobacco Use Types Packs/Day Years Used Date Smoking Tobacco: Former Cigarettes Q uit: 10/19/2011 Sex and Gender Information Value Date Recorded Sex Assigned at Not on file Gender Identity Not on file Sexual Orientation Not on file documented as of this encounter Progress Notes * Denzel Payne RD - 03/07/2014 8:59 AM EST [facility] Dietitian Follow Up Assessment Seen By: Elida Payne, MS, RD, CAN WORKER, LD Reason for visit: Wanting to lose [...] up to 17 min/treadmill). Logging calories, likes [employer] and [employer] and the meal suggestions, but didn't feel [...] if suboptimal in 3-6 mos. The [facility] series from [facility] – [...] better -- She lost 1 lb during [place] holidays, which her goal was to maintain. 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 Marx in one week (s) to re-evaluate. documented in this encounter Plan of Treatment Not on file documented as of this encounter Visit Diagnoses Not on filedocumented in this encounter Care Teams Solution Sales Senior Executive Relationship Specialty Start Date End Date Spike Sierra MD [address] [place] [address] PCP - General 01/12/10 01/23/17 documented as of this encounter
--- OUTSIDE RECORDS SUMMARY | 2024-02-08 17:12 | XMS_ITS | Encounter Summary ---
Author Organization [facility] [place] [address] Care Team Providers Care Care Management Coordinator Name Role Phone Spike Sierra MD Primary Care Provider [phone] Reason for Visit * Reason Comments Radiation Follow-up Encounter Details Date Type Department Care Team (Late st Contact Info) Description 12/19/2011 3:00 PM EDT Follow-Up Radiation Oncology at [address] [phone] Ema Fair MD [facility] [place] [address] Breast CA (Primary Dx) Discharge Disposition: Home [...] FU today. 11/21/11 B mmg, done @ [facility], requested by Dr. Forrester, whom she recently [...] and Plan: [place]. Request mmg report from [facility]. I rec'd FU in 6 mos, however, [...] site documented in this encounter Care Teams Care Management Coordinator Relationship Specialty Start Date End Date Spike Sierra MD [address] [place] [address] PCP - General 01/12/10 01/23/17 documented as of this encounter
--- OUTSIDE RECORDS SUMMARY | 2024-02-08 17:12 | XMS_ITS | Encounter Summary ---
Author Organization [facility] [place] [address] Care Team Providers Care Hydraulic Press Operator Name Role Phone Spike Sierra MD Primary Care Provider [phone] Encounter Details Date Type Department Care Team (Late st Contact Info) Description 01/06/2010 [place] [address] Kwasi Valentine MD [facility] [place] [address] Social History Tobacco Use Types Packs/Day Years [...] 11:19 AM EST) Surgical Pathology Report ? [facility] ? Provider: ?? KWASI VALENTINE ?Pt. Name: ?? CECILIA MARX ? Acc #: ?[id number] ?Pt. ? Col Date: ?? 01/06/2010 ?/Sex: [...] 0.6 cm ?to 4.0 x 0.5 cm. ??Shepherd-yellow, hemorrhagic, ?fibrofatty. ? Sections/Proces sing: ?? Submitted in (A2-A3). ??(T3) ??aje/SNS ? ---Clinical Information--- ? Specimen Submitted: ? A - Right breast, stereo bx ? Clinical History: ? [facility] ? Provider: ?? KWASI VALENTINE ?Pt. Name: ?? CECILIA MARX ? Acc #: ?[id number] ?Pt. ? Col Date: ?? 01/06/2010 ?/Sex: ?1955,(54 years),Female ? Rec Date: ?? 01/06/2010 ?LOC: ?OPW ? SURGICAL PATHOLOGY ? Calcs, coarse, low suspicion ? Clinical Diagnosis: ? Fat necrosis, FA change, CA unlikely CERNER MILLENNIUM 01/06/2010 11:1 9 AM EST Kwasi Valentine MD PATHOLOGY/CYTOLOGY O RDERABLES [facility] documented in this encounter Visit Diagnoses Not on filedocumented in this encounter Care Teams Hydraulic Press Operator Relationship Specialty Start Date End Date Spike Sierra MD [address] [place] [address] PCP - General 01/12/10 01/23/17 documented as of this encounter
--- OUTSIDE RECORDS SUMMARY | 2024-02-08 17:12 | XMS_ITS | Encounter Summary ---
Author Organization [facility] [place] [address] Care Team Providers Care Personal Lines Sales Executive Name Role Phone Spike Sierra MD Primary Care Provider Encounter Details Date Type Department Care Team (Latest Contact Info) Description 12/31/2014 12:05 AM EST - 12/31/2014 11:[address] [facility] Hospital Encounter Radiology Library at [facility] [place] [address] Spike Nicolas MD Screening breast examination Discharge Disposition: Home Social [...] Only Mammo (12/31/2014 12:05 AM EST) Narrative RAD - 01/11/2017 4:48 PM EST This exam is for storage only and is auto-finalizing. Spike Nicolas MD G FILM LIBRARY ORD ERABLES [place], [place] documented in this encounter Visit Diagnoses Diagnosis Screening breast examination Other screening breast examination documented in this encounter Care Teams Personal Lines Sales Executive Relationship Specialty Start Date End Date Spike Sierra MD [address] [place] [address] PCP - General 01/12/10 01/23/17 documented as of this encounter
--- OUTSIDE RECORDS SUMMARY | 2024-02-08 17:12 | XMS_ITS | Encounter Summary ---
[place] [address] Care Team Providers Care Center Consultant Name Role Phone Spike Sierra MD Primary Care Provider [phone] Encounter Details Date Type Department Care Team (Late st Contact Info) Description 03/09/2010 8:30 AM EST Follow-[place] [address] Rad NurseSt Christianson Social History Tobacco Use [...] on filedocumented in this encounter Care Teams Center Consultant Relationship Specialty Start Date End Date Spike Sierra MD [address] [place] [address] PCP - General 01/12/10 01/23/17 documented as of this encounter
--- OUTSIDE RECORDS SUMMARY | 2024-02-08 17:12 | XMS_ITS | Encounter Summary ---
[place] [address] Care Team Providers Care Mosaic Tile Maker Name Role Phone Spike Sierra MD Primary Care Provider [phone] Encounter Details Date Type Department Care Team (Late st Contact Info) Description 03/23/2010 8:00 AM EST Follow-[place] [address] Colin Cotto MD Social History Tobacco Use [...] on filedocumented in this encounter Care Teams Mosaic Tile Maker Relationship Specialty Start Date End Date Spike Sierra MD [address] [place] [address] PCP - General 01/12/10 01/23/17 documented as of this encounter
--- OUTSIDE RECORDS SUMMARY | 2024-02-08 17:12 | XMS_ITS | Encounter Summary ---
Author Organization [facility] [place] [address] Care Team Providers Care Sticker Machine Operator Name Role Phone Unavailable Primary Care Provider Unavailabl e Encounter Details Date Type Department Care Team (Latest Contact Info) Description 12/03/2009 - 12/03/2009 11:59 PM EDT Hospital Encounter Radiology Library at [facility] [place] [phone] Spike Nicolas MD Discharge Disposition: Home Social [...] Only Mammo (12/03/2009 12:00 AM EDT) Narrative RAD - 01/13/2017 9:12 AM EST This exam is for storage only and is auto-finalizing. Spike Nicolas MD IMG FILM LIBRARY ORD ERABLES [place] documented in this encounter Visit Diagnoses Not on filedocumented in this encounter
--- OUTSIDE RECORDS SUMMARY | 2024-02-08 17:12 | XMS_ITS | Encounter Summary ---
[place] [address] Care Team Providers Care Household Appliances Salesperson Name Role Phone Unavailable Primary Care Provider Unavailabl e Encounter Details Date Type Department Care Team (Late st Contact Info) Description 01/06/2010 9:10 AM EST Procedure visit [place] [address] Social History Tobacco Use Types Packs/Day Years [...]
--- OUTSIDE RECORDS SUMMARY | 2024-02-08 17:12 | XMS_ITS | Encounter Summary ---
[place] [address] Care Team Providers Care Pattern Stamper Name Role Phone Spike Sierra MD Primary Care Provider [phone] Reason for Visit * Reason Onset Date Comments Other 03/07/2011 question regardi ng hormone suppository Encounter Details Date Type Department Care Team (Late st Contact Info) Description 03/07/2011 Telephone Radiation Oncology at [address] [phone] Jessica Boyer, RN Other (question [...] calls stating that she recently saw her PLAYGROUND SUPERVISOR physician, Dr Yasemin Selby, for c/o vaginal [...] she meet with Dr Stack here at [facility] to discuss her question. Will ask trade union secretary to contact pt w/ this appt. documented in this encounter Plan of Treatment Not on file documented as of this encounter Visit Diagnoses Not on filedocumented in this encounter Care Teams Pattern Stamper Relationship Specialty Start Date End Date Spike Sierra MD [address] [place] [address] PCP - General 01/12/10 01/23/17 documented as of this encounter
--- OUTSIDE RECORDS SUMMARY | 2024-02-08 17:12 | XMS_ITS | Encounter Summary ---
Author Organization [facility] [address] Care Team Providers Care Raw Cheese Worker Name Role Phone Spike Sierra MD Primary Care Provider [phone] Encounter Details Date Type Department Care Team (Late st Contact Info) Description 03/31/2010 11:00 AM EST Follow-[place] [address] Ema Fair MD [facility] [place] [address] Social History Tobacco Use Types Packs/Day Years Used Date Smoking Tobacco: Never Assessed Sex and Gender Information Value Date Recorded Sex Assigned at Not on file Gender Identity Not on file Sexual Orientation Not on file documented as of this encounter Plan of Treatment Not on file documented as of this encounter Visit Diagnoses Not on filedocumented in this encounter Care Teams Raw Cheese Worker Relationship Specialty Start Date End Date Spike Sierra MD [address] [place] [address] PCP - General 01/12/10 01/23/17 documented as of this encounter
--- OUTSIDE RECORDS SUMMARY | 2024-02-08 17:12 | XMS_ITS | Encounter Summary ---
Author Organization [facility] [place] [address] Care Team Providers Care Meter And Regulator Shop Supervisor Name Role Phone Spike Sierra MD Primary Care Provider [phone] Encounter Details Date Type Department Care Team (Latest Contact Info) Description 07/01/2015 - 07/01/2015 11:59 PM EDT Hospital Encounter Radiology Library at [facility] [place] [address] Spike Nicolas MD Discharge Disposition: Home Social [...] Nicolas MD G FILM LIBRARY ORD ERABLES Performing Organization Address City/State/[place] Co de Phone Number [place], [place] documented in this encounter Visit Diagnoses Not on filedocumented in this encounter Care Teams Meter And Regulator Shop Supervisor Relationship Specialty Start Date End Date Spike Sierra MD [address] [place] [address] PCP - General 01/12/10 01/23/17 documented as of this encounter
--- OUTSIDE RECORDS SUMMARY | 2024-02-08 17:12 | XMS_ITS | Encounter Summary ---
[place] [address] Care Team Providers Care Special Services Director Name Role Phone Christine Fuentes Primary Care Provider [phone] Reason for Visit * Auth/Cert Specialty Diagnoses / Procedures Referred By Cherie abdul Referred To Contact Diagnoses LEFT BREAST COMPLEX SCLEROSING LESION Procedures PRO EXCISE BREAST LES W XRAY MARKER EXCISION LESION, BREAST W/ PREOP.MARKER (NEEDLE LOC.) (WRVU 6.69) MODIFIER WITH NEEDLE LOC., LESION #1 Referral ID Status Reason Start Date Expiration Date Visits Re quested Visits Authorized [id number] 1 1 Encounter Details Date Type Department Care Team (Late st Contact Info) Description 03/30/2017 9:24 AM EST - 03/30/2017 3:00 PM EST Hospital Encounter [place] [phone] Savana Zepeda MD Discharge Disposition: Home Social History Tobacco [...] closest emergency room or call the hospital coater operator insulation board at [phone] and ask for physician corrosion control engineer covering for your physician. Questions or problems after 5pm or on a weekend: Call the [facility] coater operator insulation board at and ask for the physician corrosion control engineer covering for your doctor. * Patient Instructions* [...] 04/13/2017 10:45 AM Rhoda Brumfield APRN [facility] Call Doctor for: Worsening redness or drainage from your incision lasting longer than 5 days following surgery Any foul-smelling drainage from the incision Fevers greater than 101 degrees F Persistent nausea or vomiting (this may be related to opioid pain medications) Phone number for questions: [phone] before 5 PM weekdays [phone] after 5 PM and on weekends/holidays documented [...] Zepeda MD - 03/30/2017 1:48 PM EST [facility] [place] Patient Name: Cecilia Marx : [id number] MR#: [id number] Case Date: 03/30/2017 Surgeon: Surgeon(s) and Role: [...] Operative Note Patient Name: Cecilia Marx : [id number] MR#: [id number] Case Date: 03/30/2017 Surgeon: Surgeon(s) and Role: [...] PM EST 03/30/2017 2:20 PM EST Narrative [facility] - 03/30/2017 2:20 PM EST Specimen requisition ordered. ??Separate Pathology report to follow Resulting Agency Comment Spec In Lab Savana Blue MD PATHOLOGY/CYTOLO GY ORDERABLES [facility] [place] [address] * Surgical Pathology Report (03/30/2017 1:22 PM EST) Final Diagnosis [id number] ? Location: OSC The signing pathologist has [...] Delon Lewis Verified: ??04/05/2017 ?Pathologist Performed at: ??-[facility] [place], [place], [place] DISCUSSION Two separate foci of atypical [...] clip is within slice XII. SECTIONS/PROCESSING: (1) manufacturers service representative perpendicular slice I, orange-cranial margin; (2) manufacturers service representative slice VIII; (3) manufacturers service representative slice IX; (4) manufacturers service representative slice X; (5) manufacturers service representative slice XI; (6) manufacturers service representative slice XII, with cylinder clip; (7) slice XIII, with lesion; (8) slice XIV, with lesion; (9) manufacturers service representative perpendicular slice XV. (R9) Ischemic Time: 85 minutes ??chinyere Additional sections: (10) remaining slice VIII; (11) slice III; (12) fibrous tissue central slice V; (13-14) bisected slice VII. (R14) chinyere 04/05/2017 9:19 AM EST [facility] BREAST STRUCTURE / Unknown 03/30/2017 1:22 PM EST 03/30/2017 1:22 PM EST Savana Blue MD PATHOLOGY/CYTOLO GY ORDERABLES [facility] [place] [id number] documented in this encounter Visit Diagnoses Not [...] 5% 100 mL (COMPLETED) 2 g, Intravenous, WOMEN'S GARMENT FITTER TO O.R., 1 dose, On Arpita 03/30/17 [...] Routine documented in this encounter Care Teams Special Services Director Relationship Specialty Start Date End Date Christine Fuentes PA [address] [place] [address] PCP - General Family Medicine 01/24/17 10/08/19 documented as of this encounter
--- OUTSIDE RECORDS SUMMARY | 2024-02-08 17:12 | XMS_ITS | Encounter Summary ---
Author Organization [facility] Address [facility] [place] [address] Care Team Providers Care Audio Visual Technician Name Role Phone Christine Fuentes Primary Care Provider [phone] Encounter Details Date Type Department Care Team (Latest Contact Info) Description 02/01/2017 12:40 PM EST - 02/01/2017 11:59 PM EST Hospital [place] [address] Anita Valentine MD [facility] [place] [address] Abnormal finding on breast imaging Discharge Disposition: [...] Report (02/01/2017 1:46 PM EST) Final Diagnosis [id number] ? Location: 3L The signing pathologist has [...] Alayna Valdes Verified: ??02/02/2017 ?Pathologist Performed at: ??-[facility] [place], [place], [place] DISCUSSION Multiple foci of complex sclerosing [...] sing: (T2) ??shb 02/02/2017 2:[address] [facility] BREAST STRUCTURE / Unknown 02/01/2017 1:46 PM EST 02/01/2017 1:46 PM EST Evans Almanzar MD PATHOLOGY/CYTOLOGY ORDERABLES [facility] [place] [address] * Mammo Breast Us Limited Left (02/01/2017 [...] core biopsy specimens were obtained using a [employer] Eviva 9g 20mm device. A specimen radiograph confirms the mass with distorted edges to be contained within it. This also contains the incidental microcalcifications associated with the area of concern. A [employer] Eviva cylinder marker clip was deployed. A [...] breast documented in this encounter Care Teams Audio Visual Technician Relationship Specialty Start Date End Date Christine Fuentes PA [address] [place] [address] PCP - General Family Medicine 01/24/17 10/08/19 documented as of this encounter
--- OUTSIDE RECORDS SUMMARY | 2024-02-08 17:12 | XMS_ITS | Encounter Summary ---
Author Organization [place] [address] Care Team Providers Care Hand Launderer Name Role Phone Spike Sierra MD Primary Care Provider Encounter Details Date Type Department Care Team (Latest Contact Info) Description 12/04/2012 - 12/04/2012 11:59 PM EDT Hospital Encounter Radiology Library at [facility] [place] [address] Spike Nicolas MD Screening breast examination Discharge [...] Only Mammo (12/04/2012 12:00 AM EDT) Narrative RAD - 01/11/2017 4:43 PM EST This exam is for storage only and is auto-finalizing. Spike Nicolas MD G FILM LIBRARY ORD ERABLES [place], [place] documented in this encounter Visit Diagnoses Diagnosis Screening breast examination Other screening breast examination documented in this encounter Care Teams Hand Launderer Relationship Specialty Start Date End Date Spike Sierra MD [address] [place] [address] PCP - General 01/12/10 01/23/17 documented as of this encounter
--- OUTSIDE RECORDS SUMMARY | 2024-02-08 17:12 | XMS_ITS | Encounter Summary ---
Author Organization [facility] Address [facility] [place] [address] Care Team Providers Care Wireless Cellular Technician Name Role Phone Spike Sierra MD Primary Care Provider [phone] Encounter Details Date Type Department Care Team (Latest Contact Info) Description 12/31/2014 - 12/31/2014 12:04 AM [facility] Hospital Encounter Radiology Library [place] [facility] [place] [address] Spike Nicolas MD Screening breast examination Discharge [...] Only Mammo (12/31/2014 12:00 AM EST) Narrative RAD - 01/11/2017 4:47 PM EST This exam is for storage only and is auto-finalizing. Spike Nicolas MD [facility] FILM LIBRARY ORD ERABLES Performing Organization Address City/State/[facility] Co de Phone Number [place], [place] documented in this encounter Visit Diagnoses Diagnosis Screening breast examination Other screening breast examination documented in this encounter Care Teams Wireless Cellular Technician Relationship Specialty Start Date End Date Spike Sierra MD [address] [place] [address] PCP - General 01/12/10 01/23/17 documented as of this encounter
--- OUTSIDE RECORDS SUMMARY | 2024-02-08 17:12 | XMS_ITS | Encounter Summary ---
Author Organization [facility] Address [facility] [place] [address] Care Team Providers Care Senior Software Quality Engineer Name Role Phone Spike Sierra MD Primary Care Provider Encounter Details Date Type Department Care Team (Latest Contact Info) Description 01/20/2017 4:53 PM EST - 01/20/2017 11:59 PM EST Hospital Encounter Radiology Library [place] [address] Christine Fuentes PA [address] [place] [address] Abnormal finding on breast imaging Discharge Disposition: [...] ultrasound Please note: The interpretation of the [facility] Breast Imaging Radiologist subspecialist may differ from the original radiologists interpretation. This is usually not due to a deficiency of the original interpreting radiologist, rather due to the greater skill level afforded by sub-specialization in the field and/or reasonable variations in interpretations. If you have a concern regarding the [facility] interpretation you may contact the [facility] Breast Hand Stripper Office at . Narrative 01/23/2017 5:03 PM [...] alter care of Patient. Yes. ?? COMPARISONS: [phone] FINDINGS: The breasts of scattered fiber glandular [...] alter the care of thispatient. STUDIES FROM: [facility] DATES: 01/06/2017 CLINICAL HISTORY: ABNORMAL IMAGIN-LEFT BREAST, CAT 3; ? BX; ? MOREIMAGING; What Modality is the exam? Mammography; Body Part (please add comments asnecessary): LEFT BREAST; I believe a reinterpretation of this exam may alter care of Patient. Yes. COMPARISONS: [phone] FINDINGS: The breasts of scattered fiber glandular [...] ultrasound Please note: The interpretation of the [facility] BreastImaging Radiologist subspecialist may differ from the original radiologists interpretation. This is usually not due to a deficiency of the original interpreting radiologist, rather due to the greater skill level affordedby sub-specialization in the field and/or reasonable variations ininterpretations. If you have a concern regarding the [facility] interpretation you may [facility] at . Christine COTO IMG OUTSIDE INTERP RETATION ORDERABLES documented in this encounter Visit Diagnoses Diagnosis Abnormal finding on breast imaging Other (abnormal) findings on radiological examination of breast documented in this encounter Care Teams Senior Software Quality Engineer Relationship Specialty Start Date End Date Spike Sierra MD [address] [place] [address] PCP - General 01/12/10 01/23/17 documented as of this encounter
--- OUTSIDE RECORDS SUMMARY | 2024-02-08 17:12 | XMS_ITS | Encounter Summary ---
Author Organization [facility] [place] [address] Care Team Providers Care Nutrition Services Assistant Name Role Phone Spike Sierra MD Primary Care Provider [phone] Encounter Details Date Type Department Care Team (Late st Contact Info) Description 04/08/2014 1:00 PM EST Ancillary Appointment Hematology Oncology at [address] [phone] [facility] [place] [address] Social History Tobacco Use Types Packs/Day Years Used Date Smoking Tobacco: Former Cigarettes Q uit: 10/19/2011 Sex and Gender Information Value Date Recorded Sex Assigned at Not on file Gender Identity Not on file Sexual Orientation Not on file documented as of this encounter Progress Notes * Denzel Payne RD - 04/08/2014 1:10 PM EST [facility] Dietitian Follow Up Assessment Seen By: Elida Payne, MS, RD, SCHOOL PRINCIPAL, LD Reason for visit: Wanting to lose [...] needs: 1.5 - 2 L Food Intake: [employer] she fell off the wagon in February [...] calories for about the first , likes RETAIL PRO and NitroSecurity and the meal suggestions, but didn't feel [...] levels, if suboptimal in 3-6 mos. The [facility] series from [facility] September 2008 showed a lower risk of [...] We reviewed workout dvds, websites with videos (Bitcast) -- Holding herself accountable. Log/Count calories (using [...] (AND) -- Stop Stress Eating -- Healthy chef kitchen manager ([place]) -- pedometer Other Recommendations: Monitoring and Evaluation: Will follow up with Mrs. Marx in one week (s) to re-evaluate. documented in this encounter Plan of Treatment Not on file documented as of this encounter Visit Diagnoses Not on filedocumented in this encounter Care Teams Nutrition Services Assistant Relationship Specialty Start Date End Date Spike Sierra MD [address] [place] [address] PCP - General 01/12/10 01/23/17 documented as of this encounter
--- OUTSIDE RECORDS SUMMARY | 2024-02-08 17:12 | XMS_ITS | Encounter Summary ---
Author Organization [facility] Address [facility] [place] [address] Care Team Providers Care Transport Nurse Name Role Phone Spike Sierra MD Primary Care Provider Reason for Visit * Reason Comments Radiation Follow-up Encounter Details Date Type Department Care Team (Late st Contact Info) Description 12/13/2010 1:30 PM EDT Follow-Up Radiation Oncology at [address] [phone] Ema Fair MD [facility] [address] [place] [address] Breast ca (Primary Dx) Discharge Disposition: Home [...] site documented in this encounter Care Teams Transport Nurse Relationship Specialty Start Date End Date Spike Sierra MD [address] [place] [address] PCP - General 01/12/10 01/23/17 documented as of this encounter
--- OUTSIDE RECORDS SUMMARY | 2024-02-08 17:12 | XMS_ITS | Encounter Summary ---
[place] [address] Care Team Providers Care Remittance Clerk Name Role Phone Unavailable Primary Care Provider Unavailabl e Encounter Details Date Type Department Care Team (Late st Contact Info) Description 01/06/2010 10:00 AM EST Procedure [place] [address] Social History Tobacco Use Types Packs/Day Years [...]
--- OUTSIDE RECORDS SUMMARY | 2024-02-08 17:12 | XMS_ITS | Encounter Summary ---
Author Organization [facility] [place] [address] Care Team Providers Care Technical Account Manager Name Role Phone Spike Sierra MD Primary Care Provider [phone] Encounter Details Date Type Department Care Team (Latest Contact Info) Description 01/06/2017 12:05 AM EST - 01/06/2017 11:59 PM [facility] Hospital Encounter Radiology Library at [facility] [place] [address] Spike Nicolas MD Discharge Disposition: Home Social [...] Only Mammo (01/06/2017 12:05 AM EST) Narrative RAD - 01/10/2017 4:31 PM EST This exam is for storage only and is auto-finalizing. Spike Nicolas MD [facility] FILM LIBRARY ORD ERABLES [place], [place] documented in this encounter Visit Diagnoses Not on filedocumented in this encounter Care Teams Technical Account Manager Relationship Specialty Start Date End Date Spike Sierra MD [address] [place] [address] PCP - General 01/12/10 01/23/17 documented as of this encounter
--- OUTSIDE RECORDS SUMMARY | 2024-02-08 17:12 | XMS_ITS | Encounter Summary ---
Author Organization [facility] [place] [address] Care Team Providers Care Manager Massage Department Name Role Phone Spike Sierra MD Primary Care Provider Encounter Details Date Type Department Care Team (Late st Contact Info) Description 04/20/2010 8:00 AM EST Follow-Up Radiation Oncology at [address] [phone] Ema Fair MD [facility] [place] [address] Social History Tobacco Use Types Packs/Day Years Used Date Smoking Tobacco: Never Assessed Sex and Gender Information Value Date Recorded Sex Assigned at Not on file Gender Identity Not on file Sexual Orientation Not on file documented as of this encounter Plan of Treatment Not on file documented as of this encounter Visit Diagnoses Not on filedocumented in this encounter Care Teams Manager Massage Department Relationship Specialty Start Date End Date Spike Sierra MD [address] [place], [place] [address] PCP - General 01/12/10 01/23/17 documented as of this encounter
--- OUTSIDE RECORDS SUMMARY | 2024-02-08 17:12 | XMS_ITS | Encounter Summary ---
[place] [address] Care Team Providers Care Clinical Pharmacologist Name Role Phone Spike Sierra MD Primary Care Provider Reason for Visit * Reason Onset Date Comments Other 07/05/2011 answer patient q uestion Encounter Details Date Type Department Care Team (Late st Contact Info) Description 07/05/2011 Telephone Radiation Oncology at [address] [phone] Daniel Boyer, RN Other (answer patient question) [...] 2011 11:53 AM Regarding: re:upcoming appt Contact: [phone] Please call pt back. She said there was some confusion with what she thought the upcoming appt was going to be about. I called patient and she confirmed that she received appt to see the nurse practitioner,Yolette Coon 07/13, but she feels it is too soon after seeing Dr Fair in May. She states she is now seeinga Mosque counselor through her caodaism and this is helping with her depression. She is agreeable to seeing the nurse practitioner, but prefers to wait until the routine follow up appt would be. Shewishes to cancel the 07/13 appointment. She voiced that she will call this clinic if she feels the current arrangement w/ her caodaism is not helpful. Plan: Will cancel the 07/13 appt w/ C. Pace. I will ask Dr Fair in this week's team meeting, when she wishes for the appt to be rescheduled to. documented in this encounter Plan of Treatment Not on file documented as of this encounter Visit Diagnoses Not on filedocumented in this encounter Care Teams Clinical Pharmacologist Relationship Specialty Start Date End Date Spike Sierra MD [address] [place] [address] PCP - General 01/12/10 01/23/17 documented as of this encounter
--- OUTSIDE RECORDS SUMMARY | 2024-02-08 17:12 | XMS_ITS | Encounter Summary ---
Author Organization [facility] [place] [address] Care Team Providers Care Mincing Machine Operator Name Role Phone Spike Sierra MD Primary Care Provider [phone] Encounter Details Date Type Department Care Team (Latest Contact Info) Description 01/17/2014 Unscheduled Encounter Hematology Oncology at [address] [phone] [facility] [place] [address] Dietary surveillance and counseling Social History Tobacco Use Types Packs/Day Years Used Date Smoking Tobacco: Former Cigarettes Q uit: 10/19/2011 Sex and Gender Information Value Date Recorded Sex Assigned at Not on file Gender Identity Not on file Sexual Orientation Not on file documented as of this encounter Progress Notes * Denzel Payne, MUMTAZ - 01/17/2014 1:00 PM EST [facility] Dietitian Follow Up Assessment Seen By: Elida Payne, MS, RD, PAINTING TRADES WORKER, LD Reason for visit: Wanting to [...] have eggs and toast Noon: can of Vivinto lite soup and pickels Pm: lean cuisine [...] up to 17 min/treadmill). Logging calories, likes Intucell and the meal suggestions, but didn't feel [...] levels, if suboptimal in 3-6 mos. The [facility] series from [facility] [...] counseling documented in this encounter Care Teams Mincing Machine Operator Relationship Specialty Start Date End Date Spike Sierra MD [address] [place] [address] PCP - General 01/12/10 01/23/17 documented as of this encounter
--- OUTSIDE RECORDS SUMMARY | 2024-02-08 17:12 | XMS_ITS | Encounter Summary ---
Author Organization [facility] [place] [address] Care Team Providers Care Supervisor Bridges And Buildings Name Role Phone Spike Sierra MD Primary Care Provider [phone] Encounter Details Date Type Department Care Team (Late st Contact Info) Description 01/31/2014 9:00 AM EST Ancillary Appointment Hematology Oncology at [address] [phone] [facility] [place] [address] Social History Tobacco Use Types Packs/Day Years Used Date Smoking Tobacco: Former Cigarettes Q uit: 10/19/2011 Sex and Gender Information Value Date Recorded Sex Assigned at Not on file Gender Identity Not on file Sexual Orientation Not on file documented as of this encounter Progress Notes * Denzel Payne RD - 01/31/2014 9:02 AM EST [facility] Dietitian Follow Up Assessment Seen By: Elida Payne, MS, RD, E COMMERCE SPECIALIST, LD Reason for visit: Wanting to [...] up to 17 min/treadmill). Logging calories, likes [employer] and [employer] and the meal suggestions, but didn't feel [...] if suboptimal in 3-[address] [facility] series from [facility] [...] filedocumented in this encounter Care Teams Supervisor Bridges And Buildings Relationship Specialty Start Date End Date Spike Sierra MD [address] [place] [address] PCP - General 01/12/10 01/23/17 documented as of this encounter
--- OUTSIDE RECORDS SUMMARY | 2024-02-08 17:12 | XMS_ITS | Encounter Summary ---
Author Organization [facility] [place] [address] Care Team Providers Care Hob Mill Operator Name Role Phone Spike Sierra MD Primary Care Provider [phone] Encounter Details Date Type Department Care Team (Late st Contact Info) Description 01/09/2014 2:00 PM EST Ancillary Appointment Hematology Oncology at [address] [phone] [facility] [place] [address] Social History Tobacco Use Types Packs/Day Years Used Date Smoking Tobacco: Former Cigarettes Q uit: 10/19/2011 Sex and Gender Information Value Date Recorded Sex Assigned at Not on file Gender Identity Not on file Sexual Orientation Not on file documented as of this encounter Progress Notes * Denzel Payne RD - 01/09/2014 2:21 PM EST [facility] Initial Dietitian Assessment Seen By: Elida Payne MS, RD, E COMMERCE ANALYST, LD Referred by: Yolette Waldrop APRN Reason [...] have eggs and toast Noon: can of Cerebrexo lite soup and pickels Pm: lean cuisine [...] if suboptimal in 3-6 mos. The [facility] series from [facility] September 2008 showed a lower risk of [...] on filedocumented in this encounter Care Teams Hob Mill Operator Relationship Specialty Start Date End Date Spike Sierra MD [address] [place] [address] PCP - General 01/12/10 01/23/17 documented as of this encounter
--- OUTSIDE RECORDS SUMMARY | 2024-02-08 17:12 | XMS_ITS | Encounter Summary ---
Author Organization [facility] [place] [address] Care Team Providers Care Railway Engineer Name Role Phone Spike Sierra MD Primary Care Provider Encounter Details Date Type Department Care Team (Latest Contact Info) Description 11/08/2010 - 11/08/2010 11:59 PM EDT Hospital Encounter Radiology Library at [facility] [place] [phone] Spike Nicolas MD Pain Discharge Disposition: Home Social History Tobacco [...] Nicolas MD G FILM LIBRARY ORD ERABLES [place], [place] documented in this encounter Visit Diagnoses Diagnosis Pain Generalized pain documented in this encounter Care Teams Railway Engineer Relationship Specialty Start Date End Date Spike Sierra MD [address] [place] [address] PCP - General 01/12/10 01/23/17 documented as of this encounter
--- OUTSIDE RECORDS SUMMARY | 2024-02-08 17:12 | XMS_ITS | Encounter Summary ---
[place] [address] Care Team Providers Care Sales Analytics Manager Name Role Phone Christine Fuentes Primary Care Provider [phone] Encounter Details Date Type Department Care Team (Late st Contact Info) Description 03/08/2017 10:15 AM EST Office Visit [place] [phone] Marla Brice MD Sclerosing adenosis of left breast Social History [...] bony pain or tenderness.stopped drinking wine around [place] time due to depression. Reports a left [...] breast documented in this encounter Care Teams Sales Analytics Manager Relationship Specialty Start Date End Date Christine Fuentes PA [address] [place] [address] PCP - General Family Medicine 01/24/17 10/08/19 documented as of this encounter
--- OUTSIDE RECORDS SUMMARY | 2024-02-08 17:12 | XMS_ITS | Encounter Summary ---
Author Organization [facility] [place] [address] Care Team Providers Care Inking Machine Tender Name Role Phone Unavailable Primary Care Provider Unavailabl e Encounter Details Date Type Department Care Team (Latest Contact Info) Description 12/04/2009 12:05 AM EDT - 12/04/2009 11:59 PM EDT Hospital Encounter Radiology Library at [facility] [place] [address] Spike Nicolas MD Discharge Disposition: Home Social [...] Only Mammo (12/04/2009 12:05 AM EDT) Narrative RAD - 01/13/2017 9:16 AM EST This exam is for storage only and is auto-finalizing. Spike Nicolas MD IMG FILM LIBRARY ORD ERABLES [facility] documented in this encounter Visit Diagnoses Not on filedocumented in this encounter
--- OUTSIDE RECORDS SUMMARY | 2024-02-08 17:12 | XMS_ITS | Encounter Summary ---
Author Organization [facility] Address [facility] [place] [address] Care Team Providers Care Headlight Adjuster Name Role Phone Christine Fuentes Primary Care Provider [phone] Reason for Visit * Consultation (Routine) - Closed Specialty Diagnoses / Procedures Referred By Cherie abdul Referred To Contact Hematology and Oncology Diagnoses Abnormal magnetic resonance imaging of left breast Christine Fuentes PA [address] [place] [address] [facility] [address] [place] [address] Referral ID Status Reason Start Date Expiration Date V isits Requested Visits Authorized [id number] Closed Consult, Test & Treat PCP Updated and/or Approved 01/20/2017 01/20/2018 1 1 Encounter Details Date Type Department Care Team (Latest Contact Info) Description 02/01/2017 12:38 PM EST - 02/01/2017 12:39 PM EST Hospital Encounter [place] [address] Anita Valentine MD [facility] [place] [address] Abnormal finding on breast imaging [...] core biopsy specimens were obtained using a [employer] Accessiva 9g 20mm device. A specimen radiograph confirms [...] core biopsy specimens were obtained using a [employer] [place] Eviva 9g 20mm device. A specimen radiograph [...] core biopsy specimens were obtained using a [employer] [place] Eviva 9g 20mmdevice. A specimen radiograph confirms [...] PM EST 02/01/2017 1:46 PM EST Narrative [facility] - 02/01/2017 1:46 PM EST Specimen requisition ordered. ??Separate Pathology report to follow Evans Almanzar MD PATHOLOGY/CYTOLOGY ORDERABLES [facility] [place] [place] [address] documented in this encounter Visit Diagnoses Diagnosis [...] mg documented in this encounter Care Teams Headlight Adjuster Relationship Specialty Start Date End Date Christine Fuentes PA [address] [place] [address] PCP - General Family Medicine 01/24/17 10/08/19 documented as of this encounter
--- OUTSIDE RECORDS SUMMARY | 2024-02-08 17:12 | XMS_ITS | Encounter Summary ---
Author Organization [facility] [place] [address] Care Team Providers Care Property Insurance Inspector Name Role Phone Spike Sierra MD Primary Care Provider Reason for Referral * Consultation (Routine) - Closed Specialty Diagnoses / Procedures Referred By Cherie abdul Referred To Contact Hematology and Oncology Diagnoses Breast cancer, right Yolette Waldrop APRN [facility] [place] [address] [facility] Hem Onc Infusion [address] [place] [phone] Referral ID Status Reason Start Date Expiration Date V isits Requested Visits Authorized [id number] Closed Continuity of Care 12/27/2013 06/25/2014 1 1 Reason for Visit * Reason Comments Radiation Follow-up breast cancer Encounter Details Date Type Department Care Team (Late st Contact Info) Description 12/26/2013 9:00 AM EST Follow-Up Radiation Oncology at [address] [phone] Yolette Waldrop APRN Breast cancer, right (Primary Dx) Discharge Disposition: [...] Dr. Forrester & he referred her to [facility] for stereotactic bx. 01/06/10 limited U/S R [...] Valentine, who does not rec MRI. 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 1st child @ age [...] in situ Tumor Staging from Staging System [id number] You had stage 0 breast cancer with a good prognosis Size of Primary Malignancy 0.22 cm Grade Low grade Margin Negative--localized breast cancer ER positive [place] positive Family history Mother with history of breast cancer at age 53 Hormone therapy none Chemotherapy none Radiation therapy Total dose of radiation 60.4 Gy Surveillance: ----11/21/11 B mmg, done @ [facility], requested by Dr. 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 She had a normal mammogram at [facility] (we will request a copy). We reviewed [...] concerns. She would like to meet with budget specialist todiscuss weight loss --referral made. documented in this encounter Plan of Treatment Scheduled Referrals Name Type Priority Associated Diagnoses Orde r Schedule Referral to Nutrition Services Outpatient Referral Routine Breast Cancer, Right Ordered: 12/27/2013 documented as of this encounter Visit Diagnoses Diagnosis Breast cancer, right- Primary Malignant neoplasm of breast (female), unspecified site documented in this encounter Care Teams Property Insurance Inspector Relationship Specialty Start Date End Date Spike Sierra MD [address] [place] [address] PCP - General 01/12/10 01/23/17 documented as of this encounter
--- OUTSIDE RECORDS SUMMARY | 2024-02-08 17:12 | XMS_ITS | Encounter Summary ---
[facility] Address [facility] [place] [address] Care Team Providers Care Custom Feed Mill Operator Name Role Phone Spike Sierra MD Primary Care Provider [phone] Encounter Details Date Type Department Care Team (Latest Contact Info) Description 01/06/2017 - 01/06/2017 12:04 AM [facility] Hospital Encounter Radiology Library [place] [address] Spike Nicolas MD Discharge Disposition: Home Social [...] Only Mammo (01/06/2017 12:00 AM EST) Narrative RAD - 01/10/2017 4:30 PM EST This exam is for storage only and is auto-finalizing. Spike Nicolas MD G FILM LIBRARY ORD ERABLES [place], [place] documented in this encounter Visit Diagnoses Not on filedocumented in this encounter Care Teams Custom Feed Mill Operator Relationship Specialty Start Date End Date Spike Sierra MD [address] [place] [address] PCP - General 01/12/10 01/23/17 documented as of this encounter
--- OUTSIDE RECORDS SUMMARY | 2024-02-08 17:12 | XMS_ITS | Encounter Summary ---
Author Organization [facility] [place] [address] Care Team Providers Care Pedicurist Name Role Phone Spike Sierra MD Primary Care Provider Encounter Details Date Type Department Care Team (Latest Contact Info) Description 03/09/2010 9:00 AM EST Procedure visit Radiation Oncology at [address] [phone] Ema Fair MD [facility] [place] [address] Discharge Disposition: Home Social History Tobacco Use [...] on filedocumented in this encounter Care Teams Pedicurist Relationship Specialty Start Date End Date Spike Sierra MD [address] [place] [address] PCP - General 01/12/10 01/23/17 documented as of this encounter
--- OUTSIDE RECORDS SUMMARY | 2024-02-08 17:12 | XMS_ITS | Encounter Summary ---
Author Organization [facility] [place] [address] Care Team Providers Care Retail Chain Store Area Supervisor Name Role Phone Unavailable Primary Care Provider Unavailabl e Encounter Details Date Type Department Care Team (Latest Contact Info) Description 12/04/2009 - 12/04/2009 12:04 AM EDT Hospital Encounter Radiology Library at [facility] [place] [phone] Spike Nicolas MD Discharge Disposition: Home Social [...] Only Mammo (12/04/2009 12:00 AM EDT) Narrative RAD - 01/13/2017 9:15 AM EST This exam is for storage only and is auto-finalizing. Spike Nicolas MD IMG FILM LIBRARY ORD ERABLES [place] documented in this encounter Visit Diagnoses Not on filedocumented in this encounter
--- OUTSIDE RECORDS SUMMARY | 2024-02-08 17:12 | XMS_ITS | Patient Health Record ---
Author Organization [facility] Address [address] [place] [address] Care Team Providers Care Remediation Technician Name Role Phone Christine Fuentes Primary Care Provider Joao Argueta MD, Drea Unavailable [phone] Allergies Allergen (clinical drug ingredient) Drug/Non Drug [...] Notes Problem Herniation of rectum into vagina (037351840) Rectocele (N81.6) Active confirmed Problem Postmenopausal atrophic vaginitis (93055017) Postmenopausal atrophic vaginitis (N95.2) Active confirmed Plan Of Treatment No Information Insurance Providers Payer Name Payer Address Payer Phone Subscriber Number Group Number Insured Name Patient Relationship to Insured Coverage Start Date Coverage End Date [place] [address] [place] [phone] [id number] Cecilia Marx Self - patient is [...]
--- OUTSIDE RECORDS SUMMARY | 2024-02-08 17:12 | XMS_ITS | Encounter Summary ---
[place] [address] Care Team Providers Care Unscrambler Name Role Phone Spike Sierra MD Primary Care Provider Encounter Details Date Type Department Care Team (Late st Contact Info) Description 01/02/2014 Telephone [place] [phone] Yolette Waldrop APRN Social History Tobacco Use Types Packs/Day Years [...] 35-45. We will increase her vitamin D3 [id number] IU a day. documented in this encounter Plan of Treatment Not on file documented as of this encounter Visit Diagnoses Not on filedocumented in this encounter Care Teams Unscrambler Relationship Specialty Start Date End Date Spike Sierra MD [address] [place] [address] PCP - General 01/12/10 01/23/17 documented as of this encounter
--- OUTSIDE RECORDS SUMMARY | 2024-02-08 17:12 | XMS_ITS | Encounter Summary ---
Author Organization [facility] [place] [address] Care Team Providers Care Auto Body Repairer Fiberglass Name Role Phone Spike Sierra MD Primary Care Provider [phone] Encounter Details Date Type Department Care Team (Late st Contact Info) Description 04/06/2010 1:30 PM EST Follow-Up Radiation Oncology at [address] [phone] Ema Fair MD [facility] [place] [address] Social History Tobacco Use Types Packs/Day Years Used Date Smoking Tobacco: Never Assessed Sex and Gender Information Value Date Recorded Sex Assigned at Not on file Gender Identity Not on file Sexual Orientation Not on file documented as of this encounter Plan of Treatment Not on file documented as of this encounter Visit Diagnoses Not on filedocumented in this encounter Care Teams Auto Body Repairer Fiberglass Relationship Specialty Start Date End Date Spike Sierra MD [address] [place], [place] [address] PCP - General 01/12/10 01/23/17 documented as of this encounter
--- OUTSIDE RECORDS SUMMARY | 2024-02-08 17:12 | XMS_ITS | Encounter Summary ---
Author Organization [facility] [place] [address] Care Team Providers Care Physician Practice Consultant Name Role Phone Spike Sierra MD Primary Care Provider [phone] Encounter Details Date Type Department Care Team (Latest Contact Info) Description 12/24/2013 - 12/24/2013 11:59 PM EST Hospital Encounter Radiology Library at [facility] [place] [address] Spike Nicolas MD Screening breast examination Discharge [...] Only Mammo (12/24/2013 12:00 AM EST) Narrative [facility] [place] - 01/11/2017 4:45 PM EST This exam is for storage only and is auto-finalizing. Spike Nicolas MD [facility] [place]RARY ORD ERABLES Performing Organization Address City/State/[facility] Co de Phone Number [place], [place] documented in this encounter Visit Diagnoses Diagnosis Screening breast examination Other screening breast examination documented in this encounter Care Teams Physician Practice Consultant Relationship Specialty Start Date End Date Spike Sierra MD [address] [place] [address] PCP - General 01/12/10 01/23/17 documented as of this encounter
--- OUTSIDE RECORDS SUMMARY | 2024-02-08 17:12 | XMS_ITS | Encounter Summary ---
Author Organization [facility] [place] [address] Care Team Providers Care Electronics Design Engineer Name Role Phone Spike Sierra MD Primary Care Provider Encounter Details Date Type Department Care Team (Late st Contact Info) Description 04/14/2010 7:15 AM EST Follow-Up Radiation Oncology at [address] [phone] Ema Fair MD [facility] [place] [address] Social History Tobacco Use Types Packs/Day Years Used Date Smoking Tobacco: Never Assessed Sex and Gender Information Value Date Recorded Sex Assigned at Not on file Gender Identity Not on file Sexual Orientation Not on file documented as of this encounter Plan of Treatment Not on file documented as of this encounter Visit Diagnoses Not on filedocumented in this encounter Care Teams Electronics Design Engineer Relationship Specialty Start Date End Date Spike Sierra MD [address] [place], [place] [address] PCP - General 01/12/10 01/23/17 documented as of this encounter
--- OUTSIDE RECORDS SUMMARY | 2024-02-08 17:12 | XMS_ITS | Encounter Summary ---
Author Organization [facility] [address] Care Team Providers Care Gas Plumbing Inspector Name Role Phone Christine Fuentes Primary Care Provider [phone] Encounter Details Date Type Department Care Team (Late st Contact Info) Description 03/10/2017 Orders [place] [address] Marla Brice MD Breast lesion Social History Tobacco Use Types [...] no close margins. MD NIGEL Ryder MAMMO ORDERA BLES * Mammo Needle Localization Left (03/30/2017 9:11 AM EST) Anatomical Region Laterality Modality Breast Left Mammography Impressions 03/30/2017 9:41 AM EST Status post successful preoperative wire placement for cylinder clip associated with complex sclerosing lesion left breast. Preliminary report signed by: sAher Marrero at 03/30/2017 9:32 AM I have [...] the above interpretation. MD NIGEL Ryder MAMMO ORDERA BLES documented in this encounter Visit Diagnoses Diagnosis Breast lesion Unspecified breast disorder Breast lesion Unspecified breast disorder Breast lesion Unspecified breast disorder documented in this encounter Care Teams Gas Plumbing Inspector Relationship Specialty Start Date End Date Christine Fuentes [address] [place] [address] PCP - General Family Medicine 01/24/17 10/08/19 documented as of this encounter
--- OUTSIDE RECORDS SUMMARY | 2024-02-08 17:12 | XMS_ITS | Encounter Summary ---
Author Organization [facility] [place] [address] Care Team Providers Care Bluing Oven Tender Name Role Phone Spike Sierra MD Primary Care Provider Encounter Details Date Type Department Care Team (Late st Contact Info) Description 05/04/2010 8:00 AM EDT Office Visit Radiation Oncology at [address] [phone] Ema Fair MD [facility] [place] [address] Discharge Disposition: Home Social History Tobacco Use [...] on filedocumented in this encounter Care Teams Bluing Oven Tender Relationship Specialty Start Date End Date Spike Sierra MD [address] [place], [place] [address] PCP - General 01/12/10 01/23/17 documented as of this encounter
--- OUTSIDE RECORDS SUMMARY | 2024-02-08 17:12 | XMS_ITS | Encounter Summary ---
Author Organization [facility] [place] [address] Care Team Providers Care Wheelchair Rental Clerk Name Role Phone Spike Sierra MD Primary Care Provider [phone] Encounter Details Date Type Department Care Team (Latest Contact Info) Description 11/28/2011 - 11/28/2011 11:59 PM EDT Hospital Encounter Radiology Library at [facility] [place] [address] Spike Nicolas MD Screening breast examination Discharge [...] Only Mammo (11/28/2011 12:00 AM EDT) Narrative RAD - 01/11/2017 4:30 PM EST This exam is for storage only and is auto-finalizing. Spike Nicolas MD [facility] [place] FILM LIBRARY ORD ERABLES [place], [place] documented in this encounter Visit Diagnoses Diagnosis Screening breast examination Other screening breast examination documented in this encounter Care Teams Wheelchair Rental Clerk Relationship Specialty Start Date End Date Spike Sierra MD [address] [place] [address] PCP - General 01/12/10 01/23/17 documented as of this encounter
== END 2024-02-08 17:03 | disposition home or self-care (01) ==
LOC: LBN 17:02
PROVIDERS: PCP Family Medicine; Visit Provider Physician Assistant Medical
DX: R10.30 Lower abdominal pain, unspecified (principal)
CPT/HCPCS: 80053; 85025; 86140

== ENCOUNTER 2024-03-07 11:16 | Outpatient (REF) | payer MEDICARE, SELFPAY ==
[2024-02-29 22:36] LABS: Anion Gap 10.4 mmol/L (3-11); BUN 22 mg/dL (7-18); CO2 25.6 mmol/L (21.0-32.0); CREATININE 1.1 mg/dL (0.55-1.02); Calcium 9.9 mg/dL (8.5-10.1); Chloride 105 mmol/L (98-107); Estimated GFR 55.07 (mL/min/1.73m2); Glucose 89 mg/dL (74-106); Potassium 4.6 mmol/L (3.5-5.1); Sodium 141 mmol/L (136-145); TSH (W/Ref FT4) 0.46 uIU/mL (0.36-3.74)
[2024-02-29 22:37] LABS: C-Reactive Protein < 0.50 mg/dL (<or=0.5)
--- OUTSIDE RECORDS SUMMARY | 2024-03-07 11:18 | XMS_ITS | Encounter Summary ---
[place] [address] Care Team Providers Care Undercover Agent Name Role Phone Unknown Primary Care Provider Unavailabl e Encounter Details Date Type Department Care Team (Late st Contact Info) Description 04/07/2021 [place] [phone] January Davis Social History Tobacco Use Types [...] on filedocumented in this encounter Care Teams Undercover Agent Relationship Specialty Start Date End Date Unknown None PCP - General 10/09/19 documented as of this encounter
--- OUTSIDE RECORDS SUMMARY | 2024-03-07 11:18 | XMS_ITS | Encounter Summary ---
Author Organization [facility] Address [address] [place] [address] Care Team Providers Care Home Worker Name Role Phone Micki Iniguez MD Primary Care Provide r Unavailable Encounter Details Date Type Department Care Team (Late st Contact Info) Description 12/05/2011 Results Only [facility] - [facility] [place] [place] [address] [place], [place] [id number] Kayli Engel FNP [address] [place], [place] [address] Social History Tobacco Use Types Packs/Day Years [...] ? STEVE MARX ? Accession #: ? [id number] : ? 1955 (Age: 56) ??F ?Collect Date: ? 12/05/2011 Location: ? [facility] ? Receive Date: ? 12/07/2011 Provider: ?KAYLI ENGEL PLUG DRILL OPERATOR Copy to: ? Specimen/Source: ?Pap Test, [...] [facility] 12/05/2011 12/07/2011 us Kayli Engel PLUG DRILL OPERATOR PATHOLOGY ORDERABLES Final Resul t [facility] [address] [place] [address] documented in this encounter Visit Diagnoses Not on filedocumented in this encounter Care Teams Home Worker Relationship Specialty Start Date End Date Micki Iniguez MD PCP - General 02/02/1010/22 documented as of this encounter
--- OUTSIDE RECORDS SUMMARY | 2024-03-07 11:18 | XMS_ITS | Encounter Summary ---
Author Organization [facility] Address [address] [place] [address] Care Team Providers Care Outsole Skiver Name Role Phone Christine Fuentes PA-C Primary Care Provider + Encounter Details Date Type Department Care Team (Late st Contact Info) Description 04/10/2017 Results Only [facility] [phone] Lius Ivan PA-C [address] [place] [address] Social History Tobacco Use Types [...] ? STEVE MARX ? Accession #: ? [id number] ? : ? 1955 (Age: 62) ??F [...] (ASCP) 04/11/2017 5:10 PM End of Report [facility] 04/10/2017 16:0 2 EST 04/11/2017 16:02 EST us Luis COTO-Jaden PATHOLOGY ORDERABLES Sapna l Result [facility] [address] [place] [address] documented in this encounter Visit Diagnoses Not on filedocumented in this encounter Care Teams Outsole Skiver Relationship Specialty Start Date End Date Christine Fuentes PA-C [address] [place] [phone] PCP - General 10/23/16 documented as of this encounter
--- OUTSIDE RECORDS SUMMARY | 2024-03-07 11:18 | XMS_ITS | Encounter Summary ---
Author [place] [address] Care Team Providers Care Registrar Assistant Name Role Phone Christine Fuentes Primary Care Provider [phone] Encounter Details Date Type Department Care Team (Late st Contact Info) Description 02/26/2019 2:30 [place] [phone] January Davis Social History Tobacco Use Types [...] a Camisole. We fit her to the [id number]. She likes it. She is ready for new bras and forms but will come back in March to do that. $50.00 Paid by to [facility] documented in this encounter Plan of Treatment Not on file documented as of this encounter Visit Diagnoses Not on filedocumented in this encounter Care Teams Registrar Assistant Relationship Specialty Start Date End Date Christine Fuentes PA [address] [place] [address] PCP - General Family Medicine 01/24/17 10/08/19 documented as of this encounter
--- OUTSIDE RECORDS SUMMARY | 2024-03-07 11:18 | XMS_ITS | Encounter Summary ---
Author Organization [facility] Address [address] [place] [address] Care Team Providers Care Demurrage Clerk Name Role Phone Unavailable Primary Care Provider Unavailabl e Encounter Details Date Type Department Care Team (Late st Contact Info) Description 10/10/2006 Results Only [facility] - [facility] [address] [place] [address] Kayli Engel FNP [address] [place], [place] [phone] Social History Tobacco Use Types Packs/Day Years [...] ? STEVE MARX ? Accession #: ? [id number] : ? 1955 (Age: 51) ??F ?Collect Date: ? 10/10/2006 Location: ? [facility] ? Receive Date: ? 10/12/2006 Provider: ?KAYLI ENGEL FLUME TENDER Copy to: ? Specimen/Source: ?ThinPrep Pap Test, Cervix/Endocervix, processed on BrightWhistle ThinPrep Imaging System, with manual evaluation Last [...] ORDERABLES Final Resul t [facility] [address] [place] [address] documented in this encounter Visit Diagnoses Not on filedocumented in this encounter
--- OUTSIDE RECORDS SUMMARY | 2024-03-07 11:18 | XMS_ITS | Encounter Summary ---
[place] [address] Care Team Providers Care Mortgage Counselor Name Role Phone Unknown Primary Care Provider Unavailabl e Reason for Referral * Consultation (Routine) - Closed Specialty Diagnoses / Procedures Referred By Contac t Referred To Contact Neurology Diagnoses Tremor Treva De Jesus MD [address] [place] [address] [facility] [address] [place] [phone] Referral ID Status Reason Start Date Expiration Date V isits Requested Visits Authorized [id number] Closed Consult, Test & Treat PCP Updated and/or Approved 03/16/2023 03/15/2024 6 6 Encounter Details Date Type Department Care Team (Late st Contact Info) Description 03/16/2023 Transcribe Orders [facility] Incoming Referrals [phone] Treva De Jesus MD [address] [place] [address] Tremor Social History Tobacco Use [...] movements documented in this encounter Care Teams Mortgage Counselor Relationship Specialty Start Date End Date Unknown None PCP - General 10/09/19 documented as of this encounter
--- OUTSIDE RECORDS SUMMARY | 2024-03-07 11:18 | XMS_ITS | Encounter Summary ---
Author Organization [facility] Address [address] [place] [address] Care Team Providers Care Fuel Cell Designer Name Role Phone Christine Fuentes PA-C Primary Care Provider + Encounter Details Date Type Department Care Team (Late st Contact Info) Description 09/01/[address] [facility] Pathology & Laboratory Medicine - [address] [address] Treva De Jesus MD [address] [place] [phone] Encounter for other general examination Social History [...] explore management options, if applicable. 09/02/2022 8:16 [facility] Final Diagnosis A. SKIN OF UMBILICUS, LEFT SIDE, SHAVE BIOPSY: - Seborrheic keratosis. B. SKIN OF THIGH, LEFT, SHAVE BIOPSY: - Squamous cell carcinoma, well-differentiat ed, superficially invasive, encompassed within the examined sections. 09/02/2022 8:16 [facility] Attestation By the signature below, the attending physician certifies that they have 1) personally conducted a gross and/or microscopic examination of the described specimen(s), and/or personally interpreted the results of laboratory testing of the described specimen(s), and 2) personally rendered or confirmed the above diagnosis. 09/02/2022 8:16 [facility] at 0816 Clinical History Nevus L side umbilicus, pedunculated; Neoplasm of uncertain behavior L thigh 09/02/2022 8:16 [facility] Gross Description A. Received in [...] B1. NNAMDI JONES(ASCP) 09/01/2022 11:51 09/02/2022 8:16 [facility] Performing Lab [facility] 09/02/2022 8:16 [facility] Scanned Images 09/02/2022 8:16 EDT [facility] Tissue TISSUE SPECIMEN FROM SKIN / Unknown 08/31/2022 8:30 EDT 09/01/2022 7:50 EDT Tissue specimen (specimen) SPECIMEN FROM SKIN / Unknown 08/31/2022 8:30 EDT 09/01/2022 7:50 EDT us Treva De Jesus MD PATHOLOGY ORDERABLES Final Res ult [facility] [address] [place] [address] documented in this encounter Visit Diagnoses Diagnosis Encounter for other general examination documented in this encounter Care Teams Fuel Cell Designer Relationship Specialty Start Date End Date Christine Fuentes PA-C [address] [place] [phone] PCP - General 10/23/16 documented as of this encounter
--- OUTSIDE RECORDS SUMMARY | 2024-03-07 11:18 | XMS_ITS | Encounter Summary ---
Author Organization [facility] Address [address] [place] [address] Care Team Providers Care Garden Equipment Mechanic Name Role Phone Christine Fuentes PA-C Primary Care Provider + Encounter Details Date Type Department Care Team (Late st Contact Info) Description 01/22/2021 Lab Requisition [facility] Pathology & Laboratory Medicine - [address] [address] Katie Leyva MD [address] [place] [address] [address] [place], [place] [address] Encounter for other general examination Social History [...] Risk types, PCR Negative Negative 02/02/2021 11:04 [facility] Comment:No E6 or E7 mRNA is detected from HPV types 16,18,31,33,35,39,45,51,52,56,58,59,66, and 68 by merchandise team manager mediated amplification. Papanicolaou smear specimen (specimen) CERVIX UTERI STRUCTURE / Unknown 01/21/2021 9:45 EST 01/28/2021 12:05 EST us Katie Leyva MD MICROBIOLOGY - GENERAL ORDERAB LES Final Result [facility] [address] [place] [address] * PAP TEST (01/21/2021 9:45 EST) Specimens A. Cervix and/or Endocervix , ThinPrep Imaging System with Manual Evaluation 02/02/2021 11:04 [facility] Specimen Adequacy Satisfactory for Evaluation - transformation zone component present 02/02/2021 11:04 [facility] General Categorization Negative for intraepithelial lesion or malignancy 02/02/2021 11:04 [facility] Attestation . 02/02/2021 11:04 [facility] at 1104 Clinical History See below 02/03/20 11:04 [facility] HPV The result for the Human Papillomavirus (HPV) Detection-High Risk Types is Negative. No E6 or E7 mRNA is detected from HPV types 16,18,31,33,35,39 ,45,51,52,56,58,5 9,66, and 68 by merchandise team manager mediated amplification.Harriett ting was performed on specimen [id number] and was resulted on 02/02/2021 0921 EST by IVORY, LAB INSTRUMENT RESULTS IN 02/02/2021 11:04 [facility] Performing Lab [facility] 02/02/2021 11:[address] [facility] Scanned Images 02/02/2021 11:[address] [facility] Papanicolaou smear specimen (specimen) CERVIX UTERI STRUCTURE / Unknown 01/21/2021 9:45 EST 01/22/2021 13:54 EST us Katie Leyva MD PATHOLOGY ORDERABLES Final Res ult [facility] [address] [place] [address] documented in this encounter Visit Diagnoses Diagnosis Encounter for other general examination documented in this encounter Care Teams Garden Equipment Mechanic Relationship Specialty Start Date End Date Christine Fuentes PA-C [address] [place] [phone] PCP - General 10/23/16 documented as of this encounter
--- OUTSIDE RECORDS SUMMARY | 2024-03-07 11:18 | XMS_ITS | Encounter Summary ---
Author Organization [facility] Address [address] [place] [address] Care Team Providers Care Machinist Helper Marine Name Role Phone Micki Iniguez MD Primary Care Provide r Unavailable Encounter Details Date Type Department Care Team (Late st Contact Info) Description 09/08/2005 Results Only [facility] - Maple conversion [address] [place] [address] Ernie Fuentes PA-C [address] [place] [address] Social History Tobacco Use Types Packs/Day Years [...] ? STEVE MARX ? Accession #: ? [id number] : ? 1955 (Age: 50) ??F ?Collect Date: ? 09/08/2005 Location: ? [facility] ? Receive Date: ? 09/13/2005 Provider: ?ERNIE COTO Copy to: ? Specimen/Source: ?ThinPrep Pap Test, Cervix/Endocervix, processed on [employer] ThinPrep Imaging System, with manual evaluation Last [...] intraepithelial lesion (LSIL). EDUCATIONAL NOTES/RECOMMENDATI ONS ? REPLACED BY [facility] recommends following the 2001 Consensus Guidelines for the Management of Women with Cervical Cytological Abnormalities (UGO,2002;287:212 0-9). Management algorithms have been distributed by REPLACED BY [facility] and are available online at www.ASCCP.org. ? Document reviewed and electronically signed by: ? PHILOMENA PEARL MD ? Report Date: ??09/15/2005 14:56 End of Report [facility] 09/08/2005 09/13/2005 us Ernie Fuentes PA-C PATHOLOGY ORDERABLES Fin al Result [facility] [address] [place] [address] documented in this encounter Visit Diagnoses Not on filedocumented in this encounter Care Teams Machinist Helper Marine Relationship Specialty Start Date End Date Micki Iniguez MD PCP - General 02/02/1010/22 documented as of this encounter
--- OUTSIDE RECORDS SUMMARY | 2024-03-07 11:18 | XMS_ITS | Encounter Summary ---
[place] [address] Care Team Providers Care Dynamics Ax Consultant Name Role Phone Christine Fuentes Primary Care Provider +1- [phone] Encounter Details Date Type Department Care Team (Late st Contact Info) Description 04/19/2019 9:30 [place] [address] January Davis Social History Tobacco Use Types [...] - 04/19/2019 9:30 AM EST Cecilia Marx [id number] 1955 Referring Physician: Shazia Boyd APN Previous Fitting: [facility] 04/10/18 Insurance: of [place] Prescription: Yes Diagnoses:right breast cancer Date of [...] to her type of surgery. Delivered today:04.19.2019 [facility] Manufacture Model L/R Quantity L8030 ABC 23360-85 L 1 L8030 ABC 46944-74 R 1 Bra - Our goal is to provide adequate measurement to reach the best comfort possible for different life styles, and we determine that with our client that the bra described below are meeting her needs according to her type of surgery and life style. Delivered today: [facility] Manufacture Model L/R Quantity L8000 ABC 960-XL-BH 1 L8000 ABC 960-XL-BK 1 L8000 ABC 525-42B-WH 1 L8000 ABC 525-42B-BK 1 L8000 ABC 525-42B-BE 1 To Order:N/A Follow up: PRN Payment Info: paid $879.19 w/ CC to [employer], This will be submitted toward deductible. Retail: $100.00 for the sonia's -paid with cc to [employer]. (This was paid all in one transaction of $979.19) Delivery date: 04.19.2019 Cecilia agrees to this plan. documented in this encounter Plan of Treatment Not on file documented as of this encounter Visit Diagnoses Not on filedocumented in this encounter Care Teams Dynamics Ax Consultant Relationship Specialty Start Date End Date Christine Fuentes PA [address] [place] [address] PCP - General Family Medicine 01/24/17 10/08/19 documented as of this encounter
--- OUTSIDE RECORDS SUMMARY | 2024-03-07 11:18 | XMS_ITS | Clinical Summary ---
Author Organization [facility]1983 Address [facility] [place] [address] Care Team Providers Care Mixing Tank Operator Name Role Phone Unknown Primary Care [...] 1975 Breast Cancer Share Decision Needed 1996 Pneumoccocal Vaccine: 50+ (1 of 1 - PCV) 2006 Zoster vaccine (1 of 2) 2006 Advance Directive 2011 Breast Cancer screening 01/23/2020 01/22/2018 Bone Density Scan 2021 Covid-19 Vaccine (4 - 2023-2 5 season) 2023 12/28/2022, 11/29/2021, 12/28/2020 Influenza (Flu) vaccine (1 o f 1 - Influenza standard series) 10/22/2023 Diabetes Screening (HgbA1C o r Glucose) Discontinued 08/28/2018, 08/28/2018 Lipid Screening Discontinued 08/28/2018 Medical Devices Implanted Type Area Chairman Emeritus Device Identifier Shelf Expiration Date Model / Serial / Lot Breast Clip-02/02/20 17 Implanted: by Babs Duvall MD (Quantity not on file) Breast Clip Left: Breast HOLOGIC - PATI SECURMARK FOR EVIVA TITANIUM BIOPSY SITE MARKER / / [id number] Description:cylinder Breast Clip-01/31/20 18 Implanted:12/2017 by Babs Duvall MD (Quantity not on file) Breast Clip Breast Cylinder 09/14/2018 SMARK-EVIVA- 13 / [id number] Procedures Procedure Name Priority Date/Time Associated [...] A1c 5.4 4.3 - 5.6 % [facility] Comment: Reference Range: 4.3 - [...] Mellitus, Diabetes Care 2013; 36: Suppl. 1, L07-46 Estimated Average Glucose 109 mg/dL [facility] Comment: eAG equivalents for HbA1c [...] into estimated average glucose values. ??Diabetes Care 2008:31(8):9192-6288. Blood specimen (specimen) 08/28/2018 10:30 AM EDT 08/28/2018 10:39 AM EDT Narrative Resulting Agency Comment Spec In Lab Nella Acevedo MD CHEMISTRY ORDERABLES [facility] [place] [address] * Lipid Panel (08/28/2018 10:30 AM EDT) Cholesterol, Total 220 mg/dL [facility] Comment: Lower Risk: <200 mg/dL Average Risk: 200-239 mg/dL Higher Risk: >zf=847 mg/dL Triglyceride 172 mg/dL [facility] Comment: Average Risk/Lower Risk: <150 mg/dL Borderline High Risk: 150-199 mg/dL High Risk: 200-499 mg/dL Very High Risk: >gt=573 mg/dL HDL Cholesterol 62 mg/dL [facility] Comment: Males: ?? Higher Risk: <40 mg/dL Females: ?? HIgher Risk: <50 mg/dL LDL Cholesterol 124 mg/dL [facility] Comment: Lowest Risk: <100 mg/dL Lower Risk: 100-129 mg/dL Borderline High Risk: 130-159 mg/dL High Risk: 160-189 mg/dL Very High Risk: >zl=600 mg/dL Cholesterol/HDL Ratio 3.5 ratio [facility] Lipid Interpretation See Note [facility] Comment: Lipid management should be guided by a patient? s ASCVD risk, goals and preferences. ACC/AHA Guidelines recommend high intensity statin if clinical ASCVD or LDL greater than or equal to 190 mg/dL. http://Netccmurl.com/QCJ-EGV-Fauxvoxgb Adults aged 40-75 with LDL 70-189 mg/dL should have their 10 year ASCVD risk estimated with the ACC/AHA ASCVD risk welding estimator http://tools.acc.org/BFNHE-Iirv-Vddmafvso/ Statin should be discussed if risk greater [...] Lab Nella Acevedo MD CHEMISTRY ORDERABLES [facility] [place] [address] * Mammo Screening Cad and Immanuel Bilateral [...] capacity to make decision: Yes Care Teams Mixing Tank Operator Relationship Specialty Start Date End Date Unknown None PCP - General 10/09/19
--- OUTSIDE RECORDS SUMMARY | 2024-03-07 11:18 | XMS_ITS | Referral Summary ---
Author Organization [facility] Address [address] [place] [address] Care Team Providers Care Special Education Para Professional Name Role Phone Christine Fuentes PA-C [...] file [place] [id number] Care Teams Special Education Para Professional Relationship Specialty Start Date End Date Christine Fuentes PA-C [address] [place] [phone] PCP - General 10/23/16
--- OUTSIDE RECORDS SUMMARY | 2024-03-07 11:18 | XMS_ITS | Encounter Summary ---
Author Organization [facility] Address [address] [place] [address] Care Team Providers Care Orchid Superintendent Name Role Phone Micki Iniguez MD Primary Care Provide r Unavailable Encounter Details Date Type Department Care Team (Latest Contact Info) Description 08/08/2016 8:25 EDT - 08/08/2016 23:59 EDT Hospital Encounter [address] [address] Micki Iniguez MD Discharge Disposition: Home or Self Care [...] Departure Means Destination Home or Self Senior Care documented in this encounter Plan of Treatment Not on file documented as of this encounter Visit Diagnoses Not on filedocumented in this encounter Care Teams Orchid Superintendent Relationship Specialty Start Date End Date Micki Iniguez MD PCP - General 02/02/1010/22 documented as of this encounter
--- OUTSIDE RECORDS SUMMARY | 2024-03-07 11:18 | XMS_ITS | Encounter Summary ---
Author Organization [facility] Address [address] [place] [address] Care Team Providers Care Spreader Box Operator Name Role Phone Ernie Marcos PA-C Primary Care Provider + Encounter Details Date Type Department Care Team ([facility] st Contact Info) Description 01/06/2017 Results Only [facility] [phone] Ernie Marcos PA-C [address] [place] [address] Social History Tobacco Use Types Packs/Day Years [...] ? STEVE MARX ? Accession #: ? [id number] ? : ? 1955 (Age: 61) ??F [...] types 16,18,31,33,35, 39,45,51,52,56,58, 59,66, and 68 by enrollment management manager mediated amplification. Comments Document reviewed and electronically signed by: ? System Interface ? Report date: 01/23/2017 By the signature above, the attending physician certifies that he/she has personally conducted a gross and/or microscopic examination of the described specimens and rendered or confirmed the above diagnosis. End of Report [facility] 01/06/2017 01/10/2017 us Ernie Marcos PA-C PATHOLOGY ORDERABLES Fin al Result [facility] [address] [place] [address] documented in this encounter Visit Diagnoses Not on filedocumented in this encounter Care Teams Spreader Box Operator Relationship Specialty Start Date End Date Ernie Marcos PA-C [address] [place] [phone] PCP - General 10/23/16 documented as of this encounter
--- OUTSIDE RECORDS SUMMARY | 2024-03-07 11:18 | XMS_ITS | Encounter Summary ---
[place] [address] Care Team Providers Care Eyelet Cutter Name Role Phone Christine Funetes Primary Care Provider +1- [phone] Encounter Details Date Type Department Care Team (Late st Contact Info) Description 04/19/2019 Orders [place] [address] Christina Fay, RN Malignant neoplasm of right [...] breast documented in this encounter Care Teams Eyelet Cutter Relationship Specialty Start Date End Date Christine Fuentes PA [address] [place] [address] PCP - General Family Medicine 01/24/17 10/08/19 documented as of this encounter
--- OUTSIDE RECORDS SUMMARY | 2024-03-07 11:18 | XMS_ITS | Encounter Summary ---
Author Organization [facility] Address [address] [place] [address] Care Team Providers Care Academic Assistant Name Role Phone Unavailable Primary Care Provider Unavailabl e Encounter Details Date Type Department Care Team (Late st Contact Info) Description 10/29/2007 Before PRISM Converted Visit (Maple) [facility] - Maple conversion [address] [place] [address] Kayli Engel FNP [address] [place], [place] [phone] Social History Tobacco Use Types Packs/Day Years [...] ? STEVE MARX ? Accession #: ? [id number] ? : ? 1955 (Age: 52) ??F [...] [facility] 10/29/2007 10/30/2007 us Kayli Engel CYLINDER SANDER OPERATOR PATHOLOGY ORDERABLES Final Resul t [facility] [address] [place] [address] documented in this encounter Visit Diagnoses Not on filedocumented in this encounter
--- OUTSIDE RECORDS SUMMARY | 2024-03-07 11:18 | XMS_ITS | Encounter Summary ---
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 Hx of kidney stones Encounter Details Date Type Department Care Team (Late st Contact Info) Description 10/23/2016 16:20 EDT - 10/23/2016 19:42 EDT Emergency [facility] Emergency Department - [address] [address] Luis Orantes MD [address] [place] [address], Level [address] [place] [address] Emergency, MD Tolu Flank pain [...] Personal history of urinary calculi-Z87.442[ICD-10-CM] Z79.899 Other facility operations manager (current) drug therapy-Z79.899[ICD-10-CM] Z79.82 senior living (current) use of aspirin-Z79.82[ICD-10-CM] Z88.3 Allergy status [...] sent through Care Everywhere. * ABDOMINAL PAIN (NICARAGUAN) documented in this encounter Medications at Time [...] ??? 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 Hx of kidney stones HPI The patient is a 61 y.o. female who presents today with Flank Pain (sudden onset 20 min TOPPIECE CUTTER of severe L flank pain. Skin pale, [...] onset, patient was in heated argument with [id number]-cti. She endorses several days of subjective inability [...] Bilirubin Neg Final Ketones Neg Final Specific [place] 1.025 Final pH 5.5 Final Protein Neg Final Urobilinogen 0.2 Final Nitrite Neg Final Tech ID [id number] Final Relevant Data Procedures ED COURSE A medical screening exam was performed. The patient is a 61 y.o. female, who presents with sudden onset of left flank pain 30 minutes TOPPIECE CUTTER. She has history of passing a kidney [...] Flank pain DISPOSITION: Discharged PCP: Christine Fuentes [facility] Number of Diagnoses or Management [...] 11:35 EDT Narrative 10/25/2016 11:35 EDT [facility] - Ultrasound Exam Date: 10/23/2016 Exam Type: POCT US ARTERIAL Injection Wax Molder: Luis Orantes MD Attending: Luis Orantes MD [...] Note Luis Orantes MD - 10/25/2016 [facility] - Ultrasound Exam Date: 10/23/2016 Exam Type: POCT US ARTERIAL Injection Wax Molder: Luis Orantes MD Attending: Luis Orantes MD [...] (10/23/2016 18:10 EDT) Color YELLOW 10/23/2016 18:19 [facility] Clarity, UA Clear 10/23/2016 18:19 [facility] Glucose Neg Neg 10/23/2016 18:19 [facility] Bilirubin Neg Neg 10/23/2016 18:19 [facility] Ketones Neg Neg 10/23/2016 18:19 [facility] Specific [place] 1.025 1.001 - 1.035 10/23/2016 18:19 [facility] Blood 2+(A) Neg 10/23/2016 18:19 [facility] pH 5.5 4.6 - 8.0 10/23/2016 18:19 [facility] Protein Neg Neg 10/23/2016 18:19 [facility] Urobilinogen 0.2 0.2 - 1.0 E.U./dl 10/23/2016 18:19 [facility] Nitrite Neg Neg 10/23/2016 18:19 [facility] Leuk Esterase Trace(A) Neg 10/23/2016 18:19 [facility] fudger ID [id number] 10/23/2016 18:19 [facility] Comment:Test performed at Em [facility]ency Department Urine specimen (specimen) URINE / Unknown 10/23/2016 18:10 EDT 10/23/2016 18:19 EDT us Luis Orantes MD POINT OF CARE TEST ORDERA BLES Final Result [facility] [address] [place] [address] * POCT US RENAL (10/23/2016 17:43 EDT) Anatomical Region Laterality Modality Other 10/23/2016 17:4 3 EDT 10/25/2016 11:34 EDT Narrative 10/25/2016 11:34 EDT [facility] - Ultrasound Exam Date: 10/23/2016 Exam Type: POCT US RENAL Injection Wax Molder: Luis Orantes MD Attending: Luis Orantes MD [...] Note Luis Orantes MD - 10/25/2016 [facility] - Ultrasound Exam Date: 10/23/2016 Exam Type: POCT US RENAL Injection Wax Molder: Luis Orantes MD Attending: Luis Orantes MD [...] 10/23/2016 documented in this encounter Care Teams Fire Officer Relationship Specialty Start Date End Date Christine Fuentes PA-C [address] [place] [phone] PCP - General 10/23/16 documented as of this encounter
--- OUTSIDE RECORDS SUMMARY | 2024-03-07 11:18 | XMS_ITS | Encounter Summary ---
Author Organization [facility] Address [address] [place] [address] Care Team Providers Care Windows Desktop Engineer Name Role Phone Unavailable Primary Care Provider Unavailabl e Encounter Details Date Type Department Care Team (Late st Contact Info) Description 01/28/2010 Results Only [facility] Services - [facility] ([facility]) [address] [place], [place] [address] Bautista Forrester, DO [address] [facility] [address] [place], [place] [id number] Social History Tobacco Use Types Packs/Day Years [...] ? STEVE MARX ? Accession #: ? [id number] ? : ? 1955 (Age: 54) ??F ?Collect Date: ? 01/28/2010 ? Location: ? [facility] ? Receive Date: ? 01/29/2010 ? Provider: CHRISTOPHER KI DO ? Copy to: KAYLI LUNDBERG BESSEMER CONVERTER OPERATOR ? Final Pathologic Diagnosis: ? A. ?Breast, [...] adipose ? tissue, which is slightly fragmented. ??Independent Living Specialist sections are submitted as follows: ? [...] A21 ? Level 13, lateral margin, sales representative door to door perpendicular sections ? Received in formalin labelled [...] Tissue submitted: Paraffin embedded tissue block labelled [id number] (A10) ?? from [facility] ? An immunohistochemical assay for estrogen receptors (ER1D5, Dako) and ? progesterone receptors ([id number], Dako) has been performed on this specimen. [...] ??performance ? characteristics have been determined by [facility]. ??This ? laboratory is certified under [...] 01/28/2010 01/29/2010 17: 05 EST us Franklynbobo Ki DO PATHOLOGY ORDERABLES Fi nal Result [facility] [address] [place] [address] documented in this encounter Visit Diagnoses Not on filedocumented in this encounter
--- OUTSIDE RECORDS SUMMARY | 2024-03-07 11:18 | XMS_ITS | Encounter Summary ---
Author Organization [facility] [place] [address] Care Team Providers Care Legal Department Manager Name Role Phone Unknown Primary Care Provider Unavailabl e Encounter Details Date Type Department Care Team (Late st Contact Info) Description 11/26/2019 11:10 AM EDT Office [place] [address] Shazia Boyd, LIBRARY TECHNICIAN [facility] [place] [address] History of breast cancer Social History Tobacco [...] grade 0 of 4 LNs positive cells,, ER+/OK+ pTNM: ---(m)Tis N0 (AJCC) Left breast, mastectomy: [...] breast documented in this encounter Care Teams Legal Department Manager Relationship Specialty Start Date End Date Unknown None PCP - General 10/09/19 documented as of this encounter
--- OUTSIDE RECORDS SUMMARY | 2024-03-07 11:18 | XMS_ITS | Encounter Summary ---
Author Organization [facility] Address [address] [place] [address] Care Team Providers Care Automation Architect Name Role Phone Unavailable Primary Care Provider Unavailabl e Encounter Details Date Type Department Care Team (Late st Contact Info) Description 09/29/2005 Results Only [facility] - Maple conversion [address] [place] [address] Yasemin Selby MD [address] [place] [address] [place] [address] Social History Tobacco Use Types Packs/Day Years [...] ? STEVE MARX ? Accession #: ? [id number] ? : ? 1955 (Age: 50) ??F [...] (B) are also examined. Previous Pap smear ([id number]) was reviewed by Dr. Sally Pablo, and the presence of low grade squamous intraepithelial lesion was confirmed. However, the atypical cells seen on the Pap smear are not seen in the current cervical biopsy or endocervical curettage specimen. This case was reviewed by Dr. Salyl Pablo, and was also presented at the intradepartmental consultation conference. ??(Dr. Zambrano)/[facility] Document reviewed and electronically signed by: [...] Final Resu lt [facility] [address] [place] [address] documented in this encounter Visit Diagnoses Not on filedocumented in this encounter
--- OUTSIDE RECORDS SUMMARY | 2024-03-07 11:18 | XMS_ITS | Encounter Summary ---
Author Organization [facility] Address [address] [place] [address] Care Team Providers Care Metal Drawer Name Role Phone Christine Fuentes PA-C Primary Care Provider + Encounter Details Date Type Department Care Team (Late st Contact Info) Description 05/10/2023 Lab Requisition [facility] Pathology & Laboratory Medicine - [address] [address] Outr Resulting Lab, Provider Social History Tobacco [...] 97 - 169 ng/dL 05/10/2023 22:23 EDT [facility] Blood VENOUS BLOOD / Unknown 05/10/2023 9:05 EDT 05/10/2023 21:33 EDT us Provider Outr Resulting Lab CHEMISTRY & BLOOD GA S ORDERABLES Final Result [facility] [address] [place], [place] [id number] documented in this encounter Visit Diagnoses Not on filedocumented in this encounter Care Teams Metal Drawer Relationship Specialty Start Date End Date Christine Fuentes PA-C [address] [place] [phone] PCP - General 10/23/16 documented as of this encounter
--- OUTSIDE RECORDS SUMMARY | 2024-03-07 11:18 | XMS_ITS | Encounter Summary ---
Author Organization [facility] Address [address] [place] [address] Care Team Providers Care Cross Cut Saw Operator Name Role Phone Micki Iniguez MD Primary Care Provide r Unavailable Encounter Details Date Type Department Care Team (Late st Contact Info) Description 11/29/2010 Results Only [facility] - [facility] ([facility]) [address] [place], [place] [id number] Kayli Engel FNP [address] [place], [place] [address] Social History Tobacco Use Types Packs/Day Years [...] ? STEVE MARX ? Accession #: ? [id number] ? : ? 1955 (Age: 55) ??F ?Collect Date: ? 11/29/2010 ? Location: ? [facility] ? Receive Date: ? 11/30/2010 ? Provider: KAYLI ENGEL TAPER MACHINE Copy to: ? Final Report SPECIMEN ADEQUACY ? Satisfactory for Evaluation - transformation zone component present GENERAL CATEGORIZATION ? Epithelial Cell Abnormality INTERPRETATION ? Squamous Cell Abnormality - Atypical squamous cells, undetermined significance (ASC-US). EDUCATIONAL NOTES/RECOMMENDATI ONS ? [facility] recommends following the 2006 Consensus Guidelines for [...] the above diagnosis. End of Report [facility] 11/29/2010 11/30/2010 Kayli Engel TAPER MACHINE PATHOLOGY ORDERABLES Final Resul t [facility] [address] [place] [address] documented in this encounter Visit Diagnoses Not on filedocumented in this encounter Care Teams Cross Cut Saw Operator Relationship Specialty Start Date End Date Micki Iniguez MD PCP - General 02/02/1010/22 documented as of this encounter
--- OUTSIDE RECORDS SUMMARY | 2024-03-07 11:18 | XMS_ITS | Encounter Summary ---
Author Organization [facility] Address [address] [place] [address] Care Team Providers Care Insurance Verify Rep Name Role Phone Micki Iniguez MD Primary Care Provide r Unavailable Encounter Details Date Type Department Care Team (Late st Contact Info) Description 08/08/2016 Results Only [facility] [phone] Sirena Tinajero, [address] [place], [place] [id number] Social History Tobacco Use Types Packs/Day Years [...] ? STEVE MARX ? Accession #: ? [id number] ? : ? 1955 (Age: 61) ??F [...] moderate amount of cytoplasm. ??The melanocytes show jewelry designer maturation. ? B-The stratum corneum is thickened by orthohyperkeratosis with foci of parakeratosis. ??The epidermis is focally thickened with elongate and bulbous rete ridges. ??The basal keratinocytes show a variable degree of atypia including nuclear enlargement, dispolarity, and hyperchromasia. ??The dermis is marked by solar elastosis, vascular ectasia and a lymphohistiocytic infiltrate. ??(Dr. Horner)/antwon Document reviewed and electronically signed by: DINA [...] (ASCP) 08/09/2016 2:33 PM End of Report [facility] 08/08/2016 10:5 8 EDT 08/09/2016 10:58 EDT us Sirena Tinajero DO PATHOLOGY ORDERABLES Fi nal Result [facility] [address] [place] [address] documented in this encounter Visit Diagnoses Not on filedocumented in this encounter Care Teams Insurance Verify Rep Relationship Specialty Start Date End Date Micki Iniguez MD PCP - General 02/02/1010/22 documented as of this encounter
--- OUTSIDE RECORDS SUMMARY | 2024-03-07 11:18 | XMS_ITS | Encounter Summary ---
Author Organization [facility] Address [address] [place] [address] Care Team Providers Care Marble Rubber Name Role Phone Unavailable Primary Care Provider Unavailabl e Encounter Details Date Type Department Care Team (Late st Contact Info) Description 03/27/2006 Results Only [facility] [address] [place] [address] Kayli Engel FNP [address] [place], [place] [id number] Social History Tobacco Use Types Packs/Day Years [...] 69. [facility] Report Status Final [id number] [facility] 03/27/2006 8:18 EST 03/31/2006 8:18 EST us Kayli Engel TIRE FINISHER MICROBIOLOGY - GENERAL ORDERABLE S Final Result [facility] [address] [place] [address] * CYTOPATHOLOGY (03/27/2006 0:00 EST) Pathology Report: CYTOPATHOLOGY REPORT Reports generated via electronic interface contain original data; however they are lacking the format of the original report. Caution should be taken when reading/interpreti ng unformatted reports. Name: ? JAMEL STEVE L ? Accession #: ? [id number] : ? 1955 (Age: 51) ??F ?Collect Date: ? 03/27/2006 Location: ? [facility] ? Receive Date: ? 03/29/2006 Provider: ?KAYLI ENGEL TIRE FINISHER Copy to: ? Specimen/Source: ?ThinPrep Pap Test, Cervix/Endocervix, processed on [employer] ThinPrep Imaging System, with manual evaluation Last [...] Final Resul t [facility] [address] [place] [address] documented in this encounter Visit Diagnoses Not on filedocumented in this encounter
--- OUTSIDE RECORDS SUMMARY | 2024-03-07 11:18 | XMS_ITS | Clinical Summary ---
Author Organization [facility] Address [address] [place] [address] Care Team Providers Care Retail Cosmetics Sales Counter Manager Name Role Phone Christine Fuentes PA-C [...] Insurance [employer] MEDICARE [place] Care Teams Retail Cosmetics Sales Counter Manager Relationship Specialty Start Date End Date Christine Fuentes PA-C [address] [place] [phone] PCP - General 10/23/16
--- OUTSIDE RECORDS SUMMARY | 2024-03-07 11:18 | XMS_ITS | Encounter Summary ---
Author Organization [facility] Address [address] [place] [address] Care Team Providers Care Body Artist Name Role Phone Christine Fuentes PA-C Primary Care Provider + Encounter Details Date Type Department Care Team (Latest Contact Info) Description 04/10/2017 9:46 EST - 04/10/2017 23:59 EST Hospital Encounter [address] [address] Micki Iniguez MD Discharge Disposition: Home or [...] Code Departure Means Destination Home or Self Custodial documented in this encounter Plan of Treatment Not on file documented as of this encounter Visit Diagnoses Not on filedocumented in this encounter Care Teams Body Artist Relationship Specialty Start Date End Date Christine Fuentes PA-C [address] [place] [address] PCP - General 10/23/16 documented as of this encounter
--- OUTSIDE RECORDS SUMMARY | 2024-03-07 11:18 | XMS_ITS | Encounter Summary ---
Author Organization [facility] Address [address] [place] [address] Care Team Providers Care Training And Development Director Name Role Phone Unavailable Primary Care Provider Unavailabl e Encounter Details Date Type Department Care Team (Late st Contact Info) Description 11/13/2008 Orders Only [facility] - [facility] ([facility] [address] [place], [place] [address] Kayli Engel FNP [address] [place], [place] [id number] Social History Tobacco Use Types Packs/Day Years [...] ? STEVE MARX ? Accession #: ? [id number] ? : ? 1955 (Age: 53) ??F [...] [facility] 11/13/2008 11/14/2008 us Kayli Engel DISTRICT OPERATIONS MANAGER PATHOLOGY ORDERABLES Final Resul t [facility] [address] [place] [address] documented in this encounter Visit Diagnoses Not on filedocumented in this encounter
--- OUTSIDE RECORDS SUMMARY | 2024-03-07 11:18 | XMS_ITS | Encounter Summary ---
Author Organization [facility] Address [address] [place] [address] Care Team Providers Care Industry Segment Specialist Name Role Phone Micki Iniguez MD Primary Care Provide r Unavailable Encounter Details Date Type Department Care Team (Late st Contact Info) Description 12/11/2013 Results Only [facility] - [facility] ([facility] [address] [place], [place] [id number] Kayli Engel FNP [address] [place], [place] [address] Social History Tobacco Use Types Packs/Day Years [...] ? STEVE MARX ? Accession #: ? [id number] : ? 1955 (Age: 58) ??F ?Collect Date: ? 12/11/2013 Location: ? [facility] ? Receive Date: ? 12/13/2013 Provider: ?KAYLI ENGEL MACHINE II ENGRAVER Copy to: ? Specimen/Source: ?Pap Test, Cervix/Endocervix, [...] Date: ??12/18/2013 11:05 End of Report [facility] 12/11/2013 12/13/2013 us Kayli Engel MACHINE II ENGRAVER PATHOLOGY ORDERABLES Final Resul t [facility] [address] [place] [address] documented in this encounter Visit Diagnoses Not on filedocumented in this encounter Care Teams Industry Segment Specialist Relationship Specialty Start Date End Date Micki Iniguez MD PCP - General 02/02/1010/22 documented as of this encounter
--- OUTSIDE RECORDS SUMMARY | 2024-03-07 11:19 | XMS_ITS | Encounter Summary ---
Author Organization Replaced By [facility] [place] [address] Care Team Providers Care Acid Condenser Name Role Phone Christine Fuentes Primary Care Provider +1- [phone] Encounter Details Date Type Department Care Team (Latest Contact Info) Description 02/21/2018 1:54 PM EST - 02/21/2018 11:59 PM EST Hospital Encounter Hematology [place] [address] Ductal carcinoma in situ (DCIS) of breast, [...] (02/21/2018 2:11 PM EST) Research Venipuncture Complete [facility] Blood specimen (specimen) 02/21/2018 2:11 PM EST 02/21/2018 2:18 PM EST Narrative Resulting Agency Comment Spec In Lab Avi Talbot MD CHEMISTRY ORDERABLES [facility] [place] [address] documented in this encounter Visit Diagnoses Diagnosis Ductal carcinoma in situ (DCIS) of breast, unspecified laterality Family history of malignant neoplasm of breast documented in this encounter Care Teams Acid Condenser Relationship Specialty Start Date End Date Christine Fuentes PA [address] [place] [address] PCP - General Family Medicine 01/24/17 10/08/19 documented as of this encounter
--- OUTSIDE RECORDS SUMMARY | 2024-03-07 11:19 | XMS_ITS | Encounter Summary ---
Author Organization [facility] [place] [address] Care Team Providers Care Physical Therapy Aides Teacher Name Role Phone Christine Fuentes Primary Care Provider +1- [phone] Encounter Details Date Type Department Care Team (Late st Contact Info) Description 03/01/2018 Orders Only Hematology [place] [address] Aliyah Connors, PHYSICS TEACHER [facility] [place] [address] Research subject (Primary Dx) Social History Tobacco [...] children documented in this encounter Care Teams Physical Therapy Aides Teacher Relationship Specialty Start Date End Date Christine Fuentes PA [address] [place] [address] PCP - General Family Medicine 01/24/17 10/08/19 documented as of this encounter
--- OUTSIDE RECORDS SUMMARY | 2024-03-07 11:19 | XMS_ITS | Encounter Summary ---
[place] [address] Care Team Providers Care Copy Preparer Name Role Phone Christine Fuentes Primary Care Provider +1- [phone] Encounter Details Date Type Department Care Team (Late st Contact Info) Description 03/12/2018 Telephone Hematology [place] [address] Kiersten Wilson RN Social History Tobacco Use [...] that she will undergo root canal (in [facility]) on 03/13. She has been [...] on filedocumented in this encounter Care Teams Copy Preparer Relationship Specialty Start Date End Date Christine Fuentes PA [address] [place] [address] PCP - General Family Medicine 01/24/17 10/08/19 documented as of this encounter
--- OUTSIDE RECORDS SUMMARY | 2024-03-07 11:19 | XMS_ITS | Encounter Summary ---
[place] [address] Care Team Providers Care Saw Maker Name Role Phone Christine Fuentes Primary Care Provider +1- [phone] Encounter Details Date Type Department Care Team (Late st Contact Info) Description 04/24/2018 3:30 [place] [address] January Davis Social History Tobacco Use Types [...] for f/up today. She is here to pickling tank operator items ordered for her on 04/10/18 Patient Cecilia Marx 1.24.57 DX Right br ca C50.911 [facility] L8020 Products 929-08 Quantity 1 Ordering Marla Brice Self Pay supervisor filter assembly date 04.24.18 Delivered today: 110 bra beige 110 bra black 929-08 X2 See 04/10/18 note for fitting details Paid with card on 04.10.18 $180.52 documented in this encounter Plan of Treatment Not on file documented as of this encounter Visit Diagnoses Not on filedocumented in this encounter Care Teams Saw Maker Relationship Specialty Start Date End Date Christine Fuentes PA [address] [place] [address] PCP - General Family Medicine 01/24/17 10/08/19 documented as of this encounter
--- OUTSIDE RECORDS SUMMARY | 2024-03-07 11:19 | XMS_ITS | Encounter Summary ---
Author Organization [facility] [place] [address] Care Team Providers Care Patent Lawyer Name Role Phone Christine Fuentes Primary Care Provider +1- [phone] Encounter Details Date Type Department Care Team (Late st Contact Info) Description 02/21/2018 Notes Only Hematology [place] [address] Aliyah Maynard, PRESS DEPARTMENT MANAGER [facility] DR [place]ATOLOGY [place] [address] Social History Tobacco Use Types Packs/Day Years [...] Maynard, RN - 02/21/2018 12:17 PM EST [id number]: Preclinical study of the aryl hydrocarbon receptor and other biomarkers in human adipose tissue and their potential links among obesity and breast cancer Date: 02/21/2018 Objective of visit: Meet with patient in [facility] clinic to provide information regarding protocol [id number], answer questions or concerns about study plan [...] and patient will be enrolled on study [id number] per her consent. 2. Orders will be placed for study lab and tissue sample to be taken day of procedure; which will conclude her participation in the study. Dr. Cordova's lab notified. documented in this encounter Plan of Treatment Not on file documented as of this encounter Visit Diagnoses Not on filedocumented in this encounter Care Teams Patent Lawyer Relationship Specialty Start Date End Date Christine Fuentes PA [address] [place] [address] PCP - General Family Medicine 01/24/17 10/08/19 documented as of this encounter
--- OUTSIDE RECORDS SUMMARY | 2024-03-07 11:19 | XMS_ITS | Encounter Summary ---
[place] [address] Care Team Providers Care Manufacturing Baker Name Role Phone Christine Fuentes Primary Care Provider +1- [phone] Reason for Referral * Diagnostic Test (Routine) - Closed Specialty Diagnoses / Procedures Referred By Contac t Referred To Contact Radiology Diagnoses Malignant neoplasm of right breast in female, estrogen receptor positive, unspecified site of breast Procedures MRI Breast wwo Contrast Marla Pearce MD [facility] [place] [address] [place] [address] Referral ID Status Reason Start Date Expiration Date V isits Requested Visits Authorized [id number] Closed Specialty Service Requested 02/10/2018 04/10/2018 1 1 Reason for Visit * Diagnostic Test (Routine) - Closed Specialty Diagnoses / Procedures Referred By Contac t Referred To Contact Radiology Diagnoses Malignant neoplasm of right breast in female, estrogen receptor positive, unspecified site of breast Procedures MRI Breast wwo Contrast Marla Pearce MD [facility] [place] [address] [place] [address] Referral ID Status Reason Start Date Expiration Date V isits Requested Visits Authorized [id number] Closed Specialty Service Requested 02/10/2018 04/10/2018 1 1 Encounter Details Date Type Department Care Team (Late st Contact Info) Description 02/16/2018 10:27 AM EST - 02/16/2018 11:59 PM EST [place] [address] Marla Brice MD Malignant neoplasm of right [...] contrast enhancement curve analysis was performed, using inDeg[employer] software. COMPARISON STUDIES: Compared and/or correlated with [...] contrast enhancement curve analysis was performed, using [employer] software. COMPARISON STUDIES: Compared and/or correlated with [...] mLs documented in this encounter Care Teams Manufacturing Baker Relationship Specialty Start Date End Date Christine Fuentes PA [address] [place] [address] PCP - General Family Medicine 01/24/17 10/08/19 documented as of this encounter
--- OUTSIDE RECORDS SUMMARY | 2024-03-07 11:19 | XMS_ITS | Encounter Summary ---
[place] [address] Care Team Providers Care Bag Worker Name Role Phone Christine Fuentes Primary Care Provider +1- [phone] Encounter Details Date Type Department Care Team (Late st Contact Info) Description 02/22/2018 Telephone Hematology [place] [address] Kiersten Wilson RN Social History Tobacco Use [...] a 62 y.o. female with newly diagnosed ER/TX+ right breast DCIS (biopsy 01/30/2018at [facility]). She has a history of right breast [...] may meet with our mastectomy fitter in [place] or someone closer to her home. Will provide information to her on [facility] in [place].. documented in this encounter Plan of Treatment Not on file documented as of this encounter Visit Diagnoses Not on filedocumented in this encounter Care Teams Bag Worker Relationship Specialty Start Date End Date Christine Fuentes PA [address] [place] [address] PCP - General Family Medicine 01/24/17 10/08/19 documented as of this encounter
--- OUTSIDE RECORDS SUMMARY | 2024-03-07 11:19 | XMS_ITS | Encounter Summary ---
Author Organization [facility] [place] [address] Care Team Providers Care Pediatric Pathologist Name Role Phone Christine Fuentes Primary Care Provider +1- [phone] Encounter Details Date Type Department Care Team (Late st Contact Info) Description 04/30/2018 Telephone [place] [phone] Chantelle Foote RN Social History Tobacco Use [...] General Surgery Nurses line. Cecilia lives in [place], [place] ~ [place] She [...] go locally or she can come to [facility]. She notes some times wearing the bra can put pressure on the healing areas increasing irritation. I called Cecilia back and let her know all of this information, she agrees with the plan. I will share this note with Cecilia's primary care provider also. Delon Tyson MD routed this conversation to Marla Brice MD ??? [facility] Delon Tyson MD ?? 04/29/18 11:55 AM [...] ?? Robert Tyson Vascular Surgery, PGY3 Pager #[phone] documented in this encounter Plan of Treatment Not on file documented as of this encounter Visit Diagnoses Not on filedocumented in this encounter Care Teams Pediatric Pathologist Relationship Specialty Start Date End Date Christine Fuentes PA [address] [place] [address] PCP - General Family Medicine 01/24/17 10/08/19 documented as of this encounter
--- OUTSIDE RECORDS SUMMARY | 2024-03-07 11:19 | XMS_ITS | Encounter Summary ---
[place] [address] Care Team Providers Care Specialized Developer Name Role Phone Christine Fuentes Primary Care Provider +1- [phone] Reason for Visit * Reason Comments Follow-up Encounter Details Date Type Department Care Team (Late st Contact Info) Description 03/30/2018 1:30 PM EST Office [place] [address] Marla Brice MD Ductal carcinoma in situ [...] s/p partial mastectomy and RT in 2009 ([facility]) Left breast, mastectomy: - [...] 6 months for CBE with Barbara Brumfield BUSINESS LOAN PROCESSOR - drains to be removed today - physical therapy Marla Brice MD Surgical Oncology documented in this encounter Plan of Treatment Not on file documented as of this encounter Visit Diagnoses Diagnosis Ductal carcinoma in situ (DCIS) of right breast documented in this encounter Care Teams Specialized Developer Relationship Specialty Start Date End Date Christine Fuentes PA [address] [place] [address] PCP - General Family Medicine 01/24/17 10/08/19 documented as of this encounter
--- OUTSIDE RECORDS SUMMARY | 2024-03-07 11:19 | XMS_ITS | Encounter Summary ---
Author Organization [facility] [place] [address] Care Team Providers Care Unpaid Intern Name Role Phone Christine Fuentes Primary Care Provider +1- [phone] Reason for Visit * Auth/Cert Specialty Diagnoses [...] Expiration Date Visits Re quested Visits Authorized [id number] 1 1 Encounter Details Date Type Department Care Team (Late st Contact Info) Description 03/15/2018 1:11 PM EST - 03/16/2018 11:45 AM [facility] Hospital [place] [address] Marla Zepeda MD Malignant neoplasm of female [...] this encounter Discharge Summaries * Aleah Vigil, BUSINESS SERVICES SALES AGENT - 03/16/2018 10:42 AM EST General Surgery [...] bony pain or tenderness.stopped drinking wine around [place] time due to depression. ?? Reports a left breast infection about 2-3 weeks after biopsy. Had redness, pain and inverted nipple. She was started on augmentin for 21 days and symptoms resolved. ?? Here today with her . Operations/Major Procedures: Operations: 03/15/2018 Surgeon(s) and Role: * Marla Zepeda MD - Primary * Sera Weller MD - Resident-Gunsmith Apprentice * Vu Angela MD - Resident-Surgeon Tonny [...] Discharge: Final Surgical Pathology pending. Studies: NM Glendale Node Injection Breast wo Imaging (03/16): IMPRESSION Glendale node injections performed without complication. Discharge Exam: [...] to: Home VNA: Yes Name of facility: [facility]. Contact information: PHONE: [phone] Discharge Conditions/Prognosis: Stable Discharge Medications: The following [...] Avi Talbot MD Leb Hem Onc [facility] 03/30/2018 3:15 PM Magdalena Madrigal, PT PT Rehab [facility] Outpatient Services/Studies: Referral to Home Health - at DISCHARGE Order Comments: DOCUMENTATION FOR VNA SERVICES (INCLUDING THOSE PATIENTS WITH MEDICARE COVERAGE REQUIRING HOME VNA SERVICES AND/OR HOSPICE SERVICES) PATIENT'S LOCATION: Cecilia Marx [place] [facility] [phone] (home) [phone] (cell) Door To Door Sales Representative's Name: Self In discussion with the attending physician, it is certified that this patient is under their care and that they, or a Nurse Practitioner,Clinical Nurse specialist or Physician Concrete Paving Machine Operator who is working directly with them, had [...] program if appropriate. HOME HEALTH CARE AGENCY: [facility]. PHONE: [phone] FAX: [phone] Start of care: 24-48 hrs after discharge Please note that any additional orders needs or changes will need to be obtained from this patient's PCP: NNAMDI Nicole [address] / [place] [address] All VNA agencies which cover the area of patient's residence have been reviewed, either verbally stacia writing, and patient/family have chosen the home health care agency noted Question Response Notes Agency name and contact information [facility] Patient location post discharge Home [...] than 30cc perday for 2 consecutive days. [phone] You may shower with the drains in [...] Dr. Zepeda in 2-3 weeks Please call [phone] to confirm date and time of your appointment if you do not hear from us inthe week. Call Doctor for: Worsening redness or drainage from your incision lasting longer than 5 days following surgery Any foul-smelling drainage from the incision Fevers greater than 101 degrees F Persistent nausea or vomiting (this may be related to opioid pain medications) Phone number for questions: [phone] before 5 PM weekdays [phone] after 5 PM and on weekends/holidays Future Appointments Date Time Provider Department Center 03/30/2018 1:30 PM Marla Zepeda MD Leb Surg [facility] 03/30/2018 2:00 PM Avi Talbot MD Leb Hem Onc [facility] 03/30/2018 3:15 PM Magdalena Madrigal, PT PT Rehab [facility] General Instructions None Acute [...] CC: NNAMDI Nicole Signed: Aleah Vigil APRN [facility] Surgical Oncology Service Team Pager #[phone] 03/16/2018 11:44 AM documented in this encounter [...] than 30cc perday for 2 consecutive days. [phone] You may shower with the drains in [...] Dr. Zepeda in 2-3 weeks Please call [phone] to confirm date and time of your appointment if you do not hear from us inthe week. Call Doctor for: Worsening redness or drainage from your incision lasting longer than 5 days following surgery Any foul-smelling drainage from the incision Fevers greater than 101 degrees F Persistent nausea or vomiting (this may be related to opioid pain medications) Phone number for questions: [phone] before 5 PM weekdays [phone] after 5 PM and on weekends/holidays Future Appointments Date Time Provider Department Center 03/30/2018 1:30 PM Marla Zepeda MD Leb Surg [facility] 03/30/2018 2:00 PM Avi Talbot MD Leb Hem Onc [facility] 03/30/2018 3:15 PM Magdalena Madrigal, PT PT Rehab [facility] * Attachments The following attachments cannot be sent through Care Everywhere. * Surgical Drain Care (Malay) documented in this encounter Medications at Time [...] RN - 03/16/2018 9:46 AM EST The patient/environmental marketing representative has been provided a list of Home Health Agencies which serve their preferred geographic area. A letter describing our affiliations was reviewed with them and they were educated about their right to choose where referrals are placed. Patient requests referral to [facility]. PHONE: [phone] FAX: [phone]. Expected date of discharge: 03/16/18. Referral routed to the Change House Attendant for matching with agency/vendor and to [...] supportive. He will be staying in the [facility] overnight and will keep all pt [...] of the room to the front office secretary by Rachana Leary RN at 2009, verified with Noemi and lab informed at 2012. #2 right axillary node #3 left breast tissue out at 2057 and sent to the front office secretary at 2113 on 03/15/18, verified by Luis Womack and noemi that there were two specimens in the bag , right sentinal node and left breast tissue. Contact the patient to update him on the procedure at 2025 on 03/15/18. documented in this encounter Miscellaneous Notes * Op Note - Marla Zepeda MD - 03/16/2018 11:45 AM EST [facility] [place] Operative Note Patient Name: Cecilia Marx : [id number] MR#: [id number] Case Date: 03/15/2018 Surgeon: Surgeon(s) and Role: * Marla Zepeda MD - Primary * Sera Weller MD - Resident-Gunsmith Apprentice * Vu Angela MD - Resident-Surgeon Tonny [...] Operative Note Patient Name: Cecilia Marx : [id number] MR#: [id number] Case Date: 03/15/2018 Surgeon: Surgeon(s) and Role: * Marla Zepeda MD - Primary * Sera Weller MD - Resident-Gunsmith Apprentice * uV Angela MD - Resident-Surgeon Tonny Preoperative diagnosis: [...] PM EST 03/15/2018 9:[address] [facility] - 03/15/2018 9:38 PM EST Specimen requisition ordered. ??Separate Pathology report to follow Resulting Agency Comment Spec In Lab Marla Blue MD PATHOLOGY/CYTOLO GY ORDERABLES [facility] [place] [place] [address] * Specimen to Pathology (03/15/2018 9:00 PM EST) AP Specimen 03/15/2018 9:00 PM EST 03/15/2018 9:[address] [facility] - 03/15/2018 9:38 PM EST Specimen requisition ordered. ??Separate Pathology report to follow Resulting Agency Comment Spec In Lab Marla Blue MD PATHOLOGY/CYTOLO GY ORDERABLES [facility] [place] [place] [address] * Specimen to Pathology (03/15/2018 8:06 PM EST) AP Specimen 03/15/2018 8:06 PM EST 03/15/2018 8:[address] [facility] - 03/15/2018 8:06 PM EST Specimen requisition ordered. ??Separate Pathology report to follow Marla Blue MD PATHOLOGY/CYTOLO GY ORDERABLES [facility] [place] [place] [address] * Surgical Pathology Report (03/15/2018 8:04 PM EST) Final Diagnosis [id number] ? [facility]; MD22; A The signing pathologist has (i) examined [...] ?? Uninvolved by tumor cells ?Number of Glendale Nodes Examined: ?4 Pathologic Stage Classification (pTNM, AJCC 8th Edition) ? Primary Tumor (pT): ?? pTis (DCIS) ? Regional Lymph Nodes (pN) ?Modifier: ??(sn): Glendale node(s) evaluated. ?Category (pN): ?? pN0 Tumor Block(s): ?? A11 CAP eCC February 2017 Agile Release ER and MI studies (performed on prior biopsy, [id number]): ER: Positive (>90%, strong) MI: Positive (50%, moderate to strong) Electronically signed by: ??Antonio BANGURA, Delon Lewis Verified: ??03/22/2018 ?Pathologist Performed at: ??-[facility] [place] Dept. of Pathology, [place], [place] . DISCUSSION An admixture of atypical [...] is blue, deep is black. Sections/Processi ng: Hydrator Operator sections in 22 cassettes as follows: [...] 2.5 cm. . SPECIMEN PROCESSING Sections/Processi ng: ??Hydrator Operator sections in 6 cassettes as follows: [...] noted. Ink Designation: Deep/black; superficial/blue. Sections/Processi ng: Hydrator Operator sections in 12 cassettes as follows: ? C1: ? Nipple ? C2: ? Base of nipple ? C3-C4: ?Hydrator Operator upper outer quadrant ? C5-C6: ?Hydrator Operator lower inner quadrant ? C7-C8: ?Hydrator Operator central ? C9-C10: ?? Hydrator Operator upper inner quadrant ? C11-C12: ??Hydrator Operator lower inner quadrant Ischemic Time: 0.8 hours ??pps 03/22/2018 4:[address] [facility] BREAST STRUCTURE / Unknown 03/15/2018 8:04 PM EST 03/15/2018 8:04 PM EST SENTINEL LYMPH NODE / Unknown 03/15/2018 8:04 PM EST 03/15/2018 8:04 PM EST BREAST STRUCTURE / Unknown 03/15/2018 8:04 PM EST 03/15/2018 8:04 PM EST Marla Blue MD PATHOLOGY/CYTOLO GY ORDERABLES Performing Organization Address City/State/[facility] [[email or web address]] Co de Phone Number [facility] [place] [place] [address] documented in this encounter Visit Diagnoses Diagnosis [...] Strickland RN)225 (Given - Provider: Mackenzie R Em, RN) ibuprofen (ADVIL;MOTRIN) tablet 600 mg 600 [...] Unit) documented in this encounter Care Teams Unpaid Intern Relationship Specialty Start Date End Date Christine Fuentes PA [address] [place] [address] PCP - General Family Medicine 01/24/17 10/08/19 documented as of this encounter
--- OUTSIDE RECORDS SUMMARY | 2024-03-07 11:19 | XMS_ITS | Encounter Summary ---
[facility] [place] [address] Care Team Providers Care Table Maker Name Role Phone Christine Fuentes Primary Care Provider +1- [phone] Encounter Details Date Type Department Care Team (Late st Contact Info) Description 08/29/2018 Orders [place] [address] Bautista Mcgrath MD [facility] [place] [address] Fatty liver Social History Tobacco Use Types [...] disease documented in this encounter Care Teams Table Maker Relationship Specialty Start Date End Date Christine Fuentes PA [address] [place] [address] PCP - General Family Medicine 01/24/17 10/08/19 documented as of this encounter
--- OUTSIDE RECORDS SUMMARY | 2024-03-07 11:19 | XMS_ITS | Encounter Summary ---
Author Organization [facility] [place] [address] Care Team Providers Care Hull Molder Name Role Phone Christine Fuentes Primary Care Provider +1- [phone] Encounter Details Date Type Department Care Team (Late st Contact Info) Description 02/21/2018 Notes [place] [address] Olga Guan MSW Social History Tobacco Use Types Packs/Day Years Used Date Smoking Tobacco: Former Cigarettes Q uit: 10/19/2011 Smokeless Tobacco: Never Sex and Gender Information Value Date Recorded Sex Assigned at Not on file Gender Identity Not on file Sexual Orientation Not on file documented as of this encounter Progress Notes * Olga Guan MSW - 02/21/2018 2:32 PM EST [facility] met briefly with pt and introduced myself and explained my role in the breast program. Pt had an appt with the genetic counseling program and was not available to meet. I gave pt my contact information and encouraged her to call with any questions or concerns. P- [facility] will Continue to provide support and resources. documented in this encounter Plan of Treatment Not on file documented as of this encounter Visit Diagnoses Not on filedocumented in this encounter Care Teams Hull Molder Relationship Specialty Start Date End Date Christine Fuentes PA [address] [place] [address] PCP - General Family Medicine 01/24/17 10/08/19 documented as of this encounter
--- OUTSIDE RECORDS SUMMARY | 2024-03-07 11:19 | XMS_ITS | Encounter Summary ---
[place] [address] Care Team Providers Care Obiee Report Developer Name Role Phone Christine Fuentes Primary Care Provider +1- [phone] Reason for Visit * Physical Therapy (Routine) - Closed Specialty Diagnoses / Procedures Referred By Cherie abdul Referred To Contact Physical Therapy Diagnoses Breast cancer Marla Brice MD [facility] [place] [address] [facility] [place] [address] Referral ID Status Reason Start Date Expiration Date Visits Re quested Visits Authorized [id number] Closed 03/13/2018 03/13/2019 1 1 Encounter Details Date Type Department Care Team (Late st Contact Info) Description 03/30/2018 3:15 PM EST Office [place] [address] Debra Madrigal, PT [facility]YSICAL MEDIC[facility] & [place] [address] Decreased ROM of right shoulder; Decreased ROM [...] pending: none Social: , pt. lives in [place], [place] Work: retired from [employer] Function/exercise history: walking when weather is good [...] and consistent in home Ex program Therapy Snf Goals: 6 weeks 1. Full functional use [...] limbs documented in this encounter Care Teams Obiee Report Developer Relationship Specialty Start Date End Date Christine Fuentes PA [address] [place] [address] PCP - General Family Medicine 01/24/17 10/08/19 documented as of this encounter
--- OUTSIDE RECORDS SUMMARY | 2024-03-07 11:19 | XMS_ITS | Encounter Summary ---
Author [place] [address] Care Team Providers Care Shoe Singer Name Role Phone Christine Fuentes Primary Care Provider +1- [phone] Encounter Details Date Type Department Care Team (Late st Contact Info) Description 02/27/2018 Telephone [place] [address] Domenica Lama LGC Social History Tobacco Use [...] STK11, TP53) genetic test results. 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 It is unclear at this time whether the STK11 variant of uncertain significance identified is a cancer associated mutation or is a benign change in the gene with no increased cancer risks. [facility] is continually collecting and analyzing [...] on filedocumented in this encounter Care Teams Shoe Singer Relationship Specialty Start Date End Date Christine Fuentes PA [address] [place] [address] PCP - General Family Medicine 01/24/17 10/08/19 documented as of this encounter
--- OUTSIDE RECORDS SUMMARY | 2024-03-07 11:19 | XMS_ITS | Encounter Summary ---
[place] [address] Care Team Providers Care Drafter Name Role Phone Christine Fuentes Primary Care Provider +1- [phone] Encounter Details Date Type Department Care Team (Late st Contact Info) Description 04/10/2018 9:30 [place] [address] January Davis Social History Tobacco Use Types [...] 04/10/2018 9:30 AM EST Cecilia Marx 1955 [id number] Prescription Received:Yes Insurance: Private Previous Fitting: First [...] Stock Ordered Delivery Date Type L8030 ABC 33016-90-PB 2 Y 2.19.19 Prospect L8020 ABC 929-08-BH 2 N 2.19.19 3.5.19 Prospect L8000 ABC 103-42C-BE 1 Y 2.19.19 BRA L8000 ABC 890-23W-Iscrri 1 Y 2.19.19 BRA L8000 ABC 110-L-C/D-MINT [...] filedocumented in this encounter Care Teams Drafter Relationship Specialty Start Date End Date Christine Fuentes PA [address] [place] [address] PCP - General Family Medicine 01/24/17 10/08/19 documented as of this encounter
--- OUTSIDE RECORDS SUMMARY | 2024-03-07 11:19 | XMS_ITS | Encounter Summary ---
[place] [address] Care Team Providers Care Banking And Finance Instructor Name Role Phone Christine Fuentes Primary Care Provider +1- [phone] Encounter Details Date Type Department Care Team (Late st Contact Info) Description 05/08/2018 Telephone Hematology [place] [address] Trinh Lira Social History Tobacco Use Types [...] on filedocumented in this encounter Care Teams Banking And Finance Instructor Relationship Specialty Start Date End Date Christine Fuentes PA [address] [place] [address] PCP - General Family Medicine 01/24/17 10/08/19 documented as of this encounter
--- OUTSIDE RECORDS SUMMARY | 2024-03-07 11:19 | XMS_ITS | Encounter Summary ---
[place] [address] Care Team Providers Care Cabinet Abrasive Sandblaster Name Role Phone Christine Fuentes Primary Care Provider +1- [phone] Encounter Details Date Type Department Care Team (Late st Contact Info) Description 03/18/2018 Telephone [place] [address] Nick Hodges MD Social History Tobacco Use [...] on filedocumented in this encounter Care Teams Cabinet Abrasive Sandblaster Relationship Specialty Start Date End Date Christine Fuentes PA [address] [place] [address] PCP - General Family Medicine 01/24/17 10/08/19 documented as of this encounter
--- OUTSIDE RECORDS SUMMARY | 2024-03-07 11:19 | XMS_ITS | Encounter Summary ---
Author Organization [facility] [place] [address] Care Team Providers Care Loan Servicing Officer Name Role Phone Christine Fuentes Primary Care Provider +1- [phone] Reason for Visit * Auth/Cert Specialty Diagnoses [...] Expiration Date Visits Re quested Visits Authorized [id number] 1 1 Encounter Details Date Type Department Care Team (Late st Contact Info) Description 03/15/2018 6:13 PM EST Anesthesia Event Main [place] [address] Zhou De Jesus MD [facility] DR [place] [address] Natty Henriquez MD Anesthesia Record Procedure Summary [...] 1856; metacarpal vein (top of hand), left; zsih-gye-qntqng catheter system; 20 gauge; 03/16/18; 1121 03/15/18 1856 by Francisca Olmos, DATA OPERATIONS DIRECTOR 03/16/18 112 by Teresa Johnson RN documented [...] Jesus MD - 03/15/2018 11:23 PM EST [facility] [place] of Anesthesiology Post-procedure Note Patient: Cecilia Marx Procedure Summary Date: 03/15/18 Room / Location: [facility] OR [address] [place] [address] MAIN OR Anesthesia Start: 1812 Anesthesia Stop: [...] David Weston MD; Zhou De Jesus MD DATA OPERATIONS DIRECTOR: Sanjuana Loja CRNA Student Nurse Railroad Track Mechanic: Francisca Olmos Vitals Value Taken Time BP 129/87 03/15/2018 11:15 PM Temp 36.8 ??C (98.2 ??F) 03/15/2018 11:15 PM Pulse 95 03/15/2018 11:15 PM Resp 16 03/15/2018 11:15 PM SpO2 97 % 03/15/2018 11:17 PM Pain Level 5 03/15/2018 10:52 PM Vitals shown include unvalidated device data. Patient Location: PACU/[facility] Level of Consciousness: Awake and Alert [...] and mask, cap, sterile gloves, hand hygeine K-xiznm-gbmrv 21 10 cm Ultrasound Guided: Live and [...] Single-shot BUpivacaine 0.25%, 40 mL no complications Resident/DATA OPERATIONS DIRECTOR:: Spike Miranda DO Attending Physician:: Zhou De [...] Stereotactic Biopsy Right 01/30/2018 Babs Duvall MD [facility] RAD MAMMOGRAPHY ??? PRO EXCISE BREAST LES W XRAY MARKER Left 03/30/2017 EXCISION LESION, BREAST W/ PREOP.MARKER (NEEDLE LOC.) (WRVU 6.69) performed by Marla Brice MD at [facility] OSC Social History Tobacco Use ??? [...] risks discussed with patient. Plan discussed with DATA OPERATIONS DIRECTOR. PAT Staff Note documented in this encounter [...] and mask, cap, sterile gloves, hand hygeine U-dnyaf-svfhj 21 10 cm Ultrasound Guided: ??Live and [...] BUpivacaine 0.25%, 40 mL no complications ?? Resident/DATA OPERATIONS DIRECTOR:: ??Spike Miranda, DO Attending Physician:: ??Liza, Zhou Lewis MD 20cc 0.25% infiltrated each side. 10cc for PEC 1 block and 10cc for PEC 2 block. Zhou De Jesus MD METER/RELAY TECHNICIAN [facility] documented in this encounter Visit Diagnoses [...] patch documented in this encounter Care Teams Loan Servicing Officer Relationship Specialty Start Date End Date Christine Fuentes PA [address] [place] [address] PCP - General Family Medicine 01/24/17 10/08/19 documented as of this encounter
--- OUTSIDE RECORDS SUMMARY | 2024-03-07 11:19 | XMS_ITS | Encounter Summary ---
[place] [address] Care Team Providers Care Side Laster Name Role Phone Christine Fuentes Primary Care Provider +1- [phone] Encounter Details Date Type Department Care Team (Late st Contact Info) Description 03/01/2018 Telephone Hematology [place] [address] Domenica Lama LGC Social History Tobacco Use [...] is provided below. Please be advised that [place] law requires that allhealth care workers respect the confidentiality of this information and not pass it along to other health care providers, insurance companies, or individuals without the written permission of the patient. The [facility] welcomes any questions about these matters. Our phone number is: [phone]. On February 21, 2018, Cecilia underwent genetic [...] BRCA2, BRIP1, CDH1, CDK4, CDKN2A (p14ARF), CDKN2A (p47PPI0x), CHEK2, CTNNA1, DICER1, EPCAM (EPCAM: Deletion/duplication testing only (NM_[id number]), GREM1 (GREM1: Promoter region deletion/duplication testing only.), KIT, MEN1, MLH1, MSH2, MSH3, MSH6, MUTYH, NBN, NF1, PALB2, PDGFRA, PMS2, POLD1, POLE, PTEN, RAD50, RAD51C, RAD51D, SDHB, SDHC, SDHD, SMAD4, SMARCA4, STK11, TP53, TSC1, TSC2, VHL. The following g saira were evaluated for sequence changes only: HOXB13 (c.251G>A, p.Jdz79Qoh variant only), NTHL1(NTHL1: Deletion/duplication analysis is not offered for this gene (NM_002528.6), and SDHA. A variant of uncertain significance in the STK11 gene, specifically c.992G>A (p.Iwi641Bsi), was detected. We are enclosing a printed copy of Cecilia's test results. Interpretation: It is unclear at this time whether the STK11 variant of uncertain significance identified in Cecilia is a cancer associated mutation or is a benign change in the gene with no increased cancer risks. [facility] is continually collecting and analyzing their data, [...] screening studies in addition to an annual MID LEVEL NET DEVELOPER exam at this time. Other cancer screening ?? Periodic colonoscopy screening as recommended by Cecilia's financial dealers. ?? Periodic skin exams documented in this encounter Plan of Treatment Not on file documented as of this encounter Visit Diagnoses Not on filedocumented in this encounter Care Teams Side Laster Relationship Specialty Start Date End Date Christine Fuentes PA [address] [place] [address] PCP - General Family Medicine 01/24/17 10/08/19 documented as of this encounter
--- OUTSIDE RECORDS SUMMARY | 2024-03-07 11:19 | XMS_ITS | Encounter Summary ---
[place] [address] Care Team Providers Care Parts Back Counter Man Name Role Phone Christine Fuentes Primary Care Provider +1- [phone] Encounter Details Date Type Department Care Team (Late st Contact Info) Description 02/21/2018 10:45 AM EST Office Visit Hematology [place] [address] Marla Brice MD Maynard, Kimberly J, RN [...] Exercises handout created by physical therapists at [facility]. She understands she may begin the first [...] Clinic Nurses was given and the Doctor inventory control/shipping receiving system explained. 10. We discussed the recommended [...] s/p partial mastectomy and RT in 2009 ([facility]). She was followed by surgeon [...] bony pain or tenderness.stopped drinking wine around [place] time due to depression. Reports a left [...] Stereotactic Biopsy Right 01/30/2018 Babs Duvall MD [facility] RAD MAMMOGRAPHY ??? PRO EXCISE BREAST LES W XRAY MARKER Left 03/30/2017 EXCISION LESION, BREAST W/ PREOP.MARKER (NEEDLE LOC.) (WRVU 6.69) performed by Marla Brice MD at [facility] Current Outpatient Medications: ??? hydrocortisone [...] breast documented in this encounter Care Teams Parts Back Counter Man Relationship Specialty Start Date End Date Christine Fuentes PA [address] [place] [address] PCP - General Family Medicine 01/24/17 10/08/19 documented as of this encounter
--- OUTSIDE RECORDS SUMMARY | 2024-03-07 11:19 | XMS_ITS | Encounter Summary ---
[place] [address] Care Team Providers Care Superintendent Electric Power Name Role Phone Christine Fuentes Primary Care Provider +1- [phone] Encounter Details Date Type Department Care Team (Late st Contact Info) Description 01/28/2019 Telephone Hematology [place] [id number] Serena Tran Social History Tobacco Use Types [...] filedocumented in this encounter Care Teams Superintendent Electric Power Relationship Specialty Start Date End Date Christine Fuentes PA [address] [place] [address] PCP - General Family Medicine 01/24/17 10/08/19 documented as of this encounter
--- OUTSIDE RECORDS SUMMARY | 2024-03-07 11:19 | XMS_ITS | Encounter Summary ---
[place] [address] Care Team Providers Care Mine Technician Name Role Phone Christine Fuentes Primary Care Provider +1- [phone] Reason for Referral * Diagnostic Test (Routine) - Closed Specialty Diagnoses / Procedures Referred By Contac t Referred To Contact Radiology Diagnoses Ductal carcinoma in situ (DCIS) of right breast Procedures NM [place] Node Injection Breast Marla Reed MD [facility] [address] [place] [address] Referral ID Status Reason Start Date Expiration Date V isits Requested Visits Authorized [id number] Closed Specialty Service Requested 02/23/2018 02/23/2019 1 1 Reason for Visit * Diagnostic Test (Routine) - Closed Specialty Diagnoses / Procedures Referred By Cherie abdul Referred To Contact Radiology Diagnoses Ductal carcinoma in situ (DCIS) of right breast Procedures NM [place] Node Injection Breast Marla Reed MD [facility] [place] [address] [place] [address] Referral ID Status Reason Start Date Expiration Date V isits Requested Visits Authorized [id number] Closed Specialty Service Requested 02/23/2018 02/23/2019 1 1 Encounter Details Date Type Department Care Team (Late st Contact Info) Description 03/15/2018 12:28 PM EST - 03/15/2018 1:10 PM EST Hospital Encounter [place] [address] Marla Brice MD Ductal carcinoma in situ [...] documented in this encounter Results * NM [place] Node Injection Breast wo Imaging (03/15/2018 1:11 PM EST) Anatomical Region Laterality Modality Nuclear Medicine Impressions 03/15/2018 1:50 PM EST [place] node injections performed without complication. Thank you [...] patient left the department ingood condition. IMPRESSION [place] node injections performed without complication. Thank you for letting us participate in the care of this patient. Forquestions regarding this report, please contact the number below. Marla Blue MD IMG NM ORDERABLE S [...] mCi documented in this encounter Care Teams Mine Technician Relationship Specialty Start Date End Date Chrsitine Fuentes PA [address] [place] [address] PCP - General Family Medicine 12/5/17 8/18/20 documented as of this encounter
--- OUTSIDE RECORDS SUMMARY | 2024-03-07 11:19 | XMS_ITS | Encounter Summary ---
[place] [address] Care Team Providers Care Spinner Continuous Name Role Phone Christine Fuentes Primary Care Provider +1- [phone] Encounter Details Date Type Department Care Team (Late st Contact Info) Description 04/10/2018 Orders [place] [address] Whitney Lewis RN Malignant neoplasm of right [...] breast documented in this encounter Care Teams Spinner Continuous Relationship Specialty Start Date End Date Christine Fuentes PA [address] [place] [address] PCP - General Family Medicine 01/24/17 10/08/19 documented as of this encounter
--- OUTSIDE RECORDS SUMMARY | 2024-03-07 11:19 | XMS_ITS | Encounter Summary ---
Author Organization [facility] [place] [address] Care Team Providers Care Life Advisor Name Role Phone Christine Fuentes Primary Care Provider +1- [phone] Reason for Referral * Diagnostic Test (Routine) - Closed Specialty Diagnoses / Procedures Referred By Cherie abdul Referred To Contact Radiology Diagnoses Malignant neoplasm of right breast in female, estrogen receptor positive, unspecified site of breast Procedures MRI Breast wwo Contrast Marla Pearce MD [facility] [place] [address] [facility] [place] [address] Referral ID Status Reason Start Date Expiration Date V isits Requested Visits Authorized [id number] Closed Specialty Service Requested 02/10/2018 04/10/2018 1 1 Encounter Details Date Type Department Care Team (Late st Contact Info) Description 02/01/2018 Orders [place] [address] Marla Brice MD Malignant neoplasm [...] contrast enhancement curve analysis was performed, using [employer] software. COMPARISON STUDIES: Compared and/or correlated with [...] contrast enhancement curve analysis was performed, using [employer] software. COMPARISON STUDIES: Compared and/or correlated with [...] breast documented in this encounter Care Teams Life Advisor Relationship Specialty Start Date End Date Christine Fuentes PA [address] [place] [address] PCP - General Family Medicine 01/24/17 10/08/19 documented as of this encounter
--- OUTSIDE RECORDS SUMMARY | 2024-03-07 11:19 | XMS_ITS | Encounter Summary ---
Author Organization [facility] [place] [address] Care Team Providers Care Turret Lathe Machinist Name Role Phone Christine Fuentes Primary Care Provider +1- [phone] Reason for Referral * Physical Therapy (Routine) - Specialty Diagnoses / Procedures Referred By Cherie abdul Referred To Contact Physical Therapy Diagnoses Decreased range of motion of shoulder, unspecified laterality Marla Brice MD [facility] [place] [address] Referral ID Status Reason Start Date Expiration Date V isits Requested Visits Authorized [id number] Evaluate and Treat 04/09/2018 10/06/2018 1 1 Encounter Details Date Type Department Care Team (Late st Contact Info) Description 04/09/2018 Orders Only [place] [address] Marla Brice MD Decreased range of motion [...] Primary documented in this encounter Care Teams Turret Lathe Machinist Relationship Specialty Start Date End Date Christine Fuentes PA [address] [place] [address] PCP - General Family Medicine 01/24/17 10/08/19 documented as of this encounter
--- OUTSIDE RECORDS SUMMARY | 2024-03-07 11:19 | XMS_ITS | Encounter Summary ---
Author Organization [facility] [place] [address] Care Team Providers Care Cabin Outfitter Name Role Phone Christine Fuentes Primary Care Provider +1- [phone] Encounter Details Date Type Department Care Team (Late st Contact Info) Description 04/29/2018 Telephone [place] [address] Delon Tyson MD Social History Tobacco Use [...] concerns. Robert Tyson Vascular Surgery, PGY3 Pager #[phone] documented in this encounter Plan of Treatment Not on file documented as of this encounter Visit Diagnoses Not on filedocumented in this encounter Care Teams Cabin Outfitter Relationship Specialty Start Date End Date Christine Fuentes PA [address] [place] [address] PCP - General Family Medicine 01/24/17 10/08/19 documented as of this encounter
--- OUTSIDE RECORDS SUMMARY | 2024-03-07 11:19 | XMS_ITS | Encounter Summary ---
[place] [address] Care Team Providers Care Infantry Senior Sergeant Name Role Phone Christine Fuentes Primary Care Provider +1- [phone] Encounter Details Date Type Department Care Team (Late st Contact Info) Description 08/09/2018 11:00 [place] [address] January Davis Social History Tobacco Use Types [...] 110-L-C/D- white We ordered her 3 more, [place], and Star flower. She paid for all 4 of them today with CC $145.56 F/up: 08/28/18 to mixing picker tender the 3 we ordered today. documented in this encounter Plan of Treatment Not on file documented as of this encounter Visit Diagnoses Not on filedocumented in this encounter Care Teams Infantry Senior Sergeant Relationship Specialty Start Date End Date Christine Fuentes PA [address] [place] [address] PCP - General Family Medicine 01/24/17 10/08/19 documented as of this encounter
--- OUTSIDE RECORDS SUMMARY | 2024-03-07 11:19 | XMS_ITS | Encounter Summary ---
Author Organization [facility] [place] [address] Care Team Providers Care Quill Cleaner Name Role Phone HarishChristine russell Primary Care Provider +1- [phone] Encounter Details Date Type Department Care Team (Late st Contact Info) Description 03/11/2018 Telephone Pediatric [place] [address] Concetta Mullen MD Social History Tobacco Use [...] on filedocumented in this encounter Care Teams Quill Cleaner Relationship Specialty Start Date End Date Christine Fuentes PA [address] [place] [address] PCP - General Family Medicine 01/24/17 10/08/19 documented as of this encounter
--- OUTSIDE RECORDS SUMMARY | 2024-03-07 11:19 | XMS_ITS | Encounter Summary ---
[place] [address] Care Team Providers Care Telepathist Name Role Phone Christine Fuentes Primary Care Provider +1- [phone] Encounter Details Date Type Department Care Team (Late st Contact Info) Description 09/11/2018 [place] [address] January Davis Social History Tobacco Use Types [...] white ?? We ordered her 3 more, [place],Sil[place], and Star flower. ?? She paid for all 4 of them today with CC $145.56 ?? F/up: 08/28/18 to rock picker the 3 we ordered today. ??[place], and Star flower were mailed to pt and she confirmed she received them. documented in this encounter Plan of Treatment Not on file documented as of this encounter Visit Diagnoses Not on filedocumented in this encounter Care Teams Telepathist Relationship Specialty Start Date End Date Christine Fuentes PA [address] [place] [address] PCP - General Family Medicine 01/24/17 10/08/19 documented as of this encounter
--- OUTSIDE RECORDS SUMMARY | 2024-03-07 11:19 | XMS_ITS | Encounter Summary ---
[place] [address] Care Team Providers Care Administrative Appeals Tribunal Member Name Role Phone Christine Fuentes Primary Care Provider +1- [phone] Encounter Details Date Type Department Care Team (Late st Contact Info) Description 05/10/2018 Telephone [place] [address] Crhistina Fay, RN Social History Tobacco Use Types [...] 1955 CALLER: Pt to the General Surgery [facility] Learning Needs Assessment Reviewed: Yes SUBJECTIVE - I had a double mastectomy and I need a root canal is that okay? PERTINENT PAST MEDICAL HISTORY: PT is s/p Patient Name: Cecilia Marx : [id number] MR#: [id number] ?? Case Date: 03/15/2018 ?? Surgeon: Surgeon(s) and Role: * Marla Brice MD - Primary * Sera Weller MD - Resident-Head Greenskeeper * Vu Angela MD - Resident-Surgeon Tonny [...] on filedocumented in this encounter Care Teams Administrative Appeals Tribunal Member Relationship Specialty Start Date End Date Christine Fuentes PA [address] [place] [address] PCP - General Family Medicine 01/24/17 10/08/19 documented as of this encounter
--- OUTSIDE RECORDS SUMMARY | 2024-03-07 11:19 | XMS_ITS | Encounter Summary ---
[place] [address] Care Team Providers Care Jewel Hole Finish Opener Name Role Phone Christine Fuentes Primary Care Provider +1- [phone] Encounter Details Date Type Department Care Team (Late st Contact Info) Description 02/22/2018 Telephone [place] [address] Elaine Song Social History Tobacco Use Types [...] on filedocumented in this encounter Care Teams Jewel Hole Finish Opener Relationship Specialty Start Date End Date Christine Fuentes PA [address] [place] [address] PCP - General Family Medicine 01/24/17 10/08/19 documented as of this encounter
--- OUTSIDE RECORDS SUMMARY | 2024-03-07 11:19 | XMS_ITS | Encounter Summary ---
[place] [address] Care Team Providers Care Bumper Machine Operator Name Role Phone Christine Fuentes Primary Care Provider +1- [phone] Encounter Details Date Type Department Care Team (Late st Contact Info) Description 08/09/2018 9:30 AM EDT Office [place] [address] Rhoda Brumfield, APPLE PRESS OPERATOR History of breast cancer; Seroma of breast [...] this encounter Progress Notes * Rhoda Brumfield, APPLE PRESS OPERATOR - 08/09/2018 9:30 AM EDT Cecilia returns [...] grade 0 of 4 LNs positive cells,, ER+/MI+ pTNM: ---(m)Tis N0 ([facility]) RIght breast DCIS s/p partial mastectomy and RT in 2009 ([facility]) Left breast, mastectomy: - Focal atypical lobular [...] breast documented in this encounter Care Teams Bumper Machine Operator Relationship Specialty Start Date End Date Christine Fuentes PA [address] [place] [address] PCP - General Family Medicine 01/24/17 10/08/19 documented as of this encounter
--- OUTSIDE RECORDS SUMMARY | 2024-03-07 11:19 | XMS_ITS | Encounter Summary ---
Author Organization [facility] Address [facility] [place] [address] Care Team Providers Care Transition Of Care Specialist Name Role Phone Christine Fuentes Primary Care Provider +1- [phone] Reason for Visit * Reason Comments GI Problem * Consultation (Routine) - Specialty Diagnoses / Procedures Referred By Cherie abdul Referred To Contact Gastroenterology Diagnoses abdominal pain, fatty liver Procedures consult Christine Fuentes PA [address] [place] [address] Concetta Adan MD [facility] [place] [address] Referral ID Status Reason Start Date Expiration Date V isits Requested Visits Authorized [id number] 07/26/2018 07/26/2019 1 1 Encounter Details Date Type Department Care Team (Late st Contact Info) Description 08/28/2018 8:30 AM EDT Office Visit [place] [address] Bautista Mcgrath MD [facility] [place] [address] Fatty liver; Irritable bowel syndrome, unspecified type [...] Bautista Mcgrath - 08/28/2018 8:30 AM EDT [facility] Division of Gastroenterology and Hepatology Outpatient [...] evaluated once by a GI doctor in [place] where she w as diagnosed with a [...] Stereotactic Biopsy Right 01/30/2018 Babs Duvall MD [facility] RAD MAMMOGRAPHY ??? PRO BX/REMV, LYMPH NODE, DEEP AXILL Right 03/15/2018 BIOPSY OR EXCISION OF LYMPH NODE(S), OPEN, DEEP AXILLARY NODE(S) (WRVU 6.43) performed by Marla Brice MD at [facility] MAIN OR ??? PRO EXCISE BREAST LES W XRAY MARKER Left 03/30/2017 EXCISION LESION, BREAST W/ PREOP.MARKER (NEEDLE LOC.) (WRVU 6.69) performed by Marla Brice MD at [facility] OSC ??? PRO INTRAOP SENTINEL LYMPH ID W/DYE INJECTION Right 03/15/2018 INTRAOPERATIVE ID (MAPPING) SENTINEL LYMPH NODE,INCLUDES INJECTION (WRVU 2.5) performed by Marla Brice MD at [facility] MAIN OR ??? PRO MASTECTOMY, SIMPLE, COMPLETE Bilateral 03/15/2018 MASTECTOMY, SIMPLE, COMPLETE-CARITO (WRVU 15.85) performed by Marla Brice MD at [facility] MAIN OR -- section x 2 [...] Mcgrath MD Fellow in Gastroenterology and Hepatology [place] [id number] P: [phone] F: [phone] CC NNAMDI Nicole [address] [place] [address] * Nella Acevedo MD - 08/28/2018 8:30 [...] Acevedo MD Section of Gastroenterology & Hepatology [address] [place], [place] [id number] documented in this encounter Procedure Notes * Nella Acevedo MD - 08/28/2018 8:30 AM EDTAssociated Order(s): FIBROSCAN Procedure(s): FIBROSCAN Pre-Procedure Diagnose(s): Fatty liver [facility] Liver Fibrosis Assessment Report Indication: Fatty liver on imaging Performed by: Nella Acevedo MD Procedure: Vibration Controlled Transient Elastography (VCTE) or Fibroscan Tracy Protocol: Patient's identity, procedure and site were [...] Routine 08/28/2018 10:30 AM EDT Fatty liver [id number] Routine 08/28/2018 8:30 AM EDT Fatty liver documented in this encounter Results * Iron and TIBC (08/28/2018 10:30 AM EDT) Iron 118 30 - 150 mcg/dL [facility] TIBC 342 250 - 450 mcg/dL [facility] Iron Saturation 35 20 - 50 % [facility] Blood specimen (specimen) Venous Draw / Unknown 08/28/2018 10:30 AM EDT 08/28/2018 1:12 PM EDT Narrative Resulting Agency Comment Spec In Lab Bautista Mcgrath MD CHEMISTRY ORDERAB LES [facility] [place] [address] * Differential, Automated (08/28/2018 10:30 AM EDT) Neutrophil % 44.8 % [facility] Neutrophil Absolute 2.50 1.70 - 6.10 x10(3)/[facility] Lymph % 43.9 % [facility] Lymphocytes Abs 2.4 0.9 - 3.2 x10(3)/[facility] Monocyte % 7.7 % [facility] Monocyte Abs 0.4 0.3 - 0.9 x10(3)/[facility] Eos % 2.3 % [facility] Eosinophils Abs 0.1 0.0 - 0.4 x10(3)/[facility] Basophil % 0.9 % [facility] Baso Absolute 0.0 0.0 - 0.1 x10(3)/[facility] Immature Gran % 0.40 % [facility] Comment: Immature granulocytes(IG's)percentage and absolute count will include metamyelocytes, myelocytes, and promyelocytes. Blood smears from CBCs yielding IG's will be scanned manually for concordance. If this scan disagrees with the automated IG or if promyelocytes are noted, a manual differential will be performed. Immature Gran Absolute 0.02 0.00 - 0.04 x10(3)/[facility] Blood specimen (specimen) 08/28/2018 10:30 AM EDT 08/28/2018 10:39 AM EDT Narrative Resulting Agency Comment Spec In Lab Bautista Mcgrath MD HEMATOLOGY ORDERA BLES [facility] [place] [place] [address] * (ABNORMAL) Hemogram (08/28/2018 10:30 AM EDT) White Blood Cell 5.6 4.0 - 9.5 x10(3)/[facility] Red Blood Cell 4.68 4.00 - 5.21 x10(6)/[facility] Hemoglobin 13.7 11.7 - 15.5 gm/dL [facility] Hematocrit 42.8 35.7 - 45.8 % [facility] Mean Cell Volume 91.5 82.6 - 94.4 fL [facility] Mean Cell Hemoglobin 29.3 27.1 - 32.0 pg [facility] Mean Cell Hemoglobin Concentration 32.0 31.7 - 35.0 gm/dL [facility] Platelet 229 145 - 357 x10(3)/mc L [facility] RDW Standard Deviation 50.4(H) 37.0 - 46.0 fL [facility] RDW coefficient of variation 14.9(H) 11.5 - 14.1 % [facility] Mean Platelet Volume 10.5 7.6 - 12.9 fL [facility] NRBC% auto 0.0 % [facility] NRBC Absolute 0.000 0.000 - 0.000 x10(3)/mc L [facility] Blood specimen (specimen) 08/28/2018 10:30 AM EDT 08/28/2018 10:39 AM EDT Narrative Resulting Agency Comment Spec In Lab Bautista Mcgrath MD HEMATOLOGY ORDERA BLES [facility] [place] [address] * Prothrombin Time (08/28/2018 10:30 AM EDT) Prothrombin Time 11.1 9.4 - 12.5 sec [facility] International Normalization Ratio 1.0 [facility] Comment: An INR <2.0 indicates adequate [...] Lab Nella Acevedo MD HEMATOLOGY ORDERABLE S [facility] [place] [address] * Lipid Panel (08/28/2018 10:30 AM EDT) Cholesterol, Total 220 mg/dL [facility] Comment: Lower Risk: <200 mg/dL Average Risk: 200-239 mg/dL Higher Risk: >ku=969 mg/dL Triglyceride 172 mg/dL [facility] Comment: Average Risk/Lower Risk: <150 mg/dL Borderline High Risk: 150-199 mg/dL High Risk: 200-499 mg/dL Very High Risk: >sg=049 mg/dL HDL Cholesterol 62 mg/dL [facility] Comment: Males: ?? Higher Risk: <40 mg/dL Females: ?? HIgher Risk: <50 mg/dL LDL Cholesterol 124 mg/dL [facility] Comment: Lowest Risk: <100 mg/dL Lower Risk: 100-129 mg/dL Borderline High Risk: 130-159 mg/dL High Risk: 160-189 mg/dL Very High Risk: >xu=176 mg/dL Cholesterol/HDL Ratio 3.5 ratio [facility] Lipid Interpretation See Note [facility] Comment: Lipid management should be guided by a patient? s ASCVD risk, goals and preferences. ACC/AHA Guidelines recommend high intensity statin if clinical ASCVD or LDL greater than or equal to 190 mg/dL. http://tinyurl.com/TIE-VSK-Kxfrgrmru Adults aged 40-75 with LDL 70-189 mg/dL should have their 10 year ASCVD risk estimated with the ACC/AHA ASCVD risk construction cost estimator http://tools.acc.org/DJZVZ-Uvry-Zhwrayyxh/ Statin should be discussed if risk greater [...] In Lab Nella Acevedo MD CHEMISTRY ORDERABLES [facility] [place] [address] * Hemoglobin A1c (08/28/2018 10:30 AM EDT) Hemoglobin A1c 5.4 4.3 - 5.6 % [facility] Comment: Reference Range: 4.3 [...] Mellitus, Diabetes Care 2013; 36: Suppl. 1, R77-33 Estimated Average Glucose 109 mg/dL [facility] Comment: eAG equivalents for [...] into estimated average glucose values. ??Diabetes Care 2008:31(8):6791-2512. Blood specimen (specimen) 08/28/2018 10:30 AM EDT 08/28/2018 10:39 AM EDT Narrative Resulting Agency Comment Spec In Lab Nella Acevedo MD CHEMISTRY ORDERABLES [facility] [place] [address] * (ABNORMAL) Basic Metabolic Panel (non-fasting) (08/28/2018 10:30 AM EDT) Glucose 102 65 - 199 mg/dL [facility] Comment:Diabetes: >=200 mg/d L plus symptoms Blood Urea Nitrogen 21(H) 8 - 18 mg/dL [facility] Creatinine 0.93 0.70 - 1.20 mg/dL [facility] Sodium 142 135 - 145 mmol/L [facility] Potassium 4.5 3.5 - 5.0 mmol/L [facility] Comment: Please note: ??Patients with WBC >100,000 may have falsely elevated Potassium levels. ??For accurate Potassium quantification in these patients send serum separator tube (gold top) for subsequent determinations. ??Contact the Clinical Chemistry Laboratory if there are any questions. Chloride 107 98 - 107 mmol/L [facility] Carbon Dioxide 22 22 - 31 mmol/L [facility] Anion Gap 13 5 - 15 mmol/L [facility] Calcium 9.3 8.5 - 10.5 mg/dL [facility] Est Glomerular Filtration Rate 66 >=60 mL/min/1. 73 m?? [facility] Comment: The eGFR was calculated using the CKD-EPI equation. As with all creatinine based estimates of kidney function, eGFR values calculated with the CKD-EPI equation are not accurate in patients with acute kidney failure, extremes of body mass or the acutely ill. http://Thumb/[facility]ATONGAnkf eGFR 76 >=60 mL/min/1. 73 m?? [facility] Comment: The eGFR was calculated using the CKD-EPI equation. As with all creatinine based estimates of kidney function, eGFR values calculated with the CKD-EPI equation are not accurate in patients with acute kidney failure, extremes of body mass or the acutely ill. http://Thumb/[facility] Blood specimen (specimen) 08/28/2018 10:30 AM EDT 08/28/2018 10:39 AM EDT Narrative Resulting Agency Comment Spec In Lab Nella Acevedo MD CHEMISTRY ORDERABLES Performing Organization Address [facility] Co de Phone Number [facility] [place] [address] * (ABNORMAL) Hepatic Function Panel (08/28/2018 10:30 AM EDT) Protein, Total 7.7 6.1 - 8.0 gm/dL [facility] Albumin 4.3 3.2 - 5.2 gm/dL [facility] Aspartate Aminotransferase 31(H) 0 - 30 unit/L [facility] Alanine Aminotransferase 33(H) 0 - 30 unit/L [facility] Alkaline Phosphatase 74 40 - 104 unit/L [facility] Bilirubin, Total 0.4 0.2 - 1.3 mg/dL [facility] Bilirubin, Direct 0.1 0.0 - 0.3 mg/dL [facility] Blood specimen (specimen) 08/28/2018 10:30 AM EDT 08/28/2018 10:39 AM EDT Narrative Resulting Agency Comment Spec In Lab Nella Acevedo MD CHEMISTRY ORDERABLES Performing Organization Address City/[facility] Co de Phone Number [facility] [place] [address] * [id number] (08/28/2018 8:30 AM EDT) Bautista Pendleton - 08/28/2018 8:30 AM EDT Nella Acevedo MD ? 08/28/2018 ??1:08 PM [facility] Liver Fibrosis Assessment Report Indication: ??Fatty liver on imaging Performed by: ??Nella Acevedo MD Procedure: Vibration Controlled Transient Elastography (VCTE) or Fibroscan Tracy Protocol: Patient's identity, procedure and site were [...] type documented in this encounter Care Teams Transition Of Care Specialist Relationship Specialty Start Date End Date Christine Fuentes PA [address] [place] [address] PCP - General Family Medicine 01/24/17 10/08/19 documented as of this encounter
--- OUTSIDE RECORDS SUMMARY | 2024-03-07 11:19 | XMS_ITS | Encounter Summary ---
Author Organization [facility] [place] [address] Care Team Providers Care Algology Teacher Name Role Phone Christine Fuentes Primary Care Provider +1- [phone] Encounter Details Date Type Department Care Team (Late st Contact Info) Description 08/29/2018 Orders [place] [address] Bautista Mishra MD [facility] [place] [address] Fatty liver Social History Tobacco Use Types [...] disease documented in this encounter Care Teams Algology Teacher Relationship Specialty Start Date End Date Christine Fuentes PA [address] [place] [address] PCP - General Family Medicine 01/24/17 10/08/19 documented as of this encounter
--- OUTSIDE RECORDS SUMMARY | 2024-03-07 11:19 | XMS_ITS | Encounter Summary ---
[place] [address] Care Team Providers Care Tetryl Nitrator Operator Name Role Phone Christine Fuentes Primary Care Provider +1- [phone] Reason for Referral * Diagnostic Test (Routine) - Closed Specialty Diagnoses / Procedures Referred By Cherie abdul Referred To Contact Radiology Diagnoses Ductal carcinoma in situ (DCIS) of right breast Procedures NM [place] Node Injection Breast wo Imaging Marla Brice MD [facility] [place] [address] [place] [address] Referral ID Status Reason Start Date Expiration Date V isits Requested Visits Authorized [id number] Closed Specialty Service Requested 02/23/2018 02/23/2019 1 1 Encounter Details Date Type Department Care Team (Late st Contact Info) Description 02/23/2018 Orders Only [place] [address] Marla Brice MD Ductal carcinoma [...] as of this encounter Results * NM Wingate Node Injection Breast wo Imaging (03/15/2018 1:11 PM EST) Anatomical Region Laterality Modality Nuclear Medicine Impressions 03/15/2018 1:50 PM EST Wingate node injections performed without complication. Thank you for letting us participate in the care of this patient. For questions regarding this report, please contact the number below. ? Electronically signed by: Aleksandar Ibanez [facility] ([phone]), at 03/15/2018 1:50 PM Narrative 03/15/2018 1:50 [...] patient left the department ingood condition. IMPRESSION Wingate node injections performed without complication. Thank you for letting us participate in the care of this patient. Forquestions regarding this report, please contact the number below. 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
--- OUTSIDE RECORDS SUMMARY | 2024-03-07 11:19 | XMS_ITS | Encounter Summary ---
[place] [address] Care Team Providers Care Marketing Account Manager Name Role Phone Christine Fuentes Primary Care Provider +1- [phone] Encounter Details Date Type Department Care Team (Late st Contact Info) Description 08/29/2018 Telephone [place] [address] Kiersten Hodges RN Social History Tobacco Use [...] 09/03/2018 10:23 AM EDT Call placed to [facility] has lab results not scanned in. Per Danyell, patient has not come in for lab. Call placed to Diane. FLORES reminding she's due for labs. Asked her to call back or send [employer] message * Telephone Encounter - Kiersten Dean RN - 08/29/2018 3:20 PM EDT Bautista Mcgrath MD sent to Kiersten Dean, DAVID ?? Debbie, I am not sure if you are the right person to send this to. I saw this patient in clinic this week but want additional labs. She lives close to [facility] and would be reasonable to have them done there. I ordered the labs as external and called to patient to let her know. Do we fax the orders to [facility]? Isthis something that I should send to the secretaries? Thanks, James Lab orders faxed to [facility] at [phone]. Reminder set to f/u on results. documented in this encounter Plan of Treatment Not on file documented as of this encounter Visit Diagnoses Not on filedocumented in this encounter Care Teams Marketing Account Manager Relationship Specialty Start Date End Date Christine Fuentes PA [address] [place] [address] PCP - General Family Medicine 01/24/17 10/08/19 documented as of this encounter
--- OUTSIDE RECORDS SUMMARY | 2024-03-07 11:19 | XMS_ITS | Encounter Summary ---
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 [place] [address] [facility] [address]c [address] [place] [address] Referral ID Status Reason Start Date Expiration Date V isits Requested Visits Authorized [id number] Closed Consult, Test & Treat 02/02/2018 02/02/2019 1 1 Encounter Details Date Type Department Care Team (Late st Contact Info) Description 02/02/2018 Telephone [place] [address] Kiersten Wilson RN Social History [...] a 62 y.o. female with newly diagnosed ER/NM+ right breast DCIS (right breast stereotactic guided biopsy 01/30/2018 at [facility] PERSONAL HISTORY of BREAST CANCER Cecilia Marx has a history of right breast DCIS treated with partial mastectomy ([address] Forrester) and radiotherapy (2010 at [facility]). Cecilia has a history of left breast wide local excision 03/30/[address] Morales (for ADH, ALH, benignpapillary lesion, etc.). She met with Dr. Stack in [facility] after this to discuss chemoprevention which she [...] is in agreement. Referral for urgent apt.with [facility] counselor sent. She prefers to be seen in [facility] over [place], but will take the earliest appt. She [...] laterality documented in this encounter Care Teams Coal Carrier Relationship Specialty Start Date End Date Christine Fuentes PA [address] [place] [address] PCP - General Family Medicine 01/24/17 10/08/19 documented as of this encounter
--- OUTSIDE RECORDS SUMMARY | 2024-03-07 11:19 | XMS_ITS | Encounter Summary ---
[place] [address] Care Team Providers Care Press Clipper Name Role Phone Christine Fuentes Primary Care Provider +1- [phone] Reason for Visit * Auth/Cert Specialty Diagnoses [...] Expiration Date Visits Re quested Visits Authorized [id number] 1 1 Encounter Details Date Type Department Care Team (Late st Contact Info) Description 03/15/2018 2:41 PM EST - 03/15/2018 5:54 PM EST [place] [address] Marla Zepeda MD MASTECTOMY, SIMPLE, COMPLETE-CARITO (WRVU [...] s/p partial mastectomy and RT in 2009 ([facility]). She was followed by surgeon for [...] bony pain or tenderness.stopped drinking wine around Petros time due to depression. ?? Reports a left breast infection about 2-3 weeks after biopsy. Had redness, pain and inverted nipple. She was started on augmentin for 21 days and symptoms resolved. ?? Here today with her . Operations/Major Procedures: Operations: 03/15/2018 Surgeon(s) and Role: * Marla Zepeda MD - Primary * Sera Weller MD - Resident-Hospital Pharmacist * Vu Angela MD - Resident-Surgeon Tonny [...] Discharge: Final Surgical Pathology pending. Studies: NM Augusta Node Injection Breast wo Imaging (03/16): IMPRESSION Augusta node injections performed without complication. Discharge Exam: [...] to: Home VNA: Yes Name of facility: [facility]. Contact information: PHONE: [phone] Discharge Conditions/Prognosis: Stable Discharge Medications: The following [...] 1:30 PM Marla Zepeda MD [facility] 03/30/2018 2:00 PM Avi Talbot MD Leb Hem Onc [facility] 03/30/2018 3:15 PM Magdalena Madrigal, PT PT Rehab [facility] Outpatient Services/Studies: Referral to Home Health - at DISCHARGE Order Comments: DOCUMENTATION FOR VNA SERVICES (INCLUDING THOSE PATIENTS WITH MEDICARE COVERAGE REQUIRING HOME VNA SERVICES AND/OR HOSPICE SERVICES) PATIENT'S LOCATION: Cecilia Marx [address] [facility] [address] (home) [phone] (cell) Hris Coordinator's Name: Self In discussion with the attending physician, it is certified that this patient is under their care and that they, or a Nurse Practitioner,Clinical Nurse specialist or Physician Doughnut Icer who is working directly with them, had [...] program if appropriate. HOME HEALTH CARE AGENCY: [facility]. PHONE: [phone] FAX: [phone] Start of care: 24-48 hrs after discharge Please note that any additional orders needs or changes will need to be obtained from this patient's PCP: NNAMDI Nicole [address] / [place] [address] All A agencies which cover the area of patient's residence have been reviewed, either verbally stacia writing, and patient/family have chosen the home health care agency noted Question Response Notes Agency name and contact information [facility] Patient location post discharge Home What [...] than 30cc perday for 2 consecutive days. [phone] You may shower with the drains in [...] Dr. Zepeda in 2-3 weeks Please call [phone] to confirm date and time of your appointment if you do not hear from us inthe week. Call Doctor for: Worsening redness or drainage from your incision lasting longer than 5 days following surgery Any foul-smelling drainage from the incision Fevers greater than 101 degrees F Persistent nausea or vomiting (this may be related to opioid pain medications) Phone number for questions: [phone] before 5 PM weekdays [phone] after 5 PM and on weekends/holidays Future Appointments Date Time Provider Department Center 03/30/2018 1:30 PM Marla Zepeda MD Leb Surg [facility] 03/30/2018 2:00 PM Avi Talbot MD Leb Hem Onc [facility] 03/30/2018 3:15 PM Magdalena Madrigal, PT PT Rehab [facility] General Instructions None Acute Opioid [...] CC: NNAMDI Nicole Signed: Aleah E Yaritza, CARE NURSE RN [facility] Surgical Oncology Service Team Pager #[phone] [...] than 30cc perday for 2 consecutive days. [phone] You may shower with the drains in [...] Dr. Zepeda in 2-3 weeks Please call [phone] to confirm date and time of your appointment if you do not hear from us inthe week. Call Doctor for: Worsening redness or drainage from your incision lasting longer than 5 days following surgery Any foul-smelling drainage from the incision Fevers greater than 101 degrees F Persistent nausea or vomiting (this may be related to opioid pain medications) Phone number for questions: [phone] before 5 PM weekdays [phone] after 5 PM and on weekends/holidays Future Appointments Date Time Provider Department Center 03/30/2018 1:30 PM Marla Zepeda MD Leb Surg [facility] 03/30/2018 2:00 PM Avi Talbot MD Leb Hem Onc [facility] 03/30/2018 3:15 PM Magdalena Madrigal, PT PT Rehab [facility] * Attachments The following attachments cannot be sent through Care Everywhere. 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 A letter describing our affiliations was reviewed with them and they were educated about their right to choose where referrals are placed. Patient requests referral to [facility]. PHONE: [phone] FAX: [phone]. Expected date of discharge: 03/16/18. Referral routed to the [employer] for matching with agency/vendor and to provide [...] supportive. He [facility] and will keep all [...] taken out of the room to the assistant front end manager by Rachana Leary RN at 2009, verified with Noemi and lab informed at 2012. #2 right axillary node #3 left breast tissue out at 2057 and sent to the assistant front end manager at 2113 on 03/15/18, verified by Luis Womack and noemi that there were two specimens in the bag , right sentinal node and left breast tissue. Contact the patient to update him on the procedure at 2025 on 03/15/18. documented in this encounter Miscellaneous Notes * Op Note - Marla Zepeda MD - 03/16/2018 11:45 AM EST [facility] Operative Note Patient Name: Cecilia Marx : [id number] MR#: [id number] Case Date: 03/15/2018 Surgeon: Surgeon(s) and Role: * Marla Zepeda MD - Primary * Sera Weller MD - Resident-Hospital Pharmacist * Vu Angela MD - Resident-Surgeon Tonny [...] Operative Note Patient Name: Cecilia Marx : [id number] MR#: [id number] Case Date: 03/15/2018 Surgeon: Surgeon(s) and Role: * Marla Zepeda MD - Primary * Sera Weller MD - Resident-Hospital Pharmacist * Vu Angela MD - Resident-Surgeon Tonny [...] PM EST 03/15/2018 9:38 PM EST Narrative [facility] - 03/15/2018 9:38 PM EST Specimen requisition ordered. ??Separate Pathology report to follow Resulting Agency Comment Spec In Lab Marla Blue MD PATHOLOGY/CYTOLO GY ORDERABLES Performing Organization Address City/[facility]/ZIP Co de Phone Number [facility] [place] [place] [address] * Specimen to Pathology (03/15/2018 9:00 PM EST) AP Specimen 03/15/2018 9:00 PM EST 03/15/2018 9:37 PM EST Narrative [facility] - 03/15/2018 9:38 PM EST Specimen requisition ordered. ??Separate Pathology report to follow Resulting Agency Comment Spec In Lab Marla Blue MD PATHOLOGY/CYTOLO GY ORDERABLES Performing Organization Address [facility]/ZIP Co de Phone Number [facility] [place] [address] * Specimen to Pathology (03/15/2018 8:06 PM EST) AP Specimen 03/15/2018 8:06 PM EST 03/15/2018 8:06 PM EST Narrative [facility] - 03/15/2018 8:06 PM EST Specimen requisition ordered. ??Separate Pathology report to follow Marla Blue MD PATHOLOGY/CYTOLO GY ORDERABLES Performing Organization Address [facility]/ZIP Co de Phone Number [facility] [place] [address] * Surgical Pathology Report (03/15/2018 8:04 PM EST) Final Diagnosis [id number] ? Location: [facility]; A The signing pathologist has (i) [...] ?? Uninvolved by tumor cells ?Number of Augusta Nodes Examined: ?4 Pathologic Stage Classification (pTNM, AJCC 8th Edition) ? Primary Tumor (pT): ?? pTis (DCIS) ? Regional Lymph Nodes (pN) ?Modifier: ??(sn): Augusta node(s) evaluated. ?Category (pN): ?? pN0 Tumor Block(s): ?? A11 CAP eCC February 2017 Agile Release ER and MI studies (performed on prior biopsy, [id number]): ER: Positive (>90%, strong) MI: Positive (50%, moderate to strong) Electronically signed by: ??Antonio BANGURA, Delon Lewis Verified: ??03/22/2018 ?Pathologist Performed at: ??-[facility] Dept. of Pathology, [place], [place] . DISCUSSION An admixture of atypical [...] is blue, deep is black. Sections/Processi ng: Tank Furnace Operator sections in 22 cassettes as follows: [...] 2.5 cm. . SPECIMEN PROCESSING Sections/Processi ng: ??Tank Furnace Operator sections in 6 cassettes as follows: [...] noted. Ink Designation: Deep/black; superficial/blue. Sections/Processi ng: Tank Furnace Operator sections in 12 cassettes as follows: ? C1: ? Nipple ? C2: ? Base of nipple ? C3-C4: ?Tank Furnace Operator upper outer quadrant ? C5-C6: ?Tank Furnace Operator lower inner quadrant ? C7-C8: ?Tank Furnace Operator central ? C9-C10: ?? Tank Furnace Operator upper inner quadrant ? C11-C12: ??Tank Furnace Operator lower inner quadrant Ischemic Time: 0.8 hours ??pps 03/22/2018 4:03 PM EST [facility] BREAST STRUCTURE / Unknown 03/15/2018 8:04 PM EST 03/15/2018 8:04 PM EST SENTINEL LYMPH NODE / Unknown 03/15/2018 8:04 PM EST 03/15/2018 8:04 PM EST BREAST STRUCTURE / Unknown 03/15/2018 8:04 PM EST 03/15/2018 8:04 PM EST Marla Blue MD PATHOLOGY/CYTOLO GY ORDERABLES [facility] [place] [address] documented in this encounter Visit Diagnoses Not [...] Starting on Arpita 03/15/18 at 1500, Until Aprita 03/15/18 at 2220, Day of Surgery (Day [...] Unit) documented in this encounter Care Teams Press Clipper Relationship Specialty Start Date End Date Christine Fuentes PA [address] [place] [address] PCP - General Family Medicine 01/24/17 10/08/19 documented as of this encounter
--- OUTSIDE RECORDS SUMMARY | 2024-03-07 11:19 | XMS_ITS | Encounter Summary ---
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, unspecified laterality Marla Brice MD [facility] [place] [address] [facility] [address] [place] [address] Referral ID Status Reason Start Date Expiration Date V isits Requested Visits Authorized [id number] Closed Consult, Test & Treat 02/02/2018 02/02/2019 1 1 Encounter Details Date Type Department Care Team (Late st Contact Info) Description 02/21/2018 1:00 PM EST Office Visit Hematology [place] [address] Domenica Lama, LGC Ductal carcinoma [...] this encounter Progress Notes * Domenica Lama [facility] - 02/21/2018 1:00 PM EST Ms. Marx was seen by Lazara Lama MS, [facility] in consultation at the request of Dr. [...] (grandmother's sister) 45 Maternal ethnic background is Taiwanese. Paternal ethnic background is unknown. Genetic risk [...] sample was drawn today and sent to [facility]. ?? The results of the STAT panel [...] (02/21/2018 2:11 PM EST) Research Venipuncture Complete [facility] Blood specimen (specimen) 02/21/2018 2:11 PM EST 02/21/2018 2:18 PM EST Narrative Resulting Agency Comment Spec In Lab Avi Talbot MD CHEMISTRY ORDERABLES Performing Organization Address City/State/[facility] [[email or web address]] Co de Phone Number [facility] [place] [address] documented in this encounter Visit Diagnoses Diagnosis Ductal carcinoma in situ (DCIS) of breast, unspecified laterality Family history of malignant neoplasm of breast documented in this encounter Care Teams Wrist Liner Relationship Specialty Start Date End Date Christine Fuentes PA [address] [place] [address] PCP - General Family Medicine 01/24/17 10/08/19 documented as of this encounter
--- OUTSIDE RECORDS SUMMARY | 2024-03-07 11:20 | XMS_ITS | Encounter Summary ---
Author Organization [facility] [place] [address] Care Team Providers Care Chrome Cleaner Name Role Phone Spike Sierra MD Primary Care Provider Encounter Details Date Type Department Care Team (Latest Contact Info) Description 07/01/2015 - 07/01/2015 11:59 PM EDT Hospital Encounter Radiology Library at [facility] [place] [address] Spike Nicolas MD Discharge Disposition: Home Social [...] City/State/[facility] Co de Phone Number [place], [place] documented in this encounter Visit Diagnoses Not on filedocumented in this encounter Care Teams Chrome Cleaner Relationship Specialty Start Date End Date Spike Sierra MD [address] [place] [address] PCP - General 01/12/10 01/23/17 documented as of this encounter
--- OUTSIDE RECORDS SUMMARY | 2024-03-07 11:20 | XMS_ITS | Encounter Summary ---
Author Organization [facility] [place] [address] Care Team Providers Care Carburetor Mechanic Name Role Phone Spike Sierra MD Primary Care Provider [phone] Encounter Details Date Type Department Care Team (Latest Contact Info) Description 01/06/2017 12:05 AM EST - 01/06/2017 11:59 PM [facility] Hospital Encounter Radiology Library at [facility] [place] [address] Spike Nicolas MD Discharge Disposition: Home Social [...] only and is auto-finalizing. Spike Nicolas MD [facility] FILM LIBRARY ORD ERABLES [place], [place] documented in this encounter Visit Diagnoses Not on filedocumented in this encounter Care Teams Carburetor Mechanic Relationship Specialty Start Date End Date Spike Sierra MD [address] [place] [address] PCP - General 01/12/10 01/23/17 documented as of this encounter
--- OUTSIDE RECORDS SUMMARY | 2024-03-07 11:20 | XMS_ITS | Encounter Summary ---
Author Organization [facility] [place] [address] Care Team Providers Care Volleyball Commentator Name Role Phone Spike Sierra MD Primary Care Provider Encounter Details Date Type Department Care Team (Latest Contact Info) Description 12/24/2013 - 12/24/2013 11:59 PM EST Hospital Encounter Radiology Library at [facility] [place] [address] Spike Nicolas MD Screening breast examination Discharge [...] Only Mammo (12/24/2013 12:00 AM EST) Narrative [facility] - 01/11/2017 4:45 PM EST This exam is for storage only and is auto-finalizing. Spike Nicolas MD [facility] FILM LIBRARY ORD ERABLES Performing Organization Address City/State/[facility] Co de Phone Number [place], [place] documented in this encounter Visit Diagnoses Diagnosis Screening breast examination Other screening breast examination documented in this encounter Care Teams Volleyball Commentator Relationship Specialty Start Date End Date Spike Sierra MD [address] [place] [address] PCP - General 01/12/10 01/23/17 documented as of this encounter
--- OUTSIDE RECORDS SUMMARY | 2024-03-07 11:20 | XMS_ITS | Encounter Summary ---
[place] [address] Care Team Providers Care Supervisor Rolling Room Name Role Phone Christine Fuentes Primary Care Provider +1- [phone] Reason for Visit * Auth/Cert Specialty Diagnoses / Procedures Referred By Cherie abdul Referred To Contact Diagnoses LEFT BREAST COMPLEX SCLEROSING LESION Procedures PRO EXCISE BREAST LES W XRAY MARKER EXCISION LESION, BREAST W/ PREOP.MARKER (NEEDLE LOC.) (WRVU 6.69) MODIFIER WITH NEEDLE LOC., LESION #1 Referral ID Status Reason Start Date Expiration Date Visits Re quested Visits Authorized [id number] 1 1 Encounter Details Date Type Department Care Team (Late st Contact Info) Description 03/30/2017 9:24 AM EST - 03/30/2017 3:00 PM EST Hospital Encounter [place] [phone] Savana Zepeda MD Discharge Disposition: Home Social [...] closest emergency room or call the hospital ethylbenzene converter operator at [phone] and ask for physician rn radiation covering for your physician. Questions or problems after 5pm or on a weekend: Call the [facility] ethylbenzene converter operator at and ask for the physician rn radiation covering for your doctor. * Patient Instructions* [...] 04/13/2017 10:45 AM Rhoda Brumfield APRN [facility] Call Doctor for: Worsening redness or drainage from your incision lasting longer than 5 days following surgery Any foul-smelling drainage from the incision Fevers greater than 101 degrees F Persistent nausea or vomiting (this may be related to opioid pain medications) Phone number for questions: [phone] before 5 PM weekdays [phone] after 5 PM and on weekends/holidays documented [...] Zepeda MD - 03/30/2017 1:48 PM EST [facility] Operative Note Patient Name: Cecilia Marx : [id number] MR#: [id number] Case Date: 03/30/2017 Surgeon: Surgeon(s) and Role: [...] Operative Note Patient Name: Cecilia Marx : [id number] MR#: [id number] Case Date: 03/30/2017 Surgeon: Surgeon(s) and Role: * Savana Zepeda MD - Primary * Iirs Macdonald MD Preoperative diagnosis: LEFT BREAST COMPLEX [...] Lab Savana Blue MD PATHOLOGY/CYTOLO GY ORDERABLES [facility] [place] [address] * Surgical Pathology Report (03/30/2017 1:22 PM EST) Final Diagnosis [id number] ? Location: [facility] The signing pathologist has [...] Delon Lewis Verified: ??04/05/2017 ?Pathologist Performed at: ??-[facility] Dept. of Pathology, [place], [place] DISCUSSION Two separate foci of atypical [...] clip is within slice XII. SECTIONS/PROCESSING: (1) sales representatives perpendicular slice I, orange-cranial margin; (2) sales representatives slice VIII; (3) sales representatives slice IX; (4) sales representatives slice X; (5) sales representatives slice XI; (6) sales representatives slice XII, with cylinder clip; (7) slice XIII, with lesion; (8) slice XIV, with lesion; (9) sales representatives perpendicular slice XV. (R9) Ischemic Time: 85 minutes ??chinyere Additional sections: (10) remaining slice VIII; (11) slice III; (12) fibrous tissue central slice V; (13-14) bisected slice VII. (R14) chinyere 04/05/2017 9:19 AM EST [facility] BREAST STRUCTURE / Unknown 03/30/2017 1:22 PM EST 03/30/2017 1:22 PM EST Savana Blue MD PATHOLOGY/CYTOLO GY ORDERABLES [facility] [place] [id number] documented in this encounter Visit Diagnoses Not [...] 5% 100 mL (COMPLETED) 2 g, Intravenous, ADMIN ASST TO O.R., 1 dose, On Arpita 03/30/17 [...] Routine documented in this encounter Care Teams Supervisor Rolling Room Relationship Specialty Start Date End Date Christine Fuentes [place] [address] [place] [address] PCP - General Family Medicine 01/24/17 10/08/19 documented as of this encounter
--- OUTSIDE RECORDS SUMMARY | 2024-03-07 11:20 | XMS_ITS | Encounter Summary ---
Author Organization [facility] Address [facility] [place] [address] Care Team Providers Care Transfer Engineer Name Role Phone Christine Fuentes Primary Care Provider +1- [phone] Encounter Details Date Type Department Care Team (Late st Contact Info) Description 01/30/2018 [place] [address] Evans Almanzar MD [facility] [place] [address] Social History Tobacco Use Types Packs/Day Years [...] filedocumented in this encounter Care Teams Transfer Engineer Relationship Specialty Start Date End Date Christine Fuentes PA [address] [place] [address] PCP - General Family Medicine 01/24/17 10/08/19 documented as of this encounter
--- OUTSIDE RECORDS SUMMARY | 2024-03-07 11:20 | XMS_ITS | Encounter Summary ---
Author Organization [facility] Address [facility] [place] [address] Care Team Providers Care Quantitative Consultant Name Role Phone Spike Sierra MD Primary Care Provider [phone] Encounter Details Date Type Department Care Team (Latest Contact Info) Description 01/06/2017 - 01/06/2017 12:04 AM [facility] Hospital Encounter Radiology Library [place] [address] Spike Nicolas MD Discharge Disposition: Home Social [...] Nicolas MD G FILM LIBRARY ORD ERABLES [place], [place] documented in this encounter Visit Diagnoses Not on filedocumented in this encounter Care Teams Quantitative Consultant Relationship Specialty Start Date End Date Spike Sierra MD [address] [place] [address] PCP - General 01/12/10 01/23/17 documented as of this encounter
--- OUTSIDE RECORDS SUMMARY | 2024-03-07 11:20 | XMS_ITS | Encounter Summary ---
Author Organization [facility] [place] [address] Care Team Providers Care Top Inventory Control Executive Name Role Phone Spike Sierra MD Primary Care Provider [phone] Reason for Visit * Reason Comments Radiation Follow-up Encounter Details Date Type Department Care Team (Late st Contact Info) Description 06/13/2011 3:30 PM EDT Follow-Up Radiation Oncology at [address] [phone] Ema Fair MD [facility] [place] [address] Breast CA (Primary Dx) Discharge Disposition: Home [...] site documented in this encounter Care Teams Top Inventory Control Executive Relationship Specialty Start Date End Date Spike Sierra MD [address] [place] [address] PCP - General 01/12/10 01/23/17 documented as of this encounter
--- OUTSIDE RECORDS SUMMARY | 2024-03-07 11:20 | XMS_ITS | Encounter Summary ---
Author Organization [facility] [place] [address] Care Team Providers Care Cash Crop Farmer Name Role Phone Spike Sierra MD Primary Care Provider [phone] Encounter Details Date Type Department Care Team (Latest Contact Info) Description 12/04/2012 - 12/04/2012 11:59 PM EDT Hospital Encounter Radiology Library [place] [facility] [place] [address] Spike Nicolas MD Screening breast examination Discharge [...] Nicolas MD G FILM LIBRARY ORD ERABLES [place], [place] documented in this encounter Visit Diagnoses Diagnosis Screening breast examination Other screening breast examination documented in this encounter Care Teams Cash Crop Farmer Relationship Specialty Start Date End Date Spike Sierra MD [address] [place] [address] PCP - General 01/12/10 01/23/17 documented as of this encounter
--- OUTSIDE RECORDS SUMMARY | 2024-03-07 11:20 | XMS_ITS | Encounter Summary ---
Author Organization [place] [address] Care Team Providers Care Grocery Store Associate Name Role Phone Christine Fuentes Primary Care Provider +1- [phone] Encounter Details Date Type Department Care Team (Late st Contact Info) Description 03/30/2017 8:[address] [facility] Hospital En[place] [address] Marla Brice MD Breast lesion Discharge Disposition: [...] disorder documented in this encounter Care Teams Grocery Store Associate Relationship Specialty Start Date End Date Christine Fuentes PA [address] [place] [address] PCP - General Family Medicine 01/24/17 10/08/19 documented as of this encounter
--- OUTSIDE RECORDS SUMMARY | 2024-03-07 11:20 | XMS_ITS | Encounter Summary ---
Author Organization [facility] [place] [address] Care Team Providers Care Sheet Metal Duct Installer Apprentice Name Role Phone Christine Fuentes Primary Care Provider +1- [phone] Encounter Details Date Type Department Care Team (Late st Contact Info) Description 01/22/2018 9:23 AM EST - 01/22/2018 11:59 PM EST Hospital [place] [address] Rhoda Brumfield APRN Breast cancer screening, high [...] breast documented in this encounter Care Teams Sheet Metal Duct Installer Apprentice Relationship Specialty Start Date End Date Christine Fuentes PA [address] [place] [address] PCP - General Family Medicine 01/24/17 10/08/19 documented as of this encounter
--- OUTSIDE RECORDS SUMMARY | 2024-03-07 11:20 | XMS_ITS | Encounter Summary ---
Author Organization [facility] [place] [address] Care Team Providers Care Wildfire Prevention Specialist Name Role Phone Spike Sierra MD Primary Care Provider Encounter Details Date Type Department Care Team (Latest Contact Info) Description 01/17/2014 Unscheduled Encounter Hematology Oncology at [address] [phone] [facility] [address] [place] [address] Dietary surveillance and counseling Social History Tobacco Use Types Packs/Day Years Used Date Smoking Tobacco: Former Cigarettes Q uit: 10/19/2011 Sex and Gender Information Value Date Recorded Sex Assigned at Not on file Gender Identity Not on file Sexual Orientation Not on file documented as of this encounter Progress Notes * Denzel Payne, MUMTAZ - 01/17/2014 1:00 PM EST [facility] Dietitian Follow Up Assessment Seen By: Elida Payne, MS, RD, INSTRUCTOR PRIVATE, LD Reason for visit: Wanting to lose [...] have eggs and toast Noon: can of Vocalyticso lite soup and pickels Pm: lean cuisine [...] up to 17 min/treadmill). Logging calories, likes AFTER-MOUSE and the meal suggestions, but didn't feel [...] levels, if suboptimal in 3-6 mos. The [facility] series from [facility] September 2008 showed a lower risk of [...] counseling documented in this encounter Care Teams Wildfire Prevention Specialist Relationship Specialty Start Date End Date Spike Sierra MD [address] [place] [address] PCP - General 01/12/10 01/23/17 documented as of this encounter
--- OUTSIDE RECORDS SUMMARY | 2024-03-07 11:20 | XMS_ITS | Encounter Summary ---
Author Organization [facility] Address [facility] [place] [address] Care Team Providers Care Provider Engagement Executive Name Role Phone Christine Fuentes Primary Care Provider +1- [phone] Reason for Visit * Consultation (Routine) - Closed Specialty Diagnoses / Procedures Referred By Cherie abdul Referred To Contact Dermatology Diagnoses intertrigo Christine Fuentes PA [address] [place] [address] [facility] Dermatology [address] [place] [address] Referral ID Status Reason Start Date Expiration Date V isits Requested Visits Authorized [id number] Closed Consult, Test & Treat Connection [facility] 05/05/2017 05/05/2018 1 1 Encounter Details Date Type Department Care Team (Late st Contact Info) Description 07/03/2017 10:30 AM EDT Office Visit Dermatology at [facility] [address] [place] [phone] Krystyna Estrada MD [facility] [place] [address] Intertrigo Social History Tobacco Use Types Packs/Day [...] - recommended drying the skin with a interior design program chair after bathing - Rx: ketoconazole [...] by Krystyna Estrada MD Resident in Dermatology [facility] Patient seen in conjunction with staff steam shovel operating engineer: Huang Keller MD Section of Dermatology [facility] * Huang Keller MD - 07/03/2017 10:30 AM EDT I was the supervising physician working with Dermatology resident, Dr. Estrada, in the Dermatology Clinic during this patient visit. The level of resident supervision for this patient visit was indirect supervision with direct supervision immediately available (definition: [facility] GME Policy Statement on Graduate Medical Education, Supervision of Graduate Medical Trainees). I was immediately available to Dr. Estrada for questions and discussion regarding this visit. I have reviewed his encounter note details and level of service. HUANG KELLER MD [facility] Staff Physician documented in this encounter Plan of Treatment Not on file documented as of this encounter Visit Diagnoses Diagnosis Intertrigo Other specified erythematous condition documented in this encounter Care Teams Provider Engagement Executive Relationship Specialty Start Date End Date Christine Fuentes PA [address] [place] [address] PCP - General Family Medicine 01/24/17 10/08/19 documented as of this encounter
--- OUTSIDE RECORDS SUMMARY | 2024-03-07 11:20 | XMS_ITS | Encounter Summary ---
Author Organization [facility] [place] [address] Care Team Providers Care Pond Sawyer Name Role Phone Christine Fuentes Primary Care Provider +1- [phone] Encounter Details Date Type Department Care Team (Late st Contact Info) Description 03/10/2017 Orders [place] [address] Marla Brice MD Breast lesion Social History [...] disorder documented in this encounter Care Teams Pond Sawyer Relationship Specialty Start Date End Date Christine Fuentes PA [address] [place] [address] PCP - General Family Medicine 01/24/17 10/08/19 documented as of this encounter
--- OUTSIDE RECORDS SUMMARY | 2024-03-07 11:20 | XMS_ITS | Encounter Summary ---
Author Organization [facility] Address [facility] [place] [address] Care Team Providers Care Small Products I Assembler Name Role Phone Christine Fuentes Primary Care Provider +1- [phone] Encounter Details Date Type Department Care Team (Latest Contact Info) Description 02/01/2017 12:40 PM EST - 02/01/2017 11:59 PM EST Hospital En[place] [address] Anita Valentine MD [facility] DR [place]AGNOST[place] [address] Abnormal finding on breast imaging Discharge Disposition: [...] Report (02/01/2017 1:46 PM EST) Final Diagnosis [id number] ? Location: 3L The signing pathologist has [...] Valdes Verified: ??02/02/2017 ?Pathologist Performed at: ??-[facility] Dept. of Pathology, [place], [place] DISCUSSION Multiple foci of complex sclerosing [...] sing: (T2) ??shb 02/02/2017 2:27 PM EST [facility] BREAST STRUCTURE / Unknown 02/01/2017 1:46 PM EST 02/01/2017 1:46 PM EST Evans Almanzar MD PATHOLOGY/CYTOLOGY ORDERABLES [facility] [place] [address] * Mammo Breast Us Limited Left (02/01/2017 [...] core biopsy specimens were obtained using a [employer] Eviva 9g 20mm device. A specimen radiograph confirms the mass with distorted edges to be contained within it. This also contains the incidental microcalcifications associated with the area of concern. A [employer]lendark Eviva cylinder marker clip was deployed. A [...] breast documented in this encounter Care Teams Small Products I Assembler Relationship Specialty Start Date End Date Christine Fuentes PA [address] [place] [address] PCP - General Family Medicine 01/24/17 10/08/19 documented as of this encounter
--- OUTSIDE RECORDS SUMMARY | 2024-03-07 11:20 | XMS_ITS | Encounter Summary ---
[place] [address] Care Team Providers Care Security Installer Name Role Phone Christine Fuentes Primary Care Provider +1- [phone] Encounter Details Date Type Department Care Team (Late st Contact Info) Description 03/08/2017 10:15 AM EST Office Visit [place] [address] Marla Brice MD Sclerosing adenosis of left [...] partial mastectomy and RT in 2009 ([facility]). She was followed by surgeon [...] breast documented in this encounter Care Teams Security Installer Relationship Specialty Start Date End Date Christine Fuentes PA [address] [place] [address] PCP - General Family Medicine 01/24/17 10/08/19 documented as of this encounter
--- OUTSIDE RECORDS SUMMARY | 2024-03-07 11:20 | XMS_ITS | Encounter Summary ---
[place] [address] Care Team Providers Care Ammonium Sulfate Operator Name Role Phone Christine Fuentes Primary Care Provider +1- [phone] Reason for Visit * Auth/Cert Specialty Diagnoses / Procedures Referred By Cherie abdul Referred To Contact Diagnoses LEFT BREAST COMPLEX SCLEROSING LESION Procedures PRO EXCISE BREAST LES W XRAY MARKER EXCISION LESION, BREAST W/ PREOP.MARKER (NEEDLE LOC.) (WRVU 6.69) MODIFIER WITH NEEDLE LOC., LESION #1 Referral ID Status Reason Start Date Expiration Date Visits Re quested Visits Authorized [id number] 1 1 Encounter Details Date Type Department Care Team (Late st Contact Info) Description 03/30/2017 11:40 AM EST - 03/30/2017 1:17 PM EST Surgery [facility] [place] [phone] Savana Zepeda MD EXCISION LESION, BREAST W/ [...] closest emergency room or call the hospital dexigraph operator at [phone] and ask for physician assembly instructions writer covering for your physician. Questions or problems after 5pm or on a weekend: Call the [facility] dexigraph operator at and ask for the physician assembly instructions writer covering for your doctor. * Patient Instructions* [...] 10:45 AM Rhoda Brumfield APRN [facility] Call Doctor for: Worsening redness or drainage from your incision lasting longer than 5 days following surgery Any foul-smelling drainage from the incision Fevers greater than 101 degrees F Persistent nausea or vomiting (this may be related to opioid pain medications) Phone number for questions: [phone] before 5 PM weekdays [phone] after 5 PM and on weekends/holidays documented [...] as of this encounter H&P Notes * Iirs Macdonald MD - 03/30/2017 12:24 PM EST [...] Zepeda MD - 03/30/2017 1:48 PM EST [facility] Operative Note Patient Name: Cecilia Marx : [id number] MR#: [id number] Case Date: 03/30/2017 Surgeon: Surgeon(s) and Role: [...] Operative Note Patient Name: Cecilia Marx : [id number] MR#: [id number] Case Date: 03/30/2017 Surgeon: Surgeon(s) and Role: [...] PM EST 03/30/2017 2:20 PM EST Narrative [facility] - 03/30/2017 2:20 PM EST Specimen requisition ordered. ??Separate Pathology report to follow Resulting Agency Comment Spec In Lab Savana Blue MD PATHOLOGY/CYTOLO GY ORDERABLES [facility] [place] [address] * Surgical Pathology Report (03/30/2017 1:22 PM EST) Final Diagnosis [id number] ? Location: OSC The signing pathologist has [...] Delon Lewis Verified: ??04/05/2017 ?Pathologist Performed at: ??-[facility] Dept. of Pathology, [place], [place] DISCUSSION Two separate foci of atypical [...] clip is within slice XII. SECTIONS/PROCESSING: (1) applications sales representative perpendicular slice I, orange-cranial margin; (2) applications sales representative slice VIII; (3) applications sales representative slice IX; (4) applications sales representative slice X; (5) applications sales representative slice XI; (6) applications sales representative slice XII, with cylinder clip; (7) slice XIII, with lesion; (8) slice XIV, with lesion; (9) applications sales representative perpendicular slice XV. (R9) Ischemic Time: 85 minutes ??chinyere Additional sections: (10) remaining slice VIII; (11) slice III; (12) fibrous tissue central slice V; (13-14) bisected slice VII. (R14) chinyere 04/05/2017 9:19 AM EST [facility] BREAST STRUCTURE / Unknown 03/30/2017 1:22 PM EST 03/30/2017 1:22 PM EST Savana Blue MD PATHOLOGY/CYTOLO GY ORDERABLES [facility] [place] [address] documented in this encounter Visit Diagnoses Not [...] 5% 100 mL (COMPLETED) 2 g, Intravenous, SURVEYOR HELPER ROD TO O.R., 1 dose, On Arpita 03/30/17 [...] Routine documented in this encounter Care Teams Ammonium Sulfate Operator Relationship Specialty Start Date End Date Christine Fuentes PA [address] [place] [address] PCP - General Family Medicine 01/24/17 10/08/19 documented as of this encounter
--- OUTSIDE RECORDS SUMMARY | 2024-03-07 11:20 | XMS_ITS | Encounter Summary ---
[place] [address] Care Team Providers Care Formal Service Waiter Name Role Phone Christine Fuentes Primary Care Provider +1- [phone] Encounter Details Date Type Department Care Team (Late st Contact Info) Description 01/22/2018 10:45 AM EST Office [place] [address] Rhoda Brumfield, MIRIAN Breast cancer screening, high [...] patient documented in this encounter Care Teams Formal Service Waiter Relationship Specialty Start Date End Date Christine Fuentes PA [address] [place] [address] PCP - General Family Medicine 01/24/17 10/08/19 documented as of this encounter
--- OUTSIDE RECORDS SUMMARY | 2024-03-07 11:20 | XMS_ITS | Encounter Summary ---
Author Organization [facility] [place] [address] Care Team Providers Care Hand Clipper Name Role Phone Spike Sierra MD Primary Care Provider Encounter Details Date Type Department Care Team (Latest Contact Info) Description 12/31/2014 12:05 AM EST - 12/31/2014 11:59 PM EST Hospital Encounter Radiology Library at [facility] [place] [address] Spike Nicolas MD Screening breast examination Discharge [...] Nicolas MD G FILM LIBRARY ORD ERABLES [place], [place] documented in this encounter Visit Diagnoses Diagnosis Screening breast examination Other screening breast examination documented in this encounter Care Teams Hand Clipper Relationship Specialty Start Date End Date Spike Sierra MD [address] [place] [address] PCP - General 01/12/10 01/23/17 documented as of this encounter
--- OUTSIDE RECORDS SUMMARY | 2024-03-07 11:20 | XMS_ITS | Encounter Summary ---
Author Organization [facility] [place] [address] Care Team Providers Care Premix Concrete Batcher Name Role Phone Spike Sierra MD Primary Care Provider [phone] Encounter Details Date Type Department Care Team (Late st Contact Info) Description 01/09/2014 2:00 PM EST Ancillary Appointment Hematology Oncology at [address] [id number] [facility] [place] [address] Social History Tobacco Use Types Packs/Day Years Used Date Smoking Tobacco: Former Cigarettes Q uit: 10/19/2011 Sex and Gender Information Value Date Recorded Sex Assigned at Not on file Gender Identity Not on file Sexual Orientation Not on file documented as of this encounter Progress Notes * Denzel Payne RD - 01/09/2014 2:21 PM EST [facility] Initial Dietitian Assessment Seen By: Elida Payne MS, RD, ENGINEERING GROUP MANAGER, LD Referred by: Yolette Waldrop APRN Reason [...] have eggs and toast Noon: can of NextPageo lite soup and pickels Pm: lean cuisine [...] if suboptimal in 3-[address] [facility] series from [facility] September 2008 showed [...] on filedocumented in this encounter Care Teams Premix Concrete Batcher Relationship Specialty Start Date End Date Spike Sierra MD [address] [place] [address] PCP - General 01/12/10 01/23/17 documented as of this encounter
--- OUTSIDE RECORDS SUMMARY | 2024-03-07 11:20 | XMS_ITS | Encounter Summary ---
[place] [address] Care Team Providers Care Ignition Expert Name Role Phone Christine Fuentes Primary Care Provider +1- [phone] Reason for Visit * Reason Onset Date Comments Follow-up 04/11/2017 Encounter Details Date Type Department Care Team (Late st Contact Info) Description 04/11/2017 Telephone [place] [address] Rhoda Brumfield APRN Follow-up Social History Tobacco [...] on filedocumented in this encounter Care Teams Ignition Expert Relationship Specialty Start Date End Date Christine Fuentes PA [address] [place] [address] PCP - General Family Medicine 01/24/17 10/08/19 documented as of this encounter
--- OUTSIDE RECORDS SUMMARY | 2024-03-07 11:20 | XMS_ITS | Encounter Summary ---
Author Organization [facility] [place] [address] Care Team Providers Care Machine Plaster Mixer Name Role Phone Spike Sierra MD Primary Care Provider [phone] Encounter Details Date Type Department Care Team (Latest Contact Info) Description 11/28/2011 - 11/28/2011 11:59 PM EDT Hospital Encounter Radiology Library at [facility] [place] [address] Spike Nicolas MD Screening breast examination Discharge [...] only and is auto-finalizing. Spike Nicolas MD [facility] FILM LIBRARY ORD ERABLES [place], [place] documented in this encounter Visit Diagnoses Diagnosis Screening breast examination Other screening breast examination documented in this encounter Care Teams Machine Plaster Mixer Relationship Specialty Start Date End Date Spike Sierra MD [address] [place] [address] PCP - General 01/12/10 01/23/17 documented as of this encounter
--- OUTSIDE RECORDS SUMMARY | 2024-03-07 11:20 | XMS_ITS | Encounter Summary ---
Author Organization [facility] [place] [address] Care Team Providers Care Telemarketer Supervisor Name Role Phone Christine Fuentes Primary Care Provider +1- [phone] Reason for Visit * Auth/Cert Specialty Diagnoses / Procedures Referred By Cherie abdul Referred To Contact Diagnoses LEFT BREAST COMPLEX SCLEROSING LESION Procedures PRO EXCISE BREAST LES W XRAY MARKER EXCISION LESION, BREAST W/ PREOP.MARKER (NEEDLE LOC.) (WRVU 6.69) MODIFIER WITH NEEDLE LOC., LESION #1 Referral ID Status Reason Start Date Expiration Date Visits Re quested Visits Authorized [id number] 1 1 Encounter Details Date Type Department Care Team (Late st Contact Info) Description 03/30/2017 12:44 PM EST Anesthesia Event [place] [address] Joey Pham MD [facility] [place] [address] Vahid Osorio MD [facility] [place] [address] Anesthesia Record Procedure Summary Procedure Name Responsible [...] Pham MD - 03/30/2017 2:19 PM EST [facility] Department of Anesthesiology Post-procedure [...] All Anesthesia Providers: Anesthesiologist: Joey Pham MD POLYSOMNOGRAPHIC TECH: Chapis Santoro CRNA Most Recent Vitals: 03/30/17 1404 BP: 115/79 Pulse: 89 Resp: 16 Temp: 36.8 ??C (98.2 ??F) SpO2: 93% Pain 0 (03/30/17 1404) Patient Location: PACU/[facility] Level of Consciousness: Awake and [...] with patient and spouse. Plan discussed with POLYSOMNOGRAPHIC TECH. PAT Staff Note Attending NOTE Brief HPI: [...] dextrose 5% 100 mL 2 g, Intravenous, POLITICAL REPORTER TO O.R., 1 dose, On Arpita 03/30/17 [...] mL/hr documented in this encounter Care Teams Telemarketer Supervisor Relationship Specialty Start Date End Date Christine Fuentes PA [address] [place] [address] PCP - General Family Medicine 01/24/17 10/08/19 documented as of this encounter
--- OUTSIDE RECORDS SUMMARY | 2024-03-07 11:20 | XMS_ITS | Encounter Summary ---
Author Organization [facility] Address [facility] [place] [address] Care Team Providers Care Media Technician Name Role Phone Christine Fuentes Primary Care Provider +1- [phone] Encounter Details Date Type Department Care Team (Latest Contact Info) Description 01/30/2018 12:39 PM EST - 01/30/2018 1:02 PM EST Hospital [place] [address] [facility] [place] [address] Abnormal finding on breast imaging Discharge Disposition: [...] breast documented in this encounter Care Teams Media Technician Relationship Specialty Start Date End Date Christine Fuentes PA [address] [place] [address] PCP - General Family Medicine 01/24/17 10/08/19 documented as of this encounter
--- OUTSIDE RECORDS SUMMARY | 2024-03-07 11:20 | XMS_ITS | Encounter Summary ---
Author Organization [facility] [place] [address] Care Team Providers Care Vice President Of Engineering Name Role Phone Christine Fuentes Primary Care Provider +1- [phone] Encounter Details Date Type Department Care Team (Latest Contact Info) Description 01/30/2018 1:03 PM EST - 01/30/2018 11:59 PM EST Hospital Encounter [place] [address] Babs Duvall MD [facility] [place] [address] Abnormal mammogram Discharge Disposition: Home Social History [...] core biopsy specimens were obtained using a [employer] Eviva 9g device. Biopsy specimens were radiographed. [...] PM EST 01/30/2018 1:33 PM EST Narrative [facility] - 01/30/2018 1:33 PM EST Specimen requisition ordered. ??Separate Pathology report to follow Babs Duvall MD PATHOLOGY/CYTOLOGY ORDERABLES Performing Organization Address City/State/[facility] Co de Phone Number [facility] [place] [address] * Surgical Pathology Report (01/30/2018 1:25 PM EST) Final Diagnosis [id number] ? Location: 3L The signing pathologist has [...] cancer cells with immunostaining) Stain intensity: Strong [place] immunoreactivity: Positive (~50% cancer cells with immunostaining) [...] The assays were performed according to the vegetable packer ? 's instructions using Anti-ER (SP1) and Anti-N[place] (16) antibodies. Electronically signed by: ??Kamryn Gregory DO Verified: ??02/01/2018 ?Pathologist Performed at: ??-[facility] Dept. of Pathology, [place], [place] DISCUSSION The DCIS shows a micropapillary [...] 7 minutes ??ejr 02/01/2018 9:15 AM EST [facility] BREAST STRUCTURE / Unknown 01/30/2018 1:25 PM EST 01/30/2018 1:25 PM EST Babs Duvall MD PATHOLOGY/CYTOLOGY ORDERABLES [facility] [place] [address] documented in this encounter Visit Diagnoses Diagnosis [...] mg documented in this encounter Care Teams Vice President Of Engineering Relationship Specialty Start Date End Date Christine Fuentes PA [address] [place] [address] PCP - General Family Medicine 01/24/17 10/08/19 documented as of this encounter
--- OUTSIDE RECORDS SUMMARY | 2024-03-07 11:20 | XMS_ITS | Encounter Summary ---
[place] [address] Care Team Providers Care Addiction Therapist Name Role Phone Spike Sierra MD Primary Care Provider [phone] Reason for Visit * Reason Onset Date Comments Other 07/05/2011 answer patient q uestion Encounter Details Date Type Department Care Team (Late st Contact Info) Description 07/05/2011 Telephone Radiation Oncology at [address] [phone] Daniel Boyer, RN Other (answer patient question) [...] 2011 11:53 AM Regarding: re:upcoming appt Contact: [phone] Please call pt back. She said there was some confusion with what she thought the upcoming appt was going to be about. I called patient and she confirmed that she received appt to see the nurse practitioner,Yolette Coon 07/13, but she feels it is too soon after seeing Dr Fair in May. She states she is now seeinga Zoroastrian counselor through her alevism and this is helping with her depression. She is agreeable to seeing the nurse practitioner, but prefers to wait until the routine follow up appt would be. Shewishes to cancel the 07/13 appointment. She voiced that she will call this clinic if she feels the current arrangement w/ her alevism is not helpful. Plan: Will cancel the 07/13 appt w/ C. Pace. I will ask Dr Fair in this week's team meeting, when she wishes for the appt to be rescheduled to. documented in this encounter Plan of Treatment Not on file documented as of this encounter Visit Diagnoses Not on filedocumented in this encounter Care Teams Addiction Therapist Relationship Specialty Start Date End Date Spike Sierra MD [address] [place] [address] PCP - General 01/12/10 01/23/17 documented as of this encounter
--- OUTSIDE RECORDS SUMMARY | 2024-03-07 11:20 | XMS_ITS | Encounter Summary ---
Author Organization [facility] [place] [address] Care Team Providers Care Database Management Specialist Name Role Phone Spike Sierra MD Primary Care Provider [phone] Encounter Details Date Type Department Care Team (Late st Contact Info) Description 01/31/2014 9:00 AM EST Ancillary Appointment Hematology Oncology at [address] [phone] [facility] [place] [address] Social History Tobacco Use Types Packs/Day Years Used Date Smoking Tobacco: Former Cigarettes Q uit: 10/19/2011 Sex and Gender Information Value Date Recorded Sex Assigned at Not on file Gender Identity Not on file Sexual Orientation Not on file documented as of this encounter Progress Notes * Denzel Payne RD - 01/31/2014 9:02 AM EST [facility] Dietitian Follow Up Assessment Seen By: Elida Payne, MS, RD, CASING CLEANER, LD Reason for visit: Wanting to lose [...] up to 17 min/treadmill). Logging calories, likes [employer] and [employer] and the meal suggestions, but didn't feel [...] levels, if suboptimal in 3-6 mos. The [facility] series from [facility] September 2008 showed a lower risk of [...] on filedocumented in this encounter Care Teams Database Management Specialist Relationship Specialty Start Date End Date Spike Sierra MD [address] [place] [address] PCP - General 01/12/10 01/23/17 documented as of this encounter
--- OUTSIDE RECORDS SUMMARY | 2024-03-07 11:20 | XMS_ITS | Encounter Summary ---
Author Organization [facility] [place] [address] Care Team Providers Care Supervisor Plate Pasting Name Role Phone Spike Sierra MD Primary Care Provider [phone] Encounter Details Date Type Department Care Team (Late st Contact Info) Description 03/07/2014 9:00 AM EST Ancillary Appointment Hematology Oncology at [address] [phone] [facility] [place] [address] Social History Tobacco Use Types Packs/Day Years Used Date Smoking Tobacco: Former Cigarettes Q uit: 10/19/2011 Sex and Gender Information Value Date Recorded Sex Assigned at Not on file Gender Identity Not on file Sexual Orientation Not on file documented as of this encounter Progress Notes * Denzel Payne RD - 03/07/2014 8:59 AM EST [facility] Dietitian Follow Up Assessment Seen By: Elida Payne, MS, RD, AUTOCUTTER, LD Reason for visit: Wanting to lose [...] up to 17 min/treadmill). Logging calories, likes [employer] and [employer] and the meal suggestions, but didn't feel [...] levels, if suboptimal in 3-6 mos. The [facility] series from [facility] September 2008 showed a lower risk of [...] (AND) -- Stop Stress Eating -- Healthy slat basket maker helper machine ([employer]) Other Recommendations: Monitoring and Evaluation: Will follow up with Mrs. Marx in one week (s) to re-evaluate. documented in this encounter Plan of Treatment Not on file documented as of this encounter Visit Diagnoses Not on filedocumented in this encounter Care Teams Supervisor Plate Pasting Relationship Specialty Start Date End Date Spike Sierra MD [address] [place] [address] PCP - General 01/12/10 01/23/17 documented as of this encounter
--- OUTSIDE RECORDS SUMMARY | 2024-03-07 11:20 | XMS_ITS | Encounter Summary ---
Author Organization [facility] [place] [address] Care Team Providers Care Assessment Rn Name Role Phone Spike Sierra MD Primary Care Provider Reason for Referral * Consultation (Routine) - Closed Specialty Diagnoses / Procedures Referred By Cherie abdul Referred To Contact Hematology and Oncology Diagnoses Breast cancer, right Yolette Waldrop APRN [facility] [place] [address] [facility] Hem Onc Infusion [address] [place] [phone] Referral ID Status Reason Start Date Expiration Date V isits Requested Visits Authorized [id number] Closed Continuity of Care 12/27/2013 06/25/2014 1 1 Reason for Visit * Reason Comments Radiation Follow-up breast cancer Encounter Details Date Type Department Care Team (Late st Contact Info) Description 12/26/2013 9:00 AM EST Follow-Up Radiation Oncology at [address] [phone] Yolette Waldrop APRN Breast cancer, [...] Dr. Forrester & he referred her to [facility] for stereotactic bx. 01/06/10 limited U/S R [...] Valentine, who does not rec MRI. 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 She would like to meet with sql report analyst todiscuss weight loss --referral made. documented in this encounter Plan of Treatment Scheduled Referrals Name Type Priority Associated Diagnoses Orde r Schedule Referral to Nutrition Services Outpatient Referral Routine Breast Cancer, Right Ordered: 12/27/2013 documented as of this encounter Visit Diagnoses Diagnosis Breast cancer, right- Primary Malignant neoplasm of breast (female), unspecified site documented in this encounter Care Teams Assessment Rn Relationship Specialty Start Date End Date Spike Sierra MD [address] [place] [address] PCP - General 01/12/10 01/23/17 documented as of this encounter
--- OUTSIDE RECORDS SUMMARY | 2024-03-07 11:20 | XMS_ITS | Encounter Summary ---
Author Organization [facility] Address [facility] [place] [address] Care Team Providers Care Building Analyst/Supervisor Name Role Phone Spike Sierra MD Primary Care Provider Encounter Details Date Type Department Care Team (Latest Contact Info) Description 01/04/2016 - 01/04/2016 11:59 PM [facility] Hospital Encounter Radiology Library at [facility] [place] [place] [address] Spike Nicolas MD Discharge Disposition: Home Social [...] Only Mammo (01/04/2016 12:00 AM EST) Narrative [facility] - 01/13/2017 9:06 AM EST This exam is for storage only and is auto-finalizing. Spike Nicolas MD [facility] FILM LIBRARY ORD ERABLES Performing Organization Address City/State/[facility] Co de Phone Number [place], [place] documented in this encounter Visit Diagnoses Not on filedocumented in this encounter Care Teams Building Analyst/Supervisor Relationship Specialty Start Date End Date Spike Sierra MD [address] [place] [address] PCP - General 01/12/10 01/23/17 documented as of this encounter
--- OUTSIDE RECORDS SUMMARY | 2024-03-07 11:20 | XMS_ITS | Encounter Summary ---
Author Organization Pending [facility] To [facility] Address [facility] [place] [address] Care Team Providers Care Leasing Director Name Role Phone Christine Fuentes Primary Care Provider [phone] Encounter Details Date Type Department Care Team (Late st Contact Info) Description 03/30/2017 [place] [address] Evans Almanzar MD [facility] [place] [address] Social History Tobacco Use Types Packs/Day Years [...] on filedocumented in this encounter Care Teams Leasing Director Relationship Specialty Start Date End Date Christine Fuentes PA [address] [place] [address] PCP - General Family Medicine 01/24/17 10/08/19 documented as of this encounter
--- OUTSIDE RECORDS SUMMARY | 2024-03-07 11:20 | XMS_ITS | Encounter Summary ---
[place] [address] Care Team Providers Care Pesticide Use Medical Coordinator Name Role Phone Spike Sierra MD Primary Care Provider [phone] Encounter Details Date Type Department Care Team (Late st Contact Info) Description 01/02/2014 Telephone [place] [phone] Yolette Waldrop APRN Social History Tobacco Use [...] 35-45. We will increase her vitamin D3 [id number] IU a day. documented in this encounter Plan of Treatment Not on file documented as of this encounter Visit Diagnoses Not on filedocumented in this encounter Care Teams Pesticide Use Medical Coordinator Relationship Specialty Start Date End Date Spike Sierra MD [address] [place] [address] PCP - General 01/12/10 01/23/17 documented as of this encounter
--- OUTSIDE RECORDS SUMMARY | 2024-03-07 11:20 | XMS_ITS | Encounter Summary ---
Author Organization [facility] [place] [address] Care Team Providers Care Monorail Crane Operator Name Role Phone Spike Sierra MD Primary Care Provider [phone] Reason for Visit * Reason Comments Radiation Follow-up Encounter Details Date Type Department Care Team (Late st Contact Info) Description 12/19/2011 3:00 PM EDT Follow-Up Radiation Oncology at [address] [phone] Ema Fair MD [facility] [place] [address] Breast CA (Primary Dx) Discharge Disposition: Home [...] FU today. 11/21/11 B mmg, done @ [facility], requested by Dr. Forrester, whom she recently [...] and Plan: [place]. Request mmg report from [facility]. I rec'd FU in 6 mos, however, [...] site documented in this encounter Care Teams Monorail Crane Operator Relationship Specialty Start Date End Date Spike Sierra MD [address] [place] [address] PCP - General 01/12/10 01/23/17 documented as of this encounter
--- OUTSIDE RECORDS SUMMARY | 2024-03-07 11:20 | XMS_ITS | Encounter Summary ---
Author Organization [facility] [place] [address] Care Team Providers Care Perfusionist Name Role Phone Christine Fuentes Primary Care Provider [phone] Encounter Details Date Type Department Care Team (Late st Contact Info) Description 03/30/2017 8:41 AM EST - 03/30/2017 9:23 AM EST Hospital [place] [address] Marla Brice MD Breast lesion Discharge Disposition: [...] mg documented in this encounter Care Teams Perfusionist Relationship Specialty Start Date End Date Christine Fuentes PA [address] [place] [address] PCP - General Family Medicine 01/24/17 10/08/19 documented as of this encounter
--- OUTSIDE RECORDS SUMMARY | 2024-03-07 11:20 | XMS_ITS | Encounter Summary ---
Author Organization [facility] Address [facility] [place] [address] Care Team Providers Care Centralized Traffic Control Operator Name Role Phone Spike Sierra MD Primary Care Provider Encounter Details Date Type Department Care Team (Latest Contact Info) Description 12/31/2014 - 12/31/2014 12:04 AM [facility] Hospital Encounter Radiology Library at [facility] [place] [address] Spike Nicolas MD Screening breast examination Discharge [...] only and is auto-finalizing. Spike Nicolas MD [facility] FILM LIBRARY ORD ERABLES Performing Organization Address City/State/[facility] Co de Phone Number [place], [place] documented in this encounter Visit Diagnoses Diagnosis Screening breast examination Other screening breast examination documented in this encounter Care Teams Centralized Traffic Control Operator Relationship Specialty Start Date End Date Spike Sierra MD [address] [place] [address] PCP - General 01/12/10 01/23/17 documented as of this encounter
--- OUTSIDE RECORDS SUMMARY | 2024-03-07 11:20 | XMS_ITS | Encounter Summary ---
Author Organization [facility] Address [facility] [place] [address] Care Team Providers Care Associate Drafter Name Role Phone Christine Fuentes Primary Care Provider [phone]- [phone] Reason for Visit * Consultation (Routine) - Closed Specialty Diagnoses / Procedures Referred By Cherie abdul Referred To Contact Hematology and Oncology Diagnoses Abnormal magnetic resonance imaging of left breast Christine Fuentes PA [address] [place] [address] [facility] [address] [place] [address] Referral ID Status Reason Start Date Expiration Date V isits Requested Visits Authorized [id number] Closed Consult, Test & Treat PCP Updated and/or Approved 01/20/2017 01/20/2018 1 1 Encounter Details Date Type Department Care Team (Latest Contact Info) Description 02/01/2017 12:38 PM EST - 02/01/2017 12:39 PM EST Hospital En[place] [address] Anita Valentine MD [facility] [place]AGNOST[place] [address] Abnormal finding on breast imaging [...] core biopsy specimens were obtained using a [employer]iva 9g 20mm device. A specimen radiograph confirms [...] core biopsy specimens were obtained using a [employer] Eviva 9g 20mm device. A specimen radiograph [...] core biopsy specimens were obtained using a [employer]AD Eviva 9g 20mmdevice. A specimen radiograph confirms [...] MD PATHOLOGY/CYTOLOGY ORDERABLES [facility] [place] [address] documented in this encounter Visit Diagnoses Diagnosis [...] mg documented in this encounter Care Teams Associate Drafter Relationship Specialty Start Date End Date Christine Fuentes PA [address] [place] [address] PCP - General Family Medicine 01/24/17 10/08/19 documented as of this encounter
--- OUTSIDE RECORDS SUMMARY | 2024-03-07 11:20 | XMS_ITS | Encounter Summary ---
Author Organization [facility] [place] [address] Care Team Providers Care Excellence Consultant Name Role Phone Christine Fuentes Primary Care Provider [phone]- [phone] Reason for Visit * Consultation (Routine) - Closed Specialty Diagnoses / Procedures Referred By Cherie abdul Referred To Contact Hematology and Oncology Diagnoses Breast cancer screening, high risk patient History of breast cancer Rhoda Brumfield, [facility] [place] [address] St Hem Onc Office [address] [place] [phone] Referral ID Status Reason Start Date Expiration Date V isits Requested Visits Authorized [id number] Closed Consult, Test & Treat 04/13/2017 04/13/2018 1 1 Encounter Details Date Type Department Care Team (Late st Contact Info) Description 04/20/2017 3:00 PM EST Office Visit Hematology/Oncology at [address] [phone] Amaury Stack MD Atypical ductal [...] [ ] Not satisfied SOCIAL ASSESSMENT: See [facility] social assessment information entered. Support Systems: [...] 6.69) performed by Marla Brice MD at [facility] Allergies Allergen Reactions ??? Nitrofurantoin [...] alter care of Patient. Yes. ?? COMPARISONS: [id number] ?? FINDINGS: The breasts of scattered fiber [...] Delon Lewis Verified: ??04/05/2017 ?Pathologist Performed at: ??-[facility] [place], [place], [place] DISCUSSION Two separate foci of atypical [...] breast documented in this encounter Care Teams Excellence Consultant Relationship Specialty Start Date End Date Christine Fuentes PA [address] [place] [address] PCP - General Family Medicine 01/24/17 10/08/19 documented as of this encounter
--- OUTSIDE RECORDS SUMMARY | 2024-03-07 11:20 | XMS_ITS | Encounter Summary ---
Author Organization [facility] Address [facility] [place] [address] Care Team Providers Care Inspector Hot Forgings Name Role Phone Spike Sierra MD Primary Care Provider Reason for Visit * Reason Comments Radiation Follow-up Encounter Details Date Type Department Care Team (Late st Contact Info) Description 12/13/2010 1:30 PM EDT Follow-Up Radiation Oncology at [address] [phone] Ema Fair MD [facility] [place] [address] Breast ca (Primary Dx) Discharge Disposition: Home [...] site documented in this encounter Care Teams Inspector Hot Forgings Relationship Specialty Start Date End Date Spike Sierra MD [address] [place] [address] PCP - General 01/12/10 01/23/17 documented as of this encounter
--- OUTSIDE RECORDS SUMMARY | 2024-03-07 11:20 | XMS_ITS | Encounter Summary ---
Author Organization [facility] Address [facility] [place] [address] Care Team Providers Care Solo Truck Driver Name Role Phone Spike Sierra MD Primary Care Provider [phone] Encounter Details Date Type Department Care Team (Latest Contact Info) Description 01/20/2017 4:53 PM EST - 01/20/2017 11:59 PM EST Hospital Encounter Radiology Library at [facility] [place] [address] Christine Fuentes PA [address] [place] [address] Abnormal finding on breast imaging Discharge Disposition: [...] ultrasound Please note: The interpretation of the [facility] Breast Imaging Radiologist subspecialist may differ from the original radiologists interpretation. This is usually not due to a deficiency of the original interpreting radiologist, rather due to the greater skill level afforded by sub-specialization in the field and/or reasonable variations in interpretations. If you have a concern regarding the [facility] interpretation you may contact the [facility] Breast Rental Sales Associate Office at . Narrative 01/23/2017 5:03 PM [...] alter care of Patient. Yes. ?? COMPARISONS: [phone] FINDINGS: The breasts of scattered fiber glandular [...] alter the care of thispatient. STUDIES FROM: [facility] DATES: 01/06/2017 CLINICAL HISTORY: ABNORMAL IMAGIN-LEFT BREAST, CAT 3; ? BX; ? MOREIMAGING; What Modality is the exam? Mammography; Body Part (please add comments asnecessary): LEFT BREAST; I believe a reinterpretation of this exam may alter care of Patient. Yes. COMPARISONS: [phone] FINDINGS: The breasts of scattered fiber glandular [...] ultrasound Please note: The interpretation of the [facility] BreastImaging Radiologist subspecialist may differ from the original radiologists interpretation. This is usually not due to a deficiency of the original interpreting radiologist, rather due to the greater skill level affordedby sub-specialization in the field and/or reasonable variations ininterpretations. If you have a concern regarding the [facility] interpretation [facility] may [facility] at . Christine COTO IMG OUTSIDE INTERP RETATION ORDERABLES documented in this encounter Visit Diagnoses Diagnosis Abnormal finding on breast imaging Other (abnormal) findings on radiological examination of breast documented in this encounter Care Teams Solo Truck Driver Relationship Specialty Start Date End Date Spike Sierra MD [address] [place] [address] PCP - General 01/12/10 01/23/17 documented as of this encounter
--- OUTSIDE RECORDS SUMMARY | 2024-03-07 11:20 | XMS_ITS | Encounter Summary ---
Author Organization [facility] [place] [address] Care Team Providers Care Tailer In Name Role Phone Christine Fuentes Primary Care Provider [phone]- [phone] Reason for Referral * Consultation (Routine) - Closed Specialty Diagnoses / Procedures Referred By Cherie abdul Referred To Contact Hematology and Oncology Diagnoses Breast cancer screening, high risk patient History of breast cancer Rhoda Brumfield APRN [facility] [place] [address] [facility] Hem Onc Office [address] [place] [phone] Referral ID Status Reason Start Date Expiration Date V isits Requested Visits Authorized [id number] Closed Consult, Test & Treat 04/13/2017 04/13/2018 1 1 Reason for Visit * Reason Comments Follow Up Surgery Encounter Details Date Type Department Care Team (Late st Contact Info) Description 04/13/2017 10:45 AM EST Office [place] [phone] Rhoda Brumfield APRN Breast cancer screening, high [...] oncologist and requests a referral to Dr Stakc in [facility]. She declines an appt with genetics [...] breast documented in this encounter Care Teams Tailer In Relationship Specialty Start Date End Date Christine Fuentes PA [address] [place] [address] PCP - General Family Medicine 01/24/17 10/08/19 documented as of this encounter
--- OUTSIDE RECORDS SUMMARY | 2024-03-07 11:20 | XMS_ITS | Encounter Summary ---
[place] [address] Care Team Providers Care Technology Applications Teacher Name Role Phone Spike Sierra MD Primary Care Provider [phone] Reason for Visit * Reason Onset Date Comments Other 03/07/2011 question regardi ng hormone suppository Encounter Details Date Type Department Care Team (Late st Contact Info) Description 03/07/2011 Telephone Radiation Oncology at [address] [phone] Jessica Boyer, RN Other (question [...] calls stating that she recently saw her METER ENGINEER physician, Dr Yasemin Selby, for c/o vaginal [...] she meet with Dr Stack here at [facility] to discuss her question. Will ask medical secretary receptionist to contact pt w/ this appt. documented in this encounter Plan of Treatment Not on file documented as of this encounter Visit Diagnoses Not on filedocumented in this encounter Care Teams Technology Applications Teacher Relationship Specialty Start Date End Date Spike Sierra MD [address] [place] [address] PCP - General 01/12/10 01/23/17 documented as of this encounter
--- OUTSIDE RECORDS SUMMARY | 2024-03-07 11:20 | XMS_ITS | Encounter Summary ---
Author Organization [facility] [place] [address] Care Team Providers Care Mobile Home Lot Utility Worker Name Role Phone Spike Sierra MD Primary Care Provider [phone] Encounter Details Date Type Department Care Team (Late st Contact Info) Description 04/08/2014 1:00 PM EST Ancillary Appointment Hematology Oncology at [address] [phone] [facility] [place] [address] Social History Tobacco Use Types Packs/Day Years Used Date Smoking Tobacco: Former Cigarettes Q uit: 10/19/2011 Sex and Gender Information Value Date Recorded Sex Assigned at Not on file Gender Identity Not on file Sexual Orientation Not on file documented as of this encounter Progress Notes * Denzel Payne RD - 04/08/2014 1:10 PM EST [facility] Dietitian Follow Up Assessment Seen By: Elida Payne, MS, RD, ACTING SECTION CHIEF, LD Reason for visit: Wanting to lose [...] needs: 1.5 - 2 L Food Intake: [place] she fell off the wagon in February [...] calories for about the first , likes [employer] and [employer] and the meal suggestions, but didn't feel [...] if suboptimal in 3-[address] [facility] series from [facility] [...] We reviewed workout dvds, websites with videos ([employer]bazar[employer]com) -- Holding herself accountable. Log/Count calories (using [...] (AND) -- Stop Stress Eating -- Healthy recorder helper seismograph ([employer]) -- pedometer Other Recommendations: Monitoring and Evaluation: Will follow up with Mrs. Marx in one week (s) to re-evaluate. documented in this encounter Plan of Treatment Not on file documented as of this encounter Visit Diagnoses Not on filedocumented in this encounter Care Teams Mobile Home Lot Utility Worker Relationship Specialty Start Date End Date Spike Sierra MD [address] [place] [address] PCP - General 01/12/10 01/23/17 documented as of this encounter
--- OUTSIDE RECORDS SUMMARY | 2024-03-07 11:20 | XMS_ITS | Encounter Summary ---
Author Organization [facility] [address] Care Team Providers Care International Logistics Manager Name Role Phone Spike Sierra MD Primary Care Provider [phone] Encounter Details Date Type Department Care Team (Latest Contact Info) Description 11/08/2010 - 11/08/2010 11:59 PM EDT Hospital Encounter Radiology Library at [facility] [place] [phone] Spike Nicolas MD Pain Discharge Disposition: Home [...] Only Mammo (11/08/2010 12:00 AM EDT) Narrative [facility] - 01/11/2017 4:26 PM EST This exam is for storage only and is auto-finalizing. Spike Nicolas MD G FILM LIBRARY ORD ERABLES [place], [place] documented in this encounter Visit Diagnoses Diagnosis Pain Generalized pain documented in this encounter Care Teams International Logistics Manager Relationship Specialty Start Date End Date Spike Sierra MD [address] [place] [address] PCP - General 01/12/10 01/23/17 documented as of this encounter
--- OUTSIDE RECORDS SUMMARY | 2024-03-07 11:20 | XMS_ITS | Encounter Summary ---
[place] [address] Care Team Providers Care Dermatology Physician Name Role Phone Spike Sierra MD Primary Care Provider Reason for Visit * Reason Comments Radiation Follow-up breast cancer Encounter Details Date Type Department Care Team (Late st Contact Info) Description 12/13/2012 2:00 PM EDT Follow-Up Radiation Oncology at [address] [phone] Yolette Waldrop, MIRIAN Breast cancer (Primary Dx) [...] Dr. Forrester & he referred her to [facility] for stereotactic bx. 01/06/10 limited U/S R [...] Valentine, who does not rec MRI. Prior CIGAR HEAD PEGGER history: w/4 miscarriages. 1st child @ age [...] Surveillance: ----11/21/11 B mmg, done @ [facility], requested by Dr. 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 [...] site documented in this encounter Care Teams Dermatology Physician Relationship Specialty Start Date End Date Spike Sierra MD [address] [place] [address] PCP - General 01/12/10 01/23/17 documented as of this encounter
--- OUTSIDE RECORDS SUMMARY | 2024-03-07 11:21 | XMS_ITS | Encounter Summary ---
Author Organization [facility] [place] [address] Care Team Providers Care Campus Chaplain Name Role Phone Spike Sierra MD Primary Care Provider Encounter Details Date Type Department Care Team (Late st Contact Info) Description 03/08/2010 10:00 AM EST Office Visit Radiation Oncology at [address] [phone] Ema Fair MD [facility] [place] [address] Discharge Disposition: Home Social History Tobacco Use [...] on filedocumented in this encounter Care Teams Campus Chaplain Relationship Specialty Start Date End Date Spike Sierra MD [address] [place] [address] PCP - General 01/12/10 01/23/17 documented as of this encounter
--- OUTSIDE RECORDS SUMMARY | 2024-03-07 11:21 | XMS_ITS | Encounter Summary ---
Author Organization [facility] [place] [address] Care Team Providers Care Book Critic Name Role Phone Unavailable Primary Care Provider Unavailabl e Encounter Details Date Type Department Care Team (Latest Contact Info) Description 12/03/2009 - 12/03/2009 11:59 PM EDT Hospital Encounter Radiology Library at [facility] [place] [phone] Spike Nicolas MD Discharge Disposition: Home Social [...] MD IMG FILM LIBRARY ORD ERABLES [place] documented in this encounter Visit Diagnoses Not on filedocumented in this encounter
--- OUTSIDE RECORDS SUMMARY | 2024-03-07 11:21 | XMS_ITS | Encounter Summary ---
Author Organization [facility] [place] [address] Care Team Providers Care Supervisor Die Casting Name Role Phone Spike Sierra MD Primary Care Provider Encounter Details Date Type Department Care Team (Late st Contact Info) Description 04/20/2010 8:00 AM EST Follow-Up Radiation Oncology at [address] [phone] Ema Fair MD [facility] [place] [address] Social History Tobacco Use Types Packs/Day Years Used Date Smoking Tobacco: Never Assessed Sex and Gender Information Value Date Recorded Sex Assigned at Not on file Gender Identity Not on file Sexual Orientation Not on file documented as of this encounter Plan of Treatment Not on file documented as of this encounter Visit Diagnoses Not on filedocumented in this encounter Care Teams Supervisor Die Casting Relationship Specialty Start Date End Date Spike Sierra MD [address] [place], [place] [address] PCP - General 01/12/10 01/23/17 documented as of this encounter
--- OUTSIDE RECORDS SUMMARY | 2024-03-07 11:21 | XMS_ITS | Encounter Summary ---
Author Organization [facility] [place] [address] Care Team Providers Care Chemical Dependency Professional Name Role Phone Unknown Primary Care Provider Unavailabl e Encounter Details Date Type Department Care Team (Late st Contact Info) Description 01/06/2010 [place] [address] Anita Valentine MD [facility] [place] [address] Social History Tobacco Use Types Packs/Day Years [...] 11:19 AM EST) Surgical Pathology Report [id number] ? Location: OPW The signing pathologist has [...] cm ? to 4.0 x 0.5 cm. ??Horton-yellow, hemorrhagic, ? fibrofatty. Sections/Proces sing: ?? Submitted [...] in rendering the final pathologic diagnosis. [facility] 01/06/2010 11:1 9 AM EST Anita Valentine MD PATHOLOGY/CYTOLOGY O JUNG Performing Organization Address City/State/[facility] Co de Phone Number [facility] documented in this encounter Visit Diagnoses Not on filedocumented in this encounter Care Teams Chemical Dependency Professional Relationship Specialty Start Date End Date Unknown None PCP - General 10/09/19 documented as of this encounter
--- OUTSIDE RECORDS SUMMARY | 2024-03-07 11:21 | XMS_ITS | Encounter Summary ---
Author Organization [facility] [place] [address] Care Team Providers Care Material Specialist Name Role Phone Spike Sierra MD Primary Care Provider Encounter Details Date Type Department Care Team (Late st Contact Info) Description 04/27/2010 8:00 AM EST Follow-Up Radiation Oncology at [address] [phone] Ema Fair MD [facility] [place] [address] Social History Tobacco Use Types Packs/Day Years Used Date Smoking Tobacco: Never Assessed Sex and Gender Information Value Date Recorded Sex Assigned at Not on file Gender Identity Not on file Sexual Orientation Not on file documented as of this encounter Plan of Treatment Not on file documented as of this encounter Visit Diagnoses Not on filedocumented in this encounter Care Teams Material Specialist Relationship Specialty Start Date End Date Spike Sierra MD [address] [place], [place] [address] PCP - General 01/12/10 01/23/17 documented as of this encounter
--- OUTSIDE RECORDS SUMMARY | 2024-03-07 11:21 | XMS_ITS | Encounter Summary ---
[place] [address] Care Team Providers Care Workers Compensation Specialist Name Role Phone Unavailable Primary Care Provider Unavailabl e Encounter Details Date Type Department Care Team (Late st Contact Info) Description 01/06/2010 10:00 AM EST Procedure visit [place] [address] Social History Tobacco Use Types Packs/Day Years [...]
--- OUTSIDE RECORDS SUMMARY | 2024-03-07 11:21 | XMS_ITS | Encounter Summary ---
Author Organization [facility] [place] [address] Care Team Providers Care Insurance Licensing Supervisor Name Role Phone Spike Sierra MD Primary Care Provider [phone] Encounter Details Date Type Department Care Team (Late st Contact Info) Description 04/06/2010 1:30 PM EST Follow-Up Radiation Oncology at [address] [phone] Ema Fair MD [facility] [place] [address] Social History Tobacco Use Types Packs/Day Years Used Date Smoking Tobacco: Never Assessed Sex and Gender Information Value Date Recorded Sex Assigned at Not on file Gender Identity Not on file Sexual Orientation Not on file documented as of this encounter Plan of Treatment Not on file documented as of this encounter Visit Diagnoses Not on filedocumented in this encounter Care Teams Insurance Licensing Supervisor Relationship Specialty Start Date End Date Spike Sierra MD [address] [place], [place] [address] PCP - General 01/12/10 01/23/17 documented as of this encounter
--- OUTSIDE RECORDS SUMMARY | 2024-03-07 11:21 | XMS_ITS | Encounter Summary ---
Author Organization [facility] [place] [address] Care Team Providers Care Dumper Bulk System Name Role Phone Unavailable Primary Care Provider Unavailabl e Encounter Details Date Type Department Care Team (Latest Contact Info) Description 12/04/2009 - 12/04/2009 12:04 AM EDT Hospital Encounter Radiology Library at [facility] [place] [phone] Spike Nicolas MD Discharge Disposition: Home Social [...] MD IMG FILM LIBRARY ORD ERABLES [place] documented in this encounter Visit Diagnoses Not on filedocumented in this encounter
--- OUTSIDE RECORDS SUMMARY | 2024-03-07 11:21 | XMS_ITS | Encounter Summary ---
Author [place] [address] Care Team Providers Care Straddle Bug Driver Name Role Phone Spike Sierra MD Primary Care Provider Encounter Details Date Type Department Care Team (Late st Contact Info) Description 03/08/2010 9:30 AM EST Office [place] [address] Rad NurseSt Christianson Social History Tobacco Use [...] on filedocumented in this encounter Care Teams Straddle Bug Driver Relationship Specialty Start Date End Date Spike Sierra MD [address] [place] [address] PCP - General 01/12/10 01/23/17 documented as of this encounter
--- OUTSIDE RECORDS SUMMARY | 2024-03-07 11:21 | XMS_ITS | Encounter Summary ---
Author Organization [facility] [place] [address] Care Team Providers Care Hr Specialist Name Role Phone Spike Sierra MD Primary Care Provider [phone] Encounter Details Date Type Department Care Team (Late st Contact Info) Description 01/06/2010 [place] [address] Kwasi Valentine MD [facility] [address] Social History Tobacco Use Types Packs/Day Years [...] AM EST) Surgical Pathology Report ? [facility] ? Provider: ?? KWASI VALENTINE ?Pt. Name: ?? CECILIA MARX ? Acc #: ?[id number] ?Pt. ? Col Date: ?? 01/06/2010 ?/Sex: [...] 0.6 cm ?to 4.0 x 0.5 cm. ??Front Royal-yellow, hemorrhagic, ?fibrofatty. ? Sections/Proces sing: ?? Submitted in (A2-A3). ??(T3) ??aje/SNS ? ---Clinical Information--- ? Specimen Submitted: ? A - Right breast, stereo bx ? Clinical History: ? [facility] ? Provider: ?? KWASI VALENTINE ?Pt. Name: ?? CECILIA MARX ? Acc #: ?[id number] ?Pt. ? Col Date: ?? 01/06/2010 ?/Sex: ?1955,(54 years),Female ? Rec Date: ?? 01/06/2010 ?LOC: ?[facility] ? SURGICAL PATHOLOGY ? Calcs, coarse, low suspicion ? Clinical Diagnosis: ? Fat necrosis, FA change, CA unlikely CERNER MILLENNIUM 01/06/2010 11:1 9 AM EST Kwasi Valentine MD PATHOLOGY/CYTOLOGY O RDERABLES [facility] documented in this encounter Visit Diagnoses Not on filedocumented in this encounter Care Teams Hr Specialist Relationship Specialty Start Date End Date Spike Sierra MD [address] [place] [address] PCP - General 01/12/10 01/23/17 documented as of this encounter
--- OUTSIDE RECORDS SUMMARY | 2024-03-07 11:21 | XMS_ITS | Encounter Summary ---
[place] [address] Care Team Providers Care Crime Victim Specialist Name Role Phone Unavailable Primary Care Provider Unavailabl e Encounter Details Date Type Department Care Team (Late st Contact Info) Description 01/06/2010 9:10 AM EST Procedure [place] [address] Social History Tobacco Use Types Packs/Day Years [...]
--- OUTSIDE RECORDS SUMMARY | 2024-03-07 11:21 | XMS_ITS | Encounter Summary ---
[place] [address] Care Team Providers Care Certified Lactation Counselor Name Role Phone Spike Sierra MD Primary Care Provider [phone] Encounter Details Date Type Department Care Team (Late st Contact Info) Description 03/09/2010 8:30 AM EST Follow-[place] [address] Rad NurseSt Christianson Social History Tobacco Use [...] on filedocumented in this encounter Care Teams Certified Lactation Counselor Relationship Specialty Start Date End Date Spike Sierra MD [address] [place] [address] PCP - General 01/12/10 01/23/17 documented as of this encounter
--- OUTSIDE RECORDS SUMMARY | 2024-03-07 11:21 | XMS_ITS | Encounter Summary ---
[place] [address] Care Team Providers Care Meat Products Demonstrator Name Role Phone Spike Sierra MD Primary Care Provider [phone] Encounter Details Date Type Department Care Team (Late st Contact Info) Description 03/09/2010 9:00 AM EST Initial consult Hematology Oncology at [address] [phone] Social History Tobacco Use Types Packs/Day Years Used Date Smoking Tobacco: Never Assessed Sex and Gender Information Value Date Recorded Sex Assigned at Not on file Gender Identity Not on file Sexual Orientation Not on file documented as of this encounter Plan of Treatment Not on file documented as of this encounter Visit Diagnoses Not on filedocumented in this encounter Care Teams Meat Products Demonstrator Relationship Specialty Start Date End Date Spike Sierra MD [address] [place] [address] PCP - General 01/12/10 01/23/17 documented as of this encounter
--- OUTSIDE RECORDS SUMMARY | 2024-03-07 11:21 | XMS_ITS | Encounter Summary ---
Author Organization [facility] [place] [address] Care Team Providers Care Executive Asst Name Role Phone Spike Sierra MD Primary Care Provider Encounter Details Date Type Department Care Team (Latest Contact Info) Description 03/09/2010 9:00 AM EST Procedure visit Radiation Oncology at [address] [phone] Ema Fair MD [facility] [place] [address] Discharge Disposition: Home Social History Tobacco Use [...] filedocumented in this encounter Care Teams Executive Asst Relationship Specialty Start Date End Date Spike Sierra MD [address] [place] [address] PCP - General 01/12/10 01/23/17 documented as of this encounter
--- OUTSIDE RECORDS SUMMARY | 2024-03-07 11:21 | XMS_ITS | Encounter Summary ---
Author Organization [facility] [place] [address] Care Team Providers Care Hotel And Dining Room Cashier Name Role Phone Spike Sierra MD Primary Care Provider Encounter Details Date Type Department Care Team (Late st Contact Info) Description 05/04/2010 8:00 AM EDT Office Visit Radiation Oncology at [address] [phone] Ema Fair MD [facility] [place] [address] Discharge Disposition: Home Social History Tobacco Use [...] filedocumented in this encounter Care Teams Hotel And Dining Room Cashier Relationship Specialty Start Date End Date Spike Sierra MD [address] [place], [place] [address] PCP - General 01/12/10 01/23/17 documented as of this encounter
--- OUTSIDE RECORDS SUMMARY | 2024-03-07 11:21 | XMS_ITS | Encounter Summary ---
Author Organization [facility] [place] [address] Care Team Providers Care Hogshead Wrecker Name Role Phone Spike Sierra MD Primary Care Provider Encounter Details Date Type Department Care Team (Late st Contact Info) Description 04/14/2010 7:15 AM EST Follow-Up Radiation Oncology at [address] [phone] Ema Fair MD [facility] [place] [address] Social History Tobacco Use Types Packs/Day Years Used Date Smoking Tobacco: Never Assessed Sex and Gender Information Value Date Recorded Sex Assigned at Not on file Gender Identity Not on file Sexual Orientation Not on file documented as of this encounter Plan of Treatment Not on file documented as of this encounter Visit Diagnoses Not on filedocumented in this encounter Care Teams Hogshead Wrecker Relationship Specialty Start Date End Date Spike Sierra MD [address] [place], [place] [address] PCP - General 01/12/10 01/23/17 documented as of this encounter
--- OUTSIDE RECORDS SUMMARY | 2024-03-07 11:21 | XMS_ITS | Encounter Summary ---
Author Organization [facility] [place] [address] Care Team Providers Care Title Clerk Name Role Phone Spike Sierra MD Primary Care Provider Encounter Details Date Type Department Care Team (Late st Contact Info) Description 03/31/2010 11:00 AM EST Follow-[place] [address] Ema Fair MD [facility] [place] [address] Social History Tobacco Use Types Packs/Day Years Used Date Smoking Tobacco: Never Assessed Sex and Gender Information Value Date Recorded Sex Assigned at Not on file Gender Identity Not on file Sexual Orientation Not on file documented as of this encounter Plan of Treatment Not on file documented as of this encounter Visit Diagnoses Not on filedocumented in this encounter Care Teams Title Clerk Relationship Specialty Start Date End Date Spike Sierra MD [address] [place] [address] PCP - General 01/12/10 01/23/17 documented as of this encounter
--- OUTSIDE RECORDS SUMMARY | 2024-03-07 11:21 | XMS_ITS | Encounter Summary ---
[place] [address] Care Team Providers Care Residential Insurance Inspector Name Role Phone Spike Sierra MD Primary Care Provider Encounter Details Date Type Department Care Team (Late st Contact Info) Description 03/23/2010 8:00 AM EST Follow-[place] [address] Colin Cotto MD Social History Tobacco Use [...] filedocumented in this encounter Care Teams Residential Insurance Inspector Relationship Specialty Start Date End Date Spike Sierra MD [address] [place] [address] PCP - General 01/12/10 01/23/17 documented as of this encounter
--- OUTSIDE RECORDS SUMMARY | 2024-03-07 11:21 | XMS_ITS | Encounter Summary ---
Author Organization [facility] [place] [address] Care Team Providers Care Equip Tech Name Role Phone Spike Sierra MD Primary Care Provider Reason for Visit * Reason Comments Breast Cancer f/u Encounter Details Date Type Department Care Team (Late st Contact Info) Description 06/14/2010 11:00 AM EDT Follow-Up Radiation Oncology at [address] [phone] Ema Fair MD [facility] [place] [address] DCIS (ductal carcinoma in situ) of breast [...] in this encounter Progress Notes * Nathaniel, Hydroelectric Station Operator Chief - 08/24/2010 7:39 PM EDT * Ema [...] breast documented in this encounter Care Teams Equip Tech Relationship Specialty Start Date End Date Spike Sierra MD [address] [place] [address] PCP - General 01/12/10 01/23/17 documented as of this encounter
--- OUTSIDE RECORDS SUMMARY | 2024-03-07 11:21 | XMS_ITS | Encounter Summary ---
Author Organization [facility] [place] [address] Care Team Providers Care Clinic Cma Name Role Phone Unavailable Primary Care Provider Unavailabl e Encounter Details Date Type Department Care Team (Latest Contact Info) Description 12/04/2009 12:05 AM EDT - 12/04/2009 11:59 PM EDT Hospital Encounter Radiology Library at [facility] [place] [address] [phone] Spike Nicolas MD Discharge Disposition: Home Social [...] Nicolas MD IMG FILM LIBRARY ORD ERABLES [facility] [place] documented in this encounter Visit Diagnoses Not on filedocumented in this encounter
== END 2024-03-07 11:17 | disposition home or self-care (01) ==
LOC: NCHCN 11:16
PROVIDERS: PCP Family Medicine; Visit Provider Family Medicine
DX: E03.9 Hypothyroidism, unspecified (principal)
CPT/HCPCS: 80048; 83735; 84443; 86140

== ENCOUNTER 2024-04-26 21:49 | Outpatient (REF) | payer MEDICARE, SELFPAY ==
[2024-04-26 23:12] LABS: Anion Gap 11.4 mmol/L (3-11); BUN 25 mg/dL (7-18); CO2 25.6 mmol/L (21.0-32.0); Calcium 9.9 mg/dL (8.5-10.1); Calculated LDL 138 mg/dL (<100); Chloride 107 mmol/L (98-107); Cholesterol 264 mg/dL (<200); Estimated GFR 61.36 (mL/min/1.73m2); Glucose 102 mg/dL (74-106); HDL Cholesterol 55 mg/dL (>or=50); Potassium 4.5 mmol/L (3.5-5.1); Sodium 144 mmol/L (136-145); Triglyceride 355 mg/dL (<150)
== END 2024-04-26 21:50 | disposition home or self-care (01) ==
LOC: NCHCN 21:49
PROVIDERS: PCP Family Medicine; Visit Provider Family Medicine
DX: I10 Essential (primary) hypertension (principal); E78.5 Hyperlipidemia, unspecified
CPT/HCPCS: 80048; 80061

== ENCOUNTER 2024-07-05 19:46 | Outpatient (REF) | payer MEDICARE, SELFPAY ==
[2024-07-05 14:40] LABS: Abs Immature Grans 0.02 10^3/uL (0.0-0.06); Absolute Basophil Count 0.05 10^3/uL (0.0-0.2); Absolute Eosinophil Count 0.06 10^3/uL (0.0-0.7); Absolute Lymphocyte Count 2.35 10^3/uL (1.2-3.4); Absolute Monocyte Count 0.57 10^3/uL (0.1-0.8); Absolute Neutrophil Count 5.13 10^3/uL (1.2-6.7); Basophils % 0.6 %; Eosinophils % 0.7 %; HCT 39.1 % (36.0-46.0); HGB 12.9 g/dL (11.2-15.7); Immature Grans % 0.2 %; Lymphocytes % 28.7 %; MCH 30.2 pg (27.0-33.0); MCV 92 fL (80-95); MPV 11.7 fL (8.0-11.0); Neutrophils % 62.8 %; Platelet Count 173 10^3/uL (130-400); RBC 4.27 10^6/uL (3.93-5.22); RDW 13.4 % (11.7-14.6); RDW-SD 46.1 fL; WBC 8.18 10^3/uL (4.4-10.8)
== END 2024-07-05 19:47 | disposition home or self-care (01) ==
LOC: LBN 19:46
PROVIDERS: PCP Family Medicine; Visit Provider Physician Assistant Medical
DX: R10.32 Left lower quadrant pain (principal)
CPT/HCPCS: 85025

== ENCOUNTER 2024-08-05 18:23 | Outpatient (REF) | payer MEDICARE, SELFPAY ==
[2024-08-05 15:55] LABS: ALT 43 U/L (14-59); AST 29 U/L (15-37); Albumin 3.9 g/dL (3.4-5.0); Alkaline Phosphatase 103 U/L (46-116); Anion Gap 10.3 mmol/L (3-11); BUN 26 mg/dL (7-18); Bilirubin, Total 0.3 mg/dL (0.2-1.0); CO2 27.7 mmol/L (21.0-32.0); Calcium 9.8 mg/dL (8.5-10.1); Chloride 104 mmol/L (98-107); Estimated GFR 61.36 (mL/min/1.73m2); Ferritin 143 ng/mL (8-252); Glucose 95 mg/dL (74-106); Magnesium 2.1 mg/dL (1.8-2.4); Potassium 4.4 mmol/L (3.5-5.1); Sodium 142 mmol/L (136-145); Total Protein 7.6 g/dL (6.4-8.2); Vitamin D 25 Total 35 ng/mL (30-100)
[2024-08-05 16:50] LABS: Iron 94 ug/dL (50-170); Total Iron Binding Capacity 317 ug/dL (250-450); Transferrin Sat 30 % (15-50)
== END 2024-08-05 18:24 | disposition home or self-care (01) ==
LOC: NCHCN 18:23
PROVIDERS: PCP Family Medicine; Visit Provider Family Medicine
DX: K76.0 Fatty (change of) liver, not elsewhere classified (principal); E55.9 Vitamin D deficiency, unspecified
CPT/HCPCS: 80053; 82306; 82728; 83540; 83550; 83735

== ENCOUNTER 2024-10-29 10:21 | Emergency (ER) | payer MEDICARE, SELFPAY ==
[2024-10-29] VITALS (31 sets, daily range): BP systolic 112–157; BP diastolic 73–118; PULSE 65–82; RESP 12–26; TEMP 36.7; O2SAT 93–99
--- NOTE | 2024-10-29 10:30 | RT.EKG_ITS ---
APPROVED REPORT Exam: Resting ECG Reason for Exam: Chest pain, near syncope Patient Location: E HR:72 bpm ECG Measurements Heart Rate 72 AXIS GA 163 P 46 QRSd 86 QRS 12 QT 376 T 14 QTc 413 Conclusion Sinus rhythm...normal P axis, V-rate 60- 99 No STEMI
[2024-10-29 11:15] LABS: Abs Immature Grans 0.01 10^3/uL (0.0-0.06); HCT 38.5 % (36.0-46.0); HGB 12.9 g/dL (11.2-15.7); Immature Grans % 0.2 %; MCH 30.4 pg (27.0-33.0); MCHC 33.5 % (32.0-36.0); MCV 91 fL (80-95); MPV 11.0 fL (8.0-11.0); Platelet Count 211 10^3/uL (130-400); RBC 4.24 10^6/uL (3.93-5.22); RDW 12.9 % (11.7-14.6); RDW-SD 42.5 fL; WBC 5.21 10^3/uL (4.4-10.8)
--- NOTE | 2024-10-29 11:27 | DI.CT_ITS ---
Exam(s) CT THORAX ABD/PEL CTA EXAM: CT THORAX ABD/PEL CTA CLINICAL HISTORY: Chest pain radiating to the back. TECHNIQUE: Imaging Protocol: Axial computed tomography images with coronal and sagittal reformatted images were created and reviewed CONTRAST MATERIAL: Intravenous: Omnipaque 350 Contrast volume:70 mL Oral: None COMPARISON: CT CT ABDOMEN PELVIS W from 02/02/2024 FINDINGS: CHEST: AORTA: The ascending thoracic aorta diameter is upper normal. No significant aneurysm. No dissection. Diameter of the aortic arch and descending thoracic aorta are upper normal and without evidence of dissection. There is no evidence of abdominal aortic aneurysm nor significant atherosclerotic disease in the abdominal aorta and there is no significant stenosis at the takeoff points of the main vessels off of the abdominal aorta. There is no significant stenosis nor aneurysmal dilatation of the iliac vessels. No dissection of the iliac vessels. LUNGS: No infiltrates nor pleural effusions nor ominous pulmonary nodules. No findings in trachea and mainstem bronchi.. MEDIASTINUM: There is no hilar nor mediastinal adenopathy. CARDIAC: Heart size is normal. There is no pericardial effusion. OSSEOUS: There is compression fracture the of superior endplate of T10 which was not evident on prior CT scan of January 2024. No significant retropulsion of the posterior cortex evident at this level. No other osseous findings. ABDOMEN: There is no ascites. LIVER: There are no focal hepatic lesions nor dilatation of intrahepatic ducts. GALLBLADDER/BILIARY: No obvious gallbladder pathology. CBD is not dilated. PANCREAS: No evidence of pancreatic mass nor dilatation of the pancreatic duct. SPLEEN: Spleen is not enlarged. There are no intrasplenic lesions. Splenic and portal veins are patent. ADRENALS: There are no significant adrenal masses. KIDNEYS: Small benign cyst noted in the inferior pole of the right kidney. No calculi nor hydronephrosis. No solid renal masses. ABDOMINAL AORTA: The abdominal aorta is not enlarged. LYMPH NODES: There is no retroperitoneal nor para-aortic adenopathy. No obvious mesenteric masses. ABDOMINAL WALL: No evidence of significant anterior abdominal wall hernia. GI: There is no evidence of bowel obstruction, free air, nor abscess. PELVIS: LYMPH NODES: There is no intrapelvic nor inguinal adenopathy. GI: No evidence of appendicitis.There is sigmoid diverticuli but no evidence of acute diverticulitis. URINARY BLADDER: No calculi nor masses evident REPRODUCTIVE: Uterus size normal. Some dilated veins are noted in the left adnexa, probably mild element of pelvic congestion syndrome. No free fluid. No abnormal adnexal masses. OSSEOUS: No significant osseous lesions. IMPRESSION: 1. No evidence of aortic aneurysm nor aortic dissection, as per request. 2. There is a compression fracture at superior endplate of T10 which was not evident on CT scan of January 2024. There is approximately 30 percent height loss. There is mild posterior bulging of the cortex but no prominent retropulsion and no significant central canal stenosis at this level. Report called by myself to ER 10/29/2024 at 1:35 p.m. RADIATION DOSE DELIVERED: 734.64mGy.cm Total DLP DATA REPOSITORY: All CT scans at this facility are submitted to the National Radiology Data Registry (NRDR) Dose Index Registry (DIR) with the [employer] (ACR). RADIATION OPTIMIZATION: All CT scans at this facility use at least one of these dose optimization techniques: automated exposure control; mA and/or kV adjustment per patient size (includes targeted exams where dose is matched to clinical indication); or iterative reconstruction.
--- NOTE | 2024-10-29 11:30 | ED.GENADUL_ITS ---
Discharge Plan Disposition Patient Disposition: Home Discharge Details Clinical Impression: Atypical chest pain, Impaired concentration, Insomnia, Compression fracture of T10 vertebra Primary Care Provider: Treva De Jesus ED Provider: Gus Cabrera Home Meds and New Rx's Prescriptions: New Quviviq 25 mg tablet 25 mg PO QHS Qty: 5 0RF Continued ketoconazole-hydrocortisone 2-2.5 % cream 1 applic topical DAILY PRN estradiol 0.01 % (0.1 mg/gram) cream 1 appful vaginal .COMPLEX Qty: 42.5 5RF Rx Instructions: 1 appful vaginal daily for 2 weeks then twice weekly escitalopram oxalate [Lexapro] 10 MG tablet 10 mg PO DAILY multivitamin [Daily Multi-Vitamin] 1 EACH tablet 1 ea PO DAILY fish oil-dha-epa 1 EACH capsule 1 ea PO DAILY Patient Comments: stopped 11/15/18 magnesium citrate 100 MG tablet 200 mg PO DAILY cholecalciferol (vitamin D3) [Vitamin D3] 50 mcg (2,000 unit) capsule 4,000 unit PO DAILY Patient Comments: drops hydrocortisone 2.5 % cream 1 applic topical BID PRN levothyroxine 75 mcg tablet 100 mcg PO DAILY escitalopram oxalate 10 mg tablet 10 mg PO DAILY estradiol 0.01 % (0.1 mg/gram) cream 1 g vaginal QWEEK bupropion HCl [Wellbutrin] 75 MG tablet 100 mg PO DAILY olmesartan [Benicar] 5 mg tablet 10 mg PO DAILY Discharge Instructions Instructions: Insomnia, How to Keep Track of Your Sleep, Chest Pain, Adult ED Additional Instructions: Please follow-up with your primary care provider regarding your visit to the emergency department today. Be sure to discuss results of all test performed here today to include radiology, and laboratory testing as well as results for any pending cultures. Should your symptoms worsen, or if you develop new concerning symptoms, please return immediately emergency department for further evaluation. Discharge Data Discharge Date/Time-TO BE ENTERED AT DEPARTURE: 10/29/24 14:32 HPI General Date/Time Provider Initiated Documentation: 10/29/24 10:44 . HPI Narrative: MDM/Narrative: 69-year-old female with chest pain, lightheadedness, confusion, and disorientation. History of double mastectomy in 2018 and fatty liver disease. Recent cessation of trazodone for insomnia. Differential Diagnosis: - Cardiac issues: EKG normal, atypical presentation less likely cardiac cause. Plan: Blood work, imaging of aorta, f/u outpatient - Neurological issues: Disorientation and confusion. Plan: Imaging of brain. - Myofascial pain syndrome: Tenderness and pain in neck muscles. Plan: Dry needling with numbing medication, referral to physical therapist. - Sleep disturbances: Poor sleep quality, insomnia. Plan: Sleep hygiene, me ditation, f/u outpatient ED Course: - EKG normal. - Blood work conducted. - Imaging of aorta and brain ordered. - Dry needling with numbing medication administered. Results reviewed. Lab work is unrevealing. Imaging shows a T10 compression fracture, which is asymptomatic at this time. Otherwise no acute findings on chest abdomen pelvis or head CTs. Results shared with him discussed with the patient who is agreeable to plan to follow-up with her provider for treatment of osteoporosis to prevent future asymptomatic compression fracture, as well as her chronic insomnia. Will trial patient on 5 days of Quviviq 25 mg p.o. nightly. PROCEDURE: Trigger Point Injection. ANESTHESIA: 4 ml of 1% Lidocine with epinephrine was injected subcutaneously into 2 areas of palpable spasm in the bilateral traps COMPLICATIONS: None. DESCRIPTION OF PROCEDURE: The procedure risks, hazards and alternatives were discussed with the patient and a proper consent was obtained. The area over the myofascial spasm was prepped with alcohol utilizing sterile technique. After isolating it between two palpating fingertips a 30-gauge needle was placed in the center of the myofascial spasms and a negative aspiration was performed. Then 1 cc of 1% lidocaine with epinephrine was injected into each trigger point. The patient tolerated the procedure well without any apparent difficulties or complications. Clinical Impression: - Myofascial pain syndrome - Insomnia Disposition: - Discharge: Home, no immediate life-threatening conditions identified. Return if symptoms worsen or new symptoms develop. - Follow-Up: Referral to physical therapist for muscle strengthening exercises. This document was created with assistance from [employer]. The patient consented to its use. HPI: The patient is a 69-year-old female with a history of bilateral mastectomy in 2018, presenting with thoracic pain. She reports experiencing a sensation of heaviness, presyncope, confusion, and concentration impairment since early summer. The thoracic pain is atypical, migratory, and has been increasing in both intensity and frequency, occurring up to five times daily, with each episode lasting a few seconds. These episodes are accompanied by nausea. Last week, she experienced disorientation while driving for 40 minutes. She denies palpitations or diaphoresis. She expresses concern regarding her aorta, given her mother's sudden from aortic rupture at the same age. The patient is struggling with insomnia, previously managed with trazodone, w hich has since been discontinued. She currently sleeps 2-3 hours per night. A sleep study revealed mild obstructive sleep apnea, and CPAP therapy has been ineffective. She has not attempted THC or CBD for sleep management. She is receiving hospice spiritual care coordinator for cervical pain without significant relief. 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 The patient has a diagnosis of hepatic steatosis and reports minimal alcohol consumption. She is a former smoker, having last smoked cigars one month ago. She has a history of anxiety and depression and is under the care of a counselor. She also reports experiencing nocturnal blurry vision and difficulty concentrating. PAST SURGICAL HISTORY: Bilateral mastectomy in 2018. ROS: Negative besides as mentioned above Exam: Vital signs: Reviewed. General Appearance: Alert and oriented. No acute distress. HEENT: NCAT, EOMI, not icteric. External ears normal. No rhinorrhea. Moist mucous membranes. Neck: Tenderness and significant tension in posterior neck muscles bilaterally. There is a buffalo hump present Respiratory: No Respiratory distress. No tachypnea. Cardiovascular: RRR, no edema. Gastrointestinal: Soft, nondistended, No rebound tenderness. Back: No midline tenderness to palpation or palpable step-offs of the C/T/L spine. Musculoskeletal: Tenderness in posterior neck muscles bilaterally, consistent with myofascial pain syndrome. Skin: Warm and dry, no rash. Neurological: Normal Gait, Grossly intact. Psychiatric: Appropriate for situation. Rhythm: NSR Rate: 72 [place]: Normal axis Intervals: Normal intervals Other findings: No acute ST segment or T wave changes to suggest acute ischemia. Labs: Laboratory Tests Range/Units 10/29/24 10/29/24 10/29/24 11:02 11:30 12:22 WBC (4.4-10.8) 10^3/uL 5.21 RBC (3.93-5.22) 10^6/uL 4.24 Hgb (11.2-15.7) g/dL 12.9 Hct (36.0-46.0) % 38.5 MCV (80-95) fL 91 MCH (27.0-33.0) pg 30.4 MCHC (32.0-36.0) % 33.5 RDW (11.7-14.6) % 12.9 Plt Count (130-400) 10^3/uL 211 MPV (8.0-11.0) fL 11.0 Immature Gran % % 0.2 Neutrophils % % 49.6 Lymphocytes % % 42.6 Monocytes % % 5.8 Eosinophils % % 1.2 Basophils % % 0.6 Nucleated RBC % (0.0-0.3) % 0.0 Absolute Neutrophils (1.2-6.7) 10^3/uL 2.59 Absolute Lymphocytes (1.2-3.4) 10^3/uL 2.22 Absolute Monocytes (0.1-0.8) 10^3/uL 0.30 Absolute Eosinophils (0.0-0.7) 10^3/uL 0.06 Absolute Basophils (0.0-0.2) 10^3/uL 0.03 PT (9.1-11.1) sec 9.7 INR (0.9-1.1) 1.0 APTT (20.6-30.2) sec 23.2 D-Dimer (<500) ng/mlFEU 501 H Sodium Cancelled 141 Potassium Cancelled 4.1 Chloride Cancelled 106 Carbon Dioxide Cancelled 26.4 Anion Gap Cancelled 8.6 BUN Cancelled 22 H Creatinine Cancelled 0.9 Est GFR (CKD-EPI 2020) Cancelled 69.64 Glucose Cancelled 101 Calcium Cancelled 9.7 Magnesium Cancelled 2.1 Total Bilirubin Cancelled 0.3 AST Cancelled 24 ALT Cancelled 32 Alkaline Phosphatase Cancelled 65 Troponin I Cancelled 5 5 NT-Pro-B Natriuret Pep Cancelled 35 Total Protein Cancelled 7.4 Albumin Cancelled 3.7 Radiology: Exam(s) CT HEAD WO EXAM: CT HEAD WO CLINICAL HISTORY: Headache. TECHNIQUE: Imaging Protocol: Axial computed tomography images with coronal and sagittal reformatted images were created and reviewed COMPARISON: CT CT HEAD WO from 10/29/2019 FINDINGS: There are no skull fractures. There is no fluid in the visualized paranasal sinuses. There is no evidence of intracranial hemorrhage, mass effect, or shift of midline structures. There are no extra-axial fluid collections. The ventricles are not enlarged or shifted and there is no blood within the ventricular system nor within the basal cisterns. Mild area of subtle hypodensity in the left periventricular white matter is unchanged from CT scan of 2019. IMPRESSION: As above but no acute intracranial findings on this non few CT scan of the brain and no significant change compared to the prior CT scan of October 2019. Called to ER 10/29/2024 at 1:25 p.m. RADIATION DOSE DELIVERED: 852.62mGy.cm Total DLP DATA REPOSITORY: All CT scans at this facility are submitted to the National Radiology Data Registry (NRDR) Dose Index Registry (DIR) with the [employer] (ACR). RADIATION OPTIMIZATION: All CT scans at this facility use at least one of these dose optimization techniques: automated exposure control; mA and/or kV adjustment per patient size (includes targeted exams where dose is matched to clinical indication); or iterative reconstruction. Exam(s) CT THORAX ABD/PEL CTA EXAM: CT THORAX ABD/PEL CTA CLINICAL HISTORY: Chest pain radiating to the back. TECHNIQUE: Imaging Protocol: Axial computed tomography images with coronal and sagittal reformatted images were created and reviewed CONTRAST MATERIAL: Intravenous: Omnipaque 350 Contrast volume:70 mL Oral: None COMPARISON: CT CT ABDOMEN PELVIS W from 02/02/2024 FINDINGS: CHEST: AORTA: The ascending thoracic aorta diameter is upper normal. No significant aneurysm. No dissection. Diameter of the aortic arch and descending thoracic aorta are upper normal and without evidence of dissection. There is no evidence of abdominal aortic aneurysm nor significant atherosclerotic disease in the abdominal aorta and there is no significant sten osis at the takeoff points of the main vessels off of the abdominal aorta. There is no significant stenosis nor aneurysmal dilatation of the iliac vessels. No dissection of the iliac vessels. LUNGS: No infiltrates nor pleural effusions nor ominous pulmonary nodules. No findings in trachea and mainstem bronchi.. MEDIASTINUM: There is no hilar nor mediastinal adenopathy. CARDIAC: Heart size is normal. There is no pericardial effusion. OSSEOUS: There is compression fracture the of superior endplate of T10 which was not evident on prior CT scan of January 2024. No significant retropulsion of the posterior cortex evident at this level. No other osseous findings. ABDOMEN: There is no ascites. LIVER: There are no focal hepatic lesions nor dilatation of intrahepatic ducts. GALLBLADDER/BILIARY: No obvious gallbladder pathology. CBD is not dilated. PANCREAS: No evidence of pancreatic mass nor dilatation of the pancreatic duct. SPLEEN: Spleen is not enlarged. There are no intrasplenic lesions. Splenic and portal veins are patent. ADRENALS: There are no significant adrenal masses. KIDNEYS: Small benign cyst noted in the inferior pole of the right kidney. No calculi nor hydronephrosis. No solid renal masses. ABDOMINAL AORTA: The abdominal aorta is not enlarged. LYMPH NODES: There is no retroperitoneal nor para-aortic adenopathy. No obvious mesenteric masses. ABDOMINAL WALL: No evidence of significant anterior abdominal wall hernia. GI: There is no evidence of bowel obstruction, free air, nor abscess. PELVIS: LYMPH NODES: There is no intrapelvic nor inguinal adenopathy. GI: No evidence of appendicitis.There is sigmoid diverticuli but no evidence of acute diverticulitis. URINARY BLADDER: No calculi nor masses evident REPRODUCTIVE: Uterus size normal. Some dilated veins are noted in the left adnexa, probably mild element of pelvic congestion syndrome. No free fluid. No abnormal adnexal masses. OSSEOUS: No significant osseous lesions. IMPRESSION: 1. No evidence of aortic aneurysm nor aortic dissection, as per request. 2. There is a compression fracture at superior endplate of T10 which was not evident on CT scan of January 2024. There is approximately 30 percent height loss. There is mild posterior bulging of the cortex but no prominent retropulsion and no significant central canal stenosis at this level. Report called by myself to ER 10/29/2024 at 1:35 p.m. RADIATION DOSE DELIVERED: 734.64mGy.cm Total DLP DATA REPOSITORY: All CT scans at this facility are submitted to the National Radiology Data Registry (NRDR) Dose Index Registry (DIR) with the [employer] (ACR). RADIATION OPTIMIZATION: All CT scans at this facility use at least one of these dose optimization techniques: automated exposure control; mA and/or kV adjustment per patient size (includes targeted exams where dose is matched to clinical indication); or iterative reconstruction. Related Data Home Medications ?Medication ?Instructions ?Recorded ?Confirmed Lexapro 10 mg tablet (escitalopram 10 mg PO DAILY 06/2110/29/24 oxalate) bupropion HCl 75 mg tablet 100 mg PO DAILY 09/05/17 (Wellbutrin) fish oil-dha-epa 1,200 mg-144 1 ea PO DAILY 09/11/17 0 10/29/24 mg-216 mg capsule magnesium citrate 100 mg tablet 200 mg PO DAILY 10/29/24 multivitamin (Daily Multi-Vitamin 1 ea PO DAILY 10/29/24 tablet) cholecalciferol (vitamin D3) 50 4,000 unit PO DAILY 10/29/24 mcg (2,000 unit) capsule (Vitamin D3) ketoconazole 2 %-hydrocortisone 1 applic topical DAILY PRN 01/21/21 10/29/24 2.5 % topical cream hydrocortisone 2.5 % topical cream 1 applic topical BI D PRN 05/04/21 10/29/24 levothyroxine 75 mcg tablet 100 mcg PO DAILY 01/10/22 10/29/24 estradiol 0.01% (0.1 mg/gram) 1 appful vaginal .COMPLE X #42.5 03/26/22 10/29/24 vaginal cream grams escitalopram oxalate 10 mg tablet 10 mg PO DAILY 03/2810/29/24 estradiol 0.01% (0.1 mg/gram) 1 g vaginal QWEEK 10/29/24 vaginal cream daridorexant 25 mg tablet (Quviviq) 25 mg PO QHS #5 ta bs 10/29/24 olmesartan 5 mg tablet (Benicar) 10 mg PO DAILY 10/29/24 Previous Rx's ?Medication ?Instructions ?Recorded estradiol 0.01% (0.1 mg/gram) 1 appful vaginal .COMPLE X #42.5 03/26/22 vaginal cream grams daridorexant 25 mg tablet (Quviviq) 25 mg PO QHS #5 ta bs 10/29/24 Allergies Allergy/AdvReac Type Severity Reaction Status Date / Time nitrofurantoin (From Allergy Intermediate Rash, Verified 10/29/24 12:00 Macrobid) doesn't feel well zolpidem (From Ambien) Allergy Intermediate unknown Verified 10/29/24 12:00 General Stated Complaint: Chest Pain KUSHAL: 3 Course Vital Signs Vital signs: Vital Signs Temperature 36.7 C 10/29/24 10:37 Pulse 78 10/29/24 10:37 Respiratory Rate 18 10/29/24 10:37 Blood Pressure 117/73 10/29/24 10:37 Pulse Oximetry 97 10/29/24 10:37 Temperature 36.7 C 10/29/24 10:37 Temperature Source Temporal Artery Scan 10/29/24 10:37 Pulse 78 10/29/24 10:37 Respiratory Rate 18 10/29/24 11:09 Respiratory Effort Normal, Non-Labored 10/29/24 11:09 Respiratory Depth Normal 10/29/24 11:09 Respiratory Pattern Normal 10/29/24 11:09 Blood Pressure 117/73 10/29/24 10:37 Blood Pressure Position Sitting 10/29/24 10:37 Pulse Oximetry 97 10/29/24 10:37 Oxygen Delivery Method Room Air 10/29/24 10:37 Oxygen Flow Rate 0 10/29/24 10:37 Lab/Test Results Lab/Test Results: Laboratory Tests Range/Units 10/29/24 11:02 WBC (4.4-10.8) 10^3/uL 5.21 RBC (3.93-5.22) 10^6/uL 4.24 Hgb (11.2-15.7) g/dL 12.9 Hct (36.0-46.0) % 38.5 MCV (80-95) fL 91 MCH (27.0-33.0) pg 30.4 MCHC (32.0-36.0) % 33.5 RDW (11.7-14.6) % 12.9 Plt Count (130-400) 10^3/uL 211 MPV (8.0-11.0) fL 11.0 Immature Gran % % 0.2 Neutrophils % % 49.6 Lymphocytes % % 42.6 Monocytes % % 5.8 Eosinophils % % 1.2 Basophils % % 0.6 Nucleated RBC % (0.0-0.3) % 0.0 Absolute Neutrophils (1.2-6.7) 10^3/uL 2.59 Absolute Lymphocytes (1.2-3.4) 10^3/uL 2.22 Absolute Monocytes (0.1-0.8) 10^3/uL 0.30 Absolute Eosinophils (0.0-0.7) 10^3/uL 0.06 Absolute Basophils (0.0-0.2) 10^3/uL 0.03 Sodium Cancelled Potassium Cancelled Chloride Cancelled Carbon Dioxide Cancelled Anion Gap Cancelled BUN Cancelled Creatinine Cancelled Est GFR (CKD-EPI 2020) Cancelled Glucose Cancelled Calcium Cancelled Magnesium Cancelled Total Bilirubin Cancelled AST Cancelled ALT Cancelled Alkaline Phosphatase Cancelled Troponin I Cancelled NT-Pro-B Natriuret Pep Cancelled Total Protein Cancelled Albumin Cancelled PFSH All Active Problems (Updated 10/29/24 @ 14:12 by Gus Cabrera MD) Compression fracture of T10 vertebra (Acute) Insomnia (Acute) Impaired concentration (Acute) Atypical chest pain (Acute) Essential tremor (Acute) Left ureteral stone (Acute) Irritable bowel syndrome with diarrhea (Acute) BRBPR (bright red blood per rectum) (Acute) Diverticulosis (Acute) Irregular bowel habits (Acute) Medical History Insomnia Anxiety Atrophic vaginitis Overweight Daytime somnolence Hyperlipidemia Dizziness Flank pain Umbilical hernia Abdominal pain Pelvic pain Dermatitis Encounter for gynecological examination Vaginal atrophy Hx of hematuria IBS (irritable bowel syndrome) Cyst of right kidney Hypothyroid Depression Osteoporosis History of kidney stones Female rectocele with enterocele Elevated LFTs Lymphedema of right arm Ductal carcinoma in situ (DCIS) of right breast recurrent breast cancer Surgical History H/O tubal ligation S/P colonoscopy (~11/26/18) History of section H/O bilateral mastectomy Family History Mother Hypertension Breast cancer Brother Alcohol use disorder Diabetes Father Alcohol use disorder Diabetes Son Alcohol use disorder Social History Smoking/Tobacco Use Status: Never Smoking risk assessment performed?: Yes Alcohol Intake: current Alcohol Intake frequency: 0-2 drinks per day Alcohol type: wine Drug use: Never Substance use type: does not use Household members: spouse and other Details: H-[employer]igre. 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 Sexually active: Yes (does not have vaginal intercourse 2/2 vaginal dryness.) Current gender identity: female Do you feel safe at home: Yes Do you feel safe in your relationship?: Yes Additional Social history: S-Brad. 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 resides in [facility], 2 children Female Reproductive History Menstrual Menopause type: natural History History 6 Para 2 Hx # Term Pregnancies 2 Multiple births Hx # Pregnancies Ectopic pregnancies AB induced Hx Number of Living Children AB spontaneous 4
[2024-10-29 11:31] LABS: INR 1.0 (0.9-1.1); PTT Activated 23.2 sec (20.6-30.2); Prothrombin Time 9.7 sec (9.1-11.1)
[2024-10-29 11:59] LABS: D-Dimer 501 ng/mlFEU (<500)
[2024-10-29 12:07] LABS: ALT 32 U/L (14-59); AST 24 U/L (15-37); Albumin 3.7 g/dL (3.4-5.0); Alkaline Phosphatase 65 U/L (46-116); Anion Gap 8.6 mmol/L (3-11); BUN 22 mg/dL (7-18); Bilirubin, Total 0.3 mg/dL (0.2-1.0); CO2 26.4 mmol/L (21.0-32.0); Calcium 9.7 mg/dL (8.5-10.1); Chloride 106 mmol/L (98-107); Estimated GFR 69.64 (mL/min/1.73m2); Glucose 101 mg/dL (74-106); Magnesium 2.1 mg/dL (1.8-2.4); NT-proBNP 35 pg/mL (<300); Potassium 4.1 mmol/L (3.5-5.1); Sodium 141 mmol/L (136-145); Total Protein 7.4 g/dL (6.4-8.2); Troponin I 5 ng/L (<or=51)
[2024-10-29] MEDS: Lidocaine 1% Pres-Free W/EPI 1/200,000 30 ML VIAL IJ (12:33)
[2024-10-29] MEDS: Normal Saline - Diluent 50 ML VIAL IJ (12:42)
[2024-10-29] MEDS: Normal Saline Flush 10 ML SYR IVP (12:43)
[2024-10-29] MEDS: Omnipaque 350 MG/ML 100 ML BTL IJ (12:43)
--- NOTE | 2024-10-29 12:52 | DI.CT_ITS ---
Exam(s) CT HEAD WO EXAM: CT HEAD WO CLINICAL HISTORY: Headache. TECHNIQUE: Imaging Protocol: Axial computed tomography images with coronal and sagittal reformatted images were created and reviewed COMPARISON: CT CT HEAD WO from 10/29/2019 FINDINGS: There are no skull fractures. There is no fluid in the visualized paranasal sinuses. There is no evidence of intracranial hemorrhage, mass effect, or shift of midline structures. There are no extra-axial fluid collections. The ventricles are not enlarged or shifted and there is no blood within the ventricular system nor within the basal cisterns. Mild area of subtle hypodensity in the left periventricular white matter is unchanged from CT scan of 2019. IMPRESSION: As above but no acute intracranial findings on this non few CT scan of the brain and no significant change compared to the prior CT scan of October 2019. Called to ER 10/29/2024 at 1:25 p.m. RADIATION DOSE DELIVERED: 852.62mGy.cm Total DLP DATA REPOSITORY: All CT scans at this facility are submitted to the National Radiology Data Registry (NRDR) Dose Index Registry (DIR) with the [employer] (ACR). RADIATION OPTIMIZATION: All CT scans at this facility use at least one of these dose optimization techniques: automated exposure control; mA and/or kV adjustment per patient size (includes targeted exams where dose is matched to clinical indication); or iterative reconstruction.
[2024-10-29 12:55] LABS: Troponin I 5 ng/L (<or=51)
== END 2024-10-29 14:32 | disposition home or self-care (01) ==
PROVIDERS: Emergency Provider General Practice; PCP Family Medicine
DX: R07.9 Chest pain, unspecified (principal); G47.00 Insomnia, unspecified; S22.070A Wedge compression fracture of T9-T10 vertebra, initial encounter for closed fracture; X58.XXXA Exposure to other specified factors, initial encounter
CPT/HCPCS: 99285; 99284; 36415; 71275; 80053; 93005; 70450; 74174; 83735; 83880; 84484; 85025; 85379; 85610; 85730; 93010; J2004; J3490

== ENCOUNTER 2024-12-17 00:54 | Outpatient (CLI) | payer MEDICARE, SELFPAY ==
--- NOTE | 2024-12-17 | DI.DEXA_ITS ---
Exam(s) XR DEXA BONE DENSITY W/WO SERENA EXAM: XR DEXA BONE DENSITY W/WO SERENA CLINICAL HISTORY: ASYMPTOMATIC MENOPAUSAL STATE,Z78.0 TECHNIQUE: Routine DEXA evaluation of the lumbar spine, hip, or forearm. COMPARISON: DX DEXA BONE DENSITY WITH SERENA from 11/20/2014 FINDINGS: Performed on a Hologic unit. Lateral image: No compression fracture evident. Lumbar Spine total T-score: -3.8. This is osteoporosis range. Prior reading in 2014 was -3.3. Hip total T-score:-2.2. This is identical reading to November 2014. Independent reading at the level of the femoral neck yields T-score of -2.8 which is in the osteoporosis range. The prior reading at this level in 2014 was -2.4 Forearm total T-score: -2.3 which is osteopenia range. Prior reading in 2014 was -1.2 IMPRESSION: Bone mineral density measures in the osteoporosis range in the lumbar spine I implying high risk for fracture. Bone mineral density measures in the osteoporosis range for the hip femoral neck implying high risk for fracture. Bone mineral density in the form-wrist is in the osteopenia range, similar to previous Note: Any spine fracture indicates 5x risk for subsequent spine fracture and 2x risk for subsequent hip fracture. World Health Organization criteria for BMD interpretation classify patients: Normal...... T- Score at or above -1.0 Osteopenic... T- Score between -1.0 and -2.5 Osteoporosis... T-Score at or below -2.5
== END 2024-12-17 01:14 ==
LOC: DI 00:54
PROVIDERS: PCP Family Medicine; Visit Provider Family Medicine
DX: Z78.0 Asymptomatic menopausal state (principal)
CPT/HCPCS: 77080

== ENCOUNTER → 2025-02-03 00:16 | Outpatient (CLI) | payer MEDICARE, SELFPAY ==
--- NOTE | 2025-02-03 | DI.RAD_ITS ---
Exam(s) XR CERVICAL SPINE COMP 4-5V EXAM: XR CERVICAL SPINE COMP 4-5V CLINICAL HISTORY: COMP FX T 10,S22.070D,NECK PAIN. TECHNIQUE: 2D digital imaging was performed. There are 5 images obtained. COMPARISON: No exams were available for comparison FINDINGS: BONES: No fracture or destructive lesion. There are small osteophytes seen at C6-C7. There is mild narrowing of the left neural foramen at C5-6 and C6-C7. DISKS: There is mild disc space narrowing at C6-C7. ALIGNMENT: Cervical spinal alignment is within normal limits. The odontoid and atlantoaxial articulations are normal. SOFT TISSUE: Normal. The lung apices are clear. IMPRESSION: 1. Degenerative changes seen in the cervical spine. 2. There is no acute fracture or subluxation in the cervical spine. DATA REPOSITORY: RADIATION DOSE DELIVERED:
--- NOTE | 2025-02-03 | DI.RAD_ITS ---
Exam(s) XR THORACIC SPINE COMPLETE EXAM: XR THORACIC SPINE COMPLETE CLINICAL HISTORY: COMP FX T 10,S22.070D. TECHNIQUE: 2D digital imaging was performed. Three views. COMPARISON: CT CT THORAX ABD/PEL CTA from 10/29/2024 CR XR DEXA BONE DENSITY W/WO SERENA from 12/17/2024 FINDINGS: BONES: There is no fracture or destructive lesion. Stable T10 compression fracture. ALIGNMENT: Within normal limits. DISKS: Minimal endplate osteophytes. Interverebral disc spaces are maintained. SOFT TISSUE: Visualized lungs are clear. IMPRESSION: Stable T10 compression fracture. DATA REPOSITORY: RADIATION DOSE DELIVERED:
== END ==
LOC: DI 00:16
PROVIDERS: PCP Family Medicine; Visit Provider Family Medicine
DX: S22.070D Wedge compression fracture of T9-T10 vertebra, subsequent encounter for fracture with routine healing (principal); M54.2 Cervicalgia; X58.XXXD Exposure to other specified factors, subsequent encounter
CPT/HCPCS: 72050; 72072